=== PATIENT | female | born 1940 | race Caucasian/White ===

== ENCOUNTER 2022-02-12 23:04 | Outpatient (REF) | payer MEDICARE, BC, SELFPAY ==
[2022-02-13 01:40] LABS: Free T4 Free Thyroxine* 1.82 ng/dL (0.70-1.85)
== END 2022-02-12 23:05 | disposition home or self-care (01) ==
LOC: NPINS 23:04
PROVIDERS: PCP Family Medicine
DX: E03.9 Hypothyroidism, unspecified (principal)
CPT/HCPCS: 84439; 84443

== ENCOUNTER 2022-05-13 13:55 | Outpatient (CLI) | payer MEDICARE, BC, SELFPAY ==
--- OUTSIDE RECORDS SUMMARY | 2022-05-13 13:59 | XMS_ITS ---
:1940 Author Care Team Providers Name Role Phone Charlotte Smith Primary Care Provider Unavailable Allergies Code Code System Name Reaction Severity Status Onset Alendronate ? ? Active ? 723 RxNorm Amoxicillin ? ? Active ? 1191 RxNorm Aspirin ? ? Active ? 69603 RxNorm Atorvastatin ? ? Active ? 2551 RxNorm Ciprofloxacin ? ? Active ? 2582 RxNorm Clindamycin ? ? Active ? 4099 RxNorm Estrogens, Conjugated ? ? Active ? 5487 RxNorm Hydrochlorothiazide ? ? Active ? Losartan ? ? Active ? 6918 RxNorm Metoprolol ? ? Active ? [id number] RxNorm Myrbetriq Swelling ? Active ? 7258 RxNorm Naproxen ? ? Active ? Nitroimidazoles ? ? Active ? Oxybutynin Dizziness ? Active ? Penicillins Itching ? Active ? Sambucus Elderberry Immune ? ? Act kalyan ? Sulfa (Sulfonamide ? ? Active ? Antibiotics) 35062 RxNorm Sulindac ? ? Active ? 44808 RxNorm Tetracycline ? ? Active ? Notes: Sulfa Cholecalciferol Blood Group Specific Substance Medications Name Status Start Date Stop Date ? ? benzonatate 100 mg capsule Active ? Not a vailable TAKE ONE OR TWO CAPSULES BY MOUTH THREE TIMES DAILY NEEDED betamethasone dipropionate 0.05 % topical ointment Completed ? 11/12/2021 APPLY TOPICALLY TO THE AFFECTED AREA(S) TWICE DAILY FOR 7 DAYS, THEN EVERY OTHER DAY FOR 7 DAYS, THEN 2-3 TIMES PER WEEK. buspirone Completed ? 08/03/2021 buspirone 5 mg tablet Active ? Not availa ble TAKE ONE TABLET BY MOUTH THREE TIMES DAILY calcium 166.75 mg-vit D3 166.75 unit-vit C-vit K2-minerals capsu le Active ? Not available Take by oral route. cephalexin 500 mg capsule Completed ? 2021 TAKE 1 CAPSULE BY MOUTH TWICE DAILY clobetasol 0.05 % topical ointment Active ? Not available APPLY 1GM TWICE WEEKLY As Needed for lichen sclerosis compounded medication Active ? Not availa ble Estriol Vaginal Cream 0.1% (1mg/mL) 1 fingerful topically 3 night/week compounded medication Active ? Not availa ble Estriol Vaginal Cream 0.1% (1mg/mL) 1 fingerful topically 3 night/week cyclosporine 0.05 % eye drops in a dropperette Active ? Not available Place 1 Drop into both eyes every 12 hours. diltiazem 120 mg tablet Active ? Not avai lable Take 1 tablet 3 times a day by oral route. diltiazem CD 240 mg capsule,extended release 24 hr Active ? Not available TAKE 1 CAPSULE BY MOUTH ONE TIME DAILY fluocinolone Active ? Not available fluocinonide 0.05 % topical cream Active ? Not available APPLY 1 GRAM TOPICALLY TO RASH ON LEGS DAILY NEEDED fosfomycin tromethamine 3 gram oral packet Active ? Not available take 1 pack mixed in 6 oz of water; repeat in 72 hours. furosemide 20 mg tablet Active ? Not avai lable Gemtesa 75 mg tablet Active ? Not availab le TAKE 1 TABLET BY MOUTH ONE TIME DAILY levothyroxine Completed ? 08/03/2021 lorazepam Completed ? 08/03/2021 lorazepam 0.5 mg tablet Active ? Not avai lable TAKE 1/2 TABLET BY MOUTH TWICE DAILY NEEDED Miralax 17 gram oral powder packet Active ? Not available Take 1 packet every day by oral route. Myrbetriq 50 mg tablet,extended release Completed ? 11/12/2021 1 tablet po daily nitrofurantoin monohydrate/macrocrystals 100 mg capsule Complete d ? 08/03/2021 TAKE ONE CAPSULE BY MOUTH TWICE DAILY FOR 7 DAYS omeprazole Completed ? 08/03/2021 omeprazole 20 mg capsule,delayed release Active ? Not available TAKE 1 CAPSULE BY MOUTH ONE TIME DAILY pilocarpine 1 % eye drops Completed ? 2021 INSTILL 1 DROP INTO AFFECTED EYE(S) BY OPHTHALMIC ROUTE EVERY 1 2 HOURS pilocarpine 5 mg tablet Active ? Not avai lable TAKE ONE TABLET BY MOUTH THREE TIMES DAILY prednisone Completed ? 08/03/2021 prednisone 10 mg tablet Active ? Not avai lable TAKE ONE TABLET BY MOUTH EVERY OTHER DAY Probiotic Active ? Not available Prolia 60 mg/mL subcutaneous syringe Active ? Not available INJECT CONTENTS OF 1 SYRINGE (60 MG) SUBCUTANEOUSLY ONCE EVERY SIX MONTHS. Synthroid 112 mcg tablet Active ? Not dre ilable TAKE 1 TABLET BY MOUTH ONE TIME DAILY Theracran 650 mg capsule Active ? Not dre ilable Take 1 capsule every day by oral route. valacyclovir 1 gram tablet Completed ? 08/03 TAKE ONE TABLET BY MOUTH THREE TIMES DAILY warfarin Completed ? 08/03/2021 warfarin 2.5 mg tablet Active ? Not avail able TAKE 1 TABLET BY MOUTH ONE TIME DAILY Problems Name Status Onset Date Source ? 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 Hyperlipidemia Active 04/15/2020 ? 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 Gastroesophageal Reflux Disease Active 04/15/2020 ? Procedures Date Name Performed by ? 09/17/2019 Implant Neuroelectrodes Information not available Notes: 09/17/2019 - IMPLANT NEUROELECT RODES 11/28/2018 Insert Bladder Catheter Information not available Notes: 11/28/2018 - INSERT BLADDER CAT HETER 11/13/2014 Colonoscopy Information not avai lable 11/28/2008 Total Hip Arthroplasty Information not a vailable Notes: 11/28/2008 - TOTAL HIP ARTHROPL ASTY 11/29/1999 Unlisted Procedure Breast Information no t available Notes: 11/29/1999 - BREAST SURGERY PRO CEDURE ? Appendectomy Add-on Information not avai [facility] Notes: APPENDECTOMY ADD-ON Results Lab Results Date Name Specimen Result Interpretation Description Value Range Status Address ? 09/14/2021 Urinalysis, UR ? Color yellow yellow Final [place] [facility]: [address] ? ? UR ? Appearance clear clear Final [place] [facility]: [address] ? ? UR ? Glucose negative negative Final [place] [facility] mg/dL mg/dL [facility]: [address] [address], [place] ? ? UR ? Bilirubin negative negative Final [place] [facility]: [address] [address], [place] ? ? UR ? Ketones negative negative Final [place] [facility] mg/dL mg/dL [facility]: [address] [address], [place] ? ? UR ? Sp. [place] 1.010 1.010-1.0 Final [place] [facility]: [address] [address], [place] ? ? UR ? pH -[facility] 6.0 5.0-8.0 Final [place] [facility]: [address] [address], [place] ? ? UR ? Protein negative negative Final [place] [facility] mg/dL mg/dL [facility]: [address] [address], [place] ? ? UR ? Urobilinogen 0.2 normal Final [place] [facility]: [address] [address], [place] ? ? UR ? Nitrites negative negative Final [place] [facility]: [address] [address], [place] ? ? UR ABNORMAL Blood small negative Final [place] [facility]: [address] ? ? UR ? Leukocytes negative negative Final [place] [facility]: [address] [address], [place] ? ? UR ? Performed by carlitos Ruiz ? Final [place] [facility] [address] [address], [place] ? ? UR ? Total Urine 20cc /mL ? Final [place] Volume (mL) [facility]: [address] 09/14/2021 Urinalysis, ? U-WBC 0 - 2 0 - 2 Final [place] Microscopic [hpf] [hpf] [facility]: [address] ? ? ? U-RBC 0 - 2 0 - 2 Final [place] [hpf] [hpf] [facility]: [address] ? ? ABNORMAL Bacteria small negative Final [place] [hpf] [hpf] [facility]: [address] ? ? ? Squamous Epi small negative, Final [place] /lpf small Urology - /[facility]: [address] 08/03/2021 Urinalysis, UR ? Color yellow yellow Final [place] Dipstick [facility]: [address] ? ? UR ? Appearance clear clear Final [place] [facility]: [address] [address], [place] ? ? UR ? Glucose negative negative Final [place] [facility] mg/dL mg/dL [facility]: [address] [address], [place] ? ? UR ? Bilirubin negative negative Final [place] [facility]: [address] [address], [place] ? ? UR ? Ketones negative negative Final [place] [facility] mg/dL mg/dL [facility]: [address] [address], [place] ? ? UR ? Sp. [place] 1.010 1.010-1.0 Final [place] [facility]: [address] [address], [place] ? ? UR ? pH -[facility] 5.5 5.0-8.0 Final [place] [facility]: [address] ? ? UR ? Protein negative negative Final [place] [facility] mg/dL mg/dL [facility]: [address] [address], [place] ? ? UR ? Urobilinogen 0.2 normal Final [place] [facility]: [address] [address], [place] ? ? UR ? Nitrites negative negative Final [place] [facility]: [address] [address], [place] ? ? UR ABNORMAL Blood small negative Final [place] [facility]: [address] [address], [place] ? ? UR ABNORMAL Leukocytes trace negative Final [place] [facility]: [address] ? ? UR ? Performed by aislinn Ingram ? Final [place] [facility]: [address] [address], [place] ? ? UR ? Total Urine 20 /mL ? Final [place] Volume (mL) [facility]: [address] [place] [address] 08/03/2021 Urinalysis, ? U-WBC 0 - 2 0 - 2 Final [place] Microscopic [hpf] [hpf] [facility]: [address] ? ? ? U-RBC 0 - 2 0 - 2 Final [place] [hpf[facility]hpf[facility] [address] [address], [place] ? ? ABNORMAL Bacteria small negative Final [place] [hpf] [hpf] [facility]: [address] [facility] [address], [place] ? ? ? Squamous Epi small negative, Final [place] [facility] small [facility]: [address] [place] [address], [place] Past Encounters 04/09/2022 Overactive Bladder Charlotte Smith MD: [address] [place] [phone], Ph. 11/12/2021 Overactive Bladder; Urge Incontinence of Urine; Nocturia Afsaneh Bui PA: [address] [place] [phone], Ph. 09/14/2021 Overactive Bladder; Urge Incontinence of Urine; Nocturia Afsaneh Bui PA: [address] [place] [phone], Ph. 09/14/2021 Overactive Bladder Charlotte Smith MD: [address] [place] [phone], Ph. 08/03/2021 Overactive Bladder; Urge Incontinence of Urine; Nocturia Charlotte Smith MD: [address] [place] [phone], Ph. 11/26/2020 Overactive Bladder; Nocturia Charlotte Smith MD: [address] [place] [phone], Ph. 11/11/2020 Overactive Bladder; Urge Incontinence of Urine Charlotte Smith MD: [address] [facility], [address] [phone], Ph. Social History Tobacco Smoking Status Never Smoker Vaccine List Vaccine Type pneumococcal conjugate PCV 13 07/04/2017 Plan of Care Patient Instructions Test each program for at least 2 weeks, adjusting amplitude as needed. May remain on a program as long as it is effective. Re turn as needed for reprogramming. Test each program for at least 2 weeks, adjusting amplitude as needed. May remain on a program as long as it is effective. Re turn as needed for reprogramming. Test each program for at least 2 weeks, adjusting amplitude as needed. May remain on a program as long as it is effective. Re turn as needed for reprogramming. Reminders Provider Appointments None recorded. ? ? Lab None recorded. ? ? Referral None recorded. ? ? Procedures None recorded. ? ? Surgeries None recorded. ? ? Imaging None recorded. ? ? Vitals 04/09/2022 11:00AM PROCEDURE 45 Height Weight BMI 5 ft 1 in 147 lbs 27.8 kg/m2 11/12/2021 10:30AM ESTABLISHED VIDEO VISIT 30 Height Weight BMI 5 ft 1 in 147 lbs 27.8 kg/m2 09/14/2021 09:30AM ESTABLISHED 30 Height Weight BMI 5 ft 2.5 in 147 lbs 26.5 kg/m2 09/14/2021 08:45AM ESTABLISHED 45 Height Weight BMI 5 ft 2.5 in 147 lbs 26.5 kg/m2 08/03/2021 10:30AM ESTABLISHED 15 Height Weight BMI 5 ft 2.5 in 151 lbs 27.2 kg/m2 11/26/2020 09:30AM ESTABLISHED 45 Height Weight BMI 5 ft 2.5 in 151 lbs 27.2 kg/m2 11/11/2020 10:30AM ESTABLISHED 15 Height Weight BMI 5 ft 2 in 144 lbs 26.3 kg/m2 05/13/2020 09:00AM POST OP 15 Height Weight BMI 5 ft 2 in 144 lbs 26.3 kg/m2 04/15/2020 09:00AM POST OP 15 Height Weight BMI 5 ft 2 in 144 lbs 26.3 kg/m2
--- OUTSIDE RECORDS SUMMARY | 2022-05-13 13:59 | XMS_ITS | Encounter Summary ---
:1940 Author Reason for Visit Overactive Bladder; Interstim Assessment and Plan 1. Overactive bladder chronic stable Discussion Note Patient states that Gemtesa samples wer e effective, but the rx was too expensive, so she stopped taking. She would like to tr y the Gemtesa again, but wonders of it is ok t take every other day, to spread the pr escription out, and decrease the expense. I will ask MICHELET Blanco. Patient educational handouts: No information available. Plan of Care Patient Instructions Test each [...] ? ? Imaging None recorded. ? ? Medications Name Start Date ? ? benzonatate 100 mg capsule ? TAKE ONE OR TWO CAPSULES BY MOUTH THREE TIMES DAILY A S NEEDED buspirone 5 mg tablet ? TAKE ONE TABLET BY MOUTH THREE TIMES DAILY calcium 166.75 mg-vit D3 166.75 unit-vit C-vit K2-mine rals capsule ? Take by oral route. clobetasol 0.05 % topical ointment ? APPLY 1GM TWICE WEEKLY As Needed for lichen sclerosis compounded medication ? Estriol Vaginal Cream 0.1% (1mg/mL) 1 fingerful topically 3 night/week compounded medication ? Estriol Vaginal Cream 0.1% (1mg/mL) 1 fingerful topically 3 night/week cyclosporine 0.05 % eye drops in a dropperette ? Place 1 Drop into both eyes every 12 hours. diltiazem 120 mg tablet ? Take 1 tablet 3 times a day by oral route. diltiazem CD 240 mg capsule,extended release 24 hr ? TAKE 1 CAPSULE BY MOUTH ONE TIME DAILY fluocinolone ? fluocinonide 0.05 % topical cream ? APPLY 1 GRAM TOPICALLY TO RASH ON LEGS DAILY NEEDE D fosfomycin tromethamine 3 gram oral packet ? take 1 pack mixed in 6 oz of water; repeat in 72 hour s. furosemide 20 mg tablet ? TAKE ONE TABLET BY MOUTH DAILY NEEDED FOR EDEMA Gemtesa 75 mg tablet ? TAKE 1 TABLET BY MOUTH ONE TIME DAILY lorazepam 0.5 mg tablet ? TAKE 1/2 TABLET BY MOUTH TWICE DAILY NEEDED Miralax 17 gram oral powder packet ? Take 1 packet every day by oral route. omeprazole 20 mg capsule,delayed release ? TAKE 1 CAPSULE BY MOUTH ONE TIME DAILY pilocarpine 5 mg tablet ? TAKE ONE TABLET BY MOUTH THREE TIMES DAILY prednisone 10 mg tablet ? TAKE ONE TABLET BY MOUTH EVERY OTHER DAY Probiotic ? Prolia 60 mg/mL subcutaneous syringe ? INJECT CONTENTS OF 1 SYRINGE (60 MG) SUBCUTANEOUSLY O NCE EVERY SIX MONTHS. Synthroid 112 mcg tablet ? TAKE 1 TABLET BY MOUTH ONE TIME DAILY Theracran 650 mg capsule ? Take 1 capsule every day by oral route. warfarin 2.5 mg tablet ? TAKE 1 TABLET BY MOUTH ONE TIME DAILY Medications Administered None recorded. Vitals Height Weight BMI 5 ft 1 in 147 lbs 27.8 kg/m2 Results Lab Results None recorded. Allergies Code Code System Name Reaction Severity Onset Alendronate ? ? ? 723 RxNorm Amoxicillin ? ? ? 1191 RxNorm Aspirin ? ? ? 37200 RxNorm Atorvastatin ? ? ? 2551 RxNorm Ciprofloxacin ? ? ? 2582 RxNorm Clindamycin ? ? ? 4099 RxNorm Estrogens, Conjugated ? ? ? 5487 RxNorm Hydrochlorothiazide ? ? ? Losartan ? ? ? 6918 RxNorm Metoprolol ? ? ? [id number] RxNorm Myrbetriq Swelling ? ? 5465 RxNorm Naproxen ? ? ? Nitroimidazoles ? ? ? Oxybutynin Dizziness ? ? Penicillins Itching ? ? Sambucus Elderberry Immune ? ? ? Sulfa (Sulfonamide Antibiotics) ? ? ? 67477 RxNorm Sulindac ? ? ? 48390 RxNorm Tetracycline ? ? ? Notes: Sulfa Cholecalciferol Blood Group Specific Substance Problems Name Status Onset Date Source ? [...] CEDURE ? Appendectomy Add-on Information not avai lable Notes: APPENDECTOMY ADD-ON Vaccine List Vaccine Type pneumococcal conjugate PCV 13 07/04/2017 Social History Tobacco Smoking Status Never Smoker What is your level of alcohol consumption? None Marital status Has tobacco cessation counseling been provided? N Are you currently employed? N Could you be ? N Are you sexually active? N Preferred Language Emir[place] What was the date of your most recent tobacco screening? 06/2022 Ethnicity Not / What is your level of caffeine consumption? Heavy Do you or have you ever used any other forms of tobacco or N nicotine? Do you use any illicit or recreational drugs? N Race White Recreational Drug Use N What is your relationship status? Functional Status Unknown. Past Encounters 04/09/2022 Overactive Bladder Charlotte Smith MD: [address] [facility] , [address] [phone], Ph. History of Present Illness None recorded. Review of Systems None recorded. Physical Exam None recorded.
--- OUTSIDE RECORDS SUMMARY | 2022-05-13 13:59 | XMS_ITS | Clinical Summary ---
:1940 Author Organization [facility] [place] [address] Care Team Providers Name Role Phone Kd Restrepo MD Unavailable Cody Veliz MD Unavailable Clinic, No Pcp Or Primary Care Provider Unavailable Allergies Active Allergy Reactions Severity Noted Date Comments Amoxicillin 01/19/2007 Aspirin Rash, Itching 01/20/2006 Atorvastatin Myalgia 12/27/2014 Blood-Group Specific Other - Describe In High 09/01/2016 Patient has Substance Comment Field Anti-D. Blood product orders may be delayed. Dra munoz one red top and two purple top tubes for all T ype and Screen/Type and Crossmatch orders. Ciprofloxacin Rash 05/31/2012 Clindamycin Angioedema 06/28/2014 Sulindac Anaphylaxis 04/30/2014 Nitroimidazoles Rash 05/31/2012 Alendronate Sodium Arthralgia 11/30/2017 Hydrochlorothiazide Rash 05/04/2010 Cephalexin Hives 09/22/2020 Losartan Rash 11/08/2014 Nitrofurantoin Flushing, Headache 04/18/2020 Monohyd/M-Cryst Naproxen GI Bleeding 10/11/2006 Oxybutynin Dizziness 03/30/2021 Oxybutynin Chloride Agitation, Anxiety, 01/19/2019 Dizziness, Headache, Nausea Only Penicillins Rash, Itching 01/20/2006 Conjugated Estrogens Rash 04/11/2015 Sulfa (Sulfonamide Itching 01/20/2006 Antibiotics) Tetracycline *Unknown 10/11/2006 Metoprolol Rash 10/10/2014 Cholecalciferol (Vitamin D3) Diarrhea 01/06/2018 Medications Medication Sig Dispensed Refills Start End Status Date Date FOLIC ACID 800 MCG 1 tab daily 0 10/25/19 Active TABIndications: 08 Sicca syndrome (HC) multivitamin (MVI) Take 1 tablet by 0 05/04/20 Active tablet mouth once 10 daily. fluocinonide 0.05% Apply topically 1 Tube 0 12/20/19 Active topical (LIDEX) 0.05 to affected 14 % cream area(s) 2 times daily. LACTOBACILLUS Take 1 capsule 0 A ctive ACIDOPHILUS by mouth once (PROBIOTIC ORAL) daily. clobetasol 0.05% Apply topically 1 Tube 3 01/21/20 Active (TEMOVATE 0.05% daily for 12 17 OINTMENT) 0.05 % weeks, then 3 ointmentIndications: times a week. Lichen sclerosus [employer], For personal 1 Packet 0 01/21/20 A ctive MISCELLANEOUS use. Length: 17 (GRADUATED calf Strength: COMPRESSION 20-30 mmHg STOCKINGS)Indication Circumference in s: Varicose vein of cm: For calf: leg Ankle 22cm, Calf 36cm, polyethylene glycol Daily as needed 0 Active (MIRALAX) 17 g powder for solution calcium Take 1 tablet by 60 tablet 0 12/01/19 Act kalyan carbonate-vitamin mouth 2 times 18 D3, 500 mg-400 daily before units, (OSCAL 500 + meals. D) tabletIndications: Age-related osteoporosis with current pathological fracture, sequela PROLIA 60 mg/mL USE DIRECTED 1 05/29/20 Active injection EVERY SIX MONTHS 18 acetaminophen SR Take 1 tablet by 0 12/31/19 Active (TYLENOL ARTHRITIS mouth every 8 20 PAIN) 650 mg hours if needed. Extended-Release Max tablet acetaminophen dose: 4000mg in 24 hrs. Cranberry 500 mg 1 capsule once a 0 05/26/20 Active capIndications: day. 20 Prediabetes betamethasone Apply 1 Tube 0 05/26/20 Act kalyan dipropionate 0.05% topically to 20 (DIPROSONE 0.05% affected area(s) OINTMENT) 0.05 % one time if ointment needed. Pt uses 2-3 times per week levothyroxine Take 1 tablet by 90 tablet 3 06/18/20 Active (SYNTHROID) 112 mcg mouth before 20 tabletIndications: breakfast. Hypothyroidism (acquired) predniSONE TAKE ONE TABLET 45 tablet 3 06/18/20 Act kalyan (DELTASONE) 10 mg BY MOUTH EVERY 20 tabletIndications: OTHER DAY Mixed connective tissue disease (HC) triamcinolone Apply topically 30 g 0 06/18/20 Active (ARISTOCORT; to affected 20 KENALOG) 0.1 % area(s) twice creamIndications: daily behind the Atopic dermatitis, left ear for 2 unspecified type weeks. warfarin (COUMADIN) Take by mouth 0 11/11/19 Active 2.5 mg 1.25 mg (2.5 mg 21 tabletIndications: x 0.5) every Anticoagulation Fri; 2.5 mg (2.5 monitoring, INR mg x 1) all range 2-3, Pulmonary other days OR as embolism, bilateral directed (HC) busPIRone (BUSPAR) 5 TAKE ONE TABLET 90 Tablet 0 11/21/19 Active mg BY MOUTH THREE 21 tabletIndications: TIMES DAILY Anxiety omeprazole TAKE ONE CAPSULE 90 Capsule 0 11/21/19 A ctive (PRILOSEC) 20 mg BY MOUTH EVERY 21 Delayed-Release DAY BEFORE A capsuleIndications: MEAL Gastroesophageal reflux disease without esophagitis pilocarpine TAKE ONE TABLET 270 Tablet 0 12/12/19 A ctive (SALAGEN) 5 mg BY MOUTH UP TO 21 tabletIndications: THREE TIMES Diffuse connective DAILY tissue disease (HC) cycloSPORINE Place 1 Drop 60 Each 3 08/24/19 Acti ve (Restasis) 0.05 % into both eyes 22 ophthalmic every 12 hours. emulsionIndications: Dry eye syndrome, unspecified laterality dilTIAZem CD Take 1 Capsule 90 Capsule 3 04/23/20 A ctive (CARDIZEM CD) 240 mg (240 mg) by 22 extended release 24 mouth once hr daily. capsuleIndications: Essential hypertension furosemide (LASIX) Take 1 Tablet 90 Tablet 3 04/23/20 Active 20 mg (20 mg) by mouth 22 tabletIndications: every morning. SOB (shortness of breath), Nonrheumatic mitral valve regurgitation dilTIAZem CD Take 1 Capsule 90 Capsule 3 03/30/20 10// D iscontinued (CARDIZEM CD) 240 mg (240 mg) by 21 022 (Reorder extended release 24 mouth once (E-cancel not hr daily. sent)) capsuleIndications: Essential hypertension furosemide (LASIX) Take 1 Tablet 90 Tablet 3 03/30/20 Discontinued 20 mg (20 mg) by mouth 21 022 (Re order tabletIndications: every morning. 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 Pulmonary embolism, bilateral 04/10/2015 Overview: 03/06/2001 Dyslipidemia 10/23/2014 Mixed connective tissue disease 08/26/2014 Osteopenia 12/06/2012 Overview: DEXA 07/02/19: T-scores AP: 0.2, LFN -1. 4, RFN N/A. FRAX 27.3% hip FRAX 6.5%. Unable to repeat DEXA due to Medicare until 01/2019. Hhistory of vertebral compression fracture. On chronic prednisone and Prolia. Continue Prolia and repeat in 2 years. Lichen sclerosus 12/06/2012 SOB (shortness of breath) on exertion 11/17/2010 Benign neoplasm of colon 07/24/2009 Overview: Colonoscopy 07/2009 polyps repeat in 5 ye ars Colonoscopy 11/2014 polyps repeat in 5 ye ars Impaired fasting glucose 05/06/2008 Diverticulitis of colon (without mention of hemorrhage ) 02/03/2007 Overview: Colonoscopy 03/2019 polyp, normal biopsie s, repeat in 5 years Unspecified essential hypertension 10/11/2006 Chronic lymphocytic thyroiditis 10/11/2006 Senile nuclear sclerosis 01/20/2006 Overview: both Esophageal reflux Resolved Problems Problem Noted Date Resolved Date Anticoagulation monitoring, INR range 2-3 [Z79.01]; [place] 12/29/2020 Target 2.5-3.0 Pessary maintenance 02/25/2016 09/28/2019 Anticoagulation monitoring, goal range 2.0-2.6 09/19/2013 01/09/2018 Abnormal stress test 11/17/2010 12/18/2010 Routine general medical examination at [facility] 010 09/28/2019 facility Overview: Normal CT angiogram 11/2010 Hip pain 05/06/2008 07/09/2009 Onychomycosis 05/06/2008 08/27/2008 HX OF VENOUS THROMBOSIS AND EMBOLISM 11/09/200611/2012 Bilateral pulmonary embolism 10/11/2006 11/18/2017 AFTERCARE, LONG-TERM USE, MEDICATIONS NEC-PLAQUENIL 10/22/2003 Encounters Date Type Specialty Care Team Description 04/23/2022 Office Visit Adelaide Grimes Follow Up (Nj bee follow MD Nael up, DX: Moderat e mitral regurgitation. No records.) 04/23/2022 Travel 04/20/2022 Travel 03/30/2022 Hospital Encounter Adelaide Grimes SOB (sh ortness of breath); MD Nael Nonrheumatic mi tral valve regurgitation 03/30/2022 Travel 02/24/2022 Procedure Only Testing (OCT /VF and results) 02/24/2022 Travel 02/21/2022 Travel 02/18/2022 Office Visit Tomas Page, Eye Exa m (CEE/ocular OD health exam) 02/18/2022 Travel 02/15/2022 Travel from Last 3 Months Immunizations Name Administration Dates Next Due AMB INFLUENZA IIV3 (AGE 65+ YRS) PF (Flu 03/23/2017 Clinic Only) AMB Influenza, IIV3 (Age >=3 years) 04/08/2009 Preserve Free (Flu Clinic Only) AMB Influenza, IIV3 (Age >=3 years)(Flu 04/06/2013, 04/16/20 11, 04/24/2008 Clinic Only) COVID-19 vaccine ([employer] 09/02/2020, 08/12/2020 30mcg/0.3mL) PF, MDV Influenza A (H1N1), Inactivated (Age >=3 07/09/2009 Years) Influenza, High-dose Inactivated 04/05/2016, 04/16/2015, Influenza, IIV3 (Age >=3 years) 04/19/2012, 03/25/2010, 11/0 01/2007 Influenza, Inactivated AIIV4 (Age 65+ 03/20/2020 Years) Preserv Free Influenza, Inactivated IIV3 (Age 65+ 04/03/2019, 03/02/2018 Years) Preserv Free Pneumococcal Poly,23-Valent (Pneumovax) 10/15/2005, 04/11/19 97 Pneumococcal conj 13-Valent (Prevnar 13) 07/19/2014 Td (Age >=7 Years) 02/02/2004, 06/15/1995 Td, Preservative Free (age >= 7 Years) 01/29/2020 Tdap 11/02/2010 Zoster (Shingrix-RZV, recombinant) 09/27/2018, 07/06/2018 Family History Medical History Relation Name Comments Cancer-colon Father Arthritis Maternal Grandmother Heart Disease Maternal Grandmother Thyroid Disease Maternal Grandmother Arthritis Mother Glaucoma Mother Heart Disease Mother Hypertension Mother Thyroid Disease Mother Genetic Other GLAUCOMA-mother/ mgf - POLYCYTHEMIA VERA-son~Diabete s-Son~cancer-father~heart disease-grandfat her~HTN-mother Cancer-breast Paternal Grandmother Stroke Son 3 Alcoholism Son 4 Diabetes Son 5 Seizures Son 6 Relation Name Status Comments Father Maternal Grandfather Maternal Grandmother Mother Other Paternal Grandfather Paternal Grandmother Son 1 Alive Son 2 Alive Son 3 Son 4 Son 5 Son 6 Social History Tobacco Use Types Packs/Day Years Used Date Never Smoker 0 Smokeless Tobacco: Never Used Tobacco Cessation: Counseling Given: Yes Alcohol Use Standard Drinks/Week Comments No 0 (1 standard drink = 0.6 oz pure alcoho l) Sex Assigned at Date Recorded Not on file COVID-19 Exposure Response Date Recorded In the last 10 days, have you been in contact with No / Unsu re 04/23/2022 7:53 AM CDT someone who was confirmed or suspected to have Coronavirus/COVID-19? Obstetrics History Para Term AB IAB SAB Ectopic Multiple Living Live Births 2 2 2 0 0 0 0 0 0 2 2 Date Outcome GA Total Labor/2nd/3rd Weight Sex Delivery Anes PTL Toña A 1 A5 Name Clin Labor 03/15 Term M Vag Jinny /1960 ng 03/23 Term M Vag Jinny /1962 ng Last Filed Vital Signs Vital Sign Reading Time Taken Comments Blood Pressure 142/64 04/23/2022 8:11 AM CDT Pulse 65 04/23/2022 8:11 AM CDT Temperature 36.2 ??C (97.1 ??F) 04/23/2022 8:11 AM CDT Respiratory Rate 18 04/23/2022 8:11 AM CDT Oxygen Saturation 96% 04/23/2022 8:11 AM CDT Inhaled Oxygen Concentration - - Weight 68.5 kg (151 lb 1.6 oz) 04/23/2022 8:11 AM CDT Height 154.9 cm (5' 1) 04/23/2022 8:11 AM CDT Body Mass Index 28.55 04/23/2022 8:11 AM CDT Plan of Treatment Health Maintenance Due Date Last Done Comments COVID-19 vaccine series (4 - 06/09/2021 04/14/2021, 021, Booster for Pfizer series) 08/12/2020 Depression screening for age 12+ 06/18/2021 06/18/2020, , 06/18/2020, Additional history exists Medicare Wellness for age 65+ 06/18/2021 06/18/2020, 2018, 06/28/2018, Additional history exists Influenza for age 65+ 03/04/2022 03/20/2020, 04/03/2019, 03/02/2018, Additional history exists BMI (ht and wt on same day) for 04/23/2023 04/23/2022, 03/05, age 18+ 06/18/2020, Additional history exists Tetanus booster 01/28/2030 01/29/2020, 11/02/2010, 02/02/2004, Additional history exists Tdap Completed 11/02/2010 Pneumococcal series for age 65+ Completed 07/19/2014, 10/02, 04/11/1997 Zoster (shingles) series for age Completed 09/27/2018, 09/2018 50+ DEXA/DXA scan for age 65+ Completed 07/02/2019, 01/13/2016 , 12/18/2010 Medical Devices Implanted Type Area Deliverer Outside Device Shelf Model / Identifier Expiration Serial / Date Lot Stimulator 7.7mm 14cc Interstim Ii - [id number] N/A: Sacr um Med[employer]onic Pain 03/31/2021 [id number] / Implanted: Qty: 1 on 04/01/2020 by Nathan solis, Charlotte Anne MD at [facility] Therapy N [id number] / Description: PIN [id number] Procedures Procedure Name Priority Date/Time Associated Diagnosis Comme nts ECHO COMPLETE WO Routine 03/30/2022 9:19 AM SOB (shortness of Results for this CONTRAST CDT breath) procedure are in Nonrheumatic mitral the resu lts valve regurgitation section. from Last 3 Months Results ECHO COMPLETE WO CONTRAST (03/30/2022 9:19 AM CDT) P athologist Signature EJECTION 60-65% PROSOLV FRACTION Anatomical Region Laterality Modality HEART Ultrasound Specimen (Source) Anatomical Collection Method Collection Time Re ceived Time Location / / Volume Laterality 03/30/2022 8:36 AM CDT Narrative 03/30/2022 10:58 AM CDT [facility] [address], [place] [address] Main: ? Transthoracic Echo Report RODERICK HEATON Aysha ID: [id number] Age: 81 : 0 1940 Ordering Provider: ADELAIDE GRIMES Exam Date: 03/30/2022 08:36 Gender: F S onographer: [facility] Height: 63 in BS A: 1.72 m?? BP: 138 / 78 Weight: 152 lbs BMI: 26.9 kg/m?? HR: 61 Location: [facility] Rhythm: Normal Sinus Rhythm, With PVC Procedure Components: 2D imaging, Color Doppler, Spectral Doppler Indications: SOB (shortness of breath); Nonrheumatic mitral valve regurgitation Technical Quality: Adequate Contrast: N one Final Conclusion Previous Study: 2020 1. 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 2. ??Normal left ventricular chamber si ze; mild eccentric increased basal septal wall thickness (11-12 mm). 3. ??Normal left ventricular systolic f unction; visually estimated ejection fraction 60-65%. 4. ??No focal regional wall motion abno rmalities. 5. ??Normal right ventricular chamber s ize and systolic function; minimum estimated right ventricular systolic pressure 35 mmHg. 6. ??Moderate to severe left atrial enl argement. 7. ??Mild tricuspid valve regurgitation . Compared, by report only secondary to t echnical limitations, to previous study dated 03/20/2021, there has been no significant interval change. Estimated EF: 60-65% FINDINGS Left Ventricle Normal left ventricular chamber size. ??Mild eccentric increased basal septal wall thickness (11 mm). ??Aberrant basal septal chordal insertion. ??Yany l left ventricular systolic function. Estimated left ventricular ejection fraction is 60-65%. No regional wall mo tion abnormalities. Diastolic Function Indeterminate left v entricular diastolic function. Right Ventricle Normal right ventricula r chamber size. Normal right ventricular systolic function. Estimated right ventricular systolic pressure is 35 mmHg. Left Atrium Moderate to severe left atr ial enlargement. Left atrial volume index is 44.6 ml/m??. Right Atrium Normal right atrial size. Atrial Septum No obvious evidence of in ter-atrial shunt by color flow Doppler. Aortic Valve Trileaflet aortic valve. A ortic valve sclerosis without stenosis. No aortic valve regurgitation. Mitral Valve Posterior mitral annular c alcification. ??Thickened/redundant, i.e. myxomatous, mitral valve leaflets with predominantly posterior leaflet prolaps e. ??Mild to moderate (central) mitral valve regurgitation. ??No mitral valve stenosis. Tricuspid Valve Normal tricuspid valve. ??Mild tricuspid valve regurgitation. Pulmonic Valve Normal pulmonary valve. No pulmonary valve stenosis. Trivial pulmonary valve regurgitation. Pericardium No pericardial effusion. Aorta Aortic sinus of Valsalva is yany l in size (2.9 cm, ZScore = -2). Normal indexed ascending aorta dimension (3.3 cm, 1.9 cm/m??). Inferior Vena Cava Normal inferior vena cava with normal inspiratory collapse. MEASUREMENTS ??(Male / Female) Normal V alues 2D MEASUREMENTS AND LV FUNCTION IVS Diastolic Thickness ? 1.11 cm ? < 1.1 cm / < 1.0 cm LV Diastolic Diameter PLAX ?4 .9 cm ?4.2 - 5.9 / 3.9 - 5.3 cm LV Diastolic Diameter Index ? 2. 85 cm/m?? LVPW Diastolic Thickness ? 0.977 cm ?< 1.1 cm / < 1.0 cm LV Systolic Diameter PLAX ? 2 .72 cm LV Systolic Diameter Index ?1 .58 cm/m?? LVOT Diameter ? 2.05 cm LVOT Cardiac Output ? 4.26 l/min LVOT Cardiac Index ?2.41 l/min??m?? LVOT Stroke Volume ?69.8 ml Stroke Volume Index ? 39.5 ml/m?? LA Volume MOD BP ?76.7 ml LA Volume Index MOD BP ?44.6 ml/m?16 - 34 ml/m?? LV Mass ? 187 g LV Mass Index ? 107 g/m?? Sinuses of Valsalva Diameter(d) ?? 2.9 cm Ascending Aorta Diameter(s) ? 3. 3 cm Ascending Aorta Index ? 1.92 cm/m?? M MODE TAPSE MM ?2.3 cm DIASTOLOGY Mitral E Point Velocity ? 0.879 m/sec ? 0.70 - 1.02 m/sec Mitral A Point Velocity ? 1.16 m/sec ?0.06 - 1.06 m/sec Mitral E to A Ratio ? 0.758 ? 1.1 - 2.1 MV Deceleration Time ?186 msec ?167 - 231 msec LV E' Lateral Velocity ?0.062 m/sec Mitral E to LV E' Lateral Ratio ?? 14.2 LV E' Septal Velocity ? 0.0642 m/sec Mitral E to LV E' Septal Ratio ?13. 7 AORTIC VALVE AV Peak Velocity ?1.34 m/sec ?< 2.0 m/sec AV Peak Gradient ?7.18 mmHg AV Mean Gradient ?4 mmHg AV Velocity Time Integral ? 3 4.5 cm LVOT Peak Velocity ?0.953 m/sec LVOT Velocity Time Integral ? 21 .1 cm AV Area Cont Eq vti ? 2.02 cm?? AV Area Cont Eq pk ?2.35 cm?? AV Dimensionless Index ?0.613 MITRAL VALVE MR Peak Velocity ?541 cm/sec MR Velocity Time Integral ? 1 39 cm MV Pressure Half Time ? 54.7 msec MV Area PHT ? 4.02 cm?? MR ERO PISA ? 0.113 cm?? TRICUSPID VALVE AND ESTIMATED PRESSURES TR Peak Velocity ?2.84 m/sec TR Peak Gradient ?32.3 mmHg Right Atrial Pressure ? 3 mmHg Right Ventricular Systolic Press ??35.3 mmHg HCM DATA LVOT YUDITH (r) ?3.63 mmHg Aortic Root ZScore: -1.96 Nael Mobley MD [facility] Accredited Site (Electronically Signed) Final Date: 30 March 2022 10:58 ICD-10 Codes: R06.02; I34.0 Procedure Note Nael Mobley MD - 03/30/2022Fo rmatting of this note might be different from the original. [facility] [address], [place] [address] Main: Transthoracic Echo Report RODERICK HEATON ID: [id number] Age: 81 : 0 1940 Ordering Provider: ADELAIDE GRIMES Exam Date: 03/30/2022 08:36 Gender: F S onographer: [facility] Height: 63 in BS A: 1.72 m?? BP: 138 / 78 Weight: 152 lbs BMI: 26.9 kg/m?? HR: 61 Location: [facility] Rhythm: Normal Sinus Rhythm, With PVC Procedure Components: 2D imaging, Color Doppler, Spectral Doppler Indications: SOB (shortness of breath); Nonrheumatic mitral valve regurgitation Technical Quality: Adequate Contrast: N one Final Conclusion Previous Study: 2020 1. Myxomatous mitral valve leaflets wit h predominantly posterior leaflet prolapse; mild to moderate (central) regurgitation and no stenosis. 2. Normal left ventricular chamber size ; mild eccentric increased basal septal wall thickness (11-12 mm). 3. Normal left ventricular systolic fun ction; visually estimated ejection fraction 60-65%. 4. No focal regional wall motion abnorm alities. 5. Normal right ventricular chamber siz e and systolic function; minimum estimated right ventricular systolic pressure 35 mmHg. 6. Moderate to severe left atrial enlar gement. 7. Mild tricuspid valve regurgitation. Compared, by report only secondary to t echnical limitations, to previous study dated 03/20/2021, there has been no significant interval change. Estimated EF: 60-65% FINDINGS Left Ventricle Normal left ventricular chamber size. Mild eccentric increased basal septal wall thickness (11 mm). Aberrant basal septal chordal insertion. Normal left ventricular systolic function. Estimated left ventricular ejection fraction is 60-65%. No regional wall mo tion abnormalities. Diastolic Function Indeterminate left v entricular diastolic function. Right Ventricle Normal right ventricula r chamber size. Normal right ventricular systolic function. Estimated right ventricular systolic pressure is 35 mmHg. Left Atrium Moderate to severe left atr ial enlargement. Left atrial volume index is 44.6 ml/m??. Right Atrium Normal right atrial size. Atrial Septum No obvious evidence of in ter-atrial shunt by color flow Doppler. Aortic Valve Trileaflet aortic valve. A ortic valve sclerosis without stenosis. No aortic valve regurgitation. Mitral Valve Posterior mitral annular c alcification. Thickened/redundant, i.e. myxomatous, mitral valve leaflets with predominantly posterior leaflet prolaps e. Mild to moderate (central) mitral valve regurgitation. No mitral valve stenosis. Tricuspid Valve Normal tricuspid valve. Mild tricuspid valve regurgitation. Pulmonic Valve Normal pulmonary valve. No pulmonary valve stenosis. Trivial pulmonary valve regurgitation. Pericardium No pericardial effusion. Aorta Aortic sinus of Valsalva is yany l in size (2.9 cm, ZScore = -2). Normal indexed ascending aorta dimension (3.3 cm, 1.9 cm/m??). Inferior Vena Cava Normal inferior vena cava with normal inspiratory collapse. MEASUREMENTS (Male / Female) Normal Diamond ues 2D MEASUREMENTS AND LV FUNCTION IVS Diastolic Thickness 1.11 cm < 1.1 c m / < 1.0 cm LV Diastolic Diameter PLAX 4.9 cm 4.2 - 5.9 / 3.9 - 5.3 cm LV Diastolic Diameter Index 2.85 cm/m?? LVPW Diastolic Thickness 0.977 cm < 1.1 cm / < 1.0 cm LV Systolic Diameter PLAX 2.72 cm LV Systolic Diameter Index 1.58 cm/m?? LVOT Diameter 2.05 cm LVOT Cardiac Output 4.26 l/min LVOT Cardiac Index 2.41 l/min??m?? LVOT Stroke Volume 69.8 ml Stroke Volume Index 39.5 ml/m?? LA Volume MOD BP 76.7 ml LA Volume Index MOD BP 44.6 ml/m?? 16 - 34 ml/m?? LV Mass 187 g LV Mass Index 107 g/m?? Sinuses of Valsalva Diameter(d) 2.9 cm Ascending Aorta Diameter(s) 3.3 cm Ascending Aorta Index 1.92 cm/m?? M MODE TAPSE MM 2.3 cm DIASTOLOGY Mitral E Point Velocity 0.879 m/sec 0.7 0 - 1.02 m/sec Mitral A Point Velocity 1.16 m/sec 0.06 - 1.06 m/sec Mitral E to A Ratio 0.758 1.1 - 2.1 MV Deceleration Time 186 msec 167 - 231 msec LV E' Lateral Velocity 0.062 m/sec Mitral E to LV E' Lateral Ratio 14.2 LV E' Septal Velocity 0.0642 m/sec Mitral E to LV E' Septal Ratio 13.7 AORTIC VALVE AV Peak Velocity 1.34 m/sec < 2.0 m/sec AV Peak Gradient 7.18 mmHg AV Mean Gradient 4 mmHg AV Velocity Time Integral 34.5 cm LVOT Peak Velocity 0.953 m/sec LVOT Velocity Time Integral 21.1 cm AV Area Cont Eq vti 2.02 cm?? AV Area Cont Eq pk 2.35 cm?? AV Dimensionless Index 0.613 MITRAL VALVE MR Peak Velocity 541 cm/sec MR Velocity Time Integral 139 cm MV Pressure Half Time 54.7 msec MV Area PHT 4.02 cm?? MR ERO PISA 0.113 cm?? TRICUSPID VALVE AND ESTIMATED PRESSURES TR Peak Velocity 2.84 m/sec TR Peak Gradient 32.3 mmHg Right Atrial Pressure 3 mmHg Right Ventricular Systolic Press 35.3 m mHg HCM DATA LVOT YUDITH (r) 3.63 mmHg Aortic Root ZScore: -1.96 Nael Mobley MD [facility] Accredited Site (Electronically Signed) Final Date: 30 March 2022 10:58 ICD-10 Codes: R06.02; I34.0 Adelaide Grimes MD ECHO ORD from Last 3 Months Insurance Payer Benefit Plan / Subscriber ID Effective Dates Phone Addre ss Type Group MEDICARE PART B MEDICARE PART B [id number] 2005-Presen ATTN: CLAIMS - HB USE ONLY HB ONLY t [address] [facility] [place] [address] MEDICARE PART A MEDICARE PART A [id number] 2005-Presen ATTN: CLAIMS - HB USE ONLY HB ONLY t [address] [facility] [place] [address] MEDICARE - MEDICARE PB [id number] 2005-Presen ATTN : CLAIMS USE ONLY ONLY t [address] [facility] [place] [address] BLUE CROSS BLUE CROSS OF [id number] 2016-Presen [address] [place] [address] Advance Directives Documents on File Type Date Recorded 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 Kd Restrepo MD Endocrinology 11/24/11 Cody Veliz MD Rheumatology 11/24/11
[2022-05-13 14:14] LABS: Hematocrit 42.5 % (33.0-51.0); Hemoglobin* 13.9 gm/dL (12.0-16.0); Mean Corpuscular HGB Conc 33 gm/dL (32-36); Mean Corpuscular Hemoglobin 32 pg (26-34); Mean Corpuscular Volume 97 fL (80-100); Platelet Count* 231 K/uL (140-440); Red Blood Count 4.39 m/uL (4.00-5.20); White Blood Count* 11.34 K/uL (4.50-11.00)
[2022-05-13 14:15] LABS: Slide Review Reflex No
[2022-05-13 14:20] LABS: Appearance Urine Clear (Clear); Bilirubin Urine Negative (Negative); Blood Urine Trace-intact (Negative); Color Urine Yellow (Yellow); Glucose Urine Negative (Negative); Ketones Urine Trace (Negative); Leukocyte Esterase Urine Negative (Negative); Nitrite Urine Negative (Negative); Protein Urine Negative (Negative); Urobilinogen Urine 0.2 (0.2-1.0)
[2022-05-13 14:35] LABS: WBC Urine 0-2 (0-5)
[2022-05-13 22:35] LABS: Albumin* 3.9 g/dL (3.3-5.0); Chloride* 99 mmol/L (96-114)
[2022-05-13 22:36] LABS: Sodium* 135 mmol/L (135-149)
[2022-05-13 22:38] LABS: Aspartate Amino Transferase* 21 U/L (12-35); Bilirubin Total* 0.5 mg/dL (0.1-1.5); Carbon Dioxide* 27 mmol/L (20-32); Creatinine* 1.2 mg/dL (0.5-1.5); Estimated Glomerular Filt Rate 45 ml/min; Total Protein* 6.7 g/dL (6.0-8.3)
[2022-05-13 22:39] LABS: Alanine Aminotransferase* 17 U/L (4-35); Alkaline Phosphatase* 57 U/L (40-150); Blood Urea Nitrogen* 24 mg/dL (7-30); Glucose* 121 mg/dL (60-115)
== END 2022-05-13 13:56 | disposition home or self-care (01) ==
LOC: FRMREF 13:57
PROVIDERS: PCP Family Medicine; Visit Provider Family Medicine
DX: R10.9 Unspecified abdominal pain (principal)
CPT/HCPCS: 80053; 81003; 81015; 85027

== ENCOUNTER 2022-09-01 13:43 | Outpatient (RCR) | payer MEDICARE, BC, SELFPAY ==
--- NOTE | 2022-09-01 15:00 | OT.POTN ---
OT/PT Pre-Op Therapy Note OT/PT Pre-Op Therapy Note Start: 09/01/22 14:42 Freq: Status: Active Protocol: Document 09/01/22 14:44 LCN (Rec: 09/01/22 14:52 LCN Desktop) E-signed By Kirstie Ojeda, OTR/L, CLT Pre-Op Therapy Note Pre-Op Therapy Note Joint L Reverse Total Shoulder Arthroplasty Date of Surgery 09/08/22 Surgeon Mayelin Rios Height 4' 11 Current Functional Status Very mobile, walks with SPC, drives. Manages stairs in basement for laundry and shower. Overall Bilateral Upper Extremity ROM/ R SH FL to 160 , rouches Strength behind back and head w/o pain. L UE FL to 80 degrees AROM, SROM to 110. 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 Pre-Op Therapy Note (Continued) Do You Drive Yes Recovery With Outpatient Outpatient PT Scheduled Yes Date/[facility] & [facility] [place] 3/ Evaluation 16 Preop Exercises Given Yes Fall Prevention Education Given Yes Adaptive Equipment Resources Given Yes Post-Op Therapy Progression Reviewed Yes Readiness for Learning Excellent Teaching Comments Already purchased water bottles (8oz) for her icing machine. Plans to have son/ present for post op training session 8-9 am POD1. Pt educated in TSA precautions , falls prevention, positioning and edema for post -op, and has a suction bar for her basement shower. Pt is most concerned about her bladder urgency from prior bladder issues and is placing extra padding on her surfaces, planned easy access clothing in session w OT. Pt asked insightful questions and returned demonstration of positioning for keeping shoulder precautions.
--- NOTE | 2022-09-01 15:01 | OT.OPGNE ---
OT Outpatient General/Neuro Eval OT Outpatient General/Neuro Eval Start: 09/01/22 14:42 Freq: Status: Active Protocol: Document 09/01/22 14:53 LCN (Rec: 09/01/22 14:57 LCN Desktop) E-signed By Kirstie Ojeda OTCyn/Ayleen, PRITESHT OT Outpatient Evaluation Details Type Type Eval Complexity Low Insurance Information Insurance Information Insurance Information Medicare B Outpatient History/Precautions Medical/Functional History Medical History Reviewed Yes Prior Level of Function/Mobility Both pt and are aging, walking more slowly but both driving. Son lives close. 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 E- Submittable services Oriented Patient Orientation Person,Place,Time,Situation Prior Medical History Prior Medical History PMHX of L MIROSLAVA in 2008, bladder procedures in 09/2019 and 2020 . DVT with PE hx in 2000, now on prophylaxis/Coumadin and compression hose most days . HTN and GERD. Patient Subjective Subjective Patient Subjective Pt is feeling ready for L reverse TSA on 09/09/22. Objective Measures Shoulder Shoulder ROM R SH FL to 160, L to 80 AROM and AA/SROM to 110. Shoulder Strength equal unhairing inspector strength B Home Maintenance Assessment ADL Oral Care Ability Independent Bathing Ability Independent Eating (Feeding) Ability Independent Upper Body Dressing Ability Independent Lower Body Dressing Ability Independent Grooming Ability Independent Toileting Ability Independent Ambulation Ability Independent Home Management Meal Preparation Ability Independent Cleaning Ability Independent Shopping Ability Independent Assessment Assessment Assessment Patsy Beltrán is an active 82 y /o female who is eagerly awaiting her L reverse TSA to address the shoulder pain and ROM limitations she has been having for years. Already purchased water bottles (8oz) for her icing machine. Plans to have son/ present for post op training session 8 -9 am POD1. Pt educated in TSA precautions , falls prevention, positioning and edema for post -op, and has a suction bar for her basement shower. Pt is most concerned about her bladder urgency from prior bladder issues and is placing extra padding on her surfaces, planned easy access clothing in session w OT. Pt asked insightful questions and returned demonstration of positioning for keeping shoulder precautions. Occupational Therapy Treatment Plan - OP Potential Rehabilitation Potential Excellent Set Goals Goals Set with Patient Yes Goals Goals 1) After OT evaluation/ education session, pt will demonstrate understanding of 3 strategies for each of the following: TSA precautions, falls prevention, positioning and edema/pain mgmt. (GOAL MET today) Target Date t Progress met Treatment Plan Treatment Plan Evaluation,Self-Care/Home Management,Education Comment Summary Eval and education session only Certification Certification I Certify That: Therapy Services Provided, Therapy Plan Established, Therapy Plan Reviewed Recertification Information Recertification Information Initial Certification Date 09/01/22 Recertification Due Date 09/01/22 Provider Signature Shows Agreement With POC & Medical Necessity Physician Comment/Change Comment or Changes Physician NPI Number #
== END 2022-09-01 15:08 | disposition home or self-care (01) ==
PROVIDERS: PCP Family Medicine; Visit Provider Orthopaedic Surgery
DX: Z51.89 Encounter for other specified aftercare (principal); M25.512 Pain in left shoulder; I10 Essential (primary) hypertension; R30.9 Painful micturition, unspecified; I34.0 Nonrheumatic mitral (valve) insufficiency; Z79.01 Long term (current) use of anticoagulants; E03.9 Hypothyroidism, unspecified
CPT/HCPCS: 80053; 87086; 97165

== ENCOUNTER 2022-09-07 12:47 | Outpatient (CLI) | payer MEDICARE, BC, SELFPAY ==
--- NOTE | 2022-09-07 13:00 | CRLHL7_ITS ---
For Patients: As a result of the Century Cures Act, medical imaging exams and procedure reports are released immediately into your electronic medical record. You may view this report before your referring provider. If you have questions, please contact your health care provider. INDICATION: left foot pain/swelling. hx DVT. COMPARISON: 04/15/2020 TECHNIQUE: A compression venous ultrasound exam was performed of the left lower extremity using underwood-scale imaging, color Doppler and spectral Doppler analysis. FINDINGS: Sonographic imaging of the left lower extremity demonstrates normal compressibility and color Doppler venous blood flow within the common femoral vein, deep femoral vein, and the proximal greater saphenous vein. Within the thigh, the femoral vein is patent and compressible. At a lower level, the popliteal and posterior tibial veins also show normal compressibility and color Doppler venous blood flow. Limited imaging of the contralateral groin demonstrates a normal spectral waveform and color Doppler venous blood flow within the right common femoral vein. Popliteal cyst measuring 5.1 x 0.7 x 3.0 cm. Incidental subcutaneous edema noted. IMPRESSION: No evidence of deep vein thrombosis within the left lower extremity. Dictated by Yan Stewart MD @ 09/07/2022 1:44:36 PM (Electronically Signed)
== END 2022-09-07 12:48 | disposition home or self-care (01) ==
LOC: US 12:48
PROVIDERS: PCP Family Medicine; Visit Provider Family Medicine
DX: M79.672 Pain in left foot (principal); R22.42 Localized swelling, mass and lump, left lower limb; Z86.718 Personal history of other venous thrombosis and embolism
CPT/HCPCS: 93971

== ENCOUNTER 2022-09-09 09:40 | Day surgery (SDC) | payer MEDICARE, BC, SELFPAY ==
[2022-09-09] VITALS (25 sets, daily range): BP systolic 115–177; BP diastolic 47–114; PULSE 47–92; RESP 14–20; TEMP 36.1–36.9; O2SAT 92–100; BMI 28.6
[2022-09-09] MEDS: ACETAMINOPHEN 500 MG TABLET 1000 MG PO ×3 (10:19→23:10)
[2022-09-09] MEDS: OXYCODONE (CR) 10 MG TAB.ER.12H PO (10:19)
[2022-09-09] MEDS: SODIUM CHLORIDE 0.9 % (FLUSH) 10 ML SYRINGE IVF (10:42)
--- NOTE | 2022-09-09 11:39 | SUR.PREOP ---
TIME?OUT:?1139 PT/RN/MDA?VERIFICATION?OF?SURGICAL?SITE,?PROCEDURE,?AND?CONSENT OBTAINED?PRIOR?TO?INVASIVE?PROCEDURE.
[2022-09-09] MEDS: fentaNYL 100 MCG/2 ML inj IVP (11:41)
[2022-09-09] MEDS: MIDAZOLAM HCL 1 MG/ML inj IVP (11:41)
--- NOTE | 2022-09-09 12:21 | W.ANESCHARGE ---
Anesthesia Charges Start Date/Time Anesthesia Start Date: 09/09/22 Anesthesia Start Time: 12:01 Stop Date/Time Anesthesia Stop Date: 09/09/22 Anesthesia Stop Time: 14:36 Summary Extremes of Age - Over 70 or under 1: MDA
--- NOTE | 2022-09-09 12:22 | P.NB_ITS ---
Nerve Block Nerve Block Time Seen by Provider: 11:42 Date Seen: 09/09/22 Type of block requested by surgeon for post-operative analgesia: supraclavicular Side: left Time out performed: Yes Verification of patient name: Yes Verification of date of : Yes Site marking: site marked Name of person performing procedure: Osman Continuous monitoring Was continuous monitoring of O2 sat, B/P, threat monitoring analyst, recorded every 15 minutes?: Yes Procedure Checklist: sterile prep, needles and gloves Ultrasound guided. Images saved: Yes Medications given in 5ml increments after negative aspiration: Ropivicaine %: 0.5 mL: 15 Needle gauge: 22 Decadron (mg): 10 Precedex (mcg): 25 Patient tolerated procedure well: Yes Block Charges Block Charge (with Pro Fee): Brachial Plexus Use of Ultrasound Machine for Block: Yes- US Guidance/pain block
--- NOTE | 2022-09-09 12:35 | W.ANESCHARGE ---
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
--- NOTE | 2022-09-09 13:40 | CRLHL7_ITS ---
For Patients: As a result of the Cures Act, medical imaging exams and procedure reports are released immediately into your electronic medical record. You may view this report before your referring provider. If you have questions, please contact your health care provider. Indication: Postop Technique: Three views left shoulder Findings/Impression: Hardware from a reverse total left shoulder arthroplasty is in satisfactory position. Bone alignment is normal. No sign of acute fracture. Postop changes are within normal limits. Dictated by Yan Stewart MD @ 09/10/2022 11:16:10 AM (Electronically Signed)
--- NOTE | 2022-09-09 13:46 | P.ORPRC_ITS ---
Procedure Note Date of procedure: 09/09/22 Procedure: PREOPERATIVE DIAGNOSIS: Left shoulder rotator cuff tear arthropathy, AC joint arthrosis POSTOPERATIVE DIAGNOSIS: Left shoulder rotator cuff tear arthropathy, AC joint arthrosis NAME OF OPERATION: Left upper extremity reverse shoulder arthroplasty, open di stal clavicle excision SURGEON: Ariel Rios MD MANAGER STONE: Susan Marquez PA-C, Gilmar Andrea PA-C ANESTHESIA: General endotracheal ESTIMATED BLOOD LOSS: 200 mL COMPLICATIONS: None SPECIMENS: None DRAINS: None PREOPERATIVE ANTIBIOTICS: Ancef 1 grams IMPLANTS: 1. Tornier 25mm x 35 mm baseplate 2. 36mm standard glenosphere 3. 4B humeral stem 4. Low eccentric +0 humeral tray 5. 36mm +6 polyethylene INDICATIONS: The patient is a 82-year-old with a longstanding history of severe, unrelenting left shoulder pain secondary to rotator cuff tear arthropathy. Despite appropriate nonoperative management, including activity modification, anti-inflammatories, [id number] pain medication, physical therapy, and injections they continue to have pain and disability. Operative intervention was offered. The risks, benefits and expected outcomes were discussed in detail. These included but were not limited to: Infection, bleeding, injury to blood vessel or nerve, venous thromboembolism. All questions were answered to their satisfaction. Use of an real estate administrative assistant was necessary throughout the case for patient positioning and safety, soft tissue retraction, and closure. PROCEDURE: General anesthesia was administered. The patient was placed in the lazy beach chair position on the operating room table. The left upper extremity was prepped and draped in the usual sterile fashion. A standard deltopectoral incision was made. Subcutaneous dissection was taken with electrocautery to the deltopectoral interval. The cephalic vein was cauterized and divided We bluntly entered the deltopectoral interval. We freed up the deltoid. The upper 1/3 of the insertion of the pectoralis was divided with cautery. The clavipectoral fascia and CA ligament were divided. The circumflex vessels were controlled with electrocautery. The biceps was dissected out of the bicipital groove, was tagged with a #2 FiberWire suture and divided proximally. Two fiberWire sutures were placed in the subscapularis. The subscap was subperiosteally elevated off of the lesser tuberosity. The humeral head was delivered into the wound. The intramedullary humeral cutting guide was placed. We made the cut at the anatomic neck, in 30? of retroversion. Humeral sounds were used to assess the diameter of the canal. The broach was placed and had good rotational stability. The calcar reamer was used and the protective base plate cover was placed. Attention was then turned to the glenoid. Hohmann retractors were placed posteriorly. The labrum and biceps stump were sharply debrided. The origin of the inferior glenohumeral ligaments were subperiosteally released off of the glenoid. The drill guide was placed. The guide pin was placed in 0? of cephalic tilt. The reamer was used to bleeding bone. The central drill was used x2. The standard base plate was placed. This had excellent purchase. Locking screws x2 were placed. The glenosphere was placed, the set screw was tightened. Attention then returned to the humerus. We placed a low eccentric standard base plate and standard poly. We reduced the shoulder and took it through a range of motion. It was found to be stable with appropriate soft tissue tension. Trial humeral components were removed. The biceps was tenodesed in the bicipital groove with drill holes and our previously placed FiberWire suture. We placed #2 FiberWire sutures in the lesser tuberosity for subsequent subscap repair. We assembled the humeral component on the back table. We placed it in the center of our subscapularis repair sutures and tapped it down to our humeral cut. This had excellent purchase. The shoulder was reduced and again was found to be stable with appropriate soft tissue tension. We did a 3 min dilute Betadine solution soak. We irrigated the wound with 3 L of normal saline via pulse lavage. We repaired the subscapularis to the lesser tuberosity with our previously placed FiberWire sutures. The deltopectoral interval was loosely reapproximated with an 0 Vicryl in an interrupted [id number]-prpsn fashion. Subcutaneous tissues were closed with the 2-0 Vicryl and a running 3-0 Monocryl suture. The skin was sealed with glue. A dry dressing and sling were applied. Sponge and needle counts were correct x2. The patient tolerated the procedure well, there were no apparent complications. They were awakened and extubated in the operating room, taken to the postanesthesia care unit in satisfactory condition. PLAN: The patient will be mobilized with physical therapy. The sling will be used for 6 weeks postoperatively. Active range of motion in forward flexion and abduction as tolerates. No external rotation greater than 0? for 6 weeks postoperatively. They will be discharged to home once medically appropriate.
--- NOTE | 2022-09-09 15:21 | SUR.PHASEI ---
into pacu with 700cc lr. infused 250cc lr in pacu phase 1
[2022-09-09] MEDS: LACTATED RINGERS 1000 ML 1,000 ML 75 ML IV (15:37)
--- NOTE | 2022-09-09 15:54 | PM.IMCN1 ---
Date of Consult Patient: [facility] Patient Consult date: 09/09/22 Requesting Physician: Orthopedics Primary Care Provider: Maritza Rendon, Consult Narrative Reason for consult: Postoperative medical management Narrative: Patsy Beltrán is a 82 year old female admitted to the hospital for left total shoulder arthroplasty. Procedures performed by Dr. Rios. He is requesting consultation for management medical problems. Patient reports doing well postoperatively. Her block is in affect and she is having no pain in her left shoulder. She also has numbness and weakness in her left arm as a sequelae of her block. She has been mildly hypoxic on supplemental oxygen. She reports she still sleepy from surgery but not dyspneic. She does not have nausea. Preoperatively she reports feeling well. No significant preoperative issues identified. 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 She has been off warfarin for 1 week. Her normal dose is 2.5 mg daily except 1.25 mg on Mondays. Review of Systems Narrative: She reports no recent illness or injury. Previous surgeries without complications related to anesthesia or bleeding. History of DVT and PE in the past. [facility] Medical History (Updated 09/09/22 @ 16:07 by Harris Valdez MD) Acute deep vein thrombosis (DVT) of popliteal vein Anxiety Chronic constipation Compression fracture of first lumbar vertebra (07/19/17) Compression fracture of L2 vertebra (11/2019) Diverticular disease Gastroesophageal reflux disease Dillon's thyroiditis History of Dillon thyroiditis Hyperlipidemia Hypertension Hypothyroidism Impaired fasting glucose Lichen sclerosus et atrophicus of the vulva custodial current use of anticoagulants with INR goal of 2.0-3.0 custodial current use of systemic steroids Midline cystocele (09/01/16) Mitral valve insufficiency Night sweats Osteoporosis Pulmonary embolism (2000) Raynaud's disease Sjogren's syndrome Surgical History (Updated 09/09/22 @ 14:07 by Geena Gonsales) History of appendectomy History of bladder surgery (09/17/19) History of bladder surgery (~2020) History of carpal tunnel release of both wrists (~1989) History of colonoscopy with polypectomy (03/2019) History of lumpectomy of right breast (1999) History of partial surgical removal of colon (08/23/02) 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) 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) Family History Mother Cancer Heart failure Father Colon cancer Social History (Updated 09/09/22 @ 16:02 by Harris Valdez MD) Narrative: She lives in [place] with her . Her has some dementia. He is currently home alone. Her son, Bahman, lives nearby. He is primary support and healthcare power of mergers and acquisitions attorney. Code status is full. does not use illicit drugs no history of alcohol use nonsmoker Smoking Status: Never smoker Do you use any of these nicotine containing products: None How often do you have a drink containing alcohol: monthly or less Alcohol type: wine How many standard drinks containing alcohol do you have on a typical day: 1 or 2 How often do you have six or more drinks on one occasion: Never AUDIT-C Alcohol total score: 1 Non-prescribed substance use: denies use Caffeine: Yes (1 cup/day) Little interest or pleasure in doing things: not at all Feeling down, depressed, or hopeless: not at all Meds Home Medications and Allergies Home Medications Medication Instructions Recorded Confirmed Type levothyroxine 112 mcg tablet 112 mcg PO QDAY 01/06/22 09/09/22 History prednisone 10 mg tablet 10 mg PO Q OTHER DAY 03/29/22 09/09/22 History COMPOUND topical 04/15/22 09/01/22 History Lactobacillus acidophilus 1 10 mg PO QDAY 04/15/22 09/09/22 History billion cell capsule betamethasone, augmented 0.05 % 1 applic topical PRN 04/15/22 09/01/22 History topical cream folic acid PO 04/15/22 09/01/22 History multivitamin 1 tab PO QDAY 04/15/22 09/09/22 History triamcinolone acetonide 0.1 % 1 applic topical PRN 04/15/22 09/01/22 History topical cream vit cap PO 07/19/22 09/01/22 History C,E,zinc,Ai-idobv-4-lutein-zeaxanthin 250 mg-2.5 mg-0.5 mg capsule diltiazem HCl 240 mg capsule,24 240 mg PO QDAY 09/01/22 09/09/22 History hr,extended release (Tiadylt ER) Allergies Allergy/AdvReac Type Severity Reaction Status Date / Time sulindac Allergy Severe Difficulty Verified 09/01/22 09:42 Breathing tetracycline Allergy Intermediate Rash Verified 09/01/22 09:42 mirabegron Allergy Mild lost Verified 09/01/22 09:42 control of bladder amoxicillin Allergy Unknown Verified 09/01/22 09:42 aspirin Allergy Unknown Verified 09/01/22 09:42 atorvastatin Allergy Unknown Verified 09/01/22 09:42 cholecalciferol (vitamin D3) Allergy Unknown Verified 09/01/22 09:42 [From Vitamin D3] ciprofloxacin Allergy Unknown Verified 09/01/22 09:42 clindamycin Allergy Unknown Verified 09/01/22 09:42 hydrochlorothiazide Allergy Unknown Verified 09/01/22 09:42 losartan Allergy Unknown Verified 09/01/22 09:42 metoprolol Allergy Unknown Verified 09/01/22 09:42 naproxen Allergy Unknown Verified 09/01/22 09:42 Nitroimidazoles Allergy Unknown Verified 09/01/22 09:42 alendronate sodium Allergy Verified 09/01/22 09:42 estrogens, conjugated Allergy Verified 09/01/22 09:42 oxybutynin Allergy Verified 09/01/22 09:42 Penicillins Allergy Verified 09/01/22 09:42 Sulfa (Sulfonamide Allergy Rash Verified 09/01/22 09:42 Antibiotics) Quinolones AdvReac Intermediate bad Verified 09/01/22 09:42 arthritis flair tolterodine AdvReac Intermediate Headache Verified 09/01/22 09:42 cephalexin AdvReac Unknown Hives Verified 09/01/22 09:42 furosemide AdvReac Unknown Verified 09/01/22 09:42 Exam Narrative: Exam Narrative: She is alert and appears in no distress. Breathing is unlabored. Eyes normal. Oropharynx normal. Neck is supple without mass or adenopathy. Respirations are clear to auscultation. Breath sounds are symmetric from left to right. Cardiovascular: S1, S2, regular bradycardia. No murmur gallop or rub. Abdomen is soft without tenderness or mass. Bowel sounds are present. Left upper extremity has applied ice pack. Her hand is warm to touch. Good capillary refill in her fingers. Good radial pulse. She moves her fingers well with altered but present sensation in her hand and fingers. Lower extremities with intact pulses and sensation. No edema. Const: Vital Signs, click to edit/add: Vital Signs - 24 hr 09/09/22 10:22 09/09/22 11:33 09/09/22 11:40 Temperature 98.5 F Pulse Rate 65 65 64 Respiratory Rate 16 16 16 Blood Pressure 164/58 H 162/64 H 162/84 H Pulse Oximetry 98 100 100 Oxygen Delivery Me thod Room Air Nasal Cannula Nasal Cannula Oxygen Flow Rate 3 3 09/09/22 11:45 09/09/22 11:50 09/09/22 14:34 Temperature 97.0 F L Pulse Rate 56 L 57 L 57 L Respiratory Rate 16 16 20 Blood Pressure 142/55 H 136/59 L 147/72 H Pulse Oximetry 100 100 93 Oxygen Delivery Me thod Nasal Cannula Nasal Cannula Nasal Cannula Oxygen Flow Rate 3 3 2 09/09/22 14:40 09/09/22 14:45 09/09/22 14:50 Temperature Pulse Rate 54 L 47 L 52 L Respiratory Rate 18 16 16 Blood Pressure 150/65 H 155/49 H 145/66 H Pulse Oximetry 97 96 95 Oxygen Delivery Me thod Oxygen Flow Rate 09/09/22 14:55 09/09/22 15:00 09/09/22 15:05 Temperature 97.2 F L Pulse Rate 55 L 55 L 56 L Respiratory Rate 16 16 14 Blood Pressure 148/70 H 157/68 H 158/66 H Pulse Oximetry 97 94 93 Oxygen Delivery Me thod Room Air Nasal Cannula Oxygen Flow Rate 2 Documenting provider has reviewed patient's vital signs: yes Assessment and Plan Assessment and plan (1) Hypoxia: Problem comment: Mild hypoxia after surgery. I suspect due to sedation. Will simply monitor and supplement tonight. If not getting better consider chest x-ray to evaluate for pulmonary infiltrates or phrenic nerve paralysis. Status: Acute (2) Pulmonary embolism: Problem comment: Long-term anticoagulation with warfarin Status: Acute (3) custodial current use of systemic steroids: Problem comment: Prednisone 10 mg every other day. Does not appear to need stress dose steroids. Status: Acute (4) sap basis consultant current use of anticoagulants with INR goal of 2.0-3.0: Problem comment: h/o PE; MV insufficiency Status: Acute Plan Anticipate routine management of pain and routine therapy. Supplement oxygen as needed. Evaluate if continued to be hypoxic tomorrow or if getting worse or other abnormal vitals. Continue baseline dose of prednisone and normal dose of warfarin. Total time spent today is 40 minutes, 25 minutes in coordination of care discussing with patient and other providers ongoing evaluation management of medical problems following shoulder surgery
[2022-09-09] MEDS: WARFARIN 2.5 MG TABLET PO (17:23)
[2022-09-09] MEDS: OMEPRAZOLE 20 MG CAPSULE DR PO (17:23)
[2022-09-09] MEDS: Pilocarpine Hcl 5 mg tablet PO ×2 (17:23→20:07)
[2022-09-09] MEDS: CEFAZOLIN 1 GM in 0.9 % SODIUM CHLORIDE Mini-bag 100 ML IVPB (17:29)
--- NOTE | 2022-09-09 19:52 | PC.NURSE ---
Pt arrived from PACU at 1515, pt alert and oriented. Pt's VSS, but hypertensive, asymptomatic, on 1L of O2 then RA this evening. Pt activated her bladder stimulator. Used bedpan a few times then amb to restroom w/ Ax1 and cane. Pt up to chair and eating dinner this evening. Denies pain and nausea. Sensation to hand otherwise block still in place to shoulder. Takes meds whole with water. Received Ancef this evening. SCDs while in bed. Cryo cuff refilled this evening and on shoulder. Adequate cap refill and pulse to LUE. Pt has call light within reach and uses appropriately.
[2022-09-09] MEDS: SENNOSIDES 1 TAB TABLET 2 TAB PO (20:06)
[2022-09-09] MEDS: BUSPIRONE 10 MG TABLET 5 MG PO (20:06)
[2022-09-10] MEDS: CEFAZOLIN 1 GM in 0.9 % SODIUM CHLORIDE Mini-bag 100 ML IVPB ×2 (02:19→09:49)
[2022-09-10 03:00] VITALS: BP 138/85; PULSE 73; RESP 18; TEMP 36.6; O2SAT 97
[2022-09-10] MEDS: OMEPRAZOLE 20 MG CAPSULE DR PO (06:06)
[2022-09-10] MEDS: ACETAMINOPHEN 500 MG TABLET 1000 MG PO (06:06)
[2022-09-10] MEDS: OXYCODONE 5 MG TABLET PO ×2 (06:06→09:02)
[2022-09-10] MEDS: LEVOTHYROXINE 112 MCG TABLET PO (06:06)
--- NOTE | 2022-09-10 06:38 | PC.NURSE ---
: SBA with cane, walked halls x 1. pain 1-4/10, 2.5 oxy given x 1. VSS. Dressing to shoulder CDI, deep purple bruising to medial upper arm. Cryo cuff on.
[2022-09-10 06:48] LABS: Hematocrit 39.6 % (33.0-51.0); Hemoglobin* 12.7 gm/dL (12.0-16.0); Mean Corpuscular HGB Conc 32 gm/dL (32-36); Mean Corpuscular Hemoglobin 32 pg (26-34); Mean Corpuscular Volume 100 fL (80-100); Platelet Count* 222 K/uL (140-440); Red Blood Count 3.98 m/uL (4.00-5.20); White Blood Count* 13.01 K/uL (4.50-11.00)
[2022-09-10 06:58] LABS: Slide Review Reflex No
[2022-09-10 07:00] VITALS: BP 150/79; PULSE 73; PULSE 78; RESP 18; TEMP 36.9; O2SAT 100; O2SAT 97
[2022-09-10 07:03] LABS: Potassium* 4.2 mmol/L (3.6-5.1); Sodium* 137 mmol/L (135-149)
[2022-09-10 07:06] LABS: Blood Urea Nitrogen* 28 mg/dL (7-30); Creatinine* 0.8 mg/dL (0.5-1.5); Estimated Glomerular Filt Rate 74 ml/min
[2022-09-10] MEDS: dilTIAZem 240 MG CAP (CD) PO (08:53)
[2022-09-10] MEDS: SENNOSIDES 1 TAB TABLET 2 TAB PO (08:53)
[2022-09-10] MEDS: predniSONE 10 MG TABLET PO (08:53)
[2022-09-10] MEDS: MULTIVITAMIN/MINERALS 1 TABLET 1 TAB PO (08:53)
[2022-09-10] MEDS: CALCIUM CARBONATE 500 MG TABLET PO (08:53)
[2022-09-10] MEDS: FOLIC ACID 1 MG TABLET PO (08:53)
[2022-09-10] MEDS: BUSPIRONE 10 MG TABLET 5 MG PO (08:54)
[2022-09-10] MEDS: LACTOBACILLUS ACIDOPHILUS 1 TABLET 1 TAB PO (08:54)
[2022-09-10] MEDS: Pilocarpine Hcl 5 mg tablet PO (08:55)
--- NOTE | 2022-09-10 09:46 | PC.SOCIAL ---
Discharge Plan: Met with patient, Patsy, , and son. They are taking her home today by private vehicle. She said that she is all step up at home, but did indicate that she may want a home health caregiver. Patsy states that she will access her situation once she is home. This newspaper writer offered to give her listing of agencies, but she declined this. Patsy states that she knows has a connection to the head of a home care agency and will contact her. worker's compensation claims examiner to follow up if needed.
--- NOTE | 2022-09-10 10:29 | PM.ORPN ---
Subjective Subjective Time Seen by Provider: 07:30 Date Seen: 09/10/22 Principal diagnosis: Status post left reverse total shoulder arthroplasty Interval history: Patsy is comfortable this morning. She has motor in her fingers, however numbness in fingers and entire arm. She is discharging to home today. Ortho Exam Narrative Exam Narrative: Alert and oriented x3. Patient is in no acute distress. Converses without labored breathing. Hearing is grossly intact. Ambulates with a normal gait. Examination of the left upper extremity shows the dressing is intact. Ecchymosis is present. Soft tissue edema is mild about the shoulder. No soft tissue edema about the lower arm or hand or fingers. She is able to make a fist with her fingers. She has some movement of her wrist. Decreased sensation of the entire arm due to her block. Sling is in place. Const Vital Signs, click to edit/add: Vital Signs - 24 hr 09/09/22 11:33 09/09/22 11:40 09/09/22 11:45 Temperature Pulse Rate 65 64 56 L Pulse Rate [Left Pulse Oximeter] Respiratory Rate 16 16 16 Blood Pressure 162/64 H 162/84 H 142/55 H Blood Pressure [Right Arm] Pulse Oximetry 100 100 100 Oxygen Delivery Method Nasal Cannula Nasal Cannula Nasal Cannula Oxygen Flow Rate 3 3 3 09/09/22 11:50 09/09/22 14:34 09/09/22 14:40 Temperature 97.0 F L Pulse Rate 57 L 57 L 54 L Pulse Rate [Left Pulse Oximeter] Respiratory Rate 16 20 18 Blood Pressure 136/59 L 147/72 H 150/65 H Blood Pressure [Right Arm] Pulse Oximetry 100 93 97 Oxygen Delivery Method Nasal Cannula Nasal Cannula Oxygen Flow Rate 3 2 09/09/22 14:45 09/09/22 14:50 09/09/22 14:55 Temperature Pulse Rate 47 L 52 L 55 L Pulse Rate [Left Pulse Oximeter] Respiratory Rate 16 16 16 Blood Pressure 155/49 H 145/66 H 148/70 H Blood Pressure [Right Arm] Pulse Oximetry 96 95 97 Oxygen Delivery Method Oxygen Flow Rate 09/09/22 15:00 09/09/22 15:05 09/09/22 15:27 Temperature 97.2 F L 97.1 F L Pulse Rate 55 L 56 L Pulse Rate [Left Pulse Oximeter] 67 Respiratory Rate 16 14 16 Blood Pressure 157/68 H 158/66 H Blood Pressure [Right Arm] 130/114 H Pulse Oximetry 94 93 95 Oxygen Delivery Method Room Air Nasal Cannula Nasal Cannula Oxygen Flow Rate 2 1 09/09/22 15:43 09/09/22 15:15 09/09/22 15:30 Temperature 96.9 F L 96.9 F L 97.1 F L Pulse Rate 54 L Pulse Rate [Left Pulse Oximeter] 59 L 67 Respiratory Rate 16 16 16 Blood Pressure Blood Pressure [Right Arm] 148/84 H 177/70 H 130/114 H Pulse Oximetry Oxygen Delivery Method Nasal Cannula Nasal Cannula Nasal Cannula Oxygen Flow Rate 1 1 1 09/09/22 15:45 09/09/22 16:00 09/09/22 16:15 Temperature 96.9 F L 96.9 F L 97.0 F L Pulse Rate Pulse Rate [Left Pulse Oximeter] 67 54 L Respiratory Rate 16 16 16 Blood Pressure Blood Pressure [Right Arm] 148/84 H 158/65 H 158/67 H Pulse Oximetry 95 96 97 Oxygen Delivery Method Nasal Cannula Nasal Cannula Nasal Cannula Oxygen Flow Rate 1 1 09/09/22 16:45 09/09/22 17:15 09/09/22 18:15 Temperature 97.1 F L 97.3 F L 98.2 F Pulse Rate Pulse Rate [Left Pulse Oximeter] 53 L 55 L 92 Respiratory Rate 16 16 16 Blood Pressure Blood Pressure [Right Arm] 170/69 H 154/66 H 118/52 L Pulse Oximetry 99 96 92 Oxygen Delivery Method Nasal Cannula Nasal Cannula Room Air Oxygen Flow Rate 1 1 09/09/22 21:09 09/09/22 21:50 09/09/22 21:50 Temperature 98.4 F Pulse Rate Pulse Rate [Left Pulse Oximeter] 77 60 Respiratory Rate 18 18 18 Blood Pressure Blood Pressure [Right Arm] 115/47 L Pulse Oximetry 96 96 Oxygen Delivery Method Room Air Room Air Oxygen Flow Rate 09/09/22 23:00 09/10/22 03:00 09/10/22 07:00 Temperature 97.8 F 97.8 F Pulse Rate Pulse Rate [Left Pulse Oximeter] 77 73 73 Respiratory Rate 18 18 18 Blood Pressure Blood Pressure [Right Arm] 116/47 L 138/85 Pulse Oximetry 96 97 Oxygen Delivery Method Room Air Room Air Oxygen Flow Rate 09/10/22 07:00 09/10/22 07:00 Temperature 98.4 F Pulse Rate Pulse Rate [Left Pulse Oximeter] 78 Respiratory Rate 18 18 Blood Pressure Blood Pressure [Right Arm] 150/79 H Pulse Oximetry 100 97 Oxygen Delivery Method Room Air Room Air Oxygen Flow Rate 1 Assessment and Plan Assessment and plan (1) Hypoxia: Problem details: Mild hypoxia after surgery. I suspect due to sedation. Will simply monitor and supplement tonight. If not getting better consider chest x-ray to evaluate for pulmonary infiltrates or phrenic nerve paralysis. Status: Acute Assessment and Plan: Plan for discharge is to home when they meet discharge criteria. Patient will wear the sling for 6 weeks post surgery. They can take it off for comfort and for exercises. Activity: no external rotation of the operative shoulder past 0? x 6 weeks. Forward flexion and abduction of the shoulder is allowed as tolerated. They will work on range of motion of the elbow, wrist, fingers once the block has wore off on the operative extremity. Patient will begin physical therapy for the operative shoulder next week. For discharge, oxycodone and Tylenol for pain. Do not drive while on narcotic pain medication. Drive only when safe to do so, when they have normal use/function of the upper extremity, this will likely take 6 weeks. Patient will minimize and discontinue the narcotic as soon as possible. Remove dressing in 1 week. Dressing is waterproof. May shower. Surgical glue covers the wound. Do not scrub the wound. Expect swelling and bruising about the shoulder and upper extremity. Use of ice/active ice without restriction. Notify Orthopedics his swelling is excessive. notify Orthopedics with any questions or concerns. [phone] Return to Orthopedic clinic next week for a wound check Return to clinic in [address] Rios. (2) Pulmonary embolism: Problem details: Long-term anticoagulation with warfarin Status: Acute (3) correction current use of systemic steroids: Problem details: Prednisone 10 mg every other day. Does not appear to need stress dose steroids. Status: Acute (4) correction current use of anticoagulants with INR goal of 2.0-3.0: Problem details: h/o PE; MV insufficiency Status: Acute
--- NOTE | 2022-09-10 11:53 | PC.NURSE ---
Patient AVS reviewed. All concerns addressed. Patient VSS. Pain under control. Patient discharged to home with spouse and son.
== END 2022-09-10 11:30 | disposition home or self-care (01) ==
LOC: OR 09:41 → MEDSURG 10:08
PROVIDERS: PCP Family Medicine; Visit Provider Orthopaedic Surgery
PROC: 0RRJ0JZ Replacement of Right Shoulder Joint with Synthetic Substitute, Open Approach (ICD-10-PCS; CPT 23472; principal; 2022-09-09 12:00)
DX: M75.102 Unspecified rotator cuff tear or rupture of left shoulder, not specified as traumatic (principal); M19.012 Primary osteoarthritis, left shoulder; R20.0 Anesthesia of skin; R09.02 Hypoxemia; Z86.718 Personal history of other venous thrombosis and embolism; Z86.711 Personal history of pulmonary embolism; Z79.52 Long term (current) use of systemic steroids; Z79.01 Long term (current) use of anticoagulants
CPT/HCPCS: 23472; 23120; 01638; 36415; 73030; 76942; 82565; 84132; 84295; 84520; 85027; 97110; 97116; 97161; 97165; 97535; 99100; A9153; A9270; C1713; C1776; J0330; J0461; J0690; J1100; J2250; J2405; J2704; J2710; J2795; J3010; J7120; J7512; L3670

== ENCOUNTER 2022-10-11 12:10 | Outpatient (CLI) | payer MEDICARE, BC, SELFPAY | END 2022-10-11 12:11 | disposition home or self-care (01) | PROVIDERS: PCP Family Medicine; Visit Provider Family Medicine | DX: E03.9 Hypothyroidism, unspecified (principal); E78.5 Hyperlipidemia, unspecified; R73.01 Impaired fasting glucose; E06.3 Autoimmune thyroiditis; I26.99 Other pulmonary embolism without acute cor pulmonale; R53.83 Other fatigue | CPT/HCPCS: 84443 ==

== ENCOUNTER 2023-04-05 12:33 | Outpatient (CLI) | payer MEDICARE, BC, SELFPAY ==
--- OUTSIDE RECORDS SUMMARY | 2023-04-05 12:36 | XMS_ITS | Continuity of Care Document ---
Author Name Unknown Organization [facility] Address [address] [place] [address] Phone Care Team Providers Care Mobility Manager Name Role Phone Usha Dickinson Unavailable Unavailable Allergies, Adverse Reactions, Alerts Substance Reaction Status Criticality cholecalciferol (vitamin D3) Active No Information METOPROLOL SUCCINATE Active No Info rmation TETRACYCLINE HCL Active No Informat ion Sulfa (Sulfonamide Antibiotics) Active No Information estrogens, conjugated Active No Inf ormation PENICILLIN Active No Information oxybutynin Active No Information naproxen Active No Information losartan Active No Information hydrochlorothiazide Active No Infor mation alendronate sodium Active No Inform ation metronidazole Active No Information sulindac Active No Information clindamycin Active No Information ciprofloxacin Active No Information atorvastatin Active No Information aspirin Active No Information amoxicillin Active No Information Medications Medication Instructions Dosage Effective Dates (start - stop) Status Comments BUSPIRONE HCL (unknown strength) Not Available - Active CALCIUM PETITES (unknown strength) Not Available - Active IMPOYZ (unknown strength) Not Available - Active DILT-XR (unknown strength) Not Available - Active ESTRADIOL (unknown strength) Not Available - Active FLUOCINONIDE (unknown strength) Not Available - Active FOLIC ACID (unknown strength) Not Available - Active NORTRIPTYLINE HCL (unknown strength) Not Available - Active CEPHALEXIN (unknown strength) Not Available - Active VALACYCLOVIR (unknown strength) Not Available - Active SENNA (unknown strength) Not Available - A ctive KETOCONAZOLE (unknown strength) Not Available - Active TIROSINT (unknown strength) Not Available - Active MIRALAX (unknown strength) Not Available - Active MULTIVITAMINS (unknown strength) Not Available - Active OMEPRAZOLE (unknown strength) Not Available - Active PILOCARPINE HCL (unknown strength) Not Available - Active PREDNISONE (unknown strength) Not Available - Active PROBIOTIC (unknown strength) Not Available - Active PROLIA (unknown strength) Not Available - Active RESTASIS (unknown strength) Not Available - Active SPIRONOLACTONE (unknown strength) Not Available - Active TRIAMCINOLONE (unknown strength) Not Available - Active WARFARIN SODIUM (unknown strength) Not Available - Active Procedures Procedure Date Office/Outpatient Visit,Est, Mod 2019 Office/Outpatient Visit,Est, Mod 2019 X-Ray Exam Lower Spine 2-3 Views 2019 Office/Outpatient Visit,New, Mod 2019 X-Ray Exam Lower Spine 2-3 Views 2019 Advance Directives Directive Yes / No Effective Date File Name No Information Encounters Encounter Description Practice Location Reason(s) For Visit Diagnoses Date Provider Providers Copied on Encounter [facility], [address], [place], [place], [id number], [place] tel:[phone] No Information 1 [facility]. [facility], [address], [place], [place], [id number] , [place]. tel:[phone] Office/Outpat ient Visit,Est, Mod [facility], [address], [place], [place], [id number], [place] tel:[phone] [facility] Other forms of scoliosis, thoracolumbar regionL2 wedge compression fracture, initial encounter for closed fractureSpondy lolisthesis, lumbar region 0 Kwame Usha. [facility], [address], [place], [place], [id number] , [place]. [phone] Referring Provider: Rakel Arvizu, [employer] [facility] [address] [place], [address]. tel:[phone] Office/Outpat ient Visit,Est, Mod [facility], [address], [facility] [place], [id number], [place] tel:[phone] [facility] L2 wedge compression fracture, initial encounter for closed fractureOther forms of scoliosis, thoracolumbar regionSpondylo listhesis, lumbar region 0 Kwame Kerr. [facility] [place], [address], [place], [place], [id number] , . tel:[phone] Referring Provider: Rakel Arvizu [employer] [address], [place], [address]. tel:[phone] Office/Outpat ient Visit,[facility], [facility], [address], [place], [place], [id number], [place] tel:[phone] [facility] L2 wedge compression fracture, initial encounter for closed fractureOther forms of scoliosis, thoracolumbar regionSpondylo listhesis, lumbar region 0 Kawme Kerr. [facility], [address], [place], [place], [id number] , [place]. tel:[phone] Referring Provider: Rakel Arvizu [employer] [address] [place], [address]. tel:[phone] Family History Family Member Type Diagnosis Age At Onset No Information Payers Payer name Insurance type Covered republican ID Authoralethaa tishannon(s) Medicare MB [id number] [facility] [id number] [facility] [id number] Social History Type Description Quantity Date Captured Comments Sex Female Smoking Status No Information Chief Complaint And Reason For Visit No Information Reason For Referral Reason For Referral No Information Plan Of Treatment Date Type Action Status Future Order: Radiology Order AP Lateral Lumbar (APLatLumb), Ordered on: Ordered Future Order: Radiology Order AP Lateral Lumbar (APLatLumb), Ordered on: Ordered History Of Present Illness Encounter Date Complaint History Of Prese nt Illness No Information Functional Status Date Functional Assessmen t No Information Instructions Date Instruction Additional Infor mation No Information Assessments Type Assessment Date No Information Patient Care Teams Name Effective Dates (start - stop) Status Members No Information
== END 2023-04-05 12:34 | disposition home or self-care (01) ==
LOC: WOUND 12:34
PROVIDERS: PCP Family Medicine; Visit Provider Nurse Practitioner Family
DX: I87.2 Venous insufficiency (chronic) (peripheral) (principal); I73.9 Peripheral vascular disease, unspecified; L97.829 Non-pressure chronic ulcer of other part of left lower leg with unspecified severity; Z79.52 Long term (current) use of systemic steroids
CPT/HCPCS: 97602; 99213

== ENCOUNTER 2023-04-11 13:41 | Outpatient (CLI) | payer MEDICARE, BC, SELFPAY ==
--- OUTSIDE RECORDS SUMMARY | 2023-04-11 13:43 | XMS_ITS | Continuity of Care Document ---
Author Name Unknown Organization [facility] Address [address] [place] [address] Phone Care Team Providers Care Gun Repair Clerk Name Role Phone Adam AMADOR, Hedler Jimenez Unavailabl e Allergies, Adverse Reactions, Alerts Substance Reaction Status Criticality cholecalciferol (vitamin D3) Active No Information METOPROLOL SUCCINATE Active No Info rmation tetracycline Active No Information Sulfa (Sulfonamide Antibiotics) Active No Information estrogens, conjugated Active No Inf ormation PENICILLIN Active No Information oxybutynin Active No Information naproxen Active No Information NITROFURANTOIN MACROCRYSTALLINE Active No Information nitrofurantoin Active No Informatio n losartan Active No Information hydrochlorothiazide Active No Infor mation alendronate sodium Active No Inform ation metronidazole Active No Information sulindac Active No Information clindamycin Active No Information ciprofloxacin Active No Information aspirin Active No Information atorvastatin Active No Information amoxicillin Active No Information Medications Medication Instructions Dosage Effective Dates (start - stop) Status Comments prednisone 10 mg tablet take 1 tablet by oral route every other day - Active *3 month supply* fosfomycin tromethamine 3 gram oral packet take 1 sachet by oral route dissolved in 3 to 4 ounces (1/2 cup) of water as a single dose 3 G - Active elderberry fruit 460 mg-elderberry flower 115 mg capsule - Active Prolia 60 mg/mL subcutaneous syringe inject 2 milliliter by subcutaneous route every 6 months in the upper arm, upper thigh or abdomen 120 MG - Active warfarin 2.5 mg tablet take 1 tablet by oral route every day 2.5 MG - Active levothyroxine 112 mcg tablet take 1 tablet by oral route every day 112 MCG - Active diltiazem ER (XR/XT) 240 mg capsule,extended release 24 hr, controlled take 1 capsule by oral route every day 240 MG - Active buspirone 5 mg tablet take 1 tablet by oral route 3 times every day 5 MG - Active pilocarpine 5 mg tablet take 1 tablet by oral route 3- 4 times every day 1 tablet - Active omeprazole 20 mg capsule,delayed release take 1 capsule by oral route every day before a meal 20 MG - Active furosemide 20 mg tablet take 1 tablet by oral route every day 20 MG - Active Restasis 0.05 % eye drops in a dropperette instill 1 drop by ophthalmic route every 12 hours into affected eye(s) 1.00 drop - Active multivitamin tablet take 1 tablet by oral route every day with food - Active Probiotic 10 billion cell capsule take 1 capsule by oral route every day 1 capsule - Active cranberry 500 mg capsule take 1 Capsule by Oral route every day 1 Capsule - Active folic acid 800 mcg tablet take 1 tablet by oral route every day 0.8 MG - Active Calcium 600 mg calcium (1,500 mg) tablet - Active fluocinonide 0.05 % topical cream apply by topical route 2 times every day to the affected area(s) 0.00 - Active estradiol 1 mg tablet take 1 tablet by oral route every day 1 MG - Active Tylenol Arthritis Pain 650 mg tablet,extended release take 2 tablet by oral route every 8 hours as needed swallowing whole with water. Do not break, crush, dissolve and/or chew. 1300 MG - Active Procedures Procedure Date Office/Outpatient Visit, Est Office/Outpatient Visit, Est Routine Venipuncture Specimen Handling Rbc Sed Rate, Automated Assay Of Serum Albumin Assay Of Creatinine Transferase (Ast) (Sgot) Alanine Amino (Alt) (Sgpt) CReactive Protein Complete Cbc WAuto Diff Wbc Office/Outpatient Visit, Est Office/Outpatient Visit, Est Routine Venipuncture Specimen Handling Rbc Sed Rate, Nonautomated Assay Of Serum Albumin Assay Of Creatinine Transferase (Ast) (Sgot) Alanine Amino (Alt) (Sgpt) CReactive Protein Complete Cbc WAuto Diff Wbc Office/Outpatient Visit, Est Office/Outpatient Visit, New Routine Venipuncture Specimen Handling Rbc Sed Rate, Nonautomated Assay Of Serum Albumin Assay Of Creatinine Transferase (Ast) (Sgot) Alanine Amino (Alt) (Sgpt) CReactive Protein Antinuclear Antibodies Dna Antibody, Single Strand Dna Antibody, Ute Nuclear Antigen Antibodies Rheumatoid Factor, IGM Rheumatoid Factor, IGG, IGA Advance Directives Directive Yes / No Effective Date File Name No Information Encounters Encounter Description Practice Location Reason(s) For Visit Diagnoses Date Provider Providers Copied on Encounter Office/Outpa tient Visit, [facility], [address], [address], [place] tel:[phone] [facility], 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 [address], [address], [place]. tel:[phone] Referring Provider: Helder Jain, [address], [place], [address]. tel:[phone] Office/Outpa tient Visit, [facility], [address], [place], [address], [place] tel:[phone] [facility], Sicca syndrome, unspecifiedWe akness 3 Lebedoff Helder. [address], [place], [place], [facility], [place]. tel:[phone] Referring Provider: Helder Jain, [address], [place], [address]. tel:[phone] Office/Outpa tient Visit, Est [facility], [address], [place], [address], [place] tel:[phone] [facility], Sicca syndrome, unspecifiedPa in in left shoulder 2 Lebedoff Helder. [address], [place], [place], [facility], [place]. tel:[phone] Referring Provider: Helder Jain, [address], [place], [place], [facility]. tel:[phone] Office/Outpa tient Visit, Est [facility], [address], [place], [address], [place] tel:[phone] [facility], Sicca syndrome, unspecifiedDy spnea 2 Lebedoff Helder. [address], [place], [place], [facility], [place]. tel:[phone] Referring Provider: Helder Medina Susy, [address], [place], [place], [facility]. tel:[phone] Office/Outpa tient Visit, Est [facility], [address], [place], [address], [place] tel:[phone] [facility], Sicca syndrome, unspecifiedOt her long-term (current) drug therapyPrimar y OA of right handDyspnea Apr- 1 Adam Pendleton. [address], [place], [place], [facility], . tel:[phone] Referring Provider: Helder Jain, [address], [place], [place], [facility]. tel:[phone] Office/Outpa tient Visit, [place] [facility], [facility], [place], [facility], tel:[phone] [facility], Sicca syndrome, unspecifiedPa in in rt ankleOther long-term (current) drug therapy 0 1 Adam Pendleton. [address], [place], [facility], [place]. tel:[phone] Referring Provider: Helder Jain, [address], [place], [place], [facility]. tel:[phone] [facility], [address], [place], [facility], [place] tel:[phone] [facility] [place] No Information 0 1 Mo Sullivan. [facility] [address] [place] [address] [address], [place], [place], [facility], . tel:[phone] Family History Family Member Type Diagnosis Age At Onset No Information Immunizations Vaccine Date Status Comments COVID-19 Moderna administered Source: Ot er Provider COVID-19 Pfizer administered Note: 1 ; Source: Other Provider Payers Payer name Insurance type Covered alliance party ID Dena quach(s) Medicare MB [id number] [facility] [id number] Social History Type Description Quantity Date Captured Comments Alcohol Use Details Caffeine Use Details Tobacco Use Status Current non-smoker Smoking Status Never smoker She gabi es in [place] with her . She is retired. She has never used tobacco products. She does not drink alcohol, she does not use drugs. Non-Smoking Tobacco Use Details : No Details Available : No Details Available Sex Female Vital Signs Date / Time: Height Weight BMI Pulse Rate Blood Pressure Temperature Respiratory Rate Body Surface Area Head Circumference Head Circ. Percentile Wt./Abdullahi. Percentile BMI percentile Pulse Ox Inhaled Ox 9:50 AM 61.81 in 62.686 kg (138.20 lbs) 25.4 3 kg/m eter (2) 134/60 mm[Hg] 98.00 F Chief Complaint And Reason For Visit No Information Reason For Referral Reason For Referral No Information Plan Of Treatment Date Type Action Status Appointment Patsy Beltrán BOOKED History Of Present Illness Encounter Date Complaint History Of Prese nt Illness No Information Functional Status Date Functional Assessmen t Pain Score 4/10 Instructions Date Instruction Additional Infor mation Continue prednisone 10 mg every other dayContinue pilocarpine as neededRepeat labs next time Related to Sjogren syndrome w/ inflammatory arthritis Continue pilocarpine 5 mg 3-4 times dailyHer prednisone is continued at 10 mg every other dayRepeat disease activity monitoring labs today Related to Sicca syndrome, unspecified Continue pilocarpine 5 mg 3-4 times dailyHer prednisone is continued at 10 mg every other dayLabs not due until next visit Related to Sicca syndrome, unspecified Increase pilocarpine to 5 mg 4 times dailyHer prednisone is continued at 10 mg every other dayLabs as below to trend disease activity and screen for lymphoma Related to Sicca syndrome, unspecified Her prednisone and p ilocarpine are continued without change.Repeat SPEP/complements in 6 months. 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 This appears to be well controlled currently. Ideally, this would not have been treated with long-term prednisone, but as she has been on it for nearly 4 decades it cannot be tapered off quickly, if at all. She is on an equivalent of 5 mg daily dosing, which is not entirely benign, but also does not have the severe side effects seen at higher prednisone doses. We will plan to continue it indefinitely unless intolerable side effects develop. assessment Primary osteoarthritis, right fried nd impression I suspect that what she is using on the affected finger is Voltaren gel. She will continue to use it as long as it provides benefit Patient Care Teams Name Effective Dates (start - stop) Status Members No Information
--- OUTSIDE RECORDS SUMMARY | 2023-04-11 13:43 | XMS_ITS | Continuity of Care Document ---
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 [facility], [address], [place], [place], [address] , [place]. tel:[phone] Office/Outpat ient Visit,Est, Mod [facility], [address], [place], [place], [address], [place] tel:[phone] [facility] Other forms of scoliosis, thoracolumbar regionL2 wedge compression fracture, initial encounter for closed fractureSpondy lolisthesis, lumbar region 0 Kwame Usha. [facility], [address], [place], [place], [address] , [place]. [phone] Referring Provider: Rakel Arvizu, [employer] [facility] [address] [place], [address]. tel:[phone] Office/Outpat ient Visit,Est, Mod [facility], [address], [facility] [place], [place], [address], [place] tel:[phone] [facility] L2 wedge compression fracture, initial encounter for closed fractureOther forms of scoliosis, thoracolumbar regionSpondylo listhesis, lumbar region 0 Kwame Kerr. [facility] [place], [address], [place], [place], [id number] , . tel:[phone] Referring Provider: Rakel Arvizu [employer] [address], [place], [address]. tel:[phone] Office/Outpat ient Visit,[facility], [facility], [address], [place], [place], [address], [place] tel:[phone] [facility] L2 wedge compression fracture, initial encounter for closed fractureOther forms of scoliosis, thoracolumbar regionSpondylo listhesis, lumbar region 0 Kwame Kerr. [facility], [address], [place], [place], [address] , [place]. tel:[phone] Referring Provider: Rakel Arvizu [employer] [address] [place], [address]. tel:[phone] Family History Family Member Type Diagnosis Age At Onset No Information Payers Payer name Insurance type Covered constitution party ID Authoralethaa tishannon(s) Medicare MB [id number] [facility] [address] [facility] [id number] Social History Type Description Quantity Date Captured [...]
--- NOTE | 2023-04-11 14:00 | CRLHL7_ITS ---
For Patients: As a result of the Century Cures Act, medical imaging exams and procedure reports are released immediately into your electronic medical record. You may view this report before your referring provider. If you have questions, please contact your health care provider. INDICATION: LT MEDIAL ANKLE WOUND TECHNIQUE: Bilateral lower extremity arterial duplex ultrasound with color Doppler and spectral waveform analysis. COMPARISON: None. FINDINGS: Multiple sonographic underwood-scale images demonstrate atherosclerotic plaque in both lower extremities. Right leg: Elevated velocity within the peroneal artery measuring 180 cm/seconds. Remaining velocities are not elevated. Triphasic/biphasic waveforms throughout the right lower extremity with the exception of monophasic waveform in the anterior tibial artery. Left leg: No elevated velocities are present. Monophasic waveforms extending from the mid femoral artery distally. Biphasic/triphasic waveforms in the common femoral and deep femoral arteries along with the proximal femoral artery. IMPRESSION: 30-49 percent stenosis within the right peroneal artery. Diffuse monophasic waveforms throughout the left lower extremity related to atherosclerosis. No high-grade stenosis. Dictated by Yan Stewart MD @ 04/13/2023 6:51:37 AM (Electronically Signed)
== END 2023-04-11 13:42 | disposition home or self-care (01) ==
LOC: US 13:41
PROVIDERS: PCP Family Medicine; Visit Provider Nurse Practitioner Family
DX: I73.9 Peripheral vascular disease, unspecified (principal); I73.89 Other specified peripheral vascular diseases
CPT/HCPCS: 93926

== ENCOUNTER 2023-04-12 14:07 | Outpatient (CLI) | payer MEDICARE, BC, SELFPAY ==
--- OUTSIDE RECORDS SUMMARY | 2023-04-12 14:09 | XMS_ITS | Continuity of Care Document ---
Author Name Unknown Organization [facility] Address [address] [place] [address] Phone Care Team Providers Care Oven Baker Name Role Phone Adam AMADOR, Helder Jimenez Unavailabl e Allergies, Adverse Reactions, Alerts [...] Antibodies Dna Antibody, Single Strand Dna Antibody, Quechan Nuclear Antigen Antibodies Rheumatoid Factor, IGM Rheumatoid Factor, IGG, IGA Advance Directives Directive Yes / No Effective Date File Name No Information Encounters Encounter Description Practice Location Reason(s) For Visit Diagnoses Date Provider Providers Copied on Encounter Office/Outpa tient Visit, [facility], [address], [address], [place] tel:[phone] [facility], 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 [address], [place], [address], [place]. tel:[phone] Referring Provider: Helder Jain, [address], [place], [address]. tel:[phone] Office/Outpa tient Visit, [facility], [address], [place], [address], [place] tel:[phone] [facility], Sicca syndrome, unspecifiedWe akness 3 Lebedoff Helder. [address], [place], [place], [facility], [place]. tel:[phone] Referring Provider: Helder Jain, [address], [place], [address]. tel:[phone] Office/Outpa tient Visit, Est [facility], [address], [place], [address], [place] tel:[phone] [facility], Sicca syndrome, unspecifiedPa in in left shoulder 2 Lebedoff Helder. [address], [place], [place], [facility], [place]. tel:[phone] Referring Provider: Helder Jain, [address], [place], [place], [facility]. tel:[phone] Office/Outpa tient Visit, Est [facility], [address], [place], [address], [place] tel:[phone] [facility], Sicca syndrome, unspecifiedDy spnea 2 Lebedoff Helder. [address], [place], [place], [facility], [place]. tel:[phone] Referring Provider: Helder Medina Susy, [address], [place], [place], [facility]. tel:[phone] Office/Outpa tient Visit, Est [facility], [address], [place], [address], [place] tel:[phone] [facility], Sicca syndrome, unspecifiedOt her assisted (current) drug therapyPrimar y OA of right handDyspnea Apr- 1 Adam Pendleton. [address], [place], [place], [facility], . tel:[phone] Referring Provider: Helder Jain, [address], [place], [place], [facility]. tel:[phone] Office/Outpa tient Visit, [place] [facility], [facility], [place], [facility], tel:[phone] [facility], Sicca syndrome, unspecifiedPa in in rt ankleOther termite treater helper (current) drug therapy 0 1 Adam Pendleton. [address], [place], [place], [facility], [place]. tel:[phone] Referring Provider: Helder Jain, [address], [place], [place], [facility]. tel:[phone] [facility], [address], [place], [facility], [place] tel:[phone] [facility] [place] No Information 0 1 Mo Sullivan. [facility] [address] [place] [address] [address], [place], [place], [facility], . tel:[phone] Family History Family Member Type Diagnosis Age At Onset No Information Immunizations Vaccine Date Status Comments COVID-19 Moderna administered Source: Ot er Provider COVID-19 Pfizer administered Note: 1 ; Source: Other Provider Payers Payer name Insurance type Covered constitution party ID Dena quach(s) Medicare MB [id number] [facility] [id number] Social History Type Description Quantity Date Captured Comments Alcohol Use Details Caffeine Use Details Tobacco Use Status Current non-smoker Smoking Status Never smoker She gabi es in [place] with her . She is retired. 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 This appears to be well controlled currently. Ideally, this would not have been treated with termite treater helper prednisone, but as she has been on [...]
--- OUTSIDE RECORDS SUMMARY | 2023-04-12 14:09 | XMS_ITS | Continuity of Care Document ---
Author Name Unknown Organization [facility] Address [address] [place] [address] Phone Care Team Providers Care Needle Loom Operator Name Role Phone Usha Dickinson Unavailable Unavailable [...] on Encounter [facility], [address], [place], [place], [id number], [place] tel:[phone] No Information 1 [facility], [address], [place], [place], [id number] , [place]. tel:[phone] Office/Outpat ient Visit,Est, Mod [facility], [address], [place], [place], [address], [place] tel:[phone] [facility] Other forms of scoliosis, thoracolumbar regionL2 wedge compression fracture, initial encounter for closed fractureSpondy lolisthesis, lumbar region 0 Kwame Usha. [facility], [address], [place], [place], [id number] , [place]. [phone] Referring Provider: Rakel Arvizu, [employer] [facility] [address] [place], [address]. tel:[phone] Office/Outpat ient Visit,Est, Mod [facility], [address], [facility] [place], [id number], [place] tel:[phone] [facility] L2 wedge compression fracture, initial encounter for closed fractureOther forms of scoliosis, thoracolumbar regionSpondylo listhesis, lumbar region 0 Kwame Kerr. [facility], [address], [place], [place], [address] , . tel:[phone] Referring Provider: Rakel Arvizu [employer] [address], [place], [address]. tel:[phone] Office/Outpat ient Visit,[facility], [facility], [address], [place], [place], [address], [place] tel:[phone] [facility] L2 wedge compression fracture, initial encounter for closed fractureOther forms of scoliosis, thoracolumbar regionSpondylo listhesis, lumbar region 0 Kwame Kerr. [facility], [address], [place], [place], [address] , [place]. tel:[phone] Referring Provider: Rakel Arvizu [employer] [address] [place], [address]. tel:[phone] Family History Family Member Type Diagnosis Age At Onset No Information Payers Payer name Insurance type Covered democrat ID Authoralethaa tishannon(s) Medicare MB [id number] [facility] [id number] [facility] [place] [facility] [id number] Social History Type Description Quantity Date Captured [...]
== END 2023-04-12 14:08 | disposition home or self-care (01) ==
LOC: FRMREF 14:07
PROVIDERS: PCP Family Medicine; Visit Provider Physician Assistant Medical
DX: N39.0 Urinary tract infection, site not specified (principal)
CPT/HCPCS: 87086

== ENCOUNTER 2023-04-14 11:17 | Outpatient (CLI) | payer MEDICARE, BC, SELFPAY ==
--- OUTSIDE RECORDS SUMMARY | 2023-04-14 11:23 | XMS_ITS | Continuity of Care Document ---
Author Name Unknown Organization [facility] Address [address] [place] [address] Phone Care Team Providers Care Web Site Developer Name Role Phone Usha Dickinson Unavailable Unavailable [...] on Encounter [facility], [address], [place], [place], [id number], [place] tel:[phone] No Information 1 [facility]. [facility], [address], [place], [place], [id number] , [place]. tel:[phone] Office/Outpat ient Visit,Est, Mod [facility], [address], [place], [place], [id number], [place] tel:[phone] [facility] Other forms of scoliosis, thoracolumbar regionL2 wedge compression fracture, initial encounter for closed fractureSpondy lolisthesis, lumbar region 0 Kwame Usha. [facility], [address], [place], [place], [id number] , [place]. [phone] Referring Provider: Rakel Arvizu, [employer] [facility] [address] [place], [address]. tel:[phone] Office/Outpat ient Visit,Est, Mod [facility], [address], [facility] [place] [place], [id number], [place] tel:[phone] [facility] L2 wedge compression fracture, initial encounter for closed fractureOther forms of scoliosis, thoracolumbar regionSpondylo listhesis, lumbar region 0 Kwame Kerr. [facility], [address], [place], [place], [id number] , . tel:[phone] Referring Provider: Rakel Arvizu [employer] [address], [place], [address]. tel:[phone] Office/Outpat ient Visit,[facility], [address], [place], [place], [id number], [place] tel:[phone] [facility] L2 wedge compression fracture, initial encounter for closed fractureOther forms of scoliosis, thoracolumbar regionSpondylo listhesis, lumbar region 0 Kwame Kerr. [facility], [address], [place], [place], [id number] , [place]. tel:[phone] Referring Provider: Rakel Arvizu [employer] [address] [place], [address]. tel:[phone] Family History Family Member Type Diagnosis Age At Onset No Information Payers Payer name Insurance type Covered green party ID Authoralethaa tishannon(s) Medicare MB [id number] [facility] [id number] [facility] [id number] Social History Type Description Quantity Date Captured [...]
--- OUTSIDE RECORDS SUMMARY | 2023-04-14 11:23 | XMS_ITS | Continuity of Care Document ---
Author Name Unknown Organization [facility] Address [address] [facility] [address] [place] [address] Phone Care Team Providers Care Shale [employer] Name Role Phone Adam AMADOR, Helder Jimenez [...] Antibodies Dna Antibody, Single Strand Dna Antibody, [place] Nuclear Antigen Antibodies Rheumatoid Factor, IGM Rheumatoid Factor, IGG, IGA Advance Directives Directive Yes / No Effective Date File Name No Information Encounters Encounter Description Practice Location Reason(s) For Visit Diagnoses Date Provider Providers Copied on Encounter Office/Outpa tient Visit, [facility], [address], [place], [address], [place] tel:[phone] [facility], 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 [address], [address], [place], [address], [place]. tel:[phone] Referring Provider: Helder Jain, [address], [place], [address]. tel:[phone] Office/Outpa tient Visit, [facility], [address], [place], [address], [place] tel:[phone] [facility], Sicca syndrome, unspecifiedWe akness 3 Lebedoff Helder. [address], [place], [place], [facility], [place]. tel:[phone] Referring Provider: Helder Jain, [address], [place], [address]. tel:[phone] Office/Outpa tient Visit, Est [facility], [address], [place], [address], [place] tel:[phone] [facility], Sicca syndrome, unspecifiedPa in in left shoulder 2 Lebedoff Helder. [address], [place], [place], [facility], [place]. tel:[phone] Referring Provider: Helder Jain, [address], [place], [place], [facility]. tel:[phone] Office/Outpa tient Visit, Est [facility], [address], [place], [address], [place] tel:[phone] [facility], Sicca syndrome, unspecifiedDy spnea 2 Lebedoff Helder. [address], [place], [place], [facility], [place]. tel:[phone] Referring Provider: Helder Medina Susy, [address], [place], [place], [facility]. tel:[phone] Office/Outpa tient Visit, Est [facility], [address], [place], [address], [place] tel:[phone] [facility], Sicca syndrome, unspecifiedOt her shelter (current) drug therapyPrimar y OA of right handDyspnea Apr- 1 Adam Pendleton. [address], [place], [place], [facility], . tel:[phone] Referring Provider: Helder Jain, [address], [place], [place], [facility]. tel:[phone] Office/Outpa tient Visit, New [facility], [facility], [place], [facility], tel:[phone] [facility], Sicca syndrome, unspecifiedPa in in rt ankleOther oysterman (current) drug therapy 0 1 Adam Pendleton. [address], [place], [place], [facility], [place]. tel:[phone] Referring Provider: Helder Jain, [address], [place], [place], [facility]. tel:[phone] [facility], [address], [place], [facility], [place] tel:[phone] [facility] [place] No Information 0 1 Mo Sullivan. [facility] [address] [place] [address] [address], [place], [place], [facility], . tel:[phone] Family History Family Member Type Diagnosis Age At Onset No Information Immunizations Vaccine Date Status Comments COVID-19 Moderna administered Source: Ot er Provider COVID-19 Pfizer administered Note: 1 ; Source: Other Provider Payers Payer name Insurance type Covered alliance party ID Dena quach(s) Medicare MB [id number] [facility] [id number] Social History Type Description Quantity Date Captured Comments Alcohol Use Details Caffeine Use Details Tobacco Use Status Current non-smoker Smoking Status Never smoker She gabi es in [place] with her . She is retired. 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 This appears to be well controlled currently. Ideally, this would not have been treated with oysterman prednisone, but as she has been on [...]
== END 2023-04-14 11:18 | disposition home or self-care (01) ==
LOC: WOUND 11:17
PROVIDERS: PCP Family Medicine; Visit Provider Nurse Practitioner Family
DX: I83.12 Varicose veins of left lower extremity with inflammation (principal); L97.828 Non-pressure chronic ulcer of other part of left lower leg with other specified severity; I73.9 Peripheral vascular disease, unspecified; Z79.52 Long term (current) use of systemic steroids
CPT/HCPCS: 99213

== ENCOUNTER 2023-05-20 10:19 | Emergency (ER) | payer MEDICARE, BC, SELFPAY ==
[2023-05-20] VITALS (7 sets, daily range): BP systolic 154–179; BP diastolic 62–103; PULSE 61–68; RESP 12–16; TEMP 36.5; O2SAT 95–99; BMI 27.9
--- NOTE | 2023-05-20 10:51 | ED_ITS ---
HPI - Arrhythmia/Palpitations General Chief Complaint: Arrhythmia/Palpitations Stated Complaint: Chest pain last night Time Seen by Provider: 05/20/23 10:40 History of Present Illness HPI narrative: This 82-year-old female comes in reporting palpitations that began about 10 hours ago at which time she also had some chest pain. This lasted for a couple hours from 1:00 a.m. to about 3:00 a.m.. She did not have any nausea, vomiting, lightheadedness, shortness of breath, or diaphoresis. She states that she has had surgery on her left shoulder and sometimes she gets pain in this area that can radiate into her left chest. This pain was similar last night except that it extended further across the anterior chest to her right side. Currently she is not having any pain. She states that she felt her pulse last evening when this occurred and it seemed irregular. She arrives here with normal vital signs and has normal pulse in sinus rhythm. She states that she does take Coumadin. Related Data Home Medications Medication Instructions Recorded Confirmed levothyroxine 112 mcg tablet 112 mcg PO DAILY 01/06/22 04/12/23 Lactobacillus acidophilus 1 10 mg PO DAILY 04/15/22 04/12/23 billion cell capsule betamethasone, augmented 0.05 % 1 applic topical DAILY PRN 04/15/22 04/12/23 topical cream multivitamin 1 tab PO DAILY 04/15/22 04/12/23 clobetasol 0.05 % topical ointment 1 g topical 2XW PRN lichen 09/10/22 04/12/23 sclerosis furosemide 20 mg tablet 20 mg PO DAILY PRN edema 09/10/22 04/12/23 gabapentin 6%/ketamine topical .four time daily PRN 01/24/23 04/12/23 8%/liodcaine 2.5% liposomal cream with baclofen 2% vibegron 75 mg tablet (Gemtesa) 75 mg PO DAILY 03/24/23 04/12/23 Previous Rx's Medication Instructions Recorded calcium carbonate 600 mg calcium 600 mg PO DAILY #90 tabs 01/06/22 (1,500 mg) tablet denosumab 60 mg/mL subcutaneous 60 mg subcut [id number] #1 mL 01/06/22 syringe lorazepam 0.5 mg tablet 0.25 - 0.5 mg (0.5 - 1 x 0.5 mg) 01/06/22 PO DAILY PRN anxiety #5 tabs pilocarpine HCl 5 mg tablet 5 mg PO TID #270 tabs 09/02/22 acetaminophen 500 mg capsule 500 - 1,000 mg (1 - 2 x 500 mg) PO 09/09/22 Q6H PRN pain #100 caps cyclosporine 0.05 % eye drops 1 drp ophthalmic (eye) BID #5.5 mL 11/30/22 (Restasis MultiDose) diltiazem HCl 240 mg capsule,24 240 mg PO DAILY #90 caps 12/01/22 hr,extended release (Tiadylt ER) sennosides 8.6 mg tablet (Senna 8.6 mg PO BID PRN constipation 12/02/22 Lax) #180 tabs omeprazole 20 mg capsule,delayed 20 mg PO BID #60 caps 12/21/22 release warfarin 2.5 mg tablet 2.5 mg PO DAILY #90 tabs 03/02/23 buspirone 5 mg tablet 5 mg PO TID #90 tabs 03/16/23 prednisone 10 mg tablet 10 mg PO Q OTHER DAY #45 tabs 03/16/23 fluconazole 150 mg tablet 150 mg PO Q3D 2 doses #2 tabs 04/11/23 triamcinolone acetonide 0.1 % 1 applic topical BID PRN rash #80 05/05/23 topical cream grams fosfomycin tromethamine 3 gram 1 packet PO Q3D PRN bladder 05/09/23 oral packet infections 2 doses #2 ea Allergies Allergy/AdvReac Type Severity Reaction Status Date / Time sulindac Allergy Severe Difficulty Verified 05/05/23 09:25 Breathing tetracycline Allergy Intermediate Rash Verified 05/05/23 09:25 mirabegron Allergy Mild lost Verified 05/05/23 09:25 control of bladder amoxicillin Allergy Unknown Verified 05/05/23 09:25 aspirin Allergy Unknown Verified 05/05/23 09:25 atorvastatin Allergy Unknown Verified 05/05/23 09:25 cholecalciferol (vitamin D3) Allergy Unknown Verified 05/05/23 09:25 [From Vitamin D3] ciprofloxacin Allergy Unknown Verified 05/05/23 09:25 clindamycin Allergy Unknown Verified 05/05/23 09:25 hydrochlorothiazide Allergy Unknown Verified 05/05/23 09:25 losartan Allergy Unknown Verified 05/05/23 09:25 metoprolol Allergy Unknown Verified 05/05/23 09:25 naproxen Allergy Unknown Verified 05/05/23 09:25 Nitroimidazoles Allergy Unknown Verified 05/05/23 09:25 alendronate sodium Allergy Verified 05/05/23 09:25 estrogens, conjugated Allergy Verified 05/05/23 09:25 oxybutynin Allergy Verified 05/05/23 09:25 Penicillins Allergy Verified 05/05/23 09:25 Sulfa (Sulfonamide Allergy Rash Verified 05/05/23 09:25 Antibiotics) Quinolones AdvReac Intermediate bad Verified 05/05/23 09:25 arthritis flair tolterodine AdvReac Intermediate Headache Verified 05/05/23 09:25 cephalexin AdvReac Unknown Hives Verified 05/05/23 09:25 furosemide AdvReac Unknown Verified 05/05/23 09:25 Review of Systems Status of ROS: Reports: 10 or more systems reviewed and unremarkable except as noted in History and below Narrative: Constitutional: No fevers, no weight gain or loss. Eyes: No discharge. No vision changes. HENT: No congestion, no sore throat, no ear pain. Cardiovascular: Chest pain and palpitations as described above. Currently no discomfort or palpitations. Respiratory: No shortness of breath, no wheezes, no cough. Gastrointestinal: No abdominal pain, no vomiting, no diarrhea. Genitourinary: No dysuria, no hematuria. Musculoskeletal: Normal range of motion. Skin: No rashes, no pruritis. Neurological: No dizziness, weakness, sensory change, speech change. Endo/Heme/Allergies: No bruising or bleeding. No polydipsia. Pysch: no suicidality, no anxiety, no insomnia. All other systems reviewed and are negative. 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 (ICD-10) Raynaud's disease ?I73.00 - Raynaud's syndrome without gangrene (ICD-10) Pulmonary embolism (2000) ?I26.99 - Other pulmonary embolism without acute cor pulmonale (ICD-10) Night sweats ?R61 - Generalized hyperhidrosis (ICD-10) Mitral valve insufficiency ?I34.0 - Nonrheumatic mitral (valve) insufficiency (ICD-10) Midline cystocele (09/01/16) ?N81.11 - Cystocele, midline (ICD-10) group home current use of systemic steroids ?Z79.52 - group home (current) use of systemic steroids (ICD-10) Lichen sclerosus et atrophicus of the vulva ?N90.4 - Leukoplakia of vulva (ICD-10) Impaired fasting glucose ?R73.01 - Impaired fasting glucose (ICD-10) Hypothyroidism ?E03.9 - Hypothyroidism, unspecified (ICD-10) Hypertension ?I10 - Essential (primary) hypertension (ICD-10) Hyperlipidemia ?E78.5 - Hyperlipidemia, unspecified (ICD-10) History of Dillon thyroiditis ?Z86.39 - Personal history of other endocrine, nutritional and metabolic disease (ICD-10) 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 (ICD-10) Gastroesophageal reflux disease ?K21.9 - Gastro-esophageal reflux disease without esophagitis (ICD-10) Diverticular disease ?K57.90 - Diverticulosis of intestine, part unspecified, without perforation or abscess without bleeding (ICD-10) Compression fracture of L2 vertebra (11/2019) ?S32.020A - Wedge compression fracture of second lumbar vertebra, initial encounter for closed fracture (ICD-10) Compression fracture of first lumbar vertebra (07/19/17) ?S32.010A - Wedge compression fracture of first lumbar vertebra, initial encounter for closed fracture (ICD-10) Chronic constipation ?K59.09 - Other constipation (ICD-10) Anxiety ?F41.9 - Anxiety disorder, unspecified (ICD-10) Acute deep vein thrombosis (DVT) of popliteal vein ?I82.439 - Acute embolism and thrombosis of unspecified popliteal vein (ICD- 10) Surgical History 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) ?Z96.612 - Presence of left artificial shoulder joint (ICD-10) History of bladder surgery (~2020) ?Z98.890 - Other specified postprocedural states (ICD-10) 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) ?Z96.641 - Presence of right artificial hip joint (ICD-10) History of partial surgical removal of colon (08/23/02) ?Z90.49 - Acquired absence of other specified parts of digestive tract (ICD- 10) History of lumpectomy of right breast (1999) ?Z98.890 - Other specified postprocedural states (ICD-10) History of colonoscopy with polypectomy (03/2019) ?Z98.890 - Other specified postprocedural states (ICD-10) ?Z86.010 - Personal history of colonic polyps (ICD-10) History of carpal tunnel release of both wrists (~1989) ?Z98.890 - Other specified postprocedural states (ICD-10) History of bladder surgery (09/17/19) ?Z98.890 - Other specified postprocedural states (ICD-10) History of appendectomy ?Z90.49 - Acquired absence of other specified parts of digestive tract (ICD- 10) Family History Mother Cancer Heart failure Father Colon cancer Social History (Updated 09/09/22 @ 16:02 by Harris Valdez MD) Narrative: She lives in [place] with her . Her has some dementia. He is currently home alone. Her son, Bahman, lives nearby. 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 Code status is full. does not use illicit drugs no history of alcohol use nonsmoker Smoking Status: Never smoker Do you use any of these nicotine containing products: None How often do you have a drink containing alcohol: monthly or less Alcohol type: wine How many standard drinks containing alcohol do you have on a typical day: 1 or 2 How often do you have six or more drinks on one occasion: Never AUDIT-C Alcohol total score: 1 Non-prescribed substance use: denies use Caffeine: Yes (1 cup/day) Little interest or pleasure in doing things: not at all Feeling down, depressed, or hopeless: not at all Exam Narrative: Exam Narrative: Constitutional: Well-developed, well-nourished, no acute distress. HEENT: Normocephalic, atraumatic. Neck: Normal range of motion. Nontender. Supple. Heart: Regular. No murmurs. Normal rate. Intact distal pulses. Lungs: Clear to auscultation. No chest discomfort. No wheezes, rhonchi, or rales. Abdomen: Normal bowel sounds. Nontender. No rebound tenderness. Genitalia: Deferred. Back: No midline tenderness. Normal range of motion. Extremities: Normal range of motion. No injury. Skin: Intact. No rash. Warm. No erythema or pallor. Neurologic: No altered sensation. No weakness. Alert and oriented. Psychiatric: No suicidality. No anxiety or depression. No insomnia. Nursing notes and vitals signs are reviewed. Const: Vital Signs, click to edit/add: Vital Signs - 24 hr 05/20/23 10:33 05/20/23 11:02 05/20/23 11:32 Temperature 97.7 F Pulse Rate 65 63 Pulse Rate [Pulse Oximeter] 68 Respiratory Rate 14 14 16 Blood Pressure 154/72 H 163/62 H Blood Pressure [Ri ght Upper Arm] 179/80 H Pulse Oximetry 99 97 95 Oxygen Delivery Me thod Room Air Course Vital Signs Vital signs: Initial Vital Signs Temperature 97.7 F 05/20/23 10:33 Temperature Source Temporal Artery Scan 05/20/23 10:33 Pulse Rate 68 05/20/23 10:33 Pulse Rhythm Regular 05/20/23 10:33 Respiratory Rate 14 05/20/23 10:33 Blood Pressure 179/80 H 05/20/23 10:33 Blood Pressure Mean 113 H 05/20/23 10:33 Blood Pressure Position Sitting 05/20/23 10:33 Pulse Oximetry 99 05/20/23 10:33 Oxygen Delivery Method Room Air 05/20/23 10:33 Vital Signs Temperature 97.7 F 05/20/23 10:33 Pulse Rate 68 05/20/23 10:33 Respiratory Rate 14 05/20/23 10:33 Blood Pressure 179/80 H 05/20/23 10:33 Pulse Oximetry 99 05/20/23 10:33 Oxygen Delivery Method Room Air 05/20/23 10:33 Temperature 97.7 F 05/20/23 10:33 Pulse Rate 63 05/20/23 11:32 Respiratory Rate 16 05/20/23 11:32 Blood Pressure 163/62 H 05/20/23 11:32 Pulse Oximetry 95 05/20/23 11:32 Oxygen Delivery Method Room Air 05/20/23 10:33 MDM - Arrhythmia/Palpitations MDM Narrative Medical decision making narrative: This patient comes in with report of palpitations and chest pain that began about 10 hours prior to arrival. Currently she is not having any such symptoms. She does have recurrent left shoulder pain and sometimes this radiates into her chest. The patient arrives with normal vital signs. EKG shows normal sinus rhythm without any ST or T-wave abnormalities. I do note on the monitor that she does have some premature atrial contractions. Lab results today returned with reassuring findings also. Her troponin is in normal range. Seems most likely that her chest discomfort is related to her left shoulder which has recurrent symptoms. Lab Data Labs: Lab Results 05/20/23 05/20/23 Range/Units 11:10 11:20 WBC 6.41 (4.50-11.00) K/uL RBC 4.28 (4.00-5.20) m/uL Hgb 13.5 (12.0-16.0) gm/dL Hct 42.7 (33.0-51.0) % MCV 100 (80-100) fL MCH 32 (26-34) pg MCHC 32 (32-36) gm/dL RDW Coeff of Traci 13.7 (11.5-15.5) % Plt Count 196 (140-440) K/uL Neut % (Auto) 69.0 (42.0-72.0) % Lymph % (Auto) 18.3 L (20-44) % [place] % (Auto) 10.8 (0.0-11.0) % Eos % (Auto) 1.2 (0.0-7.0) % Baso % (Auto) 0.2 (0.0-3.0) % Neut # (Auto) 4.43 (1.7-7.0) K/uL Lymph # (Auto) 1.20 (0.90-2.90) K/uL [place] # (Auto) 0.70 (0.00-0.90) K/UL Eos # (Auto) 0.08 (0.00-0.50) K/uL Baso # (Auto) 0.01 (0.00-0.30) K/uL Abs Immat Gran (auto) 0.03 (0.00-0.30) K/uL Imm/Tot Granulo (auto) 0.5 % Sodium 144 (135-149) mmol/L Potassium 3.7 (3.6-5.1) mmol/L Chloride 105 (96-114) mmol/L Carbon Dioxide 28 (20-32) mmol/L Anion Gap 11 (7-15) mEq/L BUN 25 (7-30) mg/dL Creatinine 0.9 (0.5-1.5) mg/dL Estimated Creat Clear 42.86 Estimated GFR 64 ml/min Glucose 88 (60-115) mg/dL Calcium 9.0 (8.4-10.6) mg/dL POC Troponin I 0.01 (0.01-0.04) ng/ml ECG Data Attestation: I personally reviewed and interpreted this ECG as follows: Interpretation: Normal sinus rhythm. Rate is 69 beats per minute. There are no specific ST or T-wave abnormalities. Discharge Plan Discharge Clinical Impression: Atypical chest pain Patient Disposition: Home, Self-Care Condition: Stable Additional Instructions: Continue current plans. Follow up with MD return if worsening. Prescriptions: No Action calcium carbonate 600 mg calcium (1,500 mg) tablet 600 mg PO DAILY Qty: 90 4RF denosumab 60 mg/mL syringe 60 mg subcut [id number] Qty: 1 1RF levothyroxine 112 mcg tablet 112 mcg PO DAILY lorazepam 0.5 mg tablet 0.25 - 0.5 mg PO DAILY PRN (Reason: anxiety) Qty: 5 0RF Rx Instructions: 5 tablets must last one year multivitamin Tablet 1 tab PO DAILY Lactobacillus acidophilus 1 billion cell capsule 10 mg PO DAILY betamethasone, augmented 0.05 % cream 1 applic topical DAILY PRN sennosides [Senna Lax] 8.6 mg tablet 8.6 mg PO BID PRN (Reason: constipation) Qty: 180 1RF gabapentin 6%/ketamine 8%/liodcaine 2.5% liposomal cream with baclofen 2% cream topical .four time daily PRN Rx Instructions: hand faxed rx to [facility] [phone] 60 grams with 1 refill sent to scanning Gemtesa 75 mg tablet 75 mg PO DAILY acetaminophen 500 mg capsule 500 - 1,000 mg PO Q6H MDD 4000mg per day PRN (Reason: pain) Qty: 100 0RF clobetasol 0.05 % ointment 1 g topical 2XW PRN (Reason: lichen sclerosis) furosemide 20 mg tablet 20 mg PO DAILY PRN (Reason: edema) pilocarpine HCl 5 mg tablet 5 mg PO TID Qty: 270 4RF Restasis MultiDose 0.05 % drops 1 drp ophthalmic (eye) BID Qty: 5.5 3RF diltiazem HCl [Tiadylt ER] 240 mg capsule,extended release 24 hr 240 mg PO DAILY Qty: 90 3RF omeprazole 20 mg capsule,delayed release(DR/EC) 20 mg PO BID Qty: 60 5RF warfarin 2.5 mg tablet 2.5 mg PO DAILY Qty: 90 0RF Protocol: Dose Management Condition: Tuesday Dose/Route: 2.5 mg Instruction: 1 x 2.5 mg tablet Condition: Tuesday Dose/Route: 2.5 mg Instruction: 1 x 2.5 mg tablet Condition: Tuesday Dose/Route: 2.5 mg Instruction: 1 x 2.5 mg tablet Condition: Tuesday Dose/Route: 2.5 mg Instruction: 1 x 2.5 mg tablet Condition: Dose/Route: 2.5 mg Instruction: 1 x 2.5 mg tablet Condition: Tuesday Dose/Route: 2.5 mg Instruction: 1 x 2.5 mg tablet Condition: Tuesday Dose/Route: 2.5 mg Instruction: 1 x 2.5 mg tablet Protocol Text: Adjustment Start Date: Tuesday05/16/23 INR Value: 2.3 INR Date: 05/16/23 Recheck Date: 05/23/23 Rx Instructions: 2.5mg daily. prednisone 10 mg tablet 10 mg PO Q OTHER DAY Qty: 45 3RF buspirone 5 mg tablet 5 mg PO TID Qty: 90 3RF fluconazole 150 mg tablet 150 mg PO Q3D Qty: 2 0RF Rx Instructions: Take 1 tablet, and repeat in 3 days if symptoms are still present. triamcinolone acetonide 0.1 % cream 1 applic topical BID PRN (Reason: rash) Qty: 80 1RF fosfomycin tromethamine 3 gram packet 1 packet PO Q3D PRN (Reason: bladder infections) Qty: 2 6RF Follow Up/Referrals: Maritza Rendon DO [Primary Care Provider] - Stand Alone Forms: [email or web address] Info Instructions
--- OUTSIDE RECORDS SUMMARY | 2023-05-20 11:32 | XMS_ITS | Continuity of Care Document ---
Author Name Unknown Organization [facility] Address [address] [place] [address] Phone Care Team Providers Care Vp Of Customer Experience Strategy Name Role Phone Usha Dickinson Unavailable Unavailable [...] Effective Dates (start - stop) Status Comments WARFARIN SODIUM (unknown strength) Not Available - Active TRIAMCINOLONE (unknown strength) Not Available - Active SPIRONOLACTONE (unknown strength) Not Available - Active RESTASIS (unknown strength) Not Available - Active PROLIA (unknown strength) Not Available - Active PROBIOTIC (unknown strength) Not Available - Active PREDNISONE (unknown strength) Not Available - Active PILOCARPINE HCL (unknown strength) Not Available - Active OMEPRAZOLE (unknown strength) Not Available - Active MULTIVITAMINS (unknown strength) Not Available - Active MIRALAX (unknown strength) Not Available - Active TIROSINT (unknown strength) Not Available - Active KETOCONAZOLE (unknown strength) Not Available - Active SENNA (unknown strength) Not Available - A ctive VALACYCLOVIR (unknown strength) Not Available - Active CEPHALEXIN (unknown strength) Not Available - Active NORTRIPTYLINE HCL (unknown strength) Not Available - Active FOLIC ACID (unknown strength) Not Available - Active FLUOCINONIDE (unknown strength) Not Available - Active ESTRADIOL (unknown strength) Not Available - Active DILT-XR (unknown strength) Not Available - Active IMPOYZ (unknown strength) Not Available - Active CALCIUM PETITES (unknown strength) Not Available - Active BUSPIRONE HCL (unknown strength) Not Available - Active Procedures [...] on Encounter [facility], [address], [facility] [place], [place], [id number], [place] tel:[phone] No Information [facility]. [facility], [address], [place], [place], [id number] , [place]. [phone] Office/Outpat ient Visit,Est, Mod [facility], [address], [place], [place], [id number], [place] tel:[phone] [facility] Other forms of scoliosis, thoracolumbar regionL2 wedge compression fracture, initial encounter for closed fractureSpondy lolisthesis, lumbar region 0 Kwame Usha. [facility], [address], [place], [place], [address] , [place]. [phone] Referring Provider: Rakel Arvizu, [facility] [address] [place], [address]. tel:[phone] Office/Outpat ient Visit,Est, Mod [facility], [address], [facility] [place], [place], [id number], [place] tel:[phone] [facility] L2 wedge compression fracture, initial encounter for closed fractureOther forms of scoliosis, thoracolumbar regionSpondylo listhesis, lumbar region 0 Kwame Kerr. [facility], [address], [place], [place], [id number] , . tel:[phone] Referring Provider: Rakel Arvizu [facility] [address], [place], [address]. tel:[phone] Office/Outpat ient Visit,[facility], [facility], [address], [place], [place], [id number], [place] tel:[phone] [facility] L2 wedge compression fracture, initial encounter for closed fractureOther forms of scoliosis, thoracolumbar regionSpondylo listhesis, lumbar region 0 Kwame Kerr. [facility], [address], [place], [place], [address] , [place]. tel:[phone] Referring Provider: Rakel Arvizu [facility] [address] [place], [address]. tel:[phone] Family History Family Member Type Diagnosis Age At Onset No Information Payers Payer name Insurance type Covered democrat ID Authoralethaa tishannon(s) Medicare MB [id number] [facility] [id number] [facility] [id number] Social History Type Description Quantity Date Captured [...]
--- OUTSIDE RECORDS SUMMARY | 2023-05-20 11:32 | XMS_ITS | Continuity of Care Document ---
Author Name Unknown Organization [facility] Address [address] [place] [address] Phone Care Team Providers Care Clerk Guide Name Role Phone Adam AMADOR, Helder Jimenez [...] times every day 5 MG - Active fluocinonide 0.05 % topical cream apply by topical route 2 times every day to the affected area(s) 0.00 - Active Calcium 600 mg calcium (1,500 mg) tablet - Active folic acid 800 mcg tablet take 1 tablet by oral route every day 0.8 MG - Active cranberry 500 mg capsule take 1 Capsule by Oral route every day 1 Capsule - Active Tylenol Arthritis Pain 650 mg tablet,extended release take 2 tablet by oral route every 8 hours as needed swallowing whole with water. Do not break, crush, dissolve and/or chew. 1300 MG - Active estradiol 1 mg tablet take 1 tablet by oral route every day 1 MG - Active Probiotic 10 billion cell capsule take 1 capsule by oral route every day 1 capsule - Active multivitamin tablet take 1 tablet by oral route every day with food - Active Restasis 0.05 % eye drops in a dropperette instill 1 drop by ophthalmic route every 12 hours into affected eye(s) 1.00 drop - Active furosemide 20 mg tablet take 1 tablet by oral route every day 20 MG - Active omeprazole 20 mg capsule,delayed release take 1 capsule by oral route every day before a meal 20 MG - Active pilocarpine 5 mg tablet take 1 tablet by oral route 3- 4 times every day 1 tablet - Active Procedures Procedure Date Office/Outpatient Visit, [...] Antibodies Dna Antibody, Single Strand Dna Antibody, [place] Nuclear Antigen Antibodies Rheumatoid Factor, IGM Rheumatoid Factor, IGG, IGA Advance Directives Directive Yes / No Effective Date File Name No Information Encounters Encounter Description Practice Location Reason(s) For Visit Diagnoses Date Provider Providers Copied on Encounter Office/Outpa tient Visit, [facility], [address], [place], [address], [place] tel:[phone] [facility], 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 [address], [address], [place]. tel:[phone] Referring Provider: Helder Jain, [address], [place], [address]. tel:[phone] Office/Outpa tient Visit, [facility], [address], [place], [address], [place] tel:[phone] [facility], Sicca syndrome, unspecifiedWe akness 3 Lebedoff Helder. [address], [place], [place], [facility], [place]. tel:[phone] Referring Provider: Helder Jain, [address], [place], [address]. tel:[phone] Office/Outpa tient Visit, Est [facility], [address], [place], [address], [place] tel:[phone] [facility], Sicca syndrome, unspecifiedPa in in left shoulder 2 Lebedoff Helder. [address], [place], [place], [facility], [place]. tel:[phone] Referring Provider: Helder Jain, [address], [place], [place], [facility]. tel:[phone] Office/Outpa tient Visit, Est [facility], [address], [place], [address], [place] tel:[phone] [facility], Sicca syndrome, unspecifiedDy spnea 2 Lebedoff Helder. [address], [place], [place], [facility], [place]. tel:[phone] Referring Provider: Helder Medina Susy, [address], [place], [facility]. tel:[phone] Office/Outpa tient Visit, Est [facility], [address], [place], [address], [place] tel:[phone] [facility], Sicca syndrome, unspecifiedOt her terminal operator (current) drug therapyPrimar y OA of right handDyspnea Apr- 1 Adam Pendleton. [address], [place], [place], [facility], . tel:[phone] Referring Provider: Helder Jain, [address], [place], [place], [facility]. tel:[phone] Office/Outpa tient Visit, New [facility], [facility], [place], [facility], tel:[phone] [facility], Sicca syndrome, unspecifiedPa in in rt ankleOther terminal operator (current) drug therapy 0 1 Adam Pendleton. [address], [place], [place], [facility], [place]. tel:[phone] Referring Provider: Helder Jain, [address], [place], [place], [facility]. tel:[phone] [facility], [address], [place], [facility], [place] tel:[phone] [facility] No Information 0 1 Mo Sullivan. [facility] [address] [place] [address] [address], [place], [place], [facility], . tel:[phone] Family History Family Member Type Diagnosis Age At Onset No Information Immunizations Vaccine Date Status Comments COVID-19 Moderna administered Source: Ot er Provider COVID-19 Pfizer administered Note: 1 ; Source: Other Provider Payers Payer name Insurance type Covered republican ID Dena quach(s) Medicare MB [id number] [facility] [id number] Social History Type Description Quantity Date Captured Comments Alcohol Use Details Caffeine Use Details Tobacco Use Status Current non-smoker Smoking Status Never smoker She gabi es in [place] with her . She is retired. She [...] diagnosis of Sjogren's syndrome manifested as + TINA/SSA/INGOT PASSER, 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 This appears to be well controlled currently. Ideally, this would not have been treated with terminal operator prednisone, but as she has been on [...]
[2023-05-20 11:39] LABS: Sodium* 144 mmol/L (135-149)
[2023-05-20 11:42] LABS: Basophils Absolute Auto 0.01 K/uL (0.00-0.30); Basophils Percent Auto 0.2 % (0.0-3.0); Eosinophils Absolute Auto 0.08 K/uL (0.00-0.50); Eosinophils Percent Auto 1.2 % (0.0-7.0); Hematocrit 42.7 % (33.0-51.0); Hemoglobin* 13.5 gm/dL (12.0-16.0); Immature Granulocytes Abs Auto 0.03 K/uL (0.00-0.30); Immature Granulocytes Pct Auto 0.5 %; Lymphocytes Percent Auto 18.3 % (20-44); Mean Corpuscular HGB Conc 32 gm/dL (32-36); Mean Corpuscular Hemoglobin 32 pg (26-34); Mean Corpuscular Volume 100 fL (80-100); Monocytes Percent Auto 10.8 % (0.0-11.0); Neutrophils Absolute Auto 4.43 K/uL (1.7-7.0); Platelet Count* 196 K/uL (140-440); RDW Coefficient of Variation % 13.7 % (11.5-15.5); Red Blood Count 4.28 m/uL (4.00-5.20); White Blood Count* 6.41 K/uL (4.50-11.00)
[2023-05-20 11:45] LABS: Troponin, Point-of-Care* 0.01 ng/ml (0.01-0.04)
[2023-05-20 11:45] LABS: Slide Review Reflex No
[2023-05-20 11:55] LABS: INR 1.69 (0.91-1.10); Prothrombin Time 21.1 Seconds
[2023-05-20 11:59] LABS: Chloride* 105 mmol/L (96-114); Potassium* 3.7 mmol/L (3.6-5.1)
[2023-05-20 12:02] LABS: Anion Gap 11 mEq/L (7-15); Carbon Dioxide* 28 mmol/L (20-32); Creatinine* 0.9 mg/dL (0.5-1.5); Est. Creatinine Clearance* 42.86; Estimated Glomerular Filt Rate 64 ml/min
[2023-05-20 12:03] LABS: Blood Urea Nitrogen* 25 mg/dL (7-30); Glucose* 88 mg/dL (60-115)
== END 2023-05-20 12:53 | disposition home or self-care (01) ==
PROVIDERS: Emergency Provider Emergency Medicine Emergency Medical Services; PCP Family Medicine
DX: R07.9 Chest pain, unspecified (principal)
CPT/HCPCS: 36415; 80048; 84484; 85025; 85610; 93005; 99284

== ENCOUNTER 2023-06-29 09:50 | Outpatient (CLI) | payer MEDICARE, BC, SELFPAY | END 2023-06-29 09:51 | disposition home or self-care (01) | LOC: FRMREF 09:50 | PROVIDERS: PCP Family Medicine; Visit Provider Family Medicine | DX: Z79.01 Long term (current) use of anticoagulants (principal) | CPT/HCPCS: 85610 ==

== ENCOUNTER 2023-10-28 12:49 | Outpatient (CLI) | payer OTHER, SELFPAY ==
--- OUTSIDE RECORDS SUMMARY | 2023-10-28 12:52 | XMS_ITS | Data Portability ---
Author Name Unknown Address [address] [place] [address] Phone [phone] Organization [facility] Address [address] [place] [address] Care Team Providers Care Counter Intelligence Agent Name Role Phone [facility] Primary Care Provider Assessment No assessment recorded. Plan of Treatment Reminders Order Date Submit Date Provider Last Modified By Organization Details Last Modified Time Details Appointments ESTABLISH ED 20 2023 09:00A M ELMA Blanco Not available Not available Not available ESTABLISH ED 45 2023 09:30A M DEMETRI Denis Not available Not available Not available Lab urinalysi s, dipstick 2021 022 [facility], [address], [place], [address], 09/14/2021 10:41:46 urinalysi s, dipstick 2021 022 [facility], [address], [place], [address], 08/03/2021 11:48:36 Referral None recorded. Procedures None recorded. Surgeries None recorded. Imaging None recorded. Medication Orders Myrbetriq 50 mg tablet,ex tended release 2021 022 [email or web address] ([facility]), [address] [place], [address], 11/12/2021 11:33:16 Gemtesa 75 mg tablet 2021 022 [email or web address] Not available 11/12/2021 11:33:22 Gemtesa 75 mg tablet 2021 MELISSA [id number], [facility] [address], [address], 11/12/2021 11:33:54 Theracran 650 mg capsule 2019 020 [facility], [address] [place] [address], [id number], 05/13/2020 10:33:26 Patient TargetsNo targets recorded. Patient Instructions Encounter Date Encounter Id Patient Instructions Last Modified By Organization Details Last Modified Time 04/28/2023 [id number] Over Active Blad betty (OAB): -Managed with interstim. Happy with treatment. -Saw Demetri today. Reprogramming as needed. -The OAB Pathway was reviewed, including fluid restriction, bladder irritants, and pelvic floor physical therapy -Failed myrbetriq due to side effects (nausea and fatigue) in the past. 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 -Taking Gemtesa prn due to being expensive. -Follow up 12 months, sooner if needed [email or web address] Not available 04/28/2023 11:58:26 12/06/2022 [id number] Test each progra m for at least 2 weeks, adjusting amplitude as needed. May remain on a program as long as it is effective. Return as needed for reprogramming. [email or web address] Not available 12/06/2022 10:55:41 04/09/2022 [id number] Test each progra m for at least 2 weeks, adjusting amplitude as needed. May remain on a program as long as it is effective. Return as needed for reprogramming. [email or web address] Not available 04/09/2022 12:34:22 Patient states t hat Gemtesa samples were effective, but the rx was too expensive, so she stopped taking. She would like to try the Gemtesa again, but wonders of it is ok t take every other day, to spread the prescription out, and decrease the expense. I will ask MICHELET Blanco. [email or web address] Not available 04/09/2022 12:37:43 11/12/2021 [id number] Over Active Blad betty (OAB): -Managed with interstim. Content with treatment. -Reprogramming as needed with Demetri. -The OAB Pathway was reviewed, including fluid restriction, bladder irritants, and pelvic floor physical therapy, and OAB medications. Avoid anticholenergics with sjogrens. -Gemtesa too expensive. Discontinued myrbetriq 50 mg due to side effects. -Follow up in 6 months with Demetri, sooner if issues Time on phone: 8 minutes [email or web address] Not available 11/12/2021 11:46:55 09/14/2021 [id number] Over Active Blad betty (OAB): -Managed with interstim. Happy with treatment. -Saw Demetri today. Reprogramming as needed. -The OAB Pathway was reviewed, including fluid restriction, bladder irritants, and pelvic floor physical therapy -Stop Gemtesa due to inexpensive. -Start myrbetriq 50 mg, Rx already sent. 2 weeks samples provided. -Follow up in 6-8 weeks with PVR check, sooner if issues [email or web address] Not available 09/14/2021 10:49:32 09/14/2021 [id number] Test each progra m for at least 2 weeks, adjusting amplitude as needed. May remain on a program as long as it is effective. Return as needed for reprogramming. [email or web address] Not available 09/14/2021 10:07:26 Patient states t hat Gemtessa samples were very effective, but it is not covered by her insurance. She was also given a rx for Myrbetriq. [email or web address] Not available 09/14/2021 10:08:49 08/03/2021 [id number] s/p interstim surescan -ok for MRIs -doing really well and pleased but occ with UUI 90% better, she is still bothered that she would do more and will give gemtesa 75mg--to see in 6-8 week with PA and with demetri. -to call [facility] [employer] re clitoral fusion/LS. -theracran (cranberry supplement) -to let me know if more utis Not available 08/03/2021 11:56:59 11/26/2020 [id number] Test each progra m for at least 2 weeks, adjusting amplitude as needed. May remain on a program as long as it is effective. Return as needed for reprogramming. Not available 11/27/2020 12:32:23 Reviewed the use of the smart asp net programmer, and provided handout. Instructed the patient to lay down, with her legs above the level of her heart for at least 1 hour in the late afternoon. This may increase urinary frequency for a couple of hours in the evening, but should help to decrease the nocturia. [email or web address] Not available 11/27/2020 12:46:50 11/11/2020 [id number] sp interstim surescan -ok for MRIs -healing well -to see me in 12 months, will have her see demetri now for programmign options -doing really well and pleased but occ with UUI 90% better -to call [facility] re clitoral fusion/LS. -theracran (cranberry supplement) -to let me know if more utis [email or web address] Not available 11/11/2020 12:16:02 05/13/2020 [id number] sp interstim 6 w igiugig ago -ok for MRIs -healing well -to see me in 6 months, to call if any issues or needs programming -to call [facility] [employer] re clitoral fusion/LS. -to start theracran (cranberry supplement) -to let me know if more utis Not available 05/13/2020 10:31:23 04/15/2020 [id number] sp Interstim -- healing well educated more today to see in 1mo, reminded to call if any questions with the asp net programmer. Not available 04/15/2020 10:12:25 Reason for Referral None Reported. Results Created Date Observation Date Name Description Value Unit Range Abnormal Flag LastModifiedBy Organization Detail LastModifiedTime 08/03/19 22 08/03/2021 UA DIP CS ADVAN TUS color -advantus yellow yellow Not Available [facility] [address], [place], [address], 08/03/2021 11:48:36 08/03/19 22 08/03/2021 UA DIP CS ADVAN TUS appearance -advantus clear clear Not Available [facility] [address], [place], [address], 08/03/2021 11:48:36 08/03/19 22 08/03/2021 UA DIP CS ADVAN TUS glucose -advantus negati ve mg/dL negati ve Not Available [facility] [address], [place], [address], 08/03/2021 11:48:36 08/03/19 22 08/03/2021 UA DIP CS ADVAN TUS bilirubin -advantus negati ve negati ve Not Available [facility] [address], [place], [address], 08/03/2021 11:48:36 08/03/19 22 08/03/2021 UA DIP CS ADVAN TUS ketones -advantus negati ve mg/dL negati ve Not Available [facility] [address], [place], [address], 08/03/2021 11:48:36 08/03/19 22 08/03/2021 UA DIP CS ADVAN TUS sp. gravity -advantus 1.010 1.010- 1.025 Not Available [facility] [address] [place] [address] [address], [place], [address], 08/03/2021 11:48:36 08/03/19 22 08/03/2021 UA DIP CS ADVAN TUS pH -advantus 5.5 5.0-8. 0 Not Available [facility] [address] [facility] [address], [place], [address], 08/03/2021 11:48:36 08/03/19 22 08/03/2021 UA DIP CS ADVAN TUS protein -advantus negati ve mg/dL negati ve Not Available [facility] [address] [place] [address] [address], [place], [address], 08/03/2021 11:48:36 08/03/19 22 08/03/2021 UA DIP CS ADVAN TUS urobilinogen -advantus 0.2 normal Not Available [facility] [address] [place] [address] [address], [place], [address], 08/03/2021 11:48:36 08/03/19 22 08/03/2021 UA DIP CS ADVAN TUS nitrites -advantus negati ve negati ve Not Available [facility] [address] [place] [address] [address], [place], [address], 08/03/2021 11:48:36 08/03/19 22 08/03/2021 UA DIP CS ADVAN TUS blood -advantus small negati ve abnormal Not Available [facility] [address] [place] [address] [address], [place], [address], 08/03/2021 11:48:36 08/03/19 22 08/03/2021 UA DIP CS ADVAN TUS leukocytes -advantus trace negati ve abnormal Not Available [facility] [address] [place] [address] [address], [place], [address], 08/03/2021 11:48:36 08/03/19 22 08/03/2021 UA DIP CS ADVAN TUS performed by aislinn Ingram Not Available [facility] [address] [place] [address] [address], [place], [address], 08/03/2021 11:48:36 08/03/19 22 08/03/2021 UA DIP CS ADVAN TUS total urine volume (mL) 20 /mL Not Available [facility] [address] [place] [address] [address], [place], [address], 08/03/2021 11:48:36 08/03/19 22 08/03/2021 UA MICRO SCOPI C U-WBC 0 - 2 [hpf] 0 - 2 Not Available [facility] [address] [place] [address] [address], [place], [address], 08/03/2021 11:48:38 08/03/19 22 08/03/2021 UA MICRO SCOPI C U-RBC 0 - 2 [hpf] 0 - 2 Not Available [facility] [address], [place], [address], 08/03/2021 11:48:38 08/03/19 22 08/03/2021 UA MICRO SCOPI C bacteria small [hpf] negati ve abnormal Not Available [facility] [address] [place] [address] [address], [place], [address], 08/03/2021 11:48:38 08/03/19 22 08/03/2021 UA MICRO SCOPI C squamous epi small /lpf negati ve,sma ll Not Available [facility] [address] [place] [address] [address], [place], [address], 08/03/2021 11:48:38 09/15/19 22 09/14/2021 UA DIP CS ADVAN TUS color -advantus yellow yellow Not Available [facility] [address] [place] [address] [address], [place], [address], 09/14/2021 10:41:46 09/15/19 22 09/14/2021 UA DIP CS ADVAN TUS appearance -advantus clear clear Not Available [facility] [address] [place] [address] [address], [place], [address], 09/14/2021 10:41:46 09/15/19 22 09/14/2021 UA DIP CS ADVAN TUS glucose -advantus negati ve mg/dL negati ve Not Available [facility] [address] [place] [address] [address], [place], [address], 09/14/2021 10:41:46 09/15/19 22 09/14/2021 UA DIP CS ADVAN TUS bilirubin -advantus negati ve negati ve Not Available [facility] [address] [place] [address] [address], [place], [address], 09/14/2021 10:41:46 09/15/19 22 09/14/2021 UA DIP CS ADVAN TUS ketones -advantus negati ve mg/dL negati ve Not Available [facility] [address], [place], [address], 09/14/2021 10:41:46 09/15/19 22 09/14/2021 UA DIP CS ADVAN TUS sp. gravity -advantus 1.010 1.010- 1.025 Not Available [facility] [address], [place], [address], 09/14/2021 10:41:46 09/15/19 22 09/14/2021 UA DIP CS ADVAN TUS pH -advantus 6.0 5.0-8. 0 Not Available [facility] [address] [place] [address] [address], [place], [address], 09/14/2021 10:41:46 09/15/19 22 09/14/2021 UA DIP CS ADVAN TUS protein -advantus negati ve mg/dL negati ve Not Available [facility] [address] [place] [address] [address], [place], [address], 09/14/2021 10:41:46 09/15/19 22 09/14/2021 UA DIP CS ADVAN TUS urobilinogen -advantus 0.2 normal Not Available [facility] [address], [place], [address], 09/14/2021 10:41:46 09/15/19 22 09/14/2021 UA DIP CS ADVAN TUS nitrites -advantus negati ve negati ve Not Available [facility] [address] [place] [address] [address], [place], [address], 09/14/2021 10:41:46 09/15/19 22 09/14/2021 UA DIP CS ADVAN TUS blood -advantus small negati ve abnormal Not Available [facility] [address], [place], [address], 09/14/2021 10:41:46 09/15/19 22 09/14/2021 UA DIP CS ADVAN TUS leukocytes -advantus negati ve negati ve Not Available [facility] [address], [place], [address], 09/14/2021 10:41:46 09/15/19 22 09/14/2021 UA DIP CS ADVAN TUS performed by carlitos Ruiz Not Available [facility] [address], [place], [address], 09/14/2021 10:41:46 09/15/19 22 09/14/2021 UA DIP CS ADVAN TUS total urine volume (mL) 20cc /mL Not Available [facility] [address] [place] [address] [address], [place], [address], 09/14/2021 10:41:46 09/15/19 22 09/14/2021 UA MICRO SCOPI C U-WBC 0 - 2 [hpf] 0 - 2 Not Available [facility] [address], [place], [address], 09/14/2021 10:41:47 09/15/19 22 09/14/2021 UA MICRO SCOPI C U-RBC 0 - 2 [hpf] 0 - 2 Not Available [facility] [address], [place], [address], 09/14/2021 10:41:47 09/15/19 22 09/14/2021 UA MICRO SCOPI C bacteria small [hpf] negati ve abnormal Not Available [facility] [address], [place], [address], 09/14/2021 10:41:47 09/15/19 22 09/14/2021 UA MICRO SCOPI C squamous epi small /lpf negati ve,sma ll Not Available [facility] [address], [place], [address], 09/14/2021 10:41:47 04/02/20 20 04/01/2020 XR, abdom en No observ ation record ed. [facility] [address] [facility] [facility] [place], [address], 04/02/2020 11:32:57 Result Notes None recorded. Problems Name Status Onset Date Resolution Date Notes Provider Name and Address Organization Details Recorded Time Chronic cystitis Active 2018 N30.20 : Chronic cystitis Not Available [facility] 0 23:40:26 Overactive bladder Active 2018 N32.81 : Bladder muscle dysfunction - overactive Not Available [facility] 0 23:40:26 Benign neoplastic disease Active [address] [facility] 0 09:58:09 Tear film insufficiency Active 2019 Daphne felix [facility] 0 09:58:21 [facility] Hyperlipidemia Active 2019 Daphne felix [facility] 0 09:58:36 Heart disease Active [address] [facility] 3 11:27:33 Problem Notes None recorded. Procedures Surgical History Date Name Laterality Status Provider Name and Address Organization Details Recorded Time 04/28/20 23 Sacral neuromodulation w/o reprogramming completed ELMA Blanco [address], [place], [address], [facility] 04/28/2023 11:57:28 04/28/20 23 Bladder Scan completed Radhika felix [facility] 04/28/2023 11:36:21 12/07/19 23 Sacral neuromodulation w/o reprogramming completed Demetri felix [facility] 12/06/2022 11:08:45 10/07/20 22 Sacral Stimulator Reprogramming completed Demetri Bosch null, [facility] 04/09/2022 12:49:34 09/15/19 22 Bladder Scan completed Merry Ocampo null, [facility] 09/14/2021 10:25:15 09/15/19 22 Sacral neuromodulation w/o reprogramming completed Demetri felix, [facility] 09/14/2021 10:15:12 08/03/19 22 Past Data Reviewed completed Charlotte Smith MD [address] [place] [address],[address], [address], [facility] 08/03/2021 08:29:52 08/03/19 22 [facility] 11:50:03 11/27/19 21 Sacral Stimulator Reprogramming completed Demetri felix, [facility] 11/27/2020 12:44:01 09/17/19 20 Implant neuroelectrodes completed Not Available [facility] 12/13/2019 18:11:39 11/29/19 19 Insert bladder catheter completed Not Available [facility] 12/13/2019 18:11:39 11/14/19 15 Colonoscopy completed Lucinda felix, [facility] 11/11/2020 11:57:08 11/29/19 09 Total hip arthroplasty completed Not Available [facility] 12/13/2019 18:11:39 11/29/19 00 Unlisted procedure breast completed Not Available [facility] 12/13/2019 18:11:39 Appendectomy add-on completed Not Available [facility] 12/13/2019 18:11:39 Imaging Results Imaging Date Name Status LastModified by Organiz ation Details LastModified Time 04/01/2020 XR, abdomen completed [facility] [address] [facility] [place], [address], 04/02/2020 11:32:57 Procedure Notes None recorded. Medical Equipment None Reported. Allergies Allergen ID Allergen Name Allergen Category Reaction Reaction Severity Criticality Documentation Date Start Date Code Code System Note Provider Name and Address Organization Details Recorded Time 19861108 Nitroimid azole (substanc e) medicatio n Not available Not available Not available 12/12/2019 50921 5001 SNOMED Not Available [facility] 0 23:50:45 907845 sulindac medicatio n Not available Not available Not available 12/12/2019 01972 RxNorm Not Available [facility] 0 23:50:45 261719 Medicinal product containin g penicilli n and acting as antibacte rial agent (product) medicatio n itching Not available Not available 12/12/2019 39412 05 SNOMED Not Available [facility] 0 23:50:45 954061 atorvasta tin medicatio n Not available Not available Not available 12/12/2019 15122 RxNorm Not Available [facility] 0 23:50:45 176686 tetracycl ine medicatio n Not available Not available Not available 12/12/2019 87482 RxNorm Not Available [facility] 0 23:50:45 746221 alendrona te sodium medicatio n Not available Not available Not available 12/12/2019 50250 2 RxNorm Not Available [facility] 0 23:50:45 127309 amoxicill in medicatio n Not available Not available Not available 12/12/2019 723 RxNorm Not Available [facility] 0 23:50:45 770489 oxybutyni n chloride Not available dizziness Not available Not available 12/12/2019 86336 RxNorm fatig ue Not Available [facility] 0 23:50:45 719815 aspirin medicatio n Not available Not available Not available 12/12/2019 1191 RxNorm Not Available [facility] 0 23:50:46 125047 losartan Not available Not available Not available Not available 12/12/2019 43875 RxNorm Not Available [facility] 0 23:50:46 239538 estrogens , conjugate d ([facility]) medicatio n Not available Not available Not available 12/12/2019 4099 RxNorm Not Available [facility] 0 23:50:46 068482 ciproflox acin medicatio n Not available Not available Not available 12/12/2019 2551 RxNorm Not Available [facility] 0 23:50:46 124947 hydrochlo rothiazid e medicatio n Not available Not available Not available 12/12/2019 5487 RxNorm Not Available [facility] 0 23:50:46 141630 metoprolo l Not available Not available Not available Not available 12/12/2019 6918 RxNorm Not Available [facility] 0 23:50:46 136811 naproxen medicatio n Not available Not available Not available 12/12/2019 7258 RxNorm Not Available [facility] 0 23:50:46 511855 clindamyc in Not available Not available Not available Not available 12/12/2019 2582 RxNorm Not Available [facility] 0 23:50:46 678829 Substance with sulfonami de structure and antibacte rial mechanism of action (substanc e) medicatio n Not available Not available Not available 11/11/2020 78807 8003 SNOMED [facility] 11:56:30 425391 Myrbetriq medicatio n swelling Not available Not available 10/05/2021 01495 92 RxNorm [facility] 13:18:14 667387 Sambucus Elderberr y Immune medicatio n Not available Not available Not available 04/09/[address] [facility] 2 12:14:11 Medications Name Sig Start Date Stop Date Status Note LastModified by Organization Details LastModified Time compounded medication 1 fingerful topically 3 night/wee k 04/28 completed Not Available Not Available Not Available compounded medication 1 fingerful topically 3 night/wee k 2019 active Not Available Not Available Not Avai lable Miralax 17 gram oral powder packet Take 1 packet every day by oral route. active Not Available Not Available No t Available buspirone 5 mg tablet TAKE 1 TABLET BY MOUTH 3 TIMES DAILY active Not Available Not Available No t Available pilocarpine 5 mg tablet TAKE 1 TABLET BY MOUTH 3 TIMES DAILY active Not Available Not Available No t Available prednisone 10 mg tablet TAKE 1 TABLET BY MOUTH EVERY OTHER DAY active Not Available Not Available No t Available doxycycline hyclate 100 mg capsule TAKE 1 CAPSULE BY MOUTH TWICE A DAY FOR 10 DAYS active Not Available Not Available No t Available pilocarpine 1 % eye drops INSTILL 1 DROP INTO AFFECTED EYE(S) BY OPHTHALMI C ROUTE EVERY 12 HOURS 09/14 completed Not Available Not Available Not Available azithromyci n 250 mg tablet TAKE 2 TABLETS BY MOUTH TODAY, THEN TAKE 1 TABLET DAILY FOR 4 DAYS 04/28 completed Not Available Not Available Not Available fosfomycin tromethamin e 3 gram oral packet take 1 pack mixed in 6 oz of water; repeat in 72 hours. 04/28 completed Not Available Not Available Not Available fluconazole 150 mg tablet TAKE 1 TABLET ORALLY AND REPEAT IN 3 DAYS IF SYPMTOMS ARE STILL PRESENT 04/28 completed Not Available Not Available Not Available valacyclovi r 1 gram tablet TAKE ONE TABLET BY MOUTH THREE TIMES DAILY 08/03 completed Not Available Not Available Not Available senna 8.6 mg tablet TAKE 1 TABLET BY MOUTH TWICE DAILY NEEDED FOR CONSTIPAT ION. (OTC, NOT COVERED) active Not Available Not Available No t Available diltiazem CD 240 mg capsule,ext ended release 24 hr TAKE 1 CAPSULE BY MOUTH ONE TIME DAILY active Not Available Not Available No t Available famotidine 40 mg tablet TAKE 1 TABLET BY MOUTH ONE TIME DAILY active Not Available Not Available No t Available warfarin 2.5 mg tablet TAKE 1 TABLET BY MOUTH EVERY DAY active Not Available Not Available No t Available diltiazem 120 mg tablet Take 1 tablet 3 times a day by oral route. active Not Available Not Available No t Available lorazepam 0.5 mg tablet TAKE 1/2 TABLET BY MOUTH TWICE DAILY NEEDED active Not Available Not Available No t Available Mapap (acetaminop hen) 500 mg capsule TAKE 1-2 CAPS ORALLY EVERY 6 HOURS NEEDED FOR PAIN, MAX DAILY DOSE: 4000MG PER DAY active Not Available Not Available No t Available benzonatate 100 mg capsule TAKE ONE OR TWO CAPSULES BY MOUTH THREE TIMES DAILY NEEDED active Not Available Not Available No t Available cephalexin 500 mg capsule TAKE 1 CAPSULE BY MOUTH TWICE DAILY 08/03 completed Not Available Not Available Not Available betamethaso ne dipropionat e 0.05 % topical cream APPLY TOPICALLY TO AFFECTED AREA ONCE DAILY NEEDED active Not Available Not Available No t Available omeprazole 20 mg capsule,del ayed release TAKE 1 CAPSULE BY MOUTH TWICE A DAY active Not Available Not Available No t Available mupirocin 2 % topical ointment APPLY TOPICALLY 3 TIMES A DAY active Not Available Not Available No t Available furosemide 20 mg tablet TAKE ONE TABLET BY MOUTH DAILY NEEDED FOR EDEMA active Not Available Not Available No t Available Synthroid 112 mcg tablet TAKE 1 TABLET BY MOUTH EVERY DAY active Not Available Not Available No t Available clobetasol 0.05 % topical ointment APPLY 1GM TWICE WEEKLY As Needed for lichen sclerosis active Not Available Not Available No t Available fluocinonid e 0.05 % topical cream APPLY 1 GRAM TOPICALLY TO RASH ON LEGS DAILY NEEDED active Not Available Not Available No t Available betamethaso ne dipropionat e 0.05 % topical ointment APPLY TOPICALLY TO THE AFFECTED AREA(S) TWICE DAILY FOR 7 DAYS, THEN EVERY OTHER DAY FOR 7 DAYS, THEN 2-3 TIMES PER WEEK. 11/12 completed Not Available Not Available Not Available oxycodone 5 mg tablet TAKE 1/2-1 TAB (2.5 - 5 MG) ORALLY EVERY 4-6 HOURS NEEDED FOR PAIN, MAX 6/ DAY MINIMIZE/ D/C NBA active Not Available Not Available No t Available Restasis 0.05 % eye drops in a dropperette PLACE 1 DROP INTO BOTH EYES EVERY 12 HOURS. active Not Available Not Available No t Available nitrofurant oin monohydrate /macrocryst als 100 mg capsule TAKE ONE CAPSULE BY MOUTH TWICE DAILY FOR 7 DAYS 08/03 completed Not Available Not Available Not Available levothyroxi ne 08/03 completed Not Available Not Available Not Available fluocinolon e active Not Available Not Available Not Available omeprazole 08/03 completed Not Available Not Available Not Available warfarin 08/03 completed Not Available Not Available Not Available lorazepam 08/03 completed Not Available Not Available Not Available prednisone 08/03 completed Not Available Not Available Not Available buspirone 08/03 completed Not Available Not Available Not Available Prolia 60 mg/mL subcutaneou s syringe INJECT THE CONTENTS OF 1 SYRINGE (60MG) SUBCUTANE OUSLY ONCE EVERY SIX MONTHS* active Not Available Not Available No t Available Probiotic active Not Available Not Samantha ilable Not Available Theracran 650 mg capsule Take 1 capsule every day by oral route. 2019 active Not Available Not Available Not Avai lable Myrbetriq 50 mg tablet,exte nded release 1 tablet po daily 11/12 completed Not Available Not Available Not Available calcium 166.75 mg-vit D3 166.75 unit-vit C-vit K2-minerals capsule Take by oral route. active Not Available Not Available No t Available Restasis MultiDose 0.05 % eye drops INSTILL 1 DROP INTO THE EYE(S) TWICE A DAY active Not Available Not Available No t Available Tiadylt ER 240 mg capsule,ext ended release TAKE 1 CAPSULE BY MOUTH DAILY. active Not Available Not Available No t Available Gemtesa 75 mg tablet TAKE 1 TABLET BY MOUTH EVERY DAY active Not Available Not Available No t Available BinaxNOW COVID-19 Ag Self Test kit REFER TO MANUFACTU RER INSTRUCTI ONS INCLUED IN PACKAGING 04/28 completed Not Available Not Available Not Available Vitals Date Recorded Body height Body mass index (BMI) Body weight Provider Name and Address Organization Details Last Updated DateTime 04/09/2022 154.94 cm 27.8 kg/m2 85826.08 g Demetri felix [facility] 04/09/2022 12:13:52 Date Recorded Body height Body mass index (BMI) Body weight Provider Name and Address Organization Details Last Updated DateTime 12/06/2022 154.94 cm 25.5 kg/m2 47030.97 g Demetri felix [facility] 12/06/2022 10:41:56 Date Recorded Body height Body mass index (BMI) Body weight Provider Name and Address Organization Details Last Updated DateTime 04/15/2020 157.48 cm 26.3 kg/m2 89062.3 g Daphne felix [facility] 04/15/2020 10:05:09 Date Recorded Body height Body mass index (BMI) Body weight Provider Name and Address Organization Details Last Updated DateTime 04/28/2023 154.94 cm 25.5 kg/m2 04888.97 g Radhika felix [facility] 04/28/2023 11:25:35 Date Recorded Body height Body mass index (BMI) Body weight Provider Name and Address Organization Details Last Updated DateTime 05/13/2020 157.48 cm 26.3 kg/m2 78633.3 g Daphne Ramirezrdle [facility] 05/13/2020 10:15:26 Date Recorded Body height Body mass index (BMI) Body weight Provider Name and Address Organization Details Last Updated DateTime 11/11/2020 157.48 cm 26.3 kg/m2 04094.3 g Lucinda Nuñez [facility] 11/11/2020 11:56:20 Date Recorded Body height Body mass index (BMI) Body weight Provider Name and Address Organization Details Last Updated DateTime 11/26/2020 158.75 cm 27.2 kg/m2 56834.45 g Demetri Bosch [facility] 11/26/2020 10:47:36 Date Recorded Body height Body mass index (BMI) Body weight Provider Name and Address Organization Details Last Updated DateTime 08/03/2021 158.75 cm 27.2 kg/m2 04223.45 zeus Usha Corado [facility] 08/03/2021 11:35:42 Date Recorded Body height Body mass index (BMI) Body weight Provider Name and Address Organization Details Last Updated DateTime 09/14/2021 158.75 cm 26.5 kg/m2 47046.08 g Demetri Bosch [facility] 09/14/2021 09:54:39 Date Recorded Body height Body mass index (BMI) Body weight Provider Name and Address Organization Details Last Updated DateTime 09/14/2021 158.75 cm 26.5 kg/m2 92678.08 zeus Ocampo [facility] 09/14/2021 10:08:57 Date Recorded Body height Body mass index (BMI) Body weight Provider Name and Address Organization Details Last Updated DateTime 11/12/2021 154.94 cm 27.8 kg/m2 01295.08 zeus Ocampo [facility] 11/12/2021 11:32:20 Social History Question Answer Notes LastModified by Organizat ion Details LastModified Time Tobacco Smoking Status Never Smoker Not Available [facility] 12/13/2019 02:00:45 What Is Your Level Of Alcohol Consumption? None Information not available 09/14/2021 What Is Your Level Of Caffeine Consumption? Heavy Information not available 09/14/2021 Are You Currently Employed? No Information not available 09/14/2021 Race White Information n ot available 12/13/2019 Ethnicity Not /Lat vane Information not available 09/14/2021 Preferred Language Uzbek Information not available 09/14/2021 Recreational Drug Use No Information not available 09/14/2021 Could You Be ? No Information not available 09/14/2021 Marital Status Informati on not available 12/13/2019 What Was The Date Of Your Most Recent Tobacco Screening? 12/06/2022 Information not available 12/06/2022 What Is Your Relationship Status? Information not available 09/14/2021 Are You Sexually Active? No Information not available 09/14/2021 Do You Use Any Illicit Or Recreational Drugs? No Information not available 09/14/2021 Has Tobacco Cessation Counseling Been Provided? No Information not available 11/12/2021 Do You Or Have You Ever Used Any Other Forms Of Tobacco Or Nicotine? No Information not available 09/14/2021 Sex: Female Functional Status None recorded. Mental Status None recorded. Family History Relationship Description Onset Age of this Age Resolved Age Notes Notes:Hypertension:Mother breast cancer:Grandmother Thyroid disease:Grandmother Diabetes:Son Thyroid disease:Mother Seizures:Son Cancer, colon:Father stroke:Son Arthritis:Mother Alcoholism:Son Heart Disease:Grandmother Arthritis:Grandmother Heart Disease:Mother Medical History Condition Response Diabetes N Sexually Transmitted Infection N Other N Bleeding Disorder Y High Blood Pressure Y Kidney Stones N High Cholesterol N GERD/Acid Reflux Y Heart Disease Y Cancer N Lung Disease N Depression N Gynecological HistoryNo gynecological history recorded. Obstetrics History GPAL:G 0 P 0 0 0 0 Immunizations Vaccine Type Date Status Provider Name and Address Organization Details Recorded Time Pneumococcal conjugate PCV 13 07/04/[address] [facility] 04/28/2023 11:25:40 Past Encounters Encounter ID Performer Location Encounter Start Date Encounter Closed Date Diagnosis/Indication Diagnosis SNOMED-CT Code [id number] Charlotte Smith MD [place] [id number] [facility],[address] [address] 04/15/2020 10:02:52 04/25/2020 12:54:57 Overactive bladder [id number] Urge incon tinence of urine [id number] Charlotte Smith MD [address] [address] 05/13/2020 10:14:48 05/13/2020 14:22:18 Overactive bladder 318953159 Urge incon tinence of urine 10105690 History of urinary tract infection [id number] Charlotte Smith MD [address] [address] 11/11/2020 11:46:55 11/11/2020 13:40:18 Overactive bladder [id number] Urge incon tinence of urine [id number] [facility] [address] [place] [phone] 11/26/2020 10:15:12 12/02/2020 15:37:48 Overactive bladder [id number] Nocturia [id number] MD Dino [facility] [address] [place] [phone] 08/03/2021 11:31:50 08/03/2021 12:09:22 Overactive bladder 423003190 Urge incon tinence of urine [id number] Nocturia [id number] ELMA Blanco [facility] [address] [place] [address] 09/14/2021 10:06:36 09/14/2021 14:16:12 Overactive bladder [id number] Urge incon tinence of urine [id number] Nocturia [id number] Demetri Bosch [facility] [address] [place], [place] [address] [place] [address] 09/14/2021 09:30:06 09/14/2021 14:31:59 Overactive bladder [id number] ELMA Blanco [facility] [address] [facility] e [address] [place] [phone] 11/12/2021 11:29:59 11/12/2021 12:37:25 Overactive bladder [id number] Urge incon tinence of urine [id number] Nocturia [id number] Demetri Bosch [facility] [address] [place] [address],[facility] e [address] [place] [phone] 04/09/2022 11:43:46 04/09/2022 13:38:20 Overactive bladder [id number] Demetri Bosch [facility] [address] [place] [address],[facility] e [address] [place] [phone] 12/06/2022 10:28:13 12/06/2022 11:24:29 Overactive bladder [id number] ELMA Blanco [facility] [address] [place] [address] [place] [phone] 04/28/2023 11:22:38 04/28/2023 12:04:03 Overactive bladder 243600040 Urge incon tinence of urine [id number] Nocturia [id number] Health Concerns Section Related Observation LastModified by Organization Detai ls LastModified Time None Recorded Concern Status LastModified by Organization Details LastModified Time None Recorded Advance Directives Directive None Recorded Payers Encounter Date Sequence Insurance Name Policy Number Policy Betancourt Covered Member ID Betancourt Member ID Guarantor Name 04/28/2023 1 [place] [employer] Patsy Beltrán [id number] Patsy Beltrán 04/28/2023 2 [facility] [id number] Patsy Beltrán [id number] Patsy Beltrán 12/06/2022 1 [place] [employer] Patsy Beltrán [id number] Patsy Beltrán 12/06/2022 2 [place] [id number] Patsy Beltrán [id number] Patsy A Wood 04/09/2022 1 [place] [employer] Patsy A Wood [id number] Patsy A Wood 04/09/2022 2 [place] [id number] Patsy A Wood [id number] Patsy A Wood 11/12/2021 1 [place] [employer] Patsy A Wood [id number] Patsy A Wood 11/12/2021 2 [place] [id number] Patsy A Wood [id number] Patsy A Wood 09/14/2021 1 [place] [employer] Patsy A Wood [id number] Patsy A Wood 09/14/2021 2 [place] [id number] Patsy A Wood [id number] Patsy A Wood 09/14/2021 1 [place] [employer] Patsy A Wood [id number] Patsy A Wood 09/14/2021 2 [place] [id number] Patsy A Wood [id number] Patsy A Wood 08/03/2021 1 [place] [employer] Patsy A Wood [id number] Patsy A Wood 08/03/2021 2 [place] [id number] Patsy A Wood [id number] Patsy A Wood 11/26/2020 1 [place] [employer] Patsy A Wood [id number] Patsy A Wood 11/26/2020 2 [place] [id number] Patsy A Wood [id number] Patsy A Wood 11/11/2020 1 [place] [employer] Patsy A Wood [id number] Patsy A Wood 11/11/2020 2 [employer] [id number] Patsy A Wood [id number] Patsy A Wood 05/13/2020 1 [place] [employer] Patsy A Wood [id number] Patsy A Wood 05/13/2020 2 [employer] [id number] Patsy A Wood [id number] Patsy Beltrán 04/15/2020 1 [place] [employer] Patsy Beltrán [id number] Patsy Beltrán 04/15/2020 2 [facility] [id number] Patsy Beltrán [id number] Patsy Beltrán Notes Date Note Type Note Provider Name and Address Organization Details Recorded Time 04/15/2020 text/html HPI Notes: sp interstim lead and IPG 9-29 doing well on program 3 vagianl was concerned as it was timing out Charlotte Smith MD [address] [place] [address],[address], [address], [facility] 04/15/2020 10:12:37 05/13/2020 text/html HPI Notes: SP Interstim lead and IPG SureScan 9-29 for OAB/UUI sx. had successful PNE prior, waited for implant as she had back fx. asks about renal cyst, proteinceauosu on mri asks about clitorial irritation, hx of LS using estrogren and clobetasol was on program 3more leaks 2-3 days ago, changed to program 4 vagianl. Charlotte Smith MD [address] [place] [address],[address], [address], [facility] 05/13/2020 10:32:36 11/11/2020 text/html HPI Notes: SP Interstim lead and IPG SureScan 9-29 for OAB/UUI sx. had successful PNE prior, waited for implant as she had back fx. asks about renal cyst, proteinceauosu on mri hx of clitorial irritation, hx of LS using estrogren and clobetasol leaking more at night 3 pads couple pads during the day maybe 90% better wishes the leakage was better no utis, hematuria feels stim in her vagina has been changing programs maybe a month ago and is better can sleep almost 4 hours a night, use to be almost every hour Charlotte Smith MD [address] [place] [address],[address], [address], [facility] 11/11/2020 12:16:47 08/03/2021 text/html HPI Notes: SP Interstim lead and IPG SureScan 04-01-20 for OAB/UUI sx. had successful PNE prior, waited for implant as she had back fx. asks about renal cyst, proteinceauosu on mri hx of clitorial irritation, hx of LS using estrogren and clobetasol leaking more at night 3 pads couple pads during the day maybe 90% better wishes the leakage was better no utis, hematuria feels stim in her vagina has been changing programs maybe a month ago and is better can sleep almost 4 hours a night, use to be almost every hour 08-03-2021 sp interstim in 2019 has some UUI at times. seen with demetri last about 1 year ago. stimulation of the InterStim is vagianl. has not changed the interstim has been on program 7. DF at times can go up to 4 hrs, or just 30 mins. inconsistent caffiene: limited 2 per day had a few infections in apr/may and none since. using estrogren/clobetasol . on Lasix as needed Charlotte Smith MD [address] [place] [address],[address], [place], [address], [facility] 08/03/2021 11:57:51 09/14/2021 text/html HPI Notes: : Patient presents to follow up for overactive bladder (OAB). Managed with interstim. Patient saw Demetri for reprogramming prior to appointment today. Improvement on Gemtesa, too expensive. She states that her symptoms are much better than prior to implant. Voids every 3-4 hours during the day and most of the time she can get to the bathroom without leakage. Wakes up to void 2-3 times. She does limit fluids after 6:30PM. She is happy with control with interstim. 08-03-2021 (Dr. Espino's) sp interstim in 2019. has some UUI at times. seen with demetri last about 1 year ago. stimulation of the InterStim is vagianl. has not changed the interstim has been on program 7. DF at times can go up to 4 hrs, or just 30 mins. inconsistent. caffiene: limited 2 per day. had a few infections in apr/may and none since. using estrogren/clobetasol . on Lasix as needed 11/26/20: (Dr. Espino's) SP Interstim lead and IPG SureScan 04-01-20 for OAB/UUI sx. had successful PNE prior, waited for implant as she had back fx. asks about renal cyst, proteinceauosu on MRI. hx of clitorial irritation, hx of LS using estrogren and clobetasol. leaking more at night 3 pads. couple pads during the day. maybe 90% better wishes the leakage was better. no utis, hematuria. feels stim in her vagina. has been changing programs maybe a month ago and is better. can sleep almost 4 hours a night, use to be almost every hour. ELMA Blanco [address] [place] [address],[address], [place], [address], [facility] 09/14/2021 10:49:41 11/12/2021 text/html HPI Notes: : Patient presents to follow up for overactive bladder (OAB). Managed with interstim. Phone visit today due to acute illness with diarrhea. Trial of myrbetriq 50 mg daily after last visit. Reports side effect of nausea and fatigue so she discontinued medication. She is not taking anything for her bladder. Reports that when she went off gemtesa before, she had about 8 weeks of good control before starting myrbetriq. Thinks the interstim is working better since reprogramming with Demetri after last visit on 09/14/21. The setting prior was working well for control she thought too. She wakes up 2-3 times a night, sleeps 3-4 hours at night. She voids about every 2-4 hours during the day. She uses 7 pads per day, most of the time is dribbles but does have gushing sometimes. Feels content with things now. 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 This visit was conducted using [employer] phone technology. Prior to conducting our health visit, the patient and I discussed the risks, benefits and alternatives to phone visits. The patient elected to proceed with the phone visit. ELMA Blanco [address] [place] [address],[facility] [address], [place], [address], [facility] 11/12/2021 11:50:24 12/06/2022 text/html HPI Notes: Frequ ent Urination ____ Urine leakage related to the feeling of Urgency ____ Urine leakage related to physical activity ____ Small amount of urine leakage (drops) ____ Difficulty emptying your bladder ____ Pain or discomfort in the lower abdominal or genital area ____ Current program: 1, 2, 3, 4, 5, 6, 7 , A, B, C Current amplitude: ____ PVR: ____ cc. Patient complaints: Is the interstim turned on? Y/N Is the stimulus uncomfortable? Y/N Does the patient have UTI? Y/N Any changes to diet? Y/N Has the patient been constipated? Y/N Any chnages in meds? Y/N Any changes in other medical conditions? Y/N Recent fall, surgery, or procedures? Y/N Impedance checked Batery checked Amplitude limit changed Amp chnaged Program changed Pulse width changed Rate chaanged Resolution changed Demetri felix [facility] 12/06/2022 11:08:58 04/28/2023 text/html HPI Notes: 04/28: Patient presents to follow up for overactive bladder (OAB). InterStim implant 04/01/[address] Smith. Last saw Demetri 12/06/22. Feels comfortable changing programs. Has not changed since she saw Demetri. Takes Gemtesa prn. Usually will take two day in a row and then happy with control. She wakes up 3-4 times a night. Does not cut back on fluids before bed as no difference. She voids every 3 hours during the day. She uses 1-2 pads per day, 1-2 at night. Fluids: always sipping on water through the day. Will drink a pop with pizza on occasion. Will have coffee in the morning, like 2 oz. Regular BM daily. She is using estrogen/clobetasol, 2-3 times per week. 11/12/21: (video) Patient presents to follow up for overactive bladder (OAB). Managed with interstim. Phone visit today due to acute illness with diarrhea. Trial of myrbetriq 50 mg daily after last visit. Reports side effect of nausea and fatigue so she discontinued medication. She is not taking anything for her bladder. Reports that when she went off gemtesa before, she had about 8 weeks of good control before starting myrbetriq. Thinks the interstim is working better since reprogramming with Demetri after last visit on 09/14/21. The setting prior was working well for control she thought too. She wakes up 2-3 times a night, sleeps 3-4 hours at night. She voids about every 2-4 hours during the day. She uses 7 pads per day, most of the time is dribbles but does have gushing sometimes. Feels content with things now. 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 09/14/21: Patient presents to follow up for overactive bladder (OAB). Managed with interstim. Patient saw Demetri for reprogramming prior to appointment today. Improvement on Gemtesa, too expensive. She states that her symptoms are much better than prior to implant. Voids every 3-4 hours during the day and most of the time she can get to the bathroom without leakage. Wakes up to void 2-3 times. She does limit fluids after 6:30PM. She is happy with control with interstim. 08-03-2021 (Dr. Schraders) sp interstim in 2019. has some UUI at times. seen with demetri last about 1 year ago. stimulation of the InterStim is vagianl. has not changed the interstim has been on program 7. DF at times can go up to 4 hrs, or just 30 mins. inconsistent. caffiene: limited 2 per day. had a few infections in apr/may and none since. using estrogren/clobetasol . on Lasix as needed 11/26/20: (Dr. Espino's) SP Interstim lead and IPG SureScan 04-01-20 for OAB/UUI sx. had successful PNE prior, waited for implant as she had back fx. asks about renal cyst, proteinceauosu on MRI. hx of clitorial irritation, hx of LS using estrogren and clobetasol. leaking more at night 3 pads. couple pads during the day. maybe 90% better wishes the leakage was better. no utis, hematuria. feels stim in her vagina. has been changing programs maybe a month ago and is better. can sleep almost 4 hours a night, use to be almost every hour. ELMA Blanco [address] [facility],[address], [place], [address], [facility] 04/28/2023 11:58:40 OBGyn Episode No OBEpisode recorded.
--- OUTSIDE RECORDS SUMMARY | 2023-10-28 12:52 | XMS_ITS | Clinical Summary ---
Author Name Unknown Organization [email or web address] Address [place], [place] [address] Care Team Providers Care Solution Make Up Operator Name Role Phone Kd Restrepo MD Unavailable [phone] Cody Veliz MD Unavailable [phone] Maritza Rendon DO Primary Care Provide r Allergies Active Allergy Reactions Criticality Noted Date Comments Amoxicillin 01/19/2007 Aspirin Rash,Itching 01/20/2006 Atorvastatin Myalgia 12/27/2014 Blood-Group Specific Substance Other - Describe In Comment Field High 09/01/2016 Patient has Anti-D. Blood product orders may be delayed. Draw one red top and two purple top tubes for all Type and Screen/Type and Crossmatch orders. Ciprofloxacin Rash 05/31/2012 Clindamycin Angioedema 06/28/2014 Sulindac Anaphylaxis 04/30/2014 Nitroimidazoles Rash 05/31/2012 Alendronate Sodium Arthralgia 11/30/2017 Hydrochlorothiazide Rash 05/04/2010 Cephalexin Hives 09/22/2020 Losartan Rash 11/08/2014 Nitrofurantoin Monohyd/M-Cryst Flushing,Headache 04/18/2020 Naproxen GI Bleeding 10/11/2006 Oxybutynin Dizziness 03/30/2021 Oxybutynin Chloride Agitation,Anxiety, Dizziness,Headache ,Nausea Only 01/19/2019 Penicillins Rash,Itching 01/20/2006 Conjugated Estrogens Rash 04/11/2015 Sulfa (Sulfonamide Antibiotics) Itching 01/20/2006 Tetracycline *Unknown 10/11/2006 Metoprolol Rash 10/10/2014 Cholecalciferol (Vitamin D3) Diarrhea 01/06/2018 Medications Medication Sig Dispensed Refills Start Date End Date Status FOLIC ACID 800 MCG TABIndications:Sicc a syndrome (HC) 1 tab daily 0 10/25/2007 Active multivitamin (MVI) tablet Take 1 tablet by mouth once daily. 0 05/04/2010 Active fluocinonide 0.05% topical (LIDEX) 0.05 % cream Apply topically to affected area(s) 2 times daily. 1 Tube 0 12/19/2013 Active LACTOBACILLUS ACIDOPHILUS (PROBIOTIC ORAL) Take 1 capsule by mouth once daily. Active clobetasol 0.05% (TEMOVATE 0.05% OINTMENT) 0.05 % ointmentIndications :Lichen sclerosus Apply topically daily for 12 weeks, then 3 times a week. 1 Tube 3 01/20/2017 Active MEDICAL SUPPLY, MISCELLANEOUS (GRADUATED COMPRESSION STOCKINGS)Indicatio ns:Varicose vein of leg For personal use. Length: calf Strength: 20-30 mmHg Circumference in cm: For calf: Ankle 22cm, Calf 36cm, 1 Packet 01/20/2017 Active polyethylene glycol (MIRALAX) 17 g powder for solution Not taking (08/05/2023). Active calcium carbonate-vitamin D3, 500 mg-400 units, (OSCAL 500 + D) tabletIndications:A ge-related osteoporosis with current pathological fracture, sequela Take 1 tablet by mouth 2 times daily before meals. 60 tablet 11/30/2017 Active PROLIA 60 mg/mL injection USE DIRECTED EVERY SIX MONTHS 1 05/29/2018 Active acetaminophen SR (TYLENOL ARTHRITIS PAIN) 650 mg Extended-Release tablet Take 1 tablet by mouth every 8 hours if needed. Max acetaminophen dose: 4000mg in 24 hrs. 0 12/31/2019 Active Cranberry 500 mg capIndications:Pred iabetes 1 capsule once a day. 0 05/26/2020 Active betamethasone dipropionate 0.05% (DIPROSONE 0.05% OINTMENT) 0.05 % ointment Apply 1 Tube topically to affected area(s) one time if needed. Pt uses 2-3 times per week 05/26/2020 Active levothyroxine (SYNTHROID) 112 mcg tabletIndications:H ypothyroidism (acquired) Take 1 tablet by mouth before breakfast. 90 tablet 3 06/18/2020 Active predniSONE (DELTASONE) 10 mg tabletIndications:M ixed connective tissue disease (HC) TAKE ONE TABLET BY MOUTH EVERY OTHER DAY 45 tablet 3 06/18/2020 Active triamcinolone (ARISTOCORT; KENALOG) 0.1 % creamIndications:At opic dermatitis, unspecified type Apply topically to affected area(s) twice daily behind the left ear for 2 weeks. 30 g 06/18/2020 Active warfarin (COUMADIN) 2.5 mg tabletIndications:A nticoagulation monitoring, INR range 2-3,Pulmonary embolism, bilateral (HC) Take by mouth 1.25 mg (2.5 mg x 0.5) every Tue; 2.5 mg (2.5 mg x 1) all other days OR as directed 11/10/2020 Active busPIRone (BUSPAR) 5 mg tabletIndications:A nxiety TAKE ONE TABLET BY MOUTH THREE TIMES DAILY 90 Tablet 11/20/2020 Active Additional Information Patient taking differently:5 mg Oral TID,Not taking x 3 weeks (08/05/2023), Reported on 08/05/2023 omeprazole (PRILOSEC) 20 mg Delayed-Release capsuleIndications: Gastroesophageal reflux disease without esophagitis TAKE ONE CAPSULE BY MOUTH EVERY DAY BEFORE A MEAL 90 Capsule 11/20/2020 Active pilocarpine (SALAGEN) 5 mg tabletIndications:D iffuse connective tissue disease (HC) TAKE ONE TABLET BY MOUTH UP TO THREE TIMES DAILY 270 Tablet 12/11/2020 Active dilTIAZem CD (CARDIZEM CD) 240 mg extended release 24 hr capsuleIndications: Essential hypertension Take 1 Capsule (240 mg) by mouth once daily. 90 Capsule 3 03/18/2023 Active furosemide (LASIX) 20 mg tabletIndications:S OB (shortness of breath),Nonrheumati c mitral valve regurgitation Take 1 Tablet (20 mg) by mouth every morning. 90 Tablet 3 03/18/2023 Active lidocaine, anorectal, 5% topical 5 % cream once daily if needed. baclor/jesu/mita/li do Active cycloSPORINE (Restasis) 0.05 % ophthalmic emulsionIndications :Dry eye syndrome, unspecified laterality Place 1 Drop into both eyes every 12 hours. 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 Pulmonary embolism, bilateral 04/10/2015 Overview: 03/06/2001 Dyslipidemia 10/23/2014 Mixed connective tissue disease 08/26/2014 Osteopenia 12/06/2012 Overview: DEXA 07/02/19: T-scores AP: 0.2, LFN -1.4, RFN N/A. FRAX 27.3% hip FRAX 6.5%. Unable to repeat DEXA due to Medicare until 01/2019. Hhistory of vertebral compression fracture. On chronic prednisone and Prolia. Continue Prolia and repeat in 2 years. Lichen sclerosus 12/06/2012 SOB (shortness of breath) on exertion 11/17/2010 Benign neoplasm of colon 07/24/2009 Overview: Colonoscopy 07/2009 polyps repeat in 5 years Colonoscopy 11/2014 polyps repeat in 5 years Impaired fasting glucose 05/06/2008 Diverticulitis of colon (without mention of hemo rrhage) 02/03/2007 Overview: Colonoscopy 03/2019 polyp, normal biopsies, repeat in 5 years Unspecified essential hypertension 10/11/2006 Chronic lymphocytic thyroiditis 10/11/2006 Senile nuclear sclerosis 01/20/2006 Overview: both Esophageal reflux Resolved Problems Problem Noted Date Diagnosed Date Resolved Date Anticoagulation monitoring, INR range 2-3 [Z79.01]; [place] Target 2.5-3.0 12/06/2016 Pessary maintenance 02/25/2016 09/28/19 20 Anticoagulation monitoring, goal range 2.0-2.6 09/19/2013 01/09/2018 Abnormal stress test 11/17/2010 011 Routine general medical exam ination at a health care facility 07/12/2009 09/28/2019 Overview: Normal CT angiogram 11/2010 Hip pain 05/06/2008 07/09/2009 Onychomycosis 05/06/2008 08/27/2008 HX OF VENOUS THROMBOSIS AND EMBOLISM 11/09/2006 12/06/2012 Bilateral pulmonary embolism 10/11/2006 11/18/2017 AFTERCARE, LONG-TERM USE, [place] DICATIONS NEC-PLAQUENIL 10/22/2003 Encounters Date Type Department Care Team Description 09/29/2023 9:00 AM CDT Orders Only [facility] [address] [place] [address] Lab, Farm Outside Order (Kd Restrepo MD PA 07/07/2023) 09/29/2023 Travel 08/29/2023 10:00 AM MANAGER MARKET DEVELOPMENT Office Visit [facility] [address] [place] [address] Tomas Page, OD Follow Up (6 Month AMD Ck ) 08/29/2023 Travel 08/05/2023 2:30 PM MANAGER MARKET DEVELOPMENT Office Visit [facility] [address] [place] [address] Olvin Haji MD Consult (NOV & DEC diarrhea every 3 days, recent positive cologaurd) 08/05/2023 Telephone [facility] [address] [place] [address] [address] Olvin Haji MD Appointment 08/05/2023 Travel 08/02/2023 Travel from Last 3 Months Immunizations Name Administration Dates Next Due AMB INFLUENZA IIV3 (AGE 65+ YRS) PF (Flu Clinic Only) 03/23/2017 AMB Influenza, IIV3 (Age >=3 years) Preserve Free (Flu Clinic Only) 04/08/2009 AMB Influenza, IIV3 (Age >=3 years)(Flu Clinic Only) 04/06/2013,04/16/2011,04/24/2008 COVID-19 vaccine ([employer] 30mcg/0.3mL) PF, MDV 09/02/2020,08/12/2020 Influenza A (H1N1), Inactiva clint (Age >=3 Years) 07/09/2009 Influenza, High-dose Inactivated 04/05/2016,04/03,04/01/2014 Influenza, IIV3 (Age >=3 years) 04/19/2012,03/25,05/10/2007 Influenza, Inactivated AIIV4 (Age 65+ Years) Preserv Free 03/20/2020 Influenza, Inactivated IIV3 (Age 65+ Years) Preserv Free 04/03/2019,03/02/2018 Pneumococcal Poly,23-Valent (Pneumovax) 10/16/19 06,04/11/1997 Pneumococcal conj 13-Valent (Prevnar 13) 015 Td (Age >=7 Years) 02/02/2004,06/15/1995 Td, Preservative Free (age >= 7 Years) 0 Tdap 11/02/2010 Zoster (Shingrix-RZV, recombinant) 09/27/2018, Family History Medical History Relation Name Comments Cancer-colon Father Arthritis Maternal Grandmother Heart Disease Maternal Grandmother Thyroid Disease Maternal Grandmother Arthritis Mother Glaucoma Mother Heart Disease Mother Hypertension Mother Thyroid Disease Mother Genetic Other GLAUCOMA-mother /mgf - POLYCYTHEMIA VERA-son~Diabetes-Son~cancer-father~heart disease-grandfather~HTN-mother Cancer-breast Paternal Grandmother Stroke Son 3 Alcoholism Son 4 Diabetes Son 5 Seizures Son 6 Relation Name Status Comments Father Maternal Grandfather Maternal Grandmother Mother Other Paternal Grandfather Paternal Grandmother Son 1 Alive Son 2 Alive Son 3 Son 4 Son 5 Son 6 Social History Tobacco Use Types Packs/Day Years Used Date Smoking Tobacco: Never Smokeless Tobacco: Never Tobacco Cessation:Counseling Given: Yes Alcohol Use Standard Drinks/Week Comments No 0 (1 standard drink = 0.6 oz pur e alcohol) PHQ-2 Answer Date Recorded PHQ-2 TOTAL SCORE 1 06/18/2020 Social Connections Answer Date Recorded Frequency of Communication with Friends and Fami ly Not on file 06/25/2021 Financial Resource Strain Answer Date R ecorded Difficulty of Paying Living Expenses Not on file 06/25/2021 Difficulty of Paying Living Expenses Not on file 06/25/2021 Sex and Gender Information Value Date Recorded Sex Assigned at Not on file Gender Identity Not on file Sexual Orientation Not on file Obstetrics History Para Term AB IAB SAB Ectopic Multiple Livin g Live Births 2 2 2 0 0 0 0 0 0 2 2 Date Outcome GA Total Labor Labor//3rd Weight Sex Delivery Anes PTL Toña A1 A5 Name Cl in 03/15 Term M Vag Jinny ng 03/23 Term M Vag Jinny ng Last Filed Vital Signs Vital Sign Reading Time Taken Comments Blood Pressure 159/65 08/05/2023 2:27 PM MANAGER MARKET DEVELOPMENT Pulse 62 08/05/2023 2:27 PM MANAGER MARKET DEVELOPMENT Temperature 36.2 ??C (97.1 ??F) 04/23/2022 8:11 AM CD T Respiratory Rate 18 03/18/2023 2:24 PM CDT Oxygen Saturation 99% 08/05/2023 2:27 PM MANAGER MARKET DEVELOPMENT Inhaled Oxygen Concentration - - Weight 64.4 kg (142 lb) 08/05/2023 2:27 PM MANAGER MARKET DEVELOPMENT Height 149.9 cm (4' 11) 03/18/2023 2:24 PM CDT Body Mass Index 28.68 03/18/2023 2:24 PM CDT Plan of Treatment Upcoming Encounters Date Type Department Care Team (Late st Contact Info) Description 11/21/2023 7:45 AM CDT Office Visit [facility] [address] [place] [address] Olvin Haji MD [address] [place] [address] 02/28/2024 10:00 AM CDT Office Visit [facility] [address] [place] [address] [place] [address] [place] [address] Health Maintenance Due Date Last Done Comments Depression screening for age 12+ 06/18/2021 06/18/2020, 06/18/2020, 06/18/2020, Additional history exists Medicare Wellness for age 65+ 06/19/2021, 06/18/2019, 06/28/2018, Additional history exists Influenza for age 65+ 03/04/2024 03/20/2020 , 04/03/2019, 03/02/2018, Additional history exists BMI (ht and wt on same day) for age 18+ 03/18/2024 03/18/2023, 04/23/2022, 03/30/2021, Additional history exists Tetanus booster 01/28/2030 01/29/2020, 0508/2010, 02/02/2004, Additional history exists Tdap Completed 11/02/2010 Pneumococcal series for age 65+ Completed 07/19/2014, 10/15/2005, 04/11/1997 Zoster (shingles) series for age 50+ Completed 09/27/2018, 07/06/2018 DEXA/DXA scan for age 65+ Completed 2018, 01/13/2016, 12/18/2010 COVID-19 vaccine series Completed 06/13/20, 04/30/2022, 04/14/2021, Additional history exists Medical Devices Implanted Type Area Proof Plate Maker Device Identifier Shelf Expiration Date Model / Serial / Lot Lead Kit 4.32mm Spacing 28cm Length Interstim - [id number] Implanted:Qty: 1 on 04/01/2020 by Charlotte Smith MD at [facility] N/A: Sacrum Medtronic Pain Therapy 09/30/2021 [id number] / / [id number] Stimulator 7.7mm 14cc Interstim Ii - [id number] Implanted:Qty: 1 on 04/01/2020 by Charlotte Smith MD at [facility] N/A: Sacrum Medtronic Pain Therapy 03/31/2021 [id number] / [id number] / Description:PIN [id number] Procedures Procedure Name Priority Date/Time Associated Diagnosis Comments T4,FREE Routine 09/29/2023 9:04 AM CDT Myxedema heart disease TSH Routine 09/29/2023 9:04 AM CDT Myxedema heart disease XR DXA BONE DENSITY 2 SITES AXIAL Routine 07/02/2019 11:48 AM MANAGER MARKET DEVELOPMENT Osteopenia of multiple sites from Last 3 Months or Most Recently Relevant to Health Maintenance Results * TSH (09/29/2023 9:04 AM CDT) TSH 1.48 0.27 - 4.20 uIU/mL 09/29/2023 5:48 PM CDT [facility] Blood BLOOD SPECIMEN / Unknown Venipuncture / Unknown 09/29/2023 9:04 AM CDT 09/29/2023 9:04 AM CDT Narrative [facility] - 09/29/2023 5:48 PM CDT In Adults, TSH values between 5.00 and 10.00 uIU/ml do not necessarily indicate the presence of Hypothyroidism. Correlation with clinical findings such as presence of goiter and/or Thyroperoxidase (TPO) Antibody may be helpful. For more information please refer to SUZETTE 2004; 291: 228-238. Rakel Connor DO CHEMISTRY Performing Organization Address City/[facility]/ZIP Co de Phone Number [facility] [address] * (ABNORMAL) T4,FREE (09/29/2023 9:04 AM CDT) T4,FREE 1.78(H) 0.93 - 1.70 ng/dL 09/29/2023 5:48 PM CDT [facility] Blood BLOOD SPECIMEN / Unknown Venipuncture / Unknown 09/29/2023 9:04 AM CDT 09/29/2023 9:04 AM CDT Rakel Connor DO CHEMISTRY [facility] [address] [place] [address], * (ABNORMAL) XR DXA BONE DENSITY 2 SITES AXIAL (07/02/2019 11:48 AM MANAGER MARKET DEVELOPMENT) Anatomical Region Laterality Modality Spine, HIPS, HIPL, HIPR Other Narrative 07/06/2019 11:01 AM MANAGER MARKET DEVELOPMENT Please see scanned document for results of this study. Rakel Connor DO DEXA from Last 3 Months or Most Recently Relevant to Health Maintenance Advance Directives Documents on File Type Date Recorded Patient Machine Steak Tenderizer Expl anation Healthcare Directive 07/19/2016 2:58 PM RAGHAV HEATON * Full Code (Latest Code Status on File) Date Activated Date Inactivated Comments 05/05/2020 8:15 AM 05/05/2020 11:47 AM Question Answer Comments Code Status Discussion: Per Existing Order * Full Code Date Activated Date Inactivated Comments 04/01/2020 9:52 AM 04/01/2020 3:53 PM Question Answer Comments Code Status Discussion: Not Discussed * Full Code Date Activated Date Inactivated Comments 09/01/2016 4:04 PM 09/02/2016 4:21 PM * Full Code Date Activated Date Inactivated Comments 09/01/2016 8:45 AM 09/01/2016 4:04 PM Care Teams Solution Make Up Operator Relationship Specialty Start Date End Date [place] Maritza Crowe DO [address] [place] [address] PCP - General Family Practice 12/30/22 Kd Restrepo MD Endocrinology 11/24/11 Cody Veliz MD Rheumatology 11/24/11
== END 2023-10-28 12:50 | disposition home or self-care (01) ==
LOC: WOUND 12:49
PROVIDERS: PCP Physician Assistant Medical; Visit Provider Nurse Practitioner Family
DX: I87.2 Venous insufficiency (chronic) (peripheral) (principal); I73.9 Peripheral vascular disease, unspecified; L97.322 Non-pressure chronic ulcer of left ankle with fat layer exposed; R73.03 Prediabetes; Z79.82 Long term (current) use of aspirin
CPT/HCPCS: 97597; G0463

== ENCOUNTER 2023-11-02 12:42 | Outpatient (CLI) | payer OTHER, SELFPAY ==
--- OUTSIDE RECORDS SUMMARY | 2023-11-02 12:45 | XMS_ITS | Clinical Summary ---
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 09/27 Prediabetes [...] Date Anticoagulation monitoring, INR range 2-3 [Z79.01]; [place] Target 2.5-3.0 12/06/2016 Pessary maintenance 02/25/2016 09/28/19 20 Anticoagulation monitoring, goal range 2.0-2.6 09/19/2013 01/09/2018 Abnormal stress test 11/17/2010 011 Routine general medical exam ination at a health care facility 07/12/2009 09/28/2019 Overview: Normal CT angiogram 11/2010 Hip pain 05/06/2008 07/09/2009 Onychomycosis 05/06/2008 08/27/2008 HX OF VENOUS THROMBOSIS AND EMBOLISM 11/09/2006 12/06/2012 Bilateral pulmonary embolism 10/11/2006 11/18/2017 AFTERCARE, LONG-TERM USE, [place] DICATIONS NEC-PLAQUENIL 10/22/2003 Encounters Date Type Department Care Team Description 09/29/2023 9:00 AM CDT Orders Only [facility] [address] [place] [address] Lab, Farm Outside Order (Kd Restrepo MD PA 07/07/2023) 09/29/2023 Travel 08/29/2023 10:00 AM TEACHER VOCATIONAL TRAINING Office Visit [facility] [address] [place] [address] Tomas Page, OD Follow Up (6 Month AMD Ck ) 08/29/2023 Travel 08/05/2023 2:30 PM TEACHER VOCATIONAL TRAINING Office Visit [facility] [address] [place] [address] Olvin Haji MD Consult (NOV & DEC diarrhea every 3 days, recent positive cologaurd) 08/05/2023 Telephone [facility] [address] [place] [address] [address] Olvin Haji MD Appointment 08/05/2023 Travel from Last 3 Months Immunizations Name Administration Dates Next Due AMB INFLUENZA IIV3 (AGE 65+ YRS) PF (Flu Clinic Only) 03/23/2017 AMB Influenza, IIV3 (Age >=3 years) Preserve Free (Flu Clinic Only) 04/08/2009 AMB Influenza, IIV3 (Age >=3 years)(Flu Clinic Only) 04/06/2013,04/16/2011,04/24/2008 COVID-19 vaccine ([employer] 30mcg/0.3mL) PF, MDV 09/02/2020,08/12/2020 Influenza A (H1N1), [...] 2 2 Date Outcome GA Total Labor Labor/2nd/3rd Weight Sex Delivery Anes PTL Toña A1 A5 Name Cl in 03/15 Term M Vag Jinny ng 03/23 Term M Vag Jinny ng Last Filed Vital Signs Vital Sign Reading Time Taken Comments Blood Pressure 159/65 08/05/2023 2:27 PM TEACHER VOCATIONAL TRAINING Pulse 62 08/05/2023 2:27 PM TEACHER VOCATIONAL TRAINING Temperature 36.2 ??C (97.1 ??F) 04/23/2022 8:11 AM CD T Respiratory Rate 18 03/18/2023 2:24 PM CDT Oxygen Saturation 99% 08/05/2023 2:27 PM TEACHER VOCATIONAL TRAINING Inhaled Oxygen Concentration - - Weight 64.4 kg (142 lb) 08/05/2023 2:27 PM TEACHER VOCATIONAL TRAINING Height 149.9 cm (4' 11) 03/18/2023 2:24 PM CDT Body Mass Index 28.68 03/18/2023 2:24 PM CDT Plan of Treatment Upcoming Encounters Date Type Department Care Team (Late st Contact Info) Description 11/21/2023 7:45 AM CDT Office Visit [facility] [address] [place] [address] Olvin Haji MD [address] [place] [address] 11/23/2023 7:00 AM CDT Appointment [facility] [address] [facility] [address] [place] [address] 11/23/2023 8:30 AM CDT Appointment [facility] [address] [facility] [address] [place] [address] 11/23/2023 9:30 AM CDT Office Visit [facility] [address] [place] [phone] Charlotte Anderson MD [address] [place] [address] 02/28/2024 10:00 AM CDT Office Visit [facility] [address] [place], [place] [id number] [place] [address] [place], [place] [id number] Health Maintenance Due Date Last Done Comments Depression screening for age 12+ 06/18/2021 06/18/2020, 06/18/2020, 06/18/2020, Additional history exists Medicare Wellness for age 65+ 06/19/2021, 06/18/2019, 06/28/2018, Additional history exists Influenza for age 65+ 03/04/2024 03/20/2020 , 04/03/2019, 03/02/2018, Additional history exists BMI (ht and wt on same day) for age 18+ 03/18/2024 03/18/2023, 04/23/2022, 03/30/2021, Additional history exists Tetanus booster 01/28/2030 01/29/2020, 05/0 08/2010, 02/02/2004, Additional history exists Tdap Completed 11/02/2010 Pneumococcal series for age 65+ Completed 07/19/2014, 10/15/2005, 04/11/1997 Zoster (shingles) series for age 50+ Completed 09/27/2018, 07/06/2018 DEXA/DXA scan for age 65+ Completed 2018, 01/13/2016, 12/18/2010 COVID-19 vaccine series Completed 06/13/20 23, 04/30/2022, 04/14/2021, Additional history exists Medical Devices Implanted Type Area Film Reader Device Identifier Shelf Expiration Date Model / Serial / Lot Lead Kit 4.32mm Spacing 28cm Length Interstim - [id number] Implanted:Qty: 1 on 04/01/2020 by Charlotte Smith MD at [facility] N/A: Sacrum Med[employer] Pain Therapy 09/30/2021 [id number] / / [id number] Stimulator 7.7mm 14cc Interstim Ii - [id number] Implanted:Qty: 1 on 04/01/2020 by Charlotte Smith MD at [facility] N/A: Sacrum Med[employer] Pain Therapy 03/31/2021 [id number]# / [id number] / Description:PIN [id number] Procedures Procedure Name Priority Date/Time Associated Diagnosis Comments T4,FREE Routine 09/29/2023 9:04 AM CDT Myxedema heart disease TSH Routine 09/29/2023 9:04 AM CDT Myxedema heart disease XR DXA BONE DENSITY 2 SITES AXIAL Routine 07/02/2019 11:48 AM TEACHER VOCATIONAL TRAINING Osteopenia of multiple sites from Last 3 Months or Most Recently Relevant to Health Maintenance Results * TSH (09/29/2023 9:04 AM CDT) TSH 1.48 0.27 - 4.20 uIU/mL 09/29/2023 5:48 PM CDT [facility] Blood BLOOD SPECIMEN / Unknown Venipuncture / Unknown 09/29/2023 9:04 AM CDT 09/29/2023 9:04 AM CDT Narrative [facility] - 09/29/2023 5:48 PM CDT In Adults, TSH values between 5.00 and 10.00 uIU/ml do not necessarily indicate the presence of Hypothyroidism. Correlation with clinical findings such as presence of goiter and/or Thyroperoxidase (TPO) Antibody may be helpful. For more information please refer to SUZETTE 2004; 291: 228-238. Rakel Connor DO CHEMISTRY [facility] [address] [address], * (ABNORMAL) T4,FREE (09/29/2023 9:04 AM CDT) T4,FREE 1.78(H) 0.93 - 1.70 ng/dL 09/29/2023 5:48 PM CDT [facility] Blood BLOOD SPECIMEN / Unknown Venipuncture / Unknown 09/29/2023 9:04 AM CDT 09/29/2023 9:04 AM CDT Rakel Connor DO CHEMISTRY [facility] [address] [address], * (ABNORMAL) XR DXA BONE DENSITY 2 SITES AXIAL (07/02/2019 11:48 AM TEACHER VOCATIONAL TRAINING) Anatomical Region Laterality Modality Spine, HIPS, HIPL, HIPR Other Narrative 07/06/2019 11:01 AM TEACHER VOCATIONAL TRAINING Please see scanned document for results of this study. Rakel Connor DO DEXA from Last 3 Months or Most Recently Relevant to Health Maintenance Advance Directives Documents on File Type Date Recorded Patient Radiotelegraphist Expl anation Healthcare Directive 07/19/2016 2:58 PM RAGHAV HEATON & RADHA HEATON * Full Code (Latest Code Status [...] 8:45 AM 09/01/2016 4:04 PM Care Teams Staff Physical Therapy Assistant Relationship Specialty Start Date End Date Maritza Rendon DO [address] [place] [address] PCP - General Family Practice 12/30/22 Kd Restrepo MD Endocrinology 11/24/11 Cody Veliz MD Rheumatology 11/24/11
--- OUTSIDE RECORDS SUMMARY | 2023-11-02 12:46 | XMS_ITS | Data Portability ---
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 Plan of Treatment Reminders Order Date Submit Date Provider Last Modified By Organization Details Last Modified Time Details Appointments ESTABLISH ED 20 2023 09:00A M ELMA Blanco Not available Not available Not available ESTABLISH ED 45 2023 09:30A M DEMETRI Denis Not available Not available Not available Lab urinalysi s, dipstick 2021 022 [facility], [address], [place], [address], 09/14/2021 10:41:46 urinalysi s, dipstick 2021 022 [facility], [address], [place], [address], 08/03/2021 11:48:36 Referral None recorded. Procedures None recorded. Surgeries None recorded. Imaging None recorded. Medication Orders Myrbetriq 50 mg tablet,ex tended release 2021 022 [email or web address] ([facility]), [address] [place], [address], 11/12/2021 11:33:16 Gemtesa 75 mg tablet 2021 022 [email or web address] Not available 11/12/2021 11:33:22 Gemtesa 75 mg tablet [address] [id number], [facility] [address], [address], 11/12/2021 11:33:54 Theracran 650 mg capsule 2019 020 [facility], [address] [place] [address], [address], 05/13/2020 10:33:26 Patient TargetsNo targets recorded. Patient Instructions Encounter Date Encounter Id Patient Instructions Last Modified By Organization Details Last Modified Time 04/28/2023 [id number] Over Active Blad betty (OAB): -Managed with [...] needed [email or web address] Not available 04/28/2023 11:58:26 12/06/2022 [id number] Test each progra m for at least 2 weeks, adjusting amplitude as needed. May remain on a program as long as it is effective. Return as needed for reprogramming. [email or web address] Not available 12/06/2022 10:55:41 04/09/2022 [id number] Test each progra m for at least 2 weeks, adjusting amplitude as needed. May remain on a program as long as it is effective. Return as needed for reprogramming. [email or web address] Not available 04/09/2022 12:34:22 Patient states t hat Gemtesa samples were effective, but the rx was too expensive, so she stopped taking. She would like to try the Gemtesa again, but wonders of it is ok t take every other day, to spread the prescription out, and decrease the expense. I will ask MICHELET Blanco. [email or web address] Not available 04/09/2022 12:37:43 11/12/2021 [id number] Over Active Blad betty (OAB): -Managed with [...] minutes [email or web address] Not available 11/12/2021 11:46:55 09/14/2021 [id number] Over Active Blad betty (OAB): -Managed with [...] issues rbourget Not available 09/14/2021 10:49:32 09/14/2021 [id number] Test each progra m for at least 2 weeks, adjusting amplitude as needed. May remain on a program as long as it is effective. Return as needed for reprogramming. [email or web address] Not available 09/14/2021 10:07:26 Patient states t hat Gemtessa samples were very effective, but it is not covered by her insurance. She was also given a rx for Myrbetriq. [email or web address] Not available 09/14/2021 10:08:49 08/03/2021 [id number] s/p interstim surescan -ok for MRIs -doing really well and pleased but occ with UUI 90% better, she is still bothered that she would do more and will give gemtesa 75mg--to see in 6-8 week with PA and with demetir. -to call HEAD SAWYER re clitoral fusion/LS. -theracran (cranberry supplement) -to let me know if more utis Not available 08/03/2021 11:56:59 11/26/2020 [id number] Test each progra m for at least 2 weeks, adjusting amplitude as needed. May remain on a program as long as it is effective. Return as needed for reprogramming. [email or web address] Not available 11/27/2020 12:32:23 Reviewed the use of the smart peoplesoft programmer, and provided handout. Instructed the patient to lay down, with her legs above the level of her heart for at least 1 hour in the late afternoon. This may increase urinary frequency for a couple of hours in the evening, but should help to decrease the nocturia. [email or web address] Not available 11/27/2020 12:46:50 11/11/2020 [id number] sp interstim surescan -ok for MRIs -healing well -to see me in 12 months, will have her see demetri now for programmign options -doing really well and pleased but occ with UUI 90% better -to call HEAD SAWYER re clitoral fusion/LS. -theracran (cranberry supplement) -to let me know if more utis [email or web address] Not available 11/11/2020 12:16:02 05/13/2020 [id number] sp interstim 6 w [place] ago -ok for MRIs -healing well -to see me in 6 months, to call if any issues or needs programming -to call HEAD SAWYER re clitoral fusion/LS. -to start theracran (cranberry supplement) -to let me know if more utis Not available 05/13/2020 10:31:23 04/15/2020 [id number] sp Interstim -- healing well educated more today to see in 1mo, reminded to call if any questions with the peoplesoft programmer. Not available 04/15/2020 10:12:25 Reason for Referral None Reported. Results Created Date Observation Date Name Description Value Unit Range Abnormal Flag LastModifiedBy Organization Detail LastModifiedTime 08/03/19 22 08/03/2021 UA DIP CS ADVAN TUS color -advantus yellow yellow Not Available [facility] [address], [place], [address], 08/03/2021 11:48:36 08/03/19 22 08/03/2021 UA DIP CS ADVAN TUS appearance -advantus clear clear Not Available [facility] [address] [facility] [address], [place], [address], 08/03/2021 11:48:36 08/03/19 22 08/03/2021 UA DIP CS ADVAN TUS glucose -advantus negati ve mg/dL negati ve Not Available [facility] [address] [facility] [address], [place], [address], 08/03/2021 11:48:36 08/03/19 22 08/03/2021 UA DIP CS ADVAN TUS bilirubin -advantus negati ve negati ve Not Available [facility] [address] [facility] [address], [place], [address], 08/03/2021 11:48:36 08/03/19 22 08/03/2021 UA DIP CS ADVAN TUS ketones -advantus negati ve mg/dL negati ve Not Available [facility] [address] [facility] [address], [place], [address], 08/03/2021 11:48:36 08/03/19 22 08/03/2021 UA DIP CS ADVAN TUS sp. gravity -advantus 1.010 1.010- 1.025 Not Available [facility] [address] [place] [address] [address], [place], [address], 08/03/2021 11:48:36 08/03/19 22 08/03/2021 UA DIP CS ADVAN TUS pH -advantus 5.5 5.0-8. 0 Not Available [facility] [address] [facility] [address], [place], [address], 08/03/2021 11:48:36 08/03/19 22 08/03/2021 UA DIP CS ADVAN TUS protein -advantus negati ve mg/dL negati ve Not Available [facility] [address] [place] [address] [address], [place], [address], 08/03/2021 11:48:36 08/03/19 22 08/03/2021 UA DIP CS ADVAN TUS urobilinogen -advantus 0.2 normal Not Available [facility] [address] [place] [address] [address], [place], [address], 08/03/2021 11:48:36 08/03/19 22 08/03/2021 UA DIP CS ADVAN TUS nitrites -advantus negati ve negati ve Not Available [facility] [address] [place] [address] [address], [place], [address], 08/03/2021 11:48:36 08/03/19 22 08/03/2021 UA DIP CS ADVAN TUS blood -advantus small negati ve abnormal Not Available [facility] [address] [place] [address] [address], [place], [address], 08/03/2021 11:48:36 08/03/19 22 08/03/2021 UA DIP CS ADVAN TUS leukocytes -advantus trace negati ve abnormal Not Available [facility] [address] [place] [address] [address], [place], [address], 08/03/2021 11:48:36 08/03/19 22 08/03/2021 UA DIP CS ADVAN TUS performed by aislinn Ingram Not Available [facility] [address] [place] [address] [address], [place], [address], 08/03/2021 11:48:36 08/03/19 22 08/03/2021 UA DIP CS ADVAN TUS total urine volume (mL) 20 /mL Not Available [facility] [address] [place] [address] [address], [place], [address], 08/03/2021 11:48:36 08/03/19 22 08/03/2021 UA MICRO SCOPI C U-WBC 0 - 2 [hpf] 0 - [address] [facility] [address] [place] [address] [address], [place], [address], 08/03/2021 11:48:38 08/03/19 22 08/03/2021 UA MICRO SCOPI C U-RBC 0 - 2 [hpf] 0 - [address] [facility] [address] [facility] [address], [place], [address], 08/03/2021 11:48:38 08/03/19 22 08/03/2021 UA MICRO SCOPI C bacteria small [hpf] negati ve abnormal Not Available [facility] [address] [place] [address] [address], [place], [address], 08/03/2021 11:48:38 08/03/19 22 08/03/2021 UA MICRO SCOPI C squamous epi small /lpf negati ve,sma ll Not Available [facility] [address] [place] [address] [address], [place], [address], 08/03/2021 11:48:38 09/15/19 22 09/14/2021 UA DIP CS ADVAN TUS color -advantus yellow yellow Not Available [facility] [address] [place] [address] [address], [place], [address], 09/14/2021 10:41:46 09/15/19 22 09/14/2021 UA DIP CS ADVAN TUS appearance -advantus clear clear Not Available [facility] [address] [place] [address] [address], [place], [address], 09/14/2021 10:41:46 09/15/19 22 09/14/2021 UA DIP CS ADVAN TUS glucose -advantus negati ve mg/dL negati ve Not Available [facility] [address] [place] [address] [address], [place], [address], 09/14/2021 10:41:46 09/15/19 22 09/14/2021 UA DIP CS ADVAN TUS bilirubin -advantus negati ve negati ve Not Available [facility] [address] [place] [address] [address], [place], [address], 09/14/2021 10:41:46 09/15/19 22 09/14/2021 UA DIP CS ADVAN TUS ketones -advantus negati ve mg/dL negati ve Not Available [facility] [address] [facility] [address] [facility] [address], [place], [address], 09/14/2021 10:41:46 09/15/19 22 09/14/2021 UA DIP CS ADVAN TUS sp. gravity -advantus 1.010 1.010- 1.025 Not Available [facility] [address] [facility] [address] [address], [place], [address], 09/14/2021 10:41:46 09/15/19 22 09/14/2021 UA DIP CS ADVAN TUS pH -advantus 6.0 5.0-8. 0 Not Available [facility] [address] [place] [address] [address], [place], [address], 09/14/2021 10:41:46 09/15/19 22 09/14/2021 UA DIP CS ADVAN TUS protein -advantus negati ve mg/dL negati ve Not Available [facility] [address] [place] [address] [address], [place], [address], 09/14/2021 10:41:46 09/15/19 22 09/14/2021 UA DIP CS ADVAN TUS urobilinogen -advantus 0.2 normal Not Available [facility] [address] [facility] [address] [address], [place], [address], 09/14/2021 10:41:46 09/15/19 22 09/14/2021 UA DIP CS ADVAN TUS nitrites -advantus negati ve negati ve Not Available [facility] [address] [place] [address] [address], [place], [address], 09/14/2021 10:41:46 09/15/19 22 09/14/2021 UA DIP CS ADVAN TUS blood -advantus small negati ve abnormal Not Available [facility] [address] [facility] [address] [address], [place], [address], 09/14/2021 10:41:46 09/15/19 22 09/14/2021 UA DIP CS ADVAN TUS leukocytes -advantus negati ve negati ve Not Available [facility] [address] [facility] [address], [place], [address], 09/14/2021 10:41:46 09/15/19 22 09/14/2021 UA DIP CS ADVAN TUS performed by carlitos Ruiz Not Available [facility] [address], [place], [address], 09/14/2021 10:41:46 09/15/19 22 09/14/2021 UA DIP CS ADVAN TUS total urine volume (mL) 20cc /mL Not Available [facility] [address] [place] [address], [place], [address], 09/14/2021 10:41:46 09/15/19 22 09/14/2021 UA MICRO SCOPI C U-WBC 0 - 2 [hpf] 0 - 2 Not Available [facility] [address], [place], [address], 09/14/2021 10:41:47 09/15/19 22 09/14/2021 UA MICRO SCOPI C U-RBC 0 - 2 [hpf] 0 - 2 Not Available [facility] [address] [facility] [address], [place], [address], 09/14/2021 10:41:47 09/15/19 22 09/14/2021 UA MICRO SCOPI C bacteria small [hpf] negati ve abnormal Not Available [facility] [address] [facility] [address], [place], [address], 09/14/2021 10:41:47 09/15/19 22 09/14/2021 UA MICRO SCOPI C squamous epi small /lpf negati ve,sma ll Not Available [facility] [address] [facility] [address], [place], [address], 09/14/2021 10:41:47 04/02/20 20 04/01/2020 XR, abdom en No observ ation record ed. [facility] [address] [place], [address], 04/02/2020 11:32:57 Result Notes None recorded. Problems Name Status Onset Date Resolution Date Notes Provider Name and Address Organization Details Recorded Time Chronic cystitis Active 2018 N30.20 : Chronic cystitis Not Available [facility] 0 23:40:26 Overactive bladder Active 2018 N32.81 : Bladder muscle dysfunction - overactive Not Available [facility] 0 23:40:26 Benign neoplastic disease Active 2019 Daphne felix [facility] 0 09:58:09 Tear film insufficiency Active 2019 Daphne felix [facility] 0 09:58:21 [facility] Hyperlipidemia Active 2019 Daphne felix [facility] 0 09:58:36 Heart disease Active 2022 Radhika felix [facility] 3 11:27:33 Problem Notes None recorded. Procedures Surgical History Date Name Laterality Status Provider Name and Address Organization Details Recorded Time 04/28/20 23 Sacral neuromodulation w/o reprogramming completed ELMA Blanco [address], [place], [address], [facility] 04/28/2023 11:57:28 04/28/20 23 Bladder Scan completed Radhika felix [facility] 04/28/2023 11:36:21 12/07/19 23 Sacral neuromodulation w/o reprogramming completed Demetri felix [facility] 12/06/2022 11:08:45 10/07/20 22 Sacral Stimulator Reprogramming completed Demetri Bosch null, [facility] 04/09/2022 12:49:34 09/15/19 22 Bladder Scan completed Merry Ocampo null, [facility] 09/14/2021 10:25:15 09/15/19 22 Sacral neuromodulation w/o reprogramming completed Demetri felix, [facility] 09/14/2021 10:15:12 08/03/19 22 Past Data Reviewed completed Charlotte Smith MD [address] [place] [address],[address], [address], [facility] 08/03/2021 08:29:52 08/03/19 22 [facility] 11:50:03 11/27/19 21 Sacral Stimulator Reprogramming completed Demetri felix, [facility] 11/27/2020 12:44:01 09/17/19 20 Implant neuroelectrodes completed Not Available [facility] 12/13/2019 18:11:39 11/29/19 19 Insert bladder catheter completed Not Available [facility] 12/13/2019 18:11:39 11/14/19 15 Colonoscopy completed Lucinda felix, [facility] 11/11/2020 11:57:08 11/29/19 09 Total hip arthroplasty completed Not Available [facility] 12/13/2019 18:11:39 11/29/19 00 Unlisted procedure breast completed Not Available [facility] 12/13/2019 18:11:39 Appendectomy add-on completed Not Available [facility] 12/13/2019 18:11:39 Imaging Results Imaging Date Name Status LastModified by Organiz ation Details LastModified Time 04/01/2020 XR, abdomen completed [facility] [address] [place], [address], 04/02/2020 11:32:57 Procedure Notes None recorded. Medical Equipment None Reported. Allergies Allergen ID Allergen Name Allergen Category Reaction Reaction Severity Criticality Documentation Date Start Date Code Code System Note Provider Name and Address Organization Details Recorded Time 19861108 Nitroimid azole (substanc e) medicatio n Not available Not available Not available 12/12/2019 62593 5001 SNOMED Not Available [facility] 0 23:50:45 705193 sulindac medicatio n Not available Not available Not available 12/12/2019 49554 RxNorm Not Available [facility] 0 23:50:45 088940 Medicinal product containin g penicilli n and acting as antibacte rial agent (product) medicatio n itching Not available Not available 12/12/2019 77330 05 SNOMED Not Available [facility] 0 23:50:45 428611 atorvasta tin medicatio n Not available Not available Not available 12/12/2019 19965 RxNorm Not Available [facility] 0 23:50:45 038443 tetracycl ine medicatio n Not available Not available Not available 12/12/2019 90635 RxNorm Not Available [facility] 0 23:50:45 607210 alendrona te sodium medicatio n Not available Not available Not available 12/12/2019 06577 2 RxNorm Not Available [facility] 0 23:50:45 386733 amoxicill in medicatio n Not available Not available Not available 12/12/2019 723 RxNorm Not Available [facility] 0 23:50:45 321048 oxybutyni n chloride Not available dizziness Not available Not available 12/12/2019 84935 RxNorm fatig ue Not Available [facility] 0 23:50:45 988517 aspirin medicatio n Not available Not available Not available 12/12/2019 1191 RxNorm Not Available [facility] 0 23:50:46 344672 losartan Not available Not available Not available Not available 12/12/2019 83753 RxNorm Not Available [facility] 0 23:50:46 802251 estrogens , conjugate d (LONGTERM) medicatio n Not available Not available Not available 12/12/2019 4099 RxNorm Not Available [facility] 0 23:50:46 572745 ciproflox acin medicatio n Not available Not available Not available 12/12/2019 2551 RxNorm Not Available [facility] 0 23:50:46 349912 hydrochlo rothiazid e medicatio n Not available Not available Not available 12/12/2019 5487 RxNorm Not Available [facility] 0 23:50:46 700939 metoprolo l Not available Not available Not available Not available 12/12/2019 6918 RxNorm Not Available [facility] 0 23:50:46 211935 naproxen medicatio n Not available Not available Not available 12/12/2019 7258 RxNorm Not Available [facility] 0 23:50:46 224744 clindamyc in Not available Not available Not available Not available 12/12/2019 2582 RxNorm Not Available [facility] 0 23:50:46 756355 Substance with sulfonami de structure and antibacte rial mechanism of action (substanc e) medicatio n Not available Not available Not available 11/11/2020 92999 8003 SNOMED [facility] 11:56:30 379059 Myrbetriq medicatio n swelling Not available Not available 10/05/2021 67177 92 RxNorm [facility] 13:18:14 391773 S[employer]us [employer] y Immune medicatio n Not available Not available Not available 04/09/2022 Demetri Bosch [facility] 2 12:14:11 Medications Name Sig Start [...] Updated DateTime 04/09/2022 154.94 cm 27.8 kg/m2 19829.08 g Demetri felix [facility] 04/09/2022 12:13:52 Date Recorded Body height Body mass index (BMI) Body weight Provider Name and Address Organization Details Last Updated DateTime 12/06/2022 154.94 cm 25.5 kg/m2 43524.97 g Demetri felix [facility] 12/06/2022 10:41:56 Date Recorded Body height Body mass index (BMI) Body weight Provider Name and Address Organization Details Last Updated DateTime 04/15/2020 157.48 cm 26.3 kg/m2 58351.3 g Daphne felix [facility] 04/15/2020 10:05:09 Date Recorded Body height Body mass index (BMI) Body weight Provider Name and Address Organization Details Last Updated DateTime 04/28/2023 154.94 cm 25.5 kg/m2 00346.97 g Radhika felix [facility] 04/28/2023 11:25:35 Date Recorded Body height Body mass index (BMI) Body weight Provider Name and Address Organization Details Last Updated DateTime 05/13/2020 157.48 cm 26.3 kg/m2 64288.3 g Daphne Ramirezrdle [facility] 05/13/2020 10:15:26 Date Recorded Body height Body mass index (BMI) Body weight Provider Name and Address Organization Details Last Updated DateTime 11/11/2020 157.48 cm 26.3 kg/m2 20144.3 g Lucinda Nuñez [facility] 11/11/2020 11:56:20 Date Recorded Body height Body mass index (BMI) Body weight Provider Name and Address Organization Details Last Updated DateTime 11/26/2020 158.75 cm 27.2 kg/m2 67560.45 g Demetri Bosch [facility] 11/26/2020 10:47:36 Date Recorded Body height Body mass index (BMI) Body weight Provider Name and Address Organization Details Last Updated DateTime 08/03/2021 158.75 cm 27.2 kg/m2 63704.45 zeus Usha Corado [facility] 08/03/2021 11:35:42 Date Recorded Body height Body mass index (BMI) Body weight Provider Name and Address Organization Details Last Updated DateTime 09/14/2021 158.75 cm 26.5 kg/m2 16775.08 g Demetri Bosch [facility] 09/14/2021 09:54:39 Date Recorded Body height Body mass index (BMI) Body weight Provider Name and Address Organization Details Last Updated DateTime 09/14/2021 158.75 cm 26.5 kg/m2 93965.08 zeus Ocampo [facility] 09/14/2021 10:08:57 Date Recorded Body height Body mass index (BMI) Body weight Provider Name and Address Organization Details Last Updated DateTime 11/12/2021 154.94 cm 27.8 kg/m2 92215.08 zeus Ocampo [facility] 11/12/2021 11:32:20 Social History Question Answer Notes LastModified by Organizat ion Details LastModified Time Tobacco Smoking Status Never Smoker Not Available [facility] 12/13/2019 02:00:45 What Is Your Level Of Alcohol Consumption? None Information not available 09/14/2021 What Is Your Level Of Caffeine Consumption? Heavy Information not available 09/14/2021 Are You Currently Employed? No Information not available 09/14/2021 Race White Information n ot available 12/13/2019 Ethnicity Not /Lat vane Information not available 09/14/2021 Preferred Language Algerian Information not available 09/14/2021 Recreational Drug Use No Information not available 09/14/2021 Could You Be ? No Information not available 09/14/2021 Marital Status Informati on not available 12/13/2019 What Was The Date Of Your Most Recent Tobacco Screening? 12/06/2022 [email or web address] Information not available 12/06/2022 What Is Your [...] High Blood Pressure Y Kidney Stones N Cancer N Lung Disease N Depression N High Cholesterol N GERD/Acid Reflux Y Heart Disease Y Gynecological HistoryNo gynecological history recorded. Obstetrics History GPAL:G 0 P 0 0 0 0 Immunizations Vaccine Type Date Status Provider Name and Address Organization Details Recorded Time Pneumococcal conjugate PCV 13 07/04/[address] [facility] 04/28/2023 11:25:40 Past Encounters Encounter ID Performer Location Encounter Start Date Encounter Closed Date Diagnosis/Indication Diagnosis SNOMED-CT Code [id number] Charlotte Smith MD [place] [id number] [facility],[address] [address] 04/15/2020 10:02:52 04/25/2020 12:54:57 Overactive bladder [id number] Urge incon tinence of urine [id number] Charlotte Smith MD [address] [address] 05/13/2020 10:14:48 05/13/2020 14:22:18 Overactive bladder 650953037 Urge incon tinence of urine 74088942 History of urinary tract infection [id number] Charlotte Smith MD [address] [address] 11/11/2020 11:46:55 11/11/2020 13:40:18 Overactive bladder 661212226 Urge incon tinence of urine 45808744 [id number] [facility] [address] [place] [address] 11/26/2020 10:15:12 12/02/2020 15:37:48 Overactive bladder 047034094 Nocturia 604680789 [id number] MD [facility] [address] [place] [address] 08/03/2021 11:31:50 08/03/2021 12:09:22 Overactive bladder 201200506 Urge incon tinence of urine 87595332 Nocturia 556663155 [id number] ELMA Blanco [facility] [address] [place] [address] 09/14/2021 10:06:36 09/14/2021 14:16:12 Overactive bladder 723686515 Urge incon tinence of urine 05665321 Nocturia 258760851 [id number] Demetri Bosch [facility] [address] [place], [place] [address]it e [address] [place] [address] 09/14/2021 09:30:06 09/14/2021 14:31:59 Overactive bladder 430992737 [id number] ELMA Blanco [facility] 6025 [facility] [address] [place] [id number] 11/12/2021 11:29:59 11/12/2021 12:37:25 Overactive bladder 588639119 Urge incon tinence of urine 64310445 Nocturia [id number] Demetri Bosch [facility] [address] [place] [address],[facility] [address] [place] [id number] 0 04/09/2022 11:43:46 04/09/2022 13:38:20 Overactive bladder 318209936 [id number] Demetri Bosch [facility] [address] [place] [address],[facility] [address] [place] [phone] 12/06/2022 10:28:13 12/06/2022 11:24:29 Overactive bladder 519878906 [id number] ELMA Blanco [facility] [address] [place] [address] [place] [phone] 0 04/28/2023 11:22:38 04/28/2023 12:04:03 Overactive bladder 443771545 Urge incon tinence of urine 86968412 Nocturia 310198989 Health Concerns Section Related Observation LastModified by Organization Detai ls LastModified Time None Recorded Concern Status LastModified by Organization Details LastModified Time None Recorded Advance Directives Directive None Recorded Payers Encounter Date Sequence Insurance Name Policy Number Policy Betancourt Covered Member ID Betancourt Member ID Guarantor Name 04/28/2023 1 [place] [employer] Patsy Beltrán [id number] Patsy Beltrán 04/28/2023 2 [facility] [id number] Patsy Beltrán [id number] Patsy Beltrán 12/06/2022 1 [place] [employer] Patsy Beltrán [id number] Patsy Beltrán 12/06/2022 2 [place] [id number] Patsy Beltrán [id number] Patsy A Wood 04/09/2022 1 [place] [employer] Patsy A Wood [id number] Patsy A Wood 04/09/2022 2 [place] [id number] Patsy A Wood [id number] Patsy A Wood 11/12/2021 1 [place] [employer] Patsy A Wood [id number] Patsy A Wood 11/12/2021 2 [place] [id number] Patsy A Wood [id number] Patsy A Wood 09/14/2021 1 [place] [employer] Patsy A Wood [id number] Patsy A Wood 09/14/2021 2 [place] [id number] Patsy A Wood [id number] Patsy A Wood 09/14/2021 1 [place] [employer] Patsy A Wood [id number] P[employer] Wood 09/14/2021 2 [place] [id number] Patsy A Wood [id number] Patsy A Wood 08/03/2021 1 [place] [employer] Patsy A Wood [id number] [employer] 08/03/2021 2 [place] [id number] Patsy A Wood [id number] [employer]y [employer] 11/26/2020 1 [place] [employer] Patsy A Wood [id number] P[employer]y [employer] 11/26/2020 2 [place] [id number] P[employer]y A Wood [id number] P[employer]y [employer] Wood 11/11/2020 1 [place] [employer] Patsy A Wood [id number] P[employer] 11/11/2020 2 [place] [id number] Patsy A Wood [id number] P[employer]y A Wood 05/13/2020 1 [place] [employer] Patsy A Wood [id number] P[employer] 05/13/2020 2 [place] [id number] P[employer]y [employer] [id number] Patsy Beltrán 04/15/2020 1 [place] [employer] Patsy Beltrán [id number] Patsy Beltrán 04/15/2020 2 [facility] [id number] Patsy Beltrán [id number] Patsy Beltrán Notes Date Note Type Note Provider Name and Address Organization Details Recorded Time 04/15/2020 text/html HPI Notes: sp interstim lead and IPG 9-29 doing well on program 3 vagianl was concerned as it was timing out Charlotte Smith MD [address] [place] [address],[address], [place], [address], [facility] 04/15/2020 10:12:37 05/13/2020 text/html HPI Notes: SP Interstim lead and IPG SureScan 9-29 for OAB/UUI sx. had successful PNE prior, waited for implant as she had back fx. asks about renal cyst, proteinceauosu on mri asks about clitorial irritation, hx of LS using estrogren and clobetasol was on program 3more leaks 2-3 days ago, changed to program 4 vagianl. Charlotte Smith MD [address] [place] [address],[address], [place], [address], [facility] 05/13/2020 10:32:36 11/11/2020 text/html HPI Notes: [...] be almost every hour Charlotte Smith MD [address] [place] [address],[address], [place], [address], [facility] 11/11/2020 12:16:47 08/03/2021 text/html HPI Notes: [...] on Lasix as needed Charlotte Smith MD [address] [place] [address],[address], [place], [address], [facility] 08/03/2021 11:57:51 09/14/2021 text/html HPI Notes: [...] to be almost every hour. ELMA Blanco [address] [place] [address],[address], [place], [address], [facility] 09/14/2021 10:49:41 11/12/2021 text/html HPI Notes: [...] proceed with the phone visit. ELMA Blanco [address] [place] [address],[facility] [address], [place], [address], [facility] 11/12/2021 11:50:24 12/06/2022 text/html HPI Notes: [...] changed Rate chaanged Resolution changed Demetri felix [facility] 12/06/2022 11:08:58 04/28/2023 text/html HPI [...] be almost every hour. ELMA Blanco [address] [facility],[address], [place], [address], [facility] 04/28/2023 11:58:40 OBGyn Episode No OBEpisode recorded.
--- NOTE | 2023-11-02 13:00 | XR_ITS ---
Patient: RODERICK HEATON Facility:?[facility] Patient ID:?[id number] Site Patient ID:?[id number]. Site :?[id number] Study:?DEXA-Bone Density -11/02/2023 3:50:43 PM Ordering Physician:KRUPA Final Report: DXA BONE MINERAL DENSITY STUDY Reason for exam: Age-related osteoporosis without current pathology. Current height (in): 59. Weight (lb): 136. Menopause age: 50. Ethnicity: White. 1. Have you had a previous hip or vertebral fracture? No. 2. Have you had any fractures during your adult life which did not result from significant trauma (e.g., auto accident)? Yes. 3. Did either of your parents have a hip fracture? No. 4. Do you smoke? No. 5. Have you ever taken Glucocorticoids? No. 6. Do you have rheumatoid arthritis? No. 7. Do you have secondary osteoporosis? Yes. 8. Do you drink 3 or more alcoholic drinks per day? No. 9. Are you being treated for osteoporosis? Yes. 10. Have you ever taken any of the following medications: Actonel, Evista, Fosamax, Miacalcin, Reclast, Boniva, Forteo, HRT (i.e., estrogen/hormone therapy), Protelos, Prolia, Vitamin D, Calcium, other ? please specify. ANSWER: Yes, vitamin D, Prolia (i.e., denosumab), and calcium. 11. Do you have any of the following medical conditions: Anorexia or bulimia, asthma or emphysema, end stage renal disease, hyperparathyroidism, any seizure disorders, cancer, inflammatory bowel diseases, hysterectomy, other ? please specify. ANSWER: No. 12. What was your maximum height (inches)? 64. 13. Do you perform weight bearing exercise regularly? No. 14. Do you regularly consume dairy products? Yes. 15. Do you drink caffeinated beverages? Yes. 16. At what age did your period start? 13. 17. Are you premenopausal? No. 18. How many full-term pregnancies have you had? 2. 19. Have you ever missed your period for more than 6 months in a row (not including or menopause)? No. TECHNIQUE: Bone mineral density study was performed using the Horizon Wi. FINDINGS: The results of the study expressed as bone mineral density (BMD) are as follows: Lumbar spine L1 to L2: BMD: 1.337 g/cm2. T-score: 3.3. Z-score: 5.9 Neck Left: BMD: 0.668 g/cm2. T-score: -1.6. Z-score: 0.8 Total Left: BMD: 0.874 g/cm2. T-score: -0.6. Z-score: 1.7 Radius Left 33%: BMD: 0.590 g/cm2. T-score: -1.7. Z-score: 1.8 IMPRESSION: Osteopenia. Jaydon LIUK:darlene D& Transcribed: 4:57 p.m. [email or web address]/Dictated by: Brian Gonzalez MD @ 11/03/2023 8:42:00 AM Signed by:Donta Gonzalez MD @11/04/2023 7:11:35 AM (Electronic Signature)
== END 2023-11-02 12:43 | disposition home or self-care (01) ==
LOC: RAD 12:43
PROVIDERS: PCP Physician Assistant Medical; Visit Provider Family Medicine
DX: M81.0 Age-related osteoporosis without current pathological fracture (principal); M85.89 Other specified disorders of bone density and structure, multiple sites
CPT/HCPCS: 77080

== ENCOUNTER 2023-11-11 12:56 | Outpatient (CLI) | payer OTHER, SELFPAY ==
--- OUTSIDE RECORDS SUMMARY | 2023-11-11 12:58 | XMS_ITS | Clinical Summary ---
Author Name Unknown Organization [employer] [facility] Address [place], [place] [address] Care Team Providers Care Desilverizer Name Role Phone Kd Restrepo MD Unavailable [phone] Cody Veliz MD Unavailable [phone] Maritza Rendon DO Primary Care Provide r [...] SOB (shortness of breath) 01/25/2020 Fatigue 01/25/2020 longterm current use of systemic steroids 09/27 Prediabetes [...] Date Anticoagulation monitoring, INR range 2-3 [Z79.01]; [place] [employer] 2.5-3.0 12/06/2016 Pessary maintenance 02/25/2016 09/28/19 20 Anticoagulation monitoring, goal range 2.0-2.6 09/19/2013 01/09/2018 Abnormal stress test 11/17/2010 011 Routine general medical exam ination at a health care facility 07/12/2009 09/28/2019 Overview: Normal CT angiogram 11/2010 Hip pain 05/06/2008 07/09/2009 Onychomycosis 05/06/2008 08/27/2008 HX OF VENOUS THROMBOSIS AND EMBOLISM 11/09/2006 12/06/2012 Bilateral pulmonary embolism 10/11/2006 11/18/2017 AFTERCARE, LONG-TERM USE, PR DICATIONS NEC-PLAQUENIL 10/22/2003 Encounters Date Type Department Care Team Description 09/29/2023 9:00 AM CDT Orders Only [facility] [address] [place] [address] Lab, Farm Outside Order (Kd Restrepo MD PA 07/07/2023) 09/29/2023 Travel 08/29/2023 10:00 AM EGG CRATER Office Visit [facility] [address] [place] [address] Tomas Page, OD Follow Up (6 Month AMD Ck ) 08/29/2023 Travel from Last 3 Months Immunizations Name Administration Dates Next Due AMB INFLUENZA IIV3 (AGE 65+ YRS) PF (Flu Clinic Only) 03/23/2017 AMB Influenza, IIV3 (Age >=3 years) Preserve Free (Flu Clinic Only) 04/08/2009 AMB Influenza, IIV3 (Age >=3 years)(Flu Clinic Only) 04/06/2013,04/16/2011,04/24/2008 COVID-19 vaccine (Multi[employer]ona[employer]com 30mcg/0.3mL) PF, MDV 09/02/2020,08/12/2020 Influenza A (H1N1), [...] Comments Blood Pressure 159/65 08/05/2023 2:27 PM EGG CRATER Pulse 62 08/05/2023 2:27 PM EGG CRATER Temperature 36.2 ??C (97.1 ??F) 04/23/2022 8:11 AM CD T Respiratory Rate 18 03/18/2023 2:24 PM CDT Oxygen Saturation 99% 08/05/2023 2:27 PM EGG CRATER Inhaled Oxygen Concentration - - Weight 64.4 kg (142 lb) 08/05/2023 2:27 PM EGG CRATER Height 149.9 cm (4' 11) 03/18/2023 2:24 PM CDT Body Mass Index 28.68 03/18/2023 2:24 PM CDT Plan of Treatment Upcoming Encounters Date Type Department Care Team (Late st Contact Info) Description 11/23/2023 7:00 AM CDT Appointment [facility] [address] [place], [place] [id number] 11/23/2023 8:30 AM CDT Appointment [facility] [address] [place] [address] 11/23/2023 9:30 AM CDT Office Visit [facility] [address] [place] [address] Charlotte Anderson MD [address] [place] [address] 02/28/2024 10:00 AM CDT Office Visit [facility] [address] [place] [address] [place] [address] [place] [address] Health Maintenance Due Date Last Done Comments Depression screening for age 12+ 06/18/2021 06/18/2020, 06/18/2020, 06/18/2020, Additional history exists Medicare Wellness for age 65+ 06/19/2021, 06/18/2019, 06/28/2018, Additional history exists Influenza for age 65+ 03/04/2024 03/20/2020 , 04/03/2019, 03/02/2018, Additional history exists BMI (ht and wt on same day) for age 18+ 03/18/2024 03/18/2023, 04/23/2022, 03/30/2021, Additional history exists Tetanus booster 01/28/2030 01/29/2020, 08/2010, 02/02/2004, Additional history exists Tdap Completed 11/02/2010 Pneumococcal series for age 65+ Completed 07/19/2014, 10/15/2005, 04/11/1997 Zoster (shingles) series for age 50+ Completed 09/27/2018, 07/06/2018 DEXA/DXA scan for age 65+ Completed 2018, 01/13/2016, 12/18/2010 COVID-19 vaccine series Completed 06/13/20, 04/30/2022, 04/14/2021, Additional history exists Medical Devices Implanted Type Area Gauntlet Pairer Device Identifier Shelf Expiration Date Model / Serial / Lot Lead Kit 4.32mm Spacing 28cm Length Interstim - [id number] Implanted:Qty: 1 on 04/01/2020 by Charlotte Smith MD at [facility] N/A: Sacrum [employer] Pain Therapy 09/30/2021 [id number] / / [id number] Stimulator 7.7mm 14cc Interstim Ii - [id number] Implanted:Qty: 1 on 04/01/2020 by Charlotte Smith MD at [facility] N/A: Sacrum [employer] Pain Therapy 03/31/2021 [id number] / [id number] / Description:PIN [id number] Procedures Procedure Name Priority Date/Time Associated Diagnosis Comments T4,FREE Routine 09/29/2023 9:04 AM CDT Myxedema heart disease TSH Routine 09/29/2023 9:04 AM CDT Myxedema heart disease XR DXA BONE DENSITY 2 SITES AXIAL Routine 07/02/2019 11:48 AM EGG CRATER Osteopenia of multiple sites from Last 3 Months or Most Recently Relevant to Health Maintenance Results * TSH (09/29/2023 9:04 AM CDT) TSH 1.48 0.27 - 4.20 uIU/mL 09/29/2023 5:48 PM CDT [facility] Blood BLOOD SPECIMEN / Unknown Venipuncture / Unknown 09/29/2023 9:04 AM CDT 09/29/2023 9:04 AM CDT Narrative [facility] - 09/29/2023 5:48 PM CDT In Adults, TSH values between 5.00 and 10.00 uIU/ml do not necessarily indicate the presence of Hypothyroidism. Correlation with clinical findings such as presence of goiter and/or Thyroperoxidase (TPO) Antibody may be helpful. For more information please refer to SUZETTE 2004; 291: 228-238. Rakel Connor DO CHEMISTRY Performing Organization Address City/[facility]/ZIP Co de Phone Number [facility] [address] [place] [address], * (ABNORMAL) T4,FREE (09/29/2023 9:04 AM CDT) T4,FREE 1.78(H) 0.93 - 1.70 ng/dL 09/29/2023 5:48 PM CDT [facility] Blood BLOOD SPECIMEN / Unknown Venipuncture / Unknown 09/29/2023 9:04 AM CDT 09/29/2023 9:04 AM CDT Rakel Connor DO CHEMISTRY [facility] [address] [place] [address], * (ABNORMAL) XR DXA BONE DENSITY 2 SITES AXIAL (07/02/2019 11:48 AM EGG CRATER) Anatomical Region Laterality Modality Spine, HIPS, HIPL, HIPR Other Narrative 07/06/2019 11:01 AM EGG CRATER Please see scanned document for results of this study. Rakel Connor DO DEXA from Last 3 Months or Most Recently Relevant to Health Maintenance Advance Directives Documents on File Type Date Recorded Patient Wage And Salary Administrator Expl anation Healthcare Directive 07/19/2016 2:58 PM RO CESARIO HEATON & RADHA HEATON * Full Code [...] 8:45 AM 09/01/2016 4:04 PM Care Teams Desilverizer Relationship Specialty Start Date End Date Maritza Rendon DO [address] [place] [address] PCP - General Family Practice 12/30/22 Kd Restrepo MD Endocrinology 11/24/11 Cody Veliz MD Rheumatology 11/24/11
--- OUTSIDE RECORDS SUMMARY | 2023-11-11 12:58 | XMS_ITS | Continuity of Care Document ---
Author Name Unknown Organization [facility] Address [address] [facility] [address] [place] [address] Phone Care Team Providers Care Thermodynamics Teacher Name Role Phone Adam AMADOR, Helder Unavailable Unavailabl e Allergies, Adverse Reactions, Alerts Substance [...] mg-elderberry flower 115 mg capsule - Active Tylenol [facility] Pain 650 mg tablet,extended release take 2 tablet by oral route every 8 hours as needed swallowing whole with water. Do not break, crush, dissolve and/or chew. 1300 MG - Active estradiol 1 mg tablet take 1 tablet by oral route every day 1 MG - Active fluocinonide 0.05 % topical [...] route every day 1 Capsule - Active Probiotic 10 billion cell capsule [...] times every day 1 tablet - Active buspirone 5 mg tablet take 1 tablet by oral route 3 times every day 5 MG - Active diltiazem ER (XR/XT) 240 mg capsule,extended release 24 hr, controlled take 1 capsule by oral route every day 240 MG - Active levothyroxine 112 mcg tablet take 1 tablet by oral route every day 112 MCG - Active warfarin 2.5 mg tablet take 1 tablet by oral route every day 2.5 MG - Active Prolia 60 mg/mL subcutaneous syringe inject 2 milliliter by subcutaneous route every 6 months in the upper arm, upper thigh or abdomen 120 MG - Active Procedures Procedure Date X-Ray Exam Of Foot 3v Office/Outpatient Visit, Est Routine Venipuncture Specimen Handling Rbc Sed Rate, Automated Assay Of Serum Albumin Assay Of Creatinine Transferase (Ast) (Sgot) Alanine Amino (Alt) (Sgpt) Assay Of Blood/Uric Acid CReactive Protein Complete Cbc WAuto Diff Wbc [...] Antibodies Dna Antibody, Single Strand Dna Antibody, [place] Nuclear Antigen Antibodies Rheumatoid Factor, IGM Rheumatoid Factor, IGG, IGA Advance Directives Directive Yes / No Effective Date File Name No Information Encounters Encounter Description Practice Location Reason(s) For Visit Diagnoses Date Provider Providers Copied on Encounter [facility], [address], [place], [address], [place] tel:[phone] [facility], No Information Oct- 4 Adam Pendleton. [address], [address], [place], [address], [place]. tel:[phone] Referring Provider: Helder Jain, [address], [place], [address]. tel:[phone] Office/Outpa tient Visit, Est [facility], [address], [place], [address], [place] tel:[phone] [facility], Sjogren syndrome w/ inflammatory arthritisPain in left foot 0 4 Lebedoff Helder. [address], [address], [place], [address], [place]. tel:[phone] Referring Provider: Helder Jain, [address], [place], [address]. tel:[phone] Office/Outpa tient Visit, Est [facility], [address], [place], [address], [place] tel:[phone] [facility], Sjogren syndrome w/ inflammatory arthritisPrim mauri osteoarthriti s, right hand 3 Lebedoff Helder. [address], [address], [place], [address], [place]. tel:[phone] Referring Provider: Helder Jain, [address], [place], [address]. tel:[phone] Office/Outpa tient Visit, Est [facility], [address], [place], [address], [place] tel:[phone] [facility], Sicca syndrome, unspecifiedWe akness 0 3 Lebedoff Helder. [address], [address], [place], [address], [place]. tel:[phone] Referring Provider: Helder Lebedoff G, [address], [place], [address]. tel:[phone] Office/Outpa tient Visit, Est [facility], [address], [place], [address], [place] tel:[phone] [facility], Sicca syndrome, unspecifiedPa in in left shoulder Apr- 2 Vicentabedregulo Pendleton. [address], [address], [place], [address], [place]. tel:[phone] Referring Provider: Helder Jain, [address], [place], [address]. tel:[phone] Office/Outpa tient Visit, Est [facility], [address], [place], [address], [place] tel:[phone] [facility], Sicca syndrome, unspecifiedDy spnea Oct- 2 Vicentabedregulo Pendleton. [address], [address], [place], [address], [place]. tel:[phone] Referring Provider: Helder Jain, [address], [place], [address]. tel:[phone] Office/Outpa tient Visit, Est [facility], [address], [place], [address], [place] tel:[phone] [facility], Sicca syndrome, unspecifiedOt her terminal system operator (current) drug therapyPrimar y OA of right handDyspnea Apr- 1 Blasoff Helder. [address], [address], [place], [address], [place]. tel:[phone] Referring Provider: Helder Jain, [address], [place], [address]. tel:[phone] Office/Outpa tient Visit, New [facility], [address], [place], [address], [place] tel:[phone] [facility], Sicca syndrome, unspecifiedPa in in rt ankleOther senior living (current) drug therapy 1 Adam Pendleton. [address], [address], [place], [address], [place]. tel:[phone] Referring Provider: Helder Medina G, [address], [address]. tel:[phone] [facility], [address], [place], [address], [place] tel:[phone] [facility] No Information 1 Mo Sullivan. [facility] [address] [place] [address] [address], [place], [address], [place]. tel:[phone] Family History Family Member Type Diagnosis Age At Onset No Information Immunizations Vaccine Date Status Comments COVID-19 Moderna administered Source: Ot er Provider COVID-19 Pfizer administered Note: 1 ; Source: Other Provider Payers Payer name Insurance type Covered alliance party ID Authoriza tion(s) [employer] Medicare Adv [id number] MB [id number] Social History Type Description Quantity Date Captured Comments Alcohol Use Details Unknown Caffeine Use Details Unknown Tobacco Use Status No Information Smoking Status No Information Sex Female Chief Complaint And Reason For Visit No Information Reason For Referral Reason For Referral No Information Plan Of Treatment Date Type Action Status Appointment Patsy Beltrán BOOKED Future Order: Radiology Order Fo ot X-ray; Complete (3+ views) ([id number]), Sent on: Sent History Of Present Illness Encounter Date Complaint History Of Prese nt Illness No Information Functional Status Date Functional Assessmen t No Information Instructions Date Instruction Additional Infor matmayela Continue prednisone 10 mg every other dayContinue pilocarpine as neededRepeat SPEP and inflammatory markers today to screen for lymphoma Related to Sjogren syndrome w/ inflammatory arthritis Continue prednisone 10 mg every other dayContinue [...] Sicca syndrome, unspecified Assessments Type Assessment Date No Information Patient Care Teams Name Effective Dates (start - stop) Status Members No Information
--- OUTSIDE RECORDS SUMMARY | 2023-11-11 12:59 | XMS_ITS | Continuity of Care Document ---
Author Name Unknown Organization [facility] Address [address] [place] [address] Phone Care Team Providers Care Social Work Assistant Name Role Phone Usha Dickinson Unavailable Unavailable [...] on Encounter [facility], [address], [place], [place], [id number], [place] tel:[phone] No Information 1 [facility], [address], [place], [place], [id number] , [place]. tel:[phone] Office/Outpat ient Visit,Est, Mod [facility], [address], [place], [place], [address], [place] tel:[phone] [facility] Other forms of scoliosis, thoracolumbar regionL2 wedge compression fracture, initial encounter for closed fractureSpondy lolisthesis, lumbar region 0 Kwame Usha. [facility], [address], [place], [place], [address] , [place]. [phone] Referring Provider: Rakel Arvizu, [facility] [address] [place], [address]. tel:[phone] Office/Outpat ient Visit,Est, Mod [facility], [address], [facility] [place], [address], [place] tel:[phone] [facility] L2 wedge compression fracture, initial encounter for closed fractureOther forms of scoliosis, thoracolumbar regionSpondylo listhesis, lumbar region 0 Kwame Kerr. [facility] [place], [address], [place], [place], [address] , . tel:[phone] Referring Provider: Rakel Arvizu [employer] [address], [place], [address]. tel:[phone] Office/Outpat ient Visit,[facility], [facility], [address], [place], [place], [id number], [place] tel:[phone] [facility] L2 wedge compression fracture, initial encounter for closed fractureOther forms of scoliosis, thoracolumbar regionSpondylo listhesis, lumbar region 0 Kwame Kerr. [facility], [address], [place], [place], [address] , [place]. tel:[phone] Referring Provider: Rakel Arvizu [employer] [address] [place], [address]. tel:[phone] Family History Family Member Type Diagnosis Age At Onset No Information Payers Payer name Insurance type Covered republican ID Authoralethaa tishannon(s) Medicare MB [id number] [facility] [id number] [facility] [id number] Social History Type Description Quantity Date Captured [...]
== END 2023-11-11 12:57 | disposition home or self-care (01) ==
LOC: WOUND 12:56
PROVIDERS: PCP Physician Assistant Medical; Visit Provider Nurse Practitioner Family
DX: I87.2 Venous insufficiency (chronic) (peripheral) (principal); I73.9 Peripheral vascular disease, unspecified; L97.322 Non-pressure chronic ulcer of left ankle with fat layer exposed; Z79.52 Long term (current) use of systemic steroids
CPT/HCPCS: 97597

== ENCOUNTER 2023-11-18 08:50 | Outpatient (CLI) | payer OTHER, SELFPAY ==
--- OUTSIDE RECORDS SUMMARY | 2023-11-18 08:52 | XMS_ITS | Continuity of Care Document ---
Author Name Unknown Organization [facility] Address [address] [place] [address] Phone Care Team Providers Care Snuff Maker Name Role Phone Usha Dickinson Unavailable Unavailable [...] on Encounter [facility], [address], [place], [place], [id number], [place] tel:[phone] No Information 1 [facility], [address], [place], [place], [address] , [place]. tel:[phone] Office/Outpat ient Visit,Est, Mod [facility], [address], [place], [place], [address], [place] tel:[phone] [facility] Other forms of scoliosis, thoracolumbar regionL2 wedge compression fracture, initial encounter for closed fractureSpondy lolisthesis, lumbar region 0 Kwame Usha. [facility], [address], [place], [place], [address] , [place]. [phone] Referring Provider: Rakel Arvizu, [employer] [facility] [address] [place], [address]. tel:[phone] Office/Outpat ient Visit,Est, Mod [facility], [address], [facility] [place], [address], [place] tel:[phone] [facility] L2 wedge compression fracture, initial encounter for closed fractureOther forms of scoliosis, thoracolumbar regionSpondylo listhesis, lumbar region 0 Kwame Kerr. [facility] [place], [address], [place], [place], [address] , . tel:[phone] Referring Provider: Rakel Arvizu [employer] [address], [place], [address]. tel:[phone] Office/Outpat ient Visit,[facility], [address], [place], [place], [id number], [place] tel:[phone] [facility] L2 wedge compression fracture, initial encounter for closed fractureOther forms of scoliosis, thoracolumbar regionSpondylo listhesis, lumbar region 0 Kwame Kerr. [facility], [address], [place], [place], [address] , [place]. tel:[phone] Referring Provider: Rakel Arvizu [employer] [address] [place], [address]. tel:[phone] Family History Family Member Type Diagnosis Age At Onset No Information Payers Payer name Insurance type Covered libertarian ID Authoralethaa tishannon(s) Medicare MB [id number] [facility] [id number] [facility] [id number] Social History Type Description Quantity Date Captured [...]
--- OUTSIDE RECORDS SUMMARY | 2023-11-18 08:52 | XMS_ITS | Continuity of Care Document ---
Author Name Unknown Organization [facility] Address [address] [facility] [place] [address] Phone Care Team Providers Care Gamemaster Name Role Phone Helder Medina MD Unavailable Unavailabl e Allergies, Adverse Reactions, Alerts [...] 1300 MG - Active Procedures Procedure Date X-Ray [...] Antibodies Dna Antibody, Single Strand Dna Antibody, [place] Nuclear Antigen Antibodies Rheumatoid Factor, IGM Rheumatoid Factor, IGG, IGA Advance Directives Directive Yes / No Effective Date File Name No Information Encounters Encounter Description Practice Location Reason(s) For Visit Diagnoses Date Provider Providers Copied on Encounter [facility], [address], [place], [address], [place] tel:[phone] [facility], No Information Oct- 4 Adam Pendleton. [address], [place], [address], [place]. tel:[phone] Referring Provider: Helder Jain, [address], [place], [address]. tel:[phone] Office/Outpa tient Visit, Est [facility], [address], [place], [address], [place] tel:[phone] [facility], Sjogren syndrome w/ inflammatory arthritisPain in left foot 0 4 Lebedoff Helder. [address], [place], [address], [place]. tel:[phone] Referring Provider: Helder Jain, [address], [place], [address]. tel:[phone] Office/Outpa tient Visit, Est [facility], [address], [place], [address], [place] tel:[phone] [facility], Sjogren syndrome w/ inflammatory arthritisPrim mauri osteoarthriti s, right hand 3 Lebedoff Helder. [address], [place], [address], [place]. tel:[phone] Referring Provider: Helder Jain, [address], [place], [address]. tel:[phone] Office/Outpa tient Visit, Est [facility], [address], [place], [address], [place] tel:[phone] [facility], Sicca syndrome, unspecifiedWe akness 0 3 Lebedoff Helder. [address], [place], [address], [place]. tel:[phone] Referring Provider: Helder Lebedoff G, [address], [place], [address]. tel:[phone] Office/Outpa tient Visit, Est [facility], [address], [place], [address], [place] tel:[phone] [facility], Sicca syndrome, unspecifiedPa in in left shoulder Apr- 2 Vicentabedregulo Pendleton. [address], [place], [address], [place]. tel:[phone] Referring Provider: Helder Jain, [address], [place], [address]. tel:[phone] Office/Outpa tient Visit, Est [facility], [address], [place], [address], [place] tel:[phone] [facility], Sicca syndrome, unspecifiedDy spnea Oct- 2 Vicentabedregulo Pendleton. [address], [place], [address], [place]. tel:[phone] Referring Provider: Helder Jain, [address], [place], [address]. 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 [address], [place], [address], [place]. tel:[phone] Referring Provider: Helder Jain, [address], [place], [address]. tel:[phone] Office/Outpa tient Visit, New [facility], [address], [place], [address], [place] tel:[phone] [facility], Sicca syndrome, unspecifiedPa in in rt ankleOther detention (current) drug therapy 1 Adam Pendleton. [address], [address], [place], [address], [place]. tel:[phone] Referring Provider: Helder Medina G, [address], [place], [address]. tel:[phone] [facility], [address], [place], [address], [place] tel:[phone] [facility] No Information 1 Mo Sullivan. [facility] [address] [place] [address] [address], [place], [address], [place]. tel:[phone] Family History Family Member Type Diagnosis Age At Onset No Information Immunizations Vaccine Date Status Comments COVID-19 Moderna administered Source: Ot er Provider COVID-19 Pfizer administered Note: 1 ; Source: Other Provider Payers Payer name Insurance type Covered alliance party ID Authoriza tion(s) [employer] Medicare Adv [id number] MB [id number] Social History Type Description Quantity Date Captured [...] Order Fo ot X-ray; Complete (3+ views) (84777), Sent on: Sent History Of Present Illness [...]
--- OUTSIDE RECORDS SUMMARY | 2023-11-18 08:52 | XMS_ITS | Clinical Summary ---
Author Name Unknown Organization [employer] [facility] Address [place], [place] [address] Care Team Providers Care Forensic Structural Engineer Name Role Phone Kd Restrepo MD Unavailable [phone] Cody Veliz MD Unavailable [phone] Maritza Rendon DO Primary Care Provide r [...] SOB (shortness of breath) 01/25/2020 Fatigue 01/25/2020 [facility] current use of systemic steroids 09/27 Prediabetes [...] Date Anticoagulation monitoring, INR range 2-3 [Z79.01]; [place] [employer] 2.5-3.0 12/06/2016 Pessary maintenance 02/25/2016 09/28/19 20 Anticoagulation monitoring, goal range 2.0-2.6 09/19/2013 01/09/2018 Abnormal stress test 11/17/2010 011 Routine general medical exam ination at a health care facility 07/12/2009 09/28/2019 Overview: Normal CT angiogram 11/2010 Hip pain 05/06/2008 07/09/2009 Onychomycosis 05/06/2008 08/27/2008 HX OF VENOUS THROMBOSIS AND EMBOLISM 11/09/2006 12/06/2012 Bilateral pulmonary embolism 10/11/2006 11/18/2017 AFTERCARE, LONG-TERM USE, ID DICATIONS NEC-PLAQUENIL 10/22/2003 Encounters Date Type Department Care Team Description 09/29/2023 9:00 AM CDT Orders Only [facility] [address] [place] [address] Lab, Farm Outside Order (Kd Restrepo MD PA 07/07/2023) 09/29/2023 Travel 08/29/2023 10:00 AM WEB PRESS ROLL TENDER Office Visit [facility] [address] [place] [address] Tomas Page, OD Follow Up (6 Month AMD Ck ) 08/29/2023 Travel from Last 3 Months Immunizations Name Administration Dates Next Due AMB INFLUENZA IIV3 (AGE 65+ YRS) PF (Flu Clinic Only) 03/23/2017 AMB Influenza, IIV3 (Age >=3 years) Preserve Free (Flu Clinic Only) 04/08/2009 AMB Influenza, IIV3 (Age >=3 years)(Flu Clinic Only) 04/06/2013,04/16/2011,04/24/2008 COVID-19 vaccine ([employer] 30mcg/0.3mL) PF, MDV 09/02/2020,08/12/2020 Influenza A (H1N1), [...] Comments Blood Pressure 159/65 08/05/2023 2:27 PM WEB PRESS ROLL TENDER Pulse 62 08/05/2023 2:27 PM WEB PRESS ROLL TENDER Temperature 36.2 ??C (97.1 ??F) 04/23/2022 8:11 AM CD T Respiratory Rate 18 03/18/2023 2:24 PM CDT Oxygen Saturation 99% 08/05/2023 2:27 PM WEB PRESS ROLL TENDER Inhaled Oxygen Concentration - - Weight 64.4 kg (142 lb) 08/05/2023 2:27 PM WEB PRESS ROLL TENDER Height 149.9 cm (4' 11) 03/18/2023 2:24 PM CDT Body Mass Index 28.68 03/18/2023 2:24 PM CDT Plan of Treatment Upcoming Encounters Date Type Department Care Team (Late st Contact Info) Description 11/23/2023 7:00 AM CDT Appointment [facility] [address] [place], [place] [id number] 11/23/2023 8:30 AM CDT Appointment [facility] [address] [place] [address] 11/23/2023 9:30 AM CDT Office Visit [facility] [address] [place] [address] Charlotte Anderson MD [address] [place] [address] 02/28/2024 10:00 AM CDT Office Visit [facility] [address] [place] [address] [place] [address] [place] [address] Health Maintenance Due Date Last [...] history exists Medical Devices Implanted Type Area Housing Development Specialist Device Identifier Shelf Expiration Date Model / Serial / Lot Lead Kit 4.32mm Spacing 28cm Length Interstim - [id number] Implanted:Qty: 1 on 04/01/2020 by Charlotte Smith MD at [facility] N/A: Sacrum [employer] Pain Therapy 09/30/2021 [id number] / / [id number] Stimulator 7.7mm 14cc Interstim Ii - [id number] Implanted:Qty: 1 on 04/01/2020 by Charlotte Smith MD at [facility] N/A: Sacrum [employer] Pain Therapy 03/31/2021 [id number] / [id number] / Description:PIN [id number] Procedures Procedure Name Priority Date/Time Associated Diagnosis Comments T4,FREE Routine 09/29/2023 9:04 AM CDT Myxedema heart disease TSH Routine 09/29/2023 9:04 AM CDT Myxedema heart disease XR DXA BONE DENSITY 2 SITES AXIAL Routine 07/02/2019 11:48 AM WEB PRESS ROLL TENDER Osteopenia of multiple sites from Last 3 Months or Most Recently Relevant to Health Maintenance Results * TSH (09/29/2023 9:04 AM CDT) TSH 1.48 0.27 - 4.20 uIU/mL 09/29/2023 5:48 PM CDT [facility] Blood BLOOD SPECIMEN / Unknown Venipuncture / Unknown 09/29/2023 9:04 AM CDT 09/29/2023 9:04 AM CDT Narrative [facility] - 09/29/2023 5:48 PM CDT In Adults, TSH values between 5.00 and 10.00 uIU/ml do not necessarily indicate the presence of Hypothyroidism. Correlation with clinical findings such as presence of goiter and/or Thyroperoxidase (TPO) Antibody may be helpful. For more information please refer to SUZETTE 2004; 291: 228-238. Rakel Connor DO CHEMISTRY Performing Organization Address City/[facility]/ZIP Co de Phone Number [facility] [address] [place] [address], * (ABNORMAL) T4,FREE (09/29/2023 9:04 AM CDT) T4,FREE 1.78(H) 0.93 - 1.70 ng/dL 09/29/2023 5:48 PM CDT [facility] Blood BLOOD SPECIMEN / Unknown Venipuncture / Unknown 09/29/2023 9:04 AM CDT 09/29/2023 9:04 AM CDT Rakel Connor DO CHEMISTRY [facility] [address] [place] [address], * (ABNORMAL) XR DXA BONE DENSITY 2 SITES AXIAL (07/02/2019 11:48 AM WEB PRESS ROLL TENDER) Anatomical Region Laterality Modality Spine, HIPS, HIPL, HIPR Other Narrative 07/06/2019 11:01 AM WEB PRESS ROLL TENDER Please see scanned document for results of this study. Rakel Connor DO DEXA from Last 3 Months or Most Recently Relevant to Health Maintenance Advance Directives Documents on File Type Date Recorded Patient Hospital Insurance Representative Expl anation Healthcare Directive 07/19/2016 2:58 PM [...] 8:45 AM 09/01/2016 4:04 PM Care Teams Forensic Structural Engineer Relationship Specialty Start Date End Date Maritza Rendon DO [address] [place] [address] PCP - General Family Practice 12/30/22 Kd Restrepo MD Endocrinology 11/24/11 Cody Veliz MD Rheumatology 11/24/11
--- OUTSIDE RECORDS SUMMARY | 2023-11-18 08:52 | XMS_ITS | Data Portability ---
Author Name Unknown Address [address] [place] [address] Phone [phone] Organization [facility] Address [address] [facility] [address] [place] [address] Care Team Providers Care Orthodontic Band Maker Name Role Phone [facility] Primary Care Provider Assessment No assessment recorded. Plan of Treatment Reminders Order Date Submit Date Provider Last Modified By Organization Details Last Modified Time Details Appointments ESTABLISH ED 20 2023 09:00A M ELMA Blanco Not available Not available Not available ESTABLISH ED 45 2023 09:30A M DEMETRI Denis Not available Not available Not available Lab urinalysi s, dipstick 2021 022 [facility], [address], [place], [address], 09/14/2021 10:41:46 urinalysi s, dipstick 2021 022 [facility], [address], [place], [address], 08/03/2021 11:48:36 Referral None recorded. Procedures None recorded. Surgeries None recorded. Imaging None recorded. Medication Orders Myrbetriq 50 mg tablet,ex tended release 2021 022 [email or web address] ([facility]), [address] [place], [address], 11/12/2021 11:33:16 Gemtesa 75 mg tablet 2021 022 [email or web address] Not available 11/12/2021 11:33:22 Gemtesa 75 mg tablet [address] [id number], [facility] [address], [address], 11/12/2021 11:33:54 Theracran 650 mg capsule 2019 020 [facility], [address] [place] [address], [address], 05/13/2020 10:33:26 Patient TargetsNo targets recorded. Patient Instructions Encounter Date Encounter Id Patient Instructions Last Modified By Organization Details Last Modified Time 04/28/2023 [id number] Over Active Blad betty (OAB): -Managed with [...] needed [email or web address] Not available 04/28/2023 11:58:26 12/06/2022 [id number] Test each progra m for at least 2 weeks, adjusting amplitude as needed. May remain on a program as long as it is effective. Return as needed for reprogramming. [email or web address] Not available 12/06/2022 10:55:41 04/09/2022 [id number] Test each progra m for at least 2 weeks, adjusting amplitude as needed. May remain on a program as long as it is effective. Return as needed for reprogramming. [email or web address] Not available 04/09/2022 12:34:22 Patient states t hat Gemtesa samples were effective, but the rx was too expensive, so she stopped taking. She would like to try the Gemtesa again, but wonders of it is ok t take every other day, to spread the prescription out, and decrease the expense. I will ask MICHELET Blanco. [email or web address] Not available 04/09/2022 12:37:43 11/12/2021 [id number] Over Active Blad betty (OAB): -Managed with [...] minutes [email or web address] Not available 11/12/2021 11:46:55 09/14/2021 [id number] Over Active Blad betty (OAB): -Managed with [...] issues rbourget Not available 09/14/2021 10:49:32 09/14/2021 [id number] Test each progra m for at least 2 weeks, adjusting amplitude as needed. May remain on a program as long as it is effective. Return as needed for reprogramming. [email or web address] Not available 09/14/2021 10:07:26 Patient states t hat Gemtessa samples were very effective, but it is not covered by her insurance. She was also given a rx for Myrbetriq. [email or web address] Not available 09/14/2021 10:08:49 08/03/2021 [id number] s/p interstim surescan -ok for MRIs -doing really well and pleased but occ with UUI 90% better, she is still bothered that she would do more and will give gemtesa 75mg--to see in 6-8 week with PA and with demetri. -to call LEAN MANUFACTURING SPECIALIST re clitoral fusion/LS. -theracran (cranberry supplement) -to let me know if more utis Not available 08/03/2021 11:56:59 11/26/2020 [id number] Test each progra m for at least 2 weeks, adjusting amplitude as needed. May remain on a program as long as it is effective. Return as needed for reprogramming. [email or web address] Not available 11/27/2020 12:32:23 Reviewed the use of the smart edi programmer analyst, and provided handout. Instructed the patient to lay down, with her legs above the level of her heart for at least 1 hour in the late afternoon. This may increase urinary frequency for a couple of hours in the evening, but should help to decrease the nocturia. [email or web address] Not available 11/27/2020 12:46:50 11/11/2020 [id number] sp interstim surescan -ok for MRIs -healing well -to see me in 12 months, will have her see demetri now for programmign options -doing really well and pleased but occ with UUI 90% better -to call LEAN MANUFACTURING SPECIALIST re clitoral fusion/LS. -theracran (cranberry supplement) -to let me know if more utis [email or web address] Not available 11/11/2020 12:16:02 05/13/2020 [id number] sp interstim 6 w [place] ago -ok for MRIs -healing well -to see me in 6 months, to call if any issues or needs programming -to call LEAN MANUFACTURING SPECIALIST re clitoral fusion/LS. -to start theracran (cranberry supplement) -to let me know if more utis Not available 05/13/2020 10:31:23 04/15/2020 [id number] sp Interstim -- healing well educated more today to see in 1mo, reminded to call if any questions with the edi programmer analyst. Not available 04/15/2020 10:12:25 Reason for Referral None Reported. Results Created Date Observation Date Name Description Value Unit Range Abnormal Flag LastModifiedBy Organization Detail LastModifiedTime 08/03/19 22 08/03/2021 UA DIP CS ADVAN TUS color -advantus YELLOW yellow Not Available [facility] [address], [place], [address], 08/03/2021 11:48:36 08/03/19 22 08/03/2021 UA DIP CS ADVAN TUS appearance -advantus CLEAR clear Not Available [facility] [address] [facility] [address], [place], [address], 08/03/2021 11:48:36 08/03/19 22 08/03/2021 UA DIP CS ADVAN TUS glucose -advantus NEGATI VE mg/dL negati ve Not Available [facility] [address] [facility] [address], [place], [address], 08/03/2021 11:48:36 08/03/19 22 08/03/2021 UA DIP CS ADVAN TUS bilirubin -advantus NEGATI VE negati ve Not Available [facility] [address] [facility] [address], [place], [address], 08/03/2021 11:48:36 08/03/19 22 08/03/2021 UA DIP CS ADVAN TUS ketones -advantus NEGATI VE mg/dL negati ve Not Available [facility] [address] [facility] [address], [place], [address], 08/03/2021 11:48:36 08/03/19 22 08/03/2021 UA DIP CS ADVAN TUS sp. gravity -advantus 1.010 1.010- 1.025 Not Available [facility] [address] [place] [address] [address], [place], [address], 08/03/2021 11:48:36 08/03/19 22 08/03/2021 UA DIP CS ADVAN TUS pH -advantus 5.5 5.0-8. 0 Not Available [facility] [address] [facility] [address], [place], [address], 08/03/2021 11:48:36 08/03/19 22 08/03/2021 UA DIP CS ADVAN TUS protein -advantus NEGATI VE mg/dL negati ve Not Available [facility] [address] [place] [address] [address], [place], [address], 08/03/2021 11:48:36 08/03/19 22 08/03/2021 UA DIP CS ADVAN TUS urobilinogen -advantus 0.2 normal Not Available [facility] [address] [place] [address] [address], [place], [address], 08/03/2021 11:48:36 08/03/19 22 08/03/2021 UA DIP CS ADVAN TUS nitrites -advantus NEGATI VE negati ve Not Available [facility] [address] [place] [address] [address], [place], [address], 08/03/2021 11:48:36 08/03/19 22 08/03/2021 UA DIP CS ADVAN TUS blood -advantus SMALL negati ve abnormal Not Available [facility] [address] [place] [address] [address], [place], [address], 08/03/2021 11:48:36 08/03/19 22 08/03/2021 UA DIP CS ADVAN TUS leukocytes -advantus TRACE negati ve abnormal Not Available [facility] [address] [place] [address] [address], [place], [address], 08/03/2021 11:48:36 08/03/19 22 08/03/2021 UA DIP CS ADVAN TUS performed by Geena Ingram Not Available [facility] [address] [place] [address] [address], [place], [address], 08/03/2021 11:48:36 08/03/19 22 08/03/2021 UA DIP CS ADVAN TUS total urine volume (mL) 20 /mL Not Available [facility] [address] [place] [address] [address], [place], [address], 08/03/2021 11:48:36 08/03/19 22 08/03/2021 UA MICRO SCOPI C U-WBC 0 - 2 [hpf] 0 - 2 Not Available [facility] [address] [place] [address] [address], [place], [address], 08/03/2021 11:48:38 08/03/19 22 08/03/2021 UA MICRO SCOPI C U-RBC 0 - 2 [hpf] 0 - 2 Not Available [facility] [address] [facility] [address], [place], [address], 08/03/2021 11:48:38 08/03/19 22 08/03/2021 UA MICRO SCOPI C bacteria Small [hpf] negati ve abnormal Not Available [facility] [address] [place] [address] [address], [place], [address], 08/03/2021 11:48:38 08/03/19 22 08/03/2021 UA MICRO SCOPI C squamous epi Small /lpf negati ve,sma ll Not Available [facility] [address] [place] [address] [address], [place], [address], 08/03/2021 11:48:38 09/15/19 22 09/14/2021 UA DIP CS ADVAN TUS color -advantus YELLOW yellow Not Available [facility] [address] [place] [address] [address], [place], [address], 09/14/2021 10:41:46 09/15/19 22 09/14/2021 UA DIP CS ADVAN TUS appearance -advantus CLEAR clear Not Available [facility] [address] [place] [address] [address], [place], [address], 09/14/2021 10:41:46 09/15/19 22 09/14/2021 UA DIP CS ADVAN TUS glucose -advantus NEGATI VE mg/dL negati ve Not Available [facility] [address] [place] [address] [address], [place], [address], 09/14/2021 10:41:46 09/15/19 22 09/14/2021 UA DIP CS ADVAN TUS bilirubin -advantus NEGATI VE negati ve Not Available [facility] [address] [place] [address] [address], [place], [address], 09/14/2021 10:41:46 09/15/19 22 09/14/2021 UA DIP CS ADVAN TUS ketones -advantus NEGATI VE mg/dL negati ve Not Available [facility] [address] [facility] [address], [place], [address], 09/14/2021 10:41:46 09/15/19 22 09/14/2021 UA DIP CS ADVAN TUS sp. gravity -advantus 1.010 1.010- 1.025 Not Available [facility] [address] [facility] [address], [place], [address], 09/14/2021 10:41:46 09/15/19 22 09/14/2021 UA DIP CS ADVAN TUS pH -advantus 6.0 5.0-8. 0 Not Available [facility] [address] [place] [address] [address], [place], [address], 09/14/2021 10:41:46 09/15/19 22 09/14/2021 UA DIP CS ADVAN TUS protein -advantus NEGATI VE mg/dL negati ve Not Available [facility] [address] [place] [address], [place], [address], 09/14/2021 10:41:46 09/15/19 22 09/14/2021 UA DIP CS ADVAN TUS urobilinogen -advantus 0.2 normal Not Available [facility] [address] [facility] [address], [place], [address], 09/14/2021 10:41:46 09/15/19 22 09/14/2021 UA DIP CS ADVAN TUS nitrites -advantus NEGATI VE negati ve Not Available [facility] [address] [place] [address], [place], [address], 09/14/2021 10:41:46 09/15/19 22 09/14/2021 UA DIP CS ADVAN TUS blood -advantus SMALL negati ve abnormal Not Available [facility] [address] [facility] [facility] [address], [place], [address], 09/14/2021 10:41:46 09/15/19 22 09/14/2021 UA DIP CS ADVAN TUS leukocytes -advantus NEGATI VE negati ve Not Available [facility] [address] [facility] [facility] [address], [place], [address], 09/14/2021 10:41:46 09/15/19 22 09/14/2021 UA DIP CS ADVAN TUS performed by Bibi Ruiz Not Available [facility] [address] [facility] [address], [place], [address], 09/14/2021 10:41:46 09/15/19 22 09/14/2021 UA DIP CS ADVAN TUS total urine volume (mL) 20cc /mL Not Available [facility] [address] [place] [address] [address], [place], [address], 09/14/2021 10:41:46 09/15/19 22 09/14/2021 UA MICRO SCOPI C U-WBC 0 - 2 [hpf] 0 - 2 Not Available [facility] [address] [facility] [address], [place], [address], 09/14/2021 10:41:47 09/15/19 22 09/14/2021 UA MICRO SCOPI C U-RBC 0 - 2 [hpf] 0 - 2 Not Available [facility] [address] [facility] [facility] [address], [place], [address], 09/14/2021 10:41:47 09/15/19 22 09/14/2021 UA MICRO SCOPI C bacteria Small [hpf] negati ve abnormal Not Available [facility] [address] [facility] [facility] [address], [place], [address], 09/14/2021 10:41:47 09/15/19 22 09/14/2021 UA MICRO SCOPI C squamous epi Small /lpf negati ve,sma ll Not Available [facility] [address], [place], [address], 09/14/2021 10:41:47 04/02/20 20 04/01/2020 XR, abdom en No observ ation record ed. [facility] [address] [facility] [place], [address], 04/02/2020 11:32:57 Result Notes None recorded. Problems Name Status Onset Date Resolution Date Notes Provider Name and Address Organization Details Recorded Time Chronic cystitis Active 2018 N30.20 : Chronic cystitis Not Available [facility] 0 23:40:26 Overactive bladder Active 2018 N32.81 : Bladder muscle dysfunction - overactive Not Available [facility] 0 23:40:26 Benign neoplastic disease Active 2019 Daphne felix [facility] 0 09:58:09 Tear film insufficiency Active 2019 Daphne felix [facility] 0 09:58:21 [facility]esophageal [facility] Hyperlipidemia Active 2019 Daphne felix [facility] 0 09:58:36 Heart disease Active 2022 Radhika felix [facility] 3 11:27:33 Problem Notes None recorded. Procedures Surgical History Date Name Laterality Status Provider Name and Address Organization Details Recorded Time 04/28/20 23 Sacral neuromodulation w/o reprogramming completed ELMA Blanco [address] [facility], [place], [address], [facility] 04/28/2023 11:57:28 04/28/20 23 Bladder Scan completed Radhika felix [facility] 04/28/2023 11:36:21 12/07/19 23 Sacral neuromodulation w/o reprogramming completed Demetri felix [facility] 12/06/2022 11:08:45 10/07/20 22 Sacral Stimulator Reprogramming completed Demetri Bosch null, [facility] 04/09/2022 12:49:34 09/15/19 22 Bladder Scan completed Merry Ocampo null, [facility] 09/14/2021 10:25:15 09/15/19 22 Sacral neuromodulation w/o reprogramming completed Demetri felix, [facility] 09/14/2021 10:15:12 08/03/19 22 Past Data Reviewed completed Charlotte Smith MD [address] [place] [address],[address], [place], [address], [facility] 08/03/2021 08:29:52 08/03/19 22 [facility] 11:50:03 11/27/19 21 Sacral Stimulator Reprogramming completed Demetri felix, [facility] 11/27/2020 12:44:01 09/17/19 20 Implant neuroelectrodes completed Not Available [facility] 12/13/2019 18:11:39 11/29/19 19 Insert bladder catheter completed Not Available [facility] 12/13/2019 18:11:39 11/14/19 15 Colonoscopy completed Lucinda felix, [facility] 11/11/2020 11:57:08 11/29/19 09 Total hip arthroplasty completed Not Available [facility] 12/13/2019 18:11:39 11/29/19 00 Unlisted procedure breast completed Not Available [facility] 12/13/2019 18:11:39 Appendectomy add-on completed Not Available [facility] 12/13/2019 18:11:39 Imaging Results Imaging Date Name Status LastModified by Organiz ation Details LastModified Time 04/01/2020 XR, abdomen completed [facility] [address] [facility] [place], [address], 04/02/2020 11:32:57 Procedure Notes None recorded. Medical Equipment None Reported. Allergies Allergen ID Allergen Name Allergen Category Reaction Reaction Severity Criticality Documentation Date Start Date Code Code System Note Provider Name and Address Organization Details Recorded Time 19861108 Nitroimid azole (substanc e) medicatio n Not available Not available Not available 12/12/2019 91151 5001 SNOMED Not Available [facility] 0 23:50:45 265112 sulindac medicatio n Not available Not available Not available 12/12/2019 46933 RxNorm Not Available [facility] 0 23:50:45 357665 Medicinal product containin g penicilli n and acting as antibacte rial agent (product) medicatio n itching Not available Not available 12/12/2019 84651 05 SNOMED Not Available [facility] 0 23:50:45 600615 atorvasta tin medicatio n Not available Not available Not available 12/12/2019 09425 RxNorm Not Available [facility] 0 23:50:45 017451 tetracycl ine medicatio n Not available Not available Not available 12/12/2019 45463 RxNorm Not Available [facility] 0 23:50:45 722428 alendrona te sodium medicatio n Not available Not available Not available 12/12/2019 85368 2 RxNorm Not Available [facility] 0 23:50:45 431413 amoxicill in medicatio n Not available Not available Not available 12/12/2019 723 RxNorm Not Available [facility] 0 23:50:45 639172 oxybutyni n chloride Not available dizziness Not available Not available 12/12/2019 59189 RxNorm fatig ue Not Available [facility] 0 23:50:45 612210 aspirin medicatio n Not available Not available Not available 12/12/2019 1191 RxNorm Not Available [facility] 0 23:50:46 743724 losartan Not available Not available Not available Not available 12/12/2019 89451 RxNorm Not Available [facility] 0 23:50:46 756412 estrogens , conjugate d ([facility]) medicatio n Not available Not available Not available 12/12/2019 4099 RxNorm Not Available [facility] 0 23:50:46 602800 ciproflox acin medicatio n Not available Not available Not available 12/12/2019 2551 RxNorm Not Available [facility] 0 23:50:46 488703 hydrochlo rothiazid e medicatio n Not available Not available Not available 12/12/2019 5487 RxNorm Not Available [facility] 0 23:50:46 005703 metoprolo l Not available Not available Not available Not available 12/12/2019 6918 RxNorm Not Available [facility] 0 23:50:46 002543 naproxen medicatio n Not available Not available Not available 12/12/2019 7258 RxNorm Not Available [facility] 0 23:50:46 220328 clindamyc in Not available Not available Not available Not available 12/12/2019 2582 RxNorm Not Available [facility] 0 23:50:46 636210 Substance with sulfonami de structure and antibacte rial mechanism of action (substanc e) medicatio n Not available Not available Not available 11/11/2020 02124 8003 SNOMED [facility] 11:56:30 352789 Myrbetriq medicatio n swelling Not available Not available 10/05/2021 70299 92 RxNorm [facility] 2 13:18:14 034321 Sambucus Elderberr y Immune medicatio n Not available Not available Not available 04/09/2022 Demetri Bosch [facility] 2 12:14:11 Medications Name Sig [...] Updated DateTime 04/09/2022 154.94 cm 27.8 kg/m2 25052.08 g Demetri Bosch [facility] 04/09/2022 12:13:52 Date Recorded Body height Body mass index (BMI) Body weight Provider Name and Address Organization Details Last Updated DateTime 12/06/2022 154.94 cm 25.5 kg/m2 80260.97 g Demetri Bosch [facility] 12/06/2022 10:41:56 Date Recorded Body height Body mass index (BMI) Body weight Provider Name and Address Organization Details Last Updated DateTime 04/15/2020 157.48 cm 26.3 kg/m2 23913.3 g Daphne Montague [facility] 04/15/2020 10:05:09 Date Recorded Body height Body mass index (BMI) Body weight Provider Name and Address Organization Details Last Updated DateTime 04/28/2023 154.94 cm 25.5 kg/m2 80652.97 g Radhika Mathis [facility] 04/28/2023 11:25:35 Date Recorded Body height Body mass index (BMI) Body weight Provider Name and Address Organization Details Last Updated DateTime 05/13/2020 157.48 cm 26.3 kg/m2 84635.3 g Daphne Ramirezrdle [facility] 05/13/2020 10:15:26 Date Recorded Body height Body mass index (BMI) Body weight Provider Name and Address Organization Details Last Updated DateTime 11/11/2020 157.48 cm 26.3 kg/m2 10398.3 g Luc[facility] 11/11/2020 11:56:20 Date Recorded Body height Body mass index (BMI) Body weight Provider Name and Address Organization Details Last Updated DateTime 11/26/2020 158.75 cm 27.2 kg/m2 19150.45 g Demetri Bosch [facility] 11/26/2020 10:47:36 Date Recorded Body height Body mass index (BMI) Body weight Provider Name and Address Organization Details Last Updated DateTime 08/03/2021 158.75 cm 27.2 kg/m2 80301.45 g Usha Corado [facility] 08/03/2021 11:35:42 Date Recorded Body height Body mass index (BMI) Body weight Provider Name and Address Organization Details Last Updated DateTime 09/14/2021 158.75 cm 26.5 kg/m2 92991.08 g Demetri Bosch [facility] 09/14/2021 09:54:39 Date Recorded Body height Body mass index (BMI) Body weight Provider Name and Address Organization Details Last Updated DateTime 09/14/2021 158.75 cm 26.5 kg/m2 13057.08 g Merry Ocampo [facility] 09/14/2021 10:08:57 Date Recorded Body height Body mass index (BMI) Body weight Provider Name and Address Organization Details Last Updated DateTime 11/12/2021 154.94 cm 27.8 kg/m2 38942.08 g Merry Ocampo [facility] 11/12/2021 11:32:20 Social History Question Answer Notes LastModified by Organizat ion Details LastModified Time Tobacco Smoking Status Never Smoker Not Available [facility] 12/13/2019 02:00:45 What Is Your Level Of Alcohol Consumption? None Information not available 09/14/2021 What Is Your Level Of Caffeine Consumption? Heavy Information not available 09/14/2021 Are You Currently Employed? No Information not available 09/14/2021 Race White [email or web address] Information n ot available 12/13/2019 Ethnicity Not /Lat vane Information not available 09/14/2021 Preferred Language Djiboutian Information not available 09/14/2021 Recreational Drug Use No Information not available 09/14/2021 Could You Be ? No Information not available 09/14/2021 Marital Status [email or web address] Informati on not available 12/13/2019 What Was The Date Of Your Most Recent Tobacco Screening? 12/06/2022 [email or web address] Information not available 12/06/2022 What Is Your [...] Arthritis:Grandmother Heart Disease:Mother Medical History Condition Response Other N High Blood Pressure Y Kidney Stones N Lung Disease N Depression N GERD/Acid Reflux Y Sexually Transmitted Infection N Cancer N High Cholesterol N Diabetes N Bleeding Disorder Y Heart Disease Y Gynecological HistoryNo gynecological history recorded. Obstetrics History GPAL:G 0 P 0 0 0 0 Immunizations Vaccine Type Date Status Provider Name and Address Organization Details Recorded Time Pneumococcal conjugate PCV 13 07/04/2017 completed STEPHEN [facility] 04/28/2023 11:25:40 Past Encounters Encounter ID Performer Location Encounter Start Date Encounter Closed Date Diagnosis/Indication Diagnosis SNOMED-CT Code [id number] Charlotte Smith MD [facility] [address] [facility],[address] [place] [address] 04/15/2020 10:02:52 04/25/2020 12:54:57 Overactive bladder [id number] Urge incon tinence of urine [id number] Charlotte Smith MD [facility] [address] [facility],[address] [place] [address] 05/13/2020 10:14:48 05/13/2020 14:22:18 Overactive bladder [id number] Urge incon tinence of urine [id number] History of urinary tract infection [id number] Charlotte Smith MD [place] [id number] [facility],[address] [place] [address] 11/11/2020 11:46:55 11/11/2020 13:40:18 Overactive bladder [id number] Urge incon tinence of urine [id number] Demetri [facility] [address] [place] [address],[facility] [place] e [address] [place] [phone] 11/26/2020 10:15:12 12/02/2020 15:37:48 Overactive bladder [id number] Nocturia [id number] MD Naima [facility] [address] [place] [address] [place] [phone] 08/03/2021 11:31:50 08/03/2021 12:09:22 Overactive bladder [id number] Urge incon tinence of urine [id number] Nocturia [id number] ELMA Blanco [facility] [address] [place] [address],[facility] [place] e [address] [place] [phone] 09/14/2021 10:06:36 09/14/2021 14:16:12 Overactive bladder [id number] Urge incon tinence of urine [id number] Nocturia [id number] Demetri Bosch [facility] [address] [place] [address],it e [address] [place] [phone] 09/14/2021 09:30:06 09/14/2021 14:31:59 Overactive bladder [id number] ELMA Blanco [facility] [address] [place] [address],[address] [phone] 11/12/2021 11:29:59 11/12/2021 12:37:25 Overactive bladder [id number] Urge incon tinence of urine [id number] Nocturia [id number] Demetri [facility] [address] [place] [address],[address] [phone] 04/09/2022 11:43:46 04/09/2022 13:38:20 Overactive bladder [id number] Demetri [facility] [address] [place] [address],[address] [phone] 12/06/2022 10:28:13 12/06/2022 11:24:29 Overactive bladder [id number] ELMA Blanco [facility] [address] [place] [phone] 04/28/2023 11:22:38 04/28/2023 12:04:03 Overactive bladder [id number] Urge incon tinence of urine [id number] Nocturia [id number] Health Concerns Section Related Observation LastModified by Organization Detai ls LastModified Time None Recorded Concern Status LastModified by Organization Details LastModified Time None Recorded Advance Directives Directive None Recorded Payers Encounter Date Sequence Insurance Name Policy Number Policy Betancourt Covered Member ID Betancourt Member ID Guarantor Name 04/28/2023 1 [place] [employer] Patsy Aramis Jerel [id number] Patsy Aramis Jerel 04/28/2023 2 [facility] [id number] Patsy Aramis Jerel [id number] Patsy Aramis Jerel 12/06/2022 1 [place] [employer] Patsy Aramis Jerel [id number] Patsy Aramis Jerel 12/06/2022 2 [facility] [id number] Patsy Aramis Jerel [id number] Patsy A Wood 04/09/2022 1 [place] [employer] Patsy A Wood [id number] P[employer] 04/09/2022 2 [place] [id number] Patsy A Wood [id number] Patsy A Wood 11/12/2021 1 [place] [employer] Patsy A Wood [id number] P[employer] 11/12/2021 2 [place] [id number] Patsy A Wood [id number] Patsy A Wood 09/14/2021 1 [place] [employer] Patsy A Wood [id number] Patsy A Wood 09/14/2021 2 [employer] [id number] Patsy A Wood [id number] Patsy A Wood 09/14/2021 1 [place] [employer] Patsy A Wood [id number] Patsy A Wood 09/14/2021 2 [employer] [id number] Patsy A Wood [id number] Patsy A Wood 08/03/2021 1 [place] [employer] Patsy A Wood [id number] Patsy A Wood 08/03/2021 2 [employer] [id number] Patsy A Wood [id number] Patsy A Wood 11/26/2020 1 [place] [employer] Patsy A Wood [id number] Patsy A Wood 11/26/2020 2 [employer] [id number] Patsy A Wood [id number] Patsy A Wood 11/11/2020 1 [place] [employer] Patsy A Wood [id number] Patsy A Wood 11/11/2020 2 [employer] [id number] Patsy A Wood [id number] Patsy A Wood 05/13/2020 1 [place] [employer] Patsy A Wood [id number] Patsy A Wood 05/13/2020 2 [employer] [id number] Patsy A Wood [id number] Patsy A Wood 04/15/2020 1 [place] [employer] Patsy Beltrán [id number] Patsy Beltrán 04/15/2020 2 [facility] [id number] Patsy Beltrán [id number] Patsy Beltrán Notes Date Note Type Note Provider Name and Address Organization Details Recorded Time 04/15/2020 text/html HPI Notes: sp interstim lead and IPG 9-29 doing well on program 3 vagianl was concerned as it was timing out Charlotte Smith MD [address] [place] [address],[address], [place], [address], [facility] 04/15/2020 10:12:37 05/13/2020 text/html HPI Notes: SP Interstim lead and IPG SureScan 9-29 for OAB/UUI sx. had successful PNE prior, waited for implant as she had back fx. asks about renal cyst, proteinceauosu on mri asks about clitorial irritation, hx of LS using estrogren and clobetasol was on program 3more leaks 2-3 days ago, changed to program 4 vagianl. Charlotte Smith MD [address] [place] [address],[address], [place], [address], [facility] 05/13/2020 10:32:36 11/11/2020 text/html HPI Notes: [...] be almost every hour Charlotte Smith MD [address] [place] [address],[address], [place], [address], [facility] 11/11/2020 12:16:47 08/03/2021 text/html HPI Notes: SP Interstim lead and IPG SureScan 9--20 for OAB/UUI sx. had successful PNE prior, [...] on Lasix as needed Charlotte Smith MD [address] [place] [address],[address], [address], [facility] 08/03/2021 11:57:51 09/14/2021 text/html HPI Notes: [...] to be almost every hour. ELMA Blanco [address] [place] [address],[address], [place], [address], [facility] 09/14/2021 10:49:41 11/12/2021 text/html HPI Notes: [...] with sjorgrens. This visit was conducted using [employer] phone technology. Prior to conducting our health visit, the patient and I discussed the risks, benefits and alternatives to phone visits. The patient elected to proceed with the phone visit. ELMA Blanco [address] [place] [address],[facility] [address], [place], [address], [facility] 11/12/2021 11:50:24 12/06/2022 text/html HPI Notes: [...] width changed Rate chaanged Resolution changed Demetri felix, [facility] 12/06/2022 11:08:58 04/28/2023 text/html [...] to be almost every hour. ELMA Blanco [address] [facility],[address], [place], [address], [place] [facility] 04/28/2023 11:58:40 OBGyn Episode No OBEpisode recorded.
== END 2023-11-18 08:51 | disposition home or self-care (01) ==
LOC: WOUND 08:50
PROVIDERS: PCP Physician Assistant Medical; Visit Provider Nurse Practitioner Family
DX: I87.2 Venous insufficiency (chronic) (peripheral) (principal); L97.322 Non-pressure chronic ulcer of left ankle with fat layer exposed; I73.9 Peripheral vascular disease, unspecified; R73.03 Prediabetes
CPT/HCPCS: 97597

== ENCOUNTER 2023-11-19 12:51 | Emergency (ER) | payer OTHER, SELFPAY ==
[2023-11-19 12:57] VITALS: BP 172/82; PULSE 68; RESP 16; TEMP 20; O2SAT 98; BMI 27.5
--- NOTE | 2023-11-19 13:19 | ED.GENADULT ---
HPI - General Adult General Chief complaint: Diarrhea Stated complaint: Diarrhea Time Seen by Provider: 11/19/23 13:03 History of Present Illness HPI narrative: This 83-year-old female comes in reporting soft mushy stools over the past couple weeks but some of these have occurred rather suddenly without any time to get to the bathroom on time. She does not describe any pain, fever, nausea, vomiting, or blood in the toilet. Currently she feels normal. She comes here because of concern over these episodes where she seems to lose control of her bowels. Related Data Home Medications Medication Instructions Recorded Confirmed Lactobacillus acidophilus 1 10 mg PO DAILY 04/15/22 11/03/23 billion cell capsule betamethasone, augmented 0.05 % 1 applic topical DAILY PRN 04/15/22 11/03/23 topical cream multivitamin 1 tab PO DAILY 04/15/22 11/03/23 clobetasol 0.05 % topical ointment 1 g topical 2XW PRN lichen 09/10/22 11/03/23 sclerosis furosemide 20 mg tablet 20 mg PO DAILY PRN edema 09/10/22 11/03/23 gabapentin 6%/ketamine topical .four time daily PRN 01/24/23 11/03/23 8%/liodcaine 2.5% liposomal cream with baclofen 2% vibegron 75 mg tablet (Gemtesa) 75 mg PO DAILY 03/24/23 11/03/23 diltiazem HCl 240 mg 240 mg PO DAILY 06/02/23 11/03/23 capsule,extended release 24 hr levothyroxine 112 mcg tablet 112 mcg PO .COMPLEX 11/03/23 11/03/23 Previous Rx's Medication Instructions Recorded calcium carbonate 600 mg PO DAILY #90 tabs 01/06/22 lorazepam 0.5 mg tablet 0.25 - 0.5 mg (0.5 - 1 x 0.5 mg) 01/06/22 PO DAILY PRN anxiety #5 tabs pilocarpine HCl 5 mg tablet 5 mg PO TID #270 tabs 09/02/22 acetaminophen 500 mg capsule 500 - 1,000 mg (1 - 2 x 500 mg) PO 09/09/22 Q6H PRN pain #100 caps prednisone 10 mg tablet 10 mg PO Q OTHER DAY #45 tabs 03/16/23 triamcinolone acetonide 0.1 % 1 applic topical BID PRN rash #80 05/05/23 topical cream grams fosfomycin tromethamine 3 gram 1 packet PO Q3D PRN bladder 05/09/23 oral packet infections 2 doses #2 ea denosumab 60 mg/mL subcutaneous 60 mg subcut F2HILDLP #1 mL 05/30/23 syringe (Prolia) warfarin 2.5 mg tablet 2.5 mg PO QDAY #90 tabs 08/15/23 omeprazole 40 mg capsule,delayed 40 mg PO QDAY #90 caps 10/11/23 release sennosides 8.6 mg tablet (Senna 8.6 mg PO BID PRN constipation 11/03/23 Lax) #180 tabs diphenoxylate-atropine 2.5 1 tab PO DAILY #12 tabs 11/19/23 mg-0.025 mg tablet (Lomotil) Allergies Allergy/AdvReac Type Severity Reaction Status Date / Time sulindac Allergy Severe Difficulty Verified 11/03/23 10:53 Breathing tetracycline Allergy Intermediate Rash Verified 11/03/23 10:53 mirabegron Allergy Mild lost Verified 11/03/23 10:53 control of bladder amoxicillin Allergy Unknown Verified 11/03/23 10:53 aspirin Allergy Unknown Verified 11/03/23 10:53 atorvastatin Allergy Unknown Verified 11/03/23 10:53 cholecalciferol (vitamin D3) Allergy Unknown Verified 11/03/23 10:53 [From Vitamin D3] ciprofloxacin Allergy Unknown Verified 11/03/23 10:53 clindamycin Allergy Unknown Verified 11/03/23 10:53 hydrochlorothiazide Allergy Unknown Verified 11/03/23 10:53 losartan Allergy Unknown Verified 11/03/23 10:53 metoprolol Allergy Unknown Verified 11/03/23 10:53 naproxen Allergy Unknown Verified 11/03/23 10:53 Nitroimidazoles Allergy Unknown Verified 11/03/23 10:53 alendronate sodium Allergy Verified 11/03/23 10:53 estrogens, conjugated Allergy Verified 11/03/23 10:53 oxybutynin Allergy Verified 11/03/23 10:53 Penicillins Allergy Verified 11/03/23 10:53 Sulfa (Sulfonamide Allergy Rash Verified 11/03/23 10:53 Antibiotics) Quinolones AdvReac Intermediate bad Verified 11/03/23 10:53 arthritis flair tolterodine AdvReac Intermediate Headache Verified 11/03/23 10:53 cephalexin AdvReac Unknown Hives Verified 11/03/23 10:53 furosemide AdvReac Unknown Verified 11/03/23 10:53 Review of Systems Status of ROS: Reports: 10 or more systems reviewed and unremarkable except as noted in History and below Narrative: Constitutional: No fevers, no weight gain or loss. Eyes: No discharge. No vision changes. HENT: No congestion, no sore throat, no ear pain. Cardiovascular: No chest pain, no palpitations. Respiratory: No shortness of breath, no wheezes, no cough. Gastrointestinal: No abdominal pain, no vomiting. Genitourinary: No dysuria, no hematuria. Musculoskeletal: Normal range of motion. Skin: No rashes, no pruritis. Neurological: No dizziness, weakness, sensory change, speech change. Endo/Heme/Allergies: No bruising or bleeding. No polydipsia. Pysch: no suicidality, no anxiety, no insomnia. All other systems reviewed and are negative. 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 (ICD-10) Hypoxia ?R09.02 - Hypoxemia (ICD-10) Cellulitis ?L03.90 - Cellulitis, unspecified (ICD-10) Mitral valve insufficiency ?I34.0 - Nonrheumatic mitral (valve) insufficiency (ICD-10) Midline cystocele (09/01/16) ?N81.11 - Cystocele, midline (ICD-10) [facility] current use of systemic steroids ?Z79.52 - [facility] (current) use of systemic steroids (ICD-10) Diverticular disease ?K57.90 - Diverticulosis of intestine, part unspecified, without perforation or abscess without bleeding (ICD-10) Surgical History (Updated 11/03/23 @ 08:28 by Jose Napier PA-C) 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) ?Z96.612 - Presence of left artificial shoulder joint (ICD-10) History of bladder surgery (~2020) ?Z98.890 - Other specified postprocedural states (ICD-10) 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) ?Z96.641 - Presence of right artificial hip joint (ICD-10) History of partial surgical removal of colon (08/23/02) ?Z90.49 - Acquired absence of other specified parts of digestive tract (ICD-10) History of lumpectomy of right breast (1999) ?Z98.890 - Other specified postprocedural states (ICD-10) History of colonoscopy with polypectomy (03/2019) ?Z98.890 - Other specified postprocedural states (ICD-10) ?Z86.010 - Personal history of colonic polyps (ICD-10) History of carpal tunnel release of both wrists (~1989) ?Z98.890 - Other specified postprocedural states (ICD-10) History of bladder surgery (09/17/19) ?Z98.890 - Other specified postprocedural states (ICD-10) History of appendectomy ?Z90.49 - Acquired absence of other specified parts of digestive tract (ICD-10) Family History Mother Cancer Heart failure Father Colon cancer Social History Narrative: She lives in [place] with her . Her has some dementia. He is currently home alone. Her son, Bahman, lives nearby. He is primary support and healthcare power of consumer attorney. Code status is full. does not use illicit drugs no history of alcohol use nonsmoker What is your current living situation?: I presently have a place to live In the past 12 months, utilities in danger of being shut off: no In past 12 months, lack of transportation kept you from medical appts, meetings, work, or getting things needed for daily living: no In the past 12 mos, have been you worried that your food would run out before you had money to buy more?: never true Smoking Status: Never smoker Do you use any of these nicotine containing products: None How often do you have a drink containing alcohol: monthly or less Alcohol type: wine How many standard drinks containing alcohol do you have on a typical day: 1 or 2 How often do you have six or more drinks on one occasion: Never AUDIT-C Alcohol total score: 1 Non-prescribed substance use: denies use Caffeine: Yes (1 cup/day) How often does anyone, including family, friends and others, insult or talk down to you: fairly often Little interest or pleasure in doing things: not at all Feeling down, depressed, or hopeless: several days Exam Narrative: Exam Narrative: Constitutional: Well-developed, well-nourished, no acute distress. HEENT: Normocephalic, atraumatic. Neck: Normal range of motion. Nontender. Supple. Heart: Regular. No murmurs. Normal rate. Intact distal pulses. Lungs: Clear to auscultation. No chest discomfort. No wheezes, rhonchi, or rales. Abdomen: Normal bowel sounds. Nontender. No rebound tenderness. Genitalia: Deferred. Back: No midline tenderness. Normal range of motion. Extremities: Normal range of motion. No injury. Skin: Intact. No rash. Warm. No erythema or pallor. Neurologic: No altered sensation. No weakness. Alert and oriented. Psychiatric: No suicidality. No anxiety or depression. No insomnia. Nursing notes and vitals signs are reviewed. Const: Vital Signs, click to edit/add: Vital Signs - 24 hr 11/19/23 12:57 Temperature 68 F L Pulse Rate [Pulse Oximeter] 68 Respiratory Rate 16 Blood Pressure [Ri ght Upper Arm] 172/82 H Pulse Oximetry 98 Oxygen Delivery Me thod Room Air Course Vital Signs Vital signs: Initial Vital Signs Temperature 68 F L 11/19/23 12:57 Temperature Source Temporal Artery Scan 11/19/23 12:57 Pulse Rate 68 11/19/23 12:57 Respiratory Rate 16 11/19/23 12:57 Blood Pressure 172/82 H 11/19/23 12:57 Blood Pressure Mean 112 H 11/19/23 12:57 Pulse Oximetry 98 11/19/23 12:57 Oxygen Delivery Method Room Air 11/19/23 12:57 Vital Signs Temperature 68 F L 11/19/23 12:57 Pulse Rate 68 11/19/23 12:57 Respiratory Rate 16 11/19/23 12:57 Blood Pressure 172/82 H 11/19/23 12:57 Pulse Oximetry 98 11/19/23 12:57 Oxygen Delivery Method Room Air 11/19/23 12:57 Temperature 68 F L 11/19/23 12:57 Pulse Rate 68 11/19/23 12:57 Respiratory Rate 16 11/19/23 12:57 Blood Pressure 172/82 H 11/19/23 12:57 Pulse Oximetry 98 11/19/23 12:57 Oxygen Delivery Method Room Air 11/19/23 12:57 Medical Decision Making MDM Narrative Medical decision making narrative: This 83-year-old female comes in reporting some episodes of uncontrolled soft stools or diarrhea like bowel function. She states that she feels fine otherwise. She does not report any pain. She states that she is due to have a colonoscopy but this is being held off now because of some other things that are being managed in her medical history. I did discuss lab and imaging options with the patient who declined these in a process of shared decision making. Her vital signs and exam are all reassuring. As for treatment I did recommend Imodium for diarrhea but it is more the spasms that seemed to cause occasions where she can not get to the bathroom on time. I did provide a prescription for some tablets of Lomotil and stated that this is not a good long-term plan but it can help her and hopefully her stools will normalize. She is not taking any medicines for constipation but does have a history of constipation in the past. Discharge Plan Discharge Additional Instructions: Take medication as needed and indicated. Follow up with MD as scheduled or sooner if needed. Return if worsening. Prescriptions: New diphenoxylate-atropine [Lomotil] 2.5-0.025 mg tablet 1 tab PO DAILY Qty: 12 0RF No Action calcium carbonate 600 mg calcium (1,500 mg) tablet 600 mg PO DAILY Qty: 90 4RF lorazepam 0.5 mg tablet 0.25 - 0.5 mg PO DAILY PRN (Reason: anxiety) Qty: 5 0RF Rx Instructions: 5 tablets must last one year levothyroxine 112 mcg tablet 112 mcg PO .COMPLEX Rx Instructions: 112 mcg orally x 6 days/week; multivitamin Tablet 1 tab PO DAILY Lactobacillus acidophilus 1 billion cell capsule 10 mg PO DAILY betamethasone, augmented 0.05 % cream 1 applic topical DAILY PRN gabapentin 6%/ketamine 8%/liodcaine 2.5% liposomal cream with baclofen 2% cream topical .four time daily PRN Rx Instructions: hand faxed rx to [facility] [phone] 60 grams with 1 refill sent to scanning diltiazem HCl 240 mg capsule,extended release 24hr 240 mg PO DAILY omeprazole 40 mg capsule,delayed release(DR/EC) 40 mg PO QDAY Qty: 90 0RF Gemtesa 75 mg tablet 75 mg PO DAILY acetaminophen 500 mg capsule 500 - 1,000 mg PO Q6H MDD 4000mg per day PRN (Reason: pain) Qty: 100 0RF clobetasol 0.05 % ointment 1 g topical 2XW PRN (Reason: lichen sclerosis) furosemide 20 mg tablet 20 mg PO DAILY PRN (Reason: edema) pilocarpine HCl 5 mg tablet 5 mg PO TID Qty: 270 4RF prednisone 10 mg tablet 10 mg PO Q OTHER DAY Qty: 45 3RF triamcinolone acetonide 0.1 % cream 1 applic topical BID PRN (Reason: rash) Qty: 80 1RF fosfomycin tromethamine 3 gram packet 1 packet PO Q3D PRN (Reason: bladder infections) Qty: 2 6RF Prolia 60 mg/mL syringe 60 mg subcut [id number] Qty: 1 0RF warfarin 2.5 mg tablet 2.5 mg PO QDAY Qty: 90 0RF Protocol: Dose Management Condition: Tuesday Dose/Route: 2.5 mg Instruction: 1 x 2.5 mg tablet Condition: Tuesday Dose/Route: 2.5 mg Instruction: 1 x 2.5 mg tablet Condition: Tuesday Dose/Route: 2.5 mg Instruction: 1 x 2.5 mg tablet Condition: Tuesday Dose/Route: 2.5 mg Instruction: 1 x 2.5 mg tablet Condition: Dose/Route: 2.5 mg Instruction: 1 x 2.5 mg tablet Condition: Tuesday Dose/Route: 2.5 mg Instruction: 1 x 2.5 mg tablet Condition: Tuesday Dose/Route: 2.5 mg Instruction: 1 x 2.5 mg tablet Protocol Text: Adjustment Start Date: Tuesday11/14/23 INR Value: 1.9 INR Date: 11/14/23 Recheck Date: 11/21/23 sennosides [Senna Lax] 8.6 mg tablet 8.6 mg PO BID PRN (Reason: constipation) Qty: 180 1RF Follow Up/Referrals: Jose Napier PA-C [Primary Care Provider] - Stand Alone Forms: [employer] Info Instructions
--- OUTSIDE RECORDS SUMMARY | 2023-11-19 13:24 | XMS_ITS | Continuity of Care Document ---
Author Name Unknown Organization [facility] Address [address] [place] [address] Phone Care Team Providers Care Outside Sales Consultant Name Role Phone Usha Dickinson Unavailable Unavailable [...] on Encounter [facility], [address], [place], [place], [id number], [place] tel:[phone] No Information 1 [facility]. [facility], [address], [place], [place], [id number] , [place]. [phone] Office/Outpat ient Visit,Est, Mod [facility], [address], [place], [place], [id number], [place] tel:[phone] [facility] Other forms of scoliosis, thoracolumbar regionL2 wedge compression fracture, initial encounter for closed fractureSpondy lolisthesis, lumbar region 0 Kwame Usha. [facility], [address], [place], [place], [id number] , [place]. [phone] Referring Provider: Rakel Arvizu, [employer] [facility] [address] [place], [address]. tel:[phone] Office/Outpat ient Visit,Est, Mod [facility], [address], [facility] [place], [id number], [place] tel:[phone] [facility] L2 wedge compression fracture, initial encounter for closed fractureOther forms of scoliosis, thoracolumbar regionSpondylo listhesis, lumbar region 0 Kwame Kerr. [facility], [address], [place], [place], [id number] , . tel:[phone] Referring Provider: Rakel Arvizu [employer] [address], [place], [address]. tel:[phone] Office/Outpat ient Visit,[facility], [facility], [address], [place], [place], [id number], [place] tel:[phone] [facility] L2 wedge compression fracture, initial encounter for closed fractureOther forms of scoliosis, thoracolumbar regionSpondylo listhesis, lumbar region 0 Kwame Kerr. [facility], [address], [place], [place], [id number] , [place]. tel:[phone] Referring Provider: Rakel Arvizu [employer] [address] [place], [address]. tel:[phone] Family History Family Member Type Diagnosis Age At Onset No Information Payers Payer name Insurance type Covered democrat ID Authoralethaa tishannon(s) Medicare MB [id number] [facility] [id number] [facility] [id number] Social History Type Description Quantity Date Captured [...]
--- OUTSIDE RECORDS SUMMARY | 2023-11-19 13:24 | XMS_ITS | Clinical Summary ---
Author Name Unknown Organization [facility] Address [place], [place] [address] Care Team Providers Care Business Attorney Name Role Phone Kd Restrepo MD Unavailable [phone] Cody Veliz MD Unavailable [phone] Maritza Rendon DO Primary Care Provide r [...] SOB (shortness of breath) 01/25/2020 Fatigue 01/25/2020 senior living current use of systemic steroids 09/27 Prediabetes [...] Date Anticoagulation monitoring, INR range 2-3 [Z79.01]; [place] [facility] 2.5-3.0 12/06/2016 Pessary maintenance 02/25/2016 09/28/19 20 Anticoagulation monitoring, goal range 2.0-2.6 09/19/2013 01/09/2018 Abnormal stress test 11/17/2010 011 Routine general medical exam ination at a health care facility 07/12/2009 09/28/2019 Overview: Normal CT angiogram 11/2010 Hip pain 05/06/2008 07/09/2009 Onychomycosis 05/06/2008 08/27/2008 HX OF VENOUS THROMBOSIS AND EMBOLISM 11/09/2006 12/06/2012 Bilateral pulmonary embolism 10/11/2006 11/18/2017 AFTERCARE, LONG-TERM USE, MA DICATIONS NEC-PLAQUENIL 10/22/2003 Encounters Date Type Department Care Team Description 09/29/2023 9:00 AM CDT [place] [facility] [address] [place] [address] Lab, [place] Outside Order (Kd Restrepo MD PA 07/07/2023) 09/29/2023 Travel 08/29/2023 10:00 AM DIRECTOR LOSS PREVENTION Office Visit [facility] [address] [place] [address] Tomas Page, OD Follow Up (6 Month AMD Ck ) 08/29/2023 Travel from Last 3 Months Immunizations Name Administration Dates Next Due AMB INFLUENZA IIV3 (AGE 65+ YRS) PF (Flu Clinic Only) 03/23/2017 AMB Influenza, IIV3 (Age >=3 years) Preserve Free (Flu Clinic Only) 04/08/2009 AMB Influenza, IIV3 (Age >=3 years)(Flu Clinic Only) 04/06/2013,04/16/2011,04/24/2008 COVID-19 vaccine (ZoopShop 30mcg/0.3mL) PF, MDV 09/02/2020,08/12/2020 Influenza A (H1N1), [...] Comments Blood Pressure 159/65 08/05/2023 2:27 PM DIRECTOR LOSS PREVENTION Pulse 62 08/05/2023 2:27 PM DIRECTOR LOSS PREVENTION Temperature 36.2 ??C (97.1 ??F) 04/23/2022 8:11 AM CD T Respiratory Rate 18 03/18/2023 2:24 PM CDT Oxygen Saturation 99% 08/05/2023 2:27 PM DIRECTOR LOSS PREVENTION Inhaled Oxygen Concentration - - Weight 64.4 kg (142 lb) 08/05/2023 2:27 PM DIRECTOR LOSS PREVENTION Height 149.9 cm (4' 11) 03/18/2023 2:24 PM CDT Body Mass Index 28.68 03/18/2023 2:24 PM CDT Plan of Treatment Upcoming Encounters Date Type Department Care Team (Late st Contact Info) Description 11/23/2023 7:00 AM CDT Appointment [facility] [address] [place], [place] [id number] 11/23/2023 8:30 AM CDT Appointment [facility] [address] [place] [address] 11/23/2023 9:30 AM CDT Office Visit [facility] [address] [place] [phone] Charlotte Anderson MD [address] [place] [address] 02/28/2024 10:00 AM CDT Office [place] [facility] [address] [place] [address] [place] [address] [place] [address] Health Maintenance Due Date Last [...] history exists Medical Devices Implanted Type Area Lane Marker Installer Device Identifier Shelf Expiration Date Model / Serial / Lot Lead Kit 4.32mm Spacing 28cm Length Interstim - [id number] Implanted:Qty: 1 on 04/01/2020 by Charlotte Smith MD at [facility] N/A: Sacrum [employer] Therapy 09/30/2021 [id number] / / [id number] Stimulator 7.7mm 14cc Interstim Ii - [id number] Implanted:Qty: 1 on 04/01/2020 by Charlotte Smith MD at [facility] N/A: Sacrum [employer] Pain Therapy 03/31/2021 [id number] / [id number] / Description:PIN [id number] Procedures Procedure Name Priority Date/Time Associated Diagnosis Comments T4,FREE Routine 09/29/2023 9:04 AM CDT Myxedema heart disease TSH Routine 09/29/2023 9:04 AM CDT Myxedema heart disease XR DXA BONE DENSITY 2 SITES AXIAL Routine 07/02/2019 11:48 AM DIRECTOR LOSS PREVENTION Osteopenia of multiple sites from Last 3 Months or Most Recently Relevant to Health Maintenance Results * TSH (09/29/2023 9:04 AM CDT) TSH 1.48 0.27 - 4.20 uIU/mL 09/29/2023 5:48 PM CDT [facility] Blood BLOOD SPECIMEN / Unknown Venipuncture / Unknown 09/29/2023 9:04 AM CDT 09/29/2023 9:04 AM CDT Narrative [facility] - 09/29/2023 5:48 PM CDT In Adults, TSH values between 5.00 and 10.00 uIU/ml do not necessarily indicate the presence of Hypothyroidism. Correlation with clinical findings such as presence of goiter and/or Thyroperoxidase (TPO) Antibody may be helpful. For more information please refer to [employer]ETTE 2004; 291: 228-238. Rakel Connor DO CHEMISTRY Performing Organization Address [facility]/ZIP Co de Phone Number [facility] [address] [place] [address], * (ABNORMAL) T4,FREE (09/29/2023 9:04 AM CDT) T4,FREE 1.78(H) 0.93 - 1.70 ng/dL 09/29/2023 5:48 PM CDT [facility] Blood BLOOD SPECIMEN / Unknown Venipuncture / Unknown 09/29/2023 9:04 AM CDT 09/29/2023 9:04 AM CDT Rakel Connor DO CHEMISTRY [facility] [address] [place] [address], * (ABNORMAL) XR DXA BONE DENSITY 2 SITES AXIAL (07/02/2019 11:48 AM DIRECTOR LOSS PREVENTION) Anatomical Region Laterality Modality Spine, HIPS, HIPL, HIPR Other Narrative 07/06/2019 11:01 AM DIRECTOR LOSS PREVENTION Please see scanned document for results of this study. Rakel Connor DO DEXA from Last 3 Months or Most Recently Relevant to Health Maintenance Advance Directives Documents on File Type Date Recorded Patient Balance Staff Staker Expl anation Healthcare Directive 07/19/2016 2:58 PM [...] 8:45 AM 09/01/2016 4:04 PM Care Teams Business Attorney Relationship Specialty Start Date End Date Maritza Rendon DO [address] [place] [address] PCP - General Family Practice 12/30/22 Kd Restrepo MD Endocrinology 11/24/11 Cody Veliz MD Rheumatology 11/24/11
--- OUTSIDE RECORDS SUMMARY | 2023-11-19 13:25 | XMS_ITS | Data Portability ---
Author Name Unknown Address [address] [place] [address] Phone [phone] Organization [facility] Address [address] [place] [address] Care Team Providers Care Economic Historian Name Role Phone [facility] Primary Care Provider Assessment No [...] [facility], [address], [place], [address], 09/14/2021 10:41:46 urinalysi s, dipstick 2021 022 [facility], [address], [place], [address], 08/03/2021 11:48:36 Referral None recorded. Procedures None recorded. Surgeries None recorded. Imaging None recorded. Medication Orders Myrbetriq 50 mg tablet,ex tended release 2021 022 [email or web address] ([facility]), [address] [place], [address], 11/12/2021 11:33:16 Gemtesa 75 mg tablet 2021 022 [email or web address] Not available 11/12/2021 11:33:22 Gemtesa 75 mg tablet 2021 MELISSA [id number], [facility] [address], [address], 11/12/2021 11:33:54 Theracran 650 mg capsule 2019 020 [facility], [address] [place] [address], [address], 05/13/2020 10:33:26 Patient TargetsNo targets recorded. Patient Instructions Encounter Date Encounter Id Patient Instructions Last Modified By Organization Details Last Modified Time 04/28/2023 [id number] Over Active Blad betty (OAB): -Managed with [...] needed [email or web address] Not available 04/28/2023 11:58:26 12/06/2022 [id number] Test each progra m for at least 2 weeks, adjusting amplitude as needed. May remain on a program as long as it is effective. Return as needed for reprogramming. [email or web address] Not available 12/06/2022 10:55:41 04/09/2022 [id number] Test each progra m for at least 2 weeks, adjusting amplitude as needed. May remain on a program as long as it is effective. Return as needed for reprogramming. [email or web address] Not available 04/09/2022 12:34:22 Patient states t hat Gemtesa samples were effective, but the rx was too expensive, so she stopped taking. She would like to try the Gemtesa again, but wonders of it is ok t take every other day, to spread the prescription out, and decrease the expense. I will ask MICHELET Blanco. [email or web address] Not available 04/09/2022 12:37:43 11/12/2021 [id number] Over Active Blad betty (OAB): -Managed with [...] minutes [email or web address] Not available 11/12/2021 11:46:55 09/14/2021 [id number] Over Active Blad betty (OAB): -Managed with [...] issues rbourget Not available 09/14/2021 10:49:32 09/14/2021 [id number] Test each progra m for at least 2 weeks, adjusting amplitude as needed. May remain on a program as long as it is effective. Return as needed for reprogramming. [email or web address] Not available 09/14/2021 10:07:26 Patient states t hat Gemtessa samples were very effective, but it is not covered by her insurance. She was also given a rx for Myrbetriq. [email or web address] Not available 09/14/2021 10:08:49 08/03/2021 [id number] s/p interstim surescan -ok for MRIs -doing really well and pleased but occ with UUI 90% better, she is still bothered that she would do more and will give gemtesa 75mg--to see in 6-8 week with PA and with demetri. -to call ENVIRONMENTAL HEALTH INSPECTOR re clitoral fusion/LS. -theracran (cranberry supplement) -to let me know if more utis Not available 08/03/2021 11:56:59 11/26/2020 [id number] Test each progra m for at least 2 weeks, adjusting amplitude as needed. May remain on a program as long as it is effective. Return as needed for reprogramming. [email or web address] Not available 11/27/2020 12:32:23 Reviewed the use of the smart systems programmer, and provided handout. Instructed the patient to lay down, with her legs above the level of her heart for at least 1 hour in the late afternoon. This may increase urinary frequency for a couple of hours in the evening, but should help to decrease the nocturia. [email or web address] Not available 11/27/2020 12:46:50 11/11/2020 [id number] sp interstim surescan -ok for MRIs -healing well -to see me in 12 months, will have her see demetri now for programmign options -doing really well and pleased but occ with UUI 90% better -to call ENVIRONMENTAL HEALTH INSPECTOR re clitoral fusion/LS. -theracran (cranberry supplement) -to let me know if more utis [email or web address] Not available 11/11/2020 12:16:02 05/13/2020 [id number] sp interstim 6 w [place] ago -ok for MRIs -healing well -to see me in 6 months, to call if any issues or needs programming -to call ENVIRONMENTAL HEALTH INSPECTOR re clitoral fusion/LS. -to start theracran (cranberry supplement) -to let me know if more utis Not available 05/13/2020 10:31:23 04/15/2020 [id number] sp Interstim -- healing well educated more today to see in 1mo, reminded to call if any questions with the systems programmer. Not available 04/15/2020 10:12:25 Reason for Referral None Reported. Results Created Date Observation Date Name Description Value Unit Range Abnormal Flag LastModifiedBy Organization Detail LastModifiedTime 08/03/19 22 08/03/2021 UA DIP CS ADVAN TUS color -advantus YELLOW yellow Not Available [facility] [address], [place], [address], 08/03/2021 11:48:36 08/03/19 22 08/03/2021 UA DIP CS ADVAN TUS appearance -advantus CLEAR clear Not Available [facility] [address], [place], [address], 08/03/2021 11:48:36 08/03/19 22 08/03/2021 UA DIP CS ADVAN TUS glucose -advantus NEGATI VE mg/dL negati ve Not Available [facility] [address], [place], [address], 08/03/2021 11:48:36 08/03/19 22 08/03/2021 UA DIP CS ADVAN TUS bilirubin -advantus NEGATI VE negati ve Not Available [facility] [address], [place], [address], 08/03/2021 11:48:36 08/03/19 22 08/03/2021 UA DIP CS ADVAN TUS ketones -advantus NEGATI VE mg/dL negati ve Not Available [facility] [address], [place], [address], 08/03/2021 11:48:36 08/03/19 22 08/03/2021 UA DIP CS ADVAN TUS sp. gravity -advantus 1.010 1.010- 1.025 Not Available [facility] [address] [place] [address] [address], [place], [address], 08/03/2021 11:48:36 08/03/19 22 08/03/2021 UA DIP CS ADVAN TUS pH -advantus 5.5 5.0-8. 0 Not Available [facility] [address], [place], [address], 08/03/2021 11:48:36 08/03/19 22 08/03/2021 UA DIP CS ADVAN TUS protein -advantus NEGATI VE mg/dL negati ve Not Available [facility] [address] [place] [address] [address], [place], [address], 08/03/2021 11:48:36 08/03/19 22 08/03/2021 UA DIP CS ADVAN TUS urobilinogen -advantus 0.2 normal Not Available [facility] [address] [place] [address] [address], [place], [address], 08/03/2021 11:48:36 08/03/19 22 08/03/2021 UA DIP CS ADVAN TUS nitrites -advantus NEGATI VE negati ve Not Available [facility] [address] [place] [address] [address], [place], [address], 08/03/2021 11:48:36 08/03/19 22 08/03/2021 UA DIP CS ADVAN TUS blood -advantus SMALL negati ve abnormal Not Available [facility] [address] [place] [address] [address], [place], [address], 08/03/2021 11:48:36 08/03/19 22 08/03/2021 UA DIP CS ADVAN TUS leukocytes -advantus TRACE negati ve abnormal Not Available [facility] [address] [place] [address] [address], [place], [address], 08/03/2021 11:48:36 08/03/19 22 08/03/2021 UA DIP CS ADVAN TUS performed by Geena Ingram Not Available [facility] [address] [place] [address] [address], [place], [address], 08/03/2021 11:48:36 08/03/19 22 08/03/2021 UA DIP CS ADVAN TUS total urine volume (mL) 20 /mL Not Available [facility] [address] [place] [address] [address], [place], [address], 08/03/2021 11:48:36 08/03/19 22 08/03/2021 UA MICRO SCOPI C U-WBC 0 - 2 [hpf] 0 - 2 Not Available [facility] [address] [place] [address] [address], [place], [address], 08/03/2021 11:48:38 08/03/19 22 08/03/2021 UA MICRO SCOPI C U-RBC 0 - 2 [hpf] 0 - 2 Not Available [facility] [address], [place], [address], 08/03/2021 11:48:38 08/03/19 22 08/03/2021 UA MICRO SCOPI C bacteria Small [hpf] negati ve abnormal Not Available [facility] [address] [place] [address] [address], [place], [address], 08/03/2021 11:48:38 08/03/19 22 08/03/2021 UA MICRO SCOPI C squamous epi Small /lpf negati ve,sma ll Not Available [facility] [address] [place] [address] [address], [place], [address], 08/03/2021 11:48:38 09/15/19 22 09/14/2021 UA DIP CS ADVAN TUS color -advantus YELLOW yellow Not Available [facility] [address] [place] [address] [address], [place], [address], 09/14/2021 10:41:46 09/15/19 22 09/14/2021 UA DIP CS ADVAN TUS appearance -advantus CLEAR clear Not Available [facility] [address] [place] [address] [address], [place], [address], 09/14/2021 10:41:46 09/15/19 22 09/14/2021 UA DIP CS ADVAN TUS glucose -advantus NEGATI VE mg/dL negati ve Not Available [facility] [address] [place] [address] [address], [place], [address], 09/14/2021 10:41:46 09/15/19 22 09/14/2021 UA DIP CS ADVAN TUS bilirubin -advantus NEGATI VE negati ve Not Available [facility] [address] [place] [address] [address], [place], [address], 09/14/2021 10:41:46 09/15/19 22 09/14/2021 UA DIP CS ADVAN TUS ketones -advantus NEGATI VE mg/dL negati ve Not Available [facility] [address], [place], [address], 09/14/2021 10:41:46 09/15/19 22 09/14/2021 UA DIP CS ADVAN TUS sp. gravity -advantus 1.010 1.010- 1.025 Not Available [facility] [address], [place], [address], 09/14/2021 10:41:46 09/15/19 22 09/14/2021 UA DIP CS ADVAN TUS pH -advantus 6.0 5.0-8. 0 Not Available [facility] [address] [place] [address] [address], [place], [address], 09/14/2021 10:41:46 09/15/19 22 09/14/2021 UA DIP CS ADVAN TUS protein -advantus NEGATI VE mg/dL negati ve Not Available [facility] [address] [place] [address] [address], [place], [address], 09/14/2021 10:41:46 09/15/19 22 09/14/2021 UA DIP CS ADVAN TUS urobilinogen -advantus 0.2 normal Not Available [facility] [address], [place], [address], 09/14/2021 10:41:46 09/15/19 22 09/14/2021 UA DIP CS ADVAN TUS nitrites -advantus NEGATI VE negati ve Not Available [facility] [address] [place] [address] [address], [place], [address], 09/14/2021 10:41:46 09/15/19 22 09/14/2021 UA DIP CS ADVAN TUS blood -advantus SMALL negati ve abnormal Not Available [facility] [address], [place], [address], 09/14/2021 10:41:46 09/15/19 22 09/14/2021 UA DIP CS ADVAN TUS leukocytes -advantus NEGATI VE negati ve Not Available [facility] [address], [place], [address], 09/14/2021 10:41:46 09/15/19 22 09/14/2021 UA DIP CS ADVAN TUS performed by Bibi Ruiz Not Available [facility] [address], [place], [address], 09/14/2021 10:41:46 09/15/19 22 09/14/2021 UA DIP CS ADVAN TUS total urine volume (mL) 20cc /mL Not Available [facility] [address] [place] [address] [address], [place], [address], 09/14/2021 10:41:46 09/15/19 22 09/14/2021 UA MICRO SCOPI C U-WBC 0 - 2 [hpf] 0 - 2 Not Available [facility] [address], [place], [address], 09/14/2021 10:41:47 09/15/19 22 09/14/2021 UA MICRO SCOPI C U-RBC 0 - 2 [hpf] 0 - 2 Not Available [facility] [address], [place], [address], 09/14/2021 10:41:47 09/15/19 22 09/14/2021 UA MICRO SCOPI C bacteria Small [hpf] negati ve abnormal Not Available [facility] [address], [place], [address], 09/14/2021 10:41:47 09/15/19 22 09/14/2021 UA MICRO SCOPI C squamous epi Small /lpf negati ve,sma ll Not Available [facility] [address], [place], [address], 09/14/2021 10:41:47 04/02/20 20 04/01/2020 XR, abdom en No observ ation record ed. [facility] [address] [place], [address], 04/02/2020 11:32:57 Result Notes None recorded. Problems Name Status Onset Date Resolution Date Notes Provider Name and Address Organization Details Recorded Time Chronic cystitis Active 2018 N30.20 : Chronic cystitis Not Available [facility] 0 23:40:26 Overactive bladder Active 2018 N32.81 : Bladder muscle dysfunction - overactive Not Available [facility] 0 23:40:26 Benign neoplastic disease Active 2019 Daphne felix [facility] 0 09:58:09 Tear film insufficiency Active 2019 Daphne felix [facility] 0 09:58:21 [facility]astroesophageal [facility]28 Hyperlipidemia Active 2019 Daphne felix [facility] 0 09:58:36 Heart disease Active 2022 Radhika felix [facility] 3 11:27:33 Problem Notes None recorded. Procedures Surgical History Date Name Laterality Status Provider Name and Address Organization Details Recorded Time 04/28/20 23 Sacral neuromodulation w/o reprogramming completed ELMA Blanco [address], [place], [address], [facility] 04/28/2023 11:57:28 04/28/20 23 Bladder Scan completed Radhika felix [facility] 04/28/2023 11:36:21 12/07/19 23 Sacral neuromodulation w/o reprogramming completed Demetri felix [facility] 12/06/2022 11:08:45 10/07/20 22 Sacral Stimulator Reprogramming completed Demetri Bosch null, [facility] 04/09/2022 12:49:34 09/15/19 22 Bladder Scan completed Merry Ocampo null, [facility] 09/14/2021 10:25:15 09/15/19 22 Sacral neuromodulation w/o reprogramming completed Demetri felix, [facility] 09/14/2021 10:15:12 08/03/19 22 Past Data Reviewed completed Charlotte Smith MD [address] [place] [address],[address], [place], [address], [facility] 08/03/2021 08:29:52 08/03/19 22 [facility] 11:50:03 11/27/19 21 Sacral Stimulator Reprogramming completed Demetri felix, [facility] 11/27/2020 12:44:01 09/17/19 20 Implant neuroelectrodes completed Not Available [facility] 12/13/2019 18:11:39 11/29/19 19 Insert bladder catheter completed Not Available [facility] 12/13/2019 18:11:39 11/14/19 15 Colonoscopy completed Lucinda felix, [facility] 11/11/2020 11:57:08 11/29/19 09 Total hip arthroplasty completed Not Available [facility] 12/13/2019 18:11:39 11/29/19 00 Unlisted procedure breast completed Not Available [facility] 12/13/2019 18:11:39 Appendectomy add-on completed Not Available [facility] 12/13/2019 18:11:39 Imaging Results Imaging Date Name Status LastModified by Organiz ation Details LastModified Time 04/01/2020 XR, abdomen completed [facility] [address] [facility] [place], [address], 04/02/2020 11:32:57 Procedure Notes None recorded. Medical Equipment None Reported. Allergies Allergen ID Allergen Name Allergen Category Reaction Reaction Severity Criticality Documentation Date Start Date Code Code System Note Provider Name and Address Organization Details Recorded Time 19861108 Nitroimid azole (substanc e) medicatio n Not available Not available Not available 12/12/2019 85456 5001 SNOMED Not Available [facility] 0 23:50:45 080669 sulindac medicatio n Not available Not available Not available 12/12/2019 50836 RxNorm Not Available [facility] 0 23:50:45 276157 Medicinal product containin g penicilli n and acting as antibacte rial agent (product) medicatio n itching Not available Not available 12/12/2019 62316 05 SNOMED Not Available [facility] 0 23:50:45 535185 atorvasta tin medicatio n Not available Not available Not available 12/12/2019 17516 RxNorm Not Available [facility] 0 23:50:45 688724 tetracycl ine medicatio n Not available Not available Not available 12/12/2019 63276 RxNorm Not Available [facility] 0 23:50:45 826207 alendrona te sodium medicatio n Not available Not available Not available 12/12/2019 02762 2 RxNorm Not Available [facility] 0 23:50:45 093979 amoxicill in medicatio n Not available Not available Not available 12/12/2019 723 RxNorm Not Available [facility] 0 23:50:45 102895 oxybutyni n chloride Not available dizziness Not available Not available 12/12/2019 37701 RxNorm fatig ue Not Available [facility] 0 23:50:45 993343 aspirin medicatio n Not available Not available Not available 12/12/2019 1191 RxNorm Not Available [facility] 0 23:50:46 818061 losartan Not available Not available Not available Not available 12/12/2019 13024 RxNorm Not Available [facility] 0 23:50:46 789832 estrogens , conjugate d (ASSISTED) medicatio n Not available Not available Not available 12/12/2019 4099 RxNorm Not Available [facility] 0 23:50:46 720479 ciproflox acin medicatio n Not available Not available Not available 12/12/2019 2551 RxNorm Not Available [facility] 0 23:50:46 173410 hydrochlo rothiazid e medicatio n Not available Not available Not available 12/12/2019 5487 RxNorm Not Available [facility] 0 23:50:46 712671 metoprolo l Not available Not available Not available Not available 12/12/2019 6918 RxNorm Not Available [facility] 0 23:50:46 472356 naproxen medicatio n Not available Not available Not available 12/12/2019 7258 RxNorm Not Available [facility] 0 23:50:46 050234 clindamyc in Not available Not available Not available Not available 12/12/2019 2582 RxNorm Not Available [facility] 0 23:50:46 810579 Substance with sulfonami de structure and antibacte rial mechanism of action (substanc e) medicatio n Not available Not available Not available 11/11/2020 57469 8003 SNOMED [facility] 11:56:30 168186 Myrbetriq medicatio n swelling Not available Not available 10/05/2021 69682 92 RxNorm [facility] 13:18:14 594908 Sambucus Elderberr y Immune medicatio n Not available Not available Not available 04/09/2022 Demetri Bosch [facility] 2 12:14:11 Medications Name [...] Updated DateTime 04/09/2022 154.94 cm 27.8 kg/m2 85990.08 g Demetri Bosch [facility] 04/09/2022 12:13:52 Date Recorded Body height Body mass index (BMI) Body weight Provider Name and Address Organization Details Last Updated DateTime 12/06/2022 154.94 cm 25.5 kg/m2 51554.97 g Demetri Bosch [facility] 12/06/2022 10:41:56 Date Recorded Body height Body mass index (BMI) Body weight Provider Name and Address Organization Details Last Updated DateTime 04/15/2020 157.48 cm 26.3 kg/m2 82957.3 g Daphne Montague [facility] 04/15/2020 10:05:09 Date Recorded Body height Body mass index (BMI) Body weight Provider Name and Address Organization Details Last Updated DateTime 04/28/2023 154.94 cm 25.5 kg/m2 16789.97 g Radhika Mathis [facility] 04/28/2023 11:25:35 Date Recorded Body height Body mass index (BMI) Body weight Provider Name and Address Organization Details Last Updated DateTime 05/13/2020 157.48 cm 26.3 kg/m2 87474.3 g Daphne Ramirezrdle [facility] 05/13/2020 10:15:26 Date Recorded Body height Body mass index (BMI) Body weight Provider Name and Address Organization Details Last Updated DateTime 11/11/2020 157.48 cm 26.3 kg/m2 61993.3 g [facility] 11/11/2020 11:56:20 Date Recorded Body height Body mass index (BMI) Body weight Provider Name and Address Organization Details Last Updated DateTime 11/26/2020 158.75 cm 27.2 kg/m2 39740.45 g Demetri Bosch [facility] 11/26/2020 10:47:36 Date Recorded Body height Body mass index (BMI) Body weight Provider Name and Address Organization Details Last Updated DateTime 08/03/2021 158.75 cm 27.2 kg/m2 01293.45 g Usha Corado [facility] 08/03/2021 11:35:42 Date Recorded Body height Body mass index (BMI) Body weight Provider Name and Address Organization Details Last Updated DateTime 09/14/2021 158.75 cm 26.5 kg/m2 77280.08 g Demetri Bosch [facility] 09/14/2021 09:54:39 Date Recorded Body height Body mass index (BMI) Body weight Provider Name and Address Organization Details Last Updated DateTime 09/14/2021 158.75 cm 26.5 kg/m2 35915.08 g Merry Ocampo [facility] 09/14/2021 10:08:57 Date Recorded Body height Body mass index (BMI) Body weight Provider Name and Address Organization Details Last Updated DateTime 11/12/2021 154.94 cm 27.8 kg/m2 71503.08 g Merry Ocampo [facility] 11/12/2021 11:32:20 Social History Question Answer Notes LastModified by Organizat ion Details LastModified Time Tobacco Smoking Status Never Smoker Not Available [facility] 12/13/2019 02:00:45 What Is Your Level Of Alcohol Consumption? None Information not available 09/14/2021 What Is Your Level Of Caffeine Consumption? Heavy Information not available 09/14/2021 Are You Currently Employed? No Information not available 09/14/2021 Race White [email or web address] Information n ot available 12/13/2019 Ethnicity Not /Lat vane Information not available 09/14/2021 Preferred Language Central African Information not available 09/14/2021 Recreational Drug Use No Information not available 09/14/2021 Could You Be ? No Information not available 09/14/2021 Marital Status [email or web address] Informati on not available 12/13/2019 What Was The Date Of Your Most Recent Tobacco Screening? 12/06/2022 [email or web address] Information not available 12/06/2022 What Is Your [...] GERD/Acid Reflux Y Sexually Transmitted Infection N Diabetes N Bleeding Disorder Y Cancer N High Cholesterol N Heart Disease Y Gynecological HistoryNo gynecological history recorded. Obstetrics History GPAL:G 0 P 0 0 0 0 Immunizations Vaccine Type Date Status Provider Name and Address Organization Details Recorded Time Pneumococcal conjugate PCV 13 07/04/2017 completed STEPHEN Germain [facility] 04/28/2023 11:25:40 Past Encounters Encounter ID Performer Location Encounter Start Date Encounter Closed Date Diagnosis/Indication Diagnosis SNOMED-CT Code 38739 Charlotte Smith MD [facility] [address] [place] [address] 04/15/2020 10:02:52 04/25/2020 12:54:57 Overactive bladder [id number] Urge incon tinence of urine [id number] Charlotte Smith MD [facility] [address] [place] [address] 05/13/2020 10:14:48 05/13/2020 14:22:18 Overactive bladder [id number] Urge incon tinence of urine [id number] History of urinary tract infection [id number] Charlotte Smith MD [place] [address] [place] [address] 11/11/2020 11:46:55 11/11/2020 13:40:18 Overactive bladder [id number] Urge incon tinence of urine [id number] Demetri [facility] [address] [place] [address],[facility] e [address] [place] [address] 11/26/2020 10:15:12 12/02/2020 15:37:48 Overactive bladder [id number] Nocturia [id number] MD Naima [facility] [address] [place] [address] [place] [address] 08/03/2021 11:31:50 08/03/2021 12:09:22 Overactive bladder [id number] Urge incon tinence of urine [id number] Nocturia [id number] ELMA Blanco [facility] [address] [place] [address],[facility] e [address] [place] [address] 09/14/2021 10:06:36 09/14/2021 14:16:12 Overactive bladder [id number] Urge incon tinence of urine [id number] Nocturia [id number] Demetri Bosch [facility] [address] [place] [address],it e [address] [place] [address] 09/14/2021 09:30:06 09/14/2021 14:31:59 Overactive bladder [id number] ELMA Blanco [facility] [address] [place] [address],[address] [address] 11/12/2021 11:29:59 11/12/2021 12:37:25 Overactive bladder [id number] Urge incon tinence of urine [id number] Nocturia [id number] Demetri [facility] [address] [place] [address],[address] [address] 04/09/2022 11:43:46 04/09/2022 13:38:20 Overactive bladder [id number] Demetri [facility] [address] [place] [address],[address] [address] 12/06/2022 10:28:13 12/06/2022 11:24:29 Overactive bladder [id number] ELMA Blanco [facility] [address] [place] [address] 04/28/2023 11:22:38 04/28/2023 12:04:03 Overactive bladder [id number] Urge incon tinence of urine [id number] Nocturia [id number] Health Concerns Section Related Observation LastModified by Organization Detai ls LastModified Time None Recorded Concern Status LastModified by Organization Details LastModified Time None Recorded Advance Directives Directive None Recorded Payers Encounter Date Sequence Insurance Name Policy Number Policy Betancourt Covered Member ID Betancourt Member ID Guarantor Name 04/28/2023 1 [place] [employer] Patsy Aramis Jerel [id number] Patsy Aramis Jerel 04/28/2023 2 [facility] [id number] Patsy Aramis Jerel [id number] Patsy Aramis Jerel 12/06/2022 1 [place] [employer] Patsy Aramis Jerel [id number] Patsy Aramis Jerel 12/06/2022 2 [facility] [id number] Patsy Aramis Jerel [id number] Patsy A Wood 04/09/2022 1 [place] [employer] Patsy A Wood [id number] Patsy A Wood 04/09/2022 2 [place] [id number] Patsy A Wood [id number] Patsy A Wood 11/12/2021 1 [place] [employer] Patsy A Wood [id number] Patsy A Wood 11/12/2021 2 [place] [id number] Patsy A Wood [id number] Patsy A Wood 09/14/2021 1 [place] [employer] Patsy A Wood [id number] Patsy A Wood 09/14/2021 2 [employer] [id number] Patsy A Wood [id number] Patsy A Wood 09/14/2021 1 [place] [employer] Patsy A Wood [id number] Patsy A Wood 09/14/2021 2 [place] [id number] Patsy A Wood [id number] Patsy A Wood 08/03/2021 1 [place] [employer] Patsy A Wood [id number] Patsy A Wood 08/03/2021 2 [employer] [id number] Patsy A Wood [id number] Patsy A Wood 11/26/2020 1 [place] [employer] Patsy A Wood [id number] Patsy A Wood 11/26/2020 2 [employer] [id number] Patsy A Wood [id number] Patsy A Wood 11/11/2020 1 [place] [employer] Patsy A Wood [id number] Patsy A Wood 11/11/2020 2 [employer] [id number] Patsy A Wood [id number] Patsy A Wood 05/13/2020 1 [place] [employer] Patsy A Wood [id number] Patsy A Wood 05/13/2020 2 [employer] [id number] Patsy A Wood [id number] Patsy A Wood 04/15/2020 1 [place] [employer] Patsy Beltrán [id number] Patsy Beltrán 04/15/2020 2 [facility] [id number] Patsy Beltrán [id number] Patsy Beltrán Notes Date Note Type Note Provider Name and Address Organization Details Recorded Time 04/15/2020 text/html HPI Notes: sp interstim lead and IPG 9-29 doing well on program 3 vagianl was concerned as it was timing out Charlotte Smith MD [address] [place] [address],[address], [address], [facility] 04/15/2020 10:12:37 05/13/2020 text/html HPI Notes: SP Interstim lead and IPG SureScan 9-29 for OAB/UUI sx. had successful PNE prior, waited for implant as she had back fx. asks about renal cyst, proteinceauosu on mri asks about clitorial irritation, hx of LS using estrogren and clobetasol was on program 3more leaks 2-3 days ago, changed to program 4 vagianl. Charlotte Smith MD [address] [place] [address],[address], [place], [address], [facility] 05/13/2020 10:32:36 11/11/2020 text/html HPI Notes: [...] be almost every hour Charlotte Smith MD [address] [place] [address],[address], [place], [address], [facility] 11/11/2020 12:16:47 08/03/2021 text/html HPI Notes: [...] on Lasix as needed Charlotte Smith MD [address] [place] [address],[address], [address], [facility] 08/03/2021 11:57:51 09/14/2021 text/html HPI Notes: [...] to be almost every hour. ELMA Blanco [address] [place] [address],[address], [place], [address], [facility] 09/14/2021 10:49:41 11/12/2021 text/html HPI Notes: [...] with sjorgrens. This visit was conducted using [employer] phone technology. Prior to conducting our health visit, the patient and I discussed the risks, benefits and alternatives to phone visits. The patient elected to proceed with the phone visit. ELMA Blanco [address] [place] [address],[address], [place], [address], [facility] 11/12/2021 11:50:24 12/06/2022 text/html HPI Notes: [...] changed Rate chaanged Resolution changed Demetri felix, [facility] 12/06/2022 11:08:58 04/28/2023 text/html HPI Notes: 04/28: Patient presents to follow up for overactive bladder (OAB). InterStim implant 04/01/[address] Smith. Last saw Demetri 12/06/22. Feels comfortable changing programs. Has not changed since she saw Demteri. Takes Gemtesa prn. Usually will take two [...] to be almost every hour. ELMA Blanco [address], [place], [address], [place] [facility] 04/28/2023 11:58:40 OBGyn Episode No OBEpisode recorded.
--- OUTSIDE RECORDS SUMMARY | 2023-11-19 13:25 | XMS_ITS | Continuity of Care Document ---
Author Name Unknown Organization [facility] Address [address] [place] [address] Phone Care Team Providers Care Ride Assembly Supervisor Name Role Phone Adam AMADOR, Helder Unavailable [...] Antibodies Dna Antibody, Single Strand Dna Antibody, [place] Nuclear Antigen Antibodies Rheumatoid Factor, IGM Rheumatoid Factor, IGG, IGA Advance Directives Directive Yes / No Effective Date File Name No Information Encounters Encounter Description Practice Location Reason(s) For Visit Diagnoses Date Provider Providers Copied on Encounter [facility], [address], [place], [address], [place] tel:[phone] [facility], No Information Oct- 4 Adam Pendleton. [address], [address], [place], [address], [place]. tel:[phone] Referring Provider: Helder Jain, [address], [place], [address]. tel:[phone] Office/Outpa tient Visit, Est [facility], [address], [place], [address], [place] tel:[phone] [facility], Sjogren syndrome w/ inflammatory arthritisPain in left foot 0 4 Lebedoff Helder. [address], [address], [place], [address], [place]. tel:[phone] Referring Provider: Helder Jain, [address], [place], [address]. tel:[phone] Office/Outpa tient Visit, Est [facility], [address], [place], [address], [place] tel:[phone] [facility], Sjogren syndrome w/ inflammatory arthritisPrim mauri osteoarthriti s, right hand 3 Lebedoff Helder. [address], [address], [place], [address], [place]. tel:[phone] Referring Provider: Helder Jain, [address], [place], [address]. tel:[phone] Office/Outpa tient Visit, Est [facility], [address], [place], [address], [place] tel:[phone] [facility], Sicca syndrome, unspecifiedWe akness 0 3 Lebedoff Helder. [address], [place], [address], [place]. tel:[phone] Referring Provider: Helder Lebedoff G, [address], [place], [address]. tel:[phone] Office/Outpa tient Visit, Est [facility], [address], [place], [address], [place] tel:[phone] [facility], Sicca syndrome, unspecifiedPa in in left shoulder Apr- 2 Vicentabedregulo Pendleton. [address], [address], [place], [address], [place]. tel:[phone] Referring Provider: Helder Jain, [address], [place], [address]. tel:[phone] Office/Outpa tient Visit, Est [facility], [address], [place], [address], [place] tel:[phone] [facility], Sicca syndrome, unspecifiedDy spnea Oct- 2 Vicentabedregulo Pendleton. [address], [address], [place], [address], [place]. tel:[phone] Referring Provider: Helder Jain, [address], [place], [address]. tel:[phone] Office/Outpa tient Visit, Est [facility], [address], [place], [address], [place] tel:[phone] [facility], Sicca syndrome, unspecifiedOt her intermodal dispatcher (current) drug therapyPrimar y OA of right handDyspnea Apr- 1 Blasoff Helder. [address], [address], [place], [address], [place]. tel:[phone] Referring Provider: Helder Jain, [address], [place], [address]. tel:[phone] Office/Outpa tient Visit, New [facility], [address], [place], [address], [place] tel:[phone] [facility], Sicca syndrome, unspecifiedPa in in rt ankleOther prison (current) drug therapy 1 Adam Pendleton. [address], [address], [place], [address], [place]. tel:[phone] Referring Provider: Helder Medina G, [address], [address]. tel:[phone] [facility], [address], [place], [address], [place] tel:[phone] [facility] No Information 1 Mo Sullivan. [facility] [address] [place] [address] [address], [place], [address], [place]. tel:[phone] Family History Family Member Type Diagnosis Age At Onset No Information Immunizations Vaccine Date Status Comments COVID-19 Moderna administered Source: Ot er Provider COVID-19 Pfizer administered Note: 1 ; Source: Other Provider Payers Payer name Insurance type Covered libertarian ID Authoriza tion(s) [employer] Adv [id number] Social History Type Description Quantity Date Captured [...] Order Fo ot X-ray; Complete (3+ views) (38988), Sent on: Sent History Of Present Illness [...]
== END 2023-11-19 13:29 | disposition home or self-care (01) ==
PROVIDERS: Emergency Provider Emergency Medicine Emergency Medical Services; PCP Physician Assistant Medical
DX: R19.7 Diarrhea, unspecified (principal)
CPT/HCPCS: 99283; 99284

== ENCOUNTER 2023-11-25 10:45 | Outpatient (CLI) | payer OTHER, SELFPAY ==
--- OUTSIDE RECORDS SUMMARY | 2023-11-25 10:47 | XMS_ITS | Clinical Summary ---
Author Organization [facility] Address [place], [place] [address] Care Team Providers Care Web Development Consultant Name Role Phone Kd Restrepo MD Unavailable [phone] Cody Veliz MD Unavailable [phone] Maritza Rendon DO Primary Care Provide r [...] 1.25 mg (2.5 mg x 0.5) every Fri; 2.5 mg (2.5 mg x 1) all [...] 12 hours. 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 current use of systemic steroids 09/27 Prediabetes [...] Date Anticoagulation monitoring, INR range 2-3 [Z79.01]; [place] Target 2.5-3.0 12/06/2016 1 Pessary maintenance 02/25/2016 09/28/19 20 Anticoagulation monitoring, goal range 2.0-2.6 09/19/2013 01/09/2018 Abnormal stress test 11/17/2010 011 Routine general medical exam ination at a health care facility 07/12/2009 09/28/2019 Overview: Normal CT angiogram 11/2010 Hip pain 05/06/2008 07/09/2009 Onychomycosis 05/06/2008 08/27/2008 HX OF VENOUS THROMBOSIS AND EMBOLISM 11/09/2006 12/06/2012 Bilateral pulmonary embolism 10/11/2006 11/18/2017 AFTERCARE, LONG-TERM USE, MI DICATIONS NEC-PLAQUENIL 10/22/2003 Encounters Date Type Department Care Team Description 11/23/2023 9:30 AM CDT Office Visit [facility] [address] [place] [address] Charlotte Anderson MD Ankle Pain/problem (L medial malleolar ulcer) 11/23/2023 6:47 AM CDT - 11/23/2023 11:59 PM CDT Hospital Encounter [facility] [address] [place] [address] Charlotte Anderson MD PAD (peripheral artery disease) (HC) 11/22/2023 Travel 09/29/2023 9:00 AM CDT Orders Only [facility] [address] [place] [address] Lab, Farm Outside Order (Kd WILLS 07/07/2023) 09/29/2023 Travel 08/29/2023 10:00 AM MANAGING BROKER Office Visit [facility] [address] [place] [address] Tomas Page, OD Follow Up (6 Month AMD Ck ) 08/29/2023 Travel from Last 3 Months Immunizations Name Administration Dates Next Due AMB INFLUENZA IIV3 (AGE 65+ YRS) PF (Flu Clinic Only) 03/23/2017 AMB Influenza, IIV3 (Age >=3 years) Preserve Free (Flu Clinic Only) 04/08/2009 AMB Influenza, IIV3 (Age >=3 years)(Flu Clinic Only) 04/06/2013,04/16/2011,04/24/2008 COVID-19 vaccine ([employer] 30mcg/0.3mL) PF, MDV 09/02/2020,08/12/2020 Influenza A (H1N1), [...] Sign Reading Time Taken Comments Blood Pressure 188/73 11/23/2023 8:50 AM CDT Pulse 70 11/23/2023 8:48 AM CDT Temperature 36.2 ??C (97.1 ??F) 04/23/2022 8:11 AM CD T Respiratory Rate 18 03/18/2023 2:24 PM CDT Oxygen Saturation 96% 11/23/2023 8:44 AM CDT Inhaled Oxygen Concentration - - Weight 61.7 kg (136 lb) 11/23/2023 8:44 AM CDT Height 149.9 cm (4' 11) 11/23/2023 8:44 AM CDT Body Mass Index 27.47 11/23/2023 8:44 AM CDT Plan of Treatment Upcoming Encounters Date Type Department Care Team (Late st Contact Info) Description 12/05/2023 9:15 AM CDT Appointment [facility] [address] [place] [address] 12/05/2023 11:00 AM CDT Office Visit [facility] [address] [place] [phone] Charlotte Anderson MD [address] [place] [address] 02/28/2024 10:00 AM CDT Office Visit [facility] [address] [place] [address] [place] [address] [place], [place] [phone] Health Maintenance Due Date Last Done Comments Depression screening for age 12+ 06/18/2021 06/18/2020, 06/18/2020, 06/18/2020, Additional history exists Medicare Wellness for age 65+ 06/19/2021, 06/18/2019, 06/28/2018, Additional history exists Influenza for age 65+ 03/04/2024 03/20/2020 , 04/03/2019, 03/02/2018, Additional history exists BMI (ht and wt on same day) for age 18+ 11/22/2024 11/23/2023, 03/18/2023, 04/23/2022, Additional history exists Tetanus booster 01/28/2030 01/29/2020, 0508/2010, 02/02/2004, Additional history exists Tdap Completed 11/02/2010 Pneumococcal series for age 65+ Completed 07/19/2014, 10/15/2005, 04/11/1997 Zoster (shingles) series for age 50+ Completed 09/27/2018, 07/06/2018 DEXA/DXA scan for age 65+ Completed 2018, 01/13/2016, 12/18/2010 COVID-19 vaccine series Completed 06/13/20, 04/30/2022, 04/14/2021, Additional history exists Medical Devices Implanted Type Area Hopper Operator Device Identifier Shelf Expiration Date Model / Serial / Lot Lead Kit 4.32mm Spacing 28cm Length Interstim - [id number] Implanted:Qty: 1 on 04/01/2020 by Charlotte Smith MD at [facility] N/A: Sacrum [employer] Pain Therapy 09/30/2021 [id number] / / [id number] Stimulator 7.7mm 14cc Interstim Ii - [id number] Implanted:Qty: 1 on 04/01/2020 by Charlotte Smith MD at [facility] N/A: Sacrum [employer] Pain Therapy 03/31/2021 [id number] / [id number] / Description:PIN [id number] Procedures Procedure Name Priority Date/Time Associated Diagnosis Comments US ANKLE BRACHIAL INDEX BILATERAL Routine 11/23/2023 8:37 AM CDT PAD (peripheral artery disease) (HC) US ARTERIAL LOWER EXTREMITY BILATERAL Routine 11/23/2023 8:37 AM CDT PAD (peripheral artery disease) (HC) T4,FREE Routine 09/29/2023 9:04 AM CDT Myxedema heart disease TSH Routine 09/29/2023 9:04 AM CDT Myxedema heart disease XR DXA BONE DENSITY 2 SITES AXIAL Routine 07/02/2019 11:48 AM MANAGING BROKER Osteopenia of multiple sites from Last 3 Months or Most Recently Relevant to Health Maintenance Results * US ANKLE BRACHIAL INDEX BILATERAL (11/23/2023 8:37 AM CDT) Anatomical Region Laterality Modality ANKLES, ANKLE L, ANKLE R Ultraso und 11/23/2023 7:17 AM CDT Narrative 11/23/2023 12:17 PM CDT VASCULAR ULTRASOUND REPORT RODERICK HEATON Accession#: ?? [id number] : ?1940 ??Study Date: ?? 11/23/2023 7:17:22 AM Age: ?83 years ?? Tech: ? KBN/CRK Gender: F ?Referring MD: CHARLOTTE ANDERSON Site: [facility] Vascular [facility] Study performed: ?Lower extremity resting MINOR, (bilateral). Indication for study: Non-healing wound in LE Study Quality: ?Excellent TECHNIQUE: Lower/upper extremity arteries were examined per exam protocol by duplex ultrasound, color-flow and spectral Doppler. Peak systolic velocities (PSV), Doppler waveform quality, velocity ratios and vessel size in cm, were documented at protocol specific sites. Physiologic data including segmental pressures, ankle/brachial index (MINOR), digit PPG recordings, laser Doppler flowmetry, transcutaneous oximetry, and digit temperatures were documented at sites per exam protocol and test requirements. IMPRESSION: 1. Resting ankle-brachial index is normal on the right at 1.24 and is mildly reduced on the left at 0.76. 2. Toe-brachial index is normal on the right at 0.63 and toe-brachial index is abnormal on the left at 0.23. 3. Left metatarsal pulse volume recording is dampened relative to the right. COMPARISON: No prior study available for comparison. FINDINGS: Right toe/brachial index indicates normal range. Abnormal toe brachial index on the left. Pressures +-----+ +--------+ +-----+ ? RIGHT (mmHg) ? LEFT (mmHg) ? +-----+ +--------+ +-----+ Index ?188 ? Brachial ?194 ? Index +-----+ +--------+ +-----+ 1.24 ?241 ?PASTOR ?107 ? 0.55 +-----+ +--------+ +-----+ 1.23 ?238 ?DPA ?147 ? 0.76 +-----+ +--------+ +-----+ 0.63 ?122 ? Digit 1 ?45 ? 0.23 +-----+ +--------+ +-----+ Wang Dela Cruz MD. Electronically signed on 11/23/2023 12:17:56 PM This study was performed and interpreted by a service accredited by the Intersocietal Accreditation Commission (IAC/Vascular), www.intersocietal.org/vascular Report generated by [employer]. ??Final ?? Procedure Note Wang Dela Cruz MD - 11/23/2023 VASCULAR ULTRASOUND REPORT RODERICK HEATON : 1940 Study Date: 11/23/2023 7:17:22 AM Age: 83 years Tech: ARISTIDES/JOHNNY Gender: F Referring MD: CHARLOTTE ANDERSON Site: [facility] Study performed: Lower extremity resting MINOR, (bilateral). Indication for study: Non-healing wound in LE Study Quality: Excellent TECHNIQUE: Lower/upper extremity arteries were examined per exam protocol by duplexultrasound, color-flow and spectral Doppler. Peak systolic velocities(PSV), Doppler waveform quality, velocity ratios and vessel size in cm,were documented at protocol specific sites. Physiologic data includingsegmental pressures, ankle/brachial index (MINOR), digit PPG recordings,laser Doppler flowmetry, transcutaneous oximetry, and digit temperatureswere documented at sites per exam protocol and test requirements. IMPRESSION: 1. Resting ankle-brachial index is normal on the right at 1.24 and ismildly reduced on the left at 0.76. 2. Toe-brachial index is normal on the right at 0.63 and toe-brachialindex is abnormal on the left at 0.23. 3. Left metatarsal pulse volume recording is dampened relative to theright. COMPARISON: No prior study available for comparison. FINDINGS: Right toe/brachial index indicates normal range. Abnormal toe brachial index on the left. Pressures +-----+ +--------+ +-----+ RIGHT (mmHg) LEFT (mmHg) +-----+ +--------+ +-----+ Index 188 Brachial 194 Index +-----+ +--------+ +-----+ 1.24 241 PASTOR 107 0.55 +-----+ +--------+ +-----+ 1.23 238 DPA 147 0.76 +-----+ +--------+ +-----+ 0.63 122 Digit 1 45 0.23 +-----+ +--------+ +-----+ Wang Dela Cruz MD. Electronically signed on 11/23/2023 12:17:56 PM This study was performed and interpreted by a service accredited by theIntersocietal Accreditation Commission (IAC/Vascular),www.[email or web address]/vascular Report generated by [employer]. Final Charlotte Anderson MD US * US ARTERIAL LOWER EXTREMITY BILATERAL (11/23/2023 8:37 AM CDT) Anatomical Region Laterality Modality LEGS, LEG L, LEG R Ultrasound 11/23/2023 7:26 AM CDT Narrative 11/23/2023 12:22 PM CDT VASCULAR ULTRASOUND REPORT RODERICK HEATON Accession#: ?? [id number] : ?1940 ??Study Date: ?? 11/23/2023 7:26:56 AM Age: ?83 years ?? Tech: ? KBN/CRK Gender: F ?Referring MD: CHARLOTTE ANDERSON Site: [facility] Vascular [facility] Study performed: ?Lower extremity duplex US, (bilateral). Indication for study: Non-healing wound in LE Study Quality: ?Excellent TECHNIQUE: Lower/upper extremity arteries were examined per exam protocol by duplex ultrasound, color-flow and spectral Doppler. Peak systolic velocities (PSV), Doppler waveform quality, velocity ratios and vessel size in cm, were documented at protocol specific sites. Physiologic data including segmental pressures, ankle/brachial index (MINOR), digit PPG recordings, laser Doppler flowmetry, transcutaneous oximetry, and digit temperatures were documented at sites per exam protocol and test requirements. IMPRESSION: 1. No evidence of inflow disease. 2. 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 Waveforms distal to the stenosis remain multiphasic. 3. Severe (75-99%) stenosis of the left proximal popliteal artery. Waveforms distal to the stenosis are severely dampened. 4. Retrograde flow in the right distal anterior tibial artery and dorsalis pedis artery. Retrograde flow in the left dorsalis pedis artery. COMPARISON: No prior study available for comparison. FINDINGS: +--------+ + +-----+ RIGHT ?? Velocity cm/s PRE ? Ratio ? Velocity cm/s ? Phasicity ? +--------+ + +-----+ EIA DST ? 104 ? +--------+ + +-----+ FORESTRY SUPERVISOR DST ? 111 ? +--------+ + +-----+ PFA ? 88 ? +--------+ + +-----+ SFA PRX ? 111 ? +--------+ + +-----+ SFA MID ? 66 ? +--------+ + +-----+ SFA DST ? 415 ? 64 ? 6.5 ?? +--------+ + +-----+ COLLIN PRX ? 101 ? +--------+ + +-----+ COLLIN DST ? 41 ? +--------+ + +-----+ PASTOR DST ? 80 ? +--------+ + +-----+ KAREN DST ? 38 ? +--------+ + +-----+ LAXMI DST -179 retro ? +--------+ + +-----+ DPA ?-34 retro ? +--------+ + +-----+ +--------+ + +-----+ LEFT ? Velocity cm/s PRE ? Ratio ? Velocity cm/s ? Phasicity ? +--------+ + +-----+ EIA DST ? 100 ? +--------+ + +-----+ FORESTRY SUPERVISOR DST ? 98 ? +--------+ + +-----+ PFA ? 73 ? +--------+ + +-----+ SFA PRX ? 100 ? +--------+ + +-----+ SFA MID ? 52 ? +--------+ + +-----+ SFA DST ? 44 ? +--------+ + +-----+ COLLIN PRX ? 674 ? 55 ? 12.3 +--------+ + +-----+ COLLIN DST ? 27 ? +--------+ + +-----+ PASTOR DST ? 11 ? +--------+ + +-----+ LAXMI DST ? 40 ? +--------+ + +-----+ DPA ?-19 retro ? +--------+ + +-----+ Criteria: Stenosis ?V. Ratio Mild ?<50% ?<2.0 Moderate ?? 50-74% ?> or = 2.0 Severe ? 75-99% ?> or = 4.0 Occluded ?100% ?? no detectable flow Wang Dela Cruz MD. Electronically signed on 11/23/2023 12:22:40 PM This study was performed and interpreted by a service accredited by the Intersocietal Accreditation Commission (IAC/Vascular), www.intersocietal.org/vascular Report generated by [employer]. ??Final ?? Procedure Note Wang Dela Cruz MD - 11/23/2023 VASCULAR ULTRASOUND REPORT RODERICK HEATON : 1940 Study Date: 11/23/2023 7:26:56 AM Age: 83 years Tech: ARISTIDES/JOHNNY Gender: F Referring MD: CHARLOTTE ANDERSON Site: [facility] Vascular [facility] Study performed: Lower extremity duplex US, (bilateral). Indication for study: Non-healing wound in LE Study Quality: Excellent TECHNIQUE: Lower/upper extremity arteries were examined per exam protocol by duplexultrasound, color-flow and spectral Doppler. Peak systolic velocities(PSV), Doppler waveform quality, velocity ratios and vessel size in cm,were documented at protocol specific sites. Physiologic data includingsegmental pressures, ankle/brachial index (MINOR), digit PPG recordings,laser Doppler flowmetry, transcutaneous oximetry, and digit temperatureswere documented at sites per exam protocol and test requirements. IMPRESSION: 1. No evidence of inflow disease. 2. Severe (75-99%) stenosis of the right distal superficial femoralartery. Waveforms distal to the stenosis remain multiphasic. 3. Severe (75-99%) stenosis of the left proximal popliteal artery.Waveforms distal to the stenosis are severely dampened. 4. Retrograde flow in the right distal anterior tibial artery anddorsalis pedis artery. Retrograde flow in the left dorsalis pedisartery. COMPARISON: No prior study available for comparison. FINDINGS: +--------+ + +-----+ RIGHT Velocity cm/s PRE Ratio Velocity cm/s Phasicity +--------+ + +-----+ EIA DST 104 +--------+ + +-----+ FORESTRY SUPERVISOR DST 111 +--------+ + +-----+ PFA 88 +--------+ + +-----+ SFA PRX 111 +--------+ + +-----+ SFA MID 66 +--------+ + +-----+ SFA DST 415 64 6.5 +--------+ + +-----+ COLLIN PRX 101 +--------+ + +-----+ COLLIN DST 41 +--------+ + +-----+ PASTOR DST 80 +--------+ + +-----+ KAREN DST 38 +--------+ + +-----+ LAXMI DST -179 retro +--------+ + +-----+ DPA -34 retro +--------+ + +-----+ +--------+ + +-----+ LEFT Velocity cm/s PRE Ratio Velocity cm/s Phasicity +--------+ + +-----+ EIA DST 100 +--------+ + +-----+ FORESTRY SUPERVISOR DST 98 +--------+ + +-----+ PFA 73 +--------+ + +-----+ SFA PRX 100 +--------+ + +-----+ SFA MID 52 +--------+ + +-----+ SFA DST 44 +--------+ + +-----+ COLLIN PRX 674 55 12.3 +--------+ + +-----+ COLLIN DST 27 +--------+ + +-----+ PASTOR DST 11 +--------+ + +-----+ LAXMI DST 40 +--------+ + +-----+ DPA -19 retro +--------+ + +-----+ Criteria: Stenosis V. Ratio Mild <50% <2.0 Moderate 50-74% > or = 2.0 Severe 75-99% > or = 4.0 Occluded 100% no detectable flow Wang Dela Cruz MD. Electronically signed on 11/23/2023 12:22:40 PM This study was performed and interpreted by a service accredited by theIntersocietal Accreditation Commission (IAC/Vascular),www.[email or web address]/vascular Report generated by [employer]. Final Charlotte Anderson MD US * TSH (09/29/2023 9:04 AM CDT) TSH 1.48 0.27 - 4.20 uIU/mL 09/29/2023 5:48 PM CDT [facility] Blood BLOOD SPECIMEN / Unknown Venipuncture / Unknown 09/29/2023 9:04 AM CDT 09/29/2023 9:04 AM CDT [facility] - 09/29/2023 5:48 PM CDT In Adults, TSH values between 5.00 and 10.00 uIU/ml do not necessarily indicate the presence of Hypothyroidism. Correlation with clinical findings such as presence of goiter and/or Thyroperoxidase (TPO) Antibody may be helpful. For more information please refer to SUZETTE 2004; 291: 228-238. Rakel Connor DO CHEMISTRY Performing Organization Address City/[facility]/ZIP Co de Phone Number [facility] [address] [place] [address], * (ABNORMAL) T4,FREE (09/29/2023 9:04 AM CDT) T4,FREE 1.78(H) 0.93 - 1.70 ng/dL 09/29/2023 5:48 PM CDT [facility] Blood BLOOD SPECIMEN / Unknown Venipuncture / Unknown 09/29/2023 9:04 AM CDT 09/29/2023 9:04 AM CDT Rakel Connor DO CHEMISTRY Performing Organization Address [facility] Co de Phone Number [facility] [address] [address], * (ABNORMAL) XR DXA BONE DENSITY 2 SITES AXIAL (07/02/2019 11:48 AM MANAGING BROKER) Anatomical Region Laterality Modality Spine, HIPS, HIPL, HIPR Other Narrative 07/06/2019 11:01 AM MANAGING BROKER Please see scanned document for results of this study. 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
--- OUTSIDE RECORDS SUMMARY | 2023-11-25 10:47 | XMS_ITS | Continuity of Care Document ---
Author Organization [facility] Address [address] [place] [address] Phone Care Team Providers Care Guest Services Name Role Phone Usha Dickinson Unavailable Unavailable [...] on Encounter [facility], [address], [place], [place], [id number], [place] tel:[phone] No Information [facility]. [facility], [address], [place], [place], [id number] , [place]. [phone] Office/Outpat ient Visit,Est, Mod [facility], [address], [place], [place], [id number], [place] tel:[phone] [facility] Other forms of scoliosis, thoracolumbar regionL2 wedge compression fracture, initial encounter for closed fractureSpondy lolisthesis, lumbar region 0 [facility]. [facility], [address], [place], [place], [id number] , [place]. tel:[phone] Referring Provider: Rakel Arvizu, [employer]P [employer] [facility] [address] [place], [address]. tel:[phone] Office/Outpat ient Visit,Est, Mod [facility], [address], [facility] [place], [id number], [place] tel:[phone] [facility] L2 wedge compression fracture, initial encounter for closed fractureOther forms of scoliosis, thoracolumbar regionSpondylo listhesis, lumbar region 0 Kwame Kerr. [facility], [address], [place], [place], [id number] , . tel:[phone] Referring Provider: Rakel Arvizu [employer] [address] [place], [address]. tel:[phone] Office/Outpat ient Visit,[facility], [facility], [address], [facility] [place], [id number], [place] tel:[phone] [facility] [place] L2 wedge compression fracture, initial encounter for closed fractureOther forms of scoliosis, thoracolumbar regionSpondylo listhesis, lumbar region 0 Kwame Kerr. [facility], [address], [place], [place], [id number] , [place]. tel:[phone] Referring Provider: Rakel Arvizu [employer] [address] [place], [address]. tel:[phone] Family History Family Member Type Diagnosis Age At Onset No Information Payers Payer name Insurance type Covered constitution party ID Authoralethaa tishannon(s) Medicare MB [id number] [facility] [address] [facility] [id number] Social History Type Description Quantity Date Captured [...]
--- OUTSIDE RECORDS SUMMARY | 2023-11-25 10:47 | XMS_ITS | Continuity of Care Document ---
Author Organization [facility] Address [address] [place] [address] Phone Care Team Providers Care Pharmacy Technician Instructor Name Role Phone Helder Medina MD Unavailable [...] times every day 5 MG - Active Tylenol [facility] 650 [...] 1 tablet - Active Procedures Procedure Date X-Ray Exam [...] Antibodies Dna Antibody, Single Strand Dna Antibody, [place] Nuclear Antigen Antibodies Rheumatoid Factor, IGM Rheumatoid Factor, IGG, IGA Advance Directives Directive Yes / No Effective Date File Name No Information Encounters Encounter Description Practice Location Reason(s) For Visit Diagnoses Date Provider Providers Copied on Encounter [facility], [address], [place], [address], [place] tel:[phone] [facility], No Information Apr-- 4 Adam Pendleton. [address], [place], [address], [place]. tel:[phone] Referring Provider: Helder Jain, [address], [place], [address]. tel:[phone] Office/Outpa tient Visit, Est [facility], [address], [place], [address], [place] tel:[phone] [facility], Sjogren syndrome w/ inflammatory arthritisPain in left foot Apr- 0 4 Lebedoff Helder. [address], [place], [address], [place]. tel:[phone] Referring Provider: Helder Jain, [address], [place], [address]. tel:[phone] Office/Outpa tient Visit, Est [facility], [address], [place], [address], [place] tel:[phone] [facility], Sjogren syndrome w/ inflammatory arthritisPrim mauri osteoarthriti s, right hand 3 Lebedoff Helder. [address], [place], [address], [place]. tel:[phone] Referring Provider: Helder Jain, [address], [place], [address]. tel:[phone] Office/Outpa tient Visit, Est [facility], [address], [place], [address], [place] tel:[phone] [facility], Sicca syndrome, unspecifiedWe akness November- 0 3 Lebedoff Helder. [address], [place], [address], [place]. tel:[phone] Referring Provider: Helder Jain, [address], [place], [address]. tel:[phone] Office/Outpa tient Visit, Est [facility], [address], [place], [address], [place] tel:[phone] [facility], Sicca syndrome, unspecifiedPa in in left shoulder Apr- 2 Adam Pendleton. [address], [place], [address], [place]. tel:[phone] Referring Provider: Helder Jain, [address], [place], [address]. tel:[phone] Office/Outpa tient Visit, Est [facility], [address], [place], [address], [place] tel:[phone] [facility], Sicca syndrome, unspecifiedDy spnea Oct- 2 Adam Pendleton. [address], [place], [address], [place]. tel:[phone] Referring Provider: Helder Jain, [address], [place], [address]. tel:[phone] Office/Outpa tient Visit, Est [facility], [address], [place], [address], [place] tel:[phone] [facility], Sicca syndrome, unspecifiedOt her extermination supervisor (current) drug therapyPrimar y OA of right handDyspnea Apr- 1 Adam Pendleton. [address], [place], [address], [place]. tel:[phone] Referring Provider: Helder Jain, [address], [place], [address]. tel:[phone] Office/Outpa tient Visit, New [facility], [address], [place], [address], [place] tel:[phone] [facility], Sicca syndrome, unspecifiedPa in in rt ankleOther fdc (current) drug therapy 1 Adam Pendleton. [address], [address], [place], [address], [place]. tel:[phone] Referring Provider: Helder Medina G, [address], [place], [address]. tel:[phone] [facility], [address], [place], [address], [place] tel:[phone] [facility] No Information 1 Mo Sullivan. [facility] [address] [place] [address] [address], [place], [address], [place]. tel:[phone] Family History Family Member Type Diagnosis Age At Onset No Information Immunizations Vaccine Date Status Comments COVID-19 Moderna administered Source: Ot er Provider COVID-19 Pfizer administered Note: 1 ; Source: Other Provider Payers Payer name Insurance type Covered constitution party ID Authoriza tion(s) [employer] Medicare Adv [id number] MB [id number] Social History Type Description Quantity Date Captured [...] Order Fo ot X-ray; Complete (3+ views) (75055), Sent on: Sent History Of Present Illness Encounter Date Complaint History Of Prese nt Illness No Information Functional Status Date Functional Assessmen t No Information Instructions Date Instruction Additional Infor mation Continue [...]
== END 2023-11-25 10:46 | disposition home or self-care (01) ==
LOC: WOUND 10:45
PROVIDERS: PCP Physician Assistant Medical; Visit Provider Physician Assistant
DX: I87.2 Venous insufficiency (chronic) (peripheral) (principal); I73.9 Peripheral vascular disease, unspecified; L97.322 Non-pressure chronic ulcer of left ankle with fat layer exposed
CPT/HCPCS: 97597

== ENCOUNTER 2023-12-02 12:52 | Outpatient (CLI) | payer OTHER, SELFPAY ==
--- OUTSIDE RECORDS SUMMARY | 2023-12-02 12:54 | XMS_ITS | Continuity of Care Document ---
Author Organization [facility] Address [address] [place] [address] Phone Care Team Providers Care Ve Teacher Name Role Phone Helder Medina MD Unavailable [...] Antibodies Dna Antibody, Single Strand Dna Antibody, [place] Nuclear Antigen Antibodies Rheumatoid Factor, IGM Rheumatoid Factor, IGG, IGA Advance Directives Directive Yes / No Effective Date File Name No Information Encounters Encounter Description Practice Location Reason(s) For Visit Diagnoses Date Provider Providers Copied on Encounter [facility], [address], [place], [address], [place] tel:[phone] [facility], No Information Apr-- 4 Adam Pendleton. [address], [place], [address], [place]. tel:[phone] Referring Provider: Helder Jain, [address], [place], [address]. tel:[phone] Office/Outpa tient Visit, Est [facility], [address], [place], [address], [place] tel:[phone] [facility], Sjogren syndrome w/ inflammatory arthritisPain in left foot Apr- 0 4 Lebedoff Helder. [address], [place], [address], [place]. tel:[phone] Referring Provider: Helder Jain, [address], [place], [address]. tel:[phone] Office/Outpa tient Visit, Est [facility], [address], [place], [address], [place] tel:[phone] [facility], Sjogren syndrome w/ inflammatory arthritisPrim mauri osteoarthriti s, right hand 3 Lebedoff Helder. [address], [place], [address], [place]. tel:[phone] Referring Provider: Helder Jain, [address], [place], [address]. tel:[phone] Office/Outpa tient Visit, Est [facility], [address], [place], [address], [place] tel:[phone] [facility], Sicca syndrome, unspecifiedWe akness November- 0 3 Lebedoff Helder. [address], [place], [address], [place]. tel:[phone] Referring Provider: Helder Jain, [address], [place], [address]. tel:[phone] Office/Outpa tient Visit, Est [facility], [address], [place], [address], [place] tel:[phone] [facility], Sicca syndrome, unspecifiedPa in in left shoulder Apr- 2 Adam Pendleton. [address], [place], [address], [place]. tel:[phone] Referring Provider: Helder Jain, [address], [place], [address]. tel:[phone] Office/Outpa tient Visit, Est [facility], [address], [place], [address], [place] tel:[phone] [facility], Sicca syndrome, unspecifiedDy spnea Oct- 2 Adam Pendleton. [address], [place], [address], [place]. tel:[phone] Referring Provider: Helder Jain, [address], [place], [address]. tel:[phone] Office/Outpa tient Visit, Est [facility], [address], [place], [address], [place] tel:[phone] [facility], Sicca syndrome, unspecifiedOt her long term acute care registered nurse (current) drug therapyPrimar y OA of right handDyspnea Apr- 1 Adam Pendleton. [address], [place], [address], [place]. tel:[phone] Referring Provider: Helder Jain, [address], [place], [address]. tel:[phone] Office/Outpa tient Visit, New [facility], [address], [place], [address], [place] tel:[phone] [facility], Sicca syndrome, unspecifiedPa in in rt ankleOther fci (current) drug therapy 1 Adam Pendleton. [address], [place], [address], [place]. tel:[phone] Referring Provider: Helder Medina G, [address], [place], [address]. tel:[phone] [facility], [address], [place], [address], [place] tel:[phone] [facility] [place] No Information 1 Mo Sullivan. [facility] [address] [place] [address] [address], [place], [address], [place]. tel:[phone] Family History Family Member Type Diagnosis Age At Onset No Information Immunizations Vaccine Date Status Comments COVID-19 Moderna administered Source: Ot er Provider COVID-19 Pfizer administered Note: 1 ; Source: Other Provider Payers Payer name Insurance type Covered alliance party ID Authoriza tion(s) [employer] Medicare Adv [id number] MB [id number] Social History Type Description Quantity Date Captured [...] Order Fo ot X-ray; Complete (3+ views) (62022), Sent on: Sent History Of Present Illness [...]
--- OUTSIDE RECORDS SUMMARY | 2023-12-02 12:54 | XMS_ITS | Continuity of Care Document ---
Author Organization [facility] Address [address] [place] [address] Phone Care Team Providers Care Licensed Nursing Assistant Name Role Phone Usha Dickinson Unavailable [...] on Encounter [facility], [address], [place], [place], [id number], [place] tel:[phone] No Information Formerly [facility], [facility]. [facility], [address], [place], [place], [address] , [place]. [phone] Office/Outpat ient Visit,Est, Mod [facility], [address], [place], [place], [id number], [place] tel:[phone] [facility] Other forms of scoliosis, thoracolumbar regionL2 wedge compression fracture, initial encounter for closed fractureSpondy lolisthesis, lumbar region 0 [facility], [facility]. [facility], [address], [place], [place], [address] , [place]. tel:[phone] Referring Provider: Rakel Arvizu, [facility] [address] [place], [address]. tel:[phone] Office/Outpat ient Visit,Est, Mod [facility], [address], [facility] [place], [id number], [place] tel:[phone] [facility] L2 wedge compression fracture, initial encounter for closed fractureOther forms of scoliosis, thoracolumbar regionSpondylo listhesis, lumbar region 0 Kwame Kerr. [facility], [address], [place], [place], [address] , . tel:[phone] Referring Provider: Rakel Arvizu [facility] [address] [place], [address]. tel:[phone] Office/Outpat ient Visit,[facility], [facility], [address], [facility] [place], [address], [place] tel:[phone] [facility] [place] L2 wedge compression fracture, initial encounter for closed fractureOther forms of scoliosis, thoracolumbar regionSpondylo listhesis, lumbar region 0 Kwame Kerr. [facility], [address], [place], [place], [address] , [place]. tel:[phone] Referring Provider: Rakel Arvizu [facility] [address] [place], [address]. tel:[phone] Family History Family Member Type Diagnosis Age At Onset No Information Payers Payer name Insurance type Covered green party ID Authoralethaa tishannon(s) Medicare MB [id number] [facility] [id number] [facility] [id number] Social History Type Description Quantity Date Captured [...]
--- OUTSIDE RECORDS SUMMARY | 2023-12-02 12:54 | XMS_ITS | Data Portability ---
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 Patsy A Wood [id number] Patsy A Wood 11/12/2021 2 [place] [id number] Patsy A Wood [id number] Patsy A Wood 09/14/2021 1 [place] [employer] Patsy A Wood [id number] Patsy A Wood 09/14/2021 2 [place] [id number] Patsy A Wood [id number] Patsy A Wood 09/14/2021 1 [place] [employer] [facility] Patsy A Wood [id number] Patsy A Wood 09/14/2021 2 [place] [id number] Patsy A Wood [id number] Patsy A Wood 08/03/2021 1 [place] [employer] Patsy A Wood [id number] Patsy A Wood 08/03/2021 2 [place] [id number] Pasty A Wood [id number] Patsy A Wood 11/26/2020 1 [place] [employer] Patsy A Wood [id number] Patsy A Wood 11/26/2020 2 [place] [id number] Patsy A Wood [id number] Patsy A Wood 11/11/2020 1 [place] [employer] Patsy A Wood [id number] Patsy A Wood 11/11/2020 2 [place] [id number] Patsy A Wood [id number] Patsy A Wood 05/13/2020 1 [place] [employer] Patsy A Wood [id number] Patsy A Wood 05/13/2020 2 [place] [id number] Patsy A Wood [id number] Patsy A Wood 04/15/2020 1 [place] [employer] Patsy A Wood [id number] Patsy Aramis Jerel 04/15/2020 2 [place] [id number] Patsy Beltrán [id number] Patsy Aramis Jerel Notes Date Note Type Note Provider Name and Address Organization Details Recorded Time 04/15/2020 text/html HPI Notes: sp interstim lead and IPG 9-29 doing well on program 3 vagianl was concerned as it was timing out Charlotte Smith MD [address] [place] [address],[address] [place] [address], [phone], [facility] 04/15/2020 10:12:37 05/13/2020 text/html HPI Notes: SP Interstim lead and IPG SureScan 9-29 for OAB/UUI sx. had successful PNE prior, waited for implant as she had back fx. asks about renal cyst, proteinceauosu on mri asks about clitorial irritation, hx of LS using estrogren and clobetasol was on program 3more leaks 2-3 days ago, changed to program 4 vagianl. Charlotte Smith MD [address] [place] [address],[address], [place], [address], [facility] 05/13/2020 10:32:36 11/11/2020 text/html HPI Notes: [...] be almost every hour Charlotte Smith MD [address] [place] [address],[address], [place], [address], [facility] 11/11/2020 12:16:47 08/03/2021 text/html HPI Notes: [...] on Lasix as needed Charlotte Smith MD [address] [place] [address],[address], [place], [address], [facility] 08/03/2021 11:57:51 09/14/2021 text/html HPI Notes: [...] to be almost every hour. ELMA Blanco [address] [place] [address],[address], [place], [address], [facility] 09/14/2021 10:49:41 11/12/2021 text/html HPI Notes: [...] with sjorgrens. This visit was conducted using Tysdo phone technology. Prior to conducting our health visit, the patient and I discussed the risks, benefits and alternatives to phone visits. The patient elected to proceed with the phone visit. ELMA Blanco [address] [place] [address],[address], [address], [facility] 11/12/2021 11:50:24 12/06/2022 text/html HPI Notes: [...] changed Rate chaanged Resolution changed Demetri felix, [facility] 12/06/2022 11:08:58 04/28/2023 text/html HPI Notes: [...] per day. had a few infections in apr/nov and none since. using estrogren/clobetasol . on [...] to be almost every hour. ELMA Blanco [address] [place] [address],[address], [place], [address], [facility] 04/28/2023 11:58:40 OBGyn Episode No OBEpisode recorded.
--- OUTSIDE RECORDS SUMMARY | 2023-12-02 12:54 | XMS_ITS | Clinical Summary ---
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 09/27 Prediabetes [...] Date Anticoagulation monitoring, INR range 2-3 [Z79.01]; [place] [facility] 2.5-3.0 12/06/2016 1 Pessary maintenance 02/25/2016 09/28/19 20 Anticoagulation monitoring, goal range 2.0-2.6 09/19/2013 01/09/2018 Abnormal stress test 11/17/2010 011 Routine general medical exam ination at a health care facility 07/12/2009 09/28/2019 Overview: Normal CT angiogram 11/2010 Hip pain 05/06/2008 07/09/2009 Onychomycosis 05/06/2008 08/27/2008 HX OF VENOUS THROMBOSIS AND EMBOLISM 11/09/2006 12/06/2012 Bilateral pulmonary embolism 10/11/2006 11/18/2017 AFTERCARE, LONG-TERM USE, NE DICATIONS NEC-PLAQUENIL 10/22/2003 Encounters Date Type Department Care Team Description 11/23/2023 9:30 AM CDT Office Visit [facility] [address] [place] [address] Charlotte Springer MD Ankle Pain/problem (L medial malleolar ulcer) 11/23/2023 6:47 AM CDT - 11/23/2023 11:59 PM CDT Hospital Encounter [facility] [address] [place] [address] Charlotte Springer MD PAD (peripheral artery disease) (HC) 11/22/2023 Travel 09/29/2023 9:00 AM CDT Orders Only [facility] [address] [place] [address] Lab, Farm Outside Order (Kd WILLS 07/07/2023) 09/29/2023 Travel from Last 3 Months Immunizations Name Administration Dates Next Due AMB INFLUENZA IIV3 (AGE 65+ YRS) PF (Flu Clinic Only) 03/23/2017 AMB Influenza, IIV3 (Age >=3 years) Preserve Free (Flu Clinic Only) 04/08/2009 AMB Influenza, IIV3 (Age >=3 years)(Flu Clinic Only) 04/06/2013,04/16/2011,04/24/2008 COVID-19 vaccine ([employer] 30mcg/0.3mL) PF, MDV 09/02/2020,08/12/2020 Influenza A (H1N1), [...] Appointment [facility] [address] [place] [address] 12/05/2023 11:00 AM CDT Office Visit [facility] [address] [place] [address] Charlotte Springer MD [address] [place], [place] [address] 02/28/2024 10:00 AM CDT Office Visit [facility] [address] [place] [address] [place] [address] [place] [address] Health Maintenance Due Date Last Done Comments [...] history exists Medical Devices Implanted Type Area Dry Cans Operator Device Identifier Shelf Expiration Date Model / Serial / Lot Lead Kit 4.32mm Spacing 28cm Length Interstim - [id number] Implanted:Qty: 1 on 04/01/2020 by Charlotte Smith MD at [facility] N/A: Sacrum [employer] Pain Therapy 09/30/2021 [id number]# / / [id number] Stimulator 7.7mm 14cc Interstim Ii - [id number] Implanted:Qty: 1 on 04/01/2020 by Charlotte Smith MD at [facility] N/A: Sacrum [employer] Pain Therapy 03/31/2021 [id number]# / [id number] / Description:PIN [id number] Procedures Procedure Name Priority Date/Time Associated Diagnosis [...] 2 SITES AXIAL Routine 07/02/2019 11:48 AM 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 [id number] : ?1940 ??Study Date: ?? 11/23/2023 7:17:22 AM Age: ?83 years ?? Tech: ? KBN/CRK Gender: F ?Referring MD: CHARLOTTE SPRINGER Site: [facility] Vascular [facility] Study performed: ?Lower extremity resting MINOR, [...] ? Index +-----+ +--------+ +-----+ 1.24 ?241 ?EMPLOYEE RELATIONS CONSULTANT ?107 ? 0.55 +-----+ +--------+ +-----+ 1.23 ?238 ?DPA ?147 ? 0.76 +-----+ +--------+ +-----+ 0.63 ?122 ? Digit 1 ?45 ? 0.23 +-----+ +--------+ +-----+ Wang Dela Cruz MD. Electronically signed on 11/23/2023 12:17:56 PM This study was performed and interpreted by a service accredited by the Intersocietal Accreditation Commission (IAC/Vascular), [email or web address].org/vascular Report generated by [facility]. ??Final ?? Procedure Note Wang Dela Cruz MD - 11/23/2023 VASCULAR ULTRASOUND REPORT RODERICK HEATON : 1940 Study Date: 11/23/2023 7:17:22 AM Age: 83 years Tech: ARISTIDES/JOHNNY Gender: F Referring MD: CHARLOTTE SPRINGER Site: [facility] Study performed: Lower extremity resting MINOR, [...] 194 Index +-----+ +--------+ +-----+ 1.24 241 EMPLOYEE RELATIONS CONSULTANT 107 0.55 +-----+ +--------+ +-----+ 1.23 238 DPA 147 0.76 +-----+ +--------+ +-----+ 0.63 122 Digit 1 45 0.23 +-----+ +--------+ +-----+ Wang Dela Cruz MD. Electronically signed on 11/23/2023 12:17:56 PM This study was performed and interpreted by a service accredited by theIntersocietal Accreditation Commission (IAC/Vascular),[email or web address]/vascular Report generated by [facility]. Final Charlotte Springer MD US * US ARTERIAL LOWER EXTREMITY BILATERAL (11/23/2023 8:37 AM CDT) Anatomical Region Laterality Modality LEGS, LEG L, LEG R Ultrasound 11/23/2023 7:26 AM CDT Narrative 11/23/2023 12:22 PM CDT VASCULAR ULTRASOUND REPORT RODERICK HEATON Accession#: ?? [id number] : ?1940 ??Study Date: ?? 11/23/2023 7:26:56 AM Age: ?83 years ?? Tech: ? KBN/CRK Gender: F ?Referring MD: CHARLOTTE SPRINGER Site: [facility] Study performed: ?Lower extremity duplex US, (bilateral). [...] DST ? 104 ? +--------+ + +-----+ ADMINISTRATIVE SUPPORT ASSOCIATE DST ? 111 ? +--------+ + +-----+ PFA ? 88 ? +--------+ + +-----+ SFA PRX ? 111 ? +--------+ + +-----+ SFA MID ? 66 ? +--------+ + +-----+ SFA DST ? 415 ? 64 ? 6.5 ?? +--------+ + +-----+ COLLIN PRX ? 101 ? +--------+ + +-----+ COLLIN DST ? 41 ? +--------+ + +-----+ EMPLOYEE RELATIONS CONSULTANT DST ? 80 ? +--------+ + +-----+ KAREN DST ? 38 ? +--------+ + +-----+ LAXMI DST -179 retro ? +--------+ + +-----+ DPA ?-34 retro ? +--------+ + +-----+ +--------+ + +-----+ LEFT ? Velocity cm/s PRE ? Ratio ? Velocity cm/s ? Phasicity ? +--------+ + +-----+ EIA DST ? 100 ? +--------+ + +-----+ ADMINISTRATIVE SUPPORT ASSOCIATE DST ? 98 ? +--------+ + +-----+ PFA ? 73 ? +--------+ + +-----+ SFA PRX ? 100 ? +--------+ + +-----+ SFA MID ? 52 ? +--------+ + +-----+ SFA DST ? 44 ? +--------+ + +-----+ COLLIN PRX ? 674 ? 55 ? 12.3 +--------+ + +-----+ COLLIN DST ? 27 ? +--------+ + +-----+ EMPLOYEE RELATIONS CONSULTANT DST ? 11 ? +--------+ + +-----+ ALXMI DST ? 40 ? +--------+ + +-----+ [...] Accreditation Commission (IAC/Vascular), www.[email or web address].org/vascular Report generated by [facility]. ??Final ?? Procedure Note Wang Dela Cruz MD - 11/23/2023 VASCULAR ULTRASOUND REPORT RODERICK HEATON : 1940 Study Date: 11/23/2023 7:26:56 AM Age: 83 years Tech: ARISTIDES/JOHNNY Gender: F Referring MD: CHARLOTTE SPRINGER Site: [facility] Study performed: Lower extremity duplex US, (bilateral). [...] +-----+ EIA DST 104 +--------+ + +-----+ ADMINISTRATIVE SUPPORT ASSOCIATE DST 111 +--------+ + +-----+ PFA 88 +--------+ + +-----+ SFA PRX 111 +--------+ + +-----+ SFA MID 66 +--------+ + +-----+ SFA DST 415 64 6.5 +--------+ + +-----+ COLLIN PRX 101 +--------+ + +-----+ COLLIN DST 41 +--------+ + +-----+ EMPLOYEE RELATIONS CONSULTANT DST 80 +--------+ + +-----+ KAREN DST 38 +--------+ + +-----+ LAXMI DST -179 retro +--------+ + +-----+ DPA -34 retro +--------+ + +-----+ +--------+ + +-----+ LEFT Velocity cm/s PRE Ratio Velocity cm/s Phasicity +--------+ + +-----+ EIA DST 100 +--------+ + +-----+ ADMINISTRATIVE SUPPORT ASSOCIATE DST 98 +--------+ + +-----+ PFA 73 +--------+ + +-----+ SFA PRX 100 +--------+ + +-----+ SFA MID 52 +--------+ + +-----+ SFA DST 44 +--------+ + +-----+ COLLIN PRX 674 55 12.3 +--------+ + +-----+ COLLIN DST 27 +--------+ + +-----+ EMPLOYEE RELATIONS CONSULTANT DST 11 +--------+ + +-----+ LAXMI DST [...] theIntersocietal Accreditation Commission (IAC/Vascular),www.[email or web address]/vascular Report generated by [facility]. Final Charlotte Springer MD US * TSH (09/29/2023 9:04 AM CDT) TSH 1.48 0.27 - 4.20 uIU/mL 09/29/2023 5:48 PM CDT [facility] Blood BLOOD SPECIMEN / Unknown Venipuncture / Unknown 09/29/2023 9:04 AM CDT 09/29/2023 9:04 AM CDT Narrative [facility] - 09/29/2023 5:48 PM CDT In Adults, TSH values between 5.00 and 10.00 uIU/ml do not necessarily indicate the presence of Hypothyroidism. Correlation with clinical findings such as presence of goiter and/or Thyroperoxidase (TPO) Antibody may be helpful. For more information please refer to SUZETTE 2004; 291: 228-238. Rakel Connor DO CHEMISTRY [facility] [address] [place] [address], [place] * (ABNORMAL) T4,FREE (09/29/2023 9:04 AM CDT) T4,FREE 1.78(H) 0.93 - 1.70 ng/dL 09/29/2023 5:48 PM CDT [facility] Blood BLOOD SPECIMEN / Unknown Venipuncture / Unknown 09/29/2023 9:04 AM CDT 09/29/2023 9:04 AM CDT Rakel Connor DO CHEMISTRY [facility] [address] [place] [address], * (ABNORMAL) XR DXA BONE DENSITY 2 SITES AXIAL (07/02/2019 11:48 AM NURSING HOME SOCIAL WORKER) Anatomical Region Laterality Modality Spine, HIPS, HIPL, HIPR Other Narrative 07/06/2019 11:01 AM NURSING HOME SOCIAL WORKER Please see scanned document for results of this study. 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
== END 2023-12-02 12:53 | disposition home or self-care (01) ==
LOC: WOUND 12:53
PROVIDERS: PCP Physician Assistant Medical; Visit Provider Nurse Practitioner Family
DX: I87.2 Venous insufficiency (chronic) (peripheral) (principal); I73.9 Peripheral vascular disease, unspecified; L97.322 Non-pressure chronic ulcer of left ankle with fat layer exposed; R73.03 Prediabetes
CPT/HCPCS: 97597

== ENCOUNTER 2023-12-08 11:25 | Outpatient (CLI) | payer OTHER, SELFPAY ==
--- OUTSIDE RECORDS SUMMARY | 2023-12-08 11:27 | XMS_ITS | Continuity of Care Document ---
Author Organization [facility] Address [address] [place] [address] Phone Care Team Providers Care Surplus Property Disposal Agent Name Role Phone Usha Dickinson Unavailable Unavailable [...] on Encounter [facility], [address], [facility] [place], [id number], [place] tel:[phone] No Information [facility]. [facility], [address], [place], [place], [id number] , [place]. [phone] Office/Outpat ient Visit,Est, Mod [facility], [address], [place], [place], [id number], [place] tel:[phone] [facility] Other forms of scoliosis, thoracolumbar regionL2 wedge compression fracture, initial encounter for closed fractureSpondy lolisthesis, lumbar region 0 Puente Usha. [facility], [address], [place], [place], [id number] , [place]. tel:[phone] Referring Provider: Rakel Arvizu, [facility] [address] [place], [address]. tel:[phone] Office/Outpat ient Visit,Est, Mod [facility], [address], [facility] [place], [id number], [place] tel:[phone] [facility] L2 wedge compression fracture, initial encounter for closed fractureOther forms of scoliosis, thoracolumbar regionSpondylo listhesis, lumbar region 0 Kwame Kerr. [facility], [address], [place], [place], [id number] , . tel:[phone] Referring Provider: Rakel Arvizu [place] [address] [place], [address]. tel:[phone] Office/Outpat ient Visit,[facility], [address], [facility] [place], [id number], [place] tel:[phone] [facility] [place] L2 wedge compression fracture, initial encounter for closed fractureOther forms of scoliosis, thoracolumbar regionSpondylo listhesis, lumbar region 0 Kwame Kerr. [facility], [address], [place], [place], [id number] , [place]. tel:[phone] Referring Provider: Rakel Arvizu [place] [address] [place], [address]. tel:[phone] Family History Family Member Type Diagnosis Age At Onset No Information Payers Payer name Insurance type Covered republican ID Authoralethaa tishannon(s) Medicare MB [id number] [facility] [id number] [facility] [id number] Social History Type Description Quantity Date Captured [...]
--- OUTSIDE RECORDS SUMMARY | 2023-12-08 11:27 | XMS_ITS | Clinical Summary ---
Author Organization [facility] Address [place], [place] [address] Care Team Providers Care Welding Machine Operator Gas Name Role Phone Kd Restrepo MD Unavailable [phone] Cody Veliz MD Unavailable [phone] Maritza Rendon DO Primary Care Provide r [...] before breakfast. 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 09/27 Prediabetes [...] Date Anticoagulation monitoring, INR range 2-3 [Z79.01]; [place] Target 2.5-3.0 12/06/2016 1 Pessary maintenance 02/25/2016 09/28/19 20 Anticoagulation monitoring, goal range 2.0-2.6 09/19/2013 01/09/2018 Abnormal stress test 11/17/2010 011 Routine general medical exam ination at a health care facility 07/12/2009 09/28/2019 Overview: Normal CT angiogram 11/2010 Hip pain 05/06/2008 07/09/2009 Onychomycosis 05/06/2008 08/27/2008 HX OF VENOUS THROMBOSIS AND EMBOLISM 11/09/2006 12/06/2012 Bilateral pulmonary embolism 10/11/2006 11/18/2017 AFTERCARE, LONG-TERM USE, AK DICATIONS NEC-PLAQUENIL 10/22/2003 Encounters Date Type Department Care Team Description 12/05/2023 11:00 AM CDT Office Visit [facility] [address] [place] [address] Charlotte Anderson MD Follow Up (LLE wound follow up ) 12/05/2023 8:56 AM CDT - 12/05/2023 11:59 PM CDT Hospital Encounter [facility] [address] [place] [address] Charlotte Anderson MD Venous insufficiency; Venous stasis ulcer of ankle, left (HC) 12/05/2023 Travel 11/23/2023 9:30 AM CDT Office Visit [facility] [address] [place] [address] Charlotte Anderson MD Ankle Pain/problem (L medial malleolar ulcer) 11/23/2023 6:47 AM CDT - 11/23/2023 11:59 PM CDT Hospital Encounter [facility] [address] [place] [address] Charlotte Anderson MD PAD (peripheral artery disease) (HC) 11/22/2023 Travel 09/29/2023 9:00 AM CDT Orders Only [facility] [address] [place] [address] Lab, Farm Outside Order (Kd Restrepo MD PA 07/07/2023) 09/29/2023 Travel from Last 3 Months Immunizations Name Administration Dates Next Due AMB INFLUENZA IIV3 (AGE 65+ YRS) PF (Flu Clinic Only) 03/23/2017 AMB Influenza, IIV3 (Age >=3 years) Preserve Free (Flu Clinic Only) 04/08/2009 AMB Influenza, IIV3 (Age >=3 years)(Flu Clinic Only) 04/06/2013,04/16/2011,04/24/2008 COVID-19 vaccine ([employer] 30mcg/0.3mL) PF, MDV 09/02/2020,08/12/2020 Influenza A (H1N1), [...] Sign Reading Time Taken Comments Blood Pressure 179/74 12/05/2023 10:56 AM CDT Pulse 66 12/05/2023 10:56 AM CDT Temperature 36.2 ??C (97.1 ??F) 04/23/2022 8:11 AM CD T Respiratory Rate 18 03/18/2023 2:24 PM CDT Oxygen Saturation 98% 12/05/2023 10:56 AM CDT Inhaled Oxygen Concentration - - Weight 61.7 kg (136 lb) 12/05/2023 10:56 AM CDT Height 149.9 cm (4' 11) 12/05/2023 10:56 AM CDT Body Mass Index 27.47 12/05/2023 10:56 AM CDT Plan of Treatment Upcoming Encounters Date Type Department Care Team (Late st Contact Info) Description 02/28/2024 10:00 AM CDT Office Visit [facility] [address] [place] [address] [place] [address] [place] [address] Health Maintenance Due Date Last Done Comments Depression screening for age 12+ 06/18/2021 06/18/2020, 06/18/2020, 06/18/2020, Additional history exists Medicare Wellness for age 65+ 06/19/2021, 06/18/2019, 06/28/2018, Additional history exists Influenza for age 65+ 03/04/2024 03/20/2020 , 04/03/2019, 03/02/2018, Additional history exists BMI (ht and wt on same day) for age 18+ 12/04/2024 12/05/2023, 11/23/2023, 03/18/2023, Additional history exists Tetanus booster 01/28/2030 01/29/2020, 0508/2010, 02/02/2004, Additional history exists Tdap Completed 11/02/2010 Pneumococcal series for age 65+ Completed 07/19/2014, 10/15/2005, 04/11/1997 Zoster (shingles) series for age 50+ Completed 09/27/2018, 07/06/2018 DEXA/DXA scan for age 65+ Completed 2018, 01/13/2016, 12/18/2010 COVID-19 vaccine series Completed 06/13/20, 04/30/2022, 04/14/2021, Additional history exists Medical Devices Implanted Type Area Lining Brusher Device Identifier Shelf Expiration Date Model / Serial / Lot Lead Kit 4.32mm Spacing 28cm Length Interstim - [id number] Implanted:Qty: 1 on 04/01/2020 by Charlotte Smith MD at [facility] N/A: Sacrum [employer] Pain Therapy 09/30/2021 [id number] / / [id number] Stimulator 7.7mm 14cc Interstim Ii - [id number] Implanted:Qty: 1 on 04/01/2020 by Charlotte Smith MD at [facility] N/A: Sacrum [employer] Pain Therapy 03/31/2021 [id number] / [id number] / Description:PIN [id number] Procedures Procedure Name Priority Date/Time Associated Diagnosis Comments US VENOUS INSUFFICIENCY LOWER EXTREMITY BILATERAL NBA 12/05/2023 10:28 AM CDT Venous insufficiency Venous stasis ulcer of ankle, left (HC) US ANKLE BRACHIAL INDEX BILATERAL Routine 11/23/2023 8:37 AM CDT PAD (peripheral artery disease) (HC) US ARTERIAL LOWER EXTREMITY BILATERAL Routine 11/23/2023 8:37 AM CDT PAD (peripheral artery disease) (HC) T4,FREE Routine 09/29/2023 9:04 AM CDT Myxedema heart disease TSH Routine 09/29/2023 9:04 AM CDT Myxedema heart disease XR DXA BONE DENSITY 2 SITES AXIAL Routine 07/02/2019 11:48 AM 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 ??No deep venous thrombosis of either lower extremity. Incompetence of both the right and left popliteal veins. 2. ??The right superficial venous system is patent. Focal incompetence of the greater saphenous vein and small saphenous vein at the distal calf and the knee respectively. 3. ??The left superficial venous system is patent. Incompetence of the greater saphenous vein from the saphenofemoral junction to the knee. Incompetent perforating veins in the calf and at the level of the left lower extremity wound. Narrative 12/05/2023 12:53 PM CDT For Patients: As a result of the Cures Act, medical imaging exams and procedure reports are released immediately into your electronic medical record. You may view this report before your referring provider. If you have questions, please contact your health care provider. EXAM: US VENOUS INSUFFICIENCY LOWER EXTREMITY BILATERAL LOCATION: [facility] DATE: 12/05/2023 INDICATION: Lower extremity pain, nonhealing wound. Assess for incompetent veins. TECHNIQUE: Supine and upright ultrasound of the deep and superficial veins with Valsalva and compression augmentation maneuvers. Duplex imaging is performed utilizing underwood-scale, two-dimensional images, color-flow imaging, Doppler waveform analysis, and spectral Doppler imaging. INCOMPETENCY CRITERIA: Deep vein reflux reported when greater than 1,000 ms flow reversal. Superficial vein reflux reported when greater than 600 ms flow reversal. Senior Publications Specialist vein reflux reported as greater than 350 ms flow reversal. RIGHT DEEP VEIN FINDINGS: ?? Normal compressibility, augmentation, and phasicity of the common femoral, profunda femoris, femoral, popliteal, and posterior tibial veins, without deep venous thrombus. Incompetence of the popliteal vein. LEFT DEEP VEIN FINDINGS: ?? Normal compressibility, augmentation, and phasicity of the common femoral, profunda femoris, femoral, popliteal, and posterior tibial veins, without deep venous thrombus. Incompetence of the popliteal vein. RIGHT SUPERFICIAL VEIN FINDINGS: Great saphenous vein: Incompetence in the distal calf where it measures 2 mm in diameter. Small saphenous vein: Incompetence at the knee where it measures 2 mm in diameter. Perforating vein in the calf appear incompetent. LEFT SUPERFICIAL VEIN FINDINGS: Great saphenous vein: Incompetence at the saphenofemoral junction to the knee measuring 4 to 7 mm. Small saphenous vein: Competent from the saphenopopliteal junction to the mid calf. Incompetent perforating vein measuring 6 mm in diameter seen 10 cm above the ankle. Incompetent perforating vein at the level of the wound measuring 4 mm. Procedure Note Boston Moore MD - 12/05/2023 For Patients: As a result of the 21st Century Cures Act, medical imagingexams and procedure reports are released immediately into your electronicmedical record. You may view this report before your referring provider.If you have questions, please contact your health care provider. EXAM: US VENOUS INSUFFICIENCY LOWER EXTREMITY BILATERAL LOCATION: [facility] DATE: 12/05/2023 INDICATION: Lower extremity pain, nonhealing wound. Assess for incompetentveins. TECHNIQUE: Supine and upright ultrasound of the deep and superficial veinswith Valsalva and compression augmentation maneuvers. Duplex imaging isperformed utilizing underwood-scale, two-dimensional images, color-flowimaging, Doppler waveform analysis, and spectral Doppler imaging. INCOMPETENCY CRITERIA: Deep vein reflux reported when greater than 1,000ms flow reversal. Superficial vein reflux reported when greater than 600ms flow reversal. Senior Publications Specialist vein reflux reported as greater than 350 msflow reversal. RIGHT DEEP VEIN FINDINGS: Normal compressibility, augmentation, and phasicity of the common femoral,profunda femoris, femoral, popliteal, and posterior tibial veins, withoutdeep venous thrombus. Incompetence of the popliteal vein. LEFT DEEP VEIN FINDINGS: Normal compressibility, augmentation, and phasicity of the common femoral,profunda femoris, femoral, popliteal, and posterior tibial veins, withoutdeep venous thrombus. Incompetence of the popliteal vein. RIGHT SUPERFICIAL VEIN FINDINGS: Great saphenous vein: Incompetence in the distal calf where it measures 2mm in diameter. Small saphenous vein: Incompetence at the knee where it measures 2 mm indiameter. Perforating vein in the calf appear incompetent. LEFT SUPERFICIAL VEIN FINDINGS: Great saphenous vein: Incompetence at the saphenofemoral junction to theknee measuring 4 to 7 mm. Small saphenous vein: Competent from the saphenopopliteal junction to themid calf. Incompetent perforating vein measuring 6 mm in diameter seen 10 cm abovethe ankle. Incompetent perforating vein at the level of the woundmeasuring 4 mm. IMPRESSION: 1. No deep venous thrombosis of either lower extremity. Incompetence ofboth the right and left popliteal veins. 2. The right superficial venous system is patent. Focal incompetence ofthe greater saphenous vein and small saphenous vein at the distal calf andthe knee respectively. 3. The left superficial venous system is patent. Incompetence of thegreater saphenous vein from the saphenofemoral junction to the knee.Incompetent perforating veins in the calf and at the level of the leftlower extremity wound. Charlotte Anderson MD * US ANKLE BRACHIAL INDEX BILATERAL (11/23/2023 8:37 AM CDT) Anatomical Region Laterality Modality ANKLES, ANKLE L, ANKLE R Ultraso und 11/23/2023 7:17 AM CDT Narrative 11/23/2023 12:17 PM CDT VASCULAR ULTRASOUND REPORT RODERICK HEATON Accession#: ?? [id number] : ?1940 ??Study Date: ?? 11/23/2023 7:17:22 AM Age: ?83 years ?? Tech: ? KBN/CRK Gender: F ?Referring MD: CHARLOTTE ANDERSON Site: [facility] Study performed: ?Lower extremity resting MINOR, (bilateral). [...] ? Index +-----+ +--------+ +-----+ 1.24 ?241 ?PROFILE GRINDER ?107 ? 0.55 +-----+ +--------+ +-----+ 1.23 ?238 ?DPA ?147 ? 0.76 +-----+ +--------+ +-----+ 0.63 ?122 ? Digit 1 ?45 ? 0.23 +-----+ +--------+ +-----+ Wang Dela Cruz MD. Electronically signed on 11/23/2023 12:17:56 PM This study was performed and interpreted by a service accredited by the Intersocietal Accreditation Commission (IAC/Vascular), [email or web address] Report generated by [employer]. ??Final ?? Procedure Note Wang Dela Cruz MD - 11/23/2023 VASCULAR ULTRASOUND REPORT RODERICK HEATON : 1940 Study Date: 11/23/2023 7:17:22 AM Age: 83 years Tech: ARISTIDES/JOHNNY Gender: F Referring MD: CHARLOTTE ANDERSON Site: [facility] Study performed: Lower extremity resting MINOR, [...] 194 Index +-----+ +--------+ +-----+ 1.24 241 PROFILE GRINDER 107 0.55 +-----+ +--------+ +-----+ 1.23 238 DPA 147 0.76 +-----+ +--------+ +-----+ 0.63 122 Digit 1 45 0.23 +-----+ +--------+ +-----+ Wang Dela Cruz MD. Electronically signed on 11/23/2023 12:17:56 PM This study was performed and interpreted by a service accredited by theIntersocietal Accreditation Commission (IAC/Vascular),[email or web address] Report generated by [employer]. Final Charlotte Anderson MD US * US ARTERIAL LOWER EXTREMITY BILATERAL (11/23/2023 8:37 AM CDT) Anatomical Region Laterality Modality LEGS, LEG L, LEG R Ultrasound 11/23/2023 7:26 AM CDT Narrative 11/23/2023 12:22 PM CDT VASCULAR ULTRASOUND REPORT RODERICK HEATON Accession#: ?? [id number] : ?1940 ??Study Date: ?? 11/23/2023 7:26:56 AM Age: ?83 years ?? Tech: ? KBN/CRK Gender: F ?Referring MD: CHARLOTTE ANDERSON Site: [facility] Vascular [facility] Study performed: ?Lower extremity duplex US, [...] DST ? 104 ? +--------+ + +-----+ JOURNAL BOX INSPECTOR DST ? 111 ? +--------+ + +-----+ PFA ? 88 ? +--------+ + +-----+ SFA PRX ? 111 ? +--------+ + +-----+ SFA MID ? 66 ? +--------+ + +-----+ SFA DST ? 415 ? 64 ? 6.5 ?? +--------+ + +-----+ COLLIN PRX ? 101 ? +--------+ + +-----+ COLLIN DST ? 41 ? +--------+ + +-----+ PROFILE GRINDER DST ? 80 ? +--------+ + +-----+ KAREN DST ? 38 ? +--------+ + +-----+ LAXMI DST -179 retro ? +--------+ + +-----+ DPA ?-34 retro ? +--------+ + +-----+ +--------+ + +-----+ LEFT ? Velocity cm/s PRE ? Ratio ? Velocity cm/s ? Phasicity ? +--------+ + +-----+ EIA DST ? 100 ? +--------+ + +-----+ JOURNAL BOX INSPECTOR DST ? 98 ? +--------+ + +-----+ PFA ? 73 ? +--------+ + +-----+ SFA PRX ? 100 ? +--------+ + +-----+ SFA MID ? 52 ? +--------+ + +-----+ SFA DST ? 44 ? +--------+ + +-----+ COLLIN PRX ? 674 ? 55 ? 12.3 +--------+ + +-----+ COLLIN DST ? 27 ? +--------+ + +-----+ PROFILE GRINDER DST ? 11 ? +--------+ + +-----+ [...] Accreditation Commission (IAC/Vascular), [email or web address] Report generated by [employer]. ??Final ?? Procedure Note Wang Dela Cruz MD - 11/23/2023 VASCULAR ULTRASOUND REPORT RODERICK HEATON : 1940 Study Date: 11/23/2023 7:26:56 AM Age: 83 years Tech: ARISTIDES/JOHNNY Gender: F Referring MD: CHARLOTTE ANDERSON Site: [facility] Vascular [facility] Study performed: Lower extremity duplex US, [...] +-----+ EIA DST 104 +--------+ + +-----+ JOURNAL BOX INSPECTOR DST 111 +--------+ + +-----+ PFA 88 +--------+ + +-----+ SFA PRX 111 +--------+ + +-----+ SFA MID 66 +--------+ + +-----+ SFA DST 415 64 6.5 +--------+ + +-----+ COLLIN PRX 101 +--------+ + +-----+ COLLIN DST 41 +--------+ + +-----+ PROFILE GRINDER DST 80 +--------+ + +-----+ KAREN DST 38 +--------+ + +-----+ LAXMI DST -179 retro +--------+ + +-----+ DPA -34 retro +--------+ + +-----+ +--------+ + +-----+ LEFT Velocity cm/s PRE Ratio Velocity cm/s Phasicity +--------+ + +-----+ EIA DST 100 +--------+ + +-----+ JOURNAL BOX INSPECTOR DST 98 +--------+ + +-----+ PFA 73 +--------+ + +-----+ SFA PRX 100 +--------+ + +-----+ SFA MID 52 +--------+ + +-----+ SFA DST 44 +--------+ + +-----+ COLLIN PRX 674 55 12.3 +--------+ + +-----+ COLLIN DST 27 +--------+ + +-----+ PROFILE GRINDER DST 11 +--------+ + +-----+ LAXMI DST [...] theIntersocietal Accreditation Commission (IAC/Vascular),[email or web address] Report generated by [employer]. Final Charlotte Anderson MD US * TSH (09/29/2023 9:04 AM CDT) TSH 1.48 0.27 - 4.20 uIU/mL 09/29/2023 5:48 PM CDT [facility] Blood BLOOD SPECIMEN / Unknown Venipuncture / Unknown 09/29/2023 9:04 AM CDT 09/29/2023 9:04 AM CDT Narrative [facility] - 09/29/2023 5:48 PM CDT In Adults, TSH values between 5.00 and 10.00 uIU/ml do not necessarily indicate the presence of Hypothyroidism. Correlation with clinical findings such as presence of goiter and/or Thyroperoxidase (TPO) Antibody may be helpful. For more information please refer to SUZETTE 2004; 291: 228-238. Rakel Connor DO CHEMISTRY Performing Organization Address City/[facility]/ZIP Co de Phone Number [facility] [address] [place] [address], [place] * (ABNORMAL) T4,FREE (09/29/2023 9:04 AM CDT) T4,FREE 1.78(H) 0.93 - 1.70 ng/dL 09/29/2023 5:48 PM CDT [facility] Blood BLOOD SPECIMEN / Unknown Venipuncture / Unknown 09/29/2023 9:04 AM CDT 09/29/2023 9:04 AM CDT Rakel Connor DO CHEMISTRY [facility] [address] [place] [address], [place] * (ABNORMAL) XR DXA BONE DENSITY 2 SITES AXIAL (07/02/2019 11:48 AM COMPUTER SYSTEMS HARDWARE ANALYST) Anatomical Region Laterality Modality Spine, HIPS, HIPL, HIPR Other Narrative 07/06/2019 11:01 AM COMPUTER SYSTEMS HARDWARE ANALYST Please see scanned document for results of this study. 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
--- OUTSIDE RECORDS SUMMARY | 2023-12-08 11:28 | XMS_ITS | Continuity of Care Document ---
Author Organization [facility] Address [address] [place] [address] Phone Care Team Providers Care Computer Field Technician Name Role Phone Helder Medina MD Unavailable [...] Antibodies Dna Antibody, Single Strand Dna Antibody, [place] Nuclear Antigen Antibodies Rheumatoid Factor, IGM Rheumatoid Factor, IGG, IGA Advance Directives Directive Yes / No Effective Date File Name No Information Encounters Encounter Description Practice Location Reason(s) For Visit Diagnoses Date Provider Providers Copied on Encounter [facility], [address], [place], [address], [place] tel:[phone] [facility], No Information Apr-- 4 Adam Pendleton. [address], [place], [address], [place]. tel:[phone] Referring Provider: Helder Jain, [address], [place], [address]. tel:[phone] Office/Outpa tient Visit, Est [facility], [address], [place], [address], [place] tel:[phone] [facility], Sjogren syndrome w/ inflammatory arthritisPain in left foot Apr- 0 4 Lebedoff Helder. [address], [place], [address], [place]. tel:[phone] Referring Provider: Helder Jain, [address], [place], [address]. tel:[phone] Office/Outpa tient Visit, Est [facility], [address], [place], [address], [place] tel:[phone] [facility], Sjogren syndrome w/ inflammatory arthritisPrim mauri osteoarthriti s, right hand 3 Lebedoff Helder. [address], [place], [address], [place]. tel:[phone] Referring Provider: Helder Jain, [address], [place], [address]. tel:[phone] Office/Outpa tient Visit, Est [facility], [address], [place], [address], [place] tel:[phone] [facility], Sicca syndrome, unspecifiedWe akness November- 0 3 Lebedoff Helder. [address], [place], [address], [place]. tel:[phone] Referring Provider: Helder Jain, [address], [place], [address]. tel:[phone] Office/Outpa tient Visit, Est [facility], [address], [place], [address], [place] tel:[phone] [facility], Sicca syndrome, unspecifiedPa in in left shoulder Apr- 2 Adam Pendleton. [address], [place], [address], [place]. tel:[phone] Referring Provider: Helder Jain, [address], [place], [address]. tel:[phone] Office/Outpa tient Visit, Est [facility], [address], [place], [address], [place] tel:[phone] [facility], Sicca syndrome, unspecifiedDy spnea Oct- 2 Adam Pendleton. [address], [place], [address], [place]. tel:[phone] Referring Provider: Helder Jain, [address], [place], [address]. tel:[phone] Office/Outpa tient Visit, Est [facility], [address], [place], [address], [place] tel:[phone] [facility], Sicca syndrome, unspecifiedOt her terminal worker (current) drug therapyPrimar y OA of right handDyspnea Apr- 1 Adam Pendleton. [address], [place], [address], [place]. tel:[phone] Referring Provider: Helder Jain, [address], [place], [address]. tel:[phone] Office/Outpa tient Visit, New [facility], [address], [place], [address], [place] tel:[phone] [facility], Sicca syndrome, unspecifiedPa in in rt ankleOther mcc (current) drug therapy 1 Adam Pendleton. [address], [place], [address], [place]. tel:[phone] Referring Provider: Helder Medina G, [address], [place], [address]. tel:[phone] [facility], [address], [place], [address], [place] tel:[phone] [facility] No Information 1 Mo Sullivan. [facility] [address] [place] [address] [address], [place], [address], [place]. tel:[phone] Family History Family Member Type Diagnosis Age At Onset No Information Immunizations Vaccine Date Status Comments COVID-19 Moderna administered Source: Ot er Provider COVID-19 Pfizer administered Note: 1 ; Source: Other Provider Payers Payer name Insurance type Covered libertarian ID Authoriza tion(s) [employer] Medicare Adv [id number] Social History Type Description Quantity Date Captured [...] Order Fo ot X-ray; Complete (3+ views) (02999), Sent on: Sent History Of Present Illness [...]
--- OUTSIDE RECORDS SUMMARY | 2023-12-08 11:28 | XMS_ITS | Data Portability ---
Author Organization [facility], [facility] Address 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 Plan of Treatment Reminders Order Date Submit Date Provider Last Modified By Organization Details Last Modified Time Details Appointments ESTABLISH ED 20 2023 09:00A M ELMA Blanco Not available Not available Not available ESTABLISH ED 45 2023 09:30A M DEMETRI Denis Not available Not available Not available Lab urinalysi s, dipstick 2021 022 [facility], [address], [place], [address], 09/14/2021 10:41:46 urinalysi s, dipstick 2021 022 [facility], [address], [address], [place], [address], 08/03/2021 11:48:36 Referral None recorded. Procedures None recorded. Surgeries None recorded. Imaging None recorded. Medication Orders Myrbetriq 50 mg tablet,ex tended release 2021 022 [email or web address] ([facility]), [address] [place], [address], 11/12/2021 11:33:16 Gemtesa 75 mg tablet 2021 022 [email or web address] Not available 11/12/2021 11:33:22 Gemtesa 75 mg tablet 2021 022 [id number] [address], [place], [address], 11/12/2021 11:33:54 Theracran 650 mg capsule 2019 020 [facility], [address] [place] [address], [address], 05/13/2020 10:33:26 Patient TargetsNo targets recorded. Patient Instructions Encounter Date Encounter Id Patient Instructions Last Modified By Organization Details Last Modified Time 04/28/2023 [id number] Over Active Blad betty (OAB): -Managed with [...] needed [email or web address] Not available 04/28/2023 11:58:26 12/06/2022 [id number] Test each progra m for at least 2 weeks, adjusting amplitude as needed. May remain on a program as long as it is effective. Return as needed for reprogramming. [email or web address] Not available 12/06/2022 10:55:41 04/09/2022 [id number] Test each progra m for at least 2 weeks, adjusting amplitude as needed. May remain on a program as long as it is effective. Return as needed for reprogramming. Not available 04/09/2022 12:34:22 Patient states t hat Gemtesa samples were effective, but the rx was too expensive, so she stopped taking. She would like to try the Gemtesa again, but wonders of it is ok t take every other day, to spread the prescription out, and decrease the expense. I will ask MICHELET Blanco. [email or web address] Not available 04/09/2022 12:37:43 11/12/2021 [id number] Over Active Blad betty (OAB): -Managed with [...] minutes [email or web address] Not available 11/12/2021 11:46:55 09/14/2021 [id number] Over Active Blad betty (OAB): -Managed with [...] issues [email or web address] Not available 09/14/2021 10:49:32 09/14/2021 [id number] Test each progra m for at least 2 weeks, adjusting amplitude as needed. May remain on a program as long as it is effective. Return as needed for reprogramming. [email or web address] Not available 09/14/2021 10:07:26 Patient states t hat Gemtessa samples were very effective, but it is not covered by her insurance. She was also given a rx for Myrbetriq. [email or web address] Not available 09/14/2021 10:08:49 08/03/2021 [id number] s/p interstim surescan -ok for MRIs -doing really well and pleased but occ with UUI 90% better, she is still bothered that she would do more and will give gemtesa 75mg--to see in 6-8 week with PA and with demetri. -to call INFORMATION SYSTEMS SECURITY MANAGER re clitoral fusion/LS. -theracran (cranberry supplement) -to let me know if more utis Not available 08/03/2021 11:56:59 11/26/2020 [id number] Test each progra m for at least 2 weeks, adjusting amplitude as needed. May remain on a program as long as it is effective. Return as needed for reprogramming. [email or web address] Not available 11/27/2020 12:32:23 Reviewed the use of the smart web programmer, and provided handout. Instructed the patient to lay down, with her legs above the level of her heart for at least 1 hour in the late afternoon. This may increase urinary frequency for a couple of hours in the evening, but should help to decrease the nocturia. [email or web address] Not available 11/27/2020 12:46:50 11/11/2020 [id number] sp interstim surescan -ok for MRIs -healing well -to see me in 12 months, will have her see demetri now for programmign options -doing really well and pleased but occ with UUI 90% better -to call INFORMATION SYSTEMS SECURITY MANAGER re clitoral fusion/LS. -theracran (cranberry supplement) -to let me know if more utis Not available 11/11/2020 12:16:02 05/13/2020 [id number] sp interstim 6 w [place] ago -ok for MRIs -healing well -to see me in 6 months, to call if any issues or needs programming -to call INFORMATION SYSTEMS SECURITY MANAGER re clitoral fusion/LS. -to start theracran (cranberry supplement) -to let me know if more utis Not available 05/13/2020 10:31:23 04/15/2020 [id number] sp Interstim -- healing well educated more today to see in 1mo, reminded to call if any questions with the web programmer. Not available 04/15/2020 10:12:25 Reason for Referral None Reported. Results Created Date Observation Date Name Description Value Unit Range Abnormal Flag LastModifiedBy Organization Detail LastModifiedTime 08/03/19 22 08/03/2021 UA DIP CS ADVAN TUS color -advantus YELLOW yellow Not Available [facility] [address] [facility] [address] [facility] [address], [place], [address], 08/03/2021 11:48:36 08/03/19 22 08/03/2021 UA DIP CS ADVAN TUS appearance -advantus CLEAR clear Not Available [facility] [address] [facility] [address], [place], [address], 08/03/2021 11:48:36 08/03/19 22 08/03/2021 UA DIP CS ADVAN TUS glucose -advantus NEGATI VE mg/dL negati ve Not Available [facility] [address] [place] [address] [address], [place], [address], 08/03/2021 11:48:36 08/03/19 22 08/03/2021 UA DIP CS ADVAN TUS bilirubin -advantus NEGATI VE negati ve Not Available [facility] [address] [place] [address] [address], [place], [address], 08/03/2021 11:48:36 08/03/19 22 08/03/2021 UA DIP CS ADVAN TUS ketones -advantus NEGATI VE mg/dL negati ve Not Available [facility] [address] [place] [address] [address], [place], [address], 08/03/2021 11:48:36 08/03/19 22 08/03/2021 UA DIP CS ADVAN TUS sp. gravity -advantus 1.010 1.010- 1.025 Not Available [facility] [address] [place] [address] [address], [place], [address], 08/03/2021 11:48:36 08/03/19 22 08/03/2021 UA DIP CS ADVAN TUS pH -advantus 5.5 5.0-8. 0 Not Available [facility] [address] [place] [address] [address], [place], [address], 08/03/2021 11:48:36 08/03/19 22 08/03/2021 UA DIP CS ADVAN TUS protein -advantus NEGATI VE mg/dL negati ve Not Available [facility] [address] [place] [address] [address], [place], [address], 08/03/2021 11:48:36 08/03/19 22 08/03/2021 UA DIP CS ADVAN TUS urobilinogen -advantus 0.2 normal Not Available [facility] [address] [place] [address], [place], [address], 08/03/2021 11:48:36 08/03/19 22 08/03/2021 UA DIP CS ADVAN TUS nitrites -advantus NEGATI VE negati ve Not Available [facility] [address] [place] [address], [place], [address], 08/03/2021 11:48:36 08/03/19 22 08/03/2021 UA DIP CS ADVAN TUS blood -advantus SMALL negati ve abnormal Not Available [facility] [address] [place] [address], [place], [address], 08/03/2021 11:48:36 08/03/19 22 08/03/2021 UA DIP CS ADVAN TUS leukocytes -advantus TRACE negati ve abnormal Not Available [facility] [address] [place] [address] [address], [place], [address], 08/03/2021 11:48:36 08/03/19 22 08/03/2021 UA DIP CS ADVAN TUS performed by Geena Ingram Not Available [facility] [address] [place] [address] [address], [place], [address], 08/03/2021 11:48:36 08/03/19 22 08/03/2021 UA DIP CS ADVAN TUS total urine volume (mL) 20 /mL Not Available [facility] [address] [place] [address] [address], [place], [address], 08/03/2021 11:48:36 08/03/19 22 08/03/2021 UA MICRO SCOPI C U-WBC 0 - 2 [hpf] 0 - 2 Not Available [facility] [address] [place] [address], [place], [address], 08/03/2021 11:48:38 08/03/19 22 08/03/2021 UA MICRO SCOPI C U-RBC 0 - 2 [hpf] 0 - 2 Not Available [facility] [address] [facility] [address], [place], [address], 08/03/2021 11:48:38 08/03/19 22 08/03/2021 UA MICRO SCOPI C bacteria Small [hpf] negati ve abnormal Not Available [facility] [address] [place] [address] [address], [place], [address], 08/03/2021 11:48:38 08/03/19 22 08/03/2021 UA MICRO SCOPI C squamous epi Small /lpf negati ve,sma ll Not Available [facility] [address] [place] [address] [address], [place], [address], 08/03/2021 11:48:38 09/15/19 22 09/14/2021 UA DIP CS ADVAN TUS color -advantus YELLOW yellow Not Available [facility] [address] [place] [address] [address], [place], [address], 09/14/2021 10:41:46 09/15/19 22 09/14/2021 UA DIP CS ADVAN TUS appearance -advantus CLEAR clear Not Available [facility] [address] [place] [address] [address], [place], [address], 09/14/2021 10:41:46 09/15/19 22 09/14/2021 UA DIP CS ADVAN TUS glucose -advantus NEGATI VE mg/dL negati ve Not Available [facility] [address] [place] [address] [address], [place], [address], 09/14/2021 10:41:46 09/15/19 22 09/14/2021 UA DIP CS ADVAN TUS bilirubin -advantus NEGATI VE negati ve Not Available [facility] [address] [place] [address] [address], [place], [address], 09/14/2021 10:41:46 09/15/19 22 09/14/2021 UA DIP CS ADVAN TUS ketones -advantus NEGATI VE mg/dL negati ve Not Available [facility] [address] [facility] [address], [place], [address], 09/14/2021 10:41:46 09/15/19 22 09/14/2021 UA DIP CS ADVAN TUS sp. gravity -advantus 1.010 1.010- 1.025 Not Available [facility] [address] [facility] [address], [place], [address], 09/14/2021 10:41:46 09/15/19 22 09/14/2021 UA DIP CS ADVAN TUS pH -advantus 6.0 5.0-8. 0 Not Available [facility] [address] [facility] [address], [place], [address], 09/14/2021 10:41:46 09/15/19 22 09/14/2021 UA DIP CS ADVAN TUS protein -advantus NEGATI VE mg/dL negati ve Not Available [facility] [address] [place] [address], [place], [address], 09/14/2021 10:41:46 09/15/19 22 09/14/2021 UA DIP CS ADVAN TUS urobilinogen -advantus 0.2 normal Not Available [facility] [address] [place] [address], [place], [address], 09/14/2021 10:41:46 09/15/19 22 09/14/2021 UA DIP CS ADVAN TUS nitrites -advantus NEGATI VE negati ve Not Available [facility] [address] [place] [address], [place], [address], 09/14/2021 10:41:46 09/15/19 22 09/14/2021 UA DIP CS ADVAN TUS blood -advantus SMALL negati ve abnormal Not Available [facility] [address] [facility] [address], [place], [address], 09/14/2021 10:41:46 09/15/19 22 09/14/2021 UA DIP CS ADVAN TUS leukocytes -advantus NEGATI VE negati ve Not Available [facility] [address] [facility] [address], [place], [address], 09/14/2021 10:41:46 09/15/19 22 09/14/2021 UA DIP CS ADVAN TUS performed by Bibi Ruiz Not Available [facility] [address] [facility] [address], [place], [address], 09/14/2021 10:41:46 09/15/19 22 09/14/2021 UA DIP CS ADVAN TUS total urine volume (mL) 20cc /mL Not Available [facility] [address] [place] [address], [place], [address], 09/14/2021 10:41:46 09/15/19 22 09/14/2021 UA MICRO SCOPI C U-WBC 0 - 2 [hpf] 0 - 2 Not Available [facility] [address] [facility] [address], [place], [address], 09/14/2021 10:41:47 09/15/19 22 09/14/2021 UA MICRO SCOPI C U-RBC 0 - 2 [hpf] 0 - 2 Not Available [facility] [address] [facility] [address], [place], [address], 09/14/2021 10:41:47 09/15/19 22 09/14/2021 UA MICRO SCOPI C bacteria Small [hpf] negati ve abnormal Not Available [facility] [address] [place] [address], [place], [address], 09/14/2021 10:41:47 09/15/19 22 09/14/2021 UA MICRO SCOPI C squamous epi Small /lpf negati ve,sma ll Not Available [facility] [address] [place] [address], [place], [address], 09/14/2021 10:41:47 04/02/20 20 04/01/2020 XR, abdom en No observ ation record ed. [facility] [address] [facility] [place], [address], 04/02/2020 11:32:57 Result Notes None recorded. Problems Name Status Onset Date Resolution Date Notes Provider Name and Address Organization Details Recorded Time Chronic cystitis Active 2018 N30.20 : Chronic cystitis Not Available [facility] 0 23:40:26 Overactive bladder Active 2018 N32.81 : Bladder muscle dysfunction - overactive Not Available [facility] 0 23:40:26 Benign neoplastic disease Active 2019 [facility] 0 09:58:09 Tear film insufficiency Active 2019 Daphne felix [facility] 0 09:58:21 Gastroesophageal reflux disease Active 2019 [facility]aph[facility] felix [facility] 0 09:58:28 Hyperlipidemia Active 2019 Daphne felix [facility] 0 09:58:36 Heart disease Active 2022 Radhika felix [facility] 3 11:27:33 Problem Notes None recorded. Procedures Surgical History Date Name Laterality Status Provider Name and Address Organization Details Recorded Time 04/28/20 23 Sacral neuromodulation w/o reprogramming completed ELMA Blanco [address] [place] [address],[address], [place], [address], [facility] 04/28/2023 11:57:28 04/28/20 23 Bladder Scan completed Radhika felix [facility] 04/28/2023 11:36:21 12/07/19 23 Sacral neuromodulation w/o reprogramming completed Demetri felix [facility] 12/06/2022 11:08:45 04/09/20 22 Sacral Stimulator Reprogramming completed Demetri felix [facility] 04/09/2022 12:49:34 09/15/19 22 Bladder Scan completed Merry Ocampo null, [facility] 09/14/2021 10:25:15 09/15/19 22 Sacral neuromodulation w/o reprogramming completed Demetri Bosch null, [facility] 09/14/2021 10:15:12 08/03/19 22 Past Data Reviewed completed Charlotte Smith MD [address] [place] [address],[address], [place], [address], [facility] 08/03/2021 08:29:52 08/03/19 22 Bladder Scan completed Usha Corado null, [facility] 08/03/2021 11:50:03 11/27/19 21 Sacral Stimulator Reprogramming completed Demetri Bosch null, [facility] 11/27/2020 12:44:01 09/17/19 20 Implant neuroelectrodes completed Not Available [facility] 12/13/2019 18:11:39 11/29/19 19 Insert bladder catheter completed Not Available [facility] 12/13/2019 18:11:39 11/14/19 15 Colonoscopy completed Lucinda Nuñez null, [facility] 11/11/2020 11:57:08 11/29/19 09 Total hip arthroplasty completed Not Available [facility] 12/13/2019 18:11:39 11/29/19 00 Unlisted procedure breast completed Not Available [facility] 12/13/2019 18:11:39 Appendectomy add-on completed Not Available [facility] 12/13/2019 18:11:39 Imaging Results Imaging Date Name Status LastModified by Organiz ation Details LastModified Time 04/01/2020 XR, abdomen completed [facility] [address] [facility] [place], [address], 04/02/2020 11:32:57 Procedure Notes None recorded. Medical Equipment None Reported. Allergies Allergen ID Allergen Name Allergen Category Reaction Reaction Severity Criticality Documentation Date Start Date Code Code System Note Provider Name and Address Organization Details Recorded Time 19861108 Nitroimid azole (substanc e) medicatio n Not available Not available Not available 12/12/2019 74174 5001 SNOMED Not Available [facility] 0 23:50:45 640864 sulindac medicatio n Not available Not available Not available 12/12/2019 08207 RxNorm Not Available [facility] 0 23:50:45 734194 Medicinal product containin g penicilli n and acting as antibacte rial agent (product) medicatio n itching Not available Not available 12/12/2019 08691 05 SNOMED Not Available [facility] 0 23:50:45 817221 atorvasta tin medicatio n Not available Not available Not available 12/12/2019 70255 RxNorm Not Available [facility] 0 23:50:45 417052 tetracycl ine medicatio n Not available Not available Not available 12/12/2019 92457 RxNorm Not Available [facility] 0 23:50:45 693915 alendrona te sodium medicatio n Not available Not available Not available 12/12/201943050 2 RxNorm Not Available [facility] 0 23:50:45 436137 amoxicill in medicatio n Not available Not available Not available 12/12/2019 723 RxNorm Not Available [facility] 0 23:50:45 271075 oxybutyni n chloride Not available dizziness Not available Not available 12/12/2019 83674 RxNorm fatig ue Not Available [facility] 0 23:50:45 883979 aspirin medicatio n Not available Not available Not available 12/12/2019 1191 RxNorm Not Available [facility] 0 23:50:46 374805 losartan Not available Not available Not available Not available 12/12/2019 80283 RxNorm Not Available [facility] 0 23:50:46 811185 estrogens , conjugate d (HALFWAY) medicatio n Not available Not available Not available 12/12/2019 4099 RxNorm Not Available [facility] 0 23:50:46 688070 ciproflox acin medicatio n Not available Not available Not available 12/12/2019 2551 RxNorm Not Available [facility] 0 23:50:46 915818 hydrochlo rothiazid e medicatio n Not available Not available Not available 12/12/2019 5487 RxNorm Not Available [facility] 0 23:50:46 326123 metoprolo l Not available Not available Not available Not available 12/12/2019 6918 RxNorm Not Available [facility] 0 23:50:46 154963 naproxen medicatio n Not available Not available Not available 12/12/2019 7258 RxNorm Not Available [facility] 0 23:50:46 734240 clindamyc in Not available Not available Not available Not available 12/12/2019 2582 RxNorm Not Available [facility] 0 23:50:46 987831 Substance with sulfonami de structure and antibacte rial mechanism of action (substanc e) medicatio n Not available Not available Not available 11/11/2020 58105 8003 SNOMED Lucinda Vossen [facility] 1 11:56:30 737728 Myrbetriq medicatio n swelling Not available Not available 10/05/2021 10856 92 RxNorm RODERICK THOMSON [facility] 2 13:18:14 758868 Sambucus Elder[employer] y Immune medicatio n Not available Not available Not available 04/09/2022 Demetri Bosch [facility] 2 12:14:11 Medications Name [...] COVID-19 Ag Self Test kit REFER TO [facility] INCLUED IN PACKAGING 04/28 completed Not Available Not Available Not Available Vitals Date Recorded Body height Body mass index (BMI) Body weight Provider Name and Address Organization Details Last Updated DateTime 04/09/2022 154.94 cm 27.8 kg/m2 48848.08 g Demetri Bosch [facility] 04/09/2022 12:13:52 Date Recorded Body height Body mass index (BMI) Body weight Provider Name and Address Organization Details Last Updated DateTime 12/06/2022 154.94 cm 25.5 kg/m2 22780.97 g Demetri Bosch [facility] 12/06/2022 10:41:56 Date Recorded Body height Body mass index (BMI) Body weight Provider Name and Address Organization Details Last Updated DateTime 04/15/2020 157.48 cm 26.3 kg/m2 78382.3 g Daphne Montague [facility] 04/15/2020 10:05:09 Date Recorded Body height Body mass index (BMI) Body weight Provider Name and Address Organization Details Last Updated DateTime 04/28/2023 154.94 cm 25.5 kg/m2 90183.97 g Radhika Mathis [facility] 04/28/2023 11:25:35 Date Recorded Body height Body mass index (BMI) Body weight Provider Name and Address Organization Details Last Updated DateTime 05/13/2020 157.48 cm 26.3 kg/m2 97068.3 g Daphne Montague [facility] 05/13/2020 10:15:26 Date Recorded Body height Body mass index (BMI) Body weight Provider Name and Address Organization Details Last Updated DateTime 11/11/2020 157.48 cm 26.3 kg/m2 24128.3 g Lucinda Gordondhruv [facility] 11/11/2020 11:56:20 Date Recorded Body height Body mass index (BMI) Body weight Provider Name and Address Organization Details Last Updated DateTime 11/26/2020 158.75 cm 27.2 kg/m2 18472.45 zeus Demetri Danitza [facility] 11/26/2020 10:47:36 Date Recorded Body height Body mass index (BMI) Body weight Provider Name and Address Organization Details Last Updated DateTime 08/03/2021 158.75 cm 27.2 kg/m2 20351.45 zeus Usha Mak [facility] 08/03/2021 11:35:42 Date Recorded Body height Body mass index (BMI) Body weight Provider Name and Address Organization Details Last Updated DateTime 09/14/2021 158.75 cm 26.5 kg/m2 87117.08 zeus Demetri Danitza [facility] 09/14/2021 09:54:39 Date Recorded Body height Body mass index (BMI) Body weight Provider Name and Address Organization Details Last Updated DateTime 09/14/2021 158.75 cm 26.5 kg/m2 29404.08 zeus Merry Ocampo [facility] 09/14/2021 10:08:57 Date Recorded Body height Body mass index (BMI) Body weight Provider Name and Address Organization Details Last Updated DateTime 11/12/2021 154.94 cm 27.8 kg/m2 45990.08 zeus DonovanMerrygabriela Ocampo [facility] 11/12/2021 11:32:20 Social History Question Answer Notes LastModified by Organizat ion Details LastModified Time Tobacco Smoking Status Never Smoker Not Available [facility] 12/13/2019 02:00:45 What Is Your Level Of Alcohol Consumption? None Information not available 09/14/2021 What Is Your Level Of Caffeine Consumption? Heavy Information not available 09/14/2021 Are You Currently Employed? No Information not available 09/14/2021 Race White Information n ot available 12/13/2019 Ethnicity Not /Lat vane Information not available 09/14/2021 Preferred Language Georgian Information not available 09/14/2021 Recreational Drug Use No Information not available 09/14/2021 Could You Be ? No Information not available 09/14/2021 Marital Status Informati on not available 12/13/2019 What Was The Date Of Your Most Recent Tobacco Screening? 12/06/2022 [email or web address] Information not available 12/06/2022 What Is Your [...] Arthritis:Grandmother Heart Disease:Mother Medical History Condition Response Sexually Transmitted Infection N Diabetes N Bleeding Disorder Y Other N High [...] conjugate PCV 13 07/04/2017 completed STEPHEN Germain [facility] 04/28/2023 11:25:40 Past Encounters Encounter ID Performer Location Encounter Start Date Encounter Closed Date Diagnosis/Indication Diagnosis SNOMED-CT Code [id number] Charlotte [facility] [address] [place] [address] 04/15/2020 10:02:52 04/25/2020 12:54:57 Overactive bladder [id number] Urge incon tinence of urine [id number] Charlotte Smith MD [facility] [address],[place] [address] [place] [address] 05/13/2020 10:14:48 05/13/2020 14:22:18 Overactive bladder [id number] Urge incon tinence of urine [id number] History of urinary tract infection [id number] Charlotte Smith MD [facility] [place] [address] [facility],[place] [address] [place] [address] 11/11/2020 11:46:55 11/11/2020 13:40:18 Overactive bladder [id number] Urge incon tinence of urine [id number] [facility] [address] 11/26/2020 10:15:12 12/02/2020 15:37:48 Overactive bladder [id number] Nocturia [id number] [facility] [address] 08/03/2021 11:31:50 08/03/2021 12:09:22 Overactive bladder [id number] Urge incon tinence of urine [id number] Nocturia [id number] [id number] [facility] [address] [place] [address] 09/14/2021 10:06:36 09/14/2021 14:16:12 Overactive bladder [id number] Urge incon tinence of urine [id number] Nocturia [id number] [facility] [address] [place] [address] 09/14/2021 09:30:06 09/14/2021 14:31:59 Overactive bladder [id number] ELMA Blanco [facility] [address] [place] [address] 11/12/2021 11:29:59 11/12/2021 12:37:25 Overactive bladder [id number] Urge incon tinence of urine 87821202 Nocturia [id number] Demetri Bosch [facility] [address] [place] [phone] 04/09/2022 11:43:46 04/09/2022 13:38:20 Overactive bladder [id number] Demetri Bosch [facility] [address] [place] [phone] 12/06/2022 10:28:13 12/06/2022 11:24:29 Overactive bladder [id number] ELMA Blanco [facility] [address] [place] [id number] 04/28/2023 11:22:38 04/28/2023 12:04:03 Overactive bladder [id number] Urge incon tinence of urine [id number] Nocturia [id number] Health Concerns Section Related Observation LastModified by Organization Detai ls LastModified Time None Recorded Concern Status LastModified by Organization Details LastModified Time None Recorded Advance Directives Directive None Recorded Payers Encounter Date Sequence Insurance Name Policy Number Policy Betancourt Covered Member ID Betancourt Member ID Guarantor Name 04/28/2023 1 [place] [employer] Patsyfrances Beltrán [id number] Patsy Aramis Wood 04/28/2023 2 [facility] [id number] Patsyfrances Beltrán [id number] Patsy Aramis Wood 12/06/2022 1 [place] [employer] [facility] Patsy A Wood [id number] Patsy A Wood 12/06/2022 2 [facility] [id number] Patsy Aramis Beltrán [id number] Patsy Aramis Wood 04/09/2022 1 [place] [employer] [facility] Patsyfrances Beltrán [id number] Patsy A Wood 04/09/2022 2 [place] [id number] Patsy A Wood [id number] Patsy A Wood 11/12/2021 1 [place] [employer] Patsy A Wood [id number] Patsy A Wood 11/12/2021 2 [place] [id number] Patsy A Wood [id number] Patsy A Wood 09/14/2021 1 [place] [employer] Patsy A Wood [id number] Patsy A Wood 09/14/2021 2 [place] [id number] Patsy A Wood [id number] Patsy A Wood 09/14/2021 1 [place] [employer] [facility] Patsy A Wood [id number] Patsy A Wood 09/14/2021 2 [place] [id number] Patsy A Wood [id number] Patsy A Wood 08/03/2021 1 [place] [employer] Patsy A Wood [id number] Patsy A Wood 08/03/2021 2 [place] [id number] Patsy A Wood [id number] Patsy A Wood 11/26/2020 1 [place] [employer] Patsy A Wood [id number] Patsy A Wood 11/26/2020 2 [place] [id number] Patsy A Wood [id number] Patsy A Wood 11/11/2020 1 [place] [employer] P[place]y A Wood [id number] Patsy A Wood 11/11/2020 2 [place] [id number] Patsy A Wood [id number] Patsy A Wood 05/13/2020 1 [place] [employer] Patsy A Wood [id number] Patsy A Wood 05/13/2020 2 [place] [id number] Patsy A Wood [id number] P[employer]y A Wood 04/15/2020 1 [place] [employer] Patsy A Wood [id number] Patsy Aramis Jerel 04/15/2020 2 [place] [id number] Patsy Beltrán [id number] Patsy Aramis Jerel Notes Date Note Type Note Provider Name and Address Organization Details Recorded Time 04/15/2020 text/html HPI Notes: sp interstim lead and IPG 9-29 doing well on program 3 vagianl was concerned as it was timing out Charlotte Smith MD [address] [place] [address],[address] [place] [address], [phone], [facility] 04/15/2020 10:12:37 05/13/2020 text/html [...] to program 4 vagianl. Charlotte Smith MD [address] [place] [address],[address], [address], [facility] 05/13/2020 10:32:36 11/11/2020 text/html [...] be almost every hour Charlotte Smith MD [address] [place] [address],[address], [place], [address], [facility] 11/11/2020 12:16:47 08/03/2021 text/html [...] on Lasix as needed Charlotte Smith MD [address] [place] [address],[address], [address], [facility] 08/03/2021 11:57:51 09/14/2021 text/html HPI Notes: : Patient presents to follow up for overactive bladder (OAB). Managed with interstim. Patient saw Demerti for reprogramming prior to appointment today. Improvement [...] to be almost every hour. ELMA Blanco [address] [place] [address],[address], [place], [address], [facility] 09/14/2021 10:49:41 11/12/2021 text/html [...] with sjorgrens. This visit was conducted using [employer] phone technology. Prior to conducting our health visit, the patient and I discussed the risks, benefits and alternatives to phone visits. The patient elected to proceed with the phone visit. ELMA Blanco [address] [place] [address],[address], [address], [facility] 11/12/2021 11:50:24 12/06/2022 text/html [...] changed Rate chaanged Resolution changed Demetri felix, [facility] 12/06/2022 11:08:58 04/28/2023 text/html HPI [...] to be almost every hour. ELMA Blanco [address] [place] [address],[address], [place], [address], [facility] 04/28/2023 11:58:40 OBGyn Episode No OBEpisode recorded.
== END 2023-12-08 11:26 | disposition home or self-care (01) ==
LOC: WOUND 11:25
PROVIDERS: PCP Physician Assistant Medical; Visit Provider Nurse Practitioner Family
DX: I87.2 Venous insufficiency (chronic) (peripheral) (principal); I73.9 Peripheral vascular disease, unspecified; L97.322 Non-pressure chronic ulcer of left ankle with fat layer exposed; R73.03 Prediabetes; Z79.52 Long term (current) use of systemic steroids
CPT/HCPCS: 87070; 87077; 87184; G0463

== ENCOUNTER 2023-12-13 13:18 | Outpatient (CLI) | payer OTHER, SELFPAY ==
--- OUTSIDE RECORDS SUMMARY | 2023-12-13 13:22 | XMS_ITS | Clinical Summary ---
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 [...] Date Anticoagulation monitoring, INR range 2-3 [Z79.01]; [place] Target 2.5-3.0 12/06/2016 1 Pessary maintenance 02/25/2016 09/28/19 20 Anticoagulation monitoring, goal range 2.0-2.6 09/19/2013 01/09/2018 Abnormal stress test 11/17/2010 011 Routine general medical exam ination at a health care facility 07/12/2009 09/28/2019 Overview: Normal CT angiogram 11/2010 Hip pain 05/06/2008 07/09/2009 Onychomycosis 05/06/2008 08/27/2008 HX OF VENOUS THROMBOSIS AND EMBOLISM 11/09/2006 12/06/2012 Bilateral pulmonary embolism 10/11/2006 11/18/2017 AFTERCARE, LONG-TERM USE, [place] DICATIONS NEC-PLAQUENIL 10/22/2003 Encounters Date Type Department Care Team Description 12/12/[address] [facility] [phone] Unknown, Doctor 12/09/2023 Telephone [facility] [address] [place] [address] Charlotte Springer MD Care Coordination 12/05/2023 11:00 AM CDT Office Visit [facility] [address] [place] [address] Charlotte Springer MD Follow Up (LLE wound follow up ) 12/05/2023 8:56 AM CDT - 12/05/2023 11:59 PM CDT Hospital Encounter [facility] [address] [place] [address] Charlotte Springer MD Venous insufficiency; Venous stasis ulcer of ankle, left (HC) 12/05/2023 Travel 11/23/2023 9:30 AM CDT Office Visit [facility] [address] [place] [address] Charlotte Springer MD Ankle Pain/problem (L medial malleolar ulcer) 11/23/2023 6:47 AM CDT - 11/23/2023 11:59 PM CDT Hospital Encounter [facility] [address] [place] [address] Charlotte Springer MD PAD (peripheral artery disease) (HC) 11/22/2023 Travel 09/29/2023 9:00 AM CDT Orders Only [facility] [address] [facility] [place] [address] Lab, Farm Outside Order (Kd Restrepo MD PA 07/07/2023) 09/29/2023 Travel from Last 3 Months Immunizations Name Administration Dates Next Due AMB INFLUENZA IIV3 (AGE 65+ YRS) PF (Flu Clinic Only) 03/23/2017 AMB Influenza, IIV3 (Age >=3 years) Preserve Free (Flu Clinic Only) 04/08/2009 AMB Influenza, IIV3 (Age >=3 years)(Flu Clinic Only) 04/06/2013,04/16/2011,04/24/2008 COVID-19 vaccine (clinovo 30mcg/0.3mL) PF, MDV 09/02/2020,08/12/2020 Influenza A (H1N1), [...] Outcome GA Total Labor Labor/2nd/3rd Weight Sex Type Anes PTL Toña A1 A5 Name Clin 1960 Term M Vag Living 1962 Term M Vag Living Last Filed Vital Signs Vital Sign Reading [...] Description 02/28/2024 10:00 AM CDT Office Visit [facility] [address] [address] [place] [address] [place] [address] Health Maintenance Due Date Last Done Comments Depression screening for age 12+ 06/18/2021 06/18/2020, 06/18/2020, 06/18/2020, Additional history exists Medicare Wellness for age 65+ 06/19/2021, 06/18/2019, 06/28/2018, Additional history exists COVID-19 vaccine series ( season) 2023 06/13/2023, 04/30/2022, 04/14/2021, Additional history exists Influenza for age 65+ [...] for age 65+ Completed 2018, 01/13/2016, 12/18/2010 Medical Devices Implanted Type Area Nozzle Cement Sprayer Helper Device Identifier Shelf Expiration Date Model / Serial / Lot Lead Kit 4.32mm Spacing 28cm Length Interstim - [id number] Implanted:Qty: 1 on 04/01/2020 by Charlotte Smith MD at [facility] N/A: Sacrum [employer] Pain Therapy 09/30/2021 [id number] / / [id number] Stimulator 7.7mm 14cc Interstim Ii - [id number] Implanted:Qty: 1 on 04/01/2020 by Charlotte Smith MD at [facility] N/A: Sacrum [employer] Pain Therapy 03/31/2021 [id number] / [id number] / Description:PIN [id number] Procedures Procedure Name Priority Date/Time Associated Diagnosis [...] 2 SITES AXIAL Routine 07/02/2019 11:48 AM SOLDERER TORCH Osteopenia of multiple sites from Last 3 [...] US VENOUS INSUFFICIENCY LOWER EXTREMITY BILATERAL LOCATION: [facility] DATE: 12/05/2023 INDICATION: Lower [...] when greater than 600 ms flow reversal. Fifth Hand vein reflux reported as greater than 350 [...] a result of the Cures Act, medical imagingexams and procedure reports are released immediately into your electronicmedical record. You may view this report before your referring provider.If you have questions, please contact your health care provider. EXAM: US VENOUS INSUFFICIENCY LOWER EXTREMITY BILATERAL LOCATION: [facility] DATE: 12/05/2023 INDICATION: Lower [...] reported when greater than 600ms flow reversal. Fifth Hand vein reflux reported as greater than 350 [...] level of the leftlower extremity wound. Charlotte Springer MD US * US ANKLE BRACHIAL INDEX BILATERAL (11/23/2023 8:37 AM CDT) Anatomical Region Laterality Modality ANKLES, ANKLE L, ANKLE R Ultraso und 11/23/2023 7:17 AM CDT Narrative 11/23/2023 12:17 PM CDT VASCULAR ULTRASOUND REPORT RODERICK HEATON Accession#: ?? [id number] : ?1940 ??Study Date: ?? 11/23/2023 7:17:22 AM Age: ?83 years ?? Tech: ? KBN/CRK Gender: F ?Referring MD: CHARLOTTE SPRINGER Site: [facility] Study performed: ?Lower extremity resting [...] ? Index +-----+ +--------+ +-----+ 1.24 ?241 ?SEGMENT BLOCK LAYER ?107 ? 0.55 +-----+ +--------+ +-----+ 1.23 ?238 ?DPA ?147 ? 0.76 +-----+ +--------+ +-----+ 0.63 ?122 ? Digit 1 ?45 ? 0.23 +-----+ +--------+ +-----+ Wang Dela Cruz MD. Electronically signed on 11/23/2023 12:17:56 PM This study was performed and interpreted by a service accredited by the Intersocietal Accreditation Commission (IAC/Vascular), www.intersocietal.org/vascular Report generated by [employer]. ??Final ?? Procedure Note Wang Dela Cruz MD - 11/23/2023 VASCULAR ULTRASOUND REPORT RODERICK HEATON : 1940 Study Date: 11/23/2023 7:17:22 AM Age: 83 years Tech: ARISTIDES/JOHNNY Gender: F Referring MD: CHARLOTTE SPRINGER Site: [facility] Vascular [facility] Study performed: Lower extremity resting MINOR, (bilateral). [...] 194 Index +-----+ +--------+ +-----+ 1.24 241 SEGMENT BLOCK LAYER 107 0.55 +-----+ +--------+ +-----+ 1.23 238 DPA 147 0.76 +-----+ +--------+ +-----+ 0.63 122 Digit 1 45 0.23 +-----+ +--------+ +-----+ Wang Dela Cruz MD. Electronically signed on 11/23/2023 12:17:56 PM This study was performed and interpreted by a service accredited by theIntersocietal Accreditation Commission (IAC/Vascular),www.intersocietal.org/vascular Report generated by [employer]. Final Charlotte Springer MD US * US ARTERIAL LOWER EXTREMITY BILATERAL (11/23/2023 8:37 AM CDT) Anatomical Region Laterality Modality LEGS, LEG L, LEG R Ultrasound 11/23/2023 7:26 AM CDT Narrative 11/23/2023 12:22 PM CDT VASCULAR ULTRASOUND REPORT RODERICK HEATON Accession#: ?? [id number] : ?1940 ??Study Date: ?? 11/23/2023 7:26:56 AM Age: ?83 years ?? Tech: ? KBN/CRK Gender: F ?Referring MD: CHARLOTTE SPRINGER Site: [facility] Study performed: ?Lower extremity duplex US, [...] DST ? 104 ? +--------+ + +-----+ WHEEL INSPECTOR DST ? 111 ? +--------+ + +-----+ PFA ? 88 ? +--------+ + +-----+ SFA PRX ? 111 ? +--------+ + +-----+ SFA MID ? 66 ? +--------+ + +-----+ SFA DST ? 415 ? 64 ? 6.5 ?? +--------+ + +-----+ COLLIN PRX ? 101 ? +--------+ + +-----+ COLLIN DST ? 41 ? +--------+ + +-----+ SEGMENT BLOCK LAYER DST ? 80 ? +--------+ + +-----+ KAREN DST ? 38 ? +--------+ + +-----+ LAXMI DST -179 retro ? +--------+ + +-----+ DPA ?-34 retro ? +--------+ + +-----+ +--------+ + +-----+ LEFT ? Velocity cm/s PRE ? Ratio ? Velocity cm/s ? Phasicity ? +--------+ + +-----+ EIA DST ? 100 ? +--------+ + +-----+ WHEEL INSPECTOR DST ? 98 ? +--------+ + +-----+ PFA ? 73 ? +--------+ + +-----+ SFA PRX ? 100 ? +--------+ + +-----+ SFA MID ? 52 ? +--------+ + +-----+ SFA DST ? 44 ? +--------+ + +-----+ COLLIN PRX ? 674 ? 55 ? 12.3 +--------+ + +-----+ COLLIN DST ? 27 ? +--------+ + +-----+ SEGMENT BLOCK LAYER DST ? 11 ? +--------+ + +-----+ [...] Accreditation Commission (IAC/Vascular), www.intersocietal.org/vascular Report generated by [employer]. ??Final ?? Procedure Note Wang Dela Cruz MD - 11/23/2023 VASCULAR ULTRASOUND REPORT RODERICK HEATON : 1940 Study Date: 11/23/2023 7:26:56 AM Age: 83 years Tech: ARISTIDES/JOHNNY Gender: F Referring MD: CHARLOTTE SPRINGER Site: [facility] Study performed: Lower extremity duplex US, [...] +-----+ EIA DST 104 +--------+ + +-----+ WHEEL INSPECTOR DST 111 +--------+ + +-----+ PFA 88 +--------+ + +-----+ SFA PRX 111 +--------+ + +-----+ SFA MID 66 +--------+ + +-----+ SFA DST 415 64 6.5 +--------+ + +-----+ COLLIN PRX 101 +--------+ + +-----+ COLLIN DST 41 +--------+ + +-----+ SEGMENT BLOCK LAYER DST 80 +--------+ + +-----+ KAREN DST 38 +--------+ + +-----+ LAXMI DST -179 retro +--------+ + +-----+ DPA -34 retro +--------+ + +-----+ +--------+ + +-----+ LEFT Velocity cm/s PRE Ratio Velocity cm/s Phasicity +--------+ + +-----+ EIA DST 100 +--------+ + +-----+ WHEEL INSPECTOR DST 98 +--------+ + +-----+ PFA 73 +--------+ + +-----+ SFA PRX 100 +--------+ + +-----+ SFA MID 52 +--------+ + +-----+ SFA DST 44 +--------+ + +-----+ COLLIN PRX 674 55 12.3 +--------+ + +-----+ COLLIN DST 27 +--------+ + +-----+ SEGMENT BLOCK LAYER DST 11 +--------+ + +-----+ LAXMI DST [...] theIntersocietal Accreditation Commission (IAC/Vascular),www.intersocietal.org/vascular Report generated by [employer]. Final Charlotte Springer MD US * TSH (09/29/2023 9:04 AM CDT) TSH 1.48 0.27 - 4.20 uIU/mL 09/29/2023 5:48 PM CDT [facility] Blood BLOOD SPECIMEN / Unknown Venipuncture / Unknown 09/29/2023 9:04 AM CDT 09/29/2023 9:04 AM CDT [facility] - 09/29/2023 5:48 PM CDT In Adults, TSH values between 5.00 and 10.00 uIU/ml do not necessarily indicate the presence of Hypothyroidism. Correlation with clinical findings such as presence of goiter and/or Thyroperoxidase (TPO) Antibody may be helpful. For more information please refer to SUZETTE 2004; 291: 228-238. Rakel Connor DO CHEMISTRY [facility] [address] [place] [address], * (ABNORMAL) T4,FREE (09/29/2023 9:04 AM CDT) T4,FREE 1.78(H) 0.93 - 1.70 ng/dL 09/29/2023 5:48 PM CDT [facility] Blood BLOOD SPECIMEN / Unknown Venipuncture / Unknown 09/29/2023 9:04 AM CDT 09/29/2023 9:04 AM CDT Rakel Connor DO CHEMISTRY [facility] [address] [place] [address], * (ABNORMAL) XR DXA BONE DENSITY 2 SITES AXIAL (07/02/2019 11:48 AM SOLDERER TORCH) Anatomical Region Laterality Modality Spine, HIPS, HIPL, HIPR Other Narrative 07/06/2019 11:01 AM SOLDERER TORCH Please see scanned document for results of this study. 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
--- OUTSIDE RECORDS SUMMARY | 2023-12-13 13:22 | XMS_ITS | Continuity of Care Document ---
Author Organization [facility] Address [address] [place] [address] Phone Care Team Providers Care Director Of Customer Service Name Role Phone Usha iDckinson Unavailable Unavailable Allergies, Adverse Reactions, Alerts Substance [...] on Encounter [facility], [address], [facility] [place] [place], [id number], [place] tel:[phone] No Information [facility] [place] [facility]. [facility], [address], [place], [place], [id number] , [place]. [phone] Office/Outpat ient Visit,Est, Mod [facility], [address], [place], [place], [id number], [place] tel:[phone] [facility] Other forms of scoliosis, thoracolumbar regionL2 wedge compression fracture, initial encounter for closed fractureSpondy lolisthesis, lumbar region 0 Puente Usha. [facility], [address], [place], [place], [id number] , [place]. tel:[phone] Referring Provider: Rakel Arvizu, [facility] [address] [place], [address]. tel:[phone] Office/Outpat ient Visit,Est, Mod [facility], [address], [facility] [place], [id number], [place] tel:[phone] [facility] L2 wedge compression fracture, initial encounter for closed fractureOther forms of scoliosis, thoracolumbar regionSpondylo listhesis, lumbar region 0 Kwame Kerr. [facility], [address], [place], [place], [id number] , . tel:[phone] Referring Provider: Rakel Arvizu [employer] [address] [place], [address]. tel:[phone] Office/Outpat ient Visit,[facility], [address], [facility] [place], [id number], [place] tel:[phone] [facility] [place] L2 wedge compression fracture, initial encounter for closed fractureOther forms of scoliosis, thoracolumbar regionSpondylo listhesis, lumbar region 0 Kwame Kerr. [facility], [address], [place], [place], [id number] , [place]. tel:[phone] Referring Provider: Rakel Arvizu [employer] [address] [place], [address]. tel:[phone] Family History Family Member Type Diagnosis Age At Onset No Information Payers Payer name Insurance type Covered democrat ID Authoralethaa tishannon(s) Medicare MB [id number] [facility] [id number] [facility] [id number] Social History Type Description Quantity Date Captured [...]
[2023-12-13 13:48] LABS: Basophils Absolute Auto 0.02 K/uL (0.00-0.30); Basophils Percent Auto 0.2 % (0.0-3.0); Eosinophils Percent Auto 2.4 % (0.0-7.0); Hematocrit 41.7 % (33.0-51.0); Hemoglobin* 13.2 gm/dL (12.0-16.0); Immature Granulocytes Abs Auto 0.07 K/uL (0.00-0.30); Immature Granulocytes Pct Auto 0.8 %; Lymphocytes Percent Auto 12.6 % (20-44); Mean Corpuscular HGB Conc 32 gm/dL (32-36); Mean Corpuscular Hemoglobin 31 pg (26-34); Mean Corpuscular Volume 99 fL (80-100); Monocytes Percent Auto 10.1 % (0.0-11.0); Neutrophils Percent Auto 73.9 % (42.0-72.0); Platelet Count* 228 K/uL (140-440); Red Blood Count 4.21 m/uL (4.00-5.20); White Blood Count* 8.38 K/uL (4.50-11.00)
[2023-12-13 13:57] LABS: Slide Review Reflex No
[2023-12-13 14:09] LABS: Chloride* 102 mmol/L (96-114); Potassium* 3.9 mmol/L (3.6-5.1); Sodium* 139 mmol/L (135-149)
[2023-12-13 14:12] LABS: Anion Gap 7 mEq/L (7-15); Blood Urea Nitrogen* 27 mg/dL (7-30); Carbon Dioxide* 30 mmol/L (20-32); Cholesterol* 204 mg/dL (90-199); Estimated Glomerular Filt Rate 56 ml/min; Glucose* 71 mg/dL (60-115); Triglycerides* 96 mg/dL (40-149)
[2023-12-13 14:13] LABS: Calcium* 9.1 mg/dL (8.4-10.6); HDL Cholesterol* 59 mg/dL (>=50); LDL Cholesterol Calculated 126 mg/dL (<100)
== END 2023-12-13 13:19 | disposition home or self-care (01) ==
LOC: NPINS 13:20
PROVIDERS: PCP Physician Assistant Medical
DX: I87.2 Venous insufficiency (chronic) (peripheral) (principal)
CPT/HCPCS: 80048; 80061; 85025

== ENCOUNTER 2023-12-16 08:55 | Outpatient (CLI) | payer OTHER, SELFPAY ==
--- OUTSIDE RECORDS SUMMARY | 2023-12-16 08:57 | XMS_ITS | Continuity of Care Document ---
Author Organization [facility] Address [address] [place] [address] Phone Care Team Providers Care Hydro Technician Name Role Phone Helder Medina MD [...] Antibodies Dna Antibody, Single Strand Dna Antibody, [place] Nuclear Antigen Antibodies Rheumatoid Factor, IGM Rheumatoid Factor, IGG, IGA Advance Directives Directive Yes / No Effective Date File Name No Information Encounters Encounter Description Practice Location Reason(s) For Visit Diagnoses Date Provider Providers Copied on Encounter [facility], [address], [place], [address], [place] tel:[phone] [facility], No Information Apr-- 4 Adam Pendleton. [address], [place], [address], [place]. tel:[phone] Referring Provider: Helder Jain, [address], [place], [address]. tel:[phone] Office/Outpa tient Visit, Est [facility], [address], [place], [address], [place] tel:[phone] [facility], Sjogren syndrome w/ inflammatory arthritisPain in left foot Apr- 0 4 Lebedoff Helder. [address], [place], [address], [place]. tel:[phone] Referring Provider: Helder Jain, [address], [place], [address]. tel:[phone] Office/Outpa tient Visit, Est [facility], [address], [place], [address], [place] tel:[phone] [facility], Sjogren syndrome w/ inflammatory arthritisPrim mauri osteoarthriti s, right hand 3 Lebedoff Helder. [address], [place], [address], [place]. tel:[phone] Referring Provider: Helder Jain, [address], [place], [address]. tel:[phone] Office/Outpa tient Visit, Est [facility], [address], [place], [address], [place] tel:[phone] [facility], Sicca syndrome, unspecifiedWe akness November- 0 3 Lebedoff Helder. [address], [place], [address], [place]. tel:[phone] Referring Provider: Helder Jain, [address], [place], [address]. tel:[phone] Office/Outpa tient Visit, Est [facility], [address], [place], [address], [place] tel:[phone] [facility], Sicca syndrome, unspecifiedPa in in left shoulder Apr- 2 Adam Pendleton. [address], [place], [address], [place]. tel:[phone] Referring Provider: Helder Jain, [address], [place], [address]. tel:[phone] Office/Outpa tient Visit, Est [facility], [address], [place], [address], [place] tel:[phone] [facility], Sicca syndrome, unspecifiedDy spnea Oct- 2 Adam Pendleton. [address], [place], [address], [place]. tel:[phone] Referring Provider: Helder Jain, [address], [place], [address]. tel:[phone] Office/Outpa tient Visit, Est [facility], [address], [place], [address], [place] tel:[phone] [facility], Sicca syndrome, unspecifiedOt her alf (current) drug therapyPrimar y OA of right handDyspnea Apr- 1 Adam Pendleton. [address], [place], [address], [place]. tel:[phone] Referring Provider: Helder Jain, [address], [place], [address]. tel:[phone] Office/Outpa tient Visit, New [facility], [address], [place], [address], [place] tel:[phone] [facility], Sicca syndrome, unspecifiedPa in in rt ankleOther alf (current) drug therapy 1 Adam Pendleton. [address], [place], [address], [place]. tel:[phone] Referring Provider: Helder Medina G, [address], [place], [address]. tel:[phone] [facility], [address], [place], [address], [place] tel:[phone] [facility] No Information 1 Mo Sullivan. [facility] [address] [place] [address] [address], [place], [address], [place]. tel:[phone] Family History Family Member Type Diagnosis Age At Onset No Information Immunizations Vaccine Date Status Comments COVID-19 Moderna administered Source: Ot er Provider COVID-19 Pfizer administered Note: 1 ; Source: Other Provider Payers Payer name Insurance type Covered green party ID Authoriza tion(s) [employer] Medicare Adv [id number] MB [id number] Social History Type Description Quantity Date Captured [...] Order Fo ot X-ray; Complete (3+ views) (79477), Sent on: Sent History Of Present Illness [...]
--- OUTSIDE RECORDS SUMMARY | 2023-12-16 08:57 | XMS_ITS | Clinical Summary ---
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 09/27 Prediabetes [...] Date Anticoagulation monitoring, INR range 2-3 [Z79.01]; [facility] 2.5-3.0 12/06/2016 1 Pessary maintenance 02/25/2016 [...] Department Care Team Description 12/12/2023 Lab Requisition [facility] [phone] Unknown, Doctor 12/09/2023 Telephone [facility] [address] [place] [address] Charlotte Springer MD Care Coordination 12/05/2023 11:00 AM CDT Office Visit [facility] [address] [place] [address] Charlotte Springer MD Follow Up (LLE wound follow up ) 12/05/2023 8:56 AM CDT - 12/05/2023 11:59 PM CDT Hospital Encounter [facility] [address] [place] [address] Charlotte Springer MD Venous insufficiency; Venous stasis ulcer of ankle, left (HC) 12/05/2023 Travel 11/23/2023 9:30 AM CDT Office Visit [facility] [address] [place] [phone] Charlotte Springer MD Ankle Pain/problem (L medial malleolar ulcer) 11/23/2023 6:47 AM CDT - 11/23/2023 11:59 PM CDT Hospital Encounter [facility] [address] [place] [address] Charlotte Springer MD PAD (peripheral artery disease) (HC) 11/22/2023 Travel 09/29/2023 9:00 AM CDT Orders Only [facility] [address] [facility] [place] [place] [address] Lab, Farm Outside Order (Kd Restrepo MD PA 07/07/2023) 09/29/2023 Travel from Last 3 Months Immunizations Name Administration Dates Next Due AMB INFLUENZA IIV3 (AGE 65+ YRS) PF (Flu Clinic Only) 03/23/2017 AMB Influenza, IIV3 (Age >=3 years) Preserve Free (Flu Clinic Only) 04/08/2009 AMB Influenza, IIV3 (Age >=3 years)(Flu Clinic Only) 04/06/2013,04/16/2011,04/24/2008 COVID-19 vaccine ([employer] 30mcg/0.3mL) PF, MDV 09/02/2020,08/12/2020 Influenza A (H1N1), [...] Description 02/28/2024 10:00 AM CDT Office Visit [facility] [address] [place] [address] [place] [address] [place] [address] Health Maintenance Due Date Last Done Comments [...] 01/13/2016, 12/18/2010 Medical Devices Implanted Type Area Dehydrogenation Converter Helper Device Identifier Shelf Expiration Date Model / Serial / Lot Lead Kit 4.32mm Spacing 28cm Length Interstim - [id number] Implanted:Qty: 1 on 04/01/2020 by Charlotte Smtih MD at [facility] N/A: Sacrum [employer] Pain Therapy 09/30/2021 [id number] / / [id number] Stimulator 7.7mm 14cc Interstim Ii - [id number] Implanted:Qty: 1 on 04/01/2020 by Charlotte Smith MD at [facility] N/A: Sacrum [employer] Pain Therapy 03/31/2021 [id number] / [id number] / Description:PIN [id number] Procedures Procedure Name Priority Date/Time Associated Diagnosis Comments REFERRAL ID/SUSC,NONURINE Routine 12/08/2023 11:47 AM CDT US VENOUS INSUFFICIENCY LOWER EXTREMITY BILATERAL NBA [...] 2 SITES AXIAL Routine 07/02/2019 11:48 AM 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 You may view this report before your referring provider. If you have questions, please contact your health care provider. EXAM: US VENOUS INSUFFICIENCY LOWER EXTREMITY BILATERAL LOCATION: [facility] DATE: 12/05/2023 INDICATION: Lower [...] when greater than 600 ms flow reversal. Hydrogeologist vein reflux reported as greater than 350 [...] US VENOUS INSUFFICIENCY LOWER EXTREMITY BILATERAL LOCATION: [facility] DATE: 12/05/2023 INDICATION: Lower [...] reported when greater than 600ms flow reversal. Hydrogeologist vein reflux reported as greater than 350 [...] VASCULAR ULTRASOUND REPORT RODERICK HEATON Accession#: ?? [id number] : ?1940 ??Study Date: ?? 11/23/2023 7:17:22 AM Age: ?83 years ?? Tech: ? KBN/CRK Gender: F ?Referring MD: CHARLOTTE SPRINGER Site: [facility] Study performed: ?Lower extremity resting MINOR, (bilateral). [...] ? Index +-----+ +--------+ +-----+ 1.24 ?241 ?REINFORCING STEEL MACHINE OPERATOR ?107 ? 0.55 +-----+ +--------+ +-----+ 1.23 ?238 ?DPA ?147 ? 0.76 +-----+ +--------+ +-----+ 0.63 ?122 ? Digit 1 ?45 ? 0.23 +-----+ +--------+ +-----+ Wang Dela Cruz MD. Electronically signed on 11/23/2023 12:17:56 PM This study was performed and interpreted by a service accredited by the Intersocietal Accreditation Commission (IAC/Vascular), www.intersocietal.org/vascular Report generated by [employer]. ??Final ?? Procedure Note Wang Dela Cruz MD - 11/23/2023 VASCULAR ULTRASOUND REPORT RODERICK HEATON : 1940 Study Date: 11/23/2023 7:17:22 AM Age: 83 years Tech: ARISTIDES/JOHNNY Gender: F Referring MD: CHARLOTTE SPRINGER Site: [facility] Study performed: Lower extremity resting MINOR, (bilateral). [...] 194 Index +-----+ +--------+ +-----+ 1.24 241 REINFORCING STEEL MACHINE OPERATOR 107 0.55 +-----+ +--------+ +-----+ 1.23 238 DPA 147 0.76 +-----+ +--------+ +-----+ 0.63 122 Digit 1 45 0.23 +-----+ +--------+ +-----+ Wang Dela Cruz MD. Electronically signed on 11/23/2023 12:17:56 PM This study was performed and interpreted by a service accredited by theIntersocietal Accreditation Commission (IAC/Vascular),www.intersocietal.org/vascular Report generated by [employer]. Final Charlotte Springer MD US * US ARTERIAL LOWER EXTREMITY BILATERAL (11/23/2023 8:37 AM CDT) Anatomical Region Laterality Modality LEGS, LEG L, LEG R Ultrasound 11/23/2023 7:26 AM CDT Narrative 11/23/2023 12:22 PM CDT VASCULAR ULTRASOUND REPORT RODERICK HEATON Accession#: ?? [id number] : ?1940 ??Study Date: ?? 11/23/2023 7:26:56 AM Age: ?83 years ?? Tech: ? KBN/SILVIAK Gender: F ?Referring MD: CHARLOTTE SPRINGER Site: [facility] Study performed: ?Lower extremity duplex US, (bilateral). [...] DST ? 104 ? +--------+ + +-----+ HEALTH INSURANCE SALES AGENT DST ? 111 ? +--------+ + +-----+ PFA ? 88 ? +--------+ + +-----+ SFA PRX ? 111 ? +--------+ + +-----+ SFA MID ? 66 ? +--------+ + +-----+ SFA DST ? 415 ? 64 ? 6.5 ?? +--------+ + +-----+ COLLIN PRX ? 101 ? +--------+ + +-----+ COLLIN DST ? 41 ? +--------+ + +-----+ REINFORCING STEEL MACHINE OPERATOR DST ? 80 ? +--------+ + +-----+ KAREN DST ? 38 ? +--------+ + +-----+ LAXMI DST -179 retro ? +--------+ + +-----+ DPA ?-34 retro ? +--------+ + +-----+ +--------+ + +-----+ LEFT ? Velocity cm/s PRE ? Ratio ? Velocity cm/s ? Phasicity ? +--------+ + +-----+ EIA DST ? 100 ? +--------+ + +-----+ HEALTH INSURANCE SALES AGENT DST ? 98 ? +--------+ + +-----+ PFA ? 73 ? +--------+ + +-----+ SFA PRX ? 100 ? +--------+ + +-----+ SFA MID ? 52 ? +--------+ + +-----+ SFA DST ? 44 ? +--------+ + +-----+ COLLIN PRX ? 674 ? 55 ? 12.3 +--------+ + +-----+ COLLIN DST ? 27 ? +--------+ + +-----+ REINFORCING STEEL MACHINE OPERATOR DST ? 11 ? +--------+ + +-----+ [...] Accreditation Commission (IAC/Vascular), www.intersocietal.org/vascular Report generated by [employer]. ??Final ?? Procedure Note Wang Dela Cruz MD - 11/23/2023 VASCULAR ULTRASOUND REPORT RODERICK HEATON : 1940 Study Date: 11/23/2023 7:26:56 AM Age: 83 years Tech: ARISTIDES/JOHNNY Gender: F Referring MD: CHARLOTTE SPRINGER Site: [facility] Study performed: Lower extremity duplex US, [...] +-----+ EIA DST 104 +--------+ + +-----+ HEALTH INSURANCE SALES AGENT DST 111 +--------+ + +-----+ PFA 88 +--------+ + +-----+ SFA PRX 111 +--------+ + +-----+ SFA MID 66 +--------+ + +-----+ SFA DST 415 64 6.5 +--------+ + +-----+ COLLIN PRX 101 +--------+ + +-----+ COLLIN DST 41 +--------+ + +-----+ REINFORCING STEEL MACHINE OPERATOR DST 80 +--------+ + +-----+ KAREN DST 38 +--------+ + +-----+ LAXMI DST -179 retro +--------+ + +-----+ DPA -34 retro +--------+ + +-----+ +--------+ + +-----+ LEFT Velocity cm/s PRE Ratio Velocity cm/s Phasicity +--------+ + +-----+ EIA DST 100 +--------+ + +-----+ HEALTH INSURANCE SALES AGENT DST 98 +--------+ + +-----+ PFA 73 +--------+ + +-----+ SFA PRX 100 +--------+ + +-----+ SFA MID 52 +--------+ + +-----+ SFA DST 44 +--------+ + +-----+ COLLIN PRX 674 55 12.3 +--------+ + +-----+ COLLIN DST 27 +--------+ + +-----+ REINFORCING STEEL MACHINE OPERATOR DST 11 +--------+ + +-----+ LAXMI DST [...] theIntersocietal Accreditation Commission (IAC/Vascular),www.intersocietal.org/vascular Report generated by [employer]. Final Charlotte Springer MD US * TSH (09/29/2023 9:04 AM CDT) TSH 1.48 0.27 - 4.20 uIU/mL 09/29/2023 5:[address] [facility] Blood BLOOD SPECIMEN / Unknown Venipuncture / Unknown 09/29/2023 9:04 AM CDT 09/29/2023 9:04 AM CDT [facility] - 09/29/2023 5:48 PM CDT In Adults, TSH values between 5.00 and 10.00 uIU/ml do not necessarily indicate the presence of Hypothyroidism. Correlation with clinical findings such as presence of goiter and/or Thyroperoxidase (TPO) Antibody may be helpful. For more information please refer to SUZETTE 2004; 291: 228-238. Rakel Connor DO CHEMISTRY [facility] [address] [place] [address], * (ABNORMAL) T4,FREE (09/29/2023 9:04 AM CDT) T4,FREE 1.78(H) 0.93 - 1.70 ng/dL 09/29/2023 5:48 PM CDT [facility] Blood BLOOD SPECIMEN / Unknown Venipuncture / Unknown 09/29/2023 9:04 AM CDT 09/29/2023 9:04 AM CDT Rakel Connor DO CHEMISTRY [facility] [address] [place] [address], * (ABNORMAL) XR DXA BONE DENSITY 2 SITES AXIAL (07/02/2019 11:48 AM WATER PROJECT ENGINEER) Anatomical Region Laterality Modality Spine, HIPS, HIPL, HIPR Other Narrative 07/06/2019 11:01 AM WATER PROJECT ENGINEER Please see scanned document for results of this study. 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
--- OUTSIDE RECORDS SUMMARY | 2023-12-16 08:57 | XMS_ITS | Continuity of Care Document ---
Author Organization [facility] Address [address] [place] [address] Phone Care Team Providers Care Adoption Specialist Name Role Phone Usha Dickinson Unavailable Unavailable [...] on Encounter [facility], [address], [place], [place], [id number], [place] tel:[phone] No Information [facility]. [facility], [address], [place], [place], [id number] , [place]. [phone] Office/Outpat ient Visit,Est, Mod [facility], [address], [place], [place], [id number], [place] tel:[phone] [facility] Other forms of scoliosis, thoracolumbar regionL2 wedge compression fracture, initial encounter for closed fractureSpondy lolisthesis, lumbar region 0 [facility]. [facility], [address], [place], [place], [id number] , [place]. tel:[phone] Referring Provider: Rakel Arvizu, [place] [facility] [address] [place], [address]. tel:[phone] Office/Outpat ient Visit,Est, Mod [facility], [address], [facility] [place], [place], [address], [place] tel:[phone] [facility] L2 wedge compression fracture, initial encounter for closed fractureOther forms of scoliosis, thoracolumbar regionSpondylo listhesis, lumbar region 0 Kwame Kerr. [facility], [address], [place], [place], [id number] , . tel:[phone] Referring Provider: Rakel Arvizu Galazar [address] [place], [address]. tel:[phone] Office/Outpat ient Visit,[facility], [facility], [address], [facility] [place], [place], [address], [place] tel:[phone] [facility] [place] L2 wedge compression fracture, initial encounter for closed fractureOther forms of scoliosis, thoracolumbar regionSpondylo listhesis, lumbar region 0 Kwame Kerr. [facility], [address], [place], [place], [address] , [place]. tel:[phone] Referring Provider: Rakel Arvizu Galazar [address] [place], [address]. tel:[phone] Family History Family Member Type Diagnosis Age At Onset No Information Payers Payer name Insurance type Covered republican ID Authoralethaa tishannon(s) Medicare MB [id number] [facility] [id number] [facility] [id number] Social History Type Description Quantity Date Captured [...]
--- OUTSIDE RECORDS SUMMARY | 2023-12-16 08:57 | XMS_ITS | Data Portability ---
Author Organization [facility], [facility] Address [address] [place] [address] Care Team Providers Care Bag Washer Name Role Phone [facility] Primary Care Provider Assessment No assessment recorded. Plan of Treatment Reminders Order Date Submit Date Provider Last Modified By Organization Details Last Modified Time Details Appointments ESTABLISH ED 20 2023 09:00A M ELMA Blanco Not available Not available Not available ESTABLISH ED 45 2023 09:30A M DEMETRI Denis Not available Not available Not available Lab urinalysi s, dipstick 2021 022 [facility], [address], [address], [place], [address], 09/14/2021 10:41:46 urinalysi s, dipstick 2021 022 [facility], [address], [address], [place], [address], 08/03/2021 11:48:36 Referral None recorded. Procedures None recorded. Surgeries None recorded. Imaging None recorded. Medication Orders Myrbetriq 50 mg tablet,ex tended release 2021 022 [email or web address] ([facility]), [address] [place], [address], 11/12/2021 11:33:16 Gemtesa 75 mg tablet 2021 022 [email or web address] Not available 11/12/2021 11:33:22 [facility]tesa 75 mg tablet 2021 022 [id number] [address], [place], [address], 11/12/2021 11:33:54 Theracran 650 mg capsule 2019 020 [facility], [address] [place] [address], [address], 05/13/2020 10:33:26 Patient TargetsNo targets recorded. Patient Instructions Encounter Date Encounter Id Patient Instructions Last Modified By Organization Details Last Modified Time 04/28/2023 [id number] Over Active Blad betty (OAB): -Managed with [...] needed [email or web address] Not available 04/28/2023 11:58:26 12/06/2022 [id number] Test each progra m for at least 2 weeks, adjusting amplitude as needed. May remain on a program as long as it is effective. Return as needed for reprogramming. [email or web address] Not available 12/06/2022 10:55:41 04/09/2022 [id number] Test each progra m for at least [...] the expense. I will ask MICHELET Blanco. [email or web address] Not available 04/09/2022 12:37:43 11/12/2021 [id number] Over Active Blad betty (OAB): -Managed with [...] minutes rbourget Not available 11/12/2021 11:46:55 09/14/2021 [id number] Over Active Blad betty (OAB): -Managed with [...] issues rbourget Not available 09/14/2021 10:49:32 09/14/2021 [id number] Test each progra m for at least 2 weeks, adjusting amplitude as needed. May remain on a program as long as it is effective. Return as needed for reprogramming. [email or web address] Not available 09/14/2021 10:07:26 Patient states t hat Gemtessa samples were very effective, but it is not covered by her insurance. She was also given a rx for Myrbetriq. [email or web address] Not available 09/14/2021 10:08:49 08/03/2021 [id number] s/p interstim surescan -ok for MRIs -doing really well and pleased but occ with UUI 90% better, she is still bothered that she would do more and will give gemtesa 75mg--to see in 6-8 week with PA and with demetri. -to call [facility] re clitoral fusion/LS. -theracran (cranberry supplement) -to let me know if more utis Not available 08/03/2021 11:56:59 11/26/2020 [id number] Test each progra m for at least 2 weeks, adjusting amplitude as needed. May remain on a program as long as it is effective. Return as needed for reprogramming. [email or web address] Not available 11/27/2020 12:32:23 Reviewed the use of the smart vb net programmer, and provided handout. Instructed the patient to lay down, with her legs above the level of her heart for at least 1 hour in the late afternoon. This may increase urinary frequency for a couple of hours in the evening, but should help to decrease the nocturia. [email or web address] Not available 11/27/2020 12:46:50 11/11/2020 [id number] sp interstim surescan -ok for MRIs -healing well -to see me in 12 months, will have her see demetri now for programmign options -doing really well and pleased but occ with UUI 90% better -to call [facility] re clitoral fusion/LS. -theracran (cranberry supplement) -to let me know if more utis Not available 11/11/2020 12:16:02 05/13/2020 [id number] sp interstim [address] [facility] ira ago -ok for MRIs -healing well -to see me in 6 months, to call if any issues or needs programming -to call [facility] re clitoral fusion/LS. -to start theracran (cranberry supplement) -to let me know if more utis Not available 05/13/2020 10:31:23 04/15/2020 [id number] sp Interstim -- healing well educated more today to see in 1mo, reminded to call if any questions with the vb net programmer. Not available 04/15/2020 10:12:25 Reason for Referral None Reported. Results Created Date Observation Date Name Description Value Unit Range Abnormal Flag LastModifiedBy Organization Detail LastModifiedTime 08/03/19 22 08/03/2021 UA DIP CS ADVAN TUS color -advantus YELLOW yellow Not Available [facility] [address], [place], [address], 08/03/2021 11:48:36 08/03/19 22 08/03/2021 UA DIP CS ADVAN TUS appearance -advantus CLEAR clear Not Available [facility] [address], [place], [address], 08/03/2021 11:48:36 08/03/19 22 08/03/2021 UA DIP CS ADVAN TUS glucose -advantus NEGATI VE mg/dL negati ve Not Available [facility] [address] [place] [address] [address], [place], [address], 08/03/2021 11:48:36 08/03/19 22 08/03/2021 UA DIP CS ADVAN TUS bilirubin -advantus NEGATI VE negati ve Not Available [facility] [address] [place] [address] [address], [place], [address], 08/03/2021 11:48:36 08/03/19 22 08/03/2021 UA DIP CS ADVAN TUS ketones -advantus NEGATI VE mg/dL negati ve Not Available [facility] [address] [place] [address] [address], [place], [address], 08/03/2021 11:48:36 08/03/19 22 08/03/2021 UA DIP CS ADVAN TUS sp. gravity -advantus 1.010 1.010- 1.025 Not Available [facility] [address] [place] [address] [address], [place], [address], 08/03/2021 11:48:36 08/03/19 22 08/03/2021 UA DIP CS ADVAN TUS pH -advantus 5.5 5.0-8. 0 Not Available [facility] [address] [place] [address] [address], [place], [address], 08/03/2021 11:48:36 08/03/19 22 08/03/2021 UA DIP CS ADVAN TUS protein -advantus NEGATI VE mg/dL negati ve Not Available [facility] [address] [place] [address] [address], [place], [address], 08/03/2021 11:48:36 08/03/19 22 08/03/2021 UA DIP CS ADVAN TUS urobilinogen -advantus 0.2 normal Not Available [facility] [address] [place] [address] [address], [place], [address], 08/03/2021 11:48:36 08/03/19 22 08/03/2021 UA DIP CS ADVAN TUS nitrites -advantus NEGATI VE negati ve Not Available [facility] [address] [place] [address] [address], [place], [address], 08/03/2021 11:48:36 08/03/19 22 08/03/2021 UA DIP CS ADVAN TUS blood -advantus SMALL negati ve abnormal Not Available [facility] [address] [place] [address], [place], [address], 08/03/2021 11:48:36 08/03/19 22 08/03/2021 UA DIP CS ADVAN TUS leukocytes -advantus TRACE negati ve abnormal Not Available [facility] [address] [place] [address] [address], [place], [address], 08/03/2021 11:48:36 08/03/19 22 08/03/2021 UA DIP CS ADVAN TUS performed by Geena Ingram Not Available [facility] [address] [place] [address] [address], [place], [address], 08/03/2021 11:48:36 08/03/19 22 08/03/2021 UA DIP CS ADVAN TUS total urine volume (mL) 20 /mL Not Available [facility] [address] [place] [address] [address], [place], [address], 08/03/2021 11:48:36 08/03/19 22 08/03/2021 UA MICRO SCOPI C U-WBC 0 - 2 [hpf] 0 - 2 Not Available [facility] [address] [place] [address] [address], [place], [address], 08/03/2021 11:48:38 08/03/19 22 08/03/2021 UA MICRO SCOPI C U-RBC 0 - 2 [hpf] 0 - 2 Not Available [facility] [address], [place], [address], 08/03/2021 11:48:38 08/03/19 22 08/03/2021 UA MICRO SCOPI C bacteria Small [hpf] negati ve abnormal Not Available [facility] [address] [place] [address] [address], [place], [address], 08/03/2021 11:48:38 08/03/19 22 08/03/2021 UA MICRO SCOPI C squamous epi Small /lpf negati ve,sma ll Not Available [facility] [address] [place] [address] [address], [place], [address], 08/03/2021 11:48:38 09/15/19 22 09/14/2021 UA DIP CS ADVAN TUS color -advantus YELLOW yellow Not Available [facility] [address] [place] [address] [address], [place], [address], 09/14/2021 10:41:46 09/15/19 22 09/14/2021 UA DIP CS ADVAN TUS appearance -advantus CLEAR clear Not Available [facility] [address] [place] [address] [address], [place], [address], 09/14/2021 10:41:46 09/15/19 22 09/14/2021 UA DIP CS ADVAN TUS glucose -advantus NEGATI VE mg/dL negati ve Not Available [facility] [address] [place] [address] [address], [place], [address], 09/14/2021 10:41:46 09/15/19 22 09/14/2021 UA DIP CS ADVAN TUS bilirubin -advantus NEGATI VE negati ve Not Available [facility] [address] [place] [address] [address], [place], [address], 09/14/2021 10:41:46 09/15/19 22 09/14/2021 UA DIP CS ADVAN TUS ketones -advantus NEGATI VE mg/dL negati ve Not Available [facility] [address] [facility] [address], [place], [address], 09/14/2021 10:41:46 09/15/19 22 09/14/2021 UA DIP CS ADVAN TUS sp. gravity -advantus 1.010 1.010- 1.025 Not Available [facility] [address] [facility] [address], [place], [address], 09/14/2021 10:41:46 09/15/19 22 09/14/2021 UA DIP CS ADVAN TUS pH -advantus 6.0 5.0-8. 0 Not Available [facility] [address] [facility] [address], [place], [address], 09/14/2021 10:41:46 09/15/19 22 09/14/2021 UA DIP CS ADVAN TUS protein -advantus NEGATI VE mg/dL negati ve Not Available [facility] [address] [place] [address] [address], [place], [address], 09/14/2021 10:41:46 09/15/19 22 09/14/2021 UA DIP CS ADVAN TUS urobilinogen -advantus 0.2 normal Not Available [facility] [address] [place] [address] [address], [place], [address], 09/14/2021 10:41:46 09/15/19 22 09/14/2021 UA DIP CS ADVAN TUS nitrites -advantus NEGATI VE negati ve Not Available [facility] [address] [place] [address] [address], [place], [address], 09/14/2021 10:41:46 09/15/19 22 09/14/2021 UA DIP CS ADVAN TUS blood -advantus SMALL negati ve abnormal Not Available [facility] [address] [facility] [address], [place], [address], 09/14/2021 10:41:46 09/15/19 22 09/14/2021 UA DIP CS ADVAN TUS leukocytes -advantus NEGATI VE negati ve Not Available [facility] [address] [facility] [address], [place], [address], 09/14/2021 10:41:46 09/15/19 22 09/14/2021 UA DIP CS ADVAN TUS performed by Bibi Ruiz Not Available [facility] [address], [place], [address], 09/14/2021 10:41:46 09/15/19 22 09/14/2021 UA DIP CS ADVAN TUS total urine volume (mL) 20cc /mL Not Available [facility] [address] [place] [address] [address], [place], [address], 09/14/2021 10:41:46 09/15/19 22 09/14/2021 UA MICRO SCOPI C U-WBC 0 - 2 [hpf] 0 - 2 Not Available [facility] [address] [facility] [address], [place], [address], 09/14/2021 10:41:47 09/15/19 22 09/14/2021 UA MICRO SCOPI C U-RBC 0 - 2 [hpf] 0 - 2 Not Available [facility] [address] [facility] [address], [place], [address], 09/14/2021 10:41:47 09/15/19 22 09/14/2021 UA MICRO SCOPI C bacteria Small [hpf] negati ve abnormal Not Available [facility] [address] [place] [address] [address], [place], [address], 09/14/2021 10:41:47 09/15/19 22 09/14/2021 UA MICRO SCOPI C squamous epi Small /lpf negati ve,sma ll Not Available [facility] [address] [place] [address] [address], [place], [address], 09/14/2021 10:41:47 04/02/20 20 04/01/2020 XR, abdom en No observ ation record ed. [facility] [address] [facility] [place], [address], 04/02/2020 11:32:57 Result Notes None recorded. Problems Name Status Onset Date Resolution Date Notes Provider Name and Address Organization Details Recorded Time Chronic cystitis Active 2018 N30.20 : Chronic cystitis Not Available [facility] 0 23:40:26 Overactive bladder Active 2018 N32.81 : Bladder muscle dysfunction - overactive Not Available [facility] 0 23:40:26 Benign neoplastic disease Active 2019 [facility] 0 09:58:09 Tear film insufficiency Active 2019 Daphne felix [facility] 0 09:58:21 Gastroesophageal reflux disease [facility] 2019 [facility] 0 09:58:28 Hyperlipidemia Active 2019 Daphne felix [facility] 0 09:58:36 Heart disease Active 2022 Radhika felix [facility] 3 11:27:33 Problem Notes None recorded. Procedures Surgical History Date Name Laterality Status Provider Name and Address Organization Details Recorded Time 04/28/20 23 Sacral neuromodulation w/o reprogramming completed ELMA Blanco [address] [place] [address],[address], [place], [address], [facility] 04/28/2023 11:57:28 04/28/20 23 Bladder Scan completed Radhika felix [facility] 04/28/2023 11:36:21 12/07/19 23 Sacral neuromodulation w/o reprogramming completed Demetri felix [facility] 12/06/2022 11:08:45 04/09/20 22 Sacral Stimulator Reprogramming completed Demetri felix [facility] 04/09/2022 12:49:34 09/15/19 22 Bladder Scan completed Merry Ocampo null, [facility] 09/14/2021 10:25:15 09/15/19 22 Sacral neuromodulation w/o reprogramming completed Demetri Bosch null, [facility] 09/14/2021 10:15:12 08/03/19 22 Past Data Reviewed completed Charlotte Smith MD [address] [place] [address],[address], [place], [address], [facility] 08/03/2021 08:29:52 08/03/19 22 Bladder Scan completed Usha Corado null, [facility] 08/03/2021 11:50:03 11/27/19 21 Sacral Stimulator Reprogramming completed Demetri Bosch null, [facility] 11/27/2020 12:44:01 09/17/19 20 Implant neuroelectrodes completed Not Available [facility] 12/13/2019 18:11:39 11/29/19 19 Insert bladder catheter completed Not Available [facility] 12/13/2019 18:11:39 11/14/19 15 Colonoscopy completed Lucinda Nuñez null, [facility] 11/11/2020 11:57:08 11/29/19 09 Total hip arthroplasty completed Not Available [facility] 12/13/2019 18:11:39 11/29/19 00 Unlisted procedure breast completed Not Available [facility] 12/13/2019 18:11:39 Appendectomy add-on completed Not Available [facility] 12/13/2019 18:11:39 Imaging Results Imaging Date Name Status LastModified by Organiz ation Details LastModified Time 04/01/2020 XR, abdomen completed [facility] [address] [facility] [place], [address], 04/02/2020 11:32:57 Procedure Notes None recorded. Medical Equipment None Reported. Allergies Allergen ID Allergen Name Allergen Category Reaction Reaction Severity Criticality Documentation Date Start Date Code Code System Note Provider Name and Address Organization Details Recorded Time 19861108 Nitroimid azole (substanc e) medicatio n Not available Not available Not available 12/12/2019 63861 5001 SNOMED Not Available [facility] 0 23:50:45 554854 sulindac medicatio n Not available Not available Not available 12/12/2019 18072 RxNorm Not Available [facility] 0 23:50:45 421958 Medicinal product containin g penicilli n and acting as antibacte rial agent (product) medicatio n itching Not available Not available 12/12/2019 60595 05 SNOMED Not Available [facility] 0 23:50:45 158465 atorvasta tin medicatio n Not available Not available Not available 12/12/2019 24586 RxNorm Not Available [facility] 0 23:50:45 194798 tetracycl ine medicatio n Not available Not available Not available 12/12/2019 24205 RxNorm Not Available [facility] 0 23:50:45 147294 alendrona te sodium medicatio n Not available Not available Not available 12/12/201927368 2 RxNorm Not Available [facility] 0 23:50:45 445118 amoxicill in medicatio n Not available Not available Not available 12/12/2019 723 RxNorm Not Available [facility] 0 23:50:45 825817 oxybutyni n chloride Not available dizziness Not available Not available 12/12/2019 79905 RxNorm fatig ue Not Available [facility] 0 23:50:45 656270 aspirin medicatio n Not available Not available Not available 12/12/2019 1191 RxNorm Not Available [facility] 0 23:50:46 461689 losartan Not available Not available Not available Not available 12/12/2019 11326 RxNorm Not Available [facility] 0 23:50:46 772017 estrogens , conjugate d (LONG-TERM) medicatio n Not available Not available Not available 12/12/2019 4099 RxNorm Not Available [facility] 0 23:50:46 055649 ciproflox acin medicatio n Not available Not available Not available 12/12/2019 2551 RxNorm Not Available [facility] 0 23:50:46 874930 hydrochlo rothiazid e medicatio n Not available Not available Not available 12/12/2019 5487 RxNorm Not Available [facility] 0 23:50:46 829313 metoprolo l Not available Not available Not available Not available 12/12/2019 6918 RxNorm Not Available [facility] 0 23:50:46 468717 naproxen medicatio n Not available Not available Not available 12/12/2019 7258 RxNorm Not Available [facility] 0 23:50:46 398690 clindamyc in Not available Not available Not available Not available 12/12/2019 2582 RxNorm Not Available [facility] 0 23:50:46 207924 Substance with sulfonami de structure and antibacte rial mechanism of action (substanc e) medicatio n Not available Not available Not available 11/11/2020 80126 8003 SNOMED Lucinda Vossen [facility] 1 11:56:30 104630 Myrbetriq medicatio n swelling Not available Not available 10/05/2021 42476 92 RxNorm RODERICK THOMSON [facility] 2 13:18:14 797281 S[employer]uc[employer] Immune medicatio n Not available Not available Not available 04/09/2022 Demetri Bosch [facility] 2 12:14:11 Medications Name Sig Start [...] COVID-19 Ag Self Test kit [facility] INCLUED IN PACKAGING 04/28 completed Not Available Not Available Not Available Vitals Date Recorded Body height Body mass index (BMI) Body weight Provider Name and Address Organization Details Last Updated DateTime 04/09/2022 154.94 cm 27.8 kg/m2 41908.08 g Demetri Bosch [facility] 04/09/2022 12:13:52 Date Recorded Body height Body mass index (BMI) Body weight Provider Name and Address Organization Details Last Updated DateTime 12/06/2022 154.94 cm 25.5 kg/m2 05218.97 g Demetri Bosch [facility] 12/06/2022 10:41:56 Date Recorded Body height Body mass index (BMI) Body weight Provider Name and Address Organization Details Last Updated DateTime 04/15/2020 157.48 cm 26.3 kg/m2 09297.3 g Daphne Montague [facility] 04/15/2020 10:05:09 Date Recorded Body height Body mass index (BMI) Body weight Provider Name and Address Organization Details Last Updated DateTime 04/28/2023 154.94 cm 25.5 kg/m2 69055.97 g Radhika Mathis [facility] 04/28/2023 11:25:35 Date Recorded Body height Body mass index (BMI) Body weight Provider Name and Address Organization Details Last Updated DateTime 05/13/2020 157.48 cm 26.3 kg/m2 61283.3 g Daphne Montague [facility] 05/13/2020 10:15:26 Date Recorded Body height Body mass index (BMI) Body weight Provider Name and Address Organization Details Last Updated DateTime 11/11/2020 157.48 cm 26.3 kg/m2 18979.3 g Lucinda Gordondhruv [facility] 11/11/2020 11:56:20 Date Recorded Body height Body mass index (BMI) Body weight Provider Name and Address Organization Details Last Updated DateTime 11/26/2020 158.75 cm 27.2 kg/m2 98930.45 zeus Demetri Danitza [facility] 11/26/2020 10:47:36 Date Recorded Body height Body mass index (BMI) Body weight Provider Name and Address Organization Details Last Updated DateTime 08/03/2021 158.75 cm 27.2 kg/m2 94892.45 zeus Usha Mak [facility] 08/03/2021 11:35:42 Date Recorded Body height Body mass index (BMI) Body weight Provider Name and Address Organization Details Last Updated DateTime 09/14/2021 158.75 cm 26.5 kg/m2 55421.08 zeus Demetri Danitza [facility] 09/14/2021 09:54:39 Date Recorded Body height Body mass index (BMI) Body weight Provider Name and Address Organization Details Last Updated DateTime 09/14/2021 158.75 cm 26.5 kg/m2 73578.08 zeus Merry Ocampo [facility] 09/14/2021 10:08:57 Date Recorded Body height Body mass index (BMI) Body weight Provider Name and Address Organization Details Last Updated DateTime 11/12/2021 154.94 cm 27.8 kg/m2 05915.08 zeus DonovanMerrygabriela cOampo [facility] 11/12/2021 11:32:20 Social History Question Answer Notes LastModified by Organizat ion Details LastModified Time Tobacco Smoking Status Never Smoker Not Available [facility] 12/13/2019 02:00:45 What Is Your Level Of Alcohol Consumption? None Information not available 09/14/2021 What Is Your Level Of Caffeine Consumption? Heavy Information not available 09/14/2021 Are You Currently Employed? No Information not available 09/14/2021 Race White Information n ot available 12/13/2019 Ethnicity Not /Lat vane Information not available 09/14/2021 Preferred Language Cambodian Information not available 09/14/2021 Recreational Drug Use [...] Disease N Depression N GERD/Acid Reflux Y Diabetes N Sexually Transmitted Infection N Bleeding Disorder Y Cancer N High Cholesterol N Heart Disease Y Gynecological HistoryNo gynecological history recorded. Obstetrics History GPAL:G 0 P 0 0 0 0 Immunizations Vaccine Type Date Status Provider Name and Address Organization Details Recorded Time Pneumococcal conjugate PCV 13 07/04/2017 completed STEPHEN Germain [facility] 04/28/2023 11:25:40 Past Encounters Encounter ID Performer Location Encounter Start Date Encounter Closed Date Diagnosis/Indication Diagnosis SNOMED-CT Code [id number] [facility] [address] [facility],[address] [place] [address] 04/15/2020 10:02:52 04/25/2020 12:54:57 Overactive bladder [id number] Urge incon tinence of urine [id number] Charlotte Smith MD [facility] [address],[place] [address] [place] [address] 05/13/2020 10:14:48 05/13/2020 14:22:18 Overactive bladder [id number] Urge incon tinence of urine [id number] History of urinary tract infection [id number] Charlotte Smith MD [facility] [place] [address] [facility],[place] [address] [place] [address] 11/11/2020 11:46:55 11/11/2020 13:40:18 Overactive bladder [id number] Urge incon tinence of urine [id number] [facility] [address] 11/26/2020 10:15:12 12/02/2020 15:37:48 Overactive bladder [id number] Nocturia [id number] [facility] [address] 08/03/2021 11:31:50 08/03/2021 12:09:22 Overactive bladder [id number] Urge incon tinence of urine [id number] Nocturia [id number] [facility] [address] [place] [address] 09/14/2021 10:06:36 09/14/2021 14:16:12 Overactive bladder 667030698 Urge incon tinence of urine 11989070 Nocturia [id number] [facility] [address] [place] [address] 09/14/2021 09:30:06 09/14/2021 14:31:59 Overactive bladder [id number] ELMA Blanco [facility] [address] [place] [address] 0 11/12/2021 11:29:59 11/12/2021 12:37:25 Overactive bladder [id number] Urge incon tinence of urine 77443536 Nocturia [id number] Demetri Bosch [facility] [address] [place] [address] 04/09/2022 11:43:46 04/09/2022 13:38:20 Overactive bladder 159890058 [id number] Demetri Bosch [facility] [address] [place] [address] 12/06/2022 10:28:13 12/06/2022 11:24:29 Overactive bladder [id number] ELMA Blanco [facility] [address] [place] [address] 04/28/2023 11:22:38 04/28/2023 12:04:03 Overactive bladder [id number] Urge incon tinence of urine 33496830 Nocturia [id number] Health Concerns Section Related Observation LastModified by Organization Detai ls LastModified Time None Recorded Concern Status LastModified by Organization Details LastModified Time None Recorded Advance Directives Directive None Recorded Payers Encounter Date Sequence Insurance Name Policy Number Policy Betancourt Covered Member ID Betancourt Member ID Guarantor Name 04/28/2023 1 [place] [employer] Patsyfrances Beltrán [id number] Patsy Aramis Wood 04/28/2023 2 [facility] [id number] Patsyfrances Beltrán [id number] Patsy Aramis Wood 12/06/2022 1 [place] [employer] [facility] Patsy A Wood [id number] Patsy A Wood 12/06/2022 2 [facility] [id number] Patsy Aramis Beltrán [id number] Patsy Aramis Wood 04/09/2022 1 [place] [employer] [facility] Patsyfrances Beltrán [id number] Patsy A Wood 04/09/2022 2 [place] [id number] Patsy A Wood [id number] Patsy A Wood 11/12/2021 1 [place] [employer] Patsy A Wood [id number] Patsy A Wood 11/12/2021 2 [place] [id number] Patsy A Wood [id number] Patsy A Wood 09/14/2021 1 [place] [employer] Patsy A Wood [id number] Patsy A Wood 09/14/2021 2 [place] [id number] Patsy A Wood [id number] Patsy A Wood 09/14/2021 1 [place] [employer] [facility] Patsy A Wood [id number] Patsy A Wood 09/14/2021 2 [place] [id number] Patsy A Wood [id number] Patsy A Wood 08/03/2021 1 [place] [employer] Patys A Wood [id number] Patsy A Wood 08/03/2021 2 [place] [id number] Patsy A Wood [id number] Patsy A Wood 11/26/2020 1 [place] [employer] Patsy A Wood [id number] Patsy A Wood 11/26/2020 2 [place] [id number] Patsy A Wood [id number] Patsy A Wood 11/11/2020 1 [place] [employer] Patsy A Wood [id number] Patsy A Wood 11/11/2020 2 [place] [id number] Patsy A Wood [id number] Patsy A Wood 05/13/2020 1 [place] [employer] Patsy A Wood [id number] Patsy A Wood 05/13/2020 2 [place] [id number] Patsy A Wood [id number] Patsy A Wood 04/15/2020 1 [place] [employer] Patsy A Wood [id number] Patsy Aramis Jerel 04/15/2020 2 [place] [id number] Patsy Beltrán [id number] Patsy Aramis Jerel Notes Date Note Type Note Provider Name and Address Organization Details Recorded Time 04/15/2020 text/html HPI Notes: sp interstim lead and IPG 9-29 doing well on program 3 vagianl was concerned as it was timing out Charlotte Smith MD [address] [place] [address],[address] [place] [address], [phone], [facility] 04/15/2020 10:12:37 05/13/2020 text/html [...] to program 4 vagianl. Charlotte Smith MD [address] [place] [address],[address], [place], [address], [facility] 05/13/2020 10:32:36 11/11/2020 text/html [...] be almost every hour Charlotte Smith MD [address] [place] [address],[address], [place], [address], [facility] 11/11/2020 12:16:47 08/03/2021 text/html [...] on Lasix as needed Charlotte Smith MD [address] [place] [address],[address], [place], [address], [facility] 08/03/2021 11:57:51 09/14/2021 text/html [...] be almost every hour. ELMA Blanco [address] [place] [address],[address], [place], [address], [facility] 09/14/2021 10:49:41 11/12/2021 text/html [...] with sjorgrens. This visit was conducted using [employer] phone technology. Prior to conducting our health visit, the patient and I discussed the risks, benefits and alternatives to phone visits. The patient elected to proceed with the phone visit. ELMA Blanco [address] [place] [address],[address], [address], [facility] 11/12/2021 11:50:24 12/06/2022 text/html [...] changed Rate chaanged Resolution changed Demetri felix, [facility] 12/06/2022 11:08:58 04/28/2023 text/html HPI [...] be almost every hour. ELMA Blanco [address] [place] [address],[address], [place], [address], [facility] 04/28/2023 11:58:40 OBGyn Episode No OBEpisode recorded.
== END 2023-12-16 08:56 | disposition home or self-care (01) ==
LOC: WOUND 08:55
PROVIDERS: PCP Physician Assistant Medical; Visit Provider Nurse Practitioner Family
DX: I87.2 Venous insufficiency (chronic) (peripheral) (principal); I73.9 Peripheral vascular disease, unspecified; L97.322 Non-pressure chronic ulcer of left ankle with fat layer exposed; R73.03 Prediabetes; Z79.52 Long term (current) use of systemic steroids
CPT/HCPCS: G0463

== ENCOUNTER 2023-12-23 09:51 | Outpatient (CLI) | payer OTHER, SELFPAY ==
--- OUTSIDE RECORDS SUMMARY | 2023-12-23 09:53 | XMS_ITS | Continuity of Care Document ---
Author Organization [facility] Address [address] [place] [address] Phone Care Team Providers Care Floor Polisher Name Role Phone Hleder Medina MD Unavailable Unavailabl e Allergies, Adverse [...] Antibodies Dna Antibody, Single Strand Dna Antibody, [place] Nuclear Antigen Antibodies Rheumatoid Factor, IGM Rheumatoid Factor, IGG, IGA Advance Directives Directive Yes / No Effective Date File Name No Information Encounters Encounter Description Practice Location Reason(s) For Visit Diagnoses Date Provider Providers Copied on Encounter [facility], [address], [place], [address], [place] tel:[phone] [facility], No Information Apr-- 4 Adam Pendleton. [address], [address], [place], [address], [place]. tel:[phone] Referring Provider: Helder Jain, [address], [place], [address]. tel:[phone] Office/Outpa tient Visit, Est [facility], [address], [place], [address], [place] tel:[phone] [facility], Sjogren syndrome w/ inflammatory arthritisPain in left foot Apr- 0 4 Lebedoff Helder. [address], [address], [place], [address], [place]. tel:[phone] Referring Provider: Helder Jain, [address], [place], [address]. tel:[phone] Office/Outpa tient Visit, Est [facility], [address], [place], [address], [place] tel:[phone] [facility], Sjogren syndrome w/ inflammatory arthritisPrim mauri osteoarthriti s, right hand 3 Lebedoff Helder. [address], [address], [place], [address], [place]. tel:[phone] Referring Provider: Helder Jain, [address], [place], [address]. tel:[phone] Office/Outpa tient Visit, Est [facility], [address], [place], [address], [place] tel:[phone] [facility], Sicca syndrome, unspecifiedWe akness November- 0 3 Lebedoff Helder. [address], [address], [place], [address], [place]. tel:[phone] Referring Provider: Helder Jain, [address], [place], [address]. tel:[phone] Office/Outpa tient Visit, Est [facility], [address], [place], [address], [place] tel:[phone] [facility], Sicca syndrome, unspecifiedPa in in left shoulder Apr- 2 Adam Pendleton. [address], [address], [place], [address], [place]. tel:[phone] Referring Provider: Helder Jain, [address], [place], [address]. tel:[phone] Office/Outpa tient Visit, Est [facility], [address], [place], [address], [place] tel:[phone] [facility], Sicca syndrome, unspecifiedDy spnea Oct- 2 Adam Pendleton. [address], [address], [place], [address], [place]. tel:[phone] Referring Provider: Helder Jain, [address], [place], [address]. tel:[phone] Office/Outpa tient Visit, Est [facility], [address], [place], [address], [place] tel:[phone] [facility], Sicca syndrome, unspecifiedOt her prison (current) drug therapyPrimar y OA of right handDyspnea Apr- 1 Adam Pendleton. [address], [address], [place], [address], [place]. tel:[phone] Referring Provider: Helder Jain, [address], [place], [address]. tel:[phone] Office/Outpa tient Visit, New [facility], [address], [place], [address], [place] tel:[phone] [facility], Sicca syndrome, unspecifiedPa in in rt ankleOther prison (current) drug therapy 1 Adam Pendleton. [address], [address], [place], [address], [place]. tel:[phone] Referring Provider: Helder Medina G, [address], [address]. tel:[phone] [facility], [address], [place], [address], [place] tel:[phone] [facility] No Information 1 Mo Sullivan. [facility] [address] [place] [address] [address], [place], [address], [place]. tel:[phone] Family History Family Member Type Diagnosis Age At Onset No Information Immunizations Vaccine Date Status Comments COVID-19 Moderna administered Source: Ot er Provider COVID-19 Pfizer administered Note: 1 ; Source: Other Provider Payers Payer name Insurance type Covered constitution party ID Authoriza tion(s) [employer] Medicare Adv [id number] MB [id number] Social History Type Description Quantity Date Captured [...] Order Fo ot X-ray; Complete (3+ views) (50776), Sent on: Sent History Of Present Illness [...]
--- OUTSIDE RECORDS SUMMARY | 2023-12-23 09:53 | XMS_ITS | Clinical Summary ---
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 09/27 Prediabetes [...] Date Anticoagulation monitoring, INR range 2-3 [Z79.01]; [place] [facility] 2.5-3.0 12/06/2016 1 Pessary maintenance 02/25/2016 09/28/19 20 Anticoagulation monitoring, goal range 2.0-2.6 09/19/2013 01/09/2018 Abnormal stress test 11/17/2010 011 Routine general medical exam ination at a health care facility 07/12/2009 09/28/2019 Overview: Normal CT angiogram 11/2010 Hip pain 05/06/2008 07/09/2009 Onychomycosis 05/06/2008 08/27/2008 HX OF VENOUS THROMBOSIS AND EMBOLISM 11/09/2006 12/06/2012 Bilateral pulmonary embolism 10/11/2006 11/18/2017 AFTERCARE, LONG-TERM USE, CA DICATIONS NEC-PLAQUENIL 10/22/2003 Encounters Date Type Department Care Team Description 12/12/2023 Lab Requisition [facility] [phone] Unknown, Doctor 12/09/2023 Telephone [facility] [address] [place] [address] Charlotte Springer MD Care Coordination 12/05/2023 11:00 AM CDT Office Visit [facility] [address] [place] [address] Charlotte Springer MD Follow Up (LLE wound follow up ) 12/05/2023 8:56 AM CDT - 12/05/2023 11:59 PM CDT Hospital Encounter [facility] [address] [place] [address] Charlotte Springer MD Venous insufficiency; Venous stasis ulcer of ankle, left (HC) 12/05/2023 Travel 11/23/2023 9:30 AM CDT Office Visit [facility] [address] [place] [address] Charlotte Springer MD Ankle Pain/problem (L medial malleolar ulcer) 11/23/2023 6:47 AM CDT - 11/23/2023 11:59 PM CDT Hospital Encounter [facility] [address] [place] [address] Charlotte Springer MD PAD (peripheral artery disease) (HC) 11/22/2023 Travel 09/29/2023 9:00 AM CDT Orders Only [facility] [address] [facility] [place] [address] Lab, Farm Outside Order (Kd Restrepo MD PA 07/07/2023) 09/29/2023 Travel from Last 3 Months Immunizations Name Administration Dates Next Due AMB INFLUENZA IIV3 (AGE 65+ YRS) PF (Flu Clinic Only) 03/23/2017 AMB Influenza, IIV3 (Age >=3 years) Preserve Free (Flu Clinic Only) 04/08/2009 AMB Influenza, IIV3 (Age >=3 years)(Flu Clinic Only) 04/06/2013,04/16/2011,04/24/2008 COVID-19 vaccine ([employer] 30mcg/0.3mL) PF, MDV 09/02/2020,08/12/2020 Influenza A (H1N1), [...] Description 02/28/2024 10:00 AM CDT Office Visit [facility] [address] [address] [place] [address] [place] [address] Health Maintenance Due Date Last Done Comments [...] 01/13/2016, 12/18/2010 Medical Devices Implanted Type Area Steam Box Operator Device Identifier Shelf Expiration Date Model / Serial / Lot Lead Kit 4.32mm Spacing 28cm Length Interstim - [id number] Implanted:Qty: 1 on 04/01/2020 by Charlotte Smith MD at [facility] N/A: Sacrum [employer] Pain Therapy 09/30/2021 [id number] / / [id number] Stimulator 7.7mm 14cc Interstim Ii - [id number] Implanted:Qty: 1 on 04/01/2020 by Charlotte Smith MD at [facility] N/A: Sacrum [employer] Pain Therapy 03/31/2021 [id number] / [id number] / Description:PIN [id number] Procedures Procedure Name Priority Date/Time Associated Diagnosis [...] 2 SITES AXIAL Routine 07/02/2019 11:48 AM QUARTER LINING SMOOTHER Osteopenia of multiple sites from Last 3 Months or Most Recently Relevant to Health Maintenance Results * (ABNORMAL) REFERRAL ID/SUSC,NONURINE (12/08/2023 11:47 AM CDT) CULTURE RESULT(A) 12/17/2023 2:44 PM CDT [facility] CULTURE 1+ Acinetobacter species 12/17/2023 2:44 PM CDT [facility] Other (Left Leg) Client Collect / Unknown 12/08/2023 11:47 AM CDT 12/12/2023 10:11 PM CDT Narrative Organism Antibiotic Method Susceptibility Acinetobacter species TRIMETHOPRIM/SULF S Acinetobacter species GENTAMICIN S Acinetobacter species CEFTAZIDIME R Acinetobacter species LEVOFLOXACIN S Acinetobacter species CIPROFLOXACIN I Acinetobacter species PIPERACILLIN/TAZO I Acinetobacter species AMPICILLIN/SULBACTAM S Acinetobacter species TOBRAMYCIN S Acinetobacter species MEROPENEM S Doctor Unknown MICROBIOLOGY Performing Organization Address City/State/[facility] Co de Phone Number [facility] [address] [place] [address], * US VENOUS INSUFFICIENCY LOWER EXTREMITY BILATERAL [...] US VENOUS INSUFFICIENCY LOWER EXTREMITY BILATERAL LOCATION: [facility] DATE: 12/05/2023 INDICATION: [...] when greater than 600 ms flow reversal. Energy Economist vein reflux reported as greater than 350 [...] US VENOUS INSUFFICIENCY LOWER EXTREMITY BILATERAL LOCATION: [facility] DATE: 12/05/2023 INDICATION: [...] reported when greater than 600ms flow reversal. Energy Economist vein reflux reported as greater than 350 [...] VASCULAR ULTRASOUND REPORT RODERICK HEATON Accession#: ?? [id number] : ?1940 ??Study Date: ?? 11/23/2023 7:17:22 AM Age: ?83 years ?? Tech: ? KBN/CRK Gender: F ?Referring MD: CHARLOTTE SPRINGER Site: [facility] Vascular [facility] Study performed: ?Lower extremity resting [...] ? Index +-----+ +--------+ +-----+ 1.24 ?241 ?CAD DEVELOPER ?107 ? 0.55 +-----+ +--------+ +-----+ 1.23 ?238 ?DPA ?147 ? 0.76 +-----+ +--------+ +-----+ 0.63 ?122 ? Digit 1 ?45 ? 0.23 +-----+ +--------+ +-----+ Wang Dela Cruz MD. Electronically signed on 11/23/2023 12:17:56 PM This study was performed and interpreted by a service accredited by the Intersocietal Accreditation Commission (IAC/Vascular), www.intersocietal.org/vascular Report generated by [email or web address]. ??Final ?? Procedure Note Wang Dela Cruz MD - 11/23/2023 VASCULAR ULTRASOUND REPORT RODERICK HEATON : 1940 Study Date: 11/23/2023 7:17:22 AM Age: 83 years Tech: ARISTIDES/JOHNNY Gender: F Referring MD: CHARLOTTE SPRINGER Site: [facility] Vascular [facility] Study performed: Lower extremity resting [...] 194 Index +-----+ +--------+ +-----+ 1.24 241 CAD DEVELOPER 107 0.55 +-----+ +--------+ +-----+ 1.23 238 DPA 147 0.76 +-----+ +--------+ +-----+ 0.63 122 Digit 1 45 0.23 +-----+ +--------+ +-----+ Wang Dela Cruz MD. Electronically signed on 11/23/2023 12:17:56 PM This study was performed and interpreted by a service accredited by theIntersocietal Accreditation Commission (IAC/Vascular),[email or web address].[email or web address]/vascular Report generated by [email or web address]. Final Charlotte Springer MD US * US ARTERIAL LOWER EXTREMITY BILATERAL (11/23/2023 8:37 AM CDT) Anatomical Region Laterality Modality LEGS, LEG L, LEG R Ultrasound 11/23/2023 7:26 AM CDT Narrative 11/23/2023 12:22 PM CDT VASCULAR ULTRASOUND REPORT RODERICK HEATON Accession#: ?? [id number] : ?1940 ??Study Date: ?? 11/23/2023 7:26:56 AM Age: ?83 years ?? Tech: ? KBN/CRK Gender: F ?Referring MD: CHARLOTTE SPRINGER Site: [facility] Study performed: ?Lower extremity [...] DST ? 104 ? +--------+ + +-----+ BROKER DST ? 111 ? +--------+ + +-----+ PFA ? 88 ? +--------+ + +-----+ SFA PRX ? 111 ? +--------+ + +-----+ SFA MID ? 66 ? +--------+ + +-----+ SFA DST ? 415 ? 64 ? 6.5 ?? +--------+ + +-----+ COLLIN PRX ? 101 ? +--------+ + +-----+ COLLIN DST ? 41 ? +--------+ + +-----+ CAD DEVELOPER DST ? 80 ? +--------+ + +-----+ KAREN DST ? 38 ? +--------+ + +-----+ LAXMI DST -179 retro ? +--------+ + +-----+ DPA ?-34 retro ? +--------+ + +-----+ +--------+ + +-----+ LEFT ? Velocity cm/s PRE ? Ratio ? Velocity cm/s ? Phasicity ? +--------+ + +-----+ EIA DST ? 100 ? +--------+ + +-----+ BROKER DST ? 98 ? +--------+ + +-----+ PFA ? 73 ? +--------+ + +-----+ SFA PRX ? 100 ? +--------+ + +-----+ SFA MID ? 52 ? +--------+ + +-----+ SFA DST ? 44 ? +--------+ + +-----+ COLLIN PRX ? 674 ? 55 ? 12.3 +--------+ + +-----+ COLLIN DST ? 27 ? +--------+ + +-----+ CAD DEVELOPER DST ? 11 ? +--------+ + +-----+ [...] Accreditation Commission (IAC/Vascular), www.[email or web address].org/vascular Report generated by [email or web address]. ??Final ?? Procedure Note Wang Dela Cruz MD - 11/23/2023 VASCULAR ULTRASOUND REPORT RODERICK HEATON : 1940 Study Date: 11/23/2023 7:26:56 AM Age: 83 years Tech: ARISTIDES/JOHNNY Gender: F Referring MD: CHARLOTTE SPRINGER Site: [facility] Study performed: Lower extremity [...] +-----+ EIA DST 104 +--------+ + +-----+ BROKER DST 111 +--------+ + +-----+ PFA 88 +--------+ + +-----+ SFA PRX 111 +--------+ + +-----+ SFA MID 66 +--------+ + +-----+ SFA DST 415 64 6.5 +--------+ + +-----+ COLLIN PRX 101 +--------+ + +-----+ COLLIN DST 41 +--------+ + +-----+ CAD DEVELOPER DST 80 +--------+ + +-----+ KAREN DST 38 +--------+ + +-----+ LAXMI DST -179 retro +--------+ + +-----+ DPA -34 retro +--------+ + +-----+ +--------+ + +-----+ LEFT Velocity cm/s PRE Ratio Velocity cm/s Phasicity +--------+ + +-----+ EIA DST 100 +--------+ + +-----+ BROKER DST 98 +--------+ + +-----+ PFA 73 +--------+ + +-----+ SFA PRX 100 +--------+ + +-----+ SFA MID 52 +--------+ + +-----+ SFA DST 44 +--------+ + +-----+ COLLIN PRX 674 55 12.3 +--------+ + +-----+ COLLIN DST 27 +--------+ + +-----+ CAD DEVELOPER DST 11 +--------+ + +-----+ LAXMI DST [...] theIntersocietal Accreditation Commission (IAC/Vascular),www.[email or web address]/vascular Report generated by [email or web address]. Final Charlotte Springer MD US * TSH (09/29/2023 9:04 AM CDT) TSH 1.48 0.27 - 4.20 uIU/mL 09/29/2023 5:48 PM CDT [facility] Blood BLOOD SPECIMEN / Unknown Venipuncture [...] Rakel Connor DO CHEMISTRY Performing Organization Address City/[facility]/ZIP Co de Phone Number [facility] [address] [address], * (ABNORMAL) T4,FREE (09/29/2023 9:04 AM CDT) T4,FREE 1.78(H) 0.93 - 1.70 ng/dL 09/29/2023 5:48 PM CDT [facility] Blood BLOOD SPECIMEN / Unknown Venipuncture / Unknown 09/29/2023 9:04 AM CDT 09/29/2023 9:04 AM CDT Rakel Connor DO CHEMISTRY Performing Organization Address City/[facility]/ZIP Co de Phone Number [facility] [address] [address], * (ABNORMAL) XR DXA BONE DENSITY 2 SITES AXIAL (07/02/2019 11:48 AM QUARTER LINING SMOOTHER) Anatomical Region Laterality Modality Spine, HIPS, HIPL, HIPR Other Narrative 07/06/2019 11:01 AM QUARTER LINING SMOOTHER Please see scanned document for results of this study. Rakel Connor DO DEXA from Last 3 Months or Most Recently Relevant to Health Maintenance Advance Directives Documents on File Type Date Recorded Patient Donor Services Specialist Expl anation Healthcare Directive 07/19/2016 2:58 PM [...] 8:45 AM 09/01/2016 4:04 PM Care Teams Porter Marina Relationship Specialty Start Date End Date Maritza Rendon DO [address] [place] [address] PCP - General Family Practice 12/30/22 Kd Restrepo MD Endocrinology 11/24/11 Cody Veliz MD Rheumatology 11/24/11
--- OUTSIDE RECORDS SUMMARY | 2023-12-23 09:53 | XMS_ITS | Continuity of Care Document ---
Author Organization [facility] Address [address] [place] [address] Phone Care Team Providers Care Recreation Professor Name Role Phone Usha Dickinson Unavailable Unavailable [...] on Encounter [facility], [address], [place], [place], [id number], [place] tel:[phone] No Information [facility]. [facility], [address], [place], [place], [id number] , [place]. [phone] Office/Outpat ient Visit,Est, Mod [facility], [address], [place], [place], [id number], [place] tel:[phone] [facility] Other forms of scoliosis, thoracolumbar regionL2 wedge compression fracture, initial encounter for closed fractureSpondy lolisthesis, lumbar region 0 [facility]. [facility], [address], [place], [place], [id number] , [place]. tel:[phone] Referring Provider: Rakel Arvizu, [facility] [address] [place], [address]. tel:[phone] Office/Outpat ient Visit,Est, Mod [facility], [address], [facility] [place], [place], [id number], [place] tel:[phone] [facility] L2 wedge compression fracture, initial encounter for closed fractureOther forms of scoliosis, thoracolumbar regionSpondylo listhesis, lumbar region 0 Kwame Kerr. [facility], [address], [place], [place], [id number] , . tel:[phone] Referring Provider: Rakel Arvizu [employer] [address] [place], [address]. tel:[phone] Office/Outpat ient Visit,[facility], [facility] [place], [place] [facility], [address], [facility] [place], [place], [id number], [place] tel:[phone] [facility] [place] L2 wedge compression fracture, initial encounter for closed fractureOther forms of scoliosis, thoracolumbar regionSpondylo listhesis, lumbar region 0 Kwame Kerr. [facility], [address], [place], [place], [id number] , [place]. tel:[phone] Referring Provider: Rakel Arvizu [employer] [address] [place], [address]. tel:[phone] Family History Family Member Type Diagnosis Age At Onset No Information Payers Payer name Insurance type Covered republican ID Authoralethaa tishannon(s) Medicare MB [id number] [facility] [id number] [facility] [id number] Social History Type Description Quantity Date Captured [...]
--- OUTSIDE RECORDS SUMMARY | 2023-12-23 09:54 | XMS_ITS | Data Portability ---
Author Organization [facility], [facility] Address [address] [place] [address] Care Team Providers Care Rigging Helper Name Role Phone [facility] Primary Care Provider Assessment No assessment [...] [facility], [address], [place], [address], 09/14/2021 10:41:46 urinalysi s, dipstick 2021 022 [facility], [address], [address], [place], [address], 08/03/2021 11:48:36 Referral None recorded. Procedures None recorded. Surgeries None recorded. Imaging None recorded. Medication Orders Myrbetriq 50 mg tablet,ex tended release 2021 022 [email or web address] ([facility]), [address] [place], [address], 11/12/2021 11:33:16 Gemtesa 75 mg tablet 2021 022 [email or web address] Not available 11/12/2021 11:33:22 Gemtesa 75 mg tablet 2021 022 [id number], [address], [place], [address], 11/12/2021 11:33:54 Theracran 650 mg capsule 2019 020 [facility], [address] [place] [address], [address], 05/13/2020 10:33:26 Patient TargetsNo targets recorded. Patient Instructions Encounter Date Encounter Id Patient Instructions Last Modified By Organization Details Last Modified Time 04/28/2023 [id number] Over Active Blad betty (OAB): -Managed with [...] needed [email or web address] Not available 04/28/2023 11:58:26 12/06/2022 [id number] Test each progra m for at least 2 weeks, adjusting amplitude as needed. May remain on a program as long as it is effective. Return as needed for reprogramming. [email or web address] Not available 12/06/2022 10:55:41 04/09/2022 [id number] Test each progra m for at least 2 weeks, adjusting amplitude as needed. May remain on a program as long as it is effective. Return as needed for reprogramming. [email or web address] Not available 04/09/2022 12:34:22 Patient states t hat Gemtesa samples were effective, but the rx was too expensive, so she stopped taking. She would like to try the Gemtesa again, but wonders of it is ok t take every other day, to spread the prescription out, and decrease the expense. I will ask MICHELET Blanco. [email or web address] Not available 04/09/2022 12:37:43 11/12/2021 [id number] Over Active Blad betty (OAB): -Managed with [...] minutes [email or web address] Not available 11/12/2021 11:46:55 09/14/2021 [id number] Over Active Blad betty (OAB): -Managed with [...] issues rbourget Not available 09/14/2021 10:49:32 09/14/2021 [id number] Test each progra m for at least 2 weeks, adjusting amplitude as needed. May remain on a program as long as it is effective. Return as needed for reprogramming. [email or web address] Not available 09/14/2021 10:07:26 Patient states t hat Gemtessa samples were very effective, but it is not covered by her insurance. She was also given a rx for Myrbetriq. [email or web address] Not available 09/14/2021 10:08:49 08/03/2021 [id number] s/p interstim surescan -ok for MRIs -doing really well and pleased but occ with UUI 90% better, she is still bothered that she would do more and will give gemtesa 75mg--to see in 6-8 week with PA and with demetri. -to call EXTRACTION MACHINE OPERATOR re clitoral fusion/LS. -theracran (cranberry supplement) -to let me know if more utis Not available 08/03/2021 11:56:59 11/26/2020 [id number] Test each progra m for at least 2 weeks, adjusting amplitude as needed. May remain on a program as long as it is effective. Return as needed for reprogramming. [email or web address] Not available 11/27/2020 12:32:23 Reviewed the use of the smart lead programmer, and provided handout. Instructed the patient to lay down, with her legs above the level of her heart for at least 1 hour in the late afternoon. This may increase urinary frequency for a couple of hours in the evening, but should help to decrease the nocturia. [email or web address] Not available 11/27/2020 12:46:50 11/11/2020 [id number] sp interstim surescan -ok for MRIs -healing well -to see me in 12 months, will have her see demetri now for programmign options -doing really well and pleased but occ with UUI 90% better -to call EXTRACTION MACHINE OPERATOR re clitoral fusion/LS. -theracran (cranberry supplement) -to let me know if more utis Not available 11/11/2020 12:16:02 05/13/2020 [id number] sp interstim 6 w [place] ago -ok for MRIs -healing well -to see me in 6 months, to call if any issues or needs programming -to call EXTRACTION MACHINE OPERATOR re clitoral fusion/LS. -to start theracran (cranberry supplement) -to let me know if more utis Not available 05/13/2020 10:31:23 04/15/2020 [id number] sp Interstim -- healing well educated more today to see in 1mo, reminded to call if any questions with the lead programmer. Not available 04/15/2020 10:12:25 Reason for Referral None Reported. Results Created Date Observation Date Name Description Value Unit Range Abnormal Flag LastModifiedBy Organization Detail LastModifiedTime 08/03/19 22 08/03/2021 UA DIP CS ADVAN TUS color -advantus YELLOW yellow Not Available [facility] [address] [facility] [address], [place], [address], 08/03/2021 11:48:36 08/03/19 22 08/03/2021 UA DIP CS ADVAN TUS appearance -advantus CLEAR clear Not Available [facility] [address] [facility] [address], [place], [address], 08/03/2021 11:48:36 08/03/19 22 08/03/2021 UA DIP CS ADVAN TUS glucose -advantus NEGATI VE mg/dL negati ve Not Available [facility] [address] [place] [address], [place], [address], 08/03/2021 11:48:36 08/03/19 22 08/03/2021 UA DIP CS ADVAN TUS bilirubin -advantus NEGATI VE negati ve Not Available [facility] [address] [place] [address], [place], [address], 08/03/2021 11:48:36 08/03/19 22 08/03/2021 UA DIP CS ADVAN TUS ketones -advantus NEGATI VE mg/dL negati ve Not Available [facility] [address] [place] [address] [address], [place], [address], 08/03/2021 11:48:36 08/03/19 22 08/03/2021 UA DIP CS ADVAN TUS sp. gravity -advantus 1.010 1.010- 1.025 Not Available [facility] [address] [place] [address], [place], [address], 08/03/2021 11:48:36 08/03/19 22 08/03/2021 UA DIP CS ADVAN TUS pH -advantus 5.5 5.0-8. 0 Not Available [facility] [address] [place] [address] [address], [place], [address], 08/03/2021 11:48:36 08/03/19 22 08/03/2021 UA DIP CS ADVAN TUS protein -advantus NEGATI VE mg/dL negati ve Not Available [facility] [address] [place] [address], [place], [address], 08/03/2021 11:48:36 08/03/19 22 08/03/2021 UA DIP CS ADVAN TUS urobilinogen -advantus 0.2 normal Not Available [facility] [address] [place] [address], [place], [address], 08/03/2021 11:48:36 08/03/19 22 08/03/2021 UA DIP CS ADVAN TUS nitrites -advantus NEGATI VE negati ve Not Available [facility] [address] [place] [address], [place], [address], 08/03/2021 11:48:36 08/03/19 22 08/03/2021 UA DIP CS ADVAN TUS blood -advantus SMALL negati ve abnormal Not Available [facility] [address] [place] [address], [place], [address], 08/03/2021 11:48:36 08/03/19 22 08/03/2021 UA DIP CS ADVAN TUS leukocytes -advantus TRACE negati ve abnormal Not Available [facility] [address] [place] [address], [place], [address], 08/03/2021 11:48:36 08/03/19 22 08/03/2021 UA DIP CS ADVAN TUS performed by Geena Ingram Not Available [facility] [address] [place] [address], [place], [address], 08/03/2021 11:48:36 08/03/19 22 08/03/2021 UA DIP CS ADVAN TUS total urine volume (mL) 20 /mL Not Available [facility] [address] [place] [address], [place], [address], 08/03/2021 11:48:36 08/03/19 22 08/03/2021 UA MICRO SCOPI C U-WBC 0 - 2 [hpf] 0 - 2 Not Available [facility] [address] [place] [address], [place], [address], 08/03/2021 11:48:38 08/03/19 22 08/03/2021 UA MICRO SCOPI C U-RBC 0 - 2 [hpf] 0 - 2 Not Available [facility] [address] [facility] [address], [place], [address], 08/03/2021 11:48:38 08/03/19 22 08/03/2021 UA MICRO SCOPI C bacteria Small [hpf] negati ve abnormal Not Available [facility] [address] [place] [address], [place], [address], 08/03/2021 11:48:38 08/03/19 22 08/03/2021 UA MICRO SCOPI C squamous epi Small /lpf negati ve,sma ll Not Available [facility] [address] [place] [address], [place], [address], 08/03/2021 11:48:38 09/15/19 22 09/14/2021 UA DIP CS ADVAN TUS color -advantus YELLOW yellow Not Available [facility] [address] [place] [address], [place], [address], 09/14/2021 10:41:46 09/15/19 22 09/14/2021 UA DIP CS ADVAN TUS appearance -advantus CLEAR clear Not Available [facility] [address] [place] [address], [place], [address], 09/14/2021 10:41:46 09/15/19 22 09/14/2021 UA DIP CS ADVAN TUS glucose -advantus NEGATI VE mg/dL negati ve Not Available [facility] [address] [place] [address], [place], [address], 09/14/2021 10:41:46 09/15/19 22 09/14/2021 UA DIP CS ADVAN TUS bilirubin -advantus NEGATI VE negati ve Not Available [facility] [address] [place] [address], [place], [address], 09/14/2021 10:41:46 09/15/19 22 09/14/2021 UA DIP CS ADVAN TUS ketones -advantus NEGATI VE mg/dL negati ve Not Available [facility] [address] [facility] [address], [place], [address], 09/14/2021 10:41:46 09/15/19 22 09/14/2021 UA DIP CS ADVAN TUS sp. gravity -advantus 1.010 1.010- 1.025 Not Available [facility] [address] [facility] [address], [place], [address], 09/14/2021 10:41:46 09/15/19 22 09/14/2021 UA DIP CS ADVAN TUS pH -advantus 6.0 5.0-8. 0 Not Available [facility] [address] [facility] [address], [place], [address], 09/14/2021 10:41:46 09/15/19 22 09/14/2021 UA DIP CS ADVAN TUS protein -advantus NEGATI VE mg/dL negati ve Not Available [facility] [address] [place] [address], [place], [address], 09/14/2021 10:41:46 09/15/19 22 09/14/2021 UA DIP CS ADVAN TUS urobilinogen -advantus 0.2 normal Not Available [facility] [address] [place] [address], [place], [address], 09/14/2021 10:41:46 09/15/19 22 09/14/2021 UA DIP CS ADVAN TUS nitrites -advantus NEGATI VE negati ve Not Available [facility] [address] [place] [address], [place], [address], 09/14/2021 10:41:46 09/15/19 22 09/14/2021 UA DIP CS ADVAN TUS blood -advantus SMALL negati ve abnormal Not Available [facility] [address] [facility] [address], [place], [address], 09/14/2021 10:41:46 09/15/19 22 09/14/2021 UA DIP CS ADVAN TUS leukocytes -advantus NEGATI VE negati ve Not Available [facility] [address] [facility] [address], [place], [address], 09/14/2021 10:41:46 09/15/19 22 09/14/2021 UA DIP CS ADVAN TUS performed by Bibi Ruiz Not Available [facility] [address] [facility] [address], [place], [address], 09/14/2021 10:41:46 09/15/19 22 09/14/2021 UA DIP CS ADVAN TUS total urine volume (mL) 20cc /mL Not Available [facility] [address] [place] [address], [place], [address], 09/14/2021 10:41:46 09/15/19 22 09/14/2021 UA MICRO SCOPI C U-WBC 0 - 2 [hpf] 0 - 2 Not Available [facility] [address] [facility] [address], [place], [address], 09/14/2021 10:41:47 09/15/19 22 09/14/2021 UA MICRO SCOPI C U-RBC 0 - 2 [hpf] 0 - 2 Not Available [facility] [address] [facility] [address], [place], [address], 09/14/2021 10:41:47 09/15/19 22 09/14/2021 UA MICRO SCOPI C bacteria Small [hpf] negati ve abnormal Not Available [facility] [address] [place] [address], [place], [address], 09/14/2021 10:41:47 09/15/19 22 09/14/2021 UA MICRO SCOPI C squamous epi Small /lpf negati ve,sma ll Not Available [facility] [address] [place] [address], [place], [address], 09/14/2021 10:41:47 04/02/20 20 04/01/2020 XR, abdom en No observ ation record ed. [facility] [address] [place], [address], 04/02/2020 11:32:57 Result Notes None recorded. Problems Name Status Onset Date Resolution Date Notes Provider Name and Address Organization Details Recorded Time Chronic cystitis Active 2018 N30.20 : Chronic cystitis Not Available [facility] 0 23:40:26 Overactive urinary bladder Active 2018 N32.81 : Bladder muscle dysfunction - overactive Not Available [facility] 0 23:40:26 Benign neoplastic disease Active 2019 Daphne felix [facility] 0 09:58:09 Tear film insufficiency Active 2019 Daphne felix [facility] 0 09:58:21 Gastroesophageal reflux disease Active 2019 Daphne felix [facility] 0 09:58:28 Hyperlipidemia Active 2019 Daphne felix [facility] 0 09:58:36 Heart disease Active 2022 Radhika felix [facility] 3 11:27:33 Problem Notes None recorded. Procedures Surgical History Date Name Laterality Status Provider Name and Address Organization Details Recorded Time 04/28/20 23 Sacral neuromodulation w/o reprogramming completed ELMA Blanco [address] [place] [address],[address], [place], [address], [facility] 04/28/2023 11:57:28 04/28/20 23 Bladder Scan completed Radhika felix [facility] 04/28/2023 11:36:21 12/07/19 23 Sacral neuromodulation w/o reprogramming completed Demetri felix [facility] 12/06/2022 11:08:45 04/09/20 22 Sacral Stimulator Reprogramming completed Demetri felix [facility] 04/09/2022 12:49:34 09/15/19 22 Bladder Scan completed Merry Ocampo null, [facility] 09/14/2021 10:25:15 09/15/19 22 Sacral neuromodulation w/o reprogramming completed Demetri Bosch null, [facility] 09/14/2021 10:15:12 08/03/19 22 Past Data Reviewed completed Charlotte Smith MD [address] [place] [address],[address], [place], [address], [facility] 08/03/2021 08:29:52 08/03/19 22 Bladder Scan completed Usha Corado null, [facility] 08/03/2021 11:50:03 11/27/19 21 Sacral Stimulator Reprogramming completed Demetri Bosch null, [facility] 11/27/2020 12:44:01 09/17/19 20 Implant neuroelectrodes completed Not Available [facility] 12/13/2019 18:11:39 11/29/19 19 Insert bladder catheter completed Not Available [facility] 12/13/2019 18:11:39 11/14/19 15 Colonoscopy completed Lucinda Nuñez null, [facility] 11/11/2020 11:57:08 11/29/19 09 Total hip arthroplasty completed Not Available [facility] 12/13/2019 18:11:39 11/29/19 00 Unlisted procedure breast completed Not Available [facility] 12/13/2019 18:11:39 Appendectomy add-on completed Not Available [facility] 12/13/2019 18:11:39 Imaging Results Imaging Date Name Status LastModified by Organiz ation Details LastModified Time 04/01/2020 XR, abdomen completed [facility] [address] [place], [address], 04/02/2020 11:32:57 Procedure Notes None recorded. Medical Equipment None Reported. Allergies Allergen ID Allergen Name Allergen Category Reaction Reaction Severity Criticality Documentation Date Start Date Code Code System Note Provider Name and Address Organization Details Recorded Time 19861108 Nitroimid azole (substanc e) medicatio n Not available Not available Not available 12/12/2019 16561 5001 SNOMED Not Available [facility] 0 23:50:45 846343 sulindac medicatio n Not available Not available Not available 12/12/2019 63433 RxNorm Not Available [facility] 0 23:50:45 010646 Medicinal product containin g penicilli n and acting as antibacte rial agent (product) medicatio n itching Not available Not available 12/12/2019 07653 05 SNOMED Not Available [facility] 0 23:50:45 991502 atorvasta tin medicatio n Not available Not available Not available 12/12/2019 25524 RxNorm Not Available [facility] 0 23:50:45 037189 tetracycl ine medicatio n Not available Not available Not available 12/12/2019 33880 RxNorm Not Available [facility] 0 23:50:45 209127 alendrona te sodium medicatio n Not available Not available Not available 12/12/201924727 2 RxNorm Not Available [facility] 0 23:50:45 915244 amoxicill in medicatio n Not available Not available Not available 12/12/2019 723 RxNorm Not Available [facility] 0 23:50:45 814951 oxybutyni n chloride Not available dizziness Not available Not available 12/12/2019 53908 RxNorm fatig ue Not Available [facility] 0 23:50:45 476992 aspirin medicatio n Not available Not available Not available 12/12/2019 1191 RxNorm Not Available [facility] 0 23:50:46 356157 losartan Not available Not available Not available Not available 12/12/2019 08417 RxNorm Not Available [facility] 0 23:50:46 974750 estrogens , conjugate d ([facility]) medicatio n Not available Not available Not available 12/12/2019 4099 RxNorm Not Available [facility] 0 23:50:46 704129 ciproflox acin medicatio n Not available Not available Not available 12/12/2019 2551 RxNorm Not Available [facility] 0 23:50:46 932766 hydrochlo rothiazid e medicatio n Not available Not available Not available 12/12/2019 5487 RxNorm Not Available [facility] 0 23:50:46 799330 metoprolo l Not available Not available Not available Not available 12/12/2019 6918 RxNorm Not Available [facility] 0 23:50:46 928100 naproxen medicatio n Not available Not available Not available 12/12/2019 7258 RxNorm Not Available [facility] 0 23:50:46 708150 clindamyc in Not available Not available Not available Not available 12/12/2019 2582 RxNorm Not Available [facility] 0 23:50:46 259466 Substance with sulfonami de structure and antibacte rial mechanism of action (substanc e) medicatio n Not available Not available Not available 11/11/2020 99000 8003 SNOMED Lucinda Vossen [facility] 1 11:56:30 979398 Myrbetriq medicatio n swelling Not available Not available 10/05/2021 03989 92 RxNorm RODERICK THOMSON [facility] 2 13:18:14 115612 Sambucus Elderber[facility] y Immune medicatio n Not [...] COVID-19 Ag Self Test kit [facility] 04/28 completed Not Available Not Available Not Available Vitals Date Recorded Body height Body mass index (BMI) Body weight Provider Name and Address Organization Details Last Updated DateTime 04/09/2022 154.94 cm 27.8 kg/m2 39622.08 g Demetri Bosch [facility] 04/09/2022 12:13:52 Date Recorded Body height Body mass index (BMI) Body weight Provider Name and Address Organization Details Last Updated DateTime 12/06/2022 154.94 cm 25.5 kg/m2 38525.97 g Demetri Bosch [facility] 12/06/2022 10:41:56 Date Recorded Body height Body mass index (BMI) Body weight Provider Name and Address Organization Details Last Updated DateTime 04/15/2020 157.48 cm 26.3 kg/m2 76011.3 g Daphne Montague [facility] 04/15/2020 10:05:09 Date Recorded Body height Body mass index (BMI) Body weight Provider Name and Address Organization Details Last Updated DateTime 04/28/2023 154.94 cm 25.5 kg/m2 26772.97 g Radhika Mathis [facility] 04/28/2023 11:25:35 Date Recorded Body height Body mass index (BMI) Body weight Provider Name and Address Organization Details Last Updated DateTime 05/13/2020 157.48 cm 26.3 kg/m2 44459.3 g Daphne Montague [facility] 05/13/2020 10:15:26 Date Recorded Body height Body mass index (BMI) Body weight Provider Name and Address Organization Details Last Updated DateTime 11/11/2020 157.48 cm 26.3 kg/m2 29151.3 g Lucinda Gordondhruv [facility] 11/11/2020 11:56:20 Date Recorded Body height Body mass index (BMI) Body weight Provider Name and Address Organization Details Last Updated DateTime 11/26/2020 158.75 cm 27.2 kg/m2 95554.45 zeus Demetri Bosch [facility] 11/26/2020 10:47:36 Date Recorded Body height Body mass index (BMI) Body weight Provider Name and Address Organization Details Last Updated DateTime 08/03/2021 158.75 cm 27.2 kg/m2 58856.45 zeus Usha Corado [facility] 08/03/2021 11:35:42 Date Recorded Body height Body mass index (BMI) Body weight Provider Name and Address Organization Details Last Updated DateTime 09/14/2021 158.75 cm 26.5 kg/m2 91351.08 zeus Demetri Danitza [facility] 09/14/2021 09:54:39 Date Recorded Body height Body mass index (BMI) Body weight Provider Name and Address Organization Details Last Updated DateTime 09/14/2021 158.75 cm 26.5 kg/m2 77103.08 zeus Merry Ocampo [facility] 09/14/2021 10:08:57 Date Recorded Body height Body mass index (BMI) Body weight Provider Name and Address Organization Details Last Updated DateTime 11/12/2021 154.94 cm 27.8 kg/m2 97454.08 zeus Merry Ocampo [facility] 11/12/2021 11:32:20 Social History Question Answer Notes LastModified by Organizat ion Details LastModified Time Tobacco Smoking Status Never Smoker Not Available [facility] 12/13/2019 02:00:45 What Is Your Level Of [...] Of Your Most Recent Tobacco Screening? 12/06/2022 [email or web address] Information not available 12/06/2022 What Is Your [...] conjugate PCV 13 07/04/2017 completed STEPHEN Germain [facility] 04/28/2023 11:25:40 Past Encounters Encounter ID Performer Location Encounter Start Date Encounter Closed Date Diagnosis/Indication Diagnosis SNOMED-CT Code [id number] [facility] [address] [place] [address] 04/15/2020 10:02:52 04/25/2020 12:54:57 Overactive urinary bladder [id number] Urge incon tinence of urine [id number] [facility] [address] [facility] [place] [address] 05/13/2020 10:14:48 05/13/2020 14:22:18 Overactive urinary bladder [id number] Urge incon tinence of urine [id number] History of urinary tract infection [id number] [facility] [address],[place] [address] [place] [address] 11/11/2020 11:46:55 11/11/2020 13:40:18 Overactive urinary bladder [id number] Urge incon tinence of urine [id number] Demetri [facility] [address] [place] [phone] 11/26/2020 10:15:12 12/02/2020 15:37:48 Overactive urinary bladder [id number] Nocturia [id number] MD Dino [facility] [address] [place] [phone] 08/03/2021 11:31:50 08/03/2021 12:09:22 Overactive urinary bladder [id number] Urge incon tinence of urine [id number] Nocturia [id number] ELMA [facility] [address] [place] [address] [place] [phone] 09/14/2021 10:06:36 09/14/2021 14:16:12 Overactive urinary bladder [id number] Urge incon tinence of urine [id number] Nocturia [id number] [facility] [address] [place] [address] [place] [address] [phone] 0 09/14/2021 09:30:06 09/14/2021 14:31:59 Overactive urinary bladder [id number] ELMA Blanco [facility] [address] [place] [address] [phone] 0 11/12/2021 11:29:59 11/12/2021 12:37:25 Overactive urinary bladder [id number] Urge incon tinence of urine [id number] Nocturia [id number] Demetri Bosch [facility] [address] [place] [address] [phone] 0 04/09/2022 11:43:46 04/09/2022 13:38:20 Overactive urinary bladder [id number] Demetri Danitza [facility] [address] [place] [address] [phone] 0 12/06/2022 10:28:13 12/06/2022 11:24:29 Overactive urinary bladder [id number] ELMA Blanco [facility] [address] [place] [address] [phone] 0 04/28/2023 11:22:38 04/28/2023 12:04:03 Overactive urinary bladder [id number] Urge incon tinence of urine [id number] Nocturia [id number] Health Concerns Section Related Observation LastModified by Organization Detai ls LastModified Time None Recorded Concern Status LastModified by Organization Details LastModified Time None Recorded Advance Directives Directive None Recorded Payers Encounter Date Sequence Insurance Name Policy Number Policy Betancourt Covered Member ID Betancourt Member ID Guarantor Name 04/28/2023 1 MEDICARE B-MD: [facility] Patsy Aramis Jerel [id number] Patsy Aramis Jerel 04/28/2023 2 [facility] [id number] Patsy Beltrán [id number] Patsy Beltrán 12/06/2022 1 MEDICARE B-MD: [facility] Patsy Aramis Jerel [id number] Patsy Aramis Jerel 12/06/2022 2 [facility] [id number] Patsy Aramis Jerel [id number] Patsy Aramis Jerel 04/09/2022 1 MEDICARE B-MD: [employer] Patsy A Wood [id number] Patsy A Wood 04/09/2022 2 [place] [id number] Patsy A Wood [id number] Patsy A Wood 11/12/2021 1 [place] [employer] Patsy A Wood [id number] Patsy A Wood 11/12/2021 2 [place] [id number] Patsy A Wood [id number] Patsy A Wood 09/14/2021 1 [place] [employer] Patsy A Wood [id number] Patsy A Wood 09/14/2021 2 [place] [id number] Patsy A Wood [id number] Patsy A Wood 09/14/2021 1 [place] [employer] Patsy A Wood [id number] Patsy A Wood 09/14/2021 2 [place] [id number] Patsy A Wood [id number] Patsy A Wood 08/03/2021 1 [place] [employer] Patsy A Wood [id number] Patsy A Wood 08/03/2021 2 [place] [id number] Patsy A Wood [id number] Patsy A Wood 11/26/2020 1 [place] [employer] Patsy A Wood [id number] Patsy A Wood 11/26/2020 2 [place] [id number] Patsy A Wood [id number] Patsy A Wood 11/11/2020 1 [place] [employer] Patsy A Wood [id number] Patsy A Wood 11/11/2020 2 [place] [id number] Patsy A Wood [id number] Patsy A Wood 05/13/2020 1 [place] [employer] Patsy A Wood [id number] Patsy A Wood 05/13/2020 2 [place] [id number] Patsy A Wood [id number] Patsy A Wood 04/15/2020 1 [place] [employer] Patsy A Wood [id number] Patsy Beltrán 04/15/2020 2 [place] [id number] Patsy Beltrán [id number] Patsy Beltrán Notes Date Note Type Note Provider Name and Address Organization Details Recorded Time 04/15/2020 text/html HPI Notes: sp interstim lead and IPG 9-29 doing well on program 3 vagianl was concerned as it was timing out Charlotte Smith MD [address] [place] [address],[address] [place] [address], [phone], [facility] 04/15/2020 10:12:37 05/13/2020 text/html HPI [...] to program 4 vagianl. Charlotte Smith MD [address] [place] [address],[address], [place], [address], [facility] 05/13/2020 10:32:36 11/11/2020 text/html HPI Notes: SP Interstim lead and IPG SureScan 9- for OAB/UUI sx. had successful PNE prior, [...] be almost every hour Charlotte Smith MD [address] [place] [address],[address], [place], [address], [facility] 11/11/2020 12:16:47 08/03/2021 text/html HPI [...] on Lasix as needed Charlotte Smith MD [address] [place] [address],[address], [place], [address], [facility] 08/03/2021 11:57:51 09/14/2021 text/html HPI Notes: [...] to be almost every hour. ELMA Blanco [address] [place] [address],[address], [place], [address], [facility] 09/14/2021 10:49:41 11/12/2021 text/html HPI [...] with sjorgrens. This visit was conducted using HackerRank phone technology. Prior to conducting our health visit, the patient and I discussed the risks, benefits and alternatives to phone visits. The patient elected to proceed with the phone visit. ELMA Blanco [address] [facility],[address], [place], [address], [facility] 11/12/2021 11:50:24 12/06/2022 text/html HPI [...] changed Rate chaanged Resolution changed Demetri felix, [facility] 12/06/2022 11:08:58 04/28/2023 text/html HPI Notes: 04/28: [...] to be almost every hour. ELMA Blanco [address] [facility],[address], [place], [address], [facility] 04/28/2023 11:58:40 OBGyn Episode No OBEpisode recorded.
== END 2023-12-23 09:52 | disposition home or self-care (01) ==
LOC: WOUND 09:51
PROVIDERS: PCP Physician Assistant Medical; Visit Provider Physician Assistant
DX: I87.2 Venous insufficiency (chronic) (peripheral) (principal); I73.9 Peripheral vascular disease, unspecified; L97.322 Non-pressure chronic ulcer of left ankle with fat layer exposed
CPT/HCPCS: 97597

== ENCOUNTER 2023-12-30 10:50 | Outpatient (CLI) | payer OTHER, SELFPAY ==
--- OUTSIDE RECORDS SUMMARY | 2023-12-30 10:52 | XMS_ITS | Continuity of Care Document ---
Author Organization [facility] Address [address] [place] [address] Phone Care Team Providers Care Legal Advisor Name Role Phone Helder Medina MD Unavailable [...] Antibodies Dna Antibody, Single Strand Dna Antibody, [place] Nuclear Antigen Antibodies Rheumatoid Factor, IGM Rheumatoid Factor, IGG, IGA Advance Directives Directive Yes / No Effective Date File Name No Information Encounters Encounter Description Practice Location Reason(s) For Visit Diagnoses Date Provider Providers Copied on Encounter [facility], [address], [place], [address], [place] tel:[phone] [facility], No Information Apr-- [address] Adam Pendleton. [address], [address], [place], [address], [place]. tel:[phone] Referring Provider: Helder Jain, [address], [place], [address]. tel:[phone] Office/Outpa tient Visit, Est [facility], [address], [place], [address], [place] tel:[phone] [facility], Sjogren syndrome w/ inflammatory arthritisPain in left foot Apr- 0 4 Lebedoff Helder. [address], [address], [place], [address], [place]. tel:[phone] Referring Provider: Helder Jain, [address], [place], [address]. tel:[phone] Office/Outpa tient Visit, Est [facility], [address], [place], [address], [place] tel:[phone] [facility], Sjogren syndrome w/ inflammatory arthritisPrim mauri osteoarthriti s, right hand 3 Lebedoff Helder. [address], [address], [place], [address], [place]. tel:[phone] Referring Provider: Helder Jain, [address], [place], [address]. tel:[phone] Office/Outpa tient Visit, Est [facility], [address], [place], [address], [place] tel:[phone] [facility], Sicca syndrome, unspecifiedWe akness November- 0 3 Lebedoff Helder. [address], [address], [place], [address], [place]. tel:[phone] Referring Provider: Helder Jain, [address], [place], [address]. tel:[phone] Office/Outpa tient Visit, Est [facility], [address], [place], [address], [place] tel:[phone] [facility], Sicca syndrome, unspecifiedPa in in left shoulder Apr- 2 Adam Pendleton. [address], [address], [place], [address], [place]. tel:[phone] Referring Provider: Helder Jain, [address], [place], [address]. tel:[phone] Office/Outpa tient Visit, Est [facility], [address], [place], [address], [place] tel:[phone] [facility], Sicca syndrome, unspecifiedDy spnea Oct- 2 Adam Pendleton. [address], [address], [place], [address], [place]. tel:[phone] Referring Provider: Helder Jain, [address], [place], [address]. tel:[phone] Office/Outpa tient Visit, Est [facility], [address], [place], [address], [place] tel:[phone] [facility], Sicca syndrome, unspecifiedOt [facility] drug therapyPrimar y OA of right handDyspnea Apr- 1 Adam Pendleton. [address], [address], [place], [address], [place]. tel:[phone] Referring Provider: Helder Jain, [address], [place], [address]. tel:[phone] Office/Outpa tient Visit, New [facility], [address], [place], [address], [place] tel:[phone] [facility], Sicca syndrome, unspecifiedPa in in rt ankleOther [place] [facility] drug therapy 1 Adam Pendleton. [address], [address], [place], [address], [place]. tel:[phone] Referring Provider: Helder Medina G, [address], [place], [address]. tel:[phone] [facility], [address], [place], [address], [place] tel:[phone] [facility] No Information 1 Mo Sullivan. [facility] [address] [place] [address] [address], [place], [address], [place]. tel:[phone] Family History Family Member Type Diagnosis Age At Onset No Information Immunizations Vaccine Date Status Comments COVID-19 Moderna administered Source: Ot er Provider COVID-19 Pfizer administered Note: 1 ; Source: Other Provider Payers Payer name Insurance type Covered democrat ID Authoriza tion(s) [employer] Medicare Adv [id number] Social History Type Description Quantity Date Captured [...] Order Fo ot X-ray; Complete (3+ views) (45255), Sent on: Sent History Of Present Illness [...]
--- OUTSIDE RECORDS SUMMARY | 2023-12-30 10:52 | XMS_ITS | Clinical Summary ---
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 09/27 [...] Date Anticoagulation monitoring, INR range 2-3 [Z79.01]; [place] [facility] 2.5-3.0 12/06/2016 1 Pessary maintenance 02/25/2016 [...] Department Care Team Description 12/12/2023 Lab Requisition [facility] [phone] Unknown, Doctor 12/09/2023 Telephone [facility] [address] [place] [address] Charlotte Springer MD Care Coordination 12/05/2023 11:00 AM CDT Office Visit [facility] [address] [place] [address] Charlotte Springer MD Follow Up (LLE wound follow up ) 12/05/2023 8:56 AM CDT - 12/05/2023 11:59 PM CDT Hospital Encounter [facility] [address] [place] [address] Charlotte Springer MD Venous insufficiency; Venous stasis ulcer of ankle, left (HC) 12/05/2023 Travel 11/23/2023 9:30 AM CDT Office Visit [facility] [address] [place] [address] Charlotte Springer MD Ankle Pain/problem (L medial malleolar ulcer) 11/23/2023 6:47 AM CDT - 11/23/2023 11:59 PM CDT Hospital Encounter [facility] [address] [place] [address] Charlotte Springer MD PAD (peripheral artery disease) (HC) 11/22/2023 Travel 09/29/2023 9:00 AM CDT Orders Only [facility] [address] [facility] [place] [address] Lab, Farm Outside Order (Kd Restrepo MD PA 07/07/2023) 09/29/2023 Travel from Last 3 Months Immunizations Name Administration Dates Next Due AMB INFLUENZA IIV3 (AGE 65+ YRS) PF (Flu Clinic Only) 03/23/2017 AMB Influenza, IIV3 (Age >=3 years) Preserve Free (Flu Clinic Only) 04/08/2009 AMB Influenza, IIV3 (Age >=3 years)(Flu Clinic Only) 04/06/2013,04/16/2011,04/24/2008 COVID-19 vaccine ([employer] 30mcg/0.3mL) PF, MDV 09/02/2020,08/12/2020 Influenza A (H1N1), [...] Description 02/28/2024 10:00 AM CDT Office Visit [facility] [address] [address] [place] [address] [place] [address] Health Maintenance Due Date Last Done Comments [...] 01/13/2016, 12/18/2010 Medical Devices Implanted Type Area Casting Finisher Device Identifier Shelf Expiration Date Model / Serial / Lot Lead Kit 4.32mm Spacing 28cm Length Interstim - [id number] Implanted:Qty: 1 on 04/01/2020 by Charlotte Smith MD at [facility] N/A: Sacrum [employer] Pain Therapy 09/30/2021 [id number] / / [id number] Stimulator 7.7mm 14cc Interstim Ii - [id number] Implanted:Qty: 1 on 04/01/2020 by Charlotte Smith MD at [facility] N/A: Sacrum [employer] Pain Therapy 03/31/2021 [id number] / [id number] / Description:PIN [id number] Procedures Procedure Name Priority Date/Time Associated Diagnosis [...] 2 SITES AXIAL Routine 07/02/2019 11:48 AM BASE REMOVER Osteopenia of multiple sites from Last 3 Months or Most Recently Relevant to Health Maintenance Results * (ABNORMAL) REFERRAL ID/SUSC,NONURINE (12/08/2023 11:47 AM CDT) CULTURE RESULT(A) 12/17/2023 2:44 PM CDT [facility] CULTURE 1+ Acinetobacter species 12/17/2023 2:44 PM CDT [facility] Other (Left Leg) Client Collect / Unknown 12/08/2023 11:47 AM CDT 12/12/2023 10:11 PM CDT Narrative Organism Antibiotic Method Susceptibility Acinetobacter species TRIMETHOPRIM/SULF S Acinetobacter species GENTAMICIN S Acinetobacter species CEFTAZIDIME R Acinetobacter species LEVOFLOXACIN S Acinetobacter species CIPROFLOXACIN I Acinetobacter species PIPERACILLIN/TAZO I Acinetobacter species AMPICILLIN/SULBACTAM S Acinetobacter species TOBRAMYCIN S Acinetobacter species MEROPENEM S Doctor Unknown MICROBIOLOGY Performing Organization Address City/State/[facility] Co de Phone Number [facility] [address] [place] [address], * US VENOUS INSUFFICIENCY LOWER EXTREMITY BILATERAL [...] US VENOUS INSUFFICIENCY LOWER EXTREMITY BILATERAL LOCATION: [facility] DATE: 12/05/2023 INDICATION: Lower extremity [...] when greater than 600 ms flow reversal. [facility] Former vein reflux reported as greater than 350 [...] US VENOUS INSUFFICIENCY LOWER EXTREMITY BILATERAL LOCATION: [facility] DATE: 12/05/2023 INDICATION: Lower extremity [...] reported when greater than 600ms flow reversal. [facility] Former vein reflux reported as greater than 350 [...] VASCULAR ULTRASOUND REPORT RODERICK HEATON Accession#: ?? [id number] : ?1940 ??Study Date: ?? 11/23/2023 7:17:22 AM Age: ?83 years ?? Tech: ? KBN/CRK Gender: F ?Referring MD: CHARLOTTE SPRINGER Site: [facility] Vascular [facility] Study performed: ?Lower extremity resting [...] ? Index +-----+ +--------+ +-----+ 1.24 ?241 ?LEAD SALES CONSULTANT ?107 ? 0.55 +-----+ +--------+ +-----+ 1.23 ?238 ?DPA ?147 ? 0.76 +-----+ +--------+ +-----+ 0.63 ?122 ? Digit 1 ?45 ? 0.23 +-----+ +--------+ +-----+ Wang Dela Cruz MD. Electronically signed on 11/23/2023 12:17:56 PM This study was performed and interpreted by a service accredited by the Intersocietal Accreditation Commission (IAC/Vascular), www.intersocietal.org/vascular Report generated by [employer]. ??Final ?? Procedure Note Wang Dela Cruz MD - 11/23/2023 VASCULAR ULTRASOUND REPORT RODERICK HEATON : 1940 Study Date: 11/23/2023 7:17:22 AM Age: 83 years Tech: ARISTIDES/OJHNNY Gender: F Referring MD: CHARLOTTE SPRINGER Site: [facility] Vascular [facility] Study performed: Lower extremity resting [...] 194 Index +-----+ +--------+ +-----+ 1.24 241 LEAD SALES CONSULTANT 107 0.55 +-----+ +--------+ +-----+ 1.23 238 DPA 147 0.76 +-----+ +--------+ +-----+ 0.63 122 Digit 1 45 0.23 +-----+ +--------+ +-----+ Wang Dela Cruz MD. Electronically signed on 11/23/2023 12:17:56 PM This study was performed and interpreted by a service accredited by theIntersocietal Accreditation Commission (IAC/Vascular),www.intersocietal.org/vascular Report generated by [employer]. Final Charlotte Springer MD US * US ARTERIAL LOWER EXTREMITY BILATERAL (11/23/2023 8:37 AM CDT) Anatomical Region Laterality Modality LEGS, LEG L, LEG R Ultrasound 11/23/2023 7:26 AM CDT Narrative 11/23/2023 12:22 PM CDT VASCULAR ULTRASOUND REPORT RODERICK HEATON Accession#: ?? [id number] : ?1940 ??Study Date: ?? 11/23/2023 7:26:56 AM Age: ?83 years ?? Tech: ? KBN/CRK Gender: F ?Referring MD: CHARLOTTE SPRINGER Site: [facility] Study performed: ?Lower extremity duplex US, [...] DST ? 104 ? +--------+ + +-----+ DIGITAL PHOTOGRAPHER DST ? 111 ? +--------+ + +-----+ PFA ? 88 ? +--------+ + +-----+ SFA PRX ? 111 ? +--------+ + +-----+ SFA MID ? 66 ? +--------+ + +-----+ SFA DST ? 415 ? 64 ? 6.5 ?? +--------+ + +-----+ COLLIN PRX ? 101 ? +--------+ + +-----+ COLLIN DST ? 41 ? +--------+ + +-----+ LEAD SALES CONSULTANT DST ? 80 ? +--------+ + +-----+ KAREN DST ? 38 ? +--------+ + +-----+ LAXMI DST -179 retro ? +--------+ + +-----+ DPA ?-34 retro ? +--------+ + +-----+ +--------+ + +-----+ LEFT ? Velocity cm/s PRE ? Ratio ? Velocity cm/s ? Phasicity ? +--------+ + +-----+ EIA DST ? 100 ? +--------+ + +-----+ DIGITAL PHOTOGRAPHER DST ? 98 ? +--------+ + +-----+ PFA ? 73 ? +--------+ + +-----+ SFA PRX ? 100 ? +--------+ + +-----+ SFA MID ? 52 ? +--------+ + +-----+ SFA DST ? 44 ? +--------+ + +-----+ COLLIN PRX ? 674 ? 55 ? 12.3 +--------+ + +-----+ COLLIN DST ? 27 ? +--------+ + +-----+ LEAD SALES CONSULTANT DST ? 11 ? +--------+ + [...] Accreditation Commission (IAC/Vascular), www.intersocietal.org/vascular Report generated by WeLink. ??Final ?? Procedure Note Wang Dela Cruz MD - 11/23/2023 VASCULAR ULTRASOUND REPORT RODERICK HEATON : 1940 Study Date: 11/23/2023 7:26:56 AM Age: 83 years Tech: ARISTIDES/JOHNNY Gender: F Referring MD: CHARLOTTE SPRINGER Site: [facility] Study performed: Lower extremity duplex US, [...] +-----+ EIA DST 104 +--------+ + +-----+ DIGITAL PHOTOGRAPHER DST 111 +--------+ + +-----+ PFA 88 +--------+ + +-----+ SFA PRX 111 +--------+ + +-----+ SFA MID 66 +--------+ + +-----+ SFA DST 415 64 6.5 +--------+ + +-----+ COLLIN PRX 101 +--------+ + +-----+ COLLIN DST 41 +--------+ + +-----+ LEAD SALES CONSULTANT DST 80 +--------+ + +-----+ KAREN DST 38 +--------+ + +-----+ LAXMI DST -179 retro +--------+ + +-----+ DPA -34 retro +--------+ + +-----+ +--------+ + +-----+ LEFT Velocity cm/s PRE Ratio Velocity cm/s Phasicity +--------+ + +-----+ EIA DST 100 +--------+ + +-----+ DIGITAL PHOTOGRAPHER DST 98 +--------+ + +-----+ PFA 73 +--------+ + +-----+ SFA PRX 100 +--------+ + +-----+ SFA MID 52 +--------+ + +-----+ SFA DST 44 +--------+ + +-----+ COLLIN PRX 674 55 12.3 +--------+ + +-----+ COLLIN DST 27 +--------+ + +-----+ LEAD SALES CONSULTANT DST 11 +--------+ + +-----+ LAXMI [...] theIntersocietal Accreditation Commission (IAC/Vascular),www.intersocietal.org/vascular Report generated by WeLink. Final Charlotte Springer MD US * TSH (09/29/2023 9:04 AM CDT) TSH 1.48 0.27 - 4.20 uIU/mL 09/29/2023 5:48 PM CDT [facility] Blood BLOOD SPECIMEN / Unknown Venipuncture / Unknown 09/29/2023 9:04 AM CDT 09/29/2023 9:04 AM CDT Narrative [facility] - 09/29/2023 5:48 PM CDT In Adults, TSH values between 5.00 and 10.00 uIU/ml do not necessarily indicate the presence of Hypothyroidism. Correlation with clinical findings such as presence of goiter and/or Thyroperoxidase (TPO) Antibody may be helpful. For more information please refer to SUZETTE 2004; 291: 228-238. Rakel Connor DO CHEMISTRY Performing Organization Address City/[facility]/ZIP Co de Phone Number [facility] [address] [address], * (ABNORMAL) T4,FREE (09/29/2023 9:04 AM CDT) T4,FREE 1.78(H) 0.93 - 1.70 ng/dL 09/29/2023 5:48 PM CDT [facility] Blood BLOOD SPECIMEN / Unknown Venipuncture / Unknown 09/29/2023 9:04 AM CDT 09/29/2023 9:04 AM CDT Rakel Connor DO CHEMISTRY Performing Organization Address City/[facility]/ZIP Co de Phone Number [facility] [address] [address], * (ABNORMAL) XR DXA BONE DENSITY 2 SITES AXIAL (07/02/2019 11:48 AM BASE REMOVER) Anatomical Region Laterality Modality Spine, HIPS, HIPL, HIPR Other Narrative 07/06/2019 11:01 AM BASE REMOVER Please see scanned document for results of this study. Rakel Connor DO DEXA from Last 3 Months or Most Recently Relevant to Health Maintenance Advance Directives Documents on File Type Date Recorded Patient Business Account Manager Expl anation Healthcare Directive 07/19/2016 2:58 PM [...] 8:45 AM 09/01/2016 4:04 PM Care Teams Retreader Relationship Specialty Start Date End Date Maritza Rendon DO [address] [place] [address] PCP - General Family Practice 12/30/22 Kd Restrepo MD Endocrinology 11/24/11 Cody Veliz MD Rheumatology 11/24/11
--- OUTSIDE RECORDS SUMMARY | 2023-12-30 10:52 | XMS_ITS | Continuity of Care Document ---
Author Organization [facility] Address [address] [place] [address] Phone Care Team Providers Care Kindergarten Instructional Assistant Name Role Phone Usha Dickinson Unavailable [...] on Encounter [facility], [address], [place], [place], [id number], [place] tel:[phone] No Information [facility]. [facility], [address], [place], [place], [id number] , [place]. [phone] Office/Outpat ient Visit,Est, Mod [facility], [address], [place], [place], [id number], [place] tel:[phone] [facility] Other forms of scoliosis, thoracolumbar regionL2 wedge compression fracture, initial encounter for closed fractureSpondy lolisthesis, lumbar region 0 [facility]. [facility], [address], [place], [place], [id number] , [place]. tel:[phone] Referring Provider: Rakel Arvizu, [facility] [address] [place], [address]. tel:[phone] Office/Outpat ient Visit,Est, Mod [facility], [address], [facility] [place], [id number], [place] tel:[phone] [facility] L2 wedge compression fracture, initial encounter for closed fractureOther forms of scoliosis, thoracolumbar regionSpondylo listhesis, lumbar region 0 Kwame Kerr. [facility], [address], [place], [place], [id number] , . tel:[phone] Referring Provider: Rakel Arvizu [employer] [address] [place], [address]. tel:[phone] Office/Outpat ient Visit,[facility], [facility], [address], [facility] [place], [id number], [place] tel:[phone] [facility] [place] L2 wedge compression fracture, initial encounter for closed fractureOther forms of scoliosis, thoracolumbar regionSpondylo listhesis, lumbar region 0 Kwame Kerr. [facility], [address], [place], [place], [id number] , [place]. tel:[phone] Referring Provider: Rakel Arvizu [employer] [address] [place], [address]. tel:[phone] Family History Family Member Type Diagnosis Age At Onset No Information Payers Payer name Insurance type Covered alliance party ID Authoralethaa tishannon(s) Medicare MB [id number] [facility] [id number] [facility] [id number] Social History Type Description Quantity Date Captured [...]
--- OUTSIDE RECORDS SUMMARY | 2023-12-30 10:52 | XMS_ITS | Data Portability ---
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 Plan of Treatment Reminders Order Date Submit Date Provider Last Modified By Organization Details Last Modified Time Details Appointments ESTABLISH ED 20 2023 09:00A M ELMA Blanco Not available Not available Not available [facility] ED 45 2023 09:30A M DEMETRI Denis Not available Not available Not available Lab None recorded. Referral None recorded. Procedures None recorded. Surgeries None recorded. Imaging None recorded. Medication Orders None recorded. Patient TargetsNo targets recorded. Patient Instructions Encounter Date Encounter Id Patient Instructions Last Modified By Organization Details Last Modified Time 09/14/2021 [id number] Test each progra m for at least 2 weeks, adjusting amplitude as needed. May remain on a program as long as it is effective. Return as needed for reprogramming. [email or web address] Not available 09/14/2021 10:07:26 Patient states t hat Gemtessa samples were very effective, but it is not covered by her insurance. She was also given a rx for Myrbetriq. [email or web address] Not available 09/14/2021 10:08:49 11/12/2021 [id number] Over Active Blad betty (OAB): -Managed with interstiadam. Content with treatment. -Reprogramming as needed with Demetri. -The OAB Pathway was reviewed, including fluid restriction, bladder irritants, and pelvic floor physical therapy, and OAB medications. Avoid anticholenergics with sjogrens. -Gemtesa too expensive. Discontinued myrbetriq 50 mg due to side effects. -Follow up in 6 months with Demetri, sooner if issues Time on phone: 8 minutes [email or web address] Not available 11/12/2021 11:46:55 04/09/2022 [id number] Test each progra m for at least 2 weeks, adjusting amplitude as needed. May remain on a program as long as it is effective. Return as needed for reprogramming. [email or web address] Not available 04/09/2022 12:34:22 Patient states t hat Gemtesa samples were effective, but the rx was too expensive, so she stopped taking. She would like to try the Gemtesa again, but wonders of it is ok t take every other day, to spread the prescription out, and decrease the expense. I will ask Afsaneh Bui PAC. [email or web address] Not available 04/09/2022 12:37:43 12/06/2022 [id number] Test each progra m for at least 2 weeks, adjusting amplitude as needed. May remain on a program as long as it is effective. Return as needed for reprogramming. [email or web address] Not available 12/06/2022 10:55:41 04/28/2023 [id number] Over Active Blad betty (OAB): -Managed with [...] if needed [email or web address] Not available 04/28/2023 11:58:26 Reason for Referral None Reported. Results Created Date Observation Date Name Description Value Unit Range Abnormal Flag LastModifiedBy Organization Detail LastModifiedTime 09/15/19 22 09/14/2021 UA DIP CS ADVAN TUS color -advantus YELLOW yellow Not Available [facility] [address] [facility] [address], [place], [address], 09/14/2021 10:41:46 09/15/19 22 09/14/2021 UA DIP CS ADVAN TUS appearance -advantus CLEAR clear Not Available [facility] [address] [facility] [address], [place], [address], 09/14/2021 10:41:46 09/15/19 22 09/14/2021 UA DIP CS ADVAN TUS glucose -advantus NEGATI VE mg/dL negati ve Not Available [facility] [address] [facility] [address], [place], [address], 09/14/2021 10:41:46 09/15/19 22 09/14/2021 UA DIP CS ADVAN TUS bilirubin -advantus NEGATI VE negati ve Not Available [facility] [address] [facility] [address], [place], [address], 09/14/2021 10:41:46 09/15/19 22 09/14/2021 UA DIP CS ADVAN TUS ketones -advantus NEGATI VE mg/dL negati ve Not Available [facility] [address] [facility] [address], [place], [address], 09/14/2021 10:41:46 09/15/19 22 09/14/2021 UA DIP CS ADVAN TUS sp. gravity -advantus 1.010 1.010- 1.025 Not Available [facility] [address] [facility] [address], [place], [address], 09/14/2021 10:41:46 09/15/19 22 09/14/2021 UA DIP CS ADVAN TUS pH -advantus 6.0 5.0-8. 0 Not Available [facility] [address] [facility] [address], [place], [address], 09/14/2021 10:41:46 09/15/19 22 09/14/2021 UA DIP CS ADVAN TUS protein -advantus NEGATI VE mg/dL negati ve Not Available [facility] [address] [facility] [address], [place], [address], 09/14/2021 10:41:46 09/15/19 22 09/14/2021 UA DIP CS ADVAN TUS urobilinogen -advantus 0.2 normal Not Available [facility] [address] [place] [address] [address], [place], [address], 09/14/2021 10:41:46 09/15/19 22 09/14/2021 UA DIP CS ADVAN TUS nitrites -advantus NEGATI VE negati ve Not Available [facility] [address] [place] [address] [address], [place], [address], 09/14/2021 10:41:46 09/15/19 22 09/14/2021 UA DIP CS ADVAN TUS blood -advantus SMALL negati ve abnormal Not Available [facility] [address] [place] [address] [address], [place], [address], 09/14/2021 10:41:46 09/15/19 22 09/14/2021 UA DIP CS ADVAN TUS leukocytes -advantus NEGATI VE negati ve Not Available [facility] [address] [place] [address] [address], [place], [address], 09/14/2021 10:41:46 09/15/19 22 09/14/2021 UA DIP CS ADVAN TUS performed by Bibi Ruiz Not Available [facility] [address] [place] [address] [address], [place], [address], 09/14/2021 10:41:46 09/15/19 22 09/14/2021 UA DIP CS ADVAN TUS total urine volume (mL) 20cc /mL Not Available [facility] [address] [place] [address] [address], [place], [address], 09/14/2021 10:41:46 09/15/19 22 09/14/2021 UA MICRO SCOPI C U-WBC 0 - 2 [hpf] 0 - 2 Not Available [facility] [address] [place] [address] [address], [place], [address], 09/14/2021 10:41:47 09/15/19 09/14/2021 UA MICRO SCOPI C U-RBC 0 - 2 [hpf] 0 - 2 Not Available [facility] [address] [facility] [address], [place], [address], 09/14/2021 10:41:47 09/15/19 22 09/14/2021 UA MICRO SCOPI C bacteria Small [hpf] negati ve abnormal Not Available [facility] [address] [facility] [address], [place], [address], 09/14/2021 10:41:47 09/15/19 22 09/14/2021 UA MICRO SCOPI C squamous epi Small /lpf negati ve,sma ll Not Available [facility] [address] [facility] [address], [place], [address], 09/14/2021 10:41:47 Result Notes None recorded. Problems Name Status Onset Date Resolution Date Notes Provider Name and Address Organization Details Recorded Time Chronic cystitis Active 2018 N30.20 : Chronic cystitis Not Available [facility] 0 23:40:26 Overactive urinary bladder Active 2018 N32.81 : Bladder muscle dysfunction - overactive Not Available [facility] 0 23:40:26 Benign neoplastic disease Active 2019 Daphne felix [facility] 0 09:58:09 Tear film insufficiency Active 2019 Daphne felix [facility] 0 09:58:21 Gastroesophageal reflux disease Active 2019 Daphne felix, [facility] 0 09:58:28 Hyperlipidemia Active 2019 Daphne felix, [facility] 0 09:58:36 Heart disease Active 2022 Radhika felix, [facility] 3 11:27:33 Problem Notes None recorded. Procedures Surgical History Date Name Laterality Status Provider Name and Address Organization Details Recorded Time 04/28/20 23 Sacral neuromodulation w/o reprogramming completed ELMA Blanco [address] [facility],[address], [place], [address], [facility] 04/28/2023 11:57:28 04/28/20 23 Bladder Scan completed Radhika Mathis null, [facility] 04/28/2023 11:36:21 12/07/19 23 Sacral neuromodulation w/o reprogramming completed Demetri Bosch null, [facility] 12/06/2022 11:08:45 04/09/20 22 Sacral Stimulator Reprogramming completed Demetri Bosch null, [facility] 04/09/2022 12:49:34 09/15/19 22 Bladder Scan completed Merry Ocampo null, [facility] 09/14/2021 10:25:15 09/15/19 22 Sacral neuromodulation w/o reprogramming completed Demetri Bosch null, [facility] 09/14/2021 10:15:12 08/03/19 22 Past Data Reviewed completed Charlotte Smith MD [address] [facility],[address], [place], [address], [facility] 08/03/2021 08:29:52 08/03/19 22 Bladder Scan completed Usha Corado null, [facility] 08/03/2021 11:50:03 11/27/19 21 Sacral Stimulator Reprogramming completed Demetri Bosch null, [facility] 11/27/2020 12:44:01 09/17/19 20 Implant neuroelectrodes completed Not Available [facility] 12/13/2019 18:11:39 11/29/19 19 Insert bladder catheter completed Not Available [facility] 12/13/2019 18:11:39 11/14/19 15 Colonoscopy completed Lucinda Nuñez null, [facility] 11/11/2020 11:57:08 11/29/19 09 Total hip arthroplasty completed Not Available [facility] 12/13/2019 18:11:39 11/29/19 00 Unlisted procedure breast completed Not Available [facility] 12/13/2019 18:11:39 Appendectomy add-on completed Not Available [facility] 12/13/2019 18:11:39 Imaging Results None recorded. Procedure Notes None recorded. Medical Equipment None Reported. Allergies Allergen ID Allergen Name Allergen Category Reaction Reaction Severity Criticality Documentation Date Start Date Code Code System Note Provider Name and Address Organization Details Recorded Time 379094 Nitroimid azole (substanc e) medicatio n Not available Not available Not available 12/12/2019 78145 5001 SNOMED Not Available [facility] 0 23:50:45 013111 sulindac medicatio n Not available Not available Not available 12/12/2019 97454 RxNorm Not Available [facility] 0 23:50:45 349042 Medicinal product containin g penicilli n and acting as antibacte rial agent (product) medicatio n itching Not available Not available 12/12/2019 89107 05 SNOMED Not Available [facility] 0 23:50:45 517161 atorvasta tin medicatio n Not available Not available Not available 12/12/2019 28905 RxNorm Not Available [facility] 0 23:50:45 797211 tetracycl ine medicatio n Not available Not available Not available 12/12/2019 77650 RxNorm Not Available [facility] 0 23:50:45 145994 alendrona te sodium medicatio n Not available Not available Not available 12/12/2019 36000 2 RxNorm Not Available [facility] 0 23:50:45 803180 amoxicill in medicatio n Not available Not available Not available 12/12/2019 723 RxNorm Not Available [facility] 0 23:50:45 550159 oxybutyni n chloride Not available dizziness Not available Not available 12/12/2019 84604 RxNorm fatig ue Not Available [facility] 0 23:50:45 865151 aspirin medicatio n Not available Not available Not available 12/12/2019 1191 RxNorm Not Available [facility] 0 23:50:46 808772 losartan Not available Not available Not available Not available 12/12/2019 56338 RxNorm Not Available [facility] 0 23:50:46 244137 estrogens , conjugate d (NURSING HOME) medicatio n Not available Not available Not available 12/12/2019 4099 RxNorm Not Available [facility] 0 23:50:46 296332 ciproflox acin medicatio n Not available Not available Not available 12/12/2019 2551 RxNorm Not Available [facility] 0 23:50:46 703822 hydrochlo rothiazid e medicatio n Not available Not available Not available 12/12/2019 5487 RxNorm Not Available [facility] 0 23:50:46 709573 metoprolo l Not available Not available Not available Not available 12/12/2019 6918 RxNorm Not Available [facility] 0 23:50:46 428181 naproxen medicatio n Not available Not available Not available 12/12/2019 7258 RxNorm Not Available [facility] 0 23:50:46 181307 clindamyc in Not available Not available Not available Not available 12/12/2019 2582 RxNorm Not Available [facility] 0 23:50:46 214507 Substance with sulfonami de structure and antibacte rial mechanism of action (substanc e) medicatio n Not available Not available Not available 11/11/2020 11767 8003 SNOMED Lucinda Vossen [facility] 1 11:56:30 476748 Myrbetriq medicatio n swelling Not available Not available 10/05/2021 68295 92 RxNorm RODERICK ALIX [facility] 2 13:18:14 367141 Sambucus Elderber[employer] y Immune medicatio n Not available Not available Not available 04/09/2022 Demetri Bosch [facility] 2 12:14:11 Medications Name Sig [...] Updated DateTime 04/09/2022 154.94 cm 27.8 kg/m2 59109.08 g Demetri Bosch [facility] 04/09/2022 12:13:52 Date Recorded Body height Body mass index (BMI) Body weight Provider Name and Address Organization Details Last Updated DateTime 12/06/2022 154.94 cm 25.5 kg/m2 72061.97 g Demetri Bosch [facility] 12/06/2022 10:41:56 Date Recorded Body height Body mass index (BMI) Body weight Provider Name and Address Organization Details Last Updated DateTime 04/28/2023 154.94 cm 25.5 kg/m2 51804.97 g Radhika Mathis [facility] 04/28/2023 11:25:35 Date Recorded Body height Body mass index (BMI) Body weight Provider Name and Address Organization Details Last Updated DateTime 09/14/2021 158.75 cm 26.5 kg/m2 45319.08 g Demetri Bosch [facility] 09/14/2021 09:54:39 Date Recorded Body height Body mass index (BMI) Body weight Provider Name and Address Organization Details Last Updated DateTime 09/14/2021 158.75 cm 26.5 kg/m2 68974.08 zeus Ocampo [facility] 09/14/2021 10:08:57 Date Recorded Body height Body mass index (BMI) Body weight Provider Name and Address Organization Details Last Updated DateTime 11/12/2021 154.94 cm 27.8 kg/m2 12832.08 zeus Ocampo [facility] 11/12/2021 11:32:20 Social History Question Answer Notes LastModified by Organizat ion Details LastModified Time Tobacco Smoking Status Never Smoker Not Available [facility] 12/13/2019 02:00:45 What Is Your Level Of Alcohol Consumption? None Information not available 09/14/2021 What Is Your Level Of Caffeine Consumption? Heavy Information not available 09/14/2021 Are You Currently Employed? No Information not available 09/14/2021 Race White Information n ot available 12/13/2019 Ethnicity Not /Lat vane Information not available 09/14/[address] [place] Information not available 09/14/2021 Recreational Drug Use No Information not available 09/14/2021 Could You Be ? No Information not available 09/14/2021 Marital Status Informati on not available 12/13/2019 What Was The Date Of Your Most Recent Tobacco Screening? 12/06/2022 [email or web address] Information not available 12/06/2022 What Is Your [...] Nicotine? No Information not available 09/14/2021 Sex: Unknown Functional Status None recorded. Mental Status None [...] conjugate PCV 13 07/04/2017 completed STEPHEN Germain - [facility] 04/28/2023 11:25:40 Past Encounters Encounter ID Performer Location Encounter Start Date Encounter Closed Date Diagnosis/Indication Diagnosis SNOMED-CT Code [id number] Charlotte Smith MD [address] [address] 04/15/2020 10:02:52 04/25/2020 12:54:57 Overactive urinary bladder [id number] Urge incon tinence of urine 46035597 [id number] [facility] [address] [address] 05/13/2020 10:14:48 05/13/2020 14:22:18 Overactive urinary bladder 881957493 Urge incon tinence of urine 79370679 History of urinary tract infection [id number] [facility] [address] [address] 11/11/2020 11:46:55 11/11/2020 13:40:18 Overactive urinary bladder 892212449 Urge incon tinence of urine 82413098 [id number] [facility] [address] [facility] [address] [place] [address] 11/26/2020 10:15:12 12/02/2020 15:37:48 Overactive urinary bladder 041680441 Nocturia [id number] Charlotte Smith MD [facility] [address] [place] [address] 08/03/2021 11:31:50 08/03/2021 12:09:22 Overactive urinary bladder 430774768 Urge incon tinence of urine 63361992 Nocturia 712980758 [id number] ELMA Blanco [facility] [address] [place] [address] [place] [address] 09/14/2021 10:06:36 09/14/2021 14:16:12 Overactive urinary bladder 747422953 Urge incon tinence of urine 83261667 Nocturia 429275581 [id number] Demetri Bosch [facility] [address] [place] [address] [place] [address] 09/14/2021 09:30:06 09/14/2021 14:31:59 Overactive urinary bladder 421934501 [id number] ELMA Blanco [facility] [address] [place] [address] [place] [address] 11/12/2021 11:29:59 11/12/2021 12:37:25 Overactive urinary bladder 263876547 Urge incon tinence of urine 62935278 Nocturia 953900467 [id number] Demetri Bosch [facility] [address] [place] [address] [place] [address] 04/09/2022 11:43:46 04/09/2022 13:38:20 Overactive urinary bladder 095058460 [id number] Demetri Bosch [facility] [address] [place] [address] [place] [address] 12/06/2022 10:28:13 12/06/2022 11:24:29 Overactive urinary bladder 313787764 [id number] ELMA Blanco [facility] [address] [place] [address] [place] [address] 04/28/2023 11:22:38 04/28/2023 12:04:03 Overactive urinary bladder 965265443 Urge incon tinence of urine 88033347 Nocturia [id number] Health Concerns Section Related Observation LastModified by Organization Detai ls LastModified Time None Recorded Concern Status LastModified by Organization Details LastModified Time None Recorded Advance Directives Directive None Recorded Payers Encounter Date Sequence Insurance Name Policy Number Policy Betancourt Covered Member ID Betancourt Member ID Guarantor Name 09/14/2021 1 [facility] Patsy A Wood [id number] Patsy [employer] Wood 09/14/2021 2 [place] [id number] Patsy A Wood [id number] Patsy A Wood 11/12/2021 1 [place] [facility] Patsy A Wood [id number] Patsy A Wood 11/12/2021 2 [place] [id number] Patsy A Wood [id number] Patsy A Wood 04/09/2022 1 [place] [facility] Patsy A Wood [id number] Patsy A Wood 04/09/2022 2 [place] [id number] Patsy A Wood [id number] Patsy A Wood 12/06/2022 1 [place] [facility] Patsy A Wood [id number] Patsy [employer] Wood 12/06/2022 2 [place] [id number] Patsy A Wood [id number] Patsy [employer] Wood 04/28/2023 1 [place] [facility] Patsy A Wood [id number] Patsy [employer] Wood 04/28/2023 2 [place] [id number] Patsy A Wood [id number] Patsy [employer] Wood Notes Date Note Type Note Provider Name and Address Organization Details Recorded Time 09/14/2021 text/html HPI Notes: : Patient presents [...] per day. had a few infections in and none since. using estrogren/clobetasol . on [...] to be almost every hour. ELMA Blanco [address] [place] [address],[address], [place], [address], [facility] 09/14/2021 10:49:41 11/12/2021 text/html [...] with sjorgrens. This visit was conducted using [employer] technology. Prior to conducting our health visit, the patient and I discussed the risks, benefits and alternatives to phone visits. The patient elected to proceed with the phone visit. ELMA Blanco [address] [place] [address],[facility] [address], [address], [facility] 11/12/2021 11:50:24 12/06/2022 text/html [...] changed Rate chaanged Resolution changed Demetri felix [facility] 12/06/2022 11:08:58 04/28/2023 text/html HPI [...] to be almost every hour. ELMA Blanco [address] [place] [address],[address], [place], [address], [place] [facility] 04/28/2023 11:58:40 OBGyn Episode No OBEpisode recorded.
== END 2023-12-30 10:51 | disposition home or self-care (01) ==
LOC: WOUND 10:50
PROVIDERS: PCP Physician Assistant Medical; Visit Provider Nurse Practitioner Family
DX: I87.2 Venous insufficiency (chronic) (peripheral) (principal); I73.9 Peripheral vascular disease, unspecified; L97.322 Non-pressure chronic ulcer of left ankle with fat layer exposed; R73.03 Prediabetes; Z79.52 Long term (current) use of systemic steroids
CPT/HCPCS: G0463

== ENCOUNTER 2024-01-02 12:45 | Emergency (ER) | payer OTHER, SELFPAY ==
[2024-01-02 12:51] VITALS: BP 159/75; PULSE 65; RESP 18; TEMP 37.1; O2SAT 99; BMI 27.5
--- NOTE | 2024-01-02 13:18 | ED_ITS ---
HPI - General Adult General Stated complaint: Open wound on leg Time Seen by Provider: 01/02/24 12:51 History of Present Illness HPI narrative: This 83-year-old female has a chronic wound on the inner aspect of her left lower leg. She is seeing the wound clinic for ongoing management of this condition. She comes in here because she had cleansed her wound this morning and it started a bleed that seemed to continue. The patient did provide some direct pressure and by the time EMS came to bring her should the bleeding apparently had stopped. She is not reporting any other symptoms and arrives with normal vital signs. Related Data Home Medications ?Medication ?Instructions ?Recorded ?Confirmed Lactobacillus acidophilus 1 10 mg PO DAILY 04/15/22 11/03/23 billion cell capsule betamethasone, augmented 0.05 % 1 applic topical DAILY PRN 04/15/22 01/02/24 topical cream multivitamin 1 tab PO DAILY 04/15/22 11/03/23 clobetasol 0.05 % topical ointment 1 g topical 2XW PRN lichen 09/10/22 01/02/24 sclerosis furosemide 20 mg tablet 20 mg PO DAILY PRN edema 09/10/22 01/02/24 gabapentin 6%/ketamine topical .four time daily PRN 01/24/23 11/03/23 8%/liodcaine 2.5% liposomal cream with baclofen 2% vibegron 75 mg tablet (Gemtesa) 75 mg PO DAILY 03/24/23 01/02/24 diltiazem HCl 240 mg 240 mg PO DAILY 06/02/23 01/02/24 capsule,extended release 24 hr levothyroxine 112 mcg tablet 112 mcg PO .COMPLEX 11/03/23 01/02/24 Previous Rx's ?Medication ?Instructions ?Recorded calcium carbonate 600 mg PO DAILY #90 tabs 01/06/22 lorazepam 0.5 mg tablet 0.25 - 0.5 mg (0.5 - 1 x 0.5 mg) 01/06/22 PO DAILY PRN anxiety #5 tabs pilocarpine HCl 5 mg tablet 5 mg PO TID #270 tabs 09/02/22 acetaminophen 500 mg capsule 500 - 1,000 mg (1 - 2 x 500 mg) PO 09/09/22 Q6H PRN pain #100 caps prednisone 10 mg tablet 10 mg PO Q OTHER DAY #45 tabs 03/16/23 triamcinolone acetonide 0.1 % 1 applic topical BID PRN rash #80 05/05/23 topical cream grams fosfomycin tromethamine 3 gram 1 packet PO Q3D PRN bladder 05/09/23 oral packet infections 2 doses #2 ea warfarin 2.5 mg tablet 2.5 mg PO QDAY #90 tabs 08/15/23 omeprazole 40 mg capsule,delayed 40 mg PO QDAY #90 caps 10/11/23 release sennosides 8.6 mg tablet (Senna 8.6 mg PO BID PRN constipation 11/03/23 Lax) #180 tabs denosumab 60 mg/mL subcutaneous 60 mg subcut [id number] #1 mL 12/12/23 syringe (Prolia) Allergies Allergy/AdvReac Type Severity Reaction Status Date / Time sulindac Allergy Severe Difficulty Verified 11/03/23 10:53 Breathing tetracycline Allergy Intermediate Rash Verified 11/03/23 10:53 mirabegron Allergy Mild lost Verified 11/03/23 10:53 control of bladder amoxicillin Allergy Unknown Verified 11/03/23 10:53 aspirin Allergy Unknown Verified 11/03/23 10:53 atorvastatin Allergy Unknown Verified 11/03/23 10:53 cholecalciferol (vitamin D3) Allergy Unknown Verified 11/03/23 10:53 [From Vitamin D3] ciprofloxacin Allergy Unknown Verified 11/03/23 10:53 clindamycin Allergy Unknown Verified 11/03/23 10:53 hydrochlorothiazide Allergy Unknown Verified 11/03/23 10:53 losartan Allergy Unknown Verified 11/03/23 10:53 metoprolol Allergy Unknown Verified 11/03/23 10:53 naproxen Allergy Unknown Verified 11/03/23 10:53 Nitroimidazoles Allergy Unknown Verified 11/03/23 10:53 alendronate sodium Allergy Verified 11/03/23 10:53 estrogens, conjugated Allergy Verified 11/03/23 10:53 oxybutynin Allergy Verified 11/03/23 10:53 Penicillins Allergy Verified 11/03/23 10:53 Sulfa (Sulfonamide Allergy Rash Verified 11/03/23 10:53 Antibiotics) Quinolones AdvReac Intermediate bad Verified 11/03/23 10:53 arthritis flair tolterodine AdvReac Intermediate Headache Verified 11/03/23 10:53 cephalexin AdvReac Unknown Hives Verified 11/03/23 10:53 furosemide AdvReac Unknown Verified 11/03/23 10:53 Review of Systems Status of ROS: Reports: 10 or more systems reviewed and unremarkable except as noted in History and below Narrative: Constitutional: No fevers, no weight gain or loss. Eyes: No discharge. No vision changes. HENT: No congestion, no sore throat, no ear pain. Cardiovascular: No chest pain, no palpitations. Respiratory: No shortness of breath, no wheezes, no cough. Gastrointestinal: No abdominal pain, no vomiting, no diarrhea. Genitourinary: No dysuria, no hematuria. Musculoskeletal: Normal range of motion. Skin: No rashes, no pruritis. Chronic wound on the left lower extremity as described above. Neurological: No dizziness, weakness, sensory change, speech change. Endo/Heme/Allergies: No bruising or bleeding. No polydipsia. Pysch: no suicidality, no anxiety, no insomnia. All other systems reviewed and are negative. 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 (ICD-10) Hypoxia ?R09.02 - Hypoxemia (ICD-10) Cellulitis ?L03.90 - Cellulitis, unspecified (ICD-10) Mitral valve insufficiency ?I34.0 - Nonrheumatic mitral (valve) insufficiency (ICD-10) Midline cystocele (09/01/16) ?N81.11 - Cystocele, midline (ICD-10) halfway current use of systemic steroids ?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.52 - 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 of systemic steroids (ICD-10) Diverticular disease ?K57.90 - Diverticulosis of intestine, part unspecified, without perforation or abscess without bleeding (ICD-10) Surgical History (Updated 11/03/23 @ 08:28 by Jose Napier PA-C) 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) ?Z96.612 - Presence of left artificial shoulder joint (ICD-10) History of bladder surgery (~2020) ?Z98.890 - Other specified postprocedural states (ICD-10) 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) ?Z96.641 - Presence of right artificial hip joint (ICD-10) History of partial surgical removal of colon (08/23/02) ?Z90.49 - Acquired absence of other specified parts of digestive tract (ICD- 10) History of lumpectomy of right breast (1999) ?Z98.890 - Other specified postprocedural states (ICD-10) History of colonoscopy with polypectomy (03/2019) ?Z98.890 - Other specified postprocedural states (ICD-10) ?Z86.010 - Personal history of colonic polyps (ICD-10) History of carpal tunnel release of both wrists (~1989) ?Z98.890 - Other specified postprocedural states (ICD-10) History of bladder surgery (09/17/19) ?Z98.890 - Other specified postprocedural states (ICD-10) History of appendectomy ?Z90.49 - Acquired absence of other specified parts of digestive tract (ICD- 10) Family History Mother Cancer Heart failure Father Colon cancer Social History Narrative: She lives in [place] with her . Her has some dementia. He is currently home alone. Her son, Bahman, lives nearby. He is primary support and healthcare power of workers compensation consultant. Code status is full. does not use illicit drugs no history of alcohol use nonsmoker What is your current living situation?: I presently have a place to live In the past 12 months, utilities in danger of being shut off: no In past 12 months, lack of transportation kept you from medical appts, meetings, work, or getting things needed for daily living: no In the past 12 mos, have been you worried that your food would run out before you had money to buy more?: never true Smoking Status: Never smoker Do you use any of these nicotine containing products: None How often do you have a drink containing alcohol: monthly or less Alcohol type: wine How many standard drinks containing alcohol do you have on a typical day: 1 or 2 How often do you have six or more drinks on one occasion: Never AUDIT-C Alcohol total score: 1 Non-prescribed substance use: denies use Caffeine: Yes (1 cup/day) How often does anyone, including family, friends and others, insult or talk down to you: fairly often Little interest or pleasure in doing things: not at all Feeling down, depressed, or hopeless: several days Exam Narrative: Exam Narrative: Constitutional: Well-developed, well-nourished, no acute distress. HEENT: Normocephalic, atraumatic. Neck: Normal range of motion. Nontender. Supple. Heart: Regular. No murmurs. Normal rate. Intact distal pulses. Lungs: Clear to auscultation. No chest discomfort. No wheezes, rhonchi, or rales. Abdomen: Normal bowel sounds. Nontender. No rebound tenderness. Genitalia: Deferred. Back: No midline tenderness. Normal range of motion. Extremities: Normal range of motion. Chronic wound in the left lower extremity. No active bleeding. A pressure dressing of gauze was removed to evaluate. Skin: Intact. No rash. Warm. No erythema or pallor. Neurologic: No altered sensation. No weakness. Alert and oriented. Psychiatric: No suicidality. No anxiety or depression. No insomnia. Nursing notes and vitals signs are reviewed. Const: Vital Signs, click to edit/add: Vital Signs - 24 hr 01/02/24 12:51 Temperature 98.8 F Pulse Rate [Right Pulse Oximeter] 65 Respiratory Rate 18 Blood Pressure [Ri ght Upper Arm] 159/75 H Pulse Oximetry 99 Oxygen Delivery Me thod Room Air Course Vital Signs Vital signs: Initial Vital Signs Temperature 98.8 F 01/02/24 12:51 Temperature Source Temporal Artery Scan 01/02/24 12:51 Pulse Rate 65 01/02/24 12:51 Pulse Rhythm Regular 01/02/24 12:51 Respiratory Rate 18 01/02/24 12:51 Blood Pressure 159/75 H 01/02/24 12:51 Blood Pressure Mean 103 01/02/24 12:51 Blood Pressure Position Sitting 01/02/24 12:51 Pulse Oximetry 99 01/02/24 12:51 Oxygen Delivery Method Room Air 01/02/24 12:51 Vital Signs Temperature 98.8 F 01/02/24 12:51 Pulse Rate 65 01/02/24 12:51 Respiratory Rate 18 01/02/24 12:51 Blood Pressure 159/75 H 01/02/24 12:51 Pulse Oximetry 99 01/02/24 12:51 Oxygen Delivery Method Room Air 01/02/24 12:51 Temperature 98.8 F 01/02/24 12:51 Pulse Rate 65 01/02/24 12:51 Respiratory Rate 18 01/02/24 12:51 Blood Pressure 159/75 H 01/02/24 12:51 Pulse Oximetry 99 01/02/24 12:51 Oxygen Delivery Method Room Air 01/02/24 12:51 Medical Decision Making MDM Narrative Medical decision making narrative: This patient came in because of persistent bleeding from a low chronic wound on her left lower leg. She applied direct pressure prior to arrival and at the time of my assessment there is no active bleeding. There is no sign of infection or other complication. The wound was redressed and she will be able to follow-up with the wound clinic as scheduled and needed. Discharge Plan Discharge Clinical Impression: Bleeding from wound Patient Disposition: Home, Self-Care Condition: Improved Additional Instructions: Continue current plans. Follow up with wound clinic as scheduled and needed. Return if worsening. Prescriptions: No Action calcium carbonate 600 mg calcium (1,500 mg) tablet 600 mg PO DAILY Qty: 90 4RF lorazepam 0.5 mg tablet 0.25 - 0.5 mg PO DAILY PRN (Reason: anxiety) Qty: 5 0RF Rx Instructions: 5 tablets must last one year levothyroxine 112 mcg tablet 112 mcg PO .COMPLEX Rx Instructions: 112 mcg orally x 6 days/week; multivitamin Tablet 1 tab PO DAILY Lactobacillus acidophilus 1 billion cell capsule 10 mg PO DAILY betamethasone, augmented 0.05 % cream 1 applic topical DAILY PRN gabapentin 6%/ketamine 8%/liodcaine 2.5% liposomal cream with baclofen 2% cream topical .four time daily PRN Rx Instructions: hand faxed rx to [facility] [phone] 60 grams with 1 refill sent to scanning diltiazem HCl 240 mg capsule,extended release 24hr 240 mg PO DAILY omeprazole 40 mg capsule,delayed release(DR/EC) 40 mg PO QDAY Qty: 90 0RF Gemtesa 75 mg tablet 75 mg PO DAILY acetaminophen 500 mg capsule 500 - 1,000 mg PO Q6H MDD 4000mg per day PRN (Reason: pain) Qty: 100 0RF clobetasol 0.05 % ointment 1 g topical 2XW PRN (Reason: lichen sclerosis) furosemide 20 mg tablet 20 mg PO DAILY PRN (Reason: edema) pilocarpine HCl 5 mg tablet 5 mg PO TID Qty: 270 4RF prednisone 10 mg tablet 10 mg PO Q OTHER DAY Qty: 45 3RF triamcinolone acetonide 0.1 % cream 1 applic topical BID PRN (Reason: rash) Qty: 80 1RF fosfomycin tromethamine 3 gram packet 1 packet PO Q3D PRN (Reason: bladder infections) Qty: 2 6RF warfarin 2.5 mg tablet 2.5 mg PO QDAY Qty: 90 0RF Protocol: Dose Management Condition: Tuesday Dose/Route: 2.5 mg Instruction: 1 x 2.5 mg tablet Condition: Tuesday Dose/Route: 2.5 mg Instruction: 1 x 2.5 mg tablet Condition: Tuesday Dose/Route: 2.5 mg Instruction: 1 x 2.5 mg tablet Condition: Tuesday Dose/Route: 2.5 mg Instruction: 1 x 2.5 mg tablet Condition: Dose/Route: 2.5 mg Instruction: 1 x 2.5 mg tablet Condition: Tuesday Dose/Route: 2.5 mg Instruction: 1 x 2.5 mg tablet Condition: Tuesday Dose/Route: 2.5 mg Instruction: 1 x 2.5 mg tablet Protocol Text: Adjustment Start Date: Tuesday12/26/23 INR Value: 2.1 INR Date: 12/26/23 Recheck Date: 01/02/24 sennosides [Senna Lax] 8.6 mg tablet 8.6 mg PO BID PRN (Reason: constipation) Qty: 180 1RF Prolia 60 mg/mL syringe 60 mg subcut [id number] Qty: 1 0RF Follow Up/Referrals: Jose Napier PA-C [Primary Care Provider] - Stand Alone Forms: MyHealth Info Instructions
--- OUTSIDE RECORDS SUMMARY | 2024-01-02 13:26 | XMS_ITS | Continuity of Care Document ---
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 [place], [id number], [place] tel:[phone] No Information [facility]. [facility], [address], [place], [place], [id number] , [place]. [phone] Office/Outpat ient Visit,Est, Mod [facility], [address], [place], [place], [id number], [place] tel:[phone] [facility] Other forms of scoliosis, thoracolumbar regionL2 wedge compression fracture, initial encounter for closed fractureSpondy lolisthesis, lumbar region 0 Puente Usha. [facility], [address], [place], [place], [id number] , [place]. tel:[phone] Referring Provider: Rakel Arvizu, [employer] [facility] [address] [place], [address]. tel:[phone] Office/Outpat ient Visit,Est, Mod [facility], [address], [facility] [place], [id number], [place] tel:[phone] [facility] L2 wedge compression fracture, initial encounter for closed fractureOther forms of scoliosis, thoracolumbar regionSpondylo listhesis, lumbar region 0 Kwame Kerr. [facility], [address], [place], [place], [id number] , . tel:[phone] Referring Provider: Rakel Arvizu [facility] [address] [place], [address]. tel:[phone] Office/Outpat ient Visit,[facility], [facility], [address], [facility] [place], [id number], [place] tel:[phone] [facility] L2 wedge compression fracture, initial encounter for closed fractureOther forms of scoliosis, thoracolumbar regionSpondylo listhesis, lumbar region 0 Kwame Kerr. [facility], [address], [place], [place], [id number] , [place]. tel:[phone] Referring Provider: Rakel Arvizu [facility] [address] [place], [address]. tel:[phone] Family History Family Member Type Diagnosis Age At Onset No Information Payers Payer name Insurance type Covered alliance party ID Authoralethaa tishannon(s) Medicare MB [id number] [facility] [address] [facility] [id number] Social History Type Description Quantity Date Captured [...]
--- OUTSIDE RECORDS SUMMARY | 2024-01-02 13:26 | XMS_ITS | Clinical Summary ---
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 [...] Date Anticoagulation monitoring, INR range 2-3 [Z79.01]; Norco Target 2.5-3.0 12/06/2016 1 Pessary maintenance 02/25/2016 09/28/19 20 Anticoagulation monitoring, goal range 2.0-2.6 09/19/2013 01/09/2018 Abnormal stress test 11/17/2010 011 Routine general medical exam ination at a health care facility 07/12/2009 09/28/2019 Overview: Normal CT angiogram 11/2010 Hip pain 05/06/2008 07/09/2009 Onychomycosis 05/06/2008 08/27/2008 HX OF VENOUS THROMBOSIS AND EMBOLISM 11/09/2006 12/06/2012 Bilateral pulmonary embolism 10/11/2006 11/18/2017 AFTERCARE, LONG-TERM USE, [place] DICATIONS NEC-PLAQUENIL 10/22/2003 Encounters Date Type Department Care Team Description 12/30/2023 Transcribe Orders [facility] [address] [place] [address] Charlotte Springer MD 12/12/2023 Lab Requisition [facility] [phone] Unknown, Doctor 12/09/2023 Telephone [facility] [address] [place] [address] Charlotte Springer MD Care Coordination 12/05/2023 11:00 AM CDT Office Visit [facility] [address] [place] [address] Charlotte Springer MD Follow Up (LLE wound follow up ) 12/05/2023 8:56 AM CDT - 12/05/2023 11:59 PM CDT Hospital Encounter [facility] [address] [place] [address] Charlotte Springer MD Venous insufficiency; Venous stasis ulcer of ankle, left (HC) 12/05/2023 Travel 11/23/2023 9:30 AM CDT Office Visit [facility] [address] [place] [address] Charlotte Springer MD Ankle Pain/problem (L medial malleolar ulcer) 11/23/2023 6:47 AM CDT - 11/23/2023 11:59 PM CDT Hospital Encounter [facility] [address] [place] [address] Charlotte Springer MD PAD (peripheral artery disease) (HC) 11/22/2023 Travel from Last 3 Months Immunizations Name Administration Dates Next Due AMB INFLUENZA IIV3 (AGE 65+ YRS) PF (Flu Clinic Only) 03/23/2017 AMB Influenza, IIV3 (Age >=3 years) Preserve Free (Flu Clinic Only) 04/08/2009 AMB Influenza, IIV3 (Age >=3 years)(Flu Clinic Only) 04/06/2013,04/16/2011,04/24/2008 COVID-19 vaccine (Napartner 30mcg/0.3mL) PF, MDV 09/02/2020,08/12/2020 Influenza A (H1N1), [...] Care Team (Late st Contact Info) Description 02/06/2024 10:30 AM CDT Office Visit [facility] [address] [place] [phone] Charlotte Springer MD [address] [place], [place] [id number] 02/28/2024 10:00 AM CDT Office Visit [facility] [address] [place], [place] [id number] [place] [address] [place] [address] Health Maintenance Due Date Last Done Comments [...] 01/13/2016, 12/18/2010 Medical Devices Implanted Type Area Bleacher [employer] Device Identifier Shelf Expiration Date Model / Serial / Lot Lead Kit 4.32mm Spacing 28cm Length Interstim - [id number] Implanted:Qty: 1 on 04/01/2020 by Charlotte Smith MD at [facility] N/A: Sacrum [employer] Pain Therapy 09/30/2021 [id number] / / [id number] Stimulator 7.7mm 14cc Interstim Ii - [id number] Implanted:Qty: 1 on 04/01/2020 by Charlotte Smith MD at [facility] N/A: Sacrum [employer] Pain Therapy 03/31/2021 [id number] / [id number] / Description:PIN [id number] Procedures Procedure Name Priority Date/Time Associated Diagnosis Comments REFERRAL ID/MOHAN,NONURINE Routine 12/08/2023 11:47 AM CDT US VENOUS INSUFFICIENCY LOWER EXTREMITY BILATERAL NBA 12/05/2023 10:28 AM CDT Venous insufficiency Venous stasis ulcer of ankle, left (HC) US ANKLE BRACHIAL INDEX BILATERAL Routine 11/23/2023 8:37 AM CDT PAD (peripheral artery disease) (HC) US ARTERIAL LOWER EXTREMITY BILATERAL Routine 11/23/2023 8:37 AM CDT PAD (peripheral artery disease) (HC) XR DXA BONE DENSITY 2 SITES AXIAL Routine 07/02/2019 11:48 AM GAS CONTROLLER Osteopenia of multiple sites from Last 3 Months or Most Recently Relevant to Health Maintenance Results * (ABNORMAL) REFERRAL ID/MOHAN,NONURINE (12/08/2023 11:47 AM CDT) CULTURE RESULT(A) 12/17/2023 2:44 PM CDT [facility] CULTURE 1+ Acinetobacter species 12/17/2023 2:44 PM CDT [facility] Other (Left Leg) Client Collect / Unknown 12/08/2023 11:47 AM CDT 12/12/2023 10:11 PM CDT Narrative Organism Antibiotic Method Susceptibility Acinetobacter species TRIMETHOPRIM/SULF S Acinetobacter species GENTAMICIN S Acinetobacter species CEFTAZIDIME R Acinetobacter species LEVOFLOXACIN S Acinetobacter species CIPROFLOXACIN I Acinetobacter species PIPERACILLIN/TAZO I Acinetobacter species AMPICILLIN/SULBACTAM S Acinetobacter species TOBRAMYCIN S Acinetobacter species MEROPENEM S Doctor Unknown MICROBIOLOGY Performing Organization Address City/State/[facility] Co de Phone Number [facility] [address] [place] [id number], * US VENOUS INSUFFICIENCY LOWER EXTREMITY BILATERAL [...] of the 21st Century Cures Act, medical imaging exams and procedure reports are released immediately into your electronic medical record. You may view this report before your referring provider. If you have questions, please contact your health care provider. EXAM: US VENOUS INSUFFICIENCY LOWER EXTREMITY BILATERAL LOCATION: [facility] DATE: 12/05/2023 INDICATION: Lower extremity [...] when greater than 600 ms flow reversal. Acid Loader vein reflux reported as greater than 350 [...] US VENOUS INSUFFICIENCY LOWER EXTREMITY BILATERAL LOCATION: [facility] DATE: 12/05/2023 INDICATION: [...] reported when greater than 600ms flow reversal. Acid Loader vein reflux reported as greater than 350 [...] VASCULAR ULTRASOUND REPORT RODERICK HEATON Accession#: ?? [id number] : ?1940 ??Study Date: ?? 11/23/2023 7:17:22 AM Age: ?83 years ?? Tech: ? KBN/CRK Gender: F ?Referring MD: CHARLOTTE SPRINGER Site: [facility] Study performed: ?Lower extremity resting MINOR, [...] ? Index +-----+ +--------+ +-----+ 1.24 ?241 ?ELECTRICAL FITTER ?107 ? 0.55 +-----+ +--------+ +-----+ 1.23 ?238 ?DPA ?147 ? 0.76 +-----+ +--------+ +-----+ 0.63 ?122 ? Digit 1 ?45 ? 0.23 +-----+ +--------+ +-----+ Wang Dela Cruz MD. Electronically signed on 11/23/2023 12:17:56 PM This study was performed and interpreted by a service accredited by the Intersocietal Accreditation Commission (IAC/Vascular), [email or web address] Report generated by [employer]. ??Final ?? Procedure Note Wang Dela Cruz MD - 11/23/2023 VASCULAR ULTRASOUND REPORT RODERICK HEATON : 1940 Study Date: 11/23/2023 7:17:22 AM Age: 83 years Tech: ARISTIDES/JOHNNY Gender: F Referring MD: CHARLOTTE SPRINGER Site: [facility] Study performed: Lower extremity resting [...] 194 Index +-----+ +--------+ +-----+ 1.24 241 ELECTRICAL FITTER 107 0.55 +-----+ +--------+ +-----+ 1.23 238 DPA 147 0.76 +-----+ +--------+ +-----+ 0.63 122 Digit 1 45 0.23 +-----+ +--------+ +-----+ Wang Dela Cruz MD. Electronically signed on 11/23/2023 12:17:56 PM This study was performed and interpreted by a service accredited by theIntersocietal Accreditation Commission (IAC/Vascular),[email or web address] Report generated by [employer]. Final Charlotte Springer MD US * US ARTERIAL LOWER EXTREMITY BILATERAL (11/23/2023 8:37 AM CDT) Anatomical Region Laterality Modality LEGS, LEG L, LEG R Ultrasound 11/23/2023 7:26 AM CDT Narrative 11/23/2023 12:22 PM CDT VASCULAR ULTRASOUND REPORT RODERICK HEATON Accession#: ?? [id number] : ?1940 ??Study Date: ?? 11/23/2023 7:26:56 AM Age: ?83 years ?? Tech: ? KBN/CRK Gender: F ?Referring MD: CHARLOTTE SPRINGER Site: [facility] Study performed: ?Lower extremity duplex [...] DST ? 104 ? +--------+ + +-----+ MERCHANDISE STOCKER DST ? 111 ? +--------+ + +-----+ PFA ? 88 ? +--------+ + +-----+ SFA PRX ? 111 ? +--------+ + +-----+ SFA MID ? 66 ? +--------+ + +-----+ SFA DST ? 415 ? 64 ? 6.5 ?? +--------+ + +-----+ COLLIN PRX ? 101 ? +--------+ + +-----+ COLLIN DST ? 41 ? +--------+ + +-----+ ELECTRICAL FITTER DST ? 80 ? +--------+ + +-----+ KAREN DST ? 38 ? +--------+ + +-----+ LAXMI DST -179 retro ? +--------+ + +-----+ DPA ?-34 retro ? +--------+ + +-----+ +--------+ + +-----+ LEFT ? Velocity cm/s PRE ? Ratio ? Velocity cm/s ? Phasicity ? +--------+ + +-----+ EIA DST ? 100 ? +--------+ + +-----+ MERCHANDISE STOCKER DST ? 98 ? +--------+ + +-----+ PFA ? 73 ? +--------+ + +-----+ SFA PRX ? 100 ? +--------+ + +-----+ SFA MID ? 52 ? +--------+ + +-----+ SFA DST ? 44 ? +--------+ + +-----+ COLLIN PRX ? 674 ? 55 ? 12.3 +--------+ + +-----+ COLLIN DST ? 27 ? +--------+ + +-----+ ELECTRICAL FITTER DST ? 11 ? +--------+ + +-----+ [...] Accreditation Commission (IAC/Vascular), [email or web address]/vascular Report generated by [employer]. ??Final ?? Procedure Note Wang Dela Cruz MD - 11/23/2023 VASCULAR ULTRASOUND REPORT RODERICK HEATON : 1940 Study Date: 11/23/2023 7:26:56 AM Age: 83 years Tech: ARISTIDES/JOHNNY Gender: F Referring MD: CHARLOTTE SPRINGER Site: [facility] Study performed: Lower extremity duplex [...] +-----+ EIA DST 104 +--------+ + +-----+ MERCHANDISE STOCKER DST 111 +--------+ + +-----+ PFA 88 +--------+ + +-----+ SFA PRX 111 +--------+ + +-----+ SFA MID 66 +--------+ + +-----+ SFA DST 415 64 6.5 +--------+ + +-----+ COLLIN PRX 101 +--------+ + +-----+ COLLIN DST 41 +--------+ + +-----+ ELECTRICAL FITTER DST 80 +--------+ + +-----+ KAREN DST 38 +--------+ + +-----+ LAXMI DST -179 retro +--------+ + +-----+ DPA -34 retro +--------+ + +-----+ +--------+ + +-----+ LEFT Velocity cm/s PRE Ratio Velocity cm/s Phasicity +--------+ + +-----+ EIA DST 100 +--------+ + +-----+ MERCHANDISE STOCKER DST 98 +--------+ + +-----+ PFA 73 +--------+ + +-----+ SFA PRX 100 +--------+ + +-----+ SFA MID 52 +--------+ + +-----+ SFA DST 44 +--------+ + +-----+ COLLIN PRX 674 55 12.3 +--------+ + +-----+ COLLIN DST 27 +--------+ + +-----+ ELECTRICAL FITTER DST 11 +--------+ + +-----+ LAXMI DST [...] theIntersocietal Accreditation Commission (IAC/Vascular),[email or web address] Report generated by [employer]. Final Charlotte Springer MD US * (ABNORMAL) XR DXA BONE DENSITY 2 SITES AXIAL (07/02/2019 11:48 AM GAS CONTROLLER) Anatomical Region Laterality Modality Spine, HIPS, HIPL, HIPR Other Narrative 07/06/2019 11:01 AM GAS CONTROLLER Please see scanned document for results of this study. 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
--- OUTSIDE RECORDS SUMMARY | 2024-01-02 13:26 | XMS_ITS | Data Portability ---
Author Organization [facility], [facility] Address [address] [place] Lopez [address] Care Team Providers Care Screen Examiner Name Role Phone [facility] Primary Care Provider Assessment No assessment [...] By Organization Details Last Modified Time 09/14/2021 [id number] Test each progra m for at least 2 weeks, adjusting amplitude as needed. May remain on a program as long as it is effective. Return as needed for reprogramming. [email or web address] Not available 09/14/2021 10:07:26 Patient states t hat Gemtessa samples were very effective, but it is not covered by her insurance. She was also given a rx for Myrbetriq. [email or web address] Not available 09/14/2021 10:08:49 11/12/2021 [id number] Over Active Blad betty (OAB): -Managed with [...] minutes [email or web address] Not available 11/12/2021 11:46:55 04/09/2022 [id number] Test each progra m for at least 2 weeks, adjusting amplitude as needed. May remain on a program as long as it is effective. Return as needed for reprogramming. [email or web address] Not available 04/09/2022 12:34:22 Patient states t hat Gemtesa samples were effective, but the rx was too expensive, so she stopped taking. She would like to try the Gemtesa again, but wonders of it is ok t take every other day, to spread the prescription out, and decrease the expense. I will ask Afsaneh Bui PAC. [email or web address] Not available 04/09/2022 12:37:43 12/06/2022 [id number] Test each progra m for at least 2 weeks, adjusting amplitude as needed. May remain on a program as long as it is effective. Return as needed for reprogramming. [email or web address] Not available 12/06/2022 10:55:41 04/28/2023 [id number] Over Active Blad betty (OAB): -Managed with [...] TUS color -advantus YELLOW yellow Not Available [facility] [address], [place], [address], 09/14/2021 10:41:46 09/15/19 22 09/14/2021 UA DIP CS ADVAN TUS appearance -advantus CLEAR clear Not Available [facility] [address], [place], [address], 09/14/2021 10:41:46 09/15/19 22 09/14/2021 UA DIP CS ADVAN TUS glucose -advantus NEGATI VE mg/dL negati ve Not Available [facility] [address], [place], [address], 09/14/2021 10:41:46 09/15/19 22 09/14/2021 UA DIP CS ADVAN TUS bilirubin -advantus NEGATI VE negati ve Not Available [facility] [address], [place], [address], 09/14/2021 10:41:46 09/15/19 22 09/14/2021 UA DIP CS ADVAN TUS ketones -advantus NEGATI VE mg/dL negati ve Not Available [facility] [place] [facility] [address], [place], [address], 09/14/2021 10:41:46 09/15/19 22 09/14/2021 UA DIP CS ADVAN TUS sp. gravity -advantus 1.010 1.010- 1.025 Not Available [facility] [place] [facility] [address], [place], [address], 09/14/2021 10:41:46 09/15/19 22 09/14/2021 UA DIP CS ADVAN TUS pH -advantus 6.0 5.0-8. 0 Not Available [facility] [place] [facility] [address], [place], [address], 09/14/2021 10:41:46 09/15/19 22 09/14/2021 UA DIP CS ADVAN TUS protein -advantus NEGATI VE mg/dL negati ve Not Available [facility] [address], [place], [address], 09/14/2021 10:41:46 09/15/19 22 09/14/2021 UA DIP CS ADVAN TUS urobilinogen -advantus 0.2 normal Not Available [facility] [address] [place] [address] [address], [place], [address], 09/14/2021 10:41:46 09/15/19 22 09/14/2021 UA DIP CS ADVAN TUS nitrites -advantus NEGATI VE negati ve Not Available [facility] [address] [place] [address] [address], [place], [address], 09/14/2021 10:41:46 09/15/19 22 09/14/2021 UA DIP CS ADVAN TUS blood -advantus SMALL negati ve abnormal Not Available [facility] [address] [place] [address] [address], [place], [address], 09/14/2021 10:41:46 09/15/19 22 09/14/2021 UA DIP CS ADVAN TUS leukocytes -advantus NEGATI VE negati ve Not Available [facility] [address] [place] [address] [address], [place], [address], 09/14/2021 10:41:46 09/15/19 22 09/14/2021 UA DIP CS ADVAN TUS performed by Bibi Ruiz Not Available [facility] [address] [place] [address] [address], [place], [address], 09/14/2021 10:41:46 09/15/19 22 09/14/2021 UA DIP CS ADVAN TUS total urine volume (mL) 20cc /mL Not Available [facility] [address] [place] [address] [address], [place], [address], 09/14/2021 10:41:46 09/15/19 22 09/14/2021 UA MICRO SCOPI C U-WBC 0 - 2 [hpf] 0 - 2 Not Available [facility] [address] [place] [address] [address], [place], [address], 09/14/2021 10:41:47 09/15/19 09/14/2021 UA MICRO SCOPI C U-RBC 0 - 2 [hpf] 0 - 2 Not Available [facility] [address], [place], [address], 09/14/2021 10:41:47 09/15/19 22 09/14/2021 UA MICRO SCOPI C bacteria Small [hpf] negati ve abnormal Not Available [facility] [address], [place], [address], 09/14/2021 10:41:47 09/15/19 22 09/14/2021 UA MICRO SCOPI C squamous epi Small /lpf negati ve,sma ll Not Available [facility] [address], [place], [address], 09/14/2021 10:41:47 Result Notes None recorded. Problems Name Status Onset Date Resolution Date Notes Provider Name and Address Organization Details Recorded Time Chronic cystitis Active 2018 N30.20 : Chronic cystitis Not Available [facility] 0 23:40:26 Overactive urinary bladder Active 2018 N32.81 : Bladder muscle dysfunction - overactive Not Available [facility] 0 23:40:26 Benign neoplastic disease Active 2019 Daphne felix [facility] 0 09:58:09 Tear film insufficiency Active 2019 Daphne felix [facility] 0 09:58:21 Gastroesophageal reflux disease Active 2019 Daphne felix, [facility] 0 09:58:28 Hyperlipidemia Active 2019 Daphne felix, [facility] 0 09:58:36 Heart disease Active 2022 Radhika felix, [facility] 3 11:27:33 Problem Notes None recorded. Procedures Surgical History Date Name Laterality Status Provider Name and Address Organization Details Recorded Time 04/28/20 23 Sacral neuromodulation w/o reprogramming completed ELMA Blanco [address], [place], [address], [facility] 04/28/2023 11:57:28 04/28/20 23 Bladder Scan completed Radhika Mathis null, [facility] 04/28/2023 11:36:21 12/07/19 23 Sacral neuromodulation w/o reprogramming completed Demetri Bosch null, [facility] 12/06/2022 11:08:45 04/09/20 22 Sacral Stimulator Reprogramming completed Demetri Bosch null, [facility] 04/09/2022 12:49:34 09/15/19 22 Bladder Scan completed Merry Ocampo null, [facility] 09/14/2021 10:25:15 09/15/19 22 Sacral neuromodulation w/o reprogramming completed Demetri Bosch null, [facility] 09/14/2021 10:15:12 08/03/19 22 Past Data Reviewed completed Charlotte Smith MD [address], [place], [address], [facility] 08/03/2021 08:29:52 08/03/19 22 Bladder Scan completed Usha Corado null, [facility] 08/03/2021 11:50:03 11/27/19 21 Sacral Stimulator Reprogramming completed Demetri Bosch null, [facility] 11/27/2020 12:44:01 09/17/19 20 Implant neuroelectrodes completed Not Available [facility] 12/13/2019 18:11:39 11/29/19 19 Insert bladder catheter completed Not Available [facility] 12/13/2019 18:11:39 11/14/19 15 Colonoscopy completed Lucinda Nuñez null, [facility] 11/11/2020 11:57:08 11/29/19 09 Total hip arthroplasty completed Not Available [facility] 12/13/2019 18:11:39 11/29/19 00 Unlisted procedure breast completed Not Available [facility] 12/13/2019 18:11:39 Appendectomy add-on completed Not Available [facility] 12/13/2019 18:11:39 Imaging Results None recorded. Procedure Notes None recorded. Medical Equipment None Reported. Allergies Allergen ID Allergen Name Allergen Category Reaction Reaction Severity Criticality Documentation Date Start Date Code Code System Note Provider Name and Address Organization Details Recorded Time 934970 Nitroimid azole (substanc e) medicatio n Not available Not available Not available 12/12/2019 92482 5001 SNOMED Not Available [facility] 0 23:50:45 670870 sulindac medicatio n Not available Not available Not available 12/12/2019 83989 RxNorm Not Available [facility] 0 23:50:45 396788 Medicinal product containin g penicilli n and acting as antibacte rial agent (product) medicatio n itching Not available Not available 12/12/2019 10173 05 SNOMED Not Available [facility] 0 23:50:45 478368 atorvasta tin medicatio n Not available Not available Not available 12/12/2019 47888 RxNorm Not Available [facility] 0 23:50:45 497919 tetracycl ine medicatio n Not available Not available Not available 12/12/2019 11614 RxNorm Not Available [facility] 0 23:50:45 712271 alendrona te sodium medicatio n Not available Not available Not available 12/12/2019 40532 2 RxNorm Not Available [facility] 0 23:50:45 990674 amoxicill in medicatio n Not available Not available Not available 12/12/2019 723 RxNorm Not Available [facility] 0 23:50:45 032413 oxybutyni n chloride Not available dizziness Not available Not available 12/12/2019 69024 RxNorm fatig ue Not Available [facility] 0 23:50:45 136937 aspirin medicatio n Not available Not available Not available 12/12/2019 1191 RxNorm Not Available [facility] 0 23:50:46 009356 losartan Not available Not available Not available Not available 12/12/2019 16461 RxNorm Not Available [facility] 0 23:50:46 717176 estrogens , conjugate d (LONG TERM) medicatio n Not available Not available Not available 12/12/2019 4099 RxNorm Not Available [facility] 0 23:50:46 706601 ciproflox acin medicatio n Not available Not available Not available 12/12/2019 2551 RxNorm Not Available [facility] 0 23:50:46 307791 hydrochlo rothiazid e medicatio n Not available Not available Not available 12/12/2019 5487 RxNorm Not Available [facility] 0 23:50:46 093960 metoprolo l Not available Not available Not available Not available 12/12/2019 6918 RxNorm Not Available [facility] 0 23:50:46 136622 naproxen medicatio n Not available Not available Not available 12/12/2019 7258 RxNorm Not Available [facility] 0 23:50:46 491846 clindamyc in Not available Not available Not available Not available 12/12/2019 2582 RxNorm Not Available [facility] 0 23:50:46 815498 Substance with sulfonami de structure and antibacte rial mechanism of action (substanc e) medicatio n Not available Not available Not available 11/11/2020 14293 8003 SNOMED Lucinda Vossen [facility] 1 11:56:30 702483 Myrbetriq medicatio n swelling Not available Not available 10/05/2021 30642 92 RxNorm RODERICK ALIX [facility] 2 13:18:14 098581 S[place]us Elder[employer] y Immune medicatio n Not available Not available Not available 04/09/2022 Demetri Bosch [facility] 2 12:14:11 Medications Name [...] Updated DateTime 04/09/2022 154.94 cm 27.8 kg/m2 82871.08 g Demetri Bosch [facility] 04/09/2022 12:13:52 Date Recorded Body height Body mass index (BMI) Body weight Provider Name and Address Organization Details Last Updated DateTime 12/06/2022 154.94 cm 25.5 kg/m2 39412.97 g Demetri Bosch [facility] 12/06/2022 10:41:56 Date Recorded Body height Body mass index (BMI) Body weight Provider Name and Address Organization Details Last Updated DateTime 04/28/2023 154.94 cm 25.5 kg/m2 93826.97 g Radhika Mathis [facility] 04/28/2023 11:25:35 Date Recorded Body height Body mass index (BMI) Body weight Provider Name and Address Organization Details Last Updated DateTime 09/14/2021 158.75 cm 26.5 kg/m2 67372.08 g Demetri Bosch [facility] 09/14/2021 09:54:39 Date Recorded Body height Body mass index (BMI) Body weight Provider Name and Address Organization Details Last Updated DateTime 09/14/2021 158.75 cm 26.5 kg/m2 05228.08 zeus Ocampo [facility] 09/14/2021 10:08:57 Date Recorded Body height Body mass index (BMI) Body weight Provider Name and Address Organization Details Last Updated DateTime 11/12/2021 154.94 cm 27.8 kg/m2 67539.08 zeus Ocampo [facility] 11/12/2021 11:32:20 Social History Question Answer Notes LastModified by Organizat ion Details LastModified Time Tobacco Smoking Status Never Smoker Not Available [facility] 12/13/2019 02:00:45 What Is Your Level Of Alcohol Consumption? None Information not available 09/14/2021 What Is Your Level Of Caffeine Consumption? Heavy Information not available 09/14/2021 Are You Currently Employed? No Information not available 09/14/2021 Race White Information n ot available 12/13/2019 Ethnicity Not /Lat vane Information not available 09/14/2021 Preferred Language Romanian Information not available 09/14/2021 Recreational Drug Use No Information not available 09/14/2021 Could You Be ? No Information not available 09/14/2021 Marital Status Informati on not available 12/13/2019 What Was The Date Of Your Most Recent Tobacco Screening? 12/06/2022 [email or web address] Information not available 12/06/2022 What Is Your [...] Response Sexually Transmitted Infection N Diabetes N Other N Bleeding Disorder Y High Blood Pressure Y Kidney Stones N High Cholesterol N GERD/Acid Reflux Y Heart Disease Y Cancer N Depression N Lung Disease N Gynecological HistoryNo gynecological history recorded. Obstetrics History GPAL:G 0 P 0 0 0 0 Immunizations Vaccine Type Date Status Provider Name and Address Organization Details Recorded Time Pneumococcal conjugate PCV 13 07/04/2017 completed STEPHEN Germain - [facility] 04/28/2023 11:25:40 Past Encounters Encounter ID Performer Location Encounter Start Date Encounter Closed Date Diagnosis/Indication Diagnosis SNOMED-CT Code [id number] Charlotte Smith MD [address] [address] 04/15/2020 10:02:52 04/25/2020 12:54:57 Overactive urinary bladder [id number] Urge incon tinence of urine [id number] [id number] [facility] [address] [address] 05/13/2020 10:14:48 05/13/2020 14:22:18 Overactive urinary bladder 018795150 Urge incon tinence of urine 03541555 History of urinary tract infection [id number] [facility] [address] [address] 11/11/2020 11:46:55 11/11/2020 13:40:18 Overactive urinary bladder 410704482 Urge incon tinence of urine 99340585 [id number] [facility] [address],[email or web address] [address] [place] [address] 11/26/2020 10:15:12 12/02/2020 15:37:48 Overactive urinary bladder 849138356 Nocturia [id number] Charlotte Smith MD [facility] [address] [place] [address] 08/03/2021 11:31:50 08/03/2021 12:09:22 Overactive urinary bladder 311272677 Urge incon tinence of urine 99493000 Nocturia 630341877 [id number] ELMA Blanco [facility] [address] [place] [address] [place] [address] 09/14/2021 10:06:36 09/14/2021 14:16:12 Overactive urinary bladder 475022434 Urge incon tinence of urine 11740191 Nocturia 621900338 [id number] Demetri Bosch [facility] [address] [place] [address] [place] [address] 09/14/2021 09:30:06 09/14/2021 14:31:59 Overactive urinary bladder 825815430 [id number] ELMA Blanco [facility] [address] [place] [address] [place] [address] 11/12/2021 11:29:59 11/12/2021 12:37:25 Overactive urinary bladder 235309555 Urge incon tinence of urine 02537504 Nocturia 516291441 [id number] Demetri Bosch [facility] [address] [place] [address] [place] [address] 04/09/2022 11:43:46 04/09/2022 13:38:20 Overactive urinary bladder 171536469 [id number] Demetri Bosch [facility] [address] [place] [address] [place] [address] 12/06/2022 10:28:13 12/06/2022 11:24:29 Overactive urinary bladder 934878714 [id number] ELMA Blanco [facility] [address] [place] [address] [place] [phone] 04/28/2023 11:22:38 04/28/2023 12:04:03 Overactive urinary bladder 479459213 Urge incon tinence of urine 15947417 Nocturia [id number] Health Concerns Section Related Observation LastModified by Organization Detai ls LastModified Time None Recorded Concern Status LastModified by Organization Details LastModified Time None Recorded Advance Directives Directive None Recorded Payers Encounter Date Sequence Insurance Name Policy Number Policy Betancourt Covered Member ID Betancourt Member ID Guarantor Name 09/14/2021 1 [facility] P[employer]y [employer] Wood [id number] P[employer]y [employer] 09/14/2021 2 [place] [id number] Patsy A Wood [id number] Patsy A Wood 11/12/2021 1 [place] [employer] [facility] Patsy A Wood [id number] Patsy A Wood 11/12/2021 2 [place] [id number] Patsy A Wood [id number] Patsy A Wood 04/09/2022 1 [place] [place] [facility] Patsy A Wood [id number] Patsy A Wood 04/09/2022 2 [place] [id number] Patsy A Wood [id number] Patsy [employer] Wood 12/06/2022 1 [place] [place] [facility] Patsy A Wood [id number] Patsy [employer] Wood 12/06/2022 2 [place] [id number] Patsy A Wood [id number] Patsy [employer] 04/28/2023 1 [place] [employer] [place] [facility] Patsy A Wood [id number] Patsy [employer] Wood 04/28/2023 2 [place] [id number] Patsy A Wood [id number] Patsy A Wood Notes Date Note Type [...] to be almost every hour. ELMA Blanco [address] [place] [address],[address], [place], [address], [facility] 09/14/2021 10:49:41 11/12/2021 text/html [...] with sjorgrens. This visit was conducted using [employer] technology. Prior to conducting our health visit, the patient and I discussed the risks, benefits and alternatives to phone visits. The patient elected to proceed with the phone visit. ELMA Blanco [address] [place] [address],[facility] [address], [address], [facility] 11/12/2021 11:50:24 12/06/2022 text/html [...] changed Rate chaanged Resolution changed Demetri felix [facility] 12/06/2022 11:08:58 04/28/2023 text/html HPI [...] to be almost every hour. ELMA Blanco [address] [place] [address],[address], [place], [address], [place] [facility] 04/28/2023 11:58:40 OBGyn Episode No OBEpisode recorded.
--- OUTSIDE RECORDS SUMMARY | 2024-01-02 13:26 | XMS_ITS | Continuity of Care Document ---
Author Organization [facility] Address [address] [place] [address] Phone Care Team Providers Care Menagerie Caretaker Name Role Phone Helder Medina MD Unavailable [...] [facility], [address], [place], [address], [place] tel:[phone] [facility], No Information Apr-- 4 Adam Pendleton. [address], [address], [place], [address], [place]. tel:[phone] Referring Provider: Helder Jain, [address], [place], [address]. tel:[phone] Office/Outpa tient Visit, Est [facility], [address], [place], [address], [place] tel:[phone] [facility], Sjogren syndrome w/ inflammatory arthritisPain in left foot Apr- 0 4 Lebedoff Helder. [address], [address], [place], [address], [place]. tel:[phone] Referring Provider: Helder Jain, [address], [place], [address]. tel:[phone] Office/Outpa tient Visit, Est [facility], [address], [place], [address], [place] tel:[phone] [facility], Sjogren syndrome w/ inflammatory arthritisPrim mauri osteoarthriti s, right hand 3 Lebedoff Helder. [address], [address], [place], [address], [place]. tel:[phone] Referring Provider: Helder Jain, [address], [place], [address]. tel:[phone] Office/Outpa tient Visit, Est [facility], [address], [place], [address], [place] tel:[phone] [facility], Sicca syndrome, unspecifiedWe akness November- 0 3 Lebedoff Helder. [address], [address], [place], [address], [place]. tel:[phone] Referring Provider: Helder Jain, [address], [place], [address]. tel:[phone] Office/Outpa tient Visit, Est [facility], [address], [place], [address], [place] tel:[phone] [facility], Sicca syndrome, unspecifiedPa in in left shoulder Apr- 2 Adam Pendleton. [address], [address], [place], [address], [place]. tel:[phone] Referring Provider: Helder Jain, [address], [place], [address]. tel:[phone] Office/Outpa tient Visit, Est [facility], [address], [place], [address], [place] tel:[phone] [facility], Sicca syndrome, unspecifiedDy spnea Oct- 2 Adam Pendleton. [address], [address], [place], [address], [place]. tel:[phone] Referring Provider: Helder Jain, [address], [place], [address]. tel:[phone] Office/Outpa tient Visit, Est [facility], [address], [place], [address], [place] tel:[phone] [facility], Sicca syndrome, unspecifiedOt her termination clerk (current) drug therapyPrimar y OA of right handDyspnea Apr- 1 Adam Pendleton. [address], [address], [place], [address], [place]. tel:[phone] Referring Provider: Helder Jain, [address], [place], [address]. tel:[phone] Office/Outpa tient Visit, New [facility], [address], [place], [address], [place] tel:[phone] [facility], Sicca syndrome, unspecifiedPa in in rt ankleOther penitentiary (current) drug therapy 1 Adam Pendleton. [address], [address], [place], [address], [place]. tel:[phone] Referring Provider: Helder Medina G, [address], [address]. tel:[phone] [facility], [address], [place], [address], [place] tel:[phone] [facility] No Information 1 Mo Sullivan. [facility] [address] [place] [address] [address], [place], [address], [place]. tel:[phone] Family History Family Member Type Diagnosis Age At Onset No Information Immunizations Vaccine Date Status Comments COVID-19 Moderna administered Source: Ot er Provider COVID-19 Pfizer administered Note: 1 ; Source: Other Provider Payers Payer name Insurance type Covered constitution party ID Authoriza tion(s) [employer] Adv [id number] Social History Type Description Quantity Date Captured [...] Order Fo ot X-ray; Complete (3+ views) (33855), Sent on: Sent History Of Present Illness [...]
== END 2024-01-02 14:00 | disposition home or self-care (01) ==
LOC: ED 13:24
PROVIDERS: Emergency Provider Emergency Medicine Emergency Medical Services; PCP Physician Assistant Medical
DX: S81.802A Unspecified open wound, left lower leg, initial encounter (principal)
CPT/HCPCS: 99282; 99283; 99284

== ENCOUNTER 2024-01-03 13:51 | Outpatient (REF) | payer OTHER, SELFPAY ==
--- OUTSIDE RECORDS SUMMARY | 2024-01-03 13:57 | XMS_ITS | Data Portability ---
Author Organization [facility], [facility] Address [address] [facility] [address] [place] [address] Care Team Providers Care Elastic Attacher Overlock Name Role Phone [facility] Primary Care Provider Assessment No assessment [...] By Organization Details Last Modified Time 09/14/2021 [id number] Test each progra m for at least 2 weeks, adjusting amplitude as needed. May remain on a program as long as it is effective. Return as needed for reprogramming. [email or web address] Not available 09/14/2021 10:07:26 Patient states t hat Gemtessa samples were very effective, but it is not covered by her insurance. She was also given a rx for Myrbetriq. Not available 09/14/2021 10:08:49 11/12/2021 [id number] Over Active Blad betty (OAB): -Managed with [...] minutes [email or web address] Not available 11/12/2021 11:46:55 04/09/2022 [id number] Test each progra m for at least 2 weeks, adjusting amplitude as needed. May remain on a program as long as it is effective. Return as needed for reprogramming. [email or web address] Not available 04/09/2022 12:34:22 Patient states t hat Gemtesa samples were effective, but the rx was too expensive, so she stopped taking. She would like to try the Gemtesa again, but wonders of it is ok t take every other day, to spread the prescription out, and decrease the expense. I will ask Afsaneh Bui PAC. [email or web address] Not available 04/09/2022 12:37:43 12/06/2022 [id number] Test each progra m for at least 2 weeks, adjusting amplitude as needed. May remain on a program as long as it is effective. Return as needed for reprogramming. [email or web address] Not available 12/06/2022 10:55:41 04/28/2023 [id number] Over Active Blad betty (OAB): -Managed with [...] Available [facility] [address] [facility] [address], [place], [address], 09/14/2021 10:41:46 09/15/19 22 09/14/2021 UA DIP CS ADVAN TUS appearance -advantus CLEAR clear Not Available [facility] [address] [facility] [address], [place], [address], 09/14/2021 10:41:46 09/15/19 22 09/14/2021 UA DIP CS ADVAN TUS glucose -advantus NEGATI VE mg/dL negati ve Not Available [facility] [address] [facility] [address], [place], [address], 09/14/2021 10:41:46 09/15/19 22 09/14/2021 UA DIP CS ADVAN TUS bilirubin -advantus NEGATI VE negati ve Not Available [facility] [address] [facility] [address], [place], [address], 09/14/2021 10:41:46 09/15/19 22 09/14/2021 UA DIP CS ADVAN TUS ketones -advantus NEGATI VE mg/dL negati ve Not Available [facility] [address] [facility] [address], [place], [address], 09/14/2021 10:41:46 09/15/19 22 09/14/2021 UA DIP CS ADVAN TUS sp. gravity -advantus 1.010 1.010- 1.025 Not Available [facility] [address] [facility] [address], [place], [address], 09/14/2021 10:41:46 09/15/19 22 09/14/2021 UA DIP CS ADVAN TUS pH -advantus 6.0 5.0-8. 0 Not Available [facility] [address] [facility] [address], [place], [address], 09/14/2021 10:41:46 09/15/19 22 09/14/2021 UA DIP CS ADVAN TUS protein -advantus NEGATI VE mg/dL negati ve Not Available [facility] [address] [facility] [address], [place], [address], 09/14/2021 10:41:46 09/15/19 22 09/14/2021 UA DIP CS ADVAN TUS urobilinogen -advantus 0.2 normal Not Available [facility] [address] [place] [address] [address], [place], [address], 09/14/2021 10:41:46 09/15/19 22 09/14/2021 UA DIP CS ADVAN TUS nitrites -advantus NEGATI VE negati ve Not Available [facility] [address] [place] [address] [address], [place], [address], 09/14/2021 10:41:46 09/15/19 22 09/14/2021 UA DIP CS ADVAN TUS blood -advantus SMALL negati ve abnormal Not Available [facility] [address] [place] [address] [address], [place], [address], 09/14/2021 10:41:46 09/15/19 22 09/14/2021 UA DIP CS ADVAN TUS leukocytes -advantus NEGATI VE negati ve Not Available [facility] [address] [place] [address] [address], [place], [address], 09/14/2021 10:41:46 09/15/19 22 09/14/2021 UA DIP CS ADVAN TUS performed by Bibi Ruiz Not Available [facility] [address] [place] [address] [address], [place], [address], 09/14/2021 10:41:46 09/15/19 22 09/14/2021 UA DIP CS ADVAN TUS total urine volume (mL) 20cc /mL Not Available [facility] [address] [place] [address] [address], [place], [address], 09/14/2021 10:41:46 09/15/19 22 09/14/2021 UA MICRO SCOPI C U-WBC 0 - 2 [hpf] 0 - 2 Not Available [facility] [address] [place] [address] [address], [place], [address], 09/14/2021 10:41:47 09/15/19 09/14/2021 UA MICRO SCOPI C U-RBC 0 - 2 [hpf] 0 - 2 Not Available [facility] [address] [facility] [address], [place], [address], 09/14/2021 10:41:47 09/15/19 22 09/14/2021 UA MICRO SCOPI C bacteria Small [hpf] negati ve abnormal Not Available [facility] [address] [facility] [address], [place], [address], 09/14/2021 10:41:47 09/15/19 22 09/14/2021 UA MICRO SCOPI C squamous epi Small /lpf negati ve,sma ll Not Available [facility] [address] [facility] [address], [place], [address], 09/14/2021 10:41:47 Result Notes None recorded. Problems Name Status Onset Date Resolution Date Notes Provider Name and Address Organization Details Recorded Time Chronic cystitis Active 2018 N30.20 : Chronic cystitis Not Available [facility] 0 23:40:26 Overactive urinary bladder Active 2018 N32.81 : Bladder muscle dysfunction - overactive Not Available [facility] 0 23:40:26 Benign neoplastic disease Active 2019 Daphne felix [facility] 0 09:58:09 Tear film insufficiency Active 2019 Daphne felix [facility] 0 09:58:21 Gastroesophageal reflux disease Active 2019 Daphne felix, [facility] 0 09:58:28 Hyperlipidemia Active 2019 Daphne felix, [facility] 0 09:58:36 Heart disease Active 2022 Radhika felix, [facility] 3 11:27:33 Problem Notes None recorded. Procedures Surgical History Date Name Laterality Status Provider Name and Address Organization Details Recorded Time 04/28/20 23 Sacral neuromodulation w/o reprogramming completed ELMA Blanco [address] [facility],[address], [place], [address], [facility] 04/28/2023 11:57:28 04/28/20 23 Bladder Scan completed Radhika Mathis null, [facility] 04/28/2023 11:36:21 12/07/19 23 Sacral neuromodulation w/o reprogramming completed Demetri Bosch null, [facility] 12/06/2022 11:08:45 04/09/20 22 Sacral Stimulator Reprogramming completed Demetri Bosch null, [facility] 04/09/2022 12:49:34 09/15/19 22 Bladder Scan completed Merry Ocampo null, [facility] 09/14/2021 10:25:15 09/15/19 22 Sacral neuromodulation w/o reprogramming completed Demetri Bosch null, [facility] 09/14/2021 10:15:12 08/03/19 22 Past Data Reviewed completed Charlotte Smith MD [address] [facility],[address], [place], [address], [facility] 08/03/2021 08:29:52 08/03/19 22 Bladder Scan completed Usha Corado null, [facility] 08/03/2021 11:50:03 11/27/19 21 Sacral Stimulator Reprogramming completed Demetri Bosch null, [facility] 11/27/2020 12:44:01 09/17/19 20 Implant neuroelectrodes completed Not Available [facility] 12/13/2019 18:11:39 11/29/19 19 Insert bladder catheter completed Not Available [facility] 12/13/2019 18:11:39 11/14/19 15 Colonoscopy completed Lucinda Nuñez null, [facility] 11/11/2020 11:57:08 11/29/19 09 Total hip arthroplasty completed Not Available [facility] 12/13/2019 18:11:39 11/29/19 00 Unlisted procedure breast completed Not Available [facility] 12/13/2019 18:11:39 Appendectomy add-on completed Not Available [facility] 12/13/2019 18:11:39 Imaging Results None recorded. Procedure Notes None recorded. Medical Equipment None Reported. Allergies Allergen ID Allergen Name Allergen Category Reaction Reaction Severity Criticality Documentation Date Start Date Code Code System Note Provider Name and Address Organization Details Recorded Time 268064 Nitroimid azole (substanc e) medicatio n Not available Not available Not available 12/12/2019 18824 5001 SNOMED Not Available [facility] 0 23:50:45 665161 sulindac medicatio n Not available Not available Not available 12/12/2019 61789 RxNorm Not Available [facility] 0 23:50:45 979052 Medicinal product containin g penicilli n and acting as antibacte rial agent (product) medicatio n itching Not available Not available 12/12/2019 02278 05 SNOMED Not Available [facility] 0 23:50:45 722153 atorvasta tin medicatio n Not available Not available Not available 12/12/2019 13810 RxNorm Not Available [facility] 0 23:50:45 325372 tetracycl ine medicatio n Not available Not available Not available 12/12/2019 64115 RxNorm Not Available [facility] 0 23:50:45 385142 alendrona te sodium medicatio n Not available Not available Not available 12/12/2019 37399 2 RxNorm Not Available [facility] 0 23:50:45 278189 amoxicill in medicatio n Not available Not available Not available 12/12/2019 723 RxNorm Not Available [facility] 0 23:50:45 004702 oxybutyni n chloride Not available dizziness Not available Not available 12/12/2019 61575 RxNorm fatig ue Not Available [facility] 0 23:50:45 250104 aspirin medicatio n Not available Not available Not available 12/12/2019 1191 RxNorm Not Available [facility] 0 23:50:46 571358 losartan Not available Not available Not available Not available 12/12/2019 11144 RxNorm Not Available [facility] 0 23:50:46 214588 estrogens , conjugate d (CUSTODIAL) medicatio n Not available Not available Not available 12/12/2019 4099 RxNorm Not Available [facility] 0 23:50:46 123066 ciproflox acin medicatio n Not available Not available Not available 12/12/2019 2551 RxNorm Not Available [facility] 0 23:50:46 875557 hydrochlo rothiazid e medicatio n Not available Not available Not available 12/12/2019 5487 RxNorm Not Available [facility] 0 23:50:46 755426 metoprolo l Not available Not available Not available Not available 12/12/2019 6918 RxNorm Not Available [facility] 0 23:50:46 179844 naproxen medicatio n Not available Not available Not available 12/12/2019 7258 RxNorm Not Available [facility] 0 23:50:46 092913 clindamyc in Not available Not available Not available Not available 12/12/2019 2582 RxNorm Not Available [facility] 0 23:50:46 722552 Substance with sulfonami de structure and antibacte rial mechanism of action (substanc e) medicatio n Not available Not available Not available 11/11/2020 04010 8003 SNOMED Lucinda Vossen [facility] 1 11:56:30 248250 Myrbetriq medicatio n swelling Not available Not available 10/05/2021 05956 92 RxNorm RODERICK ALIX [facility] 2 13:18:14 445926 Sambucus Elderberr y Immune medicatio n Not available Not available Not available 04/09/2022 Demetri Bosch [facility] 2 12:14:11 Medications Name Sig [...] Updated DateTime 04/09/2022 154.94 cm 27.8 kg/m2 21367.08 g Demetri Bosch [facility] 04/09/2022 12:13:52 Date Recorded Body height Body mass index (BMI) Body weight Provider Name and Address Organization Details Last Updated DateTime 12/06/2022 154.94 cm 25.5 kg/m2 56927.97 g Demetri Bsoch [facility] 12/06/2022 10:41:56 Date Recorded Body height Body mass index (BMI) Body weight Provider Name and Address Organization Details Last Updated DateTime 04/28/2023 154.94 cm 25.5 kg/m2 27597.97 g Radhika Mathis [facility] 04/28/2023 11:25:35 Date Recorded Body height Body mass index (BMI) Body weight Provider Name and Address Organization Details Last Updated DateTime 09/14/2021 158.75 cm 26.5 kg/m2 61161.08 g Demetri Bosch [facility] 09/14/2021 09:54:39 Date Recorded Body height Body mass index (BMI) Body weight Provider Name and Address Organization Details Last Updated DateTime 09/14/2021 158.75 cm 26.5 kg/m2 61969.08 zeus Ocampo [facility] 09/14/2021 10:08:57 Date Recorded Body height Body mass index (BMI) Body weight Provider Name and Address Organization Details Last Updated DateTime 11/12/2021 154.94 cm 27.8 kg/m2 20458.08 zeus Ocampo [facility] 11/12/2021 11:32:20 Social History Question Answer Notes LastModified by Organizat ion Details LastModified Time Tobacco Smoking Status Never Smoker Not Available [facility] 12/13/2019 02:00:45 What Is Your Level Of Alcohol Consumption? None Information not available 09/14/2021 What Is Your Level Of Caffeine Consumption? Heavy Information not available 09/14/2021 Are You Currently Employed? No Information not available 09/14/2021 Race White Information n ot available 12/13/2019 Ethnicity Not /Lat vane Information not available 09/14/2021 Preferred Language Arabic Information not available 09/14/2021 Recreational Drug Use No Information not available 09/14/2021 Could You Be ? No Information not available 09/14/2021 Marital Status Informati on not available 12/13/2019 What Was The Date Of Your Most Recent Tobacco Screening? 12/06/2022 [email or web address] Information not available 12/06/2022 What Is Your [...] Encounter Closed Date Diagnosis/Indication Diagnosis SNOMED-CT Code [id number] Charlotte Smith MD [address] [address] 04/15/2020 10:02:52 04/25/2020 12:54:57 Overactive urinary bladder 731503746 Urge incon tinence of urine 18354205 [id number] [facility] [address] [address] 05/13/2020 10:14:48 05/13/2020 14:22:18 Overactive urinary bladder 344069245 Urge incon tinence of urine 50029646 History of urinary tract infection [id number] [facility] [address] [address] 11/11/2020 11:46:55 11/11/2020 13:40:18 Overactive urinary bladder 055463569 Urge incon tinence of urine 77226985 [id number] [facility] [address] [facility] [address] [place] [address] 11/26/2020 10:15:12 12/02/2020 15:37:48 Overactive urinary bladder 111830122 Nocturia 633964285 [id number] Charlotte Smith MD [facility] [address] [place] [address] 08/03/2021 11:31:50 08/03/2021 12:09:22 Overactive urinary bladder 505621016 Urge incon tinence of urine 62305584 Nocturia 180198040 [id number] ELMA Balnco [facility] [address] [place] [address] [place] [address] 09/14/2021 10:06:36 09/14/2021 14:16:12 Overactive urinary bladder 664865405 Urge incon tinence of urine 04849978 Nocturia 716940427 [id number] Demetri Bosch [facility] [address] [place] [address] [place] [address] 09/14/2021 09:30:06 09/14/2021 14:31:59 Overactive urinary bladder 089313928 [id number] ELMA Blanco [facility] [address] [place] [address] [place] [address] 11/12/2021 11:29:59 11/12/2021 12:37:25 Overactive urinary bladder 024687008 Urge incon tinence of urine 55893924 Nocturia 739124561 [id number] Demetri Bosch [facility] [address] [place] [address] [place] [address] 04/09/2022 11:43:46 04/09/2022 13:38:20 Overactive urinary bladder 613850010 [id number] Demetri Bosch [facility] [address] [place] [address] [place] [address] 12/06/2022 10:28:13 12/06/2022 11:24:29 Overactive urinary bladder 481864642 [id number] ELMA Blanco [facility] [address] [place] [address] [place] [address] 04/28/2023 11:22:38 04/28/2023 12:04:03 Overactive urinary bladder 828082800 Urge incon tinence of urine 36775079 Nocturia 488200312 Health Concerns Section Related Observation LastModified by Organization Detai ls LastModified Time None Recorded Concern Status LastModified by Organization Details LastModified Time None Recorded Advance Directives Directive None Recorded Payers Encounter Date Sequence Insurance Name Policy Number Policy Betancourt Covered Member ID Betancourt Member ID Guarantor Name 09/14/2021 1 MEDICARE [facility]: [employer] [facility] Patsy A Wood [id number] Patsy A Wood 09/14/2021 2 [place] [id number] Patsy A Wood [id number] Patsy A Wood 11/12/2021 1 [place] [employer] [facility] Patsy A Wood [id number] Patsy A Wood 11/12/2021 2 [place] [id number] Patsy A Wood [id number] Patsy A Wood 04/09/2022 1 [place] [employer] [facility] Patsy A Wood [id number] Patsy A Wood 04/09/2022 2 [place] [id number] Patsy A Wood [id number] Patsy A Wood 12/06/2022 1 [place] [employer] [facility] Patsy A Wood [id number] Patsy A Wood 12/06/2022 2 [place] [id number] Patsy A Wood [id number] Patsy A Wood 04/28/2023 1 [place] [employer] [facility] Patsy A Wood [id number] Patsy A Wood 04/28/2023 2 [place] [id number] Patsy A Wood [id number] Patsy A Wood Notes Date Note Type [...] to be almost every hour. ELMA Blanco [address] [place] [address],[address], [place], [address], [facility] 09/14/2021 10:49:41 11/12/2021 text/html HPI Notes: [...] with sjorgrens. This visit was conducted using [employer] technology. Prior to conducting our health visit, the patient and I discussed the risks, benefits and alternatives to phone visits. The patient elected to proceed with the phone visit. ELMA Blanco [address] [place] [address],[facility] [address], [address], [facility] 11/12/2021 11:50:24 12/06/2022 text/html HPI Notes: [...] changed Rate chaanged Resolution changed Demetri felix [facility] 12/06/2022 11:08:58 04/28/2023 text/html HPI Notes: [...] to be almost every hour. ELMA Blanco [address] [place] [address],[address], [place], [address], [place] [facility] 04/28/2023 11:58:40 OBGyn Episode No OBEpisode recorded.
--- OUTSIDE RECORDS SUMMARY | 2024-01-03 13:57 | XMS_ITS | Continuity of Care Document ---
Author Organization [facility] Address [address] [place] [address] Phone Care Team Providers Care Thermospray Operator Name Role Phone Usha Dickinson Unavailable [...] on Encounter [facility], [address], [facility] [place], [id number], [place] tel:[phone] No Information [facility]. [facility], [address], [place], [place], [id number] , [place]. [phone] Office/Outpat ient Visit,Est, Mod [facility], [address], [place], [place], [id number], [place] tel:[phone] [facility] Other forms of scoliosis, thoracolumbar regionL2 wedge compression fracture, initial encounter for closed fractureSpondy lolisthesis, lumbar region 0 Puente Usha. [facility], [address], [place], [place], [id number] , [place]. tel:[phone] Referring Provider: Rakel Arvizu, [facility] [address] [place], [address]. tel:[phone] Office/Outpat ient Visit,Est, Mod [facility], [address], [facility] [place], [id number], [place] tel:[phone] [facility] L2 wedge compression fracture, initial encounter for closed fractureOther forms of scoliosis, thoracolumbar regionSpondylo listhesis, lumbar region 0 Kwame Kerr. [facility], [address], [place], [place], [id number] , . tel:[phone] Referring Provider: Rakel Arvizu [employer] [address] [place], [address]. tel:[phone] Office/Outpat ient Visit,[facility], [facility], [address], [facility] [place], [id number], [place] tel:[phone] [facility] L2 wedge compression fracture, initial encounter for closed fractureOther forms of scoliosis, thoracolumbar regionSpondylo listhesis, lumbar region [address] [facility], [address], [place], [place], [id number] , [place]. tel:[phone] Referring Provider: Rakel Arvizu [employer] [address] [place], [address]. tel:[phone] Family History Family Member Type Diagnosis Age At Onset No Information Payers Payer name Insurance type Covered democrat ID Authoralethaa tishannon(s) Medicare MB [id number] [facility] [id number] [facility] [id number] Social History Type Description Quantity Date Captured [...]
--- OUTSIDE RECORDS SUMMARY | 2024-01-03 13:57 | XMS_ITS | Continuity of Care Document ---
Author Organization [facility] Address [address] [place] [address] Phone Care Team Providers Care Perfumer Name Role Phone Helder Medina MD Unavailable [...] Antibodies Dna Antibody, Single Strand Dna Antibody, [place] Nuclear Antigen Antibodies Rheumatoid Factor, IGM Rheumatoid Factor, IGG, IGA Advance Directives Directive Yes / No Effective Date File Name No Information Encounters Encounter Description Practice Location Reason(s) For Visit Diagnoses Date Provider Providers Copied on Encounter [facility], [address], [place], [address], [place] tel:[phone] [facility], No Information Apr-- 4 Adam Pendleton. [address], [address], [place], [address], [place]. tel:[phone] Referring Provider: Helder Jain, [address], [place], [address]. tel:[phone] Office/Outpa tient Visit, Est [facility], [address], [place], [address], [place] tel:[phone] [facility], Sjogren syndrome w/ inflammatory arthritisPain in left foot Apr- 0 4 Lebedoff Helder. [address], [address], [place], [address], [place]. tel:[phone] Referring Provider: Helder Jain, [address], [place], [address]. tel:[phone] Office/Outpa tient Visit, Est [facility], [address], [place], [address], [place] tel:[phone] [facility], Sjogren syndrome w/ inflammatory arthritisPrim mauri osteoarthriti s, right hand 3 Lebedoff Helder. [address], [address], [place], [address], [place]. tel:[phone] Referring Provider: Helder Jain, [address], [place], [address]. tel:[phone] Office/Outpa tient Visit, Est [facility], [address], [place], [address], [place] tel:[phone] [facility], Sicca syndrome, unspecifiedWe akness November- 0 3 Lebedoff Helder. [address], [place], [address], [place]. tel:[phone] Referring Provider: Helder Jain, [address], [place], [address]. tel:[phone] Office/Outpa tient Visit, Est [facility], [address], [place], [address], [place] tel:[phone] [facility], Sicca syndrome, unspecifiedPa in in left shoulder Apr- 2 Adam Pendleton. [address], [place], [address], [place]. tel:[phone] Referring Provider: Helder Jain, [address], [place], [address]. tel:[phone] Office/Outpa tient Visit, Est [facility], [address], [place], [address], [place] tel:[phone] [facility], Sicca syndrome, unspecifiedDy spnea Oct- 2 Adam Pendleton. [address], [place], [address], [place]. tel:[phone] Referring Provider: Helder Jain, [address], [place], [address]. tel:[phone] Office/Outpa tient Visit, Est [facility], [address], [place], [address], [place] tel:[phone] [facility], Sicca syndrome, unspecifiedOt her ferry terminal agent (current) drug therapyPrimar y OA of right handDyspnea Apr- 1 Adam Pendleton. [address], [place], [address], [place]. tel:[phone] Referring Provider: Helder Jain, [address], [place], [address]. tel:[phone] Office/Outpa tient Visit, New [facility], [address], [place], [address], [place] tel:[phone] [facility], Sicca syndrome, unspecifiedPa in in rt ankleOther detention (current) drug therapy 1 Adam Pendleton. [address], [address], [place], [address], [place]. tel:[phone] Referring Provider: Helder Medina G, [address], [place], [address]. tel:[phone] [facility], [address], [place], [address], [place] tel:[phone] [facility] No Information 1 Mo Sullivan. [facility] [address] [place] [address] [address], [place], [address], [place]. tel:[phone] Family History Family Member Type Diagnosis Age At Onset No Information Immunizations Vaccine Date Status Comments COVID-19 Moderna administered Source: Ot er Provider COVID-19 Pfizer administered Note: 1 ; Source: Other Provider Payers Payer name Insurance type Covered constitution party ID Authoriza tion(s) [employer] Adv [id number] Social History Type Description Quantity Date Captured [...] Order Fo ot X-ray; Complete (3+ views) ([id number]), Sent on: Sent History Of Present Illness [...]
--- OUTSIDE RECORDS SUMMARY | 2024-01-03 13:57 | XMS_ITS | Clinical Summary ---
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 09/27 Prediabetes [...] Date Anticoagulation monitoring, INR range 2-3 [Z79.01]; [place] [employer] 2.5-3.0 12/06/2016 1 Pessary maintenance 02/25/2016 09/28/19 20 Anticoagulation monitoring, goal range 2.0-2.6 09/19/2013 01/09/2018 Abnormal stress test 11/17/2010 011 Routine general medical exam ination at a health care facility 07/12/2009 09/28/2019 Overview: Normal CT angiogram 11/2010 Hip pain 05/06/2008 07/09/2009 Onychomycosis 05/06/2008 08/27/2008 HX OF VENOUS THROMBOSIS AND EMBOLISM 11/09/2006 12/06/2012 Bilateral pulmonary embolism 10/11/2006 11/18/2017 AFTERCARE, LONG-TERM USE, LA DICATIONS NEC-PLAQUENIL 10/22/2003 Encounters Date Type Department Care Team Description 12/30/2023 Transcribe Orders [facility] [address] [place] [address] Charlotte Springer MD 12/12/2023 Lab Requisition [facility] [phone] Unknown, Doctor 12/09/2023 Telephone [facility] [address] [place] [address] Charlotte Springer MD Care Coordination 12/05/2023 11:00 AM CDT Office Visit [facility] [address] [place] [address] Charlotte Springer MD Follow Up (LLE wound follow up ) 12/05/2023 8:56 AM CDT - 12/05/2023 11:59 PM CDT Hospital Encounter [facility] [address] [place] [address] Charlotte Springer MD Venous insufficiency; Venous stasis ulcer of ankle, left (HC) 12/05/2023 Travel 11/23/2023 9:30 AM CDT Office Visit [facility] [address] [place] [address] Charlotte Springer MD Ankle Pain/problem (L medial malleolar ulcer) 11/23/2023 6:47 AM CDT - 11/23/2023 11:59 PM CDT Hospital Encounter [facility] [address] [place] [address] Charlotte Springer MD PAD (peripheral artery disease) (HC) 11/22/2023 Travel from Last 3 Months Immunizations Name Administration Dates Next Due AMB INFLUENZA IIV3 (AGE 65+ YRS) PF (Flu Clinic Only) 03/23/2017 AMB Influenza, IIV3 (Age >=3 years) Preserve Free (Flu Clinic Only) 04/08/2009 AMB Influenza, IIV3 (Age >=3 years)(Flu Clinic Only) 04/06/2013,04/16/2011,04/24/2008 COVID-19 vaccine (EnergyChest 30mcg/0.3mL) PF, MDV 09/02/2020,08/12/2020 Influenza A (H1N1), [...] Description 02/06/2024 10:30 AM CDT Office Visit [facility] [address] [place] [phone] Charlotte Springer MD [address] [place], [place] [id number] 02/28/2024 10:00 AM CDT Office Visit [facility] [address] [place], [place] [id number] [place] [address] [place] [address] Health Maintenance Due Date Last Done Comments [...] 01/13/2016, 12/18/2010 Medical Devices Implanted Type Area Watershed Tender Device Identifier Shelf Expiration Date Model / Serial / Lot Lead Kit 4.32mm Spacing 28cm Length Interstim - [id number] Implanted:Qty: 1 on 04/01/2020 by Charlotte Smith MD at [facility] N/A: Sacrum [employer] Pain Therapy 09/30/2021 [id number] / / [id number] Stimulator 7.7mm 14cc Interstim Ii - [id number] Implanted:Qty: 1 on 04/01/2020 by Charlotte Smith MD at [facility] N/A: Sacrum [employer] Pain Therapy 03/31/2021 [id number] / [id number] / Description:PIN [id number] Procedures Procedure Name Priority Date/Time Associated Diagnosis [...] 2 SITES AXIAL Routine 07/02/2019 11:48 AM SCALE TECHNICIAN Osteopenia of multiple sites from Last 3 Months or Most Recently Relevant to Health Maintenance Results * (ABNORMAL) REFERRAL ID/MOHAN,NONURINE (12/08/2023 11:47 AM CDT) CULTURE RESULT(A) 12/17/2023 2:44 PM CDT [facility] CULTURE 1+ Acinetobacter species 12/17/2023 2:44 PM CDT [facility] Other (Left Leg) Client Collect [...] S Doctor Unknown MICROBIOLOGY Performing Organization Address City/State/[facility] Co de Phone Number [facility] [address] [place] [address], * US VENOUS INSUFFICIENCY LOWER EXTREMITY BILATERAL [...] US VENOUS INSUFFICIENCY LOWER EXTREMITY BILATERAL LOCATION: [facility] DATE: 12/05/2023 INDICATION: Lower extremity [...] when greater than 600 ms flow reversal. Intelligence Engineer vein reflux reported as greater than 350 [...] US VENOUS INSUFFICIENCY LOWER EXTREMITY BILATERAL LOCATION: [facility] DATE: 12/05/2023 INDICATION: [...] reported when greater than 600ms flow reversal. Intelligence Engineer vein reflux reported as greater than 350 [...] VASCULAR ULTRASOUND REPORT RODERICK HEATON Accession#: ?? [id number] : ?1940 ??Study Date: ?? 11/23/2023 7:17:22 AM Age: ?83 years ?? Tech: ? KBN/CRK Gender: F ?Referring MD: CHARLOTTE SPRINGER Site: [facility] Study performed: ?Lower extremity resting MINOR, (bilateral). [...] ? Index +-----+ +--------+ +-----+ 1.24 ?241 ?PRODUCT BLENDING SUPERVISOR ?107 ? 0.55 +-----+ +--------+ +-----+ 1.23 ?238 ?DPA ?147 ? 0.76 +-----+ +--------+ +-----+ 0.63 ?122 ? Digit 1 ?45 ? 0.23 +-----+ +--------+ +-----+ Wang Dela Cruz MD. Electronically signed on 11/23/2023 12:17:56 PM This study was performed and interpreted by a service accredited by the Intersocietal Accreditation Commission (IAC/Vascular), www.intersocietal.org/vascular Report generated by [employer]. ??Final ?? Procedure Note Wang Dela Cruz MD - 11/23/2023 VASCULAR ULTRASOUND REPORT RODERICK HEATON : 1940 Study Date: 11/23/2023 7:17:22 AM Age: 83 years Tech: ARISTIDES/JOHNNY Gender: F Referring MD: CHARLOTTE SPRINGER Site: [facility] Study performed: Lower extremity resting [...] 194 Index +-----+ +--------+ +-----+ 1.24 241 PRODUCT BLENDING SUPERVISOR 107 0.55 +-----+ +--------+ +-----+ 1.23 238 DPA 147 0.76 +-----+ +--------+ +-----+ 0.63 122 Digit 1 45 0.23 +-----+ +--------+ +-----+ Wang Dela Cruz MD. Electronically signed on 11/23/2023 12:17:56 PM This study was performed and interpreted by a service accredited by theIntersocietal Accreditation Commission (IAC/Vascular),www.intersocietal.org/vascular Report generated by [employer]. Final Charlotte Springer MD US * US ARTERIAL LOWER EXTREMITY BILATERAL (11/23/2023 8:37 AM CDT) Anatomical Region Laterality Modality LEGS, LEG L, LEG R Ultrasound 11/23/2023 7:26 AM CDT Narrative 11/23/2023 12:22 PM CDT VASCULAR ULTRASOUND REPORT RODERICK HEATON Accession#: ?? [id number] : ?1940 ??Study Date: ?? 11/23/2023 7:26:56 AM Age: ?83 years ?? Tech: ? KBN/CRK Gender: F ?Referring MD: CHARLOTTE PSRINGER Site: [facility] Study performed: ?Lower extremity [...] DST ? 104 ? +--------+ + +-----+ FOOTWEAR SALES REPRESENTATIVE DST ? 111 ? +--------+ + +-----+ PFA ? 88 ? +--------+ + +-----+ SFA PRX ? 111 ? +--------+ + +-----+ SFA MID ? 66 ? +--------+ + +-----+ SFA DST ? 415 ? 64 ? 6.5 ?? +--------+ + +-----+ COLLIN PRX ? 101 ? +--------+ + +-----+ COLLIN DST ? 41 ? +--------+ + +-----+ PRODUCT BLENDING SUPERVISOR DST ? 80 ? +--------+ + +-----+ KAREN DST ? 38 ? +--------+ + +-----+ LAXMI DST -179 retro ? +--------+ + +-----+ DPA ?-34 retro ? +--------+ + +-----+ +--------+ + +-----+ LEFT ? Velocity cm/s PRE ? Ratio ? Velocity cm/s ? Phasicity ? +--------+ + +-----+ EIA DST ? 100 ? +--------+ + +-----+ FOOTWEAR SALES REPRESENTATIVE DST ? 98 ? +--------+ + +-----+ PFA ? 73 ? +--------+ + +-----+ SFA PRX ? 100 ? +--------+ + +-----+ SFA MID ? 52 ? +--------+ + +-----+ SFA DST ? 44 ? +--------+ + +-----+ COLLIN PRX ? 674 ? 55 ? 12.3 +--------+ + +-----+ COLLIN DST ? 27 ? +--------+ + +-----+ PRODUCT BLENDING SUPERVISOR DST ? 11 ? +--------+ + +-----+ [...] Accreditation Commission (IAC/Vascular), www.intersocietal.org/vascular Report generated by [employer]. ??Final ?? Procedure Note Wang Dela Cruz MD - 11/23/2023 VASCULAR ULTRASOUND REPORT RODERICK HEATON : 1940 Study Date: 11/23/2023 7:26:56 AM Age: 83 years Tech: ARISTIDES/JOHNNY Gender: F Referring MD: CHARLOTTE SPRINGER Site: [facility] Study performed: Lower extremity [...] +-----+ EIA DST 104 +--------+ + +-----+ FOOTWEAR SALES REPRESENTATIVE DST 111 +--------+ + +-----+ PFA 88 +--------+ + +-----+ SFA PRX 111 +--------+ + +-----+ SFA MID 66 +--------+ + +-----+ SFA DST 415 64 6.5 +--------+ + +-----+ COLLIN PRX 101 +--------+ + +-----+ COLLIN DST 41 +--------+ + +-----+ PRODUCT BLENDING SUPERVISOR DST 80 +--------+ + +-----+ KAREN DST 38 +--------+ + +-----+ LAXMI DST -179 retro +--------+ + +-----+ DPA -34 retro +--------+ + +-----+ +--------+ + +-----+ LEFT Velocity cm/s PRE Ratio Velocity cm/s Phasicity +--------+ + +-----+ EIA DST 100 +--------+ + +-----+ FOOTWEAR SALES REPRESENTATIVE DST 98 +--------+ + +-----+ PFA 73 +--------+ + +-----+ SFA PRX 100 +--------+ + +-----+ SFA MID 52 +--------+ + +-----+ SFA DST 44 +--------+ + +-----+ COLLIN PRX 674 55 12.3 +--------+ + +-----+ COLLIN DST 27 +--------+ + +-----+ PRODUCT BLENDING SUPERVISOR DST 11 +--------+ + +-----+ LAXMI DST [...] theIntersocietal Accreditation Commission (IAC/Vascular),www.intersocietal.org/vascular Report generated by [employer]. Final Charlotte Springer MD US * (ABNORMAL) XR DXA BONE DENSITY 2 SITES AXIAL (07/02/2019 11:48 AM SCALE TECHNICIAN) Anatomical Region Laterality Modality Spine, HIPS, HIPL, HIPR Other Narrative 07/06/2019 11:01 AM SCALE TECHNICIAN Please see scanned document for results of this study. Rakel Connor DO DEXA from Last 3 Months or Most Recently Relevant to Health Maintenance Advance Directives Documents on File Type Date Recorded Patient Hr Business Partner Consultant Expl anation Healthcare Directive 07/19/2016 2:58 PM [...] 8:45 AM 09/01/2016 4:04 PM Care Teams Floorperson Relationship Specialty Start Date End Date Maritza Rendon DO [address] [place] [address] PCP - General Family Practice 12/30/22 Kd Restrepo MD Endocrinology 11/24/11 Cody Veliz MD Rheumatology 11/24/11
[2024-01-03 14:55] LABS: Free T4 Free Thyroxine* 1.34 ng/dL (0.70-1.85)
== END 2024-01-03 13:52 | disposition home or self-care (01) ==
LOC: NPINS 13:51
PROVIDERS: PCP Physician Assistant Medical; Visit Provider Internal Medicine Endocrinology, Diabetes & Metabolism
DX: E03.9 Hypothyroidism, unspecified (principal)
CPT/HCPCS: 84439; 84443

== ENCOUNTER 2024-01-06 09:58 | Outpatient (CLI) | payer OTHER, SELFPAY ==
--- OUTSIDE RECORDS SUMMARY | 2024-01-06 10:07 | XMS_ITS | Clinical Summary ---
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 [...] Date Anticoagulation monitoring, INR range 2-3 [Z79.01]; [place] Target 2.5-3.0 12/06/2016 1 Pessary maintenance 02/25/2016 09/28/19 20 Anticoagulation monitoring, goal range 2.0-2.6 09/19/2013 01/09/2018 Abnormal stress test 11/17/2010 011 Routine general medical exam ination at a health care facility 07/12/2009 09/28/2019 Overview: Normal CT angiogram 11/2010 Hip pain 05/06/2008 07/09/2009 Onychomycosis 05/06/2008 08/27/2008 HX OF VENOUS THROMBOSIS AND EMBOLISM 11/09/2006 12/06/2012 Bilateral pulmonary embolism 10/11/2006 11/18/2017 AFTERCARE, LONG-TERM USE, SD DICATIONS NEC-PLAQUENIL 10/22/2003 Encounters Date Type Department Care Team Description 12/30/2023 Transcribe Orders [facility] [address] [place] [address] Charlotte Springer MD 12/12/2023 Lab Requisition [facility] [phone] Unknown, Doctor 12/09/2023 Telephone [facility] [address] [place] [address] Charlotte Springer MD Care Coordination 12/05/2023 11:00 AM CDT Office Visit [facility] [address] [place] [address] Charlotte Springer MD Follow Up (LLE wound follow up ) 12/05/2023 8:56 AM CDT - 12/05/2023 11:59 PM CDT Hospital Encounter [facility] [address] [place] [address] Charlotte Springer MD Venous insufficiency; Venous stasis ulcer of ankle, left (HC) 12/05/2023 Travel 11/23/2023 9:30 AM CDT Office Visit [facility] [address] [place] [address] Charlotte Springer MD Ankle Pain/problem (L medial malleolar ulcer) 11/23/2023 6:47 AM CDT - 11/23/2023 11:59 PM CDT Hospital Encounter [facility] [address] [place] [address] Charlotte Springer MD PAD (peripheral artery disease) (HC) 11/22/2023 Travel from Last 3 Months Immunizations Name Administration Dates Next Due AMB INFLUENZA IIV3 (AGE 65+ YRS) PF (Flu Clinic Only) 03/23/2017 AMB Influenza, IIV3 (Age >=3 years) Preserve Free (Flu Clinic Only) 04/08/2009 AMB Influenza, IIV3 (Age >=3 years)(Flu Clinic Only) 04/06/2013,04/16/2011,04/24/2008 COVID-19 vaccine (CosmosID 30mcg/0.3mL) PF, MDV 09/02/2020,08/12/2020 Influenza A (H1N1), [...] Description 02/06/2024 10:30 AM CDT Office Visit [facility] [address] [place] [address] Charlotte Springer MD [address] [place] [address] 02/16/2024 7:00 AM CDT Appointment [facility] [address] [place] [address] 02/16/2024 8:00 AM CDT Procedure Only [facility] [address] [place] [address] Charlotte Springer MD [address] [place], [place] [id number] 02/17/2024 11:30 AM CDT Appointment [facility] [address] [place] [address] 02/28/2024 10:00 AM CDT Office Visit [facility] [address] [place] [address] [place] [address] [place] [address] Health Maintenance Due Date Last Done Comments [...] 01/13/2016, 12/18/2010 Medical Devices Implanted Type Area Domestic Violence Advocate Device Identifier Shelf Expiration Date Model / Serial / Lot Lead Kit 4.32mm Spacing 28cm Length Interstim - [id number] Implanted:Qty: 1 on 04/01/2020 by Charlotte Smith MD at [facility] N/A: Sacrum [employer] Pain Therapy 09/30/2021 [id number] / / [id number] Stimulator 7.7mm 14cc Interstim Ii - [id number] Implanted:Qty: 1 on 04/01/2020 by Charlotte Smith MD at [facility] N/A: Sacrum [employer] Pain Therapy 03/31/2021 [id number] / [id number] / Description:PIN [id number] Procedures Procedure Name Priority Date/Time Associated Diagnosis [...] 2 SITES AXIAL Routine 07/02/2019 11:48 AM CAE ENGINEER Osteopenia of multiple sites from Last 3 Months or Most Recently Relevant to Health Maintenance Results * (ABNORMAL) REFERRAL ID/SUSC,NONURINE (12/08/2023 11:47 AM CDT) CULTURE RESULT(A) 12/17/2023 2:44 PM CDT [facility] LAB[facility] CULTURE 1+ Acinetobacter species 12/17/2023 2:44 PM CDT [facility] N[facility]AL LABOR[facility] Other (Left Leg) Client Collect / Unknown 12/08/2023 11:47 AM CDT 12/12/2023 10:11 PM CDT Narrative Organism Antibiotic Method Susceptibility Acinetobacter species TRIMETHOPRIM/SULF S Acinetobacter species GENTAMICIN S Acinetobacter species CEFTAZIDIME R Acinetobacter species LEVOFLOXACIN S Acinetobacter species CIPROFLOXACIN I Acinetobacter species PIPERACILLIN/TAZO I Acinetobacter species AMPICILLIN/SULBACTAM S Acinetobacter species TOBRAMYCIN S Acinetobacter species MEROPENEM S Doctor Unknown MICROBIOLOGY [facility] [address] [address], * US VENOUS INSUFFICIENCY LOWER EXTREMITY BILATERAL [...] VENOUS INSUFFICIENCY LOWER EXTREMITY BILATERAL LOCATION: [facility] DATE: 12/05/2023 INDICATION: Lower [...] when greater than 600 ms flow reversal. Snow Blower vein reflux reported as greater than 350 [...] VENOUS INSUFFICIENCY LOWER EXTREMITY BILATERAL LOCATION: [facility] DATE: 12/05/2023 INDICATION: Lower [...] reported when greater than 600ms flow reversal. Snow Blower vein reflux reported as greater than 350 [...] the leftlower extremity wound. Charlotte Springer MD * US ANKLE BRACHIAL INDEX BILATERAL (11/23/2023 8:37 AM CDT) Anatomical Region Laterality Modality ANKLES, ANKLE L, ANKLE R Ultraso und 11/23/2023 7:17 AM CDT Narrative 11/23/2023 12:17 PM CDT VASCULAR ULTRASOUND REPORT RODERICK HEATON Accession#: ?? [id number] : ?1940 ??Study Date: ?? 11/23/2023 7:17:22 AM Age: ?83 years ?? Tech: ? KBN/CRK Gender: F ?Referring MD: CHARLOTTE SPRINGER Site: [facility] Study performed: ?Lower extremity resting [...] ? Index +-----+ +--------+ +-----+ 1.24 ?241 ?LAST REMODELER REPAIRER ?107 ? 0.55 +-----+ +--------+ +-----+ 1.23 ?238 ?DPA ?147 ? 0.76 +-----+ +--------+ +-----+ 0.63 ?122 ? Digit 1 ?45 ? 0.23 +-----+ +--------+ +-----+ Wang Dela Cruz MD. Electronically signed on 11/23/2023 12:17:56 PM This study was performed and interpreted by a service accredited by the Intersocietal Accreditation Commission (IAC/Vascular), [email or web address] Report generated by [employer]. ??Final ?? Procedure Note Wang Dela Cruz [...] 194 Index +-----+ +--------+ +-----+ 1.24 241 LAST REMODELER REPAIRER 107 0.55 +-----+ +--------+ +-----+ 1.23 238 DPA 147 0.76 +-----+ +--------+ +-----+ 0.63 122 Digit 1 45 0.23 +-----+ +--------+ +-----+ Wang Dela Cruz MD. Electronically signed on 11/23/2023 12:17:56 PM This study was performed and interpreted by a service accredited by theIntersocietal Accreditation Commission (IAC/Vascular),[email or web address] Report generated by [employer]. Final Charlotte Springer MD US * US ARTERIAL LOWER EXTREMITY BILATERAL (11/23/2023 8:37 AM CDT) Anatomical Region Laterality Modality LEGS, LEG L, LEG R Ultrasound 11/23/2023 7:26 AM CDT Narrative 11/23/2023 12:22 PM CDT VASCULAR ULTRASOUND REPORT RODERICK HEATON Accession#: ?? [id number] : ?1940 ??Study Date: ?? 11/23/2023 7:26:56 AM Age: ?83 years ?? Tech: ? KBN/CRK Gender: F ?Referring MD: CHARLOTTE SPRINGER Site: [facility] Vascular [facility] Study performed: ?Lower extremity duplex US, [...] DST ? 104 ? +--------+ + +-----+ COIL TAPER DST ? 111 ? +--------+ + +-----+ PFA ? 88 ? +--------+ + +-----+ SFA PRX ? 111 ? +--------+ + +-----+ SFA MID ? 66 ? +--------+ + +-----+ SFA DST ? 415 ? 64 ? 6.5 ?? +--------+ + +-----+ COLLIN PRX ? 101 ? +--------+ + +-----+ COLLIN DST ? 41 ? +--------+ + +-----+ LAST REMODELER REPAIRER DST ? 80 ? +--------+ + +-----+ KAREN DST ? 38 ? +--------+ + +-----+ LAXMI DST -179 retro ? +--------+ + +-----+ DPA ?-34 retro ? +--------+ + +-----+ +--------+ + +-----+ LEFT ? Velocity cm/s PRE ? Ratio ? Velocity cm/s ? Phasicity ? +--------+ + +-----+ EIA DST ? 100 ? +--------+ + +-----+ COIL TAPER DST ? 98 ? +--------+ + +-----+ PFA ? 73 ? +--------+ + +-----+ SFA PRX ? 100 ? +--------+ + +-----+ SFA MID ? 52 ? +--------+ + +-----+ SFA DST ? 44 ? +--------+ + +-----+ COLLIN PRX ? 674 ? 55 ? 12.3 +--------+ + +-----+ COLLIN DST ? 27 ? +--------+ + +-----+ LAST REMODELER REPAIRER DST ? 11 ? +--------+ + +-----+ [...] Accreditation Commission (IAC/Vascular), [email or web address] Report generated by [employer]. ??Final ?? Procedure Note Wang Dela Cruz MD - 11/23/2023 VASCULAR ULTRASOUND REPORT RODERICK HEATON : 1940 Study Date: 11/23/2023 7:26:56 AM Age: 83 years Tech: ARISTIDES/JOHNNY Gender: F Referring MD: CHARLOTTE SPRINGER Site: [facility] Vascular [facility] Study performed: Lower extremity duplex US, [...] +-----+ EIA DST 104 +--------+ + +-----+ COIL TAPER DST 111 +--------+ + +-----+ PFA 88 +--------+ + +-----+ SFA PRX 111 +--------+ + +-----+ SFA MID 66 +--------+ + +-----+ SFA DST 415 64 6.5 +--------+ + +-----+ COLLIN PRX 101 +--------+ + +-----+ COLLIN DST 41 +--------+ + +-----+ LAST REMODELER REPAIRER DST 80 +--------+ + +-----+ KAREN DST 38 +--------+ + +-----+ LAXMI DST -179 retro +--------+ + +-----+ DPA -34 retro +--------+ + +-----+ +--------+ + +-----+ LEFT Velocity cm/s PRE Ratio Velocity cm/s Phasicity +--------+ + +-----+ EIA DST 100 +--------+ + +-----+ COIL TAPER DST 98 +--------+ + +-----+ PFA 73 +--------+ + +-----+ SFA PRX 100 +--------+ + +-----+ SFA MID 52 +--------+ + +-----+ SFA DST 44 +--------+ + +-----+ COLLIN PRX 674 55 12.3 +--------+ + +-----+ COLLIN DST 27 +--------+ + +-----+ LAST REMODELER REPAIRER DST 11 +--------+ + +-----+ LAXMI DST [...] theIntersocietal Accreditation Commission (IAC/Vascular),[email or web address] Report generated by [employer]. Final Charlotte Springer MD * (ABNORMAL) XR DXA BONE DENSITY 2 SITES AXIAL (07/02/2019 11:48 AM CAE ENGINEER) Anatomical Region Laterality Modality Spine, HIPS, HIPL, HIPR Other Narrative 07/06/2019 11:01 AM CAE ENGINEER Please see scanned document for results of this study. 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
--- OUTSIDE RECORDS SUMMARY | 2024-01-06 10:07 | XMS_ITS | Continuity of Care Document ---
Author Organization [facility] Address [address] [place] [address] Phone Care Team Providers Care Bid Manager Name Role Phone Usha Dickinson Unavailable [...] on Encounter [facility], [address], [place], [place], [id number], [place] tel:[phone] No Information [facility]ly [facility]. [facility], [address], [place], [place], [id number] , [place]. [phone] Office/Outpat ient Visit,Est, Mod [facility], [address], [place], [place], [address], [place] tel:[phone] [facility] Other forms of scoliosis, thoracolumbar regionL2 wedge compression fracture, initial encounter for closed fractureSpondy lolisthesis, lumbar region 0 [facility]. [facility], [address], [place], [place], [id number] , [place]. tel:[phone] Referring Provider: Rakel Arvizu, [facility] [address] [place], [address]. tel:[phone] Office/Outpat ient Visit,Est, Mod [facility], [address], [facility] [place], [id number], [place] tel:[phone] [facility] L2 wedge compression fracture, initial encounter for closed fractureOther forms of scoliosis, thoracolumbar regionSpondylo listhesis, lumbar region 0 Kwame Kerr. [facility], [address], [place], [place], [id number] , . tel:[phone] Referring Provider: Rakel Arvizu [facility] [address] [place], [address]. tel:[phone] Office/Outpat ient Visit,[facility], [facility], [address], [facility] [place], [id number], [place] tel:[phone] [facility] L2 wedge compression fracture, initial encounter for closed fractureOther forms of scoliosis, thoracolumbar regionSpondylo listhesis, lumbar region 0 Kwame Kerr. [facility], [address], [place], [place], [address] , [place]. tel:[phone] Referring Provider: Rakel Arvizu [facility] [address] [place], [address]. tel:[phone] Family History Family Member Type Diagnosis Age At Onset No Information Payers Payer name Insurance type Covered alliance party ID Authoralethaa tishannon(s) Medicare MB [id number] [facility] [address] [facility] [id number] Social History Type Description Quantity Date Captured [...]
--- OUTSIDE RECORDS SUMMARY | 2024-01-06 10:07 | XMS_ITS | Continuity of Care Document ---
Author Organization [facility] Address [address] [place] [address] Phone Care Team Providers Care Extension Forester Name Role Phone Helder Medina MD Unavailable [...] Antibodies Dna Antibody, Single Strand Dna Antibody, [place] Nuclear Antigen Antibodies Rheumatoid Factor, IGM Rheumatoid Factor, IGG, IGA Advance Directives Directive Yes / No Effective Date File Name No Information Encounters Encounter Description Practice Location Reason(s) For Visit Diagnoses Date Provider Providers Copied on Encounter [facility], [address], [place], [address], [place] tel:[phone] [facility], No Information Apr-- [address] Pendleton[address], [address], [place], [address], [place]. tel:[phone] Referring Provider: Helder Jain, [address], [place], [address]. tel:[phone] Office/Outpa tient Visit, Est [facility], [address], [place], [address], [place] tel:[phone] [facility], Sjogren syndrome w/ inflammatory arthritisPain in left foot Apr- 0 4 Lebedoff Helder. [address], [address], [place], [address], [place]. tel:[phone] Referring Provider: Helder Jain, [address], [place], [address]. tel:[phone] Office/Outpa tient Visit, Est [facility], [address], [place], [address], [place] tel:[phone] [facility], Sjogren syndrome w/ inflammatory arthritisPrim mauri osteoarthriti s, right hand 3 Lebedoff Helder. [address], [address], [place], [address], [place]. tel:[phone] Referring Provider: Helder Jain, [address], [place], [address]. tel:[phone] Office/Outpa tient Visit, Est [facility], [address], [place], [address], [place] tel:[phone] [facility], Sicca syndrome, unspecifiedWe akness November- 0 3 Lebedoff Helder. [address], [place], [address], [place]. tel:[phone] Referring Provider: Helder Jain, [address], [place], [address]. tel:[phone] Office/Outpa tient Visit, Est [facility], [address], [place], [address], [place] tel:[phone] [facility], Sicca syndrome, unspecifiedPa in in left shoulder Apr- 2 Adam Pendleton. [address], [address], [place], [address], [place]. tel:[phone] Referring Provider: Helder Jain, [address], [place], [address]. tel:[phone] Office/Outpa tient Visit, Est [facility], [address], [place], [address], [place] tel:[phone] [facility], Sicca syndrome, unspecifiedDy spnea Oct- 2 Adam Pendleton. [address], [place], [address], [place]. tel:[phone] Referring Provider: Helder Jain, [address], [place], [address]. tel:[phone] Office/Outpa tient Visit, Est [facility], [address], [place], [address], [place] tel:[phone] [facility], Sicca syndrome, unspecifiedOt her terminal manager (current) drug therapyPrimar y OA of right handDyspnea Apr- 1 Adam Pendleton. [address], [place], [address], [place]. tel:[phone] Referring Provider: Helder Jain, [address], [place], [address]. tel:[phone] Office/Outpa tient Visit, New [facility], [address], [place], [address], [place] tel:[phone] [facility], Sicca syndrome, unspecifiedPa in in rt ankleOther penitentiary (current) drug therapy 1 Adam Pendleton. [address], [place], [address], [place]. tel:[phone] Referring Provider: Helder Medina G, [address], [place], [address]. tel:[phone] [facility], [address], [place], [address], [place] tel:[phone] [facility] No Information 1 Mo [place]. [facility] [address] [place] [address] [address], [place], [address], [place]. tel:[phone] Family History Family Member Type Diagnosis Age At Onset No Information Immunizations Vaccine Date Status Comments COVID-19 Moderna administered Source: Ot er Provider COVID-19 Pfizer administered Note: 1 ; Source: Other Provider Payers Payer name Insurance type Covered democrat ID Authoriza tion(s) [employer] Medicare Adv [id number] MB [id number] Social History Type Description Quantity Date Captured [...] Order Fo ot X-ray; Complete (3+ views) (40986), Sent on: Sent History Of Present Illness [...]
--- OUTSIDE RECORDS SUMMARY | 2024-01-06 10:07 | XMS_ITS | Data Portability ---
Author Organization [facility], [facility] Address [address] [place] [address] Care Team Providers Care Shake Maker Name Role Phone [facility] Primary Care Provider Assessment No [...] By Organization Details Last Modified Time 09/14/2021 [id number] Test each progra m for at least 2 weeks, adjusting amplitude as needed. May remain on a program as long as it is effective. Return as needed for reprogramming. [email or web address] Not available 09/14/2021 10:07:26 Patient states t hat Gemtessa samples were very effective, but it is not covered by her insurance. She was also given a rx for Myrbetriq. [email or web address] Not available 09/14/2021 10:08:49 11/12/2021 [id number] Over Active Blad betty (OAB): -Managed with [...] minutes [email or web address] Not available 11/12/2021 11:46:55 04/09/2022 [id number] Test each progra m for at least 2 weeks, adjusting amplitude as needed. May remain on a program as long as it is effective. Return as needed for reprogramming. [email or web address] Not available 04/09/2022 12:34:22 Patient states t hat Gemtesa samples were effective, but the rx was too expensive, so she stopped taking. She would like to try the Gemtesa again, but wonders of it is ok t take every other day, to spread the prescription out, and decrease the expense. I will ask Afsaneh Bui PAC. [email or web address] Not available 04/09/2022 12:37:43 12/06/2022 [id number] Test each progra m for at least 2 weeks, adjusting amplitude as needed. May remain on a program as long as it is effective. Return as needed for reprogramming. [email or web address] Not available 12/06/2022 10:55:41 04/28/2023 [id number] Over Active Blad betty (OAB): -Managed with [...] TUS color -advantus YELLOW yellow Not Available [facility] [address], [place], [address], 09/14/2021 10:41:46 09/15/19 22 09/14/2021 UA DIP CS ADVAN TUS appearance -advantus CLEAR clear Not Available [facility] [address], [place], [address], 09/14/2021 10:41:46 09/15/19 22 09/14/2021 UA DIP CS ADVAN TUS glucose -advantus NEGATI VE mg/dL negati ve Not Available [facility] [address], [place], [address], 09/14/2021 10:41:46 09/15/19 22 09/14/2021 UA DIP CS ADVAN TUS bilirubin -advantus NEGATI VE negati ve Not Available [facility] [address], [place], [address], 09/14/2021 10:41:46 09/15/19 22 09/14/2021 UA DIP CS ADVAN TUS ketones -advantus NEGATI VE mg/dL negati ve Not Available [facility] [address] [facility] [address], [place], [address], 09/14/2021 10:41:46 09/15/19 22 09/14/2021 UA DIP CS ADVAN TUS sp. gravity -advantus 1.010 1.010- 1.025 Not Available [facility] [address] [facility] [address] [facility] [address], [place], [address], 09/14/2021 10:41:46 09/15/19 22 09/14/2021 UA DIP CS ADVAN TUS pH -advantus 6.0 5.0-8. 0 Not Available [facility] [address] [facility] [address] [facility] [address], [place], [address], 09/14/2021 10:41:46 09/15/19 22 09/14/2021 UA DIP CS ADVAN TUS protein -advantus NEGATI VE mg/dL negati ve Not Available [facility] [address] [facility] [address], [place], [address], 09/14/2021 10:41:46 09/15/19 22 09/14/2021 UA DIP CS ADVAN TUS urobilinogen -advantus 0.2 normal Not Available [facility] [address] [place] [address] [address], [place], [address], 09/14/2021 10:41:46 09/15/19 22 09/14/2021 UA DIP CS ADVAN TUS nitrites -advantus NEGATI VE negati ve Not Available [facility] [address] [place] [address] [address], [place], [address], 09/14/2021 10:41:46 09/15/19 22 09/14/2021 UA DIP CS ADVAN TUS blood -advantus SMALL negati ve abnormal Not Available [facility] [address] [place] [address] [address], [place], [address], 09/14/2021 10:41:46 09/15/19 22 09/14/2021 UA DIP CS ADVAN TUS leukocytes -advantus NEGATI VE negati ve Not Available [facility] [address] [place] [address] [address], [place], [address], 09/14/2021 10:41:46 09/15/19 22 09/14/2021 UA DIP CS ADVAN TUS performed by Bibi Ruiz Not Available [facility] [address] [place] [address] [address], [place], [address], 09/14/2021 10:41:46 09/15/19 22 09/14/2021 UA DIP CS ADVAN TUS total urine volume (mL) 20cc /mL Not Available [facility] [address] [place] [address] [address], [place], [address], 09/14/2021 10:41:46 09/15/19 22 09/14/2021 UA MICRO SCOPI C U-WBC 0 - 2 [hpf] 0 - 2 Not Available [facility] [address] [place] [address] [address], [place], [address], 09/14/2021 10:41:47 09/15/19 09/14/2021 UA MICRO SCOPI C U-RBC 0 - 2 [hpf] 0 - 2 Not Available [facility] [address], [place], [address], 09/14/2021 10:41:47 09/15/19 22 09/14/2021 UA MICRO SCOPI C bacteria Small [hpf] negati ve abnormal Not Available [facility] [address], [place], [address], 09/14/2021 10:41:47 09/15/19 22 09/14/2021 UA MICRO SCOPI C squamous epi Small /lpf negati ve,sma ll Not Available [facility] [address], [place], [address], 09/14/2021 10:41:47 Result Notes None recorded. Problems Name Status Onset Date Resolution Date Notes Provider Name and Address Organization Details Recorded Time Chronic cystitis Active 2018 N30.20 : Chronic cystitis Not Available [facility] 0 23:40:26 Overactive urinary bladder Active 2018 N32.81 : Bladder muscle dysfunction - overactive Not Available [facility] 0 23:40:26 Benign neoplastic disease Active 2019 Daphne felix [facility] 0 09:58:09 Tear film insufficiency Active 2019 Daphne felix [facility] 0 09:58:21 Gastroesophageal reflux disease Active 2019 Daphne felix, [facility] 0 09:58:28 Hyperlipidemia Active 2019 Daphne felix, [facility] 0 09:58:36 Heart disease Active 2022 Radhika felix, [facility] 3 11:27:33 Problem Notes None recorded. Procedures Surgical History Date Name Laterality Status Provider Name and Address Organization Details Recorded Time 04/28/20 23 Sacral neuromodulation w/o reprogramming completed ELMA Blanco [address], [place], [address], [facility] 04/28/2023 11:57:28 04/28/20 23 Bladder Scan completed Radhika Mathis null, [facility] 04/28/2023 11:36:21 12/07/19 23 Sacral neuromodulation w/o reprogramming completed Demetri Bosch null, [facility] 12/06/2022 11:08:45 04/09/20 22 Sacral Stimulator Reprogramming completed Demetri Bosch null, [facility] 04/09/2022 12:49:34 09/15/19 22 Bladder Scan completed Merry Ocampo null, [facility] 09/14/2021 10:25:15 09/15/19 22 Sacral neuromodulation w/o reprogramming completed Demetri Bosch null, [facility] 09/14/2021 10:15:12 08/03/19 22 Past Data Reviewed completed Charlotte Smith MD [address], [place], [address], [facility] 08/03/2021 08:29:52 08/03/19 22 Bladder Scan completed Usha Corado null, [facility] 08/03/2021 11:50:03 11/27/19 21 Sacral Stimulator Reprogramming completed Demetri Bosch null, [facility] 11/27/2020 12:44:01 09/17/19 20 Implant neuroelectrodes completed Not Available [facility] 12/13/2019 18:11:39 11/29/19 19 Insert bladder catheter completed Not Available [facility] 12/13/2019 18:11:39 11/14/19 15 Colonoscopy completed Lucinda Nuñez null, [facility] 11/11/2020 11:57:08 11/29/19 09 Total hip arthroplasty completed Not Available [facility] 12/13/2019 18:11:39 11/29/19 00 Unlisted procedure breast completed Not Available [facility] 12/13/2019 18:11:39 Appendectomy add-on completed Not Available [facility] 12/13/2019 18:11:39 Imaging Results None recorded. Procedure Notes None recorded. Medical Equipment None Reported. Allergies Allergen ID Allergen Name Allergen Category Reaction Reaction Severity Criticality Documentation Date Start Date Code Code System Note Provider Name and Address Organization Details Recorded Time 351991 Nitroimid azole (substanc e) medicatio n Not available Not available Not available 12/12/2019 14516 5001 SNOMED Not Available [facility] 0 23:50:45 407036 sulindac medicatio n Not available Not available Not available 12/12/2019 80102 RxNorm Not Available [facility] 0 23:50:45 136396 Medicinal product containin g penicilli n and acting as antibacte rial agent (product) medicatio n itching Not available Not available 12/12/2019 11520 05 SNOMED Not Available [facility] 0 23:50:45 678056 atorvasta tin medicatio n Not available Not available Not available 12/12/2019 18842 RxNorm Not Available [facility] 0 23:50:45 351386 tetracycl ine medicatio n Not available Not available Not available 12/12/2019 57672 RxNorm Not Available [facility] 0 23:50:45 232655 alendrona te sodium medicatio n Not available Not available Not available 12/12/2019 06502 2 RxNorm Not Available [facility] 0 23:50:45 476525 amoxicill in medicatio n Not available Not available Not available 12/12/2019 723 RxNorm Not Available [facility] 0 23:50:45 213507 oxybutyni n chloride Not available dizziness Not available Not available 12/12/2019 42589 RxNorm fatig ue Not Available [facility] 0 23:50:45 429089 aspirin medicatio n Not available Not available Not available 12/12/2019 1191 RxNorm Not Available [facility] 0 23:50:46 684392 losartan Not available Not available Not available Not available 12/12/2019 39757 RxNorm Not Available [facility] 0 23:50:46 409678 estrogens , conjugate d (ALF) medicatio n Not available Not available Not available 12/12/2019 4099 RxNorm Not Available [facility] 0 23:50:46 192801 ciproflox acin medicatio n Not available Not available Not available 12/12/2019 2551 RxNorm Not Available [facility] 0 23:50:46 700260 hydrochlo rothiazid e medicatio n Not available Not available Not available 12/12/2019 5487 RxNorm Not Available [facility] 0 23:50:46 126386 metoprolo l Not available Not available Not available Not available 12/12/2019 6918 RxNorm Not Available [facility] 0 23:50:46 481680 naproxen medicatio n Not available Not available Not available 12/12/2019 7258 RxNorm Not Available [facility] 0 23:50:46 808026 clindamyc in Not available Not available Not available Not available 12/12/2019 2582 RxNorm Not Available [facility] 0 23:50:46 442055 Substance with sulfonami de structure and antibacte rial mechanism of action (substanc e) medicatio n Not available Not available Not available 11/11/2020 86447 8003 SNOMED Lucinda Vossen [facility] 1 11:56:30 642561 Myrbetriq medicatio n swelling Not available Not available 10/05/2021 86486 92 RxNorm RODERICK ALIX [facility] 2 13:18:14 570089 Sambucus Elderberr y Immune medicatio n Not available Not available Not available 04/09/2022 Demetri Bosch [facility] 2 12:14:11 Medications Name Sig Start [...] Updated DateTime 04/09/2022 154.94 cm 27.8 kg/m2 71534.08 g Demetri Bosch [facility] 04/09/2022 12:13:52 Date Recorded Body height Body mass index (BMI) Body weight Provider Name and Address Organization Details Last Updated DateTime 12/06/2022 154.94 cm 25.5 kg/m2 32525.97 g Demetri Bosch [facility] 12/06/2022 10:41:56 Date Recorded Body height Body mass index (BMI) Body weight Provider Name and Address Organization Details Last Updated DateTime 04/28/2023 154.94 cm 25.5 kg/m2 20080.97 g Radhika Mathis [facility] 04/28/2023 11:25:35 Date Recorded Body height Body mass index (BMI) Body weight Provider Name and Address Organization Details Last Updated DateTime 09/14/2021 158.75 cm 26.5 kg/m2 60839.08 g Demetri Bosch [facility] 09/14/2021 09:54:39 Date Recorded Body height Body mass index (BMI) Body weight Provider Name and Address Organization Details Last Updated DateTime 09/14/2021 158.75 cm 26.5 kg/m2 54396.08 zeus Ocampo [facility] 09/14/2021 10:08:57 Date Recorded Body height Body mass index (BMI) Body weight Provider Name and Address Organization Details Last Updated DateTime 11/12/2021 154.94 cm 27.8 kg/m2 63918.08 zeus Ocampo [facility] 11/12/2021 11:32:20 Social History Question Answer Notes LastModified by Organizat ion Details LastModified Time Tobacco Smoking Status Never Smoker Not Available [facility] 12/13/2019 02:00:45 What Is Your Level Of Alcohol Consumption? None Information not available 09/14/2021 What Is Your Level Of Caffeine Consumption? Heavy Information not available 09/14/2021 Are You Currently Employed? No Information not available 09/14/2021 Race White Information n ot available 12/13/2019 Ethnicity Not /Lat vane Information not available 09/14/2021 Preferred Language Polish Information not available 09/14/2021 Recreational Drug Use No Information not available 09/14/2021 Could You Be ? No Information not available 09/14/2021 Marital Status Informati on not available 12/13/2019 What Was The Date Of Your Most Recent Tobacco Screening? 12/06/2022 [email or web address] Information not available 12/06/2022 What Is Your [...] PCV 13 07/04/2017 completed STEPHEN Germain - [facility] 04/28/2023 11:25:40 Past Encounters Encounter ID Performer Location Encounter Start Date Encounter Closed Date Diagnosis/Indication Diagnosis SNOMED-CT Code [id number] Charlotte Smith MD [address] [address] 04/15/2020 10:02:52 04/25/2020 12:54:57 Overactive urinary bladder 534333388 Urge incon tinence of urine [id number] [facility] [address] [address] 05/13/2020 10:14:48 05/13/2020 14:22:18 Overactive urinary bladder 330864054 Urge incon tinence of urine 38581216 History of urinary tract infection [id number] [facility] [address] [address] 11/11/2020 11:46:55 11/11/2020 13:40:18 Overactive urinary bladder 911361886 Urge incon tinence of urine 60107237 [id number] [facility] [address] [address] [place] [address] 11/26/2020 10:15:12 12/02/2020 15:37:48 Overactive urinary bladder 102029506 Nocturia [id number] Charlotte Smith MD [facility] [address] [place] [address] 08/03/2021 11:31:50 08/03/2021 12:09:22 Overactive urinary bladder 979945688 Urge incon tinence of urine 32692635 Nocturia [id number] ELMA Blanco [facility] [address] [place] [address] [place] [address] 09/14/2021 10:06:36 09/14/2021 14:16:12 Overactive urinary bladder 350563920 Urge incon tinence of urine 13422981 Nocturia [id number] Demetri Bosch [facility] [address] [place] [address] [place] [address] 09/14/2021 09:30:06 09/14/2021 14:31:59 Overactive urinary bladder 818734943 [id number] ELMA Blanco [facility] [address] [place] [address] [place] [address] 11/12/2021 11:29:59 11/12/2021 12:37:25 Overactive urinary bladder 551971329 Urge incon tinence of urine 78990526 Nocturia [id number] Demetri Bosch [facility] [address] [place] [address] [place] [address] 04/09/2022 11:43:46 04/09/2022 13:38:20 Overactive urinary bladder 099891110 [id number] Demetri Bosch [facility] [address] [place] [address] [place] [phone] 12/06/2022 10:28:13 12/06/2022 11:24:29 Overactive urinary bladder [id number] ELMA Blanco [facility] [address] [place] [address] [place] [id number] 04/28/2023 11:22:38 04/28/2023 12:04:03 Overactive urinary bladder 244260314 Urge incon tinence of urine 87003840 Nocturia [id number] Health Concerns Section Related Observation LastModified by Organization Detai ls LastModified Time None Recorded Concern Status LastModified by Organization Details LastModified Time None Recorded Advance Directives Directive None Recorded Payers Encounter Date Sequence Insurance Name Policy Number Policy Betancourt Covered Member ID Betancourt Member ID Guarantor Name 09/14/2021 1 [facility] [employer] [facility] Patsy A Wood [id number] Patsy A Wood 09/14/2021 2 [place] [id number] Patsy A Wood [id number] Patsy A Wood 11/12/2021 1 [place] [employer] [facility] Patsy A Wood [id number] Patsy A Wood 11/12/2021 2 [place] [id number] Patsy A Wood [id number] Patsy A Wood 04/09/2022 1 [place] [employer] [facility] Patsy A Wood [id number] Patsy A Wood 04/09/2022 2 [place] [id number] Patsy A Wood [id number] Patsy A Wood 12/06/2022 1 [place] [employer] [facility] Patsy A Wood [id number] Patsy A Wood 12/06/2022 2 [place] [id number] Patsy A Wood [id number] Patsy [employer] Wood 04/28/2023 1 [place] [employer] [facility] Patsy A Wood [id number] Patsy A Wood 04/28/2023 2 [place] [id number] Patsy A Wood [id number] Patsy A Wood Notes Date Note Type [...] to be almost every hour. ELMA Blanco [address] [place] [address],[address], [place], [address], [facility] 09/14/2021 10:49:41 11/12/2021 text/html HPI [...] with sjorgrens. This visit was conducted using [employer] technology. Prior to conducting our health visit, the patient and I discussed the risks, benefits and alternatives to phone visits. The patient elected to proceed with the phone visit. ELMA Blanco [address] [place] [address],[facility] [address], [address], [facility] 11/12/2021 11:50:24 12/06/2022 text/html HPI [...] changed Rate chaanged Resolution changed Demetri felix [facility] 12/06/2022 11:08:58 04/28/2023 text/html [...] to be almost every hour. ELMA Blanco [address] [place] [address],[address], [place], [address], [place] [facility] 04/28/2023 11:58:40 OBGyn Episode No OBEpisode recorded.
== END 2024-01-06 09:59 | disposition home or self-care (01) ==
LOC: WOUND 09:58
PROVIDERS: PCP Physician Assistant Medical; Visit Provider Nurse Practitioner Family
DX: I87.2 Venous insufficiency (chronic) (peripheral) (principal); I73.9 Peripheral vascular disease, unspecified; L97.322 Non-pressure chronic ulcer of left ankle with fat layer exposed; R73.03 Prediabetes; Z79.52 Long term (current) use of systemic steroids
CPT/HCPCS: G0463

== ENCOUNTER 2024-01-13 09:24 | Outpatient (CLI) | payer OTHER, SELFPAY ==
--- OUTSIDE RECORDS SUMMARY | 2024-01-13 09:27 | XMS_ITS | Data Portability ---
Author Organization [facility], [facility] Address [address] [place] Lopez [address] Care Team Providers Care Engineering Geologist Name Role Phone [facility] Primary Care Provider Assessment No assessment recorded. [...] By Organization Details Last Modified Time 09/14/2021 [id number] Test each progra m for at least 2 weeks, adjusting amplitude as needed. May remain on a program as long as it is effective. Return as needed for reprogramming. [email or web address] Not available 09/14/2021 10:07:26 Patient states t hat Gemtessa samples were very effective, but it is not covered by her insurance. She was also given a rx for Myrbetriq. [email or web address] Not available 09/14/2021 10:08:49 11/12/2021 [id number] Over Active Blad betty (OAB): -Managed with [...] minutes [email or web address] Not available 11/12/2021 11:46:55 04/09/2022 [id number] Test each progra m for at least 2 weeks, adjusting amplitude as needed. May remain on a program as long as it is effective. Return as needed for reprogramming. [email or web address] Not available 04/09/2022 12:34:22 Patient states t hat Gemtesa samples were effective, but the rx was too expensive, so she stopped taking. She would like to try the Gemtesa again, but wonders of it is ok t take every other day, to spread the prescription out, and decrease the expense. I will ask Afsaneh Bui PAC. [email or web address] Not available 04/09/2022 12:37:43 12/06/2022 [id number] Test each progra m for at least 2 weeks, adjusting amplitude as needed. May remain on a program as long as it is effective. Return as needed for reprogramming. [email or web address] Not available 12/06/2022 10:55:41 04/28/2023 [id number] Over Active Blad betty (OAB): -Managed with [...] Available [facility] [address] [facility] [address], [place], [address], 09/14/2021 10:41:46 09/15/19 22 09/14/2021 UA DIP CS ADVAN TUS appearance -advantus CLEAR clear Not Available [facility] [address] [facility] [address], [place], [address], 09/14/2021 10:41:46 09/15/19 22 09/14/2021 UA DIP CS ADVAN TUS glucose -advantus NEGATI VE mg/dL negati ve Not Available [facility] [address] [facility] [address], [place], [address], 09/14/2021 10:41:46 09/15/19 22 09/14/2021 UA DIP CS ADVAN TUS bilirubin -advantus NEGATI VE negati ve Not Available [facility] [address] [facility] [address], [place], [address], 09/14/2021 10:41:46 09/15/19 22 09/14/2021 UA DIP CS ADVAN TUS ketones -advantus NEGATI VE mg/dL negati ve Not Available [facility] [address] [facility] [address], [place], [address], 09/14/2021 10:41:46 09/15/19 22 09/14/2021 UA DIP CS ADVAN TUS sp. gravity -advantus 1.010 1.010- 1.025 Not Available [facility] [address] [facility] [address], [place], [address], 09/14/2021 10:41:46 09/15/19 22 09/14/2021 UA DIP CS ADVAN TUS pH -advantus 6.0 5.0-8. 0 Not Available [facility] [address] [facility] [address], [place], [address], 09/14/2021 10:41:46 09/15/19 22 09/14/2021 UA DIP CS ADVAN TUS protein -advantus NEGATI VE mg/dL negati ve Not Available [facility] [address] [facility] [address], [place], [address], 09/14/2021 10:41:46 09/15/19 22 09/14/2021 UA DIP CS ADVAN TUS urobilinogen -advantus 0.2 normal Not Available [facility] [address] [place] [address] [address], [place], [address], 09/14/2021 10:41:46 09/15/19 22 09/14/2021 UA DIP CS ADVAN TUS nitrites -advantus NEGATI VE negati ve Not Available [facility] [address] [place] [address] [address], [place], [address], 09/14/2021 10:41:46 09/15/19 22 09/14/2021 UA DIP CS ADVAN TUS blood -advantus SMALL negati ve abnormal Not Available [facility] [address] [place] [address] [address], [place], [address], 09/14/2021 10:41:46 09/15/19 22 09/14/2021 UA DIP CS ADVAN TUS leukocytes -advantus NEGATI VE negati ve Not Available [facility] [address] [place] [address] [address], [place], [address], 09/14/2021 10:41:46 09/15/19 22 09/14/2021 UA DIP CS ADVAN TUS performed by Bibi Ruiz Not Available [facility] [address] [place] [address] [address], [place], [address], 09/14/2021 10:41:46 09/15/19 22 09/14/2021 UA DIP CS ADVAN TUS total urine volume (mL) 20cc /mL Not Available [facility] [address] [place] [address] [address], [place], [address], 09/14/2021 10:41:46 09/15/19 22 09/14/2021 UA MICRO SCOPI C U-WBC 0 - 2 [hpf] 0 - 2 Not Available [facility] [address] [place] [address] [address], [place], [address], 09/14/2021 10:41:47 09/15/19 09/14/2021 UA MICRO SCOPI C U-RBC 0 - 2 [hpf] 0 - 2 Not Available [facility] [address] [facility] [address], [place], [address], 09/14/2021 10:41:47 09/15/19 22 09/14/2021 UA MICRO SCOPI C bacteria Small [hpf] negati ve abnormal Not Available [facility] [address] [facility], [place], [address], 09/14/2021 10:41:47 09/15/19 22 09/14/2021 UA MICRO SCOPI C squamous epi Small /lpf negati ve,sma ll Not Available [facility] [address] [facility] [address], [place], [address], 09/14/2021 10:41:47 Result Notes None recorded. Problems Name Status Onset Date Resolution Date Notes Provider Name and Address Organization Details Recorded Time Chronic cystitis Active 2018 N30.20 : Chronic cystitis Not Available [facility] 0 23:40:26 Overactive urinary bladder Active 2018 N32.81 : Bladder muscle dysfunction - overactive Not Available [facility] 0 23:40:26 Benign neoplastic disease Active 2019 Daphne fleix [facility] 0 09:58:09 Tear film insufficiency Active 2019 Daphne felix [facility] 0 09:58:21 Gastroesophageal reflux disease Active 2019 Daphne felix, [facility] 0 09:58:28 Hyperlipidemia Active 2019 Daphne felix, [facility] 0 09:58:36 Heart disease Active 2022 Radhika felix, [facility] 3 11:27:33 Problem Notes None recorded. Procedures Surgical History Date Name Laterality Status Provider Name and Address Organization Details Recorded Time 04/28/20 23 Sacral neuromodulation w/o reprogramming completed ELMA Blanco [address] [facility], [place], [address], [facility] 04/28/2023 11:57:28 04/28/20 23 Bladder Scan completed Radhika Mathis null, [facility] 04/28/2023 11:36:21 12/07/19 23 Sacral neuromodulation w/o reprogramming completed Demetri Bosch null, [facility] 12/06/2022 11:08:45 04/09/20 22 Sacral Stimulator Reprogramming completed Demetri Bosch null, [facility] 04/09/2022 12:49:34 09/15/19 22 Bladder Scan completed Merry Ocampo null, [facility] 09/14/2021 10:25:15 09/15/19 22 Sacral neuromodulation w/o reprogramming completed Demetri Bosch null, [facility] 09/14/2021 10:15:12 08/03/19 22 Past Data Reviewed completed Charlotte Smith MD [address] [facility],[address], [place], [address], [facility] 08/03/2021 08:29:52 08/03/19 22 Bladder Scan completed Usha Corado null, [facility] 08/03/2021 11:50:03 11/27/19 21 Sacral Stimulator Reprogramming completed Demetri Bosch null, [facility] 11/27/2020 12:44:01 09/17/19 20 Implant neuroelectrodes completed Not Available [facility] 12/13/2019 18:11:39 11/29/19 19 Insert bladder catheter completed Not Available [facility] 12/13/2019 18:11:39 11/14/19 15 Colonoscopy completed Lucinda Nuñez null, [facility] 11/11/2020 11:57:08 11/29/19 09 Total hip arthroplasty completed Not Available [facility] 12/13/2019 18:11:39 11/29/19 00 Unlisted procedure breast completed Not Available [facility] 12/13/2019 18:11:39 Appendectomy add-on completed Not Available [facility] 12/13/2019 18:11:39 Imaging Results None recorded. Procedure Notes None recorded. Medical Equipment None Reported. Allergies Allergen ID Allergen Name Allergen Category Reaction Reaction Severity Criticality Documentation Date Start Date Code Code System Note Provider Name and Address Organization Details Recorded Time 454523 Nitroimid azole (substanc e) medicatio n Not available Not available Not available 12/12/2019 28597 5001 SNOMED Not Available [facility] 0 23:50:45 825845 sulindac medicatio n Not available Not available Not available 12/12/2019 28593 RxNorm Not Available [facility] 0 23:50:45 485208 Medicinal product containin g penicilli n and acting as antibacte rial agent (product) medicatio n itching Not available Not available 12/12/2019 16376 05 SNOMED Not Available [facility] 0 23:50:45 689378 atorvasta tin medicatio n Not available Not available Not available 12/12/2019 03386 RxNorm Not Available [facility] 0 23:50:45 273244 tetracycl ine medicatio n Not available Not available Not available 12/12/2019 36115 RxNorm Not Available [facility] 0 23:50:45 896484 alendrona te sodium medicatio n Not available Not available Not available 12/12/2019 67462 2 RxNorm Not Available [facility] 0 23:50:45 501329 amoxicill in medicatio n Not available Not available Not available 12/12/2019 723 RxNorm Not Available [facility] 0 23:50:45 153075 oxybutyni n chloride Not available dizziness Not available Not available 12/12/2019 85390 RxNorm fatig ue Not Available [facility] 0 23:50:45 235294 aspirin medicatio n Not available Not available Not available 12/12/2019 1191 RxNorm Not Available [facility] 0 23:50:46 801496 losartan Not available Not available Not available Not available 12/12/2019 34445 RxNorm Not Available [facility] 0 23:50:46 958461 estrogens , conjugate d (INTERMEDIATE) medicatio n Not available Not available Not available 12/12/2019 4099 RxNorm Not Available [facility] 0 23:50:46 204377 ciproflox acin medicatio n Not available Not available Not available 12/12/2019 2551 RxNorm Not Available [facility] 0 23:50:46 910266 hydrochlo rothiazid e medicatio n Not available Not available Not available 12/12/2019 5487 RxNorm Not Available [facility] 0 23:50:46 811646 metoprolo l Not available Not available Not available Not available 12/12/2019 6918 RxNorm Not Available [facility] 0 23:50:46 147100 naproxen medicatio n Not available Not available Not available 12/12/2019 7258 RxNorm Not Available [facility] 0 23:50:46 594541 clindamyc in Not available Not available Not available Not available 12/12/2019 2582 RxNorm Not Available [facility] 0 23:50:46 008720 Substance with sulfonami de structure and antibacte rial mechanism of action (substanc e) medicatio n Not available Not available Not available 11/11/2020 92721 8003 SNOMED Lucinda Vossen [facility] 1 11:56:30 865862 Myrbetriq medicatio n swelling Not available Not available 10/05/2021 17932 92 RxNorm RODERICK ALIX [facility] 2 13:18:14 557453 Sambucus Elderberr y Immune medicatio n Not available Not available Not available 04/09/2022 Demetri Bosch [facility] 2 12:14:11 Medications Name [...] Updated DateTime 04/09/2022 154.94 cm 27.8 kg/m2 05011.08 g Demetri Bosch [facility] 04/09/2022 12:13:52 Date Recorded Body height Body mass index (BMI) Body weight Provider Name and Address Organization Details Last Updated DateTime 12/06/2022 154.94 cm 25.5 kg/m2 60049.97 g Demetri Bosch [facility] 12/06/2022 10:41:56 Date Recorded Body height Body mass index (BMI) Body weight Provider Name and Address Organization Details Last Updated DateTime 04/28/2023 154.94 cm 25.5 kg/m2 47224.97 g Radhika Mathis [facility] 04/28/2023 11:25:35 Date Recorded Body height Body mass index (BMI) Body weight Provider Name and Address Organization Details Last Updated DateTime 09/14/2021 158.75 cm 26.5 kg/m2 80587.08 g Demetri Bosch [facility] 09/14/2021 09:54:39 Date Recorded Body height Body mass index (BMI) Body weight Provider Name and Address Organization Details Last Updated DateTime 09/14/2021 158.75 cm 26.5 kg/m2 63491.08 zeus Ocampo [facility] 09/14/2021 10:08:57 Date Recorded Body height Body mass index (BMI) Body weight Provider Name and Address Organization Details Last Updated DateTime 11/12/2021 154.94 cm 27.8 kg/m2 80446.08 zeus Ocampo [facility] 11/12/2021 11:32:20 Social History Question Answer Notes LastModified by Organizat ion Details LastModified Time Tobacco Smoking Status Never Smoker Not Available [facility] 12/13/2019 02:00:45 What Is Your Level Of Alcohol Consumption? None Information not available 09/14/2021 What Is Your Level Of Caffeine Consumption? Heavy Information not available 09/14/2021 Are You Currently Employed? No Information not available 09/14/2021 Race White Information n ot available 12/13/2019 Ethnicity Not /Lat vane Information not available 09/14/2021 Preferred Language Congolese Information not available 09/14/2021 Recreational Drug Use No Information not available 09/14/2021 Could You Be ? No Information not available 09/14/2021 Marital Status Informati on not available 12/13/2019 What Was The Date Of Your Most Recent Tobacco Screening? 12/06/2022 [email or web address] Information not available 12/06/2022 What Is Your [...] High Blood Pressure Y Kidney Stones N Depression N Sexually Transmitted Infection N Cancer N Bleeding Disorder Y Lung Disease N GERD/Acid Reflux Y High Cholesterol N Diabetes N Heart Disease Y Gynecological HistoryNo gynecological history recorded. Obstetrics History GPAL:G 0 P 0 0 0 0 Immunizations Vaccine Type Date Status Provider Name and Address Organization Details Recorded Time Pneumococcal conjugate PCV 13 07/04/2017 completed STEPHEN Germain - [facility] 04/28/2023 11:25:40 Past Encounters Encounter ID Performer Location Encounter Start Date Encounter Closed Date Diagnosis/Indication Diagnosis SNOMED-CT Code [id number] Charlotte Smith MD [address] [address] 04/15/2020 10:02:52 04/25/2020 12:54:57 Overactive urinary bladder 797298760 Urge incon tinence of urine [id number] [facility] [address] [address] 05/13/2020 10:14:48 05/13/2020 14:22:18 Overactive urinary bladder 453682428 Urge incon tinence of urine 19619669 History of urinary tract infection [id number] [facility] [address] [address] 11/11/2020 11:46:55 11/11/2020 13:40:18 Overactive urinary bladder 554894052 Urge incon tinence of urine 27606771 [id number] [facility] [address] [facility] [address] [place] [address] 11/26/2020 10:15:12 12/02/2020 15:37:48 Overactive urinary bladder 378982106 Nocturia [id number] Charlotte Smith MD [facility] [address] [place] [address] 08/03/2021 11:31:50 08/03/2021 12:09:22 Overactive urinary bladder 923543083 Urge incon tinence of urine 06303333 Nocturia 157741329 [id number] ELMA Blanco [facility] [address] [place] [address] [place] [phone] 09/14/2021 10:06:36 09/14/2021 14:16:12 Overactive urinary bladder 757795143 Urge incon tinence of urine 24919119 Nocturia 269933232 [id number] Demetri Bosch [facility] [address] [place] [address] [place] [phone] 09/14/2021 09:30:06 09/14/2021 14:31:59 Overactive urinary bladder 038737789 [id number] ELMA Blanco [facility] [address] [place] [address] [place] [phone] 11/12/2021 11:29:59 11/12/2021 12:37:25 Overactive urinary bladder 252843941 Urge incon tinence of urine 31926858 Nocturia 141254394 [id number] Demetri Bosch [facility] [address] [place] [address] [place] [phone] 04/09/2022 11:43:46 04/09/2022 13:38:20 Overactive urinary bladder 351069077 [id number] Demetri Bosch [facility] [address] [place] [address] [place] [phone] 12/06/2022 10:28:13 12/06/2022 11:24:29 Overactive urinary bladder 180566669 [id number] ELMA Blanco [facility] [address] [place] [address] [place] [phone] 04/28/2023 11:22:38 04/28/2023 12:04:03 Overactive urinary bladder 686475047 Urge incon tinence of urine 81194668 Nocturia [id number] Health Concerns Section Related Observation LastModified by Organization Detai ls LastModified Time None Recorded Concern Status LastModified by Organization Details LastModified Time None Recorded Advance Directives Directive None Recorded Payers Encounter Date Sequence Insurance Name Policy Number Policy Betancourt Covered Member ID Betancourt Member ID Guarantor Name 09/14/2021 1 [facility] [employer] [facility] [employer] [id number] [employer] 09/14/2021 2 [place] [id number] Patsy [employer] Wood [id number] [employer] 11/12/2021 1 [place] [employer] [facility] Patsy [employer] Wood [id number] [employer] 11/12/2021 2 [place] [id number] P[employer]y [employer] [id number] [employer] 04/09/2022 1 [place] [employer] [facility] P[employer] [id number] [employer] 04/09/2022 2 [place] [id number] P[employer]y [employer] [id number] [employer] 12/06/2022 1 [place] [employer] [facility] P[employer]y [employer] [id number] [employer] 12/06/2022 2 [place] [id number] [employer] [id number] [employer] 04/28/2023 1 [place] [employer] [facility] P[employer] [id number] [employer] 04/28/2023 2 [place] [id number] [employer]y [employer] [id number] [employer] Notes Date Note Type [...] to be almost every hour. ELMA Blanco [address] [place] [address],[address], [place], [address], [facility] 09/14/2021 10:49:41 11/12/2021 text/html HPI [...] with sjorgrens. This visit was conducted using [employer] technology. Prior to conducting our health visit, the patient and I discussed the risks, benefits and alternatives to phone visits. The patient elected to proceed with the phone visit. ELMA Blanco [address] [place] [address],[facility] [address], [address], [facility] 11/12/2021 11:50:24 12/06/2022 text/html HPI [...] changed Rate chaanged Resolution changed Demetri felix [facility] 12/06/2022 11:08:58 04/28/2023 text/html [...] to be almost every hour. ELMA Blanco [address] [place] [address],[address], [place], [address], [place] - [facility] 04/28/2023 11:58:40 OBGyn Episode No OBEpisode recorded.
--- OUTSIDE RECORDS SUMMARY | 2024-01-13 09:27 | XMS_ITS | Continuity of Care Document ---
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 [facility], [address], [place], [place], [id number] , [place]. [phone] Office/Outpat ient Visit,Est, Mod [facility], [address], [place], [place], [id number], [place] tel:[phone] [facility] Other forms of scoliosis, thoracolumbar regionL2 wedge compression fracture, initial encounter for closed fractureSpondy lolisthesis, lumbar region 0 [facility]. [facility], [address], [place], [place], [id number] , [place]. tel:[phone] Referring Provider: Rakel Arvizu, [employer] [facility] [address] [place], [address]. tel:[phone] Office/Outpat ient Visit,Est, Mod [facility], [address], [facility] [place], [id number], [place] tel:[phone] [facility] L2 wedge compression fracture, initial encounter for closed fractureOther forms of scoliosis, thoracolumbar regionSpondylo listhesis, lumbar region [address] [facility], [address], [place], [place], [id number] , . tel:[phone] Referring Provider: Rakel Arvizu [employer] [address] [place], [address]. tel:[phone] Office/Outpat ient Visit,[facility], [facility], [address], [facility] [place], [id number], [place] tel:[phone] [facility] [place] L2 wedge compression fracture, initial encounter for closed fractureOther forms of scoliosis, thoracolumbar regionSpondylo listhesis, lumbar region 0 Kwame Kerr. [facility], [address], [place], [place], [id number] , [place]. tel:[phone] Referring Provider: Rakel Arvizu [employer] [address] [place], [address]. tel:[phone] Family History Family Member Type Diagnosis Age At Onset No Information Payers Payer name Insurance type Covered libertarian ID Authoralethaa tishannon(s) Medicare MB [id number] [facility] [id number] [facility] [id number] Social History Type Description Quantity Date Captured [...]
--- OUTSIDE RECORDS SUMMARY | 2024-01-13 09:27 | XMS_ITS | Clinical Summary ---
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 09/27 Prediabetes [...] Date Anticoagulation monitoring, INR range 2-3 [Z79.01]; [place] Target 2.5-3.0 12/06/2016 1 Pessary maintenance 02/25/2016 09/28/19 20 Anticoagulation monitoring, goal range 2.0-2.6 09/19/2013 01/09/2018 Abnormal stress test 11/17/2010 011 Routine general medical exam ination at a health care facility 07/12/2009 09/28/2019 Overview: Normal CT angiogram 11/2010 Hip pain 05/06/2008 07/09/2009 Onychomycosis 05/06/2008 08/27/2008 HX OF VENOUS THROMBOSIS AND EMBOLISM 11/09/2006 12/06/2012 Bilateral pulmonary embolism 10/11/2006 11/18/2017 AFTERCARE, LONG-TERM USE, [place] DICATIONS NEC-PLAQUENIL 10/22/2003 Encounters Date Type Department Care Team Description 01/06/2024 Telephone [facility] [address] [place] [address] Charlotte Springer MD 12/30/2023 Transcribe Orders [facility] [address] [place] [address] Charlotte Springer MD 12/12/2023 Lab Requisition [facility] [phone] Unknown, Doctor 12/09/2023 Telephone [facility] [address] [place], [place] [id number] Charlotte Springer MD Care Coordination 12/05/2023 11:00 AM CDT Office Visit [facility] [address] [place] [address] Charlotte Springer MD Follow Up (LLE wound follow up ) 12/05/2023 8:56 AM CDT - 12/05/2023 11:59 PM CDT Hospital Encounter [facility] [address] [place] [address] Charlotte Springer MD Venous insufficiency; Venous stasis ulcer of ankle, left (HC) 12/05/2023 Travel 11/23/2023 9:30 AM CDT Office Visit [facility] [address] [place] [address] Charlotte Springer MD Ankle Pain/problem (L medial malleolar ulcer) 11/23/2023 6:47 AM CDT - 11/23/2023 11:59 PM CDT Hospital Encounter [facility] [address] [place] [address] Charlotte Springer MD PAD (peripheral artery disease) (HC) 11/22/2023 Travel from Last 3 Months Immunizations Name Administration Dates Next Due AMB INFLUENZA IIV3 (AGE 65+ YRS) PF (Flu Clinic Only) 03/23/2017 AMB Influenza, IIV3 (Age >=3 years) Preserve Free (Flu Clinic Only) 04/08/2009 AMB Influenza, IIV3 (Age >=3 years)(Flu Clinic Only) 04/06/2013,04/16/2011,04/24/2008 COVID-19 vaccine ([employer] 30mcg/0.3mL) PFMDV 09/02/2020,08/12/2020 Influenza A (H1N1), Inactiva clint (Age [...] Description 02/06/2024 10:30 AM CDT Office Visit [facility] [address] [place] [phone] Charlotte Springer MD [address] [place] [address] 02/16/2024 7:00 AM CDT Appointment [facility] [address] [place] [address] 02/16/2024 8:00 AM CDT Procedure Only [facility] [address] [place] [phone] Charlotte Springer MD [address] [place], [place] [phone] 02/17/2024 11:30 AM CDT Appointment [facility] [address] [place] [address] 02/28/2024 10:00 AM CDT Office Visit [facility] [address] [place], [place] [phone] [place] [address] [place], [place] [phone] Health Maintenance Due Date Last Done Comments [...] 01/13/2016, 12/18/2010 Medical Devices Implanted Type Area Bug Trimmer Device Identifier Shelf Expiration Date Model / Serial / Lot Lead Kit 4.32mm Spacing 28cm Length Interstim - [id number] Implanted:Qty: 1 on 04/01/2020 by Charlotte Smith MD at [facility] N/A: Sacrum [employer] Pain Therapy 09/30/2021 [id number] / / [id number] Stimulator 7.7mm 14cc Interstim Ii - [id number] Implanted:Qty: 1 on 04/01/2020 by Charlotte Smith MD at [facility] N/A: Sacrum [employer] Pain Therapy 03/31/2021 [id number] / [id number] / Description:[id number] Procedures Procedure Name Priority Date/Time Associated Diagnosis [...] 2 SITES AXIAL Routine 07/02/2019 11:48 AM YARN SIZER Osteopenia of multiple sites from Last 3 Months or Most Recently Relevant to Health Maintenance Results * (ABNORMAL) REFERRAL ID/SUSC,NONURINE (12/08/2023 11:47 AM CDT) CULTURE RESULT(A) 12/17/2023 2:44 PM CDT [facility] CULTURE 1+ Acinetobacter species 12/17/2023 2:44 PM CDT [facility] Other (Left Leg) Client Collect / Unknown 12/08/2023 11:47 AM CDT 12/12/2023 10:11 PM CDT Narrative Organism Antibiotic Method Susceptibility Acinetobacter species TRIMETHOPRIM/SULF S Acinetobacter species GENTAMICIN S Acinetobacter species CEFTAZIDIME R Acinetobacter species LEVOFLOXACIN S Acinetobacter species CIPROFLOXACIN I Acinetobacter species PIPERACILLIN/TAZO I Acinetobacter species AMPICILLIN/SULBACTAM S Acinetobacter species TOBRAMYCIN S Acinetobacter species MEROPENEM S Doctor Unknown [facility] [address] [place] [address], [place] * US VENOUS INSUFFICIENCY LOWER EXTREMITY BILATERAL [...] INSUFFICIENCY LOWER EXTREMITY BILATERAL LOCATION: [facility] DATE: 12/05/2023 INDICATION: Lower extremity [...] when greater than 600 ms flow reversal. Parachute Repairer vein reflux reported as greater than 350 [...] INSUFFICIENCY LOWER EXTREMITY BILATERAL LOCATION: [facility] DATE: 12/05/2023 INDICATION: Lower extremity [...] reported when greater than 600ms flow reversal. Parachute Repairer vein reflux reported as greater than 350 [...] VASCULAR ULTRASOUND REPORT RODERICK HEATON Accession#: ?? [id number] : ?1940 ??Study Date: ?? 11/23/2023 7:17:22 AM Age: ?83 years ?? Tech: ? KBN/CRK Gender: F ?Referring MD: CHARLOTTE SPRINGER Site: [facility] Study performed: ?Lower extremity resting MINOR, (bilateral). Indication for study: Non-healing wound in LE Study Quality: ?Excellent TECHNIQUE: Lower/upper extremity arteries were examined per exam protocol by duplex ultrasound, color-flow and spectral Doppler. Peak systolic velocities (PSV), Doppler waveform quality, velocity ratios and vessel size in cm, were documented at protocol specific sites. Physiologic data including segmental pressures, ankle/brachial index (IMNOR), digit PPG recordings, laser Doppler flowmetry, transcutaneous [...] ? Index +-----+ +--------+ +-----+ 1.24 ?241 ?NEONATAL NURSE ?107 ? 0.55 +-----+ +--------+ +-----+ 1.23 ?238 ?DPA ?147 ? 0.76 +-----+ +--------+ +-----+ 0.63 ?122 ? Digit 1 ?45 ? 0.23 +-----+ +--------+ +-----+ Wang Dela Cruz MD. Electronically signed on 11/23/2023 12:17:56 PM This study was performed and interpreted by a service accredited by the Intersocietal Accreditation Commission (IAC/Vascular), www.intersocietal.org/vascular Report generated by [employer]. ??Final ?? Procedure Note Wang Dela Cruz MD - 11/23/2023 VASCULAR ULTRASOUND REPORT RODERICK HEATON : 1940 Study Date: 11/23/2023 7:17:22 AM Age: 83 years Tech: ARISTIDES/JOHNNY Gender: F Referring MD: CHARLOTTE SPRINGER Site: [facility] Vascular [facility] Study performed: Lower extremity resting [...] 194 Index +-----+ +--------+ +-----+ 1.24 241 NEONATAL NURSE 107 0.55 +-----+ +--------+ +-----+ 1.23 238 DPA 147 0.76 +-----+ +--------+ +-----+ 0.63 122 Digit 1 45 0.23 +-----+ +--------+ +-----+ Wang Dela Cruz MD. Electronically signed on 11/23/2023 12:17:56 PM This study was performed and interpreted by a service accredited by theIntersocietal Accreditation Commission (IAC/Vascular),www.[email or web address]/vascular Report generated by [employer]. Final Charlotte Springer MD US * US ARTERIAL LOWER EXTREMITY BILATERAL (11/23/2023 8:37 AM CDT) Anatomical Region Laterality Modality LEGS, LEG L, LEG R Ultrasound 11/23/2023 7:26 AM CDT Narrative 11/23/2023 12:22 PM CDT VASCULAR ULTRASOUND REPORT RODERICK EHATON Accession#: ?? [id number] : ?1940 ??Study Date: ?? 11/23/2023 7:26:56 AM Age: ?83 years ?? Tech: ? KBN/CRK Gender: F ?Referring MD: CHARLOTTE SPRINGER Site: [facility] Study performed: ?Lower extremity duplex US, [...] DST ? 104 ? +--------+ + +-----+ IN TUBE CONVERSION TECHNICIAN DST ? 111 ? +--------+ + +-----+ PFA ? 88 ? +--------+ + +-----+ SFA PRX ? 111 ? +--------+ + +-----+ SFA MID ? 66 ? +--------+ + +-----+ SFA DST ? 415 ? 64 ? 6.5 ?? +--------+ + +-----+ COLLIN PRX ? 101 ? +--------+ + +-----+ COLLIN DST ? 41 ? +--------+ + +-----+ NEONATAL NURSE DST ? 80 ? +--------+ + +-----+ KAREN DST ? 38 ? +--------+ + +-----+ LAXMI DST -179 retro ? +--------+ + +-----+ DPA ?-34 retro ? +--------+ + +-----+ +--------+ + +-----+ LEFT ? Velocity cm/s PRE ? Ratio ? Velocity cm/s ? Phasicity ? +--------+ + +-----+ EIA DST ? 100 ? +--------+ + +-----+ IN TUBE CONVERSION TECHNICIAN DST ? 98 ? +--------+ + +-----+ PFA ? 73 ? +--------+ + +-----+ SFA PRX ? 100 ? +--------+ + +-----+ SFA MID ? 52 ? +--------+ + +-----+ SFA DST ? 44 ? +--------+ + +-----+ COLLIN PRX ? 674 ? 55 ? 12.3 +--------+ + +-----+ COLLIN DST ? 27 ? +--------+ + +-----+ NEONATAL NURSE DST ? 11 ? +--------+ + +-----+ [...] Accreditation Commission (IAC/Vascular), www.[email or web address]/vascular Report generated by [employer]. ??Final ?? Procedure Note Wang Dela Cruz MD - 11/23/2023 VASCULAR ULTRASOUND REPORT RODERICK HEATON : 1940 Study Date: 11/23/2023 7:26:56 AM Age: 83 years Tech: ARISTIDES/JOHNNY Gender: F Referring MD: CHARLOTTE SPRINGER Site: [facility] Study performed: Lower extremity duplex US, [...] +-----+ EIA DST 104 +--------+ + +-----+ IN TUBE CONVERSION TECHNICIAN DST 111 +--------+ + +-----+ PFA 88 +--------+ + +-----+ SFA PRX 111 +--------+ + +-----+ SFA MID 66 +--------+ + +-----+ SFA DST 415 64 6.5 +--------+ + +-----+ COLLIN PRX 101 +--------+ + +-----+ COLLIN DST 41 +--------+ + +-----+ NEONATAL NURSE DST 80 +--------+ + +-----+ KAREN DST 38 +--------+ + +-----+ LAXMI DST -179 retro +--------+ + +-----+ DPA -34 retro +--------+ + +-----+ +--------+ + +-----+ LEFT Velocity cm/s PRE Ratio Velocity cm/s Phasicity +--------+ + +-----+ EIA DST 100 +--------+ + +-----+ IN TUBE CONVERSION TECHNICIAN DST 98 +--------+ + +-----+ PFA 73 +--------+ + +-----+ SFA PRX 100 +--------+ + +-----+ SFA MID 52 +--------+ + +-----+ SFA DST 44 +--------+ + +-----+ COLLIN PRX 674 55 12.3 +--------+ + +-----+ COLLIN DST 27 +--------+ + +-----+ NEONATAL NURSE DST 11 +--------+ + +-----+ LAXMI DST [...] theIntersocietal Accreditation Commission (IAC/Vascular),www.[email or web address]/vascular Report generated by [employer]. Final Charlotte Springer MD US * (ABNORMAL) XR DXA BONE DENSITY 2 SITES AXIAL (07/02/2019 11:48 AM YARN SIZER) Anatomical Region Laterality Modality Spine, HIPS, HIPL, HIPR Other Narrative 07/06/2019 11:01 AM YARN SIZER Please see scanned document for results of this study. Rakel Connor DO DEXA from Last 3 Months or Most Recently Relevant to Health Maintenance Advance Directives Documents on File Type Date Recorded Patient Actuarial Consultant Expl anation Healthcare Directive 07/19/2016 2:58 [...] 8:45 AM 09/01/2016 4:04 PM Care Teams Medical Secretary Relationship Specialty Start Date End Date Maritza Rendon DO [address] [place] [address] PCP - General Family Practice 12/30/22 Kd Restrepo MD Endocrinology 11/24/11 Cody Veliz MD Rheumatology 11/24/11
--- OUTSIDE RECORDS SUMMARY | 2024-01-13 09:27 | XMS_ITS | Continuity of Care Document ---
Author Organization [facility] Address [address] [place] [address] Phone Care Team Providers Care Fire Code Inspector Name Role Phone Helder Medina MD Unavailable [...] mg-elderberry flower 115 mg capsule - Active cranberry 500 mg capsule [...] dissolve and/or chew. 1300 MG - Active Probiotic 10 billion cell [...] Antibodies Dna Antibody, Single Strand Dna Antibody, [place] Nuclear Antigen Antibodies Rheumatoid Factor, IGM Rheumatoid Factor, IGG, IGA Advance Directives Directive Yes / No Effective Date File Name No Information Encounters Encounter Description Practice Location Reason(s) For Visit Diagnoses Date Provider Providers Copied on Encounter [facility], [address], [place], [address], [place] tel:[phone] [facility], No Information Apr-- [address] Adam Pendleton. [address], [place], [address], [place]. tel:[phone] Referring Provider: Helder Jain, [address], [place], [address]. tel:[phone] Office/Outpa tient Visit, Est [facility], [address], [place], [address], [place] tel:[phone] [facility], Sjogren syndrome w/ inflammatory arthritisPain in left foot Apr- 0 4 Lebedoff Helder. [address], [address], [place], [address], [place]. tel:[phone] Referring Provider: Helder Jain, [address], [place], [address]. tel:[phone] Office/Outpa tient Visit, Est [facility], [address], [place], [address], [place] tel:[phone] [facility], Sjogren syndrome w/ inflammatory arthritisPrim mauri osteoarthriti s, right hand 3 Lebedoff Helder. [address], [address], [place], [address], [place]. tel:[phone] Referring Provider: Helder Jain, [address], [place], [address]. tel:[phone] Office/Outpa tient Visit, Est [facility], [address], [place], [address], [place] tel:[phone] [facility], Sicca syndrome, unspecifiedWe akness November- 0 3 Lebedoff Helder. [address], [place], [address], [place]. tel:[phone] Referring Provider: Helder Jain, [address], [place], [address]. tel:[phone] Office/Outpa tient Visit, Est [facility], [address], [place], [address], [place] tel:[phone] [facility], Sicca syndrome, unspecifiedPa in in left shoulder Apr- 2 Adam Pendleton. [address], [address], [place], [address], [place]. tel:[phone] Referring Provider: Helder Jain, [address], [place], [address]. tel:[phone] Office/Outpa tient Visit, Est [facility], [address], [place], [address], [place] tel:[phone] [facility], Sicca syndrome, unspecifiedDy spnea Oct- 2 Adam Pendleton. [address], [place], [address], [place]. tel:[phone] Referring Provider: Helder Jain, [address], [place], [address]. tel:[phone] Office/Outpa tient Visit, Est [facility], [address], [place], [address], [place] tel:[phone] [facility], Sicca syndrome, unspecifiedOt her correction (current) drug therapyPrimar y OA of right handDyspnea Apr- 1 Adam Pendleton. [address], [address], [place], [address], [place]. tel:[phone] Referring Provider: Helder Jain, [address], [place], [address]. tel:[phone] Office/Outpa tient Visit, New [facility], [address], [place], [address], [place] tel:[phone] [facility], Sicca syndrome, unspecifiedPa in in rt ankleOther correction (current) drug therapy 1 Adam Pendleton. [address], [address], [place], [address], [place]. tel:[phone] Referring Provider: Helder Medina G, [address], [address]. tel:[phone] [facility], [address], [place], [address], [place] tel:[phone] [facility] No Information 1 Mo Sullivan. [facility] [address] [place] [address] [address], [place], [address], [place]. tel:[phone] Family History Family Member Type Diagnosis Age At Onset No Information Immunizations Vaccine Date Status Comments COVID-19 Moderna administered Source: Ot er Provider COVID-19 Pfizer administered Note: 1 ; Source: Other Provider Payers Payer name Insurance type Covered libertarian ID Authoriza tion(s) [employer] Adv [id number] Social History Type Description Quantity Date Captured [...] Order Fo ot X-ray; Complete (3+ views) (79824), Sent on: Sent History Of Present Illness [...]
== END 2024-01-13 09:25 | disposition home or self-care (01) ==
LOC: WOUND 09:24
PROVIDERS: PCP Physician Assistant Medical; Visit Provider Nurse Practitioner Family
DX: I87.2 Venous insufficiency (chronic) (peripheral) (principal); I73.9 Peripheral vascular disease, unspecified; L97.322 Non-pressure chronic ulcer of left ankle with fat layer exposed; Z79.52 Long term (current) use of systemic steroids
CPT/HCPCS: 97597

== ENCOUNTER 2024-01-18 12:31 | Observation (INO) | payer OTHER, SELFPAY ==
[2024-01-18 13:04] VITALS: BP 171/72; PULSE 76; RESP 16; TEMP 36.6; O2SAT 96; BMI 28.1
--- NOTE | 2024-01-18 13:58 | CRLHL7_ITS ---
For Patients: As a result of the Century Cures Act, medical imaging exams and procedure reports are released immediately into your electronic medical record. You may view this report before your referring provider. If you have questions, please contact your health care provider. INDICATION: Right upper quadrant abdomen pain TECHNIQUE: Ultrasound abdomen limited. Sonographic images of the right upper quadrant were obtained using underwood-scale and color Doppler images. COMPARISON: None FINDINGS: Liver: Normal in size and echotexture. No masses. No intrahepatic biliary dilatation. Gallbladder: No stones or sludge. Normal wall thickness. No pericholecystic fluid. Common bile duct: 5 mm. Pancreas: Partially obscured by bowel gas without discrete lesion. Right kidney: Normal in size. Normal echotexture and cortex. No masses, stones, or hydronephrosis. Right renal cyst measuring 1.5 centimeters. Vasculature: Proximal abdominal aorta and IVC are normal. IMPRESSION: Unremarkable right upper quadrant ultrasound. Dictated by iSva Gonzales MD @ 01/18/2024 3:03:23 PM (Electronically Signed)
--- NOTE | 2024-01-18 13:59 | ED.ABDPAIN ---
HPI - Abdominal Pain General Chief Complaint: Abdominal Pain Stated Complaint: Abdominal pain Time Seen by Provider: 01/18/24 13:08 History of Present Illness HPI narrative: This 83-year-old female comes in reporting right upper quadrant and upper epigastric abdominal pain on and off for the past couple weeks. She states that it seems to be worse at times with food. She does not report any fevers. She did go to clinic earlier today and had labs drawn. Her white count returned at 12. She was sent here for further workup. Related Data Home Medications ?Medication ?Instructions ?Recorded ?Confirmed Lactobacillus acidophilus 1 10 mg PO DAILY 04/15/22 01/18/24 billion cell capsule betamethasone, augmented 0.05 % 1 applic topical DAILY PRN 04/15/22 01/18/24 topical cream multivitamin 1 tab PO DAILY 04/15/22 01/18/24 clobetasol 0.05 % topical ointment 1 g topical 2XW PRN lichen 09/10/22 01/18/24 sclerosis furosemide 20 mg tablet 20 mg PO DAILY PRN edema 09/10/22 01/18/24 gabapentin 6%/ketamine topical .four time daily PRN 01/24/23 01/18/24 8%/liodcaine 2.5% liposomal cream with baclofen 2% vibegron 75 mg tablet (Gemtesa) 75 mg PO DAILY 03/24/23 01/18/24 diltiazem HCl 240 mg 240 mg PO DAILY 06/02/23 01/18/24 capsule,extended release 24 hr levothyroxine 112 mcg tablet 112 mcg PO .COMPLEX 11/03/23 01/18/24 Previous Rx's ?Medication ?Instructions ?Recorded calcium carbonate 600 mg PO DAILY #90 tabs 01/06/22 lorazepam 0.5 mg tablet 0.25 - 0.5 mg (0.5 - 1 x 0.5 mg) 01/06/22 PO DAILY PRN anxiety #5 tabs acetaminophen 500 mg capsule 500 - 1,000 mg (1 - 2 x 500 mg) PO 09/09/22 Q6H PRN pain #100 caps prednisone 10 mg tablet 10 mg PO Q OTHER DAY #45 tabs 03/16/23 triamcinolone acetonide 0.1 % 1 applic topical BID PRN rash #80 05/05/23 topical cream grams fosfomycin tromethamine 3 gram 1 packet PO Q3D PRN bladder 05/09/23 oral packet infections 2 doses #2 ea warfarin 2.5 mg tablet 2.5 mg PO QDAY #90 tabs 08/15/23 omeprazole 40 mg capsule,delayed 40 mg PO QDAY #90 caps 10/11/23 release sennosides 8.6 mg tablet (Senna 8.6 mg PO BID PRN constipation 11/03/23 Lax) #180 tabs denosumab 60 mg/mL subcutaneous 60 mg subcut [id number] #1 mL 12/12/23 syringe (Prolia) pilocarpine HCl 5 mg tablet 5 mg PO TID #270 tabs 01/03/24 Allergies Allergy/AdvReac Type Severity Reaction Status Date / Time sulindac Allergy Severe Difficulty Verified 01/18/24 15:43 Breathing tetracycline Allergy Intermediate Rash Verified 01/18/24 15:43 mirabegron Allergy Mild lost Verified 01/18/24 15:43 control of bladder amoxicillin Allergy Unknown Verified 01/18/24 15:43 aspirin Allergy Unknown Verified 01/18/24 15:43 atorvastatin Allergy Unknown Verified 01/18/24 15:43 cholecalciferol (vitamin D3) Allergy Unknown Verified 01/18/24 15:43 [From Vitamin D3] ciprofloxacin Allergy Unknown Verified 01/18/24 15:43 clindamycin Allergy Unknown Verified 01/18/24 15:43 hydrochlorothiazide Allergy Unknown Verified 01/18/24 15:43 losartan Allergy Unknown Verified 01/18/24 09:28 metoprolol Allergy Unknown Verified 01/18/24 09:28 naproxen Allergy Unknown Verified 01/18/24 09:28 Nitroimidazoles Allergy Unknown Verified 01/18/24 09:28 alendronate sodium Allergy Verified 01/18/24 09:28 estrogens, conjugated Allergy Verified 01/18/24 09:28 oxybutynin Allergy Verified 01/18/24 09:28 Penicillins Allergy Verified 01/18/24 09:28 Sulfa (Sulfonamide Allergy Rash Verified 01/18/24 09:28 Antibiotics) Quinolones AdvReac Intermediate bad Verified 01/18/24 09:28 arthritis flair tolterodine AdvReac Intermediate Headache Verified 01/18/24 09:28 cephalexin AdvReac Unknown Hives Verified 01/18/24 09:28 furosemide AdvReac Unknown Verified 01/18/24 09:28 Review of Systems Status of ROS Reports: 10 or more systems reviewed and unremarkable except as noted in History and below Narrative Constitutional: No fevers, no weight gain or loss. Eyes: No discharge. No vision changes. HENT: No congestion, no sore throat, no ear pain. Cardiovascular: No chest pain, no palpitations. Respiratory: No shortness of breath, no wheezes, no cough. Gastrointestinal: No vomiting, no diarrhea. Upper epigastric and right upper quadrant abdominal pain as described above. Genitourinary: No dysuria, no hematuria. Musculoskeletal: Normal range of motion. Skin: No rashes, no pruritis. Neurological: No dizziness, weakness, sensory change, speech change. Endo/Heme/Allergies: No bruising or bleeding. No polydipsia. Pysch: no suicidality, no anxiety, no insomnia. All other systems reviewed and are negative. 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 (ICD-10) Hypoxia ?R09.02 - Hypoxemia (ICD-10) Cellulitis ?L03.90 - Cellulitis, unspecified (ICD-10) Mitral valve insufficiency ?I34.0 - Nonrheumatic mitral (valve) insufficiency (ICD-10) Midline cystocele (09/01/16) ?N81.11 - Cystocele, 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641 - Presence of right artificial hip joint (ICD-10) History of partial surgical removal of colon (08/23/02) ?Z90.49 - Acquired absence of other specified parts of digestive tract (ICD-10) History of lumpectomy of right breast (1999) ?Z98.890 - Other specified postprocedural states (ICD-10) History of colonoscopy with polypectomy (03/2019) ?Z98.890 - Other specified postprocedural states (ICD-10) ?Z86.010 - Personal history of colonic polyps (ICD-10) History of carpal tunnel release of both wrists (~1989) ?Z98.890 - Other specified postprocedural states (ICD-10) History of bladder surgery (09/17/19) ?Z98.890 - Other specified postprocedural states (ICD-10) History of appendectomy ?Z90.49 - Acquired absence of other specified parts of digestive tract (ICD-10) Family History Mother Cancer Heart failure Father Colon cancer Social History Narrative: She lives in [place] with her . Her has some dementia. He is currently home alone. Her son, Bahman, lives nearby. He is primary support and healthcare power of contract attorney. Code status is full. does not use illicit drugs no history of alcohol use nonsmoker What is your current living situation?: I presently have a place to live In the past 12 months, utilities in danger of being shut off: no In past 12 months, lack of transportation kept you from medical appts, meetings, work, or getting things needed for daily living: no In the past 12 mos, have been you worried that your food would run out before you had money to buy more?: never true Smoking Status: Never smoker Do you use any of these nicotine containing products: None How often do you have a drink containing alcohol: monthly or less Alcohol type: wine How many standard drinks containing alcohol do you have on a typical day: 1 or 2 How often do you have six or more drinks on one occasion: Never AUDIT-C Alcohol total score: 1 Non-prescribed substance use: denies use Caffeine: Yes (1 cup/day) How often does anyone, including family, friends and others, insult or talk down to you: fairly often Little interest or pleasure in doing things: not at all Feeling down, depressed, or hopeless: several days Exam Narrative: Exam Narrative: Constitutional: Well-developed, well-nourished, no acute distress. HEENT: Normocephalic, atraumatic. Neck: Normal range of motion. Nontender. Supple. Heart: Regular. No murmurs. Normal rate. Intact distal pulses. Lungs: Clear to auscultation. No chest discomfort. No wheezes, rhonchi, or rales. Abdomen: Normal bowel sounds. Tenderness in the upper epigastric region and right upper quadrant. No rebound tenderness. Genitalia: Deferred. Back: No midline tenderness. Normal range of motion. Extremities: Normal range of motion. No injury. Skin: Intact. No rash. Warm. No erythema or pallor. Neurologic: No altered sensation. No weakness. Alert and oriented. Psychiatric: No suicidality. No anxiety or depression. No insomnia. Nursing notes and vitals signs are reviewed. Const: Vital Signs, click to edit/add: Vital Signs - 24 hr 01/18/24 13:04 01/18/24 15:08 Temperature 97.9 F Pulse Rate [Pulse Oximeter] 76 Respiratory Rate 16 Blood Pressure 145/64 H Blood Pressure [Ri ght Upper Arm] 171/72 H Pulse Oximetry 96 Oxygen Delivery Me thod Room Air Course Vital Signs Vital signs: Initial Vital Signs Temperature 97.9 F 01/18/24 13:04 Temperature Source Temporal Artery Scan 01/18/24 13:04 Pulse Rate 76 01/18/24 13:04 Pulse Rhythm Regular 01/18/24 13:04 Respiratory Rate 16 01/18/24 13:04 Blood Pressure 171/72 H 01/18/24 13:04 Blood Pressure Mean 105 01/18/24 13:04 Blood Pressure Position Sitting 01/18/24 13:04 Pulse Oximetry 96 01/18/24 13:04 Oxygen Delivery Method Room Air 01/18/24 13:04 Vital Signs Temperature 97.9 F 01/18/24 13:04 Pulse Rate 76 01/18/24 13:04 Respiratory Rate 16 01/18/24 13:04 Blood Pressure 171/72 H 01/18/24 13:04 Pulse Oximetry 96 01/18/24 13:04 Oxygen Delivery Method Room Air 01/18/24 13:04 Temperature 97.9 F 01/18/24 13:04 Pulse Rate 76 01/18/24 13:04 Respiratory Rate 16 01/18/24 13:04 Blood Pressure 145/64 H 01/18/24 15:08 Pulse Oximetry 96 01/18/24 13:04 Oxygen Delivery Method Room Air 01/18/24 13:04 MDM - Abdominal Pain MDM Narrative Medical decision making narrative: This patient comes in with upper epigastric pain as described above. There is suspicion for possibility of coli lithiasis so an ultrasound was done. There is no evidence of gallstones or disease of her common bile duct. Meanwhile her labs returned with the lipase elevated at around 375. 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 I did discuss these matters with the hospitalist biotech production specialist, Dr. Chacon, who agrees to her admission into the hospital. The patient will benefit from a dedicated CT or MRI of this area to further evaluate her pancreas. Lab Data Labs: Lab Results 01/18/24 Range/Units 14:10 WBC 11.20 H (4.50-11.00) K/uL RBC 4.25 (4.00-5.20) m/uL Hgb 13.3 (12.0-16.0) gm/dL Hct 42.3 (33.0-51.0) % MCV 100 (80-100) fL MCH 31 (26-34) pg MCHC 31 L (32-36) gm/dL RDW Coeff of Traci 14.1 (11.5-15.5) % Plt Count 246 (140-440) K/uL Neut % (Auto) 83.5 H (42.0-72.0) % Lymph % (Auto) 6.5 L (20-44) % [place] % (Auto) 8.2 (0.0-11.0) % Eos % (Auto) 1.1 (0.0-7.0) % Baso % (Auto) 0.2 (0.0-3.0) % Neut # (Auto) 9.40 H (1.7-7.0) K/uL Lymph # (Auto) 0.70 L (0.90-2.90) K/uL [place] # (Auto) 0.90 (0.00-0.90) K/UL Eos # (Auto) 0.10 (0.00-0.50) K/uL Baso # (Auto) 0.00 (0.00-0.30) K/uL Abs Immat Gran (auto) 0.10 (0.00-0.30) K/uL Imm/Tot Granulo (auto) 0.5 % Sodium 139 (135-149) mmol/L Potassium 4.0 (3.6-5.1) mmol/L Chloride 104 (96-114) mmol/L Carbon Dioxide 31 (20-32) mmol/L Anion Gap 4 L (7-15) mEq/L BUN 25 (7-30) mg/dL Creatinine 1.0 (0.5-1.5) mg/dL Estimated Creat Clear 42.43 Estimated GFR 56 ml/min Glucose 89 (60-115) mg/dL Calcium 9.5 (8.4-10.6) mg/dL Total Bilirubin 0.6 (0.1-1.5) mg/dL Direct Bilirubin 0.2 (0.0-0.5) mg/dL AST 28 (12-35) U/L ALT 16 (4-35) U/L Alkaline Phosphatase 64 (40-150) U/L Total Protein 7.4 (6.0-8.3) g/dL Albumin 4.4 (3.3-5.0) g/dL Lipase 374 H (23-300) U/L Imaging Data CT scan - abdomen: Radiologist's impression: 1. Acute interstitial edematous pancreatitis. No peripancreatic fluid collections. 2. 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 3. There are associated inflammatory changes of the duodenum secondary to inflammation of the pancreas. 4. Uniformly increased attenuation of the bilateral renal collecting systems , may represent blood products within the collecting system, to correlate with urinalysis. Additional consideration includes a urothelial malignancy. When patient`s clinical course improves, would recommend dedicated CT or MR with a renal protocol for further assessment. Intermittent bleeding Discharge Plan Discharge Clinical Impression: Pancreatitis Patient Disposition: Admitted As Inpatient Condition: Unchanged Prescriptions: No Action calcium carbonate 600 mg calcium (1,500 mg) tablet 600 mg PO DAILY Qty: 90 4RF lorazepam 0.5 mg tablet 0.25 - 0.5 mg PO DAILY PRN (Reason: anxiety) Qty: 5 0RF Rx Instructions: 5 tablets must last one year levothyroxine 112 mcg tablet 112 mcg PO .COMPLEX Rx Instructions: 112 mcg orally x 6 days/week; multivitamin Tablet 1 tab PO DAILY Lactobacillus acidophilus 1 billion cell capsule 10 mg PO DAILY betamethasone, augmented 0.05 % cream 1 applic topical DAILY PRN gabapentin 6%/ketamine 8%/liodcaine 2.5% liposomal cream with baclofen 2% cream topical .four time daily PRN Rx Instructions: hand faxed rx to [facility] [phone] 60 grams with 1 refill sent to scanning diltiazem HCl 240 mg capsule,extended release 24hr 240 mg PO DAILY omeprazole 40 mg capsule,delayed release(DR/EC) 40 mg PO QDAY Qty: 90 0RF Gemtesa 75 mg tablet 75 mg PO DAILY acetaminophen 500 mg capsule 500 - 1,000 mg PO Q6H MDD 4000mg per day PRN (Reason: pain) Qty: 100 0RF clobetasol 0.05 % ointment 1 g topical 2XW PRN (Reason: lichen sclerosis) furosemide 20 mg tablet 20 mg PO DAILY PRN (Reason: edema) prednisone 10 mg tablet 10 mg PO Q OTHER DAY Qty: 45 3RF triamcinolone acetonide 0.1 % cream 1 applic topical BID PRN (Reason: rash) Qty: 80 1RF fosfomycin tromethamine 3 gram packet 1 packet PO Q3D PRN (Reason: bladder infections) Qty: 2 6RF warfarin 2.5 mg tablet 2.5 mg PO QDAY Qty: 90 0RF Protocol: Dose Management Condition: Tuesday Dose/Route: 2.5 mg Instruction: 1 x 2.5 mg tablet Condition: Tuesday Dose/Route: 1.25 mg Instruction: 0.5 x 2.5 mg tablets Condition: Tuesday Dose/Route: 2.5 mg Instruction: 1 x 2.5 mg tablet Condition: Tuesday Dose/Route: 1.25 mg Instruction: 0.5 x 2.5 mg tablets Condition: Dose/Route: 2.5 mg Instruction: 1 x 2.5 mg tablet Condition: Tuesday Dose/Route: 2.5 mg Instruction: 1 x 2.5 mg tablet Condition: Tuesday Dose/Route: 2.5 mg Instruction: 1 x 2.5 mg tablet Protocol Text: Adjustment Start Date: Tuesday01/16/24 INR Value: 4.0 INR Date: 01/16/24 Recheck Date: 01/23/24 sennosides [Senna Lax] 8.6 mg tablet 8.6 mg PO BID PRN (Reason: constipation) Qty: 180 1RF Prolia 60 mg/mL syringe 60 mg subcut [id number] Qty: 1 0RF pilocarpine HCl 5 mg tablet 5 mg PO TID Qty: 270 4RF Follow Up/Referrals: Jose Napier, SHIRAC [Primary Care Provider] -
--- OUTSIDE RECORDS SUMMARY | 2024-01-18 14:24 | XMS_ITS | Clinical Summary ---
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 current use of systemic steroids 09/27 Prediabetes [...] Date Anticoagulation monitoring, INR range 2-3 [Z79.01]; [place] Target 2.5-3.0 12/06/2016 1 Pessary maintenance 02/25/2016 09/28/19 20 Anticoagulation monitoring, goal range 2.0-2.6 09/19/2013 01/09/2018 Abnormal stress test 11/17/2010 011 Routine general medical exam ination at a health care facility 07/12/2009 09/28/2019 Overview: Normal CT angiogram 11/2010 Hip pain 05/06/2008 07/09/2009 Onychomycosis 05/06/2008 08/27/2008 HX OF VENOUS THROMBOSIS AND EMBOLISM 11/09/2006 12/06/2012 Bilateral pulmonary embolism 10/11/2006 11/18/2017 AFTERCARE, LONG-TERM USE, RI DICATIONS NEC-PLAQUENIL 10/22/2003 Encounters Date Type Department Care Team Description 01/06/2024 Telephone [facility] [address] [place] [address] Charlotte Springer MD Questions (Concern about wound) 12/30/2023 Transcribe Orders [facility] [address] [place] [address] Charlotte Springer MD 12/12/2023 Lab Requisition [facility] [phone] Unknown, Doctor 12/09/2023 Telephone [facility] [address] [place], [place] [id number] Charlotte Springer MD Care Coordination 12/05/2023 11:00 AM CDT Office Visit [facility] [address] [place] [address] Charlotte Springer MD Follow Up (LLE wound follow up ) 12/05/2023 8:56 AM CDT - 12/05/2023 11:59 PM CDT Hospital Encounter [facility] [address] [place] [address] Charlotte Springer MD Venous insufficiency; Venous stasis ulcer of ankle, left (HC) 12/05/2023 Travel 11/23/2023 9:30 AM CDT Office Visit [facility] [address] [place] [address] Charlotte Springer MD Ankle Pain/problem (L medial malleolar ulcer) 11/23/2023 6:47 AM CDT - 11/23/2023 11:59 PM CDT Hospital Encounter [facility] [address] [place] [address] Charlotte Springer MD PAD (peripheral artery disease) (HC) 11/22/2023 Travel from Last 3 Months Immunizations Name Administration Dates Next Due AMB INFLUENZA IIV3 (AGE 65+ YRS) PF (Flu Clinic Only) 03/23/2017 AMB Influenza, IIV3 (Age >=3 years) Preserve Free (Flu Clinic Only) 04/08/2009 AMB Influenza, IIV3 (Age >=3 years)(Flu Clinic Only) 04/06/2013,04/16/2011,04/24/2008 COVID-19 vaccine ([email or web address] NTListen Edition 30mcg/0.3mL) PF MDV 09/02/2020,08/12/2020 Influenza A (H1N1), Inactiva clint [...] Description 02/06/2024 10:30 AM CDT Office Visit [facility] [address] [place] [address] Charlotte Springer MD [address] [place], [place] [phone] 02/16/2024 7:00 AM CDT Appointment [facility] [address] [place], [place] [phone] 02/16/2024 8:00 AM CDT Procedure Only [facility] [address] [place] [phone] Charlotte Springer MD [address] [place], [place] [phone] 02/17/2024 11:30 AM CDT Appointment [facility] [address] [place] [address] 02/28/2024 10:00 AM CDT Office Visit [facility] [address] [place], [place] [id number] [place] [address] [place], [place] [id number] Health Maintenance Due Date Last Done Comments Depression screening for age 12+ 06/18/2021 06/18/2020, 06/18/2020, 06/18/2020, Additional history exists Medicare Wellness for age 65+ 06/19/2021, 06/18/2019, 06/28/2018, Additional history exists COVID-19 vaccine series (24 season) 2023 06/13/2023, 04/30/2022, 04/14/2021, Additional history [...] 01/13/2016, 12/18/2010 Medical Devices Implanted Type Area Web Worker Device Identifier Shelf Expiration Date Model / Serial / Lot Lead Kit 4.32mm Spacing 28cm Length Interstim - [id number] Implanted:Qty: 1 on 04/01/2020 by Charlotte Smith MD at [facility] N/A: Sacrum Med[employer] Pain Therapy 09/30/2021 [id number] / / [id number] Stimulator 7.7mm 14cc Interstim Ii - [id number] Implanted:Qty: 1 on 04/01/2020 by Charlotte Smith MD at [facility] N/A: Sacrum [employer] Pain Therapy 03/31/2021 [id number] / [id number] / Description:PIN [id number] Procedures Procedure Name Priority Date/Time Associated Diagnosis [...] 2 SITES AXIAL Routine 07/02/2019 11:48 AM BAND SPLITTER Osteopenia of multiple sites from Last 3 Months or Most Recently Relevant to Health Maintenance Results * (ABNORMAL) REFERRAL ID/SUSC,NONURINE (12/08/2023 11:47 AM CDT) CULTURE RESULT(A) 12/17/2023 2:44 PM CDT [facility] CULTURE 1+ Acinetobacter species 12/17/2023 2:44 PM CDT [facility] [employer] LABORATORY-CE N[facility]AL LABORATORY Other (Left Leg) Client Collect / Unknown 12/08/2023 11:47 AM CDT 12/12/2023 10:11 PM CDT Narrative Organism Antibiotic Method Susceptibility Acinetobacter species TRIMETHOPRIM/SULF S Acinetobacter species GENTAMICIN S Acinetobacter species CEFTAZIDIME R Acinetobacter species LEVOFLOXACIN S Acinetobacter species CIPROFLOXACIN I Acinetobacter species PIPERACILLIN/TAZO I Acinetobacter species AMPICILLIN/SULBACTAM S Acinetobacter species TOBRAMYCIN S Acinetobacter species MEROPENEM S Doctor Unknown MICROBIOLOGY [facility]AL LABORATORY [address] [place] [address], * US VENOUS INSUFFICIENCY LOWER EXTREMITY BILATERAL [...] US VENOUS INSUFFICIENCY LOWER EXTREMITY BILATERAL LOCATION: [facility] DATE: 12/05/2023 INDICATION: Lower extremity [...] when greater than 600 ms flow reversal. Credit Report Checker vein reflux reported as greater than 350 [...] US VENOUS INSUFFICIENCY LOWER EXTREMITY BILATERAL LOCATION: [facility] DATE: 12/05/2023 INDICATION: Lower extremity [...] reported when greater than 600ms flow reversal. Credit Report Checker vein reflux reported as greater than 350 [...] VASCULAR ULTRASOUND REPORT RODERICK HEATON Accession#: ?? [id number] : ?1940 ??Study Date: ?? 11/23/2023 7:17:22 AM Age: ?83 years ?? Tech: ? KBN/CRK Gender: F ?Referring MD: CHARLOTTE SPRINGER Site: [facility] Vascular [facility] Study performed: ?Lower extremity resting MINOR, (bilateral). [...] ? Index +-----+ +--------+ +-----+ 1.24 ?241 ?IT BUSINESS PROCESS ARCHITECT ?107 ? 0.55 +-----+ +--------+ +-----+ 1.23 ?238 ?DPA ?147 ? 0.76 +-----+ +--------+ +-----+ 0.63 ?122 ? Digit 1 ?45 ? 0.23 +-----+ +--------+ +-----+ Wang Dela Cruz MD. Electronically signed on 11/23/2023 12:17:56 PM This study was performed and interpreted by a service accredited by the Intersocietal Accreditation Commission (IAC/Vascular), www.intersocietal.org/vascular Report generated by [employer]. ??Final ?? Procedure Note Wang Dela Cruz MD - 11/23/2023 VASCULAR ULTRASOUND REPORT RODERICK HEATON : 1940 Study Date: 11/23/2023 7:17:22 AM Age: 83 years Tech: ARISTIDES/JOHNNY Gender: F Referring MD: CHARLOTTE SPRINGER Site: [facility] V[facility] Study performed: Lower extremity resting MINOR, (bilateral). [...] 194 Index +-----+ +--------+ +-----+ 1.24 241 IT BUSINESS PROCESS ARCHITECT 107 0.55 +-----+ +--------+ +-----+ 1.23 238 DPA 147 0.76 +-----+ +--------+ +-----+ 0.63 122 Digit 1 45 0.23 +-----+ +--------+ +-----+ Wang Dela Cruz MD. Electronically signed on 11/23/2023 12:17:56 PM This study was performed and interpreted by a service accredited by theIntersocietal Accreditation Commission (IAC/Vascular),www.intersocietal.org/vascular Report generated by [employer]. Final Charlotte Springer MD US * US ARTERIAL LOWER EXTREMITY BILATERAL (11/23/2023 8:37 AM CDT) Anatomical Region Laterality Modality LEGS, LEG L, LEG R Ultrasound 11/23/2023 7:26 AM CDT Narrative 11/23/2023 12:22 PM CDT VASCULAR ULTRASOUND REPORT RODERICK HEATON Accession#: ?? [id number] : ?1940 ??Study Date: ?? 11/23/2023 7:26:56 AM Age: ?83 years ?? Tech: ? KBN/CRK Gender: F ?Referring MD: CHARLOTTE SPRINGER Site: [facility] Vascular [facility] Study performed: ?Lower extremity duplex US, (bilateral). [...] DST ? 104 ? +--------+ + +-----+ CHIEF FINANCIAL OFFICER DST ? 111 ? +--------+ + +-----+ PFA ? 88 ? +--------+ + +-----+ SFA PRX ? 111 ? +--------+ + +-----+ SFA MID ? 66 ? +--------+ + +-----+ SFA DST ? 415 ? 64 ? 6.5 ?? +--------+ + +-----+ COLLIN PRX ? 101 ? +--------+ + +-----+ COLLIN DST ? 41 ? +--------+ + +-----+ IT BUSINESS PROCESS ARCHITECT DST ? 80 ? +--------+ + +-----+ KAREN DST ? 38 ? +--------+ + +-----+ LAXMI DST -179 retro ? +--------+ + +-----+ DPA ?-34 retro ? +--------+ + +-----+ +--------+ + +-----+ LEFT ? Velocity cm/s PRE ? Ratio ? Velocity cm/s ? Phasicity ? +--------+ + +-----+ EIA DST ? 100 ? +--------+ + +-----+ CHIEF FINANCIAL OFFICER DST ? 98 ? +--------+ + +-----+ PFA ? 73 ? +--------+ + +-----+ SFA PRX ? 100 ? +--------+ + +-----+ SFA MID ? 52 ? +--------+ + +-----+ SFA DST ? 44 ? +--------+ + +-----+ COLLIN PRX ? 674 ? 55 ? 12.3 +--------+ + +-----+ COLLIN DST ? 27 ? +--------+ + +-----+ IT BUSINESS PROCESS ARCHITECT DST ? 11 ? +--------+ + +-----+ [...] Accreditation Commission (IAC/Vascular), www.intersocietal.org/vascular Report generated by [employer]. ??Final ?? Procedure Note Wang Dela Cruz MD - 11/23/2023 VASCULAR ULTRASOUND REPORT RODERICK HEATON : 1940 Study Date: 11/23/2023 7:26:56 AM Age: 83 years Tech: ARISTIDES/JOHNNY Gender: F Referring MD: CHARLOTTE SPRINGER Site: [facility] Vascular [facility] Study performed: Lower extremity duplex US, (bilateral). [...] +-----+ EIA DST 104 +--------+ + +-----+ CHIEF FINANCIAL OFFICER DST 111 +--------+ + +-----+ PFA 88 +--------+ + +-----+ SFA PRX 111 +--------+ + +-----+ SFA MID 66 +--------+ + +-----+ SFA DST 415 64 6.5 +--------+ + +-----+ COLLIN PRX 101 +--------+ + +-----+ COLLIN DST 41 +--------+ + +-----+ IT BUSINESS PROCESS ARCHITECT DST 80 +--------+ + +-----+ KAREN DST 38 +--------+ + +-----+ LAXMI DST -179 retro +--------+ + +-----+ DPA -34 retro +--------+ + +-----+ +--------+ + +-----+ LEFT Velocity cm/s PRE Ratio Velocity cm/s Phasicity +--------+ + +-----+ EIA DST 100 +--------+ + +-----+ CHIEF FINANCIAL OFFICER DST 98 +--------+ + +-----+ PFA 73 +--------+ + +-----+ SFA PRX 100 +--------+ + +-----+ SFA MID 52 +--------+ + +-----+ SFA DST 44 +--------+ + +-----+ COLLIN PRX 674 55 12.3 +--------+ + +-----+ COLLIN DST 27 +--------+ + +-----+ IT BUSINESS PROCESS ARCHITECT DST 11 +--------+ + +-----+ LAXMI DST [...] theIntersocietal Accreditation Commission (IAC/Vascular),www.intersocietal.org/vascular Report generated by [employer]. Final Charlotte Springer MD * (ABNORMAL) XR DXA BONE DENSITY 2 SITES AXIAL (07/02/2019 11:48 AM BAND SPLITTER) Anatomical Region Laterality Modality Spine, HIPS, HIPL, HIPR Other Narrative 07/06/2019 11:01 AM BAND SPLITTER Please see scanned document for results of this study. Rakel Connor DO DEXA from Last 3 Months or Most Recently Relevant to Health Maintenance Advance Directives Documents on File Type Date Recorded Patient [place] [facility] Expl anation Healthcare Directive 07/19/2016 2:58 PM [...] 8:45 AM 09/01/2016 4:04 PM Care Teams Technical Spec Relationship Specialty Start Date End Date Maritza Rendon DO [address] [place] [address] PCP - General Family Practice 12/30/22 Kd Restrepo MD Endocrinology 11/24/11 Cody Veliz MD Rheumatology 11/24/11
--- OUTSIDE RECORDS SUMMARY | 2024-01-18 14:24 | XMS_ITS | Continuity of Care Document ---
Author Organization [facility] Address [address] [place] [address] Phone Care Team Providers Care Cement Mason Helper Name Role Phone Usha Dickinson Unavailable Unavailable [...] on Encounter [facility], [address], [facility] [place], [place], [id number], [place] tel:[phone] No Information [facility]. [facility], [address], [place], [place], [id number] , [place]. [phone] Office/Outpat ient Visit,Est, Mod [facility], [address], [place], [place], [address], [place] tel:[phone] [facility] Other forms of scoliosis, thoracolumbar regionL2 wedge compression fracture, initial encounter for closed fractureSpondy lolisthesis, lumbar region [address] [facility], [address], [place], [place], [id number] , [place]. tel:[phone] Referring Provider: Rakel Arvizu, [facility] [address] [place], [address]. tel:[phone] Office/Outpat ient Visit,Est, Mod [facility], [address], [facility] [place], [id number], [place] tel:[phone] [facility] L2 wedge compression fracture, initial encounter for closed fractureOther forms of scoliosis, thoracolumbar regionSpondylo listhesis, lumbar region [address] [facility], [address], [place], [place], [id number] , . tel:[phone] Referring Provider: Rakel Arvizu Bilneur [address] [place], [address]. tel:[phone] Office/Outpat ient Visit,[facility], [facility], [address], [facility] [place], [id number], [place] tel:[phone] [facility] [place] L2 wedge compression fracture, initial encounter for closed fractureOther forms of scoliosis, thoracolumbar regionSpondylo listhesis, lumbar region 0 Kwame Kerr. [facility], [address], [place], [place], [id number] , [place]. tel:[phone] Referring Provider: Rakel Arvizu Bilneur [address] [place], [address]. tel:[phone] Family History Family Member Type Diagnosis Age At Onset No Information Payers Payer name Insurance type Covered alliance party ID Authoralethaa tishannon(s) Medicare MB [id number] [facility] [id number] [facility] [id number] Social History Type Description Quantity Date Captured [...]
--- OUTSIDE RECORDS SUMMARY | 2024-01-18 14:24 | XMS_ITS | Continuity of Care Document ---
Author Organization [facility] Address [address] [place] [address] Phone Care Team Providers Care Slag Skimmer Name Role Phone Helder Medina MD Unavailable [...] Dna Antibody, Single Strand Dna Antibody, [place] Devil Nuclear Antigen Antibodies Rheumatoid Factor, IGM Rheumatoid Factor, IGG, IGA Advance Directives Directive Yes / No Effective Date File Name No Information Encounters Encounter Description Practice Location Reason(s) For Visit Diagnoses Date Provider Providers Copied on Encounter [facility], [address], [place], [address], [place] tel:[phone] [facility], No Information Apr-- [address] Pendleton[address], [address], [place], [address], [place]. tel:[phone] Referring Provider: Helder Jain, [address], [place], [address]. tel:[phone] Office/Outpa tient Visit, Est [facility], [address], [place], [address], [place] tel:[phone] [facility], Sjogren syndrome w/ inflammatory arthritisPain in left foot Apr- 0 4 Lebedoff Helder. [address], [address], [place], [address], [place]. tel:[phone] Referring Provider: Helder Jain, [address], [place], [address]. tel:[phone] Office/Outpa tient Visit, Est [facility], [address], [place], [address], [place] tel:[phone] [facility], Sjogren syndrome w/ inflammatory arthritisPrim mauri osteoarthriti s, right hand 3 Lebedoff Helder. [address], [address], [place], [address], [place]. tel:[phone] Referring Provider: Helder Jain, [address], [place], [address]. tel:[phone] Office/Outpa tient Visit, Est [facility], [address], [place], [address], [place] tel:[phone] [facility], Sicca syndrome, unspecifiedWe akness November- 0 3 Lebedoff Helder. [address], [place], [address], [place]. tel:[phone] Referring Provider: Helder Jain, [address], [place], [address]. tel:[phone] Office/Outpa tient Visit, Est [facility], [address], [place], [address], [place] tel:[phone] [facility], Sicca syndrome, unspecifiedPa in in left shoulder Apr- 2 Adam Pendleton. [address], [address], [place], [address], [place]. tel:[phone] Referring Provider: Helder Jain, [address], [place], [address]. tel:[phone] Office/Outpa tient Visit, Est [facility], [address], [place], [address], [place] tel:[phone] [facility], Sicca syndrome, unspecifiedDy spnea Oct- 2 Adam Pendleton. [address], [place], [address], [place]. tel:[phone] Referring Provider: Helder Jain, [address], [place], [address]. tel:[phone] Office/Outpa tient Visit, Est [facility], [address], [place], [address], [place] tel:[phone] [facility], Sicca syndrome, unspecifiedOt her snf (current) drug therapyPrimar y OA of right handDyspnea Apr- 1 Adam Pendleton. [address], [place], [address], [place]. tel:[phone] Referring Provider: Helder Jain, [address], [place], [address]. tel:[phone] Office/Outpa tient Visit, New [facility], [address], [place], [address], [place] tel:[phone] [facility], Sicca syndrome, unspecifiedPa in in rt ankleOther snf (current) drug therapy 1 Adam Pendleton. [address], [place], [address], [place]. tel:[phone] Referring Provider: Helder Medina G, [address], [place], [address]. tel:[phone] [facility], [address], [place], [address], [place] tel:[phone] [facility] No Information 1 Mo [place]. [facility] [address] [place] [address] [address], [place], [address], [place]. tel:[phone] Family History Family Member Type Diagnosis Age At Onset No Information Immunizations Vaccine Date Status Comments COVID-19 Moderna administered Source: Ot er Provider COVID-19 Pfizer administered Note: 1 ; Source: Other Provider Payers Payer name Insurance type Covered constitution party ID Authoriza tion(s) [employer] Medicare Adv [id number] MB [id number] Social History Type Description Quantity Date Captured [...] Order Fo ot X-ray; Complete (3+ views) (11723), Sent on: Sent History Of Present Illness [...]
[2024-01-18 14:27] LABS: Basophils Percent Auto 0.2 % (0.0-3.0); Eosinophils Percent Auto 1.1 % (0.0-7.0); Hematocrit 42.3 % (33.0-51.0); Hemoglobin* 13.3 gm/dL (12.0-16.0); Immature Granulocytes Pct Auto 0.5 %; Lymphocytes Percent Auto 6.5 % (20-44); Mean Corpuscular HGB Conc 31 gm/dL (32-36); Mean Corpuscular Hemoglobin 31 pg (26-34); Mean Corpuscular Volume 100 fL (80-100); Monocytes Percent Auto 8.2 % (0.0-11.0); Neutrophils Percent Auto 83.5 % (42.0-72.0); Platelet Count* 246 K/uL (140-440); RDW Coefficient of Variation % 14.1 % (11.5-15.5); Red Blood Count 4.25 m/uL (4.00-5.20)
[2024-01-18 14:31] LABS: Slide Review Reflex No
[2024-01-18 14:42] LABS: Chloride* 104 mmol/L (96-114)
[2024-01-18 14:43] LABS: Albumin* 4.4 g/dL (3.3-5.0); Sodium* 139 mmol/L (135-149)
[2024-01-18 14:45] LABS: Est. Creatinine Clearance* 42.43; Estimated Glomerular Filt Rate 56 ml/min
[2024-01-18 14:46] LABS: Alanine Aminotransferase* 16 U/L (4-35); Alkaline Phosphatase* 64 U/L (40-150); Anion Gap 4 mEq/L (7-15); Aspartate Amino Transferase* 28 U/L (12-35); Bilirubin Direct* 0.2 mg/dL (0.0-0.5); Bilirubin Total* 0.6 mg/dL (0.1-1.5); Blood Urea Nitrogen* 25 mg/dL (7-30); Calcium* 9.5 mg/dL (8.4-10.6); Carbon Dioxide* 31 mmol/L (20-32); Glucose* 89 mg/dL (60-115); Lipase* 374 U/L (23-300); Total Protein* 7.4 g/dL (6.0-8.3)
[2024-01-18 15:08] VITALS: BP 145/64
--- NOTE | 2024-01-18 15:13 | CRLHL7_ITS ---
For Patients: As a result of the Century Cures Act, medical imaging exams and procedure reports are released immediately into your electronic medical record. You may view this report before your referring provider. If you have questions, please contact your health care provider. Indication: UPPER EPIG PAIN; LIPASE 375 Technique: CT abdomen/pelvis with IV contrast, 68 mL Isovue 370 Comparison: None Findings: Lower thorax: The heart is normal in size. No pericardial effusion. Coronary artery calcifications. Aortic and mitral annular calcifications. No focal airspace consolidation, pleural effusion, or pneumothorax. Numerous pulmonary cysts bilaterally. No suspicious pulmonary nodules or masses. The airways are clear. 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 No suspicious hepatic lesions. The gallbladder and biliary system are within normal limits. The spleen is unremarkable. Low-density cystic lesion at the pancreatic tail measuring approximately 1.2 centimeters, incompletely characterized on this exam but favored to represent a side branch intraductal papillary mucinous neoplasm (IPMN). There are mild peripancreatic inflammatory changes with some edematous changes seen at the pancreatic head and uncinate process. There is no pancreatic ductal dilatation. No peripancreatic fluid collections. No adrenal nodules. Kidneys perfuse in a normal fashion with no suspicious enhancing renal masses or lesions. There is some asymmetric cortical atrophy of the left kidney. Simple appearing renal cysts bilaterally. There is uniformly increased attenuation of the bilateral renal collecting systems. No obstructing stones. The bladder is unremarkable in appearance. The uterus is unremarkable in appearance. No appreciable adnexal lesions. No evidence of bowel obstruction. There are inflammatory changes of the duodenum secondary to inflammation of the pancreas. The appendix is not discretely visualized; however, there is no CT evidence of acute appendicitis. Scattered colonic diverticula without CT evidence of acute diverticulitis. No free fluid or free air. No abscess. No pathologically enlarged lymph nodes throughout the abdomen or pelvis. No abdominal aortic aneurysm. Moderate calcific atherosclerosis of the aortoiliac system and its branches. Soft tissue/musculoskeletal: No acute fracture or malalignment. Multilevel degenerative changes throughout the spine. Sacral nerve stimulator. Right total hip arthroplasty. Impression: 1. Acute interstitial edematous pancreatitis. No peripancreatic fluid collections. 2. 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 3. There are associated inflammatory changes of the duodenum secondary to inflammation of the pancreas. 4. Uniformly increased attenuation of the bilateral renal collecting systems , may represent blood products within the collecting system, to correlate with urinalysis. Additional consideration includes a urothelial malignancy. When patient`s clinical course improves, would recommend dedicated CT or MR with a renal protocol for further assessment. Intermittent bleeding Please note that all CT scans at this facility use dose modulation, iterative reconstruction, and/or weight-based dosing when appropriate to reduce radiation dose to as low as reasonably achievable. Dictated by Robb Bloom MD @ 01/18/2024 4:37:43 PM (Electronically Signed)
[2024-01-18] MEDS: 0.9 % SODIUM CHLORIDE 1000 ml 1,000 ML IV (17:25)
--- NOTE | 2024-01-18 17:57 | PM.IMHP1 ---
Hospitalist- H&P: HPI History of Present Illness Date Seen: 01/18/24 Chief complaint: Abdominal pain Narrative: Patsy Beltrán is a 83 year old female presenting for evaluation of abdominal pain. The patient developed worsening epigastric and RUQ abdominal pain that was worsening since yesterday evening. No vomiting or diarrhea. Today she was seen at Urgent Care and referred to ED. In the ED CT AP showed findings consistent with acute pancreatitis ( Acute interstitial edematous pancreatitis). Lipase is 374. She currently is having minimal abdominal pain. She denies alcohol use. CT AP 1. Acute interstitial edematous pancreatitis. No peripancreatic fluid collections. 2. 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 3. There are associated inflammatory changes of the duodenum secondary to inflammation of the pancreas. 4. Uniformly increased attenuation of the bilateral renal collecting systems , may represent blood products within the collecting system, to correlate with urinalysis. Additional consideration includes a urothelial malignancy. When patient`s clinical course improves, would recommend dedicated CT or MR with a renal protocol for further assessment. Intermittent bleeding Please note that all CT scans at this facility use dose modulation, iterative reconstruction, and/or weight-based dosing when appropriate to reduce radiation dose to as low as reasonably achievable. Dictated by Robb Bloom MD @ 01/18/2024 4:37:43 PM ----- ADDENDUM ----- There was a dictation error in the 4th impression item. The intermittent bleeding at the end of the 4th impression should be disregarded. 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 (ICD-10) Hypoxia ?R09.02 - Hypoxemia (ICD-10) Cellulitis ?L03.90 - Cellulitis, unspecified (ICD-10) Mitral valve insufficiency ?I34.0 - Nonrheumatic mitral (valve) insufficiency (ICD-10) Midline cystocele (03/01/17) ?N81.11 - Cystocele, midline (ICD-10) jail current use of systemic steroids ?Z79.52 - jail (current) use of systemic steroids (ICD-10) Diverticular disease ?K57.90 - Diverticulosis of intestine, part unspecified, without perforation or abscess without bleeding (ICD-10) Surgical History (Updated 11/03/23 @ 08:28 by Jose Napier PA-C) 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) ?Z96.612 - Presence of left artificial shoulder joint (ICD-10) History of bladder surgery (~2020) ?Z98.890 - Other specified postprocedural states (ICD-10) 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) ?Z96.641 - Presence of right artificial hip joint (ICD-10) History of partial surgical removal of colon (08/23/02) ?Z90.49 - Acquired absence of other specified parts of digestive tract (ICD-10) History of lumpectomy of right breast (1999) ?Z98.890 - Other specified postprocedural states (ICD-10) History of colonoscopy with polypectomy (03/2019) ?Z98.890 - Other specified postprocedural states (ICD-10) ?Z86.010 - Personal history of colonic polyps (ICD-10) History of carpal tunnel release of both wrists (~1989) ?Z98.890 - Other specified postprocedural states (ICD-10) History of bladder surgery (09/17/19) ?Z98.890 - Other specified postprocedural states (ICD-10) History of appendectomy ?Z90.49 - Acquired absence of other specified parts of digestive tract (ICD-10) Family History Mother Cancer Heart failure Father Colon cancer Social History Narrative: She lives in [place] with her . Her has some dementia. He is currently home alone. Her son, Bahman, lives nearby. He is primary support and healthcare power of finance attorney. Code status is full. does not use illicit drugs no history of alcohol use nonsmoker What is your current living situation?: I presently have a place to live Problems where you live: no known problems Problems where you live details: N/A In the past 12 months, utilities in danger of being shut off: no In past 12 months, lack of transportation kept you from medical appts, meetings, work, or getting things needed for daily living: no In the past 12 mos, have been you worried that your food would run out before you had money to buy more?: never true In the past 12 mos, the food you bought just didn't last and you didn't have money to buy more?: never true Highest level of school completed/degree received: high school graduate Smoking Status: Never smoker Do you use any of these nicotine containing products: None How often do you have a drink containing alcohol: monthly or less Alcohol type: wine How many standard drinks containing alcohol do you have on a typical day: 1 or 2 How often do you have six or more drinks on one occasion: Never AUDIT-C Alcohol total score: 1 Non-prescribed substance use: denies use Caffeine: Yes How often does anyone, including family, friends and others, physically hurt you: never How often does anyone, including family, friends and others, insult or talk down to you: never How often does anyone, including family, friends and others, threaten you with harm: never How often does anyone, including family, friends and others, scream or curse at you: never Little interest or pleasure in doing things: not at all Feeling down, depressed, or hopeless: several days service: No Meds Home Medications and Allergies Home Medications ?Medication ?Instructions ?Recorded ?Confirmed ?Type Lactobacillus acidophilus 1 10 mg PO DAILY 04/15/22 01/18/24 History billion cell capsule betamethasone, augmented 0.05 % 1 applic topical DAILY PRN 04/15/22 01/18/24 History topical cream multivitamin 1 tab PO DAILY 04/15/22 01/18/24 History clobetasol 0.05 % topical ointment 1 g topical 2XW PRN lichen 09/10/22 01/18/24 History sclerosis furosemide 20 mg tablet 20 mg PO DAILY PRN edema 09/10/22 01/18/24 History gabapentin 6%/ketamine See Rx Instructions topical .four 01/24/23 01/18/24 History 8%/liodcaine 2.5% liposomal cream time daily PRN with baclofen 2% vibegron 75 mg tablet (Gemtesa) 75 mg PO DAILY 03/24/23 01/18/24 History diltiazem HCl 240 mg 240 mg PO DAILY 06/02/23 01/18/24 History capsule,extended release 24 hr levothyroxine 112 mcg tablet 112 mcg PO .COMPLEX 11/03/23 01/18/24 History omeprazole 40 mg capsule,delayed 40 mg PO DAILY 01/18/24 01/18/24 History release warfarin 2.5 mg tablet 1.25 - 2.5 mg PO DAILY 01/18/24 01/18/24 History Allergies Allergy/AdvReac Type Severity Reaction Status Date / Time sulindac Allergy Severe Difficulty Verified 01/18/24 15:43 Breathing tetracycline Allergy Intermediate Rash Verified 01/18/24 15:43 mirabegron Allergy Mild lost Verified 01/18/24 15:43 control of bladder amoxicillin Allergy Unknown Verified 01/18/24 15:43 aspirin Allergy Unknown Verified 01/18/24 15:43 atorvastatin Allergy Unknown Verified 01/18/24 15:43 cholecalciferol (vitamin D3) Allergy Unknown Verified 01/18/24 15:43 [From Vitamin D3] ciprofloxacin Allergy Unknown Verified 01/18/24 15:43 clindamycin Allergy Unknown Verified 01/18/24 15:43 hydrochlorothiazide Allergy Unknown Verified 01/18/24 15:43 losartan Allergy Unknown Verified 01/18/24 09:28 metoprolol Allergy Unknown Verified 01/18/24 09:28 naproxen Allergy Unknown Verified 01/18/24 09:28 Nitroimidazoles Allergy Unknown Verified 01/18/24 09:28 alendronate sodium Allergy Verified 01/18/24 09:28 estrogens, conjugated Allergy Verified 01/18/24 09:28 oxybutynin Allergy Verified 01/18/24 09:28 Penicillins Allergy Verified 01/18/24 09:28 Sulfa (Sulfonamide Allergy Rash Verified 01/18/24 09:28 Antibiotics) Quinolones AdvReac Intermediate bad Verified 01/18/24 09:28 arthritis flair tolterodine AdvReac Intermediate Headache Verified 01/18/24 09:28 cephalexin AdvReac Unknown Hives Verified 01/18/24 09:28 furosemide AdvReac Unknown Verified 01/18/24 09:28 Exam Narrative: Exam Narrative: Gen: no acute distress HEENT: NCAT EOMI mmm Neck: Supple CV: RRR normal s1 s2 Lungs: CTAB Abd: Soft,nt, nd Neuro: Alert, oriented, CN grossly intact; nonfocal screening?exam Psych: appropriate affect MSK: age appropriate muscle mass Skin; Warm, dry no rash on face Const: Vital Signs, click to edit/add: Vital Signs - 24 hr 01/18/24 13:04 01/18/24 15:08 Temperature 97.9 F Pulse Rate [Pulse Oximeter] 76 Respiratory Rate 16 Blood Pressure 145/64 H Blood Pressure [Ri ght Upper Arm] 171/72 H Pulse Oximetry 96 Oxygen Delivery Me thod Room Air Hospitalist - H&P: Result Labs Labs: Short CBC 01/18/24 Range/Units 14:10 WBC 11.20 H (4.50-11.00) K/uL Hgb 13.3 (12.0-16.0) gm/dL Hct 42.3 (33.0-51.0) % Plt Count 246 (140-440) K/uL BMP 01/18/24 14:10 Sodium 139 Potassium 4.0 Chloride 104 Carbon Dioxide 31 BUN 25 Creatinine 1.0 Glucose 89 Calcium 9.5 Liver Function 01/18/24 Range/Units 14:10 Total Bilirubin 0.6 (0.1-1.5) mg/dL Direct Bilirubin 0.2 (0.0-0.5) mg/dL AST 28 (12-35) U/L ALT 16 (4-35) U/L Alkaline Phosphatase 64 (40-150) U/L Albumin 4.4 (3.3-5.0) g/dL Assessment and Plan Assessment and plan (1) Pancreatitis: Problem comment: acute pancreatitis; etiology unclear; presumed idiopathic no alcohol hx; possible underlying malignancy, will need GI referral Status: Acute (2) Hypothyroidism: Status: Chronic (3) Hypertension: Status: Chronic (4) Gastroesophageal reflux disease: Status: Acute (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 Does not appear to need stress dose steroids. Status: Acute Plan Plan: admit to observation; full liquid diet; ADAT; IVF; pain control; MRI abdomen tomorrow and GI outpatient referral Code Status-Full DVT ppx on warfarin will check INR; already took dose today
[2024-01-18 18:31] VITALS: BP 167/92; PULSE 68; RESP 16; TEMP 37.2; O2SAT 94; BMI 27.8
[2024-01-18] MEDS: LACTATED RINGERS 1000 ML 1,000 ML 500 ML IV (18:57)
[2024-01-18 19:00] VITALS: BP 103/57; PULSE 69; RESP 16; TEMP 37.1; O2SAT 98
[2024-01-18 20:18] LABS: INR 2.84 (0.91-1.10)
[2024-01-18] MEDS: LACTATED RINGERS 1000 ML 1,000 ML 125 ML IV (22:52)
--- NOTE | 2024-01-18 23:05 | PC.NURSE ---
End of Shift: Patient admitted to 255. Pleasant and cooperative. Afebrile. Rating pain in abdomen 0-3/10 and denies need for PRN pain medication. Tolerating full liquid diet with no nausea or increase in pain. Up to chair and bathroom with SBA and cane. Chronic wound to left lower extremity. Dressing C/D/I. Patient changes dressing daily and goes to the wound care center weekly.
[2024-01-18 23:10] VITALS: BP 151/60; PULSE 57; RESP 16; TEMP 36.2; O2SAT 95
[2024-01-19 04:20] VITALS: BP 163/79; PULSE 63; RESP 16; O2SAT 95
[2024-01-19] MEDS: OMEPRAZOLE 20 MG CAPSULE DR 40 MG PO (06:01)
[2024-01-19] MEDS: LEVOTHYROXINE 112 MCG TABLET PO (06:01)
[2024-01-19] MEDS: LACTATED RINGERS 1000 ML 1,000 ML 125 ML IV (06:03)
--- NOTE | 2024-01-19 06:34 | PC.NURSE ---
End of shift [id number]: A&O pleasant and cooperative. VSS w/ sats>90% on RA. Denies pain. tolerating fluids. denies n/v. Up with A1 walker and GB. Using call light appropriately.
[2024-01-19 06:38] LABS: Hemoglobin* 11.7 gm/dL (12.0-16.0); Mean Corpuscular HGB Conc 32 gm/dL (32-36); Mean Corpuscular Hemoglobin 32 pg (26-34); Mean Corpuscular Volume 100 fL (80-100); Platelet Count* 194 K/uL (140-440); Red Blood Count 3.69 m/uL (4.00-5.20); White Blood Count* 9.17 K/uL (4.50-11.00)
[2024-01-19 06:40] LABS: Slide Review Reflex No
[2024-01-19 07:17] LABS: Chloride* 107 mmol/L (96-114); Potassium* 3.8 mmol/L (3.6-5.1); Sodium* 136 mmol/L (135-149)
[2024-01-19 07:20] LABS: Anion Gap 5 mEq/L (7-15); Blood Urea Nitrogen* 15 mg/dL (7-30); Carbon Dioxide* 24 mmol/L (20-32); Creatinine* 0.7 mg/dL (0.5-1.5); Est. Creatinine Clearance* 41.79; Estimated Glomerular Filt Rate 86 ml/min; Glucose* 68 mg/dL (60-115); Lipase* 140 U/L (23-300)
[2024-01-19 07:21] LABS: Calcium* 8.5 mg/dL (8.4-10.6)
[2024-01-19 07:46] LABS: Albumin* 3.5 g/dL (3.3-5.0)
[2024-01-19 07:49] LABS: Aspartate Amino Transferase* 27 U/L (12-35); Bilirubin Direct* 0.3 mg/dL (0.0-0.5); Bilirubin Total* 0.6 mg/dL (0.1-1.5); Total Protein* 6.1 g/dL (6.0-8.3)
[2024-01-19 07:50] LABS: Alanine Aminotransferase* 13 U/L (4-35); Alkaline Phosphatase* 58 U/L (40-150)
[2024-01-19 08:27] VITALS: BP 174/74; PULSE 73; RESP 18; TEMP 37.2; O2SAT 96
[2024-01-19] MEDS: dilTIAZem 240 MG CAP (CD) PO (08:35)
[2024-01-19 10:55] VITALS: BP 172/73; PULSE 68; RESP 16; TEMP 37.1; O2SAT 97
--- NOTE | 2024-01-19 13:18 | P.DS_ITS ---
DS: Providers Provider Date Seen: 01/19/24 Date of admission: 01/18/24 17:34 Primary care physician: Jose Napier PA-C Admitting Clinician: Anmol Chacon MD Attending Physician on discharge: Anmol Chacon MD Date of Discharge: 01/19/24 DS: Diagnosis Discharge Diagnosis (1) Pancreatitis: Status: Acute Problem details: acute pancreatitis; etiology unclear; presumed idiopathic no alcohol hx; possible underlying malignancy, will need GI referral (2) Hypertension: Status: Chronic (3) Gastroesophageal reflux disease: Status: Acute (4) long-term current use of anticoagulants with INR goal of 2.0-3.0: Status: Acute Problem details: h/o PE; MV insufficiency (5) Raynaud's disease: Status: Acute Problem details: Managed by Rheumatology, Dr Coppola (6) Chronic wound of extremity: Status: Acute (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 Does not appear to need stress dose steroids. DS: Summary Hospital Course Hospital Course: Hospitalist- H&P: HPI History of Present Illness Date Seen: 01/18/24 Chief complaint: Abdominal pain Narrative: Patsy Beltrán is a 83 year old female presenting for evaluation of abdominal pain. The patient developed worsening epigastric and RUQ abdominal pain that was worsening since yesterday evening. No vomiting or diarrhea. Today she was seen at Urgent Care and referred to ED. In the ED CT AP showed findings consistent with acute pancreatitis ( Acute interstitial edematous pancreatitis). Lipase is 374. She currently is having minimal abdominal pain. She denies alcohol use. CT AP 1. Acute interstitial edematous pancreatitis. No peripancreatic fluid collections. 2. 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 3. There are associated inflammatory changes of the duodenum secondary to inflammation of the pancreas. 4. Uniformly increased attenuation of the bilateral renal collecting systems , may represent blood products within the collecting system, to correlate with urinalysis. Additional consideration includes a urothelial malignancy. When patient`s clinical course improves, would recommend dedicated CT or MR with a renal protocol for further assessment. Intermittent bleeding HOSPITAL COURSE The patient was admitted under observation status. She was given IVF, required minimal analgesia. Her diet was advanced and lipase normalized. Etiology of pancreatitis is presumed to be idiopathic. She did have abnormal CT and plan was to obtain MR abdomen renal protocol but patient requested discharge before MRI could be completed. The patient was counseled that this should be ordered at her follow up clinic appointment. PCP Recommendations 1) Obtain MR with renal protocol for abnormal CT CT showed Uniformly increased attenuation of the bilateral renal collecting systems , may represent blood products within the collecting system, to correlate with urinalysis. Additional consideration includes a urothelial malignancy. When patient`s clinical course improves, would recommend dedicated CT or MR with a renal protocol for further assessment. 2. Outpatient GI referral Cystic lesion in the pancreatic tail measuring 1.2 centimeters, incompletely characterized on this exam but favored to represent a side branch IPMN. Status at Discharge Overall status at discharge: patient is back to baseline Time Spent with Patient Time attestation: Total time spent providing and/or coordinating discharge services: Time spent: Greater than 30 minutes Exam Narrative: Exam Narrative: Gen: no acute distress HEENT: NCAT EOMI mmm Neck: Supple CV: RRR normal s1 s2 Lungs: CTAB Abd: Soft,nt, nd Neuro: Alert, oriented, CN grossly intact; nonfocal screening?exam Psych: appropriate affect MSK: age appropriate muscle mass Skin; Warm, dry no rash on face Const: Vital Signs, click to edit/add: Vital Signs - 24 hr 01/18/24 15:08 01/18/24 18:31 01/18/24 19:00 Temperature 99.0 F 98.7 F Pulse Rate [Right Pulse Oximeter] 68 69 Respiratory Rate 16 16 Blood Pressure 145/64 H Blood Pressure [Ri ght Arm] 167/92 H 103/57 L Pulse Oximetry 94 98 Oxygen Delivery Me thod Room Air Room Air 01/18/24 23:10 01/19/24 04:20 01/19/24 08:27 Temperature 97.2 F L 99.0 F Pulse Rate [Right Pulse Oximeter] 57 L 63 73 Respiratory Rate 16 16 18 Blood Pressure Blood Pressure [Ri ght Arm] 151/60 H 163/79 H 174/74 H Pulse Oximetry 95 95 96 Oxygen Delivery Me thod Room Air Room Air Room Air 01/19/24 10:55 Temperature 98.8 F Pulse Rate [Right Pulse Oximeter] 68 Respiratory Rate 16 Blood Pressure Blood Pressure [Ri ght Arm] 172/73 H Pulse Oximetry 97 Oxygen Delivery Me thod Room Air DS: Data Data Completed and Pending Labs on day of discharge: Labs from last 24 hours 01/19/24 01/19/24 01/18/24 07:25 06:09 18:30 WBC 9.17 RBC 3.69 L Hgb 11.7 L Hct 37.0 MCV 100 MCH 32 MCHC 32 RDW Coeff of Traci Plt Count 194 Neut % (Auto) Lymph % (Auto) [place] % (Auto) Eos % (Auto) Baso % (Auto) Neut # (Auto) Lymph # (Auto) [place] # (Auto) Eos # (Auto) Baso # (Auto) Abs Immat Gran (auto) Imm/Tot Granulo (auto) INR 2.84 H Sodium 136 Potassium 3.8 Chloride 107 Carbon Dioxide 24 Anion Gap 5 L BUN 15 Creatinine 0.7 Estimated Creat Clear 41.79 Estimated GFR 86 Glucose 68 Calcium 8.5 Total Bilirubin 0.6 Direct Bilirubin 0.3 AST 27 ALT 13 Alkaline Phosphatase 58 Total Protein 6.1 Albumin 3.5 Lipase 140 Lab Acknowledgement Test Added 01/18/24 14:10 WBC 11.20 H RBC 4.25 Hgb 13.3 Hct 42.3 MCV 100 MCH 31 MCHC 31 L RDW Coeff of Traci 14.1 Plt Count 246 Neut % (Auto) 83.5 H Lymph % (Auto) 6.5 L [place] % (Auto) 8.2 Eos % (Auto) 1.1 Baso % (Auto) 0.2 Neut # (Auto) 9.40 H Lymph # (Auto) 0.70 L [place] # (Auto) 0.90 Eos # (Auto) 0.10 Baso # (Auto) 0.00 Abs Immat Gran (auto) 0.10 Imm/Tot Granulo (auto) 0.5 INR Sodium 139 Potassium 4.0 Chloride 104 Carbon Dioxide 31 Anion Gap 4 L BUN 25 Creatinine 1.0 Estimated Creat Clear 42.43 Estimated GFR 56 Glucose 89 Calcium 9.5 Total Bilirubin 0.6 Direct Bilirubin 0.2 AST 28 ALT 16 Alkaline Phosphatase 64 Total Protein 7.4 Albumin 4.4 Lipase 374 H Lab Acknowledgement Discharge Plan Discharge Disposition: Home, Self-Care Date of Admission: 01/18/24 17:34 Attending Provider on Discharge: Anmol Chacon Primary Care Provider: Napier,Mukti B Condition: Unchanged Anticipated Discharge Date/Time: 01/19/24 16:00 Discharge Medications: Continued calcium carbonate 600 mg calcium (1,500 mg) tablet 600 mg PO DAILY Qty: 90 4RF lorazepam 0.5 mg tablet 0.25 - 0.5 mg PO DAILY PRN (Reason: anxiety) Qty: 5 0RF Rx Instructions: 5 tablets must last one year levothyroxine 112 mcg tablet 112 mcg PO .COMPLEX Patient Comments: SKIP TUESDAY Rx Instructions: 112 mcg orally x 6 days/week; multivitamin Tablet 1 tab PO DAILY Lactobacillus acidophilus 1 billion cell capsule 10 mg PO DAILY betamethasone, augmented 0.05 % cream 1 applic topical DAILY PRN gabapentin 6%/ketamine 8%/liodcaine 2.5% liposomal cream with baclofen 2% cream See Rx Instructions topical .four time daily PRN Rx Instructions: ONE APPLICATION topically FOUR TIME DAILY PRN; hand faxed rx to [facility] [phone] 60 grams with 1 refill sent to scanning diltiazem HCl 240 mg capsule,extended release 24hr 240 mg PO DAILY Gemtesa 75 mg tablet 75 mg PO DAILY acetaminophen 500 mg capsule 500 - 1,000 mg PO Q6H MDD 4000mg per day PRN (Reason: pain) Qty: 100 0RF clobetasol 0.05 % ointment 1 g topical 2XW PRN (Reason: lichen sclerosis) furosemide 20 mg tablet 20 mg PO DAILY PRN (Reason: edema) omeprazole 40 mg capsule,delayed release(DR/EC) 40 mg PO DAILY warfarin 2.5 mg tablet 1.25 - 2.5 mg PO DAILY Protocol: Dose Management Condition: Tuesday Dose/Route: 2.5 mg Instruction: 1 x 2.5 mg tablet Condition: Tuesday Dose/Route: 1.25 mg Instruction: 0.5 x 2.5 mg tablets Condition: Tuesday Dose/Route: 2.5 mg Instruction: 1 x 2.5 mg tablet Condition: Tuesday Dose/Route: 1.25 mg Instruction: 0.5 x 2.5 mg tablets Condition: Dose/Route: 2.5 mg Instruction: 1 x 2.5 mg tablet Condition: Tuesday Dose/Route: 2.5 mg Instruction: 1 x 2.5 mg tablet Condition: Tuesday Dose/Route: 2.5 mg Instruction: 1 x 2.5 mg tablet Protocol Text: Adjustment Start Date: Tuesday01/16/24 INR Value: 4.0 INR Date: 01/16/24 Recheck Date: 01/23/24 Rx Instructions: OF 01/15 DOSE IS: 1.25 mg on Tuesday, Tuesday 2.5 mg all other days prednisone 10 mg tablet 10 mg PO Q OTHER DAY Qty: 45 3RF triamcinolone acetonide 0.1 % cream 1 applic topical BID PRN (Reason: rash) Qty: 80 1RF fosfomycin tromethamine 3 gram packet 1 packet PO Q3D PRN (Reason: bladder infections) Qty: 2 6RF sennosides [Senna Lax] 8.6 mg tablet 8.6 mg PO BID PRN (Reason: constipation) Qty: 180 1RF Prolia 60 mg/mL syringe 60 mg subcut [id number] Qty: 1 0RF pilocarpine HCl 5 mg tablet 5 mg PO TID Qty: 270 4RF Discharge Orders: Discharge Order (Routine); Ordered 01/19/24 Ordered By: Anmol Chacon Patient Education: Pancreatitis (DC) Activity Level: No Restrictions Discharge Diet: Regular Follow Up Appointments: Julissa Bradshaw CNP [Staff Physician] - 01/25/24 3:15 pm ([facility] for follow-up and order MRI with a renal protocol routine ) Jose Napier PA-C [Primary Care Provider] - ( ) Forms: [facility] Info Instructions
--- NOTE | 2024-01-19 17:05 | PC.NURSE ---
Discharge Note: The patient discharged home with no reports of pain. All discharge information was provided and explained to the patient. Recommended to take tylenol when pain is increased. Sri FRIAS BSN
== END 2024-01-19 15:30 | disposition home or self-care (01) ==
LOC: ED 17:06 → MEDSURG 17:37
PROVIDERS: Family Medicine; Admitting Provider Hospitalist; Emergency Provider Emergency Medicine Emergency Medical Services; PCP Physician Assistant Medical; Visit Provider Hospitalist
DX: K85.90 Acute pancreatitis without necrosis or infection, unspecified (principal); R74.8 Abnormal levels of other serum enzymes; Z79.01 Long term (current) use of anticoagulants; E03.9 Hypothyroidism, unspecified; E78.5 Hyperlipidemia, unspecified; I10 Essential (primary) hypertension; I73.00 Raynaud's syndrome without gangrene; K21.9 Gastro-esophageal reflux disease without esophagitis; F41.9 Anxiety disorder, unspecified; M81.0 Age-related osteoporosis without current pathological fracture; Z79.52 Long term (current) use of systemic steroids; R10.11 Right upper quadrant pain; M35.00 Sjogren syndrome, unspecified; L97.929 Non-pressure chronic ulcer of unspecified part of left lower leg with unspecified severity; Z96.612 Presence of left artificial shoulder joint; Z96.641 Presence of right artificial hip joint; Z90.49 Acquired absence of other specified parts of digestive tract; Z86.39 Personal history of other endocrine, nutritional and metabolic disease; Z87.81 Personal history of (healed) traumatic fracture; Z86.711 Personal history of pulmonary embolism; Z86.010 Personal history of colon polyps; Z98.890 Other specified postprocedural states
CPT/HCPCS: 36415; 74177; 76705; 80048; 80076; 83690; 85025; 85027; 85610; 93005; 96360; 96361; 99283; 99284; 99285; A9270; G0378; J7030; J7120; Q9967

== ENCOUNTER 2024-01-20 09:30 | Outpatient (CLI) | payer OTHER, SELFPAY | END 2024-01-20 09:31 | disposition home or self-care (01) | LOC: WOUND 09:30 | PROVIDERS: PCP Physician Assistant Medical; Visit Provider Nurse Practitioner Family | DX: I87.2 Venous insufficiency (chronic) (peripheral) (principal); I73.9 Peripheral vascular disease, unspecified; L97.322 Non-pressure chronic ulcer of left ankle with fat layer exposed; R73.03 Prediabetes; Z79.52 Long term (current) use of systemic steroids | CPT/HCPCS: G0463 ==

== ENCOUNTER 2024-01-27 09:56 | Outpatient (CLI) | payer OTHER, SELFPAY ==
--- OUTSIDE RECORDS SUMMARY | 2024-01-27 09:58 | XMS_ITS | Clinical Summary ---
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 09/27 Prediabetes [...] Date Anticoagulation monitoring, INR range 2-3 [Z79.01]; [place] Target 2.5-3.0 12/06/2016 1 Pessary maintenance 02/25/2016 09/28/19 20 Anticoagulation monitoring, goal range 2.0-2.6 09/19/2013 01/09/2018 Abnormal stress test 11/17/2010 011 Routine general medical exam ination at a health care facility 07/12/2009 09/28/2019 Overview: Normal CT angiogram 11/2010 Hip pain 05/06/2008 07/09/2009 Onychomycosis 05/06/2008 08/27/2008 HX OF VENOUS THROMBOSIS AND EMBOLISM 11/09/2006 12/06/2012 Bilateral pulmonary embolism 10/11/2006 11/18/2017 AFTERCARE, LONG-TERM USE, IA DICATIONS NEC-PLAQUENIL 10/22/2003 Encounters Date Type Department Care Team Description 01/06/2024 Telephone [facility] [address] [place] [address] Charlotte Springer MD Questions (Concern about wound) 12/30/2023 Transcribe Orders [facility] [address] [place] [address] Charlotte Springer MD 12/12/2023 Lab Requisition [facility] [phone] Unknown, Doctor 12/09/2023 Telephone [facility] [address] [place], [place] [id number] Charlotte Springer MD Care Coordination 12/05/2023 11:00 AM CDT Office Visit [facility] [address] [place] [address] Charlotte Springer MD Follow Up (LLE wound follow up ) 12/05/2023 8:56 AM CDT - 12/05/2023 11:59 PM CDT Hospital Encounter [facility] [address] [place] [address] Charlotte Springer MD Venous insufficiency; Venous stasis ulcer of ankle, left (HC) 12/05/2023 Travel 11/23/2023 9:30 AM CDT Office Visit [facility] [address] [place] [address] Charlotte Springer MD Ankle Pain/problem (L medial malleolar ulcer) 11/23/2023 6:47 AM CDT - 11/23/2023 11:59 PM CDT Hospital Encounter [facility] [address] [place] [address] Charlotte Springer MD PAD (peripheral artery disease) (HC) 11/22/2023 Travel from Last 3 Months Immunizations Name Administration Dates Next Due AMB INFLUENZA IIV3 (AGE 65+ YRS) PF (Flu Clinic Only) 03/23/2017 AMB Influenza, IIV3 (Age >=3 years) Preserve Free (Flu Clinic Only) 04/08/2009 AMB Influenza, IIV3 (Age >=3 years)(Flu Clinic Only) 04/06/2013,04/16/2011,04/24/2008 COVID-19 vaccine ([facility] [employer] 30mcg/0.3mL) PF MDV 09/02/2020,08/12/2020 Influenza A (H1N1), [...] Care Team (Late st Contact Info) Description 02/16/2024 7:00 AM CDT Appointment [facility] [address] [place] [address] 02/16/2024 8:00 AM CDT Procedure Only [facility] [address] [place] [address] Charlotte Springer MD [address] [place] [address] 02/17/2024 11:30 AM CDT Appointment [facility] [address] [place] [address] 02/28/2024 10:00 AM CDT Office Visit [facility] [address] [place], [place] [phone] [place] [address] [place] [address] 03/01/2024 3:30 PM CDT Office Visit [facility] [address] [place], [place] [phone] Olvin Haji MD [address] [place] [address] Health Maintenance Due Date Last Done Comments [...] 01/13/2016, 12/18/2010 Medical Devices Implanted Type Area Handle Turner Device Identifier Shelf Expiration Date Model / Serial / Lot Lead Kit 4.32mm Spacing 28cm Length Interstim - [id number] Implanted:Qty: 1 on 04/01/2020 by Charlotte Smith MD at [facility] N/A: Sacrum [employer] Pain Therapy 09/30/2021 [id number] / / [id number] Stimulator 7.7mm 14cc Interstim Ii - [id number] Implanted:Qty: 1 on 04/01/2020 by Charlotte Smith MD at [facility] N/A: Sacrum [employer] Pain Therapy 03/31/2021 [id number] / [id number] / Description:PIN [id number] Procedures Procedure Name Priority Date/Time Associated Diagnosis [...] 2 SITES AXIAL Routine 07/02/2019 11:48 AM COMFORT FILLER Osteopenia of multiple sites from Last 3 Months or Most Recently Relevant to Health Maintenance Results * (ABNORMAL) REFERRAL ID/SUSC,NONURINE (12/08/2023 11:47 AM CDT) CULTURE RESULT(A) 12/17/2023 2:44 PM CDT [facility] [employer] CULTURE 1+ Acinetobacter species 12/17/2023 2:44 PM CDT [facility] Other (Left Leg) Client Collect / Unknown 12/08/2023 11:47 AM CDT 12/12/2023 10:11 PM CDT Narrative Organism Antibiotic Method Susceptibility Acinetobacter species TRIMETHOPRIM/SULF S Acinetobacter species GENTAMICIN S Acinetobacter species CEFTAZIDIME R Acinetobacter species LEVOFLOXACIN S Acinetobacter species CIPROFLOXACIN I Acinetobacter species PIPERACILLIN/TAZO I Acinetobacter species AMPICILLIN/SULBACTAM S Acinetobacter species TOBRAMYCIN S Acinetobacter species MEROPENEM S Doctor Unknown [email or web address] [address] [place] [address], * US VENOUS INSUFFICIENCY LOWER EXTREMITY BILATERAL [...] VENOUS INSUFFICIENCY LOWER EXTREMITY BILATERAL LOCATION: [facility] DATE: 12/05/2023 INDICATION: Lower [...] when greater than 600 ms flow reversal. Manager Bench vein reflux reported as greater than 350 [...] VENOUS INSUFFICIENCY LOWER EXTREMITY BILATERAL LOCATION: [facility] DATE: 12/05/2023 INDICATION: Lower [...] reported when greater than 600ms flow reversal. Manager Bench vein reflux reported as greater than 350 [...] VASCULAR ULTRASOUND REPORT RODERICK HEATON Accession#: ?? [id number] : ?1940 ??Study Date: ?? 11/23/2023 7:17:22 AM Age: ?83 years ?? Tech: ? KBN/CRK Gender: F ?Referring MD: CHARLOTTE SPRINGER Site: [facility] Study performed: ?Lower extremity resting MINOR, [...] ? Index +-----+ +--------+ +-----+ 1.24 ?241 ?MARKETING RESEARCH COORDINATOR ?107 ? 0.55 +-----+ +--------+ +-----+ 1.23 ?238 ?DPA ?147 ? 0.76 +-----+ +--------+ +-----+ 0.63 ?122 ? Digit 1 ?45 ? 0.23 +-----+ +--------+ +-----+ Wang Dela Cruz MD. Electronically signed on 11/23/2023 12:17:56 PM This study was performed and interpreted by a service accredited by the Intersocietal Accreditation Commission (IAC/Vascular), [email or web address] Report generated by Kiddie Kist. ??Final ?? Procedure Note Wang Dela Cruz MD - 11/23/2023 VASCULAR ULTRASOUND REPORT RODERICK HEATON : 1940 Study Date: 11/23/2023 7:17:22 AM Age: 83 years Tech: ARISTIDES/JOHNNY Gender: F Referring MD: CHARLOTTE SPRINGER Site: [facility] Study performed: Lower extremity resting MINOR, [...] 194 Index +-----+ +--------+ +-----+ 1.24 241 MARKETING RESEARCH COORDINATOR 107 0.55 +-----+ +--------+ +-----+ 1.23 238 DPA 147 0.76 +-----+ +--------+ +-----+ 0.63 122 Digit 1 45 0.23 +-----+ +--------+ +-----+ Wang Dela Cruz MD. Electronically signed on 11/23/2023 12:17:56 PM This study was performed and interpreted by a service accredited by theIntersocietal Accreditation Commission (IAC/Vascular),[email or web address] Report generated by Kiddie Kist. Final Charlotte Springer MD US * US ARTERIAL LOWER EXTREMITY BILATERAL (11/23/2023 8:37 AM CDT) Anatomical Region Laterality Modality LEGS, LEG L, LEG R Ultrasound 11/23/2023 7:26 AM CDT Narrative 11/23/2023 12:22 PM CDT VASCULAR ULTRASOUND REPORT RODERICK HEATON Accession#: ?? [id number] : ?1940 ??Study Date: ?? 11/23/2023 7:26:56 AM Age: ?83 years ?? Tech: ? KBN/CRK Gender: F ?Referring MD: CHARLOTTE SPRINGER Site: [facility] Study performed: ?Lower extremity duplex US, [...] DST ? 104 ? +--------+ + +-----+ CUSTOMER TECHNICAL SERVICES MANAGER DST ? 111 ? +--------+ + +-----+ PFA ? 88 ? +--------+ + +-----+ SFA PRX ? 111 ? +--------+ + +-----+ SFA MID ? 66 ? +--------+ + +-----+ SFA DST ? 415 ? 64 ? 6.5 ?? +--------+ + +-----+ COLLIN PRX ? 101 ? +--------+ + +-----+ COLLIN DST ? 41 ? +--------+ + +-----+ MARKETING RESEARCH COORDINATOR DST ? 80 ? +--------+ + +-----+ KAREN DST ? 38 ? +--------+ + +-----+ LAXMI DST -179 retro ? +--------+ + +-----+ DPA ?-34 retro ? +--------+ + +-----+ +--------+ + +-----+ LEFT ? Velocity cm/s PRE ? Ratio ? Velocity cm/s ? Phasicity ? +--------+ + +-----+ EIA DST ? 100 ? +--------+ + +-----+ CUSTOMER TECHNICAL SERVICES MANAGER DST ? 98 ? +--------+ + +-----+ PFA ? 73 ? +--------+ + +-----+ SFA PRX ? 100 ? +--------+ + +-----+ SFA MID ? 52 ? +--------+ + +-----+ SFA DST ? 44 ? +--------+ + +-----+ COLLIN PRX ? 674 ? 55 ? 12.3 +--------+ + +-----+ COLLIN DST ? 27 ? +--------+ + +-----+ MARKETING RESEARCH COORDINATOR DST ? 11 ? +--------+ + +-----+ [...] Accreditation Commission (IAC/Vascular), [email or web address] Report generated by Kiddie Kist. ??Final ?? Procedure Note Wang Dela Cruz MD - 11/23/2023 VASCULAR ULTRASOUND REPORT RODERICK HEATON : 1940 Study Date: 11/23/2023 7:26:56 AM Age: 83 years Tech: ARISTIDES/JOHNNY Gender: F Referring MD: CHARLOTTE SPRINGER Site: [facility] Study performed: Lower extremity duplex US, [...] +-----+ EIA DST 104 +--------+ + +-----+ CUSTOMER TECHNICAL SERVICES MANAGER DST 111 +--------+ + +-----+ PFA 88 +--------+ + +-----+ SFA PRX 111 +--------+ + +-----+ SFA MID 66 +--------+ + +-----+ SFA DST 415 64 6.5 +--------+ + +-----+ COLLIN PRX 101 +--------+ + +-----+ COLLIN DST 41 +--------+ + +-----+ MARKETING RESEARCH COORDINATOR DST 80 +--------+ + +-----+ KAREN DST 38 +--------+ + +-----+ LAXMI DST -179 retro +--------+ + +-----+ DPA -34 retro +--------+ + +-----+ +--------+ + +-----+ LEFT Velocity cm/s PRE Ratio Velocity cm/s Phasicity +--------+ + +-----+ EIA DST 100 +--------+ + +-----+ CUSTOMER TECHNICAL SERVICES MANAGER DST 98 +--------+ + +-----+ PFA 73 +--------+ + +-----+ SFA PRX 100 +--------+ + +-----+ SFA MID 52 +--------+ + +-----+ SFA DST 44 +--------+ + +-----+ COLLIN PRX 674 55 12.3 +--------+ + +-----+ COLLIN DST 27 +--------+ + +-----+ MARKETING RESEARCH COORDINATOR DST 11 +--------+ + +-----+ LAXMI DST [...] theIntersocietal Accreditation Commission (IAC/Vascular),[email or web address] Report generated by Kiddie Kist. Final Charlotte Springer MD US * (ABNORMAL) XR DXA BONE DENSITY 2 SITES AXIAL (07/02/2019 11:48 AM COMFORT FILLER) Anatomical Region Laterality Modality Spine, HIPS, HIPL, HIPR Other Narrative 07/06/2019 11:01 AM COMFORT FILLER Please see scanned document for results of this study. Rakel Connor DO DEXA from Last 3 Months or Most Recently Relevant to Health Maintenance Advance Directives Documents on File Type Date Recorded Patient Social Contact Worker Expl anation Healthcare Directive 07/19/2016 2:58 PM [...] 8:45 AM 09/01/2016 4:04 PM Care Teams Diagnostic Assistant Relationship Specialty Start Date End Date Maritza Rendon DO [address] [place] [address] PCP - General Family Practice 12/30/22 Kd Restrepo MD Endocrinology 11/24/11 Cody Veliz MD Rheumatology 11/24/11
--- OUTSIDE RECORDS SUMMARY | 2024-01-27 09:59 | XMS_ITS | Data Portability ---
Author Organization [facility], [facility] Address [address] [place] Lopez [address] Care Team Providers Care Groundhand Name Role Phone [facility] Primary Care Provider Assessment No assessment [...] By Organization Details Last Modified Time 09/14/2021 [id number] Test each progra m for at least 2 weeks, adjusting amplitude as needed. May remain on a program as long as it is effective. Return as needed for reprogramming. [email or web address] Not available 09/14/2021 10:07:26 Patient states t hat Gemtessa samples were very effective, but it is not covered by her insurance. She was also given a rx for Myrbetriq. [email or web address] Not available 09/14/2021 10:08:49 11/12/2021 [id number] Over Active Blad betty (OAB): -Managed with [...] minutes [email or web address] Not available 11/12/2021 11:46:55 04/09/2022 [id number] Test each progra m for at least 2 weeks, adjusting amplitude as needed. May remain on a program as long as it is effective. Return as needed for reprogramming. [email or web address] Not available 04/09/2022 12:34:22 Patient states t hat Gemtesa samples were effective, but the rx was too expensive, so she stopped taking. She would like to try the Gemtesa again, but wonders of it is ok t take every other day, to spread the prescription out, and decrease the expense. I will ask Afsaneh Bui PAC. [email or web address] Not available 04/09/2022 12:37:43 12/06/2022 [id number] Test each progra m for at least 2 weeks, adjusting amplitude as needed. May remain on a program as long as it is effective. Return as needed for reprogramming. [email or web address] Not available 12/06/2022 10:55:41 04/28/2023 [id number] Over Active Blad betty (OAB): -Managed with [...] TUS color -advantus YELLOW yellow Not Available [facility] [address] [facility] [address], [place], [address], 09/14/2021 10:41:46 09/15/19 22 09/14/2021 UA DIP CS ADVAN TUS appearance -advantus CLEAR clear Not Available [facility] [address] [facility] [address], [place], [address], 09/14/2021 10:41:46 09/15/19 22 09/14/2021 UA DIP CS ADVAN TUS glucose -advantus NEGATI VE mg/dL negati ve Not Available [facility] [address] [facility] [address], [place], [address], 09/14/2021 10:41:46 09/15/19 22 09/14/2021 UA DIP CS ADVAN TUS bilirubin -advantus NEGATI VE negati ve Not Available [facility] [address] [facility] [address], [place], [address], 09/14/2021 10:41:46 09/15/19 22 09/14/2021 UA DIP CS ADVAN TUS ketones -advantus NEGATI VE mg/dL negati ve Not Available [facility] [address] [facility] [address], [place], [address], 09/14/2021 10:41:46 09/15/19 22 09/14/2021 UA DIP CS ADVAN TUS sp. gravity -advantus 1.010 1.010- 1.025 Not Available [facility] [address] [facility] [address], [place], [address], 09/14/2021 10:41:46 09/15/19 22 09/14/2021 UA DIP CS ADVAN TUS pH -advantus 6.0 5.0-8. 0 Not Available [facility] [address] [facility] [address], [place], [address], 09/14/2021 10:41:46 09/15/19 22 09/14/2021 UA DIP CS ADVAN TUS protein -advantus NEGATI VE mg/dL negati ve Not Available [facility] [address] [facility] [address], [place], [address], 09/14/2021 10:41:46 09/15/19 22 09/14/2021 UA DIP CS ADVAN TUS urobilinogen -advantus 0.2 normal Not Available [facility] [address] [place] [address] [address], [place], [address], 09/14/2021 10:41:46 09/15/19 22 09/14/2021 UA DIP CS ADVAN TUS nitrites -advantus NEGATI VE negati ve Not Available [facility] [address] [place] [address] [address], [place], [address], 09/14/2021 10:41:46 09/15/19 22 09/14/2021 UA DIP CS ADVAN TUS blood -advantus SMALL negati ve abnormal Not Available [facility] [address] [place] [address] [address], [place], [address], 09/14/2021 10:41:46 09/15/19 22 09/14/2021 UA DIP CS ADVAN TUS leukocytes -advantus NEGATI VE negati ve Not Available [facility] [address] [place] [address] [address], [place], [address], 09/14/2021 10:41:46 09/15/19 22 09/14/2021 UA DIP CS ADVAN TUS performed by Bibi Ruiz Not Available [facility] [address] [place] [address] [address], [place], [address], 09/14/2021 10:41:46 09/15/19 22 09/14/2021 UA DIP CS ADVAN TUS total urine volume (mL) 20cc /mL Not Available [facility] [address] [place] [address] [address], [place], [address], 09/14/2021 10:41:46 09/15/19 22 09/14/2021 UA MICRO SCOPI C U-WBC 0 - 2 [hpf] 0 - 2 Not Available [facility] [address] [place] [address] [address], [place], [address], 09/14/2021 10:41:47 09/15/19 09/14/2021 UA MICRO SCOPI C U-RBC 0 - 2 [hpf] 0 - [address] [facility] [address] [facility] [address], [place], [address], 09/14/2021 10:41:47 09/15/19 22 09/14/2021 UA MICRO SCOPI C bacteria Small [hpf] negati ve abnormal Not Available [facility] [address] [facility] [address], [place], [address], 09/14/2021 10:41:47 09/15/19 22 09/14/2021 UA MICRO SCOPI C squamous epi Small /lpf negati ve,sma ll Not Available [facility] [address] [facility] [address], [place], [address], 09/14/2021 10:41:47 Result Notes None recorded. Problems Name Status Onset Date Resolution Date Notes Provider Name and Address Organization Details Recorded Time Chronic cystitis Active 2018 N30.20 : Chronic cystitis Not Available [facility] 0 23:40:26 Overactive urinary bladder Active 2018 N32.81 : Bladder muscle dysfunction - overactive Not Available [facility] 0 23:40:26 Benign neoplastic disease Active 2019 Daphne felix [facility] 0 09:58:09 Tear film insufficiency Active 2019 Daphne felix [facility] 0 09:58:21 Gastroesophageal reflux disease Active 2019 Daphne felix, [facility] 0 09:58:28 Hyperlipidemia Active 2019 Daphne felix, [facility] 0 09:58:36 Heart disease Active 2022 Radhika felix, [facility] 3 11:27:33 Problem Notes None recorded. Procedures Surgical History Date Name Laterality Status Provider Name and Address Organization Details Recorded Time 04/28/20 23 Sacral neuromodulation w/o reprogramming completed ELMA Blanco [address] [facility],[address], [place], [address], [facility] 04/28/2023 11:57:28 04/28/20 23 Bladder Scan completed Radhika Mathis null, [facility] 04/28/2023 11:36:21 12/07/19 23 Sacral neuromodulation w/o reprogramming completed Demetri Bosch null, [facility] 12/06/2022 11:08:45 04/09/20 22 Sacral Stimulator Reprogramming completed Demetri Bosch null, [facility] 04/09/2022 12:49:34 09/15/19 22 Bladder Scan completed Merry Ocampo null, [facility] 09/14/2021 10:25:15 09/15/19 22 Sacral neuromodulation w/o reprogramming completed Demetri Bosch null, [facility] 09/14/2021 10:15:12 08/03/19 22 Past Data Reviewed completed Charlotte Smith MD [address] [facility],[address], [place], [address], [facility] 08/03/2021 08:29:52 08/03/19 22 Bladder Scan completed Usha Corado null, [facility] 08/03/2021 11:50:03 11/27/19 21 Sacral Stimulator Reprogramming completed Demetri Bosch null, [facility] 11/27/2020 12:44:01 09/17/19 20 Implant neuroelectrodes completed Not Available [facility] 12/13/2019 18:11:39 11/29/19 19 Insert bladder catheter completed Not Available [facility] 12/13/2019 18:11:39 11/14/19 15 Colonoscopy completed Lucinda Nuñez null, [facility] 11/11/2020 11:57:08 11/29/19 09 Total hip arthroplasty completed Not Available [facility] 12/13/2019 18:11:39 11/29/19 00 Unlisted procedure breast completed Not Available [facility] 12/13/2019 18:11:39 Appendectomy add-on completed Not Available [facility] 12/13/2019 18:11:39 Imaging Results None recorded. Procedure Notes None recorded. Medical Equipment None Reported. Allergies Allergen ID Allergen Name Allergen Category Reaction Reaction Severity Criticality Documentation Date Start Date Code Code System Note Provider Name and Address Organization Details Recorded Time 618681 Nitroimid azole (substanc e) medicatio n Not available Not available Not available 12/12/2019 25498 5001 SNOMED Not Available [facility] 0 23:50:45 125971 sulindac medicatio n Not available Not available Not available 12/12/2019 37166 RxNorm Not Available [facility] 0 23:50:45 838923 Medicinal product containin g penicilli n and acting as antibacte rial agent (product) medicatio n itching Not available Not available 12/12/2019 66367 05 SNOMED Not Available [facility] 0 23:50:45 346259 atorvasta tin medicatio n Not available Not available Not available 12/12/2019 52509 RxNorm Not Available [facility] 0 23:50:45 930652 tetracycl ine medicatio n Not available Not available Not available 12/12/2019 19593 RxNorm Not Available [facility] 0 23:50:45 853706 alendrona te sodium medicatio n Not available Not available Not available 12/12/2019 07557 2 RxNorm Not Available [facility] 0 23:50:45 095080 amoxicill in medicatio n Not available Not available Not available 12/12/2019 723 RxNorm Not Available [facility] 0 23:50:45 845829 oxybutyni n chloride Not available dizziness Not available Not available 12/12/2019 77555 RxNorm fatig ue Not Available [facility] 0 23:50:45 949312 aspirin medicatio n Not available Not available Not available 12/12/2019 1191 RxNorm Not Available [facility] 0 23:50:46 710349 losartan Not available Not available Not available Not available 12/12/2019 50187 RxNorm Not Available [facility] 0 23:50:46 744985 estrogens , conjugate d (ALF) medicatio n Not available Not available Not available 12/12/2019 4099 RxNorm Not Available [facility] 0 23:50:46 752274 ciproflox acin medicatio n Not available Not available Not available 12/12/2019 2551 RxNorm Not Available [facility] 0 23:50:46 958420 hydrochlo rothiazid e medicatio n Not available Not available Not available 12/12/2019 5487 RxNorm Not Available [facility] 0 23:50:46 550371 metoprolo l Not available Not available Not available Not available 12/12/2019 6918 RxNorm Not Available [facility] 0 23:50:46 612935 naproxen medicatio n Not available Not available Not available 12/12/2019 7258 RxNorm Not Available [facility] 0 23:50:46 088579 clindamyc in Not available Not available Not available Not available 12/12/2019 2582 RxNorm Not Available [facility] 0 23:50:46 411523 Substance with sulfonami de structure and antibacte rial mechanism of action (substanc e) medicatio n Not available Not available Not available 11/11/2020 64616 8003 SNOMED Lucinda Vossen [facility] 1 11:56:30 183631 Myrbetriq medicatio n swelling Not available Not available 10/05/2021 97277 92 RxNorm RODERICK ALIX [facility] 2 13:18:14 310149 Sambucus Elderber[facility] y Immune medicatio n Not available Not available Not available 04/09/2022 Demetri Bosch [facility] 2 12:14:11 Medications Name [...] Updated DateTime 04/09/2022 154.94 cm 27.8 kg/m2 22518.08 g Demetri Bosch [facility] 04/09/2022 12:13:52 Date Recorded Body height Body mass index (BMI) Body weight Provider Name and Address Organization Details Last Updated DateTime 12/06/2022 154.94 cm 25.5 kg/m2 39041.97 g Demetri Bosch [facility] 12/06/2022 10:41:56 Date Recorded Body height Body mass index (BMI) Body weight Provider Name and Address Organization Details Last Updated DateTime 04/28/2023 154.94 cm 25.5 kg/m2 93038.97 g Radhika Mathis [facility] 04/28/2023 11:25:35 Date Recorded Body height Body mass index (BMI) Body weight Provider Name and Address Organization Details Last Updated DateTime 09/14/2021 158.75 cm 26.5 kg/m2 34132.08 g Demetri Bosch [facility] 09/14/2021 09:54:39 Date Recorded Body height Body mass index (BMI) Body weight Provider Name and Address Organization Details Last Updated DateTime 09/14/2021 158.75 cm 26.5 kg/m2 99381.08 zeus Ocampo [facility] 09/14/2021 10:08:57 Date Recorded Body height Body mass index (BMI) Body weight Provider Name and Address Organization Details Last Updated DateTime 11/12/2021 154.94 cm 27.8 kg/m2 91469.08 zeus Ocampo [facility] 11/12/2021 11:32:20 Social History Question Answer Notes LastModified by Organizat ion Details LastModified Time Tobacco Smoking Status Never Smoker Not Available [facility] 12/13/2019 02:00:45 What Is Your Level Of Alcohol Consumption? None Information not available 09/14/2021 What Is Your Level Of Caffeine Consumption? Heavy Information not available 09/14/2021 Are You Currently Employed? No Information not available 09/14/2021 Race White Information n ot available 12/13/2019 Ethnicity Not /Lat vane Information not available 09/14/2021 Preferred Language Guyanese Information not available 09/14/2021 Recreational Drug Use No Information not available 09/14/2021 Could You Be ? No Information not available 09/14/2021 Marital Status Informati on not available 12/13/2019 What Was The Date Of Your Most Recent Tobacco Screening? 12/06/2022 [email or web address] Information not available 12/06/2022 What Is Your [...] Pressure Y Kidney Stones N Depression N Lung Disease N GERD/Acid Reflux Y Sexually Transmitted Infection N Cancer N High Cholesterol N Diabetes N Bleeding Disorder Y Heart Disease Y Gynecological HistoryNo gynecological history recorded. Obstetrics History GPAL:G 0 P 0 0 0 0 Immunizations Vaccine Type Date Status Provider Name and Address Organization Details Recorded Time Pneumococcal conjugate PCV 13 07/04/2017 completed STEPHEN Germain - [facility] 04/28/2023 11:25:40 Past Encounters Encounter ID Performer Location Encounter Start Date Encounter Closed Date Diagnosis/Indication Diagnosis SNOMED-CT Code [id number] Charlotte Smith MD [address] [address] 04/15/2020 10:02:52 04/25/2020 12:54:57 Overactive urinary bladder 311996592 Urge incon tinence of urine [id number] [facility] [address] [address] 05/13/2020 10:14:48 05/13/2020 14:22:18 Overactive urinary bladder 440236727 Urge incon tinence of urine 92637755 History of urinary tract infection [id number] [facility] [address] [address] 11/11/2020 11:46:55 11/11/2020 13:40:18 Overactive urinary bladder 058816604 Urge incon tinence of urine 77512681 [id number] [facility] [address] [facility] [address] [place] [address] 11/26/2020 10:15:12 12/02/2020 15:37:48 Overactive urinary bladder 295914506 Nocturia [id number] Charlotte Smith MD [facility] [address] [place] [phone] 08/03/2021 11:31:50 08/03/2021 12:09:22 Overactive urinary bladder 317720720 Urge incon tinence of urine 99448350 Nocturia [id number] [id number] ELMA Blanco [facility] [address] [place] [address] [place] [phone] 09/14/2021 10:06:36 09/14/2021 14:16:12 Overactive urinary bladder 348554385 Urge incon tinence of urine 55560603 Nocturia [id number] Demetri oBsch [facility] [address] [place] [address] [place] [phone] 09/14/2021 09:30:06 09/14/2021 14:31:59 Overactive urinary bladder 984073951 [id number] ELMA Blanco [facility] [address] [place] [address] [place] [phone] 11/12/2021 11:29:59 11/12/2021 12:37:25 Overactive urinary bladder 061993981 Urge incon tinence of urine 97008173 Nocturia 306703588 [id number] Demetri Bosch [facility] [address] [place] [address] [place] [phone] 04/09/2022 11:43:46 04/09/2022 13:38:20 Overactive urinary bladder 486753331 [id number] Demetri Bosch [facility] [address] [place] [address] [place] [phone] 12/06/2022 10:28:13 12/06/2022 11:24:29 Overactive urinary bladder 632544381 [id number] ELMA Blanco [facility] [address] [place] [address] [place] [phone] 04/28/2023 11:22:38 04/28/2023 12:04:03 Overactive urinary bladder 173701431 Urge incon tinence of urine 28444157 Nocturia [id number] Health Concerns Section Related Observation LastModified by Organization Detai ls LastModified Time None Recorded Concern Status LastModified by Organization Details LastModified Time None Recorded Advance Directives Directive None Recorded Payers Encounter Date Sequence Insurance Name Policy Number Policy Betancourt Covered Member ID Betancourt Member ID Guarantor Name 09/14/2021 1 [facility] [employer] [facility] Patsy A Wood [id number] Patsy A Wood 09/14/2021 2 [place] [id number] Patsy A Wood [id number] Patsy A Wood 11/12/2021 1 [place] [id number] [facility] Patsy A Wood [id number] Patsy A Wood 11/12/2021 2 [place] [id number] Patsy A Wood [id number] Patsy A Wood 04/09/2022 1 [place] [employer] [facility] Patsy A Wood [id number] Patsy A Wood 04/09/2022 2 [place] [id number] Patsy A Wood [id number] Patsy A Wood 12/06/2022 1 [place] [employer] [facility] Patsy A Wood [id number] Patsy A Wood 12/06/2022 2 [place] [id number] Patsy A Wood [id number] Patsy A Wood 04/28/2023 1 [place] [employer] [facility] Patsy A Wood [id number] Patsy A Wood 04/28/2023 2 [place] [id number] Patsy A Wood [id number] Patsy A Wood Notes Date Note Type [...] to be almost every hour. ELMA Blanco [address] [place] [address],[address], [place], [address], [facility] 09/14/2021 10:49:41 11/12/2021 text/html HPI [...] with sjorgrens. This visit was conducted using exsulin technology. Prior to conducting our health visit, the patient and I discussed the risks, benefits and alternatives to phone visits. The patient elected to proceed with the phone visit. ELMA Blanco [address] [place] [address],[facility] [address], [place], [address], [facility] 11/12/2021 11:50:24 12/06/2022 text/html HPI [...] changed Rate chaanged Resolution changed Demetri felix [facility] 12/06/2022 11:08:58 04/28/2023 text/html HPI [...] to be almost every hour. ELMA Blanco [address] [place] [address],[address], [place], [address], [place] [facility] 04/28/2023 11:58:40 OBGyn Episode No OBEpisode recorded.
--- OUTSIDE RECORDS SUMMARY | 2024-01-27 09:59 | XMS_ITS | Continuity of Care Document ---
Author Organization [facility] Address [address] [place] [address] Phone Care Team Providers Care Pulp House Supervisor Name Role Phone Helder Medina MD Unavailable [...] Antibodies Dna Antibody, Single Strand Dna Antibody, [place] Nuclear Antigen Antibodies Rheumatoid Factor, IGM Rheumatoid Factor, IGG, IGA Advance Directives Directive Yes / No Effective Date File Name No Information Encounters Encounter Description Practice Location Reason(s) For Visit Diagnoses Date Provider Providers Copied on Encounter [facility], [address], [place], [address], [place] tel:[phone] [facility], No Information Apr-- 4 Adam Pendleton. [address], [place], [address], [place]. tel:[phone] Referring Provider: Helder Jain, [address], [place], [address]. tel:[phone] Office/Outpa tient Visit, Est [facility], [address], [place], [address], [place] tel:[phone] [facility], Sjogren syndrome w/ inflammatory arthritisPain in left foot Apr- 0 4 Lebedoff Helder. [address], [place], [address], [place]. tel:[phone] Referring Provider: Helder Jain, [address], [place], [address]. tel:[phone] Office/Outpa tient Visit, Est [facility], [address], [place], [address], [place] tel:[phone] [facility], Sjogren syndrome w/ inflammatory arthritisPrim mauri osteoarthriti s, right hand 3 Lebedoff Helder. [address], [place], [address], [place]. tel:[phone] Referring Provider: Helder Jain, [address], [place], [address]. tel:[phone] Office/Outpa tient Visit, Est [facility], [address], [place], [address], [place] tel:[phone] [facility], Sicca syndrome, unspecifiedWe akness November- 0 3 Lebedoff Helder. [address], [place], [address], [place]. tel:[phone] Referring Provider: Helder Jain, [address], [place], [address]. tel:[phone] Office/Outpa tient Visit, Est [facility], [address], [place], [address], [place] tel:[phone] [facility], Sicca syndrome, unspecifiedPa in in left shoulder Apr- 2 Adam Pendleton. [address], [place], [address], [place]. tel:[phone] Referring Provider: Helder Jain, [address], [place], [address]. tel:[phone] Office/Outpa tient Visit, Est [facility], [address], [place], [address], [place] tel:[phone] [facility], Sicca syndrome, unspecifiedDy spnea Oct- 2 Adam Pendleton. [address], [place], [address], [place]. tel:[phone] Referring Provider: Helder Jain, [address], [place], [address]. tel:[phone] Office/Outpa tient Visit, Est [facility], [address], [place], [address], [place] tel:[phone] [facility], [place]ca syndrome, [facility] drug therapyPrimar y OA of right handDyspnea Apr- 1 Adam Pendleton. [address], [place], [address], [place]. tel:[phone] Referring Provider: Helder Jain, [address], [place], [address]. tel:[phone] Office/Outpa tient Visit, New [facility], [address], [place], [address], [place] tel:[phone] [facility], Sicca syndrome, unspecifiedPa in in rt ankleOther [facility] 1 Adam Pendleton. [address], [place], [address], [place]. tel:[phone] Referring Provider: Helder Medina G, [address], [place], [address]. tel:[phone] [facility], [address], [place], [address], [place] tel:[phone] [facility] No Information 1 Mo Sullivan. [facility] [address] [place] [address] [address], [place], [address], [place]. tel:[phone] Family History Family Member Type Diagnosis Age At Onset No Information Immunizations Vaccine Date Status Comments COVID-19 Moderna administered Source: Ot er Provider COVID-19 Pfizer administered Note: 1 ; Source: Other Provider Payers Payer name Insurance type Covered democrat ID Authoriza tion(s) [employer] Medicare Adv [id number] MB [id number] Social History Type Description Quantity Date Captured [...] Order Fo ot X-ray; Complete (3+ views) (97656), Sent on: Sent History Of Present Illness [...]
--- OUTSIDE RECORDS SUMMARY | 2024-01-27 09:59 | XMS_ITS | Continuity of Care Document ---
Author Organization [facility] Address [address] [place] [address] Phone Care Team Providers Care Director Of Retail Merchandising Name Role Phone Usha Dickinson Unavailable Unavailable [...] on Encounter [facility], [address], [place], [place], [address], [place] tel:[phone] No Information [facility]. [facility], [address], [place], [place], [address] , [place]. [phone] Office/Outpat ient Visit,Est, Mod [facility], [address], [place], [place], [address], [place] tel:[phone] [facility] Other forms of scoliosis, thoracolumbar regionL2 wedge compression fracture, initial encounter for closed fractureSpondy lolisthesis, lumbar region 0 [facility]. [facility], [address], [place], [place], [address] , [place]. tel:[phone] Referring Provider: Rakel Arvizu, [facility] [address] [place], [address]. tel:[phone] Office/Outpat ient Visit,Est, Mod [facility], [address], [facility] [place], [address], [place] tel:[phone] [facility] L2 wedge compression fracture, initial encounter for closed fractureOther forms of scoliosis, thoracolumbar regionSpondylo listhesis, lumbar region 0 Kwame Kerr. [facility], [address], [place], [place], [address] , . tel:[phone] Referring Provider: Rakel Arvizu [employer] [address] [place], [address]. tel:[phone] Office/Outpat ient Visit,[facility], [facility], [address], [facility] [place], [address], [place] tel:[phone] [facility] [place] L2 wedge compression fracture, initial encounter for closed fractureOther forms of scoliosis, thoracolumbar regionSpondylo listhesis, lumbar region 0 Kwame Kerr. [facility], [address], [place], [place], [address] , [place]. tel:[phone] Referring Provider: Rakel Arvizu [employer] [address] [place], [address]. tel:[phone] Family History Family Member Type Diagnosis Age At Onset No Information Payers Payer name Insurance type Covered green party ID Authoralethaa tishannon(s) Medicare MB [id number] [facility] [id number] [facility] [id number] Social History Type Description Quantity Date Captured [...]
== END 2024-01-27 09:57 | disposition home or self-care (01) ==
LOC: WOUND 09:56
PROVIDERS: PCP Physician Assistant Medical; Visit Provider Nurse Practitioner Family
DX: I87.2 Venous insufficiency (chronic) (peripheral) (principal); I73.9 Peripheral vascular disease, unspecified; L97.322 Non-pressure chronic ulcer of left ankle with fat layer exposed; Z79.52 Long term (current) use of systemic steroids
CPT/HCPCS: 15271; Q4101

== ENCOUNTER 2024-02-03 10:00 | Outpatient (CLI) | payer OTHER, SELFPAY ==
--- OUTSIDE RECORDS SUMMARY | 2024-02-07 11:44 | XMS_ITS | Continuity of Care Document ---
Author Organization [facility] Address [address] [place] [address] Phone Care Team Providers Care Backshoe Person Name Role Phone Usha Dickinson Unavailable Unavailable [...] on Encounter [facility], [address], [facility] [place], [place], [address], [place] tel:[phone] No Information [facility]. [facility], [address], [place], [place], [address] , [place]. [phone] Office/Outpat ient Visit,Est, Mod [facility], [address], [place], [place], [address], [place] tel:[phone] [facility] Other forms of scoliosis, thoracolumbar regionL2 wedge compression fracture, initial encounter for closed fractureSpondy lolisthesis, lumbar region 0 Puente Usha. [facility], [address], [place], [place], [address] , [place]. tel:[phone] Referring Provider: Rakel Arvizu, [place] [facility] [address] [place], [address]. tel:[phone] Office/Outpat ient Visit,Est, Mod [facility], [address], [facility] [place], [address], [place] tel:[phone] [facility] L2 wedge compression fracture, initial encounter for closed fractureOther forms of scoliosis, thoracolumbar regionSpondylo listhesis, lumbar region 0 Kwame Kerr. [facility], [address], [place], [place], [address] , . tel:[phone] Referring Provider: Rakel Arvizu [employer] [address] [place], [address]. tel:[phone] Office/Outpat ient Visit,[facility], [facility], [address], [facility] [place], [address], [place] tel:[phone] [facility] - [facility] [place] L2 wedge compression fracture, initial encounter for closed fractureOther forms of scoliosis, thoracolumbar regionSpondylo listhesis, lumbar region 0 Kwame Kerr. [facility], [address], [place], [place], [address] , [place]. tel:[phone] Referring Provider: Rakel Arvizu [employer] [address] [place], [address]. tel:[phone] Family History Family Member Type Diagnosis Age At Onset No Information Payers Payer name Insurance type Covered green party ID Authoralethaa tishannon(s) Medicare MB [id number] [facility] [id number] [facility] [id number] Social History Type Description Quantity Date Captured [...]
--- OUTSIDE RECORDS SUMMARY | 2024-02-07 11:44 | XMS_ITS | Continuity of Care Document ---
Author Organization [facility] Address [address] [place] [address] Phone Care Team Providers Care Measurement Technician Name Role Phone Helder Medina MD [...] Antibodies Dna Antibody, Single Strand Dna Antibody, [place] Nuclear Antigen Antibodies Rheumatoid Factor, IGM Rheumatoid Factor, IGG, IGA Advance Directives Directive Yes / No Effective Date File Name No Information Encounters Encounter Description Practice Location Reason(s) For Visit Diagnoses Date Provider Providers Copied on Encounter [facility], [address], [place], [address], [place] tel:[phone] [facility], No Information Apr-- 4 Adam Pendleton. [address], [place], [address], [place]. tel:[phone] Referring Provider: Helder Jain, [address], [place], [address]. tel:[phone] Office/Outpa tient Visit, Est [facility], [address], [place], [address], [place] tel:[phone] [facility], Sjogren syndrome w/ inflammatory arthritisPain in left foot Apr- 0 4 Lebedoff Helder. [address], [place], [address], [place]. tel:[phone] Referring Provider: Helder Jain, [address], [place], [address]. tel:[phone] Office/Outpa tient Visit, Est [facility], [address], [place], [address], [place] tel:[phone] [facility], Sjogren syndrome w/ inflammatory arthritisPrim mauri osteoarthriti s, right hand 3 Lebedoff Helder. [address], [place], [address], [place]. tel:[phone] Referring Provider: Helder Jain, [address], [place], [address]. tel:[phone] Office/Outpa tient Visit, Est [facility], [address], [place], [address], [place] tel:[phone] [facility], Sicca syndrome, unspecifiedWe akness November- 0 3 Lebedoff Helder. [address], [place], [address], [place]. tel:[phone] Referring Provider: Helder Jain, [address], [place], [address]. tel:[phone] Office/Outpa tient Visit, Est [facility], [address], [place], [address], [place] tel:[phone] [facility], Sicca syndrome, unspecifiedPa in in left shoulder Apr- 2 Adam Pendleton. [address], [place], [address], [place]. tel:[phone] Referring Provider: Helder Jain, [address], [place], [address]. tel:[phone] Office/Outpa tient Visit, Est [facility], [address], [place], [address], [place] tel:[phone] [facility], Sicca syndrome, unspecifiedDy spnea Oct- 2 Adam Pendleton. [address], [place], [address], [place]. tel:[phone] Referring Provider: Helder Jain, [address], [place], [address]. tel:[phone] Office/Outpa tient Visit, Est [facility], [address], [place], [address], [place] tel:[phone] [facility], Sicca syndrome, unspecifiedOt her prison (current) drug therapyPrimar y OA of right handDyspnea Apr- 1 Adam Pendleton. [address], [place], [address], [place]. tel:[phone] Referring Provider: Helder Jain, [address], [place], [address]. tel:[phone] Office/Outpa tient Visit, New [facility], [address], [place], [address], [place] tel:[phone] [facility], Sicca syndrome, unspecifiedPa in in rt ankleOther termite exterminator helper (current) drug therapy 1 Adam Pendleton. [address], [place], [address], [place]. tel:[phone] Referring Provider: Helder Medina G, [address], [place], [address]. tel:[phone] [facility], [address], [place], [address], [place] tel:[phone] [facility] No Information 1 Mo Sulil[place]. [facility] [address] [place] [address] [address], [place], [address], [place]. tel:[phone] Family History Family Member Type Diagnosis Age At Onset No Information Immunizations Vaccine Date Status Comments COVID-19 Moderna administered Source: Ot er Provider COVID-19 Pfizer administered Note: 1 ; Source: Other Provider Payers Payer name Insurance type Covered democrat ID Authoriza tion(s) [employer] Medicare Adv [id number] MB [id number] Social History Type Description Quantity Date Captured [...] Order Fo ot X-ray; Complete (3+ views) (32617), Sent on: Sent History Of Present Illness [...]
--- OUTSIDE RECORDS SUMMARY | 2024-02-07 11:44 | XMS_ITS | Clinical Summary ---
Author Organization [facility] Address [place], [place] [address] Care Team Providers Care Shipwright Apprentice Name Role Phone Kd Restrepo MD Unavailable [phone] Cody Veliz MD Unavailable [phone] Maritza Rendon DO Primary Care Provide r [...] SOB (shortness of breath) 01/25/2020 Fatigue 01/25/2020 care home current use of systemic steroids 09/27 Prediabetes [...] Date Anticoagulation monitoring, INR range 2-3 [Z79.01]; [place] Target 2.5-3.0 12/06/2016 1 Pessary maintenance 02/25/2016 09/28/19 20 Anticoagulation monitoring, goal range 2.0-2.6 09/19/2013 01/09/2018 Abnormal stress test 11/17/2010 011 Routine general medical exam ination at a health care facility 07/12/2009 09/28/2019 Overview: Normal CT angiogram 11/2010 Hip pain 05/06/2008 07/09/2009 Onychomycosis 05/06/2008 08/27/2008 HX OF VENOUS THROMBOSIS AND EMBOLISM 11/09/2006 12/06/2012 Bilateral pulmonary embolism 10/11/2006 11/18/2017 AFTERCARE, LONG-TERM USE, AR DICATIONS NEC-PLAQUENIL 10/22/2003 Encounters Date Type Department Care Team Description 01/19/2024 Orders Only [facility] Scanner 1 scan: (1-Ord) [facility] REPORT, 01/19/2024 01/19/2024 Orders Only [facility] Scanner 1 scan: (1-Ord) [facility] CLINIC LABORATORY REPORT, 01/19/2024 01/18/2024 Orders Only [facility] Scanner 1 scan: (1-Ord) [facility] REPORT, 01/18/2024 01/18/2024 Orders Only [facility] Scanner 1 scan: (1-Ord) [facility] REPORT, 01/18/2024 01/18/2024 Orders Only [facility] Scanner 1 scan: (1-Ord) [facility] CL[facility] REPORT, 01/18/2024 01/18/2024 Orders Only [facility] Scanner 1 scan: (1-Ord) [facility], CT ABDOMEN PELVIS W CON, 01/18/2024 01/18/2024 Orders Only [facility] Scanner 1 scan: (1-Ord) [facility], US ABDOMEN LIMITED, 01/18/2024 01/06/2024 Telephone [facility] [address] [place] [phone] Charlotte Anderson MD Questions (Concern about wound) 01/03/2024 Orders Only [facility] Scanner 1 scan: (1-Ord) [facility] REPORT, 01/03/2024 12/30/2023 Transcribe Orders [facility] [address] [place] [phone] Charlotte Anderson MD 12/13/2023 Orders Only [facility] Scanner 1 scan: (1-Ord) [facility] REPORT, 12/13/2023 12/12/2023 Lab Requisition [facility] [phone] Unknown, Doctor 12/09/2023 Telephone [facility] [address] [place] [address] Charlotte Anderson MD Care Coordination 12/05/2023 11:00 AM CDT Office Visit [facility] [address] [place] [phone] Charlotte Anderson MD Follow Up (LLE wound follow up ) 12/05/2023 8:56 AM CDT - 12/05/2023 11:59 PM CDT Hospital Encounter [facility] [address] [place] [address] Charlotte Anderson MD Venous insufficiency; Venous stasis ulcer of ankle, left (HC) 12/05/2023 Travel 11/23/2023 9:30 AM CDT Office Visit [facility] [address] [place] [address] Charlotte Anderson MD Ankle Pain/problem (L medial malleolar ulcer) 11/23/2023 6:47 AM CDT - 11/23/2023 11:59 PM CDT Hospital Encounter [facility] [address] [place] [address] Charlotte Anderson MD PAD (peripheral artery disease) (HC) 11/22/2023 Travel from Last 3 Months Immunizations Name Administration Dates Next Due AMB INFLUENZA IIV3 (AGE 65+ YRS) PF (Flu Clinic Only) 03/23/2017 AMB Influenza, IIV3 (Age >=3 years) Preserve Free (Flu Clinic Only) 04/08/2009 AMB Influenza, IIV3 (Age >=3 years)(Flu Clinic Only) 04/06/2013,04/16/2011,04/24/2008 COVID-19 vaccine (Enikos 30mcg/0.3mL) PF, MDV 09/02/2020,08/12/2020 Influenza A (H1N1), [...] CDT Appointment [facility] [address] [place] [address] 02/16/2024 8:00 AM CDT Procedure Only [facility] [address] [place] [phone] Chralotte Anderson MD [address] [place] [address] 02/17/2024 11:30 AM CDT Appointment [facility] [address] [place] [address] 02/28/2024 10:00 AM CDT Office Visit [facility] [address] [place], [place] [phone] [place] [address] [place] [address] 03/01/2024 3:30 PM CDT Office Visit [facility] [address] [place] [address] Olvin Haji MD [facility] [place] [address] Health Maintenance Due Date Last Done Comments [...] 01/13/2016, 12/18/2010 Medical Devices Implanted Type Area Attic Fans Mechanic Device Identifier Shelf Expiration Date Model / Serial / Lot Lead Kit 4.32mm Spacing 28cm Length Interstim - [id number] Implanted:Qty: 1 on 04/01/2020 by Charlotte Smith MD at [facility] N/A: Sacrum [employer] Pain Therapy 09/30/2021 [id number] / / [id number] Stimulator 7.7mm 14cc Interstim Ii - [id number] Implanted:Qty: 1 on 04/01/2020 by Charlotte Smith MD at [facility] N/A: Sacrum [employer] Pain Therapy 03/31/2021 [id number] / [id number] / Description:PIN [id number] Procedures Procedure Name Priority Date/Time Associated Diagnosis Comments SCAN-LABORATORY REPORT 4 12:00 AM CDT SCAN-LABORATORY REPORT 4 12:00 AM CDT SCAN-LABORATORY REPORT 4 12:00 AM CDT SCAN-LABORATORY REPORT 4 12:00 AM CDT SCAN-LABORATORY REPORT 4 12:00 AM CDT SCAN-CT INTERPRETATION 4 12:00 AM CDT SCAN-ULTRASOUND REPORT 4 12:00 AM CDT SCAN-LABORATORY REPORT 4 12:00 AM CDT SCAN-LABORATORY REPORT 12:00 AM CDT REFERRAL ID/MOHAN,NONURINE Routine 12/08/2023 11:47 AM CDT [...] 2 SITES AXIAL Routine 07/02/2019 11:48 AM ASSISTANT COACH Osteopenia of multiple sites from Last 3 Months or Most Recently Relevant to Health Maintenance Results * SCAN-LABORATORY REPORT (01/19/2024 12:00 AM CDT) Only the most recent of7 resultswithin the time period is included. Scanner OTHER * SCAN-ULTRASOUND REPORT (01/18/2024 12:00 AM CDT) Anatomical Region Laterality Modality Other Scanner OTHER * SCAN-CT INTERPRETATION (01/18/2024 12:00 AM CDT) Anatomical Region Laterality Modality Other Scanner OTHER * (ABNORMAL) REFERRAL ID/SUSC,NONURINE (12/08/2023 11:47 AM CDT) CULTURE RESULT(A) 12/17/2023 2:44 PM CDT [facility] CULTURE 1+ Acinetobacter species 12/17/2023 2:44 PM CDT [facility] Other (Left [...] Acinetobacter species MEROPENEM S Doctor Unknown MICROBIOLOGY [facility] [address] [place] [address], * US VENOUS INSUFFICIENCY LOWER EXTREMITY BILATERAL [...] US VENOUS INSUFFICIENCY LOWER EXTREMITY BILATERAL LOCATION: [facility] DATE: 12/05/2023 INDICATION: [...] when greater than 600 ms flow reversal. Brand Communications Manager vein reflux reported as greater than 350 [...] US VENOUS INSUFFICIENCY LOWER EXTREMITY BILATERAL LOCATION: [facility] DATE: 12/05/2023 INDICATION: [...] reported when greater than 600ms flow reversal. Brand Communications Manager vein reflux reported as greater than 350 [...] the leftlower extremity wound. Charlotte Anderson MD US * US ANKLE BRACHIAL INDEX BILATERAL (11/23/2023 8:37 AM CDT) Anatomical Region Laterality Modality ANKLES, ANKLE L, ANKLE R Ultraso und 11/23/2023 7:17 AM CDT Narrative 11/23/2023 12:17 PM CDT VASCULAR ULTRASOUND REPORT RODERICKCONSTANZA HEATON Accession#: ?? [id number] : ?1940 ??Study Date: ?? 11/23/2023 7:17:22 AM Age: ?83 years ?? Tech: ? KBN/CRK Gender: F ?Referring MD: CHARLOTTE ANDERSON Site: [facility] Study performed: ?Lower extremity resting MINOR, [...] ? Index +-----+ +--------+ +-----+ 1.24 ?241 ?COMPLIANCE AND CONTROL ANALYST ?107 ? 0.55 +-----+ +--------+ +-----+ 1.23 ?238 ?DPA ?147 ? 0.76 +-----+ +--------+ +-----+ 0.63 ?122 ? Digit 1 ?45 ? 0.23 +-----+ +--------+ +-----+ Wang Dela Cruz MD. Electronically signed on 11/23/2023 12:17:56 PM This study was performed and interpreted by a service accredited by the Intersocietal Accreditation Commission (IAC/Vascular), [email or web address] Report generated by [employer]. ??Final ?? Procedure Note Wang Dela Cruz MD - 11/23/2023 VASCULAR ULTRASOUND REPORT RODERICK HEATON : 1940 Study Date: 11/23/2023 7:17:22 AM Age: 83 years Tech: ARISTIDES/JOHNNY Gender: F Referring MD: CHARLOTTE ANDERSON Site: [facility] Study [...] 194 Index +-----+ +--------+ +-----+ 1.24 241 COMPLIANCE AND CONTROL ANALYST 107 0.55 +-----+ +--------+ +-----+ 1.23 238 DPA 147 0.76 +-----+ +--------+ +-----+ 0.63 122 Digit 1 45 0.23 +-----+ +--------+ +-----+ Wang Dela Cruz MD. Electronically signed on 11/23/2023 12:17:56 PM This study was performed and interpreted by a service accredited by theIntersocietal Accreditation Commission (IAC/Vascular),[email or web address] Report generated by [employer]. Final Charlotte Anderson MD US * US ARTERIAL LOWER EXTREMITY BILATERAL (11/23/2023 8:37 AM CDT) Anatomical Region Laterality Modality LEGS, LEG L, LEG R Ultrasound 11/23/2023 7:26 AM CDT Narrative 11/23/2023 12:22 PM CDT VASCULAR ULTRASOUND REPORT RODERICK HEATON Accession#: ?? [id number] : ?1940 ??Study Date: ?? 11/23/2023 7:26:56 AM Age: ?83 years ?? Tech: ? KBN/CRK Gender: F ?Referring MD: CHARLOTTE ANDERSON Site: [facility] Vascular [facility] Study performed: ?Lower extremity duplex US, [...] DST ? 104 ? +--------+ + +-----+ MANAGER SPANISH DST ? 111 ? +--------+ + +-----+ PFA ? 88 ? +--------+ + +-----+ SFA PRX ? 111 ? +--------+ + +-----+ SFA MID ? 66 ? +--------+ + +-----+ SFA DST ? 415 ? 64 ? 6.5 ?? +--------+ + +-----+ COLLIN PRX ? 101 ? +--------+ + +-----+ COLLIN DST ? 41 ? +--------+ + +-----+ COMPLIANCE AND CONTROL ANALYST DST ? 80 ? +--------+ + +-----+ KAREN DST ? 38 ? +--------+ + +-----+ LAXMI DST -179 retro ? +--------+ + +-----+ DPA ?-34 retro ? +--------+ + +-----+ +--------+ + +-----+ LEFT ? Velocity cm/s PRE ? Ratio ? Velocity cm/s ? Phasicity ? +--------+ + +-----+ EIA DST ? 100 ? +--------+ + +-----+ MANAGER SPANISH DST ? 98 ? +--------+ + +-----+ PFA ? 73 ? +--------+ + +-----+ SFA PRX ? 100 ? +--------+ + +-----+ SFA MID ? 52 ? +--------+ + +-----+ SFA DST ? 44 ? +--------+ + +-----+ COLLIN PRX ? 674 ? 55 ? 12.3 +--------+ + +-----+ COLLIN DST ? 27 ? +--------+ + +-----+ COMPLIANCE AND CONTROL ANALYST DST ? 11 ? +--------+ + +-----+ [...] Accreditation Commission (IAC/Vascular), [email or web address] Report generated by [employer]. ??Final ?? Procedure Note Wang Dela Cruz MD - 11/23/2023 VASCULAR ULTRASOUND REPORT RODERICK HEATON : 1940 Study Date: 11/23/2023 7:26:56 AM Age: 83 years Tech: ARISTIDES/JOHNNY Gender: F Referring MD: CHARLOTTE ANDERSON Site: [facility] Vascular [facility] Study performed: Lower extremity duplex US, [...] +-----+ EIA DST 104 +--------+ + +-----+ MANAGER SPANISH DST 111 +--------+ + +-----+ PFA 88 +--------+ + +-----+ SFA PRX 111 +--------+ + +-----+ SFA MID 66 +--------+ + +-----+ SFA DST 415 64 6.5 +--------+ + +-----+ COLLIN PRX 101 +--------+ + +-----+ COLLIN DST 41 +--------+ + +-----+ COMPLIANCE AND CONTROL ANALYST DST 80 +--------+ + +-----+ KAREN DST 38 +--------+ + +-----+ LAXMI DST -179 retro +--------+ + +-----+ DPA -34 retro +--------+ + +-----+ +--------+ + +-----+ LEFT Velocity cm/s PRE Ratio Velocity cm/s Phasicity +--------+ + +-----+ EIA DST 100 +--------+ + +-----+ MANAGER SPANISH DST 98 +--------+ + +-----+ PFA 73 +--------+ + +-----+ SFA PRX 100 +--------+ + +-----+ SFA MID 52 +--------+ + +-----+ SFA DST 44 +--------+ + +-----+ COLLIN PRX 674 55 12.3 +--------+ + +-----+ COLLIN DST 27 +--------+ + +-----+ COMPLIANCE AND CONTROL ANALYST DST 11 +--------+ + +-----+ LAXMI DST [...] theIntersocietal Accreditation Commission (IAC/Vascular),[email or web address]/vascular Report generated by [employer]. Final Charlotte Andesron MD US * (ABNORMAL) XR DXA BONE DENSITY 2 SITES AXIAL (07/02/2019 11:48 AM ASSISTANT COACH) Anatomical Region Laterality Modality Spine, HIPS, HIPL, HIPR Other Narrative 07/06/2019 11:01 AM ASSISTANT COACH Please see scanned document for results of this study. Rakel Connor DO DEXA from Last 3 Months or Most Recently Relevant to Health Maintenance Advance Directives Documents on File Type Date Recorded Patient Stacker Tender Expl anation Healthcare Directive 07/19/2016 2:58 PM [...] 8:45 AM 09/01/2016 4:04 PM Care Teams Shipwright Apprentice Relationship Specialty Start Date End Date Maritza Rendon DO [address] [place] [address] PCP - General Family Practice 12/30/22 Kd Restrepo MD Endocrinology 11/24/11 Cody Veliz MD Rheumatology 11/24/11
== END 2024-02-03 10:01 | disposition home or self-care (01) ==
LOC: WOUND 02-07 11:41
PROVIDERS: PCP Physician Assistant Medical; Visit Provider Nurse Practitioner Family
DX: I87.2 Venous insufficiency (chronic) (peripheral) (principal); I73.9 Peripheral vascular disease, unspecified; L97.322 Non-pressure chronic ulcer of left ankle with fat layer exposed; R73.03 Prediabetes; Z79.52 Long term (current) use of systemic steroids
CPT/HCPCS: G0463

== ENCOUNTER 2024-02-07 12:31 | Outpatient (CLI) | payer OTHER, SELFPAY ==
--- OUTSIDE RECORDS SUMMARY | 2024-02-07 12:36 | XMS_ITS | Data Portability ---
Author Organization [facility], [facility] Address [address] [place] [address] Care Team Providers Care Group Insurance Special Agent Name Role Phone [facility] Primary Care Provider Assessment No assessment recorded. [...] By Organization Details Last Modified Time 09/14/2021 [id number] Test each progra m for at least 2 weeks, adjusting amplitude as needed. May remain on a program as long as it is effective. Return as needed for reprogramming. [email or web address] Not available 09/14/2021 10:07:26 Patient states t hat Gemtessa samples were very effective, but it is not covered by her insurance. She was also given a rx for Myrbetriq. [email or web address] Not available 09/14/2021 10:08:49 11/12/2021 [id number] Over Active Blad betty (OAB): -Managed with [...] minutes [email or web address] Not available 11/12/2021 11:46:55 04/09/2022 [id number] Test each progra m for at least [...] expense. I will ask Afsaneh Bui PAC. [email or web address] Not available 04/09/2022 12:37:43 12/06/2022 [id number] Test each progra m for at least 2 weeks, adjusting amplitude as needed. May remain on a program as long as it is effective. Return as needed for reprogramming. [email or web address] Not available 12/06/2022 10:55:41 04/28/2023 [id number] Over Active Blad betty (OAB): -Managed with [...] Available [facility] [address], [place], [address], 09/14/2021 10:41:46 09/15/19 22 09/14/2021 UA DIP CS ADVAN TUS appearance -advantus CLEAR clear Not Available [facility] [address], [place], [address], 09/14/2021 10:41:46 09/15/19 22 09/14/2021 UA DIP CS ADVAN TUS glucose -advantus NEGATI VE mg/dL negati ve Not Available [facility] [address], [place], [address], 09/14/2021 10:41:46 09/15/19 22 09/14/2021 UA DIP CS ADVAN TUS bilirubin -advantus NEGATI VE negati ve Not Available [facility] [address], [place], [address], 09/14/2021 10:41:46 09/15/19 22 09/14/2021 UA DIP CS ADVAN TUS ketones -advantus NEGATI VE mg/dL negati ve Not Available [facility] [address], [place], [address], 09/14/2021 10:41:46 09/15/19 22 09/14/2021 UA DIP CS ADVAN TUS sp. gravity -advantus 1.010 1.010- 1.025 Not Available [facility] [address], [place], [address], 09/14/2021 10:41:46 09/15/19 22 09/14/2021 UA DIP CS ADVAN TUS pH -advantus 6.0 5.0-8. 0 Not Available [facility] [address], [place], [address], 09/14/2021 10:41:46 09/15/19 22 09/14/2021 UA DIP CS ADVAN TUS protein -advantus NEGATI VE mg/dL negati ve Not Available [facility] [address], [place], [address], 09/14/2021 10:41:46 09/15/19 22 09/14/2021 UA DIP CS ADVAN TUS urobilinogen -advantus 0.2 normal Not Available [facility] [address] [place] [address], [place], [address], 09/14/2021 10:41:46 09/15/19 22 09/14/2021 UA DIP CS ADVAN TUS nitrites -advantus NEGATI VE negati ve Not Available [facility] [address] [place] [address], [place], [address], 09/14/2021 10:41:46 09/15/19 22 09/14/2021 UA DIP CS ADVAN TUS blood -advantus SMALL negati ve abnormal Not Available [facility] [address] [place] [address], [place], [address], 09/14/2021 10:41:46 09/15/19 22 09/14/2021 UA DIP CS ADVAN TUS leukocytes -advantus NEGATI VE negati ve Not Available [facility] [address] [place] [address] [address], [place], [address], 09/14/2021 10:41:46 09/15/19 22 09/14/2021 UA DIP CS ADVAN TUS performed by Bibi Ruiz Not Available [facility] [address] [place] [address] [address], [place], [address], 09/14/2021 10:41:46 09/15/19 22 09/14/2021 UA DIP CS ADVAN TUS total urine volume (mL) 20cc /mL Not Available [facility] [address] [place] [address] [address], [place], [address], 09/14/2021 10:41:46 09/15/19 22 09/14/2021 UA MICRO SCOPI C U-WBC 0 - 2 [hpf] 0 - 2 Not Available [facility] [address] [place] [address], [place], [address], 09/14/2021 10:41:47 09/15/19 09/14/2021 UA MICRO SCOPI C U-RBC 0 - 2 [hpf] 0 - 2 Not Available [facility] [address], [place], [address], 09/14/2021 10:41:47 09/15/19 22 09/14/2021 UA MICRO SCOPI C bacteria Small [hpf] negati ve abnormal Not Available [facility] [address], [place], [address], 09/14/2021 10:41:47 09/15/19 22 09/14/2021 UA MICRO SCOPI C squamous epi Small /lpf negati ve,sma ll Not Available [facility] [address], [place], [address], 09/14/2021 10:41:47 Result Notes None recorded. Problems Name Status Onset Date Resolution Date Notes Provider Name and Address Organization Details Recorded Time Chronic cystitis Active 2018 N30.20 : Chronic cystitis Not Available [facility] 0 23:40:26 Overactive urinary bladder Active 2018 N32.81 : Bladder muscle dysfunction - overactive Not Available [facility] 0 23:40:26 Benign neoplastic disease Active 2019 Daphne felix [facility] 0 09:58:09 Tear film insufficiency Active 2019 Daphne felix [facility] 0 09:58:21 Gastroesophageal reflux disease Active 2019 Daphne felix, [facility] 0 09:58:28 Hyperlipidemia Active 2019 Daphne felix, [facility] 0 09:58:36 Heart disease Active 2022 Radhika felix, [facility] 3 11:27:33 Problem Notes None recorded. Procedures Surgical History Date Name Laterality Status Provider Name and Address Organization Details Recorded Time 04/28/20 23 Sacral neuromodulation w/o reprogramming completed ELMA Blanco [address], [place], [address], [facility] 04/28/2023 11:57:28 04/28/20 23 Bladder Scan completed Radhika Mathis null, [facility] 04/28/2023 11:36:21 12/07/19 23 Sacral neuromodulation [...] Data Reviewed completed Charlotte Smith MD [address], [place], [address], [facility] 08/03/2021 08:29:52 08/03/19 22 Bladder Scan completed Usha Corado null, [facility] 08/03/2021 11:50:03 11/27/19 21 Sacral Stimulator Reprogramming completed Demetri Bosch null, [facility] 11/27/2020 12:44:01 09/17/19 20 Implant neuroelectrodes completed Not Available [facility] 12/13/2019 18:11:39 11/29/19 19 Insert bladder catheter completed Not Available [facility] 12/13/2019 18:11:39 11/14/19 15 Colonoscopy completed Lucinda Nuñez null, [facility] 11/11/2020 11:57:08 11/29/19 09 Total hip arthroplasty completed Not Available [facility] 12/13/2019 18:11:39 11/29/19 00 Unlisted procedure breast completed Not Available [facility] 12/13/2019 18:11:39 Appendectomy add-on completed Not Available [facility] 12/13/2019 18:11:39 Imaging Results None recorded. Procedure Notes None recorded. Medical Equipment None Reported. Allergies Allergen ID Allergen Name Allergen Category Reaction Reaction Severity Criticality Documentation Date Start Date Code Code System Note Provider Name and Address Organization Details Recorded Time 232259 Nitroimid azole (substanc e) medicatio n Not available Not available Not available 12/12/2019 70365 5001 SNOMED Not Available [facility] 0 23:50:45 714481 sulindac medicatio n Not available Not available Not available 12/12/2019 14148 RxNorm Not Available [facility] 0 23:50:45 455817 Medicinal product containin g penicilli n and acting as antibacte rial agent (product) medicatio n itching Not available Not available 12/12/2019 05136 05 SNOMED Not Available [facility] 0 23:50:45 241359 atorvasta tin medicatio n Not available Not available Not available 12/12/2019 33702 RxNorm Not Available [facility] 0 23:50:45 711538 tetracycl ine medicatio n Not available Not available Not available 12/12/2019 85982 RxNorm Not Available [facility] 0 23:50:45 236697 alendrona te sodium medicatio n Not available Not available Not available 12/12/2019 03524 2 RxNorm Not Available [facility] 0 23:50:45 395599 amoxicill in medicatio n Not available Not available Not available 12/12/2019 723 RxNorm Not Available [facility] 0 23:50:45 043664 oxybutyni n chloride Not available dizziness Not available Not available 12/12/2019 63419 RxNorm fatig ue Not Available [facility] 0 23:50:45 254780 aspirin medicatio n Not available Not available Not available 12/12/2019 1191 RxNorm Not Available [facility] 0 23:50:46 344098 losartan Not available Not available Not available Not available 12/12/2019 34630 RxNorm Not Available [facility] 0 23:50:46 025535 estrogens , conjugate d (LONGTERM) medicatio n Not available Not available Not available 12/12/2019 4099 RxNorm Not Available [facility] 0 23:50:46 581915 ciproflox acin medicatio n Not available Not available Not available 12/12/2019 2551 RxNorm Not Available [facility] 0 23:50:46 642868 hydrochlo rothiazid e medicatio n Not available Not available Not available 12/12/2019 5487 RxNorm Not Available [facility] 0 23:50:46 023321 metoprolo l Not available Not available Not available Not available 12/12/2019 6918 RxNorm Not Available [facility] 0 23:50:46 822662 naproxen medicatio n Not available Not available Not available 12/12/2019 7258 RxNorm Not Available [facility] 0 23:50:46 935803 clindamyc in Not available Not available Not available Not available 12/12/2019 2582 RxNorm Not Available [facility] 0 23:50:46 952033 Substance with sulfonami de structure and antibacte rial mechanism of action (substanc e) medicatio n Not available Not available Not available 11/11/2020 43714 8003 SNOMED Lucinda Vossen [facility] 1 11:56:30 078871 Myrbetriq medicatio n swelling Not available Not available 10/05/2021 79725 92 RxNorm RODERICK ALIX [facility] 2 13:18:14 373429 Sambucus Elderberr y Immune medicatio n Not available Not available Not available 04/09/2022 Demetri Bosch [facility] 2 12:14:11 Medications Name Sig Start Date Stop Date Status Note LastModified by Organization Details LastModified Time compounded medication 1 fingerful topically 3 night/wee k 2023 active Not Available Not Available Not Avai lable compounded medication 1 fingerful topically 3 night/wee k 04/28 completed Not Available Not Available Not Available compounded medication 1 fingerful topically 3 night/wee k 2019 active Not Available Not Available Not Avai lable compounded medication 1 fingerful topically 3 night/wee k 2023 active Not Available Not Available Not Avai [...] Not Available Not Available Not Available warfarin 01/31 /2022 completed Not Available Not Available Not Available [...] No t Available Gemtesa 75 mg tablet active Not Available Not Available No t Available BinaxNOW COVID-19 Ag Self Test kit REFER TO MANUFACTU RER INSTRUCTI ONS INCLUED IN PACKAGING 04/28 completed Not Available Not Available Not Available Vitals Date Recorded Body height Body mass index (BMI) Body weight Provider Name and Address Organization Details Last Updated DateTime 04/09/2022 154.94 cm 27.8 kg/m2 30535.08 g Demetri Bosch [facility] 04/09/2022 12:13:52 Date Recorded Body height Body mass index (BMI) Body weight Provider Name and Address Organization Details Last Updated DateTime 12/06/2022 154.94 cm 25.5 kg/m2 72474.97 g Demetri Bosch [facility] 12/06/2022 10:41:56 Date Recorded Body height Body mass index (BMI) Body weight Provider Name and Address Organization Details Last Updated DateTime 04/28/2023 154.94 cm 25.5 kg/m2 52663.97 g Radhika Mathis [facility] 04/28/2023 11:25:35 Date Recorded Body height Body mass index (BMI) Body weight Provider Name and Address Organization Details Last Updated DateTime 09/14/2021 158.75 cm 26.5 kg/m2 83153.08 g Demetri Danitza [facility] 09/14/2021 09:54:39 Date Recorded Body height Body mass index (BMI) Body weight Provider Name and Address Organization Details Last Updated DateTime 09/14/2021 158.75 cm 26.5 kg/m2 75441.08 zeus Sousa Terrence [facility] 09/14/2021 10:08:57 Date Recorded Body height Body mass index (BMI) Body weight Provider Name and Address Organization Details Last Updated DateTime 11/12/2021 154.94 cm 27.8 kg/m2 48446.08 zeus Quevdeodeandre [facility] 11/12/2021 11:32:20 Social History Question Answer Notes LastModified by Organizat ion Details LastModified Time Tobacco Smoking Status Never Smoker Not Available [facility] 12/13/2019 02:00:45 What Is Your Level Of Alcohol Consumption? None Information not available 09/14/2021 What Is Your Level Of Caffeine Consumption? Heavy Information not available 09/14/2021 Are You Currently Employed? No Information not available 09/14/2021 Race White [email or web address] Information n ot available 12/13/2019 Ethnicity Not /Lat vane Information not available 09/14/2021 Preferred Language Bhutanese Information not available 09/14/2021 Recreational Drug Use No Information not available 09/14/2021 Could You Be ? No Information not available 09/14/2021 Marital Status [email or web address] Informati on not available 12/13/2019 What Was The Date Of Your Most Recent Tobacco Screening? 12/06/2022 [email or web address] Information not available 12/06/2022 What Is Your [...] conjugate PCV 13 07/04/2017 completed STEPHEN Germain [facility] 04/28/2023 11:25:40 Past Encounters Encounter ID Performer Location Encounter Start Date Encounter Closed Date Diagnosis/Indication Diagnosis SNOMED-CT Code [id number] Charlotte Smith MD [address] [address] 04/15/2020 10:02:52 04/25/2020 12:54:57 Overactive urinary bladder [id number] Urge incon tinence of urine [id number] Charlotte Smith MD [address] [address] 05/13/2020 10:14:48 05/13/2020 14:22:18 Overactive urinary bladder 274393942 Urge incon tinence of urine 82853059 History of urinary tract infection [id number] Charlotte Smith MD [address] [address] 11/11/2020 11:46:55 11/11/2020 13:40:18 Overactive urinary bladder 068302905 Urge incon tinence of urine 61812957 [id number] Demetri Bosch [facility] [address] e [address] [place] [phone] 11/26/2020 10:15:12 12/02/2020 15:37:48 Overactive urinary bladder 481087922 Nocturia [id number] Charlotte Smith MD [facility] [address] [place] [address] [place] [id number] 08/03/2021 11:31:50 08/03/2021 12:09:22 Overactive urinary bladder 088912614 Urge incon tinence of urine 29764570 Nocturia 510396372 [id number] ELMA Blanco [facility] [address] [place] [address] [place] [id number] 09/14/2021 10:06:36 09/14/2021 14:16:12 Overactive urinary bladder 100022333 Urge incon tinence of urine 06774956 Nocturia 268689005 [id number] Demetri Bosch [facility] [address] [place] [address] [place] [phone] 09/14/2021 09:30:06 09/14/2021 14:31:59 Overactive urinary bladder 137719385 [id number] ELMA Blanco [facility] [address] [place] [address] [place] [phone] 11/12/2021 11:29:59 11/12/2021 12:37:25 Overactive urinary bladder 303116950 Urge incon tinence of urine 33285876 Nocturia 305199909 [id number] Demetri Bosch [facility] [address] [place] [address] [place] [id number] 04/09/2022 11:43:46 04/09/2022 13:38:20 Overactive urinary bladder 263667560 [id number] Demetri Bosch [facility] [address] [place] [address] [place] [id number] 12/06/2022 10:28:13 12/06/2022 11:24:29 Overactive urinary bladder 443659511 [id number] ELMA Blanco [facility] [address] [facility],[address] [phone] 04/28/2023 11:22:38 04/28/2023 12:04:03 Overactive urinary bladder 047793205 Urge incon tinence of urine 29875499 Nocturia [id number] Health Concerns Section Related Observation LastModified by Organization Detai ls LastModified Time None Recorded Concern Status LastModified by Organization Details LastModified Time None Recorded Advance Directives Directive None Recorded Payers Encounter Date Sequence Insurance Name Policy Number Policy Betancourt Covered Member ID Betancourt Member ID Guarantor Name 09/14/2021 1 [place] [employer] [id number] [employer]y [employer] 09/14/2021 2 [facility] [id number] Patsy A Wood [id number] Patsy [employer] Wood 11/12/2021 1 [place] [employer] Patsy [employer] Wood [id number] [employer] 11/12/2021 2 [place] [id number] P[employer]y A Wood [id number] [employer] 04/09/2022 1 [place] [employer] Patsy [employer] Wood [id number] Patsy [employer] Wood 04/09/2022 2 [place] [id number] Patsy A Wood [id number] Patsy [employer] 12/06/2022 1 [place] [employer] Patsy [employer] Wood [id number] Pasty A Wood 12/06/2022 2 [place] [id number] [employer] [id number] [employer]y [employer] 04/28/2023 1 [place] [employer] Patsy [employer] Wood [id number] [employer] 04/28/2023 2 [place] [id number] Patsy A Wood [id number] Patsy A Wood Notes Date Note Type [...] to be almost every hour. ELMA Blanco [address] [place] [address],[address], [place], [address], [facility] 09/14/2021 10:49:41 11/12/2021 text/html HPI Notes: [...] with sjorgrens. This visit was conducted using [employer] phone technology. Prior to conducting our health visit, the patient and I discussed the risks, benefits and alternatives to phone visits. The patient elected to proceed with the phone visit. ELMA Blanco [address] [place] [address],[address], [phone], [facility] 11/12/2021 11:50:24 12/06/2022 text/html HPI Notes: [...] width changed Rate chaanged Resolution changed Demetri Danitza [facility] 12/06/2022 11:08:58 04/28/2023 text/html HPI [...] to be almost every hour. ELMA Blanco [address] [place] [address],[address], [place], [address], [place] [facility] 04/28/2023 11:58:40 OBGyn Episode No OBEpisode recorded.
--- OUTSIDE RECORDS SUMMARY | 2024-02-07 12:36 | XMS_ITS | Continuity of Care Document ---
Author Organization [facility] Address [address] [place] [address] Phone Care Team Providers Care Wool Classer Name Role Phone Helder Mdeina MD Unavailable Unavailabl e Allergies, Adverse Reactions, [...] Antibodies Dna Antibody, Single Strand Dna Antibody, [place] Nuclear Antigen Antibodies Rheumatoid Factor, IGM Rheumatoid Factor, IGG, IGA Advance Directives Directive Yes / No Effective Date File Name No Information Encounters Encounter Description Practice Location Reason(s) For Visit Diagnoses Date Provider Providers Copied on Encounter [facility], [address], [place], [address], [place] tel:[phone] [facility], No Information Apr-- 4 Adam Pendleton. [address], [address], [place], [address], [place]. tel:[phone] Referring Provider: Helder Jain, [address], [place], [address]. tel:[phone] Office/Outpa tient Visit, Est [facility], [address], [place], [address], [place] tel:[phone] [facility], Sjogren syndrome w/ inflammatory arthritisPain in left foot Apr- 0 4 Lebedoff Helder. [address], [address], [place], [address], [place]. tel:[phone] Referring Provider: Helder Jain, [address], [place], [address]. tel:[phone] Office/Outpa tient Visit, Est [facility], [address], [place], [address], [place] tel:[phone] [facility], Sjogren syndrome w/ inflammatory arthritisPrim mauri osteoarthriti s, right hand 3 Lebedoff Helder. [address], [address], [place], [address], [place]. tel:[phone] Referring Provider: Helder Jain, [address], [place], [address]. tel:[phone] Office/Outpa tient Visit, Est [facility], [address], [place], [address], [place] tel:[phone] [facility], Sicca syndrome, unspecifiedWe akness November- 0 3 Lebedoff Helder. [address], [place], [address], [place]. tel:[phone] Referring Provider: Helder Jain, [address], [place], [address]. tel:[phone] Office/Outpa tient Visit, Est [facility], [address], [place], [address], [place] tel:[phone] [facility], Sicca syndrome, unspecifiedPa in in left shoulder Apr- 2 Adam Pendleton. [address], [place], [address], [place]. tel:[phone] Referring Provider: Helder Jain, [address], [place], [address]. tel:[phone] Office/Outpa tient Visit, Est [facility], [address], [place], [address], [place] tel:[phone] [facility], Sicca syndrome, unspecifiedDy spnea Oct- 2 Adam Pendleton. [address], [place], [address], [place]. tel:[phone] Referring Provider: Helder Jain, [address], [place], [address]. tel:[phone] Office/Outpa tient Visit, Est [facility], [address], [place], [address], [place] tel:[phone] [facility], Sicca syndrome, unspecifiedOt her retirement (current) drug therapyPrimar y OA of right handDyspnea Apr- 1 Adam Pendleton. [address], [place], [address], [place]. tel:[phone] Referring Provider: Helder Jain, [address], [place], [address]. tel:[phone] Office/Outpa tient Visit, New [facility], [address], [place], [address], [place] tel:[phone] [facility], Sicca syndrome, unspecifiedPa in in rt ankleOther meterman (current) drug therapy 1 Adam Pendleton. [address], [place], [address], [place]. tel:[phone] Referring Provider: Helder Medina G, [address], [address]. tel:[phone] [facility], [address], [place], [address], [place] tel:[phone] [facility] [place] No Information 1 Mo Sullivan. [facility] [address] [place] [address] [address], [place], [address], [place]. tel:[phone] Family History Family Member Type Diagnosis Age At Onset No Information Immunizations Vaccine Date Status Comments COVID-19 Moderna administered Source: Ot er Provider COVID-19 Pfizer administered Note: 1 ; Source: Other Provider Payers Payer name Insurance type Covered alliance party ID Authoriza tion(s) [employer] Medicare Adv [id number] MB [id number] Social History Type Description Quantity Date Captured [...] Order Fo ot X-ray; Complete (3+ views) (87603), Sent on: Sent History Of Present Illness [...]
--- OUTSIDE RECORDS SUMMARY | 2024-02-07 12:36 | XMS_ITS | Clinical Summary ---
Author Organization [facility] Address [place], [place] [address] Care Team Providers Care Incident Response Manager Name Role Phone Kd Restrepo MD Unavailable [phone] Cody Veliz MD Unavailable [phone] Maritza Rendon DO Primary Care Provide r [...] SOB (shortness of breath) 01/25/2020 Fatigue 01/25/2020 halfway current use of systemic steroids 09/27 Prediabetes [...] Date Anticoagulation monitoring, INR range 2-3 [Z79.01]; [place] Target 2.5-3.0 12/06/2016 1 Pessary maintenance 02/25/2016 [...] Department Care Team Description 01/19/2024 Orders Only [facility] Scanner 1 scan: (1-Ord) [facility], CLINICAL LABORATORY REPORT, 01/19/2024 01/19/2024 Orders Only [facility] Scanner 1 scan: (1-Ord) [facility], CLINIC LABORATORY REPORT, 01/19/2024 01/18/2024 Orders Only [facility] Scanner 1 scan: (1-Ord) [facility], CLINICAL LABORATORY REPORT, 01/18/2024 01/18/2024 Orders Only [facility] Scanner 1 scan: (1-Ord) [facility], CLINICAL LABORATORY REPORT, 01/18/2024 01/18/2024 Orders Only [facility] Scanner 1 scan: (1-Ord) [facility], CLINICAL LABORATORY REPORT, 01/18/2024 01/18/2024 Orders Only [facility] Scanner 1 scan: (1-Ord) [facility], CT ABDOMEN PELVIS W CON, 01/18/2024 01/18/2024 Orders Only [facility] Scanner 1 scan: (1-Ord) [facility], US ABDOMEN LIMITED, 01/18/2024 01/06/2024 Telephone [facility] [address] [place] [phone] Charlotte Anderson MD Questions (Concern about wound) 01/03/2024 Orders Only [facility] Scanner 1 scan: (1-Ord) [facility], CLINICAL LABORATORY REPORT, 01/03/2024 12/30/2023 Transcribe Orders [facility] [address] [place] [phone] Charlotte Anderson MD 12/13/2023 Orders Only [facility] Scanner 1 scan: (1-Ord) [facility], CLINICAL LABORATORY REPORT, 12/13/2023 12/12/2023 Lab Requisition [facility] [phone] Unknown, Doctor 12/09/2023 Telephone [facility] [address] [place] [address] Charlotte Anderson MD Care Coordination 12/05/2023 11:00 AM CDT Office Visit [facility] [address] [place] [phone] Charlotte Anderson MD Follow Up (LLE wound follow up ) 12/05/2023 8:56 AM CDT - 12/05/2023 11:59 PM CDT Hospital Encounter [facility] [address] [place] [address] Charlotte Anderson MD Venous insufficiency; Venous stasis ulcer of ankle, left (HC) 12/05/2023 Travel 11/23/2023 9:30 AM CDT Office Visit [facility] [address] [place] [address] Charlotte Anderson MD Ankle Pain/problem (L medial malleolar ulcer) 11/23/2023 6:47 AM CDT - 11/23/2023 11:59 PM CDT Hospital Encounter [facility] [address] [place] [address] Charlotte Anderson MD PAD (peripheral artery disease) (HC) 11/22/2023 Travel from Last 3 Months Immunizations Name Administration Dates Next Due AMB INFLUENZA IIV3 (AGE 65+ YRS) PF (Flu Clinic Only) 03/23/2017 AMB Influenza, IIV3 (Age >=3 years) Preserve Free (Flu Clinic Only) 04/08/2009 AMB Influenza, IIV3 (Age >=3 years)(Flu Clinic Only) 04/06/2013,04/16/2011,04/24/2008 COVID-19 vaccine ([employer] 30mcg/0.3mL) PF, MDV 09/02/2020,08/12/2020 Influenza A (H1N1), [...] CDT Appointment [facility] [address] [facility] [address] [place] [address] 02/16/2024 8:00 AM CDT Procedure Only [facility] [address] [place] [phone] Charlotte Anderson MD [address] [place] [address] 02/17/2024 11:30 AM CDT Appointment [facility] [address] [place] [address] 02/28/2024 10:00 AM CDT Office Visit [facility] [address] [place], [place] [phone] [place] [address] [address] [address] 03/01/2024 3:30 PM CDT Office Visit [facility] [address] [address] Olvin Haji MD [facility] [place] [address] Health Maintenance Due Date Last Done Comments [...] 01/13/2016, 12/18/2010 Medical Devices Implanted Type Area Cook Chill Technician Device Identifier Shelf Expiration Date Model / Serial / Lot Lead Kit 4.32mm Spacing 28cm Length Interstim - [id number] Implanted:Qty: 1 on 04/01/2020 by Charlotte Smith MD at [facility] N/A: Sacrum [employer] Pain Therapy 09/30/2021 [id number] / / [id number] Stimulator 7.7mm 14cc Interstim Ii - [id number] Implanted:Qty: 1 on 04/01/2020 by Charlotte Smith MD at [facility] N/A: Sacrum [employer] Pain Therapy 03/31/2021 [id number]# / [id number] / Description:PIN [id number] Procedures Procedure Name Priority Date/Time Associated Diagnosis [...] 2 SITES AXIAL Routine 07/02/2019 11:48 AM WELFARE SERVICE AIDE Osteopenia of multiple sites from Last 3 [...] CDT) CULTURE RESULT(A) 12/17/2023 2:44 PM CDT [facility] CULTURE 1+ Acinetobacter species 12/17/2023 2:44 PM CDT [facility] Other (Left [...] Acinetobacter species MEROPENEM S Doctor Unknown MICROBIOLOGY [facility] [address] [place] [address], * US VENOUS INSUFFICIENCY LOWER EXTREMITY BILATERAL [...] US VENOUS INSUFFICIENCY LOWER EXTREMITY BILATERAL LOCATION: [facility] DATE: 12/05/2023 INDICATION: [...] when greater than 600 ms flow reversal. Bookkeeper Assistant vein reflux reported as greater than 350 [...] US VENOUS INSUFFICIENCY LOWER EXTREMITY BILATERAL LOCATION: [facility] DATE: 12/05/2023 INDICATION: [...] reported when greater than 600ms flow reversal. Bookkeeper Assistant vein reflux reported as greater than 350 [...] VASCULAR ULTRASOUND REPORT RODERICKCONSTANZA HEATON Accession#: ?? [id number] : ?1940 ??Study Date: ?? 11/23/2023 7:17:22 AM Age: ?83 years ?? Tech: ? KBN/CRK Gender: F ?Referring MD: CHARLOTTE ANDERSON Site: [facility] Study performed: ?Lower extremity resting MINOR, [...] ? Index +-----+ +--------+ +-----+ 1.24 ?241 ?GALLEY HAND ?107 ? 0.55 +-----+ +--------+ +-----+ 1.23 ?238 ?DPA ?147 ? 0.76 +-----+ +--------+ +-----+ 0.63 ?122 ? Digit 1 ?45 ? 0.23 +-----+ +--------+ +-----+ Wang Dela Cruz MD. Electronically signed on 11/23/2023 12:17:56 PM This study was performed and interpreted by a service accredited by the Intersocietal Accreditation Commission (IAC/Vascular), [email or web address].org/vascular Report generated by [employer]. ??Final ?? Procedure Note Wang Dela Cruz MD - 11/23/2023 VASCULAR ULTRASOUND REPORT RODERICK HEATON : 1940 Study Date: 11/23/2023 7:17:22 AM Age: 83 years Tech: ARISTIDES/JOHNNY Gender: F Referring MD: CHARLOTTE ANDERSON Site: [facility] Study performed: Lower extremity resting MINOR, [...] 194 Index +-----+ +--------+ +-----+ 1.24 241 GALLEY HAND 107 0.55 +-----+ +--------+ +-----+ 1.23 238 DPA 147 0.76 +-----+ +--------+ +-----+ 0.63 122 Digit 1 45 0.23 +-----+ +--------+ +-----+ Wang Dela Cruz MD. Electronically signed on 11/23/2023 12:17:56 PM This study was performed and interpreted by a service accredited by theIntersocietal Accreditation Commission (IAC/Vascular),[email or web address].org/vascular Report generated by [employer]. Final Charlotte Anderson MD US * US ARTERIAL LOWER EXTREMITY BILATERAL (11/23/2023 8:37 AM CDT) Anatomical Region Laterality Modality LEGS, LEG L, LEG R Ultrasound 11/23/2023 7:26 AM CDT Narrative 11/23/2023 12:22 PM CDT VASCULAR ULTRASOUND REPORT RODERICK HEATON Accession#: ?? [id number] : ?1940 ??Study Date: ?? 11/23/2023 7:26:56 AM Age: ?83 years ?? Tech: ? KBN/CRK Gender: F ?Referring MD: CHARLOTTE ANDERSON Site: [facility] Vascular [facility] Study performed: ?Lower extremity duplex [...] DST ? 104 ? +--------+ + +-----+ PROGRAM COUNSELOR DST ? 111 ? +--------+ + +-----+ PFA ? 88 ? +--------+ + +-----+ SFA PRX ? 111 ? +--------+ + +-----+ SFA MID ? 66 ? +--------+ + +-----+ SFA DST ? 415 ? 64 ? 6.5 ?? +--------+ + +-----+ COLLIN PRX ? 101 ? +--------+ + +-----+ COLLIN DST ? 41 ? +--------+ + +-----+ GALLEY HAND DST ? 80 ? +--------+ + +-----+ KAREN DST ? 38 ? +--------+ + +-----+ LAXMI DST -179 retro ? +--------+ + +-----+ DPA ?-34 retro ? +--------+ + +-----+ +--------+ + +-----+ LEFT ? Velocity cm/s PRE ? Ratio ? Velocity cm/s ? Phasicity ? +--------+ + +-----+ EIA DST ? 100 ? +--------+ + +-----+ PROGRAM COUNSELOR DST ? 98 ? +--------+ + +-----+ PFA ? 73 ? +--------+ + +-----+ SFA PRX ? 100 ? +--------+ + +-----+ SFA MID ? 52 ? +--------+ + +-----+ SFA DST ? 44 ? +--------+ + +-----+ COLLIN PRX ? 674 ? 55 ? 12.3 +--------+ + +-----+ COLLIN DST ? 27 ? +--------+ + +-----+ GALLEY HAND DST ? 11 ? +--------+ + +-----+ [...] Accreditation Commission (IAC/Vascular), www.intersocietal.org/vascular Report generated by [employer]. ??Final ?? Procedure Note Wang Dela Cruz MD - 11/23/2023 VASCULAR ULTRASOUND REPORT RODERICK HEATON : 1940 Study Date: 11/23/2023 7:26:56 AM Age: 83 years Tech: ARISTIDES/JOHNNY Gender: F Referring MD: CHARLOTTE ANDERSON Site: [facility] Vascular [facility] Study performed: Lower extremity duplex [...] +-----+ EIA DST 104 +--------+ + +-----+ PROGRAM COUNSELOR DST 111 +--------+ + +-----+ PFA 88 +--------+ + +-----+ SFA PRX 111 +--------+ + +-----+ SFA MID 66 +--------+ + +-----+ SFA DST 415 64 6.5 +--------+ + +-----+ COLLIN PRX 101 +--------+ + +-----+ COLLIN DST 41 +--------+ + +-----+ GALLEY HAND DST 80 +--------+ + +-----+ KAREN DST 38 +--------+ + +-----+ LAXMI DST -179 retro +--------+ + +-----+ DPA -34 retro +--------+ + +-----+ +--------+ + +-----+ LEFT Velocity cm/s PRE Ratio Velocity cm/s Phasicity +--------+ + +-----+ EIA DST 100 +--------+ + +-----+ PROGRAM COUNSELOR DST 98 +--------+ + +-----+ PFA 73 +--------+ + +-----+ SFA PRX 100 +--------+ + +-----+ SFA MID 52 +--------+ + +-----+ SFA DST 44 +--------+ + +-----+ COLLIN PRX 674 55 12.3 +--------+ + +-----+ COLLIN DST 27 +--------+ + +-----+ GALLEY HAND DST 11 +--------+ + +-----+ LAXMI DST [...] theIntersocietal Accreditation Commission (IAC/Vascular),www.[email or web address]/vascular Report generated by [employer]. Final Charlotte Anderson MD US * (ABNORMAL) XR DXA BONE DENSITY 2 SITES AXIAL (07/02/2019 11:48 AM WELFARE SERVICE AIDE) Anatomical Region Laterality Modality Spine, HIPS, HIPL, HIPR Other Narrative 07/06/2019 11:01 AM WELFARE SERVICE AIDE Please see scanned document for results of this study. Rakel Connor DO DEXA from Last 3 Months or Most Recently Relevant to Health Maintenance Advance Directives Documents on File Type Date Recorded Patient Hose Handler Expl anation Healthcare Directive 07/19/2016 2:58 PM [...] 8:45 AM 09/01/2016 4:04 PM Care Teams Incident Response Manager Relationship Specialty Start Date End Date Maritza Rendon DO [address] [place] [address] PCP - General Family Practice 12/30/22 Kd Restrepo MD Endocrinology 11/24/11 Cody Veliz MD Rheumatology 11/24/11
--- OUTSIDE RECORDS SUMMARY | 2024-02-07 12:36 | XMS_ITS | Continuity of Care Document ---
Author Organization [facility] Address [address] [place] [address] Phone Care Team Providers Care Near Eastern Archaeology Lecturer Name Role Phone Usha Dickinson Unavailable Unavailable [...] on Encounter [facility], [address], [facility] [place], [id number], [place] tel:[phone] No Information [facility]. [facility], [address], [place], [place], [address] , [place]. [phone] Office/Outpat ient Visit,Est, Mod [facility], [address], [place], [place], [address], [place] tel:[phone] [facility] Other forms of scoliosis, thoracolumbar regionL2 wedge compression fracture, initial encounter for closed fractureSpondy lolisthesis, lumbar region 0 Puente Usha. [facility], [address], [place], [place], [address] , [place]. tel:[phone] Referring Provider: Rakel Arvizu, [facility] [address] [place], [address]. tel:[phone] Office/Outpat ient Visit,Est, Mod [facility], [address], [facility] [place], [id number], [place] tel:[phone] [facility] L2 wedge compression fracture, initial encounter for closed fractureOther forms of scoliosis, thoracolumbar regionSpondylo listhesis, lumbar region 0 Kwame Kerr. [facility], [address], [place], [place], [address] , . tel:[phone] Referring Provider: Rakel Arvizu [facility] [address] [place], [address]. tel:[phone] Office/Outpat ient Visit,[facility], [facility], [address], [facility] [place], [address], [place] tel:[phone] [facility] [place] L2 wedge compression fracture, initial encounter for closed fractureOther forms of scoliosis, thoracolumbar regionSpondylo listhesis, lumbar region 0 Kwame Kerr. [facility], [address], [place], [place], [address] , [place]. tel:[phone] Referring Provider: Rakel Arvizu [facility] [address] [place], [address]. tel:[phone] Family History Family Member Type Diagnosis Age At Onset No Information Payers Payer name Insurance type Covered libertarian ID Authoralethaa tishannon(s) Medicare MB [id number] [facility] [id number] [facility] [id number] Social History Type Description Quantity Date Captured [...]
--- NOTE | 2024-02-07 13:00 | CRLHL7_ITS ---
For Patients: As a result of the Century Cures Act, medical imaging exams and procedure reports are released immediately into your electronic medical record. You may view this report before your referring provider. If you have questions, please contact your health care provider. INDICATION: Increased attenuation of the renal collecting systems. COMPARISON: CT scan of the abdomen and pelvis dated 18 January 2024. TECHNIQUE: Abdominal MRI with T1 in- and out of phase, T2, diffusion weighted, and progressively delayed post-contrast images. Intravenous gadolinium administered. FINDINGS: No fatty infiltration of the liver. No focal abnormalities identified in the visualized portions of the liver, spleen, and adrenal glands. 1.1 cm cyst in the tail of the pancreas. A few other tiny pancreatic cyst. The pancreas is otherwise unremarkable. A few small bilateral renal cysts. The kidneys are otherwise unremarkable. No abnormalities of the renal pelves or upper ureters identified. No adenopathy. IMPRESSION: 1. No abnormalities of the renal pelves or upper ureters identified. A few small bilateral renal cysts. The kidneys are otherwise unremarkable. 2. 1.1 cm cyst in the tail of the pancreas. Consider followup MRI in 2 years for documentation of stability. Management of Incidental Pancreatic Cysts: A White Paper of the ACR Incidental Findings Committee. Journal of the [place] [employer]. Volume 14, Number 7, January 2017, pages 911-928. Dictated by Cisco Bullock MD @ 02/09/2024 2:42:38 PM (Electronically Signed)
== END 2024-02-07 12:32 | disposition home or self-care (01) ==
LOC: MRI 12:32
PROVIDERS: PCP Physician Assistant Medical; Visit Provider Registered Nurse
DX: Z09 Encounter for follow-up examination after completed treatment for conditions other than malignant neoplasm (principal); K86.2 Cyst of pancreas; N28.1 Cyst of kidney, acquired
CPT/HCPCS: 74183; A9575

== ENCOUNTER 2024-02-10 09:52 | Outpatient (CLI) | payer OTHER, SELFPAY ==
--- OUTSIDE RECORDS SUMMARY | 2024-02-10 09:54 | XMS_ITS | Continuity of Care Document ---
Author Organization [facility] Address [address] [place] [address] Phone Care Team Providers Care Platemaker Name Role Phone Usha Dickinson Unavailable Unavailable [...] on Encounter [facility], [address], [place], [place], [id number], [place] tel:[phone] No Information [facility]. [facility], [address], [place], [place], [address] , [place]. [phone] Office/Outpat ient Visit,Est, Mod [facility], [address], [place], [place], [address], [place] tel:[phone] [facility] Other forms of scoliosis, thoracolumbar regionL2 wedge compression fracture, initial encounter for closed fractureSpondy lolisthesis, lumbar region 0 [facility]. [facility], [address], [place], [place], [address] , [place]. tel:[phone] Referring Provider: Rakel Arvziu, [facility] [address] [place], [address]. tel:[phone] Office/Outpat ient Visit,Est, Mod [facility], [address], [facility] [place], [address], [place] tel:[phone] [facility] L2 wedge compression fracture, initial encounter for closed fractureOther forms of scoliosis, thoracolumbar regionSpondylo listhesis, lumbar region 0 Kwame Kerr. [facility], [address], [place], [place], [address] , . tel:[phone] Referring Provider: Rakel Arvizu [employer] [address] [place], [address]. tel:[phone] Office/Outpat ient Visit,[facility], [facility], [address], [facility] [place], [address], [place] tel:[phone] [facility] [place] L2 wedge compression fracture, initial encounter for closed fractureOther forms of scoliosis, thoracolumbar regionSpondylo listhesis, lumbar region 0 Kwame Kerr. [facility], [address], [place], [place], [address] , [place]. tel:[phone] Referring Provider: Rakel Arvizu [employer] [address] [place], [address]. tel:[phone] Family History Family Member Type Diagnosis Age At Onset No Information Payers Payer name Insurance type Covered democrat ID Authoralethaa tishannon(s) Medicare MB [id number] [facility] [id number] [facility] [id number] Social History Type Description Quantity Date Captured [...]
--- OUTSIDE RECORDS SUMMARY | 2024-02-10 09:54 | XMS_ITS | Continuity of Care Document ---
Author Organization [facility] Address [address] [place] [address] Phone Care Team Providers Care Bed Manager Name Role Phone Helder Medina MD Unavailable [...] Antibodies Dna Antibody, Single Strand Dna Antibody, [place] Nuclear Antigen Antibodies Rheumatoid Factor, IGM Rheumatoid Factor, IGG, IGA Advance Directives Directive Yes / No Effective Date File Name No Information Encounters Encounter Description Practice Location Reason(s) For Visit Diagnoses Date Provider Providers Copied on Encounter [facility], [address], [place], [address], [place] tel:[phone] [facility], No Information Apr-- 4 Adam Pendleton. [address], [address], [place], [address], [place]. tel:[phone] Referring Provider: Helder Jain, [address], [place], [address]. tel:[phone] Office/Outpa tient Visit, Est [facility], [address], [place], [address], [place] tel:[phone] [facility], Sjogren syndrome w/ inflammatory arthritisPain in left foot Apr- 0 4 Lebedoff Helder. [address], [address], [place], [address], [place]. tel:[phone] Referring Provider: Helder Jain, [address], [place], [address]. tel:[phone] Office/Outpa tient Visit, Est [facility], [address], [place], [address], [place] tel:[phone] [facility], Sjogren syndrome w/ inflammatory arthritisPrim mauri osteoarthriti s, right hand 3 Lebedoff Helder. [address], [address], [place], [address], [place]. tel:[phone] Referring Provider: Helder Jain, [address], [place], [address]. tel:[phone] Office/Outpa tient Visit, Est [facility], [address], [place], [address], [place] tel:[phone] [facility], Sicca syndrome, unspecifiedWe akness November- 0 3 Lebedoff Helder. [address], [address], [place], [address], [place]. tel:[phone] Referring Provider: Helder Jain, [address], [place], [address]. tel:[phone] Office/Outpa tient Visit, Est [facility], [address], [place], [address], [place] tel:[phone] [facility], Sicca syndrome, unspecifiedPa in in left shoulder Apr- 2 Adam Pendleton. [address], [address], [place], [address], [place]. tel:[phone] Referring Provider: Helder Jain, [address], [place], [address]. tel:[phone] Office/Outpa tient Visit, Est [facility], [address], [place], [address], [place] tel:[phone] [facility], Sicca syndrome, unspecifiedDy spnea Oct- 2 Adam Pendleton. [address], [address], [place], [address], [place]. tel:[phone] Referring Provider: Helder Jain, [address], [place], [address]. tel:[phone] Office/Outpa tient Visit, Est [facility], [address], [place], [address], [place] tel:[phone] [facility], Sicca syndrome, unspecifiedOt her fdc (current) drug therapyPrimar y OA of right handDyspnea Apr- 1 Adam Pendleton. [address], [address], [place], [address], [place]. tel:[phone] Referring Provider: Helder Jain, [address], [place], [address]. tel:[phone] Office/Outpa tient Visit, New [facility], [address], [place], [address], [place] tel:[phone] [facility], Sicca syndrome, unspecifiedPa in in rt ankleOther termination clerk (current) drug therapy 1 Adam Pendleton. [address], [address], [place], [address], [place]. tel:[phone] Referring Provider: Helder Medina G, [address], [address]. tel:[phone] [facility], [address], [place], [address], [place] tel:[phone] [facility] No Information 1 Mo Sullivan. [facility] [address] [place] [address] [address], [place], [address], [place]. tel:[phone] Family History Family Member Type Diagnosis Age At Onset No Information Immunizations Vaccine Date Status Comments COVID-19 Moderna administered Source: Ot er Provider COVID-19 Pfizer administered Note: 1 ; Source: Other Provider Payers Payer name Insurance type Covered republican ID Authoriza tion(s) [employer] Adv [id number] MB [id number] Social History Type Description Quantity Date Captured [...] Order Fo ot X-ray; Complete (3+ views) (73802), Sent on: Sent History Of Present Illness [...]
--- OUTSIDE RECORDS SUMMARY | 2024-02-10 09:54 | XMS_ITS | Clinical Summary ---
Author Organization [facility] Address [place], [place] [address] Care Team Providers Care Physiatrist Name Role Phone Kd Restrepo MD Unavailable [phone] Cody Veliz MD Unavailable [phone] Maritza Rendon DO Primary Care Provide r [...] SOB (shortness of breath) 01/25/2020 Fatigue 01/25/2020 [facility] current use of systemic steroids 09/27 Prediabetes [...] Date Anticoagulation monitoring, INR range 2-3 [Z79.01]; Baxter Target 2.5-3.0 12/06/2016 1 Pessary maintenance 02/25/2016 [...] Encounters Date Type Department Care Team Description 02/10/[address] [address] Charlotte Springer MD Pre Procedure Instructions 01/19/2024 Orders Only [facility] Scanner 1 scan: (1-Ord) [facility], CLINICAL LABORATORY REPORT, 01/19/2024 01/19/2024 Orders Only [facility] Scanner 1 scan: (1-Ord) [facility], CLINIC LABORATORY REPORT, 01/19/2024 01/18/2024 Orders Only [facility] Scanner 1 scan: (1-Ord) [facility], CLINICAL LABORATORY REPORT, 01/18/2024 01/18/2024 Orders Only [facility] Scanner 1 scan: (1-Ord) [facility], CLINICAL LABORATORY REPORT, 01/18/2024 01/18/2024 Orders Only [facility] Scanner 1 scan: (1-Ord) [facility], CLINICAL LABORATORY REPORT, 01/18/2024 01/18/2024 Orders Only [facility] Scanner 1 scan: (1-Ord) [facility], CT ABDOMEN PELVIS W CON, 01/18/2024 01/18/2024 Orders Only [facility] Scanner 1 scan: (1-Ord) [facility], [place] ABDOMEN LIMITED, 01/18/2024 01/06/2024 Telephone [facility] [address] [place] [phone] Charlotte Springer MD Questions (Concern about wound) 01/03/2024 Orders Only [facility] Scanner 1 scan: (1-Ord) [facility] CLINICAL LABORATORY REPORT, 01/03/2024 12/30/2023 Transcribe Orders [facility] [address] [place] [phone] Charlotte Springer MD 12/13/2023 Orders Only [facility] Scanner 1 scan: (1-Ord) [facility] CLINICAL LABORATORY REPORT, 12/13/2023 12/12/2023 Lab Requisition [facility] [phone] Unknown, Doctor 12/09/2023 Telephone [facility] [address] [place] [address] Charlotte Springer MD Care Coordination 12/05/2023 11:00 AM CDT Office Visit [facility] [address] [place] [phone] Charlotte Springer MD Follow Up (LLE wound follow up ) 12/05/2023 8:56 AM CDT - 12/05/2023 11:59 PM CDT Hospital Encounter [facility] [address] [place] [address] Charlotte Springer MD Venous insufficiency; Venous stasis ulcer of ankle, left (HC) 12/05/2023 Travel 11/23/2023 9:30 AM CDT Office Visit [facility] [address] [place] [address] Charlotte Springer MD Ankle Pain/problem (L medial malleolar ulcer) 11/23/2023 6:47 AM CDT - 11/23/2023 11:59 PM CDT Hospital Encounter [facility] [address] [place] [address] Charlotte Springer MD PAD (peripheral artery disease) (HC) 11/22/2023 Travel from Last 3 Months Immunizations Name Administration Dates Next Due AMB INFLUENZA IIV3 (AGE 65+ YRS) PF (Flu Clinic Only) 03/23/2017 AMB Influenza, IIV3 (Age >=3 years) Preserve Free (Flu Clinic Only) 04/08/2009 AMB Influenza, IIV3 (Age >=3 years)(Flu Clinic Only) 04/06/2013,04/16/2011,04/24/2008 COVID-19 vaccine ([employer] 30mcg/0.3mL) PF, MDV 09/02/2020,08/12/2020 Influenza A [...] IMAGING [address] [place] [address] 02/16/2024 8:00 AM CDT Procedure Only [facility] [address] [place] [phone] Charlotte Springer MD [address] [place] [address] 02/17/2024 11:30 AM CDT Appointment [facility] [address] [place] [address] 02/28/2024 10:00 AM CDT Office Visit [facility] [address] [place], [place] [phone] [place] [address] [place] [address] 03/01/2024 3:30 PM CDT Office Visit [facility] [address] [place], [place] [address] Olvin Haji MD [facility] [place] [address] Health Maintenance Due Date Last Done Comments [...] 01/13/2016, 12/18/2010 Medical Devices Implanted Type Area Raw Juice Weigher Device Identifier Shelf Expiration Date Model / Serial / Lot Lead Kit 4.32mm Spacing 28cm Length Interstim - [id number] Implanted:Qty: 1 on 04/01/2020 by Charlotte Smith MD at [facility] N/A: Sacrum [employer] Pain Therapy 09/30/2021 [id number] / / [id number] Stimulator 7.7mm 14cc Interstim Ii - [id number] Implanted:Qty: 1 on 04/01/2020 by Charlotte Smith MD at [facility] N/A: Sacrum [employer] Pain Therapy 03/31/2021 [id number] / [id number] / Description:PIN [id number] Procedures Procedure Name Priority Date/Time Associated Diagnosis Comments SCAN-LABORATORY REPORT 4 12:00 AM CDT SCAN-LABORATORY REPORT 4 12:00 AM CDT SCAN-LABORATORY REPORT 4 12:00 AM CDT SCAN-LABORATORY REPORT 4 12:00 AM CDT SCAN-LABORATORY REPORT 4 12:00 AM CDT SCAN-CT INTERPRETATION 4 12:00 AM CDT SCAN-ULTRASOUND REPORT 12:00 AM CDT SCAN-LABORATORY REPORT 4 12:00 AM CDT SCAN-LABORATORY REPORT 4 12:00 AM CDT REFERRAL ID/SUSC,NONURINE Routine 12/08/2023 11:47 AM CDT [...] 2 SITES AXIAL Routine 07/02/2019 11:48 AM SHORTHAND REPORTER Osteopenia of multiple sites from Last 3 [...] CDT) CULTURE RESULT(A) 12/17/2023 2:44 PM CDT [facility] CULTURE 1+ Acinetobacter species 12/17/2023 2:44 PM CDT [facility] Other (Left Leg) Client Collect / Unknown 12/08/2023 11:47 AM CDT 12/12/2023 10:11 PM CDT Narrative Organism Antibiotic Method Susceptibility Acinetobacter species TRIMETHOPRIM/SULF S Acinetobacter species GENTAMICIN S Acinetobacter species CEFTAZIDIME R Acinetobacter species LEVOFLOXACIN S Acinetobacter species CIPROFLOXACIN I Acinetobacter species PIPERACILLIN/TAZO I Acinetobacter species AMPICILLIN/SULBACTAM S Acinetobacter species TOBRAMYCIN S Acinetobacter species MEROPENEM S Doctor Unknown MICROBIOLOGY [facility] [address] [place] [address], [place] * US VENOUS INSUFFICIENCY LOWER EXTREMITY [...] US VENOUS INSUFFICIENCY LOWER EXTREMITY BILATERAL LOCATION: [facility] DATE: 12/05/2023 INDICATION: [...] when greater than 600 ms flow reversal. Medical File Clerk vein reflux reported as greater than 350 [...] US VENOUS INSUFFICIENCY LOWER EXTREMITY BILATERAL LOCATION: [facility] DATE: 12/05/2023 INDICATION: [...] reported when greater than 600ms flow reversal. Medical File Clerk vein reflux reported as greater than 350 [...] VASCULAR ULTRASOUND REPORT RODERICK HEATON Accession#: ?? [id number] : ?1940 ??Study Date: ?? 11/23/2023 7:17:22 AM Age: ?83 years ?? Tech: ? KBN/CRK Gender: F ?Referring MD: CHARLOTTE SPRINGER Site: [facility] Study performed: ?Lower extremity resting MINOR, [...] ? Index +-----+ +--------+ +-----+ 1.24 ?241 ?RAILWAY STATION MANAGER ?107 ? 0.55 +-----+ +--------+ +-----+ 1.23 ?238 ?DPA ?147 ? 0.76 +-----+ +--------+ +-----+ 0.63 ?122 ? Digit 1 ?45 ? 0.23 +-----+ +--------+ +-----+ Wang Dela Cruz MD. Electronically signed on 11/23/2023 12:17:56 PM This study was performed and interpreted by a service accredited by the Intersocietal Accreditation Commission (IAC/Vascular), [email or web address]/vascular Report generated by [facility]. ??Final ?? Procedure Note Wang Dela Cruz MD - 11/23/2023 VASCULAR ULTRASOUND REPORT RODERICK HEATON : 1940 Study Date: 11/23/2023 7:17:22 AM Age: 83 years Tech: ARISTIDES/JOHNNY Gender: F Referring MD: CHARLOTTE SPRINGER Site: [facility] Study performed: Lower extremity resting MINOR, [...] 194 Index +-----+ +--------+ +-----+ 1.24 241 RAILWAY STATION MANAGER 107 0.55 +-----+ +--------+ +-----+ 1.23 238 DPA 147 0.76 +-----+ +--------+ +-----+ 0.63 122 Digit 1 45 0.23 +-----+ +--------+ +-----+ Wang Dlea Cruz MD. Electronically signed on 11/23/2023 12:17:56 PM This study was performed and interpreted by a service accredited by theIntersocietal Accreditation Commission (IAC/Vascular),[email or web address]/vascular Report generated by [facility]. Final Charlotte Springer MD US * US ARTERIAL LOWER EXTREMITY BILATERAL (11/23/2023 8:37 AM CDT) Anatomical Region Laterality Modality LEGS, LEG L, LEG R Ultrasound 11/23/2023 7:26 AM CDT Narrative 11/23/2023 12:22 PM CDT VASCULAR ULTRASOUND REPORT RODERICK HEATON Accession#: ?? [id number] : ?1940 ??Study Date: ?? 11/23/2023 7:26:56 AM Age: ?83 years ?? Tech: ? KBN/CRK Gender: F ?Referring MD: CHARLOTTE SPRINGER Site: [facility] Study performed: ?Lower extremity duplex US, [...] DST ? 104 ? +--------+ + +-----+ NURSE PRACTITIONER ADULT DST ? 111 ? +--------+ + +-----+ PFA ? 88 ? +--------+ + +-----+ SFA PRX ? 111 ? +--------+ + +-----+ SFA MID ? 66 ? +--------+ + +-----+ SFA DST ? 415 ? 64 ? 6.5 ?? +--------+ + +-----+ COLLIN PRX ? 101 ? +--------+ + +-----+ COLLIN DST ? 41 ? +--------+ + +-----+ RAILWAY STATION MANAGER DST ? 80 ? +--------+ + +-----+ KRAEN DST ? 38 ? +--------+ + +-----+ LAXMI DST -179 retro ? +--------+ + +-----+ DPA ?-34 retro ? +--------+ + +-----+ +--------+ + +-----+ LEFT ? Velocity cm/s PRE ? Ratio ? Velocity cm/s ? Phasicity ? +--------+ + +-----+ EIA DST ? 100 ? +--------+ + +-----+ NURSE PRACTITIONER ADULT DST ? 98 ? +--------+ + +-----+ PFA ? 73 ? +--------+ + +-----+ SFA PRX ? 100 ? +--------+ + +-----+ SFA MID ? 52 ? +--------+ + +-----+ SFA DST ? 44 ? +--------+ + +-----+ COLLIN PRX ? 674 ? 55 ? 12.3 +--------+ + +-----+ COLLIN DST ? 27 ? +--------+ + +-----+ RAILWAY STATION MANAGER DST ? 11 ? +--------+ + +-----+ [...] Accreditation Commission (IAC/Vascular), [email or web address]/vascular Report generated by [facility]. ??Final ?? Procedure Note Wang Dela Cruz MD - 11/23/2023 VASCULAR ULTRASOUND REPORT RODERICK HEATON : 1940 Study Date: 11/23/2023 7:26:56 AM Age: 83 years Tech: ARISTIDES/JOHNNY Gender: F Referring MD: CHARLOTTE SPRINGER Site: [facility] V[facility] Study performed: Lower extremity duplex US, [...] +-----+ EIA DST 104 +--------+ + +-----+ NURSE PRACTITIONER ADULT DST 111 +--------+ + +-----+ PFA 88 +--------+ + +-----+ SFA PRX 111 +--------+ + +-----+ SFA MID 66 +--------+ + +-----+ SFA DST 415 64 6.5 +--------+ + +-----+ COLLIN PRX 101 +--------+ + +-----+ COLLIN DST 41 +--------+ + +-----+ RAILWAY STATION MANAGER DST 80 +--------+ + +-----+ KAREN DST 38 +--------+ + +-----+ LAXMI DST -179 retro +--------+ + +-----+ DPA -34 retro +--------+ + +-----+ +--------+ + +-----+ LEFT Velocity cm/s PRE Ratio Velocity cm/s Phasicity +--------+ + +-----+ EIA DST 100 +--------+ + +-----+ NURSE PRACTITIONER ADULT DST 98 +--------+ + +-----+ PFA 73 +--------+ + +-----+ SFA PRX 100 +--------+ + +-----+ SFA MID 52 +--------+ + +-----+ SFA DST 44 +--------+ + +-----+ COLLIN PRX 674 55 12.3 +--------+ + +-----+ COLLIN DST 27 +--------+ + +-----+ RAILWAY STATION MANAGER DST 11 +--------+ + +-----+ LAXMI DST [...] theIntersocietal Accreditation Commission (IAC/Vascular),[email or web address]/vascular Report generated by [facility]. Final Charlotte Springer MD US * (ABNORMAL) XR DXA BONE DENSITY 2 SITES AXIAL (07/02/2019 11:48 AM [facility]ORTHAND REPORTER) Anatomical Region Laterality Modality Spine, HIPS, HIPL, HIPR Other Narrative 07/06/2019 11:01 AM SHORTHAND REPORTER Please see scanned document for results of this study. Rakel Connor DO DEXA from Last 3 Months or Most Recently Relevant to Health Maintenance Advance Directives Documents on File Type Date Recorded Patient Shaft Tender Expl anation Healthcare Directive 07/19/2016 2:58 [...] 8:45 AM 09/01/2016 4:04 PM Care Teams Physiatrist Relationship Specialty Start Date End Date Maritza Rendon DO [address] [place] [address] PCP - General Family Practice 12/30/22 Kd Restrepo MD Endocrinology 11/24/11 Cody Veliz MD Rheumatology 11/24/11
== END 2024-02-10 09:53 | disposition home or self-care (01) ==
LOC: WOUND 09:52
PROVIDERS: PCP Physician Assistant Medical; Visit Provider Nurse Practitioner Family
DX: I87.2 Venous insufficiency (chronic) (peripheral) (principal); I73.9 Peripheral vascular disease, unspecified; L97.322 Non-pressure chronic ulcer of left ankle with fat layer exposed; R73.03 Prediabetes
CPT/HCPCS: 97597

== ENCOUNTER 2024-02-24 09:59 | Outpatient (CLI) | payer OTHER, SELFPAY ==
--- OUTSIDE RECORDS SUMMARY | 2024-02-24 10:02 | XMS_ITS | Clinical Summary ---
Author Organization [facility] Address [place], [place] [address] Care Team Providers Care Merchandising Stock Associate Name Role Phone Kd Restrepo MD Unavailable [phone] Cody Veliz MD Unavailable [phone] Maritza Rendon DO Primary Care Provide r [...] SOB (shortness of breath) 01/25/2020 Fatigue 01/25/2020 USP current use of systemic steroids 09/27 Prediabetes [...] Date Anticoagulation monitoring, INR range 2-3 [Z79.01]; [place] [facility] 2.5-3.0 12/06/2016 1 Pessary maintenance 02/25/2016 [...] Encounters Date Type Department Care Team Description 02/20/2024 Telephone [facility] [address] [place] [address] Charlotte Springer MD Results 02/17/2024 10:56 AM CDT - 02/17/2024 11:59 PM CDT Hospital Encounter [facility] [address] [place] [address] Charlotte Springer MD Venous stasis ulcer of ankle, left (HC) 02/16/2024 8:00 AM CDT Procedure Only [facility] [address] [place] [address] Charlotte Springer MD 02/16/2024 6:57 AM CDT - 02/16/2024 11:59 PM CDT Hospital Encounter [facility] [address] [place] [address] Charlotte Springer MD Venous stasis ulcer of ankle, left (HC) 02/16/2024 Travel 02/10/2024 Telephone [facility] [address] [place] [phone] Charlotte Springer MD Pre Procedure Instructions 01/19/2024 Orders Only [facility] Scanner 1 scan: (1-Ord) [facility], CLINICAL LABORATORY REPORT, 01/19/2024 01/19/2024 Orders Only [facility] Scanner 1 scan: (1-Ord) [facility], CLINIC LABORATORY REPORT, 01/19/2024 01/18/2024 Orders Only [facility] Scanner 1 scan: (1-Ord) [facility], CLINICAL LABORATORY REPORT, 01/18/2024 01/18/2024 Orders Only [facility] Scanner 1 scan: (1-Ord) [facility], CLINICAL LABORATORY REPORT, 01/18/2024 01/18/2024 Orders Only [facility] Scanner 1 scan: (1-Ord) [facility], CLINICAL LABORATORY REPORT, 01/18/2024 01/18/2024 Orders Only [facility] Scanner 1 scan: (1-Ord) [facility], CT ABDOMEN PELVIS W CON, 01/18/2024 01/18/2024 Orders Only [facility] Scanner 1 scan: (1-Ord) [facility], US ABDOMEN LIMITED, 01/18/2024 01/06/2024 Telephone [facility] [address] [place] [phone] Charlotte Springer MD Questions (Concern about wound) 01/03/2024 Orders Only [facility] Scanner 1 scan: (1-Ord) [facility], CLINICAL LABORATORY REPORT, 01/03/2024 12/30/2023 Transcribe Orders [facility] [address] [place] [phone] Charlotte Springer MD 12/13/2023 Orders Only [facility] Scanner 1 scan: (1-Ord) [facility], CLINICAL LABORATORY REPORT, 12/13/2023 12/12/2023 Lab Requisition [facility] [phone] Unknown, Doctor 12/09/2023 Telephone [facility] [address] [place] [address] Charlotte Springer MD Care Coordination 12/05/2023 11:00 AM CDT Office Visit [facility] [address] [place] [phone] Charlotte Springer MD Follow Up (LLE wound follow up ) 12/05/2023 8:56 AM CDT - 12/05/2023 11:59 PM CDT Hospital Encounter [facility] [address] [place] [address] Charlotte Springer MD Venous insufficiency; Venous stasis ulcer of ankle, left (HC) 12/05/2023 Travel from Last 3 Months Immunizations Name Administration Dates Next Due AMB INFLUENZA IIV3 (AGE 65+ YRS) PF (Flu Clinic Only) 03/23/2017 AMB Influenza, IIV3 (Age >=3 years) Preserve Free (Flu Clinic Only) 04/08/2009 AMB Influenza, IIV3 (Age >=3 years)(Flu Clinic Only) 04/06/2013,04/16/2011,04/24/2008 COVID-19 vaccine (HidInImage NTech 30mcg/0.3mL) PF, MDV 09/02/2020,08/12/2020 Influenza A (H1N1), [...] Description 02/28/2024 10:00 AM CDT Office Visit [facility] [address] [place], [place] [phone] [place] [address] [place] [address] 03/01/2024 3:30 PM CDT Office Visit [facility] [address] [place] [address] Olvin Haji MD [address] [place] [address] Health Maintenance Due Date Last Done Comments [...] 01/13/2016, 12/18/2010 Medical Devices Implanted Type Area Linen Supervisor Device Identifier Shelf Expiration Date Model / Serial / Lot Lead Kit 4.32mm Spacing 28cm Length Interstim - [id number] Implanted:Qty: 1 on 04/01/2020 by Charlotte Smith MD at [facility] N/A: Sacrum [employer] Pain Therapy 09/30/2021 [id number] / / [id number] Stimulator 7.7mm 14cc Interstim Ii - [id number] Implanted:Qty: 1 on 04/01/2020 by Charlotte Smith MD at [facility] N/A: Sacrum [employer] Pain Therapy 03/31/2021 [id number] / [id number] / Description:PIN [id number] Procedures Procedure Name Priority Date/Time Associated Diagnosis Comments US VENOUS LOWER EXTREMITY LEFT Routine 02/17/2024 11:46 AM CDT Venous stasis ulcer of ankle, left (HC) US CLOSURE/VEIN MAPPING LT NBA 02/16/2024 9:11 AM CDT Venous stasis ulcer of ankle, left (HC) SCAN-LABORATORY REPORT 4 12:00 AM CDT SCAN-LABORATORY [...] Venous stasis ulcer of ankle, left (HC) XR DXA BONE DENSITY 2 SITES AXIAL Routine 07/02/2019 11:48 AM CONTACT CENTER ANALYST Osteopenia of multiple sites from Last 3 Months or Most Recently Relevant to Health Maintenance Results * US VENOUS LOWER EXTREMITY LEFT (02/17/2024 11:46 AM CDT) Anatomical Region Laterality Modality LEGS, LEG L, Abdomen Ultrasound 02/17/2024 11:1 7 AM CDT Narrative 02/17/2024 5:40 PM CDT VASCULAR ULTRASOUND REPORT RODERICK HEATON Accession#: ?? [id number] : ?1940 ??Study Date: ?? 02/17/2024 11:17:13 AM Age: ?83 years ?? Tech: ? AMS Gender: F ?Referring MD: CHARLOTTE SPRINGER Site: [facility] Vascular [facility] Study performed: ?Duplex US DVT study, (left). Indication for study: follow-up venous ablation Study Quality: ?Good TECHNIQUE: Lower/upper extremity veins were examined with duplex ultrasound, color-flow and spectral Doppler per exam protocol. Vein compressibility by transducer pressure was used to evaluate presence/absence of DVT/SVT. Venous flow and competence was evaluated by flow augmentation maneuvers per exam protocol. Insufficiency studies were performed with the patient in upright position, with vein diameters measured in mm, and reflux. IMPRESSION: 1. The left lower extremity shows no evidence of thrombosis in the deep veins. 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 FINDINGS: The LT GSV is occluded from the insertion site at the proximal calf to 1.0 cm distal to the junction post venous seal procedure. The SEV is patent. Left Lower Extremity: The left lower extremity shows no evidence of thrombosis in the deep veins. MEASUREMENTS: + +--------+-----+--------+----+ ? RIGHT ?? RIGHT ??LEFT ?? LEFT ? Compress DVT Compress DVT ? SVT ? SVT + +--------+-----+--------+----+ CFV ?yes ?? None ??yes ?? None + +--------+-----+--------+----+ PFV ?yes ?? None + +--------+-----+--------+----+ SAPH/FEM JUNCT ?yes ?? None + +--------+-----+--------+----+ FV ?yes ?? None + +--------+-----+--------+----+ POPV ?yes ?? None + +--------+-----+--------+----+ PTV ?yes ?? None + +--------+-----+--------+----+ PERONEAL ?yes ?? None + +--------+-----+--------+----+ GSV ? no ? + +--------+-----+--------+----+ = Can't evaluate Dejan Tolentino MD. Electronically signed on 02/17/2024 5:40:21 PM This study was performed and interpreted by a service accredited by the Intersocietal Accreditation Commission (IAC/Vascular), www.intersocietal.org/vascular Report generated by [employer]. ??Final ?? Procedure Note Dejan Tolentino MD - 02/17/2024 VASCULAR ULTRASOUND REPORT RODERICK HEATON : 1940 Study Date: 02/17/2024 11:17:13 AM Age: 83 years Tech: AMS Gender: F Referring MD: CHARLOTTE SPRINGER Site: [facility] Study performed: Duplex US DVT study, (left). Indication for study: follow-up venous ablation Study Quality: Good TECHNIQUE: Lower/upper extremity veins were examined with duplex ultrasound,color-flow and spectral Doppler per exam protocol. Vein compressibility bytransducer pressure was used to evaluate presence/absence of DVT/SVT.Venous flow and competence was evaluated by flow augmentation maneuversper exam protocol. Insufficiency studies were performed with the patientin upright position, with vein diameters measured in mm, and reflux. IMPRESSION: 1. The left lower extremity shows no evidence of thrombosis in the deepveins. COMPARISON: Compared to prior study 12/05/2023, Occluded GSV s/p venous vmlyapkap01/15/2024. FINDINGS: The LT GSV is occluded from the insertion site at the proximal calf to 1.0cm distal to the junction post venous seal procedure. The SEV is patent. Left Lower Extremity: The left lower extremity shows no evidence of thrombosis in the deepveins. MEASUREMENTS: + +--------+-----+--------+----+ RIGHT RIGHT LEFT LEFT Compress DVT Compress DVT SVT SVT + +--------+-----+--------+----+ CFV yes None yes None + +--------+-----+--------+----+ PFV yes None + +--------+-----+--------+----+ SAPH/FEM JUNCT yes None + +--------+-----+--------+----+ FV yes None + +--------+-----+--------+----+ POPV yes None + +--------+-----+--------+----+ PTV yes None + +--------+-----+--------+----+ PERONEAL yes None + +--------+-----+--------+----+ GSV no + +--------+-----+--------+----+ = Can't evaluate Dejan Tolentino MD. Electronically signed on 02/17/2024 5:40:21 PM This study was performed and interpreted by a service accredited by theIntersocietal Accreditation Commission (IAC/Vascular),www.intersocietal.org/vascular Report generated by [employer]. Final Charlotte Springer MD US * US CLOSURE/VEIN MAPPING LT (02/16/2024 9:11 AM CDT) Narrative Silent, Sched - 02/16/2024 9:11 AM CDT The result for this exam is either scanned and attached to this order or are included in the ordering provider's NOTES from the patient's Office Visit or Surgical procedure from this date. Charlotte Springer MD US * SCAN-LABORATORY REPORT (01/19/2024 12:00 AM CDT) Only the most recent of7 resultswithin the time period is included. Scanner OTHER * SCAN-ULTRASOUND REPORT (01/18/2024 12:00 AM CDT) Anatomical Region Laterality Modality Other Scanner OTHER * SCAN-CT INTERPRETATION (01/18/2024 12:00 AM CDT) Anatomical Region Laterality Modality Other Scanner OTHER * (ABNORMAL) REFERRAL ID/SUSC,NONURINE (12/08/2023 11:47 AM CDT) CULTURE RESULT(A) 12/17/2023 2:44 PM CDT [facility] CULTURE 1+ Acinetobacter species 12/17/2023 2:44 PM CDT [facility] Other (Left Leg) Client Collect / Unknown 12/08/2023 11:47 AM CDT 12/12/2023 10:11 PM CDT Narrative Organism Antibiotic Method Susceptibility Acinetobacter species TRIMETHOPRIM/SULF S Acinetobacter species GENTAMICIN S Acinetobacter species CEFTAZIDIME R Acinetobacter species LEVOFLOXACIN S Acinetobacter species CIPROFLOXACIN I Acinetobacter species PIPERACILLIN/TAZO I Acinetobacter species AMPICILLIN/SULBACTAM S Acinetobacter species TOBRAMYCIN S Acinetobacter species MEROPENEM S Doctor Unknown MICROBIOLOGY [facility] [address] [place] [id number], * US VENOUS INSUFFICIENCY LOWER EXTREMITY BILATERAL [...] US VENOUS INSUFFICIENCY LOWER EXTREMITY BILATERAL LOCATION: [facility] DATE: 12/05/2023 [...] when greater than 600 ms flow reversal. Content Analyst vein reflux reported as greater than 350 [...] US VENOUS INSUFFICIENCY LOWER EXTREMITY BILATERAL LOCATION: [facility] DATE: 12/05/2023 [...] reported when greater than 600ms flow reversal. Content Analyst vein reflux reported as greater than 350 [...] leftlower extremity wound. Charlotte Springer MD * (ABNORMAL) XR DXA BONE DENSITY 2 SITES AXIAL (07/02/2019 11:48 AM CONTACT CENTER ANALYST) Anatomical Region Laterality Modality Spine, HIPS, HIPL, HIPR Other Narrative 07/06/2019 11:01 AM CONTACT CENTER ANALYST Please see scanned document for results of this study. Rakel Connor DO DEXA from Last 3 Months or Most Recently Relevant to Health Maintenance Advance Directives Documents on File Type Date Recorded Patient People Manager Expl anation Healthcare Directive 07/19/2016 2:58 PM RAGHAV HEATNO * Full Code (Latest Code Status on [...] 8:45 AM 09/01/2016 4:04 PM Care Teams Merchandising Stock Associate Relationship Specialty Start Date End Date Maritza Rendon DO [address] [place] [address] PCP - General Family Practice 12/30/22 Kd Restrepo MD Endocrinology 11/24/11 Cody Veliz MD Rheumatology 11/24/11
--- OUTSIDE RECORDS SUMMARY | 2024-02-24 10:02 | XMS_ITS | Continuity of Care Document ---
Author Organization [facility] Address [address] [place] [address] Phone Care Team Providers Care Multi Share Program Coordinator Name Role Phone Helder Medina MD Unavailable [...] thigh or abdomen 120 MG - Active fluocinonide 0.05 % topical [...] route every day 1 Capsule - Active Procedures Procedure Date X-Ray Exam [...] Antibodies Dna Antibody, Single Strand Dna Antibody, [place] Nuclear Antigen Antibodies Rheumatoid Factor, IGM Rheumatoid Factor, IGG, IGA Advance Directives Directive Yes / No Effective Date File Name No Information Encounters Encounter Description Practice Location Reason(s) For Visit Diagnoses Date Provider Providers Copied on Encounter [facility], [address], [place], [address], [place] tel:[phone] [facility], No Information Apr-- [address] Adam Pendleton. [address], [place], [address], [place]. tel:[phone] Referring Provider: Helder Jain, [address], [place], [address]. tel:[phone] Office/Outpa tient Visit, Est [facility], [address], [place], [address], [place] tel:[phone] [facility], Sjogren syndrome w/ inflammatory arthritisPain in left foot Apr- 0 4 Lebedoff Helder. [address], [place], [address], [place]. tel:[phone] Referring Provider: Helder Jain, [address], [place], [address]. tel:[phone] Office/Outpa tient Visit, Est [facility], [address], [place], [address], [place] tel:[phone] [facility], Sjogren syndrome w/ inflammatory arthritisPrim mauri osteoarthriti s, right hand 3 Lebedoff Helder. [address], [place], [address], [place]. tel:[phone] Referring Provider: Helder Jain, [address], [place], [address]. tel:[phone] Office/Outpa tient Visit, Est [facility], [address], [place], [address], [place] tel:[phone] [facility], Sicca syndrome, unspecifiedWe akness November- 0 3 Lebedoff Helder. [address], [place], [address], [place]. tel:[phone] Referring Provider: Helder Jain, [address], [place], [address]. tel:[phone] Office/Outpa tient Visit, Est [facility], [address], [place], [address], [place] tel:[phone] [facility], Sicca syndrome, unspecifiedPa in in left shoulder Apr- 2 Adam Pendleton. [address], [place], [address], [place]. tel:[phone] Referring Provider: Helder Jain, [address], [place], [address]. tel:[phone] Office/Outpa tient Visit, Est [facility], [address], [place], [address], [place] tel:[phone] [facility], Sicca syndrome, unspecifiedDy spnea Oct- 2 Adam Pendleton. [address], [place], [address], [place]. tel:[phone] Referring Provider: Helder Jain, [address], [place], [address]. tel:[phone] Office/Outpa tient Visit, Est [facility], [address], [place], [address], [place] tel:[phone] [facility], Sicca syndrome, unspecifiedOt her mcc (current) drug therapyPrimar y OA of right handDyspnea Apr- 1 Adam Pendleton. [address], [place], [address], [place]. tel:[phone] Referring Provider: Helder Jain, [address], [place], [address]. tel:[phone] Office/Outpa tient Visit, New [facility], [address], [place], [address], [place] tel:[phone] [facility], Sicca syndrome, unspecifiedPa in in rt ankleOther mcc (current) drug therapy 1 Adam Pendleton. [address], [place], [address], [place]. tel:[phone] Referring Provider: Helder Medina G, [address], [place], [address]. tel:[phone] [facility], [address], [place], [address], [place] tel:[phone] [facility] No Information 1 Mo Sullivan. [facility] [address] [place] [address] [address], [place], [address], [place]. tel:[phone] Family History Family Member Type Diagnosis Age At Onset No Information Immunizations Vaccine Date Status Comments COVID-19 Moderna administered Source: Ot er Provider COVID-19 Pfizer administered Note: 1 ; Source: Other Provider Payers Payer name Insurance type Covered libertarian ID Authoriza tion(s) [employer] Medicare Adv [id number] MB [id number] Social History Type Description Quantity Date Captured [...] Order Fo ot X-ray; Complete (3+ views) ([id number]), Sent on: Sent History Of Present Illness [...]
--- OUTSIDE RECORDS SUMMARY | 2024-02-24 10:02 | XMS_ITS | Continuity of Care Document ---
Author Organization [facility] Address [address] [place] [address] Phone Care Team Providers Care Rent And Housing Investigator Name Role Phone Usha Dickinson Unavailable Unavailable [...] on Encounter [facility], [address], [place], [place], [id number], [place] tel:[phone] No Information [facility]. [facility], [address], [place], [place], [id number] , [place]. [phone] Office/Outpat ient Visit,Est, Mod [facility], [address], [place], [place], [id number], [place] tel:[phone] [facility] Other forms of scoliosis, thoracolumbar regionL2 wedge compression fracture, initial encounter for closed fractureSpondy lolisthesis, lumbar region 0 [facility]. [facility], [address], [place], [place], [id number] , [place]. tel:[phone] Referring Provider: Rakel Arvizu, [facility] [address] [place], [address]. tel:[phone] Office/Outpat ient Visit,Est, Mod [facility], [address], [facility] [place], [id number], [place] tel:[phone] [facility] L2 wedge compression fracture, initial encounter for closed fractureOther forms of scoliosis, thoracolumbar regionSpondylo listhesis, lumbar region [address] [facility], [address], [place], [place], [id number] , . tel:[phone] Referring Provider: Rakel Arvizu [employer] [address] [place], [address]. tel:[phone] Office/Outpat ient Visit,[facility], [facility], [address], [facility] [place], [id number], [place] tel:[phone] [facility] [place] L2 wedge compression fracture, initial encounter for closed fractureOther forms of scoliosis, thoracolumbar regionSpondylo listhesis, lumbar region 0 Kwame Kerr. [facility], [address], [place], [place], [id number] , [place]. tel:[phone] Referring Provider: Rakel Arvizu [employer] [address] [place], [address]. tel:[phone] Family History Family Member Type Diagnosis Age At Onset No Information Payers Payer name Insurance type Covered republican ID Authoralethaa tishannon(s) Medicare MB [id number] [facility] [id number] [facility] [id number] Social History Type Description Quantity Date Captured [...]
== END 2024-02-24 10:00 | disposition home or self-care (01) ==
LOC: WOUND 09:59
PROVIDERS: PCP Physician Assistant Medical; Visit Provider Nurse Practitioner Family
DX: I87.2 Venous insufficiency (chronic) (peripheral) (principal); I73.9 Peripheral vascular disease, unspecified; L97.322 Non-pressure chronic ulcer of left ankle with fat layer exposed; Z79.52 Long term (current) use of systemic steroids
CPT/HCPCS: 15271; Q4101

== ENCOUNTER 2024-03-02 09:53 | Outpatient (CLI) | payer OTHER, SELFPAY ==
--- OUTSIDE RECORDS SUMMARY | 2024-03-02 09:55 | XMS_ITS | Data Portability ---
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 Plan of Treatment Reminders Order Date Submit Date Provider Last Modified By Organization Details Last Modified Time Details Appointments ESTABLISH ED 20 2023 09:00A M Not available Not available Not available ESTABLISH ED 45 2023 09:30A M Not available Not available Not available Lab None recorded. Referral None recorded. Procedures None recorded. Surgeries None recorded. Imaging None recorded. Medication Orders None recorded. Patient TargetsNo targets recorded. Patient Instructions Encounter Date Encounter Id Patient Instructions Last Modified By Organization Details Last Modified Time 09/14/2021 [id number] Test each progra m for at least 2 weeks, adjusting amplitude as needed. May remain on a program as long as it is effective. Return as needed for reprogramming. [email or web address] Not available 09/14/2021 10:07:26 Patient states t hat Gemtessa samples were very effective, but it is not covered by her insurance. She was also given a rx for Myrbetriq. [email or web address] Not available 09/14/2021 10:08:49 11/12/2021 [id number] Over Active Blad betty (OAB): -Managed with interstiadam. Content with treatment. -Reprogramming as needed with Brea. -The OAB Pathway was reviewed, including fluid restriction, bladder irritants, and pelvic floor physical therapy, and OAB medications. Avoid anticholenergics with sjogrens. -Gemtesa too expensive. Discontinued myrbetriq 50 mg due to side effects. -Follow up in 6 months with Brea, sooner if issues Time on phone: 8 minutes [email or web address] Not available 11/12/2021 11:46:55 04/09/2022 [id number] Test each progra m for at least 2 weeks, adjusting amplitude as needed. May remain on a program as long as it is effective. Return as needed for reprogramming. [email or web address] Not available 04/09/2022 12:34:22 Patient states t hat Gemtesa samples were effective, but the rx was too expensive, so she stopped taking. She would like to try the Gemtesa again, but wonders of it is ok t take every other day, to spread the prescription out, and decrease the expense. I will ask Afsaneh Bui PAC. [email or web address] Not available 04/09/2022 12:37:43 12/06/2022 [id number] Test each progra m for at least 2 weeks, adjusting amplitude as needed. May remain on a program as long as it is effective. Return as needed for reprogramming. Not available 12/06/2022 10:55:41 04/28/2023 [id number] Over Active Blad betty (OAB): -Managed with interstim. Happy with treatment. -Saw Brea today. Reprogramming as needed. -The OAB Pathway [...] Name Description Value Unit Range Abnormal Flag Note LastModifiedBy Organization Detail LastModifiedTime 09/15/19 22 09/14/2021 UA DIP CS ADVAN TUS color -advantus YELLOW yellow Not Available [facility] [address], [place], [address], 09/14/2021 10:41:46 09/15/19 22 09/14/2021 UA DIP CS ADVAN TUS appearance -advantus CLEAR clear Not Available [facility] [address], [place], [address], 09/14/2021 10:41:46 09/15/19 22 09/14/2021 UA DIP CS ADVAN TUS glucose -advantus NEGATI VE mg/dL negati ve Not Available [facility] [address], [place], [address], 09/14/2021 10:41:46 09/15/19 22 09/14/2021 UA DIP CS ADVAN TUS bilirubin -advantus NEGATI VE negati ve Not Available [facility] [address], [place], [address], 09/14/2021 10:41:46 09/15/19 22 09/14/2021 UA DIP CS ADVAN TUS ketones -advantus NEGATI VE mg/dL negati ve Not Available [facility] [address], [place], [address], 09/14/2021 10:41:46 09/15/19 22 09/14/2021 UA DIP CS ADVAN TUS sp. gravity -advantus 1.010 1.010- 1.025 Not Available [facility] [address], [place], [address], 09/14/2021 10:41:46 09/15/19 22 09/14/2021 UA DIP CS ADVAN TUS pH -advantus 6.0 5.0-8. 0 Not Available [facility] [address], [place], [address], 09/14/2021 10:41:46 09/15/19 22 09/14/2021 UA DIP CS ADVAN TUS protein -advantus NEGATI VE mg/dL negati ve Not Available [facility] [address], [place], [address], 09/14/2021 10:41:46 09/15/19 22 09/14/2021 UA DIP CS ADVAN TUS urobilinogen -advantus 0.2 normal Not Available [facility] [address], [place], [address], 09/14/2021 10:41:46 09/15/19 22 09/14/2021 UA DIP CS ADVAN TUS nitrites -advantus NEGATI VE negati ve Not Available [facility] [address] [place] [address] [address], [place], [address], 09/14/2021 10:41:46 09/15/19 22 09/14/2021 UA DIP CS ADVAN TUS blood -advantus SMALL negati ve abnormal Not Available [facility] [address] [place] [address] [address], [place], [address], 09/14/2021 10:41:46 09/15/19 22 09/14/2021 UA DIP CS ADVAN TUS leukocytes -advantus NEGATI VE negati ve Not Available [facility] [address] [place] [address] [address], [place], [address], 09/14/2021 10:41:46 09/15/19 22 09/14/2021 UA DIP CS ADVAN TUS performed by Bibi Ruiz Not Available [email or web address] [address] [place] [address] [address], [place], [address], 09/14/2021 10:41:46 09/15/19 22 09/14/2021 UA DIP CS ADVAN TUS total urine volume (mL) 20cc /mL ----- ----- ----- ----- ----- ----- ----- ----- ----- ----- ----- ----- ----- ----- ---- *Jannette braun note the follo wing minim um quant ities for addit ional urine testi ng: - Atypi cals: 3 mL - Cytol ogy: 20 mL - GC/CH : 2 mL - FISH: 30 mL - Atypi cals w/ GC/CH : 5 mL - Cytol ogy PLUS FISH: 50 mL - Urine Cultu re: 3 mL ----- ----- ----- ----- ----- ----- ----- ----- ----- ----- ----- ----- ----- ----- ---- Not Available [facility] [address] [place] [address], [place], [address], 09/14/2021 10:41:46 09/15/19 22 09/14/2021 UA MICRO SCOPI C U-WBC 0 - 2 [hpf] 0 - 2 Not Available [facility] [address] [place] [address], [place], [address], 09/14/2021 10:41:47 09/15/19 22 09/14/2021 UA MICRO SCOPI C U-RBC 0 - 2 [hpf] 0 - 2 Not Available [facility] [address] [place] [address], [place], [address], 09/14/2021 10:41:47 09/15/19 22 09/14/2021 UA MICRO SCOPI C bacteria Small [hpf] negati ve abnormal Not Available [facility] [address] [place] [address], [place], [address], 09/14/2021 10:41:47 09/15/19 22 09/14/2021 UA MICRO SCOPI C squamous epi Small /lpf negati ve,sma ll Not Available [facility] [address] [place] [address], [place], [address], 09/14/2021 10:41:47 Result Notes None recorded. Problems Name Problem SNOMED Code Status Onset Date Resolution Date Notes Provider Name and Address Organization Details Recorded Time Chronic cystitis 00991397 Active 2018 N30.20 : Chronic cystitis Not Available [facility] 0 23:40:26 Overactiv e urinary bladder 967842879 Active 2018 N32.81 : Bladder muscle dysfunctio n - overactive Not Available 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 Procedures Surgical History Date Name Laterality Status Provider Name and Address Organization Details Recorded Time 04/28/20 23 Sacral neuromodulation w/o reprogramming completed ELMA Burciaga [address], [place], [address], [facility] 04/28/2023 11:57:28 04/28/20 23 Bladder Scan completed Radhika felix [facility] 04/28/2023 11:36:21 12/07/19 23 Sacral neuromodulation w/o reprogramming completed Brea felix [facility] 12/06/2022 11:08:45 04/09/20 22 Sacral Stimulator Reprogramming completed Brea felix [facility] 04/09/2022 12:49:34 09/15/19 22 Bladder Scan completed Merry felix [facility] 09/14/2021 10:25:15 09/15/19 22 Sacral neuromodulation w/o reprogramming completed Brea felix [facility] 09/14/2021 10:15:12 08/03/19 22 Past Data Reviewed completed Charlotte Smith MD [address], [place], [address], [facility] 08/03/2021 08:29:52 08/03/19 22 Bladder Scan completed Usha Corado null, [facility] 08/03/2021 11:50:03 11/27/19 21 Sacral Stimulator Reprogramming completed Brea Danitza null, [facility] 11/27/2020 12:44:01 09/17/19 20 Implant neuroelectrodes completed Not Available [facility] 12/13/2019 18:11:39 11/29/19 19 Insert bladder catheter completed Not Available [facility] 12/13/2019 18:11:39 11/14/19 15 Colonoscopy completed Lucinda Nuñez null, [facility] 11/11/2020 11:57:08 11/29/19 09 Total hip arthroplasty completed Not Available [facility] 12/13/2019 18:11:39 11/29/19 00 Unlisted procedure breast completed Not Available [facility] 12/13/2019 18:11:39 Appendectomy add-on completed Not Available [facility] 12/13/2019 18:11:39 Imaging Results None recorded. Procedure Notes None recorded. Medical Equipment None Reported. Allergies Allergen ID Allergen Name Allergen Category Reaction Reaction Severity Criticality Documentation Date Start Date Code Code System Note Provider Name and Address Organization Details Recorded Time 648085 Nitroimid azole (substanc e) medicatio n Not available Not available Not available 12/12/2019 83443 5001 SNOMED Not Available [facility] 0 23:50:45 893467 sulindac medicatio n Not available Not available Not available 12/12/2019 21878 RxNorm Not Available [facility] 0 23:50:45 466658 Medicinal product containin g penicilli n and acting as antibacte rial agent (product) medicatio n itching Not available Not available 12/12/2019 89246 05 SNOMED Not Available [facility] 0 23:50:45 240187 atorvasta tin medicatio n Not available Not available Not available 12/12/2019 99737 RxNorm Not Available [facility] 0 23:50:45 139890 tetracycl ine medicatio n Not available Not available Not available 12/12/2019 22642 RxNorm Not Available [facility] 0 23:50:45 105947 alendrona te sodium medicatio n Not available Not available Not available 12/12/2019 50434 2 RxNorm Not Available [facility] 0 23:50:45 945335 amoxicill in medicatio n Not available Not available Not available 12/12/2019 723 RxNorm Not Available [facility] 0 23:50:45 154581 oxybutyni n chloride Not available dizziness Not available Not available 12/12/2019 51090 RxNorm fatig ue Not Available [facility] 0 23:50:45 964936 aspirin medicatio n Not available Not available Not available 12/12/2019 1191 RxNorm Not Available [facility] 0 23:50:46 786471 losartan Not available Not available Not available Not available 12/12/2019 24404 RxNorm Not Available [facility] 0 23:50:46 892561 estrogens , conjugate d ([facility]) medicatio n Not available Not available Not available 12/12/2019 4099 RxNorm Not Available [facility] 0 23:50:46 007868 ciproflox acin medicatio n Not available Not available Not available 12/12/2019 2551 RxNorm Not Available [facility] 0 23:50:46 767027 hydrochlo rothiazid e medicatio n Not available Not available Not available 12/12/2019 5487 RxNorm Not Available [facility] 0 23:50:46 513437 metoprolo l Not available Not available Not available Not available 12/12/2019 6918 RxNorm Not Available [facility] 0 23:50:46 895967 naproxen medicatio n Not available Not available Not available 12/12/2019 7258 RxNorm Not Available [facility] 0 23:50:46 505222 clindamyc in Not available Not available Not available Not available 12/12/2019 2582 RxNorm Not Available [facility] 0 23:50:46 002132 Substance with sulfonami de structure and antibacte rial mechanism of action (substanc e) medicatio n Not available Not available Not available 11/11/2020 56344 8003 SNOMED Lucinda Nuñez [facility] 1 11:56:30 194082 Myrbetriq medicatio n swelling Not available Not available 10/05/2021 79434 92 RxNorm RODERICK THOMSON [facility] 2 13:18:14 474740 Sambucus Elderber[employer] y Immune medicatio n Not available Not available Not available 04/09/2022 Brea Bosch null, [facility] 2 12:14:11 Medications Name Sig Start [...] t Available buspirone 5 mg tablet TAKE ONE TABLET BY MOUTH THREE TIMES DAILY* active Not Available Not Available No t Available pilocarpine 5 mg tablet TAKE ONE TABLET BY MOUTH THREE TIMES DAILY* active Not Available Not Available No t Available prednisone 10 mg tablet TAKE ONE TABLET BY MOUTH EVERY OTHER DAY* active Not Available Not Available No t [...] fosfomycin tromethamin e 3 gram oral packet 1 packet orally every 3 days As Needed for bladder infection s for 2 doses* active Not Available Not Available No t Available fluconazole 150 mg tablet TAKE 1 TABLET ORALLY AND REPEAT IN 3 DAYS IF SYPMTOMS ARE STILL PRESENT 04/28 completed Not Available Not Available Not Available valacyclovi r 1 gram tablet TAKE ONE TABLET BY MOUTH THREE TIMES DAILY 08/03 completed Not Available Not Available Not Available senna 8.6 mg tablet TAKE 1 TABLET BY MOUTH TWICE DAILY NEEDED FOR CONSTIPAT ION* active Not Available Not Available No t Available diltiazem CD 240 mg capsule,ext ended release 24 hr TAKE 1 CAPSULE BY MOUTH ONE TIME DAILY* active Not Available Not Available No t Available famotidine 40 mg tablet TAKE 1 TABLET BY MOUTH ONE TIME DAILY active Not Available Not Available No t Available warfarin 2.5 mg tablet TAKE 1 TABLET (2.5MG) BY MOUTH ONE TIME DAILY* active Not Available Not Available No t Available diphenoxyla te-atropine 2.5 mg-0.025 mg tablet TAKE 1 TABLET BY MOUTH ONE TIME DAILY* active Not Available Not Available No t Available valacyclovi r 500 mg tablet 500 MG ORALLY TWICE A DAY FOR 3 DAYS *SEE CHANGE IN DOSE* TO 500MG TWICE DAILY FOR 3 DAYS. active Not Available Not Available No t Available triamcinolo ne acetonide 0.1 % topical cream active Not Available Not Available Not Available diltiazem 120 mg tablet Take 1 [...] ayed release TAKE 1 CAPSULE BY MOUTH ONE TIME DAILY* active Not Available Not Available No t Available mupirocin 2 % topical ointment APPLY TOPICALLY 3 TIMES A DAY active Not Available Not Available No t Available furosemide 20 mg tablet TAKE ONE TABLET BY MOUTH EVERY MORNING* active Not Available Not Available No t Available Synthroid 112 mcg tablet TAKE 1 TABLET BY MOUTH ONE TIME DAILY* active Not Available Not Available No t [...] completed Not Available Not Available Not Available gentamicin 0.1 % topical ointment APPLY A SMALL AMOUNT TO WOUND ON LEFT LOWER LEG ONCE DAILY* active Not Available Not Available No t Available oxycodone 5 mg tablet TAKE 1/2-1 [...] Available Prolia 60 mg/mL subcutaneou s syringe Inject contents of 1 syringe (60 mg) under the skin every 6 months* active Not Available Not Available No t [...] 1 TABLET BY MOUTH ONE TIME DAILY* active Not Available Not Available No t Available BinaxNOW COVID-19 Ag Self Test kit REFER TO MANUFACTU RER INSTRUCTI ONS INCLUED IN PACKAGING 04/28 completed Not Available Not Available Not Available Vitals Date Recorded Body height Body mass index (BMI) Body weight Provider Name and Address Organization Details Last Updated DateTime 04/09/2022 154.94 cm 27.8 kg/m2 60111.08 g Brea Bosch [facility] 04/09/2022 12:13:52 Date Recorded Body height Body mass index (BMI) Body weight Provider Name and Address Organization Details Last Updated DateTime 12/06/2022 154.94 cm 25.5 kg/m2 98335.97 g Brea Bosch [facility] 12/06/2022 10:41:56 Date Recorded Body height Body mass index (BMI) Body weight Provider Name and Address Organization Details Last Updated DateTime 04/28/2023 154.94 cm 25.5 kg/m2 36412.97 g Radhika Mathis [facility] 04/28/2023 11:25:35 Date Recorded Body height Body mass index (BMI) Body weight Provider Name and Address Organization Details Last Updated DateTime 09/14/2021 158.75 cm 26.5 kg/m2 41312.08 g Brea Bosch [facility] 09/14/2021 09:54:39 Date Recorded Body height Body mass index (BMI) Body weight Provider Name and Address Organization Details Last Updated DateTime 09/14/2021 158.75 cm 26.5 kg/m2 98495.08 g Merry Ocampo [facility] 09/14/2021 10:08:57 Date Recorded Body height Body mass index (BMI) Body weight Provider Name and Address Organization Details Last Updated DateTime 11/12/2021 154.94 cm 27.8 kg/m2 86964.08 g Merry Ocampo [facility] 11/12/2021 11:32:20 Social History Question Answer Notes LastModified by Organizat ion Details LastModified Time Tobacco Smoking Status Never Smoker Not Available [facility] 12/13/2019 02:00:45 What Is Your Level Of Alcohol Consumption? None Information not available 09/14/2021 What Is Your Level Of Caffeine Consumption? Heavy Information not available 09/14/2021 Are You Currently Employed? No Information not available 09/14/2021 Race [place] [email or web address] Information n ot available 12/13/2019 Ethnicity Not /Lat vane Information not available 09/14/2021 Preferred Language Chinese Information not available 09/14/2021 Recreational Drug Use No Information not available 09/14/2021 Could You Be ? No Information not available 09/14/2021 Marital Status [email or web address] Informati on not available 12/13/2019 What Was The Date Of Your Most Recent Tobacco Screening? 12/06/2022 [email or web address] Information not available 12/06/2022 What Is Your [...] recorded. Mental Status None recorded. Family History Nothing Reported Notes:Hypertension:Mother breast cancer:Grandmother Thyroid disease:Grandmother Diabetes:Son Thyroid [...] conjugate PCV 13 07/04/2017 completed STEPHEN Germain [facility] 04/28/2023 11:25:40 Past Encounters Encounter ID Performer Location Encounter Start Date Encounter Closed Date Diagnosis/Indication Diagnosis SNOMED-CT Code Diagnosis ICD10 Code [id number] Charlotte Smith MD [address] [address] 04/15/2020 10:02:52 04/25/2020 12:54:57 Overactive urinary bladder 247143827 N32.81 Urge incon tinence of urine 02141863 N39.41 [id number] Charlotte Smith MD [address] [address] 05/13/2020 10:14:48 05/13/2020 14:22:18 Overactive urinary bladder 131054057 N32.81 Urge incon tinence of urine 66190469 N39.41 History of urinary tract infection 0578430605 107 Z87.440 [id number] Charlotte Smith MD [address] [address] 11/11/2020 11:46:55 11/11/2020 13:40:18 Overactive urinary bladder 169714110 N32.81 Urge incon tinence of urine 00855990 N39.41 [id number] Brea Bosch [facility] [address] [address] [place] [address] 11/26/2020 10:15:12 12/02/2020 15:37:48 Overactive urinary bladder 688634294 N32.81 Nocturia 059750262 R35.1 [id number] Charlotte Smith MD [facility] [address] [place] [address] [place] [id number] 08/03/2021 11:31:50 08/03/2021 12:09:22 Overactive urinary bladder 897607392 N32.81 Urge incon tinence of urine 63041274 N39.41 Nocturia 938431959 R35.1 [id number] ELMA Burciaga [facility] [address] [place] [address] [place] [phone] 09/14/2021 10:06:36 09/14/2021 14:16:12 Overactive urinary bladder 187157546 N32.81 Urge incon tinence of urine 25408799 N39.41 Nocturia 485203046 R35.1 [id number] Brea Bosch [facility] [address] [place] [address] [place] [phone] 09/14/2021 09:30:06 09/14/2021 14:31:59 Overactive urinary bladder 979230439 N32.81 [id number] ELMA Burciaga [facility] [address] [place] [id number] 11/12/2021 11:29:59 11/12/2021 12:37:25 Overactive urinary bladder 287232385 N32.81 Urge incon tinence of urine 22190422 N39.41 Nocturia 990170453 R35.1 [id number] Brea Bosch [facility] [address] [place] [address] [place] [phone] 04/09/2022 11:43:46 04/09/2022 13:38:20 Overactive urinary bladder 826003124 N32.81 [id number] Brea Bosch [facility] [address] [place] [id number] 12/06/2022 10:28:13 12/06/2022 11:24:29 Overactive urinary bladder 972636773 N32.81 [id number] ELMA Burciaga [facility] [address] [place] [address] [place] [address] 04/28/2023 11:22:38 04/28/2023 12:04:03 Overactive urinary bladder 977883165 N32.81 Urge incon tinence of urine 95356043 N39.41 Nocturia 062950037 R35.1 Health Concerns Section Related Observation LastModified by Organization Detai ls LastModified Time None Recorded Concern Status LastModified by Organization Details LastModified Time None Recorded Advance Directives Directive None Recorded Payers Encounter Date Sequence Insurance Name Policy Number Policy Betancourt Covered Member ID Betancourt Member ID Guarantor Name 09/14/2021 1 MEDICARE B-[place]: [employer] [facility] P[place]y A Wood [id number] P[employer]y [employer] 09/14/2021 2 [facility] [id number] Patsy A [employer] [id number] Patsy A [employer] 11/12/2021 1 MEDICARE B-[place]: [employer] [facility] Patsy A Wood [id number] Patsy A Wood 11/12/2021 2 [place] [id number] Patsy A [employer] [id number] Patsy A Wood 04/09/2022 1 MEDICARE B-[place]: [employer] [facility] Patsy A Wood [id number] Patsy A Wood 04/09/2022 2 [place] [id number] Patsy A Wood [id number] P[employer]y [employer] 12/06/2022 1 MEDICARE B-[place]: [employer] [facility] Patsy A Wood [id number] Patsy A Wood 12/06/2022 2 [place] [id number] Patsy A [employer] [id number] [employer] 04/28/2023 1 MEDICARE B-[place]: [employer] Patsy A Wood [id number] Patsy A [employer] 04/28/2023 2 [place] [id number] Patsy A [employer] [id number] Patsy A [place] Notes Date Note Type Note Provider Name and Address Organization Details Recorded Time 09/14/2021 text/html HPI Notes: : Patient presents to follow up for overactive bladder (OAB). Managed with interstim. Patient saw Brea for reprogramming prior to appointment today. Improvement [...] has some UUI at times. seen with brea last about 1 year ago. stimulation of [...] use to be almost every hour. ELMA Burciaga [address] [place] [address],[address], [place], [address], [facility] [facility] 09/14/2021 10:49:41 11/12/2021 text/html HPI Notes: [...] interstim is working better since reprogramming with Brea after last visit on 09/14/21. The setting [...] with sjorgrens. This visit was conducted using [email or web address] phone technology. Prior to conducting our health visit, the patient and I discussed the risks, benefits and alternatives to phone visits. The patient elected to proceed with the phone visit. ELMA Burciaga [address] [place] [address],[address], [place], [address], [facility] 11/12/2021 11:50:24 12/06/2022 text/html [...] Pulse width changed Rate chaanged Resolution changed Brea felix [facility] 12/06/2022 11:08:58 04/28/2023 text/html HPI Notes: 04/28: Patient presents to follow up for overactive bladder (OAB). InterStim implant 04/01/[address] Smith. Last saw Brea 12/06/22. Feels comfortable changing programs. Has not changed since she saw Brea. Takes Gemtesa prn. Usually will take two [...] interstim is working better since reprogramming with Brea after last visit on 09/14/21. The setting [...] bladder (OAB). Managed with interstim. Patient saw Brea for reprogramming prior to appointment today. Improvement [...] has some UUI at times. seen with brea last about 1 year ago. stimulation of [...] use to be almost every hour. ELMA Burciaga [address] [place] [address],[address], [place], [address], [facility] 04/28/2023 11:58:40 OBGyn Episode No OBEpisode recorded.
--- OUTSIDE RECORDS SUMMARY | 2024-03-02 09:55 | XMS_ITS | Clinical Summary ---
Author Organization [facility] Address [place], [place] [address] Care Team Providers Care Coil Rewind Machine Operator Name Role Phone dK Restrepo MD Unavailable [phone] Jose Napier PA-C Primary Care Provider [phone] Charlotte Smith MD Unavailable [phone] Allergies Active Allergy Reactions Criticality Noted Date Comments Amoxicillin 01/19/2007 Aspirin Rash,Itching 01/20/2006 Atorvastatin Myalgia 12/27/2014 Blood-Group Specific Substance Other - Describe In Comment Field High 09/01/2016 Patient has Anti-D. Blood product orders may be delayed. Draw one red top and two purple top tubes for all Type and Screen/Type and Crossmatch orders. G-Xlbv-Nxociwrqq-Propol-Eld erb *Unknown 02/28/2024 Ciprofloxacin Rash 05/31/2012 Clindamycin Angioedema 06/28/2014 Sulindac Anaphylaxis 04/30/2014 Estrogens, Conjugated *Unknown 01/25/2024 Nitroimidazoles Rash 05/31/2012 Alendronate Sodium Arthralgia 11/30/2017 Furosemide *Unknown 01/25/2024 Hydrochlorothiazide Rash 05/04/2010 Cephalexin Hives 09/22/2020 Losartan Rash 11/08/2014 Nitrofurantoin Monohyd/M-Cryst Flushing,Headache 04/18/2020 Naproxen GI Bleeding 10/11/2006 Oxybutynin Dizziness 03/30/2021 Oxybutynin Chloride Agitation,Anxiety, Dizziness,Headache ,Nausea Only 01/19/2019 Penicillins Rash,Itching 01/20/2006 Conjugated Estrogens Rash 04/11/2015 Sulfa (Sulfonamide Antibiotics) Itching 01/20/2006 Tetracycline *Unknown 10/11/2006 Tolterodine Headache High 01/25/2024 Metoprolol Rash 10/10/2014 Cholecalciferol (Vitamin D3) Diarrhea [...] SOB (shortness of breath) 01/25/2020 Fatigue 01/25/2020 half-way current use of systemic steroids 09/27 Prediabetes [...] Date Anticoagulation monitoring, INR range 2-3 [Z79.01]; [place] Target 2.5-3.0 12/06/2016 1 Pessary maintenance 02/25/2016 09/28/19 20 Anticoagulation monitoring, goal range 2.0-2.6 09/19/2013 01/09/2018 Abnormal stress test 11/17/2010 011 Routine general medical exam ination at a health care facility 07/12/2009 09/28/2019 Overview: Normal CT angiogram 11/2010 Hip pain 05/06/2008 07/09/2009 Onychomycosis 05/06/2008 08/27/2008 HX OF VENOUS THROMBOSIS AND EMBOLISM 11/09/2006 12/06/2012 Bilateral pulmonary embolism 10/11/2006 11/18/2017 AFTERCARE, LONG-TERM USE, [place] DICATIONS NEC-PLAQUENIL 10/22/2003 Encounters Date Type Department Care Team Description 03/01/2024 3:30 PM CDT [place] [facility] [address] [place] [address] Olvin Haji MD Consult (CT, US & MRI - spot on pancreas) 03/01/2024 Travel 02/28/2024 10:00 AM CDT Office [place] [facility] [address] [place] [address] Tomas Page OD Eye Exam (CEE) 02/28/2024 Travel 02/20/2024 Telephone [place] [address] [address] [address] Charlotte Springer MD Results 02/17/2024 10:56 AM CDT - 02/17/2024 11:59 PM CDT Hospital Encounter [facility] [address] [place] [address] Charlotte Springer MD Venous stasis ulcer of ankle, left (HC) 02/16/2024 8:00 AM CDT Procedure Only [facility] [address] [place] [address] Charlotte Springer MD 02/16/2024 6:57 AM CDT - 02/16/2024 11:59 PM CDT Hospital Encounter [facility] [address] [place] [address] Charlotte Springer MD Venous stasis ulcer of ankle, left (HC) 02/16/2024 Travel 02/10/2024 Telephone [facility] [address] [place] [address] Charlotte Springer MD Pre Procedure Instructions 01/19/2024 Orders Only [facility] Scanner 1 scan: (1-Ord) [facility], CLINICAL LABORATORY REPORT, 01/19/2024 01/19/2024 Orders Only [facility] Scanner 1 scan: (1-Ord) [facility], CLINIC LABORATORY REPORT, 01/19/2024 01/18/2024 Orders Only [facility] Scanner 1 scan: (1-Ord) [facility], CLINICAL LABORATORY REPORT, 01/18/2024 01/18/2024 Orders Only [facility] Scanner 1 scan: (1-Ord) [facility], CLINICAL LABORATORY REPORT, 01/18/2024 01/18/2024 Orders Only [facility] Scanner 1 scan: (1-Ord) [facility], CLINICAL LABORATORY REPORT, 01/18/2024 01/18/2024 Orders Only [facility] Scanner 1 scan: (1-Ord) [facility], CT ABDOMEN PELVIS W CON, 01/18/2024 01/18/2024 Orders Only [facility] Scanner 1 scan: (1-Ord) [facility], [place] ABDOMEN LIMITED, 01/18/2024 01/06/2024 Telephone [facility] [address] [place] [address] Charlotte Springer MD Questions (Concern about wound) 01/03/2024 Orders Only [facility] Scanner 1 scan: (1-Ord) [facility], CLINICAL LABORATORY REPORT, 01/03/2024 12/30/2023 Transcribe Orders [facility] [address] [place] [address] Charlotte Springer MD 12/13/2023 Orders Only [facility] Scanner 1 scan: (1-Ord) [facility], CLINICAL LABORATORY REPORT, 12/13/2023 12/12/2023 Lab Requisition [facility] [phone] Unknown, Doctor 12/09/2023 Telephone [facility] [address] [place] [address] Charlotte Springer MD Care Coordination 12/05/2023 11:00 AM CDT Office Visit [facility] [address] [place] [phone] Charlotte Springer MD Follow Up (LLE wound follow up ) 12/05/2023 8:56 AM CDT - 12/05/2023 11:59 PM CDT Hospital Encounter [facility] [address] [place] [address] Charlotte Springer MD Venous insufficiency; Venous stasis ulcer of ankle, left (HC) 12/05/2023 Travel from Last 3 Months Immunizations Name Administration Dates Next Due AMB INFLUENZA IIV3 (AGE 65+ YRS) PF (Flu Clinic Only) 03/23/2017 AMB Influenza, IIV3 (Age >=3 years) Preserve Free (Flu Clinic Only) 04/08/2009 AMB Influenza, IIV3 (Age >=3 years)(Flu Clinic Only) 04/06/2013,04/16/2011,04/24/2008 COVID-19 vaccine ([employer]a NTech 30mcg/0.3mL) PF, MDV 09/02/2020,08/12/2020 Influenza A [...] Sign Reading Time Taken Comments Blood Pressure 130/60 03/01/2024 3:29 PM CDT Pulse 63 03/01/2024 3:29 PM CDT Temperature 36.2 ??C (97.1 ??F) 04/23/2022 8:11 AM CD T Respiratory Rate 18 03/18/2023 2:24 PM CDT Oxygen Saturation 96% 03/01/2024 3:29 PM CDT Inhaled Oxygen Concentration - - Weight 62.2 kg (137 lb 1.6 oz) 03/01/2024 3:29 P M CDT Height 149.9 cm (4' 11) 12/05/2023 10:56 AM CDT Body Mass Index 27.69 12/05/2023 10:56 AM CDT Plan of Treatment Upcoming Encounters Date Type Department Care Team (Late st Contact Info) Description 08/30/2024 10:00 AM SENIOR GOVERNMENT PROGRAM ANALYST [place] [facility] [address] [place] [address] [place] [address] [address] [place] [address] Health Maintenance Due Date Last Done Comments Depression screening for age 12+ 06/18/2021 06/18/2020, 06/18/2020, 06/18/2020, Additional history exists Medicare Wellness for age 65+ 06/19/2021, 06/18/2019, 06/28/2018, Additional history exists COVID-19 vaccine series (6 - 2023-24 season) 2023 06/13/2023, 04/30/2022, 04/14/2021, Additional history [...] 01/13/2016, 12/18/2010 Medical Devices Implanted Type Area Compensation Expert Device Identifier Shelf Expiration Date Model / Serial / Lot Lead Kit 4.32mm Spacing 28cm Length Interstim - [id number] Implanted:Qty: 1 on 04/01/2020 by Charlotte Smith MD at [facility] N/A: Sacrum Medtronic Pain Therapy 09/30/2021 [id number] / / [id number] Stimulator 7.7mm 14cc Interstim Ii - [id number] Implanted:Qty: 1 on 04/01/2020 by Charlotte Smith MD at [facility] N/A: Sacrum Medtronic Pain Therapy 03/31/2021 [id number]# / [id number] / Description:PIN [id number] Procedures Procedure Name Priority Date/Time Associated Diagnosis Comments US VENOUS LOWER EXTREMITY LEFT Routine 02/17/2024 11:46 AM CDT Venous stasis ulcer of ankle, left (HC) US CLOSURE/VEIN MAPPING LT NBA 02/16/2024 9:11 AM CDT Venous stasis ulcer of ankle, left (HC) SCAN-LABORATORY REPORT 12:00 AM CDT SCAN-LABORATORY REPORT 4 [...] 2 SITES AXIAL Routine 07/02/2019 11:48 AM SENIOR GOVERNMENT PROGRAM ANALYST Osteopenia of multiple sites from Last 3 Months or Most Recently Relevant to Health Maintenance Results * US VENOUS LOWER EXTREMITY LEFT (02/17/2024 11:46 AM CDT) Anatomical Region Laterality Modality LEGS, LEG L, Abdomen Ultrasound 02/17/2024 11:1 7 AM CDT Narrative 02/17/2024 5:40 PM CDT VASCULAR ULTRASOUND REPORT RODERICK HEATON Accession#: ?? [id number] : ?1940 ??Study Date: ?? 02/17/2024 11:17:13 AM Age: ?83 years ?? Tech: ? AMS Gender: F ?Referring MD: CHARLOTTE SPRINGER Site: [facility] Study performed: ?Duplex US DVT study, (left). [...] Accreditation Commission (IAC/Vascular), www.intersocietal.org/vascular Report generated by [employer]. ??Final ?? 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 FINDINGS: The LT GSV is occluded from [...] theIntersocietal Accreditation Commission (IAC/Vascular),www.intersocietal.org/vascular Report generated by [employer]. Final Charlotte Springer MD US * US [...] CULTURE RESULT(A) 12/17/2023 2:44 PM CDT [facility] NTRAL LABORATORY CULTURE 1+ Acinetobacter species 12/17/2023 2:44 PM CDT [facility] N[facility]AL LABORATORY Other (Left [...] species MEROPENEM S Doctor Unknown MICROBIOLOGY [facility]-CEN[facility]AL LABORATORY [address] [place] [address], [place] * US VENOUS INSUFFICIENCY LOWER EXTREMITY [...] US VENOUS INSUFFICIENCY LOWER EXTREMITY BILATERAL LOCATION: [facility]IC DATE: 12/05/2023 INDICATION: Lower extremity [...] when greater than 600 ms flow reversal. Underwriting Support Specialist vein reflux reported as greater than [...] US VENOUS INSUFFICIENCY LOWER EXTREMITY BILATERAL LOCATION: [facility]ULAR CL[facility]IC DATE: 12/05/2023 INDICATION: Lower extremity [...] reported when greater than 600ms flow reversal. Underwriting Support Specialist vein reflux reported as greater than [...] DENSITY 2 SITES AXIAL (07/02/2019 11:48 AM SENIOR GOVERNMENT PROGRAM ANALYST) Anatomical Region Laterality Modality Spine, HIPS, HIPL, HIPR Other Narrative 07/06/2019 11:01 AM SENIOR GOVERNMENT PROGRAM ANALYST Please see scanned document for results of this study. Rakel Connor DO DEXA from Last 3 Months or Most Recently Relevant to Health Maintenance Advance Directives Documents on File Type Date Recorded Patient Dip Filler Expl anation Healthcare Directive 07/19/2016 2:58 PM [...] 8:45 AM 09/01/2016 4:04 PM Care Teams Coil Rewind Machine Operator Relationship Specialty Start Date End Date Jose Napier, KHOA [address] [place] [address] PCP - General Physician Service Center Representative 03/01/24 Kd Restrepo MD Endocrinology 11/24/11 Charlotte Smith MD [address] [place] [address] Surgery - Urology 03/01/24
== END 2024-03-02 09:54 | disposition home or self-care (01) ==
LOC: WOUND 09:53
PROVIDERS: PCP Physician Assistant Medical; Visit Provider Nurse Practitioner Family
DX: I87.2 Venous insufficiency (chronic) (peripheral) (principal); I73.9 Peripheral vascular disease, unspecified; L97.322 Non-pressure chronic ulcer of left ankle with fat layer exposed; R73.03 Prediabetes; Z79.52 Long term (current) use of systemic steroids
CPT/HCPCS: G0463

== ENCOUNTER 2024-03-09 09:58 | Outpatient (CLI) | payer OTHER, SELFPAY ==
--- OUTSIDE RECORDS SUMMARY | 2024-03-09 10:03 | XMS_ITS | Clinical Summary ---
Author Organization [facility] Address [place], [place] [address] Care Team Providers Care Coping Machine Operator Name Role Phone Kd Restrepo MD Unavailable [phone] Jose Napier PA-C Primary Care Provider [phone] Charlotte Smith MD Unavailable [phone] Allergies Active Allergy Reactions Criticality Noted Date Comments Amoxicillin 01/19/2007 Aspirin Rash,Itching 01/20/2006 Atorvastatin Myalgia 12/27/2014 Blood-Group Specific Substance Other - Describe In Comment Field High 09/01/2016 Patient has Anti-D. Blood product orders may be delayed. Draw one red top and two purple top tubes for all Type and Screen/Type and Crossmatch orders. 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 09/27 Prediabetes [...] Date Anticoagulation monitoring, INR range 2-3 [Z79.01]; [place] Target 2.5-3.0 12/06/2016 1 Pessary maintenance 02/25/2016 09/28/19 20 Anticoagulation monitoring, goal range 2.0-2.6 09/19/2013 01/09/2018 Abnormal stress test 11/17/2010 011 Routine general medical exam ination at a health care facility 07/12/2009 09/28/2019 Overview: Normal CT angiogram 11/2010 Hip pain 05/06/2008 07/09/2009 Onychomycosis 05/06/2008 08/27/2008 HX OF VENOUS THROMBOSIS AND EMBOLISM 11/09/2006 12/06/2012 Bilateral pulmonary embolism 10/11/2006 11/18/2017 AFTERCARE, LONG-TERM USE, [place] DICATIONS NEC-PLAQUENIL 10/22/2003 Encounters Date Type Department Care Team Description 03/01/2024 3:30 PM CDT Office [place] [facility] [address] [place] [address] Olvin Haji MD Consult (CT, US & MRI - spot on pancreas) 03/01/2024 Travel 02/28/2024 10:00 AM CDT Office [place] [facility] [address] [place] [address] Tomas Page OD Eye Exam (CEE) 02/28/2024 Travel 02/20/2024 Telephone [place] [address] [address] [address] Charlotte Springer MD Results 02/17/2024 10:56 AM CDT - 02/17/2024 11:59 PM CDT Hospital Encounter [facility]TD [facility] [address] [place] [address] Charlotte Springer MD Venous stasis ulcer of ankle, left (HC) 02/16/2024 8:00 AM CDT Procedure Only [facility] [address] [place] [address] Charlotte Springer MD 02/16/2024 6:57 AM CDT - 02/16/2024 11:59 PM CDT Hospital Encounter [facility] [address] [place] [address] Charlotte Springer MD Venous stasis ulcer of ankle, left (HC) 02/16/2024 Travel 02/10/2024 Telephone [facility] [address] [place] [address] Charltote Springer MD Pre Procedure Instructions 01/19/2024 Orders Only [facility] Scanner 1 scan: (1-Ord) [facility], CLINICAL LABORATORY REPORT, 01/19/2024 01/19/2024 Orders Only [facility] Scanner 1 scan: (1-Ord) [facility], CLINIC LABORATORY REPORT, 01/19/2024 01/18/2024 Orders Only [facility] Scanner 1 scan: (1-Ord) [facility], CLINICAL LABORATORY REPORT, 01/18/2024 01/18/2024 Orders Only [facility] Scanner 1 scan: (1-Ord) [facility], CLINICAL LABORATORY REPORT, 01/18/2024 01/18/2024 Orders Only [facility] Scanner 1 scan: (1-Ord) [facility], CLINICAL LABORATORY REPORT, 01/18/2024 01/18/2024 Orders Only [facility] Scanner 1 scan: (1-Ord) [facility], CT ABDOMEN PELVIS W CON, 01/18/2024 01/18/2024 Orders Only [facility] Scanner 1 scan: (1-Ord) [facility], [place] ABDOMEN LIMITED, 01/18/2024 01/06/2024 Telephone [facility] [address] [place] [address] Charlotte Springer MD Questions (Concern about wound) 01/03/2024 Orders Only [facility] Scanner 1 scan: (1-Ord) [facility], CLINICAL LABORATORY REPORT, 01/03/2024 12/30/2023 Transcribe Orders [facility] [address] [place] [address] Charlotte Springer MD 12/13/2023 Orders Only [facility] Scanner 1 scan: (1-Ord) [facility], CLINICAL LABORATORY REPORT, 12/13/2023 12/12/2023 Lab Requisition [facility] [phone] Unknown, Doctor 12/09/2023 Telephone [facility] [address] [place] [address] Charlotte Springer MD Care Coordination from Last 3 Months Immunizations Name Administration Dates Next Due AMB INFLUENZA IIV3 (AGE 65+ YRS) PF (Flu Clinic Only) 03/23/2017 AMB Influenza, IIV3 (Age >=3 years) Preserve Free (Flu Clinic Only) 04/08/2009 AMB Influenza, IIV3 (Age >=3 years)(Flu Clinic Only) 04/06/2013,04/16/2011,04/24/2008 COVID-19 vaccine ([facility] 30mcg/0.3mL) PFMDV 09/02/2020,08/12/2020 Influenza A (H1N1), Inactiva [...] Outcome GA Total Labor Labor//3rd Weight Sex Type Anes PTL Toña A1 [...] st Contact Info) Description 08/30/2024 10:00 AM MILL TENDER WARM UP Office Visit [facility] [address] [place], [place] [phone] [place] [address] [facility] [place] [address] Health Maintenance Due Date Last Done Comments Depression screening for age 12+ 06/18/2021 06/18/2020, 06/18/2020, 06/18/2020, Additional history exists Medicare Wellness for age 65+ 06/19/2021, 06/18/2019, 06/28/2018, Additional history exists COVID-19 vaccine series ( season) 2024 06/13/2023, 04/30/2022, 04/14/2021, Additional history exists Influenza [...] 01/13/2016, 12/18/2010 Medical Devices Implanted Type Area Field Checker Device Identifier Shelf Expiration Date Model / Serial / Lot Lead Kit 4.32mm Spacing 28cm Length Interstim - [id number] Implanted:Qty: 1 on 04/01/2020 by Charlotte Smith MD at [facility] N/A: Sacrum Medtronic Pain Therapy 09/30/2021 [id number] / / [id number] Stimulator 7.7mm 14cc Interstim Ii - [id number] Implanted:Qty: 1 on 04/01/2020 by Charlotte Smith MD at [facility] N/A: Sacrum Medtronic Pain Therapy 03/31/2021 [id number]# / [id number] / Description:PIN [id number] Procedures Procedure Name Priority Date/Time Associated Diagnosis [...] REFERRAL ID/SUSC,NONURINE Routine 12/08/2023 11:47 AM CDT XR DXA BONE DENSITY 2 SITES AXIAL Routine 07/02/2019 11:48 AM MILL TENDER WARM UP Osteopenia of multiple sites from Last 3 Months or Most Recently Relevant to Health Maintenance Results * US VENOUS LOWER EXTREMITY LEFT (02/17/2024 11:46 AM CDT) Anatomical Region Laterality Modality LEGS, LEG L, Abdomen Ultrasound 02/17/2024 11:1 7 AM CDT Narrative 02/17/2024 5:40 PM CDT VASCULAR ULTRASOUND REPORT RODERICK HEATON Accession#: ?? [id number] : ?1940 ??Study Date: ?? 02/17/2024 11:17:13 AM Age: ?83 years ?? Tech: ? AMS Gender: F ?Referring MD: CHARLOTTE SPRINGER Site: [facility] Study performed: ?Duplex US DVT study, [...] Accreditation Commission (IAC/Vascular), www.intersocietal.org/vascular Report generated by [employer]. ??Final ?? Procedure Note Dejan Tolentino MD [...] prior study 12/05/2023, Occluded GSV s/p venous kogzxyrmp07/15/2024. FINDINGS: The LT GSV is occluded from [...] theIntersocietal Accreditation Commission (IAC/Vascular),www.intersocietal.org/vascular Report generated by [employer]. Final Charlotte Springer MD US * US [...] CDT) CULTURE RESULT(A) 12/17/2023 2:44 PM CDT [facility] LABOR[facility] CULTURE 1+ Acinetobacter species 12/17/2023 2:44 PM CDT [facility] Other (Left Leg) Client Collect / Unknown 12/08/2023 11:47 AM CDT 12/12/2023 10:11 PM CDT Narrative Organism Antibiotic Method Susceptibility Acinetobacter species TRIMETHOPRIM/SULF S Acinetobacter species GENTAMICIN S Acinetobacter species CEFTAZIDIME R Acinetobacter species LEVOFLOXACIN S Acinetobacter species CIPROFLOXACIN I Acinetobacter species PIPERACILLIN/TAZO I Acinetobacter species AMPICILLIN/SULBACTAM S Acinetobacter species TOBRAMYCIN S Acinetobacter species MEROPENEM S Doctor Unknown MICROBIOLOGY [facility] [address] [place] [id number], * (ABNORMAL) XR DXA BONE DENSITY 2 SITES AXIAL (07/02/2019 11:48 AM MILL TENDER WARM UP) Anatomical Region Laterality Modality Spine, HIPS, HIPL, HIPR Other Narrative 07/06/2019 11:01 AM MILL TENDER WARM UP Please see scanned document for results of this study. Rakel Connor DO DEXA from Last 3 Months or Most Recently Relevant to Health Maintenance Advance Directives Documents on File Type Date Recorded Patient Batch Blender Expl anation Healthcare Directive 07/19/2016 2:58 PM [...] 8:45 AM 09/01/2016 4:04 PM Care Teams Coping Machine Operator Relationship Specialty Start Date End Date Jose Napier, SHIRAC [address] [place] [id number] PCP - General Physician Machine Packager 03/01/24 Kd Restrepo MD Endocrinology 11/24/11 Charlotte Smith MD [address] [place] [address] Surgery - Urology 03/01/24
--- OUTSIDE RECORDS SUMMARY | 2024-03-09 10:03 | XMS_ITS | Continuity of Care Document ---
Author Organization [facility] Address [address] [place] [address] Phone Care Team Providers Care Review Manager Name Role Phone Helder Medina MD [...] Antibodies Dna Antibody, Single Strand Dna Antibody, Venetie Nuclear Antigen Antibodies Rheumatoid Factor, IGM Rheumatoid Factor, IGG, IGA Advance Directives Directive Yes / No Effective Date File Name No Information Encounters Encounter Description Practice Location Reason(s) For Visit Diagnoses Date Provider Providers Copied on Encounter [facility], [address], [place], [address], [place] tel:[phone] [facility], No Information Apr-- 4 Adam Pendleton. [address], [address], [place], [address], [place]. tel:[phone] Referring Provider: Helder Jain, [address], [place], [address]. tel:[phone] Office/Outpa tient Visit, Est [facility], [address], [place], [address], [place] tel:[phone] [facility], Sjogren syndrome w/ inflammatory arthritisPain in left foot Apr- 0 4 Lebedoff Helder. [address], [address], [place], [address], [place]. tel:[phone] Referring Provider: Helder Jain, [address], [place], [address]. tel:[phone] Office/Outpa tient Visit, Est [facility], [address], [place], [address], [place] tel:[phone] [facility], Sjogren syndrome w/ inflammatory arthritisPrim mauri osteoarthriti s, right hand 3 Lebedoff Helder. [address], [address], [place], [address], [place]. tel:[phone] Referring Provider: Helder Jain, [address], [place], [address]. tel:[phone] Office/Outpa tient Visit, Est [facility], [address], [place], [address], [place] tel:[phone] [facility], Sicca syndrome, unspecifiedWe akness November- 0 3 Lebedoff Helder. [address], [address], [place], [address], [place]. tel:[phone] Referring Provider: Helder Jain, [address], [place], [address]. tel:[phone] Office/Outpa tient Visit, Est [facility], [address], [place], [address], [place] tel:[phone] [facility], Sicca syndrome, unspecifiedPa in in left shoulder Apr- 2 Adam Pendleton. [address], [address], [place], [address], [place]. tel:[phone] Referring Provider: Helder Jain, [address], [place], [address]. tel:[phone] Office/Outpa tient Visit, Est [facility], [address], [place], [address], [place] tel:[phone] [facility], Sicca syndrome, unspecifiedDy spnea Oct- 2 Adam Pendleton. [address], [address], [place], [address], [place]. tel:[phone] Referring Provider: Helder Jain, [address], [place], [address]. tel:[phone] Office/Outpa tient Visit, Est [facility], [address], [place], [address], [place] tel:[phone] [facility], Sicca syndrome, unspecifiedOt her care home (current) drug therapyPrimar y OA of right handDyspnea Apr- 1 Adam Pendleton. [address], [address], [place], [address], [place]. tel:[phone] Referring Provider: Helder Jain, [address], [place], [address]. tel:[phone] Office/Outpa tient Visit, New [facility], [address], [place], [address], [place] tel:[phone] [facility], Sicca syndrome, unspecifiedPa in in rt ankleOther care home (current) drug therapy 1 Adam Pendleton. [address], [address], [place], [address], [place]. tel:[phone] Referring Provider: Helder Medina G, [address], [address]. tel:[phone] [facility], [address], [place], [address], [place] tel:[phone] [facility] No Information 1 Mo Sullivan. [facility] [address] [place] [address] [address], [place], [address], [place]. tel:[phone] Family History Family Member Type Diagnosis Age At Onset No Information Immunizations Vaccine Date Status Comments COVID-19 Moderna administered Source: Ot er Provider COVID-19 Pfizer administered Note: 1 ; Source: Other Provider Payers Payer name Insurance type Covered green party ID Authoriza tion(s) [employer] Adv [id number] MB [id number] Social History Type Description Quantity Date Captured [...] Order Fo ot X-ray; Complete (3+ views) (00903), Sent on: Sent History Of Present Illness [...]
--- OUTSIDE RECORDS SUMMARY | 2024-03-09 10:04 | XMS_ITS | Data Portability ---
Author Organization 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 [...] By Organization Details Last Modified Time 09/14/2021 [id number] Test each progra m for at least 2 weeks, adjusting amplitude as needed. May remain on a program as long as it is effective. Return as needed for reprogramming. [email or web address] Not available 09/14/2021 10:07:26 Patient states t hat Gemtessa samples were very effective, but it is not covered by her insurance. She was also given a rx for Myrbetriq. [email or web address] Not available 09/14/2021 10:08:49 11/12/2021 [id number] Over Active Blad betty (OAB): -Managed with [...] minutes [email or web address] Not available 11/12/2021 11:46:55 04/09/2022 [id number] Test each progra m for at least 2 weeks, adjusting amplitude as needed. May remain on a program as long as it is effective. Return as needed for reprogramming. [email or web address] Not available 04/09/2022 12:34:22 Patient states t hat Gemtesa samples were effective, but the rx was too expensive, so she stopped taking. She would like to try the Gemtesa again, but wonders of it is ok t take every other day, to spread the prescription out, and decrease the expense. I will ask Afsaneh Bui PAC. Not available 04/09/2022 12:37:43 12/06/2022 108139 Test each progra m for at least 2 weeks, adjusting amplitude as needed. May remain on a program as long as it is effective. Return as needed for reprogramming. [email or web address] Not available 12/06/2022 10:55:41 04/28/2023 [id number] Over Active Blad betty (OAB): -Managed with [...] color -advantus YELLOW yellow Not Available [facility] [address], [place], [address], 09/14/2021 10:41:46 09/15/19 22 09/14/2021 UA DIP CS ADVAN TUS appearance -advantus CLEAR clear Not Available [facility] [address], [place], [address], 09/14/2021 10:41:46 09/15/19 22 09/14/2021 UA DIP CS ADVAN TUS glucose -advantus NEGATI VE mg/dL negati ve Not Available [facility] [address] [facility] [address], [place], [address], 09/14/2021 10:41:46 09/15/19 22 09/14/2021 UA DIP CS ADVAN TUS bilirubin -advantus NEGATI VE negati ve Not Available [facility] [address] [facility] [address], [place], [address], 09/14/2021 10:41:46 09/15/19 22 09/14/2021 UA DIP CS ADVAN TUS ketones -advantus NEGATI VE mg/dL negati ve Not Available [facility] [address], [place], [address], 09/14/2021 10:41:46 09/15/19 22 09/14/2021 UA DIP CS ADVAN TUS sp. gravity -advantus 1.010 1.010- 1.025 Not Available [facility] [address] [facility] [address], [place], [address], 09/14/2021 10:41:46 09/15/19 22 09/14/2021 UA DIP CS ADVAN TUS pH -advantus 6.0 5.0-8. 0 Not Available [facility] [address] [facility] [address], [place], [address], 09/14/2021 10:41:46 09/15/19 22 09/14/2021 UA DIP CS ADVAN TUS protein -advantus NEGATI VE mg/dL negati ve Not Available [facility] [address] [facility] [address] [facility] [address], [place], [address], 09/14/2021 10:41:46 09/15/19 22 09/14/2021 UA DIP CS ADVAN TUS urobilinogen -advantus 0.2 normal Not Available [facility] [address] [facility] [address], [place], [address], 09/14/2021 10:41:46 09/15/19 22 09/14/2021 UA DIP CS ADVAN TUS nitrites -advantus NEGATI VE negati ve Not Available [facility] [address] [place] [address] [address], [place], [address], 09/14/2021 10:41:46 09/15/19 22 09/14/2021 UA DIP CS ADVAN TUS blood -advantus SMALL negati ve abnormal Not Available [facility] [address] [place] [address] [address], [place], [address], 09/14/2021 10:41:46 09/15/19 22 09/14/2021 UA DIP CS ADVAN TUS leukocytes -advantus NEGATI VE negati ve Not Available [facility] [address] [place] [address] [address], [place], [address], 09/14/2021 10:41:46 09/15/19 22 09/14/2021 UA DIP CS ADVAN TUS performed by Bibi Ruiz Not Available [email or web address] [address] [place] [address] [address], [place], [address], 09/14/2021 10:41:46 09/15/19 22 09/14/2021 UA DIP [...] ----- ----- ----- ----- ---- Not Available [facility] [address] [place] [address], [place], [address], 09/14/2021 10:41:46 09/15/19 22 09/14/2021 UA MICRO SCOPI C U-WBC 0 - 2 [hpf] 0 - 2 Not Available [facility] [address] [place] [address], [place], [address], 09/14/2021 10:41:47 09/15/19 22 09/14/2021 UA MICRO SCOPI C U-RBC 0 - 2 [hpf] 0 - 2 Not Available [facility] [address] [place] [address], [place], [address], 09/14/2021 10:41:47 09/15/19 22 09/14/2021 UA MICRO SCOPI C bacteria Small [hpf] negati ve abnormal Not Available [facility] [address] [place] [address], [place], [address], 09/14/2021 10:41:47 09/15/19 22 09/14/2021 UA MICRO SCOPI C squamous epi Small /lpf negati ve,sma ll Not Available [facility] [address] [place] [address], [place], [address], 09/14/2021 10:41:47 Result Notes None recorded. Problems Name Problem SNOMED Code Status Onset Date Resolution Date Notes Provider Name and Address Organization Details Recorded Time Chronic cystitis 08894617 Active 2018 N30.20 : Chronic cystitis Not Available [facility] 0 23:40:26 Overactiv e urinary bladder 202107622 Active 2018 N32.81 : Bladder muscle dysfunctio n - overactive Not Available [facility] 0 23:40:26 Benign neoplasti c disease 73564438 Active 2019 Daphne felix, 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 0 09:58:21 Gastroeso phageal reflux disease 542491983 Active 2019 Daphne felix, [facility] 0 09:58:28 Hyperlipi demia 98957245 Active 2019 Daphne Eddisamra felix, [facility] 0 09:58:36 Heart disease 91325232 Active 2022 Radhika felix [facility] 3 11:27:33 Problem Notes None recorded. Procedures Surgical History Date Name Laterality Status Provider Name and Address Organization Details Recorded Time 04/28/20 23 Sacral neuromodulation w/o reprogramming completed ELMA Burciaga [address], [place], [address], [facility] 04/28/2023 11:57:28 04/28/20 23 Bladder Scan completed Radhika felix [facility] 04/28/2023 11:36:21 12/07/19 23 Sacral neuromodulation w/o reprogramming completed Brea felix [facility] 12/06/2022 11:08:45 04/09/20 22 Sacral Stimulator Reprogramming completed Brea felix [facility] 04/09/2022 12:49:34 09/15/19 22 Bladder Scan completed Merry felix [facility] 09/14/2021 10:25:15 09/15/19 22 Sacral neuromodulation w/o reprogramming completed Brea felix [facility] 09/14/2021 10:15:12 08/03/19 22 Past Data Reviewed completed Charlotte Smith MD [address], [place], [address], [facility] 08/03/2021 08:29:52 08/03/19 22 Bladder Scan completed Usha Corado null, [facility] 08/03/2021 11:50:03 11/27/19 21 Sacral Stimulator Reprogramming completed Brea Danitza null, [facility] 11/27/2020 12:44:01 09/17/19 20 Implant neuroelectrodes completed Not Available [facility] 12/13/2019 18:11:39 11/29/19 19 Insert bladder catheter completed Not Available [facility] 12/13/2019 18:11:39 11/14/19 15 Colonoscopy completed Lucinda Nuñez null, [facility] 11/11/2020 11:57:08 11/29/19 09 Total hip arthroplasty completed Not Available [facility] 12/13/2019 18:11:39 11/29/19 00 Unlisted procedure breast completed Not Available [facility] 12/13/2019 18:11:39 Appendectomy add-on completed Not Available [facility] 12/13/2019 18:11:39 Imaging Results None recorded. Procedure Notes None recorded. Medical Equipment None Reported. Allergies Allergen ID Allergen Name Allergen Category Reaction Reaction Severity Criticality Documentation Date Start Date Code Code System Note Provider Name and Address Organization Details Recorded Time 394446 Nitroimid azole (substanc e) medicatio n Not available Not available Not available 12/12/2019 95843 5001 SNOMED Not Available [facility] 0 23:50:45 200178 sulindac medicatio n Not available Not available Not available 12/12/2019 16498 RxNorm Not Available [facility] 0 23:50:45 909862 Medicinal product containin g penicilli n and acting as antibacte rial agent (product) medicatio n itching Not available Not available 12/12/2019 66781 05 SNOMED Not Available [facility] 0 23:50:45 607601 atorvasta tin medicatio n Not available Not available Not available 12/12/2019 95536 RxNorm Not Available [facility] 0 23:50:45 034009 tetracycl ine medicatio n Not available Not available Not available 12/12/2019 56014 RxNorm Not Available [facility] 0 23:50:45 977638 alendrona te sodium medicatio n Not available Not available Not available 12/12/2019 65907 2 RxNorm Not Available [facility] 0 23:50:45 840267 amoxicill in medicatio n Not available Not available Not available 12/12/2019 723 RxNorm Not Available [facility] 0 23:50:45 521470 oxybutyni n chloride Not available dizziness Not available Not available 12/12/2019 81649 RxNorm fatig ue Not Available [facility] 0 23:50:45 662945 aspirin medicatio n Not available Not available Not available 12/12/2019 1191 RxNorm Not Available [facility] 0 23:50:46 835049 losartan Not available Not available Not available Not available 12/12/2019 08074 RxNorm Not Available [facility] 0 23:50:46 511817 estrogens , conjugate d ([facility]) medicatio n Not available Not available Not available 12/12/2019 4099 RxNorm Not Available [facility] 0 23:50:46 628782 ciproflox acin medicatio n Not available Not available Not available 12/12/2019 2551 RxNorm Not Available [facility] 0 23:50:46 475164 hydrochlo rothiazid e medicatio n Not available Not available Not available 12/12/2019 5487 RxNorm Not Available [facility] 0 23:50:46 929767 metoprolo l Not available Not available Not available Not available 12/12/2019 6918 RxNorm Not Available [facility] 0 23:50:46 657840 naproxen medicatio n Not available Not available Not available 12/12/2019 7258 RxNorm Not Available [facility] 0 23:50:46 853006 clindamyc in Not available Not available Not available Not available 12/12/2019 2582 RxNorm Not Available [facility] 0 23:50:46 758411 Substance with sulfonami de structure and antibacte rial mechanism of action (substanc e) medicatio n Not available Not available Not available 11/11/2020 50538 8003 SNOMED Lucinda Nuñez [facility] 1 11:56:30 511660 Myrbetriq medicatio n swelling Not available Not available 10/05/2021 84728 92 RxNorm RODERICK THOMSON [facility] 2 13:18:14 971615 Sambucus Elderberr y Immune medicatio n Not available Not available Not available 04/09/2022 Brea Bosch null, [facility] 2 12:14:11 Medications Name Sig [...] Updated DateTime 04/09/2022 154.94 cm 27.8 kg/m2 68950.08 g Brea Bosch [facility] 04/09/2022 12:13:52 Date Recorded Body height Body mass index (BMI) Body weight Provider Name and Address Organization Details Last Updated DateTime 12/06/2022 154.94 cm 25.5 kg/m2 [address]7736.[address] [facility] 12/06/2022 10:41:56 Date Recorded Body height Body mass index (BMI) Body weight Provider Name and Address Organization Details Last Updated DateTime 04/28/2023 154.94 cm 25.5 kg/m2 39431.[address] [facility] 04/28/2023 11:25:35 Date Recorded Body height Body mass index (BMI) Body weight Provider Name and Address Organization Details Last Updated DateTime 09/14/2021 158.75 cm 26.5 kg/m2 29033.08 g Brea Bosch [facility] 09/14/2021 09:54:39 Date Recorded Body height Body mass index (BMI) Body weight Provider Name and Address Organization Details Last Updated DateTime 09/14/2021 158.75 cm 26.5 kg/m2 [address]001.[address] [facility] 09/14/2021 10:08:57 Date Recorded Body height Body mass index (BMI) Body weight Provider Name and Address Organization Details Last Updated DateTime 11/12/2021 154.94 cm 27.8 kg/m2 05702.[address] [facility] 11/12/2021 11:32:20 Social History Question Answer Notes LastModified by Organizat ion Details LastModified Time Tobacco Smoking Status Never Smoker Not Available [facility] 12/13/2019 02:00:45 What Is Your Level Of Alcohol Consumption? None Information not available 09/14/2021 What Is Your Level Of Caffeine Consumption? Heavy Information not available 09/14/2021 Are You Currently Employed? No Information not available 09/14/2021 Race [email or web address] Information n ot available 12/13/2019 Ethnicity Not /Lat vane Information not available 09/14/2021 Preferred Language Luxembourgish Information not available 09/14/2021 Recreational Drug Use No Information not available 09/14/2021 Could You Be ? No Information not available 09/14/2021 Marital Status [email or web address] Informati on not available 12/13/2019 What Was The Date Of Your Most Recent Tobacco Screening? 12/06/2022 [email or web address] Information not available 12/06/2022 What Is Your [...] conjugate PCV 13 07/04/2017 completed STEPHEN Germain [facility] 04/28/2023 11:25:40 Past Encounters Encounter ID Performer Location Encounter Start Date Encounter Closed Date Diagnosis/Indication Diagnosis SNOMED-CT Code Diagnosis ICD10 Code [id number] Charlotte Smith MD [address] [address] 04/15/2020 10:02:52 04/25/2020 12:54:57 Overactive urinary bladder 126471047 N32.81 Urge incon tinence of urine 84953430 N39.41 [id number] Charlotte Smith MD [address] [address] 05/13/2020 10:14:48 05/13/2020 14:22:18 Overactive urinary bladder 946010144 N32.81 Urge incon tinence of urine 19899622 N39.41 History of urinary tract infection 6429331506 107 Z87.440 [id number] Charlotte Smith MD [address] [address] 11/11/2020 11:46:55 11/11/2020 13:40:18 Overactive urinary bladder 206883911 N32.81 Urge incon tinence of urine 70019993 N39.41 [id number] Brea Bosch [facility] [address] [facility] [address] [place] [address] 11/26/2020 10:15:12 12/02/2020 15:37:48 Overactive urinary bladder 582490079 N32.81 Nocturia 571074651 R35.1 [id number] Charlotte Smith MD [facility] [address] [place] [address] [place] [id number] 08/03/2021 11:31:50 08/03/2021 12:09:22 Overactive urinary bladder 513936756 N32.81 Urge incon tinence of urine 77872973 N39.41 Nocturia 020800203 R35.1 [id number] ELMA Burciaga [facility] [address] [place] [address] [place] [id number] 09/14/2021 10:06:36 09/14/2021 14:16:12 Overactive urinary bladder 756057530 N32.81 Urge incon tinence of urine 37417359 N39.41 Nocturia 020157355 R35.1 [id number] Brea Bosch [facility] [address] [place] [address] [place] [address] 09/14/2021 09:30:06 09/14/2021 14:31:59 Overactive urinary bladder 472772970 N32.81 [id number] ELMA Burciaga [facility] [address] [place] [address] 11/12/2021 11:29:59 11/12/2021 12:37:25 Overactive urinary bladder 692644231 N32.81 Urge incon tinence of urine 66864140 N39.41 Nocturia 180695685 R35.1 [id number] Brea Bosch [facility] [address] [place] [address] [place] [id number] 04/09/2022 11:43:46 04/09/2022 13:38:20 Overactive urinary bladder 084489696 N32.81 [id number] Brea Bosch [facility] [address] [place] [id number] 12/06/2022 10:28:13 12/06/2022 11:24:29 Overactive urinary bladder 233707595 N32.81 [id number] ELMA Burciaga [facility] [address] [place] [address] [place] [address] 04/28/2023 11:22:38 04/28/2023 12:04:03 Overactive urinary bladder 535988860 N32.81 Urge incon tinence of urine 33764943 N39.41 Nocturia 862221041 R35.1 Health Concerns Section Related Observation LastModified by Organization Detai ls LastModified Time None Recorded Concern Status LastModified by Organization Details LastModified Time None Recorded Advance Directives Directive None Recorded Payers Encounter Date Sequence Insurance Name Policy Number Policy Betancourt Covered Member ID Betancourt Member ID Guarantor Name 09/14/2021 1 [place] [employer] [place] [facility] Patsy A Wood [id number] Patsy A Wood 09/14/2021 2 [facility] [id number] Patsy A Datameer [id number] Patsy A Datameer 11/12/2021 1 [place] [employer] [place] [facility] Patsy A Wood [id number] Patsy A Wood 11/12/2021 2 [place] [id number] Patsy A Datameer [id number] Patsy A Wood 04/09/2022 1 [place] [employer] [facility] Patsy A Wood [id number] Patsy A Wood 04/09/2022 2 [place] [id number] Patsy A Wood [id number] Patsy A Wood 12/06/2022 1 [place] [employer] [facility] Patsy A Wood [id number] Patsy A Wood 12/06/2022 2 [place] [id number] Patsy A Wood [id number] Patsy A Wood 04/28/2023 1 [place] [employer] Patsy A Wood [id number] Patsy A Datameer 04/28/2023 2 [place] [id number] Patsy A Datameer [id number] Patsy A [place] Notes Date Note Type Note Provider Name [...] to be almost every hour. ELMA Burciaga [address] [place] [address],[address], [place], [address], [facility] [place] [facility] 09/14/2021 10:49:41 11/12/2021 text/html HPI Notes: [...] with sjorgrens. This visit was conducted using Novalact phone technology. Prior to conducting our health visit, the patient and I discussed the risks, benefits and alternatives to phone visits. The patient elected to proceed with the phone visit. ELMA Burciaga [address] [place] [address],[address], [address], [facility] 11/12/2021 11:50:24 12/06/2022 text/html HPI [...] changed Rate chaanged Resolution changed Brea felix [facility] 12/06/2022 11:08:58 04/28/2023 text/html HPI [...] to be almost every hour. ELMA Burciaga [address] [place] [address],[address], [place], [address], [facility] 04/28/2023 11:58:40 OBGyn Episode No OBEpisode recorded.
--- OUTSIDE RECORDS SUMMARY | 2024-03-09 10:04 | XMS_ITS | Continuity of Care Document ---
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 [facility], [address], [place], [place], [id number] , [place]. [phone] Office/Outpat ient Visit,Est, Mod [facility], [address], [place], [place], [id number], [place] tel:[phone] [facility] Other forms of scoliosis, thoracolumbar regionL2 wedge compression fracture, initial encounter for closed fractureSpondy lolisthesis, lumbar region 0 [facility]. [facility], [address], [place], [place], [id number] , [place]. tel:[phone] Referring Provider: Rakel Arvizu, [facility] [address] [place], [address]. tel:[phone] Office/Outpat ient Visit,Est, Mod [facility], [address], [facility] [place], [id number], [place] tel:[phone] [facility] L2 wedge compression fracture, initial encounter for closed fractureOther forms of scoliosis, thoracolumbar regionSpondylo listhesis, lumbar region 0 Kwame Kerr. [facility], [address], [place], [place], [id number] , . tel:[phone] Referring Provider: Rakel Arvizu [email or web address] [address] [place], [address]. tel:[phone] Office/Outpat ient Visit,[facility], [facility], [address], [facility] [place], [id number], [place] tel:[phone] [facility] [place] L2 wedge compression fracture, initial encounter for closed fractureOther forms of scoliosis, thoracolumbar regionSpondylo listhesis, lumbar region 0 Kwame Kerr. [facility], [address], [place], [place], [id number] , [place]. tel:[phone] Referring Provider: Rakel Arvizu [email or web address] [address] [place], [address]. tel:[phone] Family History Family Member Type Diagnosis Age At Onset No Information Payers Payer name Insurance type Covered constitution party ID Authoralethaa tishannon(s) Medicare MB [id number] [facility] [address] [facility] [id number] Social History Type Description Quantity Date Captured [...]
== END 2024-03-09 09:59 | disposition home or self-care (01) ==
LOC: WOUND 09:58
PROVIDERS: PCP Physician Assistant Medical; Visit Provider Nurse Practitioner Family
DX: I87.2 Venous insufficiency (chronic) (peripheral) (principal); I73.9 Peripheral vascular disease, unspecified; L97.322 Non-pressure chronic ulcer of left ankle with fat layer exposed
CPT/HCPCS: 97597

== ENCOUNTER 2024-03-16 10:00 | Outpatient (CLI) | payer OTHER, SELFPAY ==
--- OUTSIDE RECORDS SUMMARY | 2024-03-16 10:02 | XMS_ITS | Continuity of Care Document ---
Author Organization [facility] Address [address] [place] [address] Phone Care Team Providers Care Integration Technician Name Role Phone Usha Dickinson Unavailable Unavailable [...] on Encounter [facility], [address], [place], [place], [id number], [place] tel:[phone] No Information Formerly [facility]. [facility], [address], [place], [place], [id number] , [place]. [phone] Office/Outpat ient Visit,Est, Mod [facility], [address], [place], [place], [id number], [place] tel:[phone] [facility] Other forms of scoliosis, thoracolumbar regionL2 wedge compression fracture, initial encounter for closed fractureSpondy lolisthesis, lumbar region 0 Formerly [facility]. [facility], [address], [place], [place], [address] , [place]. tel:[phone] Referring Provider: Rakel Arvizu, [facility] [address] [place], [address]. tel:[phone] Office/Outpat ient Visit,Est, Mod [facility], [address], [facility] [place], [id number], [place] tel:[phone] [facility] L2 wedge compression fracture, initial encounter for closed fractureOther forms of scoliosis, thoracolumbar regionSpondylo listhesis, lumbar region 0 Kwame Kerr. [facility], [address], [place], [place], [address] , . tel:[phone] Referring Provider: Rakel Arvizu Beeminder [address] [place], [address]. tel:[phone] Office/Outpat ient Visit,[facility], [facility], [facility], [address], [facility] [place], [place], [address], [place] tel:[phone] [facility] L2 wedge compression fracture, initial encounter for closed fractureOther forms of scoliosis, thoracolumbar regionSpondylo listhesis, lumbar region 0 Kwame Kerr. [facility], [address], [place], [place], [address] , [place]. tel:[phone] Referring Provider: Rakel Arvizu Beeminder [address] [place], [address]. tel:[phone] Family History Family Member Type Diagnosis Age At Onset No Information Payers Payer name Insurance type Covered green party ID Authoralethaa tishannon(s) Medicare MB [id number] [facility] [id number] [facility] [id number] Social History Type Description Quantity Date Captured [...]
--- OUTSIDE RECORDS SUMMARY | 2024-03-16 10:02 | XMS_ITS | Clinical Summary ---
Author Organization [facility] Address [place], [place] [address] Care Team Providers Care Yard Associate Name Role Phone Kd Restrepo MD Unavailable [phone] Jose Napier PA-C Primary Care Provider [phone] Charlotte Smith MD Unavailable Allergies Active Allergy Reactions Criticality Noted Date Comments Amoxicillin 01/19/2007 Aspirin Rash,Itching 01/20/2006 Atorvastatin Myalgia 12/27/2014 Blood-Group Specific Substance Other - Describe In Comment Field High 09/01/2016 Patient has Anti-D. Blood product orders may be delayed. Draw one red top and two purple top tubes for all Type and Screen/Type and Crossmatch orders. 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 Pulmonary embolism, bilateral 04/10/2015 Overview (04/10/2015): 03/06/2001 Dyslipidemia 10/23/2014 Mixed connective tissue disease 08/26/2014 Osteopenia 12/06/2012 Overview (07/09/2019): DEXA 07/02/19: T-scores AP: 0.2, LFN -1.4, RFN N/A. FRAX 27.3% hip FRAX 6.5%. Unable to repeat DEXA due to Medicare until 01/2019. Hhistory of vertebral compression fracture. On chronic prednisone and Prolia. Continue Prolia and repeat in 2 years. Lichen sclerosus 12/06/2012 SOB (shortness of breath) on exertion 11/17/2010 Benign neoplasm of colon 07/24/2009 Overview (11/14/2014): Colonoscopy 07/2009 polyps repeat in 5 years Colonoscopy 11/2014 polyps repeat in 5 years Impaired fasting glucose 05/06/2008 Diverticulitis of colon (without mention of hemo rrhage) 02/03/2007 Overview (03/30/2019): Colonoscopy 03/2019 polyp, normal biopsies, repeat in 5 years Unspecified essential hypertension 10/11/2006 Chronic lymphocytic thyroiditis 10/11/2006 Senile nuclear sclerosis 01/20/2006 Overview (01/20/2006): both Esophageal reflux Resolved Problems Problem Noted Date Diagnosed Date Resolved Date Anticoagulation monitoring, INR range 2-3 [Z79.01]; [place] Target 2.5-3.0 12/06/2016 1 Pessary maintenance 02/25/2016 09/28/19 20 Anticoagulation monitoring, goal range 2.0-2.6 09/19/2013 01/09/2018 Abnormal stress test 11/17/2010 011 Routine general medical exam ination at a health care facility 07/12/2009 09/28/2019 Overview (12/06/2012): Normal CT angiogram 11/2010 Hip pain 05/06/2008 07/09/2009 Onychomycosis 05/06/2008 08/27/2008 HX OF VENOUS THROMBOSIS AND EMBOLISM 11/09/2006 12/06/2012 Bilateral pulmonary embolism 10/11/2006 11/18/2017 AFTERCARE, LONG-TERM USE, PA DICATIONS NEC-PLAQUENIL 10/22/2003 Encounters Date Type Department Care Team Description 03/01/2024 3:30 PM CDT Office [facility] [address] [place] [address] Olvin Haji MD Consult (CT, US & MRI - spot on pancreas) 03/01/2024 Travel 02/28/2024 10:00 AM CDT Office [facility] [address] [place] [address] Tomas Page OD Eye Exam (CEE) 02/28/2024 Travel 02/20/2024 Telephone [facility] [address] [place] [address] Charlotte Springer MD Results 02/17/2024 10:56 AM CDT - 02/17/2024 11:59 PM CDT Hospital Encounter [facility] [address] [place] [address] Charlotte Springer MD Venous stasis ulcer of ankle, left (HC) 02/16/2024 8:00 AM CDT Procedure Only [facility] [address] [place] [address] Charlotte Springer MD 02/16/2024 6:57 AM CDT - 02/16/2024 11:59 PM CDT Hospital Encounter [facility] [address] [place] [address] Charlotte Springer MD Venous stasis ulcer of ankle, left (HC) 02/16/2024 Travel 02/10/2024 Telephone [facility] [address] [place] [address] Charlotte Springer MD Pre Procedure Instructions 01/19/2024 Orders Only [facility] Scanner 1 scan: (1-Ord) [facility], CLINICAL LABORATORY REPORT, 01/19/2024 01/19/2024 Orders Only [facility] Scanner 1 scan: (1-Ord) [facility], CLINIC LABORATORY REPORT, 01/19/2024 01/18/2024 Orders Only [facility] Scanner 1 scan: (1-Ord) [facility], CLINICAL LABORATORY REPORT, 01/18/2024 01/18/2024 Orders Only [facility] Scanner 1 scan: (1-Ord) [facility], CLINICAL LABORATORY REPORT, 01/18/2024 01/18/2024 Orders Only [facility] Scanner 1 scan: (1-Ord) [facility], CLINICAL LABORATORY REPORT, 01/18/2024 01/18/2024 Orders Only [facility] Scanner 1 scan: (1-Ord) [facility], CT ABDOMEN PELVIS W CON, 01/18/2024 01/18/2024 Orders Only [facility] Scanner 1 scan: (1-Ord) [facility], US ABDOMEN LIMITED, 01/18/2024 01/06/2024 Telephone [facility] [address] [place] [address] Charlotte Springer MD Questions (Concern about wound) 01/03/2024 Orders Only [facility] Scanner 1 scan: (1-Ord) [facility], CLINICAL LABORATORY REPORT, 01/03/2024 12/30/2023 Transcribe Orders [facility] [address] [place] [address] Charlotte Springer MD from Last 3 Months Immunizations Name Administration Dates Next Due AMB INFLUENZA IIV3 (AGE 65+ YRS) PF (Flu Clinic Only) 03/23/2017 AMB Influenza, IIV3 (Age >=3 years) Preserve Free (Flu Clinic Only) 04/08/2009 AMB Influenza, IIV3 (Age >=3 years)(Flu Clinic Only) 04/06/2013,04/16/2011,04/24/2008 COVID-19 vaccine (Appistry NTech 30mcg/0.3mL) PF, MDV 09/02/2020,08/12/2020 Influenza A (H1N1), Inactiva clint (Age >=3 Years) 07/09/2009 Influenza, High-dose Inactivated 04/05/2016,04/03,04/01/2014 Influenza, IIV3 (Age >=3 years) 04/19/2012,03/25,05/10/2007 Influenza, Inactivated AIIV4 (Age 65+ Years) Preserv Free 03/20/2020 Influenza, Inactivated IIV3 (Age 65+ Years) Preserv Free 04/03/2019,03/02/2018 Pneumococcal Poly,23-Valent (Pneumovax) 10/16/19,04/11/1997 Pneumococcal conj 13-Valent (Prevnar 13) 015 Td [...] Contact Info) Description 08/30/2024 10:00 AM SENIOR ELECTRICAL ENGINEER Office [facility] [address] [place] [address] [place] [address] [place], [place] [id number] Health Maintenance Due Date Last Done Comments RSV vaccine for adults or (1 - 1-dose 60+ series) 2000 Depression screening for age 12+ 06/18/2021 06/18/2020, [...] 01/13/2016, 12/18/2010 Medical Devices Implanted Type Area Paper Box Cutter Device Identifier Shelf Expiration Date Model / Serial / Lot Lead Kit 4.32mm Spacing 28cm Length Interstim - [id number] Implanted:Qty: 1 on 04/01/2020 by Charlotte Smith MD at [facility] N/A: Sacrum Medtronic Pain Therapy 09/30/2021 [id number] / / [id number] Stimulator 7.7mm 14cc Interstim Ii - [id number] Implanted:Qty: 1 on 04/01/2020 by Charlotte Smith MD at [facility] N/A: Sacrum Medtronic Pain Therapy 03/31/2021 [id number] / [id number] / Description:PIN [id number] Procedures Procedure Name Priority Date/Time Associated Diagnosis [...] CDT SCAN-LABORATORY REPORT 4 12:00 AM CDT XR DXA BONE DENSITY 2 SITES AXIAL Routine 07/02/2019 11:48 AM SENIOR ELECTRICAL ENGINEER Osteopenia of multiple sites from Last 3 Months or Most Recently Relevant to Health Maintenance Results * US VENOUS LOWER EXTREMITY LEFT (02/17/2024 11:46 AM CDT) Anatomical Region Laterality Modality LEGS, LEG L, Abdomen Ultrasound 02/17/2024 11:1 7 AM CDT Narrative 02/17/2024 5:40 PM CDT VASCULAR ULTRASOUND REPORT RODERICK HEATON Accession#: ?? [id number] : ?1940 ??Study Date: ?? 02/17/2024 11:17:13 AM Age: ?83 years ?? Tech: ? AMS Gender: F ?Referring MD: CHARLOTTE SPRINGER Site: [facility] Vascular [facility] Study performed: ?Duplex US DVT study, (left). [...] Accreditation Commission (IAC/Vascular), www.intersocietal.org/vascular Report generated by [employer]. ??Final ?? Procedure Note Dejan Tolentino MD [...] prior study 12/05/2023, Occluded GSV s/p venous edlohdsrw98/15/2024. FINDINGS: The LT GSV is occluded from [...] theIntersocietal Accreditation Commission (IAC/Vascular),www.[email or web address].org/vascular Report generated by [employer]. Final Charlotte Springer MD US * US [...] 12:00 AM CDT) Only the most recent of6 resultswithin the time period is included. Scanner OTHER * SCAN-ULTRASOUND REPORT (01/18/2024 12:00 AM CDT) Anatomical Region Laterality Modality Other Scanner OTHER * SCAN-CT INTERPRETATION (01/18/2024 12:00 AM CDT) Anatomical Region Laterality Modality Other Scanner OTHER * (ABNORMAL) XR DXA BONE DENSITY 2 SITES AXIAL (07/02/2019 11:48 AM SENIOR ELECTRICAL ENGINEER) Anatomical Region Laterality Modality Spine, HIPS, HIPL, HIPR Other Narrative 07/06/2019 11:01 AM SENIOR ELECTRICAL ENGINEER Please see scanned document for results of this study. 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
--- OUTSIDE RECORDS SUMMARY | 2024-03-16 10:03 | XMS_ITS | Continuity of Care Document ---
Author Organization [facility] Address [address] [place] [address] Phone Care Team Providers Care Top Collar Baster Name Role Phone Helder Medina MD Unavailable [...] Antibodies Dna Antibody, Single Strand Dna Antibody, [place] Nuclear Antigen Antibodies Rheumatoid Factor, IGM Rheumatoid Factor, IGG, IGA Advance Directives Directive Yes / No Effective Date File Name No Information Encounters Encounter Description Practice Location Reason(s) For Visit Diagnoses Date Provider Providers Copied on Encounter [facility], [address], [place], [address], [place] tel:[phone] [facility], No Information Apr-- [address] Adam Pendleton. [address], [place], [address], [place]. tel:[phone] Referring Provider: Helder Jain, [address], [place], [address]. tel:[phone] Office/Outpa tient Visit, Est [facility], [address], [place], [address], [place] tel:[phone] [facility], Sjogren syndrome w/ inflammatory arthritisPain in left foot Apr- 0 4 Lebedoff Helder. [address], [place], [address], [place]. tel:[phone] Referring Provider: Helder Jain, [address], [place], [address]. tel:[phone] Office/Outpa tient Visit, Est [facility], [address], [place], [address], [place] tel:[phone] [facility], Sjogren syndrome w/ inflammatory arthritisPrim mauri osteoarthriti s, right hand 3 Lebedoff Helder. [address], [place], [address], [place]. tel:[phone] Referring Provider: Helder Jain, [address], [place], [address]. tel:[phone] Office/Outpa tient Visit, Est [facility], [address], [place], [address], [place] tel:[phone] [facility], Sicca syndrome, unspecifiedWe akness November- 0 3 Lebedoff Helder. [address], [place], [address], [place]. tel:[phone] Referring Provider: Helder Jain, [address], [place], [address]. tel:[phone] Office/Outpa tient Visit, Est [facility], [address], [place], [address], [place] tel:[phone] [facility], Sicca syndrome, unspecifiedPa in in left shoulder Apr- 2 Adam Pendleton. [address], [place], [address], [place]. tel:[phone] Referring Provider: Heldre Jain, [address], [place], [address]. tel:[phone] Office/Outpa tient Visit, Est [facility], [address], [place], [address], [place] tel:[phone] [facility], Sicca syndrome, unspecifiedDy spnea Oct- 2 Adam Pendleton. [address], [place], [address], [place]. tel:[phone] Referring Provider: Helder Jain, [address], [place], [address]. tel:[phone] Office/Outpa tient Visit, Est [facility], [address], [place], [address], [place] tel:[phone] [facility], Sicca syndrome, unspecifiedOt her documentation coordinator (current) drug therapyPrimar y OA of right handDyspnea Apr- 1 Adam Pendleton. [address], [place], [address], [place]. tel:[phone] Referring Provider: Helder Jain, [address], [place], [address]. tel:[phone] Office/Outpa tient Visit, New [facility], [address], [place], [address], [place] tel:[phone] [facility], Sicca syndrome, unspecifiedPa in in rt ankleOther longterm (current) drug therapy 1 Adam Pendleton. [address], [address], [place], [address], [place]. tel:[phone] Referring Provider: Helder Medina G, [address], [address]. tel:[phone] [facility], [address], [place], [address], [place] tel:[phone] [facility] No Information 1 Mo Sullivan. [facility] [address] [place] [address] [address], [place], [address], [place]. tel:[phone] Family History Family Member Type Diagnosis Age At Onset No Information Immunizations Vaccine Date Status Comments COVID-19 Moderna administered Source: Ot er Provider COVID-19 Pfizer administered Note: 1 ; Source: Other Provider Payers Payer name Insurance type Covered democrat ID Authoriza tion(s) [employer] Medicare Adv [id number] MB [id number] Social History Type Description Quantity Date Captured [...] Order Fo ot X-ray; Complete (3+ views) (37892), Sent on: Sent History Of Present Illness [...]
== END 2024-03-16 10:01 | disposition home or self-care (01) ==
LOC: WOUND 10:00
PROVIDERS: PCP Physician Assistant Medical; Visit Provider Nurse Practitioner Family
DX: I87.2 Venous insufficiency (chronic) (peripheral) (principal); I73.9 Peripheral vascular disease, unspecified; L97.322 Non-pressure chronic ulcer of left ankle with fat layer exposed
CPT/HCPCS: 11042

== ENCOUNTER 2024-03-23 09:59 | Outpatient (CLI) | payer OTHER, SELFPAY ==
--- OUTSIDE RECORDS SUMMARY | 2024-03-23 10:03 | XMS_ITS | Clinical Summary ---
Author Organization [facility] Address [place], [place] [address] Care Team Providers Care Banquet Houseperson Name Role Phone Kd Restrepo MD Unavailable [phone] Jose Napier PANettieC Primary Care Provider [phone] Charlotte Smith MD Unavailable [phone] Charlotte Springer MD Unavailable [phone] Allergies Active Allergy Reactions Criticality Noted Date Comments Amoxicillin 01/19/2007 Aspirin Rash,Itching 01/20/2006 Atorvastatin Myalgia 12/27/2014 Blood-Group Specific Substance Other - Describe In Comment Field High 09/01/2016 Patient has Anti-D. Blood product orders may be delayed. Draw one red top and two purple top tubes for all Type and Screen/Type and Crossmatch orders. 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 09/27 Prediabetes [...] Date Anticoagulation monitoring, INR range 2-3 [Z79.01]; [place] [employer] 2.5-3.0 12/06/2016 1 Pessary maintenance 02/25/2016 [...] Encounters Date Type Department Care Team Description 03/21/2024 Telephone [facility] [address] [place] [address] Charlotte Springer MD status of left wound ankle 03/01/2024 3:30 PM CDT Office Visit [facility] [address] [place] [address] Olvin Haji MD Consult (CT, US & MRI - spot on pancreas) 03/01/2024 Travel 02/28/2024 10:00 AM CDT Office Visit [facility] [address] [place] [address] Tomas Page, OD Eye Exam (CEE) 02/28/2024 Travel 02/20/2024 Telephone [facility] [address] [place] [address] Charlotte Springer MD Results 02/17/2024 10:56 AM CDT - 02/17/2024 11:59 PM CDT Hospital Encounter [facility] [address] [place] [address] Charlotte Springer MD Venous stasis ulcer of ankle, left (HC) 02/16/2024 8:00 AM CDT Procedure Only [facility] [address] [place] [address] Charlotte Springer MD 02/16/2024 6:57 AM CDT - 02/16/2024 11:59 PM CDT Hospital Encounter [facility] [address] [place] [address] Charlotte Springer MD Venous stasis ulcer of ankle, left (HC) 02/16/2024 Travel 02/10/2024 Telephone [facility] [address] [place] [address] Charlotte Springer MD Pre Procedure Instructions 01/19/2024 Orders Only [facility] Scanner 1 scan: (1-Ord) [facility], CLINICAL LABORATORY REPORT, 01/19/2024 01/19/2024 Orders Only [facility] Scanner 1 scan: (1-Ord) [facility], CLINIC LABORATORY REPORT, 01/19/2024 01/18/2024 Orders Only [facility] Scanner 1 scan: (1-Ord) [facility], CLINICAL LABORATORY REPORT, 01/18/2024 01/18/2024 Orders Only [facility] Scanner 1 scan: (1-Ord) [facility], CLINICAL LABORATORY REPORT, 01/18/2024 01/18/2024 Orders Only [facility] Scanner 1 scan: (1-Ord) [facility], CLINICAL LABORATORY REPORT, 01/18/2024 01/18/2024 Orders Only [facility] Scanner 1 scan: (1-Ord) [facility], CT ABDOMEN PELVIS W CON, 01/18/2024 01/18/2024 Orders Only [facility] Scanner 1 scan: (1-Ord) [facility], [place] ABDOMEN LIMITED, 01/18/2024 01/06/2024 Telephone [facility] [address] [place] [phone] Charlotte Springer MD Questions (Concern about wound) 01/03/2024 Orders Only [facility] SERVICES Scanner 1 scan: (1-Ord) [facility], CLINICAL LABORATORY REPORT, 01/03/2024 12/30/2023 Transcribe Orders [facility] [address] [place] [address] Charlotte Springer MD from Last 3 Months Immunizations Name Administration Dates Next Due AMB INFLUENZA IIV3 (AGE 65+ YRS) PF (Flu Clinic Only) 03/23/2017 AMB Influenza, IIV3 (Age >=3 years) Preserve Free (Flu Clinic Only) 04/08/2009 AMB Influenza, IIV3 (Age >=3 years)(Flu Clinic Only) 04/06/2013,04/16/2011,04/24/2008 COVID-19 vaccine ([employer] NTGamelet 30mcg/0.3mL) PF, MDV 09/02/2020,08/12/2020 Influenza A (H1N1), [...] Care Team (Late st Contact Info) Description 05/07/2024 8:30 AM YARD COUPLER Office Visit [facility] [address] [place] [phone] Charlotte Springer MD [address] [place] [address] 08/30/2024 10:00 AM YARD COUPLER Office Visit [facility] [address] [place], [place] [id number] [place] [address] [place] [address] Health Maintenance Due Date Last Done Comments [...] Additional history exists Tetanus booster 01/28/2030 01/29/2020, 05/08/2010, 02/02/2004, Additional history exists Tdap Completed 11/02/2010 Pneumococcal series for age 65+ Completed 07/19/2014, 10/15/2005, 04/11/1997 Zoster (shingles) series for age 50+ Completed 09/27/2018, 07/06/2018 DEXA/DXA scan for age 65+ Completed 2018, 01/13/2016, 12/18/2010 Medical Devices Implanted Type Area Supervisor Polishing Device Identifier Shelf Expiration Date Model / Serial / Lot Lead Kit 4.32mm Spacing 28cm Length Interstim - [id number] Implanted:Qty: 1 on 04/01/2020 by Charlotte Smith MD at [facility] N/A: Sacrum [employer] Pain Therapy 09/30/2021 [id number] / / [id number] Stimulator 7.7mm 14cc Interstim Ii - [id number] Implanted:Qty: 1 on 04/01/2020 by Charlotte Smith MD at [facility] N/A: Sacrum [employer] Pain Therapy 03/31/2021 [id number] / [id number] / Description:PIN [id number] Procedures Procedure Name Priority Date/Time Associated Diagnosis [...] 2 SITES AXIAL Routine 07/02/2019 11:48 AM YARD COUPLER Osteopenia of multiple sites from Last 3 Months or Most Recently Relevant to Health Maintenance Results * US VENOUS LOWER EXTREMITY LEFT (02/17/2024 11:46 AM CDT) Anatomical Region Laterality Modality LEGS, LEG L, Abdomen Ultrasound 02/17/2024 11:1 7 AM CDT Narrative 02/17/2024 5:40 PM CDT VASCULAR ULTRASOUND REPORT RODERICK HEATON Accession#: ?? [id number] : ?1940 ??Study Date: ?? 02/17/2024 11:17:13 AM Age: ?83 years ?? Tech: ? AMS Gender: F ?Referring MD: CHARLOTTE SPRINGER Site: [facility] Study performed: ?Duplex US DVT study, [...] Accreditation Commission (IAC/Vascular), www.intersocietal.org/vascular Report generated by [employer]. ??Final ?? Procedure Note Dejan Tolentino MD - 02/17/2024 VASCULAR ULTRASOUND REPORT RODERICK HEATON : 1940 Study Date: 02/17/2024 11:17:13 AM Age: 83 years Tech: AMS Gender: F Referring MD: CHARLOTTE SPRINGER Site: [facility] Study performed: Duplex US DVT study, [...] prior study 12/05/2023, Occluded GSV s/p venous [id number]/15/2024. FINDINGS: The LT GSV is occluded from [...] theIntersocietal Accreditation Commission (IAC/Vascular),www.intersocietal.org/vascular Report generated by [employer]. Final Charlotte Springer MD US * US [...] DENSITY 2 SITES AXIAL (07/02/2019 11:48 AM YARD COUPLER) Anatomical Region Laterality Modality Spine, HIPS, HIPL, HIPR Other Narrative 07/06/2019 11:01 AM YARD COUPLER Please see scanned document for results of this study. 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
--- OUTSIDE RECORDS SUMMARY | 2024-03-23 10:03 | XMS_ITS | Continuity of Care Document ---
Author Organization [facility] Address [address] [address] [place] [address] Phone Care Team Providers Care Floor Worker Transfer [place] Name Role Phone Usha Dickinson Unavailable Unavailable [...] on Encounter [facility], [address], [place], [place], [id number], [place] tel:[phone] No Information [facility]. [facility], [address], [place], [place], [id number] , [place]. [phone] Office/Outpat ient Visit,Est, Mod [facility], [address], [place], [place], [id number], [place] tel:[phone] [facility] Other forms of scoliosis, thoracolumbar regionL2 wedge compression fracture, initial encounter for closed fractureSpondy lolisthesis, lumbar region 0 [facility]. [facility], [address], [place], [place], [id number] , [place]. tel:[phone] Referring Provider: Rakel Arvizu, [facility] [address] [place], [address]. tel:[phone] Office/Outpat ient Visit,Est, Mod [facility], [address], [facility] [place] [place], [id number], [place] tel:[phone] [facility] L2 wedge compression fracture, initial encounter for closed fractureOther forms of scoliosis, thoracolumbar regionSpondylo listhesis, lumbar region 0 Kwame Kerr. [facility], [address], [place], [place], [id number] , . tel:[phone] Referring Provider: Rakel Arvizu [place] [address] [place], [address]. tel:[phone] Office/Outpat ient Visit,[facility], [address], [facility] [place], [id number], [place] tel:[phone] [facility] [place] L2 wedge compression fracture, initial encounter for closed fractureOther forms of scoliosis, thoracolumbar regionSpondylo listhesis, lumbar region 0 Kwame Kerr. [facility], [address], [place], [place], [id number] , [place]. tel:[phone] Referring Provider: Rakel Arvizu [place] [address] [place], [address]. tel:[phone] Family History Family Member Type Diagnosis Age At Onset No Information Payers Payer name Insurance type Covered republican ID Authoralethaa tishannon(s) Medicare MB [id number] [facility] [id number] [facility] [id number] Social History Type Description Quantity Date Captured [...]
--- OUTSIDE RECORDS SUMMARY | 2024-03-23 10:03 | XMS_ITS | Data Portability ---
Author Organization [facility], [facility] Address [address] [place] Lopez [address] Care Team Providers Care Brickmason Apprentice Name Role Phone [facility] Primary Care Provider Assessment No assessment recorded. [...] By Organization Details Last Modified Time 09/14/2021 [id number] Test each progra m for at least 2 weeks, adjusting amplitude as needed. May remain on a program as long as it is effective. Return as needed for reprogramming. [email or web address] Not available 09/14/2021 10:07:26 Patient states t hat Gemtessa samples were very effective, but it is not covered by her insurance. She was also given a rx for Myrbetriq. [email or web address] Not available 09/14/2021 10:08:49 11/12/2021 [id number] Over Active Blad betty (OAB): -Managed with [...] minutes [email or web address] Not available 11/12/2021 11:46:55 04/09/2022 [id number] Test each progra m for at least 2 weeks, adjusting amplitude as needed. May remain on a program as long as it is effective. Return as needed for reprogramming. [email or web address] Not available 04/09/2022 12:34:22 Patient states t hat Gemtesa samples were effective, but the rx was too expensive, so she stopped taking. She would like to try the Gemtesa again, but wonders of it is ok t take every other day, to spread the prescription out, and decrease the expense. I will ask Afsaneh Bui PAC. [email or web address] Not available 04/09/2022 12:37:43 12/06/2022 462100 Test each progra m for at least 2 weeks, adjusting amplitude as needed. May remain on a program as long as it is effective. Return as needed for reprogramming. Not available 12/06/2022 10:55:41 04/28/2023 442013 Over Active Blad betty (OAB): -Managed with [...] color -advantus YELLOW yellow Not Available [facility] [address] [facility] [address], [place], [address], 09/14/2021 10:41:46 09/15/19 22 09/14/2021 UA DIP CS ADVAN TUS appearance -advantus CLEAR clear Not Available [facility] [address] [facility] [address], [place], [address], 09/14/2021 10:41:46 09/15/19 22 09/14/2021 UA DIP CS ADVAN TUS glucose -advantus NEGATI VE mg/dL negati ve Not Available [facility] [address] [facility] [address], [place], [address], 09/14/2021 10:41:46 09/15/19 22 09/14/2021 UA DIP CS ADVAN TUS bilirubin -advantus NEGATI VE negati ve Not Available [facility] [address] [facility] [address], [place], [address], 09/14/2021 10:41:46 09/15/19 22 09/14/2021 UA DIP CS ADVAN TUS ketones -advantus NEGATI VE mg/dL negati ve Not Available [facility] [address] [facility] [address], [place], [address], 09/14/2021 10:41:46 09/15/19 22 09/14/2021 UA DIP CS ADVAN TUS sp. gravity -advantus 1.010 1.010- 1.025 Not Available [facility] [address] [facility] [address], [place], [address], 09/14/2021 10:41:46 09/15/19 22 09/14/2021 UA DIP CS ADVAN TUS pH -advantus 6.0 5.0-8. 0 Not Available [facility] [address] [facility] [address], [place], [address], 09/14/2021 10:41:46 09/15/19 22 09/14/2021 UA DIP CS ADVAN TUS protein -advantus NEGATI VE mg/dL negati ve Not Available [facility] [address] [facility] [address], [place], [address], 09/14/2021 10:41:46 09/15/19 22 09/14/2021 UA DIP CS ADVAN TUS urobilinogen -advantus 0.2 normal Not Available [facility] [address] [facility] [address], [place], [address], 09/14/2021 10:41:46 09/15/19 22 09/14/2021 UA DIP CS ADVAN TUS nitrites -advantus NEGATI VE negati ve Not Available [facility] [address] [place] [address] [address], [place], [address], 09/14/2021 10:41:46 09/15/19 22 09/14/2021 UA DIP CS ADVAN TUS blood -advantus SMALL negati ve abnormal Not Available [facility] [address] [place] [address] [address], [place], [address], 09/14/2021 10:41:46 09/15/19 22 09/14/2021 UA DIP CS ADVAN TUS leukocytes -advantus NEGATI VE negati ve Not Available [facility] [address] [place] [address] [address], [place], [address], 09/14/2021 10:41:46 09/15/19 22 09/14/2021 UA DIP CS ADVAN TUS performed by Bibi Ruiz Not Available [email or web address] [address] [place] [address] [address], [place], [address], 09/14/2021 10:41:46 09/15/19 22 09/14/2021 UA DIP [...] ----- ---- Not Available [facility] [address] [place] [address], [place], [address], 09/14/2021 10:41:46 09/15/19 22 09/14/2021 UA MICRO SCOPI C U-WBC 0 - 2 [hpf] 0 - 2 Not Available [facility] [address] [place] [address], [place], [address], 09/14/2021 10:41:47 09/15/19 22 09/14/2021 UA MICRO SCOPI C U-RBC 0 - 2 [hpf] 0 - 2 Not Available [facility] [address] [place] [address], [place], [address], 09/14/2021 10:41:47 09/15/19 22 09/14/2021 UA MICRO SCOPI C bacteria Small [hpf] negati ve abnormal Not Available [facility] [address] [place] [address], [place], [address], 09/14/2021 10:41:47 09/15/19 22 09/14/2021 UA MICRO SCOPI C squamous epi Small /lpf negati ve,sma ll Not Available [facility] [address] [place] [address], [place], [address], 09/14/2021 10:41:47 Result Notes None recorded. 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 Procedures Surgical History Date Name Laterality Status Provider Name and Address Organization Details Recorded Time 04/28/20 23 Sacral neuromodulation w/o reprogramming completed ELMA Burciaga [address] [facility] [address], [place], [address], [facility] 04/28/2023 11:57:28 04/28/20 23 Bladder Scan completed Radhika Mathis [facility] 04/28/2023 11:36:21 12/07/19 23 Sacral neuromodulation w/o reprogramming completed Brea Bosch [facility] 12/06/2022 11:08:45 04/09/20 22 Sacral Stimulator Reprogramming completed Brea Bosch [facility] 04/09/2022 12:49:34 09/15/19 22 Bladder Scan completed Merry Ocampo [facility] 09/14/2021 10:25:15 09/15/19 22 Sacral neuromodulation w/o reprogramming completed Brea Bosch [facility] 09/14/2021 10:15:12 08/03/19 22 Past Data Reviewed completed Charlotte Smith MD [address] [facility],[address], [place], [address], [facility] 08/03/2021 08:29:52 08/03/19 22 Bladder Scan completed Usha Corado [facility] 08/03/2021 11:50:03 11/27/19 21 Sacral Stimulator Reprogramming completed Brea Bosch [facility] 11/27/2020 12:44:01 09/17/19 20 Implant neuroelectrodes completed Not Available [facility] 12/13/2019 18:11:39 11/29/19 19 Insert bladder catheter completed Not Available [facility] 12/13/2019 18:11:39 11/14/19 15 Colonoscopy completed Lucinda Gordondhruv [facility] 11/11/2020 11:57:08 11/29/19 09 Total hip arthroplasty completed Not Available [facility] 12/13/2019 18:11:39 11/29/19 00 Unlisted procedure breast completed Not Available [facility] 12/13/2019 18:11:39 Appendectomy add-on completed Not Available [facility] 12/13/2019 18:11:39 Imaging Results None recorded. Procedure Notes None recorded. Medical Equipment None Reported. Allergies Allergen ID Allergen Name Allergen Category Reaction Reaction Severity Criticality Documentation Date Start Date Code Code System Note Provider Name and Address Organization Details Recorded Time 566642 Nitroimid azole (substanc e) medicatio n Not available Not available Not available 12/12/2019 38897 5001 SNOMED Not Available [facility] 0 23:50:45 827308 sulindac medicatio n Not available Not available Not available 12/12/2019 35035 RxNorm Not Available [facility] 0 23:50:45 383280 Medicinal product containin g penicilli n and acting as antibacte rial agent (product) medicatio n itching Not available Not available 12/12/2019 57861 05 SNOMED Not Available [facility] 0 23:50:45 644563 atorvasta tin medicatio n Not available Not available Not available 12/12/2019 71931 RxNorm Not Available [facility] 0 23:50:45 446275 tetracycl ine medicatio n Not available Not available Not available 12/12/2019 99101 RxNorm Not Available [facility] 0 23:50:45 984405 alendrona te sodium medicatio n Not available Not available Not available 12/12/2019 13089 2 RxNorm Not Available [facility] 0 23:50:45 471713 amoxicill in medicatio n Not available Not available Not available 12/12/2019 723 RxNorm Not Available [facility] 0 23:50:45 185275 oxybutyni n chloride Not available dizziness Not available Not available 12/12/2019 32039 RxNorm fatig ue Not Available [facility] 0 23:50:45 214090 aspirin medicatio n Not available Not available Not available 12/12/2019 1191 RxNorm Not Available [facility] 0 23:50:46 900685 losartan Not available Not available Not available Not available 12/12/2019 36531 RxNorm Not Available [facility] 0 23:50:46 273079 estrogens , conjugate d (CARE HOME) medicatio n Not available Not available Not available 12/12/2019 4099 RxNorm Not Available [facility] 0 23:50:46 241977 ciproflox acin medicatio n Not available Not available Not available 12/12/2019 2551 RxNorm Not Available [facility] 0 23:50:46 348009 hydrochlo rothiazid e medicatio n Not available Not available Not available 12/12/2019 5487 RxNorm Not Available [facility] 0 23:50:46 275619 metoprolo l Not available Not available Not available Not available 12/12/2019 6918 RxNorm Not Available [facility] 0 23:50:46 958707 naproxen medicatio n Not available Not available Not available 12/12/2019 7258 RxNorm Not Available [facility] 0 23:50:46 460283 clindamyc in Not available Not available Not available Not available 12/12/2019 2582 RxNorm Not Available [facility] 0 23:50:46 505158 Substance with sulfonami de structure and antibacte rial mechanism of action (substanc e) medicatio n Not available Not available Not available 11/11/2020 40281 8003 SNOMED Lucinda Nuñez null, [facility] 1 11:56:30 138306 Myrbetriq medicatio n swelling Not available Not available 10/05/2021 34163 92 RxNorm [facility] 13:18:14 533555 Sambucus Elderberr y Immune medicatio n Not available Not available Not available 04/09/2022 Brea Bosch null, [facility] 2 12:14:11 Medications Name [...] Updated DateTime 04/09/2022 154.94 cm 27.8 kg/m2 59904.08 zeus Bosch [facility] 04/09/2022 12:13:52 Date Recorded Body height Body mass index (BMI) Body weight Provider Name and Address Organization Details Last Updated DateTime 12/06/2022 154.94 cm 25.5 kg/m2 48695.97 zeus Bosch [facility] 12/06/2022 10:41:56 Date Recorded Body height Body mass index (BMI) Body weight Provider Name and Address Organization Details Last Updated DateTime 04/28/2023 154.94 cm 25.5 kg/m2 90683.97 zeus Mathis [facility] 04/28/2023 11:25:35 Date Recorded Body height Body mass index (BMI) Body weight Provider Name and Address Organization Details Last Updated DateTime 09/14/2021 158.75 cm 26.5 kg/m2 02047.08 zeus Bosch [facility] 09/14/2021 09:54:39 Date Recorded Body height Body mass index (BMI) Body weight Provider Name and Address Organization Details Last Updated DateTime 09/14/2021 158.75 cm 26.5 kg/m2 83262.08 zeus Ocampo [facility] 09/14/2021 10:08:57 Date Recorded Body height Body mass index (BMI) Body weight Provider Name and Address Organization Details Last Updated DateTime 11/12/2021 154.94 cm 27.8 kg/m2 99943.08 zeus Stilesmelba [facility] 11/12/2021 11:32:20 Social History Question Answer Notes LastModified by Organizat ion Details LastModified Time Tobacco Smoking Status Never Smoker Not Available [facility] 12/13/2019 02:00:45 What Is Your Level Of Alcohol Consumption? None Information not available 09/14/2021 What Is Your Level Of Caffeine Consumption? Heavy Information not available 09/14/2021 Are You Currently Employed? No Information not available 09/14/2021 Race White [email or web address] Information n ot available 12/13/2019 Ethnicity Not /Lat vane Information not available 09/14/2021 Preferred Language Swazi Information not available 09/14/2021 Recreational Drug Use No Information not available 09/14/2021 Could You Be ? No Information not available 09/14/2021 Marital Status [email or web address] Informati on not available 12/13/2019 What Was The Date Of Your Most Recent Tobacco Screening? 12/06/2022 [email or web address] Information not available 12/06/2022 What Is Your [...] conjugate PCV 13 07/04/2017 completed STEPHEN Germain [facility] 04/28/2023 11:25:40 Past Encounters Encounter ID Performer Location Encounter Start Date Encounter Closed Date Diagnosis/Indication Diagnosis SNOMED-CT Code Diagnosis ICD10 Code [id number] Charlotte Smith MD [address] [address] 04/15/2020 10:02:52 04/25/2020 12:54:57 Overactive urinary bladder 435495584 N32.81 Urge incon tinence of urine 31115947 N39.41 [id number] Charlotte Smith MD [address] [address] 05/13/2020 10:14:48 05/13/2020 14:22:18 Overactive urinary bladder 659069697 N32.81 Urge incon tinence of urine 39221332 N39.41 History of urinary tract infection 6829403336 107 Z87.440 [id number] Charlotte Smith MD [address] [address] 11/11/2020 11:46:55 11/11/2020 13:40:18 Overactive urinary bladder 918601460 N32.81 Urge incon tinence of urine 67065668 N39.41 [id number] Brea Danitza [facility] [address] [address] 11/26/2020 10:15:12 12/02/2020 15:37:48 Overactive urinary bladder 113398083 N32.81 Nocturia 842622916 R35.1 [id number] MD [facility] [address] [place] [address],S[address] e [address] [place] [id number] 08/03/2021 11:31:50 08/03/2021 12:09:22 Overactive urinary bladder 300300318 N32.81 Urge incon tinence of urine 77316865 N39.41 Nocturia 584165078 R35.1 [id number] ELMA [facility] [address] [place] [address],[facility] e [address] [place] [phone] 09/14/2021 10:06:36 09/14/2021 14:16:12 Overactive urinary bladder 425107535 N32.81 Urge incon tinence of urine 34824693 N39.41 Nocturia 875296797 R35.1 [id number] Brea Bosch [facility] [address] [place] [address],it e [address] [place] [id number] 09/14/2021 09:30:06 09/14/2021 14:31:59 Overactive urinary bladder 815846765 N32.81 [id number] ELMA [facility] [address] [place] [address] [place] [phone] 11/12/2021 11:29:59 11/12/2021 12:37:25 Overactive urinary bladder 062593152 N32.81 Urge incon tinence of urine 05595322 N39.41 Nocturia 221217615 R35.1 [id number] Brea Bosch [facility] [address] [place] [address] [place] [id number] 04/09/2022 11:43:46 04/09/2022 13:38:20 Overactive urinary bladder 380244920 N32.81 [id number] Brea Bosch [facility] [address] [place] [address] [place] [id number] 12/06/2022 10:28:13 12/06/2022 11:24:29 Overactive urinary bladder 544770838 N32.81 [id number] ELMA [facility] [address] [place] [address] [place] [phone] 04/28/2023 11:22:38 04/28/2023 12:04:03 Overactive urinary bladder 286966949 N32.81 Urge incon tinence of urine 08616389 N39.41 Nocturia 980684237 R35.1 Health Concerns Section Related Observation LastModified by Organization Detai ls LastModified Time None Recorded Concern Status LastModified by Organization Details LastModified Time None Recorded Advance Directives Directive None Recorded Payers Encounter Date Sequence Insurance Name Policy Number Policy Betancourt Covered Member ID Betancourt Member ID Guarantor Name 09/14/2021 1 [place]: [facility] Patsy A Wood [id number] Patsy A Wood 09/14/2021 2 [facility] [id number] Patsy A Wood [id number] Patsy A Wood 11/12/2021 1 [place] [facility] Patsy A Wood [id number] Patsy A Wood 11/12/2021 2 [place] [id number] Patsy A Wood [id number] Patsy A Wood 04/09/2022 1 [place] [facility] Patsy A Wood [id number] Patsy A Wood 04/09/2022 2 [place] [id number] Patsy A Wood [id number] Patsy A Wood 12/06/2022 1 [place] [facility] Patsy A Wood [id number] Patsy A Wood 12/06/2022 2 [place] [id number] Patsy A Wood [id number] Patsy A Wood 04/28/2023 1 [place] [facility] Patsy A Wood [id number] Patsy A Wood 04/28/2023 2 [place] [id number] Patsy A Wood [id number] Patsy A Wood Notes Date Note Type [...] to be almost every hour. ELMA Burciaga [address] [place] [address],[address], [place], [address], [facility] 09/14/2021 10:49:41 11/12/2021 text/html HPI [...] with sjorgrens. This visit was conducted using [employer] technology. Prior to conducting our health visit, the patient and I discussed the risks, benefits and alternatives to phone visits. The patient elected to proceed with the phone visit. ELMA Burciaga [address] [place] [address],[facility] [address], [place], [address] 11/12/2021 11:50:24 12/06/2022 text/html HPI Notes: [...] changed Rate chaanged Resolution changed Brea felix [facility] 12/06/2022 11:08:58 04/28/2023 text/html [...] to be almost every hour. ELMA Burciaga [address] [facility],[address], [place], [address], [facility] 04/28/2023 11:58:40 OBGyn Episode No OBEpisode recorded.
--- OUTSIDE RECORDS SUMMARY | 2024-03-23 10:03 | XMS_ITS | Continuity of Care Document ---
Author Organization [facility] Address [address] [place] [address] Phone Care Team Providers Care Compound Specialist Name Role Phone Helder Medina MD Unavailable [...] Antibodies Dna Antibody, Single Strand Dna Antibody, [place] Nuclear Antigen Antibodies Rheumatoid Factor, IGM Rheumatoid Factor, IGG, IGA Advance Directives Directive Yes / No Effective Date File Name No Information Encounters Encounter Description Practice Location Reason(s) For Visit Diagnoses Date Provider Providers Copied on Encounter [facility], [address], [place], [address], [place] tel:[phone] [facility], No Information Apr-- 4 Adam Pendleton. [address], [address], [place], [address], [place]. tel:[phone] Referring Provider: Helder Jain, [address], [place], [address]. tel:[phone] Office/Outpa tient Visit, Est [facility], [address], [place], [address], [place] tel:[phone] [facility], Sjogren syndrome w/ inflammatory arthritisPain in left foot Apr- 0 4 Lebedoff Helder. [address], [address], [place], [address], [place]. tel:[phone] Referring Provider: Helder Jain, [address], [place], [address]. tel:[phone] Office/Outpa tient Visit, Est [facility], [address], [place], [address], [place] tel:[phone] [facility], Sjogren syndrome w/ inflammatory arthritisPrim mauri osteoarthriti s, right hand 3 Lebedoff Helder. [address], [address], [place], [address], [place]. tel:[phone] Referring Provider: Helder Jain, [address], [place], [address]. tel:[phone] Office/Outpa tient Visit, Est [facility], [address], [place], [address], [place] tel:[phone] [facility], Sicca syndrome, unspecifiedWe akness November- 0 3 Lebedoff Helder. [address], [address], [place], [address], [place]. tel:[phone] Referring Provider: Helder Jain, [address], [place], [address]. tel:[phone] Office/Outpa tient Visit, Est [facility], [address], [place], [address], [place] tel:[phone] [facility], Sicca syndrome, unspecifiedPa in in left shoulder Apr- 2 Adam Pendleton. [address], [place], [address], [place]. tel:[phone] Referring Provider: Helder Jain, [address], [place], [address]. tel:[phone] Office/Outpa tient Visit, Est [facility], [address], [place], [address], [place] tel:[phone] [facility], Sicca syndrome, unspecifiedDy spnea Oct- 2 Adam Pendleton. [address], [address], [place], [address], [place]. tel:[phone] Referring Provider: Helder Jain, [address], [place], [address]. tel:[phone] Office/Outpa tient Visit, Est [facility], [address], [place], [address], [place] tel:[phone] [facility], Sicca syndrome, unspecifiedOt her tank terminal gauger (current) drug therapyPrimar y OA of right handDyspnea Apr- 1 Adam Pendleton. [address], [place], [address], [place]. tel:[phone] Referring Provider: Helder Jain, [address], [place], [address]. tel:[phone] Office/Outpa tient Visit, New [facility], [address], [place], [address], [place] tel:[phone] [facility], Sicca syndrome, unspecifiedPa in in rt ankleOther chcf (current) drug therapy 1 Adam Pendleton. [address], [address], [place], [address], [place]. tel:[phone] Referring Provider: Helder Medina G, [address], [address]. tel:[phone] [facility], [address], [place], [address], [place] tel:[phone] [facility] No Information 1 Mo Sullivan. [facility] [address] [place] [address] [address], [place], [address], [place]. tel:[phone] Family History Family Member Type Diagnosis Age At Onset No Information Immunizations Vaccine Date Status Comments COVID-19 Moderna administered Source: Ot er Provider COVID-19 Pfizer administered Note: 1 ; Source: Other Provider Payers Payer name Insurance type Covered constitution party ID Authoriza tion(s) [employer] Adv [id number] Social History Type Description Quantity Date Captured [...] Order Fo ot X-ray; Complete (3+ views) (71426), Sent on: Sent History Of Present Illness [...]
== END 2024-03-23 10:00 | disposition home or self-care (01) ==
LOC: WOUND 09:59
PROVIDERS: PCP Physician Assistant Medical; Visit Provider Nurse Practitioner Family
DX: I87.2 Venous insufficiency (chronic) (peripheral) (principal); I89.0 Lymphedema, not elsewhere classified; I73.9 Peripheral vascular disease, unspecified; L97.322 Non-pressure chronic ulcer of left ankle with fat layer exposed
CPT/HCPCS: 15271; Q4101

== ENCOUNTER 2024-03-30 10:00 | Outpatient (CLI) | payer OTHER, SELFPAY ==
--- OUTSIDE RECORDS SUMMARY | 2024-03-30 10:04 | XMS_ITS | Data Portability ---
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 Primary Care Provider Assessment No assessment [...] By Organization Details Last Modified Time 09/14/2021 [id number] Test each progra m for at least 2 weeks, adjusting amplitude as needed. May remain on a program as long as it is effective. Return as needed for reprogramming. Not available 09/14/2021 10:07:26 Patient states t hat Gemtessa samples were very effective, but it is not covered by her insurance. She was also given a rx for Myrbetriq. [email or web address] Not available 09/14/2021 10:08:49 11/12/2021 [id number] Over Active Blad betty (OAB): -Managed with [...] minutes [email or web address] Not available 11/12/2021 11:46:55 04/09/2022 [id number] Test each progra m for at least 2 weeks, adjusting amplitude as needed. May remain on a program as long as it is effective. Return as needed for reprogramming. [email or web address] Not available 04/09/2022 12:34:22 Patient states t hat Gemtesa samples were effective, but the rx was too expensive, so she stopped taking. She would like to try the Gemtesa again, but wonders of it is ok t take every other day, to spread the prescription out, and decrease the expense. I will ask Afsaneh Bui PAC. [email or web address] Not available 04/09/2022 12:37:43 12/06/2022 864060 Test each progra m for at least 2 weeks, adjusting amplitude as needed. May remain on a program as long as it is effective. Return as needed for reprogramming. [email or web address] Not available 12/06/2022 10:55:41 04/28/2023 354334 Over Active Blad betty (OAB): -Managed with [...] color -advantus YELLOW yellow Not Available [facility] [address], [place], [address], 09/14/2021 10:41:46 09/15/19 22 09/14/2021 UA DIP CS ADVAN TUS appearance -advantus CLEAR clear Not Available [facility] [address], [place], [address], 09/14/2021 10:41:46 09/15/19 22 09/14/2021 UA DIP CS ADVAN TUS glucose -advantus NEGATI VE mg/dL negati ve Not Available [facility] [address], [place], [address], 09/14/2021 10:41:46 09/15/19 22 09/14/2021 UA DIP CS ADVAN TUS bilirubin -advantus NEGATI VE negati ve Not Available [facility] [address] [facility], [place], [address], 09/14/2021 10:41:46 09/15/19 22 09/14/2021 UA DIP CS ADVAN TUS ketones -advantus NEGATI VE mg/dL negati ve Not Available [facility] [address], [place], [address], 09/14/2021 10:41:46 09/15/19 22 09/14/2021 UA DIP CS ADVAN TUS sp. gravity -advantus 1.010 1.010- 1.025 Not Available [facility] [address], [place], [address], 09/14/2021 10:41:46 09/15/19 22 09/14/2021 UA DIP CS ADVAN TUS pH -advantus 6.0 5.0-8. 0 Not Available [facility] [address] [facility], [place], [address], 09/14/2021 10:41:46 09/15/19 22 09/14/2021 UA DIP CS ADVAN TUS protein -advantus NEGATI VE mg/dL negati ve Not Available [facility] [address], [place], [address], 09/14/2021 10:41:46 09/15/19 22 09/14/2021 UA DIP CS ADVAN TUS urobilinogen -advantus 0.2 normal Not Available [facility] [address], [place], [address], 09/14/2021 10:41:46 09/15/19 22 09/14/2021 UA DIP CS ADVAN TUS nitrites -advantus NEGATI VE negati ve Not Available [facility] [address] [place] [address] [address], [place], [address], 09/14/2021 10:41:46 09/15/19 22 09/14/2021 UA DIP CS ADVAN TUS blood -advantus SMALL negati ve abnormal Not Available [facility] [address] [place] [address] [address], [place], [address], 09/14/2021 10:41:46 09/15/19 22 09/14/2021 UA DIP CS ADVAN TUS leukocytes -advantus NEGATI VE negati ve Not Available [facility] [address] [place] [address] [address], [place], [address], 09/14/2021 10:41:46 09/15/19 22 09/14/2021 UA DIP CS ADVAN TUS performed by Bibi Ruiz Not Available [email or web address] [address] [place] [address] [address], [place], [address], 09/14/2021 10:41:46 09/15/19 22 09/14/2021 UA DIP [...] ----- ----- ----- ----- ---- Not Available [facility] [address] [place] [address], [place], [address], 09/14/2021 10:41:46 09/15/19 22 09/14/2021 UA MICRO SCOPI C U-WBC 0 - 2 [hpf] 0 - 2 Not Available [facility] [address] [place] [address], [place], [address], 09/14/2021 10:41:47 09/15/19 22 09/14/2021 UA MICRO SCOPI C U-RBC 0 - 2 [hpf] 0 - 2 Not Available [facility] [address] [place] [address], [place], [address], 09/14/2021 10:41:47 09/15/19 22 09/14/2021 UA MICRO SCOPI C bacteria Small [hpf] negati ve abnormal Not Available [facility] [address] [place] [address], [place], [address], 09/14/2021 10:41:47 09/15/19 22 09/14/2021 UA MICRO SCOPI C squamous epi Small /lpf negati ve,sma ll Not Available [facility] [address] [place] [address], [place], [address], 09/14/2021 10:41:47 Result Notes None recorded. 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 Procedures Surgical History Date Name Laterality Status Provider Name and Address Organization Details Recorded Time 04/28/20 23 Sacral neuromodulation w/o reprogramming completed ELMA Burcaiga [address],[facility] [address], [place], [address], [facility] 04/28/2023 11:57:28 04/28/20 23 Bladder Scan completed Radhika Mathis [facility] 04/28/2023 11:36:21 12/07/19 23 Sacral neuromodulation w/o reprogramming completed Brea Bosch [facility] 12/06/2022 11:08:45 04/09/20 22 Sacral Stimulator Reprogramming completed Brea Bosch [facility] 04/09/2022 12:49:34 09/15/19 22 Bladder Scan completed Merry Ocampo [facility] 09/14/2021 10:25:15 09/15/19 22 Sacral neuromodulation w/o reprogramming completed Brea Bosch [facility] 09/14/2021 10:15:12 08/03/19 22 Past Data Reviewed completed Charlotte Smith MD [address], [place], [address], [facility] 08/03/2021 08:29:52 08/03/19 22 Bladder Scan completed Usha Corado [facility] 08/03/2021 11:50:03 11/27/19 21 Sacral Stimulator Reprogramming completed Brea Bosch [facility] 11/27/2020 12:44:01 09/17/19 20 Implant neuroelectrodes completed Not Available [facility] 12/13/2019 18:11:39 11/29/19 19 Insert bladder catheter completed Not Available [facility] 12/13/2019 18:11:39 11/14/19 15 Colonoscopy completed Lucinda Gordnodhruv [facility] 11/11/2020 11:57:08 11/29/19 09 Total hip arthroplasty completed Not Available [facility] 12/13/2019 18:11:39 11/29/19 00 Unlisted procedure breast completed Not Available [facility] 12/13/2019 18:11:39 Appendectomy add-on completed Not Available [facility] 12/13/2019 18:11:39 Imaging Results None recorded. Procedure Notes None recorded. Medical Equipment None Reported. Allergies Allergen ID Allergen Name Allergen Category Reaction Reaction Severity Criticality Documentation Date Start Date Code Code System Note Provider Name and Address Organization Details Recorded Time 141763 Nitroimid azole (substanc e) medicatio n Not available Not available Not available 12/12/2019 41609 5001 SNOMED Not Available [facility] 0 23:50:45 961758 sulindac medicatio n Not available Not available Not available 12/12/2019 99507 RxNorm Not Available [facility] 0 23:50:45 741974 Medicinal product containin g penicilli n and acting as antibacte rial agent (product) medicatio n itching Not available Not available 12/12/2019 23458 05 SNOMED Not Available [facility] 0 23:50:45 136083 atorvasta tin medicatio n Not available Not available Not available 12/12/2019 09189 RxNorm Not Available [facility] 0 23:50:45 770039 tetracycl ine medicatio n Not available Not available Not available 12/12/2019 80958 RxNorm Not Available [facility] 0 23:50:45 569952 alendrona te sodium medicatio n Not available Not available Not available 12/12/2019 99990 2 RxNorm Not Available [facility] 0 23:50:45 086478 amoxicill in medicatio n Not available Not available Not available 12/12/2019 723 RxNorm Not Available [facility] 0 23:50:45 269510 oxybutyni n chloride Not available dizziness Not available Not available 12/12/2019 30566 RxNorm fatig ue Not Available [facility] 0 23:50:45 051958 aspirin medicatio n Not available Not available Not available 12/12/2019 1191 RxNorm Not Available [facility] 0 23:50:46 295272 losartan Not available Not available Not available Not available 12/12/2019 64039 RxNorm Not Available [facility] 0 23:50:46 696755 estrogens , conjugate d (NURSING HOME) medicatio n Not available Not available Not available 12/12/2019 4099 RxNorm Not Available [facility] 0 23:50:46 038517 ciproflox acin medicatio n Not available Not available Not available 12/12/2019 2551 RxNorm Not Available [facility] 0 23:50:46 440720 hydrochlo rothiazid e medicatio n Not available Not available Not available 12/12/2019 5487 RxNorm Not Available [facility] 0 23:50:46 244851 metoprolo l Not available Not available Not available Not available 12/12/2019 6918 RxNorm Not Available [facility] 0 23:50:46 415582 naproxen medicatio n Not available Not available Not available 12/12/2019 7258 RxNorm Not Available [facility] 0 23:50:46 151912 clindamyc in Not available Not available Not available Not available 12/12/2019 2582 RxNorm Not Available [facility] 0 23:50:46 346685 Substance with sulfonami de structure and antibacte rial mechanism of action (substanc e) medicatio n Not available Not available Not available 11/11/2020 69690 8003 SNOMED Lucinda Nuñez null, [facility] 1 11:56:30 371675 Myrbetriq medicatio n swelling Not available Not available 10/05/2021 86390 92 RxNorm [facility] 13:18:14 640599 Sambucus Elderberr y Immune medicatio n Not available Not available Not available 04/09/2022 Brea Bosch null, [facility] 2 12:14:11 Medications Name Sig [...] Updated DateTime 04/09/2022 154.94 cm 27.8 kg/m2 67705.08 zeus Bosch [facility] 04/09/2022 12:13:52 Date Recorded Body height Body mass index (BMI) Body weight Provider Name and Address Organization Details Last Updated DateTime 12/06/2022 154.94 cm 25.5 kg/m2 09897.97 zeus Bosch [facility] 12/06/2022 10:41:56 Date Recorded Body height Body mass index (BMI) Body weight Provider Name and Address Organization Details Last Updated DateTime 04/28/2023 154.94 cm 25.5 kg/m2 73106.97 zeus Mathis [facility] 04/28/2023 11:25:35 Date Recorded Body height Body mass index (BMI) Body weight Provider Name and Address Organization Details Last Updated DateTime 09/14/2021 158.75 cm 26.5 kg/m2 66792.08 zeus Bosch [facility] 09/14/2021 09:54:39 Date Recorded Body height Body mass index (BMI) Body weight Provider Name and Address Organization Details Last Updated DateTime 09/14/2021 158.75 cm 26.5 kg/m2 41522.08 zeus Ocampo [facility] 09/14/2021 10:08:57 Date Recorded Body height Body mass index (BMI) Body weight Provider Name and Address Organization Details Last Updated DateTime 11/12/2021 154.94 cm 27.8 kg/m2 50344.08 zeus Stilesmelba [facility] 11/12/2021 11:32:20 Social History Question Answer Notes LastModified by Organizat ion Details LastModified Time Tobacco Smoking Status Never Smoker Not Available [facility] 12/13/2019 02:00:45 What Is Your Level Of Alcohol Consumption? None Information not available 09/14/2021 What Is Your Level Of Caffeine Consumption? Heavy Information not available 09/14/2021 Are You Currently Employed? No Information not available 09/14/2021 Race White [email or web address] Information n ot available 12/13/2019 Ethnicity Not /Lat vane Information not available 09/14/2021 Preferred Language Bulgarian Information not available 09/14/2021 Recreational Drug Use No Information not available 09/14/2021 Could You Be ? No Information not available 09/14/2021 Marital Status [email or web address] Informati on not available 12/13/2019 What Was The Date Of Your Most Recent Tobacco Screening? 12/06/2022 [email or web address] Information not available 12/06/2022 What Is Your [...] conjugate PCV 13 07/04/2017 completed STEPHEN Germain [facility] 04/28/2023 11:25:40 Past Encounters Encounter ID Performer Location Encounter Start Date Encounter Closed Date Diagnosis/Indication Diagnosis SNOMED-CT Code Diagnosis ICD10 Code [id number] Charlotte Smith MD [address] [address] 04/15/2020 10:02:52 04/25/2020 12:54:57 Overactive urinary bladder 652021900 N32.81 Urge incon tinence of urine 33135548 N39.41 [id number] Charlotte Smith MD [address] [address] 05/13/2020 10:14:48 05/13/2020 14:22:18 Overactive urinary bladder 165307258 N32.81 Urge incon tinence of urine 68669512 N39.41 History of urinary tract infection 6161464384 107 Z87.440 [id number] Charlotte Smith MD [address] [address] 11/11/2020 11:46:55 11/11/2020 13:40:18 Overactive urinary bladder 875317900 N32.81 Urge incon tinence of urine 52222002 N39.41 [id number] Brea [facility]itza [facility] [address] [address] 11/26/2020 10:15:12 12/02/2020 15:37:48 Overactive urinary bladder 399062454 N32.81 Nocturia 409187752 R35.1 [id number] MD [facility] [address] [place] [address],Suit [place] [address] [place] [phone] 08/03/2021 11:31:50 08/03/2021 12:09:22 Overactive urinary bladder 370253175 N32.81 Urge incon tinence of urine 57500290 N39.41 Nocturia 765141899 R35.1 [id number] ELMA Burciag[facility] [address] [place] [address],[facility] e [address] [place] [phone] 09/14/2021 10:06:36 09/14/2021 14:16:12 Overactive urinary bladder 275537025 N32.81 Urge incon tinence of urine 53203573 N39.41 Nocturia 856807017 R35.1 [id number] Brea Bosch [facility] [address] [place] [address],it e [address] [place] [phone] 09/14/2021 09:30:06 09/14/2021 14:31:59 Overactive urinary bladder 658837500 N32.81 [id number] ELMA Burciag[facility] [address] [place] [address] [place] [phone] 11/12/2021 11:29:59 11/12/2021 12:37:25 Overactive urinary bladder 741153169 N32.81 Urge incon tinence of urine 35398959 N39.41 Nocturia 881393557 R35.1 [id number] Brea Bosch [facility] [address] [place] [address] [place] [address] 04/09/2022 11:43:46 04/09/2022 13:38:20 Overactive urinary bladder 336172140 N32.81 [id number] Brea Bosch [facility] [address] [place] [address] [place] [address] 12/06/2022 10:28:13 12/06/2022 11:24:29 Overactive urinary bladder 727200043 N32.81 [id number] ELMA Burciag[facility] [address] [place] [address] [place] [address] 04/28/2023 11:22:38 04/28/2023 12:04:03 Overactive urinary bladder 662611346 N32.81 Urge incon tinence of urine 14565807 N39.41 Nocturia 088048195 R35.1 Health Concerns Section Related Observation LastModified by Organization Detai ls LastModified Time None Recorded Concern Status LastModified by Organization Details LastModified Time None Recorded Advance Directives Directive None Recorded Payers Encounter Date Sequence Insurance Name Policy Number Policy Betancourt Covered Member ID Betancourt Member ID Guarantor Name 09/14/2021 1 [place] [employer] [facility] Patsy A Wood [id number] Patsy A Wood 09/14/2021 2 [facility] [id number] Patsy A Wood [id number] Patsy A Wood 11/12/2021 1 [place] [employer] [facility] Patsy A Wood [id number] Patsy A Wood 11/12/2021 2 [place] [id number] Patsy A Wood [id number] Patsy A Wood 04/09/2022 1 [place] [employer] [facility] Patsy A Wood [id number] Patsy A Wood 04/09/2022 2 [place] [id number] Patsy A Wood [id number] Patsy A Wood 12/06/2022 1 [place] [employer] [facility] Patsy A Wood [id number] Patsy A Wood 12/06/2022 2 [place] [id number] Patsy A Wood [id number] Patsy A Wood 04/28/2023 1 [place] [employer] [facility] Patsy A Wood [id number] Patsy A Wood 04/28/2023 2 [place] [id number] Patsy A Wood [id number] Patsy A Wood Notes Date Note Type [...] to be almost every hour. ELMA Burciaga [address] [place] [address],[address], [place], [address], [facility] 09/14/2021 10:49:41 11/12/2021 text/html [...] with sjorgrens. This visit was conducted using [employer] technology. Prior to conducting our health visit, the patient and I discussed the risks, benefits and alternatives to phone visits. The patient elected to proceed with the phone visit. ELMA Burciaga [address] [place] [address],[facility] [address], [place], [address] 11/12/2021 11:50:24 12/06/2022 text/html HPI [...] changed Rate chaanged Resolution changed Brea felix [facility] 12/06/2022 11:08:58 04/28/2023 text/html HPI [...] be almost every hour. ELMA Burciaga [address], [place], [address], [facility] 04/28/2023 11:58:40 OBGyn Episode No OBEpisode recorded.
--- OUTSIDE RECORDS SUMMARY | 2024-03-30 10:04 | XMS_ITS | Clinical Summary ---
Author Organization [facility] Address [place], [place] [address] Care Team Providers Care Director Of Volunteer Services Name Role Phone Kd Restrepo MD Unavailable [phone] Jose Napier PANettieC Primary Care Provider [phone] Charlotte Smith MD Unavailable [phone] Charlotte Springer MD Unavailable [phone] Allergies Active Allergy Reactions Criticality Noted Date Comments Amoxicillin 01/19/2007 Aspirin Rash,Itching 01/20/2006 Atorvastatin Myalgia 12/27/2014 Blood-Group Specific Substance Other - Describe In Comment Field High 09/01/2016 Patient has Anti-D. Blood product orders may be delayed. Draw one red top and two purple top tubes for all Type and Screen/Type and Crossmatch orders. V-Yhxc-Yxoexsugp-Propol-Eld erb *Unknown 02/28/2024 Ciprofloxacin Rash 05/31/2012 Clindamycin [...] SOB (shortness of breath) 01/25/2020 Fatigue 01/25/2020 assisted current use of systemic steroids 09/27 Prediabetes [...] Date Anticoagulation monitoring, INR range 2-3 [Z79.01]; [place] [facility] 2.5-3.0 12/06/2016 1 Pessary maintenance 02/25/2016 09/28/19 20 Anticoagulation monitoring, goal range 2.0-2.6 09/19/2013 01/09/2018 Abnormal stress test 11/17/2010 011 Routine general medical exam ination at a health care facility 07/12/2009 09/28/2019 Overview (12/06/2012): Normal CT angiogram 11/2010 Hip pain 05/06/2008 07/09/2009 Onychomycosis 05/06/2008 08/27/2008 HX OF VENOUS THROMBOSIS AND EMBOLISM 11/09/2006 12/06/2012 Bilateral pulmonary embolism 10/11/2006 11/18/2017 AFTERCARE, LONG-TERM USE, DC DICATIONS NEC-PLAQUENIL 10/22/2003 Encounters Date Type Department Care Team Description 03/21/2024 Telephone [facility] [address] [place] [address] Charltote Springer MD status of left wound ankle 03/01/2024 3:30 PM CDT Office [place] [facility] [address] [place] [address] Olvin Haji MD Consult (CT, US & MRI - spot on pancreas) 03/01/2024 Travel 02/28/2024 10:00 AM CDT Office Visit [facility] [address] [place] [address] Tomas Page, OD Eye Exam (CEE) 02/28/2024 Travel 02/20/2024 Telephone [facility] [address] [place] [address] Charlotte Springer MD Results 02/17/2024 10:56 AM CDT - 02/17/2024 11:59 PM CDT Hospital Encounter [facility] [address] [place] [address] Charlotte Springer MD Venous stasis ulcer of ankle, left (HC) 02/16/2024 8:00 AM CDT Procedure Only [facility] [address] [place] [address] Charlotte Springer MD 02/16/2024 6:57 AM CDT - 02/16/2024 11:59 PM CDT Hospital Encounter [facility] [address] [place] [address] Charlotte Springer MD Venous stasis ulcer of ankle, left (HC) 02/16/2024 Travel 02/10/2024 Telephone [facility] [address] [place] [address] Charlotte Springer MD Pre Procedure Instructions 01/19/2024 Orders Only [facility] Scanner 1 scan: (1-Ord) [facility], CLINICAL LABORATORY REPORT, 01/19/2024 01/19/2024 Orders Only [facility] Scanner 1 scan: (1-Ord) [facility], CLINIC LABORATORY REPORT, 01/19/2024 01/18/2024 Orders Only [facility] Scanner 1 scan: (1-Ord) [facility], CLINICAL LABORATORY REPORT, 01/18/2024 01/18/2024 Orders Only [facility] Scanner 1 scan: (1-Ord) [facility], CLINICAL LABORATORY REPORT, 01/18/2024 01/18/2024 Orders Only [facility] Scanner 1 scan: (1-Ord) [facility], CLINICAL LABORATORY REPORT, 01/18/2024 01/18/2024 Orders Only [facility] Scanner 1 scan: (1-Ord) [facility], CT ABDOMEN PELVIS W CON, 01/18/2024 01/18/2024 Orders Only [facility] Scanner 1 scan: (1-Ord) [facility], [place] ABDOMEN LIMITED, 01/18/2024 01/06/2024 Telephone [facility] [address] [place] [address] Charlotte Springer MD Questions (Concern about wound) 01/03/2024 Orders Only [facility] Scanner 1 scan: (1-Ord) [facility], CLINICAL LABORATORY REPORT, 01/03/2024 12/30/2023 Transcribe Orders [facility] [address] [place] [address] Charlotte Springer MD from Last 3 Months Immunizations Name Administration Dates Next Due AMB INFLUENZA IIV3 (AGE 65+ YRS) PF (Flu Clinic Only) 03/23/2017 AMB Influenza, IIV3 (Age >=3 years) Preserve Free (Flu Clinic Only) 04/08/2009 AMB Influenza, IIV3 (Age >=3 years)(Flu Clinic Only) 04/06/2013,04/16/2011,04/24/2008 COVID-19 vaccine ([employer] NTXooker 30mcg/0.3mL) PF, MDV 09/02/2020,08/12/2020 Influenza A (H1N1), [...] st Contact Info) Description 05/07/2024 8:30 AM 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 Office Visit [facility] [address] [place] [address] Charlotte Springer MD [address] [place] [address] 08/30/2024 10:00 AM 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 Office [place] [facility] [address] [place], [place] [phone] [place] [address] [address] [place], [place] [id number] Health Maintenance Due Date Last Done Comments RSV vaccine for adults or (1 - 1-dose 75+ series) 2015 Depression screening for age 12+ 06/18/2021 06/18/2020, [...] 01/13/2016, 12/18/2010 Medical Devices Implanted Type Area Industrial Spraypainter Device Identifier Shelf Expiration Date Model / Serial / Lot Lead Kit 4.32mm Spacing 28cm Length Interstim - [id number] Implanted:Qty: 1 on 04/01/2020 by Charlotte Smith MD at [facility] N/A: Sacrum Med[employer]onic Pain Therapy 09/30/2021 [id number] / / [id number] Stimulator 7.7mm 14cc Interstim Ii - [id number] Implanted:Qty: 1 on 04/01/2020 by Charlotte Smith MD at [facility] N/A: Sacrum Medtr[employer] Pain Therapy 03/31/2021 [id number] / [id number] / Description:PIN [id number] Procedures Procedure Name Priority Date/Time Associated Diagnosis [...] 2 SITES AXIAL Routine 07/02/2019 11:48 AM 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 Osteopenia of multiple sites from Last 3 Months or Most Recently Relevant to Health Maintenance Results * US VENOUS LOWER EXTREMITY LEFT (02/17/2024 11:46 AM CDT) Anatomical Region Laterality Modality LEGS, LEG L, Abdomen Ultrasound 02/17/2024 11:1 7 AM CDT Narrative 02/17/2024 5:40 PM CDT VASCULAR ULTRASOUND REPORT RODERICK HEATON Accession#: ?? [id number] : ?1940 ??Study Date: ?? 02/17/2024 11:17:13 AM Age: ?83 years ?? Tech: ? AMS Gender: F ?Referring MD: CHARLOTTE SPRINGER Site: [facility] Study performed: ?Duplex US DVT study, [...] Accreditation Commission (IAC/Vascular), www.intersocietal.org/vascular Report generated by [employer]. ??Final ?? Procedure Note Dejan Tolentino MD - 02/17/2024 VASCULAR ULTRASOUND REPORT RODERICK HEATON : 1940 Study Date: 02/17/2024 11:17:13 AM Age: 83 years Tech: AMS Gender: F Referring MD: CHARLOTTE SPRINGER Site: [facility] Study performed: Duplex US DVT study, [...] prior study 12/05/2023, Occluded GSV s/p venous swvigbsvg29/15/2024. FINDINGS: The LT GSV is occluded from [...] theIntersocietal Accreditation Commission (IAC/Vascular),www.intersocietal.org/vascular Report generated by [employer]. Final Charlotte Springer MD US * US [...] DENSITY 2 SITES AXIAL (07/02/2019 11:48 AM 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) Anatomical Region Laterality Modality Spine, HIPS, HIPL, HIPR Other Narrative 07/06/2019 11:01 AM 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 Please see scanned document for results of this study. Rakel Juju Geeta DO DEXA from Last 3 Months or Most Recently Relevant to Health Maintenance Advance Directives Documents on File Type Date Recorded Patient Store Team Leader Expl anation Healthcare Directive 07/19/2016 2:58 PM [...] 8:45 AM 09/01/2016 4:04 PM Care Teams Director Of Volunteer Services Relationship Specialty Start Date End Date Jose Napier PA-C [address] [place] [address] PCP - General Physician Engine Cleaner 03/01/24 Kd Restrepo MD Endocrinology 11/24/11 Charlotte Smith MD [address] [place] [id number] Surgery - Urology 03/01/24 Charlotte Springer MD [address] [place] [address] Surgery - Vascular 03/21/24
--- OUTSIDE RECORDS SUMMARY | 2024-03-30 10:04 | XMS_ITS | Continuity of Care Document ---
Author Organization [facility] Address [address] [place] [address] Phone Care Team Providers Care Commercial Lines Account Executive Name Role Phone Helder Medina MD Unavailable [...] Antibodies Dna Antibody, Single Strand Dna Antibody, [place] Nuclear Antigen Antibodies Rheumatoid Factor, IGM Rheumatoid Factor, IGG, IGA Advance Directives Directive Yes / No Effective Date File Name No Information Encounters Encounter Description Practice Location Reason(s) For Visit Diagnoses Date Provider Providers Copied on Encounter [facility], [address], [place], [address], [place] tel:[phone] [facility], No Information Apr-- 4 Adam Pendleton. [address], [place], [address], [place]. tel:[phone] Referring Provider: Helder Jain, [address], [place], [address]. tel:[phone] Office/Outpa tient Visit, Est [facility], [address], [place], [address], [place] tel:[phone] [facility], Sjogren syndrome w/ inflammatory arthritisPain in left foot Apr- 0 4 Lebedoff Helder. [address], [place], [address], [place]. tel:[phone] Referring Provider: Helder Jain, [address], [place], [address]. tel:[phone] Office/Outpa tient Visit, Est [facility], [address], [place], [address], [place] tel:[phone] [facility], Sjogren syndrome w/ inflammatory arthritisPrim mauri osteoarthriti s, right hand 3 Lebedoff Helder. [address], [place], [address], [place]. tel:[phone] Referring Provider: Helder Jain, [address], [place], [address]. tel:[phone] Office/Outpa tient Visit, Est [facility], [address], [place], [address], [place] tel:[phone] [facility], Sicca syndrome, unspecifiedWe akness November- 0 3 Lebedoff Helder. [address], [place], [address], [place]. tel:[phone] Referring Provider: Helder Jain, [address], [place], [address]. tel:[phone] Office/Outpa tient Visit, Est [facility], [address], [place], [address], [place] tel:[phone] [facility], Sicca syndrome, unspecifiedPa in in left shoulder Apr- 2 Adam Pendleton. [address], [place], [address], [place]. tel:[phone] Referring Provider: Helder Jain, [address], [place], [address]. tel:[phone] Office/Outpa tient Visit, Est [facility], [address], [place], [address], [place] tel:[phone] [facility], Sicca syndrome, unspecifiedDy spnea Oct- 2 Adam Pendletno. [address], [place], [address], [place]. tel:[phone] Referring Provider: Helder Jain, [address], [place], [address]. tel:[phone] Office/Outpa tient Visit, Est [facility], [address], [place], [address], [place] tel:[phone] [facility], Sicca syndrome, unspecifiedOt her technician terminal and repeater (current) drug therapyPrimar y OA of right handDyspnea Apr- 1 Adam Pendleton. [address], [place], [address], [place]. tel:[phone] Referring Provider: Helder Jain, [address], [place], [address]. tel:[phone] Office/Outpa tient Visit, New [facility], [address], [place], [address], [place] tel:[phone] [facility], Sicca syndrome, unspecifiedPa in in rt ankleOther long-term (current) drug therapy 1 Adam Pendleton. [address], [place], [address], [place]. tel:[phone] Referring Provider: Helder Medina G, [address], [place], [address]. tel:[phone] [facility], [address], [place], [address], [place] tel:[phone] [facility] No Information 1 Mo Sullivan. [facility] [address] [place] [address] [address], [place], [address], [place]. tel:[phone] Family History Family Member Type Diagnosis Age At Onset No Information Immunizations Vaccine Date Status Comments COVID-19 Moderna administered Source: Ot er Provider COVID-19 Pfizer administered Note: 1 ; Source: Other Provider Payers Payer name Insurance type Covered democrat ID Authoriza tion(s) [employer] Medicare Adv [id number] MB [id number] Social History Type Description Quantity Date Captured [...] Order Fo ot X-ray; Complete (3+ views) (35394), Sent on: Sent History Of Present Illness [...]
--- OUTSIDE RECORDS SUMMARY | 2024-03-30 10:04 | XMS_ITS | Continuity of Care Document ---
Author Organization [facility] Address [address] [place] [address] Phone Care Team Providers Care Music Box Mechanic Name Role Phone Usha Dickinson Unavailable Unavailable [...] on Encounter [facility], [address], [place], [place], [id number], [place] tel:[phone] No Information [facility]. [facility], [address], [place], [place], [id number] , [place]. [phone] Office/Outpat ient Visit,Est, Mod [facility], [address], [place], [place], [address], [place] tel:[phone] [facility] Other forms of scoliosis, thoracolumbar regionL2 wedge compression fracture, initial encounter for closed fractureSpondy lolisthesis, lumbar region 0 [facility]. [facility], [address], [place], [place], [address] , [place]. tel:[phone] Referring Provider: Rakel Arvizu, [email or web address] [facility] [address] [place], [address]. tel:[phone] Office/Outpat ient Visit,Est, Mod [facility], [address], [facility] [place], [place], [address], [place] tel:[phone] [facility] L2 wedge compression fracture, initial encounter for closed fractureOther forms of scoliosis, thoracolumbar regionSpondylo listhesis, lumbar region 0 Kwame Kerr. [facility], [address], [place], [place], [address] , . tel:[phone] Referring Provider: Rakel Arvizu Algore[place] [address] [place], [address]. tel:[phone] Office/Outpat ient Visit,[facility], [facility], [address], [facility] [place], [address], [place] tel:[phone] [facility] [place] L2 wedge compression fracture, initial encounter for closed fractureOther forms of scoliosis, thoracolumbar regionSpondylo listhesis, lumbar region 0 Kwame Kerr. [facility], [address], [place], [place], [address] , [place]. tel:[phone] Referring Provider: Rakel Arvizu [place] [address] [place], [address]. tel:[phone] Family History Family Member Type Diagnosis Age At Onset No Information Payers Payer name Insurance type Covered democrat ID Authoralethaa tishannon(s) Medicare MB [id number] [facility] [id number] [facility] [id number] Social History Type Description Quantity Date Captured [...]
== END 2024-03-30 10:01 | disposition home or self-care (01) ==
LOC: WOUND 10:00
PROVIDERS: PCP Physician Assistant Medical; Visit Provider Nurse Practitioner Family
DX: I87.2 Venous insufficiency (chronic) (peripheral) (principal); I89.0 Lymphedema, not elsewhere classified; I73.9 Peripheral vascular disease, unspecified; L97.322 Non-pressure chronic ulcer of left ankle with fat layer exposed; R73.03 Prediabetes
CPT/HCPCS: G0463

== ENCOUNTER 2024-04-06 09:53 | Outpatient (CLI) | payer OTHER, SELFPAY ==
--- OUTSIDE RECORDS SUMMARY | 2024-04-06 10:01 | XMS_ITS | Continuity of Care Document ---
Author Organization [facility] Address [address] [place] [address] Phone Care Team Providers Care Driver Utility Worker Name Role Phone Helder Medina MD Unavailable [...] Antibodies Dna Antibody, Single Strand Dna Antibody, [place] Nuclear Antigen Antibodies Rheumatoid Factor, IGM Rheumatoid Factor, IGG, IGA Advance Directives Directive Yes / No Effective Date File Name No Information Encounters Encounter Description Practice Location Reason(s) For Visit Diagnoses Date Provider Providers Copied on Encounter [facility], [address], [place], [address], [place] tel:[phone] [facility], No Information Apr-- 4 Adam Pendleton. [address], [place], [address], [place]. tel:[phone] Referring Provider: Helder Jain, [address], [place], [address]. tel:[phone] Office/Outpa tient Visit, Est [facility], [address], [place], [address], [place] tel:[phone] [facility], Sjogren syndrome w/ inflammatory arthritisPain in left foot Apr- 0 4 Lebedoff Helder. [address], [place], [address], [place]. tel:[phone] Referring Provider: Helder Jain, [address], [place], [address]. tel:[phone] Office/Outpa tient Visit, Est [facility], [address], [place], [address], [place] tel:[phone] [facility], Sjogren syndrome w/ inflammatory arthritisPrim mauri osteoarthriti s, right hand 3 Lebedoff Helder. [address], [place], [address], [place]. tel:[phone] Referring Provider: Helder Jain, [address], [place], [address]. tel:[phone] Office/Outpa tient Visit, Est [facility], [address], [place], [address], [place] tel:[phone] [facility], Sicca syndrome, unspecifiedWe akness November- 0 3 Lebedoff Helder. [address], [place], [address], [place]. tel:[phone] Referring Provider: Helder Jain, [address], [place], [address]. tel:[phone] Office/Outpa tient Visit, Est [facility], [address], [place], [address], [place] tel:[phone] [facility], Sicca syndrome, unspecifiedPa in in left shoulder Apr- 2 Adam Pendleton. [address], [place], [address], [place]. tel:[phone] Referring Provider: Helder Jain, [address], [place], [address]. tel:[phone] Office/Outpa tient Visit, Est [facility], [address], [place], [address], [place] tel:[phone] [facility], Sicca syndrome, unspecifiedDy spnea Oct- 2 Adam Pendleton. [address], [place], [address], [place]. tel:[phone] Referring Provider: Helder Jain, [address], [place], [address]. tel:[phone] Office/Outpa tient Visit, Est [facility], [address], [place], [address], [place] tel:[phone] [facility], Sicca syndrome, unspecifiedOt her chcf (current) drug therapyPrimar y OA of right handDyspnea Apr- 1 Adam Pendleton. [address], [place], [address], [place]. tel:[phone] Referring Provider: Helder Jain, [address], [place], [address]. tel:[phone] Office/Outpa tient Visit, New [facility], [address], [place], [address], [place] tel:[phone] [facility], Sicca syndrome, unspecifiedPa in in rt ankleOther chcf (current) drug therapy 1 Adam Pendleton. [address], [place], [address], [place]. tel:[phone] Referring Provider: Helder Medina G, [address], [address]. tel:[phone] [facility], [address], [place], [address], [place] tel:[phone] [facility] No Information 1 Mo Sullivan. [facility] [address] [place] [address] [address], [place], [address], [place]. tel:[phone] Family History Family Member Type Diagnosis Age At Onset No Information Immunizations Vaccine Date Status Comments COVID-19 Moderna administered Source: Ot er Provider COVID-19 Pfizer administered Note: 1 ; Source: Other Provider Payers Payer name Insurance type Covered alliance party ID Authoriza tion(s) [employer] Medicare Adv [id number] MB [id number] Social History Type Description Quantity Date Captured [...] Order Fo ot X-ray; Complete (3+ views) ([id number]), Sent on: Sent History Of Present Illness [...]
--- OUTSIDE RECORDS SUMMARY | 2024-04-06 10:01 | XMS_ITS | Clinical Summary ---
Author Organization [facility] Address [place], [place] [address] Care Team Providers Care Scrap Yard Worker Name Role Phone Kd Restrepo MD Unavailable [phone] Jose Napier PANettieC Primary Care Provider [phone] Charlotte Smith MD Unavailable [phone] Charlotte Springer MD Unavailable [phone] Allergies Active Allergy Reactions Criticality Noted Date Comments Amoxicillin 01/19/2007 Aspirin Rash,Itching 01/20/2006 Atorvastatin Myalgia 12/27/2014 Blood-Group Specific Substance Other - Describe In Comment Field High 09/01/2016 Patient has Anti-D. Blood product orders may be delayed. Draw one red top and two purple top tubes for all Type and Screen/Type and Crossmatch orders. Z-Likl-Yldpubdif-Propol-Eld erb *Unknown 02/28/2024 Ciprofloxacin Rash 05/31/2012 Clindamycin [...] Date Anticoagulation monitoring, INR range 2-3 [Z79.01]; [place] Target 2.5-3.0 12/06/2016 1 Pessary maintenance 02/25/2016 09/28/19 20 Anticoagulation monitoring, goal range 2.0-2.6 09/19/2013 01/09/2018 Abnormal stress test 11/17/2010 011 Routine general medical exam ination at a health care facility 07/12/2009 09/28/2019 Overview (12/06/2012): Normal CT angiogram 11/2010 Hip pain 05/06/2008 07/09/2009 Onychomycosis 05/06/2008 08/27/2008 HX OF VENOUS THROMBOSIS AND EMBOLISM 11/09/2006 12/06/2012 Bilateral pulmonary embolism 10/11/2006 11/18/2017 AFTERCARE, LONG-TERM USE, [place] DICATIONS NEC-PLAQUENIL 10/22/2003 Encounters Date Type Department Care Team Description 04/05/2024 Travel 04/02/2024 Telephone [facility] [address] [place] [address] Charlotte Springer MD 03/30/2024 Telephone [facility] [address] [place] [address] Charlotte Springer MD Questions 03/21/2024 Telephone [facility] [address] [place] [address] Charlotte Springer MD status of left wound ankle 03/01/2024 3:30 PM CDT Office Visit [facility] [address] [place] [address] Olvin Haji MD Consult (CT, US & MRI - spot on pancreas) 03/01/2024 Travel 02/28/2024 10:00 AM CDT Office Visit [facility] [address] [place] [address] Tomas Page OD Eye Exam (CEE) 02/28/2024 Travel 02/20/2024 Telephone [facility] [address] [place] [address] Charlotte Springer MD Results 02/17/2024 10:56 AM CDT - 02/17/2024 11:59 PM CDT Hospital Encounter [facility] [address] [place] [address] Charlotte Springer MD Venous stasis ulcer of ankle, left (HC) 02/16/2024 8:00 AM CDT Procedure Only [facility] [address] [place] [address] Charlotte Springer MD 02/16/2024 6:57 AM CDT - 02/16/2024 11:59 PM CDT Hospital Encounter [facility] [address] [place] [address] Charlotte Springer MD Venous stasis ulcer of ankle, left (HC) 02/16/2024 Travel 02/10/2024 Telephone [facility] [address] [place] [address] Charlotte Springer MD Pre Procedure Instructions 01/19/2024 Orders Only [facility] Scanner 1 scan: (1-Ord) [facility], CLINICAL LABORATORY REPORT, 01/19/2024 01/19/2024 Orders Only [facility] Scanner 1 scan: (1-Ord) [facility], CLINIC LABORATORY REPORT, 01/19/2024 01/18/2024 Orders Only [facility] Scanner 1 scan: (1-Ord) [facility], CLINICAL LABORATORY REPORT, 01/18/2024 01/18/2024 Orders Only [facility] Scanner 1 scan: (1-Ord) [facility], CLINICAL LABORATORY REPORT, 01/18/2024 01/18/2024 Orders Only [facility] Scanner 1 scan: (1-Ord) [facility], CLINICAL LABORATORY REPORT, 01/18/2024 01/18/2024 Orders Only [facility] Scanner 1 scan: (1-Ord) [facility], CT ABDOMEN PELVIS W CON, 01/18/2024 01/18/2024 Orders Only [facility] Scanner 1 scan: (1-Ord) [facility], US ABDOMEN LIMITED, 01/18/2024 01/06/[address] [address] Charlotte Springer MD Questions (Concern about wound) from Last 3 Months Immunizations Name Administration Dates Next Due AMB INFLUENZA IIV3 (AGE 65+ YRS) PF (Flu Clinic Only) 03/23/2017 AMB Influenza, IIV3 (Age >=3 years) Preserve Free (Flu Clinic Only) 04/08/2009 AMB Influenza, IIV3 (Age >=3 years)(Flu Clinic Only) 04/06/2013,04/16/2011,04/24/2008 COVID-19 vaccine (Mimoco NTech 30mcg/0.3mL) PFMDV 09/02/2020,08/12/2020 Influenza A (H1N1), Inactiva [...] Care Team (Late st Contact Info) Description 04/09/2024 9:30 AM CDT Office Visit [facility] [address] [place] [address] Charlotte Springer MD [address] [place] [address] 05/10/2024 2:00 PM AGENCY TRAINER Ancillary Procedure [facility] [address] [place] [address] 08/30/2024 10:00 AM AGENCY TRAINER Office Visit [facility] [address] [place] [address] [place] [address] [address] [place] [address] Health Maintenance Due Date Last Done Comments RSV vaccine for adults or (1 - 1-dose 75+ series) 2015 Depression screening for age 12+ 06/18/2021 06/18/2020, 06/18/2020, 06/18/2020, Additional history exists Medicare Wellness for age 65+ 06/19/2021 12 /, 06/18/2019, 06/28/2018, Additional history exists COVID-19 vaccine [...] 01/13/2016, 12/18/2010 Medical Devices Implanted Type Area Curtain Feller Blindstitch Device Identifier Shelf Expiration Date Model / Serial / Lot Lead Kit 4.32mm Spacing 28cm Length Interstim - [id number] Implanted:Qty: 1 on 04/01/2020 by Charlotte Smith MD at [facility] N/A: Sacrum Medtronic Pain Therapy 09/30/2021 [id number] / / [id number] Stimulator 7.7mm 14cc Interstim Ii - [id number] Implanted:Qty: 1 on 04/01/2020 by Charlotte Smith MD at [facility] N/A: Sacrum Medtronic Pain Therapy 03/31/2021 [id number] / [id number] / Description:PIN [id number] Procedures Procedure Name Priority Date/Time Associated Diagnosis [...] CDT SCAN-ULTRASOUND REPORT 4 12:00 AM CDT XR DXA BONE DENSITY 2 SITES AXIAL Routine 07/02/2019 11:48 AM AGENCY TRAINER Osteopenia of multiple sites from Last 3 Months or Most Recently Relevant to Health Maintenance Results * US VENOUS LOWER EXTREMITY LEFT (02/17/2024 11:46 AM CDT) Anatomical Region Laterality Modality LEGS, LEG L, Abdomen Ultrasound 02/17/2024 11:1 7 AM CDT Narrative 02/17/2024 5:40 PM CDT VASCULAR ULTRASOUND REPORT RODERICK HEATON Accession#: ?? [id number] : ?1940 ??Study Date: ?? 02/17/2024 11:17:13 AM Age: ?83 years ?? Tech: ? AMS Gender: F ?Referring MD: CHARLOTTE SPRINGER Site: [facility] Vascular [facility] Study performed: ?Duplex US DVT [...] Accreditation Commission (IAC/Vascular), www.intersocietal.org/vascular Report generated by [employer]deco. ??Final ?? Procedure Note Dejan Tolentino MD - 02/17/2024 VASCULAR ULTRASOUND REPORT RODERICK HEATON : 1940 Study Date: 02/17/2024 11:17:13 AM Age: 83 years Tech: AMS Gender: F Referring MD: CHARLOTTE SPRINGER Site: [facility] Study performed: Duplex US DVT study, [...] prior study 12/05/2023, Occluded GSV s/p venous diwzchbgk02/15/2024. FINDINGS: The LT GSV is occluded from [...] theIntersocietal Accreditation Commission (IAC/Vascular),www.intersocietal.org/vascular Report generated by [employer]deco. Final Charlotte Springer MD US * US [...] 12:00 AM CDT) Only the most recent of5 resultswithin the time period is included. Scanner OTHER * SCAN-ULTRASOUND REPORT (01/18/2024 12:00 AM CDT) Anatomical Region Laterality Modality Other Scanner OTHER * SCAN-CT INTERPRETATION (01/18/2024 12:00 AM CDT) Anatomical Region Laterality Modality Other Scanner OTHER * (ABNORMAL) XR DXA BONE DENSITY 2 SITES AXIAL (07/02/2019 11:48 AM AGENCY TRAINER) Anatomical Region Laterality Modality Spine, HIPS, HIPL, HIPR Other Narrative 07/06/2019 11:01 AM AGENCY TRAINER Please see scanned document for results of this study. 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
--- OUTSIDE RECORDS SUMMARY | 2024-04-06 10:02 | XMS_ITS | Continuity of Care Document ---
Author Organization [facility] Address [address] [place] [address] Phone Care Team Providers Care Professional Soccer Player Name Role Phone Usha Dickinson Unavailable Unavailable [...] on Encounter [facility], [address], [place], [place], [id number], [place] tel:[phone] No Information [facility], [address], [place], [place], [id number] , [place]. [phone] Office/Outpat ient Visit,Est, Mod [facility], [address], [place], [place], [address], [place] tel:[phone] [facility] Other forms of scoliosis, thoracolumbar regionL2 wedge compression fracture, initial encounter for closed fractureSpondy lolisthesis, lumbar region 0 [facility]. [facility], [address], [place], [place], [address] , [place]. tel:[phone] Referring Provider: Rakel Arvizu, [facility] [address] [place], [address]. tel:[phone] Office/Outpat ient Visit,Est, Mod [facility], [address], [facility] [place], [address], [place] tel:[phone] [facility] L2 wedge compression fracture, initial encounter for closed fractureOther forms of scoliosis, thoracolumbar regionSpondylo listhesis, lumbar region 0 Kwame Kerr. [facility], [address], [place], [place], [address] , . tel:[phone] Referring Provider: Rakel Arvizu [address] [place], [address]. tel:[phone] Office/Outpat ient Visit,[facility], [facility], [address], [facility] [place], [address], [place] tel:[phone] [facility] [place] L2 wedge compression fracture, initial encounter for closed fractureOther forms of scoliosis, thoracolumbar regionSpondylo listhesis, lumbar region 0 Kwame Kerr. [facility], [address], [place], [place], [id number] , [place]. tel:[phone] Referring Provider: Rakel Arvizu [address] [place], [address]. tel:[phone] Family History Family Member Type Diagnosis Age At Onset No Information Payers Payer name Insurance type Covered republican ID Authoralethaa tishannon(s) Medicare MB [id number] [facility] [id number] [facility] [id number] Social History Type Description Quantity Date Captured [...]
== END 2024-04-06 09:54 | disposition home or self-care (01) ==
LOC: WOUND 09:53
PROVIDERS: PCP Physician Assistant Medical; Visit Provider Nurse Practitioner Family
DX: I87.2 Venous insufficiency (chronic) (peripheral) (principal); I89.0 Lymphedema, not elsewhere classified; I73.9 Peripheral vascular disease, unspecified; L97.322 Non-pressure chronic ulcer of left ankle with fat layer exposed; R73.03 Prediabetes
CPT/HCPCS: 11042

== ENCOUNTER 2024-04-13 09:57 | Outpatient (CLI) | payer OTHER, SELFPAY ==
--- OUTSIDE RECORDS SUMMARY | 2024-04-13 09:59 | XMS_ITS | Continuity of Care Document ---
Author Organization [facility] Address [address] [place] [address] Phone Care Team Providers Care Needle Valve Operator Name Role Phone Usha Dickinson Unavailable [...] on Encounter [facility], [address], [place], [place], [id number], [place] tel:[phone] No Information [facility]. [facility], [address], [place], [place], [address] , [place]. [phone] Office/Outpat ient Visit,Est, Mod [facility], [address], [place], [place], [address], [place] tel:[phone] [facility] Other forms of scoliosis, thoracolumbar regionL2 wedge compression fracture, initial encounter for closed fractureSpondy lolisthesis, lumbar region 0 [facility]. [facility], [address], [place], [place], [id number] , [place]. tel:[phone] Referring Provider: Rakel Arvizu, [employer] [facility] [address] [place], [address]. tel:[phone] Office/Outpat ient Visit,Est, Mod [facility], [address], [facility] [place], [address], [place] tel:[phone] [facility] L2 wedge compression fracture, initial encounter for closed fractureOther forms of scoliosis, thoracolumbar regionSpondylo listhesis, lumbar region 0 Kwame Kerr. [facility], [address], [place], [place], [address] , . tel:[phone] Referring Provider: Rakel Arvizu [place] [address] [place], [address]. tel:[phone] Office/Outpat ient Visit,[facility], [facility], [address], [facility] [place], [address], [place] tel:[phone] [facility] [place] L2 wedge compression fracture, initial encounter for closed fractureOther forms of scoliosis, thoracolumbar regionSpondylo listhesis, lumbar region 0 Kwame Kerr. [facility], [address], [place], [place], [address] , [place]. tel:[phone] Referring Provider: Rakel Arvizu [place] [address] [place], [address]. tel:[phone] Family History Family Member Type Diagnosis Age At Onset No Information Payers Payer name Insurance type Covered democrat ID Authoralethaa tishannon(s) Medicare MB [id number] [facility] [id number] [facility] [id number] Social History Type Description Quantity Date Captured [...]
== END 2024-04-13 09:58 | disposition home or self-care (01) ==
LOC: WOUND 09:57
PROVIDERS: PCP Physician Assistant Medical; Visit Provider Nurse Practitioner Family
DX: I87.2 Venous insufficiency (chronic) (peripheral) (principal); I73.9 Peripheral vascular disease, unspecified; I89.0 Lymphedema, not elsewhere classified; L97.322 Non-pressure chronic ulcer of left ankle with fat layer exposed
CPT/HCPCS: 97597

== ENCOUNTER 2024-04-19 14:56 | Outpatient (CLI) | payer OTHER, SELFPAY ==
--- OUTSIDE RECORDS SUMMARY | 2024-04-19 14:58 | XMS_ITS | Continuity of Care Document ---
Author Organization [facility] Address [address] [place] [address] Phone Care Team Providers Care Florist Manager Name Role Phone Helder Medina MD [...] Antibodies Dna Antibody, Single Strand Dna Antibody, [place]opa Nuclear Antigen Antibodies Rheumatoid Factor, IGM Rheumatoid Factor, IGG, IGA Advance Directives Directive Yes / No Effective Date File Name No Information Encounters Encounter Description Practice Location Reason(s) For Visit Diagnoses Date Provider Providers Copied on Encounter [facility], [address], [place], [address], [place] tel:[phone] [facility], No Information Apr-- [address]endleton[address], [place], [address], [place]. tel:[phone] Referring Provider: Helder Jain, [address], [place], [address]. tel:[phone] Office/Outpa tient Visit, Est [facility], [address], [place], [address], [place] tel:[phone] [facility], Sjogren syndrome w/ inflammatory arthritisPain in left foot Apr- 0 4 Lebedoff Helder. [address], [place], [address], [place]. tel:[phone] Referring Provider: Helder Jain, [address], [place], [address]. tel:[phone] Office/Outpa tient Visit, Est [facility], [address], [place], [address], [place] tel:[phone] [facility], Sjogren syndrome w/ inflammatory arthritisPrim mauri osteoarthriti s, right hand 3 Lebedoff Helder. [address], [place], [address], [place]. tel:[phone] Referring Provider: Helder Jain, [address], [place], [address]. tel:[phone] Office/Outpa tient Visit, Est [facility], [address], [place], [address], [place] tel:[phone] [facility], Sicca syndrome, unspecifiedWe akness November- 0 3 Lebedoff Helder. [address], [place], [address], [place]. tel:[phone] Referring Provider: Helder Jain, [address], [place], [address]. tel:[phone] Office/Outpa tient Visit, Est [facility], [address], [place], [address], [place] tel:[phone] [facility], Sicca syndrome, unspecifiedPa in in left shoulder Apr- 2 Adam Pendleton. [address], [place], [address], [place]. tel:[phone] Referring Provider: Helder Jain, [address], [place], [address]. tel:[phone] Office/Outpa tient Visit, Est [facility], [address], [place], [address], [place] tel:[phone] [facility], Sicca syndrome, unspecifiedDy spnea Oct- 2 Adam Pendleton. [address], [place], [address], [place]. tel:[phone] Referring Provider: Helder Jain, [address], [place], [address]. tel:[phone] Office/Outpa tient Visit, Est [facility], [address], [place], [address], [place] tel:[phone] [facility], Sicca syndrome, unspecifiedOt her terminal manager (current) drug therapyPrimar y OA of right handDyspnea Apr- 1 Adam Pendleton. [address], [place], [address], [place]. tel:[phone] Referring Provider: Helder Jain, [address], [place], [address]. tel:[phone] Office/Outpa tient Visit, New [facility], [address], [place], [address], [place] tel:[phone] [facility], Sicca syndrome, unspecifiedPa in in rt ankleOther assisted (current) drug therapy 1 Adam Pendleton. [address], [place], [address], [place]. tel:[phone] Referring Provider: Helder Medina G, [address], [place], [address]. tel:[phone] [facility], [address], [place], [address], [place] tel:[phone] [facility] No Information 1 Mo Sullivan. [facility] [address] [place] [address] [address], [place], [address], [place]. tel:[phone] Family History Family Member Type Diagnosis Age At Onset No Information Immunizations Vaccine Date Status Comments COVID-19 Moderna administered Source: Ot er Provider COVID-19 Pfizer administered Note: 1 ; Source: Other Provider Payers Payer name Insurance type Covered republican ID Authoriza tion(s) [employer] Medicare Adv [id number] MB [id number] Social History Type Description Quantity Date Captured [...] Order Fo ot X-ray; Complete (3+ views) (33970), Sent on: Sent History Of Present Illness [...]
--- OUTSIDE RECORDS SUMMARY | 2024-04-19 14:58 | XMS_ITS | Clinical Summary ---
Author Organization [employer] 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 Blood product orders may be delayed. Draw one red top and two purple top tubes for all Type and Screen/Type and Crossmatch orders. 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 [address] [place] [phone] Charlotte Springer MD Follow Up ( Venous stasis ulcer of ankle, left ) 04/09/2024 Travel 04/05/2024 Travel 04/02/2024 Telephone [facility] [address] [place] [phone] Charlotte Springer MD 03/30/2024 Telephone [facility] [address] [place] [phone] Charlotte Springer MD Questions 03/21/2024 Telephone [facility] [address] [place] [phone] Charlotte Springer MD status of left wound ankle 03/01/2024 3:30 PM CDT Office Visit [facility] [address] [place] [address] Olvin Haji MD Consult (CT, US & MRI - spot on pancreas) 03/01/2024 Travel 02/28/2024 10:00 AM CDT Office Visit [facility] [address] [place] [address] Tomas Page OD Eye Exam (CEE) 02/28/2024 Travel 02/20/2024 Telephone [facility] [address] [place] [phone] Charlotte Springer MD Results 02/17/2024 10:56 AM CDT - 02/17/2024 11:59 PM CDT Hospital Encounter [facility] [address] [place] [address] Charlotte Springer MD Venous stasis ulcer of ankle, left (HC) 02/16/2024 8:00 AM CDT Procedure Only [facility] [address] [place] [phone] Charlotte Springer MD 02/16/2024 6:57 AM CDT - 02/16/2024 11:59 PM CDT Hospital Encounter [facility] [address] [place] [address] Charlotte Springer MD Venous stasis ulcer of ankle, left (HC) 02/16/2024 Travel 02/10/[address] [address] Charlotte Springer MD Pre Procedure Instructions 01/19/2024 Orders Only [facility] Scanner 1 scan: (1-Ord) [facility], CLINICAL LABORATORY REPORT, 01/19/2024 01/19/2024 Orders Only [facility] Scanner 1 scan: (1-Ord) [facility], CLINIC LABORATORY REPORT, 01/19/2024 01/18/2024 Orders Only [facility] Scanner 1 scan: (1-Ord) [facility], CLINICAL LABORATORY REPORT, 01/18/2024 01/18/2024 Orders Only [facility] Scanner 1 scan: (1-Ord) [facility], CLINICAL LABORATORY REPORT, 01/18/2024 01/18/2024 Orders Only [facility] Scanner 1 scan: (1-Ord) [facility], CLINICAL LABORATORY REPORT, 01/18/2024 01/18/2024 Orders Only [facility] Scanner 1 scan: (1-Ord) [facility], CT ABDOMEN PELVIS W CON, 01/18/2024 01/18/2024 Orders Only [facility] Scanner 1 scan: (1-Ord) [facility], US ABDOMEN LIMITED, 01/18/2024 from Last 3 Months Immunizations Name Administration Dates Next Due AMB INFLUENZA IIV3 (AGE 65+ YRS) PF (Flu Clinic Only) 03/23/2017 AMB Influenza, IIV3 (Age >=3 years) Preserve Free (Flu Clinic Only) 04/08/2009 AMB Influenza, IIV3 (Age >=3 years)(Flu Clinic Only) 04/06/2013,04/16/2011,04/24/2008 COVID-19 vaccine ([employer] 30mcg/0.3mL) MARY [place] 09/02/2020,08/12/2020 Influenza A (H1N1), Inactiva clint (Age [...] Sign Reading Time Taken Comments Blood Pressure 196/81 04/09/2024 9:21 AM CDT Pulse 69 04/09/2024 9:19 AM CDT Temperature 36.2 ??C (97.1 ??F) 04/23/2022 8:11 AM CD T Respiratory Rate 18 03/18/2023 2:24 PM CDT Oxygen Saturation 99% 04/09/2024 9:19 AM CDT Inhaled Oxygen Concentration - - Weight 62.2 kg (137 lb 2 oz) 04/09/2024 9:19 AM CDT Height 149.9 cm (4' 11.02) 04/09/2024 9:19 AM C DT Body Mass Index 27.68 04/09/2024 9:19 AM CDT Plan of Treatment Upcoming Encounters Date Type Department Care Team (Late st Contact Info) Description 05/04/2024 7:30 AM CDT Appointment [facility] [address] [place] [address] Charlotte Springer MD [address] [place] [address] 05/10/2024 2:00 PM CUPOLA TENDER Ancillary Procedure [facility] [address] [place] [address] 05/18/2024 10:30 AM CUPOLA TENDER Office Visit [facility] [address] [place] [phone] 08/30/2024 10:00 AM CUPOLA TENDER Office Visit [facility] [address] [place], [place] [phone] [place] [address] [place] [address] Health Maintenance Due Date Last Done Comments RSV vaccine for adults or (dose 75+ series) 2015 Depression screening for age 12+ 06/18/2021 06/18/2020, 06/18/2020, 06/18/2020, Additional history exists Medicare Wellness for age 65+ 06/19/2021, 06/18/2019, 06/28/2018, Additional history exists COVID-19 vaccine series ( season) 2024 06/13/2023, 04/30/2022, 04/14/2021, Additional history exists Influenza for age 65+ 03/04/2024 03/20/2020 , 04/03/2019, 03/02/2018, Additional history exists BMI (ht and wt on same day) for age 18+ 04/09/2025 04/09/2024, 12/05/2023, 11/23/2023, Additional history exists Tetanus booster 01/28/2030 01/29/2020, 08/2010, 02/02/2004, Additional history exists Tdap Completed 11/02/2010 Pneumococcal series for age 65+ Completed 07/19/2014, 10/15/2005, 04/11/1997 Zoster (shingles) series for age 50+ Completed 09/27/2018, 07/06/2018 DEXA/DXA scan for age 65+ Completed 2018, 01/13/2016, 12/18/2010 Medical Devices Implanted Type Area Dental Laboratory Technology Teacher Device Identifier Shelf Expiration Date Model / Serial / Lot Lead Kit 4.32mm Spacing 28cm Length Interstim - [id number] Implanted:Qty: 1 on 04/01/2020 by Charlotte Smith MD at [facility] N/A: Sacrum [employer] Pain Therapy 09/30/2021 [id number] / / [id number] Stimulator 7.7mm 14cc Interstim Ii - [id number] Implanted:Qty: 1 on 04/01/2020 by Charlotte Smith MD at [facility] N/A: Sacrum [employer] Pain Therapy 03/31/2021 [id number] / [id number] / Description:PIN [id number] Procedures Procedure Name Priority Date/Time Associated Diagnosis [...] 2 SITES AXIAL Routine 07/02/2019 11:48 AM CUPOLA TENDER Osteopenia of multiple sites from Last 3 Months or Most Recently Relevant to Health Maintenance Results * US VENOUS LOWER EXTREMITY LEFT (02/17/2024 11:46 AM CDT) Anatomical Region Laterality Modality LEGS, LEG L, Abdomen Ultrasound 02/17/2024 11:1 7 AM CDT Narrative 02/17/2024 5:40 PM CDT VASCULAR ULTRASOUND REPORT RODERICK HEATON Accession#: ?? [id number] : ?1940 ??Study Date: ?? 02/17/2024 11:17:13 AM Age: ?83 years ?? Tech: ? AMS Gender: F ?Referring MD: CHARLOTTE SPRINGER [facility] Study performed: ?Duplex US DVT [...] Accreditation Commission (IAC/Vascular), www.intersocietal.org/vascular Report generated by [email or web address]. ??Final ?? Procedure Note Dejan Tolentino MD - 02/17/2024 VASCULAR ULTRASOUND REPORT RODERICK HEATON : 1940 Study Date: 02/17/2024 11:17:13 AM Age: 83 years Tech: AMS Gender: F Referring MD: CHARLOTTE SPRINGER Site: [facility] Vascular [facility] Study performed: Duplex US DVT study, (left). 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 FINDINGS: The LT GSV is occluded from [...] theIntersocietal Accreditation Commission (IAC/Vascular),www.intersocietal.org/vascular Report generated by [email or web address]. Final Charlotte Springer MD US * US [...] DENSITY 2 SITES AXIAL (07/02/2019 11:48 AM CUPOLA TENDER) Anatomical Region Laterality Modality Spine, HIPS, HIPL, HIPR Other Narrative 07/06/2019 11:01 AM CUPOLA TENDER Please see scanned document for results of this study. 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
--- OUTSIDE RECORDS SUMMARY | 2024-04-19 14:58 | XMS_ITS | Continuity of Care Document ---
Author Organization [facility] Address [address] [place] [address] Phone Care Team Providers Care Customer Care Team Coach Name Role Phone Usha Dickinson Unavailable Unavailable [...] on Encounter [facility], [address], [facility] [place], [place], [id number], [place] tel:[phone] No Information [facility]. [facility], [address], [place], [place], [id number] , [place]. [phone] Office/Outpat ient Visit,Est, Mod [facility], [address], [place], [place], [id number], [place] tel:[phone] [facility] Other forms of scoliosis, thoracolumbar regionL2 wedge compression fracture, initial encounter for closed fractureSpondy lolisthesis, lumbar region 0 Puente Usha. [facility], [address], [place], [place], [id number] , [place]. tel:[phone] Referring Provider: Rakel Arvizu, [employer] [facility] [address] [place], [address]. tel:[phone] Office/Outpat ient Visit,Est, Mod [facility], [address], [facility] [place], [id number], [place] tel:[phone] [facility] L2 wedge compression fracture, initial encounter for closed fractureOther forms of scoliosis, thoracolumbar regionSpondylo listhesis, lumbar region 0 Kwame Kerr. [facility], [address], [place], [place], [id number] , . tel:[phone] Referring Provider: Rakel Arvizu [employer] [address] [place], [address]. tel:[phone] Office/Outpat ient Visit,[facility], [facility], [address], [facility] [place], [place], [id number], [place] tel:[phone] [facility] [place] L2 wedge compression fracture, initial encounter for closed fractureOther forms of scoliosis, thoracolumbar regionSpondylo listhesis, lumbar region 0 Kwame Kerr. [facility], [address], [place], [place], [id number] , [place]. tel:[phone] Referring Provider: Rakel Arvizu [employer] [address] [place], [address]. tel:[phone] Family History Family Member Type Diagnosis Age At Onset No Information Payers Payer name Insurance type Covered libertarian ID Authoralethaa tishannon(s) Medicare MB [id number] [facility] [id number] [facility] [id number] Social History Type Description Quantity Date Captured [...]
--- OUTSIDE RECORDS SUMMARY | 2024-04-19 14:59 | XMS_ITS | Data Portability ---
Author Organization [facility] José Antoniolo gy, [facility]John Address [address] [place] [address] Care Team Providers Care Elder Counselor Name Role Phone [facility] Primary Care Provider Assessment No assessment recorded. Plan of Treatment Reminders Order Date Submit Date Provider Last Modified By Organization Details Last Modified Time Details Appointments None record ed. Lab None record ed. Referral None record ed. Procedures None record ed. Surgeries None record ed. Imaging None record ed. Medication Orders None record ed. Patient TargetsNo targets recorded. Patient Instructions Encounter Date Encounter Id Patient Instructions Last Modified By Organization Details Last Modified Time 09/14/2021 [id number] Test each progra m for at least 2 weeks, adjusting amplitude as needed. May remain on a program as long as it is effective. Return as needed for reprogramming. Not available 09/14/2021 10:07:26 Patient states t hat Gemtessa samples were very effective, but it is not covered by her insurance. She was also given a rx for Myrbetriq. Not available 09/14/2021 10:08:49 11/12/2021 [id number] Over Active Blad betty (OAB): -Managed with [...] minutes [email or web address] Not available 11/12/2021 11:46:55 04/09/2022 [id number] Test each progra m for at least 2 weeks, adjusting amplitude as needed. May remain on a program as long as it is effective. Return as needed for reprogramming. [email or web address] Not available 04/09/2022 12:34:22 Patient states t hat Gemtesa samples were effective, but the rx was too expensive, so she stopped taking. She would like to try the Gemtesa again, but wonders of it is ok t take every other day, to spread the prescription out, and decrease the expense. I will ask Afsaneh Bui PAC. [email or web address] Not available 04/09/2022 12:37:43 12/06/2022 [id number] Test each progra m for at least 2 weeks, adjusting amplitude as needed. May remain on a program as long as it is effective. Return as needed for reprogramming. Not available 12/06/2022 10:55:41 04/28/2023 [id number] Over Active Blad betty (OAB): -Managed with [...] Abnormal Flag Note LastModifiedBy Organization Detail LastModifiedTime 09/15/1909/14/2021 UA DIP CS ADVAN TUS color -advantus YELLOW yellow Not Available [facility] [address], [place], [address], 09/14/2021 10:41:46 09/15/19 22 09/14/2021 UA DIP CS ADVAN TUS appearance -advantus CLEAR clear Not Available [facility] [address] [facility] [facility] [address], [place], [address], 09/14/2021 10:41:46 09/15/19 22 09/14/2021 UA DIP CS ADVAN TUS glucose -advantus NEGATI VE mg/dL negati ve Not Available [facility] [address] [place] [address] [address], [place], [address], 09/14/2021 10:41:46 09/15/19 22 09/14/2021 UA DIP CS ADVAN TUS bilirubin -advantus NEGATI VE negati ve Not Available [facility] [address] [place] [address] [address], [place], [address], 09/14/2021 10:41:46 09/15/19 22 09/14/2021 UA DIP CS ADVAN TUS ketones -advantus NEGATI VE mg/dL negati ve Not Available [facility] [address] [place] [address] [address], [place], [address], 09/14/2021 10:41:46 09/15/19 22 09/14/2021 UA DIP CS ADVAN TUS sp. gravity -advantus 1.010 1.010- 1.025 Not Available [facility] [address] [place] [address], [place], [address], 09/14/2021 10:41:46 09/15/19 22 09/14/2021 UA DIP CS ADVAN TUS pH -advantus 6.0 5.0-8. 0 Not Available [facility] [address] [place] [address], [place], [address], 09/14/2021 10:41:46 09/15/19 22 09/14/2021 UA DIP CS ADVAN TUS protein -advantus NEGATI VE mg/dL negati ve Not Available [facility] [address] [place] [address], [place], [address], 09/14/2021 10:41:46 09/15/19 22 09/14/2021 UA DIP CS ADVAN TUS urobilinogen -advantus 0.2 normal Not Available [facility] [address] [place] [address], [place], [address], 09/14/2021 10:41:46 09/15/19 22 09/14/2021 UA DIP CS ADVAN TUS nitrites -advantus NEGATI VE negati ve Not Available [facility] [address] [facility] [address], [place], [address], 09/14/2021 10:41:46 09/15/19 22 09/14/2021 UA DIP CS ADVAN TUS blood -advantus SMALL negati ve abnormal Not Available [facility] [address] [facility] [address], [place], [address], 09/14/2021 10:41:46 09/15/19 22 09/14/2021 UA DIP CS ADVAN TUS leukocytes -advantus NEGATI VE negati ve Not Available [place] [facility] [address] [facility] [address], [place], [address], 09/14/2021 10:41:46 09/15/19 22 09/14/2021 UA DIP CS ADVAN TUS performed by Bibi Ruiz Not Available [facility] [address] [facility] [address], [place], [address], 09/14/2021 10:41:46 09/15/19 22 09/14/2021 UA DIP CS ADVAN TUS total urine volume (mL) 20cc /mL ----- ----- ----- ----- ----- ----- ----- ----- ----- ----- ----- ----- ----- ----- ---- *Plerosie braun note the [employer] minim um [...] ----- ----- ----- ----- ---- Not Available [facility] [address] [place] [address], [place], [address], 09/14/2021 10:41:46 09/15/19 22 09/14/2021 UA MICRO SCOPI C U-WBC 0 - 2 [hpf] 0 - 2 Not Available [facility] [address] [place] [address], [place], [address], 09/14/2021 10:41:47 09/15/19 22 09/14/2021 UA MICRO SCOPI C U-RBC 0 - 2 [hpf] 0 - 2 Not Available [facility] [address] [place] [address], [place], [address], 09/14/2021 10:41:47 09/15/19 22 09/14/2021 UA MICRO SCOPI C bacteria Small [hpf] negati ve abnormal Not Available [facility] [address] [place] [address], [place], [address], 09/14/2021 10:41:47 09/15/19 22 09/14/2021 UA MICRO SCOPI C squamous epi Small /lpf negati ve,sma ll Not Available [facility] [address] [place] [address], [place], [address], 09/14/2021 10:41:47 Result Notes None recorded. 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 Procedures Surgical History Date Name Laterality Status Provider Name and Address Organization Details Recorded Time 04/16/20 24 COMPLEX VISIT cancelled ELMA Burciaga [address] [place] [address],[address], [address], [facility] 04/10/2024 11:39:57 04/16/20 24 Bladder Scan cancelled ELMA Burciaga [address] [place] [address],[facility] [address], [place], [address], [facility] 04/10/2024 11:41:06 04/28/20 23 Sacral neuromodulation w/o reprogramming completed ELMA Burciaga [address] [place] [address],[facility] [address], [place], [address], [facility] 04/28/2023 11:57:28 04/28/20 23 Bladder Scan completed Radhika Mathis [facility] 04/28/2023 11:36:21 12/07/19 23 Sacral neuromodulation w/o reprogramming completed Brea Bosch [facility] 12/06/2022 11:08:45 04/09/20 22 Sacral Stimulator Reprogramming completed Brea Bosch [facility] 04/09/2022 12:49:34 09/15/19 22 Bladder Scan completed Merry Ocampo [facility] 09/14/2021 10:25:15 09/15/19 22 Sacral neuromodulation w/o reprogramming completed Brea Bosch [facility] 09/14/2021 10:15:12 08/03/19 22 Past Data Reviewed completed Charlotte Smith MD [address] [facility],[address], [place], [address], [facility] 08/03/2021 08:29:52 08/03/19 22 Bladder Scan completed Usha Corado [facility] 08/03/2021 11:50:03 11/27/19 21 Sacral Stimulator Reprogramming completed Brea Bosch [facility] 11/27/2020 12:44:01 09/17/19 20 Implant neuroelectrodes completed Not Available [facility] 12/13/2019 18:11:39 11/29/19 19 Insert bladder catheter completed Not Available [facility] 12/13/2019 18:11:39 11/14/19 15 Colonoscopy completed Lucinda Nuñez [facility] 11/11/2020 11:57:08 11/29/19 09 Total hip arthroplasty completed Not Available [facility] 12/13/2019 18:11:39 11/29/19 00 Unlisted procedure breast completed Not Available [facility] 12/13/2019 18:11:39 Appendectomy add-on completed Not Available [facility] 12/13/2019 18:11:39 Imaging Results None recorded. Procedure Notes None recorded. Medical Equipment None Reported. Allergies Allergen ID Allergen Name Allergen Category Reaction Reaction Severity Criticality Documentation Date Start Date Code Code System Note Provider Name and Address Organization Details Recorded Time 19861108 Nitroimid azole (substanc e) medicatio n Not available Not available Not available 12/12/2019 42958 5001 SNOMED Not Available [facility] 0 23:50:45 348731 sulindac medicatio n Not available Not available Not available 12/12/2019 22799 RxNorm Not Available [facility] 0 23:50:45 19870101 Medicinal product containin g penicilli n and acting as antibacte rial agent (product) medicatio n itching Not available Not available 12/12/2019 62573 05 SNOMED Not Available [facility] 0 23:50:45 664974 atorvasta tin medicatio n Not available Not available Not available 12/12/2019 74465 RxNorm Not Available [facility] 0 23:50:45 152473 tetracycl ine medicatio n Not available Not available Not available 12/12/2019 10045 RxNorm Not Available [facility] 0 23:50:45 308256 alendrona te sodium medicatio n Not available Not available Not available 12/12/201930583 2 RxNorm Not Available [facility] 0 23:50:45 598851 amoxicill in medicatio n Not available Not available Not available 12/12/2019 723 RxNorm Not Available [facility] 0 23:50:45 102380 oxybutyni n chloride Not available dizziness Not available Not available 12/12/2019 26840 RxNorm fatig ue Not Available [facility] 0 23:50:45 196660 aspirin medicatio n Not available Not available Not available 12/12/2019 1191 RxNorm Not Available [facility] 0 23:50:46 946392 losartan Not available Not available Not available Not available 12/12/2019 99411 RxNorm Not Available [facility] 0 23:50:46 870167 estrogens , conjugate d (SENIOR CARE) medicatio n Not available Not available Not available 12/12/2019 4099 RxNorm Not Available [facility] 0 23:50:46 511905 ciproflox acin medicatio n Not available Not available Not available 12/12/2019 2551 RxNorm Not Available [facility] 0 23:50:46 448227 hydrochlo rothiazid e medicatio n Not available Not available Not available 12/12/2019 5487 RxNorm Not Available [facility] 0 23:50:46 860365 metoprolo l Not available Not available Not available Not available 12/12/2019 6918 RxNorm Not Available [facility] 0 23:50:46 162761 naproxen medicatio n Not available Not available Not available 12/12/2019 7258 RxNorm Not Available [facility] 0 23:50:46 123820 clindamyc in Not available Not available Not available Not available 12/12/2019 2582 RxNorm Not Available [facility] 0 23:50:46 445923 Substance with sulfonami de structure and antibacte rial mechanism of action (substanc e) medicatio n Not available Not available Not available 11/11/2020 23744 8003 SNOMED [facility] 1 11:56:30 050137 Myrbetriq medicatio n swelling Not available Not available 10/05/2021 20930 92 RxNorm [facility] [address] [place] [address],[place] [address], [place], [address], [facility] 2 13:18:14 840195 [employer] [facility] Immune medicatio n Not available Not available Not available 04/09/2022 Brea felix, [facility] 2 12:14:11 Medications Name [...] No t Available warfarin 2.5 mg tablet take 1/2 tablet (1.25 mg) by mouth on Tuesday, Tuesday , take 1 tab (2.5 mg) daily on all other days* active Not Available Not Available No t [...] mg tablet TAKE ONE TABLET BY MOUTH TWICE DAILY NEEDED for edema* active Not Available Not Available No t [...] Updated DateTime 04/09/2022 154.94 cm 27.8 kg/m2 55265.08 g Brea Bosch [facility] 04/09/2022 12:13:52 Date Recorded Body height Body mass index (BMI) Body weight Provider Name and Address Organization Details Last Updated DateTime 12/06/2022 154.94 cm 25.5 kg/m2 45001.97 g Brea Bosch [facility] 12/06/2022 10:41:56 Date Recorded Body height Body mass index (BMI) Body weight Provider Name and Address Organization Details Last Updated DateTime 04/28/2023 154.94 cm 25.5 kg/m2 95235.97 g Radhika Mathis [facility] 04/28/2023 11:25:35 Date Recorded Body height Body mass index (BMI) Body weight Provider Name and Address Organization Details Last Updated DateTime 09/14/2021 158.75 cm 26.5 kg/m2 49694.08 g Brea Danitza [facility] 09/14/2021 09:54:39 Date Recorded Body height Body mass index (BMI) Body weight Provider Name and Address Organization Details Last Updated DateTime 09/14/2021 158.75 cm 26.5 kg/m2 77695.08 zeus Sousa Terrence [facility] 09/14/2021 10:08:57 Date Recorded Body height Body mass index (BMI) Body weight Provider Name and Address Organization Details Last Updated DateTime 11/12/2021 154.94 cm 27.8 kg/m2 66415.08 zeus Quevedodeandre [facility] 11/12/2021 11:32:20 Social History Question Answer Notes LastModified by Organizat ion Details LastModified Time Tobacco Smoking Status Never Smoker Not Available [facility] 12/13/2019 02:00:45 What Is Your Level Of [...] Of Your Most Recent Tobacco Screening? 12/06/2022 [email or web address] Information not available 12/06/2022 What Is Your [...] conjugate PCV 13 07/04/2017 completed STEPHEN Germain [facility] 04/28/2023 11:25:40 Past Encounters Encounter ID Performer Location Encounter Start Date Encounter Closed Date Diagnosis/Indication Diagnosis SNOMED-CT Code Diagnosis ICD10 Code [id number] Charlotte Smith MD [address] [address] 04/15/2020 10:02:52 04/25/2020 12:54:57 Overactive urinary bladder 622349951 N32.81 Urge incon tinence of urine 17603194 N39.41 [id number] Charlotte Smith MD [address] [address] 05/13/2020 10:14:48 05/13/2020 14:22:18 Overactive urinary bladder 660796176 N32.81 Urge incon tinence of urine 79026291 N39.41 History of urinary tract infection 3914441138 107 Z87.440 [id number] Charlotte Smith MD [address] [address] 11/11/2020 11:46:55 11/11/2020 13:40:18 Overactive urinary bladder 440420885 N32.81 Urge incon tinence of urine 13405679 N39.41 [id number] Brea [facility] [address] [place] [address] 11/26/2020 10:15:12 12/02/2020 15:37:48 Overactive urinary bladder 125518915 N32.81 Nocturia 843481232 R35.1 [id number] Charlotte Smith MD [facility] [address] [place] [address] 08/03/2021 11:31:50 08/03/2021 12:09:22 Overactive urinary bladder 221378595 N32.81 Urge incon tinence of urine 11472902 N39.41 Nocturia 238942968 R35.1 [id number] ELMA Burciaga [facility] [address] 09/14/2021 10:06:36 09/14/2021 14:16:12 Overactive urinary bladder 313149758 N32.81 Urge incon tinence of urine 23274252 N39.41 Nocturia 767349496 R35.1 [id number] Brea Mc[facility] [address] [place] [address] 09/14/2021 09:30:06 09/14/2021 14:31:59 Overactive urinary bladder 123397024 N32.81 [id number] ELMA Burciaga [facility] [address] [place] [address] 11/12/2021 11:29:59 11/12/2021 12:37:25 Overactive urinary bladder 483212945 N32.81 Urge incon tinence of urine 29198543 N39.41 Nocturia 605938125 R35.1 [id number] Brea Mc[facility] [address] [place] [address] 04/09/2022 11:43:46 04/09/2022 13:38:20 Overactive urinary bladder 780958873 N32.81 [id number] Brea Bosch [facility] [address] [address] 12/06/2022 10:28:13 12/06/2022 11:24:29 Overactive urinary bladder 476545847 N32.81 [id number] ELMA Burciaga [facility] [address] [address] 04/28/2023 11:22:38 04/28/2023 12:04:03 Overactive urinary bladder 815903544 N32.81 Urge incon tinence of urine 19362485 N39.41 Nocturia 734109423 R35.1 Health Concerns Section Related Observation LastModified by Organization Detai ls LastModified Time None Recorded Concern Status LastModified by Organization Details LastModified Time None Recorded Advance Directives Directive None Recorded Payers Encounter Date Sequence Insurance Name Policy Number Policy Betancourt Covered Member ID Betancourt Member ID Guarantor Name 09/14/2021 1 [place] [employer] Patsy A Wood [id number] Patsy A Wood 09/14/2021 2 [place] [id number] Apt[place] A Wood [id number] Patsy A Wood 11/12/2021 1 [place] [employer] Patsy A Wood [id number] Patsy A Wood 11/12/2021 2 [place] [id number] Patsy A Wood [id number] Patsy A Wood 04/09/2022 1 [place] [employer] Patsy A Wood [id number] Patsy A Wood 04/09/2022 2 [place] [id number] Patsy A Wood [id number] Patsy A Wood 12/06/2022 1 [place] [employer] Patsy A Wood [id number] Patsy A Wood 12/06/2022 2 [place] [id number] Patsy A Wood [id number] Patsy A Wood 04/28/2023 1 [place] [employer] Patsy A Wood [id number] Patsy Beltrán 04/28/2023 2 [facility] [id number] Patsy Beltrán [id number] Patsy Beltrán Notes Date Note Type Note [...] to be almost every hour. ELMA Burciaga [address] [place] [address],[address], [place], [address], [facility] 09/14/2021 10:49:41 11/12/2021 text/html [...] with sjorgrens. This visit was conducted using [employer] technology. Prior to conducting our health visit, the patient and I discussed the risks, benefits and alternatives to phone visits. The patient elected to proceed with the phone visit. ELMA Burciaga [address] [place] [address],[address], [place], [address], [facility] 11/12/2021 11:50:24 12/06/2022 text/html [...] width changed Rate chaanged Resolution changed Brea Bosch [facility] 12/06/2022 11:08:58 04/28/2023 text/html HPI Notes: [...] be almost every hour. ELMA Burciaga [address] [facility],[address], [place], [address], [place] [facility] [place] [facility] 04/28/2023 11:58:40 OBGyn Episode No OBEpisode recorded.
== END 2024-04-19 14:57 | disposition home or self-care (01) ==
LOC: WOUND 14:56
PROVIDERS: PCP Physician Assistant Medical; Visit Provider Family Medicine
DX: I87.2 Venous insufficiency (chronic) (peripheral) (principal); I73.9 Peripheral vascular disease, unspecified; I89.0 Lymphedema, not elsewhere classified; L97.322 Non-pressure chronic ulcer of left ankle with fat layer exposed
CPT/HCPCS: 11042

== ENCOUNTER 2024-04-26 09:24 | Outpatient (CLI) | payer OTHER, SELFPAY ==
--- OUTSIDE RECORDS SUMMARY | 2024-04-26 09:27 | XMS_ITS | Continuity of Care Document ---
Author Organization [facility] Address [address] [place] [address] Phone Care Team Providers Care Supervisor Alteration Workroom Name Role Phone Helder Medina MD Unavailable [...] Active Procedures Procedure Date Office/Outpatient Visit, Est Complex e/m visit add on X-Ray Exam Of Foot 3v Office/Outpatient Visit, [...] Providers Copied on Encounter Office/Outpa tient Visit, Est [facility], [address], [place], [address], [place] tel:[phone] [facility], Sjogren syndrome w/ inflammatory arthritis Apr-2 3 4 Lebedoff Helder. [address], [place], [place], [facility], [place]. tel:[phone] Referring Provider: Helder Jain, [address], [place], [address]. tel:[phone] [facility], [address], [place], [address], [place] tel:[phone] [facility], No Information Oct- 0 4 Lebedoff Helder. [address], [place], [address], [place]. tel:[phone] Referring Provider: Helder Jain, [address], [place], [place], [facility]. tel:[phone] Office/Outpa tient Visit, Est [facility], [address], [place], [address], [place] tel:[phone] [facility], Sjogren syndrome w/ inflammatory arthritisPain in left foot Oct- 0 4 Lebedoff Helder. [address], [place], [address], [place]. tel:[phone] Referring Provider: Helder Jain, [address], [place], [place], [facility]. tel:[phone] Office/Outpa tient Visit, Est [facility], [address], [place], [address], [place] tel:[phone] [facility], Sjogren syndrome w/ inflammatory arthritisPrim mauri osteoarthriti s, right hand Apr-0 4 3 Lebedoff Helder. [address], [place], [address], [place]. tel:[phone] Referring Provider: Helder Jain, [address], [place], [address]. tel:[phone] Office/Outpa tient Visit, Est [facility], [address], [place], [address], [place] tel:[phone] [facility], Sicca syndrome, unspecifiedWe akness 3 Lebedoff Helder. [address], [place], [address], [place]. tel:[phone] Referring Provider: Helder Jain, [address], [place], [address]. tel:[phone] Office/Outpa tient Visit, Est [facility], [address], [place], [address], [place] tel:[phone] [facility], Sicca syndrome, unspecifiedPa in in left shoulder 2 Lebedoff Helder. [address], [place], [address], [place]. tel:[phone] Referring Provider: Helder Jain, [address], [place], [address]. tel:[phone] Office/Outpa tient Visit, Est [facility], [address], [place], [address], [place] tel:[phone] [facility], Sicca syndrome, unspecifiedDy spnea 2 Lebedoff Helder. [address], [place], [address], [place]. tel:[phone] Referring Provider: Helder Jain, [address], [place], [address]. tel:[phone] Office/Outpa tient Visit, Est [facility], [address], [place], [address], [place] tel:[phone] [facility], Sicca syndrome, unspecifiedOt her termination clerk (current) drug therapyPrimar y OA of right handDyspnea 1 Adam Pendleton. [address], [place], [address], [place]. tel:[phone] Referring Provider: Helder Jain, [address], [place], [address]. tel:[phone] Office/Outpa tient Visit, New [facility], [address], [place], [address], [place] tel:[phone] [facility], Sicca syndrome, unspecifiedPa in in rt ankleOther termination clerk (current) drug therapy 1 Adam Pendleton. [address], [place], [address], [place]. tel:[phone] Referring Provider: Helder Jain, [address], [place], [address]. tel:[phone] [facility], [address], [place], [address], [place] tel:[phone] [facility] No Information 1 Mo Sullivan. [facility] [address] [facility] [address], [place], [address], [place]. tel:[phone] Family History Family Member Type Diagnosis Age At Onset No Information Immunizations Vaccine Date Status Comments COVID-19 Moderna administered Source: Ot er Provider COVID-19 Pfizer administered Note: 1 ; Source: Other Provider Payers Payer name Insurance type Covered green party ID Authoriza tion(s) [employer] Medicare Adv [id number] MB [id number] Social History Type Description Quantity Date Captured Comments Alcohol Use Details Caffeine Use Details Tobacco Use Status Current non-smoker Smoking Status Never smoker She gabi es in [place] with her . She is retired. She [...] Percentile BMI percentile Pulse Ox Inhaled Ox 9:51 AM 61.81 in 63.231 kg (139.40 lbs) 25.6 5 kg/m eter (2) 148/75 mm[Hg] 97.80 F Chief Complaint And Reason For Visit No Information Reason For Referral Reason For Referral No Information Plan Of Treatment Date Type Action Status Appointment Patsy Beltrán BOOKED Future Order: Radiology Order Fo ot X-ray; Complete (3+ views) ([id number]), Sent on: Sent History Of Present Illness Encounter Date Complaint History Of Prese nt Illness No Information Functional Status Date Functional Assessmen t No Information Instructions Date Instruction Additional Infor lurdes Continue prednisone 10 mg every other dayContinue pilocarpine as needed Related to Sjogren syndrome w/ inflammatory arthritis [...] diagnosis of 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 This appears to be well controlled currently. Ideally, this would not have been treated with snf prednisone, but as she has been on it for nearly 4 decades it cannot be tapered off quickly, if at all. She is on an equivalent of 5 mg daily dosing, which is not entirely benign, but also does not have the severe side effects seen at higher prednisone doses. We will plan to continue it indefinitely unless intolerable side effects develop. Patient Care Teams Name Effective Dates (start - stop) Status Members No Information
--- OUTSIDE RECORDS SUMMARY | 2024-04-26 09:27 | XMS_ITS | Clinical Summary ---
Author Organization [facility] Address [place], [place] [address] Care Team Providers Care Car Trimmer Name Role Phone Kd Restrepo MD Unavailable [phone] Jose Napier PANettieC Primary Care Provider [phone] Charlotte Smith MD Unavailable [phone] Charlotte Springer MD Unavailable [phone] Allergies Active Allergy Reactions Criticality Noted Date Comments Amoxicillin 01/19/2007 Aspirin Rash,Itching 01/20/2006 Atorvastatin Myalgia 12/27/2014 Blood-Group Specific Substance Other - Describe In Comment Field High 09/01/2016 Patient has Anti-D. Blood product orders may be delayed. Draw one red top and two purple top tubes for all Type and Screen/Type and Crossmatch orders. P-Zaga-Doppotdzm-Propol-Eld erb *Unknown 02/28/2024 Ciprofloxacin Rash 05/31/2012 Clindamycin [...] SOB (shortness of breath) 01/25/2020 Fatigue 01/25/2020 residential current use of systemic steroids 09/27 Prediabetes [...] Date Anticoagulation monitoring, INR range 2-3 [Z79.01]; Forbes Target 2.5-3.0 12/06/2016 1 Pessary maintenance 02/25/2016 [...] Description 04/09/2024 9:30 AM CDT Office Visit [facility] [address] [facility] [address] [place] [phone] Charlotte Springer MD Follow Up ( Venous stasis ulcer of ankle, left ) 04/09/2024 Travel 04/05/2024 Travel 04/02/2024 Telephone [facility] [address] [place] [phone] Charlotte Springer MD 03/30/2024 Telephone [facility] [address] [place] [phone] Charlotte Springer MD Questions 03/21/2024 Telephone [facility] [address] [place] [phone] Charlotte Springer MD status of left wound ankle 03/01/2024 3:30 PM CDT Office Visit [facility] [address] [facility] [place] [address] Olvin Haji MD Consult (CT, US & MRI - spot on pancreas) 03/01/2024 Travel 02/28/2024 10:00 AM CDT Office Visit [facility] [address] [place] [address] Tomas Page OD Eye Exam (CEE) 02/28/2024 Travel 02/20/2024 Telephone [facility] [address] [place] [phone] Charlotte Springer MD Results 02/17/2024 10:56 AM CDT - 02/17/2024 11:59 PM CDT Hospital Encounter [facility] [address] [place] [address] Charlotte Springer MD Venous stasis ulcer of ankle, left (HC) 02/16/2024 8:00 AM CDT Procedure Only [facility] [address] [place] [phone] Charlotte Springer MD 02/16/2024 6:57 AM CDT - 02/16/2024 11:59 PM CDT Hospital Encounter [facility] [address] [place] [address] Charlotte Springer MD Venous stasis ulcer of ankle, left (HC) 02/16/2024 Travel 02/10/[address] [phone] Charlotte Springer MD Pre Procedure Instructions from Last 3 Months Immunizations Name Administration Dates Next Due AMB INFLUENZA IIV3 (AGE 65+ YRS) PF (Flu Clinic Only) 03/23/2017 AMB Influenza, IIV3 (Age >=3 years) Preserve Free (Flu Clinic Only) 04/08/2009 AMB Influenza, IIV3 (Age >=3 years)(Flu Clinic Only) 04/06/2013,04/16/2011,04/24/2008 COVID-19 vaccine (SoundFit 30mcg/0.3mL) PF, MDV 09/02/2020,08/12/2020 Influenza A (H1N1), [...] Info) Description 05/04/2024 7:30 AM CDT Appointment [facility] [place] [address] Charlotte Springer MD [address] [place], [place] [id number] 05/10/2024 2:00 PM KRAFT DIGESTER OPERATOR Ancillary Procedure [facility] [place] [address] [place] [address] 05/18/2024 10:30 AM KRAFT DIGESTER OPERATOR Office Visit [facility] [address] [place] [phone] 08/30/2024 10:00 AM KRAFT DIGESTER OPERATOR Office Visit [facility] [address] [place], [place] [phone] [place] [address] [address] [place], [place] [address] Health Maintenance Due Date Last Done Comments [...] 01/13/2016, 12/18/2010 Medical Devices Implanted Type Area Technology Development Intern Device Identifier Shelf Expiration Date Model / Serial / Lot Lead Kit 4.32mm Spacing 28cm Length Interstim - [id number] Implanted:Qty: 1 on 04/01/2020 by Charlotte Smith MD at [facility] N/A: Sacrum Medtronic Pain Therapy 09/30/2021 [id number] / / [id number] Stimulator 7.7mm 14cc Interstim Ii - [id number] Implanted:Qty: 1 on 04/01/2020 by Charlotte Smith MD at [facility] N/A: Sacrum Medtronic Pain Therapy 03/31/2021 [id number] / [id number] / Description:PIN [id number] Procedures Procedure Name Priority Date/Time Associated Diagnosis Comments US VENOUS LOWER EXTREMITY LEFT Routine 02/17/2024 11:46 AM CDT Venous stasis ulcer of ankle, left (HC) US CLOSURE/VEIN MAPPING LT NBA 02/16/2024 9:11 AM CDT Venous stasis ulcer of ankle, left (HC) XR DXA BONE DENSITY 2 SITES AXIAL Routine 07/02/2019 11:48 AM KRAFT DIGESTER OPERATOR Osteopenia of multiple sites from Last 3 Months or Most Recently Relevant to Health Maintenance Results * US VENOUS LOWER EXTREMITY LEFT (02/17/2024 11:46 AM CDT) Anatomical Region Laterality Modality LEGS, LEG L, Abdomen Ultrasound 02/17/2024 11:1 7 AM CDT Narrative 02/17/2024 5:40 PM CDT VASCULAR ULTRASOUND REPORT RODERICK HEATON Accession#: ?? [id number] : ?1940 ??Study Date: ?? 02/17/2024 11:17:13 AM Age: ?83 years ?? Tech: ? AMS Gender: F ?Referring MD: CHARLOTTE SPRINGER Site: [facility] Vascular [facility] Study performed: ?Duplex US DVT study, [...] Accreditation Commission (IAC/Vascular), www.intersocietal.org/vascular Report generated by Nobl. ??Final ?? Procedure Note Dejan Tolentino MD - 02/17/2024 VASCULAR ULTRASOUND REPORT RODERICK HEATON : 1940 Study Date: 02/17/2024 11:17:13 AM Age: 83 years Tech: AMS Gender: F Referring MD: CHARLOTTE SPRINGER Site: 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 FINDINGS: The LT GSV is occluded from [...] theIntersocietal Accreditation Commission (IAC/Vascular),www.intersocietal.org/vascular Report generated by Nobl. Final Charlotte Springer MD US * US CLOSURE/VEIN MAPPING LT (02/16/2024 9:11 AM CDT) Narrative Osiris Millard - 02/16/2024 9:11 AM CDT The result for this exam is either scanned and attached to this order or are included in the ordering provider's NOTES from the patient's Office Visit or Surgical procedure from this date. Charlotte Springer MD US * (ABNORMAL) XR DXA BONE DENSITY 2 SITES AXIAL (07/02/2019 11:48 AM KRAFT DIGESTER OPERATOR) Anatomical Region Laterality Modality Spine, HIPS, HIPL, HIPR Other Narrative 07/06/2019 11:01 AM KRAFT DIGESTER OPERATOR Please see scanned document for results of this study. Rakel Connor DO DEXA from Last 3 Months or Most Recently Relevant to Health Maintenance Advance Directives Documents on File Type Date Recorded Patient Artist Suspect Expl anation Healthcare Directive 07/19/2016 2:58 PM [...] 8:45 AM 09/01/2016 4:04 PM Care Teams Car Trimmer Relationship Specialty Start Date End Date Jose Napier PA-C [address] [place] [address] PCP - General Physician Meat Soaker 03/01/24 Kd Restrepo MD Endocrinology 11/24/11 Charlotte Smith MD [address] [place] [address] Surgery - Urology 03/01/24 Charlotte Springer MD [address] [place] [address] Surgery - Vascular 03/21/24
--- OUTSIDE RECORDS SUMMARY | 2024-04-26 09:28 | XMS_ITS | Continuity of Care Document ---
Author Organization [facility] Address [address] [place] [address] Phone Care Team Providers Care Director Of Hospitality Name Role Phone Usha Dickinson Unavailable Unavailable [...] on Encounter [facility], [address], [facility] [place], [id number], [place] tel:[phone] No Information [facility]. [facility], [address], [place], [place], [address] , [place]. [phone] Office/Outpat ient Visit,Est, Mod [facility], [address], [place], [place], [address], [place] tel:[phone] [facility] Other forms of scoliosis, thoracolumbar regionL2 wedge compression fracture, initial encounter for closed fractureSpondy lolisthesis, lumbar region 0 Puente Usha. [facility], [address], [place], [place], [id number] , [place]. tel:[phone] Referring Provider: Rakel Arvizu, [facility] [address] [place], [address]. tel:[phone] Office/Outpat ient Visit,Est, Mod [facility], [address], [facility] [place], [id number], [place] tel:[phone] [facility] L2 wedge compression fracture, initial encounter for closed fractureOther forms of scoliosis, thoracolumbar regionSpondylo listhesis, lumbar region 0 Kwame Kerr. [facility], [address], [place], [place], [address] , . tel:[phone] Referring Provider: Rakel Arvizu Simple [address] [place], [address]. tel:[phone] Office/Outpat ient Visit,[facility], [facility], [address], [facility] [place], [address], [place] tel:[phone] [facility] [place] L2 wedge compression fracture, initial encounter for closed fractureOther forms of scoliosis, thoracolumbar regionSpondylo listhesis, lumbar region 0 Kwame Kerr. [facility], [address], [place], [place], [address] , [place]. tel:[phone] Referring Provider: Rakel Arvizu [facility] [address] [place], [address]. tel:[phone] Family History Family Member Type Diagnosis Age At Onset No Information Payers Payer name Insurance type Covered democrat ID Authoralethaa tishannon(s) Medicare MB [id number] [facility] [id number] [facility] [id number] Social History Type Description Quantity Date Captured [...]
== END 2024-04-26 09:25 | disposition home or self-care (01) ==
LOC: WOUND 09:24
PROVIDERS: PCP Physician Assistant Medical; Visit Provider Nurse Practitioner Family
DX: I87.2 Venous insufficiency (chronic) (peripheral) (principal); I73.9 Peripheral vascular disease, unspecified; L97.322 Non-pressure chronic ulcer of left ankle with fat layer exposed; I89.0 Lymphedema, not elsewhere classified
CPT/HCPCS: 29581; 97597

== ENCOUNTER 2024-04-30 14:14 | Outpatient (CLI) | payer OTHER, SELFPAY ==
--- OUTSIDE RECORDS SUMMARY | 2024-04-30 14:16 | XMS_ITS | Continuity of Care Document ---
Author Organization [facility] Address [address] [place] [address] Phone Care Team Providers Care Inspector Tubes Name Role Phone Usha Dickinson Unavailable Unavailable [...] Encounter [facility], [address], [facility] [place], [id number], [place] tel:[phone] No Information [facility]. [facility], [address], [place], [place], [address] , [place]. [phone] Office/Outpat ient Visit,Est, Mod [facility], [address], [place], [place], [address], [place] tel:[phone] [facility] Other forms of scoliosis, thoracolumbar regionL2 wedge compression fracture, initial encounter for closed fractureSpondy lolisthesis, lumbar region 0 Puente Usha. [facility], [address], [place], [place], [address] , [place]. tel:[phone] Referring Provider: Rakel Arvizu, [employer] [facility] [address] [place], [address]. tel:[phone] Office/Outpat ient Visit,Est, Mod [facility], [address], [facility] [place], [id number], [place] tel:[phone] [facility] L2 wedge compression fracture, initial encounter for closed fractureOther forms of scoliosis, thoracolumbar regionSpondylo listhesis, lumbar region 0 Kwame Kerr. [facility], [address], [place], [place], [address] , . tel:[phone] Referring Provider: Rakel Arvizu [facility] [address] [place], [address]. tel:[phone] Office/Outpat ient Visit,[facility], [facility], [address], [facility] [place], [address], [place] tel:[phone] [facility] [place] L2 wedge compression fracture, initial encounter for closed fractureOther forms of scoliosis, thoracolumbar regionSpondylo listhesis, lumbar region 0 Kwame Kerr. [facility], [address], [place], [place], [address] , [place]. tel:[phone] Referring Provider: Rakel Arvizu [employer] [address] [place], [address]. tel:[phone] Family History Family Member Type Diagnosis Age At Onset No Information Payers Payer name Insurance type Covered republican ID Authoralethaa tishannon(s) Medicare MB [id number] [facility] [id number] [facility] [id number] Social History Type Description Quantity Date Captured [...]
--- OUTSIDE RECORDS SUMMARY | 2024-04-30 14:16 | XMS_ITS | Continuity of Care Document ---
Author Organization [facility] Address [address] [place] [address] Phone Care Team Providers Care Anaesthetic Technician Name Role Phone Helder Medina MD [...] Antibodies Dna Antibody, Single Strand Dna Antibody, [place] Nuclear Antigen Antibodies Rheumatoid Factor, IGM Rheumatoid Factor, IGG, IGA Advance Directives Directive Yes / No Effective Date File Name No Information Encounters Encounter Description Practice Location Reason(s) For Visit Diagnoses Date Provider Providers Copied on Encounter Office/Outpa tient Visit, Est [facility], [address], [place], [address], [place] tel:[phone] [facility], Sjogren syndrome w/ inflammatory arthritis Apr-2 3 4 Lebedoff Helder. [address], [place], [place], [facility], [place]. tel:[phone] Referring Provider: Helder Jain, [address], [place], [address]. tel:[phone] [facility], [address], [place], [address], [place] tel:[phone] [facility], No Information Oct- 0 4 Lebed[facility] Helder. [address], [place], [address], [place]. tel:[phone] Referring Provider: Helder Jain, [address], [place], [place], [facility]. tel:[phone] Office/Outpa tient Visit, Est [facility], [address], [place], [address], [place] tel:[phone] [facility], Sjogren syndrome w/ inflammatory arthritisPain in left foot Oct- 0 4 Lebed[facility] Helder. [address], [place], [address], [place]. tel:[phone] Referring Provider: Helder Jain, [address], [place], [place], [facility]. tel:[phone] Office/Outpa tient Visit, Est [facility], [address], [place], [address], [place] tel:[phone] [facility], Sjogren syndrome w/ inflammatory arthritisPrim mauri osteoarthriti s, right hand Apr-0 4 3 Lebedoff Helder. [address], [place], [address], [place]. tel:[phone] Referring Provider: Helder Jain, [address], [place], [address]. tel:[phone] Office/Outpa tient Visit, Est [facility], [address], [place], [address], [place] tel:[phone] [facility], Sicca syndrome, unspecifiedWe akness 3 Lebedoff Helder. [address], [place], [address], [place]. tel:[phone] Referring Provider: Helder Jain, [address], [place], [address]. tel:[phone] Office/Outpa tient Visit, Est [facility], [address], [place], [address], [place] tel:[phone] [facility], Sicca syndrome, unspecifiedPa in in left shoulder 2 Lebedoff Helder. [address], [place], [address], [place]. tel:[phone] Referring Provider: Helder Jain, [address], [place], [address]. tel:[phone] Office/Outpa tient Visit, Est [facility], [address], [place], [address], [place] tel:[phone] [facility], Sicca syndrome, unspecifiedDy spnea 2 Lebedoff Helder. [address], [place], [address], [place]. tel:[phone] Referring Provider: Helder Jain, [address], [place], [address]. tel:[phone] Office/Outpa tient Visit, Est [facility], [address], [place], [address], [place] tel:[phone] [facility], Sicca syndrome, unspecifiedOt her intermodal truck driver (current) drug therapyPrimar y OA of right handDyspnea 1 Adam Pendleton. [address], [place], [address], [place]. tel:[phone] Referring Provider: Helder Jain, [address], [place], [address]. tel:[phone] Office/Outpa tient Visit, New [facility], [address], [place], [address], [place] tel:[phone] [facility], Sicca syndrome, unspecifiedPa in in rt ankleOther intermodal truck driver (current) drug therapy 1 Adam Pendleton. [address], [place], [address], [place]. tel:[phone] Referring Provider: Helder Jain, [address], [place], [address]. tel:[phone] [facility], [address], [place], [address], [place] tel:[phone] [facility] No Information 1 Mo Sullivan. [facility] [address] [facility] [address], [place], [address], [place]. tel:[phone] Family History Family Member Type Diagnosis Age At Onset No Information Immunizations Vaccine Date Status Comments COVID-19 Moderna administered Source: Ot er Provider COVID-19 Pfizer administered Note: 1 ; Source: Other Provider Payers Payer name Insurance type Covered alliance party ID Authoriza tion(s) [employer] Adv [id number] MB [id number] Social History Type Description Quantity Date Captured Comments Alcohol Use Details Caffeine Use Details Tobacco Use Status Current non-smoker Smoking Status Never smoker She gabi es in [place] with her . She is retired. She [...] Order Fo ot X-ray; Complete (3+ views) (06130), Sent on: Sent History Of Present Illness [...] diagnosis of Sjogren's syndrome manifested as + TINA/SSA/DETASSELER, 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 This [...]
--- OUTSIDE RECORDS SUMMARY | 2024-04-30 14:16 | XMS_ITS | Clinical Summary ---
Author Organization [facility] Address [place], [place] [address] Care Team Providers Care Vision Specialist Name Role Phone Kd Restrepo MD Unavailable [phone] Jose Napier PANettieC Primary Care Provider [phone] Charlotte Smith MD Unavailable [phone] Charlotte Springer MD Unavailable [phone] Allergies Active Allergy Reactions Criticality Noted Date Comments Amoxicillin 01/19/2007 Aspirin Rash,Itching 01/20/2006 Atorvastatin Myalgia 12/27/2014 Blood-Group Specific Substance Other - Describe In Comment Field High 09/01/2016 Patient has Anti-D. Blood product orders may be delayed. Draw one red top and two purple top tubes for all Type and Screen/Type and Crossmatch orders. X-Xvph-Lkeudgrvb-Propol-Eld erb *Unknown 02/28/2024 Ciprofloxacin Rash 05/31/2012 Clindamycin [...] SOB (shortness of breath) 01/25/2020 Fatigue 01/25/2020 penitentiary current use of systemic steroids 09/27 Prediabetes [...] Date Anticoagulation monitoring, INR range 2-3 [Z79.01]; [place] [employer] 2.5-3.0 12/06/2016 1 Pessary maintenance 02/25/2016 09/28/19 20 Anticoagulation monitoring, goal range 2.0-2.6 09/19/2013 01/09/2018 Abnormal stress test 11/17/2010 011 Routine general medical exam ination at a health care facility 07/12/2009 09/28/2019 Overview (12/06/2012): Normal CT angiogram 11/2010 Hip pain 05/06/2008 07/09/2009 Onychomycosis 05/06/2008 08/27/2008 HX OF VENOUS THROMBOSIS AND EMBOLISM 11/09/2006 12/06/2012 Bilateral pulmonary embolism 10/11/2006 11/18/2017 AFTERCARE, LONG-TERM USE, OR DICATIONS NEC-PLAQUENIL 10/22/2003 Encounters Date Type Department Care Team Description 04/09/2024 9:30 AM CDT Office Visit [facility] [address] [facility] [address] [place] [phone] Charlotte Springer MD Follow Up ( Venous stasis ulcer of ankle, left ) 04/09/2024 Travel 04/05/2024 Travel 04/02/2024 Telephone [facility] [address] [place] [phone] Charlotte Springer MD 03/30/2024 Telephone [facility] [address] [place] [phone] Charlotte Springer MD Questions 03/21/2024 Telephone [facility] [address] [place] [phone] Charlotte Springer MD status of left wound ankle 03/01/2024 3:30 PM CDT Office Visit [facility] [address] [place] [address] Olvin Haji MD Consult (CT, US & MRI - spot on pancreas) 03/01/2024 Travel 02/28/2024 10:00 AM CDT Office Visit [facility] [address] [place] [address] Tomas Page OD Eye Exam (CEE) 02/28/2024 Travel 02/20/2024 Telephone [facility] [address] [place] [phone] Charlotte Springer MD Results 02/17/2024 10:56 AM CDT - 02/17/2024 11:59 PM CDT Hospital Encounter [facility] [address] [place] [address] Charlotte Springer MD Venous stasis ulcer of ankle, left (HC) 02/16/2024 8:00 AM CDT Procedure Only [facility] [address] [place] [phone] Charlotte Springer MD 02/16/2024 6:57 AM CDT - 02/16/2024 11:59 PM CDT Hospital Encounter [facility] [address] [place] [address] Charlotte Springer MD Venous stasis ulcer of ankle, left (HC) 02/16/2024 Travel 02/10/[address] [phone] Charlotte Springer MD Pre Procedure Instructions from Last 3 Months Immunizations Name Administration Dates Next Due AMB INFLUENZA IIV3 (AGE 65+ YRS) PF (Flu Clinic Only) 03/23/2017 AMB Influenza, IIV3 (Age >=3 years) Preserve Free (Flu Clinic Only) 04/08/2009 AMB Influenza, IIV3 (Age >=3 years)(Flu Clinic Only) 04/06/2013,04/16/2011,04/24/2008 COVID-19 vaccine ([employer] 30mcg/0.3mL) PF, MDV 09/02/2020,08/12/2020 Influenza A (H1N1), [...] Info) Description 05/04/2024 7:30 AM CDT Appointment [facility] [place] [address] Charlotte Springer MD [address] [place], [place] [id number] 05/10/2024 2:00 PM SIGN OUT CLERK Ancillary Procedure [facility] [address] [place] [address] 05/18/2024 10:30 AM SIGN OUT CLERK Office Visit [facility] [address] [place] [phone] 08/30/2024 10:00 AM SIGN OUT CLERK Office Visit [facility] [address] [place], [place] [phone] [place] [address] [address] [place], [place] [phone] Health Maintenance Due Date Last Done Comments [...] 01/13/2016, 12/18/2010 Medical Devices Implanted Type Area Alarm Adjuster Device Identifier Shelf Expiration Date Model / Serial / Lot Lead Kit 4.32mm Spacing 28cm Length Interstim - [id number] Implanted:Qty: 1 on 04/01/2020 by Charlotte Smith MD at [facility] N/A: Sacrum [employer] Pain Therapy 09/30/2021 [id number] / / [id number] Stimulator 7.7mm 14cc Interstim Ii - [id number] Implanted:Qty: 1 on 04/01/2020 by Charlotte Smith MD at [facility] N/A: Sacrum [employer] Pain Therapy 03/31/2021 [id number] / [id number] / Description:PIN [id number] Procedures Procedure Name Priority Date/Time Associated Diagnosis Comments US VENOUS LOWER EXTREMITY LEFT Routine 02/17/2024 11:46 AM CDT Venous stasis ulcer of ankle, left (HC) US CLOSURE/VEIN MAPPING LT NBA 02/16/2024 9:11 AM CDT Venous stasis ulcer of ankle, left (HC) XR DXA BONE DENSITY 2 SITES AXIAL Routine 07/02/2019 11:48 AM SIGN OUT CLERK Osteopenia of multiple sites from Last 3 Months or Most Recently Relevant to Health Maintenance Results * US VENOUS LOWER EXTREMITY LEFT (02/17/2024 11:46 AM CDT) Anatomical Region Laterality Modality LEGS, LEG L, Abdomen Ultrasound 02/17/2024 11:1 7 AM CDT Narrative 02/17/2024 5:40 PM CDT VASCULAR ULTRASOUND REPORT RODERICK HEATON Accession#: ?? [id number] : ?1940 ??Study Date: ?? 02/17/2024 11:17:13 AM Age: ?83 years ?? Tech: ? AMS Gender: F ?Referring MD: [place] SPRINGER Site: [facility] Study performed: ?Duplex US DVT study, [...] Accreditation Commission (IAC/Vascular), www.intersocietal.org/vascular Report generated by [employer]. ??Final ?? Procedure Note Dejan Tolentino MD - 02/17/2024 VASCULAR ULTRASOUND REPORT RODERICK HEATON : 1940 Study Date: 02/17/2024 11:17:13 AM Age: 83 years Tech: AMS Gender: F Referring MD: [place] SPRINGER Site: [facility] Study performed: Duplex US DVT [...] prior study 12/05/2023, Occluded GSV s/p venous renjcmhcq17/15/2024. FINDINGS: The LT GSV is occluded from [...] theIntersocietal Accreditation Commission (IAC/Vascular),www.intersocietal.org/vascular Report generated by [employer]. Final Charlotte Springer MD US * US [...] DENSITY 2 SITES AXIAL (07/02/2019 11:48 AM SIGN OUT CLERK) Anatomical Region Laterality Modality Spine, HIPS, HIPL, HIPR Other Narrative 07/06/2019 11:01 AM SIGN OUT CLERK Please see scanned document for results of this study. Rakel Connor DO DEXA from Last 3 Months or Most Recently Relevant to Health Maintenance Advance Directives Documents on File Type Date Recorded Patient Physician Advisor Expl anation Healthcare Directive 07/19/2016 2:58 PM [...] 8:45 AM 09/01/2016 4:04 PM Care Teams Vision Specialist Relationship Specialty Start Date End Date Jose Napier PA-C [address] [place] [address] PCP - General Physician Time Study Engineer 03/01/24 Kd Restrepo MD Endocrinology 11/24/11 Charlotte Smith MD [address] [place] [address] Surgery - Urology 03/01/24 Charlotte Springer MD [address] [place] [address] Surgery - Vascular 03/21/24
--- OUTSIDE RECORDS SUMMARY | 2024-04-30 14:16 | XMS_ITS | Data Portability ---
Author Organization 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 Plan of Treatment Reminders Order Date Submit Date Provider Last Modified By Organization Details Last Modified Time Details Appointments ESTABLISH ED 20 2024 10:40A M ELMA Burciaga Not available Not available Not available ESTABLISH ED 45 2024 11:00A M DEMETRI Denis Not available Not available Not available Lab None recorded. Referral None recorded. Procedures None recorded. Surgeries None recorded. Imaging None recorded. Medication Orders None recorded. Patient TargetsNo targets recorded. Patient Instructions Encounter Date Encounter Id Patient Instructions Last Modified By Organization Details Last Modified Time 09/14/2021 [id number] Test each progra m for at least 2 weeks, adjusting amplitude as needed. May remain on a program as long as it is effective. Return as needed for reprogramming. [email or web address] Not available 09/14/2021 10:07:26 Patient states t hat Gemtessa samples were very effective, but it is not covered by her insurance. She was also given a rx for Myrbetriq. [email or web address] Not available 09/14/2021 10:08:49 11/12/2021 [id number] Over Active Blad betty (OAB): -Managed with alberto. Content with treatment. -Reprogramming as needed with Demetri. -The OAB Pathway was reviewed, including fluid restriction, bladder irritants, and pelvic floor physical therapy, and OAB medications. Avoid anticholenergics with sjogrens. -Gemtesa too expensive. Discontinued myrbetriq 50 mg due to side effects. -Follow up in 6 months with Demetri, sooner if issues Time on phone: 8 minutes [email or web address] Not available 11/12/2021 11:46:55 04/09/2022 [id number] Test each progra m for at least 2 weeks, adjusting amplitude as needed. May remain on a program as long as it is effective. Return as needed for reprogramming. [email or web address] Not available 04/09/2022 12:34:22 Patient states t hat Gemtesa samples were effective, but the rx was too expensive, so she stopped taking. She would like to try the Gemtesa again, but wonders of it is ok t take every other day, to spread the prescription out, and decrease the expense. I will ask Afsaneh Bui, PAC. [email or web address] Not available 04/09/2022 12:37:43 12/06/2022 [id number] Test each progra m for at least 2 weeks, adjusting amplitude as needed. May remain on a program as long as it is effective. Return as needed for reprogramming. [email or web address] Not available 12/06/2022 10:55:41 04/28/2023 [id number] Over Active Blad betty (OAB): -Managed with [...] color -advantus YELLOW yellow Not Available [facility] [address], [place], [address], 09/14/2021 10:41:46 09/15/19 22 09/14/2021 UA DIP CS ADVAN TUS appearance -advantus CLEAR clear Not Available [facility] [address] [facility] [address], [place], [address], 09/14/2021 10:41:46 09/15/19 22 09/14/2021 UA DIP CS ADVAN TUS glucose -advantus NEGATI VE mg/dL negati ve Not Available [place] [facility] [address] [facility] [address], [place], [address], 09/14/2021 10:41:46 09/15/19 22 09/14/2021 UA DIP CS ADVAN TUS bilirubin -advantus NEGATI VE negati ve Not Available [facility] [address] [facility] [address], [place], [address], 09/14/2021 10:41:46 09/15/19 22 09/14/2021 UA DIP CS ADVAN TUS ketones -advantus NEGATI VE mg/dL negati ve Not Available [place] [facility] [address] [facility] [address], [place], [address], 09/14/2021 10:41:46 09/15/19 22 09/14/2021 UA DIP CS ADVAN TUS sp. gravity -advantus 1.010 1.010- 1.025 Not Available [facility] [address] [place] [address] [address], [place], [address], 09/14/2021 10:41:46 09/15/19 22 09/14/2021 UA DIP CS ADVAN TUS pH -advantus 6.0 5.0-8. 0 Not Available [place] [facility] [address] [facility] [address], [place], [address], 09/14/2021 10:41:46 09/15/19 22 09/14/2021 UA DIP CS ADVAN TUS protein -advantus NEGATI VE mg/dL negati ve Not Available [facility] [address] [facility] [address], [place], [address], 09/14/2021 10:41:46 09/15/19 22 09/14/2021 UA DIP CS ADVAN TUS urobilinogen -advantus 0.2 normal Not Available [facility] [address] [facility] [address], [place], [address], 09/14/2021 10:41:46 09/15/19 22 09/14/2021 UA DIP CS ADVAN TUS nitrites -advantus NEGATI VE negati ve Not Available [facility] [address] [place] [address] [address], [place], [address], 09/14/2021 10:41:46 09/15/19 22 09/14/2021 UA DIP CS ADVAN TUS blood -advantus SMALL negati ve abnormal Not Available [facility] [address] [place] [address] [address], [place], [address], 09/14/2021 10:41:46 09/15/19 22 09/14/2021 UA DIP CS ADVAN TUS leukocytes -advantus NEGATI VE negati ve Not Available [facility] [address] [place] [address] [address], [place], [address], 09/14/2021 10:41:46 09/15/19 22 09/14/2021 UA DIP CS ADVAN TUS performed by Bibi Ruiz Not Available [place] [address] [facility] [address], [place], [address], 09/14/2021 10:41:46 09/15/19 22 09/14/2021 UA DIP CS ADVAN TUS total urine volume (mL) 20cc /mL ----- ----- ----- ----- ----- ----- ----- ----- ----- ----- ----- ----- ----- ----- ---- *Plea se note the follo wing minim um quant [...] ----- ----- ----- ----- ---- Not Available [place] [facility] [address] [place] [address], [place], [address], 09/14/2021 10:41:46 09/15/19 22 09/14/2021 UA MICRO SCOPI C U-WBC 0 - 2 [hpf] 0 - 2 Not Available [facility] [address] [place] [address], [place], [address], 09/14/2021 10:41:47 09/15/19 22 09/14/2021 UA MICRO SCOPI C U-RBC 0 - 2 [hpf] 0 - 2 Not Available [facility] [address] [place] [address], [place], [address], 09/14/2021 10:41:47 09/15/19 22 09/14/2021 UA MICRO SCOPI C bacteria Small [hpf] negati ve abnormal Not Available [facility] [address] [place] [address], [place], [address], 09/14/2021 10:41:47 09/15/19 22 09/14/2021 UA MICRO SCOPI C squamous epi Small /lpf negati ve,sma ll Not Available [facility] [address] [place] [address], [place], [address], 09/14/2021 10:41:47 Result Notes None recorded. 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 0 09:58:21 Gastroeso phageal reflux disease 175533018 Active 2019 Daphne Eddisamra felix, [facility] 0 09:58:28 Hyperlipi demia 57841090 Active 2019 Daphne Eddisamra felix, [facility] 0 09:58:36 Heart disease 17001827 Active 2022 Radhika Mathis [facility], [facility] 3 11:27:33 Problem Notes None recorded. Procedures Surgical History Date Name Laterality Status Provider Name and Address Organization Details Recorded Time 08/20/19 25 COMPLEX VISIT active ELMA Burciaga [address] [place] [address],[address], [address], [facility] 04/10/2024 11:39:57 08/20/19 25 Bladder Scan active ELMA Burciaga [address] [place] [address],[address], [address], [facility] 04/10/2024 11:41:06 04/28/20 23 Sacral neuromodulation w/o reprogramming completed ELMA Burciaga [address] [place] [address],[address], [address], [facility] 04/28/2023 11:57:28 04/28/20 23 Bladder Scan completed Radhika Mathis [facility] 04/28/2023 11:36:21 12/07/19 23 Sacral neuromodulation w/o reprogramming completed Demetri Bosch [facility] 12/06/2022 11:08:45 04/09/20 22 Sacral Stimulator Reprogramming completed Demetri Bosch [facility] 04/09/2022 12:49:34 09/15/19 22 Bladder Scan completed Merry Ocampo [facility] 09/14/2021 10:25:15 09/15/19 22 Sacral neuromodulation w/o reprogramming completed Demetri Bosch [facility] 09/14/2021 10:15:12 08/03/19 22 Past Data Reviewed completed Charlotte Smith MD [address], [place], [address], [facility] 08/03/2021 08:29:52 08/03/19 22 Bladder Scan completed Usha Corado [facility] 08/03/2021 11:50:03 11/27/19 21 Sacral Stimulator Reprogramming completed Demetri Bosch [facility] 11/27/2020 12:44:01 09/17/19 20 Implant neuroelectrodes completed Not Available [facility] 12/13/2019 18:11:39 11/29/19 19 Insert bladder catheter completed Not Available [facility] 12/13/2019 18:11:39 11/14/19 15 Colonoscopy completed Lucinda Nuñez [facility] 11/11/2020 11:57:08 11/29/19 09 Total hip arthroplasty completed Not Available [facility] 12/13/2019 18:11:39 11/29/19 00 Unlisted procedure breast completed Not Available [facility] 12/13/2019 18:11:39 Appendectomy add-on completed Not Available [facility] 12/13/2019 18:11:39 Imaging Results None recorded. Procedure Notes None recorded. Medical Equipment None Reported. Allergies Allergen ID Allergen Name Allergen Category Reaction Reaction Severity Criticality Documentation Date Start Date Code Code System Note Provider Name and Address Organization Details Recorded Time 19861108 Product containin g nitroimid azole (product) medicatio n Not available Not available Not available 12/12/2019 77409 7004 SNOMED Not Available [facility] 0 23:50:45 19861202 sulindac medicatio n Not available Not available Not available 12/12/2019 86727 RxNorm Not Available [facility] 0 23:50:45 19870101 Medicinal product containin g penicilli n and acting as antibacte rial agent (product) medicatio n itching Not available Not available 12/12/2019 40750 05 SNOMED Not Available [facility] 0 23:50:45 758161 atorvasta tin medicatio n Not available Not available Not available 12/12/2019 64787 RxNorm Not Available [facility] 0 23:50:45 221029 tetracycl ine medicatio n Not available Not available Not available 12/12/2019 39539 RxNorm Not Available [facility] 0 23:50:45 180884 alendrona te sodium medicatio n Not available Not available Not available 12/12/201948849 2 RxNorm Not Available [facility] 0 23:50:45 966479 amoxicill in medicatio n Not available Not available Not available 12/12/2019 723 RxNorm Not Available [facility] 0 23:50:45 798730 oxybutyni n chloride Not available dizziness Not available Not available 12/12/2019 21950 RxNorm fatig ue Not Available [facility] 0 23:50:45 416164 aspirin medicatio n Not available Not available Not available 12/12/2019 1191 RxNorm Not Available [facility] 0 23:50:46 956205 losartan Not available Not available Not available Not available 12/12/2019 08631 RxNorm Not Available [facility] 0 23:50:46 755615 estrogens , conjugate d (CORRECTION) medicatio n Not available Not available Not available 12/12/2019 4099 RxNorm Not Available [facility] 0 23:50:46 625470 ciproflox acin medicatio n Not available Not available Not available 12/12/2019 2551 RxNorm Not Available [facility] 0 23:50:46 988572 hydrochlo rothiazid e medicatio n Not available Not available Not available 12/12/2019 5487 RxNorm Not Available [facility] 0 23:50:46 327499 metoprolo l Not available Not available Not available Not available 12/12/2019 6918 RxNorm Not Available [facility] 0 23:50:46 788954 naproxen medicatio n Not available Not available Not available 12/12/2019 7258 RxNorm Not Available [facility] 0 23:50:46 19871104 clindamyc in Not available Not available Not available Not available 12/12/2019 2582 RxNorm Not Available [facility] 0 23:50:46 808461 Substance with sulfonami de structure and antibacte rial mechanism of action (substanc e) medicatio n Not available Not available Not available 11/11/2020 94690 8003 SNOMED [facility] 1 11:56:30 345295 Myrbetriq medicatio n swelling Not available Not available 10/05/2021 69755 92 RxNorm [address]A [address], [address], [facility] 2 13:18:14 843644 [employer] Immune medicatio n Not available Not available Not available 04/09/2022 Demetri Bosch [facility], [facility] 2 [...] Updated DateTime 04/09/2022 154.94 cm 27.8 kg/m2 22554.08 g Demetri Bosch [facility] 04/09/2022 12:13:52 Date Recorded Body height Body mass index (BMI) Body weight Provider Name and Address Organization Details Last Updated DateTime 12/06/2022 154.94 cm 25.5 kg/m2 34106.97 g Demetri Bosch [facility] 12/06/2022 10:41:56 Date Recorded Body height Body mass index (BMI) Body weight Provider Name and Address Organization Details Last Updated DateTime 04/28/2023 154.94 cm 25.5 kg/m2 [address]6434.[address] [facility] 04/28/2023 11:25:35 Date Recorded Body height Body mass index (BMI) Body weight Provider Name and Address Organization Details Last Updated DateTime 09/14/2021 158.75 cm 26.5 kg/m2 54099.08 g Demetri Danitza [facility] 09/14/2021 09:54:39 Date Recorded Body height Body mass index (BMI) Body weight Provider Name and Address Organization Details Last Updated DateTime 09/14/2021 158.75 cm 26.5 kg/m2 89399.08 g Merrygabriela Ocampo [facility] 09/14/2021 10:08:57 Date Recorded Body height Body mass index (BMI) Body weight Provider Name and Address Organization Details Last Updated DateTime 11/12/2021 154.94 cm 27.8 kg/m2 89297.08 g Merry Ocampo [facility] 11/12/2021 11:32:20 Social History Question Answer Notes LastModified by Organizat ion Details LastModified Time Tobacco Smoking Status Never Smoker Not Available [facility] 12/13/2019 02:00:45 What Is Your Level Of Alcohol Consumption? None Information not available 09/14/2021 What Is Your Level Of Caffeine Consumption? Heavy Information not available 09/14/2021 Are You Currently Employed? No Information not available 09/14/2021 Race [place] Information n ot available 12/13/2019 Ethnicity Not /Lat vane Information not available 09/14/2021 Preferred Language Mosotho Information not available 09/14/2021 Recreational Drug Use No Information not available 09/14/2021 Could You Be ? No Information not available 09/14/2021 Marital Status [email or web address] Informati on not available 12/13/2019 What Was The Date Of Your Most Recent Tobacco Screening? 12/06/2022 [email or web address] Information not available 12/06/2022 What Is Your [...] conjugate PCV 13 07/04/2017 completed STEPHEN Germain [facility] 04/28/2023 11:25:40 Past Encounters Encounter ID Performer Location Encounter Start Date Encounter Closed Date Diagnosis/Indication Diagnosis SNOMED-CT Code Diagnosis ICD10 Code [id number] Charlotte Smith MD [address] [address] 04/15/2020 10:02:52 04/25/2020 12:54:57 Overactive urinary bladder 099973466 N32.81 Urge incon tinence of urine 47278110 N39.41 [id number] Charlotte Smith MD [address] [address] 05/13/2020 10:14:48 05/13/2020 14:22:18 Overactive urinary bladder 585188420 N32.81 Urge incon tinence of urine 25566621 N39.41 History of urinary tract infection 0495181978 107 Z87.440 [id number] Charlotte Smith MD [address] [place] [address] 11/11/2020 11:46:55 11/11/2020 13:40:18 Overactive urinary bladder 748228892 N32.81 Urge incon tinence of urine 67947500 N39.41 [id number] Demetri Bosch [facility] [address] [place] [address],[facility] e [address] [place] [phone] 11/26/2020 10:15:12 12/02/2020 15:37:48 Overactive urinary bladder 594451894 N32.81 Nocturia 830739401 R35.1 [id number] MD [facility]a [facility] [address] [place] [address] 08/03/2021 11:31:50 08/03/2021 12:09:22 Overactive urinary bladder 532181624 N32.81 Urge incon tinence of urine 42779023 N39.41 Nocturia 592488499 R35.1 [id number] ELMA Burciaga [facility] [address] [place] [address] [place] [address] 09/14/2021 10:06:36 09/14/2021 14:16:12 Overactive urinary bladder 791075321 N32.81 Urge incon tinence of urine 25419974 N39.41 Nocturia 982084026 R35.1 [id number] Demetri Bosch [facility] [address] [place] [address] 09/14/2021 09:30:06 09/14/2021 14:31:59 Overactive urinary bladder 328036723 N32.81 [id number] ELMA Burciaga [facility] [address] [place] [address] [place] [phone] 11/12/2021 11:29:59 11/12/2021 12:37:25 Overactive urinary bladder 697730644 N32.81 Urge incon tinence of urine 54197555 N39.41 Nocturia 405129783 R35.1 [id number] Demetri Danitza [facility] [address] [facility],[address] [place] [address] 04/09/2022 11:43:46 04/09/2022 13:38:20 Overactive urinary bladder 678333548 N32.81 [id number] Demetri Bosch [facility] [address] [facility] [address],[facility] [address] [place] [address] 12/06/2022 10:28:13 12/06/2022 11:24:29 Overactive urinary bladder 247322253 N32.81 [id number] ELMA Burciaga [facility] [address] [facility] e [address] [place] [phone] 04/28/2023 11:22:38 04/28/2023 12:04:03 Overactive urinary bladder 978194371 N32.81 Urge incon tinence of urine 31647136 N39.41 Nocturia 340974657 R35.1 Health Concerns Section Related Observation LastModified by Organization Detai ls LastModified Time None Recorded Concern Status LastModified by Organization Details LastModified Time None Recorded Advance Directives Directive None Recorded Payers Encounter Date Sequence Insurance Name Policy Number Policy Betancourt Covered Member ID Betancourt Member ID Guarantor Name 09/14/2021 2 [place] [employer] [facility] Patsy A Wood [id number] Patsy A Wood 09/14/2021 2 [facility] [id number] Patsy Aramis Wood [id number] Patsy A Wood 11/12/2021 2 [place] [employer] Patsy A Wood [id number] Patsy A Wood 11/12/2021 2 [facility] [id number] Patsy A Wood [id number] Patsy A Wood 04/09/2022 2 [place] [employer] Patsy A Wood [id number] Patsy A Wood 04/09/2022 2 [facility] [id number] Patsy A Wood [id number] Patsy A Wood 12/06/2022 2 [place] [employer] [facility] Patsy A Wood [id number] Patsy A Wood 12/06/2022 2 [facility] [id number] Patsy Beltrán [id number] Patsy Beltrán 04/28/2023 2 [place] [employer] [facility] Patsy Beltrán [id number] Patsy Beltrán 04/28/2023 2 [facility] [id number] Patsy Beltrán [id number] Patsy Beltrán Notes Date Note Type Note [...] to be almost every hour. ELMA Burciaga [address] [place] [address],[address], [address], [facility] 09/14/2021 10:49:41 11/12/2021 [...] with sjorgrens. This visit was conducted using [employer] phone technology. Prior to conducting our health visit, the patient and I discussed the risks, benefits and alternatives to phone visits. The patient elected to proceed with the phone visit. ELMA Burciaga [address] [place] [address],[address], [place], [address], [facility] 11/12/2021 11:50:24 12/06/2022 [...] width changed Rate chaanged Resolution changed Demetri Bosch [facility] 12/06/2022 11:08:58 04/28/2023 text/html [...] to be almost every hour. ELMA Burciaga [address] [place] [address],[address], [place], [address], [facility] 04/28/2023 11:58:40 OBGyn Episode No OBEpisode recorded.
== END 2024-04-30 14:15 | disposition home or self-care (01) ==
LOC: WOUND 14:14
PROVIDERS: PCP Physician Assistant Medical; Visit Provider Nurse Practitioner Family
DX: I87.2 Venous insufficiency (chronic) (peripheral) (principal); I73.9 Peripheral vascular disease, unspecified; L97.322 Non-pressure chronic ulcer of left ankle with fat layer exposed; I89.0 Lymphedema, not elsewhere classified
CPT/HCPCS: 29581

== ENCOUNTER 2024-05-10 08:45 | Outpatient (CLI) | payer OTHER, SELFPAY ==
--- OUTSIDE RECORDS SUMMARY | 2024-05-10 08:51 | XMS_ITS | Continuity of Care Document ---
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 Name Role Phone Helder Medina MD [...] Antibodies Dna Antibody, Single Strand Dna Antibody, Nikolai Nuclear Antigen Antibodies Rheumatoid Factor, IGM Rheumatoid Factor, IGG, IGA Advance Directives Directive Yes / No Effective Date File Name No Information Encounters Encounter Description Practice Location Reason(s) For Visit Diagnoses Date Provider Providers Copied on Encounter Office/Outpa tient Visit, Est [facility], [address], [place], [address], [place] tel:[phone] [facility], Sjogren syndrome w/ inflammatory arthritis Apr-2 3 4 Lebedoff Helder. [address], [place], [place], [facility], [place]. tel:[phone] Referring Provider: Helder Jain, [address], [place], [address]. tel:[phone] [facility], [address], [place], [address], [place] tel:[phone] [facility], No Information Oct- 0 4 Lebedoff Helder. [address], [address], [place], [address], [place]. tel:[phone] Referring Provider: Helder Jain, [address], [place], [place], [facility]. tel:[phone] Office/Outpa tient Visit, Est [facility], [address], [place], [address], [place] tel:[phone] [facility], Sjogren syndrome w/ inflammatory arthritisPain in left foot Oct- 0 4 Lebedoff Helder. [address], [place], [address], [place]. tel:[phone] Referring Provider: Helder Jain, [address], [place], [place], [facility]. tel:[phone] Office/Outpa tient Visit, Est [facility], [address], [place], [address], [place] tel:[phone] [facility], Sjogren syndrome w/ inflammatory arthritisPrim mauri osteoarthriti s, right hand Apr-0 4 3 Lebedoff Helder. [address], [place], [address], [place]. tel:[phone] Referring Provider: Helder Jain, [address], [place], [address]. tel:[phone] Office/Outpa tient Visit, Est [facility], [address], [place], [address], [place] tel:[phone] [facility], Sicca syndrome, unspecifiedWe akness 3 Lebedoff Helder. [address], [place], [address], [place]. tel:[phone] Referring Provider: Helder Jain, [address], [place], [address]. tel:[phone] Office/Outpa tient Visit, Est [facility], [address], [place], [address], [place] tel:[phone] [facility], Sicca syndrome, unspecifiedPa in in left shoulder 2 Lebedoff Helder. [address], [place], [address], [place]. tel:[phone] Referring Provider: Helder Jain, [address], [place], [address]. tel:[phone] Office/Outpa tient Visit, Est [facility], [address], [place], [address], [place] tel:[phone] [facility], Sicca syndrome, unspecifiedDy spnea 2 Lebedoff Helder. [address], [place], [address], [place]. tel:[phone] Referring Provider: Helder Jain, [address], [place], [address]. tel:[phone] Office/Outpa tient Visit, Est [facility], [address], [place], [address], [place] tel:[phone] [facility], Sicca syndrome, unspecifiedOt her termite control representative (current) drug therapyPrimar y OA of right handDyspnea 1 Adam Pendleton. [address], [address], [place], [address], [place]. tel:[phone] Referring Provider: Helder Jain, [address], [place], [address]. tel:[phone] Office/Outpa tient Visit, New [facility], [address], [place], [address], [place] tel:[phone] [facility], Sicca syndrome, unspecifiedPa in in rt ankleOther termite control representative (current) drug therapy 1 Adam Pendleton. [address], [place], [address], [place]. tel:[phone] Referring Provider: Helder Jain, [address], [place], [address]. tel:[phone] [facility], [address], [place], [address], [place] tel:[phone] [facility] No Information 1 Mo Sullivan. [facility] [address] [facility] [address], [place], [address], [place]. tel:[phone] Family History Family Member Type Diagnosis Age At Onset No Information Immunizations Vaccine Date Status Comments COVID-19 Moderna administered Source: Ot er Provider COVID-19 Pfizer administered Note: 1 ; Source: Other Provider Payers Payer name Insurance type Covered green party ID Authoriza tion(s) [employer] Medicare Adv [id number] MB [id number] Social History Type Description Quantity Date Captured Comments Alcohol Use Details Caffeine Use Details Tobacco Use Status Current non-smoker Smoking Status Never smoker She gabi es in [place] with her . She is retired. 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 This appears to be well controlled currently. Ideally, this would not have been treated with residential prednisone, but as she has been on [...]
--- OUTSIDE RECORDS SUMMARY | 2024-05-10 08:51 | XMS_ITS | Clinical Summary ---
Author Organization [facility] Address [place], [place] [address] Care Team Providers Care Harmonica Maker Name Role Phone Kd Restrepo MD Unavailable [phone] Jose Napier PANettieC Primary Care Provider Charlotte Smith MD Unavailable [phone] Charlotte Anderson MD Unavailable [phone] Allergies Active Allergy Reactions Criticality Noted Date Comments Amoxicillin 01/19/2007 Aspirin Rash,Itching 01/20/2006 Atorvastatin Myalgia 12/27/2014 Blood-Group Specific Substance Other - Describe In Comment Field High 09/01/2016 Patient has Anti-D. Blood product orders may be delayed. Draw one red top and two purple top tubes for all Type and Screen/Type and Crossmatch orders. V-Sqhv-Pesirwzjs-Propol-Eld erb *Unknown 02/28/2024 Ciprofloxacin Rash 05/31/2012 Clindamycin [...] End Date Status FOLIC ACID 800 MCG TABIndications:Sic ca syndrome (HC) 1 tab daily 0 10/25/2007 Active multivitamin (MVI) tablet Take 1 tablet by mouth once daily. 0 05/04/2010 Active LACTOBACILLUS ACIDOPHILUS (PROBIOTIC ORAL) Take 1 capsule by mouth once daily. Active MEDICAL SUPPLY, MISCELLANEOUS (GRADUATED COMPRESSION STOCKINGS)Indicati ons:Varicose vein of leg For personal use. Length: calf Strength: 20-30 mmHg Circumference in cm: For calf: Ankle 22cm, Calf 36cm, 1 Packet 01/20/2017 Active polyethylene glycol (MIRALAX) 17 g powder for solution Not taking (08/05/2023). Active calcium carbonate-vitamin D3, 500 mg-400 units, (OSCAL 500 + D) tabletIndications: Age-related osteoporosis with current pathological fracture, sequela Take [...] hrs. 0 12/31/2019 Active Cranberry 500 mg capIndications:Pre diabetes 1 capsule once a day. 0 05/26/2020 Active betamethasone dipropionate 0.05% (DIPROSONE 0.05% OINTMENT) 0.05 % ointment Apply 1 Tube topically to affected area(s) one time if needed. Pt uses 2-3 times per week 05/26/2020 Active levothyroxine (SYNTHROID) 112 mcg tabletIndications: Hypothyroidism (acquired) Take 1 tablet by mouth before breakfast. 90 tablet 3 06/18/2020 Active Additional Information Patient taking differently:112 mcg Oral BEFORE BREAKFAST,takes Tuesday through Tuesday, not on sundays., Reported on 12/05/2023 predniSONE (DELTASONE) 10 mg tabletIndications: Mixed connective tissue disease (HC) TAKE ONE TABLET BY MOUTH EVERY OTHER DAY 45 tablet 3 06/18/2020 Active triamcinolone (ARISTOCORT; KENALOG) 0.1 % creamIndications:A topic dermatitis, unspecified type Apply topically to affected area(s) twice daily behind the left ear for 2 weeks. 30 g 06/18/2020 Active warfarin (COUMADIN) 2.5 mg tabletIndications: Anticoagulation monitoring, INR range 2-3,Pulmonary embolism, bilateral (HC) Take by mouth 1.25 mg (2.5 mg x 0.5) every Tue; 2.5 mg (2.5 mg x 1) all other days OR as directed 11/10/2020 Active busPIRone (BUSPAR) 5 mg tabletIndications: Anxiety TAKE ONE TABLET BY MOUTH THREE TIMES DAILY 90 Tablet 11/20/2020 Active Additional Information Patient taking differently:5 mg Oral TID,Not taking x 3 weeks (08/05/2023), Reported on 08/05/2023 omeprazole (PRILOSEC) 20 mg Delayed-Release capsuleIndications :Gastroesophageal reflux disease without esophagitis TAKE ONE CAPSULE BY MOUTH EVERY DAY BEFORE A MEAL 90 Capsule 11/20/2020 Active pilocarpine (SALAGEN) 5 mg tabletIndications: Diffuse connective tissue disease (HC) TAKE ONE TABLET BY MOUTH UP TO THREE TIMES DAILY 270 Tablet 12/11/2020 Active dilTIAZem CD (CARDIZEM CD) 240 mg extended release 24 hr capsuleIndications :Essential hypertension Take 1 Capsule (240 mg) by mouth once daily. 90 Capsule 3 03/18/2023 Active furosemide (LASIX) 20 mg tabletIndications: SOB (shortness of breath),Nonrheumat ic mitral valve regurgitation Take 1 Tablet (20 mg) by mouth every morning. 90 Tablet 3 03/18/2023 Active lidocaine, anorectal, 5% topical 5 % cream once daily if needed. baclor/jesu/mita/l freedom Active cycloSPORINE (Restasis) 0.05 % ophthalmic emulsionIndication s:Dry eye syndrome, unspecified laterality Place 1 Drop into both eyes every 12 hours. 60 Each 3 05/25/2023 Active clopidogreL (PLAVIX) 75 mg tabletIndications: Peripheral arterial disease (HC) Take 1 Tablet (75 mg) by mouth once daily. 90 Tablet 05/05/2024 08/03/19 25 Active fluocinonide 0.05% topical (LIDEX) 0.05 % cream Apply topically to affected area(s) 2 times daily. 1 Tube 0 12/19/2013 05/04/20 24 Discontinu ed(*IP Discontinu ed) clobetasol 0.05% (TEMOVATE 0.05% OINTMENT) 0.05 % ointmentIndication s:Lichen sclerosus Apply topically daily for 12 weeks, then 3 times a week. 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 05/04/2024 AMD (age-related macular degeneration), bilatera l 02/18/2022 [...] Date Anticoagulation monitoring, INR range 2-3 [Z79.01]; [place] Target 2.5-3.0 12/06/2016 1 Pessary maintenance 02/25/2016 09/28/19 20 Anticoagulation monitoring, goal range 2.0-2.6 09/19/2013 01/09/2018 Abnormal stress test 11/17/2010 011 Routine general medical exam ination at a health care facility 07/12/2009 09/28/2019 Overview (12/06/2012): Normal CT angiogram 11/2010 Hip pain 05/06/2008 07/09/2009 Onychomycosis 05/06/2008 08/27/2008 HX OF VENOUS THROMBOSIS AND EMBOLISM 11/09/2006 12/06/2012 Bilateral pulmonary embolism 10/11/2006 11/18/2017 AFTERCARE, LONG-TERM USE, ME DICATIONS NEC-PLAQUENIL 10/22/2003 Encounters Date Type Department Care Team Description 05/07/2024 Telephone [facility] [address] [place] [address] Charlotte Anderson MD Questions (Medication questions and concerns) 05/06/2024 Travel 05/04/2024 7:30 AM CDT Anesthesia Event [facility] [address] [place] [address] Delia Chavira MD 05/04/2024 5:27 AM CDT - 05/04/2024 4:40 PM CDT Hospital Encounter [facility] [address] [place] [address] Charlotte Anderson MD Peripheral arterial disease (HC) (Primary Dx) Discharge Disposition: Home Self Care 05/04/2024 Travel 05/02/2024 Travel 04/09/2024 9:30 AM CDT Office Visit [facility] [address] [place] [phone] Charlotte Anderson MD Follow Up ( Venous stasis ulcer of ankle, left ) 04/09/2024 Travel 04/05/2024 Travel 04/02/2024 Telephone [facility] [address] [place] [phone] Charlotte Anderson MD 03/30/2024 Telephone [facility] [address] [place] [phone] Chalrotte Anderson MD Questions 03/21/2024 Telephone [facility] [address] [place] [address] Charlotte Anderson MD status of left wound ankle 03/01/2024 3:30 PM CDT Office Visit [facility] [address] [place] [address] Olvin Haji MD Consult (CT, US & MRI - spot on pancreas) 03/01/2024 Travel 02/28/2024 10:00 AM CDT Office Visit [facility] [address] [place] [address] Tomas Page, OD Eye Exam (CEE) 02/28/2024 Travel 02/20/2024 Telephone [facility] [address] [place] [address] Charlotte Anderson MD Results 02/17/2024 10:56 AM CDT - 02/17/2024 11:59 PM CDT Hospital Encounter [facility] [address] [place] [address] Charlotte Anderson MD Venous stasis ulcer of ankle, left (HC) 02/16/2024 8:00 AM CDT Procedure Only [facility] [address] [place] [phone] Charlotte Anderson MD 02/16/2024 6:57 AM CDT - 02/16/2024 11:59 PM CDT Hospital Encounter [facility] [address] [place] [address] Charlotte Anderson MD Venous stasis ulcer of ankle, left (HC) 02/16/2024 Travel 02/10/2024 Telephone [facility] [address] [place] [phone] Charlotte Anderson MD Pre Procedure Instructions from Last 3 Months Immunizations Name Administration Dates Next Due AMB INFLUENZA IIV3 (AGE 65+ YRS) PF (Flu Clinic Only) 03/23/2017 AMB Influenza, IIV3 (Age >=3 years) Preserve Free (Flu Clinic Only) 04/08/2009 AMB Influenza, IIV3 (Age >=3 years)(Flu Clinic Only) 04/06/2013,04/16/2011,04/24/2008 COVID-19 vaccine ([employer] 30mcg/0.3mL) MD ZAHRAV 09/02/2020,08/12/2020 Influenza A (H1N1), Inactiva clint (Age [...] Date Recorded PHQ-2 TOTAL SCORE 1 06/18/2020 Financial Resource Strain Answer Date R ecorded [...] Sign Reading Time Taken Comments Blood Pressure 133/80 05/04/2024 3:44 PM CDT Pulse 63 05/04/2024 1:00 PM CDT Temperature 36 ??C (96.8 ??F) 05/04/2024 9:56 AM CDT Respiratory Rate 18 05/04/2024 2:00 PM CDT Oxygen Saturation 98% 05/04/2024 3:00 PM CDT Inhaled Oxygen Concentration - - Weight 63 kg (139 lb) 05/04/2024 5:57 AM CDT Height 149.9 cm (4' 11) 05/04/2024 5:57 AM CDT Body Mass Index 28.07 05/04/2024 5:57 AM CDT Plan of Treatment Upcoming Encounters Date Type Department Care Team (Late st Contact Info) Description 05/10/2024 2:00 PM TANK CREWMEMBER Ancillary Procedure [facility] [address] [place] [address] 05/18/2024 10:30 AM TANK CREWMEMBER Office Visit [facility] [address] [place] [address] 08/30/2024 10:00 AM TANK CREWMEMBER Office Visit [facility] [address] [place] [address] [place] [address] [place] [address] Health Maintenance Due Date Last Done Comments [...] 2018, 01/13/2016, 12/18/2010 COVID-19 vaccine series Completed 04/26/20 24, 06/13/2023, 04/30/2022, Additional history exists Medical Devices Implanted Type Area Manager Study Device Identifier Shelf Expiration Date Model / Serial / Lot Lead Kit 4.32mm Spacing 28cm Length Interstim - [id number] Implanted:Qty: 1 on 04/01/2020 by Charlotte Smith MD at [facility] N/A: Sacrum Med[employer] Pain Therapy 09/30/2021 [id number] / / [id number] Stimulator 7.7mm 14cc Interstim Ii - [id number] Implanted:Qty: 1 on 04/01/2020 by Charlotte Smith MD at [facility] N/A: Sacrum [employer] Pain Therapy 03/31/2021 [id number]# / [id number] / Description:PIN [id number] Procedures Procedure Name Priority Date/Time Associated Diagnosis Comments [facility] ACTIVATED CLOTTING TM CV Timed 05/04/2024 9:31 AM CDT [facility] ACTIVATED CLOTTING TM CV Timed 05/04/2024 9:00 AM CDT [facility] ACTIVATED CLOTTING TM CV Timed 05/04/2024 8:33 AM CDT PROTIME-INR STAT 05/04/2024 6:58 AM CDT BASIC METABOLIC PANEL STAT 05/04/2024 6:19 AM CDT CBC W PLT NO DIFF Preop 05/04/2024 6:1 9 AM CDT US VENOUS LOWER EXTREMITY LEFT Routine 02/17/2024 11:46 AM CDT Venous stasis ulcer of ankle, left (HC) US CLOSURE/VEIN MAPPING LT NBA 02/16/2024 9:11 AM CDT Venous stasis ulcer of ankle, left (HC) XR DXA BONE DENSITY 2 SITES AXIAL Routine 07/02/2019 11:48 AM TANK CREWMEMBER Osteopenia of multiple sites from Last 3 Months or Most Recently Relevant to Health Maintenance Results * (ABNORMAL) ACTIVATED CLOTTING TIME [id number] ACT (05/04/2024 9:31 AM CDT) Only the most recent of3 resultswithin the time period is included. ACTIVATED CLOTTING TIME, POCT 128(H) 74 - 125 sec 05/04/2024 10:38 AM CDT [facility] Blood BLOOD SPECIMEN / Unknown 05/04/2024 9:31 AM CDT 05/04/2024 10:38 AM CDT Charlotte Anderson MD HEMATOLOGY [facility] [address] [address] [address] [place] [address] * (ABNORMAL) PROTIME-INR (05/04/2024 6:58 AM CDT) INR 1.4(H) <1.3 05/04/2024 7:13 AM CDT [facility] PROTIME 16.0(H) 10.6 - 12.4 sec 05/04/2024 7:13 AM CDT [facility] Blood BLOOD SPECIMEN / Unknown Non-Lab Venipuncture / Unknown 05/04/2024 6:58 AM CDT 05/04/2024 7:02 AM CDT [facility] - 05/04/2024 7:13 AM CDT ?Therapeutic Range 2.0-3.0 for most anticoagulated patients 2.5-3.5 or 4.0 for high risk patients The INR is only used for patients on stable oral anticoagulant therapy. It makes no significant contribution to the diagnosis or treatment of patients whose Protime is prolonged for other reasons. INR results are increased when heparin levels exceed 1.0 U/mL, which corresponds to an aPTT >125 seconds if the patient is on UFH. Charlotte Anderson MD HEMATOLOGY [facility] S[address] [address] [address] [place] [address] * (ABNORMAL) CBC with Platelets no Differential (05/04/2024 6:19 AM CDT) Pathologist [facility] WHITE BLOOD COUNT 5.9 4.5 - 11.0 thou/cu mm 05/04/2024 7:01 AM [facility] RED BLOOD COUNT 3.88(L) 4.00 - 5.20 mil/cu mm 05/04/2024 7:01 AM [facility] HEMOGLOBIN 12.1 12.0 - 16.0 g/dL 05/04/2024 7:01 AM [facility] HEMATOCRIT 36.9 33.0 - 51.0 % 05/04/2024 7:01 AM [facility] MCV 95 80 - 100 fL 05/04/2024 7:01 AM [facility] MCH 31.2 26.0 - 34.0 pg 05/04/2024 7:01 AM [facility] MCHC 32.8 32.0 - 36.0 g/dL 05/04/2024 7:01 AM [facility] RDW 14.2 11.5 - 15.5 % 05/04/2024 7:01 AM [facility] PLATELET COUNT 222 140 - 440 thou/cu mm 05/04/2024 7:01 AM [facility] MPV 9.3 6.5 - 11.0 fL 05/04/2024 7:01 AM [facility] NRBC 0.0 % 05/04/2024 7:01 AM [facility] ABS NRBC 0.0 thou /cu mm 05/04/2024 7:01 AM [facility] Blood BLOOD SPECIMEN / Unknown Non-Lab Venipuncture / Unknown 05/04/2024 6:19 AM CDT 05/04/2024 6:53 AM T Marcus WILLS HEMATOLOGY [facility] S[address]OUT [address] [address] [address] [place] [address] * (ABNORMAL) Basic Metabolic Panel (05/04/2024 6:19 AM T) SODIUM 139 136 - 145 mmol/L 05/04/2024 7:28 AM [facility] POTASSIUM 3.4(L) 3.5 - 5.1 mmol/L 05/04/2024 7:28 AM [facility] CHLORIDE 101 98 - 107 mmol/L 05/04/2024 7:28 AM [facility] CO2,TOTAL 28 22 - 29 mmol/L 05/04/2024 7:28 AM [facility] ANION GAP 10 5 - 18 05/04/2024 7:28 AM [facility] GLUCOSE 83 70 - 99 mg/dL 05/04/2024 7:28 AM [facility] CALCIUM 9.1 8.8 - 10.2 mg/dL 05/04/2024 7:28 AM [facility] BUN 19 8 - 23 mg/dL 05/04/2024 7:28 AM [facility] CREATININE 1.04(H) 0.50 - 0.90 mg/dL 05/04/2024 7:28 AM [facility] BUN/CREAT RATIO 18 10 - 20 7:28 AM [facility] eGFR 53(L) >90 mL/min/1.7 3m2 05/04/2024 7:28 AM [facility] Comment:As of 2021, eG FR is calculated by the CKD-EPI creatinine equation without race adjustment. ??eGFR can be influenced by muscle mass, exercise, and diet. ??The reported eGFR is an estimation only and is only applicable if the renal function is stable. Blood BLOOD SPECIMEN / Unknown Non-Lab Venipuncture / Unknown 05/04/2024 6:19 AM CDT 05/04/2024 6:52 AM CDT Marcus WILLS CHEMISTRY [facility] [address] [address] [address] [place] [address] * US VENOUS LOWER EXTREMITY LEFT (02/17/2024 11:46 AM CDT) Anatomical Region Laterality Modality LEGS, LEG L, Abdomen Ultrasound 02/17/2024 11:1 7 AM CDT Narrative 02/17/2024 5:40 PM CDT VASCULAR ULTRASOUND REPORT RODERICK HEATON Accession#: ?? [id number] : ?[id number] ??Study Date: ?? 02/17/2024 11:17:13 AM Age: ?83 years ?? Tech: ? AMS Gender: F ?Referring MD: CHARLOTTE ANDERSON Site: [facility] Study performed: ?Duplex US DVT [...] Accreditation Commission (IAC/Vascular), www.intersocietal.org/vascular Report generated by Synapse. ??Final ?? Procedure Note Dejan Tolentino MD - 02/17/2024 VASCULAR ULTRASOUND REPORT RODERICK HEATON : 1940 Study Date: 02/17/2024 11:17:13 AM Age: 83 years Tech: AMS Gender: F Referring MD: CHARLOTTE ANDERSON Site: [facility] Study performed: Duplex US [...] prior study 12/05/2023, Occluded GSV s/p venous efscltpov64/15/2024. FINDINGS: The LT GSV is occluded from [...] theIntersocietal Accreditation Commission (IAC/Vascular),www.[email or web address].org/vascular Report generated by Synapse. Final Charlotte Anderson MD US * US CLOSURE/VEIN MAPPING LT (02/16/2024 9:11 AM CDT) Narrative Silent, Sched - 02/16/2024 9:11 AM CDT The result for this exam is either scanned and attached to this order or are included in the ordering provider's NOTES from the patient's Office Visit or Surgical procedure from this date. Charlotte Anderson MD US * (ABNORMAL) XR DXA BONE DENSITY 2 SITES AXIAL (07/02/2019 11:48 AM TANK CREWMEMBER) Anatomical Region Laterality Modality Spine, HIPS, HIPL, HIPR Other Narrative 07/06/2019 11:01 AM TANK CREWMEMBER Please see scanned document for results of this study. Rakel Connor DO DEXA from Last 3 Months or Most Recently Relevant to Health Maintenance Advance Directives Documents on File Type Date Recorded Patient Buggy Ladle Tender Expl anation Healthcare Directive 05/04/2024 5:29 AM Healthcare Directive 07/19/2016 2:58 PM RO CESARIO HEATON Healthcare Directive 05/14/2016 016 * Full Code (Latest Code Status on [...] 8:45 AM 09/01/2016 4:04 PM Care Teams Harmonica Maker Relationship Specialty Start Date End Date Jose Napier PA-C [address] [place] [address] PCP - General Physician Carpentry Teacher 03/01/24 Kd Restrepo MD Endocrinology 11/24/11 Charlotte Smith MD [address] [place] [address] Surgery - Urology 03/01/24 Charlotte Anderson MD [address] [facility] [address] [place] [address] Surgery - Vascular 03/21/24
--- OUTSIDE RECORDS SUMMARY | 2024-05-10 08:51 | XMS_ITS | Continuity of Care Document ---
Author Organization [facility] Address [address] [place] [address] Phone Care Team Providers Care Clinical Nursing Intern Name Role Phone Usha Dickinson Unavailable Unavailable [...] on Encounter [facility], [address], [facility] [place], [id number], [place] tel:[phone] No Information [facility]. [facility], [address], [place], [place], [address] , [place]. [phone] Office/Outpat ient Visit,Est, Mod [facility], [address], [place], [place], [id number], [place] tel:[phone] [facility] Other forms of scoliosis, thoracolumbar regionL2 wedge compression fracture, initial encounter for closed fractureSpondy lolisthesis, lumbar region 0 Puente Usha. [facility], [address], [place], [place], [id number] , [place]. tel:[phone] Referring Provider: Rakel Arvizu, [employer] [facility] [address] [place], [address]. tel:[phone] Office/Outpat ient Visit,Est, Mod [facility], [address], [facility] [place], [id number], [place] tel:[phone] [facility] L2 wedge compression fracture, initial encounter for closed fractureOther forms of scoliosis, thoracolumbar regionSpondylo listhesis, lumbar region 0 Kwame Kerr. [facility], [address], [place], [place], [id number] , . tel:[phone] Referring Provider: Rakel Arvizu [employer] [address] [place], [address]. tel:[phone] Office/Outpat ient Visit,[facility], [address], [facility] [place], [address], [place] tel:[phone] [facility] [place] L2 wedge compression fracture, initial encounter for closed fractureOther forms of scoliosis, thoracolumbar regionSpondylo listhesis, lumbar region 0 Kwame Kerr. [facility], [address], [place], [place], [id number] , [place]. tel:[phone] Referring Provider: Rakel Arvizu [employer] [address] [place], [address]. tel:[phone] Family History Family Member Type Diagnosis Age At Onset No Information Payers Payer name Insurance type Covered green party ID Authoralethaa tishannon(s) Medicare MB [id number] [facility] [id number] [facility] [id number] Social History Type Description Quantity Date Captured [...]
== END 2024-05-10 08:46 | disposition home or self-care (01) ==
LOC: FRMREF 08:47
PROVIDERS: PCP Physician Assistant Medical; Visit Provider Physician Assistant Medical
DX: N39.0 Urinary tract infection, site not specified (principal)
CPT/HCPCS: 87086

== ENCOUNTER 2024-05-11 09:54 | Outpatient (CLI) | payer OTHER, SELFPAY ==
--- OUTSIDE RECORDS SUMMARY | 2024-05-11 09:56 | XMS_ITS | Continuity of Care Document ---
Author Organization [facility] Address [address] [place] [address] Phone Care Team Providers Care Warehouse Associate Name Role Phone Helder Medina MD Unavailable [...] Antibodies Dna Antibody, Single Strand Dna Antibody, [employer] Nuclear Antigen Antibodies Rheumatoid Factor, IGM Rheumatoid Factor, IGG, IGA Advance Directives Directive Yes / No Effective Date File Name No Information Encounters Encounter Description Practice Location Reason(s) For Visit Diagnoses Date Provider Providers Copied on Encounter Office/Outpa tient Visit, Est [facility], [address], [place], [address], [place] tel:[phone] [facility], Sjogren syndrome w/ inflammatory arthritis Apr-2 3 4 [facility] Helder. [address], [place], [place], [facility], [place]. tel:[phone] Referring Provider: Helder Jain, [address], [place], [address]. tel:[phone] [facility], [address], [place], [address], [place] tel:[phone] [facility], No Information Oct- 0 4 [facility] Helder. [address], [place], [address], [place]. tel:[phone] Referring Provider: Helder Jain, [address], [place], [place], [facility]. tel:[phone] Office/Outpa tient Visit, Est [facility], [address], [place], [address], [place] tel:[phone] [facility], Sjogren syndrome w/ inflammatory arthritisPain in left foot Oct- 0 4 [facility] Helder. [address], [place], [address], [place]. tel:[phone] Referring Provider: Helder Jain, [address], [place], [place], [facility]. tel:[phone] Office/Outpa tient Visit, Est [facility], [address], [place], [address], [place] tel:[phone] [facility], Sjogren syndrome w/ inflammatory arthritisPrim mauri osteoarthriti s, right hand Apr-0 4 3 [facility] Helder. [address], [place], [address], [place]. tel:[phone] Referring Provider: Helder Jain, [address], [place], [address]. tel:[phone] Office/Outpa tient Visit, Est [facility], [address], [place], [address], [place] tel:[phone] [facility], Sicca syndrome, unspecifiedWe akness 3 [facility] Helder. [address], [place], [address], [place]. tel:[phone] Referring Provider: Helder Jain, [address], [place], [address]. tel:[phone] Office/Outpa tient Visit, Est [facility], [address], [place], [address], [place] tel:[phone] [facility], Sicca syndrome, unspecifiedPa in in left shoulder 2 [facility]bed[facility] Helder. [address], [place], [address], [place]. tel:[phone] Referring Provider: Helder Jain, [address], [place], [address]. tel:[phone] Office/Outpa tient Visit, Est [facility], [address], [place], [address], [place] tel:[phone] [facility], Sicca syndrome, unspecifiedDy spnea 2 [facility] Helder. [address], [place], [address], [place]. tel:[phone] Referring Provider: Helder Jain, [address], [place], [address]. tel:[phone] Office/Outpa tient Visit, Est [facility], [address], [place], [address], [place] tel:[phone] [facility], Sicca syndrome, unspecifiedOt her intermediate designer (current) drug therapyPrimar y OA of right handDyspnea 1 Adam Pendleton. [address], [place], [address], [place]. tel:[phone] Referring Provider: Helder Jain, [address], [place], [address]. tel:[phone] Office/Outpa tient Visit, New [facility], [address], [place], [address], [place] tel:[phone] [facility], Sicca syndrome, unspecifiedPa in in rt ankleOther intermediate designer (current) drug therapy 1 Adam Pendleton. [address], [place], [address], [place]. tel:[phone] Referring Provider: Helder Jain, [address], [place], [address]. tel:[phone] [facility], [address], [place], [address], [place] tel:[phone] [facility] No Information 1 Mo Sullivan. [facility] [address] [facility] [address], [place], [address], [place]. tel:[phone] Family History Family Member Type Diagnosis Age At Onset No Information Immunizations Vaccine Date Status Comments COVID-19 Moderna administered Source: Ot er Provider COVID-19 Pfizer administered Note: 1 ; Source: Other Provider Payers Payer name Insurance type Covered libertarian ID Authoriza tion(s) [employer] Medicare Adv [id number] MB [id number] Social History Type Description Quantity Date Captured Comments Alcohol Use Details Caffeine Use Details Tobacco Use Status Current non-smoker Smoking Status Never smoker She gabi es in [place] with her . She is retired. She [...] Order Fo ot X-ray; Complete (3+ views) (29481), Sent on: Sent History Of Present Illness [...] diagnosis of Sjogren's syndrome manifested as + TINA/SSA/WEIGHT ENGINEER, 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 This appears to be well controlled currently. Ideally, this would not have been treated with prison prednisone, but as she has been on [...]
--- OUTSIDE RECORDS SUMMARY | 2024-05-11 09:56 | XMS_ITS | Continuity of Care Document ---
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 [facility], [address], [place], [place], [id number] , [place]. [phone] Office/Outpat ient Visit,Est, Mod [facility], [address], [place], [place], [address], [place] tel:[phone] [facility] Other forms of scoliosis, thoracolumbar regionL2 wedge compression fracture, initial encounter for closed fractureSpondy lolisthesis, lumbar region 0 [facility]. [facility], [address], [place], [place], [address] , [place]. tel:[phone] Referring Provider: Rakel Arvizu, [employer] [facility] [address] [place], [address]. tel:[phone] Office/Outpat ient Visit,Est, Mod [facility], [address], [facility] [place], [address], [place] tel:[phone] [facility] L2 wedge compression fracture, initial encounter for closed fractureOther forms of scoliosis, thoracolumbar regionSpondylo listhesis, lumbar region 0 Kwame Kerr. [facility], [address], [place], [place], [address] , . tel:[phone] Referring Provider: Rakel Arvizu [employer] [address] [place], [address]. tel:[phone] Office/Outpat ient Visit,[facility], [facility], [address], [facility] [place], [address], [place] tel:[phone] [facility] [place] L2 wedge compression fracture, initial encounter for closed fractureOther forms of scoliosis, thoracolumbar regionSpondylo listhesis, lumbar region 0 Kwame Kerr. [facility], [address], [place], [place], [address] , [place]. tel:[phone] Referring Provider: Rakel Arvizu [employer] [address] [place], [address]. tel:[phone] Family History Family Member Type Diagnosis Age At Onset No Information Payers Payer name Insurance type Covered green party ID Authoralethaa tishannon(s) Medicare MB [id number] [facility] [id number] [facility] [id number] Social History Type Description Quantity Date Captured [...]
--- OUTSIDE RECORDS SUMMARY | 2024-05-11 09:56 | XMS_ITS | Clinical Summary ---
Author Organization [facility] Address [place], [place] [address] Care Team Providers Care Vaccinator Name Role Phone Kd Restrepo MD Unavailable [phone] Jose Napier PANettieC Primary Care Provider [phone] Charlotte Smith MD Unavailable [phone] Charlotte Anderson MD Unavailable [phone] Allergies Active Allergy Reactions Criticality Noted Date Comments Amoxicillin 01/19/2007 Aspirin Rash,Itching 01/20/2006 Atorvastatin Myalgia 12/27/2014 Blood-Group Specific Substance Other - Describe In Comment Field High 09/01/2016 Patient has Anti-D. Blood product orders may be delayed. Draw one red top and two purple top tubes for all Type and Screen/Type and Crossmatch orders. 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 05/04/2024 AMD (age-related macular degeneration), bilatera l 02/18/2022 Mitral valve insufficiency 01/25/2020 Mitral valve prolapse 01/25/2020 SOB (shortness of breath) 01/25/2020 Fatigue 01/25/2020 intermediate current use of systemic steroids 09/27 Prediabetes [...] Date Anticoagulation monitoring, INR range 2-3 [Z79.01]; Mongo Target 2.5-3.0 12/06/2016 1 Pessary maintenance 02/25/2016 [...] Encounters Date Type Department Care Team Description 05/10/2024 2:00 PM NATURAL RESOURCE ECONOMIST Ancillary Procedure [facility] [address] [place] [address] Arrived 05/10/2024 Travel 05/07/2024 Telephone [facility] [address] [place] [phone] Charlotte Anderson MD Questions (Medication questions and concerns) 05/06/2024 Travel 05/04/2024 7:30 AM CDT Anesthesia Event [facility] [address] [place] [address] Delia Chavira MD 05/04/2024 5:27 AM CDT - 05/04/2024 4:40 PM CDT Hospital Encounter [facility] [address] [place] [address] Charlotte Anderson MD Peripheral arterial disease (HC) (Primary Dx) Discharge Disposition: Home Self Care 05/04/2024 Travel 05/02/2024 Travel 04/09/2024 9:30 AM CDT Office Visit [facility] [address] [place] [phone] Charlotte Anderson MD Follow Up ( Venous stasis ulcer of ankle, left ) 04/09/2024 Travel 04/05/2024 Travel 04/02/2024 Telephone [facility] [address] [place] [phone] Charlotte Anderson MD 03/30/2024 Telephone [facility] [address] [place] [phone] Charlotte Anderson MD Questions 03/21/2024 Telephone [facility] [address] [place] [phone] Charlotte Anderson MD status of left wound ankle 03/01/2024 3:30 PM CDT Office Visit [facility] [address] [place] [address] Olvin Haji MD Consult (CT, US & MRI - spot on pancreas) 03/01/2024 Travel 02/28/2024 10:00 AM CDT Office Visit [facility] [address] [place] [address] Tomas Page, RADHA Eye Exam (CEE) 02/28/2024 Travel 02/20/2024 Telephone [facility] [address] [place] [address] Charlotte Anderson MD Results 02/17/2024 10:56 AM CDT - 02/17/2024 11:59 PM CDT Hospital Encounter [facility] [address] [place] [address] Charlotte Anderson MD Venous stasis ulcer of ankle, left (HC) 02/16/2024 8:00 AM CDT Procedure Only [facility] [address] [place] [address] Charlotte Anderson MD 02/16/2024 6:57 AM CDT - 02/16/2024 11:59 PM CDT Hospital Encounter [facility] [address] [place] [address] Charlotte Anderson MD Venous stasis ulcer of ankle, left (HC) 02/16/2024 Travel 02/10/2024 Telephone [facility] [address] [place] [address] Charlotte Anderson MD Pre Procedure Instructions from Last 3 Months Immunizations Name Administration Dates Next Due AMB INFLUENZA IIV3 (AGE 65+ YRS) PF (Flu Clinic Only) 03/23/2017 AMB Influenza, IIV3 (Age >=3 years) Preserve Free (Flu Clinic Only) 04/08/2009 AMB Influenza, IIV3 (Age >=3 years)(Flu Clinic Only) 04/06/2013,04/16/2011,04/24/2008 COVID-19 vaccine ([employer] NTech 30mcg/0.3mL) PF, MDV 09/02/2020,08/12/2020 Influenza A [...] Care Team (Late st Contact Info) Description 05/18/2024 10:30 AM NATURAL RESOURCE ECONOMIST Office Visit [facility] [address] [place] [address] 08/30/2024 10:00 AM NATURAL RESOURCE ECONOMIST Office Visit [facility] [address] [place] [address] [place] [address] [place] [address] Health Maintenance Due Date Last Done Comments [...] 2018, 01/13/2016, 12/18/2010 COVID-19 vaccine series Completed 04/26/20, 06/13/2023, 04/30/2022, Additional history exists Medical Devices Implanted Type Area Food Processing Chemist Device Identifier Shelf Expiration Date Model / Serial / Lot Lead Kit 4.32mm Spacing 28cm Length Interstim - [id number] Implanted:Qty: 1 on 04/01/2020 by Charlotte Smith MD at [employer] N/A: Sacrum [employer] Pain Therapy 09/30/2021 [id number] / / [id number] Stimulator 7.7mm 14cc Interstim Ii - [id number] Implanted:Qty: 1 on 04/01/2020 by Charlotte Smith MD at [employer] N/A: Sacrum [employer] Pain Therapy 03/31/2021 [id number] / [id number] / Description:PIN [id number] Procedures Procedure Name Priority Date/Time Associated Diagnosis Comments ECHO TTE COMPLETE WO CONTRAST Routine 05/10/2024 2:24 PM NATURAL RESOURCE ECONOMIST Nonrheumatic mitral valve regurgitation HCHG ACTIVATED CLOTTING TM CV Timed 05/04/2024 [...] 2 SITES AXIAL Routine 07/02/2019 11:48 AM NATURAL RESOURCE ECONOMIST Osteopenia of multiple sites from Last 3 Months or Most Recently Relevant to Health Maintenance Results * ECHO TTE COMPLETE WO CONTRAST (05/10/2024 2:24 PM NATURAL RESOURCE ECONOMIST) AORTIC VALVE MEAN PG 5 mmHg EJECTION FRACTION 58 % PEAK TR VELOCITY 2.7 m/s LVEDD 4.7 cm MITRAL VALVE MR ERO 21 mm2 EJECTION FRACTION 55 - 60% Anatomical Region Laterality Modality Ultrasound 05/10/2024 1:46 PM NATURAL RESOURCE ECONOMIST Narrative 05/10/2024 4:38 PM NATURAL RESOURCE ECONOMIST ECHOCARDIOGRAM RODERICK HEATON ? Accession#: ?? [id number] : ?1940 83 years Study Date: ?? 05/10/2024 1:46:47 PM Gender: F ?BP: ? 133/80 mmHg Height: 149.86 cm ?BSA: ?1.58 m? ? ? Weight: 63.05 kg ? Tech: ? ESTEVES ? Referring MD: ADELAIDE EID Site: ? [facility] Reading Location: [facility] Patient Location: Outpatient. Procedure: 2D, Color Doppler and Spectral Doppler. Indication for study: MR Cardiac Rhythm: Normal sinus and with premature atrial contractions.Study quality: Fair. Final Impressions: 1. Normal left ventricular size, mildly increased wall thickness, normal global systolic function, calculated EF of 58 %. 2. Severely enlarged left atrium. 3. The aortic valve is trileaflet and sclerotic, no stenosis and trivial regurgitation. 4. The mitral valve is sclerotic and evidence of prolapse, mean gradient 3 mmHg, moderate to severe mitral regurgitation. Pulmonary vein reversal is present. 5. Mild-moderate tricuspid regurgitation. Chamber Sizes and Function Normal left ventricular size, mildly increased wall thickness, normal global systolic function, calculated EF of 58 %. No resting regional wall motion abnormality visualized. Left atrial size is severely enlarged. Right ventricular cavity size is normal, global systolic RV function is normal. The right atrium is normal. The pulmonary artery is of normal size and origin. The sinus of Valsalva is normal sized. The ascending aorta is normal sized. Valves, RV Pressures and Diastolic Function The aortic valve is trileaflet and sclerotic, no stenosis and trivial regurgitation. The mitral valve is sclerotic and evidence of prolapse, mean gradient 3 mmHg, moderate to severe mitral regurgitation. Mitral annular calcification is present. Indeterminate pattern of LV diastolic filling. The tricuspid valve is normal in structure. Tricuspid regurgitation is mild-moderate. The tricuspid regurgitant velocity is 2.7 m/s, the estimated right ventricular systolic pressure is 29 mmHg plus right atrial pressure. The pulmonic valve is normal. Mild pulmonary regurgitation. Pulmonary veins show a pattern of systolic flow reversal, suggestive of severe mitral regurgitation. The left upper pulmonary vein was well visualized. Masses, Effusion, Shunts There is no pericardial effusion. The inferior vena cava is normal sized, respiratory size variation greater than 50%. No left to right shunting was detected by limited color flow Doppler interrogation of the interatrial septum. MEASUREMENTS AND CALCULATIONS 2-D Measurements and LV Function: LVID (d) 4.7 cm Planimetered EF 58 % LVID (s) 2.6 cm LV FS% (2D) ? 45 % IVS (d) ??1.0 cm LVOT diameter ?? 2.0 cm LVPW (d) 0.9 cm HR ?61 bpm Ao Sinus 2.7 cm LA Vol index ?64 ml/m2 Asc Ao ?? 3.3 cm Diastology: Mitral ?Tissue Doppler E Peak 1.0 m/s ??e', Septum ? 0.05 m/s A Peak 1.2 m/s ??e', Lateral ?0.07 m/s E/A ?0.9 ?E/e' Average ?? 16.91 DT ? 261 msec Aortic Valve: Vmax ? 1.4 m/s ??DENISSE (V) ?? 2.05 cm? ? ? VTI ?0.30 m ?? DENISSE (I) ?? 2.05 cm? ? ? LVOT V max 1.0 m/s ??Max PG ?8 mmHg LVOT VTI ?? 0.21 m ?? Mean PG ?? 5 mmHg SV ? 62 ml ?Dim Index 0.69 SV index ?? 39 ml/m? ? ? CO ?3.8 l/min ?CI ?2.4 l/min/m? ? ? Mitral Valve: MVA ? 2.9 cm? ? ? MR ERO ??0.21 cm? ? ? MV P 1/2 ??76 msec MR Vol. 35 ml MV Mean G 3 mmHg ??MR TVI ??1.66 m Tricuspid Valve and estimated PA pressures: TR Vmax 2.7 m/s TAPSE 1.9 cm TR maxG 29 mmHg . This study was interpreted by an [facility] accredited facility. ??Final ?? Procedure Note Carlos A Vidales MD - 05/10/2024 ECHOCARDIOGRAM RODERICK HEATON : 1940 83 years Study Date: 05/10/2024 1:46:47 PM Gender: F BP: 133/80 mmHg Height: 149.86 cm BSA: 1.58 m? ? ? Weight: 63.05 kg Tech: [facility] Referring MD: ADELAIDE EID Site: [facility] Reading Location: [facility] Patient Location: Outpatient. Procedure: 2D, Color Doppler and Spectral Doppler. Indication for study: MR Cardiac Rhythm: Normal sinus and with premature atrial contractions.Studyquality: Fair. Final Impressions: 1. Normal left ventricular size, mildly increased wall thickness, normalglobal systolic function, calculated EF of 58 %. 2. Severely enlarged left atrium. 3. The aortic valve is trileaflet and sclerotic, no stenosis and trivialregurgitation. 4. The mitral valve is sclerotic and evidence of prolapse, mean gradient3 mmHg, moderate to severe mitral regurgitation. Pulmonary vein reversalis present. 5. Mild-moderate tricuspid regurgitation. Chamber Sizes and Function Normal left ventricular size, mildly increased wall thickness, normalglobal systolic function, calculated EF of 58 %. No resting regional wallmotion abnormality visualized. Left atrial size is severely enlarged.Right ventricular cavity size is normal, global systolic RV function isnormal. The right atrium is normal. The pulmonary artery is of normal sizeand origin. The sinus of Valsalva is normal sized. The ascending aorta isnormal sized. Valves, RV Pressures and Diastolic Function The aortic valve is trileaflet and sclerotic, no stenosis and trivialregurgitation. The mitral valve is sclerotic and evidence of prolapse,mean gradient 3 mmHg, moderate to severe mitral regurgitation. Mitralannular calcification is present. Indeterminate pattern of LV diastolicfilling. The tricuspid valve is normal in structure. Tricuspidregurgitation is mild-moderate. The tricuspid regurgitant velocity is 2.7m/s, the estimated right ventricular systolic pressure is 29 mmHg plusright atrial pressure. The pulmonic valve is normal. Mild pulmonaryregurgitation. Pulmonary veins show a pattern of systolic flow reversal,suggestive of severe mitral regurgitation. The left upper pulmonary veinwas well visualized. Masses, Effusion, Shunts There is no pericardial effusion. The inferior vena cava is normal sized,respiratory size variation greater than 50%. No left to right shunting wasdetected by limited color flow Doppler interrogation of the interatrialseptum. MEASUREMENTS AND CALCULATIONS 2-D Measurements and LV Function: LVID (d) 4.7 cm Planimetered EF 58 % LVID (s) 2.6 cm LV FS% (2D) 45 % IVS (d) 1.0 cm LVOT diameter 2.0 cm LVPW (d) 0.9 cm HR 61 bpm Ao Sinus 2.7 cm LA Vol index 64 ml/m2 Asc Ao 3.3 cm Diastology: Mitral Tissue Doppler E Peak 1.0 m/s e', Septum 0.05 m/s A Peak 1.2 m/s e', Lateral 0.07 m/s E/A 0.9 E/e' Average 16.91 DT 261 msec Aortic Valve: Vmax 1.4 m/s DENISSE (V) 2.05 cm? ? ? VTI 0.30 m DENISSE (I) 2.05 cm? ? ? LVOT V max 1.0 m/s Max PG 8 mmHg LVOT VTI 0.21 m Mean PG 5 mmHg SV 62 ml Dim Index 0.69 SV index 39 ml/m? ? ? CO 3.8 l/min CI 2.4 l/min/m? ? ? Mitral Valve: MVA 2.9 cm? ? ? MR ERO 0.21 cm? ? ? MV P 1/2 76 msec MR Vol. 35 ml MV Mean G 3 mmHg MR TVI 1.66 m Tricuspid Valve and estimated PA pressures: TR Vmax 2.7 m/s TAPSE 1.9 cm TR maxG 29 mmHg . This study was interpreted by an [facility] accredited facility. Final Adelaide Eid MD ECHO ORD * (ABNORMAL) ACTIVATED CLOTTING TIME [id number] ACT (05/04/2024 9:31 AM CDT) Only the most recent of3 resultswithin the time period is included. ACTIVATED CLOTTING TIME, POCT 128(H) 74 - 125 sec 05/04/2024 10:38 AM CDT [facility] Blood BLOOD SPECIMEN / Unknown 05/04/2024 9:31 AM CDT 05/04/2024 10:38 AM CDT Charlotte Anderson MD HEMATOLOGY Performing Organization Address [facility]/ZIP Co de Phone Number [facility] SENDOUT INTERNAL ZIP [address] [place] [id number] * (ABNORMAL) PROTIME-INR (05/04/2024 6:58 AM CDT) Pathologist [facility] INR 1.4(H) <1.3 05/04/2024 7:13 AM CDT [facility] PROTIME 16.0(H) 10.6 - 12.4 sec 05/04/2024 7:13 AM CDT [facility] Blood BLOOD SPECIMEN / Unknown Non-Lab Venipuncture / Unknown 05/04/2024 6:58 AM CDT 05/04/2024 7:02 AM CDT Narrative [facility] - 05/04/2024 7:13 AM CDT ?Therapeutic [...] is on UFH. Charlotte Anderson MD HEMATOLOGY Performing Organization Address City/[facility]/ZIP Co de Phone Number [facility] SEND[facility] INTERNAL ZIP [phone] [place] [address] * (ABNORMAL) CBC with Platelets no Differential (05/04/2024 6:19 AM CDT) WHITE BLOOD COUNT 5.9 4.5 - 11.0 thou/cu mm 05/04/2024 7:01 AM [facility] RED BLOOD COUNT 3.88(L) 4.00 - 5.20 mil/cu mm 05/04/2024 7:01 AM [facility] HEMOGLOBIN 12.1 12.0 - 16.0 g/dL 05/04/2024 7:01 AM [facility] HEMATOCRIT 36.9 33.0 - 51.0 % 05/04/2024 7:01 AM [facility] MCV 95 80 - 100 fL 05/04/2024 7:01 AM [facility] MCH 31.2 26.0 - 34.0 pg 05/04/2024 7:01 AM [facility] MCHC 32.8 32.0 - 36.0 g/dL 05/04/2024 7:01 AM [facility] RDW 14.2 11.5 - 15.5 % 05/04/2024 7:01 AM [facility] PLATELET COUNT 222 140 - 440 thou/cu mm 05/04/2024 7:01 AM [facility] MPV 9.3 6.5 - 11.0 fL 05/04/2024 7:01 AM [facility] NRBC 0.0 % 05/04/2024 7:01 AM [facility] ABS NRBC 0.0 thou /cu mm 05/04/2024 7:01 AM [facility] Blood BLOOD SPECIMEN / Unknown Non-Lab Venipuncture / Unknown 05/04/2024 6:19 AM CDT 05/04/2024 6:53 AM T Marcus WILLS HEMATOLOGY [facility] SENDOUT INTERNAL ZIP [address] [address] [place] [address] * (ABNORMAL) Basic Metabolic Panel (05/04/2024 6:19 AM T) SODIUM 139 136 - 145 mmol/L 05/04/2024 7:28 AM [facility] POTASSIUM 3.4(L) 3.5 - 5.1 mmol/L 05/04/2024 7:28 AM [facility] CHLORIDE 101 98 - 107 mmol/L 05/04/2024 7:28 AM [facility] CO2,TOTAL 28 22 - 29 mmol/L 05/04/2024 7:28 AM [facility] ANION GAP 10 5 - 18 05/04/2024 7:28 AM [facility] GLUCOSE 83 70 - 99 mg/dL 05/04/2024 7:28 AM [facility] CALCIUM 9.1 8.8 - 10.2 mg/dL 05/04/2024 7:28 AM [facility] BUN 19 8 - 23 mg/dL 05/04/2024 7:28 AM [facility] CREATININE 1.04(H) 0.50 - 0.90 mg/dL 05/04/2024 7:28 AM [facility] BUN/CREAT RATIO 18 10 - 20 7:28 AM [facility] eGFR 53(L) >90 mL/min/1.7 3m2 05/04/2024 7:28 AM [facility] Comment:As of 2021, eG FR is calculated by the CKD-EPI creatinine equation without race adjustment. ??eGFR can be influenced by muscle mass, exercise, and diet. ??The reported eGFR is an estimation only and is only applicable if the renal function is stable. Blood BLOOD SPECIMEN / Unknown Non-Lab Venipuncture / Unknown 05/04/2024 6:19 AM CDT 05/04/2024 6:52 AM CDT Marcus WILLS CHEMISTRY [facility] SENDOUT INTERNAL ZIP [phone] [place] [address] * US VENOUS LOWER EXTREMITY LEFT (02/17/2024 11:46 AM CDT) Anatomical Region Laterality Modality LEGS, LEG L, Abdomen Ultrasound 02/17/2024 11:1 7 AM CDT Narrative 02/17/2024 5:40 PM CDT VASCULAR ULTRASOUND REPORT RODERICK HEATON Accession#: ?? [id number] : ?1940 ??Study Date: ?? 02/17/2024 11:17:13 AM Age: ?83 years ?? Tech: ? AMS Gender: F ?Referring MD: CHARLOTTE ANDERSON Site: [facility] Vascular [facility] Study performed: ?Duplex US DVT study, (left). [...] no ? + +--------+-----+--------+----+ = Can't evaluate Adelaide Tolentino MD. Electronically signed on 02/17/2024 5:40:21 PM This study was performed and interpreted by a service accredited by the Intersocietal Accreditation Commission (IAC/Vascular), www.intersocietal.org/vascular Report generated by [employer]. ??Final ?? Procedure Note Adelaide Tolentino MD - 02/17/2024 VASCULAR ULTRASOUND REPORT RODERICK HEATON : 1940 Study Date: 02/17/2024 11:17:13 AM Age: 83 years Tech: AMS Gender: F Referring MD: CHARLOTTE ANDERSON Site: [facility] Vascular [facility] Study performed: Duplex US DVT study, (left). 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 FINDINGS: The LT GSV is occluded from [...] GSV no + +--------+-----+--------+----+ = Can't evaluate Adelaide Tolentino MD. Electronically signed on 02/17/2024 5:40:21 PM This study was performed and interpreted by a service accredited by theIntersocietal Accreditation Commission (IAC/Vascular),www.intersocietal.org/vascular Report generated by [employer]. Final Charlotte Anderson MD US * US [...] DENSITY 2 SITES AXIAL (07/02/2019 11:48 AM NATURAL RESOURCE ECONOMIST) Anatomical Region Laterality Modality Spine, HIPS, HIPL, HIPR Other Narrative 07/06/2019 11:01 AM NATURAL RESOURCE ECONOMIST Please see scanned document for results of this study. 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
--- OUTSIDE RECORDS SUMMARY | 2024-05-11 09:56 | XMS_ITS | Data Portability ---
Author Organization [facility], [facility] Address [address] [place] [address] Care Team Providers Care Web Design Instructor Name Role Phone [facility] Primary Care Provider Assessment [...] By Organization Details Last Modified Time 09/14/2021 [id number] Test each progra m for at least 2 weeks, adjusting amplitude as needed. May remain on a program as long as it is effective. Return as needed for reprogramming. [email or web address] Not available 09/14/2021 10:07:26 Patient states t hat Gemtessa samples were very effective, but it is not covered by her insurance. She was also given a rx for Myrbetriq. [email or web address] Not available 09/14/2021 10:08:49 11/12/2021 [id number] Over Active Blad betty (OAB): -Managed with [...] minutes [email or web address] Not available 11/12/2021 11:46:55 04/09/2022 [id number] Test each progra m for at least 2 weeks, adjusting amplitude as needed. May remain on a program as long as it is effective. Return as needed for reprogramming. [email or web address] Not available 04/09/2022 12:34:22 Patient states t hat Gemtesa samples were effective, but the rx was too expensive, so she stopped taking. She would like to try the Gemtesa again, but wonders of it is ok t take every other day, to spread the prescription out, and decrease the expense. I will ask Afsaneh Bui, PAC. [email or web address] Not available 04/09/2022 12:37:43 12/06/2022 [id number] Test each progra m for at least 2 weeks, adjusting amplitude as needed. May remain on a program as long as it is effective. Return as needed for reprogramming. [email or web address] Not available 12/06/2022 10:55:41 04/28/2023 [id number] Over Active Blad betty (OAB): -Managed with [...] color -advantus YELLOW yellow Not Available [facility] [address], [place], [address], 09/14/2021 10:41:46 09/15/19 22 09/14/2021 UA DIP CS ADVAN TUS appearance -advantus CLEAR clear Not Available [facility] [address], [place], [address], 09/14/2021 10:41:46 09/15/19 22 09/14/2021 UA DIP CS ADVAN TUS glucose -advantus NEGATI VE mg/dL negati ve Not Available [facility] [address], [place], [address], 09/14/2021 10:41:46 09/15/19 22 09/14/2021 UA DIP CS ADVAN TUS bilirubin -advantus NEGATI VE negati ve Not Available [facility] [address], [place], [address], 09/14/2021 10:41:46 09/15/19 22 09/14/2021 UA DIP CS ADVAN TUS ketones -advantus NEGATI VE mg/dL negati ve Not Available [facility] [address], [place], [address], 09/14/2021 10:41:46 09/15/19 22 09/14/2021 UA DIP CS ADVAN TUS sp. gravity -advantus 1.010 1.010- 1.025 Not Available [facility] [address] [place] [address] [address], [place], [address], 09/14/2021 10:41:46 09/15/19 22 09/14/2021 UA DIP CS ADVAN TUS pH -advantus 6.0 5.0-8. 0 Not Available [facility] [address], [place], [address], 09/14/2021 10:41:46 09/15/19 22 09/14/2021 UA DIP CS ADVAN TUS protein -advantus NEGATI VE mg/dL negati ve Not Available [facility] [address], [place], [address], 09/14/2021 10:41:46 09/15/19 22 09/14/2021 UA DIP CS ADVAN TUS urobilinogen -advantus 0.2 normal Not Available [facility] [address], [place], [address], 09/14/2021 10:41:46 09/15/19 22 09/14/2021 UA DIP CS ADVAN TUS nitrites -advantus NEGATI VE negati ve Not Available [facility] [address] [place] [address] [address], [place], [address], 09/14/2021 10:41:46 09/15/19 22 09/14/2021 UA DIP CS ADVAN TUS blood -advantus SMALL negati ve abnormal Not Available [facility] [address] [place] [address] [address], [place], [address], 09/14/2021 10:41:46 09/15/19 22 09/14/2021 UA DIP CS ADVAN TUS leukocytes -advantus NEGATI VE negati ve Not Available [facility] [address] [place] [address] [address], [place], [address], 09/14/2021 10:41:46 09/15/19 22 09/14/2021 UA DIP CS ADVAN TUS performed by Bibi Ruiz Not Available [facility] [address], [place], [address], 09/14/2021 10:41:46 09/15/19 22 09/14/2021 UA DIP [...] ----- ----- ----- ----- ---- Not Available [facility] [address] [place] [address], [place], [address], 09/14/2021 10:41:46 09/15/19 22 09/14/2021 UA MICRO SCOPI C U-WBC 0 - 2 [hpf] 0 - 2 Not Available [facility] [address] [place] [address], [place], [address], 09/14/2021 10:41:47 09/15/19 22 09/14/2021 UA MICRO SCOPI C U-RBC 0 - 2 [hpf] 0 - 2 Not Available [facility] [address] [place] [address], [place], [address], 09/14/2021 10:41:47 09/15/19 22 09/14/2021 UA MICRO SCOPI C bacteria Small [hpf] negati ve abnormal Not Available [facility] [address] [place] [address], [place], [address], 09/14/2021 10:41:47 09/15/19 22 09/14/2021 UA MICRO SCOPI C squamous epi Small /lpf negati ve,sma ll Not Available [facility] [address] [place] [address], [place], [address], 09/14/2021 10:41:47 Result Notes None recorded. 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 Procedures Surgical History Date Name Laterality Status Provider Name and Address Organization Details Recorded Time 08/20/19 25 COMPLEX VISIT active ELMA Burciaga [address] [place] [address],[address], [address], [facility] 04/10/2024 11:39:57 08/20/19 25 Bladder Scan active ELMA Burciaga [address] [place] [address],[address], [address], [facility] 04/10/2024 11:41:06 04/28/20 23 Sacral neuromodulation w/o reprogramming completed ELMA Burciaga [address] [place] [address],[address], [place], [address], [facility] 04/28/2023 11:57:28 04/28/20 23 Bladder Scan completed Radhika Mathis [facility] 04/28/2023 11:36:21 12/07/19 23 Sacral neuromodulation w/o reprogramming completed Demetri Bosch [facility] 12/06/2022 11:08:45 04/09/20 22 Sacral Stimulator Reprogramming completed Demetri Bosch [facility] 04/09/2022 12:49:34 09/15/19 22 Bladder Scan completed Merry Ocampo [facility] 09/14/2021 10:25:15 09/15/19 22 Sacral neuromodulation w/o reprogramming completed Demetri Bosch [facility] 09/14/2021 10:15:12 08/03/19 22 Past Data Reviewed completed Charlotte Smith MD [address] [facility] [facility] [address], [place], [address], [facility] 08/03/2021 08:29:52 08/03/19 22 Bladder Scan completed Usha Corado [facility] 08/03/2021 11:50:03 11/27/19 21 Sacral Stimulator Reprogramming completed Demetri Bosch [facility] 11/27/2020 12:44:01 09/17/19 20 Implant neuroelectrodes completed Not Available [facility] 12/13/2019 18:11:39 11/29/19 19 Insert bladder catheter completed Not Available [facility] 12/13/2019 18:11:39 11/14/19 15 Colonoscopy completed Lucinda Nuñez [facility] 11/11/2020 11:57:08 11/29/19 09 Total hip arthroplasty completed Not Available [facility] 12/13/2019 18:11:39 11/29/19 00 Unlisted procedure breast completed Not Available [facility] 12/13/2019 18:11:39 Appendectomy add-on completed Not Available [facility] 12/13/2019 18:11:39 Imaging Results None recorded. Procedure Notes None recorded. Medical Equipment None Reported. Allergies Allergen ID Allergen Name Allergen Category Reaction Reaction Severity Criticality Documentation Date Start Date Code Code System Note Provider Name and Address Organization Details Recorded Time 19861108 Product containin g nitroimid azole (product) medicatio n Not available Not available Not available 12/12/2019 32854 7004 SNOMED Not Available [facility] 0 23:50:45 19861202 sulindac medicatio n Not available Not available Not available 12/12/2019 28988 RxNorm Not Available [facility] 0 23:50:45 19870101 Medicinal product containin g penicilli n and acting as antibacte rial agent (product) medicatio n itching Not available Not available 12/12/2019 67172 05 SNOMED Not Available [facility] 0 23:50:45 046311 atorvasta tin medicatio n Not available Not available Not available 12/12/2019 57694 RxNorm Not Available [facility] 0 23:50:45 720109 tetracycl ine medicatio n Not available Not available Not available 12/12/2019 69749 RxNorm Not Available [facility] 0 23:50:45 591982 alendrona te sodium medicatio n Not available Not available Not available 12/12/201926809 2 RxNorm Not Available [facility] 0 23:50:45 087458 amoxicill in medicatio n Not available Not available Not available 12/12/2019 723 RxNorm Not Available [facility] 0 23:50:45 277852 oxybutyni n chloride Not available dizziness Not available Not available 12/12/2019 52174 RxNorm fatig ue Not Available [facility] 0 23:50:45 820947 aspirin medicatio n Not available Not available Not available 12/12/2019 1191 RxNorm Not Available [facility] 0 23:50:46 736067 losartan Not available Not available Not available Not available 12/12/2019 64800 RxNorm Not Available [facility] 0 23:50:46 392075 estrogens , conjugate d (SENIOR CARE) medicatio n Not available Not available Not available 12/12/2019 4099 RxNorm Not Available [facility] 0 23:50:46 328852 ciproflox acin medicatio n Not available Not available Not available 12/12/2019 2551 RxNorm Not Available [facility] 0 23:50:46 144478 hydrochlo rothiazid e medicatio n Not available Not available Not available 12/12/2019 5487 RxNorm Not Available [facility] 0 23:50:46 133349 metoprolo l Not available Not available Not available Not available 12/12/2019 6918 RxNorm Not Available [facility] 0 23:50:46 169635 naproxen medicatio n Not available Not available Not available 12/12/2019 7258 RxNorm Not Available [facility] 0 23:50:46 19871104 clindamyc in Not available Not available Not available Not available 12/12/2019 2582 RxNorm Not Available [facility] 0 23:50:46 171801 Substance with sulfonami de structure and antibacte rial mechanism of action (substanc e) medicatio n Not available Not available Not available 11/11/2020 44048 8003 SNOMED [facility] 11:56:30 829417 Myrbetriq medicatio n swelling Not available Not available 10/05/2021 72033 92 RxNorm [address], [address], [facility] 2 13:18:14 879045 Sambucus Elderberr y Immune medicatio n Not available Not available Not available 04/09/2022 Demetri Bosch [facility], [facility] 2 12:14:11 Medications Name [...] Updated DateTime 04/09/2022 154.94 cm 27.8 kg/m2 66613.08 g Demetri Bosch [facility] 04/09/2022 12:13:52 Date Recorded Body height Body mass index (BMI) Body weight Provider Name and Address Organization Details Last Updated DateTime 12/06/2022 154.94 cm 25.5 kg/m2 45339.97 g Demetri Bosch [facility] 12/06/2022 10:41:56 Date Recorded Body height Body mass index (BMI) Body weight Provider Name and Address Organization Details Last Updated DateTime 04/28/2023 154.94 cm 25.5 kg/m2 01878.97 g Radhika Mathis [facility] 04/28/2023 11:25:35 Date Recorded Body height Body mass index (BMI) Body weight Provider Name and Address Organization Details Last Updated DateTime 09/14/2021 158.75 cm 26.5 kg/m2 83265.08 g Demetri Danitza [facility] 09/14/2021 09:54:39 Date Recorded Body height Body mass index (BMI) Body weight Provider Name and Address Organization Details Last Updated DateTime 09/14/2021 158.75 cm 26.5 kg/m2 05534.08 g Merrygabriela Ocampo [facility] 09/14/2021 10:08:57 Date Recorded Body height Body mass index (BMI) Body weight Provider Name and Address Organization Details Last Updated DateTime 11/12/2021 154.94 cm 27.8 kg/m2 25159.08 g Merry Ocampo [facility] 11/12/2021 11:32:20 Social History Question Answer Notes LastModified by Organizat ion Details LastModified Time Tobacco Smoking Status Never Smoker Not Available [facility] 12/13/2019 02:00:45 What Is Your Level Of Alcohol Consumption? None Information not available 09/14/2021 What Is Your Level Of Caffeine Consumption? Heavy Information not available 09/14/2021 Are You Currently Employed? No Information not available 09/14/[address] [employer] Information n ot available 12/13/2019 Ethnicity Not /Lat vane Information not available 09/14/2021 Preferred Language Chadian Information not available 09/14/2021 Recreational Drug Use No Information not available 09/14/2021 Could You Be ? No Information not available 09/14/2021 Marital Status [email or web address] Informati on not available 12/13/2019 What Was The Date Of Your Most Recent Tobacco Screening? 12/06/2022 [email or web address] Information not available 12/06/2022 What Is Your [...] Diagnosis/Indication Diagnosis SNOMED-CT Code Diagnosis ICD10 Code [id number] Charlotte Smith MD [address] [address] 04/15/2020 10:02:52 04/25/2020 12:54:57 Overactive urinary bladder 638686078 N32.81 Urge incon tinence of urine 73668304 N39.41 [id number] Charlotte Smith MD [address] [address] 05/13/2020 10:14:48 05/13/2020 14:22:18 Overactive urinary bladder 401706565 N32.81 Urge incon tinence of urine 33659548 N39.41 History of urinary tract infection 9269461553 107 Z87.440 [id number] Charlotte Smith MD [address] [place] [address] 11/11/2020 11:46:55 11/11/2020 13:40:18 Overactive urinary bladder 734857687 N32.81 Urge incon tinence of urine 98001148 N39.41 [id number] Demetri Bosch [facility] [address] [place] [address],[facility] e [address] [place] [address] 11/26/2020 10:15:12 12/02/2020 15:37:48 Overactive urinary bladder 991900366 N32.81 Nocturia 806882358 R35.1 [id number] MD [facility]a [facility] [address] [place] [address] 08/03/2021 11:31:50 08/03/2021 12:09:22 Overactive urinary bladder 515186150 N32.81 Urge incon tinence of urine 89278941 N39.41 Nocturia 871351241 R35.1 [id number] ELMA Burciaga [facility] [address] [place] [address] [place] [address] 09/14/2021 10:06:36 09/14/2021 14:16:12 Overactive urinary bladder 874296717 N32.81 Urge incon tinence of urine 63266992 N39.41 Nocturia 599015527 R35.1 [id number] Demetri Bosch [facility] [address] [place] [address] 09/14/2021 09:30:06 09/14/2021 14:31:59 Overactive urinary bladder 670690927 N32.81 [id number] ELMA Burciaga [facility] [address] [place] [address] [place] [address] 11/12/2021 11:29:59 11/12/2021 12:37:25 Overactive urinary bladder 196673153 N32.81 Urge incon tinence of urine 13657602 N39.41 Nocturia 447392780 R35.1 [id number] Demetri Danitza [facility] [address] [facility],it e [address] [place] [address] 04/09/2022 11:43:46 04/09/2022 13:38:20 Overactive urinary bladder 517422523 N32.81 [id number] Demetri Bosch [facility] [address] [facility] e [address] [place] [address] 12/06/2022 10:28:13 12/06/2022 11:24:29 Overactive urinary bladder 881322845 N32.81 [id number] ELMA Burciaga [facility] [address] [facility] e [address] [place] [address] 04/28/2023 11:22:38 04/28/2023 12:04:03 Overactive urinary bladder 931162782 N32.81 Urge incon tinence of urine 91998733 N39.41 Nocturia 519775301 R35.1 Health Concerns Section Related Observation LastModified by Organization Detai ls LastModified Time None Recorded Concern Status LastModified by Organization Details LastModified Time None Recorded Advance Directives Directive None Recorded Payers Encounter Date Sequence Insurance Name Policy Number Policy Betancourt Covered Member ID Betancourt Member ID Guarantor Name 09/14/2021 2 [place] [employer] [facility] Patsy A Wood [id number] Patsy A Wood 09/14/2021 2 [facility] [id number] Patsy Aramis Wood [id number] Patsy A Wood 11/12/2021 2 [place] [employer] Patsy A Wood [id number] Patsy A Wood 11/12/2021 2 [facility] [id number] Patsy A Wood [id number] Patsy A Wood 04/09/2022 2 [place] [employer] [employer] Patsy A Wood [id number] Patsy A Wood 04/09/2022 2 [facility] [id number] Patsy A Wood [id number] Patsy A Wood 12/06/2022 2 [place] [employer] [facility] Patsy A Wood [id number] Patsy A Wood 12/06/2022 2 [facility] [id number] Patsy Beltrán [id number] Patsy Beltrán 04/28/2023 2 [place] [employer] [facility] Patsy Beltrán [id number] Patsy Beltrán 04/28/2023 2 [facility] [id number] Patsy Beltrán [id number] Patsy Beltrán Notes Date Note Type Note [...] to be almost every hour. ELMA Burciaga [address] [place] [address],[address], [address], [facility] 09/14/2021 10:49:41 11/12/2021 text/html HPI [...] with sjorgrens. This visit was conducted using [employer] phone technology. Prior to conducting our health visit, the patient and I discussed the risks, benefits and alternatives to phone visits. The patient elected to proceed with the phone visit. ELMA Burciaga [address] [place] [address],[address], [place], [address], [facility] 11/12/2021 11:50:24 12/06/2022 text/html [...] changed Rate chaanged Resolution changed Demetri Bosch [facility] 12/06/2022 11:08:58 04/28/2023 text/html HPI [...] to be almost every hour. ELMA Burciaga [address] [place] [address],[address], [place], [address], [facility] 04/28/2023 11:58:40 OBGyn Episode No OBEpisode recorded.
== END 2024-05-11 09:55 | disposition home or self-care (01) ==
LOC: WOUND 09:54
PROVIDERS: PCP Physician Assistant Medical; Visit Provider Nurse Practitioner Family
DX: I73.9 Peripheral vascular disease, unspecified (principal); I87.2 Venous insufficiency (chronic) (peripheral); I89.0 Lymphedema, not elsewhere classified; L97.322 Non-pressure chronic ulcer of left ankle with fat layer exposed
CPT/HCPCS: 97597

== ENCOUNTER 2024-05-17 10:53 | Outpatient (CLI) | payer OTHER, SELFPAY ==
--- OUTSIDE RECORDS SUMMARY | 2024-05-17 10:55 | XMS_ITS | Clinical Summary ---
Author Organization [employer] [facility] Address [place], [place] [address] Care Team Providers Care Fur Glazer Name Role Phone Kd Restrepo MD Unavailable [phone] Jose Napier PANettieC Primary Care Provider [phone] Charlotte Smith MD Unavailable [phone] Charlotte Anderson MD Unavailable [phone] Allergies Active Allergy Reactions Criticality Noted Date Comments Amoxicillin 01/19/2007 Aspirin Rash,Itching 01/20/2006 Atorvastatin Myalgia 12/27/2014 Blood-Group Specific Substance Other - Describe In Comment Field High 09/01/2016 Patient has Anti-D. Blood product orders may be delayed. Draw one red top and two purple top tubes for all Type and Screen/Type and Crossmatch orders. 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 [...] Date Anticoagulation monitoring, INR range 2-3 [Z79.01]; [place] Target 2.5-3.0 12/06/2016 1 Pessary maintenance 02/25/2016 [...] Encounters Date Type Department Care Team Description 05/17/2024 Refill [facility] [address] [place] [address] Adelaide Eid MD Refill Request (Diltiazem Cd) 05/13/2024 Travel 05/11/2024 Telephone [facility] [address] [place] [phone] Charlotte Anderson MD Questions 05/10/2024 2:00 PM THIRD HELPER Ancillary Procedure [facility] [address] [place] [address] 05/10/2024 Travel 05/07/2024 Telephone [facility] [place] [address] [place] [phone] Charlotte Anderson MD Questions (Medication questions and concerns) 05/06/2024 Travel 05/04/2024 7:30 AM CDT Anesthesia Event [facility] [address] [place] [address] Delia Chavira MD 05/04/2024 5:27 AM CDT - 05/04/2024 4:40 PM CDT Hospital Encounter [facility] [address] [place] [address] Charlotte Anderson MD Peripheral arterial disease (HC) (Primary Dx) Discharge Disposition: Home Self Care 05/04/2024 Travel 05/02/2024 Travel 04/09/2024 9:30 AM CDT Office Visit [facility] [place] [address] [place] [phone] Charlotte Anderson MD Follow Up ( Venous stasis ulcer of ankle, left ) 04/09/2024 Travel 04/05/2024 Travel 04/02/2024 Telephone [facility] [place] [facility] [address] [place] [phone] Charlotte Anderson MD 03/30/2024 Telephone [facility] [place] [address] [place] [phone] Charlotte Anderson MD Questions 03/21/2024 Telephone [facility] [place] [address] [place] [phone] Charlotte Anderson MD status of left wound ankle 03/01/2024 3:30 PM CDT Office Visit [facility] [address] [place] [address] Olvin Haji MD Consult (CT, US & MRI - spot on pancreas) 03/01/2024 Travel 02/28/2024 10:00 AM CDT Office Visit [facility] [address] [place] [address] Tomas Page, OD Eye Exam (CEE) 02/28/2024 Travel 02/20/2024 Telephone [facility] [place] [address] [place] [phone] Charlotte Anderson MD Results 02/17/2024 10:56 AM CDT - 02/17/2024 11:59 PM CDT Hospital Encounter [facility] [address] [place] [address] Charlotte Anderson MD Venous stasis ulcer of ankle, left (HC) 02/16/2024 8:00 AM CDT Procedure Only [facility] [address] [place] [phone] Charlotte Anderson MD 02/16/2024 6:57 AM CDT - 02/16/2024 11:59 PM CDT Hospital Encounter [facility] [address] [place] [address] Charlotte Anderson MD Venous stasis ulcer of ankle, left (HC) 02/16/2024 Travel from Last 3 Months Immunizations Name Administration Dates Next Due AMB INFLUENZA IIV3 (AGE 65+ YRS) PF (Flu Clinic Only) 03/23/2017 AMB Influenza, IIV3 (Age >=3 years) Preserve Free (Flu Clinic Only) 04/08/2009 AMB Influenza, IIV3 (Age >=3 years)(Flu Clinic Only) 04/06/2013,04/16/2011,04/24/2008 COVID-19 vaccine ([email or web address] 30mcg/0.3mL) PF, MDV 09/02/2020,08/12/2020 Influenza A (H1N1), [...] st Contact Info) Description 05/18/2024 10:30 AM THIRD HELPER Office Visit [facility] [place] [address] [place] [phone] 08/30/2024 10:00 AM THIRD HELPER Office Visit [facility] [address] [place] [address] [place] [address] [place] [address] Health Maintenance Due Date Last Done Comments [...] history exists Medical Devices Implanted Type Area Recreation Engineer Device Identifier Shelf Expiration Date Model / Serial / Lot Lead Kit 4.32mm Spacing 28cm Length Interstim - [id number] Implanted:Qty: 1 on 04/01/2020 by Charlotte Smiht MD at [facility] N/A: Sacrum [employer] Pain Therapy 09/30/2021 [id number] / / [id number] Stimulator 7.7mm 14cc Interstim Ii - [id number] Implanted:Qty: 1 on 04/01/2020 by Charlotte Smith MD at [facility] N/A: Sacrum [employer] Pain Therapy 03/31/2021 [id number] / [id number] / Description:PIN [id number] Procedures Procedure Name Priority Date/Time Associated Diagnosis Comments ECHO TTE COMPLETE WO CONTRAST Routine 05/10/2024 2:24 PM THIRD HELPER Nonrheumatic mitral valve regurgitation [facility] ACTIVATED CLOTTING [...] 2 SITES AXIAL Routine 07/02/2019 11:48 AM THIRD HELPER Osteopenia of multiple sites from Last 3 Months or Most Recently Relevant to Health Maintenance Results * ECHO TTE COMPLETE WO CONTRAST (05/10/2024 2:24 PM THIRD HELPER) AORTIC VALVE MEAN PG 5 mmHg EJECTION FRACTION 58 % PEAK TR VELOCITY 2.7 m/s LVEDD 4.7 cm MITRAL VALVE MR ERO 21 mm2 EJECTION FRACTION 55 - 60% Anatomical Region Laterality Modality Ultrasound 05/10/2024 1:46 PM THIRD HELPER Narrative 05/10/2024 4:38 PM THIRD HELPER ECHOCARDIOGRAM RODERICK HEATON ? Accession#: ?? [id number] : ?1940 83 years Study Date: ?? 05/10/2024 1:46:47 PM Gender: F ?BP: ? 133/80 mmHg Height: 149.86 cm ?BSA: ?1.58 m? ? ? Weight: 63.05 kg ? Tech: ? ESTEVES ? Referring MD: ADELAIDE EID Site: ? [facility] Reading Location: [facility] Patient Location: Outpatient. Procedure: 2D, Color Doppler [...] . This study was interpreted by an [facility] accredited facility. ??Final ?? Procedure Note Carlos A Vidales MD - 05/10/2024 ECHOCARDIOGRAM RODERICK HEATON : 1940 83 years Study Date: 05/10/2024 1:46:47 PM Gender: F BP: 133/80 mmHg Height: 149.86 cm BSA: 1.58 m? ? ? Weight: 63.05 kg Tech: ESTEVES Referring MD: ADELAIDE EID Site: [facility] Reading Location: [facility] Patient Location: Outpatient. Procedure: 2D, Color Doppler [...] . This study was interpreted by an [facility] accredited facility. Final Adelaide Eid MD ECHO ORD * (ABNORMAL) ACTIVATED CLOTTING TIME [id number] ACT (05/04/2024 9:31 AM CDT) Only the most recent of3 resultswithin the time period is included. ACTIVATED CLOTTING TIME, POCT 128(H) 74 - 125 sec 05/04/2024 10:38 AM CDT [facility] Blood BLOOD SPECIMEN / Unknown 05/04/2024 9:31 AM CDT 05/04/2024 10:38 AM CDT Charlotte Anedrson MD HEMATOLOGY Performing Organization Address [facility] Co de Phone Number [facility] [id number] [place] [address] * (ABNORMAL) PROTIME-INR (05/04/2024 6:58 AM CDT) INR 1.4(H) <1.3 05/04/2024 7:13 AM CDT [facility] PROTIME 16.0(H) 10.6 - 12.4 sec 05/04/2024 7:13 AM CDT [facility] Blood BLOOD SPECIMEN / Unknown Non-Lab Venipuncture / Unknown 05/04/2024 6:58 AM CDT 05/04/2024 7:02 AM CDT Narrative [facility] - 05/04/2024 7:13 AM CDT ?Therapeutic [...] Charlotte Anderson MD HEMATOLOGY Performing Organization Address City/[facility]/ZIP Co de Phone Number [facility] SENDOUT INTERNAL ZIP [phone] [place] [address] * (ABNORMAL) CBC with Platelets no Differential (05/04/2024 6:19 AM CDT) [facility] WHITE BLOOD COUNT 5.9 4.5 - 11.0 thou/cu mm 05/04/2024 7:01 AM T [facility] RED BLOOD COUNT 3.88(L) 4.00 - 5.20 mil/cu mm 05/04/2024 7:01 AM [facility] HEMOGLOBIN 12.1 12.0 - 16.0 g/dL 05/04/2024 7:01 AM [facility] HEMATOCRIT 36.9 33.0 - 51.0 % 05/04/2024 7:01 AM [facility] MCV 95 80 - 100 fL 05/04/2024 7:01 AM [facility] MCH 31.2 26.0 - 34.0 pg 05/04/2024 7:01 AM [facility] MCHC 32.8 32.0 - 36.0 g/dL 05/04/2024 7:01 AM [facility] RDW 14.2 11.5 - 15.5 % 05/04/2024 7:01 AM [facility] PLATELET COUNT 222 140 - 440 thou/cu mm 05/04/2024 7:01 AM [facility] MPV 9.3 6.5 - 11.0 fL 05/04/2024 7:01 AM [facility] NRBC 0.0 % 05/04/2024 7:01 AM [facility] ABS NRBC 0.0 thou /cu mm 05/04/2024 7:01 AM [facility] Blood BLOOD SPECIMEN / Unknown Non-Lab Venipuncture / Unknown 05/04/2024 6:19 AM CDT 05/04/2024 6:53 AM CDT Marcus WILLS HEMATOLOGY [facility] SENDOUT [place]NAL ZIP [address] [address] [place] [address] * (ABNORMAL) Basic Metabolic Panel (05/04/2024 6:19 AM CDT) SODIUM 139 136 - 145 mmol/L 05/04/2024 7:28 AM [facility] POTASSIUM 3.4(L) 3.5 - 5.1 mmol/L 05/04/2024 7:28 AM [facility] CHLORIDE 101 98 - 107 mmol/L 05/04/2024 7:28 AM [facility] CO2,TOTAL 28 22 - 29 mmol/L 05/04/2024 7:28 AM [facility] ANION GAP 10 5 - 18 05/04/2024 7:28 AM [facility] GLUCOSE 83 70 - 99 mg/dL 05/04/2024 7:28 AM [facility] CALCIUM 9.1 8.8 - 10.2 mg/dL 05/04/2024 7:28 AM [facility] BUN 19 8 - 23 mg/dL 05/04/2024 7:28 AM [facility] CREATININE 1.04(H) 0.50 - 0.90 mg/dL 05/04/2024 7:28 AM [facility] BUN/CREAT RATIO 18 10 - 20 7:28 AM [facility] eGFR 53(L) >90 mL/min/1.7 3m2 05/04/2024 7:28 AM [facility] Comment:As of 2021, eG FR is calculated by the CKD-EPI creatinine equation without race adjustment. ??eGFR can be influenced by muscle mass, exercise, and diet. ??The reported eGFR is an estimation only and is only applicable if the renal function is stable. Blood BLOOD SPECIMEN / Unknown Non-Lab Venipuncture / Unknown 05/04/2024 6:19 AM CDT 05/04/2024 6:52 AM T Marcus WILLS CHEMISTRY [facility] SENDOUT INTERNAL ZIP [id number] [address] [place] [address] * US VENOUS LOWER EXTREMITY LEFT (02/17/2024 11:46 AM CDT) Anatomical Region Laterality Modality LEGS, LEG L, Abdomen Ultrasound 02/17/2024 11:1 7 AM CDT Narrative 02/17/2024 5:40 PM CDT VASCULAR ULTRASOUND REPORT RODERICK HEATON Accession#: ?? [id number] : ?1940 ??Study Date: ?? 02/17/2024 11:17:13 AM Age: ?83 years ?? Tech: ? AMS Gender: F ?Referring MD: CHARLOTTE ANDERSON Site: [facility] Vascular [facility] Study performed: ?Duplex US DVT study, (left). [...] Accreditation Commission (IAC/Vascular), [email or web address]/vascular Report generated by [employer]. ??Final ?? Procedure Note Adelaide Tolentino MD - 02/17/2024 VASCULAR ULTRASOUND REPORT RODERICK HEATON : 1940 Study Date: 02/17/2024 11:17:13 AM Age: 83 years Tech: AMS Gender: F Referring MD: CHARLOTTE ANDERSON Site: [facility] Vascular [facility] Study performed: Duplex US DVT study, (left). 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 FINDINGS: The LT GSV is occluded from [...] theIntersocietal Accreditation Commission (IAC/Vascular),[email or web address] Report generated by [employer]. Final Charlotte Anderson MD US * US [...] DENSITY 2 SITES AXIAL (07/02/2019 11:48 AM THIRD HELPER) Anatomical Region Laterality Modality Spine, HIPS, HIPL, HIPR Other Narrative 07/06/2019 11:01 AM THIRD HELPER Please see scanned document for results of this study. 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
--- OUTSIDE RECORDS SUMMARY | 2024-05-17 10:56 | XMS_ITS | Data Portability ---
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 May remain on a program as long as it is effective. Return as needed for reprogramming. [email or web address] Not available 09/14/2021 10:07:26 Patient states t hat Gemtessa samples were very effective, but it is not covered by her insurance. She was also given a rx for Myrbetriq. [email or web address] Not available 09/14/2021 10:08:49 11/12/2021 [id number] Over Active Blad betty (OAB): -Managed with [...] minutes [email or web address] Not available 11/12/2021 11:46:55 04/09/2022 [id number] Test each progra m for at least 2 weeks, adjusting amplitude as needed. May remain on a program as long as it is effective. Return as needed for reprogramming. [email or web address] Not available 04/09/2022 12:34:22 Patient states t hat Gemtesa samples were effective, but the rx was too expensive, so she stopped taking. She would like to try the Gemtesa again, but wonders of it is ok t take every other day, to spread the prescription out, and decrease the expense. I will ask Afsaneh Bui, PAC. [email or web address] Not available 04/09/2022 12:37:43 12/06/2022 [id number] Test each progra m for at least 2 weeks, adjusting amplitude as needed. May remain on a program as long as it is effective. Return as needed for reprogramming. [email or web address] Not available 12/06/2022 10:55:41 04/28/2023 [id number] Over Active Blad betty (OAB): -Managed with [...] color -advantus YELLOW yellow Not Available [facility] [address] [address], [place], [address], 09/14/2021 10:41:46 09/15/19 22 09/14/2021 UA DIP CS ADVAN TUS appearance -advantus CLEAR clear Not Available [facility] [address], [place], [address], 09/14/2021 10:41:46 09/15/19 22 09/14/2021 UA DIP CS ADVAN TUS glucose -advantus NEGATI VE mg/dL negati ve Not Available [place] [facility] [address] [facility] [address], [place], [address], 09/14/2021 10:41:46 09/15/19 22 09/14/2021 UA DIP CS ADVAN TUS bilirubin -advantus NEGATI VE negati ve Not Available [facility] [address] [facility] [address], [place], [address], 09/14/2021 10:41:46 09/15/19 22 09/14/2021 UA DIP CS ADVAN TUS ketones -advantus NEGATI VE mg/dL negati ve Not Available [place] [facility] [address] [facility] [address], [place], [address], 09/14/2021 10:41:46 09/15/19 22 09/14/2021 UA DIP CS ADVAN TUS sp. gravity -advantus 1.010 1.010- 1.025 Not Available [facility] [address] [place] [address] [address], [place], [address], 09/14/2021 10:41:46 09/15/19 22 09/14/2021 UA DIP CS ADVAN TUS pH -advantus 6.0 5.0-8. 0 Not Available [facility] [address] [facility] [facility] [address], [place], [address], 09/14/2021 10:41:46 09/15/19 22 09/14/2021 UA DIP CS ADVAN TUS protein -advantus NEGATI VE mg/dL negati ve Not Available [facility] [address], [place], [address], 09/14/2021 10:41:46 09/15/19 22 09/14/2021 UA DIP CS ADVAN TUS urobilinogen -advantus 0.2 normal Not Available [facility] [address], [place], [address], 09/14/2021 10:41:46 09/15/19 22 09/14/2021 UA DIP CS ADVAN TUS nitrites -advantus NEGATI VE negati ve Not Available [facility] [address] [place] [address], [place], [address], 09/14/2021 10:41:46 09/15/19 22 09/14/2021 UA DIP CS ADVAN TUS blood -advantus SMALL negati ve abnormal Not Available [facility] [address] [place] [address] [address], [place], [address], 09/14/2021 10:41:46 09/15/19 22 09/14/2021 UA DIP CS ADVAN TUS leukocytes -advantus NEGATI VE negati ve Not Available [facility] [address] [place] [address] [address], [place], [address], 09/14/2021 10:41:46 09/15/19 22 09/14/2021 UA DIP CS ADVAN TUS performed by Bibi Ruiz Not Available [facility] [address], [place], [address], 09/14/2021 10:41:46 09/15/19 22 09/14/2021 UA DIP [...] ----- ----- ----- ----- ---- Not Available [place] [facility] [address] [place] [address], [place], [address], 09/14/2021 10:41:46 09/15/19 22 09/14/2021 UA MICRO SCOPI C U-WBC 0 - 2 [hpf] 0 - 2 Not Available [facility] [address] [place] [address], [place], [address], 09/14/2021 10:41:47 09/15/19 22 09/14/2021 UA MICRO SCOPI C U-RBC 0 - 2 [hpf] 0 - 2 Not Available [facility] [address] [place] [address], [place], [address], 09/14/2021 10:41:47 09/15/19 22 09/14/2021 UA MICRO SCOPI C bacteria Small [hpf] negati ve abnormal Not Available [facility] [address] [place] [address], [place], [address], 09/14/2021 10:41:47 09/15/19 22 09/14/2021 UA MICRO SCOPI C squamous epi Small /lpf negati ve,sma ll Not Available [facility] [address] [place] [address], [place], [address], 09/14/2021 10:41:47 Result Notes None recorded. 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 Procedures Surgical History Date Name Laterality Status Provider Name and Address Organization Details Recorded Time 08/20/19 25 COMPLEX VISIT active ELMA Burciaga [address] [place] [address],[address], [address], [facility] 04/10/2024 11:39:57 08/20/19 25 Bladder Scan active ELMA Burciaga [address] [place] [address],[address], [address], [facility] 04/10/2024 11:41:06 04/28/20 23 Sacral neuromodulation w/o reprogramming completed ELMA Burciaga [address] [place] [address],[address], [place], [address], [facility] 04/28/2023 11:57:28 04/28/20 23 Bladder Scan completed Radhika Mathis [facility] 04/28/2023 11:36:21 12/07/19 23 Sacral neuromodulation w/o reprogramming completed Demetri Bosch [facility] 12/06/2022 11:08:45 04/09/20 22 Sacral Stimulator Reprogramming completed Demetri Bosch [facility] 04/09/2022 12:49:34 09/15/19 22 Bladder Scan completed Merry Ocampo [facility] 09/14/2021 10:25:15 09/15/19 22 Sacral neuromodulation w/o reprogramming completed Demetri Bosch [facility] 09/14/2021 10:15:12 08/03/19 22 Past Data Reviewed completed Charlotte Smith MD [address] [facility], [place], [address], [facility] 08/03/2021 08:29:52 08/03/19 22 Bladder Scan completed Usha Corado [facility] 08/03/2021 11:50:03 11/27/19 21 Sacral Stimulator Reprogramming completed Demetri Bosch [facility] 11/27/2020 12:44:01 09/17/19 20 Implant neuroelectrodes completed Not Available [facility] 12/13/2019 18:11:39 11/29/19 19 Insert bladder catheter completed Not Available [facility] 12/13/2019 18:11:39 11/14/19 15 Colonoscopy completed Lucinda Nuñez [facility] 11/11/2020 11:57:08 11/29/19 09 Total hip arthroplasty completed Not Available [facility] 12/13/2019 18:11:39 11/29/19 00 Unlisted procedure breast completed Not Available [facility] 12/13/2019 18:11:39 Appendectomy add-on completed Not Available [facility] 12/13/2019 18:11:39 Imaging Results None recorded. Procedure Notes None recorded. Medical Equipment None Reported. Allergies Allergen ID Allergen Name Allergen Category Reaction Reaction Severity Criticality Documentation Date Start Date Code Code System Note Provider Name and Address Organization Details Recorded Time 19861108 Product containin g nitroimid azole (product) medicatio n Not available Not available Not available 12/12/2019 17242 7004 SNOMED Not Available [facility] 0 23:50:45 19861202 sulindac medicatio n Not available Not available Not available 12/12/2019 33944 RxNorm Not Available [facility] 0 23:50:45 19870101 Medicinal product containin g penicilli n and acting as antibacte rial agent (product) medicatio n itching Not available Not available 12/12/2019 91446 05 SNOMED Not Available [facility] 0 23:50:45 008250 atorvasta tin medicatio n Not available Not available Not available 12/12/2019 82946 RxNorm Not Available [facility] 0 23:50:45 608795 tetracycl ine medicatio n Not available Not available Not available 12/12/2019 35020 RxNorm Not Available [facility] 0 23:50:45 641736 alendrona te sodium medicatio n Not available Not available Not available 12/12/201935155 2 RxNorm Not Available [facility] 0 23:50:45 329320 amoxicill in medicatio n Not available Not available Not available 12/12/2019 723 RxNorm Not Available [facility] 0 23:50:45 886030 oxybutyni n chloride Not available dizziness Not available Not available 12/12/2019 32959 RxNorm fatig ue Not Available [facility] 0 23:50:45 660034 aspirin medicatio n Not available Not available Not available 12/12/2019 1191 RxNorm Not Available [facility] 0 23:50:46 232796 losartan Not available Not available Not available Not available 12/12/2019 03994 RxNorm Not Available [facility] 0 23:50:46 160226 estrogens , conjugate d (FPC) medicatio n Not available Not available Not available 12/12/2019 4099 RxNorm Not Available [facility] 0 23:50:46 347724 ciproflox acin medicatio n Not available Not available Not available 12/12/2019 2551 RxNorm Not Available [facility] 0 23:50:46 823440 hydrochlo rothiazid e medicatio n Not available Not available Not available 12/12/2019 5487 RxNorm Not Available [facility] 0 23:50:46 139107 metoprolo l Not available Not available Not available Not available 12/12/2019 6918 RxNorm Not Available [facility] 0 23:50:46 826391 naproxen medicatio n Not available Not available Not available 12/12/2019 7258 RxNorm Not Available [facility] 0 23:50:46 19871104 clindamyc in Not available Not available Not available Not available 12/12/2019 2582 RxNorm Not Available [facility] 0 23:50:46 943984 Substance with sulfonami de structure and antibacte rial mechanism of action (substanc e) medicatio n Not available Not available Not available 11/11/2020 81104 8003 SNOMED [facility] 11:56:30 321014 Myrbetriq medicatio n swelling Not available Not available 10/05/2021 93311 92 RxNorm [address], [address], [facility] 2 13:18:14 809041 Sambuc[employer] [facility] Immune medicatio n Not available Not available Not available 04/09/2022 [id number] UNK Demetri Danitza [facility] 2 12:14:11 Medications Name Sig [...] Updated DateTime 04/09/2022 154.94 cm 27.8 kg/m2 35317.08 g Demetri Bosch [facility] 04/09/2022 12:13:52 Date Recorded Body height Body mass index (BMI) Body weight Provider Name and Address Organization Details Last Updated DateTime 12/06/2022 154.94 cm 25.5 kg/m2 17712.97 g Demetri Bosch [facility] 12/06/2022 10:41:56 Date Recorded Body height Body mass index (BMI) Body weight Provider Name and Address Organization Details Last Updated DateTime 04/28/2023 154.94 cm 25.5 kg/m2 91566.97 g Radhika Mathis [facility] 04/28/2023 11:25:35 Date Recorded Body height Body mass index (BMI) Body weight Provider Name and Address Organization Details Last Updated DateTime 09/14/2021 158.75 cm 26.5 kg/m2 45467.08 g Demetri Bosch [facility] 09/14/2021 09:54:39 Date Recorded Body height Body mass index (BMI) Body weight Provider Name and Address Organization Details Last Updated DateTime 09/14/2021 158.75 cm 26.5 kg/m2 44275.08 g Merry Ocampo [facility] 09/14/2021 10:08:57 Date Recorded Body height Body mass index (BMI) Body weight Provider Name and Address Organization Details Last Updated DateTime 11/12/2021 154.94 cm 27.8 kg/m2 74836.08 g Merry Ocampo [facility] 11/12/2021 11:32:20 Social History Question Answer Notes LastModified by Organizat ion Details LastModified Time Tobacco Smoking Status Never Smoker Not Available [facility] 12/13/2019 02:00:45 What Is Your Level Of Alcohol Consumption? None Information not available 09/14/2021 What Is Your Level Of Caffeine Consumption? Heavy Information not available 09/14/2021 Are You Currently Employed? No Information not available 09/14/2021 Race [place] Information n ot available 12/13/2019 Ethnicity Not /Lat vane Information not available 09/14/2021 Preferred Language Mexican Information not available 09/14/2021 Recreational Drug Use No Information not available 09/14/2021 Could You Be ? No Information not available 09/14/2021 Marital Status [email or web address] Informati on not available 12/13/2019 What Was The Date Of Your Most Recent Tobacco Screening? 12/06/2022 [email or web address] Information not available 12/06/2022 What Is Your [...] PCV 13 07/04/2017 completed STEPHEN Germain [facility] 04/28/2023 11:25:40 Past Encounters Encounter ID Performer Location Encounter Start Date Encounter Closed Date Diagnosis/Indication Diagnosis SNOMED-CT Code Diagnosis ICD10 Code [id number] Charlotte Smith MD [address] [address] 04/15/2020 10:02:52 04/25/2020 12:54:57 Overactive urinary bladder 809685796 N32.81 Urge incon tinence of urine 33237514 N39.41 [id number] Charlotte Smith MD [address] [address] 05/13/2020 10:14:48 05/13/2020 14:22:18 Overactive urinary bladder 743761160 N32.81 Urge incon tinence of urine 42703507 N39.41 History of urinary tract infection 6396137250 107 Z87.440 [id number] Charlotte Smith MD [address] [place] [address] 11/11/2020 11:46:55 11/11/2020 13:40:18 Overactive urinary bladder 669334561 N32.81 Urge incon tinence of urine 06687867 N39.41 [id number] Demetrijovita Bosch [facility] [address] [place] [address],it e [address] [place] [id number] 11/26/2020 10:15:12 12/02/2020 15:37:48 Overactive urinary bladder 931707601 N32.81 Nocturia 544074542 R35.1 [id number] Charlotte Smith MD [facility] [address] [place] [address] [place] [address] 08/03/2021 11:31:50 08/03/2021 12:09:22 Overactive urinary bladder 426584667 N32.81 Urge incon tinence of urine 53012669 N39.41 Nocturia 772369019 R35.1 [id number] ELMA Burciaga [facility] [address] [place] [address],[facility] e [address] [place] [id number] 09/14/2021 10:06:36 09/14/2021 14:16:12 Overactive urinary bladder 085334431 N32.81 Urge incon tinence of urine 23795733 N39.41 Nocturia 074528523 R35.1 [id number] Demetri Bosch [facility] [address] [place] [address] [place] [id number] 09/14/2021 09:30:06 09/14/2021 14:31:59 Overactive urinary bladder 551212037 N32.81 [id number] ELMA Burciaga [facility] [address] [place] [address] [place] [id number] 11/12/2021 11:29:59 11/12/2021 12:37:25 Overactive urinary bladder 250191918 N32.81 Urge incon tinence of urine 46092653 N39.41 Nocturia 653690465 R35.1 [id number] Demetri Bosch [facility] [address] [facility] [place] [address] 04/09/2022 11:43:46 04/09/2022 13:38:20 Overactive urinary bladder 391237443 N32.81 [id number] Demetri Bosch [facility] [address] [facility] [place] [address] 12/06/2022 10:28:13 12/06/2022 11:24:29 Overactive urinary bladder 577420258 N32.81 [id number] ELMA Burciaga [facility] [address] [facility] e [address] [place] [id number] 04/28/2023 11:22:38 04/28/2023 12:04:03 Overactive urinary bladder 753737542 N32.81 Urge incon tinence of urine 06762992 N39.41 Nocturia 124524401 R35.1 Health Concerns Section Related Observation LastModified by Organization Detai ls LastModified Time None Recorded Concern Status LastModified by Organization Details LastModified Time None Recorded Advance Directives Directive None Recorded Payers Encounter Date Sequence Insurance Name Policy Number Policy Betancourt Covered Member ID Betancourt Member ID Guarantor Name 09/14/2021 2 [place] [employer] Patsy A Wood [id number] Patsy [employer] Wood 09/14/2021 2 [facility] [id number] Patsy A Wood [id number] Patsy A Wood 11/12/2021 2 [place] [employer] Patsy A Wood [id number] Patsy [employer] Wood 11/12/2021 2 [place] [id number] Patsy A Wood [id number] Ptasy [employer] 04/09/2022 2 [place] [employer] Patsy A Wood [id number] Patsy A Wood 04/09/2022 2 [facility] [id number] Patsy A Wood [id number] Patsy A Wood 12/06/2022 2 [place] [employer] Patsy A Wood [id number] Patsy [employer] Wood 12/06/2022 2 [facility] [id number] Patsy Beltrán [id number] Patsy Beltrán 04/28/2023 2 [place] [employer] [facility] Patsy Beltrán [id number] Patsy Beltrán 04/28/2023 2 [facility] [id number] Patsy Beltrán [id number] Patsy Beltrán Notes Date Note Type Note Provider Name and Address Organization Details Recorded Time 09/14/2021 text/html 09/14/21:Patient presents to follow up for overactive bladder (OAB). Managed with interstim.Patient saw Demetri for reprogramming prior to appointment today.Improvement on Gemtesa, too expensive. She states that her symptoms are much better than prior to implant. Voids every 3-4 hours during the day and most of the time she can get to the bathroom without leakage. Wakes up to void 2-3 times. She does limit fluids after 6:30PM. She is happy with control with interstim. 08-03-19 (Dr. Espino's)sp interstim in 2019. has some UUI at [...] . on Lasix as needed 11/26/20: (Dr. Espino's)SP Interstim lead and IPG SureScan 04-01-20 for [...] to be almost every hour. ELMA Burciaga [address] [place] [address],[address], [place], [address], [facility] 09/14/2021 10:49:41 11/12/2021 text/html 11/12/21:Patient presents to follow up for overactive bladder (OAB). Managed with interstim.Phone visit today due to acute illness with diarrhea.Trial of myrbetriq 50 mg daily after last [...] with sjorgrens. This visit was conducted using [employer] phone technology. Prior to conducting our health visit, the patient and I discussed the risks, benefits and alternatives to phone visits. The patient elected to proceed with the phone visit. ELMA Burciaga [address] [place] [address],[address], [place], [address], [facility] 11/12/2021 11:50:24 12/06/2022 text/html Frequent Urinati on {{0 1 2 3}} Urine leakage related to the feeling of Urgency {{0 1 2 3}} Urine leakage related to physical activity {{0 1 2 3}} Small amount of urine leakage (drops) {{0 1 2 3}} Difficulty emptying your bladder {{0 1 2 3}} Pain or discomfort in the lower abdominal or genital area {{0 1 2 3}} Current program: 1, 2, 3, 4, 5, [...] changed Rate chaanged Resolution changed Demetri Bosch [facility] 12/06/2022 11:08:58 04/28/2023 text/html 04/28/23:Patient presents to follow up for overactive bladder (OAB).InterStim implant 04/01/[address] Smith[address]Last saw Demetri 12/06/22. Feels comfortable changing programs. Has not changed since she saw Demetri.Takes Gemtesa prn. Usually will take two day [...] is using estrogen/clobetasol, 2-3 times per week. __11/12/21: (video)Patient presents to follow up for overactive bladder (OAB). Managed with interstim.Phone visit today due to acute illness with diarrhea.Trial of myrbetriq 50 mg daily after last [...] things now. 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 09/14:Patient presents to follow up for overactive bladder (OAB). Managed with interstim.Patient saw Demetri for reprogramming prior to appointment today.Improvement on Gemtesa, too expensive. She states that her symptoms are much better than prior to implant. Voids every 3-4 hours during the day and most of the time she can get to the bathroom without leakage. Wakes up to void 2-3 times. She does limit fluids after 6:30PM. She is happy with control with interstim. 08-03-19 22 (Dr. Espino's)sp interstim in 2019. has some UUI at [...] . on Lasix as needed 11/26/20: (Dr. Espino's)SP Interstim lead and IPG SureScan 04-01-20 for [...] be almost every hour. ELMA Burciaga [address] [facility],[address], [place], [address], [facility] 04/28/2023 11:58:40 OBGyn Episode No OBEpisode recorded.
--- OUTSIDE RECORDS SUMMARY | 2024-05-17 10:56 | XMS_ITS | Continuity of Care Document ---
Author Organization [facility] Address [address] [place] [address] Phone Care Team Providers Care Portable Feed Mill Operator Name Role Phone Helder Medina MD Unavailable [...] Antibodies Dna Antibody, Single Strand Dna Antibody, [place] Nuclear Antigen Antibodies Rheumatoid Factor, IGM Rheumatoid Factor, IGG, IGA Advance Directives Directive Yes / No Effective Date File Name No Information Encounters Encounter Description Practice Location Reason(s) For Visit Diagnoses Date Provider Providers Copied on Encounter Office/Outpa tient Visit, Est [facility], [address], [place], [address], [place] tel:[phone] [facility], Sjogren syndrome w/ inflammatory arthritis Apr-2 3 4 Lebedoff Helder. [address], [place], [place], [facility], [place]. tel:[phone] Referring Provider: Helder Jain, [address], [place], [address]. tel:[phone] [facility], [address], [place], [address], [place] tel:[phone] [facility], No Information Oct- 0 4 [facility]bed[place] Helder. [address], [place], [address], [place]. tel:[phone] Referring Provider: Helder Jain, [address], [place], [place], [facility]. tel:[phone] Office/Outpa tient Visit, Est [facility], [address], [place], [address], [place] tel:[phone] [facility], Sjogren syndrome w/ inflammatory arthritisPain in left foot Oct- 0 4 [facility]bed[place] Helder. [address], [place], [address], [place]. tel:[phone] Referring Provider: Helder Jani, [address], [place], [place], [facility]. tel:[phone] Office/Outpa tient Visit, Est [facility], [address], [place], [address], [place] tel:[phone] [facility], Sjogren syndrome w/ inflammatory arthritisPrim mauri osteoarthriti s, right hand Apr-0 4 3 [place]bed[place] Helder. [address], [place], [address], [place]. tel:[phone] Referring Provider: Helder Jain, [address], [place], [address]. tel:[phone] Office/Outpa tient Visit, Est [facility], [address], [place], [address], [place] tel:[phone] [facility], Sicca syndrome, unspecifiedWe akness 3 Lebedoff Helder. [address], [place], [address], [place]. tel:[phone] Referring Provider: Helder Jain, [address], [place], [address]. tel:[phone] Office/Outpa tient Visit, Est [facility], [address], [place], [address], [place] tel:[phone] [facility], Sicca syndrome, unspecifiedPa in in left shoulder 2 Lebedoff Helder. [address], [place], [address], [place]. tel:[phone] Referring Provider: Helder Jain, [address], [place], [address]. tel:[phone] Office/Outpa tient Visit, Est [facility], [address], [place], [address], [place] tel:[phone] [facility], Sicca syndrome, unspecifiedDy spnea 2 Lebedoff Helder. [address], [place], [address], [place]. tel:[phone] Referring Provider: Helder Jain, [address], [place], [address]. tel:[phone] Office/Outpa tient Visit, Est [facility], [address], [place], [address], [place] tel:[phone] [facility], Sicca syndrome, unspecifiedOt her fci (current) drug therapyPrimar y OA of right handDyspnea 1 Adam Pendleton. [address], [place], [address], [place]. tel:[phone] Referring Provider: Helder Jain, [address], [place], [address]. tel:[phone] Office/Outpa tient Visit, New [facility], [address], [place], [address], [place] tel:[phone] [facility], Sicca syndrome, unspecifiedPa in in rt ankleOther intermodal owner operator truck driver (current) drug therapy 1 Adam Pendleton. [address], [place], [address], [place]. tel:[phone] Referring Provider: Helder Jain, [address], [place], [address]. tel:[phone] [facility], [address], [place], [address], [place] tel:[phone] [facility] No Information 1 Mo Sullivan. [facility] [address] [facility] [address], [place], [address], [place]. tel:[phone] Family History Family Member Type Diagnosis Age At Onset No Information Immunizations Vaccine Date Status Comments COVID-19 Moderna administered Source: Ot er Provider COVID-19 Pfizer administered Note: 1 ; Source: Other Provider Payers Payer name Insurance type Covered republican ID Authoriza tion(s) [employer] Medicare Adv [id number] MB [id number] Social History Type Description Quantity Date Captured Comments Alcohol Use Details Caffeine Use Details Tobacco Use Status Current non-smoker Smoking Status Never smoker She gabi es in [place] with her . She is retired. 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 This appears to be well controlled currently. 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
--- OUTSIDE RECORDS SUMMARY | 2024-05-17 10:56 | XMS_ITS | Continuity of Care Document ---
Author Organization [facility] Address [address] [place] [address] Phone Care Team Providers Care Headlight Adjuster Name Role Phone Usha Dickinson Unavailable Unavailable [...] on Encounter [facility], [address], [facility] [place], [id number], [place] tel:[phone] No Information [facility], [address], [place], [place], [id number] , [place]. [phone] Office/Outpat ient Visit,Est, Mod [facility], [address], [place], [place], [id number], [place] tel:[phone] [facility] Other forms of scoliosis, thoracolumbar regionL2 wedge compression fracture, initial encounter for closed fractureSpondy lolisthesis, lumbar region 0 Puente Usha. [facility], [address], [place], [place], [id number] , [place]. tel:[phone] Referring Provider: Rakel Arvizu, [facility] [address] [place], [address]. tel:[phone] Office/Outpat ient Visit,Est, Mod [facility], [address], [facility] [place], [id number], [place] tel:[phone] [facility] L2 wedge compression fracture, initial encounter for closed fractureOther forms of scoliosis, thoracolumbar regionSpondylo listhesis, lumbar region 0 Kwame Kerr. [facility], [address], [place], [place], [id number] , . tel:[phone] Referring Provider: Rakel Arvizu [place] [address] [place], [address]. tel:[phone] Office/Outpat ient Visit,[facility], [facility], [address], [facility] [place], [address], [place] tel:[phone] [facility] [place] L2 wedge compression fracture, initial encounter for closed fractureOther forms of scoliosis, thoracolumbar regionSpondylo listhesis, lumbar region 0 Kwame Kerr. [facility], [address], [place], [place], [id number] , [place]. tel:[phone] Referring Provider: Rakel Arvizu Booker [address] [place], [address]. tel:[phone] Family History Family Member Type Diagnosis Age At Onset No Information Payers Payer name Insurance type Covered alliance party ID Authoralethaa tishannon(s) Medicare MB [id number] [facility] [id number] [facility] [id number] Social History Type Description Quantity Date Captured [...]
== END 2024-05-17 10:54 | disposition home or self-care (01) ==
LOC: WOUND 10:53
PROVIDERS: PCP Physician Assistant Medical; Visit Provider Nurse Practitioner Family
DX: I87.2 Venous insufficiency (chronic) (peripheral) (principal); I73.9 Peripheral vascular disease, unspecified; I89.0 Lymphedema, not elsewhere classified; L97.322 Non-pressure chronic ulcer of left ankle with fat layer exposed
CPT/HCPCS: 97597

== ENCOUNTER 2024-05-25 09:58 | Outpatient (CLI) | payer OTHER, SELFPAY ==
--- OUTSIDE RECORDS SUMMARY | 2024-05-25 10:01 | XMS_ITS | Clinical Summary ---
Author Organization [employer] [facility] Address [place], [place] [address] Care Team Providers Care Ice Guard Tester Name Role Phone Kd Restrepo MD Unavailable [phone] Jose Napier PANettieC Primary Care Provider [phone] Charlotte Smith MD Unavailable [phone] Charlotte Anderson MD Unavailable [phone] Allergies Active Allergy Reactions Criticality Noted Date Comments Amoxicillin 01/19/2007 Aspirin Rash,Itching 01/20/2006 Atorvastatin Myalgia 12/27/2014 Blood-Group Specific Substance Other - Describe In Comment Field High 09/01/2016 Patient has Anti-D. Blood product orders may be delayed. Draw one red top and two purple top tubes for all Type and Screen/Type and Crossmatch orders. V-Xdey-Gladtltlz-Propol-Eld erb *Unknown 02/28/2024 Ciprofloxacin Rash 05/31/2012 Clindamycin [...] End Date Status FOLIC ACID 800 MCG TABIndications:Si cca syndrome (HC) 1 tab daily 0 10/25/19 08 Active multivitamin (MVI) tablet Take 1 tablet by mouth once daily. 0 05/04/20 10 Active LACTOBACILLUS ACIDOPHILUS (PROBIOTIC ORAL) Take 1 capsule by mouth once daily. Active MEDICAL SUPPLY, MISCELLANEOUS (GRADUATED COMPRESSION STOCKINGS)Indicat ions:Varicose vein of leg For personal use. Length: calf Strength: 20-30 mmHg Circumference in cm: For calf: Ankle 22cm, Calf 36cm, 1 Packet 01/21/20 17 Active polyethylene glycol (MIRALAX) 17 g powder for solution Not taking (08/05/2023). Active calcium carbonate-vitamin D3, 500 mg-400 units, (OSCAL 500 + D) tabletIndications :Age-related osteoporosis with current pathological fracture, sequela Take 1 tablet by mouth 2 times daily before meals. 60 tablet 12/01/19 18 Active PROLIA 60 mg/mL injection USE DIRECTED EVERY SIX MONTHS 1 05/29/20 18 Active acetaminophen SR (TYLENOL ARTHRITIS PAIN) 650 mg Extended-Release tablet Take 1 tablet by mouth every 8 hours if needed. Max acetaminophen dose: 4000mg in 24 hrs. 0 12/31/19 20 Active Cranberry 500 mg capIndications:Pr ediabetes 1 capsule once a day. 0 05/26/20 20 Active betamethasone dipropionate 0.05% (DIPROSONE 0.05% OINTMENT) 0.05 % ointment Apply 1 Tube topically to affected area(s) one time if needed. Pt uses 2-3 times per week 05/26/20 Active levothyroxine (SYNTHROID) 112 mcg tabletIndications :Hypothyroidism (acquired) Take 1 tablet by mouth before breakfast. 90 tablet 3 06/18/20 Active Additional Information Patient taking differently:112 mcg Oral BEFORE BREAKFAST,takes Tuesday through Tuesday, not on sundays., Reported on 12/05/2023 predniSONE (DELTASONE) 10 mg tabletIndications :Mixed connective tissue disease (HC) TAKE ONE TABLET BY MOUTH EVERY OTHER DAY 45 tablet 3 06/18/20 20 Active triamcinolone (ARISTOCORT; KENALOG) 0.1 % creamIndications: Atopic dermatitis, unspecified type Apply topically to affected area(s) twice daily behind the left ear for 2 weeks. 30 g 06/18/20 20 Active warfarin (COUMADIN) 2.5 mg tabletIndications :Anticoagulation monitoring, INR range 2-3,Pulmonary embolism, bilateral (HC) Take by mouth 1.25 mg (2.5 mg x 0.5) every Tue; 2.5 mg (2.5 mg x 1) all other days OR as directed 11/11/19 21 Active omeprazole (PRILOSEC) 20 mg Delayed-Release capsuleIndication s:Gastroesophagea l reflux disease without esophagitis TAKE ONE CAPSULE BY MOUTH EVERY DAY BEFORE A MEAL 90 Capsule 11/21/19 21 Active pilocarpine (SALAGEN) 5 mg tabletIndications :Diffuse connective tissue disease (HC) TAKE ONE TABLET BY MOUTH UP TO THREE TIMES DAILY 270 Tablet 12/12/19 21 Active furosemide (LASIX) 20 mg tabletIndications :SOB (shortness of breath),Nonrheuma tic mitral valve regurgitation Take 1 Tablet (20 mg) by mouth every morning. 90 Tablet 3 03/18/20 23 Active lidocaine, anorectal, 5% topical 5 % cream once daily if needed. baclor/jesu/mita/ lido Active cycloSPORINE (Restasis) 0.05 % ophthalmic emulsionIndicatio ns:Dry eye syndrome, unspecified laterality Place 1 Drop into both eyes every 12 hours. 60 Each 3 05/25/20 23 Active clopidogreL (PLAVIX) 75 mg tabletIndications :Peripheral arterial disease (HC) Take 1 Tablet (75 mg) by mouth once daily. 90 Tablet 05/05/20 24 025 Active dilTIAZem CD (CARDIZEM CD) 240 mg extended release 24 hr capsuleIndication s:Essential hypertension Take 1 Capsule (240 mg) by mouth once daily. 90 Capsule 05/18/20 24 Active fluocinonide 0.05% topical (LIDEX) 0.05 % cream Apply topically to affected area(s) 2 times daily. 1 Tube 0 12/20/19 14 024 Discontinued(*I P Discontinued) clobetasol 0.05% (TEMOVATE 0.05% OINTMENT) 0.05 % ointmentIndicatio ns:Lichen sclerosus Apply topically daily for 12 weeks, then 3 times a week. 1 Tube 3 01/21/20 17 024 Discontinued(*I P Discontinued) busPIRone (BUSPAR) 5 mg tabletIndications :Anxiety TAKE ONE TABLET BY MOUTH THREE TIMES DAILY 90 Tablet 11/21/19 21 024 Discontinued(*P atient states no longer taking) dilTIAZem CD (CARDIZEM CD) 240 mg extended release 24 hr capsuleIndication s:Essential hypertension Take 1 Capsule (240 mg) by mouth once daily. 90 Capsule 3 03/18/20 23 024 Discontinued diphenoxylate-atr opine, 2.5-0.025 mg, (LOMOTIL) 2.5-0.025 mg tablet TAKE 1 TABLET BY MOUTH ONE TIME DAILY* 11/19/19 24 024 Discontinued(*I P Discontinued) Active Problems Problem Noted Date Diagnosed Date Atherosclerosis of ute [place] ar teries of left leg with ulceration [...] Date Anticoagulation monitoring, INR range 2-3 [Z79.01]; Scribner Target 2.5-3.0 12/06/2016 1 Pessary maintenance 02/25/2016 [...] Encounters Date Type Department Care Team Description 05/18/2024 10:30 AM HAND FORMER Office Visit [facility] [address] [place] [phone] Follow Up (LLE angio, discuss Plavix ) 05/18/2024 Telephone [facility] [address] [place] [phone] Adelaide Eid MD Blood Pressure 05/18/2024 Travel 05/17/2024 Refill [facility] [address] [place] [address] Adelaide Eid MD Refill Request (Diltiazem Cd) 05/13/2024 Travel 05/11/2024 Telephone [facility] [address] [place] [phone] Charlotte Anderson MD Questions 05/10/2024 2:00 PM HAND FORMER Ancillary Procedure [facility] [address] [place] [address] 05/10/2024 Travel 05/07/2024 Telephone [facility] [address] [place] [phone] Charlotte Anderson MD Questions (Medication questions and concerns) 05/06/2024 Travel 05/04/2024 7:30 AM CDT Anesthesia Event [facility] [address] [place] [address] Delia Chavira MD 05/04/2024 5:27 AM CDT - 05/04/2024 4:40 PM CDT Hospital Encounter [facility] [address] [place] [address] Charlotte Anderson MD Peripheral arterial disease (HC) (Primary Dx) Discharge Disposition: Home Self Care 05/04/2024 Travel 05/02/2024 Travel 04/09/2024 9:30 AM CDT Office Visit [facility] [address] [place] [phone] Charlotte Anderson MD Follow Up ( Venous stasis ulcer of ankle, left ) 04/09/2024 Travel 04/05/2024 Travel 04/02/2024 Telephone [facility] [address] [place] [phone] Cahrlotte Anderson MD 03/30/2024 Telephone [facility] [address] [place] [phone] Charlotte Anderson MD Questions 03/21/2024 Telephone [facility] [address] [place] [phone] Charlotte Anderson MD status of left wound ankle 03/01/2024 3:30 PM CDT [facility] [address] [facility] [address] [place] [address] Olvin Haji MD Consult (CT, US & MRI - spot on pancreas) 03/01/2024 Travel 02/28/2024 10:00 AM CDT Office Visit [facility] [address] [facility] [place] [address] Tomas Page, OD Eye Exam (CEE) 02/28/2024 Travel from Last 3 Months Immunizations Name Administration Dates Next Due AMB INFLUENZA IIV3 (AGE 65+ YRS) PF (Flu Clinic Only) 03/23/2017 AMB Influenza, IIV3 (Age >=3 years) Preserve Free (Flu Clinic Only) 04/08/2009 AMB Influenza, IIV3 (Age >=3 years)(Flu Clinic Only) 04/06/2013,04/16/2011,04/24/2008 COVID-19 vaccine ([employer] 30mcg/0.3mL) MARY SWEENEY 09/02/2020,08/12/2020 Influenza A (H1N1), [...] Sign Reading Time Taken Comments Blood Pressure 197/87 05/18/2024 10:31 AM HAND FORMER Pulse 67 05/18/2024 10:29 AM HAND FORMER Temperature 36 C (96.8 F) 05/04/2024 9:56 AM CDT Respiratory Rate 12 05/18/2024 10:29 AM HAND FORMER Oxygen Saturation 98% 05/18/2024 10:29 AM HAND FORMER Inhaled Oxygen Concentration - - Weight 63 kg (139 lb) 05/04/2024 5:57 AM CDT Height 149.9 cm (4' 11) 05/04/2024 5:57 AM CDT Body Mass Index 28.07 05/04/2024 5:57 AM CDT Plan of Treatment Upcoming Encounters Date Type Department Care Team (Late st Contact Info) Description 06/08/2024 10:30 AM HAND FORMER Office Visit [facility] [address] [place] [address] [place] [address] [place] [address] 08/22/2024 8:30 AM HAND FORMER Appointment [facility] [address] [place] [address] 08/22/2024 9:15 AM HAND FORMER Appointment [facility] [address] [place] [address] 08/22/2024 11:00 AM HAND FORMER Office Visit [facility] [address] [place] [phone] Charlotte Anderson MD [address] [place] [address] 08/30/2024 10:00 AM HAND FORMER Office Visit [facility] [address] [place] [address] [place] [address] [place] [address] Health Maintenance Due Date Last Done Comments [...] history exists Medical Devices Implanted Type Area Automatic Lump Making Machine Tender Device Identifier Shelf Expiration Date Model / Serial / Lot Lead Kit 4.32mm Spacing 28cm Length Interstim - [id number] Implanted:Qty: 1 on 04/01/2020 by Charlotte Smith MD at [facility] N/A: Sacrum [employer] Pain Therapy 09/30/2021 [id number] / / [id number] Stimulator 7.7mm 14cc Interstim Ii - [id number] Implanted:Qty: 1 on 04/01/2020 by Charlotte Smith MD at [facility] N/A: Sacrum [employer] Pain Therapy 03/31/2021 [id number] / [id number] / Description:PIN [id number] Procedures Procedure Name Priority Date/Time Associated Diagnosis Comments ECHO TTE COMPLETE WO CONTRAST Routine 05/10/2024 2:24 PM HAND FORMER Nonrheumatic mitral valve regurgitation [facility] ACTIVATED CLOTTING TM CV Timed 05/04/2024 9:31 AM CDT [facility] ACTIVATED CLOTTING TM CV Timed 05/04/2024 9:00 AM CDT [facility] ACTIVATED CLOTTING TM CV Timed 05/04/2024 8:33 AM CDT PROTIME-INR STAT 05/04/2024 6:58 AM CDT BASIC METABOLIC PANEL STAT 05/04/2024 6:19 AM CDT CBC W PLT NO DIFF Preop 05/04/2024 6:1 9 AM CDT XR DXA BONE DENSITY 2 SITES AXIAL Routine 07/02/2019 11:48 AM HAND FORMER Osteopenia of multiple sites from Last 3 Months or Most Recently Relevant to Health Maintenance Results * ECHO TTE COMPLETE WO CONTRAST (05/10/2024 2:24 PM HAND FORMER) AORTIC VALVE MEAN PG 5 mmHg EJECTION FRACTION 58 % PEAK TR VELOCITY 2.7 m/s LVEDD 4.7 cm MITRAL VALVE MR ERO 21 mm2 EJECTION FRACTION 55 - 60% Anatomical Region Laterality Modality Ultrasound 05/10/2024 1:46 PM HAND FORMER Narrative 05/10/2024 4:38 PM HAND FORMER ECHOCARDIOGRAM RODERICK HEATON : 1940 83 years Study Date: 05/10/2024 1:46:47 PM Gender: F BP: 133/80 mmHg Height: 149.86 cm BSA: 1.58 m Weight: 63.05 kg Tech: [facility] MD: ADELAIDE EID Site: [facility] Reading Location: [facility] Patient Location: Outpatient. Procedure: 2D, Color Doppler [...] Valve: Vmax 1.4 m/s DENISSE (V) 2.05 cm VTI 0.30 m DENISSE (I) 2.05 cm LVOT V max 1.0 m/s Max PG 8 mmHg LVOT VTI 0.21 m Mean PG 5 mmHg SV 62 ml Dim Index 0.69 SV index 39 ml/m CO 3.8 l/min CI 2.4 l/min/m Mitral Valve: MVA 2.9 cm MR ERO 0.21 cm MV P 1/2 76 msec MR Vol. 35 ml MV Mean G 3 mmHg MR TVI 1.66 m Tricuspid Valve and estimated PA pressures: TR Vmax 2.7 m/s TAPSE 1.9 cm TR maxG 29 mmHg . This study was interpreted by an [facility] accredited facility. Final Procedure Note Carlos A Vidales MD - 05/10/2024 ECHOCARDIOGRAM RODERICK HEATON : 1940 83 years Study Date: 05/10/2024 1:46:47 PM Gender: F BP: 133/80 mmHg Height: 149.86 cm BSA: 1.58 m Weight: 63.05 kg Tech: [facility] MD: ADELAIDE EID Site: [facility] [place] [facility] Reading Location: [facility] Patient Location: Outpatient. Procedure: 2D, Color Doppler [...] Valve: Vmax 1.4 m/s DENISSE (V) 2.05 cm VTI 0.30 m DENISSE (I) 2.05 cm LVOT V max 1.0 m/s Max PG 8 mmHg LVOT VTI 0.21 m Mean PG 5 mmHg SV 62 ml Dim Index 0.69 SV index 39 ml/m CO 3.8 l/min CI 2.4 l/min/m Mitral Valve: MVA 2.9 cm MR ERO 0.21 cm MV P 1/2 76 msec MR Vol. 35 ml MV Mean G 3 mmHg MR TVI 1.66 m Tricuspid Valve and estimated PA pressures: TR Vmax 2.7 m/s TAPSE 1.9 cm TR maxG 29 mmHg . This study was interpreted by an [facility] accredited facility. Final Adelaide Eid MD ECHO ORD * (ABNORMAL) ACTIVATED CLOTTING TIME [id number] ACT (05/04/2024 9:31 AM CDT) Only the most recent of3 resultswithin the time period is included. ACTIVATED CLOTTING TIME, POCT 128(H) 74 - 125 sec 05/04/2024 10:[address] [facility] Blood BLOOD SPECIMEN / Unknown 05/04/2024 9:31 AM CDT 05/04/2024 10:38 AM CDT Charlotte Anderson MD HEMATOLOGY [facility] SENDOUT [place]NAL ZIP [id number] [address] [place] [address] * (ABNORMAL) PROTIME-INR (05/04/2024 6:58 AM CDT) INR 1.4(H) <1.3 05/04/2024 7:[address] [facility] PROTIME 16.0(H) 10.6 - 12.4 sec 05/04/2024 7:[address] [facility] Blood BLOOD SPECIMEN / Unknown Non-Lab Venipuncture / Unknown 05/04/2024 6:58 AM CDT 05/04/2024 7:02 AM CDT [facility] - 05/04/2024 7:13 AM CDT Therapeutic Range 2.0-3.0 for most anticoagulated patients 2.5-3.5 [...] is on UFH. Charlotte Anderson MD HEMATOLOGY [facility] SENDOUT INTERNAL ZIP [id number] [place] [address] * (ABNORMAL) CBC with Platelets no Differential (05/04/2024 6:19 AM CDT) WHITE BLOOD COUNT 5.9 4.5 - 11.0 thou/cu mm 05/04/2024 7:01 AM [facility] RED BLOOD COUNT 3.88(L) 4.00 - 5.20 mil/cu mm 05/04/2024 7:01 AM [facility] HEMOGLOBIN 12.1 12.0 - 16.0 g/dL 05/04/2024 7:01 AM [facility] HEMATOCRIT 36.9 33.0 - 51.0 % 05/04/2024 7:01 AM [facility] MCV 95 80 - 100 fL 05/04/2024 7:01 AM [facility] MCH 31.2 26.0 - 34.0 pg 05/04/2024 7:01 AM [facility] MCHC 32.8 32.0 - 36.0 g/dL 05/04/2024 7:01 AM [facility] RDW 14.2 11.5 - 15.5 % 05/04/2024 7:01 AM [facility] PLATELET COUNT 222 140 - 440 thou/cu mm 05/04/2024 7:01 AM [facility] MPV 9.3 6.5 - 11.0 fL 05/04/2024 7:01 AM [facility] NRBC 0.0 % 05/04/2024 7:01 AM [facility] ABS NRBC 0.0 thou /cu mm 05/04/2024 7:01 AM [facility] Blood BLOOD SPECIMEN / Unknown Non-Lab Venipuncture / Unknown 05/04/2024 6:19 AM CDT 05/04/2024 6:53 AM T Marcus WILLS HEMATOLOGY [facility] SENDOUT [place]IP [id number] [address] [place] [address] * (ABNORMAL) Basic Metabolic Panel (05/04/2024 6:19 AM T) SODIUM 139 136 - 145 mmol/L 05/04/2024 7:28 AM [facility] POTASSIUM 3.4(L) 3.5 - 5.1 mmol/L 05/04/2024 7:28 AM [facility] CHLORIDE 101 98 - 107 mmol/L 05/04/2024 7:28 AM [facility] CO2,TOTAL 28 22 - 29 mmol/L 05/04/2024 7:28 AM [facility] ANION GAP 10 5 - 18 05/04/2024 7:28 AM [facility] GLUCOSE 83 70 - 99 mg/dL 05/04/2024 7:28 AM [facility] CALCIUM 9.1 8.8 - 10.2 mg/dL 05/04/2024 7:28 AM [facility] BUN 19 8 - 23 mg/dL 05/04/2024 7:28 AM [facility] CREATININE 1.04(H) 0.50 - 0.90 mg/dL 05/04/2024 7:28 AM [facility] BUN/CREAT RATIO 18 10 - 20 7:28 AM [facility] eGFR 53(L) >90 mL/min/1.7 3m2 05/04/2024 7:28 AM [facility] Comment:As of 2021, eG FR is calculated by the CKD-EPI creatinine equation without race adjustment. eGFR can be influenced by muscle mass, exercise, and diet. The reported eGFR is an estimation only and is only applicable if the renal function is stable. Blood BLOOD SPECIMEN / Unknown Non-Lab Venipuncture / Unknown 05/04/2024 6:19 AM CDT 05/04/2024 6:52 AM CDT Marcus WILLS CHEMISTRY [facility] SENDOUT [place]NAL ZIP [id number] [address] [place] [address] * (ABNORMAL) XR DXA BONE DENSITY 2 SITES AXIAL (07/02/2019 11:48 AM HAND FORMER) Anatomical Region Laterality Modality Spine, HIPS, HIPL, HIPR Other Narrative 07/06/2019 11:01 AM HAND FORMER Please see scanned document for results of this study. Rakel Connor DO DEXA from Last 3 Months or Most Recently Relevant to Health Maintenance Advance Directives Documents on File Type Date Recorded Patient Personal Development Educator Expl anation Healthcare Directive 05/04/2024 5:29 AM [...] 8:45 AM 09/01/2016 4:04 PM Care Teams Ice Guard Tester Relationship Specialty Start Date End Date Jose Napier, SHIRAC [address] [place] [address] PCP - General Physician Frame Welder Cargo Utility Trailers 03/01/24 Kd Restrepo MD Endocrinology 11/24/11 Charlotte Smith MD [address] [place] [address] Surgery - Urology 03/01/24 Charlotte Anderson MD [address] [place] [address] Surgery - Vascular 03/21/24
--- OUTSIDE RECORDS SUMMARY | 2024-05-25 10:01 | XMS_ITS | Continuity of Care Document ---
Author Organization [facility] Address [address] [place] [address] Phone Care Team Providers Care Printer Repair Technician Name Role Phone Helder Medina MD [...] Antibodies Dna Antibody, Single Strand Dna Antibody, [place] Nuclear Antigen Antibodies Rheumatoid Factor, IGM Rheumatoid Factor, IGG, IGA Advance Directives Directive Yes / No Effective Date File Name No Information Encounters Encounter Description Practice Location Reason(s) For Visit Diagnoses Date Provider Providers Copied on Encounter Office/Outpa tient Visit, Est [facility], [address], [place], [address], [place] tel:[phone] [facility], Sjogren syndrome w/ inflammatory arthritis Apr-2 3 4 [facility]bed[facility] Helder. [address], [place], [place], [facility], [place]. tel:[phone] Referring Provider: Helder Jain, [address], [place], [address]. tel:[phone] [facility], [address], [place], [address], [place] tel:[phone] [facility], No Information Oct- 0 4 [facility] Helder. [address], [place], [address], [place]. tel:[phone] Referring Provider: Helder Jain, [address], [place], [place], [facility]. tel:[phone] Office/Outpa tient Visit, Est [facility], [address], [place], [address], [place] tel:[phone] [facility], Sjogren syndrome w/ inflammatory arthritisPain in left foot Oct- 0 4 [facility] Helder. [address], [place], [address], [place]. tel:[phone] Referring Provider: Helder Jain, [address], [place], [place], [facility]. tel:[phone] Office/Outpa tient Visit, Est [facility], [address], [place], [address], [place] tel:[phone] [facility], Sjogren syndrome w/ inflammatory arthritisPrim mauri osteoarthriti s, right hand Apr-0 4 3 [facility] Helder. [address], [place], [address], [place]. tel:[phone] Referring Provider: Helder Jain, [address], [place], [address]. tel:[phone] Office/Outpa tient Visit, Est [facility], [address], [place], [address], [place] tel:[phone] [facility], Sicca syndrome, unspecifiedWe akness 3 [facility]bed[facility] Helder. [address], [place], [address], [place]. tel:[phone] Referring Provider: Helder Jain, [address], [place], [address]. tel:[phone] Office/Outpa tient Visit, Est [facility], [address], [place], [address], [place] tel:[phone] [facility], Sicca syndrome, unspecifiedPa in in left shoulder 2 Lebedoff Helder. [address], [place], [address], [place]. tel:[phone] Referring Provider: Helder Jain, [address], [place], [address]. tel:[phone] Office/Outpa tient Visit, Est [facility], [address], [place], [address], [place] tel:[phone] [facility], Sicca syndrome, unspecifiedDy spnea 2 Lebedoff Helder. [address], [place], [address], [place]. tel:[phone] Referring Provider: Helder Jain, [address], [place], [address]. tel:[phone] Office/Outpa tient Visit, Est [facility], [address], [place], [address], [place] tel:[phone] [facility], Sicca syndrome, unspecifiedOt her halfway (current) drug therapyPrimar y OA of right handDyspnea 1 Adam Pendleton. [address], [place], [address], [place]. tel:[phone] Referring Provider: Helder Jain, [address], [place], [address]. tel:[phone] Office/Outpa tient Visit, New [facility], [address], [place], [address], [place] tel:[phone] [facility], Sicca syndrome, unspecifiedPa in in rt ankleOther computer terminal operator (current) drug therapy 1 Adam Pendleton. [address], [place], [address], [place]. tel:[phone] Referring Provider: Helder Jain, [address], [place], [address]. tel:[phone] [facility], [address], [place], [address], [place] tel:[phone] [facility] No Information 1 Mo Sullivan. [facility] [address] [facility] [address], [place], [address], [place]. tel:[phone] Family History Family Member Type Diagnosis Age At Onset No Information Immunizations Vaccine Date Status Comments COVID-19 Moderna administered Source: Ot er Provider COVID-19 Pfizer administered Note: 1 ; Source: Other Provider Payers Payer name Insurance type Covered alliance party ID Authoriza tion(s) [employer] Medicare Adv [id number] MB [id number] Social History Type Description Quantity Date Captured Comments Alcohol Use Details Caffeine Use Details Tobacco Use Status Current non-smoker Smoking Status Never smoker She gabi es in [place] with her . She is retired. 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 This appears to be well controlled currently. 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
--- OUTSIDE RECORDS SUMMARY | 2024-05-25 10:01 | XMS_ITS | Continuity of Care Document ---
Author Organization [facility] Address [address] [place] [address] Phone Care Team Providers Care Change Control Coordinator Name Role Phone Usha Dickinson Unavailable Unavailable [...] on Encounter [facility], [address], [place], [place], [id number], [place] tel:[phone] No Information [facility]. [facility], [address], [place], [place], [id number] , [place]. [phone] Office/Outpat ient Visit,Est, Mod [facility], [address], [place], [place], [id number], [place] tel:[phone] [facility] Other forms of scoliosis, thoracolumbar regionL2 wedge compression fracture, initial encounter for closed fractureSpondy lolisthesis, lumbar region 0 [facility]. [facility], [address], [place], [place], [id number] , [place]. tel:[phone] Referring Provider: Rakel Arvizu, Cause.it [facility] [address] [place], [address]. tel:[phone] Office/Outpat ient Visit,Est, Mod [facility], [address], [facility] [place], [id number], [place] tel:[phone] [facility] L2 wedge compression fracture, initial encounter for closed fractureOther forms of scoliosis, thoracolumbar regionSpondylo listhesis, lumbar region 0 Kwame Kerr. [facility], [address], [place], [place], [address] , . tel:[phone] Referring Provider: Rakel Arvizu mcTEL [address] [place], [address]. tel:[phone] Office/Outpat ient Visit,[facility], [facility], [address], [facility] [place], [id number], [place] tel:[phone] [facility] L2 wedge compression fracture, initial encounter for closed fractureOther forms of scoliosis, thoracolumbar regionSpondylo listhesis, lumbar region 0 Kwame Kerr. [facility], [address], [place], [place], [id number] , [place]. tel:[phone] Referring Provider: Rakel Arvizu mcTEL [address] [place], [address]. tel:[phone] Family History Family Member Type Diagnosis Age At Onset No Information Payers Payer name Insurance type Covered alliance party ID Authoralethaa tishannon(s) Medicare MB [id number] [facility] [id number] [facility] [id number] Social History Type Description Quantity Date Captured [...]
--- OUTSIDE RECORDS SUMMARY | 2024-05-25 10:02 | XMS_ITS | Data Portability ---
Author Organization [facility], [facility] Address [address] [place] [address] Care Team Providers Care Financial Professional Name Role Phone [facility] Primary Care Provider Assessment No [...] By Organization Details Last Modified Time 09/14/2021 [id number] Test each progra m for at least 2 weeks, adjusting amplitude as needed. May remain on a program as long as it is effective. Return as needed for reprogramming. [email or web address] Not available 09/14/2021 10:07:26 Patient states t hat Gemtessa samples were very effective, but it is not covered by her insurance. She was also given a rx for Myrbetriq. [email or web address] Not available 09/14/2021 10:08:49 11/12/2021 [id number] Over Active Blad betty (OAB): -Managed with [...] minutes [email or web address] Not available 11/12/2021 11:46:55 04/09/2022 [id number] Test each progra m for at least 2 weeks, adjusting amplitude as needed. May remain on a program as long as it is effective. Return as needed for reprogramming. [email or web address] Not available 04/09/2022 12:34:22 Patient states t hat Gemtesa samples were effective, but the rx was too expensive, so she stopped taking. She would like to try the Gemtesa again, but wonders of it is ok t take every other day, to spread the prescription out, and decrease the expense. I will ask Afsaneh Bui, PAC. [email or web address] Not available 04/09/2022 12:37:43 12/06/2022 [id number] Test each progra m for at least 2 weeks, adjusting amplitude as needed. May remain on a program as long as it is effective. Return as needed for reprogramming. Not available 12/06/2022 10:55:41 04/28/2023 [id number] Over Active Blad betty (OAB): -Managed with [...] color -advantus YELLOW yellow Not Available [facility] [address], [place], [address], 09/14/2021 10:41:46 09/15/19 22 09/14/2021 UA DIP CS ADVAN TUS appearance -advantus CLEAR clear Not Available [facility] [address] [facility] [address] [facility] [address], [place], [address], 09/14/2021 10:41:46 09/15/19 22 09/14/2021 UA DIP CS ADVAN TUS glucose -advantus NEGATI VE mg/dL negati ve Not Available [facility] [address], [place], [address], 09/14/2021 10:41:46 09/15/19 22 09/14/2021 UA DIP CS ADVAN TUS bilirubin -advantus NEGATI VE negati ve Not Available [facility] [address], [place], [address], 09/14/2021 10:41:46 09/15/19 22 09/14/2021 UA DIP CS ADVAN TUS ketones -advantus NEGATI VE mg/dL negati ve Not Available [facility] [address], [place], [address], 09/14/2021 10:41:46 09/15/19 22 09/14/2021 UA DIP CS ADVAN TUS sp. gravity -advantus 1.010 1.010- 1.025 Not Available [facility] [address] [place] [address] [address], [place], [address], 09/14/2021 10:41:46 09/15/19 22 09/14/2021 UA DIP CS ADVAN TUS pH -advantus 6.0 5.0-8. 0 Not Available [facility] [address], [place], [address], 09/14/2021 10:41:46 09/15/19 22 09/14/2021 UA DIP CS ADVAN TUS protein -advantus NEGATI VE mg/dL negati ve Not Available [facility] [address], [place], [address], 09/14/2021 10:41:46 09/15/19 22 09/14/2021 UA DIP CS ADVAN TUS urobilinogen -advantus 0.2 normal Not Available [facility] [address], [place], [address], 09/14/2021 10:41:46 09/15/19 22 09/14/2021 UA DIP CS ADVAN TUS nitrites -advantus NEGATI VE negati ve Not Available [facility] [address] [place] [address], [place], [address], 09/14/2021 10:41:46 09/15/19 22 09/14/2021 UA DIP CS ADVAN TUS blood -advantus SMALL negati ve abnormal Not Available [facility] [address] [place] [address], [place], [address], 09/14/2021 10:41:46 09/15/19 22 09/14/2021 UA DIP CS ADVAN TUS leukocytes -advantus NEGATI VE negati ve Not Available [facility] [address] [place] [address], [place], [address], 09/14/2021 10:41:46 09/15/19 22 09/14/2021 UA DIP CS ADVAN TUS performed by Bibi Ruiz Not Available [facility] [address], [place], [address], 09/14/2021 10:41:46 09/15/19 22 09/14/2021 UA DIP [...] ----- ----- ----- ----- ---- Not Available [facility] [address] [place] [address], [place], [address], 09/14/2021 10:41:46 09/15/19 22 09/14/2021 UA MICRO SCOPI C U-WBC 0 - 2 [hpf] 0 - 2 Not Available [facility] [address] [place] [address], [place], [address], 09/14/2021 10:41:47 09/15/19 22 09/14/2021 UA MICRO SCOPI C U-RBC 0 - 2 [hpf] 0 - 2 Not Available [facility] [address] [place] [address], [place], [address], 09/14/2021 10:41:47 09/15/19 22 09/14/2021 UA MICRO SCOPI C bacteria Small [hpf] negati ve abnormal Not Available [facility] [address] [place] [address], [place], [address], 09/14/2021 10:41:47 09/15/19 22 09/14/2021 UA MICRO SCOPI C squamous epi Small /lpf negati ve,sma ll Not Available [facility] [address] [place] [address], [place], [address], 09/14/2021 10:41:47 Result Notes None recorded. 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 Procedures Surgical History Date Name Laterality Status Provider Name and Address Organization Details Recorded Time 08/20/19 25 COMPLEX VISIT active ELMA Burciaga [address] [place] [address],[address], [address], [facility] 04/10/2024 11:39:57 08/20/19 25 Bladder Scan active ELMA Burciaga [address] [place] [address],[address], [address], [facility] 04/10/2024 11:41:06 04/28/20 23 Sacral neuromodulation w/o reprogramming completed ELMA Burciaga [address] [place] [address],[address], [address], [facility] 04/28/2023 11:57:28 04/28/20 23 Bladder Scan completed Radhika Mathis [facility] 04/28/2023 11:36:21 12/07/19 23 Sacral neuromodulation w/o reprogramming completed Demetri Bosch [facility] 12/06/2022 11:08:45 04/09/20 22 Sacral Stimulator Reprogramming completed Demetri Bosch [facility] 04/09/2022 12:49:34 09/15/19 22 Bladder Scan completed Merry Ocampo [facility] 09/14/2021 10:25:15 09/15/19 22 Sacral neuromodulation w/o reprogramming completed Demetri Bosch [facility] 09/14/2021 10:15:12 08/03/19 22 Past Data Reviewed completed Charlotte Smith MD [address] [facility] [address], [place], [address], [facility] 08/03/2021 08:29:52 08/03/19 22 Bladder Scan completed Usha Corado [facility] 08/03/2021 11:50:03 11/27/19 21 Sacral Stimulator Reprogramming completed Demetri Bosch [facility] 11/27/2020 12:44:01 09/17/19 20 Implant neuroelectrodes completed Not Available [facility] 12/13/2019 18:11:39 11/29/19 19 Insert bladder catheter completed Not Available [facility] 12/13/2019 18:11:39 11/14/19 15 Colonoscopy completed Lucinda Nuñez [facility] 11/11/2020 11:57:08 11/29/19 09 Total hip arthroplasty completed Not Available [facility] 12/13/2019 18:11:39 11/29/19 00 Unlisted procedure breast completed Not Available [facility] 12/13/2019 18:11:39 Appendectomy add-on completed Not Available [facility] 12/13/2019 18:11:39 Imaging Results None recorded. Procedure Notes None recorded. Medical Equipment None Reported. Allergies Allergen ID Allergen Name Allergen Category Reaction Reaction Severity Criticality Documentation Date Start Date Code Code System Note Provider Name and Address Organization Details Recorded Time 19861108 Product containin g nitroimid azole (product) medicatio n Not available Not available Not available 12/12/2019 41747 7004 SNOMED Not Available [facility] 0 23:50:45 19861202 sulindac medicatio n Not available Not available Not available 12/12/2019 59340 RxNorm Not Available [facility] 0 23:50:45 19870101 Medicinal product containin g penicilli n and acting as antibacte rial agent (product) medicatio n itching Not available Not available 12/12/2019 42641 05 SNOMED Not Available [facility] 0 23:50:45 931542 atorvasta tin medicatio n Not available Not available Not available 12/12/2019 48639 RxNorm Not Available [facility] 0 23:50:45 121732 tetracycl ine medicatio n Not available Not available Not available 12/12/2019 72292 RxNorm Not Available [facility] 0 23:50:45 614818 alendrona te sodium medicatio n Not available Not available Not available 12/12/201986546 2 RxNorm Not Available [facility] 0 23:50:45 279428 amoxicill in medicatio n Not available Not available Not available 12/12/2019 723 RxNorm Not Available [facility] 0 23:50:45 327428 oxybutyni n chloride Not available dizziness Not available Not available 12/12/2019 39812 RxNorm fatig ue Not Available [facility] 0 23:50:45 342522 aspirin medicatio n Not available Not available Not available 12/12/2019 1191 RxNorm Not Available [facility] 0 23:50:46 431767 losartan Not available Not available Not available Not available 12/12/2019 21575 RxNorm Not Available [facility] 0 23:50:46 904847 estrogens , conjugate d ([facility]) medicatio n Not available Not available Not available 12/12/2019 4099 RxNorm Not Available [facility] 0 23:50:46 291877 ciproflox acin medicatio n Not available Not available Not available 12/12/2019 2551 RxNorm Not Available [facility] 0 23:50:46 729831 hydrochlo rothiazid e medicatio n Not available Not available Not available 12/12/2019 5487 RxNorm Not Available [facility] 0 23:50:46 803952 metoprolo l Not available Not available Not available Not available 12/12/2019 6918 RxNorm Not Available [facility] 0 23:50:46 923753 naproxen medicatio n Not available Not available Not available 12/12/2019 7258 RxNorm Not Available [facility] 0 23:50:46 19871104 clindamyc in Not available Not available Not available Not available 12/12/2019 2582 RxNorm Not Available [facility] 0 23:50:46 382207 Substance with sulfonami de structure and antibacte rial mechanism of action (substanc e) medicatio n Not available Not available Not available 11/11/2020 02373 8003 SNOMED [facility] 11:56:30 432256 Myrbetriq medicatio n swelling Not available Not available 10/05/2021 36629 92 RxNorm [address], [address], [facility] 2 13:18:14 755541 S[employer] Elder[employer] Immune medicatio n Not available Not available Not available 04/09/2022 86625 0 UNK Demetri Danitza [facility] 2 12:14:11 Medications Name [...] Updated DateTime 04/09/2022 154.94 cm 27.8 kg/m2 88492.08 g Demetri Bosch [facility] 04/09/2022 12:13:52 Date Recorded Body height Body mass index (BMI) Body weight Provider Name and Address Organization Details Last Updated DateTime 12/06/2022 154.94 cm 25.5 kg/m2 87825.97 g Demetri Bosch [facility] 12/06/2022 10:41:56 Date Recorded Body height Body mass index (BMI) Body weight Provider Name and Address Organization Details Last Updated DateTime 04/28/2023 154.94 cm 25.5 kg/m2 97320.97 g Radhika Mathis [facility] 04/28/2023 11:25:35 Date Recorded Body height Body mass index (BMI) Body weight Provider Name and Address Organization Details Last Updated DateTime 09/14/2021 158.75 cm 26.5 kg/m2 65240.08 g Demetri Bosch [facility] 09/14/2021 09:54:39 Date Recorded Body height Body mass index (BMI) Body weight Provider Name and Address Organization Details Last Updated DateTime 09/14/2021 158.75 cm 26.5 kg/m2 74127.08 g Merry Ocampo [facility] 09/14/2021 10:08:57 Date Recorded Body height Body mass index (BMI) Body weight Provider Name and Address Organization Details Last Updated DateTime 11/12/2021 154.94 cm 27.8 kg/m2 81634.08 g Merry Ocampo [facility] 11/12/2021 11:32:20 Social History Question Answer Notes LastModified by Organizat ion Details LastModified Time Tobacco Smoking Status Never Smoker Not Available [facility] 12/13/2019 02:00:45 What Is Your Level Of Alcohol Consumption? None Information not available 09/14/2021 What Is Your Level Of Caffeine Consumption? Heavy Information not available 09/14/2021 Are You Currently Employed? No Information not available 09/14/2021 Race [place] Information n ot available 12/13/2019 Ethnicity Not /Lat vane Information not available 09/14/2021 Preferred Language Burkinan Information not available 09/14/2021 Recreational Drug Use [...] conjugate PCV 13 07/04/2017 completed STEPHEN Germain [facility] 04/28/2023 11:25:40 Past Encounters Encounter ID Performer Location Encounter Start Date Encounter Closed Date Diagnosis/Indication Diagnosis SNOMED-CT Code Diagnosis ICD10 Code [id number] Charlotte Smith MD [address] [address] 04/15/2020 10:02:52 04/25/2020 12:54:57 Overactive urinary bladder 739015255 N32.81 Urge incon tinence of urine 43857173 N39.41 [id number] Charlotte Smith MD [address] [address] 05/13/2020 10:14:48 05/13/2020 14:22:18 Overactive urinary bladder 681602386 N32.81 Urge incon tinence of urine 61155026 N39.41 History of urinary tract infection 2281579055 107 Z87.440 [id number] Charlotte Smith MD [address] [place] [address] 11/11/2020 11:46:55 11/11/2020 13:40:18 Overactive urinary bladder 306073753 N32.81 Urge incon tinence of urine 73185891 N39.41 [id number] Demetrijovita Bosch [facility] [address] [place] [address],it e [address] [place] [address] 11/26/2020 10:15:12 12/02/2020 15:37:48 Overactive urinary bladder 505637344 N32.81 Nocturia 032562014 R35.1 [id number] Charlotte Smith MD [facility] [address] [place] [address] [place] [address] 08/03/2021 11:31:50 08/03/2021 12:09:22 Overactive urinary bladder 761377571 N32.81 Urge incon tinence of urine 76248238 N39.41 Nocturia 345898897 R35.1 [id number] ELMA Burciaga [facility] [address] [place] [address],[facility] [address] [place] [address] 09/14/2021 10:06:36 09/14/2021 14:16:12 Overactive urinary bladder 548858526 N32.81 Urge incon tinence of urine 66275493 N39.41 Nocturia 497922776 R35.1 [id number] Demetri Bosch [facility] [address] [place] [address] [place] [address] 09/14/2021 09:30:06 09/14/2021 14:31:59 Overactive urinary bladder 672490757 N32.81 [id number] ELMA Burciaga [facility] [address] [place] [address] [place] [address] 11/12/2021 11:29:59 11/12/2021 12:37:25 Overactive urinary bladder 129375964 N32.81 Urge incon tinence of urine 51775681 N39.41 Nocturia 462917396 R35.1 [id number] Demetri Bosch [facility] [address] [facility] [place] [address] 04/09/2022 11:43:46 04/09/2022 13:38:20 Overactive urinary bladder 599687365 N32.81 [id number] Demetri Bosch [facility] [address] [facility] [place] [address] 12/06/2022 10:28:13 12/06/2022 11:24:29 Overactive urinary bladder 404814096 N32.81 [id number] ELMA Burciaga [facility] [address] [facility] [address] [place] [phone] 04/28/2023 11:22:38 04/28/2023 12:04:03 Overactive urinary bladder 379663982 N32.81 Urge incon tinence of urine 72124981 N39.41 Nocturia 668299448 R35.1 Health Concerns Section Related Observation LastModified by Organization Detai ls LastModified Time None Recorded Concern Status LastModified by Organization Details LastModified Time None Recorded Advance Directives Directive None Recorded Payers Encounter Date Sequence Insurance Name Policy Number Policy Betancourt Covered Member ID Betancourt Member ID Guarantor Name 09/14/2021 2 [place] [employer] P[place]y [employer] Wood [id number] Patsy [employer] Wood 09/14/2021 2 [facility] [id number] Patsy A Wood [id number] Patsy A Wood 11/12/2021 2 [place] [employer] Patsy A Wood [id number] Patsy [employer] Wood 11/12/2021 2 [place] [id number] Patsy A Wood [id number] Patsy A Wood 04/09/2022 2 [place] [employer] Patsy A Wood [id number] Patsy A Wood 04/09/2022 2 [facility] [id number] Patsy A Wood [id number] Patsy A Wood 12/06/2022 2 [place] [employer] Patsy A Wood [id number] Patsy A Wood 12/06/[address] [facility] [id number] Patsy Beltrán [id number] Patsy Beltrán 04/28/2023 2 [place] [employer] [facility] Patsy Beltrán [id number] Patsy Beltrán 04/28/[address] [facility] [id number] Patsy Beltrán [id number] Patsy Beltrán Notes Date Note Type Note [...] to be almost every hour. ELMA Burciaga [address] [place] [address],[address], [place], [address], [facility] 09/14/2021 10:49:41 11/12/2021 text/html 11/12/21:Patient [...] with sjorgrens. This visit was conducted using Cont[employer] phone technology. Prior to conducting our health visit, the patient and I discussed the risks, benefits and alternatives to phone visits. The patient elected to proceed with the phone visit. ELMA Burciaga [address] [place] [address],[address], [place], [address], [facility] 11/12/2021 11:50:24 12/06/2022 text/html Frequent [...] changed Rate chaanged Resolution changed Demetri Bosch [facility] 12/06/2022 11:08:58 04/28/2023 text/html 04/28/23:Patient presents [...] be almost every hour. ELMA Burciaga [address],[address], [place], [address], [facility] 04/28/2023 11:58:40 OBGyn Episode No OBEpisode recorded.
== END 2024-05-25 09:59 | disposition home or self-care (01) ==
LOC: WOUND 09:58
PROVIDERS: PCP Physician Assistant Medical; Visit Provider Nurse Practitioner Family
DX: I87.2 Venous insufficiency (chronic) (peripheral) (principal); I73.9 Peripheral vascular disease, unspecified; I89.0 Lymphedema, not elsewhere classified; L97.322 Non-pressure chronic ulcer of left ankle with fat layer exposed
CPT/HCPCS: 97597

== ENCOUNTER 2024-06-01 09:59 | Outpatient (CLI) | payer OTHER, SELFPAY ==
--- OUTSIDE RECORDS SUMMARY | 2024-06-01 10:00 | XMS_ITS | Clinical Summary ---
Author Organization [facility] Address [place], [place] [address] Care Team Providers Care Tobacco Hanger Name Role Phone Kd Restrepo MD Unavailable Jose Napier PANettieC Primary Care Provider [phone] Charlotte Smith MD Unavailable [phone] Charlotte Anderson MD Unavailable [phone] Allergies Active Allergy Reactions Criticality Noted Date Comments Amoxicillin 01/19/2007 Aspirin Rash,Itching 01/20/2006 Atorvastatin Myalgia 12/27/2014 Blood-Group Specific Substance Other - Describe In Comment Field High 09/01/2016 Patient has Anti-D. Blood product orders may be delayed. Draw one red top and two purple top tubes for all Type and Screen/Type and Crossmatch orders. 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 05/04/2024 AMD (age-related macular degeneration), bilatera l 02/18/2022 Mitral valve insufficiency 01/25/2020 Mitral valve prolapse 01/25/2020 SOB (shortness of breath) 01/25/2020 Fatigue 01/25/2020 shelter current use of systemic steroids 09/27 Prediabetes [...] Date Anticoagulation monitoring, INR range 2-3 [Z79.01]; [place] [facility] 2.5-3.0 12/06/2016 1 Pessary maintenance 02/25/2016 09/28/19 20 Anticoagulation monitoring, goal range 2.0-2.6 09/19/2013 01/09/2018 Abnormal stress test 11/17/2010 011 Routine general medical exam ination at a health care facility 07/12/2009 09/28/2019 Overview (12/06/2012): Normal CT angiogram 11/2010 Hip pain 05/06/2008 07/09/2009 Onychomycosis 05/06/2008 08/27/2008 HX OF VENOUS THROMBOSIS AND EMBOLISM 11/09/2006 12/06/2012 Bilateral pulmonary embolism 10/11/2006 11/18/2017 AFTERCARE, LONG-TERM USE, IN DICATIONS NEC-PLAQUENIL 10/22/2003 Encounters Date Type Department Care Team Description 05/18/2024 10:30 AM SUPERVISOR SHUTTLE VENEERING Office Visit [facility] [address] [place] [phone] Follow Up (LLE angio, discuss Plavix ) 05/18/2024 Telephone [facility] [address] [place] [phone] Adelaide Eid MD Blood Pressure 05/18/2024 Travel 05/17/2024 Refill [facility] [address] [place] [address] Adelaide Eid MD Refill Request (Diltiazem Cd) 05/13/2024 Travel 05/11/2024 Telephone [facility] [address] [place] [phone] Charlotte Anderson MD Questions 05/10/2024 2:00 PM SUPERVISOR SHUTTLE VENEERING Ancillary Procedure [facility] [address] [place] [address] 05/10/2024 Travel 05/07/2024 Telephone [facility] [address] [place] [phone] Charlotte Anderson MD Questions (Medication questions and concerns) 05/06/2024 Travel 05/04/2024 7:30 AM CDT Anesthesia Event [facility] [address] [place] [address] Delia Chavira MD 05/04/2024 5:27 AM CDT - 05/04/2024 4:40 PM CDT Hospital Encounter [facility] [address] [place] [address] Charlotte Anderson MD Peripheral arterial disease (HC) (Primary Dx) Discharge Disposition: Home Self Care 05/04/2024 Travel 05/02/2024 Travel 04/09/2024 9:30 AM CDT Office Visit [facility] [address] [place] [phone] Charlotte Anderson MD Follow Up ( Venous stasis ulcer of ankle, left ) 04/09/2024 Travel 04/05/2024 Travel 04/02/2024 Telephone [facility] [address] [place] [phone] Charlotte Anderson MD 03/30/2024 Telephone [facility] [address] [place] [phone] Charlotte Anderson MD Questions 03/21/2024 Telephone [facility] [address] [place] [phone] Charlotte Anderson MD status of left wound ankle 03/01/2024 3:30 PM CDT [facility] [address] [place] [address] Olvin Haji MD Consult (CT, US & MRI - spot on pancreas) 03/01/2024 Travel from Last 3 Months Immunizations Name Administration Dates Next Due AMB INFLUENZA IIV3 (AGE 65+ YRS) PF (Flu Clinic Only) 03/23/2017 AMB Influenza, IIV3 (Age >=3 years) Preserve Free (Flu Clinic Only) 04/08/2009 AMB Influenza, IIV3 (Age >=3 years)(Flu Clinic Only) 04/06/2013,04/16/2011,04/24/2008 COVID-19 vaccine (Crowdpac-MOGL NTXiaoi Robert 30mcg/0.3mL) PFMDV 09/02/2020,08/12/2020 Influenza A (H1N1), Inactiva [...] Comments Blood Pressure 197/87 05/18/2024 10:31 AM SUPERVISOR SHUTTLE VENEERING Pulse 67 05/18/2024 10:29 AM SUPERVISOR SHUTTLE VENEERING Temperature 36 C (96.8 F) 05/04/2024 9:56 AM CDT Respiratory Rate 12 05/18/2024 10:29 AM SUPERVISOR SHUTTLE VENEERING Oxygen Saturation 98% 05/18/2024 10:29 AM SUPERVISOR SHUTTLE VENEERING Inhaled Oxygen Concentration - - Weight 63 kg (139 lb) 05/04/2024 5:57 AM CDT Height 149.9 cm (4' 11) 05/04/2024 5:57 AM CDT Body Mass Index 28.07 05/04/2024 5:57 AM CDT Plan of Treatment Upcoming Encounters Date Type Department Care Team (Late st Contact Info) Description 06/08/2024 10:30 AM SUPERVISOR SHUTTLE VENEERING Office Visit [facility] [address] [place] [address] [place] [address] [place] [address] 08/22/2024 8:30 AM SUPERVISOR SHUTTLE VENEERING Appointment [facility] [address] [place], [place] [phone] 08/22/2024 9:15 AM SUPERVISOR SHUTTLE VENEERING Appointment [facility] [address] [place] [address] 08/22/2024 11:00 AM SUPERVISOR SHUTTLE VENEERING Office Visit [facility] [address] [place] [phone] Charlotte Anderson MD [address] [place] [address] 08/30/2024 10:00 AM SUPERVISOR SHUTTLE VENEERING Office Visit [facility] [address] [place], [place] [phone] [place] [address] [place], [place] [phone] Health Maintenance Due Date Last Done Comments [...] history exists Medical Devices Implanted Type Area Plastic Duplicator Device Identifier Shelf Expiration Date Model / Serial / Lot Lead Kit 4.32mm Spacing 28cm Length Interstim - [id number] Implanted:Qty: 1 on 04/01/2020 by Charlotte Smith MD at [facility] N/A: Sacrum [employer] Pain Therapy 09/30/2021 [id number] / / [id number] Stimulator 7.7mm 14cc Interstim Ii - [id number] Implanted:Qty: 1 on 04/01/2020 by Charlotte Smith MD at [facility] N/A: Sacrum Med[employer] Pain Therapy 03/31/2021 [id number] / [id number] / Description:PIN [id number] Procedures Procedure Name Priority Date/Time Associated Diagnosis Comments ECHO TTE COMPLETE WO CONTRAST Routine 05/10/2024 2:24 PM SUPERVISOR SHUTTLE VENEERING Nonrheumatic mitral valve regurgitation [facility] ACTIVATED CLOTTING [...] 2 SITES AXIAL Routine 07/02/2019 11:48 AM SUPERVISOR SHUTTLE VENEERING Osteopenia of multiple sites from Last 3 Months or Most Recently Relevant to Health Maintenance Results * ECHO TTE COMPLETE WO CONTRAST (05/10/2024 2:24 PM SUPERVISOR SHUTTLE VENEERING) AORTIC VALVE MEAN PG 5 mmHg EJECTION FRACTION 58 % PEAK TR VELOCITY 2.7 m/s LVEDD 4.7 cm MITRAL VALVE MR ERO 21 mm2 EJECTION FRACTION 55 - 60% Anatomical Region Laterality Modality Ultrasound 05/10/2024 1:46 PM SUPERVISOR SHUTTLE VENEERING Narrative 05/10/2024 4:38 PM SUPERVISOR [employer]LE [employer]ERING ECHOCARDIOGRAM RODERICK HEATON : 1940 83 years Study Date: 05/10/2024 1:46:47 PM Gender: F BP: 133/80 mmHg Height: 149.86 cm BSA: 1.58 m Weight: 63.05 kg Tech: ESTEVES Referring MD: ADELAIDE EID Site: [facility] Reading Location: [facility] Patient Location: Outpatient. Procedure: 2D, Color [...] . This study was interpreted by an [facility] accredited facility. Final Procedure Note Carlos A Vidales MD - 05/10/2024 ECHOCARDIOGRAM RODERICK HEATON : 1940 83 years Study Date: 05/10/2024 1:46:47 PM Gender: F BP: 133/80 mmHg Height: 149.86 cm BSA: 1.58 m Weight: 63.05 kg Tech: [facility] MD: ADELAIDE EID Site: [facility] Reading Location: [facility] Patient Location: Outpatient. Procedure: 2D, Color [...] 261 msec Aortic Valve: Vmax 1.4 m/s DENSISE (V) 2.05 cm VTI 0.30 m DENISSE [...] . This study was interpreted by an [facility] accredited facility. Final Adelaide Eid MD ECHO ORD * (ABNORMAL) ACTIVATED CLOTTING TIME [id number] ACT (05/04/2024 9:31 AM CDT) Only the most recent of3 resultswithin the time period is included. ACTIVATED CLOTTING TIME, POCT 128(H) 74 - 125 sec 05/04/2024 10:[address] [facility] Blood BLOOD SPECIMEN / Unknown 05/04/2024 9:31 AM CDT 05/04/2024 10:38 AM CDT Charlotte Anderson MD HEMATOLOGY [facility] SENDOUT INTERNAL ZIP [phone] [place] [address] * (ABNORMAL) PROTIME-INR (05/04/2024 6:58 AM CDT) INR 1.4(H) <1.3 05/04/2024 7:[address] [facility] PROTIME 16.0(H) 10.6 - 12.4 sec 05/04/2024 7:[address] [facility] Blood BLOOD SPECIMEN / Unknown Non-Lab Venipuncture / Unknown 05/04/2024 6:58 AM CDT 05/04/2024 7:02 AM CDT [facility] - 05/04/2024 7:13 AM CDT Therapeutic [...] is on UFH. Charlotte Anderson MD HEMATOLOGY [facility] SENDOUT INTERNAL ZIP [id number] [address] [place] [address] * (ABNORMAL) CBC with Platelets no Differential (05/04/2024 6:19 AM [facility]) Pathologist [facility] WHITE BLOOD COUNT 5.9 4.5 - 11.0 thou/cu mm 05/04/2024 7:[address] [facility] RED BLOOD COUNT 3.88(L) 4.00 - 5.20 mil/cu mm 05/04/2024 7:[address] [facility] HEMOGLOBIN 12.1 12.0 - 16.0 g/dL 05/04/2024 7:[address] [facility] HEMATOCRIT 36.9 33.0 - 51.0 % 05/04/2024 7:[address] [facility] MCV 95 80 - 100 fL 05/04/2024 7:[address] [facility] MCH 31.2 26.0 - 34.0 pg 05/04/2024 7:01 AM [facility] MCHC 32.8 32.0 - 36.0 g/dL 05/04/2024 7:[address] [facility] RDW 14.2 11.5 - 15.5 % 05/04/2024 7:01 AM [facility] PLATELET COUNT 222 140 - 440 thou/cu mm 05/04/2024 7:[address] [facility] MPV 9.3 6.5 - 11.0 fL 05/04/2024 7:[address] [facility] NRBC 0.0 % 05/04/2024 7:[address] [facility] ABS NRBC 0.0 thou /cu mm 05/04/2024 7:01 AM [facility] Blood BLOOD SPECIMEN / Unknown Non-Lab Venipuncture / Unknown 05/04/2024 6:19 AM CDT 05/04/2024 6:53 AM T Marcus WILLS HEMATOLOGY [facility] SENDOUT INTERNAL ZIP [id number] [place] [address] * (ABNORMAL) Basic Metabolic Panel (05/04/2024 6:19 AM CDT) SODIUM 139 136 - 145 mmol/L 05/04/2024 7:[address] [facility] POTASSIUM 3.4(L) 3.5 - 5.1 mmol/L 05/04/2024 7:[address] [facility] CHLORIDE 101 98 - 107 mmol/L 05/04/2024 7:[address] [facility] CO2,TOTAL 28 22 - 29 mmol/L 05/04/2024 7:[address] [facility] ANION GAP 10 5 - 18 05/04/2024 7:[address] [facility] GLUCOSE 83 70 - 99 mg/dL 05/04/2024 7:[address] [facility] CALCIUM 9.1 8.8 - 10.2 mg/dL 05/04/2024 7:[address] [facility] BUN 19 8 - 23 mg/dL 05/04/2024 7:[address] [facility] CREATININE 1.04(H) 0.50 - 0.90 mg/dL 05/04/2024 7:[address] [facility] BUN/CREAT RATIO 18 10 - 20 7:[address] [facility] eGFR 53(L) >90 mL/min/1.7 3m2 05/04/2024 7:[address] [facility] Comment:As of 2021, [...] AM CDT Marcus WILLS CHEMISTRY [facility] SENDOUT INTERNAL ZIP [phone] [place] [address] * (ABNORMAL) XR DXA BONE DENSITY 2 SITES AXIAL (07/02/2019 11:48 AM SUPERVISOR SHUTTLE VENEERING) Anatomical Region Laterality Modality Spine, HIPS, HIPL, HIPR Other Narrative 07/06/2019 11:01 AM SUPERVISOR SHUTTLE VENEERING Please see scanned document for results of this study. Rakel Connor DO DEXA from Last 3 Months or Most Recently Relevant to Health Maintenance Advance Directives Documents on File Type Date Recorded Patient Director Of Volunteer Services Expl anation Healthcare Directive 05/04/2024 5:29 AM [...] 8:45 AM 09/01/2016 4:04 PM Care Teams Tobacco Hanger Relationship Specialty Start Date End Date Jose Napier, PANettieC [address] [place] [address] PCP - General Physician Emergency Room Rn 03/01/24 Kd Restrepo MD Endocrinology 11/24/11 Charlotte Smith MD [address] [place], [place] [phone] Surgery - Urology 03/01/24 Charlotte Anderson MD [address] [place] [address] Surgery - Vascular 03/21/24
--- OUTSIDE RECORDS SUMMARY | 2024-06-01 10:01 | XMS_ITS | Continuity of Care Document ---
Author Organization [facility] Address [address] [place] [address] Phone Care Team Providers Care Lockstitch Back Maker Name Role Phone Helder Medina MD Unavailable [...] Antibodies Dna Antibody, Single Strand Dna Antibody, [place] Nuclear Antigen Antibodies Rheumatoid Factor, IGM Rheumatoid Factor, IGG, IGA Advance Directives Directive Yes / No Effective Date File Name No Information Encounters Encounter Description Practice Location Reason(s) For Visit Diagnoses Date Provider Providers Copied on Encounter Office/Outpa tient Visit, Est [facility], [address], [place], [address], [place] tel:[phone] [facility], Sjogren syndrome w/ inflammatory arthritis Apr-2 3 4 Lebedoff Helder. [address], [place], [place], [facility], [place]. tel:[phone] Referring Provider: Helder Jain, [address], [place], [address]. tel:[phone] [facility], [address], [place], [address], [place] tel:[phone] [facility], No Information Oct- 0 4 Lebedoff Helder. [address], [place], [address], [place]. tel:[phone] Referring Provider: Helder Jain, [address], [place], [place], [facility]. tel:[phone] Office/Outpa tient Visit, Est [facility], [address], [place], [address], [place] tel:[phone] [facility], Sjogren syndrome w/ inflammatory arthritisPain in left foot Oct- 0 4 Lebed[facility] Helder. [address], [place], [address], [place]. tel:[phone] Referring Provider: Helder Jain, [address], [place], [place], [facility]. tel:[phone] Office/Outpa tient Visit, Est [facility], [address], [place], [address], [place] tel:[phone] [facility], Sjogren syndrome w/ inflammatory arthritisPrim mauri osteoarthriti s, right hand Apr-0 4 3 Lebedoff Helder. [address], [place], [address], [place]. tel:[phone] Referring Provider: Helder Jain, [address], [facility] [place], [address]. tel:[phone] Office/Outpa tient Visit, Est [facility], [address], [place], [address], [place] tel:[phone] [facility], Sicca syndrome, unspecifiedWe akness 3 Lebedoff Helder. [address], [place], [address], [place]. tel:[phone] Referring Provider: Heledr Jain, [address], [facility] [place], [address]. tel:[phone] Office/Outpa tient Visit, Est [facility], [address], [place], [address], [place] tel:[phone] [facility], Sicca syndrome, unspecifiedPa in in left shoulder 2 Lebedoff Helder. [address], [place], [address], [place]. tel:[phone] Referring Provider: Helder Jain, [address], [place], [address]. tel:[phone] Office/Outpa tient Visit, Est [facility], [address], [place], [address], [place] tel:[phone] [facility], Sicca syndrome, unspecifiedDy spnea 2 Lebedoff Heldre. [address], [place], [address], [place]. tel:[phone] Referring Provider: Helder Jain, [address], [facility] [place], [address]. tel:[phone] Office/Outpa tient Visit, Est [facility], [address], [place], [address], [place] tel:[phone] [facility], Sicca syndrome, unspecifiedOt her senior care (current) drug therapyPrimar y OA of right handDyspnea 1 Adam Pendleton. [address], [place], [address], [place]. tel:[phone] Referring Provider: Helder Jain, [address], [place], [address]. tel:[phone] Office/Outpa tient Visit, New [facility], [address], [place], [address], [place] tel:[phone] [facility], Sicca syndrome, unspecifiedPa in in rt ankleOther long term care pharmacist (current) drug therapy 1 Adam Pendleton. [address], [place], [address], [place]. tel:[phone] Referring Provider: Helder Jain, [address], [place], [address]. tel:[phone] [facility], [address], [place], [address], [place] tel:[phone] [facility] No Information 1 Mo Sullivan. [facility] [address] [facility] [address], [place], [address], [place]. tel:[phone] Family History Family Member Type Diagnosis Age At Onset No Information Immunizations Vaccine Date Status Comments COVID-19 Moderna administered Source: Ot er Provider COVID-19 Pfizer administered Note: 1 ; Source: Other Provider Payers Payer name Insurance type Covered constitution party ID Authoriza tion(s) Medica Medicare Adv [id number] MB [id number] Social History Type Description Quantity Date Captured Comments Alcohol Use Details Caffeine Use Details Tobacco Use Status Current non-smoker Smoking Status Never smoker She gabi es in [place] with her . She is retired. She [...] Order Fo ot X-ray; Complete (3+ views) ([id number]), Sent on: Sent History Of Present Illness [...] diagnosis of Sjogren's syndrome manifested as + TINA/SSA/BOUNTY HUNTER, 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 This appears to be well controlled currently. Ideally, this would not have been treated with long term care pharmacist prednisone, but as she has been on [...]
--- OUTSIDE RECORDS SUMMARY | 2024-06-01 10:01 | XMS_ITS | Continuity of Care Document ---
Author Organization [facility] Address [address] [place] [address] Phone Care Team Providers Care Ruling Technician Name Role Phone Usha Dickinson Unavailable [...] on Encounter [facility], [address], [place], [place], [id number], [place] tel:[phone] No Information [facility]. [facility], [address], [place], [place], [id number] , [place]. [phone] Office/Outpat ient Visit,Est, Mod [facility], [address], [place], [place], [id number], [place] tel:[phone] [facility] Other forms of scoliosis, thoracolumbar regionL2 wedge compression fracture, initial encounter for closed fractureSpondy lolisthesis, lumbar region 0 [facility]. [facility], [address], [place], [place], [id number] , [place]. tel:[phone] Referring Provider: Rakel Arvizu, [facility] [place] [address] [place], [address]. tel:[phone] Office/Outpat ient Visit,Est, Mod [facility], [address], [facility] [place], [place], [id number], [place] tel:[phone] [facility] L2 wedge compression fracture, initial encounter for closed fractureOther forms of scoliosis, thoracolumbar regionSpondylo listhesis, lumbar region 0 Kwame Kerr. [facility], [address], [place], [place], [address] , . tel:[phone] Referring Provider: Rakel Arvizu [facility] [address] [place], [address]. tel:[phone] Office/Outpat ient Visit,[facility], [facility], [address], [facility] [place], [place], [id number], [place] tel:[phone] [facility] L2 wedge compression fracture, initial encounter for closed fractureOther forms of scoliosis, thoracolumbar regionSpondylo listhesis, lumbar region 0 Kwame Kerr. [facility], [address], [place], [place], [id number] , [place]. tel:[phone] Referring Provider: Rakel Arvizu [facility] [address] [place], [address]. tel:[phone] Family History Family Member Type Diagnosis Age At Onset No Information Payers Payer name Insurance type Covered libertarian ID Authoralethaa tishannon(s) Medicare MB [id number] [facility] [address] [facility] [id number] Social History Type Description Quantity Date Captured [...]
--- OUTSIDE RECORDS SUMMARY | 2024-06-01 10:01 | XMS_ITS | Data Portability ---
Author Organization [facility], [facility] Address [address] [place] [address] Care Team Providers Care Direct Care Supervisor Name Role Phone [facility] Primary [...] By Organization Details Last Modified Time 09/14/2021 [id number] Test each progra m for at least 2 weeks, adjusting amplitude as needed. May remain on a program as long as it is effective. Return as needed for reprogramming. [email or web address] Not available 09/14/2021 10:07:26 Patient states t hat Gemtessa samples were very effective, but it is not covered by her insurance. She was also given a rx for Myrbetriq. [email or web address] Not available 09/14/2021 10:08:49 11/12/2021 [id number] Over Active Blad betty (OAB): -Managed with [...] minutes [email or web address] Not available 11/12/2021 11:46:55 04/09/2022 [id number] Test each progra m for at least 2 weeks, adjusting amplitude as needed. May remain on a program as long as it is effective. Return as needed for reprogramming. [email or web address] Not available 04/09/2022 12:34:22 Patient states t hat Gemtesa samples were effective, but the rx was too expensive, so she stopped taking. She would like to try the Gemtesa again, but wonders of it is ok t take every other day, to spread the prescription out, and decrease the expense. I will ask Afsaneh Bui, PAC. [email or web address] Not available 04/09/2022 12:37:43 12/06/2022 213855 Test each progra m for at least 2 weeks, adjusting amplitude as needed. May remain on a program as long as it is effective. Return as needed for reprogramming. [email or web address] Not available 12/06/2022 10:55:41 04/28/2023 [id number] Over Active Blad betty (OAB): -Managed with [...] [facility] [address], [place], [address], 09/14/2021 10:41:46 09/15/19 22 09/14/2021 UA DIP CS ADVAN TUS appearance -advantus CLEAR clear Not Available [facility] [address] [facility] [address], [place], [address], 09/14/2021 10:41:46 09/15/19 22 09/14/2021 UA DIP CS ADVAN TUS glucose -advantus NEGATI VE mg/dL negati ve Not Available [facility] [address] [facility] [address], [place], [address], 09/14/2021 10:41:46 09/15/19 22 09/14/2021 UA DIP CS ADVAN TUS bilirubin -advantus NEGATI VE negati ve Not Available [facility] [address] [facility] [address], [place], [address], 09/14/2021 10:41:46 09/15/19 22 09/14/2021 UA DIP CS ADVAN TUS ketones -advantus NEGATI VE mg/dL negati ve Not Available [facility] [address] [facility] [address], [place], [address], 09/14/2021 10:41:46 09/15/19 22 09/14/2021 UA DIP CS ADVAN TUS sp. gravity -advantus 1.010 1.010- 1.025 Not Available [facility] [address] [place] [address], [place], [address], 09/14/2021 10:41:46 09/15/19 22 09/14/2021 UA DIP CS ADVAN TUS pH -advantus 6.0 5.0-8. 0 Not Available [facility] [address] [facility] [address], [place], [address], 09/14/2021 10:41:46 09/15/19 22 09/14/2021 UA DIP CS ADVAN TUS protein -advantus NEGATI VE mg/dL negati ve Not Available [facility] [address] [facility] [address], [place], [address], 09/14/2021 10:41:46 09/15/19 22 09/14/2021 UA DIP CS ADVAN TUS urobilinogen -advantus 0.2 normal Not Available [facility] [address] [facility] [address], [place], [address], 09/14/2021 10:41:46 09/15/19 22 09/14/2021 UA DIP CS ADVAN TUS nitrites -advantus NEGATI VE negati ve Not Available [facility] [address] [place] [address], [place], [address], 09/14/2021 10:41:46 09/15/19 22 09/14/2021 UA DIP CS ADVAN TUS blood -advantus SMALL negati ve abnormal Not Available [facility] [address] [place] [address], [place], [address], 09/14/2021 10:41:46 09/15/19 22 09/14/2021 UA DIP CS ADVAN TUS leukocytes -advantus NEGATI VE negati ve Not Available [facility] [address] [place] [address], [place], [address], 09/14/2021 10:41:46 09/15/19 22 09/14/2021 UA DIP CS ADVAN TUS performed by Bibi Ruiz Not Available [facility] [address] [facility] [address], [place], [address], 09/14/2021 10:41:46 09/15/19 22 09/14/2021 UA DIP [...] ----- ---- Not Available [facility] [address] [place] [address], [place], [address], 09/14/2021 10:41:46 09/15/19 22 09/14/2021 UA MICRO SCOPI C U-WBC 0 - 2 [hpf] 0 - 2 Not Available [facility] [address] [place] [address], [place], [address], 09/14/2021 10:41:47 09/15/19 22 09/14/2021 UA MICRO SCOPI C U-RBC 0 - 2 [hpf] 0 - 2 Not Available [facility] [address] [place] [address], [place], [address], 09/14/2021 10:41:47 09/15/19 22 09/14/2021 UA MICRO SCOPI C bacteria Small [hpf] negati ve abnormal Not Available [facility] [address] [place] [address], [place], [address], 09/14/2021 10:41:47 09/15/19 22 09/14/2021 UA MICRO SCOPI C squamous epi Small /lpf negati ve,sma ll Not Available [facility] [address] [place] [address], [place], [address], 09/14/2021 10:41:47 Result Notes None recorded. 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 Procedures Surgical History Date Name Laterality Status Provider Name and Address Organization Details Recorded Time 08/20/19 25 COMPLEX VISIT active ELMA Burciaga [address] [place] [address],[address], [address], [facility] 04/10/2024 11:39:57 08/20/19 25 Bladder Scan active ELMA Burciaga [address] [place] [address],[address], [address], [facility] 04/10/2024 11:41:06 04/28/20 23 Sacral neuromodulation w/o reprogramming completed ELMA Burciaga [address] [place] [address],[address], [place], [address], [facility] 04/28/2023 11:57:28 04/28/20 23 Bladder Scan completed Radhika Mathis [facility] 04/28/2023 11:36:21 12/07/19 23 Sacral neuromodulation w/o reprogramming completed Demetri Bosch [facility] 12/06/2022 11:08:45 04/09/20 22 Sacral Stimulator Reprogramming completed Demetri Bosch [facility] 04/09/2022 12:49:34 09/15/19 22 Bladder Scan completed Merry Ocampo [facility] 09/14/2021 10:25:15 09/15/19 22 Sacral neuromodulation w/o reprogramming completed Demetri Bosch [facility] 09/14/2021 10:15:12 08/03/19 22 Past Data Reviewed completed Charlotte Smith MD [address], [place], [address], [facility] 08/03/2021 08:29:52 08/03/19 22 Bladder Scan completed Usha Corado [facility] 08/03/2021 11:50:03 11/27/19 21 Sacral Stimulator Reprogramming completed Demetri Bosch [facility] 11/27/2020 12:44:01 09/17/19 20 Implant neuroelectrodes completed Not Available [facility] 12/13/2019 18:11:39 11/29/19 19 Insert bladder catheter completed Not Available [facility] 12/13/2019 18:11:39 11/14/19 15 Colonoscopy completed Lucinda Nuñez [facility] 11/11/2020 11:57:08 11/29/19 09 Total hip arthroplasty completed Not Available [facility] 12/13/2019 18:11:39 11/29/19 00 Unlisted procedure breast completed Not Available [facility] 12/13/2019 18:11:39 Appendectomy add-on completed Not Available [facility] 12/13/2019 18:11:39 Imaging Results None recorded. Procedure Notes None recorded. Medical Equipment None Reported. Allergies Allergen ID Allergen Name Allergen Category Reaction Reaction Severity Criticality Documentation Date Start Date Code Code System Note Provider Name and Address Organization Details Recorded Time 19861108 Product containin g nitroimid azole (product) medicatio n Not available Not available Not available 12/12/2019 09188 7004 SNOMED Not Available [facility] 0 23:50:45 19861202 sulindac medicatio n Not available Not available Not available 12/12/2019 28734 RxNorm Not Available [facility] 0 23:50:45 19870101 Medicinal product containin g penicilli n and acting as antibacte rial agent (product) medicatio n itching Not available Not available 12/12/2019 73020 05 SNOMED Not Available [facility] 0 23:50:45 355629 atorvasta tin medicatio n Not available Not available Not available 12/12/2019 98439 RxNorm Not Available [facility] 0 23:50:45 590774 tetracycl ine medicatio n Not available Not available Not available 12/12/2019 87691 RxNorm Not Available [facility] 0 23:50:45 767543 alendrona te sodium medicatio n Not available Not available Not available 12/12/201913036 2 RxNorm Not Available [facility] 0 23:50:45 594265 amoxicill in medicatio n Not available Not available Not available 12/12/2019 723 RxNorm Not Available [facility] 0 23:50:45 593122 oxybutyni n chloride Not available dizziness Not available Not available 12/12/2019 66223 RxNorm fatig ue Not Available [facility] 0 23:50:45 073041 aspirin medicatio n Not available Not available Not available 12/12/2019 1191 RxNorm Not Available [facility] 0 23:50:46 791395 losartan Not available Not available Not available Not available 12/12/2019 40222 RxNorm Not Available [facility] 0 23:50:46 429952 estrogens , conjugate d (ASSISTED) medicatio n Not available Not available Not available 12/12/2019 4099 RxNorm Not Available [facility] 0 23:50:46 470956 ciproflox acin medicatio n Not available Not available Not available 12/12/2019 2551 RxNorm Not Available [facility] 0 23:50:46 041976 hydrochlo rothiazid e medicatio n Not available Not available Not available 12/12/2019 5487 RxNorm Not Available [facility] 0 23:50:46 334302 metoprolo l Not available Not available Not available Not available 12/12/2019 6918 RxNorm Not Available [facility] 0 23:50:46 694379 naproxen medicatio n Not available Not available Not available 12/12/2019 7258 RxNorm Not Available [facility] 0 23:50:46 19871104 clindamyc in Not available Not available Not available Not available 12/12/2019 2582 RxNorm Not Available [facility] 0 23:50:46 552506 Substance with sulfonami de structure and antibacte rial mechanism of action (substanc e) medicatio n Not available Not available Not available 11/11/2020 27953 8003 SNOMED [facility] 11:56:30 368525 Myrbetriq medicatio n swelling Not available Not available 10/05/2021 21130 92 RxNorm [address], [address], [facility] 2 13:18:14 139001 S[place] Elder[employer] y Immune medicatio n Not available Not available Not available 04/09/2022 82057 0 UNK Demetri Danitza [facility] 2 12:14:11 Medications Name Sig [...] Updated DateTime 04/09/2022 154.94 cm 27.8 kg/m2 32275.08 g Demetri Bosch [facility] 04/09/2022 12:13:52 Date Recorded Body height Body mass index (BMI) Body weight Provider Name and Address Organization Details Last Updated DateTime 12/06/2022 154.94 cm 25.5 kg/m2 70577.97 g Demetri Bosch [facility] 12/06/2022 10:41:56 Date Recorded Body height Body mass index (BMI) Body weight Provider Name and Address Organization Details Last Updated DateTime 04/28/2023 154.94 cm 25.5 kg/m2 86227.97 g Radhika Mathis [facility] 04/28/2023 11:25:35 Date Recorded Body height Body mass index (BMI) Body weight Provider Name and Address Organization Details Last Updated DateTime 09/14/2021 158.75 cm 26.5 kg/m2 57273.08 g Demetri Bosch [facility] 09/14/2021 09:54:39 Date Recorded Body height Body mass index (BMI) Body weight Provider Name and Address Organization Details Last Updated DateTime 09/14/2021 158.75 cm 26.5 kg/m2 48421.08 g Merry Ocampo [facility] 09/14/2021 10:08:57 Date Recorded Body height Body mass index (BMI) Body weight Provider Name and Address Organization Details Last Updated DateTime 11/12/2021 154.94 cm 27.8 kg/m2 74364.08 g Merry Ocampo [facility] 11/12/2021 11:32:20 Social History [...] No Information not available 09/14/2021 Race [place] Information n ot available 12/13/2019 Ethnicity Not /Lat vane Information not available 09/14/2021 Preferred Language Bhutanese Information not available 09/14/2021 Recreational Drug Use No Information not available 09/14/2021 Could You Be ? No Information not available 09/14/2021 Marital Status [email or web address] Informati on not available 12/13/2019 What Was The Date Of Your Most Recent Tobacco Screening? 12/06/2022 [email or web address] Information not available 12/06/2022 What Is Your [...] conjugate PCV 13 07/04/2017 completed STEPHEN Germain [facility] 04/28/2023 11:25:40 Past Encounters Encounter ID Performer Location Encounter Start Date Encounter Closed Date Diagnosis/Indication Diagnosis SNOMED-CT Code Diagnosis ICD10 Code [id number] Charlotte Smith MD [address] [address] 04/15/2020 10:02:52 04/25/2020 12:54:57 Overactive urinary bladder 225273681 N32.81 Urge incon tinence of urine 80029487 N39.41 [id number] Charlotte Smith MD [address] [address] 05/13/2020 10:14:48 05/13/2020 14:22:18 Overactive urinary bladder 706803833 N32.81 Urge incon tinence of urine 18562738 N39.41 History of urinary tract infection 4349150534 107 Z87.440 [id number] Charlotte Smith MD [address] [place] [address] 11/11/2020 11:46:55 11/11/2020 13:40:18 Overactive urinary bladder 622833701 N32.81 Urge incon tinence of urine 68966490 N39.41 [id number] Demetrijovita Bosch [facility] [address] [place] [address],it e [address] [place] [address] 11/26/2020 10:15:12 12/02/2020 15:37:48 Overactive urinary bladder 409971499 N32.81 Nocturia 027381015 R35.1 [id number] Charlotte Smith MD [facility] [address] [place] [address] [place] [address] 08/03/2021 11:31:50 08/03/2021 12:09:22 Overactive urinary bladder 881461056 N32.81 Urge incon tinence of urine 06161946 N39.41 Nocturia 923120712 R35.1 [id number] ELMA Burciaga [facility] [address] [place] [address],[facility] e [address] [place] [address] 09/14/2021 10:06:36 09/14/2021 14:16:12 Overactive urinary bladder 999335274 N32.81 Urge incon tinence of urine 18325338 N39.41 Nocturia 320526876 R35.1 [id number] Demetri Bosch [facility] [address] [place] [address] [place] [address] 09/14/2021 09:30:06 09/14/2021 14:31:59 Overactive urinary bladder 698442028 N32.81 [id number] ELMA Burciaga [facility] [address] [place] [address] [place] [address] 11/12/2021 11:29:59 11/12/2021 12:37:25 Overactive urinary bladder 255069366 N32.81 Urge incon tinence of urine 46281674 N39.41 Nocturia 419788507 R35.1 [id number] Demetri Bosch [facility] [address] [facility] [place] [address] 04/09/2022 11:43:46 04/09/2022 13:38:20 Overactive urinary bladder 684847351 N32.81 [id number] Demetri Bosch [facility] [address] [facility] [place] [address] 12/06/2022 10:28:13 12/06/2022 11:24:29 Overactive urinary bladder 259542040 N32.81 [id number] ELMA Burciaga [facility] [address] [facility] e [address] [place] [address] 04/28/2023 11:22:38 04/28/2023 12:04:03 Overactive urinary bladder 535560283 N32.81 Urge incon tinence of urine 10673935 N39.41 Nocturia 373491518 R35.1 Health Concerns Section Related Observation LastModified by Organization Detai ls LastModified Time None Recorded Concern Status LastModified by Organization Details LastModified Time None Recorded Advance Directives Directive None Recorded Payers Encounter Date Sequence Insurance Name Policy Number Policy Betancourt Covered Member ID Betancourt Member ID Guarantor Name 09/14/2021 2 [place] [employer] Patsy [employer] Wood [id number] Patsy A Wood 09/14/2021 2 [facility] [id number] Patsy A Wood [id number] Patsy A Wood 11/12/2021 2 [place] [employer] Patsy A Wood [id number] Patsy A Wood 11/12/2021 2 [place] [id number] Patsy A Wood [id number] Patsy A Wood 04/09/2022 2 [place] [employer] Patsy A Wood [id number] Patsy A Wood 04/09/2022 2 [facility] [id number] Patsy A Wood [id number] Patsy A Wood 12/06/2022 2 [place] [employer] Patsy A Wood [id number] P[employer]y [employer] Wood 12/06/2022 2 [facility] [id number] Patsy Beltrán [id number] Patsy Beltrán 04/28/2023 2 [place] [employer] [facility] Patsy Beltrán [id number] Patsy Beltrán 04/28/2023 2 [facility] [id number] Patsy Beltrán [id number] Patsy Beltrán Notes Date Note Type Note [...] to be almost every hour. ELMA Burciaga [address] [place] [address],[address], [place], [address], [facility] 09/14/2021 10:49:41 11/12/2021 text/html 11/12/21:Patient [...] with sjorgrens. This visit was conducted using [employer] phone technology. Prior to conducting our health visit, the patient and I discussed the risks, benefits and alternatives to phone visits. The patient elected to proceed with the phone visit. ELMA Burciaga [address] [place] [address],[address], [place], [address], [facility] 11/12/2021 11:50:24 12/06/2022 text/html Frequent [...] changed Rate chaanged Resolution changed Demetri Bosch [facility] 12/06/2022 11:08:58 04/28/2023 text/html 04/28/23:Patient presents [...] be almost every hour. ELMA Burciaga [address], [place], [address], [facility] [place] [facility] 04/28/2023 11:58:40 OBGyn Episode No OBEpisode recorded.
== END 2024-06-01 10:00 | disposition home or self-care (01) ==
LOC: WOUND 09:59
PROVIDERS: PCP Physician Assistant Medical; Visit Provider Physician Assistant
DX: I87.2 Venous insufficiency (chronic) (peripheral) (principal); I73.9 Peripheral vascular disease, unspecified; I89.0 Lymphedema, not elsewhere classified; L97.322 Non-pressure chronic ulcer of left ankle with fat layer exposed
CPT/HCPCS: 97597

== ENCOUNTER 2024-06-07 10:23 | Outpatient (CLI) | payer OTHER, SELFPAY ==
--- OUTSIDE RECORDS SUMMARY | 2024-06-07 10:26 | XMS_ITS | Continuity of Care Document ---
Author Organization [facility] Address [address] [place] [address] Phone Care Team Providers Care Post Framer Name Role Phone Usha Dickinson Unavailable Unavailable [...] on Encounter [facility], [address], [facility] [place], [id number], [place] tel:[phone] No Information [facility]. [facility], [address], [place], [place], [id number] , [place]. [phone] Office/Outpat ient Visit,Est, Mod [facility], [address], [place], [place], [id number], [place] tel:[phone] [facility] Other forms of scoliosis, thoracolumbar regionL2 wedge compression fracture, initial encounter for closed fractureSpondy lolisthesis, lumbar region 0 Puente Usha. [facility], [address], [place], [place], [id number] , [place]. tel:[phone] Referring Provider: Rakel Arvizu, [place] [facility] [address] [place], [address]. tel:[phone] Office/Outpat ient Visit,Est, Mod [facility], [address], [facility] [place], [id number], [place] tel:[phone] [facility] L2 wedge compression fracture, initial encounter for closed fractureOther forms of scoliosis, thoracolumbar regionSpondylo listhesis, lumbar region 0 Kwame Kerr. [facility], [address], [place], [place], [id number] , . tel:[phone] Referring Provider: Rakel Arvizu [employer] [address] [place], [address]. tel:[phone] Office/Outpat ient Visit,[facility], [facility], [address], [facility] [place], [id number], [place] tel:[phone] [facility] [place] L2 wedge compression fracture, initial encounter for closed fractureOther forms of scoliosis, thoracolumbar regionSpondylo listhesis, lumbar region 0 Kwame Kerr. [facility], [address], [place], [place], [id number] , [place]. tel:[phone] Referring Provider: Rakel Arvizu [employer] [address] [place], [address]. tel:[phone] Family History Family Member Type Diagnosis Age At Onset No Information Payers Payer name Insurance type Covered democrat ID Authoralethaa tishannon(s) Medicare MB [id number] [facility] [id number] [facility] [id number] Social History Type Description Quantity Date Captured [...]
--- OUTSIDE RECORDS SUMMARY | 2024-06-07 10:26 | XMS_ITS | Continuity of Care Document ---
Author Organization [facility] Address [address] [place] [address] Phone Care Team Providers Care Trombone Slide Assembler Name Role Phone Helder Medina MD Unavailable [...] Antibodies Dna Antibody, Single Strand Dna Antibody, [place] Nuclear Antigen Antibodies Rheumatoid Factor, IGM Rheumatoid Factor, IGG, IGA Advance Directives Directive Yes / No Effective Date File Name No Information Encounters Encounter Description Practice Location Reason(s) For Visit Diagnoses Date Provider Providers Copied on Encounter Office/Outpa tient Visit, Est [facility], [address], [place], [address], [place] tel:[phone] [facility], Sjogren syndrome w/ inflammatory arthritis Apr-2 3 4 Lebedoff Helder. [address], [place], [place], [facility], [place]. tel:[phone] Referring Provider: Helder Jain, [address], [place], [address]. tel:[phone] [facility], [address], [place], [address], [place] tel:[phone] [facility], No Information Oct- 0 4 [facility]bed[facility] Helder. [address], [place], [address], [place]. tel:[phone] Referring Provider: Helder Jain, [address], [place], [place], [facility]. tel:[phone] Office/Outpa tient Visit, Est [facility], [address], [place], [address], [place] tel:[phone] [facility], Sjogren syndrome w/ inflammatory arthritisPain in left foot Oct- 0 4 [facility]bed[facility] Helder. [address], [address], [place], [address], [place]. tel:[phone] Referring Provider: Helder Jain, [address], [place], [place], [facility]. tel:[phone] Office/Outpa tient Visit, Est [facility], [address], [place], [address], [place] tel:[phone] [facility], Sjogren syndrome w/ inflammatory arthritisPrim mauri osteoarthriti s, right hand Apr-0 4 3 Lebed[facility] Helder. [address], [address], [place], [address], [place]. tel:[phone] Referring Provider: Helder Jain, [address], [place], [address]. tel:[phone] Office/Outpa tient Visit, Est [facility], [address], [place], [address], [place] tel:[phone] [facility], Sicca syndrome, unspecifiedWe akness 3 [facility]bed[facility] Helder. [address], [place], [address], [place]. tel:[phone] Referring Provider: Helder Jain, [address], [place], [address]. tel:[phone] Office/Outpa tient Visit, Est [facility], [address], [place], [address], [place] tel:[phone] [facility], Sicca syndrome, unspecifiedPa in in left shoulder 2 Lebedoff Helder. [address], [address], [place], [address], [place]. tel:[phone] Referring Provider: Helder Jain, [address], [place], [address]. tel:[phone] Office/Outpa tient Visit, Est [facility], [address], [place], [address], [place] tel:[phone] [facility], Sicca syndrome, unspecifiedDy spnea 2 Lebedoff Helder. [address], [place], [address], [place]. tel:[phone] Referring Provider: Helder Jain, [address], [place], [address]. tel:[phone] Office/Outpa tient Visit, Est [facility], [address], [place], [address], [place] tel:[phone] [facility], Sicca syndrome, unspecifiedOt her terminal block assembler (current) drug therapyPrimar y OA of right handDyspnea 1 Adam Pendleton. [address], [place], [address], [place]. tel:[phone] Referring Provider: Helder Jain, [address], [place], [address]. tel:[phone] Office/Outpa tient Visit, New [facility], [address], [place], [address], [place] tel:[phone] [facility], Sicca syndrome, unspecifiedPa in in rt ankleOther terminal block assembler (current) drug therapy 1 Adam Pendleton. [address], [address], [place], [address], [place]. tel:[phone] Referring Provider: Helder Jain, [address], [place], [address]. tel:[phone] [facility], [address], [place], [address], [place] tel:[phone] [facility] No Information 1 Mo Sullivan. [facility] [address] [facility] [address], [place], [address], [place]. tel:[phone] Family History Family Member Type Diagnosis Age At Onset No Information Immunizations Vaccine Date Status Comments COVID-19 Moderna administered Source: Ot er Provider COVID-19 Pfizer administered Note: 1 ; Source: Other Provider Payers Payer name Insurance type Covered constitution party ID Authoriza tion(s) [employer] Adv [id number] MB [id number] Social History Type Description Quantity Date Captured Comments Alcohol Use Details Caffeine Use Details Tobacco Use Status Current non-smoker Smoking Status Never smoker She gabi es in [place] with her . She is retired. 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 This appears to be well controlled currently. Ideally, this would not have been treated with group home prednisone, but as she has been on [...]
--- OUTSIDE RECORDS SUMMARY | 2024-06-07 10:26 | XMS_ITS | Data Portability ---
Author Organization [facility], [facility] Address [address] [place] [address] Care Team Providers Care Slip Dumper Name Role Phone [facility] Primary Care Provider Assessment No assessment [...] By Organization Details Last Modified Time 09/14/2021 [id number] Test each progra m for at least 2 weeks, adjusting amplitude as needed. May remain on a program as long as it is effective. Return as needed for reprogramming. [email or web address] Not available 09/14/2021 10:07:26 Patient states t hat Gemtessa samples were very effective, but it is not covered by her insurance. She was also given a rx for Myrbetriq. [email or web address] Not available 09/14/2021 10:08:49 11/12/2021 [id number] Over Active Blad betty (OAB): -Managed with [...] minutes [email or web address] Not available 11/12/2021 11:46:55 04/09/2022 [id number] Test each progra m for at least 2 weeks, adjusting amplitude as needed. May remain on a program as long as it is effective. Return as needed for reprogramming. [email or web address] Not available 04/09/2022 12:34:22 Patient states t hat Gemtesa samples were effective, but the rx was too expensive, so she stopped taking. She would like to try the Gemtesa again, but wonders of it is ok t take every other day, to spread the prescription out, and decrease the expense. I will ask Afsaneh Bui, PAC. [email or web address] Not available 04/09/2022 12:37:43 12/06/2022 [id number] Test each progra m for at least 2 weeks, adjusting amplitude as needed. May remain on a program as long as it is effective. Return as needed for reprogramming. [email or web address] Not available 12/06/2022 10:55:41 04/28/2023 [id number] Over Active Blad betty (OAB): -Managed with [...] color -advantus YELLOW yellow Not Available [facility] [address] [facility] [address], [place], [address], 09/14/2021 10:41:46 09/15/19 22 09/14/2021 UA DIP CS ADVAN TUS appearance -advantus CLEAR clear Not Available [facility] [address] [facility] [address], [place], [address], 09/14/2021 10:41:46 09/15/19 22 09/14/2021 UA DIP CS ADVAN TUS glucose -advantus NEGATI VE mg/dL negati ve Not Available [facility] [address] [facility] [address], [place], [address], 09/14/2021 10:41:46 09/15/19 22 09/14/2021 UA DIP CS ADVAN TUS bilirubin -advantus NEGATI VE negati ve Not Available [facility] [address] [facility] [address], [place], [address], 09/14/2021 10:41:46 09/15/19 22 09/14/2021 UA DIP CS ADVAN TUS ketones -advantus NEGATI VE mg/dL negati ve Not Available [facility] [address] [facility] [address], [place], [address], 09/14/2021 10:41:46 09/15/19 22 09/14/2021 UA DIP CS ADVAN TUS sp. gravity -advantus 1.010 1.010- 1.025 Not Available [facility] [address] [place] [address] [address], [place], [address], 09/14/2021 10:41:46 09/15/19 22 09/14/2021 UA DIP CS ADVAN TUS pH -advantus 6.0 5.0-8. 0 Not Available [facility] [address] [facility] [address], [place], [address], 09/14/2021 10:41:46 09/15/19 22 09/14/2021 UA DIP CS ADVAN TUS protein -advantus NEGATI VE mg/dL negati ve Not Available [facility] [address] [facility] [address], [place], [address], 09/14/2021 10:41:46 09/15/19 22 09/14/2021 UA DIP CS ADVAN TUS urobilinogen -advantus 0.2 normal Not Available [facility] [address] [facility] [address], [place], [address], 09/14/2021 10:41:46 09/15/19 22 09/14/2021 UA DIP CS ADVAN TUS nitrites -advantus NEGATI VE negati ve Not Available [facility] [address] [place] [address] [address], [place], [address], 09/14/2021 10:41:46 09/15/19 22 09/14/2021 UA DIP CS ADVAN TUS blood -advantus SMALL negati ve abnormal Not Available [facility] [address] [place] [address] [address], [place], [address], 09/14/2021 10:41:46 09/15/19 22 09/14/2021 UA DIP CS ADVAN TUS leukocytes -advantus NEGATI VE negati ve Not Available [facility] [address] [place] [address] [address], [place], [address], 09/14/2021 10:41:46 09/15/19 22 09/14/2021 UA DIP CS ADVAN TUS performed by Bibi Ruiz Not Available [facility] [address] [facility] [address], [place], [address], 09/14/2021 10:41:46 09/15/19 22 09/14/2021 UA DIP [...] ----- ----- ----- ----- ---- Not Available [facility] [address] [place] [address], [place], [address], 09/14/2021 10:41:46 09/15/19 22 09/14/2021 UA MICRO SCOPI C U-WBC 0 - 2 [hpf] 0 - 2 Not Available [facility] [address] [place] [address], [place], [address], 09/14/2021 10:41:47 09/15/19 22 09/14/2021 UA MICRO SCOPI C U-RBC 0 - 2 [hpf] 0 - 2 Not Available [facility] [address] [place] [address], [place], [address], 09/14/2021 10:41:47 09/15/19 22 09/14/2021 UA MICRO SCOPI C bacteria Small [hpf] negati ve abnormal Not Available [facility] [address] [place] [address], [place], [address], 09/14/2021 10:41:47 09/15/19 22 09/14/2021 UA MICRO SCOPI C squamous epi Small /lpf negati ve,sma ll Not Available [facility] [address] [place] [address], [place], [address], 09/14/2021 10:41:47 Result Notes None recorded. 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 3 11:27:33 Problem Notes None recorded. Procedures Surgical History Date Name Laterality Status Provider Name and Address Organization Details Recorded Time 08/20/19 25 COMPLEX VISIT active ELMA Burciaga [address] [place] [address],[address], [address], [facility] 04/10/2024 11:39:57 08/20/19 25 Bladder Scan active ELMA Burciaga [address] [place] [address],[address], [address], [facility] 04/10/2024 11:41:06 04/28/20 23 Sacral neuromodulation w/o reprogramming completed ELMA Burciaga [address] [place] [address],[address], [address], [facility] 04/28/2023 11:57:28 04/28/20 23 Bladder Scan completed Radhika Mathis [facility] 04/28/2023 11:36:21 12/07/19 23 Sacral neuromodulation w/o reprogramming completed Demetri Bosch [facility] 12/06/2022 11:08:45 04/09/20 22 Sacral Stimulator Reprogramming completed Demetri Bosch [facility] 04/09/2022 12:49:34 09/15/19 22 Bladder Scan completed Merry Ocampo [facility] 09/14/2021 10:25:15 09/15/19 22 Sacral neuromodulation w/o reprogramming completed Demetri Bosch [facility] 09/14/2021 10:15:12 08/03/19 22 Past Data Reviewed completed Charlotte Smith MD [address] [facility],[address], [place], [address], [facility] 08/03/2021 08:29:52 08/03/19 22 Bladder Scan completed Usha Corado [facility] 08/03/2021 11:50:03 11/27/19 21 Sacral Stimulator Reprogramming completed Demetri Bosch [facility] 11/27/2020 12:44:01 09/17/19 20 Implant neuroelectrodes completed Not Available [facility] 12/13/2019 18:11:39 11/29/19 19 Insert bladder catheter completed Not Available [facility] 12/13/2019 18:11:39 11/14/19 15 Colonoscopy completed Lucinda Nuñez [facility] 11/11/2020 11:57:08 11/29/19 09 Total hip arthroplasty completed Not Available [facility] 12/13/2019 18:11:39 11/29/19 00 Unlisted procedure breast completed Not Available [facility] 12/13/2019 18:11:39 Appendectomy add-on completed Not Available [facility] 12/13/2019 18:11:39 Imaging Results None recorded. Procedure Notes None recorded. Medical Equipment None Reported. Allergies Allergen ID Allergen Name Allergen Category Reaction Reaction Severity Criticality Documentation Date Start Date Code Code System Note Provider Name and Address Organization Details Recorded Time 19861108 Product containin g nitroimid azole (product) medicatio n Not available Not available Not available 12/12/2019 87108 7004 SNOMED Not Available [facility] 0 23:50:45 19861202 sulindac medicatio n Not available Not available Not available 12/12/2019 36077 RxNorm Not Available [facility] 0 23:50:45 19870101 Medicinal product containin g penicilli n and acting as antibacte rial agent (product) medicatio n itching Not available Not available 12/12/2019 63625 05 SNOMED Not Available [facility] 0 23:50:45 908316 atorvasta tin medicatio n Not available Not available Not available 12/12/2019 42228 RxNorm Not Available [facility] 0 23:50:45 077525 tetracycl ine medicatio n Not available Not available Not available 12/12/2019 94689 RxNorm Not Available [facility] 0 23:50:45 398902 alendrona te sodium medicatio n Not available Not available Not available 12/12/201910010 2 RxNorm Not Available [facility] 0 23:50:45 393747 amoxicill in medicatio n Not available Not available Not available 12/12/2019 723 RxNorm Not Available [facility] 0 23:50:45 608786 oxybutyni n chloride Not available dizziness Not available Not available 12/12/2019 49887 RxNorm fatig ue Not Available [facility] 0 23:50:45 002810 aspirin medicatio n Not available Not available Not available 12/12/2019 1191 RxNorm Not Available [facility] 0 23:50:46 843235 losartan Not available Not available Not available Not available 12/12/2019 43508 RxNorm Not Available [facility] 0 23:50:46 885864 estrogens , conjugate d (SNF) medicatio n Not available Not available Not available 12/12/2019 4099 RxNorm Not Available [facility] 0 23:50:46 939465 ciproflox acin medicatio n Not available Not available Not available 12/12/2019 2551 RxNorm Not Available [facility] 0 23:50:46 184738 hydrochlo rothiazid e medicatio n Not available Not available Not available 12/12/2019 5487 RxNorm Not Available [facility] 0 23:50:46 691701 metoprolo l Not available Not available Not available Not available 12/12/2019 6918 RxNorm Not Available [facility] 0 23:50:46 394331 naproxen medicatio n Not available Not available Not available 12/12/2019 7258 RxNorm Not Available [facility] 0 23:50:46 19871104 clindamyc in Not available Not available Not available Not available 12/12/2019 2582 RxNorm Not Available [facility] 0 23:50:46 341856 Substance with sulfonami de structure and antibacte rial mechanism of action (substanc e) medicatio n Not available Not available Not available 11/11/2020 12549 8003 SNOMED [facility] 11:56:30 512858 Myrbetriq medicatio n swelling Not available Not available 10/05/2021 90091 92 RxNorm [address], [address], [facility] 2 13:18:14 607941 Sambucus Elderberr y Immune medicatio n Not available Not available Not available 04/09/2022 08200 0 UNK Demetri Danitza [facility] 2 12:14:11 Medications Name Sig [...] Updated DateTime 04/09/2022 154.94 cm 27.8 kg/m2 09093.08 g Demetri Bosch [facility] 04/09/2022 12:13:52 Date Recorded Body height Body mass index (BMI) Body weight Provider Name and Address Organization Details Last Updated DateTime 12/06/2022 154.94 cm 25.5 kg/m2 15268.97 g Demetri Bosch [facility] 12/06/2022 10:41:56 Date Recorded Body height Body mass index (BMI) Body weight Provider Name and Address Organization Details Last Updated DateTime 04/28/2023 154.94 cm 25.5 kg/m2 41182.97 g Radhika Mathis [facility] 04/28/2023 11:25:35 Date Recorded Body height Body mass index (BMI) Body weight Provider Name and Address Organization Details Last Updated DateTime 09/14/2021 158.75 cm 26.5 kg/m2 15574.08 g Demetri Bosch [facility] 09/14/2021 09:54:39 Date Recorded Body height Body mass index (BMI) Body weight Provider Name and Address Organization Details Last Updated DateTime 09/14/2021 158.75 cm 26.5 kg/m2 69087.[address] [facility] 09/14/2021 10:08:57 Date Recorded Body height Body mass index (BMI) Body weight Provider Name and Address Organization Details Last Updated DateTime 11/12/2021 154.94 cm 27.8 kg/m2 92710.[address] [facility] 11/12/2021 11:32:20 Social History Question Answer Notes LastModified by Organizat ion Details LastModified Time Tobacco Smoking Status Never Smoker Not Available [facility] 12/13/2019 02:00:45 What Is Your Level Of Alcohol Consumption? None Information not available 09/14/2021 What Is Your Level Of Caffeine Consumption? Heavy Information not available 09/14/2021 Are You Currently Employed? No Information not available 09/14/2021 Race [place] Information n ot available 12/13/2019 Ethnicity Not /Lat vane Information not available 09/14/2021 Preferred Language Finnish Information not available 09/14/2021 Recreational Drug Use No Information not available 09/14/2021 Could You Be ? No Information not available 09/14/2021 Marital Status [email or web address] Informati on not available 12/13/2019 What Was The Date Of Your Most Recent Tobacco Screening? 12/06/2022 [email or web address] Information not available 12/06/2022 What Is Your [...] conjugate PCV 13 07/04/2017 completed STEPHEN Germain [facility] 04/28/2023 11:25:40 Past Encounters Encounter ID Performer Location Encounter Start Date Encounter Closed Date Diagnosis/Indication Diagnosis SNOMED-CT Code Diagnosis ICD10 Code [id number] Charlotte Smith MD [address] [address] 04/15/2020 10:02:52 04/25/2020 12:54:57 Overactive urinary bladder 915487021 N32.81 Urge incon tinence of urine 09936439 N39.41 [id number] Charlotte Smtih MD [address] [address] 05/13/2020 10:14:48 05/13/2020 14:22:18 Overactive urinary bladder 724204111 N32.81 Urge incon tinence of urine 99568166 N39.41 History of urinary tract infection 7120755853 107 Z87.440 [id number] Charlotte Smith MD [address] [place] [address] 11/11/2020 11:46:55 11/11/2020 13:40:18 Overactive urinary bladder 173013329 N32.81 Urge incon tinence of urine 99810357 N39.41 [id number] Demetrijovita Bosch [facility] [address] [place] [address],it e [address] [place] [address] 11/26/2020 10:15:12 12/02/2020 15:37:48 Overactive urinary bladder 907068452 N32.81 Nocturia 243041380 R35.1 [id number] Charlotte Smith MD [facility] [address] [place] [address] [address] [place] [address] 08/03/2021 11:31:50 08/03/2021 12:09:22 Overactive urinary bladder 819978924 N32.81 Urge incon tinence of urine 16904244 N39.41 Nocturia 876566362 R35.1 [id number] ELMA Burciaga [facility] [address] [place] [address],[facility] e [address] [place] [address] 09/14/2021 10:06:36 09/14/2021 14:16:12 Overactive urinary bladder 795740109 N32.81 Urge incon tinence of urine 49321523 N39.41 Nocturia 207924325 R35.1 [id number] Demetri Bosch [facility] [address] [place] [address] [place] [address] 09/14/2021 09:30:06 09/14/2021 14:31:59 Overactive urinary bladder 516584788 N32.81 [id number] ELMA Burciaga [facility] [address] [place] [address] [place] [address] 11/12/2021 11:29:59 11/12/2021 12:37:25 Overactive urinary bladder 938581330 N32.81 Urge incon tinence of urine 74937186 N39.41 Nocturia 150541531 R35.1 [id number] Demetri Bosch [facility] [address] [facility] [place] [address] 04/09/2022 11:43:46 04/09/2022 13:38:20 Overactive urinary bladder 828041859 N32.81 [id number] Demetri Bosch [facility] [address] [facility] [place] [address] 12/06/2022 10:28:13 12/06/2022 11:24:29 Overactive urinary bladder 058726307 N32.81 [id number] ELMA Burciaga [facility] [address] [facility] e [address] [place] [address] 04/28/2023 11:22:38 04/28/2023 12:04:03 Overactive urinary bladder 319108643 N32.81 Urge incon tinence of urine 01742894 N39.41 Nocturia 958162752 R35.1 Health Concerns Section Related Observation LastModified by Organization Detai ls LastModified Time None Recorded Concern Status LastModified by Organization Details LastModified Time None Recorded Advance Directives Directive None Recorded Payers Encounter Date Sequence Insurance Name Policy Number Policy Betancourt Covered Member ID Betancourt Member ID Guarantor Name 09/14/2021 2 [place] [employer] P[place]y [employer] [place] [id number] P[employer]y [employer] Wood 09/14/2021 2 [facility] [id number] Patsy A Wood [id number] Patsy A Wood 11/12/2021 2 [place] [employer] Patsy A Wood [id number] P[employer]y [employer] 11/12/2021 2 [place] [id number] Patsy A Wood [id number] Patsy A Wood 04/09/2022 2 [place] Patsy A Wood [id number] Patsy A Wood 04/09/2022 2 [facility] [id number] Patsy A Wood [id number] Patsy [employer] 12/06/2022 2 [place] Patsy A Wood [id number] Patsy [employer] Wood 12/06/2022 2 [facility] [id number] Patsy Beltrán [id number] Patsy Beltrán 04/28/2023 2 [place] [employer] [facility] Patsy Beltrán [id number] Patsy Beltrán 04/28/2023 2 [facility] [id number] Patsy Beltrán [id number] Patsy Beltrán Notes Date Note Type Note [...] to be almost every hour. ELMA Burciaga [address] [place] [address],[address], [place], [address], [facility] 09/14/2021 10:49:41 11/12/2021 text/html 11/12/21:Patient [...] with sjorgrens. This visit was conducted using [employer] phone technology. Prior to conducting our health visit, the patient and I discussed the risks, benefits and alternatives to phone visits. The patient elected to proceed with the phone visit. ELMA Burciaga [address] [place] [address],[address], [place], [address], [facility] 11/12/2021 11:50:24 12/06/2022 text/html Frequent [...] changed Rate chaanged Resolution changed Demetri Bosch [facility] 12/06/2022 11:08:58 04/28/2023 text/html 04/28/23:Patient presents [...] be almost every hour. ELMA Burciaga [address] [facility],[address], [place], [address], [facility] [place] [facility] 04/28/2023 11:58:40 OBGyn Episode No OBEpisode recorded.
--- OUTSIDE RECORDS SUMMARY | 2024-06-07 10:26 | XMS_ITS | Clinical Summary ---
Author Organization [email or web address] [facility] Address [place], [place] [address] Care Team Providers Care Pigment And Lacquer Mixer Name Role Phone Kd Restrepo MD Unavailable [phone] Jose Napier PANettieC Primary Care Provider [phone] Charlotte Smith MD Unavailable [phone] Charlotte Anderson MD Unavailable [phone] Allergies Active Allergy Reactions Criticality Noted Date Comments Amoxicillin 01/19/2007 Aspirin Rash,Itching 01/20/2006 Atorvastatin Myalgia 12/27/2014 Blood-Group Specific Substance Other - Describe In Comment Field High 09/01/2016 Patient has Anti-D. Blood product orders may be delayed. Draw one red top and two purple top tubes for all Type and Screen/Type and Crossmatch orders. N-Ycyc-Xeqcdkiue-Propol-Eld erb *Unknown 02/28/2024 Ciprofloxacin Rash 05/31/2012 Clindamycin [...] once daily. 90 Capsule 05/18/20 24 Active busPIRone (BUSPAR) 5 mg tabletIndications :Anxiety TAKE ONE TABLET BY MOUTH THREE TIMES DAILY 90 Tablet 11/21/19 21 024 Discontinued(*P atient states no longer taking) dilTIAZem CD (CARDIZEM CD) 240 mg extended release 24 hr capsuleIndication s:Essential hypertension Take 1 Capsule (240 mg) by mouth once daily. 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 09/27 [...] Date Anticoagulation monitoring, INR range 2-3 [Z79.01]; [place] Target 2.5-3.0 12/06/2016 1 Pessary maintenance 02/25/2016 09/28/19 20 Anticoagulation monitoring, goal range 2.0-2.6 09/19/2013 01/09/2018 Abnormal stress test 11/17/2010 011 Routine general medical exam ination at a health care facility 07/12/2009 09/28/2019 Overview (12/06/2012): Normal CT angiogram 11/2010 Hip pain 05/06/2008 07/09/2009 Onychomycosis 05/06/2008 08/27/2008 HX OF VENOUS THROMBOSIS AND EMBOLISM 11/09/2006 12/06/2012 Bilateral pulmonary embolism 10/11/2006 11/18/2017 AFTERCARE, LONG-TERM USE, [place] DICATIONS NEC-PLAQUENIL 10/22/2003 Encounters Date Type Department Care Team Description 05/18/2024 10:30 AM LICENSED JOURNEYMAN ELECTRICIAN Office Visit [facility] [address] [place] [phone] Follow Up (LLE angio, discuss Plavix ) 05/18/2024 Telephone [facility] [address] [place] [phone] Adelaide Grimes MD Blood Pressure 05/18/2024 Travel 05/17/2024 Refill [facility] [address] [place], [place] [phone] Adelaide Grimes MD Refill Request (Diltiazem Cd) 05/13/2024 Travel 05/11/2024 Telephone [facility] [address] [place] [phone] Charlotte Anderson MD Questions 05/10/2024 2:00 PM LICENSED JOURNEYMAN ELECTRICIAN Ancillary Procedure [facility] [address] [place] [address] 05/10/2024 Travel 05/07/2024 Telephone [facility] [address] [place] [phone] Charlotte Anderson MD Questions (Medication questions and concerns) 05/06/2024 Travel 05/04/2024 7:30 AM CDT Anesthesia Event [facility] [address] [place] [address] Delia Chavira MD 05/04/2024 5:27 AM CDT - 05/04/2024 4:40 PM CDT Hospital Encounter [facility] [address] [place] [address] Charlotte Anderson MD Peripheral arterial disease (HC) (Primary Dx) Discharge Disposition: Home Self Care 05/04/2024 Travel 05/02/2024 Travel 04/09/2024 9:30 AM CDT Office Visit [facility] [address] [facility] [address] [place] [phone] Charlotte Anderson MD Follow Up ( Venous stasis ulcer of ankle, left ) 04/09/2024 Travel 04/05/2024 Travel 04/02/2024 Telephone [facility] [address] [place] [phone] Charlotte Anderson MD 03/30/2024 Telephone [facility] [address] [facility] [address] [place] [phone] Charlotte Anderson MD Questions 03/21/[address] [phone] Charlotte Anderson MD status of left wound ankle from Last 3 Months Immunizations Name Administration Dates Next Due AMB INFLUENZA IIV3 (AGE 65+ YRS) PF (Flu Clinic Only) 03/23/2017 AMB Influenza, IIV3 (Age >=3 years) Preserve Free (Flu Clinic Only) 04/08/2009 AMB Influenza, IIV3 (Age >=3 years)(Flu Clinic Only) 04/06/2013,04/16/2011,04/24/2008 COVID-19 vaccine ([employer] 30mcg/0.3mL) PF, MDV 09/02/2020,08/12/2020 Influenza A [...] Comments Blood Pressure 197/87 05/18/2024 10:31 AM LICENSED JOURNEYMAN ELECTRICIAN Pulse 67 05/18/2024 10:29 AM LICENSED JOURNEYMAN ELECTRICIAN Temperature 36 C (96.8 F) 05/04/2024 9:56 AM CDT Respiratory Rate 12 05/18/2024 10:29 AM LICENSED JOURNEYMAN ELECTRICIAN Oxygen Saturation 98% 05/18/2024 10:29 AM LICENSED JOURNEYMAN ELECTRICIAN Inhaled Oxygen Concentration - - Weight 63 kg (139 lb) 05/04/2024 5:57 AM CDT Height 149.9 cm (4' 11) 05/04/2024 5:57 AM CDT Body Mass Index 28.07 05/04/2024 5:57 AM CDT Plan of Treatment Upcoming Encounters Date Type Department Care Team (Late st Contact Info) Description 06/08/2024 10:30 AM LICENSED JOURNEYMAN ELECTRICIAN Office Visit [facility] [address] [place] [address] [place] [address] [place] [address] 08/22/2024 8:30 AM LICENSED JOURNEYMAN ELECTRICIAN Appointment [facility] [address] [place], [place] [phone] 08/22/2024 9:15 AM LICENSED JOURNEYMAN ELECTRICIAN Appointment [facility] [address] [place], [place] [phone] 08/22/2024 11:00 AM LICENSED JOURNEYMAN ELECTRICIAN Office Visit [facility] [address] [place] [phone] Charlotte Anderson MD [address] [place], [place] [phone] 08/30/2024 10:00 AM LICENSED JOURNEYMAN ELECTRICIAN Office Visit [facility] [address] [place], [place] [phone] [place] [address] [place], [place] [phone] Health Maintenance Due Date Last Done Comments [...] history exists Medical Devices Implanted Type Area Otolaryngology Surgeon Device Identifier Shelf Expiration Date Model / Serial / Lot Lead Kit 4.32mm Spacing 28cm Length Interstim - [id number] Implanted:Qty: 1 on 04/01/2020 by Charlotte Smith MD at [facility] N/A: Sacrum [employer] Pain [employer] 09/30/2021 [id number] / / [id number] Stimulator 7.7mm 14cc Interstim Ii - [id number] Implanted:Qty: 1 on 04/01/2020 by Charlotte Smith MD at [facility] N/A: Sacrum [employer] Pain Therapy 03/31/2021 [id number] / [id number] / Description:PIN [id number] Procedures Procedure Name Priority Date/Time Associated Diagnosis Comments ECHO TTE COMPLETE WO CONTRAST Routine 05/10/2024 2:24 PM LICENSED JOURNEYMAN ELECTRICIAN Nonrheumatic mitral valve regurgitation [facility] ACTIVATED CLOTTING [...] 2 SITES AXIAL Routine 07/02/2019 11:48 AM LICENSED JOURNEYMAN ELECTRICIAN Osteopenia of multiple sites from Last 3 Months or Most Recently Relevant to Health Maintenance Results * ECHO TTE COMPLETE WO CONTRAST (05/10/2024 2:24 PM LICENSED JOURNEYMAN ELECTRICIAN) AORTIC VALVE MEAN PG 5 mmHg EJECTION FRACTION 58 % PEAK TR VELOCITY 2.7 m/s LVEDD 4.7 cm MITRAL VALVE MR ERO 21 mm2 EJECTION FRACTION 55 - 60% Anatomical Region Laterality Modality Ultrasound 05/10/2024 1:46 PM LICENSED JOURNEYMAN ELECTRICIAN Narrative 05/10/2024 4:38 PM LICENSED JOURNEYMAN ELECTRICIAN ECHOCARDIOGRAM RODERICK HEATON : 1940 83 years Study Date: 05/10/2024 1:46:47 PM Gender: F BP: 133/80 mmHg Height: 149.86 cm BSA: 1.58 m Weight: 63.05 kg Tech: [facility] MD: ADELAIDE GRIMES Site: [facility] Reading Location: [facility] Patient Location: Outpatient. Procedure: 2D, Color Doppler [...] . This study was interpreted by an [facility] accredited facility. Final Procedure Note Carlos A Vidales MD - 05/10/2024 ECHOCARDIOGRAM RODERICK HEATON : 1940 83 years Study Date: 05/10/2024 1:46:47 PM Gender: F BP: 133/80 mmHg Height: 149.86 cm BSA: 1.58 m Weight: 63.05 kg Tech: ESTEVES Referring MD: ADELAIDE GRIMES Site: [facility] Reading Location: [facility] Patient Location: Outpatient. Procedure: 2D, Color Doppler [...] . This study was interpreted by an [facility] accredited facility. Final Adelaide Grimes MD ECHO ORD * (ABNORMAL) ACTIVATED CLOTTING TIME [id number] ACT (05/04/2024 9:31 AM CDT) Only the most recent of3 resultswithin the time period is included. [facility] ACTIVATED CLOTTING TIME, POCT 128(H) 74 - 125 sec 05/04/2024 10:38 AM CDT [facility] Blood BLOOD SPECIMEN / Unknown 05/04/2024 9:31 AM CDT 05/04/2024 10:38 AM CDT Charlotte Anderson MD HEMATOLOGY Performing Organization Address [facility]/ZIP Co de Phone Number [facility] SENDOUT [place]NAL ZIP [phone] [place] [address] * (ABNORMAL) PROTIME-INR (05/04/2024 6:58 AM CDT) INR 1.4(H) <1.3 05/04/2024 7:13 AM CDT [facility] PROTIME 16.0(H) 10.6 - 12.4 sec 05/04/2024 7:13 AM CDT [facility] Blood BLOOD SPECIMEN / Unknown Non-Lab Venipuncture / Unknown 05/04/2024 6:58 AM CDT 05/04/2024 7:02 AM CDT [facility] - 05/04/2024 7:13 AM CDT Therapeutic [...] Charlotte Anderson MD HEMATOLOGY Performing Organization Address [facility] Co de Phone Number [facility] SENDOUT INTERNAL ZIP [phone] [place] [phone] * (ABNORMAL) CBC with Platelets no Differential (05/04/2024 6:19 AM CDT) WHITE BLOOD COUNT 5.9 4.5 - 11.0 thou/cu mm 05/04/2024 7:01 AM CDT [facility] RED BLOOD COUNT 3.88(L) 4.00 - 5.20 mil/cu mm 05/04/2024 7:01 AM CDT [facility] HEMOGLOBIN 12.1 12.0 - 16.0 g/dL 05/04/2024 7:01 AM [facility] HEMATOCRIT 36.9 33.0 - 51.0 % 05/04/2024 7:01 AM [facility] MCV 95 80 - 100 fL 05/04/2024 7:01 AM [facility] MCH 31.2 26.0 - 34.0 pg 05/04/2024 7:01 AM [facility] MCHC 32.8 32.0 - 36.0 g/dL 05/04/2024 7:01 AM [facility] RDW 14.2 11.5 - 15.5 % 05/04/2024 7:01 AM [facility] PLATELET COUNT 222 140 - 440 thou/cu mm 05/04/2024 7:01 AM [facility] MPV 9.3 6.5 - 11.0 fL 05/04/2024 7:01 AM [facility] NRBC 0.0 % 05/04/2024 7:01 AM [facility] ABS NRBC 0.0 thou /cu mm 05/04/2024 7:01 AM [facility] Blood BLOOD SPECIMEN / Unknown Non-Lab Venipuncture / Unknown 05/04/2024 6:19 AM CDT 05/04/2024 6:53 AM T Marcus WILLS HEMATOLOGY [facility] SENDOUT INTERNAL ZIP [address] [place] [address] * (ABNORMAL) Basic Metabolic Panel (05/04/2024 6:19 AM CDT) SODIUM 139 136 - 145 mmol/L 05/04/2024 7:28 AM [facility] POTASSIUM 3.4(L) 3.5 - 5.1 mmol/L 05/04/2024 7:28 AM [facility] CHLORIDE 101 98 - 107 mmol/L 05/04/2024 7:28 AM [facility] CO2,TOTAL 28 22 - 29 mmol/L 05/04/2024 7:28 AM [facility] ANION GAP 10 5 - 18 05/04/2024 7:28 AM [facility] GLUCOSE 83 70 - 99 mg/dL 05/04/2024 7:28 AM CDT [facility] CALCIUM 9.1 8.8 - 10.2 mg/dL 05/04/2024 7:28 AM T [facility] BUN 19 8 - 23 mg/dL 05/04/2024 7:28 AM T [facility] CREATININE 1.04(H) 0.50 - 0.90 mg/dL 05/04/2024 7:28 AM T [facility] BUN/CREAT RATIO 18 10 - 20 7:28 AM T [facility] eGFR 53(L) >90 mL/min/1.7 3m2 05/04/2024 7:28 AM T [facility] Comment:As of 2021, eG FR [...] 05/04/2024 6:52 AM CDT Marcus WILLS CHEMISTRY [facility] SENDOUT INTERNAL ZIP [phone] [place] [address] * (ABNORMAL) XR DXA BONE DENSITY 2 SITES AXIAL (07/02/2019 11:48 AM LICENSED JOURNEYMAN ELECTRICIAN) Anatomical Region Laterality Modality Spine, HIPS, HIPL, HIPR Other Narrative 07/06/2019 11:01 AM LICENSED JOURNEYMAN ELECTRICIAN Please see scanned document for results of this study. Rakel Connor DO DEXA from Last 3 Months or Most Recently Relevant to Health Maintenance Advance Directives Documents on File Type Date Recorded Patient Repatcher Expl anation Healthcare Directive 05/04/2024 5:29 AM Healthcare Directive 07/19/2016 2:58 PM RO CESARIO HEATON & RADHA HEATON Healthcare Directive 05/14/2016 [...] 8:45 AM 09/01/2016 4:04 PM Care Teams Pigment And Lacquer Mixer Relationship Specialty Start Date End Date Jose Napier, PANettieC [address] [place] [id number] PCP - General Physician Carrier Packer 03/01/24 Kd Restrepo MD Endocrinology 11/24/11 Charlotte Smith MD [address] [place] [address] Surgery - Urology 03/01/24 Charlotte Anderson MD [address] [address] Surgery - Vascular 03/21/24
== END 2024-06-07 10:24 | disposition home or self-care (01) ==
LOC: WOUND 10:23
PROVIDERS: PCP Physician Assistant Medical; Visit Provider Nurse Practitioner Family
DX: I87.2 Venous insufficiency (chronic) (peripheral) (principal); I73.9 Peripheral vascular disease, unspecified; I89.0 Lymphedema, not elsewhere classified; L97.322 Non-pressure chronic ulcer of left ankle with fat layer exposed
CPT/HCPCS: 97597

== ENCOUNTER 2024-06-15 09:58 | Outpatient (CLI) | payer OTHER, SELFPAY | END 2024-06-15 09:59 | disposition home or self-care (01) | LOC: WOUND 09:59 | PROVIDERS: PCP Physician Assistant Medical; Visit Provider Nurse Practitioner Family | DX: I87.2 Venous insufficiency (chronic) (peripheral) (principal); I89.0 Lymphedema, not elsewhere classified; I73.9 Peripheral vascular disease, unspecified; L97.322 Non-pressure chronic ulcer of left ankle with fat layer exposed | CPT/HCPCS: 15271; Q4101 ==

== ENCOUNTER 2024-06-22 09:55 | Outpatient (CLI) | payer OTHER, SELFPAY | END 2024-06-22 09:56 | disposition home or self-care (01) | LOC: WOUND 09:55 | PROVIDERS: PCP Physician Assistant Medical; Visit Provider Nurse Practitioner Family | DX: I87.2 Venous insufficiency (chronic) (peripheral) (principal); I89.0 Lymphedema, not elsewhere classified; I73.9 Peripheral vascular disease, unspecified; L97.322 Non-pressure chronic ulcer of left ankle with fat layer exposed; Z79.52 Long term (current) use of systemic steroids | CPT/HCPCS: G0463 ==

== ENCOUNTER 2024-06-29 09:58 | Outpatient (CLI) | payer OTHER, SELFPAY | END 2024-06-29 09:59 | disposition home or self-care (01) | LOC: WOUND 09:58 | PROVIDERS: PCP Physician Assistant Medical; Visit Provider Nurse Practitioner Family | DX: I87.2 Venous insufficiency (chronic) (peripheral) (principal); I73.9 Peripheral vascular disease, unspecified; I89.0 Lymphedema, not elsewhere classified; L97.322 Non-pressure chronic ulcer of left ankle with fat layer exposed | CPT/HCPCS: 15271; 15272; Q4101 ==

== ENCOUNTER 2024-07-09 09:29 | Outpatient (CLI) | payer OTHER, SELFPAY | END 2024-07-09 09:30 | disposition home or self-care (01) | LOC: NFLDREF 07-10 03:01 | PROVIDERS: PCP Physician Assistant Medical; Referring Provider Physician Assistant Medical; Visit Provider Physician Assistant Medical | DX: N30.00 Acute cystitis without hematuria (principal); B96.1 Klebsiella pneumoniae [K. pneumoniae] as the cause of diseases classified elsewhere | CPT/HCPCS: 87086; 87186 ==

== ENCOUNTER 2024-07-13 09:54 | Outpatient (CLI) | payer OTHER, SELFPAY | END 2024-07-13 09:55 | disposition home or self-care (01) | LOC: WOUND 09:54 | PROVIDERS: PCP Physician Assistant Medical; Visit Provider Nurse Practitioner Family | DX: I87.2 Venous insufficiency (chronic) (peripheral) (principal); I89.0 Lymphedema, not elsewhere classified; I73.9 Peripheral vascular disease, unspecified; L97.322 Non-pressure chronic ulcer of left ankle with fat layer exposed | CPT/HCPCS: 11042 ==

== ENCOUNTER 2024-07-20 09:59 | Outpatient (CLI) | payer OTHER, SELFPAY | END 2024-07-20 10:00 | disposition home or self-care (01) | LOC: WOUND 09:59 | PROVIDERS: PCP Physician Assistant Medical; Visit Provider Nurse Practitioner Family | DX: I87.2 Venous insufficiency (chronic) (peripheral) (principal); I73.9 Peripheral vascular disease, unspecified; I89.0 Lymphedema, not elsewhere classified; L97.322 Non-pressure chronic ulcer of left ankle with fat layer exposed | CPT/HCPCS: 11042 ==

== ENCOUNTER 2024-07-27 09:53 | Outpatient (CLI) | payer OTHER, SELFPAY | END 2024-07-27 09:54 | disposition home or self-care (01) | PROVIDERS: PCP Physician Assistant Medical; Visit Provider Nurse Practitioner Family | DX: I87.2 Venous insufficiency (chronic) (peripheral) (principal); I73.9 Peripheral vascular disease, unspecified; I89.0 Lymphedema, not elsewhere classified; L97.322 Non-pressure chronic ulcer of left ankle with fat layer exposed | CPT/HCPCS: 15271; Q4101 ==

== ENCOUNTER 2024-08-03 08:58 | Outpatient (CLI) | payer OTHER, SELFPAY | END 2024-08-03 08:59 | disposition home or self-care (01) | LOC: WOUND 08:58 | PROVIDERS: PCP Physician Assistant Medical; Visit Provider Physician Assistant | DX: I87.2 Venous insufficiency (chronic) (peripheral) (principal); I73.9 Peripheral vascular disease, unspecified; I89.0 Lymphedema, not elsewhere classified; L97.322 Non-pressure chronic ulcer of left ankle with fat layer exposed | CPT/HCPCS: 97597 ==

== ENCOUNTER 2024-08-10 09:53 | Outpatient (CLI) | payer OTHER, SELFPAY | END 2024-08-10 09:54 | disposition home or self-care (01) | LOC: WOUND 09:53 | PROVIDERS: PCP Physician Assistant Medical; Visit Provider Physician Assistant Surgical | DX: I87.2 Venous insufficiency (chronic) (peripheral) (principal); I89.0 Lymphedema, not elsewhere classified; I73.9 Peripheral vascular disease, unspecified; L97.322 Non-pressure chronic ulcer of left ankle with fat layer exposed | CPT/HCPCS: 97597 ==

== ENCOUNTER 2024-08-17 09:58 | Outpatient (CLI) | payer OTHER, SELFPAY | END 2024-08-17 09:59 | disposition home or self-care (01) | LOC: WOUND 09:58 | PROVIDERS: PCP Physician Assistant Medical; Visit Provider Nurse Practitioner Family | DX: I87.2 Venous insufficiency (chronic) (peripheral) (principal); I89.0 Lymphedema, not elsewhere classified; I73.9 Peripheral vascular disease, unspecified; L97.322 Non-pressure chronic ulcer of left ankle with fat layer exposed | CPT/HCPCS: 11042 ==

== ENCOUNTER 2024-08-24 09:56 | Outpatient (CLI) | payer OTHER, SELFPAY | END 2024-08-24 09:57 | disposition home or self-care (01) | LOC: WOUND 09:56 | PROVIDERS: PCP Physician Assistant Medical; Visit Provider Nurse Practitioner Family | DX: I87.2 Venous insufficiency (chronic) (peripheral) (principal); I89.0 Lymphedema, not elsewhere classified; I73.9 Peripheral vascular disease, unspecified; L97.322 Non-pressure chronic ulcer of left ankle with fat layer exposed | CPT/HCPCS: 11042 ==

== ENCOUNTER 2024-08-24 12:15 | Emergency (ER) | payer OTHER, SELFPAY ==
--- OUTSIDE RECORDS SUMMARY | 2024-08-24 12:17 | XMS_ITS | Data Portability ---
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 Plan of Treatment Reminders Order Date Submit Date Provider Last Modified By Organization Details Last Modified Time Details Appointments None recorded. Lab None recorded. Referral None recorded. Procedures None recorded. Surgeries None recorded. Imaging None recorded. Medication Orders Gemtesa 75 mg tablet 025 025 [id number], [address] [place] [address], [place], [address], 11:48:18 Patient TargetsNo targets recorded. Patient Instructions Encounter Date Encounter Id Patient Instructions Last Modified By Organization Details Last Modified Time 04/09/2022 [id number] Test each progra m for at least 2 weeks, adjusting amplitude as needed. May remain on a program as long as it is effective. Return as needed for reprogramming. [email or web address] Not available 04/09/2022 12:34:22 Patient states t hat Gemtesa samples were effective, but the rx was too expensive, so she stopped taking. She would like to try the Gemtesa again, but wonders of it is ok t take every other day, to spread the prescription out, and decrease the expense. I will ask MICHELET Blanco. [email or web address] Not available 04/09/2022 12:37:43 12/06/2022 [id number] Test each progra m for at least 2 weeks, adjusting amplitude as needed. May remain on a program as long as it is effective. Return as needed for reprogramming. [email or web address] Not available 12/06/2022 10:55:41 04/28/2023 [id number] Over Active Blad betty (OAB): -Managed with [...] if needed [email or web address] Not available 04/28/2023 11:58:26 08/20/2024 [id number] Test each progra m for at least 2 weeks, adjusting amplitude as needed. May remain on a program as long as it is effective. Return as needed for reprogramming. 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 [email or web address] Not available 08/20/2024 12:11:01 08/20/2024 [id number] Over Active Blad betty (OAB): -Managed with interstim. Happy with treatment. -Saw Brea today. Reprogramming as needed. -The OAB Pathway was reviewed, including fluid restriction, bladder irritants, and pelvic floor physical therapy -Failed myrbetriq due to side effects (nausea and fatigue) in the past. 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 -Taking Gemtesa prn, continue -Follow up 12 months, sooner if needed [email or web address] Not available 08/20/2024 11:52:35 Reason for Referral None Reported. 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 Procedures Surgical History Date Name Laterality Status Provider Name and Address Organization Details Recorded Time 08/20/19 Sacral neuromodulation w/o reprogramming completed Brea Bosch [facility] 08/20/2024 13:53:29 08/20/19 25 COMPLEX VISIT completed ELMA Burciaga [address] [place] [address],[address], [place], [address], [facility] 08/20/2024 11:37:25 08/20/19 25 Past Data Reviewed completed ELMA Burciaga [address] [place] [address],[facility] [address], [place], [address], [facility] 08/20/2024 11:37:44 08/20/19 25 Bladder Scan completed Radhika Mathis [facility] 08/20/2024 11:44:22 04/28/20 23 Sacral neuromodulation w/o reprogramming completed ELMA Burciaga [address] [place] [address],[address], [place], [address], [facility] 04/28/2023 11:57:28 04/28/20 23 Bladder Scan completed Radhika Mathis [facility] 04/28/2023 11:36:21 12/07/19 23 Sacral neuromodulation w/o reprogramming completed Brea Bosch [facility] 12/06/2022 11:08:45 04/09/20 22 Sacral Stimulator Reprogramming completed Brea Bosch [facility] 04/09/2022 12:49:34 09/15/19 22 Bladder Scan completed Merry Ocampo [facility] 09/14/2021 10:25:15 09/15/19 22 Sacral neuromodulation w/o reprogramming completed Brea Bosch [facility] 09/14/2021 10:15:12 08/03/19 22 Past Data Reviewed completed Charlotte Smith MD [address], [place], [address], [facility] 08/03/2021 08:29:52 08/03/19 22 Bladder Scan completed Usha Corado [facility] 08/03/2021 11:50:03 11/27/19 21 Sacral Stimulator Reprogramming completed Brea Bosch [facility] 11/27/2020 12:44:01 09/17/19 20 Implant neuroelectrodes completed Not Available [facility] 12/13/2019 18:11:39 11/29/19 19 Insert bladder catheter completed Not Available [facility] 12/13/2019 18:11:39 11/14/19 15 Colonoscopy completed Lucinda Nuñez [facility] 11/11/2020 11:57:08 11/29/19 09 Total hip arthroplasty completed Not Available [facility] 12/13/2019 18:11:39 11/29/19 00 Unlisted procedure breast completed Not Available [facility] 12/13/2019 18:11:39 Appendectomy add-on completed Not Available [facility] 12/13/2019 18:11:39 Imaging Results None recorded. Procedure Notes None recorded. Medical Equipment None Reported. Allergies Allergen ID Allergen Name Allergen Category Reaction Reaction Severity Criticality Documentation Date Start Date Code Code System Note Provider Name and Address Organization Details Recorded Time 19861108 Product containin g nitroimid azole (product) medicatio n Not available Not available Not available 12/12/2019 30005 7004 SNOMED Not Available Not Available Not Available 19861202 sulindac medicatio n Not available Not available Not available 12/12/2019 47289 RxNorm Not Available Not Available Not Available 19870101 Product containin g penicilli n (product) medicatio n itching Not available Not available 12/12/2019 54908 8001 SNOMED Not Available Not Available Not Available 19870109 atorvasta tin medicatio n Not available Not available Not available 12/12/2019 87558 RxNorm Not Available Not Available Not Available 436648 tetracycl ine medicatio n Not available Not available Not available 12/12/2019 26935 RxNorm Not Available Not Available Not Available 19870307 alendrona te sodium medicatio n Not available Not available Not available 12/12/201949017 2 RxNorm Not Available Not Available Not Available amoxicill in medicatio n Not available Not available Not available 12/12/2019 723 RxNorm Not Available Not Available Not Available 19870704 oxybutyni n chloride Not available dizziness Not available Not available 12/12/2019 10073 RxNorm fatig ue Not Available Not Available Not Available 19870804 aspirin medicatio n Not available Not available Not available 12/12/2019 1191 RxNorm Not Available Not Available Not Available 579375 losartan Not available Not available Not available Not available 12/12/2019 48981 RxNorm Not Available Not Available Not Available 065689 estrogens , conjugate d (CARE [facility]) medicatio n Not available Not available Not available 12/12/2019 4099 RxNorm Not Available Not Available Not Available 395863 ciproflox acin medicatio n Not available Not available Not available 12/12/2019 2551 RxNorm Not Available Not Available Not Available 233595 hydrochlo rothiazid e medicatio n Not available Not available Not available 12/12/2019 5487 RxNorm Not Available Not Available Not Available 780851 metoprolo l Not available Not available Not available Not available 12/12/2019 6918 RxNorm Not Available Not Available Not Available 608949 naproxen medicatio n Not available Not available Not available 12/12/2019 7258 RxNorm Not Available Not Available Not Available 927633 clindamyc in Not available Not available Not available Not available 12/12/2019 2582 RxNorm Not Available Not Available Not Available 845504 Substance with sulfonami de structure and antibacte rial mechanism of action (substanc e) medicatio n Not available Not available Not available 11/11/2020 74121 8003 SNOMED Not Available Not Available Not Available 212478 Myrbetriq medicatio n swelling Not available Not available 10/05/2021 55028 92 RxNorm Not Available Not Available Not Available 808515 [employer] Immune medicatio n Not available Not available Not available 04/09/2022 66008 0 UNK Not Available Not Available Not Available 501967 alendrona te sodium medicatio n arthralgi a (joint pain) Not available Not available 08/20/2024201715 2 RxNorm Not Available Not Available Not Available 881531 cephalexi n medicatio n hives Not available Not available 08/20/20242020 2231 RxNorm Not Available Not Available Not Available Medications Name Sig Start Date Stop Date Status Note LastModified by Organization Details LastModified Time compounded medication 1 fingerful topically 3 night/wee k 08/20 completed Not Available Not Available Not Available compounded medication 1 fingerful topically 3 night/wee k 04/28 completed Not Available Not Available Not Available compounded medication 1 fingerful topically 3 night/wee k 2019 active Not Available Not Available Not Avai lable compounded medication 1 fingerful topically 3 night/wee k 08/20 completed Not Available Not Available Not Available Miralax 17 gram oral powder packet Take 1 packet every day by oral route. active Not Available Not Available No t Available buspirone 5 mg tablet TAKE ONE TABLET BY MOUTH THREE TIMES DAILY* 08/20 completed Not Available Not Available Not Available pilocarpine 5 mg tablet TAKE ONE TABLET BY MOUTH THREE TIMES DAILY* 08/20 completed Not Available Not Available Not Available prednisone 10 mg tablet take 1 tablet by mouth once every other day* 08/20 completed Not Available Not Available Not Available doxycycline hyclate 100 mg capsule TAKE 1 CAPSULE BY MOUTH TWICE A DAY FOR 10 DAYS 08/20 completed Not Available Not Available Not Available pilocarpine 1 % eye drops INSTILL 1 DROP INTO AFFECTED EYE(S) BY OPHTHALMI C ROUTE EVERY 12 HOURS 09/14 completed Not Available Not Available Not Available azithromyci n 250 mg tablet TAKE 2 TABLETS BY MOUTH TODAY, THEN TAKE 1 TABLET DAILY FOR 4 DAYS 04/28 completed Not Available Not Available Not Available fosfomycin tromethamin e 3 gram oral packet mix and drink 1 packet by mouth every 3 days As Needed for bladder infection s for 2 doses* 08/20 completed Not Available Not Available Not Available fluconazole 150 mg tablet TAKE 1 TABLET ORALLY AND REPEAT IN 3 DAYS IF SYPMTOMS ARE STILL PRESENT 04/28 completed Not Available Not Available Not Available valacyclovi r 1 gram tablet TAKE ONE TABLET BY MOUTH THREE TIMES DAILY 08/03 completed Not Available Not Available Not Available senna 8.6 mg tablet take 1 tablet by mouth twice a day As Needed for constipat ion* active Not Available Not Available No t Available diltiazem CD 240 mg capsule,ext ended release 24 hr TAKE 1 CAPSULE BY MOUTH ONE TIME DAILY* active Not Available Not Available No t Available famotidine 40 mg tablet TAKE 1 TABLET BY MOUTH ONE TIME DAILY 08/20 completed Not Available Not Available Not Available warfarin 2.5 mg tablet TAKE ^ TABLET BY MOUTH ON TUESDAY AND TUESDAY , THEN 1 TABLET ALL OTHER DAYS* active Not Available Not Available No t Available diphenoxyla te-atropine 2.5 mg-0.025 mg tablet TAKE 1 TABLET BY MOUTH ONE TIME DAILY* active Not Available Not Available No t Available clopidogrel 75 mg tablet TAKE 1 TABLET BY MOUTH ONE TIME DAILY* active Not Available Not Available No t Available valacyclovi r 500 mg tablet 500 MG ORALLY TWICE A DAY FOR 3 DAYS *SEE CHANGE IN DOSE* TO 500MG TWICE DAILY FOR 3 DAYS. 08/20 completed Not Available Not Available Not Available triamcinolo ne acetonide 0.1 % topical cream 08/20 completed Not Available Not Available Not Available diltiazem 120 mg tablet Take 1 tablet 3 times a day by oral route. 08/20 completed Not Available Not Available Not Available lorazepam 0.5 mg tablet TAKE 1/2 TABLET BY MOUTH TWICE DAILY NEEDED 08/20 completed Not Available Not Available Not Available Mapap (acetaminop hen) 500 mg capsule TAKE 1-2 CAPS ORALLY EVERY 6 HOURS NEEDED FOR PAIN, MAX DAILY DOSE: 4000MG PER DAY active Not Available Not Available No t Available benzonatate 100 mg capsule TAKE ONE OR TWO CAPSULES BY MOUTH THREE TIMES DAILY NEEDED 08/20 completed Not Available Not Available Not Available cephalexin 500 mg capsule TAKE 1 CAPSULE BY MOUTH TWICE DAILY 08/03 completed Not Available Not Available Not Available nitrofurant oin macrocrysta l 100 mg capsule TAKE 1 CAPSULE BY MOUTH TWICE DAILY, MUST TAKE WITH MEAL / FOOD* 08/20 completed Not Available Not Available Not Available betamethaso ne dipropionat e 0.05 % topical cream APPLY TOPICALLY TO AFFECTED AREA ONCE DAILY NEEDED 08/20 completed Not Available Not Available Not Available omeprazole 20 mg capsule,del ayed release TAKE 1 CAPSULE BY MOUTH ONE TIME DAILY* 08/20 completed Not Available Not Available Not Available mupirocin 2 % topical ointment APPLY TOPICALLY 3 TIMES A DAY 08/20 completed Not Available Not Available Not Available furosemide 20 mg tablet TAKE ONE TABLET BY MOUTH EVERY MORNING* active Not Available Not Available No t Available Synthroid 112 mcg tablet TAKE 1 TABLET BY MOUTH ONE TIME DAILY* active Not Available Not Available No t Available clobetasol 0.05 % topical ointment APPLY 1GM TWICE WEEKLY As Needed for lichen sclerosis 08/20 completed Not Available Not Available Not Available fluocinonid e 0.05 % topical cream APPLY 1 GRAM TOPICALLY TO RASH ON LEGS DAILY NEEDED 08/20 completed Not Available Not Available Not Available betamethaso ne dipropionat e 0.05 % topical ointment APPLY TOPICALLY TO THE AFFECTED AREA(S) TWICE DAILY FOR 7 DAYS, THEN EVERY OTHER DAY FOR 7 DAYS, THEN 2-3 TIMES PER WEEK. 11/12 completed Not Available Not Available Not Available gentamicin 0.1 % topical ointment APPLY A SMALL AMOUNT TO WOUND ON LEFT LOWER LEG ONCE DAILY* 08/20 completed Not Available Not Available Not Available oxycodone 5 mg tablet TAKE 1/2-1 TAB (2.5 - 5 MG) ORALLY EVERY 4-6 HOURS NEEDED FOR PAIN, MAX 6/ DAY MINIMIZE/ D/C NBA 08/20 completed Not Available Not Available Not Available Restasis 0.05 % eye drops in a dropperette PLACE 1 DROP INTO BOTH EYES EVERY 12 HOURS. 08/20 completed Not Available Not Available Not Available nitrofurant oin monohydrate /macrocryst als 100 mg capsule TAKE ONE CAPSULE BY MOUTH TWICE DAILY FOR 7 DAYS 08/03 completed Not Available Not Available Not Available levothyroxi ne 08/03 completed Not Available Not Available Not Available fluocinolon e 08/20 completed Not Available Not Available Not Available omeprazole [...] mg) under the skin every 6 months* 08/20 completed Not Available Not Available Not Available Probiotic 08/20 completed Not Available Not Available Not Available Theracran 650 mg capsule Take 1 capsule every day by oral route. 08/20 completed Not Available Not Available Not Available Myrbetriq 50 mg tablet,exte nded release 1 tablet po daily 11/12 completed Not Available Not Available Not Available calcium 166.75 mg-vit D3 166.75 unit-vit C-vit K2-minerals capsule Take by oral route. 08/20 completed Not Available Not Available Not Available Restasis MultiDose 0.05 % eye drops INSTILL 1 DROP INTO THE EYE(S) TWICE A DAY 08/20 completed Not Available Not Available Not Available Tiadylt ER 240 mg capsule,ext ended release TAKE 1 CAPSULE BY MOUTH DAILY. active Not Available Not Available No t Available Gemtesa 75 mg tablet take 1 tablet by mouth every day 2024 active Not Available Not Available Not Avai lable BinaxNOW COVID-19 Ag Self Test kit REFER TO MANUFACTU RER INSTRUCTI ONS INCLUED IN PACKAGING 04/28 completed Not Available Not Available Not Available Vitals Date Recorded Body height Body mass index (BMI) Body weight Provider Name and Address Organization Details Last Updated DateTime 04/09/2022 154.94 cm 27.8 kg/m2 09905.08 g Brea Bosch [facility] 04/09/2022 12:13:52 Date Recorded Body height Body mass index (BMI) Body weight Provider Name and Address Organization Details Last Updated DateTime 12/06/2022 154.94 cm 25.5 kg/m2 20026.97 g Brea Bosch [facility] 12/06/2022 10:41:56 Date Recorded Body height Body mass index (BMI) Body weight Provider Name and Address Organization Details Last Updated DateTime 04/28/2023 154.94 cm 25.5 kg/m2 75127.97 g Radhika Mathis [facility] 04/28/2023 11:25:35 Date Recorded Body height Body mass index (BMI) Body weight Provider Name and Address Organization Details Last Updated DateTime 08/20/2024 154.94 cm 25.5 kg/m2 54117.97 g Radhika Mathis [facility] 08/20/2024 11:34:57 Date Recorded Body height Body mass index (BMI) Body weight Provider Name and Address Organization Details Last Updated DateTime 08/20/2024 154.94 cm 22.7 kg/m2 67051.08 g Brea Bosch [facility] 08/20/2024 12:00:03 Social History Question Answer Notes LastModified by Organizat ion Details LastModified Time Tobacco Smoking Status Never Smoker Not Available [facility] 12/13/2019 02:00:45 What Is Your Level Of Alcohol Consumption? None Information not available 09/14/2021 What Is Your Level Of Caffeine Consumption? None 3-4 Cups Decaffeinated Tea Daily [email or web address] Information not available 08/20/2024 Are You Currently Employed? No Information not available 09/14/2021 Race White Information n ot available 12/13/2019 Ethnicity Not /L atino Information not available 09/14/2021 Preferred Language Andorran Information not available 09/14/2021 Recreational Drug Use No Information not available 09/14/2021 Could You Be ? No Information not available 09/14/2021 Marital Status Informati on not available 12/13/2019 What Was The Date Of Your Most Recent Tobacco Screening? 08/20/2024 [email or web address] Information not available 08/20/2024 What Is Your Relationship Status? Information not [...] 0 0 Immunizations Vaccine Type Date Status Note Provider Nam e and Address Organization Details Recorded Time Pneumococcal conjugate PCV 13 8 completed STEPHEN Germain [facility] 04/28/2023 11:25:40 Past Encounters Encounter ID Performer Location Encounter Start Date Encounter Closed Date Diagnosis/Indication Diagnosis SNOMED-CT Code Diagnosis ICD10 Code Diagnosis Note [id number] Charlotte Smith MD [address] [address] 04/15/2020 10:02:52 04/25/2020 12:54:57 Overactive urinary bladder 008360494 N32.81 Urge incon tinence of urine 65266127 N39.41 [id number] Charlotte Smith MD [address] [address] 05/13/2020 10:14:48 05/13/2020 14:22:18 Overactive urinary bladder 834073067 N32.81 Urge incon tinence of urine 27349651 N39.41 History of urinary tract infection 3858745592 107 Z87.440 [id number] Charlotte Smith MD [facility] [address] [address] 11/11/2020 11:46:55 11/11/2020 13:40:18 Overactive urinary bladder 798498277 N32.81 chronic stable Urge incon tinence of urine 48836224 N39.41 chornic stable [id number] Brea Bosch [facility] [address] [place] [address],[address] [place] [id number] 11/26/2020 10:15:12 12/02/2020 15:37:48 Overactive urinary bladder 794056512 N32.81 chronic stable Nocturia 613412624 R35.1 [id number] Charlotte Smith MD [facility] [address] [place] [address],[address] [place] [id number] 08/03/2021 11:31:50 08/03/2021 12:09:22 Overactive urinary bladder 762484005 N32.81 chronic stable Urge incon tinence of urine 50697362 N39.41 chornic worse Nocturia 281110741 R35.1 chronic stable [id number] ELMA Burciaga [facility] [address] [place] [address],[address] [place] [id number] 09/14/2021 10:06:36 09/14/2021 14:16:12 Overactive urinary bladder 436141559 N32.81 chronic stable Urge incon tinence of urine 76556534 N39.41 chronic, improved Nocturia 513890973 R35.1 chronic, improved [id number] Brea CrabtreeBosch [facility] [address] [place] [address],[address] [place] [id number] 09/14/2021 09:30:06 09/14/2021 14:31:59 Overactive urinary bladder 253573621 N32.81 chronic stable [id number] ELMA Burciaga [facility] [address] [place] [address],[address] [place] [id number] 11/12/2021 11:29:59 11/12/2021 12:37:25 Overactive urinary bladder 035085277 N32.81 chronic stable Urge incon tinence of urine 18284098 N39.41 chronic, improved Nocturia 004933521 R35.1 chronic, improved [id number] Brea Bosch [facility] [address] [place] [address],[address] [place] [id number] 04/09/2022 11:43:46 04/09/2022 13:38:20 Overactive urinary bladder 955213925 N32.81 chronic stable [id number] [facility] [address] [place] [address],[address] [place] [id number] 12/06/2022 10:28:13 12/06/2022 11:24:29 Overactive urinary bladder 955203770 N32.81 chronic stable [id number] ELMA Burciaga [facility] [address] [place] [address],[address] [place] [id number] 04/28/2023 11:22:38 04/28/2023 12:04:03 Overactive urinary bladder 159630744 N32.81 chronic stable Urge incon tinence of urine 44733784 N39.41 chronic, improved Nocturia 744190693 R35.1 chronic, improved [id number] ELMA Burciaga [facility] [address] [place] [address],[address] [place] [id number] 0 08/20/2024 11:29:07 08/20/2024 12:13:29 Overactive urinary bladder 092157712 N32.81 chronic stable Urge incon tinence of urine 23880568 N39.41 chronic, improved Nocturia 326479400 R35.1 chronic, improved [id number] [facility] [address] [place] [address],[address] [place] [id number] 0 08/20/2024 11:33:09 08/20/2024 13:53:44 Overactive urinary bladder 952111207 N32.81 chronic stable Health Concerns Section Related Observation LastModified by Organization Detai ls LastModified Time None Recorded Concern Status LastModified by Organization Details LastModified Time None Recorded Advance Directives Directive None Recorded Payers Encounter Date Sequence Insurance Name Policy Number Policy Betancourt Covered Member ID Betancourt Member ID Guarantor Name 04/09/2022 2 [place]ICARE [place]: [employer] Patsy Beltrán [id number] Patsy Beltrán 04/09/2022 2 [facility] [id number] Patsy Beltrán [id number] Patsy Beltrán 12/06/2022 2 [place] [employer] [facility] Patsy Beltrán [id number] Patsy Beltrán 12/06/2022 2 [facility] [id number] Patsy Beltrán [id number] Patsy Beltrán 04/28/2023 2 [place] [employer] [facility] Patsy Beltrán [id number] Patsy Beltrán 04/28/2023 2 [facility] [id number] Patsy Beltrán [id number] Patsy Beltrán 08/20/2024 1 MEDICA - DUAL ELIGIBLE (MEDICARE REPLACEMENT/A DVANTAGE - HMO) [id number] Patsy Beltrán [id number] Patsy Beltrán 08/20/2024 1 MEDICA - DUAL ELIGIBLE (MEDICARE REPLACEMENT/A DVANTAGE - HMO) [id number] Patsy Beltrán [id number] Patsy Beltrán Notes Date Note Type Note Provider Name and Address Organization Details Recorded Time 12/06/2022 text/html Frequent Urinati on {{0 1 [...] Pulse width changed Rate chaanged Resolution changed Breajovita Bosch [facility] 12/06/2022 11:08:58 04/28/2023 text/html 04/28/23:Patient presents to follow up for overactive bladder (OAB).InterStim implant 04/01/[address] Smith[address]Last saw Brea 12/06/22. Feels comfortable changing programs. Has not changed since she saw Brea.Takes Gemtesa prn. Usually will take two day [...] overactive bladder (OAB). Managed with interstim.Patient saw Brea for reprogramming prior to appointment today.Improvement on [...] be almost every hour. ELMA Burciaga [address], [place], [address], [place] [facility] 04/28/2023 11:58:40 08/20/2024 text/html 08/20/24:Patient presents to follow up for overactive bladder (OAB).S/p InterStim implant 04/01/[address] Smith[address]seeing brea after our visit.Patient reports feeling stimulation - not feeling. has turned off the device a few time or procedures in the past year. feels she needs a refresher on use.Programs: has not been changing much, still on program 7.Denies any falls.Bowels: little constipation but bm daily.Taking gemtesa. very happy with this but takes about every 5-10 days due to cost but also feels she does not need daily. She wakes up 2 times a night. She voids every 3 hours during the day. She uses 1 pads per day, just in case most time. 04/28/23:Patient presents to follow up for overactive bladder (OAB).InterStim implant 04/01/[address] Smith.Last saw Brea 12/06/22. Feels comfortable changing programs. Has not changed since she saw Brea.Takes Gemtesa prn. Usually will take two day [...] overactive bladder (OAB). Managed with interstim.Patient saw Brea for reprogramming prior to appointment today.Improvement on [...] to be almost every hour. ELMA Burciaga [address], [place], [address], [place] [facility] 08/20/2024 11:52:49 OBGyn Episode No OBEpisode recorded.
--- OUTSIDE RECORDS SUMMARY | 2024-08-24 12:17 | XMS_ITS | Continuity of Care Document ---
Author Organization [facility] Address [address] [place] [address] Phone Care Team Providers Care Nanofabrication Specialist Name Role Phone Usha Dickinson Unavailable [...] on Encounter [facility], [address], [place], [place], [id number], [place] tel:[phone] No Information [facility]. [facility], [address], [place], [place], [id number] , [place]. [phone] Office/Outpat ient Visit,Est, Mod [facility], [address], [place], [place], [id number], [place] tel:[phone] [facility] Other forms of scoliosis, thoracolumbar regionL2 wedge compression fracture, initial encounter for closed fractureSpondy lolisthesis, lumbar region 0 [facility]. [facility], [address], [place], [place], [id number] , [place]. tel:[phone] Referring Provider: Rakel Arvizu, [employer] [facility] [address] [place], [address]. tel:[phone] Office/Outpat ient Visit,Est, Mod [facility], [address], [facility] [place], [address], [place] tel:[phone] [facility] L2 wedge compression fracture, initial encounter for closed fractureOther forms of scoliosis, thoracolumbar regionSpondylo listhesis, lumbar region 0 Kwame Kerr. [facility], [address], [place], [place], [id number] , . tel:[phone] Referring Provider: Rakel Arvizu [employer] [address] [place], [address]. tel:[phone] Office/Outpat ient Visit,[facility], [facility], [address], [facility] [place], [id number], [place] tel:[phone] [facility] L2 wedge compression fracture, initial encounter for closed fractureOther forms of scoliosis, thoracolumbar regionSpondylo listhesis, lumbar region 0 Kwame Kerr. [facility], [address], [place], [place], [id number] , [place]. tel:[phone] Referring Provider: Rakel Arvizu [employer] [address] [place], [address]. tel:[phone] Family History Family Member Type Diagnosis Age At Onset No Information Payers Payer name Insurance type Covered republican ID Authoralethaa tishannon(s) Medicare MB [id number] [facility] [id number] [facility] [id number] Social History Type Description Quantity Date Captured [...]
--- OUTSIDE RECORDS SUMMARY | 2024-08-24 12:18 | XMS_ITS | Continuity of Care Document ---
Author Organization [place] [facility] Address [address] [place] [address] [address] [place] [address] Care Team Providers Care Engraver Flatware Name Role Phone ALDAIR KEY Primary Care Provider Assessment No assessment recorded. Plan of Treatment Reminders Order Date Submit Date Provider Last Modified By Organization Details Last Modified Time Details Appointments None recorded. Lab None recorded. Referral None recorded. Procedures None recorded. Surgeries None recorded. Imaging None recorded. Medication Orders Gemtesa 75 mg tablet 025 025 [id number], [address], [address], 5 11:48:18 Patient TargetsNo targets recorded. Patient Instructions Encounter Date Encounter Id Patient Instructions Last Modified By Organization Details Last Modified Time 08/20/2024 [id number] Over Active Blad betty (OAB): -Managed with [...] Address Organization Details Recorded Time Chronic cystitis 46455576 Active 2018 N30.20 : Chronic cystitis Not Available [facility] 0 23:40:26 Overactiv e urinary bladder 538724573 Active 2018 N32.81 : Bladder muscle dysfunctio n - overactive Not Available [facility] 0 23:40:26 Benign neoplasti c disease 02331026 Active 2019 Daphne felix, [facility] 0 09:58:09 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 Procedures Surgical History Date Name Laterality Status Provider Name and Address Organization Details Recorded Time 08/20/19 25 Sacral neuromodulation w/o reprogramming completed Brea Bosch [facility] 08/20/2024 13:53:29 08/20/19 25 COMPLEX VISIT completed ELMA Burciaga [address] [place] [address],[address], [address], [facility] 08/20/2024 11:37:25 08/20/19 25 Past Data Reviewed completed ELMA Burciaga [address] [place] [address],[address], [address], [facility] 08/20/2024 11:37:44 08/20/19 25 Bladder Scan completed Radhika Mathis [facility] 08/20/2024 11:44:22 04/28/20 23 Sacral neuromodulation w/o reprogramming completed ELMA Burciaga [address] [place] [address],[facility] [address], [address], [facility] 04/28/2023 11:57:28 04/28/20 23 Bladder Scan completed Radhika Mathis [facility] 04/28/2023 11:36:21 12/07/19 23 Sacral neuromodulation w/o reprogramming completed Brea Bosch [facility] 12/06/2022 11:08:45 04/09/20 22 Sacral Stimulator Reprogramming completed Brea Bosch [facility] 04/09/2022 12:49:34 09/15/19 22 Bladder Scan completed Merry Ocampo [facility] 09/14/2021 10:25:15 09/15/19 22 Sacral neuromodulation w/o reprogramming completed Brea Bosch [facility] 09/14/2021 10:15:12 08/03/19 22 Past Data Reviewed completed Charlotte Smith MD [address] [place] [address],[address], [place], [address], [facility] 08/03/2021 08:29:52 08/03/19 22 Bladder Scan completed Usha Corado [facility] 08/03/2021 11:50:03 11/27/19 21 Sacral Stimulator Reprogramming completed Brea Bosch [facility] 11/27/2020 12:44:01 09/17/19 20 Implant neuroelectrodes completed Not Available [facility] 12/13/2019 18:11:39 11/29/19 19 Insert bladder catheter completed Not Available [facility] 12/13/2019 18:11:39 11/14/19 15 Colonoscopy completed Lucinda Nuñez [facility] 11/11/2020 11:57:08 11/29/19 09 Total hip arthroplasty completed Not Available [facility] 12/13/2019 18:11:39 11/29/19 00 Unlisted procedure breast completed Not Available [facility] 12/13/2019 18:11:39 Appendectomy add-on completed Not Available [facility] 12/13/2019 18:11:39 Imaging Results None recorded. Procedure Notes None recorded. Medical Equipment None Reported. Allergies Allergen ID Allergen Name Allergen Category Reaction Reaction Severity Criticality Documentation Date Start Date Code Code System Note Provider Name and Address Organization Details Recorded Time 19861108 Product containin g nitroimid azole (product) medicatio n Not available Not available Not available 12/12/2019 05760 7004 SNOMED Not Available Not Available Not Available 19861202 sulindac medicatio n Not available Not available Not available 12/12/2019 41950 RxNorm Not Available Not Available Not Available 19870101 Product containin g penicilli n (product) medicatio n itching Not available Not available 12/12/2019 98262 8001 SNOMED Not Available Not Available Not Available 648212 atorvasta tin medicatio n Not available Not available Not available 12/12/2019 02444 RxNorm Not Available Not Available Not Available 191946 tetracycl ine medicatio n Not available Not available Not available 12/12/2019 47057 RxNorm Not Available Not Available Not Available 19870307 alendrona te sodium medicatio n Not available Not available Not available 12/12/201981872 2 RxNorm Not Available Not Available Not Available amoxicill in medicatio n Not available Not available Not available 12/12/2019 723 RxNorm Not Available Not Available Not Available 19870704 oxybutyni n chloride Not available dizziness Not available Not available 12/12/2019 04376 RxNorm fatig ue Not Available Not Available Not Available 512678 aspirin medicatio n Not available Not available Not available 12/12/2019 1191 RxNorm Not Available Not Available Not Available 706682 losartan Not available Not available Not available Not available 12/12/2019 74881 RxNorm Not Available Not Available Not Available 217128 estrogens , conjugate d (FDC) medicatio n Not available Not available Not available 12/12/2019 4099 RxNorm Not Available Not Available Not Available 488679 ciproflox acin medicatio n Not available Not available Not available 12/12/2019 2551 RxNorm Not Available Not Available Not Available 641934 hydrochlo rothiazid e medicatio n Not available Not available Not available 12/12/2019 5487 RxNorm Not Available Not Available Not Available 927140 metoprolo l Not available Not available Not available Not available 12/12/2019 6918 RxNorm Not Available Not Available Not Available 792552 naproxen medicatio n Not available Not available Not available 12/12/2019 7258 RxNorm Not Available Not Available Not Available 368992 clindamyc in Not available Not available Not available Not available 12/12/2019 2582 RxNorm Not Available Not Available Not Available 751403 Substance with sulfonami de structure and antibacte rial mechanism of action (substanc e) medicatio n Not available Not available Not available 11/11/2020 8003 SNOMED Not Available Not Available Not Available 984726 Myrbetriq medicatio n swelling Not available Not available 10/05/2021 60935 92 RxNorm Not Available Not Available Not Available 798586 [employer] Immune medicatio n Not available Not available Not available 04/09/2022 83597 0 UNK Not Available Not Available Not Available 356804 alendrona te sodium medicatio n arthralgi a (joint pain) Not available Not available 08/20/20242017 60591 2 RxNorm Not Available Not Available Not Available 825685 cephalexi n medicatio n hives Not available [...] Updated DateTime 08/20/2024 154.94 cm 25.5 kg/m2 78315.97 g Radhika Mathis [place] [facility] 08/20/2024 11:34:57 Date Recorded Body height Body mass index (BMI) Body weight Provider Name and Address Organization Details Last Updated DateTime 08/20/2024 154.94 cm 22.7 kg/m2 60295.08 g Brea Danitza [facility] 08/20/2024 12:00:03 Social History Question Answer Notes LastModified by Organizat ion Details LastModified Time Tobacco Smoking Status Never Smoker Not Available [facility] 12/13/2019 02:00:45 What Is Your Level Of Alcohol Consumption? None Information not available 09/14/2021 What Is Your Level Of Caffeine Consumption? None 3-4 Cups Decaffeinated Tea Daily [email or web address] Information not available 08/20/2024 Are You Currently Employed? No Information not available 09/14/2021 Race White Information n ot available 12/13/2019 Ethnicity Not /L atino Information not available 09/14/2021 Preferred Language Malagasy Information not available 09/14/2021 Recreational Drug Use No Information not available 09/14/2021 Could You Be ? No Information not available 09/14/2021 Marital Status Informati on not available 12/13/2019 What Was The Date Of Your Most Recent Tobacco Screening? 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, improved Nocturia 942903563 R35.1 chronic, improved [id number] Brea Bosch [facility] [address] [facility],[address] [place] [address] 08/20/2024 11:33:09 08/20/2024 13:53:44 Overactive urinary bladder 889768147 N32.81 chronic stable Health Concerns Section Related Observation LastModified by Organization Detai ls LastModified Time None Recorded Concern Status LastModified by Organization Details LastModified Time None Recorded Payers Encounter Date Sequence Insurance Name Policy Number Policy Betancourt Covered Member ID Betancourt Member ID Guarantor Name 08/20/2024 1 MEDICA - DUAL ELIGIBLE (MEDICARE REPLACEMENT/ ADVANTAGE - HMO) [id number] Patsy Beltrán [id number] Patsy Beltrán Notes Date Note Type Note Provider Name and Address Organization Details Recorded Time 08/20/2024 text/html 08/20/24:Patient presents to follow up [...] be almost every hour. ELMA Burciaga [address] [place] [address],[address], [place], [address], [facility] 08/20/2024 11:52:49 OBGyn Episode No OBEpisode recorded.
--- OUTSIDE RECORDS SUMMARY | 2024-08-24 12:18 | XMS_ITS | Clinical Summary ---
Author Organization [facility] Address [address] [place] [address] Care Team Providers Care Apartment Leasing Agent Name Role Phone Kd Restrepo MD Unavailable [phone] Jose Napier PANettieC Primary Care Provider [phone] Charlotte Smith MD Unavailable [phone] Charlotte Anderson MD Unavailable [phone] Allergies Active Allergy Reactions Criticality Noted Date Comments Amoxicillin 01/19/2007 Aspirin Rash,Itching 01/20/2006 Atorvastatin Myalgia 12/27/2014 Blood-Group Specific Substance Other - Describe In Comment Field High 09/01/2016 Patient has Anti-D. Blood product orders may be delayed. Draw one red top and two purple top tubes for all Type and Screen/Type and Crossmatch orders. P-Tdkf-Nlvvxxhwb-Propol-Eld erb *Unknown 02/28/2024 Ciprofloxacin Rash 05/31/2012 Clindamycin Angioedema 06/28/2014 Sulindac Anaphylaxis High 04/30/2014 Estrogens, Conjugated *Unknown 01/25/2024 Nitroimidazoles Rash 05/31/2012 Alendronate Sodium Arthralgia 11/30/2017 Hydrochlorothiazide Rash 05/04/2010 Cephalexin Hives 09/22/2020 Losartan Rash 11/08/2014 Nitrofurantoin Monohyd/M-Cryst Flushing,Headache 04/18/2020 Mirabegron Edema Low 01/25/2024 Loss of bladder control Naproxen GI Bleeding 10/11/2006 Oxybutynin Dizziness 03/30/2021 Oxybutynin Chloride Agitation,Anxiety, Dizziness,Headache ,Nausea Only 01/19/2019 Penicillins Rash,Itching 01/20/2006 Conjugated Estrogens Rash 04/11/2015 Sulfa (Sulfonamide Antibiotics) Itching 01/20/2006 Tetracycline *Unknown 10/11/2006 Tolterodine Headache High 01/25/2024 Metoprolol Rash 10/10/2014 Cholecalciferol (Vitamin D3) Diarrhea 01/06/2018 Medications FOLIC ACID 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 90 tablet 3 06/18/20 20 Active Additional Information Patient taking differently:112 mcg Oral BEFORE BREAKFAST,takes Tuesday through Tuesday, not on sundays., Reported on 08/22/2024 predniSONE (DELTASONE) 10 mg tabletIndications :Mixed connective [...] TIMES DAILY 270 Tablet 12/12/19 21 Active lidocaine, anorectal, 5% topical 5 % cream once daily if needed. baclor/jesu/mita/ lido Active cycloSPORINE (Restasis) 0.05 % ophthalmic emulsionIndicatio ns:Dry eye syndrome, unspecified laterality Place 1 Drop into both eyes every 12 hours. 60 Each 3 05/25/20 23 Active dilTIAZem CD (CARDIZEM CD) 240 mg extended release 24 hr capsuleIndication s:Essential hypertension Take 1 Capsule (240 mg) by mouth once daily. 90 Capsule 3 06/08/20 24 Active furosemide (LASIX) 20 mg tabletIndications :SOB (shortness of breath),Nonrheuma tic mitral valve regurgitation Take 1 Tablet (20 mg) by mouth once daily in the morning. 90 Tablet 3 06/08/20 24 Active clopidogreL (PLAVIX) 75 mg tabletIndications :Peripheral arterial disease Take 1 Tablet (75 mg) by mouth once daily. 90 Tablet 3 12/06/20 24 Active vibegron (Gemtesa) 75 mg tablet Take 1 Tablet (75 mg) by mouth once daily. 06/08/20 24 Active Active Problems Problem Noted Date Diagnosed Date Atherosclerosis of hoh ar teries of left leg with ulceration [...] Date Anticoagulation monitoring, INR range 2-3 [Z79.01]; [facility] 2.5-3.0 12/06/2016 1 Pessary maintenance 02/25/2016 09/28/19 20 Anticoagulation monitoring, goal range 2.0-2.6 09/19/2013 01/09/2018 Abnormal stress test 11/17/2010 011 Routine general medical exam ination at a health care facility 07/12/2009 09/28/2019 Overview (12/06/2012): Normal CT angiogram 11/2010 Hip pain 05/06/2008 07/09/2009 Onychomycosis 05/06/2008 08/27/2008 HX OF VENOUS THROMBOSIS AND EMBOLISM 11/09/2006 12/06/2012 Bilateral pulmonary embolism 10/11/2006 11/18/2017 AFTERCARE, LONG-TERM USE, CT DICATIONS NEC-PLAQUENIL 10/22/2003 Encounters Date Type Department Care Team Description 08/22/2024 11:00 AM [employer] Office Visit [facility] [address] [place] [address] Follow Up ( s/p LLE angio) 08/22/2024 8:09 AM [employer] - 08/22/2024 11:59 PM [employer] Hospital Encounter [facility] [address] [place] [address] Marcus Carrillo PA 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) 08/22/2024 Travel 08/18/2024 Travel 06/22/2024 Telephone [facility] [address] [place] [address] Adelaide Eid MD Results 06/21/2024 8:44 AM [employer] - 06/21/2024 11:01 AM [employer] R IN[employer] Hospital Encounter [facility] [address] [place] [address] Adelaide Eid MD Olson, Jeffrey John, MD Nonrheumatic mitral valve regurgitation Discharge Disposition: Home Self Care 06/21/2024 Travel 06/18/2024 Telephone [facility] [address] [facility] [address] [place] [address] Adelaide Eid MD Pre Procedure 06/08/2024 10:30 AM [employer] Office Visit [facility] [address] [place] [address] Adelaide Eid MD Follow Up 06/07/2024 Travel from Last 3 Months Immunizations Name Administration Dates Next Due AMB INFLUENZA IIV3 (AGE 65+ YRS) PF (Flu Clinic Only) 03/23/2017 AMB Influenza, IIV3 (Age >=3 years) Preserve Free (Flu Clinic Only) 04/08/2009 AMB Influenza, IIV3 (Age >=3 years)(Flu Clinic Only) 04/06/2013,04/16/2011,04/24/2008 COVID-19 vaccine ([place] NTReNew Power 30mcg/0.3mL) PF, MDV 09/02/2020,08/12/2020 Influenza A (H1N1), [...] Paying Living Expenses Not on file 06/25/2021 Interpersonal Safety Answer Date Record ed Are you being hit, kicked, p ushed or yelled at (see row info)? No 06/21/2024 Interpersonal Safety Abuse 12 - 18 Not on file 06/21/2024 Interpersonal Safety Ambulatory Vulnerability No t on file 06/21/2024 Comments No Sex and Gender Information Value Date Recorded Sex Assigned at Not on file Legal Sex Female 5:25 AM [employer]IGH S[employer] IN[employer] Gender Identity Not on file Sexual Orientation Not on file Occupation Industry Job Start Date Job End Date retired Not on file Not on file Not on file Obstetrics History Para Term [...] Sign Reading Time Taken Comments Blood Pressure 186/81 08/22/2024 11:03 AM [employer]IGH S[employer] R INSTRUCTOR right arm normal high Pulse 66 08/22/2024 11:03 AM [employer] IN[employer]CTOR Temperature 36.4 C (97.6 F) 06/21/2024 9:38 AM [employer] IN[employer]CTOR Respiratory Rate 14 06/21/2024 10:3 1 AM [employer] S[employer] R IN[employer]CTOR Oxygen Saturation 100% 08/22/2024 11: 03 AM [employer] R IN[employer]CTOR Inhaled Oxygen Concentration - - Weight 57.6 kg (126 lb 15.8 oz) 08/22/2024 11:01 AM [employer] R IN[employer] Height 149.9 cm (4' 11.02) 08/22/2024 11:01 AM [employer] R IN[employer]CTOR Body Mass Index 25.63 08/22/2024 11:01 AM [employer] R IN[employer]CTOR Plan of Treatment Upcoming Encounters Date Type Department Care Team (Late st Contact Info) Description 08/30/2024 10:00 AM [employer]IGH [employer] HV[employer] R INSTRUCTOR Office Visit [facility] [address] [place], [place] [id number] [place] [address] [facility] [place], [place] [id number] Health Maintenance Due Date Last Done Comments RSV vaccine for adults or (1 - 1-dose 75+ series) 2015 Depression screening for age 12+ 06/18/2021 06/18/2020, 06/18/2020, 06/18/2020, Additional history exists Medicare Wellness for age 65+ 06/19/2021, 06/18/2019, 06/28/2018, Additional history exists Influenza for age 65+ 03/04/2024 03/20/2020 , 04/03/2019, 03/02/2018, Additional history exists BMI (ht and wt on same day) for age 18+ 08/22/2025 08/22/2024, 04/09/2024, 12/05/2023, Additional history exists Tetanus booster 01/28/2030 01/29/2020, 08/2010, 02/02/2004, Additional history exists Tdap Completed 11/02/2010 Pneumococcal series for age 50+ Completed 07/19/2014, 10/15/2005, 04/11/1997 Zoster (shingles) series for age 50+ Completed 09/27/2018, 07/06/2018 DEXA/DXA scan for age 65+ Completed 2018, 01/13/2016, 12/18/2010 COVID-19 vaccine series Completed 04/26/20, 06/13/2023, 04/30/2022, Additional history exists Medical Devices Implanted Type Area Manufacturing Engineer Assembly Device Identifier Shelf Expiration Date Model / Serial / Lot Lead Kit 4.32mm Spacing 28cm Length Interstim - [id number] Implanted:Qty: 1 on 04/01/2020 by Charlotte Smith MD at [facility] N/A: Sacrum [employer] Pain Therapy 09/30/2021 [id number] / / [id number] Stimulator 7.7mm 14cc Interstim Ii - [id number] Implanted:Qty: 1 on 04/01/2020 by Charlotte Smith MD at [facility] N/A: Sacrum [employer] Pain Therapy 03/31/2021 [id number] / [id number] / Description:PIN [id number] Procedures Procedure Name Priority Date/Time Associated Diagnosis Comments US ARTERIAL LOWER EXTREMITY BILATERAL Routine 08/22/2024 10:16 AM [employer] 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) US ANKLE BRACHIAL INDEX BILATERAL Routine 08/22/2024 10:15 AM [employer] R IN[employer]CTOR 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) ECHO VICTOR M WO CONTRAST W COLOR W LTD DOPPLER Routine 06/21/2024 11:15 AM [employer] R IN[employer]CTOR Nonrheumatic mitral valve regurgitation XR DXA BONE DENSITY 2 SITES AXIAL Routine 07/02/2019 11:48 AM [employer]IGH [employer] R INSTRUCTOR Osteopenia of multiple sites from Last 3 Months or Most Recently Relevant to Health Maintenance Results * US ARTERIAL LOWER EXTREMITY BILATERAL (08/22/2024 10:16 AM HIGH [employer] HV[employer] R INSTRUCTOR) Anatomical Region Laterality Modality LEGS, LEG L, LEG R Ultrasound 08/22/2024 8:16 AM HIGH S[employer] HV[employer] R INSTRUCTOR Narrative 08/22/2024 1:05 PM [employer]IGH [employer] HV[employer] R INSTRUCTOR VASCULAR ULTRASOUND REPORT RODERICK HEATON : 1940 Study Date: 08/22/2024 8:16:13 AM Age: 84 years Tech: LMS/EMS Gender: F Referring MD: MARCUS CARRILLO Site: [facility] Study performed: Lower extremity duplex US. Indication for study: Non-healing wound in LE, Follow-up known PAD TECHNIQUE: Lower/upper extremity arteries were examined per [...] requirements. IMPRESSION: 1. No evidence of inflow disease involving bilateral lower extremities. 2. 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 3. Retrograde flow in the right anterior tibial artery suggesting proximal stenosis or occlusion. 4. No significant stenosis involving the left popliteal or anterior tibial artery. Multiphasic Doppler waveforms are present in the anterior tibial artery. 5. Abnormal dampened and monophasic Doppler waveform of the left posterior tibial artery suggesting proximal stenosis or occlusion. COMPARISON: Compared to prior study 11/23/2023, post left popliteal and anterior tibial intervention. FINDINGS: Retrograde flow in the right anterior tibial artery. There is 75-99% stenosis in the right distal superficial femoral artery. There is 75-99% stenosis in the right dorsalis pedis artery. There is 50-74% stenosis in the right tibioperoneal trunk. +--------+ + +--------+-----+ RIGHT Velocity cm/s PRE Stenosis Ratio Velocity cm/s Phasicity +--------+ + +--------+-----+ EIA DST 91 +--------+ + +--------+-----+ MARKETING ROTATION ASSOCIATE DST 98 +--------+ + +--------+-----+ PFA 133 +--------+ + +--------+-----+ SFA PRX 109 +--------+ + +--------+-----+ SFA MID 56 +--------+ + +--------+-----+ SFA DST 397 51 75-99% 7.8 +--------+ + +--------+-----+ COLLIN PRX 89 +--------+ + +--------+-----+ COLLIN DST 41 +--------+ + +--------+-----+ TPT 160 41 50-74% 3.9 +--------+ + +--------+-----+ BILL SORTER DST 55 +--------+ + +--------+-----+ LAXMI PRX 46 +--------+ + +--------+-----+ LAXMI DST -21 +--------+ + +--------+-----+ DPA 115 75-99% 4.6 +--------+ + +--------+-----+ +--------+ + LEFT Velocity cm/s +--------+ + EIA DST 110 +--------+ + MARKETING ROTATION ASSOCIATE DST 104 +--------+ + PFA 76 +--------+ + SFA PRX 93 +--------+ + SFA MID 92 +--------+ + SFA DST 74 +--------+ + COLLIN PRX 80 +--------+ + COLLIN DST 46 +--------+ + TPT 72 +--------+ + BILL SORTER DST 17 +--------+ + LAXMI PRX 65 +--------+ + LAXMI DST 88 +--------+ + DPA 29 +--------+ + Criteria: Stenosis V. Ratio Mild <50% <2.0 Moderate 50-74% > or = 2.0 Severe 75-99% > or = 4.0 Occluded 100% no detectable flow Wang Dela Cruz MD. Electronically signed on 08/22/2024 1:05:35 PM This study was performed and interpreted by a service accredited by the Intersocietal Accreditation Commission (IAC/Vascular), [email or web address] Report generated by Embedly. Final Procedure Note Wang Dela Cruz MD - 08/22/2024 VASCULAR ULTRASOUND REPORT RODERICK HEATON : 1940 Study Date: 08/22/2024 8:16:13 AM Age: 84 years Tech: LMS/EMS Gender: F Referring MD: MARCUS CARRILLO Site: [facility] Study performed: Lower extremity duplex US. Indication for study: Non-healing wound in LE, Follow-up known PAD TECHNIQUE: Lower/upper extremity arteries were examined per [...] requirements. IMPRESSION: 1. No evidence of inflow disease involving bilateral lower extremities. 2. Severe (75-99%) stenosis of the right distal superficial femoralartery. 3. Retrograde flow in the right anterior tibial artery suggestingproximal stenosis or occlusion. 4. No significant stenosis involving the left popliteal or anteriortibial artery. Multiphasic Doppler waveforms are present in the anteriortibial artery. 5. Abnormal dampened and monophasic Doppler waveform of the leftposterior tibial artery suggesting proximal stenosis or occlusion. COMPARISON: Compared to prior study 11/23/2023, post left popliteal and anteriortibial intervention. FINDINGS: Retrograde flow in the right anterior tibial artery. There is 75-99% stenosis in the right distal superficial femoral artery. There is 75-99% stenosis in the right dorsalis pedis artery. There is 50-74% stenosis in the right tibioperoneal trunk. +--------+ + +--------+-----+ RIGHT Velocity cm/s PRE Stenosis Ratio Velocity cm/s Phasicity +--------+ + +--------+-----+ EIA DST 91 +--------+ + +--------+-----+ MARKETING ROTATION ASSOCIATE DST 98 +--------+ + +--------+-----+ PFA 133 +--------+ + +--------+-----+ SFA PRX 109 +--------+ + +--------+-----+ SFA MID 56 +--------+ + +--------+-----+ SFA DST 397 51 75-99% 7.8 +--------+ + +--------+-----+ COLLIN PRX 89 +--------+ + +--------+-----+ COLLIN DST 41 +--------+ + +--------+-----+ TPT 160 41 50-74% 3.9 +--------+ + +--------+-----+ BILL SORTER DST 55 +--------+ + +--------+-----+ LAXMI PRX 46 +--------+ + +--------+-----+ LAXMI DST -21 +--------+ + +--------+-----+ DPA 115 75-99% 4.6 +--------+ + +--------+-----+ +--------+ + LEFT Velocity cm/s +--------+ + EIA DST 110 +--------+ + MARKETING ROTATION ASSOCIATE DST 104 +--------+ + PFA 76 +--------+ + SFA PRX 93 +--------+ + SFA MID 92 +--------+ + SFA DST 74 +--------+ + COLLIN PRX 80 +--------+ + COLLIN DST 46 +--------+ + TPT 72 +--------+ + BILL SORTER DST 17 +--------+ + LAXMI PRX 65 +--------+ + LAXMI DST 88 +--------+ + DPA 29 +--------+ + Criteria: Stenosis V. Ratio Mild <50% <2.0 Moderate 50-74% > or = 2.0 Severe 75-99% > or = 4.0 Occluded 100% no detectable flow Wang Dela Cruz MD. Electronically signed on 08/22/2024 1:05:35 PM This study was performed and interpreted by a service accredited by theIntersocietal Accreditation Commission (IAC/Vascular),[email or web address] Report generated by Embedly. Final us Marcus WILLS US Final Resu lt * US ANKLE BRACHIAL INDEX BILATERAL (08/22/2024 10:15 AM [employer] HV[employer] R INSTRUCTOR) Anatomical Region Laterality Modality ANKLES, ANKLE L, ANKLE R Ultraso und 08/22/2024 8:31 AM [employer] S[employer]OL HVAC R INSTRUCTOR Narrative 08/22/2024 12:32 PM [employer]OL HVAC R INSTRUCTOR VASCULAR ULTRASOUND REPORT RODERICK HEATON : 1940 Study Date: 08/22/2024 8:31:24 AM Age: 84 years Tech: LMS Gender: F Referring MD: MARCUS CARRILLO Site: [facility] Study performed: Lower extremity resting MINOR, (bilateral). Indication for study: Non-healing wound in LE, Follow-up known PAD TECHNIQUE: Lower/upper extremity arteries were examined per [...] index is normal on the right at 1.18 and is normal on the left at 1.11. 2. Toe-brachial index is normal on the right at 0.60 and toe-brachial index is normal on the left at 0.71. 3. Normal and symmetric bilateral metatarsal pulse volume recordings. 4. Bilateral digit pressures suggest adequate perfusion for wound healing. COMPARISON: Compared to prior study 11/23/2023, increase ABIs left side post intervention. FINDINGS: Right toe/brachial index indicates normal range. Left toe/brachial index indicates normal range. Pressures +-----+ +--------+ +-----+ RIGHT (mmHg) LEFT (mmHg) +-----+ +--------+ +-----+ Index 192 Brachial 190 Index +-----+ +--------+ +-----+ 1.18 226 BILL SORTER 162 0.84 +-----+ +--------+ +-----+ 1.14 218 DPA 214 1.11 +-----+ +--------+ +-----+ 0.60 116 Digit 1 136 0.71 +-----+ +--------+ +-----+ Wang Dela Cruz MD. Electronically signed on 08/22/2024 12:32:38 PM This study was performed and interpreted by a service accredited by the Intersocietal Accreditation Commission (IAC/Vascular), [email or web address] Report generated by Embedly. Final Procedure Note Wang Dela Cruz MD - 08/22/2024 VASCULAR ULTRASOUND REPORT RODERICK HEATON : 1940 Study Date: 08/22/2024 8:31:24 AM Age: 84 years Tech: LMS Gender: F Referring MD: MARCUS CARRILLO Site: [facility] Study performed: Lower extremity resting MINOR, (bilateral). Indication for study: Non-healing wound in LE, Follow-up known PAD TECHNIQUE: Lower/upper extremity arteries were examined per [...] index is normal on the right at 1.18 and isnormal on the left at 1.11. 2. Toe-brachial index is normal on the right at 0.60 and toe-brachialindex is normal on the left at 0.71. 3. Normal and symmetric bilateral metatarsal pulse volume recordings. 4. Bilateral digit pressures suggest adequate perfusion for woundhealing. COMPARISON: Compared to prior study 11/23/2023, increase ABIs left side postintervention. FINDINGS: Right toe/brachial index indicates normal range. Left toe/brachial index indicates normal range. Pressures +-----+ +--------+ +-----+ RIGHT (mmHg) LEFT (mmHg) +-----+ +--------+ +-----+ Index 192 Brachial 190 Index +-----+ +--------+ +-----+ 1.18 226 BILL SORTER 162 0.84 +-----+ +--------+ +-----+ 1.14 218 DPA 214 1.11 +-----+ +--------+ +-----+ 0.60 116 Digit 1 136 0.71 +-----+ +--------+ +-----+ Wang Dela Cruz MD. Electronically signed on 08/22/2024 12:32:38 PM This study was performed and interpreted by a service accredited by theIntersocietal Accreditation Commission (IAC/Vascular),[email or web address] Report generated by Embedly. Final us Marcus WILLS US Final Resu lt * ECHO VICTOR M WO CONTRAST W COLOR W LTD DOPPLER (06/21/2024 11:15 AM HIGH [employer]CHOOL HVAC R INSTRUCTOR) EJECTION FRACTION 55-60% PROSOLV Anatomical Region Laterality Modality Ultrasound, Ultr asound, Other 06/21/2024 9:54 AM [employer]IGH S[employer]OL HVAC R INSTRUCTOR Narrative 06/21/2024 12:23 PM [employer] [place] [address] Main: [email or web address] Transesophageal Echo Report RODERICK HEATON Aysha ID: [id number] Age: 83 : 1940 Ordering Provider: ADELAIDE EID Exam Date: 06/21/2024 09:54 Gender: F Facing Slitter: RES Height: 59 in BSA: 1.54 m BP: 177 / 80 Weight: 131 lbs BMI: 26.5 kg/m HR: 74 Location: Outpatient Rhythm: Regular Procedure Components: 2D imaging, Color Doppler, Limited Spectral Doppler, 3-D imaging and reconstruction with independent workstation review Indications: Nonrheumatic mitral valve regurgitation Technical Quality: Adequate Contrast: None Final Conclusion Previous Study: 01/11/2023 1. Mild-moderate central mitral regurgitation, due to bileaflet prolapse, posterior more than anterior. Most of the leak is in the A2-P2 region. Mitral valve effective regurgitant orifice (PISA) is 0.13 cm . 2. Estimated left ventricular ejection fraction is 55-60%. 3. No regional wall motion abnormalities. 4. Normal right ventricular chamber size. Normal right ventricular systolic function. 5. Normal left atrial appendage without evidence of thrombus. Estimated EF: 55-60% Level of Sedation: Moderate Physician sedation service time (mins): 19 Procedure Indications, goals, risks, benefits, and alternatives pertaining to the procedure were discussed with the patient and informed consent was obtained See procedural record for anesthesia details. Prior to the performance of procedure, time out was called to accurately identify the patient and procedure. 3-D imaging of cardiac structures was performed. Complications There were no apparent complications. Medications Prior to the procedure the patient was alert and oriented. Versed 3 mg and Fentanyl 50the patient's posterior pharynx was anesthetized with viscous Lidocaine and 4% Lidocaine spray. mcg were administered by the nurse with continuous monitoring of vital signs under my direct supervision. Total moderate sedation face to face monitoring time: 19 minutes. FINDINGS Left Ventricle Normal left ventricular chamber size. Normal left ventricular systolic function. Estimated left ventricular ejection fraction is 55-60%. No regional wall motion abnormalities. Right Ventricle Normal right ventricular chamber size. Normal right ventricular systolic function. Left Atrium Mild left atrial enlargement. Left Atrial Normal left atrial appendage without evidence of thrombus. Appendage Right Atrium Mild right atrial enlargement. Atrial Septum No evidence of inter-atrial shunt by color flow Doppler. Aortic Valve Trileaflet aortic valve. Mildly thickened aortic valve. No aortic valve regurgitation. Mitral Valve Mild-moderate central mitral regurgitation, due to bileaflet prolapse, posterior more than anterior. Most of the leak is in the A2-P2 region. Mitral valve effective regurgitant orifice (PISA) is 0.13 cm . No blunting or reversal of pulmonary vein flow. Mitral valve diastolic mean gradient is 4 mmHg (at a HR of 69 bpm). Tricuspid Valve Mild tricuspid valve regurgitation. Pulmonic Valve Mild pulmonary valve regurgitation. Ascending Aorta Aortic sinus of Valsalva is normal in size (3.1 cm, ZScore = - 0.94). Normal indexed ascending aorta dimension (3.1 cm, 2 cm/m ). Aortic Arch and Moderate immobile atherosclerosis of the descending thoracic aorta. Descending Aorta Pericardium No pericardial effusion. MEASUREMENTS (Male / Female) Normal Values 2D MEASUREMENTS AND LV FUNCTION Sinuses of Valsalva Diameter(d) 3.1 cm Ascending Aorta Diameter(s) 3.1 cm Ascending Aorta Index 2.01 cm/m MITRAL VALVE MV Peak Gradient 8.53 mmHg MV Mean Gradient 4 mmHg MV Velocity Time Integral 40.8 cm MR Peak Velocity 711 cm/sec MR Velocity Time Integral 208 cm MR ERO PISA 0.135 cm Aortic Root ZScore: -0.94 David Montana MD [facility] Accredited Site (Electronically Signed) Final Date: 21 June 2024 12:22 Amended: 21 June 2024 12:25 ICD-10 Codes: I34.0 Procedure Note David Montana MD - 06/21/2024 [place] [address] Main: [email or web address] Transesophageal Echo Report RODERICK HEATON Namrussell ID: [id number] Age: 83 : 1940 Ordering Provider:ADELAIDE EID Exam Date: 06/21/2024 09:54 Gender: F Facing Slitter: RES Height: 59 in BSA: 1.54 m BP: 177 / 80 Weight: 131 lbs BMI: 26.5 kg/m HR: 74 Location: Outpatient Rhythm: Regular Procedure Components: 2D imaging, Color Doppler, Limited SpectralDoppler, 3-D imaging and reconstruction with independent workstation review Indications: Nonrheumatic mitral valve regurgitation Technical Quality: Adequate Contrast: None Final Conclusion Previous Study: 01/11/2023 1. Mild-moderate central mitral regurgitation, due to bileaflet prolapse,posterior more than anterior. Most of the leak is in the A2-P2 region. Mitral valve effective regurgitant orifice (PISA) is 0.13 cm . 2. Estimated left ventricular ejection fraction is 55-60%. 3. No regional wall motion abnormalities. 4. Normal right ventricular chamber size. Normal right ventricularsystolic function. 5. Normal left atrial appendage without evidence of thrombus. Estimated EF: 55-60% Level of Sedation: Moderate Physician sedation service time (mins): 19 Procedure Indications, goals, risks, benefits, and alternativespertaining to the procedure were discussed with the patient and informed consent was obtained See procedural record for anesthesiadetails. Prior to the performance of procedure, time out was called to accurately identify the patient andprocedure. 3-D imaging of cardiac structures was performed. Complications There were no apparent complications. Medications Prior to the procedure the patient was alert and oriented.Versed 3 mg and Fentanyl 50the patient's posterior pharynx was anesthetized with viscous Lidocaine and 4% Lidocaine spray.mcg were administered by the nurse with continuous monitoring of vital signs under my direct supervision.Total moderate sedation face to face monitoring time: 19 minutes. FINDINGS Left Ventricle Normal left ventricular chamber size. Normal leftventricular systolic function. Estimated left ventricular ejection fraction is 55-60%. No regional wall motion abnormalities. Right Ventricle Normal right ventricular chamber size. Normal rightventricular systolic function. Left Atrium Mild left atrial enlargement. Left Atrial Normal left atrial appendage without evidence of thrombus. Appendage Right Atrium Mild right atrial enlargement. Atrial Septum No evidence of inter-atrial shunt by color flow Doppler. Aortic Valve Trileaflet aortic valve. Mildly thickened aortic valve. Noaortic valve regurgitation. Mitral Valve Mild-moderate central mitral regurgitation, due to bileafletprolapse, posterior more than anterior. Most of the leak is in the A2-P2 region. Mitral valve effective regurgitant orifice(PISA) is 0.13 cm . No blunting or reversal of pulmonary vein flow. Mitral valve diastolic mean gradient is 4 mmHg(at a HR of 69 bpm). Tricuspid Valve Mild tricuspid valve regurgitation. Pulmonic Valve Mild pulmonary valve regurgitation. Ascending Aorta Aortic sinus of Valsalva is normal in size (3.1 cm,ZScore = - 0.94). Normal indexed ascending aorta dimension (3.1 cm, 2 cm/m ). Aortic Arch and Moderate immobile atherosclerosis of the descendingthoracic aorta. Descending Aorta Pericardium No pericardial effusion. MEASUREMENTS (Male / Female) Normal Values 2D MEASUREMENTS AND LV FUNCTION Sinuses of Valsalva Diameter(d) 3.1 cm Ascending Aorta Diameter(s) 3.1 cm Ascending Aorta Index 2.01 cm/m MITRAL VALVE MV Peak Gradient 8.53 mmHg MV Mean Gradient 4 mmHg MV Velocity Time Integral 40.8 cm MR Peak Velocity 711 cm/sec MR Velocity Time Integral 208 cm MR ERO PISA 0.135 cm Aortic Root ZScore: -0.94 David Montana MD [facility] Accredited Site (Electronically Signed) Final Date: 21 June 2024 12:22 Amended: 21 June 2024 12:25 ICD-10 Codes: I34.0 Adelaide Eid MD ECHO ORD Edited R esult - Final * (ABNORMAL) XR DXA BONE DENSITY 2 SITES AXIAL (07/02/2019 11:48 AM [employer] R INSTRUCTOR) Anatomical Region Laterality Modality Spine, HIPS, HIPL, HIPR Other Narrative 07/06/2019 11:01 AM [employer] R INSTRUCTOR Please see scanned document for results of this study. 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
--- OUTSIDE RECORDS SUMMARY | 2024-08-24 12:18 | XMS_ITS | Continuity of Care Document ---
Author Organization [facility] Address [address] [place] [address] Phone Care Team Providers Care Loan Consultant Name Role Phone Helder Medina MD Unavailable [...] Antibodies Dna Antibody, Single Strand Dna Antibody, Sioux Nuclear Antigen Antibodies Rheumatoid Factor, IGM Rheumatoid Factor, IGG, IGA Advance Directives Directive Yes / No Effective Date File Name No Information Encounters Encounter Description Practice Location Reason(s) For Visit Diagnoses Date Provider Providers Copied on Encounter Office/Outpa tient Visit, Est [facility], [address], [place], [address], [place] tel:[phone] [facility], Sjogren syndrome w/ inflammatory arthritis Apr-2 3 4 Lebedoff Helder. [address], [address], [place], [place], [facility], [place]. tel:[phone] Referring Provider: Helder Jain, [address], [place], [address]. tel:[phone] [facility], [address], [place], [address], [place] tel:[phone] [facility], No Information Oct- 0 4 Lebedoff Helder. [address], [address], [place], [address], [place]. tel:[phone] Referring Provider: Helder Jain, [address], [place], [place], [facility]. tel:[phone] Office/Outpa tient Visit, Est [facility], [address], [place], [address], [place] tel:[phone] [facility], Sjogren syndrome w/ inflammatory arthritisPain in left foot Oct- 0 4 Lebedoff Helder. [address], [address], [place], [address], [place]. tel:[phone] Referring Provider: Helder Jain, [address], [place], [place], [facility]. tel:[phone] Office/Outpa tient Visit, Est [facility], [address], [place], [address], [place] tel:[phone] [facility], Sjogren syndrome w/ inflammatory arthritisPrim mauri osteoarthriti s, right hand Apr-0 4 3 Lebedoff Helder. [address], [address], [place], [address], [place]. tel:[phone] Referring Provider: Helder Jain, [address], [place], [address]. tel:[phone] Office/Outpa tient Visit, Est [facility], [address], [place], [address], [place] tel:[phone] [facility], Sicca syndrome, unspecifiedWe akness 3 Lebedoff Helder. [address], [address], [place], [address], [place]. tel:[phone] Referring Provider: Helder Jain, [address], [place], [address]. tel:[phone] Office/Outpa tient Visit, Est [facility], [address], [place], [address], [place] tel:[phone] [facility], Sicca syndrome, unspecifiedPa in in left shoulder 2 Lebedoff Helder. [address], [address], [place], [address], [place]. tel:[phone] Referring Provider: Helder Jain, [address], [place], [address]. tel:[phone] Office/Outpa tient Visit, Est [facility], [address], [place], [address], [place] tel:[phone] [facility], Sicca syndrome, unspecifiedDy spnea 2 Lebedoff Helder. [address], [address], [place], [address], [place]. tel:[phone] Referring Provider: Helder Jain, [address], [place], [address]. tel:[phone] Office/Outpa tient Visit, Est [facility], [address], [place], [address], [place] tel:[phone] [facility], Sicca syndrome, unspecifiedOt her retirement (current) drug therapyPrimar y OA of right handDyspnea 1 Adam Pendleton. [address], [address], [place], [address], [place]. tel:[phone] Referring Provider: Helder Jain, [address], [place], [address]. tel:[phone] Office/Outpa tient Visit, New [facility], [address], [place], [address], [place] tel:[phone] [facility], Sicca syndrome, unspecifiedPa in in rt ankleOther oil heaterman (current) drug therapy 1 Adam Pendleton. [address], [address], [place], [address], [place]. tel:[phone] Referring Provider: Helder Jain, [address], [place], [address]. tel:[phone] [facility], [address], [place], [address], [place] tel:[phone] [facility] No Information 1 Mo Sullivan. [facility] [address] [facility] [address], [place], [address], [place]. tel:[phone] Family History Family Member Type Diagnosis Age At Onset No Information Immunizations Vaccine Date Status Comments COVID-19 Moderna administered Source: Ot er Provider COVID-19 Pfizer administered Note: 1 ; Source: Other Provider Payers Payer name Insurance type Covered green party ID Authoriza tion(s) [employer] Adv [id number] MB [id number] Social History Type Description Quantity Date Captured Comments Alcohol Use Details Caffeine Use Details Tobacco Use Status Current non-smoker Smoking Status Never smoker She gabi es in [place] with her . She is retired. 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 This appears to be well controlled currently. Ideally, this would not have been treated with oil heaterman prednisone, but as she has been on [...]
[2024-08-24 12:23] VITALS: BP 191/76; PULSE 82; RESP 16; TEMP 36.4; O2SAT 98; BMI 24.2
--- NOTE | 2024-08-24 12:44 | ED.GENADULT ---
HPI - General Adult General Chief complaint: Epistaxis/Nosebleed Stated complaint: Nosebleed, sent from Urgent Care Time Seen by Provider: 08/24/24 12:21 Source: patient Mode of arrival: ambulatory Limitations: no limitations History of Present Illness HPI narrative: 84 Year old female presenting today with a nosebleed that started approximately 1 hour ago. Patient went to the urgent care was instructed to come to the ER for further management. A nose clamp was placed the while she was in the urgent care. By the time she arrives to the ER because she is uncertain of whether not her nose is still bleeding. Patient denies feeling dizzy, lightheaded, short of breath. She is on Coumadin, last INR was 3 days ago and it was therapeutic. Patient did have a nosebleed 2 days ago that did stop with pressure at home. Both times from the left nostril. Related Data Home Medications ?Medication ?Instructions ?Recorded ?Confirmed Lactobacillus acidophilus 1 10 mg PO DAILY 04/15/22 07/12/24 billion cell capsule betamethasone, augmented 0.05 % 1 applic topical DAILY PRN 04/15/22 07/12/24 topical cream multivitamin 1 tab PO DAILY 04/15/22 07/12/24 clobetasol 0.05 % topical ointment 1 g topical 2XW PRN lichen 09/10/22 07/12/24 sclerosis vibegron 75 mg tablet (Gemtesa) 75 mg PO DAILY 03/24/23 07/12/24 diltiazem HCl 240 mg 240 mg PO DAILY 06/02/23 07/12/24 capsule,extended release 24 hr levothyroxine 112 mcg tablet 112 mcg PO .COMPLEX 11/03/23 07/12/24 omeprazole 40 mg capsule,delayed 40 mg PO DAILY 01/18/24 07/12/24 release clopidogrel 75 mg tablet 75 mg PO DAILY 05/10/24 07/12/24 Previous Rx's ?Medication ?Instructions ?Recorded calcium carbonate 600 mg PO DAILY #90 tabs 01/06/22 lorazepam 0.5 mg tablet 0.25 - 0.5 mg (0.5 - 1 x 0.5 mg) 01/06/22 PO DAILY PRN anxiety #5 tabs acetaminophen 500 mg capsule 500 - 1,000 mg (1 - 2 x 500 mg) PO 09/09/22 Q6H PRN pain #100 caps triamcinolone acetonide 0.1 % 1 applic topical BID PRN rash #80 05/05/23 topical cream grams pilocarpine HCl 5 mg tablet 5 mg PO TID #270 tabs 01/03/24 gabapentin 6%/ketamine See Rx Instructions topical .four 02/02/24 8%/liodcaine 2.5% liposomal cream time daily PRN pain #60 grams with baclofen 2% furosemide 20 mg tablet 20 mg PO BID PRN edema #180 tabs 04/02/24 fosfomycin tromethamine 3 gram 1 packet PO Q3D PRN bladder 05/10/24 oral packet infections 2 doses #2 ea denosumab 60 mg/mL subcutaneous 60 mg subcut [id number] #1 mL 06/06/24 syringe (Prolia) prednisone 10 mg tablet 10 mg PO Q OTHER DAY #45 tabs 06/11/24 warfarin 2.5 mg tablet 1.25 - 2.5 mg PO DAILY #90 tabs 06/12/24 sennosides 8.6 mg tablet (Senna 8.6 mg PO BID PRN constipation 07/08/24 Lax) #180 tabs fosfomycin tromethamine 3 gram 1 packet PO Q3D PRN bladder 07/09/24 oral packet infections 2 doses #2 ea nitrofurantoin macrocrystal 100 mg 100 mg PO BID #14 caps 07/09/24 capsule Allergies Allergy/AdvReac Type Severity Reaction Status Date / Time sulindac Allergy Severe Difficulty Verified 07/12/24 13:10 Breathing tetracycline Allergy Intermediate Rash Verified 07/12/24 13:10 mirabegron Allergy Mild lost Verified 07/12/24 13:10 control of bladder amoxicillin Allergy Unknown Verified 07/12/24 13:10 aspirin Allergy Unknown Verified 07/12/24 13:10 atorvastatin Allergy Unknown Verified 07/12/24 13:10 cholecalciferol (vitamin D3) Allergy Unknown Verified 07/12/24 13:10 (From Vitamin D3) ciprofloxacin Allergy Unknown Verified 07/12/24 13:10 clindamycin Allergy Unknown Verified 07/12/24 13:10 hydrochlorothiazide Allergy Unknown Verified 07/12/24 13:10 losartan Allergy Unknown Verified 07/12/24 13:10 metoprolol Allergy Unknown Verified 07/12/24 13:10 naproxen Allergy Unknown Verified 07/12/24 13:10 Nitroimidazoles Allergy Unknown Verified 07/12/24 13:10 alendronate sodium Allergy Verified 07/12/24 13:10 estrogens, conjugated Allergy Verified 07/12/24 13:10 oxybutynin Allergy Verified 07/12/24 13:10 Penicillins Allergy Verified 07/12/24 13:10 Sulfa (Sulfonamide Allergy Rash Verified 07/12/24 13:10 Antibiotics) Quinolones AdvReac Intermediate bad Verified 07/12/24 13:10 arthritis flair tolterodine AdvReac Intermediate Headache Verified 07/12/24 13:10 cephalexin AdvReac Unknown Hives Verified 07/12/24 13:10 furosemide AdvReac Unknown Verified 07/12/24 13:10 Review of Systems Status of ROS: Reports: 6 or more systems reviewed and unremarkable except as noted in History and below [facility] Medical History History of vertebral compression fracture ?Z87.81 - Personal history of (healed) traumatic fracture (ICD-10) History of pulmonary embolism ?Z86.711 - Personal history of pulmonary embolism (ICD-10) 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 (ICD-10) Hypoxia ?R09.02 - Hypoxemia (ICD-10) Cellulitis ?L03.90 - Cellulitis, unspecified (ICD-10) Mitral valve insufficiency ?I34.0 - Nonrheumatic mitral (valve) insufficiency (ICD-10) Midline cystocele (09/01/16) ?N81.11 - Cystocele, midline (ICD-10) nursing home current use of systemic steroids ?Z79.52 - ocean transportation intermediary (current) use of systemic steroids (ICD-10) Diverticular disease ?K57.90 - Diverticulosis of intestine, part unspecified, without perforation or abscess without bleeding (ICD-10) Surgical History 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) ?Z96.612 - Presence of left artificial shoulder joint (ICD-10) History of bladder surgery (~2020) ?Z98.890 - Other specified postprocedural states (ICD-10) 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) ?Z96.641 - Presence of right artificial hip joint (ICD-10) History of partial surgical removal of colon (08/23/02) ?Z90.49 - Acquired absence of other specified parts of digestive tract (ICD-10) History of lumpectomy of right breast (1999) ?Z98.890 - Other specified postprocedural states (ICD-10) History of colonoscopy with polypectomy (03/2019) ?Z98.890 - Other specified postprocedural states (ICD-10) ?Z86.010 - Personal history of colonic polyps (ICD-10) History of carpal tunnel release of both wrists (~1989) ?Z98.890 - Other specified postprocedural states (ICD-10) History of bladder surgery (09/17/19) ?Z98.890 - Other specified postprocedural states (ICD-10) History of appendectomy ?Z90.49 - Acquired absence of other specified parts of digestive tract (ICD-10) Family History Mother Cancer Heart failure Father Colon cancer Social History Narrative: [place] her . Her has some dementia. He is currently home alone. Her son, Bahman, lives nearby. 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 Code status is full. does not use illicit drugs no history of alcohol use nonsmoker What is your current living situation?: I presently have a place to live Problems where you live: no known problems Problems where you live details: N/A In the past 12 months, utilities in danger of being shut off: no In past 12 months, lack of transportation kept you from medical appts, meetings, work, or getting things needed for daily living: no In the past 12 mos, have been you worried that your food would run out before you had money to buy more?: never true In the past 12 mos, the food you bought just didn't last and you didn't have money to buy more?: never true Highest level of school completed/degree received: high school graduate Smoking Status: Never smoker Do you use any of these nicotine containing products: None How often do you have a drink containing alcohol: monthly or less Alcohol type: wine How many standard drinks containing alcohol do you have on a typical day: 1 or 2 How often do you have six or more drinks on one occasion: Never AUDIT-C Alcohol total score: 1 Non-prescribed substance use: denies use Caffeine: Yes How often does anyone, including family, friends and others, physically hurt you: never How often does anyone, including family, friends and others, insult or talk down to you: never How often does anyone, including family, friends and others, threaten you with harm: never How often does anyone, including family, friends and others, scream or curse at you: never service: No Exam Narrative: Exam Narrative: Well-nourished well-developed patient in no acute distress. Alert and oriented. Answers questions appropriately. Mood and affect are appropriate. Thoughts are goal oriented and rational. No tangential or magical thinking noted. Patient speaks in full sentences without needing to catch her breath. HEENT: Normocephalic atraumatic. Pupils are equally round reactive to light. Extraocular muscles are intact. Conjunctivae are moist without any icterus noted. Moist mucous membranes. Posterior pharynx is normal. She has a couple specks of dry blood on the soft palate and on the posterior pharynx. Patient does not appear pale. Nose clamp is removed. She has no active bleeding. She has irritation of the left nasal septum. No bleeding vessels visualized. Skin: Well perfused without any obvious rashes. Const: Vital Signs, click to edit/add: Vital Signs - 24 hr 08/24/24 12:23 Temperature 97.5 F L Pulse Rate [Right Radial] 82 Respiratory Rate 16 Blood Pressure [Ri ght Forearm] 191/76 H Pulse Oximetry 98 Oxygen Delivery Me thod Room Air Course Course ED Course: Applied Afrin soaked cotton ball to the left nare. Patient had no active bleeding while she was here. Vital Signs Vital signs: Initial Vital Signs Temperature 97.5 F L 08/24/24 12:23 Temperature Source Temporal Artery Scan 08/24/24 12:23 Pulse Rate 82 08/24/24 12:23 Pulse Rhythm Regular 08/24/24 12:23 Respiratory Rate 16 08/24/24 12:23 Blood Pressure 191/76 H 08/24/24 12:23 Blood Pressure Mean 114 H 08/24/24 12:23 Pulse Oximetry 98 08/24/24 12:23 Oxygen Delivery Method Room Air 08/24/24 12:23 Vital Signs Temperature 97.5 F L 08/24/24 12:23 Pulse Rate 82 08/24/24 12:23 Respiratory Rate 16 08/24/24 12:23 Blood Pressure 191/76 H 08/24/24 12:23 Pulse Oximetry 98 08/24/24 12:23 Oxygen Delivery Method Room Air 08/24/24 12:23 Temperature 97.5 F L 08/24/24 12:23 Pulse Rate 82 08/24/24 12:23 Respiratory Rate 16 08/24/24 12:23 Blood Pressure 191/76 H 08/24/24 12:23 Pulse Oximetry 98 08/24/24 12:23 Oxygen Delivery Method Room Air 08/24/24 12:23 Medical Decision Making MDM Narrative Medical decision making narrative: 84-year-old female with epistaxis x2 in the last 3 days. We discussed repeating nasal clamp in Afrin if needed. We discussed the small amount of Vaseline to the nasal septum. Discharge Plan Discharge Clinical Impression: Epistaxis, recurrent Patient Disposition: Home, Self-Care Condition: Stable Additional Instructions: If nose starts to bleed again, apply nasal clamp for 20 minutes followed by nasal spray as directed. You can also soak a cotton ball if the bleeding has slowed down and insert that into the nostril, leave for 10 minutes. If bleeding does not stop, return to the ER. Recommend putting a very small amount of Vaseline and very lightly coat the inside of the nose to help prevent further bleeding. Do this 2 or 3 times per day. Avoid blowing your nose. Prescriptions: No Action calcium carbonate 600 mg calcium (1,500 mg) tablet 600 mg PO DAILY Qty: 90 4RF lorazepam 0.5 mg tablet 0.25 - 0.5 mg PO DAILY PRN (Reason: anxiety) Qty: 5 0RF Rx Instructions: 5 tablets must last one year levothyroxine 112 mcg tablet 112 mcg PO .COMPLEX Patient Comments: SKIP TUESDAY Rx Instructions: 112 mcg orally x 6 days/week; multivitamin Tablet 1 tab PO DAILY Lactobacillus acidophilus 1 billion cell capsule 10 mg PO DAILY betamethasone, augmented 0.05 % cream 1 applic topical DAILY PRN diltiazem HCl 240 mg capsule,extended release 24hr 240 mg PO DAILY Gemtesa 75 mg tablet 75 mg PO DAILY clopidogrel 75 mg tablet 75 mg PO DAILY fosfomycin tromethamine 3 gram packet 1 packet PO Q3D PRN (Reason: bladder infections) Qty: 2 6RF fosfomycin tromethamine 3 gram packet 1 packet PO Q3D PRN (Reason: bladder infections) Qty: 2 6RF acetaminophen 500 mg capsule 500 - 1,000 mg PO Q6H MDD 4000mg per day PRN (Reason: pain) Qty: 100 0RF clobetasol 0.05 % ointment 1 g topical 2XW PRN (Reason: lichen sclerosis) omeprazole 40 mg capsule,delayed release(DR/EC) 40 mg PO DAILY triamcinolone acetonide 0.1 % cream 1 applic topical BID PRN (Reason: rash) Qty: 80 1RF pilocarpine HCl 5 mg tablet 5 mg PO TID Qty: 270 4RF gabapentin 6%/ketamine 8%/liodcaine 2.5% liposomal cream with baclofen 2% cream See Rx Instructions topical .four time daily PRN (Reason: pain) Qty: 60 0RF Rx Instructions: ONE APPLICATION topically FOUR TIME DAILY PRN; hand faxed rx to [facility] [phone] 60 grams with 1 refill sent to scanning furosemide 20 mg tablet 20 mg PO BID PRN (Reason: edema) Qty: 180 0RF Prolia 60 mg/mL syringe 60 mg subcut [id number] Qty: 1 0RF prednisone 10 mg tablet 10 mg PO Q OTHER DAY Qty: 45 3RF warfarin 2.5 mg tablet 1.25 - 2.5 mg PO DAILY Qty: 90 0RF Protocol: Dose Management Condition: Tuesday Dose/Route: 2.5 mg Instruction: 1 x 2.5 mg tablet Condition: Tuesday Dose/Route: 2.5 mg Instruction: 1 x 2.5 mg tablet Condition: Tuesday Dose/Route: 2.5 mg Instruction: 1 x 2.5 mg tablet Condition: Tuesday Dose/Route: 2.5 mg Instruction: 1 x 2.5 mg tablet Condition: Dose/Route: 2.5 mg Instruction: 1 x 2.5 mg tablet Condition: Tuesday Dose/Route: 2.5 mg Instruction: 1 x 2.5 mg tablet Condition: Tuesday Dose/Route: 2.5 mg Instruction: 1 x 2.5 mg tablet Protocol Text: Adjustment Start Date: Tuesday08/20/24 INR Value: 2.7 INR Date: 08/20/24 Recheck Date: 08/27/24 Rx Instructions: Take 1.25 mg on Tuesday/Tuesday and 2.5 mg ROW sennosides [Senna Lax] 8.6 mg tablet 8.6 mg PO BID PRN (Reason: constipation) Qty: 180 1RF nitrofurantoin macrocrystal 100 mg capsule 100 mg PO BID Qty: 14 0RF Rx Instructions: must administer with a meal/food Follow Up/Referrals: Jose Napier PA-C [Primary Care Provider] - Stand Alone Forms: [facility] Info Instructions
--- OUTSIDE RECORDS SUMMARY | 2024-08-24 12:55 | XMS_ITS | Continuity of Care Document ---
Author Organization [facility] Address [address] [place] [address] Phone Care Team Providers Care Global Project Manager Name Role Phone Usha Dickinson Unavailable [...] on Encounter [facility], [address], [place], [place], [id number], [place] tel:[phone] No Information [facility]. [facility], [address], [place], [place], [id number] , [place]. [phone] Office/Outpat ient Visit,Est, Mod [facility], [address], [place], [place], [id number], [place] tel:[phone] [facility] Other forms of scoliosis, thoracolumbar regionL2 wedge compression fracture, initial encounter for closed fractureSpondy lolisthesis, lumbar region 0 [facility]. [facility], [address], [place], [place], [id number] , [place]. tel:[phone] Referring Provider: Rakel Arvizu, [facility] [address] [place], [address]. tel:[phone] Office/Outpat ient Visit,Est, Mod [facility], [address], [facility] [place] [place], [id number], [place] tel:[phone] [facility] L2 wedge compression fracture, initial encounter for closed fractureOther forms of scoliosis, thoracolumbar regionSpondylo listhesis, lumbar region 0 Kwame Kerr. [facility], [address], [place], [place], [address] , . tel:[phone] Referring Provider: Rakel Arvizu [facility] [address] [place], [address]. tel:[phone] Office/Outpat ient Visit,[facility], [facility], [address], [facility] [place], [address], [place] tel:[phone] [facility] L2 wedge compression fracture, initial encounter for closed fractureOther forms of scoliosis, thoracolumbar regionSpondylo listhesis, lumbar region 0 Kwame Kerr. [facility], [address], [place], [place], [address] , [place]. tel:[phone] Referring Provider: Rakel Arvizu [facility] [address] [place], [address]. tel:[phone] Family History Family Member Type Diagnosis Age At Onset No Information Payers Payer name Insurance type Covered constitution party ID Authoralethaa tishannon(s) Medicare MB [id number] [facility] [id number] [facility] [id number] Social History Type Description Quantity Date Captured [...]
--- OUTSIDE RECORDS SUMMARY | 2024-08-24 12:56 | XMS_ITS | Continuity of Care Document ---
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 Name Role Phone Helder Medina MD Unavailable [...] Antibodies Dna Antibody, Single Strand Dna Antibody, [place] Nuclear Antigen Antibodies Rheumatoid Factor, IGM Rheumatoid Factor, IGG, IGA Advance Directives Directive Yes / No Effective Date File Name No Information Encounters Encounter Description Practice Location Reason(s) For Visit Diagnoses Date Provider Providers Copied on Encounter Office/Outpa tient Visit, Est [facility], [address], [place], [address], [place] tel:[phone] [facility], Sjogren syndrome w/ inflammatory arthritis Apr-2 3 4 [facility] Helder. [address], [place], [place], [facility], [place]. tel:[phone] Referring Provider: Helder Jain, [address], [place], [address]. tel:[phone] [facility], [address], [place], [address], [place] tel:[phone] [facility], No Information Oct- 0 4 [place] Helder. [address], [place], [address], [place]. tel:[phone] Referring Provider: Helder Jain, [address], [place], [place], [facility]. tel:[phone] Office/Outpa tient Visit, Est [facility], [address], [place], [address], [place] tel:[phone] [facility], Sjogren syndrome w/ inflammatory arthritisPain in left foot Oct- 0 4 [place] Helder. [address], [place], [address], [place]. tel:[phone] Referring Provider: Helder Jain, [address], [place], [place], [facility]. tel:[phone] Office/Outpa tient Visit, Est [facility], [address], [place], [address], [place] tel:[phone] [facility], Sjogren syndrome w/ inflammatory arthritisPrim mauri osteoarthriti s, right hand Apr-0 4 3 [place] Helder. [address], [place], [address], [place]. tel:[phone] Referring Provider: Helder Jain, [address], [place], [address]. tel:[phone] Office/Outpa tient Visit, Est [facility], [address], [place], [address], [place] tel:[phone] [facility], Sicca syndrome, unspecifiedWe akness 3 [place] Helder. [address], [place], [address], [place]. tel:[phone] Referring Provider: Helder Jain, [address], [place], [address]. tel:[phone] Office/Outpa tient Visit, Est [facility], [address], [place], [address], [place] tel:[phone] [facility], Sicca syndrome, unspecifiedPa in in left shoulder 2 [place] Helder. [address], [place], [address], [place]. tel:[phone] Referring Provider: Helder Jain, [address], [place], [address]. tel:[phone] Office/Outpa tient Visit, Est [facility], [address], [place], [address], [place] tel:[phone] [facility], Sicca syndrome, unspecifiedDy spnea 2 [place] Helder. [address], [place], [address], [place]. tel:[phone] Referring Provider: Helder Jain, [address], [place], [address]. tel:[phone] Office/Outpa tient Visit, Est [facility], [address], [place], [address], [place] tel:[phone] [facility], Sicca syndrome, unspecifiedOt her fci (current) drug therapyPrimar y OA of right handDyspnea 1 Adam Pendleton. [address], [place], [address], [place]. tel:[phone] Referring Provider: Helder Jain, [address], [place], [address]. tel:[phone] Office/Outpa tient Visit, New [facility], [address], [place], [address], [place] tel:[phone] [facility], Sicca syndrome, unspecifiedPa in in rt ankleOther thread grinder tool (current) drug therapy 1 Adam Pendleton. [address], [place], [address], [place]. tel:[phone] Referring Provider: Helder Jain, [address], [place], [address]. tel:[phone] [facility], [address], [place], [address], [place] tel:[phone] [facility] No Information 1 Mo Sullivan. [facility] [address] [facility] [address], [place], [address], [place]. tel:[phone] Family History Family Member Type Diagnosis Age At Onset No Information Immunizations Vaccine Date Status Comments COVID-19 Moderna administered Source: Ot er Provider COVID-19 Pfizer administered Note: 1 ; Source: Other Provider Payers Payer name Insurance type Covered constitution party ID Authoriza tion(s) Med[employer] Medicare Adv [id number] MB [id number] Social History Type Description Quantity Date Captured Comments Alcohol Use Details Caffeine Use Details Tobacco Use Status Current non-smoker Smoking Status Never smoker She gabi es in [place] with her . She is retired. She [...] Order Fo ot X-ray; Complete (3+ views) (87717), Sent on: Sent History Of Present Illness [...] diagnosis of Sjogren's syndrome manifested as + TINA/SSA/ORDINARY SEAMAN, 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 This appears to be well controlled currently. Ideally, this would not have been treated with thread grinder tool prednisone, but as she has been on [...]
--- OUTSIDE RECORDS SUMMARY | 2024-08-24 12:56 | XMS_ITS | Continuity of Care Document ---
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 Plan of Treatment [...] By Organization Details Last Modified Time 08/20/2024 [id number] Test each progra m for at least 2 weeks, adjusting amplitude as needed. May remain on a program as long as it is effective. Return as needed for reprogramming. 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 [email or web address] Not available 08/20/2024 12:11:01 Reason for Referral None Reported. Problems Name Problem SNOMED Code Status Onset Date Resolution Date Notes Provider Name and Address Organization Details Recorded Time Chronic cystitis 34778443 Active 2018 N30.20 : Chronic cystitis Not Available [facility] 0 23:40:26 Overactiv e urinary bladder 901377315 Active 2018 N32.81 : Bladder muscle dysfunctio n - overactive Not Available [facility] 0 23:40:26 Benign neoplasti c disease 46069010 Active 2019 [facility] 0 09:58:09 Tear film insuffici ency 54511243 Active 2019 STEPHEN Hinton [facility] 0 09:58:21 Gastroeso phageal reflux disease 199672979 Active 2019 Daphne felix, [facility] 0 09:58:28 Hyperlipi demia 45235579 Active 2019 Daphne felix, [facility] 0 09:58:36 Heart disease 44837373 Active 2022 Radhika Mathis elvira, [facility] 3 11:27:33 Problem Notes None recorded. Procedures Surgical History Date Name Laterality Status Provider Name and Address Organization Details Recorded Time 08/20/19 25 Sacral neuromodulation w/o reprogramming completed Brea Bosch [facility] 08/20/2024 13:53:29 08/20/19 25 COMPLEX VISIT completed ELMA Burciaga [address] [place] [address],[address], [place], [address], [facility] 08/20/2024 11:37:25 08/20/19 25 Past Data Reviewed completed ELMA Burciaga [address] [place] [address],[address], [place], [address], [facility] 08/20/2024 11:37:44 08/20/19 25 Bladder Scan completed Radhika Mathis [facility] 08/20/2024 11:44:22 04/28/20 23 Sacral neuromodulation w/o reprogramming completed ELMA Burciaga [address] [place] [address],[address], [place], [address], [facility] 04/28/2023 11:57:28 04/28/20 23 Bladder Scan completed Radhika Mathis [facility] 04/28/2023 11:36:21 12/07/19 23 Sacral neuromodulation w/o reprogramming completed Brea Bosch [facility] 12/06/2022 11:08:45 04/09/20 22 Sacral Stimulator Reprogramming completed Brea Bosch [facility] 04/09/2022 12:49:34 09/15/19 22 Bladder Scan completed Merry Ocampo [facility] 09/14/2021 10:25:15 09/15/19 22 Sacral neuromodulation w/o reprogramming completed Brea Bosch [facility] 09/14/2021 10:15:12 08/03/19 22 Past Data Reviewed completed Charlotte Smith MD [address] [facility],[address], [place], [address], [facility] 08/03/2021 08:29:52 08/03/19 22 Bladder Scan completed Usha Corado [facility] 08/03/2021 11:50:03 11/27/19 21 Sacral Stimulator Reprogramming completed Brea Bosch [facility] 11/27/2020 12:44:01 09/17/19 20 Implant neuroelectrodes completed Not Available [facility] 12/13/2019 18:11:39 11/29/19 19 Insert bladder catheter completed Not Available [facility] 12/13/2019 18:11:39 11/14/19 15 Colonoscopy completed Lucinda Nuñez [facility] 11/11/2020 11:57:08 11/29/19 09 Total hip arthroplasty completed Not Available [facility] 12/13/2019 18:11:39 11/29/19 00 Unlisted procedure breast completed Not Available [facility] 12/13/2019 18:11:39 Appendectomy add-on completed Not Available [facility] 12/13/2019 18:11:39 Imaging Results None recorded. Procedure Notes None recorded. Medical Equipment None Reported. Allergies Allergen ID Allergen Name Allergen Category Reaction Reaction Severity Criticality Documentation Date Start Date Code Code System Note Provider Name and Address Organization Details Recorded Time 19861108 Product containin g nitroimid azole (product) medicatio n Not available Not available Not available 12/12/2019 77178 7004 SNOMED Not Available Not Available Not Available 19861202 sulindac medicatio n Not available Not available Not available 12/12/2019 54614 RxNorm Not Available Not Available Not Available 19870101 Product containin g penicilli n (product) medicatio n itching Not available Not available 12/12/2019 91949 8001 SNOMED Not Available Not Available Not Available 19870109 atorvasta tin medicatio n Not available Not available Not available 12/12/2019 72086 RxNorm Not Available Not Available Not Available 871265 tetracycl ine medicatio n Not available Not available Not available 12/12/2019 29000 RxNorm Not Available Not Available Not Available 819746 alendrona te sodium medicatio n Not available Not available Not available 12/12/201964692 2 RxNorm Not Available Not Available Not Available amoxicill in medicatio n Not available Not available Not available 12/12/2019 723 RxNorm Not Available Not Available Not Available 19870704 oxybutyni n chloride Not available dizziness Not available Not available 12/12/2019 81824 RxNorm fatig ue Not Available Not Available Not Available 969557 aspirin medicatio n Not available Not available Not available 12/12/2019 1191 RxNorm Not Available Not Available Not Available 747356 losartan Not available Not available Not available Not available 12/12/2019 64186 RxNorm Not Available Not Available Not Available 855311 estrogens , conjugate d (ALF) medicatio n Not available Not available Not available 12/12/2019 4099 RxNorm Not Available Not Available Not Available 451471 ciproflox acin medicatio n Not available Not available Not available 12/12/2019 2551 RxNorm Not Available Not Available Not Available 593775 hydrochlo rothiazid e medicatio n Not available Not available Not available 12/12/2019 5487 RxNorm Not Available Not Available Not Available 599248 metoprolo l Not available Not available Not available Not available 12/12/2019 6918 RxNorm Not Available Not Available Not Available 222565 naproxen medicatio n Not available Not available Not available 12/12/2019 7258 RxNorm Not Available Not Available Not Available 693409 clindamyc in Not available Not available Not available Not available 12/12/2019 2582 RxNorm Not Available Not Available Not Available 066817 Substance with sulfonami de structure and antibacte rial mechanism of action (substanc e) medicatio n Not available Not available Not available 11/11/2020 19987 8003 SNOMED Not Available Not Available Not Available 539524 Myrbetriq medicatio n swelling Not available Not available 10/05/2021 05810 92 RxNorm Not Available Not Available Not Available 966592 [place] [facility] Immune medicatio n Not available Not available Not available 04/09/2022 51312 0 UNK Not Available Not Available Not Available 444664 alendrona te sodium medicatio n arthralgi a (joint pain) Not available Not available 08/20/2024201715 2 RxNorm Not Available Not Available Not Available 471095 cephalexi n medicatio n hives Not available [...] 2024 active Not Available Not Available Not Connie Dial COVID-19 Ag Self Test kit REFER TO MANUFACTU RER INSTRUCTI ONS INCLUED IN PACKAGING 04/28 completed Not Available Not Available Not Available Vitals Date Recorded Body height Body mass index (BMI) Body weight Provider Name and Address Organization Details Last Updated DateTime 08/20/2024 154.94 cm 25.5 kg/m2 52509.97 g Radhika Mathis [facility] 08/20/2024 11:34:57 Date Recorded Body height Body mass index (BMI) Body weight Provider Name and Address Organization Details Last Updated DateTime 08/20/2024 154.94 cm 22.7 kg/m2 86058.08 g Brea Bosch [facility] 08/20/2024 12:00:03 Social History Question Answer Notes LastModified by Organizat ion Details LastModified Time Tobacco Smoking Status Never Smoker Not Available [facility] 12/13/2019 02:00:45 What Is Your Level Of Alcohol Consumption? None Information not available 09/14/2021 What Is Your Level Of Caffeine Consumption? None 3-4 Cups Decaffeinated Tea Daily [email or web address] Information not available 08/20/2024 Are You Currently Employed? No Information not available 09/14/2021 Race White Information n ot available 12/13/2019 Ethnicity Not /L atino Information not available 09/14/2021 Preferred Language Croatian Information not available 09/14/2021 Recreational Drug Use No Information not available 09/14/2021 Could You Be ? No Information not available 09/14/2021 Marital Status Informati on not available 12/13/2019 What Was The Date Of Your Most Recent Tobacco Screening? 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, improved Nocturia 047158128 R35.1 chronic, improved [id number] Brea Bosch [facility] [address] [place] [address],[address] [place] [phone] 08/20/2024 11:33:09 08/20/2024 13:53:44 Overactive urinary bladder 269094640 N32.81 chronic stable Health Concerns Section Related Observation LastModified by Organization Detai ls LastModified Time None Recorded Concern Status LastModified by Organization Details LastModified Time None Recorded Payers Encounter Date Sequence Insurance Name Policy Number Policy Betancourt Covered Member ID Betancourt Member ID Guarantor Name 08/20/2024 1 MEDICA - DUAL ELIGIBLE (MEDICARE REPLACEMENT/ ADVANTAGE - HMO) [id number] Patsy Beltrán [id number] Patsy Beltrán Notes Date Note Type Note [...] to be almost every hour. ELMA Burciaga [address] [place] [address],[address], [place], [address], [facility] 08/20/2024 11:52:49 OBGyn Episode No OBEpisode recorded.
--- OUTSIDE RECORDS SUMMARY | 2024-08-24 12:56 | XMS_ITS | Clinical Summary ---
Author Organization [facility] Address [address] [place] [address] Care Team Providers Care Greens Or Grounds Superintendent Name Role Phone Kd Restrepo MD Unavailable [phone] Jose Napier PANettieC Primary Care Provider [phone] Charlotte Smith MD Unavailable [phone] Charlotte Anderson MD Unavailable [phone] Allergies Active Allergy Reactions Criticality Noted Date Comments Amoxicillin 01/19/2007 Aspirin Rash,Itching 01/20/2006 Atorvastatin Myalgia 12/27/2014 Blood-Group Specific Substance Other - Describe In Comment Field High 09/01/2016 Patient has Anti-D. Blood product orders may be delayed. Draw one red top and two purple top tubes for all Type and Screen/Type and Crossmatch orders. 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 05/04/2024 AMD (age-related macular degeneration), bilatera l 02/18/2022 Mitral valve insufficiency 01/25/2020 Mitral valve prolapse 01/25/2020 SOB (shortness of breath) 01/25/2020 Fatigue 01/25/2020 [facility] current use of systemic steroids 09/27 Prediabetes [...] Date Anticoagulation monitoring, INR range 2-3 [Z79.01]; Brandon Target 2.5-3.0 12/06/2016 1 Pessary maintenance 02/25/2016 09/28/19 20 Anticoagulation monitoring, goal range 2.0-2.6 09/19/2013 01/09/2018 Abnormal stress test 11/17/2010 011 Routine general medical exam ination at a health care facility 07/12/2009 09/28/2019 Overview (12/06/2012): Normal CT angiogram 11/2010 Hip pain 05/06/2008 07/09/2009 Onychomycosis 05/06/2008 08/27/2008 HX OF VENOUS THROMBOSIS AND EMBOLISM 11/09/2006 12/06/2012 Bilateral pulmonary embolism 10/11/2006 11/18/2017 AFTERCARE, LONG-TERM USE, HI DICATIONS NEC-PLAQUENIL 10/22/2003 Encounters Date Type Department Care Team Description 08/22/2024 11:00 AM SPONGE HOOKER Office Visit [facility] [address] [place] [address] Follow Up ( s/p LLE angio) 08/22/2024 8:09 AM SPONGE HOOKER - 08/22/2024 11:59 PM SPONGE HOOKER Hospital Encounter [facility] [address] [place] [address] Marcus Carrillo PA 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 [address] [place] [address] Adelaide Eid MD Olson, Jeffrey John, MD Nonrheumatic mitral valve regurgitation Discharge Disposition: Home Self Care 06/21/2024 Travel 06/18/2024 Telephone [facility] [address] [facility] [address] [place] [address] Adelaide Eid MD Pre Procedure 06/08/2024 10:30 AM SPONGE HOOKER Office Visit [facility] [address] [place] [address] Adelaide Eid MD Follow Up 06/07/2024 Travel from Last 3 Months Immunizations Name Administration Dates Next Due AMB INFLUENZA IIV3 (AGE 65+ YRS) PF (Flu Clinic Only) 03/23/2017 AMB Influenza, IIV3 (Age >=3 years) Preserve Free (Flu Clinic Only) 04/08/2009 AMB Influenza, IIV3 (Age >=3 years)(Flu Clinic Only) 04/06/2013,04/16/2011,04/24/2008 COVID-19 vaccine ([employer] 30mcg/0.3mL) PF, MDV 09/02/2020,08/12/2020 Influenza A [...] on file Legal Sex Female 5:25 AM SPONGE HOOKER Gender Identity Not on file Sexual Orientation [...] Comments Blood Pressure 186/81 08/22/2024 11:03 AM SPONGE HOOKER right arm normal high Pulse 66 08/22/2024 11:03 AM SPONGE HOOKER Temperature 36.4 C (97.6 F) 06/21/2024 9:38 AM SPONGE HOOKER Respiratory Rate 14 06/21/2024 10:3 1 AM SPONGE HOOKER Oxygen Saturation 100% 08/22/2024 11: 03 AM SPONGE HOOKER Inhaled Oxygen Concentration - - Weight 57.6 kg (126 lb 15.8 oz) 08/22/2024 11:01 AM SPONGE HOOKER Height 149.9 cm (4' 11.02) 08/22/2024 11:01 AM SPONGE HOOKER Body Mass Index 25.63 08/22/2024 11:01 AM SPONGE HOOKER Plan of Treatment Upcoming Encounters Date Type Department Care Team (Late st Contact Info) Description 08/30/2024 10:00 AM SPONGE HOOKER Office [facility] [address] [place], [place] [phone] [place] [address] [facility] [place], [place] [phone] Health Maintenance Due Date Last Done Comments [...] history exists Medical Devices Implanted Type Area Coding Compliance Specialist Device Identifier Shelf Expiration Date Model / Serial / Lot Lead Kit 4.32mm Spacing 28cm Length Interstim - [id number] Implanted:Qty: 1 on 04/01/2020 by Charlotte Smith MD at [facility] N/A: Sacrum [employer] Pain Therapy 09/30/2021 [id number] / / [id number] Stimulator 7.7mm 14cc Interstim Ii - [id number] Implanted:Qty: 1 on 04/01/2020 by Charlotte Smith MD at [facility] N/A: Sacrum [employer] Pain Therapy 03/31/2021 [id number]# / [id number] / Description:PIN [id number] Procedures Procedure Name Priority Date/Time Associated Diagnosis Comments US ARTERIAL LOWER EXTREMITY BILATERAL Routine 08/22/2024 10:16 AM SPONGE HOOKER 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 (HC) US ANKLE BRACHIAL INDEX BILATERAL Routine 08/22/2024 10:15 AM SPONGE HOOKER 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 (HC) ECHO VICTOR M WO CONTRAST W COLOR W LTD DOPPLER Routine 06/21/2024 11:15 AM SPONGE HOOKER Nonrheumatic mitral valve regurgitation XR DXA BONE DENSITY 2 SITES AXIAL Routine 07/02/2019 11:48 AM SPONGE HOOKER Osteopenia of multiple sites from Last 3 Months or Most Recently Relevant to Health Maintenance Results * US ARTERIAL LOWER EXTREMITY BILATERAL (08/22/2024 10:16 AM SPONGE HOOKER) Anatomical Region Laterality Modality LEGS, LEG L, LEG R Ultrasound 08/22/2024 8:16 AM SPONGE HOOKER Narrative 08/22/2024 1:05 PM SPONGE HOOKER VASCULAR ULTRASOUND REPORT RODERICK HEATON : 1940 Study Date: 08/22/2024 8:16:13 AM Age: 84 years Tech: LMS/EMS Gender: F Referring MD: MARCUS CARRILLO Site: [facility] Study performed: Lower extremity duplex US. Indication [...] +--------+-----+ EIA DST 91 +--------+ + +--------+-----+ HEMATOLOGY TECHNOLOGIST DST 98 +--------+ + +--------+-----+ PFA 133 +--------+ + +--------+-----+ SFA PRX 109 +--------+ + +--------+-----+ SFA MID 56 +--------+ + +--------+-----+ SFA DST 397 51 75-99% 7.8 +--------+ + +--------+-----+ COLLIN PRX 89 +--------+ + +--------+-----+ COLLIN DST 41 +--------+ + +--------+-----+ TPT 160 41 50-74% 3.9 +--------+ + +--------+-----+ RN CLINICAL QUALITY DST 55 +--------+ + +--------+-----+ LAXMI PRX 46 +--------+ + +--------+-----+ LAXMI DST -21 +--------+ + +--------+-----+ DPA 115 75-99% 4.6 +--------+ + +--------+-----+ +--------+ + LEFT Velocity cm/s +--------+ + EIA DST 110 +--------+ + HEMATOLOGY TECHNOLOGIST DST 104 +--------+ + PFA 76 +--------+ + SFA PRX 93 +--------+ + SFA MID 92 +--------+ + SFA DST 74 +--------+ + COLLIN PRX 80 +--------+ + COLLIN DST 46 +--------+ + TPT 72 +--------+ + RN CLINICAL QUALITY DST 17 +--------+ + LAXMI PRX 65 [...] Accreditation Commission (IAC/Vascular), [email or web address].org/vascular Report generated by Stipple. Final Procedure Note Wang Dela Cruz MD - 08/22/2024 VASCULAR ULTRASOUND REPORT RODERICK HEATON : 1940 Study Date: 08/22/2024 8:16:13 AM Age: 84 years Tech: LMS/EMS Gender: F Referring MD: MARCUS CARRILLO Site: [facility] Study performed: Lower extremity duplex US. Indication [...] +--------+-----+ EIA DST 91 +--------+ + +--------+-----+ HEMATOLOGY TECHNOLOGIST DST 98 +--------+ + +--------+-----+ PFA 133 +--------+ + +--------+-----+ SFA PRX 109 +--------+ + +--------+-----+ SFA MID 56 +--------+ + +--------+-----+ SFA DST 397 51 75-99% 7.8 +--------+ + +--------+-----+ COLLIN PRX 89 +--------+ + +--------+-----+ COLLIN DST 41 +--------+ + +--------+-----+ TPT 160 41 50-74% 3.9 +--------+ + +--------+-----+ RN CLINICAL QUALITY DST 55 +--------+ + +--------+-----+ LAXMI PRX 46 +--------+ + +--------+-----+ LAXMI DST -21 +--------+ + +--------+-----+ DPA 115 75-99% 4.6 +--------+ + +--------+-----+ +--------+ + LEFT Velocity cm/s +--------+ + EIA DST 110 +--------+ + HEMATOLOGY TECHNOLOGIST DST 104 +--------+ + PFA 76 +--------+ + SFA PRX 93 +--------+ + SFA MID 92 +--------+ + SFA DST 74 +--------+ + COLLIN PRX 80 +--------+ + COLLIN DST 46 +--------+ + TPT 72 +--------+ + RN CLINICAL QUALITY DST 17 +--------+ + LAXMI PRX 65 [...] theIntersocietal Accreditation Commission (IAC/Vascular),[email or web address]/vascular Report generated by Stipple. Final us Marcus WILLS US Final Resu lt * US ANKLE BRACHIAL INDEX BILATERAL (08/22/2024 10:15 AM SPONGE HOOKER) Anatomical Region Laterality Modality ANKLES, ANKLE L, ANKLE R Ultraso und 08/22/2024 8:31 AM SPONGE HOOKER Narrative 08/22/2024 12:32 PM SPONGE HOOKER VASCULAR ULTRASOUND REPORT RODERICK HEATON : 1940 Study Date: 08/22/2024 8:31:24 AM Age: 84 years Tech: LMS Gender: F Referring MD: MARCUS CARRILLO Site: [facility] Study performed: Lower extremity resting MINOR, [...] 190 Index +-----+ +--------+ +-----+ 1.18 226 RN CLINICAL QUALITY 162 0.84 +-----+ +--------+ +-----+ 1.14 218 DPA 214 1.11 +-----+ +--------+ +-----+ 0.60 116 Digit 1 136 0.71 +-----+ +--------+ +-----+ Wang Dela Cruz MD. Electronically signed on 08/22/2024 12:32:38 PM This study was performed and interpreted by a service accredited by the Intersocietal Accreditation Commission (IAC/Vascular), [email or web address].org/vascular Report generated by Stipple. Final Procedure Note Wang Dela Cruz MD - 08/22/2024 VASCULAR ULTRASOUND REPORT RODERICK HEATON : 1940 Study Date: 08/22/2024 8:31:24 AM Age: 84 years Tech: LMS Gender: F Referring MD: MARCUS CARRILLO Site: [facility] Study performed: Lower extremity [...] 190 Index +-----+ +--------+ +-----+ 1.18 226 RN CLINICAL QUALITY 162 0.84 +-----+ +--------+ +-----+ 1.14 218 DPA 214 1.11 +-----+ +--------+ +-----+ 0.60 116 Digit 1 136 0.71 +-----+ +--------+ +-----+ Wang Dela Cruz MD. Electronically signed on 08/22/2024 12:32:38 PM This study was performed and interpreted by a service accredited by theIntersocietal Accreditation Commission (IAC/Vascular),[email or web address]/vascular Report generated by Stipple. Final us Marcus WILLS US Final Resu lt * ECHO VICTOR M WO CONTRAST W COLOR W LTD DOPPLER (06/21/2024 11:15 AM SPONGE HOOKER) EJECTION FRACTION 55-60% PROSOLV Anatomical Region Laterality Modality Ultrasound, Ultr asound, Other 06/21/2024 9:54 AM SPONGE HOOKER Narrative 06/21/2024 12:23 [place] [address] Main: [email or web address] Transesophageal Echo Report RODERICK HEATON Aysha ID: [id number] Age: 83 : 1940 Ordering Provider: ADELAIDE EID Exam Date: 06/21/2024 09:54 Gender: F Planning Management It Specialist: RES Height: 59 in BSA: 1.54 m [...] Aortic Root ZScore: -0.94 David Montana MD [facility] Accredited Site (Electronically Signed) Final Date: 21 June 2024 12:22 Amended: 21 June 2024 12:25 ICD-10 Codes: I34.0 Procedure Note David Montana MD - 06/21/2024 [place] [address] Main: [email or web address] Transesophageal Echo Report RODERICK HEATON Namrussell ID: [id number] Age: 83 : 1940 Ordering Provider:ADELAIDE EID Exam Date: 06/21/2024 09:54 Gender: F Planning Management It Specialist: RES Height: 59 in BSA: 1.54 m [...] Aortic Root ZScore: -0.94 David Montana MD [facility] Accredited Site (Electronically Signed) Final Date: 21 June 2024 12:22 Amended: 21 June 2024 12:25 ICD-10 Codes: I34.0 Adelaide Eid MD ECHO ORD Edited R esult - Final * (ABNORMAL) XR DXA BONE DENSITY 2 SITES AXIAL (07/02/2019 11:48 AM SPONGE HOOKER) Anatomical Region Laterality Modality Spine, HIPS, HIPL, HIPR Other Narrative 07/06/2019 11:01 AM SPONGE HOOKER Please see scanned document for results of this study. us Rakel Bairese Geeta DO DEXA Final Resul t from Last 3 Months or Most Recently Relevant to Health Maintenance Insurance MEDICARE PART A HB ONLY [employer] Advance Directives Documents on File Type Date Recorded Patient Gis Instructor Expl anation Healthcare Directive 05/04/2024 5:29 AM [...] 8:45 AM 09/01/2016 4:04 PM Care Teams Greens Or Grounds Superintendent Relationship Specialty Start Date End Date Jose Napier PA-C [address] [facility] [place] [address] PCP - General Physician Manager Business Development Hospice 03/01/24 Kd Restrepo MD Endocrinology 11/24/11 Charlotte Smith MD [address] [place] [address] Surgery - Urology 03/01/24 Charlotte Anderson MD [address] [place] [address] Surgery - Vascular 03/21/24
== END 2024-08-24 12:57 | disposition home or self-care (01) ==
LOC: ED 12:54
PROVIDERS: Emergency Provider Family Medicine; PCP Physician Assistant Medical
DX: R04.0 Epistaxis (principal)
CPT/HCPCS: 99283; 99284

== ENCOUNTER 2024-08-26 12:42 | Emergency (ER) | payer OTHER, SELFPAY ==
--- OUTSIDE RECORDS SUMMARY | 2024-08-26 12:45 | XMS_ITS | Continuity of Care Document ---
Author Organization [place] [facility] [place] José Antoniolo gy, [facility] Address [address] [place] [address] Care Team Providers Care Stunt Double Name Role Phone ALDAIR KEY Primary Care [...] By Organization Details Last Modified Time 08/20/2024 [id number] Test each progra m for at least 2 weeks, adjusting amplitude as needed. May remain on a program as long as it is effective. Return as needed for reprogramming. [email or web address] Not available 08/20/2024 12:10:48 Reviewed the use of the smart internet programmer, and provided handout. [email or web address] Not available 08/20/2024 12:11:01 Reason for Referral None Reported. Problems Name Problem SNOMED Code Status Onset Date Resolution Date Notes Provider Name and Address Organization Details Recorded Time Chronic cystitis 84521815 Active 2018 N30.20 : Chronic cystitis Not Available [facility] 0 23:40:26 Overactiv e urinary bladder 262745229 Active 2018 N32.81 : Bladder muscle dysfunctio n - overactive Not Available [facility] 0 23:40:26 Benign neoplasti c disease 94771919 Active 2019 [facility] 0 09:58:09 Tear film insuffici ency 25280176 Active 2019 STEPHEN Hinton [facility] 0 09:58:21 Gastroeso phageal reflux disease 946429871 Active 2019 Daphne felix, [facility] 0 09:58:28 Hyperlipi demia 98309157 Active 2019 Daphne felix, [facility] 0 09:58:36 Heart disease 32059234 Active 2022 Radhika Mathis elvira, [facility] 3 11:27:33 Problem Notes None recorded. Procedures Surgical History Date Name Laterality Status Provider Name and Address Organization Details Recorded Time 08/20/19 25 Sacral neuromodulation w/o reprogramming completed Brea Bosch [facility] 08/20/2024 13:53:29 08/20/19 25 COMPLEX VISIT completed ELMA Burciaga [address] [place] [address],[address], [place], [address], [facility] 08/20/2024 11:37:25 08/20/19 25 Past Data Reviewed completed ELMA Burciaga [address] [place] [address],[address], [place], [address], [facility] 08/20/2024 11:37:44 08/20/19 25 Bladder Scan completed Radhika Mathis [facility] 08/20/2024 11:44:22 04/28/20 23 Sacral neuromodulation w/o reprogramming completed ELMA Burciaga [address] [place] [address],[address], [place], [address], [facility] 04/28/2023 11:57:28 04/28/20 23 Bladder Scan completed Radhika Mathis [facility] 04/28/2023 11:36:21 12/07/19 23 Sacral neuromodulation w/o reprogramming completed Brea Bosch [facility] 12/06/2022 11:08:45 04/09/20 22 Sacral Stimulator Reprogramming completed Brea Bosch [facility] 04/09/2022 12:49:34 09/15/19 22 Bladder Scan completed Merry Ocampo [facility] 09/14/2021 10:25:15 09/15/19 22 Sacral neuromodulation w/o reprogramming completed Brea Bosch [facility] 09/14/2021 10:15:12 08/03/19 22 Past Data Reviewed completed Charlotte Smith MD [address] [facility],[address], [place], [address], [facility] 08/03/2021 08:29:52 08/03/19 22 Bladder Scan completed Usha Corado [facility] 08/03/2021 11:50:03 11/27/19 21 Sacral Stimulator Reprogramming completed Brea Bosch [facility] 11/27/2020 12:44:01 09/17/19 20 Implant neuroelectrodes completed [facility] 12/13/2019 18:11:39 11/29/19 19 Insert bladder catheter completed [facility] Available [facility] 12/13/2019 18:11:39 11/14/19 15 Colonoscopy completed Lucinda Nuñez [facility] 11/11/2020 11:57:08 11/29/19 09 Total hip arthroplasty completed Not Available [facility] 12/13/2019 18:11:39 11/29/19 00 Unlisted procedure breast completed Not Available [facility] 12/13/2019 18:11:39 Appendectomy add-on completed Not Available [facility] 12/13/2019 18:11:39 Imaging Results None recorded. Procedure Notes None recorded. Medical Equipment None Reported. Allergies Allergen ID Allergen Name Allergen Category Reaction Reaction Severity Criticality Documentation Date Start Date Code Code System Note Provider Name and Address Organization Details Recorded Time 19861108 Product containin g nitroimid azole (product) medicatio n Not available Not available Not available 12/12/2019 06899 7004 SNOMED Not Available Not Available Not Available 19861202 sulindac medicatio n Not available Not available Not available 12/12/2019 73998 RxNorm Not Available Not Available Not Available 19870101 Product containin g penicilli n (product) medicatio n itching Not available Not available 12/12/2019 05307 8001 SNOMED Not Available Not Available Not Available 19870109 atorvasta tin medicatio n Not available Not available Not available 12/12/2019 08538 RxNorm Not Available Not Available Not Available 633389 tetracycl ine medicatio n Not available Not available Not available 12/12/2019 79398 RxNorm Not Available Not Available Not Available 672083 alendrona te sodium medicatio n Not available Not available Not available 12/12/201963428 2 RxNorm Not Available Not Available Not Available amoxicill in medicatio n Not available Not available Not available 12/12/2019 723 RxNorm Not Available Not Available Not Available 19870704 oxybutyni n chloride Not available dizziness Not available Not available 12/12/2019 45024 RxNorm fatig ue Not Available Not Available Not Available 028712 aspirin medicatio n Not available Not available Not available 12/12/2019 1191 RxNorm Not Available Not Available Not Available 135986 losartan Not available Not available Not available Not available 12/12/2019 08059 RxNorm Not Available Not Available Not Available 184404 estrogens , conjugate d (CORRECTION) medicatio n Not available Not available Not available 12/12/2019 4099 RxNorm Not Available Not Available Not Available 963715 ciproflox acin medicatio n Not available Not available Not available 12/12/2019 2551 RxNorm Not Available Not Available Not Available 749707 hydrochlo rothiazid e medicatio n Not available Not available Not available 12/12/2019 5487 RxNorm Not Available Not Available Not Available 771640 metoprolo l Not available Not available Not available Not available 12/12/2019 6918 RxNorm Not Available Not Available Not Available 379622 naproxen medicatio n Not available Not available Not available 12/12/2019 7258 RxNorm Not Available Not Available Not Available 909590 clindamyc in Not available Not available Not available Not available 12/12/2019 2582 RxNorm Not Available Not Available Not Available 443021 Substance with sulfonami de structure and antibacte rial mechanism of action (substanc e) medicatio n Not available Not available Not available 11/11/2020 81052 8003 SNOMED Not Available Not Available Not Available 705041 Myrbetriq medicatio n swelling Not available Not available 10/05/2021 94191 92 RxNorm Not Available Not Available Not Available 420992 [employer] y Immune medicatio n Not available Not available Not available 04/09/2022 74775 0 UNK Not Available Not Available Not Available 309846 alendrona te sodium medicatio n arthralgi a (joint pain) Not available Not available 08/20/2024201715 2 RxNorm Not Available Not Available Not Available 707624 cephalexi n medicatio n hives Not available [...] Updated DateTime 08/20/2024 154.94 cm 25.5 kg/m2 34110.97 g Radhika Mathis [facility] 08/20/2024 11:34:57 Date Recorded Body height Body mass index (BMI) Body weight Provider Name and Address Organization Details Last Updated DateTime 08/20/2024 154.94 cm 22.7 kg/m2 94534.08 g Brea Bosch [facility] 08/20/2024 12:00:03 Social History Question Answer Notes LastModified by Organizat ion Details LastModified Time Tobacco Smoking Status Never Smoker Not Available [facility] 12/13/2019 02:00:45 What Is Your Level Of Alcohol Consumption? None Information not available 09/14/2021 What Is Your Level Of Caffeine Consumption? None 3-4 Cups Decaffeinated Tea Daily [email or web address] Information not available 08/20/2024 Are You Currently Employed? No Information not available 09/14/2021 Race White Information n ot available 12/13/2019 Ethnicity Not /L atino Information not available 09/14/2021 Preferred Language Indonesian Information not available 09/14/2021 Recreational Drug Use No Information not available 09/14/2021 Could You Be ? No Information not available 09/14/2021 Marital Status Informati on not available 12/13/2019 What Was The Date Of Your Most Recent Tobacco Screening? 08/20/2024 [email or web address] Information not available 08/20/2024 What Is Your [...] conjugate PCV [address] 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, improved Nocturia 257215991 R35.1 chronic, improved [id number] Brea Bosch [facility] [address] [place] [address],[address] [place] [phone] 08/20/2024 11:33:09 08/24/2024 15:19:58 Overactive urinary bladder 528383160 N32.81 chronic stable Health Concerns Section Related Observation LastModified by Organization Detai ls LastModified Time None Recorded Concern Status LastModified by Organization Details LastModified Time None Recorded Payers Encounter Date Sequence Insurance Name Policy Number Policy Betancourt Covered Member ID Betancourt Member ID Guarantor Name 08/20/2024 1 MEDICA - DUAL ELIGIBLE (MEDICARE REPLACEMENT/ ADVANTAGE - HMO) [id number] Patsy Beltrán [id number] Patsy Beltrán Notes Date Note Type Note [...] to be almost every hour. ELMA Burciaga [address] [place] [address],[address], [place], [address], [facility] [place] [facility] 08/20/2024 11:52:49 OBGyn Episode No OBEpisode recorded.
--- OUTSIDE RECORDS SUMMARY | 2024-08-26 12:45 | XMS_ITS | Clinical Summary ---
Author Organization [facility] | [facility] Address [address] [place] [id number] Care Team Providers Care Risk Compliance Analyst Name Role Phone Kd Restrepo MD Unavailable [phone] Jose Napier PANettieC Primary Care Provider [phone] Charlotte Smith MD Unavailable [phone] Charlotte Anderson MD Unavailable [phone] Allergies Active Allergy Reactions Criticality Noted Date Comments Amoxicillin 01/19/2007 Aspirin Rash,Itching 01/20/2006 Atorvastatin Myalgia 12/27/2014 Blood-Group Specific Substance Other - Describe In Comment Field High 09/01/2016 Patient has Anti-D. Blood product orders may be delayed. Draw one red top and two purple top tubes for all Type and Screen/Type and Crossmatch orders. 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 05/04/2024 AMD (age-related macular degeneration), bilatera l 02/18/2022 Mitral valve insufficiency 01/25/2020 Mitral valve prolapse 01/25/2020 SOB (shortness of breath) 01/25/2020 Fatigue 01/25/2020 custodial current use of systemic steroids 09/27 Prediabetes [...] Date Anticoagulation monitoring, INR range 2-3 [Z79.01]; [place] [facility] 2.5-3.0 12/06/2016 1 Pessary maintenance 02/25/2016 [...] Department Care Team Description 08/22/2024 11:00 AM SALES ACCOUNT LEADER Office Visit [facility] [address] [place] [address] Follow Up ( s/p LLE angio) 08/22/2024 8:09 AM SALES ACCOUNT LEADER - 08/22/2024 11:59 PM SALES ACCOUNT LEADER Hospital Encounter [facility] [address] [place] [address] Marcus Carrillo PA Atherosclerosis of gambell arteries of left leg with ulceration of ankle (HC) 08/22/2024 Travel 08/18/2024 Travel 06/22/2024 Telephone [facility] [address] [place] [address] Adelaide Eid MD Results 06/21/2024 8:44 AM SALES ACCOUNT LEADER - 06/21/2024 11:01 AM SALES ACCOUNT LEADER Hospital Encounter [facility] [address] [place] [address] Adelaide Eid MD Olson, Jeffrey John, MD Nonrheumatic mitral valve regurgitation Discharge Disposition: Home Self Care 06/21/2024 Travel 06/18/2024 Telephone [facility] [address] [facility] [address] [place] [address] Adelaide Eid MD Pre Procedure 06/08/2024 10:30 AM SALES ACCOUNT LEADER Office Visit [facility] [address] [place] [address] Adelaide Eid MD Follow Up 06/07/2024 Travel from Last 3 Months Immunizations Name Administration Dates Next Due AMB INFLUENZA IIV3 (AGE 65+ YRS) PF (Flu Clinic Only) 03/23/2017 AMB Influenza, IIV3 (Age >=3 years) Preserve Free (Flu Clinic Only) 04/08/2009 AMB Influenza, IIV3 (Age >=3 years)(Flu Clinic Only) 04/06/2013,04/16/2011,04/24/2008 COVID-19 vaccine ([employer] NTReceptos 30mcg/0.3mL) PF, MDV 09/02/2020,08/12/2020 Influenza A (H1N1), [...] on file Legal Sex Female 5:25 AM SALES ACCOUNT LEADER Gender Identity Not on file Sexual Orientation [...] Comments Blood Pressure 186/81 08/22/2024 11:03 AM SALES ACCOUNT LEADER right arm normal high Pulse 66 08/22/2024 11:03 AM SALES ACCOUNT LEADER Temperature 36.4 C (97.6 F) 06/21/2024 9:38 AM SALES ACCOUNT LEADER Respiratory Rate 14 06/21/2024 10:3 1 AM SALES ACCOUNT LEADER Oxygen Saturation 100% 08/22/2024 11: 03 AM SALES ACCOUNT LEADER Inhaled Oxygen Concentration - - Weight 57.6 kg (126 lb 15.8 oz) 08/22/2024 11:01 AM SALES ACCOUNT LEADER Height 149.9 cm (4' 11.02) 08/22/2024 11:01 AM SALES ACCOUNT LEADER Body Mass Index 25.63 08/22/2024 11:01 AM SALES ACCOUNT LEADER Plan of Treatment Upcoming Encounters Date Type Department Care Team (Late st Contact Info) Description 08/30/2024 10:00 AM SALES ACCOUNT LEADER Office Visit [facility] [address] [place], [place] [id number] [place] [address] [facility] [place], [place] [phone] Health Maintenance Due Date Last Done Comments [...] history exists Medical Devices Implanted Type Area Metal Pattern Maker Device Identifier Shelf Expiration Date Model / Serial / Lot Lead Kit 4.32mm Spacing 28cm Length Interstim - [id number] Implanted:Qty: 1 on 04/01/2020 by Charlotte Smith MD at [facility] N/A: Sacrum [employer] Pain Therapy 09/30/2021 [id number]# / / [id number] Stimulator 7.7mm 14cc Interstim Ii - [id number] Implanted:Qty: 1 on 04/01/2020 by Charlotte Smith MD at [facility] N/A: Sacrum [employer] Pain Therapy 03/31/2021 [id number]# / [id number] / Description:PIN [id number] Procedures Procedure Name Priority Date/Time Associated Diagnosis Comments US ARTERIAL LOWER EXTREMITY BILATERAL Routine 08/22/2024 10:16 AM SALES ACCOUNT LEADER Atherosclerosis of gambell arteries of left leg with ulceration of ankle (HC) US ANKLE BRACHIAL INDEX BILATERAL Routine 08/22/2024 10:15 AM SALES ACCOUNT LEADER Atherosclerosis of gambell arteries of left leg with ulceration of ankle (HC) ECHO VICTOR M WO CONTRAST W COLOR W LTD DOPPLER Routine 06/21/2024 11:15 AM SALES ACCOUNT LEADER Nonrheumatic mitral valve regurgitation XR DXA BONE DENSITY 2 SITES AXIAL Routine 07/02/2019 11:48 AM SALES ACCOUNT LEADER Osteopenia of multiple sites from Last 3 Months or Most Recently Relevant to Health Maintenance Results * US ARTERIAL LOWER EXTREMITY BILATERAL (08/22/2024 10:16 AM SALES ACCOUNT LEADER) Anatomical Region Laterality Modality LEGS, LEG L, LEG R Ultrasound 08/22/2024 8:16 AM SALES ACCOUNT LEADER Narrative 08/22/2024 1:05 PM SALES ACCOUNT LEADER VASCULAR ULTRASOUND REPORT RODERICK HEATON : 1940 Study Date: 08/22/2024 8:16:13 AM Age: 84 years Tech: LMS/EMS Gender: F Referring MD: MARCUS CARRILLO Site: [facility] Study performed: Lower extremity duplex [...] +--------+-----+ EIA DST 91 +--------+ + +--------+-----+ TILTROTOR CREW CHIEF DST 98 +--------+ + +--------+-----+ PFA 133 +--------+ + +--------+-----+ SFA PRX 109 +--------+ + +--------+-----+ SFA MID 56 +--------+ + +--------+-----+ SFA DST 397 51 75-99% 7.8 +--------+ + +--------+-----+ COLLIN PRX 89 +--------+ + +--------+-----+ COLLIN DST 41 +--------+ + +--------+-----+ TPT 160 41 50-74% 3.9 +--------+ + +--------+-----+ LEATHER LEVELER DST 55 +--------+ + +--------+-----+ LAXMI PRX 46 +--------+ + +--------+-----+ LAXMI DST -21 +--------+ + +--------+-----+ DPA 115 75-99% 4.6 +--------+ + +--------+-----+ +--------+ + LEFT Velocity cm/s +--------+ + EIA DST 110 +--------+ + TILTROTOR CREW CHIEF DST 104 +--------+ + PFA 76 +--------+ + SFA PRX 93 +--------+ + SFA MID 92 +--------+ + SFA DST 74 +--------+ + COLLIN PRX 80 +--------+ + COLLIN DST 46 +--------+ + TPT 72 +--------+ + LEATHER LEVELER DST 17 +--------+ + LAXMI PRX 65 [...] Accreditation Commission (IAC/Vascular), [email or web address] Report generated by [employer] Final Procedure Note Wang Dela Cruz MD - 08/22/2024 VASCULAR ULTRASOUND REPORT RODERICK HEATON : 1940 Study Date: 08/22/2024 8:16:13 AM Age: 84 years Tech: LMS/EMS Gender: F Referring MD: MARCUS CARRILLO Site: [facility] Study performed: Lower extremity duplex [...] +--------+-----+ EIA DST 91 +--------+ + +--------+-----+ TILTROTOR CREW CHIEF DST 98 +--------+ + +--------+-----+ PFA 133 +--------+ + +--------+-----+ SFA PRX 109 +--------+ + +--------+-----+ SFA MID 56 +--------+ + +--------+-----+ SFA DST 397 51 75-99% 7.8 +--------+ + +--------+-----+ COLLIN PRX 89 +--------+ + +--------+-----+ COLLIN DST 41 +--------+ + +--------+-----+ TPT 160 41 50-74% 3.9 +--------+ + +--------+-----+ LEATHER LEVELER DST 55 +--------+ + +--------+-----+ LAXMI PRX 46 +--------+ + +--------+-----+ LAXMI DST -21 +--------+ + +--------+-----+ DPA 115 75-99% 4.6 +--------+ + +--------+-----+ +--------+ + LEFT Velocity cm/s +--------+ + EIA DST 110 +--------+ + TILTROTOR CREW CHIEF DST 104 +--------+ + PFA 76 +--------+ + SFA PRX 93 +--------+ + SFA MID 92 +--------+ + SFA DST 74 +--------+ + COLLIN PRX 80 +--------+ + COLLIN DST 46 +--------+ + TPT 72 +--------+ + LEATHER LEVELER DST 17 +--------+ + LAXMI PRX 65 [...] theIntersocietal Accreditation Commission (IAC/Vascular),[email or web address] Report generated by [employer] Final us Marcus WILLS US Final Resu lt * US ANKLE BRACHIAL INDEX BILATERAL (08/22/2024 10:15 AM SALES ACCOUNT LEADER) Anatomical Region Laterality Modality ANKLES, ANKLE L, ANKLE R Ultraso und 08/22/2024 8:31 AM SALES ACCOUNT LEADER Narrative 08/22/2024 12:32 PM SALES ACCOUNT LEADER VASCULAR ULTRASOUND REPORT RODERICK HEATON : 1940 Study Date: 08/22/2024 8:31:24 AM Age: 84 years Tech: LMS Gender: F Referring MD: MARCUS CARRILLO Site: [facility] Study performed: Lower extremity resting MINOR, [...] 190 Index +-----+ +--------+ +-----+ 1.18 226 LEATHER LEVELER 162 0.84 +-----+ +--------+ +-----+ 1.14 218 DPA 214 1.11 +-----+ +--------+ +-----+ 0.60 116 Digit 1 136 0.71 +-----+ +--------+ +-----+ Wang Dela Cruz MD. Electronically signed on 08/22/2024 12:32:38 PM This study was performed and interpreted by a service accredited by the Intersocietal Accreditation Commission (IAC/Vascular), [email or web address] Report generated by [employer] Final Procedure Note Wang Dela Cruz MD - 08/22/2024 VASCULAR ULTRASOUND REPORT RODERICK HEATON : 1940 Study Date: 08/22/2024 8:31:24 AM Age: 84 years Tech: LMS Gender: F Referring MD: MARCUS CARRILLO Site: [facility] Study performed: Lower extremity resting [...] 190 Index +-----+ +--------+ +-----+ 1.18 226 LEATHER LEVELER 162 0.84 +-----+ +--------+ +-----+ 1.14 218 DPA 214 1.11 +-----+ +--------+ +-----+ 0.60 116 Digit 1 136 0.71 +-----+ +--------+ +-----+ Wang Dela Cruz MD. Electronically signed on 08/22/2024 12:32:38 PM This study was performed and interpreted by a service accredited by theIntersocietal Accreditation Commission (IAC/Vascular),[email or web address] Report generated by [employer] Final us Marcus WILLS US Final Resu lt * ECHO VICTOR M WO CONTRAST W COLOR W LTD DOPPLER (06/21/2024 11:15 AM SALES ACCOUNT LEADER) EJECTION FRACTION 55-60% PROSOLV Anatomical Region Laterality Modality Ultrasound, Ultr asound, Other 06/21/2024 9:54 AM SALES ACCOUNT LEADER Narrative 06/21/2024 12:23 PM [place] [address] Main: [email or web address] Transesophageal Echo Report RODERICK HEATON Aysha ID: [id number] Age: 83 : 1940 Ordering Provider: ADELAIDE EID Exam Date: 06/21/2024 09:54 Gender: F General Assembler Installer: RES Height: 59 in BSA: 1.54 m [...] Aortic Root ZScore: -0.94 David Montana MD [facility] Accredited Site (Electronically Signed) Final Date: 21 June 2024 12:22 Amended: 21 June 2024 12:25 ICD-10 Codes: I34.0 Procedure Note David Montana MD - 06/21/2024 [place] [address] Main: [email or web address] Transesophageal Echo Report RODERICK HEATON Namrussell ID: [id number] Age: 83 : 1940 Ordering Provider:ADELAIDE EID Exam Date: 06/21/2024 09:54 Gender: F General Assembler Installer: RES Height: 59 in BSA: 1.54 m [...] Aortic Root ZScore: -0.94 David Montana MD [facility] Accredited Site (Electronically Signed) Final Date: 21 June 2024 12:22 Amended: 21 June 2024 12:25 ICD-10 Codes: I34.0 Adelaide Eid MD ECHO ORD Edited R esult - Final * (ABNORMAL) XR DXA BONE DENSITY 2 SITES AXIAL (07/02/2019 11:48 AM SALES ACCOUNT LEADER) Anatomical Region Laterality Modality Spine, HIPS, HIPL, HIPR Other Narrative 07/06/2019 11:01 AM SALES ACCOUNT LEADER Please see scanned document for results of this study. 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
--- OUTSIDE RECORDS SUMMARY | 2024-08-26 12:45 | XMS_ITS | Data Portability ---
Author Organization [place] [facility] Address [address] [place] [address] Care Team Providers Care Drafter Patent Name Role Phone ALDAIR KEY Primary Care Provider Assessment No assessment recorded. Plan of Treatment Reminders Order Date Submit Date Provider Last Modified By Organization Details Last Modified Time Details Appointments None recorded. Lab None recorded. Referral None recorded. Procedures None recorded. Surgeries None recorded. Imaging None recorded. Medication Orders Gemtesa 75 mg tablet 025 025 [id number], [address] [place] [address], [place], [address], 11:48:18 Patient TargetsNo targets recorded. Patient Instructions Encounter Date Encounter Id Patient Instructions Last Modified By Organization Details Last Modified Time 04/09/2022 [id number] Test each progra m for at least 2 weeks, adjusting amplitude as needed. May remain on a program as long as it is effective. Return as needed for reprogramming. [email or web address] Not available 04/09/2022 12:34:22 Patient states t hat Gemtesa samples were effective, but the rx was too expensive, so she stopped taking. She would like to try the Gemtesa again, but wonders of it is ok t take every other day, to spread the prescription out, and decrease the expense. I will ask MICHELET Blanco. [email or web address] Not available 04/09/2022 12:37:43 12/06/2022 [id number] Test each progra m for at least 2 weeks, adjusting amplitude as needed. May remain on a program as long as it is effective. Return as needed for reprogramming. [email or web address] Not available 12/06/2022 10:55:41 04/28/2023 [id number] Over Active Blad betty (OAB): -Managed with [...] needed [email or web address] Not available 04/28/2023 11:58:26 08/20/2024 [id number] Test each progra m for at least 2 weeks, adjusting amplitude as needed. May remain on a program as long as it is effective. Return as needed for reprogramming. [email or web address] Not available 08/20/2024 12:10:48 Reviewed the use of the [employer] network programmer, and provided handout. [email or web address] Not available 08/20/2024 12:11:01 08/20/2024 [id number] Over Active Blad betty (OAB): -Managed with [...] Address Organization Details Recorded Time Chronic cystitis 67650858 Active 2018 N30.20 : Chronic cystitis Not Available [facility] 0 23:40:26 Overactiv e urinary bladder 287664151 Active 2018 N32.81 : Bladder muscle dysfunctio n - overactive Not Available [facility] 0 23:40:26 Benign neoplasti c disease 66455501 Active 2019 STEPHEN Hinton - [facility] 0 09:58:09 Tear film insuffici ency 38780614 Active 2019 Daphne felix, [facility] 0 09:58:21 Gastroeso phageal reflux disease 827654629 Active 2019 Daphne Montague null, [facility] 0 09:58:28 Hyperlipi demia 94904422 Active 2019 Daphne felix, [facility] 0 09:58:36 Heart disease 66129144 Active 2022 Radhika Mathis null, [facility] 3 11:27:33 Problem Notes None recorded. Procedures Surgical History Date Name Laterality Status Provider Name and Address Organization Details Recorded Time 08/20/19 Sacral neuromodulation w/o reprogramming completed Brea Bosch [facility] 08/20/2024 13:53:29 08/20/19 25 COMPLEX VISIT completed ELMA Burciaga [address] [place] [address],[address], [place], [address], [facility] 08/20/2024 11:37:25 08/20/19 25 Past Data Reviewed completed ELMA Burciaga [address] [place] [address],[facility] [address], [place], [address], [facility] 08/20/2024 11:37:44 08/20/19 25 Bladder Scan completed Radhika Mathis [facility] 08/20/2024 11:44:22 04/28/20 23 Sacral neuromodulation w/o reprogramming completed ELMA Burciaga [address] [place] [address],[address], [place], [address], [facility] 04/28/2023 11:57:28 04/28/20 23 Bladder Scan completed Radhika Mathis [facility] 04/28/2023 11:36:21 12/07/19 23 Sacral neuromodulation w/o reprogramming completed Brea Bosch [facility] 12/06/2022 11:08:45 04/09/20 22 Sacral Stimulator Reprogramming completed Brea Bosch [facility] 04/09/2022 12:49:34 09/15/19 22 Bladder Scan completed Merry Ocampo [facility] 09/14/2021 10:25:15 09/15/19 22 Sacral neuromodulation w/o reprogramming completed Brea Bosch [facility] 09/14/2021 10:15:12 08/03/19 22 Past Data Reviewed completed Charlotte Smith MD [address] [facility],[address], [place], [address], [facility] 08/03/2021 08:29:52 08/03/19 22 Bladder Scan completed Usha Corado [facility] 08/03/2021 11:50:03 11/27/19 21 Sacral Stimulator Reprogramming completed Brea Bosch [facility] 11/27/2020 12:44:01 09/17/19 20 Implant neuroelectrodes completed Not Available [facility] 12/13/2019 18:11:39 11/29/19 19 Insert bladder catheter completed Not Available [facility] 12/13/2019 18:11:39 11/14/19 15 Colonoscopy completed Lucinda Nuñez [facility] 11/11/2020 11:57:08 11/29/19 09 Total hip arthroplasty completed Not Available [facility] 12/13/2019 18:11:39 11/29/19 00 Unlisted procedure breast completed Not Available [facility] 12/13/2019 18:11:39 Appendectomy add-on completed Not Available [facility] 12/13/2019 18:11:39 Imaging Results None recorded. Procedure Notes None recorded. Medical Equipment None Reported. Allergies Allergen ID Allergen Name Allergen Category Reaction Reaction Severity Criticality Documentation Date Start Date Code Code System Note Provider Name and Address Organization Details Recorded Time 19861108 Product containin g nitroimid azole (product) medicatio n Not available Not available Not available 12/12/2019 19044 7004 SNOMED Not Available Not Available Not Available 19861202 sulindac medicatio n Not available Not available Not available 12/12/2019 19338 RxNorm Not Available Not Available Not Available 19870101 Product containin g penicilli n (product) medicatio n itching Not available Not available 12/12/2019 91558 8001 SNOMED Not Available Not Available Not Available 19870109 atorvasta tin medicatio n Not available Not available Not available 12/12/2019 42834 RxNorm Not Available Not Available Not Available 067695 tetracycl ine medicatio n Not available Not available Not available 12/12/2019 17001 RxNorm Not Available Not Available Not Available 19870307 alendrona te sodium medicatio n Not available Not available Not available 12/12/201916951 2 RxNorm Not Available Not Available Not Available amoxicill in medicatio n Not available Not available Not available 12/12/2019 723 RxNorm Not Available Not Available Not Available 19870704 oxybutyni n chloride Not available dizziness Not available Not available 12/12/2019 68766 RxNorm fatig ue Not Available Not Available Not Available 19870804 aspirin medicatio n Not available Not available Not available 12/12/2019 1191 RxNorm Not Available Not Available Not Available 064224 losartan Not available Not available Not available Not available 12/12/2019 55971 RxNorm Not Available Not Available Not Available 890371 estrogens , conjugate d (FPC) medicatio n Not available Not available Not available 12/12/2019 4099 RxNorm Not Available Not Available Not Available 386760 ciproflox acin medicatio n Not available Not available Not available 12/12/2019 2551 RxNorm Not Available Not Available Not Available 054192 hydrochlo rothiazid e medicatio n Not available Not available Not available 12/12/2019 5487 RxNorm Not Available Not Available Not Available 734918 metoprolo l Not available Not available Not available Not available 12/12/2019 6918 RxNorm Not Available Not Available Not Available 457637 naproxen medicatio n Not available Not available Not available 12/12/2019 7258 RxNorm Not Available Not Available Not Available 471611 clindamyc in Not available Not available Not available Not available 12/12/2019 2582 RxNorm Not Available Not Available Not Available 797452 Substance with sulfonami de structure and antibacte rial mechanism of action (substanc e) medicatio n Not available Not available Not available 11/11/2020 88604 8003 SNOMED Not Available Not Available Not Available 511420 Myrbetriq medicatio n swelling Not available Not available 10/05/2021 11204 92 RxNorm Not Available Not Available Not Available 971087 [employer] Immune medicatio n Not available Not available Not available 04/09/2022 37858 0 UNK Not Available Not Available Not Available 853125 alendrona te sodium medicatio n arthralgi a (joint pain) Not available Not available 08/20/2024201715 2 RxNorm Not Available Not Available Not Available 972428 cephalexi n medicatio n hives Not available [...] Updated DateTime 04/09/2022 154.94 cm 27.8 kg/m2 26630.08 g Brea Bosch [facility] 04/09/2022 12:13:52 Date Recorded Body height Body mass index (BMI) Body weight Provider Name and Address Organization Details Last Updated DateTime 12/06/2022 154.94 cm 25.5 kg/m2 23174.97 g Brea Bosch [facility] 12/06/2022 10:41:56 Date Recorded Body height Body mass index (BMI) Body weight Provider Name and Address Organization Details Last Updated DateTime 04/28/2023 154.94 cm 25.5 kg/m2 31631.97 g Radhika Mathis [facility] 04/28/2023 11:25:35 Date Recorded Body height Body mass index (BMI) Body weight Provider Name and Address Organization Details Last Updated DateTime 08/20/2024 154.94 cm 25.5 kg/m2 77135.97 g Radhika Mathis [facility] 08/20/2024 11:34:57 Date Recorded Body height Body mass index (BMI) Body weight Provider Name and Address Organization Details Last Updated DateTime 08/20/2024 154.94 cm 22.7 kg/m2 73321.08 g Brea Bosch [facility] 08/20/2024 12:00:03 Social History Question Answer Notes LastModified by Organizat ion Details LastModified Time Tobacco Smoking Status Never Smoker Not Available [facility] 12/13/2019 02:00:45 What Is Your Level Of Alcohol Consumption? None Information not available 09/14/2021 What Is Your Level Of Caffeine Consumption? None 3-4 Cups Decaffeinated Tea Daily [email or web address] Information not available 08/20/2024 Are You Currently Employed? No Information not available 09/14/2021 Race White Information n ot available 12/13/2019 Ethnicity Not /L atino Information not available 09/14/2021 Preferred Language Nepalese Information not available 09/14/2021 Recreational Drug Use No Information not available 09/14/2021 Could You Be ? No Information not available 09/14/2021 Marital Status Informati on not available 12/13/2019 What Was The Date Of Your Most Recent Tobacco Screening? 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 [id number] Charlotte Smith MD [address] [address] 05/13/2020 10:14:48 05/13/2020 14:22:18 Overactive urinary bladder 078653258 N32.81 Urge incon tinence of urine 38576106 N39.41 History of urinary tract infection 4569609322 107 Z87.440 [id number] Charlotte Smith MD [facility] [address] [address] 11/11/2020 11:46:55 11/11/2020 13:40:18 Overactive urinary bladder 943793284 N32.81 chronic stable Urge incon tinence of urine 46929144 N39.41 chornic stable [id number] Brea Bosch [facility] [address] [place] [address],[address] [place] [address] 11/26/2020 10:15:12 12/02/2020 15:37:48 Overactive urinary bladder 128115286 N32.81 chronic stable Nocturia 826813220 R35.1 [id number] Charlotte Smith MD [facility] [address] [place] [address],[address] [place] [address] 08/03/2021 11:31:50 08/03/2021 12:09:22 Overactive urinary bladder 387809316 N32.81 chronic stable Urge incon tinence of urine 29877429 N39.41 chornic worse Nocturia 963961276 R35.1 chronic stable [id number] ELMA Burciaga [facility] [address] [place] [address],[address] [place] [address] 09/14/2021 10:06:36 09/14/2021 14:16:12 Overactive urinary bladder 102847469 N32.81 chronic stable Urge incon tinence of urine 13125156 N39.41 chronic, improved Nocturia 573349772 R35.1 chronic, improved [id number] Brea CrabtreeBosch [facility] [address] [place] [address],[address] [place] [address] 09/14/2021 09:30:06 09/14/2021 14:31:59 Overactive urinary bladder 957481102 N32.81 chronic stable [id number] ELMA Burciaga [facility] [address] [place] [address],[address] [place] [address] 11/12/2021 11:29:59 11/12/2021 12:37:25 Overactive urinary bladder 914534275 N32.81 chronic stable Urge incon tinence of urine 93049487 N39.41 chronic, improved Nocturia 265738490 R35.1 chronic, improved [id number] Brea Bosch [facility] [address] [place] [address],[address] [place] [address] 04/09/2022 11:43:46 04/09/2022 13:38:20 Overactive urinary bladder 669116601 N32.81 chronic stable [id number] [facility] [address] [place] [address],[address] [place] [address] 12/06/2022 10:28:13 12/06/2022 11:24:29 Overactive urinary bladder 344903473 N32.81 chronic stable [id number] ELMA Burciaga [facility] [address] [place] [address],[address] [place] [address] 04/28/2023 11:22:38 04/28/2023 12:04:03 Overactive urinary bladder 041529313 N32.81 chronic stable Urge incon tinence of urine 73752384 N39.41 chronic, improved Nocturia 561490032 R35.1 chronic, improved [id number] ELMA Burciaga [facility] [address] [place] [address],[address] [place] [address] 08/20/2024 11:29:07 08/20/2024 12:13:29 Overactive urinary bladder 233003981 N32.81 chronic stable Urge incon tinence of urine 97919985 N39.41 chronic, improved Nocturia 384554404 R35.1 chronic, improved [id number] [facility] [address] [place] [address],[address] [place] [address] 08/20/2024 11:33:09 08/24/2024 15:19:58 Overactive urinary bladder 717070418 N32.81 chronic stable Health Concerns Section Related Observation LastModified by Organization Detai ls LastModified Time None Recorded Concern Status LastModified by Organization Details LastModified Time None Recorded Advance Directives Directive None Recorded Payers Encounter Date Sequence Insurance Name Policy Number Policy Betancourt Covered Member ID Betancourt Member ID Guarantor Name 04/09/2022 2 [place] [employer] Patsy Beltrán [id number] Patsy Beltrán 04/09/2022 2 [facility] [id number] Patsy Beltrán [id number] [id number] Patsy Beltrán 12/06/2022 2 [place] [employer] [facility] Patsy Beltrán [id number] Patsy Beltrán 12/06/2022 2 [facility] [id number] Patsy Beltrán [id number] [id number] Patsy Beltrán 04/28/2023 2 [place] [facility] Patsy Beltrán [id number] Patsy Beltrán 04/28/2023 2 [facility] [id number] Patsy Beltrán [id number] [id number] Patsy Beltrán 08/20/2024 1 MEDICA - DUAL ELIGIBLE (MEDICARE REPLACEMENT/A DVANTAGE - HMO) [id number] Patsy Beltrán [id number] Patsy Beltrán 08/20/2024 1 MEDICA - DUAL ELIGIBLE (MEDICARE REPLACEMENT/A DVANTAGE - HMO) [id number] Patsy Beltrán [id number] Patsy Beltrán Notes Date Note Type Note [...] changed Rate chaanged Resolution changed Breajovita Bosch [facility] 12/06/2022 11:08:58 04/28/2023 text/html 04/28/23:Patient presents [...] be almost every hour. ELMA Burciaga [address] [facility],[address], [place], [address], [place] [facility] 04/28/2023 11:58:40 08/20/2024 text/html 08/20/24:Patient presents [...] to be almost every hour. ELMA Burciaga [address] [facility],[address], [place], [address], [place] [facility] 08/20/2024 11:52:49 OBGyn Episode No OBEpisode recorded.
--- OUTSIDE RECORDS SUMMARY | 2024-08-26 12:45 | XMS_ITS | Continuity of Care Document ---
Author Organization [place] [facility] Address [address] [place] [address] [address] [place] [address] Care Team Providers Care Editor Newspaper Name Role Phone ALDAIR KEY Primary Care Provider [phone] Assessment No assessment recorded. Plan of Treatment Reminders Order Date Submit Date Provider Last Modified By Organization Details Last Modified Time Details Appointments None recorded. Lab None recorded. Referral None recorded. Procedures None recorded. Surgeries None recorded. Imaging None recorded. Medication Orders Gemtesa 75 mg tablet 025 [id number] [id number], [address], [address], 5 11:48:18 Patient TargetsNo targets recorded. 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, [facility] 3 11:27:33 Problem Notes None recorded. Procedures Surgical History Date Name Laterality Status Provider Name and Address Organization Details Recorded Time 08/20/19 25 Sacral neuromodulation w/o reprogramming completed Brea Bosch [facility] 08/20/2024 13:53:29 08/20/19 25 COMPLEX VISIT completed ELMA Burciaga [address] [place] [address],[address], [address], [facility] 08/20/2024 11:37:25 08/20/19 25 Past Data Reviewed completed ELMA Burciaga [address] [place] [address],[address], [address], [facility] 08/20/2024 11:37:44 08/20/19 25 Bladder Scan completed Radhika Mathis [facility] 08/20/2024 11:44:22 04/28/20 23 Sacral neuromodulation w/o reprogramming completed ELMA Burciaga [address] [place] [address],[facility] [address], [place], [address], [facility] 04/28/2023 11:57:28 04/28/20 23 Bladder Scan completed Radhika Mathis [facility] 04/28/2023 11:36:21 12/07/19 23 Sacral neuromodulation w/o reprogramming completed Brea Bosch [facility] 12/06/2022 11:08:45 04/09/20 22 Sacral Stimulator Reprogramming completed Brea Bosch [facility] 04/09/2022 12:49:34 09/15/19 22 Bladder Scan completed Merry Ocampo [facility] 09/14/2021 10:25:15 09/15/19 22 Sacral neuromodulation w/o reprogramming completed Brea Bosch [facility] 09/14/2021 10:15:12 08/03/19 22 Past Data Reviewed completed Charlotte Smith MD [address] [place] [address],[address], [place], [address], [facility] 08/03/2021 08:29:52 08/03/19 22 Bladder Scan completed Usha Corado [facility] 08/03/2021 11:50:03 11/27/19 21 Sacral Stimulator Reprogramming completed Brea Bosch [facility] 11/27/2020 12:44:01 09/17/19 20 Implant neuroelectrodes completed Not Available [facility] 12/13/2019 18:11:39 11/29/19 19 Insert bladder catheter completed Not Available [facility] 12/13/2019 18:11:39 11/14/19 15 Colonoscopy completed Lucinda Nuñez [facility] 11/11/2020 11:57:08 11/29/19 09 Total hip arthroplasty completed Not Available [facility] 12/13/2019 18:11:39 11/29/19 00 Unlisted procedure breast completed Not Available [facility] 12/13/2019 18:11:39 Appendectomy add-on completed Not Available [facility] 12/13/2019 18:11:39 Imaging Results None recorded. Procedure Notes None recorded. Medical Equipment None Reported. Allergies Allergen ID Allergen Name Allergen Category Reaction Reaction Severity Criticality Documentation Date Start Date Code Code System Note Provider Name and Address Organization Details Recorded Time 19861108 Product containin g nitroimid azole (product) medicatio n Not available Not available Not available 12/12/2019 15661 7004 SNOMED Not Available Not Available Not Available 19861202 sulindac medicatio n Not available Not available Not available 12/12/2019 96523 RxNorm Not Available Not Available Not Available 19870101 Product containin g penicilli n (product) medicatio n itching Not available Not available 12/12/2019 81785 8001 SNOMED Not Available Not Available Not Available 352920 atorvasta tin medicatio n Not available Not available Not available 12/12/2019 32370 RxNorm Not Available Not Available Not Available 017910 tetracycl ine medicatio n Not available Not available Not available 12/12/2019 05385 RxNorm Not Available Not Available Not Available 19870307 alendrona te sodium medicatio n Not available Not available Not available 12/12/201926768 2 RxNorm Not Available Not Available Not Available amoxicill in medicatio n Not available Not available Not available 12/12/2019 723 RxNorm Not Available Not Available Not Available 19870704 oxybutyni n chloride Not available dizziness Not available Not available 12/12/2019 35167 RxNorm fatig ue Not Available Not Available Not Available 356248 aspirin medicatio n Not available Not available Not available 12/12/2019 1191 RxNorm Not Available Not Available Not Available 260962 losartan Not available Not available Not available Not available 12/12/2019 60386 RxNorm Not Available Not Available Not Available 318792 estrogens , conjugate d (INTERMEDIATE) medicatio n Not available Not available Not available 12/12/2019 4099 RxNorm Not Available Not Available Not Available 661108 ciproflox acin medicatio n Not available Not available Not available 12/12/2019 2551 RxNorm Not Available Not Available Not Available 401768 hydrochlo rothiazid e medicatio n Not available Not available Not available 12/12/2019 5487 RxNorm Not Available Not Available Not Available 067144 metoprolo l Not available Not available Not available Not available 12/12/2019 6918 RxNorm Not Available Not Available Not Available 796701 naproxen medicatio n Not available Not available Not available 12/12/2019 7258 RxNorm Not Available Not Available Not Available 171427 clindamyc in Not available Not available Not available Not available 12/12/2019 2582 RxNorm Not Available Not Available Not Available 220669 Substance with sulfonami de structure and antibacte rial mechanism of action (substanc e) medicatio n Not available Not available Not available 11/11/2020 78764 8003 SNOMED Not Available Not Available Not Available 178467 Myrbetriq medicatio n swelling Not available Not available 10/05/2021 03694 92 RxNorm Not Available Not Available Not Available 251338 [facility] [facility] Immune medicatio n Not available Not available Not available 04/09/2022 60672 0 UNK Not Available Not Available Not Available 865902 alendrona te sodium medicatio n arthralgi a (joint pain) Not available Not available 08/20/20242017 48438 2 RxNorm Not Available Not Available Not Available 190101 cephalexi n medicatio n hives Not available [...] Updated DateTime 08/20/2024 154.94 cm 25.5 kg/m2 98125.97 g Radhika Mathis [place] [facility] 08/20/2024 11:34:57 Date Recorded Body height Body mass index (BMI) Body weight Provider Name and Address Organization Details Last Updated DateTime 08/20/2024 154.94 cm 22.7 kg/m2 47987.08 g Brea Danitza [facility] 08/20/2024 12:00:03 Social History Question Answer Notes LastModified by Organizat ion Details LastModified Time Tobacco Smoking Status Never Smoker Not Available [facility] 12/13/2019 02:00:45 What Is Your Level Of Alcohol Consumption? None Information not available 09/14/2021 What Is Your Level Of Caffeine Consumption? None 3-4 Cups Decaffeinated Tea Daily [email or web address] Information not available 08/20/2024 Are You Currently Employed? No Information not available 09/14/2021 Race White Information n ot available 12/13/2019 Ethnicity Not /L atino Information not available 09/14/2021 Preferred Language [place] Information not available 09/14/2021 Recreational Drug Use No Information not available 09/14/2021 Could You Be ? No Information not available 09/14/2021 Marital Status Informati on not available 12/13/2019 What Was The Date Of Your Most Recent Tobacco Screening? 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, improved Nocturia 033783454 R35.1 chronic, improved [id number] Brea Bosch [facility] [address] [place] [address],it e [address] [place] [address] 08/20/2024 11:33:09 08/24/2024 15:19:58 Overactive urinary bladder 578241893 N32.81 chronic stable Health Concerns Section Related Observation LastModified by Organization Detai ls LastModified Time None Recorded Concern Status LastModified by Organization Details LastModified Time None Recorded Payers Encounter Date Sequence Insurance Name Policy Number Policy Betancourt Covered Member ID Betancourt Member ID Guarantor Name 08/20/2024 1 [employer] - DUAL ELIGIBLE (MEDICARE REPLACEMENT/ ADVANTAGE - HMO) [id number] Patsy Beltrán [id number] Patsy Beltrán Notes Date Note Type Note [...] to be almost every hour. ELMA Burciaga [address] [place] [address],[address], [place], [address], [facility] 08/20/2024 11:52:49 OBGyn Episode No OBEpisode recorded.
[2024-08-26 13:14] VITALS: BP 160/76; PULSE 90; RESP 20; TEMP 36.7; O2SAT 96; BMI 25.2
--- NOTE | 2024-08-26 13:16 | ED_ITS ---
History of Present Illness General Time Seen by Provider: 13:17 Date Seen: 08/26/24 Chief Complaint: Epistaxis/Nosebleed Stated Complaint: Bad Nose Bleed Time Seen by Provider: 08/26/24 13:15 Source: patient and RN notes reviewed Mode of arrival: ambulatory Limitations: no limitations History of Present Illness HPI Narrative: This 84-year-old female is coming in with reported severe nose bleed. She states it was coming out both sides. Started around 11 30 this morning. No trauma. She is on Plavix and Coumadin. She states recently her INR was 2.7, she likes it in the range of 2.3-2.6. She had been going up and down, they had told her to take the full 2.5 mg of Coumadin every day, was taking half a pill on Mondays and Wednesdays. When her INR came back at 2.7, they told her she needed to continue on the 2.5 mg daily which she states she disagreed with. She feels this may be contributing to her nose bleeds. She was here on the in the ER, had Afrin nose spray and bleeding stopped without intervention. Her recent prior nosebleeds had been from the left side. She states today it started in was coming out both nostrils, going down the back of her throat. She had a nasal clamp put on on arrival here, had attempted to try to go to urgent care and they referred her to us appropriately. She no longer feels any bleeding going down the back of her throat, has nasal clamp on. Related Data Home Medications ?Medication ?Instructions ?Recorded ?Confirmed Lactobacillus acidophilus 1 10 mg PO DAILY 04/15/22 07/12/24 billion cell capsule betamethasone, augmented 0.05 % 1 applic topical DAILY PRN 04/15/22 07/12/24 topical cream multivitamin 1 tab PO DAILY 04/15/22 07/12/24 clobetasol 0.05 % topical ointment 1 g topical 2XW PRN lichen 09/10/22 07/12/24 sclerosis vibegron 75 mg tablet (Gemtesa) 75 mg PO DAILY 03/24/23 07/12/24 diltiazem HCl 240 mg 240 mg PO DAILY 06/02/23 07/12/24 capsule,extended release 24 hr levothyroxine 112 mcg tablet 112 mcg PO .COMPLEX 11/03/23 07/12/24 omeprazole 40 mg capsule,delayed 40 mg PO DAILY 01/18/24 07/12/24 release clopidogrel 75 mg tablet 75 mg PO DAILY 05/10/24 07/12/24 Previous Rx's ?Medication ?Instructions ?Recorded calcium carbonate 600 mg PO DAILY #90 tabs 01/06/22 lorazepam 0.5 mg tablet 0.25 - 0.5 mg (0.5 - 1 x 0.5 mg) 01/06/22 PO DAILY PRN anxiety #5 tabs acetaminophen 500 mg capsule 500 - 1,000 mg (1 - 2 x 500 mg) PO 09/09/22 Q6H PRN pain #100 caps triamcinolone acetonide 0.1 % 1 applic topical BID PRN rash #80 05/05/23 topical cream grams pilocarpine HCl 5 mg tablet 5 mg PO TID #270 tabs 01/03/24 gabapentin 6%/ketamine See Rx Instructions topical .four 02/02/24 8%/liodcaine 2.5% liposomal cream time daily PRN pain #60 grams with baclofen 2% furosemide 20 mg tablet 20 mg PO BID PRN edema #180 tabs 04/02/24 fosfomycin tromethamine 3 gram 1 packet PO Q3D PRN bladder 05/10/24 oral packet infections 2 doses #2 ea denosumab 60 mg/mL subcutaneous 60 mg subcut [id number] #1 mL 06/06/24 syringe (Prolia) prednisone 10 mg tablet 10 mg PO Q OTHER DAY #45 tabs 06/11/24 warfarin 2.5 mg tablet 1.25 - 2.5 mg PO DAILY #90 tabs 06/12/24 sennosides 8.6 mg tablet (Senna 8.6 mg PO BID PRN constipation 07/08/24 Lax) #180 tabs fosfomycin tromethamine 3 gram 1 packet PO Q3D PRN bladder 07/09/24 oral packet infections 2 doses #2 ea nitrofurantoin macrocrystal 100 mg 100 mg PO BID #14 caps 07/09/24 capsule Allergies Allergy/AdvReac Type Severity Reaction Status Date / Time sulindac Allergy Severe Difficulty Verified 07/12/24 13:10 Breathing tetracycline Allergy Intermediate Rash Verified 07/12/24 13:10 mirabegron Allergy Mild lost Verified 07/12/24 13:10 control of bladder amoxicillin Allergy Unknown Verified 07/12/24 13:10 aspirin Allergy Unknown Verified 07/12/24 13:10 atorvastatin Allergy Unknown Verified 07/12/24 13:10 cholecalciferol (vitamin D3) Allergy Unknown Verified 07/12/24 13:10 (From Vitamin D3) ciprofloxacin Allergy Unknown Verified 07/12/24 13:10 clindamycin Allergy Unknown Verified 07/12/24 13:10 hydrochlorothiazide Allergy Unknown Verified 07/12/24 13:10 losartan Allergy Unknown Verified 07/12/24 13:10 metoprolol Allergy Unknown Verified 07/12/24 13:10 naproxen Allergy Unknown Verified 07/12/24 13:10 Nitroimidazoles Allergy Unknown Verified 07/12/24 13:10 alendronate sodium Allergy Verified 07/12/24 13:10 estrogens, conjugated Allergy Verified 07/12/24 13:10 oxybutynin Allergy Verified 07/12/24 13:10 Penicillins Allergy Verified 07/12/24 13:10 Sulfa (Sulfonamide Allergy Rash Verified 07/12/24 13:10 Antibiotics) Quinolones AdvReac Intermediate bad Verified 07/12/24 13:10 arthritis flair tolterodine AdvReac Intermediate Headache Verified 07/12/24 13:10 cephalexin AdvReac Unknown Hives Verified 07/12/24 13:10 furosemide AdvReac Unknown Verified 07/12/24 13:10 Review of Systems Narrative: As per HPI. 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 ?Z79.52 - 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 (current) use of systemic steroids (ICD-10) Diverticular disease ?K57.90 - Diverticulosis of intestine, part unspecified, without perforation or abscess without bleeding (ICD-10) Surgical History 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) ?Z96.612 - Presence of left artificial shoulder joint (ICD-10) History of bladder surgery (~2020) ?Z98.890 - Other specified postprocedural states (ICD-10) 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) ?Z96.641 - Presence of right artificial hip joint (ICD-10) History of partial surgical removal of colon (08/23/02) ?Z90.49 - Acquired absence of other specified parts of digestive tract (ICD- 10) History of lumpectomy of right breast (1999) ?Z98.890 - Other specified postprocedural states (ICD-10) History of colonoscopy with polypectomy (03/2019) ?Z98.890 - Other specified postprocedural states (ICD-10) ?Z86.010 - Personal history of colonic polyps (ICD-10) History of carpal tunnel release of both wrists (~1989) ?Z98.890 - Other specified postprocedural states (ICD-10) History of bladder surgery (09/17/19) ?Z98.890 - Other specified postprocedural states (ICD-10) History of appendectomy ?Z90.49 - Acquired absence of other specified parts of digestive tract (ICD- 10) Family History Mother Cancer Heart failure Father Colon cancer Social History Narrative: She lives in [place] with her . Her has some dementia. He is currently home alone. Her son, Bahman, lives nearby. He is primary support and healthcare power of tax attorney. Code status is full. does not use illicit drugs no history of alcohol use nonsmoker What is your current living situation?: I presently have a place to live Problems where you live: no known problems Problems where you live details: N/A In the past 12 months, utilities in danger of being shut off: no In past 12 months, lack of transportation kept you from medical appts, meetings, work, or getting things needed for daily living: no In the past 12 mos, have been you worried that your food would run out before you had money to buy more?: never true In the past 12 mos, the food you bought just didn't last and you didn't have money to buy more?: never true Highest level of school completed/degree received: high school graduate Smoking Status: Never smoker Do you use any of these nicotine containing products: None How often do you have a drink containing alcohol: monthly or less Alcohol type: wine How many standard drinks containing alcohol do you have on a typical day: 1 or 2 How often do you have six or more drinks on one occasion: Never AUDIT-C Alcohol total score: 1 Non-prescribed substance use: denies use Caffeine: Yes How often does anyone, including family, friends and others, physically hurt you : never How often does anyone, including family, friends and others, insult or talk down to you: never How often does anyone, including family, friends and others, threaten you with harm: never How often does anyone, including family, friends and others, scream or curse at you: never service: No Exam Const: Vital Signs, click to edit/add: Vital Signs - 24 hr 08/26/24 13:14 Temperature 98.1 F Pulse Rate [Right Pulse Oximeter] 90 Respiratory Rate 20 Blood Pressure [Ri ght Upper Arm] 160/76 H Pulse Oximetry 96 Oxygen Delivery Me thod Room Air Patient is alert, interactive, no apparent distress. She has nasal clamp on, blood around her left nares, do not see anything around the right. She has some dried blood along the corners of her mouth. She is speaking in complete sentences, face atraumatic. As soon as I removed the nasal clamp, started to have bleeding that she was feeling going down the back of her throat. Trimmed down a Merocel and placed in the left nares with apparent initial control bleeding. Use paper tape to tape the strings away on her cheek. Will observe here to ensure no further bleeding. Documenting provider has reviewed patient's vital signs: yes Course Course ED Course: Patient had Merocel place left nares, does want her INR checked today. Will do a CBC an INR and observe for further bleeding. Reevaluation(s) Time of Reevaluation #1: 14:12 Reevaluation #1: Have reviewed INR with patient. She is a little concerned as it is lower than what she thought it would be. She can follow up with her [facility] on this. Hemoglobin is stable. She has had no active bleeding. She is getting a little drippage which we discussed is normal, there is nothing excessively dripping. She she does not have any evidence of active ongoing bleeding. She has many antibiotic allergies. She has had hives to Keflex, does not tolerate penicillins, quinolones, clindamycin, Cipro, tetracycline. Will see if we can get her into ENT on Tuesday to have this addressed, does not seem that we have an option to keep her on antibiotics with the packing in place. She has also had a rash with sulfa. Best bet is to have her evaluated on Tuesday by ENT when Dr. Joel is in office again. I would hate to sensitized her to any potential antibiotic like Z-Richardson that she has maybe taken in the past. I think it makes most sense to have her seen expeditiously by ENT to have the packing removed on Tuesday, will be under 48 hours likely. Vital Signs Vital signs: Initial Vital Signs Temperature 98.1 F 08/26/24 13:14 Temperature Source Temporal Artery Scan 08/26/24 13:14 Pulse Rate 90 08/26/24 13:14 Respiratory Rate 20 08/26/24 13:14 Blood Pressure 160/76 H 08/26/24 13:14 Blood Pressure Mean 104 08/26/24 13:14 Blood Pressure Position Sitting 08/26/24 13:14 Pulse Oximetry 96 08/26/24 13:14 Oxygen Delivery Method Room Air 08/26/24 13:14 Vital Signs Temperature 98.1 F 08/26/24 13:14 Pulse Rate 90 08/26/24 13:14 Respiratory Rate 20 08/26/24 13:14 Blood Pressure 160/76 H 08/26/24 13:14 Pulse Oximetry 96 08/26/24 13:14 Oxygen Delivery Method Room Air 08/26/24 13:14 Temperature 98.1 F 08/26/24 13:14 Pulse Rate 90 08/26/24 13:14 Respiratory Rate 20 08/26/24 13:14 Blood Pressure 160/76 H 08/26/24 13:14 Pulse Oximetry 96 08/26/24 13:14 Oxygen Delivery Method Room Air 08/26/24 13:14 MDM - Epistaxis Lab Data Attestation: I reviewed the patient's lab results. Labs: Lab Results 08/26/24 Range/Units 13:35 WBC 7.95 (4.50-11.00) K/uL RBC 4.14 (4.00-5.20) m/uL Hgb 12.7 (12.0-16.0) gm/dL Hct 39.9 (33.0-51.0) % MCV 96 (80-100) fL MCH 31 (26-34) pg MCHC 32 (32-36) gm/dL RDW Coeff of Traci 14.4 (11.5-15.5) % Plt Count 233 (140-440) K/uL Neut % (Auto) 91.3 H (42.0-72.0) % Lymph % (Auto) 4.7 L (20-44) % [place] % (Auto) 2.5 (0.0-11.0) % Eos % (Auto) 0.0 (0.0-7.0) % Baso % (Auto) 0.1 (0.0-3.0) % Neut # (Auto) 7.30 H (1.7-7.0) K/uL Lymph # (Auto) 0.40 L (0.90-2.90) K/uL [place] # (Auto) 0.20 (0.00-0.90) K/UL Eos # (Auto) 0.00 (0.00-0.50) K/uL Baso # (Auto) 0.01 (0.00-0.30) K/uL Abs Immat Gran (auto) 0.11 (0.00-0.30) K/uL Imm/Tot Granulo (auto) 1.4 % INR 2.18 H (0.91-1.10) Discharge Plan Discharge Clinical Impression: Epistaxis Patient Disposition: Home, Self-Care Condition: Stable Instructions: Nosebleed (ED) Additional Instructions: Protime was 2.18 today. Please let your clinic know this result tomorrow. Leave packing in place. You may get some dripping from your nose, this is normal. If you have jackeline bleeding that is going around the packing or draining down your throat, return to the ER for further evaluation. Please call the clinic tomorrow in [place] to get scheduled with ENT on Tuesday, Dr. Joel has his scheduling done through the [facility], number is [phone]. Please let them know that we really need you to be seen on Tuesday as you have packing in and due to her multiple antibiotic allergies, you are not on 1. Activity Level: No strenuous activity Prescriptions: No Action calcium carbonate 600 mg calcium (1,500 mg) tablet 600 mg PO DAILY Qty: 90 4RF lorazepam 0.5 mg tablet 0.25 - 0.5 mg PO DAILY PRN (Reason: anxiety) Qty: 5 0RF Rx Instructions: 5 tablets must last one year levothyroxine 112 mcg tablet 112 mcg PO .COMPLEX Patient Comments: SKIP TUESDAY Rx Instructions: 112 mcg orally x 6 days/week; multivitamin Tablet 1 tab PO DAILY Lactobacillus acidophilus 1 billion cell capsule 10 mg PO DAILY betamethasone, augmented 0.05 % cream 1 applic topical DAILY PRN diltiazem HCl 240 mg capsule,extended release 24hr 240 mg PO DAILY Gemtesa 75 mg tablet 75 mg PO DAILY clopidogrel 75 mg tablet 75 mg PO DAILY fosfomycin tromethamine 3 gram packet 1 packet PO Q3D PRN (Reason: bladder infections) Qty: 2 6RF fosfomycin tromethamine 3 gram packet 1 packet PO Q3D PRN (Reason: bladder infections) Qty: 2 6RF acetaminophen 500 mg capsule 500 - 1,000 mg PO Q6H MDD 4000mg per day PRN (Reason: pain) Qty: 100 0RF clobetasol 0.05 % ointment 1 g topical 2XW PRN (Reason: lichen sclerosis) omeprazole 40 mg capsule,delayed release(DR/EC) 40 mg PO DAILY triamcinolone acetonide 0.1 % cream 1 applic topical BID PRN (Reason: rash) Qty: 80 1RF pilocarpine HCl 5 mg tablet 5 mg PO TID Qty: 270 4RF gabapentin 6%/ketamine 8%/liodcaine 2.5% liposomal cream with baclofen 2% cream See Rx Instructions topical .four time daily PRN (Reason: pain) Qty: 60 0RF Rx Instructions: ONE APPLICATION topically FOUR TIME DAILY PRN; hand faxed rx to [facility] [phone] 60 grams with 1 refill sent to scanning furosemide 20 mg tablet 20 mg PO BID PRN (Reason: edema) Qty: 180 0RF Prolia 60 mg/mL syringe 60 mg subcut [id number] Qty: 1 0RF prednisone 10 mg tablet 10 mg PO Q OTHER DAY Qty: 45 3RF warfarin 2.5 mg tablet 1.25 - 2.5 mg PO DAILY Qty: 90 0RF Protocol: Dose Management Condition: Tuesday Dose/Route: 2.5 mg Instruction: 1 x 2.5 mg tablet Condition: Tuesday Dose/Route: 2.5 mg Instruction: 1 x 2.5 mg tablet Condition: Tuesday Dose/Route: 2.5 mg Instruction: 1 x 2.5 mg tablet Condition: Tuesday Dose/Route: 2.5 mg Instruction: 1 x 2.5 mg tablet Condition: Dose/Route: 2.5 mg Instruction: 1 x 2.5 mg tablet Condition: Tuesday Dose/Route: 2.5 mg Instruction: 1 x 2.5 mg tablet Condition: Tuesday Dose/Route: 2.5 mg Instruction: 1 x 2.5 mg tablet Protocol Text: Adjustment Start Date: Tuesday08/20/24 INR Value: 2.7 INR Date: 08/20/24 Recheck Date: 08/27/24 Rx Instructions: Take 1.25 mg on Tuesday/Tuesday and 2.5 mg ROW sennosides [Senna Lax] 8.6 mg tablet 8.6 mg PO BID PRN (Reason: constipation) Qty: 180 1RF nitrofurantoin macrocrystal 100 mg capsule 100 mg PO BID Qty: 14 0RF Rx Instructions: must administer with a meal/food Follow Up/Referrals: Jose Napier PA-C [Primary Care Provider] - Stand Alone Forms: [facility] Info Instructions
--- OUTSIDE RECORDS SUMMARY | 2024-08-26 13:37 | XMS_ITS | Clinical Summary ---
Author Organization [facility] Address [address] [place] [id number] Care Team Providers Care Government Guard Name Role Phone Kd Restrepo MD Unavailable [phone] Jose Napier PANettieC Primary Care Provider [phone] Charlotte Smith MD Unavailable [phone] Charlotte Anderson MD Unavailable [phone] Allergies Active Allergy Reactions Criticality Noted Date Comments Amoxicillin 01/19/2007 Aspirin Rash,Itching 01/20/2006 Atorvastatin Myalgia 12/27/2014 Blood-Group Specific Substance Other - Describe In Comment Field High 09/01/2016 Patient has Anti-D. Blood product orders may be delayed. Draw one red top and two purple top tubes for all Type and Screen/Type and Crossmatch orders. 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) 08/22/2024 Travel 08/18/2024 Travel 06/22/2024 Telephone [facility] [address] [place] [address] Adelaide Eid MD Results 06/21/2024 8:44 AM YARN SPINNER - 06/21/2024 11:01 AM YARN SPINNER Hospital Encounter [facility] [address] [place] [address] Adelaide Eid MD Olson, Jeffrey John, MD Nonrheumatic mitral valve regurgitation Discharge Disposition: Home Self Care 06/21/2024 Travel 06/18/2024 Telephone [facility] [address] [facility] [address] [place] [address] Adelaide Eid MD Pre Procedure 06/08/2024 10:30 AM YARN SPINNER Office Visit [facility] [address] [place] [address] Adelaide Eid MD Follow Up 06/07/2024 Travel from Last 3 Months Immunizations Name Administration Dates Next Due AMB INFLUENZA IIV3 (AGE 65+ YRS) PF (Flu Clinic Only) 03/23/2017 AMB Influenza, IIV3 (Age >=3 years) Preserve Free (Flu Clinic Only) 04/08/2009 AMB Influenza, IIV3 (Age >=3 years)(Flu Clinic Only) 04/06/2013,04/16/2011,04/24/2008 COVID-19 vaccine (Intermedia NTPlum 30mcg/0.3mL) PF, MDV 09/02/2020,08/12/2020 Influenza A (H1N1), [...] on file Legal Sex Female 5:25 AM YARN SPINNER Gender Identity Not on file Sexual Orientation [...] Comments Blood Pressure 186/81 08/22/2024 11:03 AM YARN SPINNER right arm normal high Pulse 66 08/22/2024 11:03 AM YARN SPINNER Temperature 36.4 C (97.6 F) 06/21/2024 9:38 AM YARN SPINNER Respiratory Rate 14 06/21/2024 10:3 1 AM YARN SPINNER Oxygen Saturation 100% 08/22/2024 11: 03 AM YARN SPINNER Inhaled Oxygen Concentration - - Weight 57.6 kg (126 lb 15.8 oz) 08/22/2024 11:01 AM YARN SPINNER Height 149.9 cm (4' 11.02) 08/22/2024 11:01 AM YARN SPINNER Body Mass Index 25.63 08/22/2024 11:01 AM YARN SPINNER Plan of Treatment Upcoming Encounters Date Type Department Care Team (Late st Contact Info) Description 08/30/2024 10:00 AM YARN SPINNER Office Visit [facility] [address] [address] [place], [place] [id number] [place] [address] [facility] [place], [place] [id number] Health Maintenance Due Date Last Done Comments [...] history exists Medical Devices Implanted Type Area Bottom Saw Operator Device Identifier Shelf Expiration Date Model / Serial / Lot Lead Kit 4.32mm Spacing 28cm Length Interstim - [id number] Implanted:Qty: 1 on 04/01/2020 by Charlotte Smith MD at [facility] N/A: Sacrum [employer] Pain Therapy 09/30/2021 [id number] / / [id number] Stimulator 7.7mm 14cc Interstim Ii - [id number] Implanted:Qty: 1 on 04/01/2020 by Charlotte Smith MD at [facility] N/A: Sacrum [employer] Pain Therapy 03/31/2021 [id number]# / [id number] / Description:PIN [id number] Procedures Procedure Name Priority Date/Time Associated Diagnosis Comments US ARTERIAL LOWER EXTREMITY BILATERAL Routine 08/22/2024 10:16 AM YARN SPINNER 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) US ANKLE BRACHIAL INDEX BILATERAL Routine 08/22/2024 10:15 AM YARN SPINNER 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) ECHO VICTOR M WO CONTRAST W COLOR W LTD DOPPLER Routine 06/21/2024 11:15 AM YARN SPINNER Nonrheumatic mitral valve regurgitation XR DXA BONE DENSITY 2 SITES AXIAL Routine 07/02/2019 11:48 AM YARN SPINNER Osteopenia of multiple sites from Last 3 Months or Most Recently Relevant to Health Maintenance Results * US ARTERIAL LOWER EXTREMITY BILATERAL (08/22/2024 10:16 AM YARN SPINNER) Anatomical Region Laterality Modality LEGS, LEG L, LEG R Ultrasound 08/22/2024 8:16 AM YARN SPINNER Narrative 08/22/2024 1:05 PM YARN SPINNER VASCULAR ULTRASOUND REPORT RODERICK HEATON : 1940 Study Date: 08/22/2024 8:16:13 AM Age: 84 years Tech: LMS/EMS Gender: F Referring MD: MARCUS CARRILLO Site: [facility] Study performed: Lower extremity duplex US. [...] +--------+-----+ EIA DST 91 +--------+ + +--------+-----+ CORRECTIONS CASEWORKER DST 98 +--------+ + +--------+-----+ PFA 133 +--------+ + +--------+-----+ SFA PRX 109 +--------+ + +--------+-----+ SFA MID 56 +--------+ + +--------+-----+ SFA DST 397 51 75-99% 7.8 +--------+ + +--------+-----+ COLLIN PRX 89 +--------+ + +--------+-----+ COLLIN DST 41 +--------+ + +--------+-----+ TPT 160 41 50-74% 3.9 +--------+ + +--------+-----+ PRE SALES ARCHITECT DST 55 +--------+ + +--------+-----+ LAXMI PRX 46 +--------+ + +--------+-----+ LAXMI DST -21 +--------+ + +--------+-----+ DPA 115 75-99% 4.6 +--------+ + +--------+-----+ +--------+ + LEFT Velocity cm/s +--------+ + EIA DST 110 +--------+ + CORRECTIONS CASEWORKER DST 104 +--------+ + PFA 76 +--------+ + SFA PRX 93 +--------+ + SFA MID 92 +--------+ + SFA DST 74 +--------+ + COLLIN PRX 80 +--------+ + COLLIN DST 46 +--------+ + TPT 72 +--------+ + PRE SALES ARCHITECT DST 17 +--------+ + LAXMI PRX 65 [...] Accreditation Commission (IAC/Vascular), [email or web address] Report generated by [employer]. Final Procedure Note Wang Dela Cruz MD - 08/22/2024 VASCULAR ULTRASOUND REPORT RODERICK HEATON : 1940 Study Date: 08/22/2024 8:16:13 AM Age: 84 years Tech: LMS/EMS Gender: F Referring MD: MARCUS CARRILLO Site: [facility] Study performed: Lower extremity duplex US. [...] +--------+-----+ EIA DST 91 +--------+ + +--------+-----+ CORRECTIONS CASEWORKER DST 98 +--------+ + +--------+-----+ PFA 133 +--------+ + +--------+-----+ SFA PRX 109 +--------+ + +--------+-----+ SFA MID 56 +--------+ + +--------+-----+ SFA DST 397 51 75-99% 7.8 +--------+ + +--------+-----+ COLLIN PRX 89 +--------+ + +--------+-----+ COLLIN DST 41 +--------+ + +--------+-----+ TPT 160 41 50-74% 3.9 +--------+ + +--------+-----+ PRE SALES ARCHITECT DST 55 +--------+ + +--------+-----+ LAXMI PRX 46 +--------+ + +--------+-----+ LAXMI DST -21 +--------+ + +--------+-----+ DPA 115 75-99% 4.6 +--------+ + +--------+-----+ +--------+ + LEFT Velocity cm/s +--------+ + EIA DST 110 +--------+ + CORRECTIONS CASEWORKER DST 104 +--------+ + PFA 76 +--------+ + SFA PRX 93 +--------+ + SFA MID 92 +--------+ + SFA DST 74 +--------+ + COLLIN PRX 80 +--------+ + COLLIN DST 46 +--------+ + TPT 72 +--------+ + PRE SALES ARCHITECT DST 17 +--------+ + LAXMI PRX 65 [...] theIntersocietal Accreditation Commission (IAC/Vascular),[email or web address] Report generated by [employer]. Final us Marcus WILLS US Final Resu lt * US ANKLE BRACHIAL INDEX BILATERAL (08/22/2024 10:15 AM YARN SPINNER) Anatomical Region Laterality Modality ANKLES, ANKLE L, ANKLE R Ultraso und 08/22/2024 8:31 AM YARN SPINNER Narrative 08/22/2024 12:32 PM YARN SPINNER VASCULAR ULTRASOUND REPORT RODERICK HEATON : 1940 Study Date: 08/22/2024 8:31:24 AM Age: 84 years Tech: LMS Gender: F Referring MD: MARCUS CARRILLO Site: [facility] Study performed: Lower extremity resting [...] 190 Index +-----+ +--------+ +-----+ 1.18 226 PRE SALES ARCHITECT 162 0.84 +-----+ +--------+ +-----+ 1.14 218 DPA 214 1.11 +-----+ +--------+ +-----+ 0.60 116 Digit 1 136 0.71 +-----+ +--------+ +-----+ Wang Dela Cruz MD. Electronically signed on 08/22/2024 12:32:38 PM This study was performed and interpreted by a service accredited by the Intersocietal Accreditation Commission (IAC/Vascular), [email or web address] Report generated by [employer]. Final Procedure Note Wang eDla Cruz MD - 08/22/2024 VASCULAR ULTRASOUND REPORT RODERICK HEATON : 1940 Study Date: 08/22/2024 8:31:24 AM Age: 84 years Tech: LMS Gender: F Referring MD: MARCUS CARRILLO Site: [facility] Study performed: Lower extremity resting [...] 190 Index +-----+ +--------+ +-----+ 1.18 226 PRE SALES ARCHITECT 162 0.84 +-----+ +--------+ +-----+ 1.14 218 DPA 214 1.11 +-----+ +--------+ +-----+ 0.60 116 Digit 1 136 0.71 +-----+ +--------+ +-----+ Wang Dela Cruz MD. Electronically signed on 08/22/2024 12:32:38 PM This study was performed and interpreted by a service accredited by theIntersocietal Accreditation Commission (IAC/Vascular),[email or web address] Report generated by [employer]. Final us Marcus WILLS US Final Resu lt * ECHO VICTOR M WO CONTRAST W COLOR W LTD DOPPLER (06/21/2024 11:15 AM YARN SPINNER) EJECTION FRACTION 55-60% PROSOLV Anatomical Region Laterality Modality Ultrasound, Ultr asound, Other 06/21/2024 9:54 AM YARN SPINNER Narrative 06/21/2024 12:23 [place] [address] Main: [email or web address] Transesophageal Echo Report RODERICK HEATON Aysha ID: [id number] Age: 83 : 1940 Ordering Provider: ADELAIDE EID Exam Date: 06/21/2024 09:54 Gender: F Curriculum And Assessment Director: RES Height: 59 in BSA: 1.54 m [...] Aortic Root ZScore: -0.94 David Montana MD [facility] Accredited Site (Electronically Signed) Final Date: 21 June 2024 12:22 Amended: 21 June 2024 12:25 ICD-10 Codes: I34.0 Procedure Note David Montana MD - 06/21/2024 [place] [address] Main: [email or web address] Trans[facility] Echo Report RODERICK HEATON Namrussell ID: [id number] Age: 83 : 1940 Ordering Provider:ADELAIDE EID Exam Date: 06/21/2024 09:54 Gender: F Curriculum And Assessment Director: RES Height: 59 in BSA: 1.54 m [...] Aortic Root ZScore: -0.94 David Montana MD [facility] Accredited Site (Electronically Signed) Final Date: 21 June 2024 12:22 Amended: 21 June 2024 12:25 ICD-10 Codes: I34.0 Adelaide Eid MD ECHO ORD Edited R esult - Final * (ABNORMAL) XR DXA BONE DENSITY 2 SITES AXIAL (07/02/2019 11:48 AM YARN SPINNER) Anatomical Region Laterality Modality Spine, HIPS, HIPL, HIPR Other Narrative 07/06/2019 11:01 AM YARN SPINNER Please see scanned document for results of this study. 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
[2024-08-26 13:57] LABS: INR 2.18 (0.91-1.10); Prothrombin Time 25.4 Seconds
[2024-08-26 14:03] LABS: Basophils Absolute Auto 0.01 K/uL (0.00-0.30); Basophils Percent Auto 0.1 % (0.0-3.0); Hematocrit 39.9 % (33.0-51.0); Hemoglobin* 12.7 gm/dL (12.0-16.0); Immature Granulocytes Abs Auto 0.11 K/uL (0.00-0.30); Immature Granulocytes Pct Auto 1.4 %; Lymphocytes Percent Auto 4.7 % (20-44); Mean Corpuscular HGB Conc 32 gm/dL (32-36); Mean Corpuscular Hemoglobin 31 pg (26-34); Mean Corpuscular Volume 96 fL (80-100); Monocytes Percent Auto 2.5 % (0.0-11.0); Neutrophils Percent Auto 91.3 % (42.0-72.0); Platelet Count* 233 K/uL (140-440); RDW Coefficient of Variation % 14.4 % (11.5-15.5); Red Blood Count 4.14 m/uL (4.00-5.20); White Blood Count* 7.95 K/uL (4.50-11.00)
[2024-08-26 14:05] LABS: Slide Review Reflex No
== END 2024-08-26 14:32 | disposition home or self-care (01) ==
PROVIDERS: Emergency Provider Family Medicine; PCP Physician Assistant Medical
DX: R04.0 Epistaxis (principal)
CPT/HCPCS: 30901; 36415; 85025; 85610; 99283

== ENCOUNTER 2024-08-26 20:43 | Emergency (ER) | payer OTHER, SELFPAY ==
--- OUTSIDE RECORDS SUMMARY | 2024-08-26 20:46 | XMS_ITS | Clinical Summary ---
Author Organization [facility] Address [address] [place] [address] Care Team Providers Care Income Tax Advisor Name Role Phone Kd Restrepo MD Unavailable [phone] Jose Napier PANettieC Primary Care Provider [phone] Charlotte Smith MD Unavailable [phone] Charlotte Anderson MD Unavailable [phone] Allergies Active Allergy Reactions Criticality Noted Date Comments Amoxicillin 01/19/2007 Aspirin Rash,Itching 01/20/2006 Atorvastatin Myalgia 12/27/2014 Blood-Group Specific Substance Other - Describe In Comment Field High 09/01/2016 Patient has Anti-D. Blood product orders may be delayed. Draw one red top and two purple top tubes for all Type and Screen/Type and Crossmatch orders. R-Voiw-Miilixqrx-Propol-Eld erb *Unknown 02/28/2024 Ciprofloxacin Rash 05/31/2012 Clindamycin [...] Problem Noted Date Diagnosed Date Atherosclerosis of cahto ar teries of left leg with ulceration of ankle 05/04/2024 AMD (age-related macular degeneration), bilatera l 02/18/2022 Mitral valve insufficiency 01/25/2020 Mitral valve prolapse 01/25/2020 SOB (shortness of breath) 01/25/2020 Fatigue 01/25/2020 snf current use of systemic steroids 09/27 Prediabetes [...] Date Anticoagulation monitoring, INR range 2-3 [Z79.01]; [place] Target 2.5-3.0 12/06/2016 1 Pessary maintenance 02/25/2016 09/28/19 20 Anticoagulation monitoring, goal range 2.0-2.6 09/19/2013 01/09/2018 Abnormal stress test 11/17/2010 011 Routine general medical exam ination at a health care facility 07/12/2009 09/28/2019 Overview (12/06/2012): Normal CT angiogram 11/2010 Hip pain 05/06/2008 07/09/2009 Onychomycosis 05/06/2008 08/27/2008 HX OF VENOUS THROMBOSIS AND EMBOLISM 11/09/2006 12/06/2012 Bilateral pulmonary embolism 10/11/2006 11/18/2017 AFTERCARE, LONG-TERM USE, TN DICATIONS NEC-PLAQUENIL 10/22/2003 Encounters Date Type Department Care Team Description 08/22/2024 11:00 AM ON LINE CSR Office Visit [facility] [address] [place] [address] Follow Up ( s/p LLE angio) 08/22/2024 8:09 AM ON LINE CSR - 08/22/2024 11:59 PM ON LINE CSR Hospital Encounter [facility] [address] [place] [address] Marcus Carrillo PA Atherosclerosis of cahto arteries of left leg with ulceration of ankle (HC) 08/22/2024 Travel 08/18/2024 Travel 06/22/2024 Telephone [facility] [address] [place] [address] Adelaide Eid MD Results 06/21/2024 8:44 AM ON LINE CSR - 06/21/2024 11:01 AM ON LINE CSR Hospital Encounter [facility] [address] [place] [address] Adelaide Eid MD Olson, Jeffrey John, MD Nonrheumatic mitral valve regurgitation Discharge Disposition: Home Self Care 06/21/2024 Travel 06/18/2024 Telephone [facility] [address] [facility] [address] [place] [address] Adelaide Eid MD Pre Procedure 06/08/2024 10:30 AM ON LINE CSR Office Visit [facility] [address] [place] [address] Adelaide Eid MD Follow Up 06/07/2024 Travel from Last 3 Months Immunizations Name Administration Dates Next Due AMB INFLUENZA IIV3 (AGE 65+ YRS) PF (Flu Clinic Only) 03/23/2017 AMB Influenza, IIV3 (Age >=3 years) Preserve Free (Flu Clinic Only) 04/08/2009 AMB Influenza, IIV3 (Age >=3 years)(Flu Clinic Only) 04/06/2013,04/16/2011,04/24/2008 COVID-19 vaccine ([employer] NTRachio 30mcg/0.3mL) PF, MDV 09/02/2020,08/12/2020 Influenza A (H1N1), [...] on file Legal Sex Female 5:25 AM ON LINE CSR Gender Identity Not on file Sexual Orientation [...] Comments Blood Pressure 186/81 08/22/2024 11:03 AM ON LINE CSR right arm normal high Pulse 66 08/22/2024 11:03 AM ON LINE CSR Temperature 36.4 C (97.6 F) 06/21/2024 9:38 AM ON LINE CSR Respiratory Rate 14 06/21/2024 10:3 1 AM ON LINE CSR Oxygen Saturation 100% 08/22/2024 11: 03 AM ON LINE CSR Inhaled Oxygen Concentration - - Weight 57.6 kg (126 lb 15.8 oz) 08/22/2024 11:01 AM ON LINE CSR Height 149.9 cm (4' 11.02) 08/22/2024 11:01 AM ON LINE CSR Body Mass Index 25.63 08/22/2024 11:01 AM ON LINE CSR Plan of Treatment Upcoming Encounters Date Type Department Care Team (Late st Contact Info) Description 08/30/2024 10:00 AM ON LINE CSR Office Visit [facility] [address] [place], [place] [phone] [place] [address] [facility] [place], [place] [phone] Health Maintenance Due Date Last Done Comments [...] history exists Medical Devices Implanted Type Area Quad Stayer Device Identifier Shelf Expiration Date Model / Serial / Lot Lead Kit 4.32mm Spacing 28cm Length Interstim - [id number] Implanted:Qty: 1 on 04/01/2020 by Charlotte Smith MD at [facility] N/A: Sacrum [employer] Pain Therapy 09/30/2021 [id number] / / [id number] Stimulator 7.7mm 14cc Interstim Ii - [id number] Implanted:Qty: 1 on 04/01/2020 by Charlotte Smith MD at [facility] N/A: Sacrum [employer] Pain Therapy 03/31/2021 [id number]# / [id number] / Description:PIN [id number] Procedures Procedure Name Priority Date/Time Associated Diagnosis Comments US ARTERIAL LOWER EXTREMITY BILATERAL Routine 08/22/2024 10:16 AM ON LINE CSR Atherosclerosis of cahto arteries of left leg with ulceration of ankle (HC) US ANKLE BRACHIAL INDEX BILATERAL Routine 08/22/2024 10:15 AM ON LINE CSR Atherosclerosis of cahto arteries of left leg with ulceration of ankle (HC) ECHO VICTOR M WO CONTRAST W COLOR W LTD DOPPLER Routine 06/21/2024 11:15 AM ON LINE CSR Nonrheumatic mitral valve regurgitation XR DXA BONE DENSITY 2 SITES AXIAL Routine 07/02/2019 11:48 AM ON LINE CSR Osteopenia of multiple sites from Last 3 Months or Most Recently Relevant to Health Maintenance Results * US ARTERIAL LOWER EXTREMITY BILATERAL (08/22/2024 10:16 AM ON LINE CSR) Anatomical Region Laterality Modality LEGS, LEG L, LEG R Ultrasound 08/22/2024 8:16 AM ON LINE CSR Narrative 08/22/2024 1:05 PM ON LINE CSR VASCULAR ULTRASOUND REPORT RODERICK HEATON : 1940 Study Date: 08/22/2024 8:16:13 AM Age: 84 years Tech: LMS/EMS Gender: F Referring MD: MARCUS CARRILLO Site: [facility] Study performed: Lower extremity duplex US. [...] +--------+-----+ EIA DST 91 +--------+ + +--------+-----+ CULINARY DIRECTOR DST 98 +--------+ + +--------+-----+ PFA 133 +--------+ + +--------+-----+ SFA PRX 109 +--------+ + +--------+-----+ SFA MID 56 +--------+ + +--------+-----+ SFA DST 397 51 75-99% 7.8 +--------+ + +--------+-----+ COLLIN PRX 89 +--------+ + +--------+-----+ COLLIN DST 41 +--------+ + +--------+-----+ TPT 160 41 50-74% 3.9 +--------+ + +--------+-----+ HOD CARRIER DST 55 +--------+ + +--------+-----+ LAXMI PRX 46 +--------+ + +--------+-----+ LXAMI DST -21 +--------+ + +--------+-----+ DPA 115 75-99% 4.6 +--------+ + +--------+-----+ +--------+ + LEFT Velocity cm/s +--------+ + EIA DST 110 +--------+ + CULINARY DIRECTOR DST 104 +--------+ + PFA 76 +--------+ + SFA PRX 93 +--------+ + SFA MID 92 +--------+ + SFA DST 74 +--------+ + COLLIN PRX 80 +--------+ + COLLIN DST 46 +--------+ + TPT 72 +--------+ + HOD CARRIER DST 17 +--------+ + LAXMI PRX 65 [...] Accreditation Commission (IAC/Vascular), [email or web address] Report generated by [employer]. Final Procedure Note Wang Dela Cruz MD - 08/22/2024 VASCULAR ULTRASOUND REPORT RODERICK HEATON : 1940 Study Date: 08/22/2024 8:16:13 AM Age: 84 years Tech: LMS/EMS Gender: F Referring MD: MARCUS CARRILLO Site: [facility] Study performed: Lower extremity duplex US. [...] +--------+-----+ EIA DST 91 +--------+ + +--------+-----+ CULINARY DIRECTOR DST 98 +--------+ + +--------+-----+ PFA 133 +--------+ + +--------+-----+ SFA PRX 109 +--------+ + +--------+-----+ SFA MID 56 +--------+ + +--------+-----+ SFA DST 397 51 75-99% 7.8 +--------+ + +--------+-----+ COLLIN PRX 89 +--------+ + +--------+-----+ COLLIN DST 41 +--------+ + +--------+-----+ TPT 160 41 50-74% 3.9 +--------+ + +--------+-----+ HOD CARRIER DST 55 +--------+ + +--------+-----+ LAXMI PRX 46 +--------+ + +--------+-----+ LAXMI DST -21 +--------+ + +--------+-----+ DPA 115 75-99% 4.6 +--------+ + +--------+-----+ +--------+ + LEFT Velocity cm/s +--------+ + EIA DST 110 +--------+ + CULINARY DIRECTOR DST 104 +--------+ + PFA 76 +--------+ + SFA PRX 93 +--------+ + SFA MID 92 +--------+ + SFA DST 74 +--------+ + COLLIN PRX 80 +--------+ + COLLIN DST 46 +--------+ + TPT 72 +--------+ + HOD CARRIER DST 17 +--------+ + LAXMI PRX 65 [...] theIntersocietal Accreditation Commission (IAC/Vascular),[email or web address] Report generated by [employer]. Final us Marcus WILLS US Final Resu lt * US ANKLE BRACHIAL INDEX BILATERAL (08/22/2024 10:15 AM ON LINE CSR) Anatomical Region Laterality Modality ANKLES, ANKLE L, ANKLE R Ultraso und 08/22/2024 8:31 AM ON LINE CSR Narrative 08/22/2024 12:32 PM ON LINE CSR VASCULAR ULTRASOUND REPORT RODERICK HEATON : 1940 Study Date: 08/22/2024 8:31:24 AM Age: 84 years Tech: LMS Gender: F Referring MD: MARCUS CARRILLO Site: [facility] Study performed: Lower extremity resting MINOR, [...] 190 Index +-----+ +--------+ +-----+ 1.18 226 HOD CARRIER 162 0.84 +-----+ +--------+ +-----+ 1.14 218 DPA 214 1.11 +-----+ +--------+ +-----+ 0.60 116 Digit 1 136 0.71 +-----+ +--------+ +-----+ Wang Dela Cruz MD. Electronically signed on 08/22/2024 12:32:38 PM This study was performed and interpreted by a service accredited by the Intersocietal Accreditation Commission (IAC/Vascular), [email or web address]/vascular Report generated by [employer]. Final Procedure Note Wang Dela Cruz MD - 08/22/2024 VASCULAR ULTRASOUND REPORT RODERICK HEATON : 1940 Study Date: 08/22/2024 8:31:24 AM Age: 84 years Tech: LMS Gender: F Referring MD: MARCUS CARRILLO Site: [facility] Study performed: Lower extremity resting MINOR, [...] 190 Index +-----+ +--------+ +-----+ 1.18 226 HOD CARRIER 162 0.84 +-----+ +--------+ +-----+ 1.14 218 DPA 214 1.11 +-----+ +--------+ +-----+ 0.60 116 Digit 1 136 0.71 +-----+ +--------+ +-----+ Wang Dela Cruz MD. Electronically signed on 08/22/2024 12:32:38 PM This study was performed and interpreted by a service accredited by theIntersocietal Accreditation Commission (IAC/Vascular),[email or web address] Report generated by [employer]. Final us Marcus WILLS US Final Resu lt * ECHO VICTOR M WO CONTRAST W COLOR W LTD DOPPLER (06/21/2024 11:15 AM ON LINE CSR) EJECTION FRACTION 55-60% PROSOLV Anatomical Region Laterality Modality Ultrasound, Ultr asound, Other 06/21/2024 9:54 AM ON LINE CSR Narrative 06/21/2024 12:23 [place] [address] Main: [email or web address] Transesophageal Echo Report RODERICK HEATON Aysha ID: [id number] Age: 83 : 1940 Ordering Provider: ADELAIDE EID Exam Date: 06/21/2024 09:54 Gender: F Roll Skinner: RES Height: 59 in BSA: 1.54 m [...] Aortic Root ZScore: -0.94 David Montana MD [facility] Accredited Site (Electronically Signed) Final Date: 21 June 2024 12:22 Amended: 21 June 2024 12:25 ICD-10 Codes: I34.0 Procedure Note David Montana MD - 06/21/2024 [place] [address] Main: [email or web address] Transesophageal Echo Report RODERICK HEATON Namrussell ID: [id number] Age: 83 : 1940 Ordering Provider:ADELAIDE EID Exam Date: 06/21/2024 09:54 Gender: F Roll Skinner: RES Height: 59 in BSA: 1.54 m [...] Aortic Root ZScore: -0.94 David Montana MD [facility] Accredited Site (Electronically Signed) Final Date: 21 June 2024 12:22 Amended: 21 June 2024 12:25 ICD-10 Codes: I34.0 Adelaide Eid MD ECHO ORD Edited R esult - Final * (ABNORMAL) XR DXA BONE DENSITY 2 SITES AXIAL (07/02/2019 11:48 AM ON LINE CSR) Anatomical Region Laterality Modality Spine, HIPS, HIPL, HIPR Other Narrative 07/06/2019 11:01 AM ON LINE CSR Please see scanned document for results of this study. 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
[2024-08-26 20:47] VITALS: BP 178/67; PULSE 90; RESP 20; TEMP 36.6; O2SAT 95; BMI 24.2
--- NOTE | 2024-08-26 21:13 | ED_ITS ---
HPI - General Adult General Date Seen: 08/26/24 Chief complaint: Epistaxis/Nosebleed Stated complaint: Nose bleed back Time Seen by Provider: 08/26/24 21:13 History of Present Illness HPI narrative: It 84-year-old female presenting to the ER today with concern for nose bleed. She is on Plavix for peripheral artery disease with recent stent placement in her leg. She is on Coumadin for history of DVT/PE. INR today was 2.18. She was seen in the ER 2 days ago on 08/24 for nose bleed and bleeding stopped after administration of Afrin. He a she was seen in the ER earlier today by Dr. Pena. Per those notes she had bleeding come out of both nostrils starting at about 11 30 this morning. In the ER she seemed to be bleeding primarily from the left nostril. CBC showed a hemoglobin of 12.7, white count of 7.9, platelet count 233. Merocel was placed. Bleeding was controlled. This evening at home she was sitting and talking on the phone when she had recurrent bleeding from her left nostril and also some bleeding on down the back of her throat. She tried to hold pressure on her left nostril it was not able to get it stopped for more than 1/2 hours so her son brought her back here to the ER. On the way here to ER bleeding actually did stop and she is now currently not bleeding. She still has dry blood in her mouth and some blood in the back of her throat. Related Data Home Medications ?Medication ?Instructions ?Recorded ?Confirmed Lactobacillus acidophilus 1 10 mg PO DAILY 04/15/22 07/12/24 billion cell capsule betamethasone, augmented 0.05 % 1 applic topical DAILY PRN 04/15/22 07/12/24 topical cream multivitamin 1 tab PO DAILY 04/15/22 07/12/24 clobetasol 0.05 % topical ointment 1 g topical 2XW PRN lichen 09/10/22 07/12/24 sclerosis vibegron 75 mg tablet (Gemtesa) 75 mg PO DAILY 03/24/23 07/12/24 diltiazem HCl 240 mg 240 mg PO DAILY 06/02/23 07/12/24 capsule,extended release 24 hr levothyroxine 112 mcg tablet 112 mcg PO .COMPLEX 11/03/23 07/12/24 omeprazole 40 mg capsule,delayed 40 mg PO DAILY 01/18/24 07/12/24 release clopidogrel 75 mg tablet 75 mg PO DAILY 05/10/24 07/12/24 Previous Rx's ?Medication ?Instructions ?Recorded calcium carbonate 600 mg PO DAILY #90 tabs 01/06/22 lorazepam 0.5 mg tablet 0.25 - 0.5 mg (0.5 - 1 x 0.5 mg) 01/06/22 PO DAILY PRN anxiety #5 tabs acetaminophen 500 mg capsule 500 - 1,000 mg (1 - 2 x 500 mg) PO 09/09/22 Q6H PRN pain #100 caps triamcinolone acetonide 0.1 % 1 applic topical BID PRN rash #80 05/05/23 topical cream grams pilocarpine HCl 5 mg tablet 5 mg PO TID #270 tabs 01/03/24 gabapentin 6%/ketamine See Rx Instructions topical .four 02/02/24 8%/liodcaine 2.5% liposomal cream time daily PRN pain #60 grams with baclofen 2% furosemide 20 mg tablet 20 mg PO BID PRN edema #180 tabs 04/02/24 fosfomycin tromethamine 3 gram 1 packet PO Q3D PRN bladder 05/10/24 oral packet infections 2 doses #2 ea denosumab 60 mg/mL subcutaneous 60 mg subcut [id number] #1 mL 06/06/24 syringe (Prolia) prednisone 10 mg tablet 10 mg PO Q OTHER DAY #45 tabs 06/11/24 warfarin 2.5 mg tablet 1.25 - 2.5 mg PO DAILY #90 tabs 06/12/24 sennosides 8.6 mg tablet (Senna 8.6 mg PO BID PRN constipation 07/08/24 Lax) #180 tabs fosfomycin tromethamine 3 gram 1 packet PO Q3D PRN bladder 07/09/24 oral packet infections 2 doses #2 ea nitrofurantoin macrocrystal 100 mg 100 mg PO BID #14 caps 07/09/24 capsule Allergies Allergy/AdvReac Type Severity Reaction Status Date / Time sulindac Allergy Severe Difficulty Verified 07/12/24 13:10 Breathing tetracycline Allergy Intermediate Rash Verified 07/12/24 13:10 mirabegron Allergy Mild lost Verified 07/12/24 13:10 control of bladder amoxicillin Allergy Unknown Verified 07/12/24 13:10 aspirin Allergy Unknown Verified 07/12/24 13:10 atorvastatin Allergy Unknown Verified 07/12/24 13:10 cholecalciferol (vitamin D3) Allergy Unknown Verified 07/12/24 13:10 (From Vitamin D3) ciprofloxacin Allergy Unknown Verified 07/12/24 13:10 clindamycin Allergy Unknown Verified 07/12/24 13:10 hydrochlorothiazide Allergy Unknown Verified 07/12/24 13:10 losartan Allergy Unknown Verified 07/12/24 13:10 metoprolol Allergy Unknown Verified 07/12/24 13:10 naproxen Allergy Unknown Verified 07/12/24 13:10 Nitroimidazoles Allergy Unknown Verified 07/12/24 13:10 alendronate sodium Allergy Verified 07/12/24 13:10 estrogens, conjugated Allergy Verified 07/12/24 13:10 oxybutynin Allergy Verified 07/12/24 13:10 Penicillins Allergy Verified 07/12/24 13:10 Sulfa (Sulfonamide Allergy Rash Verified 07/12/24 13:10 Antibiotics) Quinolones AdvReac Intermediate bad Verified 07/12/24 13:10 arthritis flair tolterodine AdvReac Intermediate Headache Verified 07/12/24 13:10 cephalexin AdvReac Unknown Hives Verified 07/12/24 13:10 furosemide AdvReac Unknown Verified 07/12/24 13:10 [facility] Medical History History of vertebral compression fracture ?Z87.81 - Personal history of (healed) traumatic fracture (ICD-10) History of pulmonary embolism ?Z86.711 - Personal history of pulmonary embolism (ICD-10) 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 (ICD-10) Hypoxia ?R09.02 - Hypoxemia (ICD-10) Cellulitis ?L03.90 - Cellulitis, unspecified (ICD-10) Mitral valve insufficiency ?I34.0 - Nonrheumatic mitral (valve) insufficiency (ICD-10) Midline cystocele (09/01/16) ?N81.11 - Cystocele, midline (ICD-10) 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 ?Z79.52 - senior care (current) use of systemic steroids (ICD-10) Diverticular disease ?K57.90 - Diverticulosis of intestine, part unspecified, without perforation or abscess without bleeding (ICD-10) Surgical History 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) ?Z96.612 - Presence of left artificial shoulder joint (ICD-10) History of bladder surgery (~2020) ?Z98.890 - Other specified postprocedural states (ICD-10) 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) ?Z96.641 - Presence of right artificial hip joint (ICD-10) History of partial surgical removal of colon (08/23/02) ?Z90.49 - Acquired absence of other specified parts of digestive tract (ICD- 10) History of lumpectomy of right breast (1999) ?Z98.890 - Other specified postprocedural states (ICD-10) History of colonoscopy with polypectomy (03/2019) ?Z98.890 - Other specified postprocedural states (ICD-10) ?Z86.010 - Personal history of colonic polyps (ICD-10) History of carpal tunnel release of both wrists (~1989) ?Z98.890 - Other specified postprocedural states (ICD-10) History of bladder surgery (09/17/19) ?Z98.890 - Other specified postprocedural states (ICD-10) History of appendectomy ?Z90.49 - Acquired absence of other specified parts of digestive tract (ICD- 10) Family History Mother Cancer Heart failure Father Colon cancer Social History Narrative: She lives in [place] with her . Her has some dementia. He is currently home alone. Her son, Bahman, lives nearby. He is primary support and healthcare power of eeg technologist. Code status is full. does not use illicit drugs no history of alcohol use nonsmoker What is your current living situation?: I presently have a place to live Problems where you live: no known problems Problems where you live details: N/A In the past 12 months, utilities in danger of being shut off: no In past 12 months, lack of transportation kept you from medical appts, meetings, work, or getting things needed for daily living: no In the past 12 mos, have been you worried that your food would run out before you had money to buy more?: never true In the past 12 mos, the food you bought just didn't last and you didn't have money to buy more?: never true Highest level of school completed/degree received: high school graduate Smoking Status: Never smoker Do you use any of these nicotine containing products: None How often do you have a drink containing alcohol: monthly or less Alcohol type: wine How many standard drinks containing alcohol do you have on a typical day: 1 or 2 How often do you have six or more drinks on one occasion: Never AUDIT-C Alcohol total score: 1 Non-prescribed substance use: denies use Caffeine: Yes How often does anyone, including family, friends and others, physically hurt you : never How often does anyone, including family, friends and others, insult or talk down to you: never How often does anyone, including family, friends and others, threaten you with harm: never How often does anyone, including family, friends and others, scream or curse at you: never service: No Exam Narrative: Exam Narrative: Constitutional: Appears well-developed and well-nourished. Alert. Conversant. Non toxic. HENT: Head: Atraumatic. Nose: External Nose normal. She has a Merocel packing in her left nares. The Merocel packing is red with blood but there is no active anterior bleeding. There is no posterior or oropharyngeal bleeding in her oropharynx but she does have a lot of dry blood on her soft palate. I the patient rinse her mouth and drink some water and re-examination revealed no active bleeding. Right nares is normal Mouth/Throat: Oral mucosa is clear and moist. no trismus. Pharynx normal. Tonsils symmetric. No tonsillar enlargement, erythema, or exudate. Eyes: Conjunctivae normal. EOM normal. Pupils equal, round, and reactive to light. No scleral icterus. Neck: Normal range of motion. Neck supple. No tracheal deviation present. Cardiovascular: Normal rate, regular rhythm. Normal capillary refill. Skin is pink, warm, dry, well perfused Pulmonary/Chest: Effort normal. No stridor. No respiratory distress. Musculoskeletal: RUE: Normal range of motion. No tenderness. No deformity LUE: Normal range of motion. No tenderness. No deformity RLE: Normal range of motion. No edema. No tenderness. No deformity LLE: Normal range of motion. No edema. No tenderness. No deformity Neurological: Alert and oriented to person, place, and time. Normal strength. CN II-VII intact. No sensory deficit. GCS eye subscore is 4. GCS verbal subscore is 5. GCS motor subscore is 6. Normal coordination Skin: Skin is warm and dry. No rash noted. No pallor. Normal capillary refill. Psychiatric: Normal mood. Normal affect. Const: Vital Signs, click to edit/add: Vital Signs - 24 hr 08/26/24 20:47 Temperature 98 F Pulse Rate [Left P ulse Oximeter] 90 Respiratory Rate 20 Blood Pressure [Ri ght Upper Arm] 178/67 H Pulse Oximetry 95 Oxygen Delivery Me thod Room Air Course Course ED Course: Patient was observed here in the ER for several hours without any recurrent bleeding. Vital Signs Vital signs: Initial Vital Signs Temperature 98 F 08/26/24 20:47 Temperature Source Temporal Artery Scan 08/26/24 20:47 Pulse Rate 90 08/26/24 20:47 Pulse Rhythm Regular 08/26/24 20:47 Respiratory Rate 20 08/26/24 20:47 Blood Pressure 178/67 H 08/26/24 20:47 Blood Pressure Mean 104 08/26/24 20:47 Blood Pressure Position Sitting 08/26/24 20:47 Pulse Oximetry 95 08/26/24 20:47 Oxygen Delivery Method Room Air 08/26/24 20:47 Vital Signs Temperature 98 F 08/26/24 20:47 Pulse Rate 90 08/26/24 20:47 Respiratory Rate 20 08/26/24 20:47 Blood Pressure 178/67 H 08/26/24 20:47 Pulse Oximetry 95 08/26/24 20:47 Oxygen Delivery Method Room Air 08/26/24 20:47 Temperature 98 F 08/26/24 20:47 Pulse Rate 90 08/26/24 20:47 Respiratory Rate 20 08/26/24 20:47 Blood Pressure 178/67 H 08/26/24 20:47 Pulse Oximetry 95 08/26/24 20:47 Oxygen Delivery Method Room Air 08/26/24 20:47 Medications Administered Medications: Discontinued Medications Generic Name Dose Route Start Last Admin Trade Name Charli PRN Reason Stop Dose Admin Lidocaine HCl 15 ml 08/26/24 21:16 08/26/24 21:41 Lidocaine Viscous 2% 15 Ml Solution SWISH/SWAL 08/26/24 21:17 15 ml ONCE ONE Administration Lidocaine/Epinephrine 20 ml 08/26/24 21:16 08/26/24 21:41 Lidocaine 1%-Epi 1:100,000 INFILTRATI 08/26/24 21:17 20 ml ONCE ONE Administration Oxymetazoline HCl 1 spray 08/26/24 21:16 08/26/24 21:42 Oxymetazoline 0.05% Nasal [place] NOSTRIL-B 1 spray BID PRN Administration Silver Nitrate/Potassium Nitrate 1 each 08/26/24 21:16 08/26/24 21:41 Silver Nitrate Applicator 1 Each Stick..Ea. TOPICAL 08/26/24 21:17 1 each ONCE ONE Administration Tranexamic Acid 1,000 mg 08/26/24 21:16 08/26/24 21:42 Tranexamic Acid 100 Mg/Ml Inj TOPICAL 08/26/24 21:17 1,000 mg ONCE ONE Administration Medical Decision Making MDM Narrative Medical decision making narrative: Very pleasant 84-year-old female on Coumadin and Plavix (therapeutic INR earlier today) who returns to the ER today with nose bleeding from her left nostril. She has had multiple episodes of nose bleeding from that left nostril this week. She had Merocel packed in that left nostril earlier today in the ER but had an episode of recurrent bleeding at home. Fortunately bleeding was controlled before I evaluated here in the ER tonight. Options for managing the nose bleed at this point would be to keep the Merocel in place, which would be least painful and least invasive. We would also consider removing it to re-evaluate for any potential sites that could be cauterized and/or replacing the Merocel with a Rapid rhino inflatable pack. She is on warfarin with therapeutic INR earlier today. At this point would not reverse her warfarin because she is on it for DVT/PE and she would be at high risk for clots if it were stopped. She is on Plavix for peripheral artery disease with stents in her leg. At this point I would also continue to Plavix due to the risk of in stent thrombosis of we take her off that for the nose bleed. Earlier today her hemoglobin was normal. She did not have a dangerous amount of blood loss from the bleeding tonight and she is hemodynamically stable and not lightheaded or dizzy The patient is, understandably, worried about the recurrent nose bleeds. She was afraid to discharge home. However we did observe the patient here in the ER for several hours. She has no recurrent bleeding. Her son was able to return (after he took a trip to the airport to [place] a family member) and he will be able to be with her tonight if any recurrent nose bleeding occurs. Reviewed steps to take for recurrent nose bleeds and precautions for return to the ER She already has an appointment set up with ENT this week for re-evaluation and to remove her Merocel packing Discharge Plan Discharge Clinical Impression: Epistaxis Patient Disposition: Home, Self-Care Condition: Stable Instructions: Nosebleed (ED) Additional Instructions: As we discussed, if you have more episodes of nose bleeding, please try to hold pressure on the front part of your nose with your fingers or with a nose clamp for 10 minutes. If you have bleeding uncontrolled by that, continue to hold pressure and please come back to the ER. Please follow-up with the ENT doctor as scheduled. Continue your your regular medications Activity Level: No Restrictions Discharge Diet: Regular Prescriptions: No Action calcium carbonate 600 mg calcium (1,500 mg) tablet 600 mg PO DAILY Qty: 90 4RF lorazepam 0.5 mg tablet 0.25 - 0.5 mg PO DAILY PRN (Reason: anxiety) Qty: 5 0RF Rx Instructions: 5 tablets must last one year levothyroxine 112 mcg tablet 112 mcg PO .COMPLEX Patient Comments: SKIP TUESDAY Rx Instructions: 112 mcg orally x 6 days/week; multivitamin Tablet 1 tab PO DAILY Lactobacillus acidophilus 1 billion cell capsule 10 mg PO DAILY betamethasone, augmented 0.05 % cream 1 applic topical DAILY PRN diltiazem HCl 240 mg capsule,extended release 24hr 240 mg PO DAILY Gemtesa 75 mg tablet 75 mg PO DAILY clopidogrel 75 mg tablet 75 mg PO DAILY fosfomycin tromethamine 3 gram packet 1 packet PO Q3D PRN (Reason: bladder infections) Qty: 2 6RF fosfomycin tromethamine 3 gram packet 1 packet PO Q3D PRN (Reason: bladder infections) Qty: 2 6RF acetaminophen 500 mg capsule 500 - 1,000 mg PO Q6H MDD 4000mg per day PRN (Reason: pain) Qty: 100 0RF clobetasol 0.05 % ointment 1 g topical 2XW PRN (Reason: lichen sclerosis) omeprazole 40 mg capsule,delayed release(DR/EC) 40 mg PO DAILY triamcinolone acetonide 0.1 % cream 1 applic topical BID PRN (Reason: rash) Qty: 80 1RF pilocarpine HCl 5 mg tablet 5 mg PO TID Qty: 270 4RF gabapentin 6%/ketamine 8%/liodcaine 2.5% liposomal cream with baclofen 2% cream See Rx Instructions topical .four time daily PRN (Reason: pain) Qty: 60 0RF Rx Instructions: ONE APPLICATION topically FOUR TIME DAILY PRN; hand faxed rx to [facility] [phone] 60 grams with 1 refill sent to scanning furosemide 20 mg tablet 20 mg PO BID PRN (Reason: edema) Qty: 180 0RF Prolia 60 mg/mL syringe 60 mg subcut [id number] Qty: 1 0RF prednisone 10 mg tablet 10 mg PO Q OTHER DAY Qty: 45 3RF warfarin 2.5 mg tablet 1.25 - 2.5 mg PO DAILY Qty: 90 0RF Protocol: Dose Management Condition: Tuesday Dose/Route: 2.5 mg Instruction: 1 x 2.5 mg tablet Condition: Tuesday Dose/Route: 2.5 mg Instruction: 1 x 2.5 mg tablet Condition: Tuesday Dose/Route: 2.5 mg Instruction: 1 x 2.5 mg tablet Condition: Tuesday Dose/Route: 2.5 mg Instruction: 1 x 2.5 mg tablet Condition: Dose/Route: 2.5 mg Instruction: 1 x 2.5 mg tablet Condition: Tuesday Dose/Route: 2.5 mg Instruction: 1 x 2.5 mg tablet Condition: Tuesday Dose/Route: 2.5 mg Instruction: 1 x 2.5 mg tablet Protocol Text: Adjustment Start Date: Tuesday08/20/24 INR Value: 2.7 INR Date: 08/20/24 Recheck Date: 08/27/24 Rx Instructions: Take 1.25 mg on Tuesday/Tuesday and 2.5 mg ROW sennosides [Senna Lax] 8.6 mg tablet 8.6 mg PO BID PRN (Reason: constipation) Qty: 180 1RF nitrofurantoin macrocrystal 100 mg capsule 100 mg PO BID Qty: 14 0RF Rx Instructions: must administer with a meal/food Follow Up/Referrals: Jose Napier PA-C [Primary Care Provider] - Stand Alone Forms: [facility], Inceal Info Instructions
[2024-08-26] MEDS: LIDOCAINE 1%-EPI 1:100,000 20 ML INFILTRATI (21:41)
[2024-08-26] MEDS: SILVER NITRATE APPLICATOR 1 EACH STICK..EA. TOPICAL (21:41)
[2024-08-26] MEDS: OXYMETAZOLINE 0.05% NASAL SPRAY 1 SPRAY NOSTRIL-B (21:42)
[2024-08-26] MEDS: TRANEXAMIC ACID 100 MG/ML INJ 1000 MG TOPICAL (21:42)
--- OUTSIDE RECORDS SUMMARY | 2024-08-26 23:08 | XMS_ITS | Continuity of Care Document ---
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, [address], [place], [place], [id number] , [place]. [phone] Office/Outpat ient Visit,Est, Mod [facility], [address], [place], [place], [id number], [place] tel:[phone] [facility] Other forms of scoliosis, thoracolumbar regionL2 wedge compression fracture, initial encounter for closed fractureSpondy lolisthesis, lumbar region 0 [facility], [address], [place], [place], [id number] , [place]. tel:[phone] Referring Provider: Rakel Arvizu, [email or web address] [facility] [address] [place], [address]. tel:[phone] Office/Outpat ient Visit,Est, Mod [facility], [address], [facility] [place], [id number], [place] tel:[phone] [facility] L2 wedge compression fracture, initial encounter for closed fractureOther forms of scoliosis, thoracolumbar regionSpondylo listhesis, lumbar region 0 Kwame Kerr. [facility], [address], [place], [place], [id number] , . tel:[phone] Referring Provider: Rakel Arvizu [facility] [address], [address]. tel:[phone] Office/Outpat ient Visit,[facility], [facility], [address], [facility] [place], [id number], [place] tel:[phone] [facility] L2 wedge compression fracture, initial encounter for closed fractureOther forms of scoliosis, thoracolumbar regionSpondylo listhesis, lumbar region 0 Kwame Kerr. [facility], [address], [place], [place], [address] , [place]. tel:[phone] Referring Provider: Rakel Arvizu [facility] [address], [address]. tel:[phone] Family History Family Member Type Diagnosis Age At Onset No Information Payers Payer name Insurance type Covered green party ID Authoralethaa tishannon(s) Medicare MB [id number] [facility] [id number] [facility] [id number] Social History Type Description Quantity Date Captured [...]
--- OUTSIDE RECORDS SUMMARY | 2024-08-26 23:08 | XMS_ITS | Continuity of Care Document ---
Author Organization [facility] Address [address] [place] [address] Phone Care Team Providers Care Recreation Worker Name Role Phone Helder Medina MD [...] Antibodies Dna Antibody, Single Strand Dna Antibody, [place] Nuclear Antigen Antibodies Rheumatoid Factor, IGM Rheumatoid Factor, IGG, IGA Advance Directives Directive Yes / No Effective Date File Name No Information Encounters Encounter Description Practice Location Reason(s) For Visit Diagnoses Date Provider Providers Copied on Encounter Office/Outpa tient Visit, Est [facility], [address], [place], [address], [place] tel:[phone] [facility], Sjogren syndrome w/ inflammatory arthritis Apr-2 3 4 Lebedoff Helder. [address], [place], [place], [facility], [place]. tel:[phone] Referring Provider: Helder Jain, [address], [place], [address]. tel:[phone] [facility], [address], [place], [address], [place] tel:[phone] [facility], No Information Oct- 0 4 Lebedoff Helder. [address], [place], [address], [place]. tel:[phone] Referring Provider: Helder Jain, [address], [place], [place], [facility]. tel:[phone] Office/Outpa tient Visit, Est [facility], [address], [place], [address], [place] tel:[phone] [facility], Sjogren syndrome w/ inflammatory arthritisPain in left foot Oct- 0 4 Lebedoff Helder. [address], [place], [address], [place]. tel:[phone] Referring Provider: Helder Jain, [address], [place], [place], [facility]. tel:[phone] Office/Outpa tient Visit, Est [facility], [address], [place], [address], [place] tel:[phone] [facility], Sjogren syndrome w/ inflammatory arthritisPrim mauri osteoarthriti s, right hand Apr-0 4 3 Lebedoff Helder. [address], [place], [address], [place]. tel:[phone] Referring Provider: Helder Jain, [address], [place], [address]. tel:[phone] Office/Outpa tient Visit, Est [facility], [address], [place], [address], [place] tel:[phone] [facility], Sicca syndrome, unspecifiedWe akness 3 Lebedoff Helder. [address], [place], [address], [place]. tel:[phone] Referring Provider: Helder Jain, [address], [place], [address]. tel:[phone] Office/Outpa tient Visit, Est [facility], [address], [place], [address], [place] tel:[phone] [facility], Sicca syndrome, unspecifiedPa in in left shoulder 2 Lebedoff Helder. [address], [place], [address], [place]. tel:[phone] Referring Provider: Helder Jain, [address], [place], [address]. tel:[phone] Office/Outpa tient Visit, Est [facility], [address], [place], [address], [place] tel:[phone] [facility], Sicca syndrome, unspecifiedDy spnea 2 Lebedoff Helder. [address], [place], [address], [place]. tel:[phone] Referring Provider: Helder Jain, [address], [place], [address]. tel:[phone] Office/Outpa tient Visit, Est [facility], [address], [place], [address], [place] tel:[phone] [facility], Sicca syndrome, unspecifiedOt her assisted (current) drug therapyPrimar y OA of right handDyspnea 1 Adam Pendleton. [address], [place], [address], [place]. tel:[phone] Referring Provider: Helder Jain, [address], [place], [address]. tel:[phone] Office/Outpa tient Visit, New [facility], [address], [place], [address], [place] tel:[phone] [facility], Sicca syndrome, unspecifiedPa in in rt ankleOther technician terminal and repeater (current) drug therapy 1 Adam Pendleton. [address], [place], [address], [place]. tel:[phone] Referring Provider: Helder Jain, [address], [place], [address]. tel:[phone] [facility], [address], [place], [address], [place] tel:[phone] [facility] No Information 1 Mo Sullivan. [facility] [address] [facility] [address], [place], [address], [place]. tel:[phone] Family History Family Member Type Diagnosis Age At Onset No Information Immunizations Vaccine Date Status Comments COVID-19 Moderna administered Source: Ot er Provider COVID-19 Pfizer administered Note: 1 ; Source: Other Provider Payers Payer name Insurance type Covered republican ID Authoriza tion(s) [employer] Medicare Adv [id number] MB [id number] Social History Type Description Quantity Date Captured Comments Alcohol Use Details Caffeine Use Details Tobacco Use Status Current non-smoker Smoking Status Never smoker She gabi es in [place] with her . She is retired. 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 This appears to be well controlled currently. Ideally, this would not have been treated with technician terminal and repeater prednisone, but as she has been on [...]
--- OUTSIDE RECORDS SUMMARY | 2024-08-26 23:08 | XMS_ITS | Clinical Summary ---
Author Organization [facility] Address [address] [place] [address] Care Team Providers Care Criminal Judge Name Role Phone Kd Restrepo MD Unavailable [phone] Jose Napier PANettieC Primary Care Provider [phone] Charlotte Smith MD Unavailable [phone] Charlotte Anderson MD Unavailable [phone] Allergies Active Allergy Reactions Criticality Noted Date Comments Amoxicillin 01/19/2007 Aspirin Rash,Itching 01/20/2006 Atorvastatin Myalgia 12/27/2014 Blood-Group Specific Substance Other - Describe In Comment Field High 09/01/2016 Patient has Anti-D. Blood product orders may be delayed. Draw one red top and two purple top tubes for all Type and Screen/Type and Crossmatch orders. O-Tcyn-Ufaussxgv-Propol-Eld erb *Unknown 02/28/2024 Ciprofloxacin Rash 05/31/2012 Clindamycin [...] Problem Noted Date Diagnosed Date Atherosclerosis of [place] ar teries of left leg with ulceration [...] Date Anticoagulation monitoring, INR range 2-3 [Z79.01]; [place] Target 2.5-3.0 12/06/2016 1 Pessary maintenance 02/25/2016 [...] Department Care Team Description 08/22/2024 11:00 AM GAMING WORKER Office Visit 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 [address] [place] [address] Adelaide Eid MD Results 06/21/2024 8:44 AM GAMING WORKER - 06/21/2024 11:01 AM GAMING WORKER Hospital Encounter [facility] [address] [place] [address] Adelaide Eid MD Olson, Jeffrey John, MD Nonrheumatic mitral valve regurgitation Discharge Disposition: Home Self Care 06/21/2024 Travel 06/18/2024 Telephone [facility] [address] [facility] [address] [place] [address] Adelaide Eid MD Pre Procedure 06/08/2024 10:30 AM GAMING WORKER Office Visit [facility] [address] [place] [address] Adelaide Eid MD Follow Up 06/07/2024 Travel from Last 3 Months Immunizations Name Administration Dates Next Due AMB INFLUENZA IIV3 (AGE 65+ YRS) PF (Flu Clinic Only) 03/23/2017 AMB Influenza, IIV3 (Age >=3 years) Preserve Free (Flu Clinic Only) 04/08/2009 AMB Influenza, IIV3 (Age >=3 years)(Flu Clinic Only) 04/06/2013,04/16/2011,04/24/2008 COVID-19 vaccine (Voxxter NTSurround App 30mcg/0.3mL) PF, MDV 09/02/2020,08/12/2020 Influenza A (H1N1), [...] on file Legal Sex Female 5:25 AM GAMING WORKER Gender Identity Not on file Sexual Orientation [...] Comments Blood Pressure 186/81 08/22/2024 11:03 AM GAMING WORKER right arm normal high Pulse 66 08/22/2024 11:03 AM GAMING WORKER Temperature 36.4 C (97.6 F) 06/21/2024 9:38 AM GAMING WORKER Respiratory Rate 14 06/21/2024 10:3 1 AM GAMING WORKER Oxygen Saturation 100% 08/22/2024 11: 03 AM GAMING WORKER Inhaled Oxygen Concentration - - Weight 57.6 kg (126 lb 15.8 oz) 08/22/2024 11:01 AM GAMING WORKER Height 149.9 cm (4' 11.02) 08/22/2024 11:01 AM GAMING WORKER Body Mass Index 25.63 08/22/2024 11:01 AM GAMING WORKER Plan of Treatment Upcoming Encounters Date Type Department Care Team (Late st Contact Info) Description 08/30/2024 10:00 AM GAMING WORKER Office Visit [facility] [address], [place] [phone] [place] [address] [facility] [place], [place] [phone] Health Maintenance Due Date Last Done Comments [...] history exists Medical Devices Implanted Type Area Roster Clerk Device Identifier Shelf Expiration Date Model / Serial / Lot Lead Kit 4.32mm Spacing 28cm Length Interstim - [id number] Implanted:Qty: 1 on 04/01/2020 by Charlotte Smith MD at [facility] N/A: Sacrum [employer] Pain Therapy 09/30/2021 [id number] / / [id number] Stimulator 7.7mm 14cc Interstim Ii - [id number] Implanted:Qty: 1 on 04/01/2020 by Charlotte Smith MD at [facility] N/A: Sacrum Medtr[employer] Pain Therapy 03/31/2021 [id number]# / [id number] / Description:PIN [id number] Procedures Procedure Name Priority Date/Time Associated Diagnosis Comments US ARTERIAL LOWER EXTREMITY BILATERAL Routine 08/22/2024 10:16 AM GAMING WORKER 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 (HC) US ANKLE BRACHIAL INDEX BILATERAL Routine 08/22/2024 10:15 AM GAMING WORKER 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 (HC) ECHO VICTOR M WO CONTRAST W COLOR W LTD DOPPLER Routine 06/21/2024 11:15 AM GAMING WORKER Nonrheumatic mitral valve regurgitation XR DXA BONE DENSITY 2 SITES AXIAL Routine 07/02/2019 11:48 AM GAMING WORKER Osteopenia of multiple sites from Last 3 Months or Most Recently Relevant to Health Maintenance Results * US ARTERIAL LOWER EXTREMITY BILATERAL (08/22/2024 10:16 AM GAMING WORKER) Anatomical Region Laterality Modality LEGS, LEG L, LEG R Ultrasound 08/22/2024 8:16 AM GAMING WORKER Narrative 08/22/2024 1:05 PM GAMING WORKER VASCULAR ULTRASOUND REPORT RODERICK HEATON : 1940 Study Date: 08/22/2024 8:16:13 AM Age: 84 years Tech: LMS/EMS Gender: F Referring MD: MARCUS CARRILLO Site: [facility] Study performed: Lower [...] +--------+-----+ EIA DST 91 +--------+ + +--------+-----+ MOTOR EXPERT DST 98 +--------+ + +--------+-----+ PFA 133 +--------+ + +--------+-----+ SFA PRX 109 +--------+ + +--------+-----+ SFA MID 56 +--------+ + +--------+-----+ SFA DST 397 51 75-99% 7.8 +--------+ + +--------+-----+ COLLIN PRX 89 +--------+ + +--------+-----+ COLLIN DST 41 +--------+ + +--------+-----+ TPT 160 41 50-74% 3.9 +--------+ + +--------+-----+ SWITCH BOX INSTALLER DST 55 +--------+ + +--------+-----+ LAXMI PRX 46 +--------+ + +--------+-----+ LAXMI DST -21 +--------+ + +--------+-----+ DPA 115 75-99% 4.6 +--------+ + +--------+-----+ +--------+ + LEFT Velocity cm/s +--------+ + EIA DST 110 +--------+ + MOTOR EXPERT DST 104 +--------+ + PFA 76 +--------+ + SFA PRX 93 +--------+ + SFA MID 92 +--------+ + SFA DST 74 +--------+ + COLLIN PRX 80 +--------+ + COLLIN DST 46 +--------+ + TPT 72 +--------+ + SWITCH BOX INSTALLER DST 17 +--------+ + LAXMI PRX 65 [...] Accreditation Commission (IAC/Vascular), [email or web address] Report generated by April[employer]. Final Procedure Note Wang Dela Cruz MD - 08/22/2024 VASCULAR ULTRASOUND REPORT RODERICK HEATON : 1940 Study Date: 08/22/2024 8:16:13 AM Age: 84 years Tech: LMS/EMS Gender: F Referring MD: MARCUS CARRILLO Site: [facility] Study performed: Lower [...] +--------+-----+ EIA DST 91 +--------+ + +--------+-----+ MOTOR EXPERT DST 98 +--------+ + +--------+-----+ PFA 133 +--------+ + +--------+-----+ SFA PRX 109 +--------+ + +--------+-----+ SFA MID 56 +--------+ + +--------+-----+ SFA DST 397 51 75-99% 7.8 +--------+ + +--------+-----+ COLLIN PRX 89 +--------+ + +--------+-----+ COLLIN DST 41 +--------+ + +--------+-----+ TPT 160 41 50-74% 3.9 +--------+ + +--------+-----+ SWITCH BOX INSTALLER DST 55 +--------+ + +--------+-----+ LAXMI PRX 46 +--------+ + +--------+-----+ LAXMI DST -21 +--------+ + +--------+-----+ DPA 115 75-99% 4.6 +--------+ + +--------+-----+ +--------+ + LEFT Velocity cm/s +--------+ + EIA DST 110 +--------+ + MOTOR EXPERT DST 104 +--------+ + PFA 76 +--------+ + SFA PRX 93 +--------+ + SFA MID 92 +--------+ + SFA DST 74 +--------+ + COLLIN PRX 80 +--------+ + COLLIN DST 46 +--------+ + TPT 72 +--------+ + SWITCH BOX INSTALLER DST 17 +--------+ + LAXMI PRX 65 [...] theIntersocietal Accreditation Commission (IAC/Vascular),[email or web address] Report generated by April[employer]. Final us Marcus WILLS US Final Resu lt * US ANKLE BRACHIAL INDEX BILATERAL (08/22/2024 10:15 AM GAMING WORKER) Anatomical Region Laterality Modality ANKLES, ANKLE L, ANKLE R Ultraso und 08/22/2024 8:31 AM GAMING WORKER Narrative 08/22/2024 12:32 PM GAMING WORKER VASCULAR ULTRASOUND REPORT RODERICK HEATON : 1940 Study Date: 08/22/2024 8:31:24 AM Age: 84 years Tech: LMS Gender: F Referring MD: MARCUS CARRILLO Site: [facility] Study performed: Lower extremity resting MINOR, [...] 190 Index +-----+ +--------+ +-----+ 1.18 226 SWITCH BOX INSTALLER 162 0.84 +-----+ +--------+ +-----+ 1.14 218 DPA 214 1.11 +-----+ +--------+ +-----+ 0.60 116 Digit 1 136 0.71 +-----+ +--------+ +-----+ Wang Dela Cruz MD. Electronically signed on 08/22/2024 12:32:38 PM This study was performed and interpreted by a service accredited by the Intersocietal Accreditation Commission (IAC/Vascular), [email or web address] Report generated by April[employer]. Final Procedure Note Wang Dela Cruz MD - 08/22/2024 VASCULAR ULTRASOUND REPORT RODERICK HEATON : 1940 Study Date: 08/22/2024 8:31:24 AM Age: 84 years Tech: LMS Gender: F Referring MD: MARCUS CARRILLO Site: [facility] Study performed: Lower [...] 190 Index +-----+ +--------+ +-----+ 1.18 226 SWITCH BOX INSTALLER 162 0.84 +-----+ +--------+ +-----+ 1.14 218 DPA 214 1.11 +-----+ +--------+ +-----+ 0.60 116 Digit 1 136 0.71 +-----+ +--------+ +-----+ Wang Dela Cruz MD. Electronically signed on 08/22/2024 12:32:38 PM This study was performed and interpreted by a service accredited by theIntersocietal Accreditation Commission (IAC/Vascular),[email or web address] Report generated by [employer]. Final us Marcus WILLS US Final Resu lt * ECHO VICTOR M WO CONTRAST W COLOR W LTD DOPPLER (06/21/2024 11:15 AM GAMING WORKER) EJECTION FRACTION 55-60% PROSOLV Anatomical Region Laterality Modality Ultrasound, Ultr asound, Other 06/21/2024 9:54 AM GAMING WORKER Narrative 06/21/2024 12:23 [place] [address] Main: [email or web address] Transesophageal Echo Report RODERICK HEATON Aysha ID: [id number] Age: 83 : 1940 Ordering Provider: ADELAIDE EID Exam Date: 06/21/2024 09:54 Gender: F Manager Commodities: RES Height: 59 in BSA: 1.54 m [...] Aortic Root ZScore: -0.94 David Montana MD [facility] Accredited Site (Electronically Signed) Final Date: 21 June 2024 12:22 Amended: 21 June 2024 12:25 ICD-10 Codes: I34.0 Procedure Note David Montana MD - 06/21/2024 [place] [address] Main: [email or web address] Transesophageal Echo Report RODERICK HEATON Namrussell ID: [id number] Age: 83 : 1940 Ordering Provider:ADELAIDE EID Exam Date: 06/21/2024 09:54 Gender: F Manager Commodities: RES Height: 59 in BSA: 1.54 m [...] Aortic Root ZScore: -0.94 David Montana MD [facility] Accredited Site (Electronically Signed) Final Date: 21 June 2024 12:22 Amended: 21 June 2024 12:25 ICD-10 Codes: I34.0 Adelaide Eid MD ECHO ORD Edited R esult - Final * (ABNORMAL) XR DXA BONE DENSITY 2 SITES AXIAL (07/02/2019 11:48 AM GAMING WORKER) Anatomical Region Laterality Modality Spine, HIPS, HIPL, HIPR Other Narrative 07/06/2019 11:01 AM GAMING WORKER Please see scanned document for results of this study. us Rakel Bairese Geeta DO DEXA Final Resul t from Last 3 Months or Most Recently Relevant to Health Maintenance Insurance MEDICARE PART A HB ONLY [employer] [place] [address] Advance Directives Documents on File Type Date Recorded Patient Lawn Technician Expl anation Healthcare Directive 05/04/2024 5:29 AM [...] 8:45 AM 09/01/2016 4:04 PM Care Teams Criminal Judge Relationship Specialty Start Date End Date Jose Napier PA-C [facility] [place] [address] PCP - General Physician Abrading Machine Tender 03/01/24 Kd Restrepo MD Endocrinology 11/24/11 Charlotte Smith MD [address] [place] [address] Surgery - Urology 03/01/24 Charlotte Anderson MD [address] [place] [address] Surgery - Vascular 03/21/24
== END 2024-08-27 00:20 | disposition home or self-care (01) ==
PROVIDERS: Emergency Provider Emergency Medicine; PCP Physician Assistant Medical
DX: R04.0 Epistaxis (principal); Z79.01 Long term (current) use of anticoagulants
CPT/HCPCS: 99282; 99283; A9270

== ENCOUNTER 2024-08-28 13:50 | Outpatient (CLI) | payer OTHER, SELFPAY | END 2024-08-28 13:51 | disposition home or self-care (01) | LOC: NFLDREF 08-30 04:26 | PROVIDERS: PCP Physician Assistant Medical; Referring Provider Physician Assistant Medical; Visit Provider Physician Assistant Medical | DX: E03.9 Hypothyroidism, unspecified (principal); I10 Essential (primary) hypertension; E78.2 Mixed hyperlipidemia | CPT/HCPCS: 80053; 80061; 84443 ==

== ENCOUNTER 2024-08-31 09:53 | Outpatient (CLI) | payer OTHER, SELFPAY | END 2024-08-31 09:54 | disposition home or self-care (01) | LOC: WOUND 09:54 | PROVIDERS: PCP Physician Assistant Medical; Visit Provider Physician Assistant | DX: I87.2 Venous insufficiency (chronic) (peripheral) (principal); I73.9 Peripheral vascular disease, unspecified; I89.0 Lymphedema, not elsewhere classified; L97.322 Non-pressure chronic ulcer of left ankle with fat layer exposed | CPT/HCPCS: 97597 ==

== ENCOUNTER 2024-09-07 09:56 | Outpatient (CLI) | payer OTHER, SELFPAY | END 2024-09-07 09:57 | disposition home or self-care (01) | LOC: WOUND 09:56 | PROVIDERS: PCP Physician Assistant Medical; Visit Provider Nurse Practitioner Family | DX: I87.2 Venous insufficiency (chronic) (peripheral) (principal); I73.9 Peripheral vascular disease, unspecified; I89.0 Lymphedema, not elsewhere classified; L97.322 Non-pressure chronic ulcer of left ankle with fat layer exposed | CPT/HCPCS: 15271; Q4101 ==

== ENCOUNTER 2024-09-14 09:55 | Outpatient (CLI) | payer OTHER, SELFPAY | END 2024-09-14 09:56 | disposition home or self-care (01) | LOC: WOUND 09:55 | PROVIDERS: PCP Physician Assistant Medical; Visit Provider Nurse Practitioner Family | DX: I87.2 Venous insufficiency (chronic) (peripheral) (principal); I73.9 Peripheral vascular disease, unspecified; I89.0 Lymphedema, not elsewhere classified; L97.322 Non-pressure chronic ulcer of left ankle with fat layer exposed | CPT/HCPCS: G0463 ==

== ENCOUNTER 2024-09-21 09:54 | Outpatient (CLI) | payer OTHER, SELFPAY | END 2024-09-21 09:55 | disposition home or self-care (01) | LOC: WOUND 09:55 | PROVIDERS: PCP Physician Assistant Medical; Visit Provider Nurse Practitioner Family | DX: I87.2 Venous insufficiency (chronic) (peripheral) (principal); I73.9 Peripheral vascular disease, unspecified; I89.0 Lymphedema, not elsewhere classified; L97.322 Non-pressure chronic ulcer of left ankle with fat layer exposed | CPT/HCPCS: 97597 ==

== ENCOUNTER 2024-09-28 09:56 | Outpatient (CLI) | payer OTHER, SELFPAY | END 2024-09-28 09:57 | disposition home or self-care (01) | LOC: WOUND 09:56 | PROVIDERS: PCP Physician Assistant Medical; Visit Provider Family Medicine | DX: I87.2 Venous insufficiency (chronic) (peripheral) (principal); I73.9 Peripheral vascular disease, unspecified; I89.0 Lymphedema, not elsewhere classified; L97.322 Non-pressure chronic ulcer of left ankle with fat layer exposed | CPT/HCPCS: 11042 ==

== ENCOUNTER 2024-10-05 09:51 | Outpatient (CLI) | payer OTHER, SELFPAY | END 2024-10-05 09:52 | disposition home or self-care (01) | LOC: WOUND 09:52 | PROVIDERS: PCP Physician Assistant Medical; Visit Provider Nurse Practitioner Family | DX: I87.2 Venous insufficiency (chronic) (peripheral) (principal); I73.9 Peripheral vascular disease, unspecified; I89.0 Lymphedema, not elsewhere classified; L97.322 Non-pressure chronic ulcer of left ankle with fat layer exposed; R73.03 Prediabetes | CPT/HCPCS: 97597 ==

== ENCOUNTER 2024-10-12 09:53 | Outpatient (CLI) | payer OTHER, SELFPAY | END 2024-10-12 09:54 | disposition home or self-care (01) | LOC: WOUND 09:53 | PROVIDERS: PCP Physician Assistant Medical; Visit Provider Nurse Practitioner Family | DX: I87.2 Venous insufficiency (chronic) (peripheral) (principal); I73.9 Peripheral vascular disease, unspecified; I89.0 Lymphedema, not elsewhere classified; L97.322 Non-pressure chronic ulcer of left ankle with fat layer exposed; R73.03 Prediabetes; Z79.52 Long term (current) use of systemic steroids | CPT/HCPCS: 11042 ==

== ENCOUNTER 2024-10-19 09:52 | Outpatient (CLI) | payer OTHER, SELFPAY | END 2024-10-19 09:53 | disposition home or self-care (01) | LOC: WOUND 09:52 | PROVIDERS: PCP Physician Assistant Medical; Visit Provider Nurse Practitioner Family | DX: I87.312 Chronic venous hypertension (idiopathic) with ulcer of left lower extremity (principal); I87.2 Venous insufficiency (chronic) (peripheral); I89.0 Lymphedema, not elsewhere classified; I73.9 Peripheral vascular disease, unspecified; L97.322 Non-pressure chronic ulcer of left ankle with fat layer exposed | CPT/HCPCS: 97597 ==

== ENCOUNTER 2024-10-26 09:22 | Outpatient (CLI) | payer OTHER, SELFPAY | END 2024-10-26 09:23 | disposition home or self-care (01) | LOC: WOUND 09:22 | PROVIDERS: PCP Physician Assistant Medical; Visit Provider Physician Assistant | DX: I87.312 Chronic venous hypertension (idiopathic) with ulcer of left lower extremity (principal); I87.2 Venous insufficiency (chronic) (peripheral); I89.0 Lymphedema, not elsewhere classified; I73.9 Peripheral vascular disease, unspecified; L97.322 Non-pressure chronic ulcer of left ankle with fat layer exposed | CPT/HCPCS: 97597 ==

== ENCOUNTER 2024-11-02 08:22 | Outpatient (CLI) | payer OTHER, SELFPAY | END 2024-11-02 08:23 | disposition home or self-care (01) | LOC: WOUND 08:22 | PROVIDERS: PCP Physician Assistant Medical; Visit Provider Nurse Practitioner Family | DX: I87.312 Chronic venous hypertension (idiopathic) with ulcer of left lower extremity (principal); I87.2 Venous insufficiency (chronic) (peripheral); I73.9 Peripheral vascular disease, unspecified; I89.0 Lymphedema, not elsewhere classified; L97.322 Non-pressure chronic ulcer of left ankle with fat layer exposed; R73.03 Prediabetes | CPT/HCPCS: 15271; Q4101 ==

== ENCOUNTER 2024-11-09 09:59 | Outpatient (CLI) | payer OTHER, SELFPAY | END 2024-11-09 10:00 | disposition home or self-care (01) | LOC: WOUND 10:00 | PROVIDERS: PCP Physician Assistant Medical; Visit Provider Nurse Practitioner Family | DX: I87.312 Chronic venous hypertension (idiopathic) with ulcer of left lower extremity (principal); I87.2 Venous insufficiency (chronic) (peripheral); I89.0 Lymphedema, not elsewhere classified; I73.9 Peripheral vascular disease, unspecified; L97.322 Non-pressure chronic ulcer of left ankle with fat layer exposed; R73.03 Prediabetes | CPT/HCPCS: G0463 ==

== ENCOUNTER 2024-11-16 09:58 | Outpatient (CLI) | payer OTHER, SELFPAY | END 2024-11-16 09:59 | disposition home or self-care (01) | LOC: WOUND 09:58 | PROVIDERS: PCP Physician Assistant Medical; Visit Provider Nurse Practitioner Family | DX: I87.312 Chronic venous hypertension (idiopathic) with ulcer of left lower extremity (principal); I87.2 Venous insufficiency (chronic) (peripheral); I73.9 Peripheral vascular disease, unspecified; I89.0 Lymphedema, not elsewhere classified; L97.812 Non-pressure chronic ulcer of other part of right lower leg with fat layer exposed | CPT/HCPCS: 97597 ==

== ENCOUNTER 2024-11-23 09:56 | Outpatient (CLI) | payer OTHER, SELFPAY | END 2024-11-23 09:57 | disposition home or self-care (01) | LOC: WOUND 09:56 | PROVIDERS: PCP Physician Assistant Medical; Visit Provider Physician Assistant | DX: I87.312 Chronic venous hypertension (idiopathic) with ulcer of left lower extremity (principal); I87.2 Venous insufficiency (chronic) (peripheral); I89.0 Lymphedema, not elsewhere classified; L97.322 Non-pressure chronic ulcer of left ankle with fat layer exposed; I73.9 Peripheral vascular disease, unspecified | CPT/HCPCS: 97597 ==

== ENCOUNTER 2024-11-30 09:54 | Outpatient (CLI) | payer OTHER, SELFPAY | END 2024-11-30 09:55 | disposition home or self-care (01) | LOC: WOUND 09:54 | PROVIDERS: PCP Physician Assistant Medical; Visit Provider Nurse Practitioner Family | DX: I87.312 Chronic venous hypertension (idiopathic) with ulcer of left lower extremity (principal); I87.2 Venous insufficiency (chronic) (peripheral); I73.9 Peripheral vascular disease, unspecified; I89.0 Lymphedema, not elsewhere classified; L97.322 Non-pressure chronic ulcer of left ankle with fat layer exposed | CPT/HCPCS: G0463 ==

== ENCOUNTER 2024-12-07 10:00 | Outpatient (CLI) | payer OTHER, SELFPAY | END 2024-12-07 10:01 | disposition home or self-care (01) | LOC: WOUND 10:00 | PROVIDERS: PCP Physician Assistant Medical; Visit Provider Nurse Practitioner Family | DX: I87.312 Chronic venous hypertension (idiopathic) with ulcer of left lower extremity (principal); I87.2 Venous insufficiency (chronic) (peripheral); I73.9 Peripheral vascular disease, unspecified; I89.0 Lymphedema, not elsewhere classified; L97.322 Non-pressure chronic ulcer of left ankle with fat layer exposed | CPT/HCPCS: 97597 ==

== ENCOUNTER 2024-12-14 09:56 | Outpatient (CLI) | payer OTHER, SELFPAY | END 2024-12-14 09:57 | disposition home or self-care (01) | LOC: WOUND 09:56 | PROVIDERS: PCP Physician Assistant Medical; Visit Provider Nurse Practitioner Family | DX: I87.312 Chronic venous hypertension (idiopathic) with ulcer of left lower extremity (principal); I87.2 Venous insufficiency (chronic) (peripheral); I73.9 Peripheral vascular disease, unspecified; I89.0 Lymphedema, not elsewhere classified; L97.322 Non-pressure chronic ulcer of left ankle with fat layer exposed | CPT/HCPCS: 97597 ==

== ENCOUNTER 2024-12-28 09:58 | Outpatient (CLI) | payer OTHER, SELFPAY | END 2024-12-28 09:59 | disposition home or self-care (01) | LOC: WOUND 09:58 | PROVIDERS: PCP Physician Assistant Medical; Visit Provider Nurse Practitioner Family | DX: I87.312 Chronic venous hypertension (idiopathic) with ulcer of left lower extremity (principal); I87.2 Venous insufficiency (chronic) (peripheral); I73.9 Peripheral vascular disease, unspecified; I89.0 Lymphedema, not elsewhere classified; L97.328 Non-pressure chronic ulcer of left ankle with other specified severity; Z79.52 Long term (current) use of systemic steroids | CPT/HCPCS: G0463 ==

== ENCOUNTER 2025-01-11 09:44 | Outpatient (CLI) | payer OTHER, SELFPAY | END 2025-01-11 09:45 | disposition home or self-care (01) | LOC: WOUND 09:45 | PROVIDERS: PCP Physician Assistant Medical; Visit Provider Nurse Practitioner Family | DX: I87.302 Chronic venous hypertension (idiopathic) without complications of left lower extremity (principal); I87.2 Venous insufficiency (chronic) (peripheral); I73.9 Peripheral vascular disease, unspecified; I89.0 Lymphedema, not elsewhere classified; R73.03 Prediabetes; Z79.52 Long term (current) use of systemic steroids | CPT/HCPCS: G0463 ==

== ENCOUNTER 2025-01-25 09:25 | Outpatient (CLI) | payer OTHER, SELFPAY | END 2025-01-25 09:26 | disposition home or self-care (01) | LOC: NFLDREF 01-28 16:09 | PROVIDERS: PCP Physician Assistant Medical; Referring Provider Physician Assistant Medical | DX: N39.0 Urinary tract infection, site not specified (principal) | CPT/HCPCS: 87086 ==

== ENCOUNTER 2025-03-20 08:23 | Outpatient (CLI) | payer OTHER, SELFPAY | END 2025-03-20 08:24 | disposition home or self-care (01) | LOC: WOUND 08:23 | PROVIDERS: PCP Physician Assistant Medical; Visit Provider Nurse Practitioner Family | DX: I73.9 Peripheral vascular disease, unspecified (principal); I89.0 Lymphedema, not elsewhere classified; L97.522 Non-pressure chronic ulcer of other part of left foot with fat layer exposed; R73.03 Prediabetes | CPT/HCPCS: 11042; G0463 ==

== ENCOUNTER 2025-03-27 08:14 | Outpatient (CLI) | payer OTHER, SELFPAY | END 2025-03-27 08:15 | disposition home or self-care (01) | LOC: WOUND 08:14 | PROVIDERS: PCP Physician Assistant Medical; Visit Provider Nurse Practitioner Family | DX: I73.9 Peripheral vascular disease, unspecified (principal); I89.0 Lymphedema, not elsewhere classified; L97.522 Non-pressure chronic ulcer of other part of left foot with fat layer exposed; R73.03 Prediabetes | CPT/HCPCS: 97597 ==

== ENCOUNTER 2025-03-28 10:55 | Outpatient (CLI) | payer OTHER, SELFPAY ==
--- NOTE | 2025-03-28 11:00 | CRLHL7_ITS ---
For Patients: As a result of the Century Cures Act, medical imaging exams and procedure reports are released immediately into your electronic medical record. You may view this report before your referring provider. If you have questions, please contact your health care provider. Indication: Left 2nd toe pain Technique: Left foot 3 views Comparison: None Findings: No fracture. Narrowing and spurring at the 1st MTP joint. Vascular calcifications. Midfoot alignment is normal. Plantar calcaneal spur. Impression: No acute fracture. 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 Dictated by Yan Stewart MD @ 03/29/2025 12:06:48 PM (Electronically Signed)
== END 2025-03-28 10:56 | disposition home or self-care (01) ==
LOC: RAD 10:56
PROVIDERS: PCP Physician Assistant Medical; Visit Provider Nurse Practitioner Family
DX: L97.522 Non-pressure chronic ulcer of other part of left foot with fat layer exposed (principal); M79.675 Pain in left toe(s)
CPT/HCPCS: 73630

== ENCOUNTER 2025-04-04 10:49 | Outpatient (CLI) | payer OTHER, SELFPAY | END 2025-04-04 10:50 | disposition home or self-care (01) | LOC: WOUND 10:49 | PROVIDERS: PCP Physician Assistant Medical; Visit Provider Nurse Practitioner Family | DX: I73.9 Peripheral vascular disease, unspecified (principal); I89.0 Lymphedema, not elsewhere classified; L97.522 Non-pressure chronic ulcer of other part of left foot with fat layer exposed; R73.03 Prediabetes | CPT/HCPCS: 97597 ==

== ENCOUNTER 2025-04-05 13:43 | Outpatient (CLI) | payer OTHER, SELFPAY | END 2025-04-05 13:44 | disposition home or self-care (01) | LOC: LKVREF 13:44 | PROVIDERS: PCP Physician Assistant Medical; Visit Provider Podiatrist | DX: L08.9 Local infection of the skin and subcutaneous tissue, unspecified (principal) | CPT/HCPCS: 87070; 87205 ==

== ENCOUNTER 2025-04-10 08:10 | Outpatient (CLI) | payer OTHER, SELFPAY | END 2025-04-10 08:11 | disposition home or self-care (01) | LOC: WOUND 08:10 | PROVIDERS: PCP Physician Assistant Medical; Visit Provider Nurse Practitioner Family | DX: I73.9 Peripheral vascular disease, unspecified (principal); I89.0 Lymphedema, not elsewhere classified; L97.522 Non-pressure chronic ulcer of other part of left foot with fat layer exposed; R73.03 Prediabetes | CPT/HCPCS: G0463 ==

== ENCOUNTER 2025-04-17 08:17 | Outpatient (CLI) | payer OTHER, SELFPAY | END 2025-04-17 08:18 | disposition home or self-care (01) | LOC: WOUND 08:17 | PROVIDERS: PCP Physician Assistant Medical; Visit Provider Nurse Practitioner Family | DX: I73.9 Peripheral vascular disease, unspecified (principal); I89.0 Lymphedema, not elsewhere classified; L97.522 Non-pressure chronic ulcer of other part of left foot with fat layer exposed; R73.03 Prediabetes | CPT/HCPCS: G0463 ==

== ENCOUNTER 2025-04-23 12:41 | Outpatient (CLI) | payer OTHER, SELFPAY | END 2025-04-23 12:42 | disposition home or self-care (01) | LOC: FRMREF 12:42 | PROVIDERS: PCP Physician Assistant Medical; Visit Provider Physician Assistant Medical | DX: R19.7 Diarrhea, unspecified (principal) | CPT/HCPCS: 80053 ==

== ENCOUNTER 2025-04-24 08:07 | Outpatient (CLI) | payer OTHER, SELFPAY | END 2025-04-24 08:08 | disposition home or self-care (01) | LOC: WOUND 08:07 | PROVIDERS: PCP Physician Assistant Medical; Visit Provider Nurse Practitioner Family | DX: I73.9 Peripheral vascular disease, unspecified (principal); I89.0 Lymphedema, not elsewhere classified; L97.522 Non-pressure chronic ulcer of other part of left foot with fat layer exposed; R73.03 Prediabetes | CPT/HCPCS: 97597 ==

== ENCOUNTER 2025-04-26 16:10 | Outpatient (CLI) | payer OTHER, SELFPAY | END 2025-04-26 16:11 | disposition home or self-care (01) | LOC: NFLDREF 04-29 21:10 | PROVIDERS: PCP Physician Assistant Medical; Referring Provider Physician Assistant Medical; Visit Provider Physician Assistant Medical | DX: R19.7 Diarrhea, unspecified (principal) | CPT/HCPCS: 87493 ==

== ENCOUNTER 2025-05-01 08:14 | Outpatient (CLI) | payer OTHER, SELFPAY | END 2025-05-01 08:15 | disposition home or self-care (01) | LOC: WOUND 08:14 | PROVIDERS: PCP Physician Assistant Medical; Visit Provider Nurse Practitioner Family | DX: I73.9 Peripheral vascular disease, unspecified (principal); I89.0 Lymphedema, not elsewhere classified; L97.522 Non-pressure chronic ulcer of other part of left foot with fat layer exposed; R73.03 Prediabetes | CPT/HCPCS: G0463 ==

== ENCOUNTER 2025-05-08 08:13 | Outpatient (CLI) | payer OTHER, SELFPAY | END 2025-05-08 08:14 | disposition home or self-care (01) | PROVIDERS: PCP Physician Assistant Medical; Visit Provider Nurse Practitioner Family | DX: I73.9 Peripheral vascular disease, unspecified (principal); I89.0 Lymphedema, not elsewhere classified; L97.526 Non-pressure chronic ulcer of other part of left foot with bone involvement without evidence of necrosis; R73.03 Prediabetes | CPT/HCPCS: G0463 ==

== ENCOUNTER 2025-05-08 09:00 | Outpatient (CLI) | payer OTHER, SELFPAY ==
--- NOTE | 2025-05-08 09:00 | CRLHL7_ITS ---
For Patients: As a result of the Cures Act, medical imaging exams and procedure reports are released immediately into your electronic medical record. You may view this report before your referring provider. If you have questions, please contact your health care provider. Indication: NON PRESSURE CHRONIC ULCER Technique: Left foot 3 views Comparison: 03/28/2025 Findings: Plantar calcaneal spur is present. Vascular calcifications noted. Narrowing and spurring at the 1st metatarsophalangeal joint. No cortical destruction or periostitis. No acute fracture. No soft tissue gas. Impression: No evidence of osteomyelitis. Dictated by Yan Stewart MD @ 05/08/2025 9:25:03 AM (Electronically Signed)
== END 2025-05-08 09:01 | disposition home or self-care (01) ==
LOC: RAD 09:00
PROVIDERS: PCP Physician Assistant Medical; Visit Provider Nurse Practitioner Family
DX: L97.528 Non-pressure chronic ulcer of other part of left foot with other specified severity (principal)
CPT/HCPCS: 73630; G0463

== ENCOUNTER 2025-05-15 09:07 | Day surgery (SDC) | payer OTHER, SELFPAY ==
--- NOTE | 2025-05-15 09:16 | W.PM.PODPROC ---
Date of Procedure: 05/15/25 Time Seen by Provider: 09:16 Surgeon: Irasema Hinson DPM Co-Surgeon: Kd Palacio DPM Pre-op Diagnosis: 1. Osteomyelitis left 2nd digit Post-op Diagnosis: 1. Osteomyelitis left 2nd digit Type of Procedure: 1. Left 2nd digit toe amputation Procedure Description: After proper identification of the patient and surgical site, the left foot was prepped and draped in the usual sterile fashion. A local ankle block with 10 mL of 0.25% marcaine plain was administered for anesthesia. A racquet-type incision was made encompassing the base of the second toe at the level of the metatarsophalangeal joint. The incision was carried through skin and subcutaneous tissues down to the level of the joint capsule. All neurovascular structures were carefully identified and ligated or cauterized as necessary. The metatarsophalangeal joint was identified and disarticulated. The second digit was removed in total. This was sent to pathology for specimen. All nonviable and infected soft tissue was excised. The head of the second metatarsal was inspected and noted to be free of necrosis or osteomyelitic changes. The wound was irrigated copiously with sterile normal saline. Hemostasis was obtained. The capsule and subcutaneous tissues were reapproximated with [2-0 and 3-0 Vicryl] in a simple interrupted fashion, and the skin was closed with [4-0 nylon] using simple interrupted sutures. A sterile compressive dressing was applied. The tourniquet was released, and immediate capillary refill was noted to all remaining digits. The patient tolerated the procedure and anesthesia well, with stable vital signs throughout. The patient was transferred to the recovery area in stable condition. Anesthesia: MAC Estimated blood loss (mL): 10 Implants: none Specimens: specimen obtained, sent to pathology Disposition: same day
[2025-05-15 09:25] VITALS: BMI 24.0
[2025-05-15 09:45] VITALS: BP 178/84; PULSE 75; RESP 16; TEMP 36.7; O2SAT 99
[2025-05-15] MEDS: SODIUM CHLORIDE 0.9 % (FLUSH) 10 ML SYRINGE IVF (09:47)
[2025-05-15] MEDS: LACTATED RINGERS 1000 ML 1,000 ML 100 ML IV (09:48)
[2025-05-15] MEDS: BUPIVACAINE 0.25% 30 ML INJECTION (10:03)
[2025-05-15 10:40] VITALS: BP 141/66; PULSE 62; RESP 16; TEMP 36.9; O2SAT 94
--- NOTE | 2025-05-15 10:40 | P.ANES_ITS ---
Anesthesia Charges Start Date/Time Anesthesia Start Date: 05/15/25 Anesthesia Start Time: 09:53 Stop Date/Time Anesthesia Stop Date: 05/15/25 Anesthesia Stop Time: 10:38 Summary Extremes of Age - Over 70 or under 1: BACK FILLER OPERATOR Coding CPT Codes CPT Codes: ANESTH LOWER LEG BONE SURG - 18684 ([id number]) P3 - PATIENT W/SEVERE SYS DISEASE, QZ - BACK FILLER OPERATOR SVC W/O DISASSEMBLER PRODUCT BY Additional Codes: Summary - Extremes of Age - Over 70 or under 1: BACK FILLER OPERATOR ([id number])
--- NOTE | 2025-05-15 10:40 | W.ANESCHARGE ---
Anesthesia Charges Start Date/Time Anesthesia Start Date: 05/15/25 Anesthesia Start Time: 09:53 Stop Date/Time Anesthesia Stop Date: 05/15/25 Anesthesia Stop Time: 10:38 Summary Extremes of Age - Over 70 or under 1: CIGAR ROLLER Coding CPT Codes CPT Codes: ANESTH LOWER LEG BONE SURG - 76936 ([id number]) P3 - PATIENT W/SEVERE SYS DISEASE, QZ - CIGAR ROLLER SVC W/O NUTRITIONAL SERVICES HOST BY Additional Codes: Summary - Extremes of Age - Over 70 or under 1: CIGAR ROLLER ([id number])
[2025-05-15 10:55] VITALS: BP 154/84; PULSE 60; RESP 16; O2SAT 99
--- NOTE | 2025-05-15 11:11 | CRLHL7_ITS ---
For Patients: As a result of the Century Cures Act, medical imaging exams and procedure reports are released immediately into your electronic medical record. You may view this report before your referring provider. If you have questions, please contact your health care provider. Indication: Postop Technique: Three views left foot Comparison: 05/08/2025 IMPRESSION: Status post amputation of the 2nd toe. Plantar calcaneal spur. Vascular calcifications. Postop soft tissue swelling. Spurring at the 1st MTP joint. Dictated by Yan Stewart MD @ 05/15/2025 11:48:13 AM (Electronically Signed)
[2025-05-15 11:17] VITALS: BP 164/74; PULSE 70; RESP 16; O2SAT 98
--- NOTE | 2025-05-15 11:48 | SUR.PHASEII ---
Patient understands discharge instructions. She has no questions at this time.
== END 2025-05-15 12:15 | disposition home or self-care (01) ==
LOC: OR 09:08
PROVIDERS: PCP Physician Assistant Medical; Visit Provider Podiatrist
PROC: (CPT 28820; principal; 2025-05-15 10:30)
DX: M86.172 Other acute osteomyelitis, left ankle and foot (principal)
CPT/HCPCS: 28820; 01480; 73630; 99100; J0665; J1100; J2405; J2704; J3010; J7120

== ENCOUNTER 2025-06-11 11:21 | Outpatient (CLI) | payer OTHER, SELFPAY | END 2025-06-11 11:22 | disposition home or self-care (01) | LOC: NFLDREF 06-12 13:23 | PROVIDERS: PCP Physician Assistant Medical; Referring Provider Physician Assistant Medical; Visit Provider Family Medicine | DX: Z00.00 Encounter for general adult medical examination without abnormal findings (principal) | CPT/HCPCS: 80053 ==